=== PATIENT | female | born 1985 | race Caucasian/White ===

== ENCOUNTER 2016-09-07 20:36 | Emergency (ER) | payer OTHER ==
[2016-09-07 20:47] VITALS: RESP 16
[2016-09-07] MEDS ORDERED: SODIUM CHLORIDE 0.9% 1,000 ML IV STA (20:49)
--- NOTE | 2016-09-07 20:54 | ED ---
General Adult HPI - General Chief complaint: Overdose Stated complaint: Drug Overdose Time Seen by Provider: 09/07/16 20:46 Source: patient, EMS, RN notes reviewed Mode of arrival: EMS Limitations: no limitations - History of Present Illness Initial comments: Patient is a 31-year-old female presenting to emergency department for overdose. Patient believes she mixed fentanyl with heroin and then injected it. Patient was found unresponsive by EMS and provided Narcan. Patient then became responsive. Patient states she feels terrible and nauseated at this time. Patient admits to doing intravenous heroin previously. Patient denies suicidal thoughts or physical complaints. - Related Data Home Medications Medication Instructions Recorded Confirmed Warfarin [Coumadin] 5 mg PO HS 09/06/15 09/07/16 Allergies Allergy/AdvReac Type Severity Reaction Status Date / Time chlordiazepoxide HCl Allergy Unknown Verified 09/07/16 21:32 [From Librium] ketorolac tromethamine Allergy PANIC Verified 09/07/16 21:32 [From Toradol] ATTACK Penicillins Allergy Rash/Hives Verified 09/07/16 21:32 prochlorperazine edisylate Allergy PANIC Verified 09/07/16 21:32 [From Compazine] ATTACK prochlorperazine maleate Allergy PANIC Verified 09/07/16 21:32 [From Compazine] ATTACK Review of Systems ROS Statement: Those systems with pertinent positive or pertinent negative responses have been documented in the HPI. ROS Other: All systems not noted in ROS Statement are negative. Constitutional: Denies: fever, chills Eyes: Denies: eye pain ENT: Denies: ear pain Respiratory: Denies: cough Cardiovascular: Denies: chest pain Endocrine: Denies: fatigue Gastrointestinal: Reports: nausea. Denies: abdominal pain Genitourinary: Denies: dysuria Musculoskeletal: Reports: back pain (Chronic and unchanged) Skin: Denies: rash Neurological: Denies: headache Past Medical History Past Medical History: CVA/TIA, Liver Disease, Osteoarthritis (OA), Pneumonia, Vascular Disorder Additional Past Medical History / Comment(s): marfan's syndrome, ArnoldChiari malformation, spontaneous pneumothorax x 21, scoliosis, back pain, bilateral leg pain, MVR, sinus infections, STATED HAS POOR CIRCULATION, viral meningitis, HEP C. History of Any Multi-Drug Resistant Organisms: MRSA Date of last positivie culture/infection: 05/05/2010 MDRO Source:: back per patient Past Surgical History: Cardiac Valve Replacement, Coronary Bypass/CABG, Joint Replacement Additional Past Surgical History / Comment(s): left upper lobe remove age 16, left hip fracture-ORIF, right foot corrective surgery, R shoulder surgery following injury, CABG x4 vessel, aortic grafts,aortic valve replaced as child ( 2 separate surgeries), tiffani lens removed. Past Anesthesia/Blood Transfusion Reactions: No Reported Reaction Past Psychological History: Anxiety Additional Psychological History / Comment(s): PT STATED SHE IS HOMELESS BUT UNCLE IS LETTING HER STAY WITH HIM. Smoking Status: Current every day smoker Past Alcohol Use History: None Reported Additional Past Alcohol Use History / Comment(s): STARTED SMOKING AT AGE 14 SMOKES 1.5 PPD-SMOKING CESSATION BOOKLET GIVEN TO PT Past Drug Use History: Heroin, IV Drug Use, Marijuana, Opiates Additional Drug Use History / Comment(s): Pt states she has used heroin, cocaine and marijuana but cannot recall date of last used. "I don't know." - Past Family History Father Additional Family Medical History / Comment(s): FROM ETOH ABUSE, LIVER FALURE Mother Family Medical History: Diabetes Mellitus General Exam Limitations: no limitations General appearance: alert, in no apparent distress Head exam: Present: atraumatic Eye exam: Present: normal appearance, PERRL ENT exam: Present: mucous membranes dry Neck exam: Present: normal inspection Respiratory exam: Present: normal lung sounds bilaterally Cardiovascular Exam: Present: regular rate, normal rhythm, systolic murmur GI/Abdominal exam: Present: soft. Absent: tenderness Extremities exam: Present: normal inspection Neurological exam: Present: alert Psychiatric exam: Present: agitated Skin exam: Absent: rash Course Vital Signs 09/07/16 09/07/16 09/07/16 20:43 21:29 22:19 Temperature 101.3 F H 99.3 F Pulse Rate 103 H 102 H 98 Respiratory 16 16 16 Rate Blood Pressure 157/83 129/69 139/70 O2 Sat by Pulse 97 97 97 Oximetry EKG Findings - EKG Comments: EKG Findings:: Atrial rhythm at 102. [place] 212. QRS 98. QT 3:30. QTC 4:30. Right axis. LVH. Nonspecific ST-T. Medical Decision Making - Medical Decision Making Patient examined and resting comfortably in bed. Patient is alert and appropriate. Patient advised admission for further evaluation of fever and possible sepsis and possible endocarditis. Patient is made aware that his could be serious and life-threatening. Patient does make appropriate medical decision making and will leave AGAINST MEDICAL ADVICE. - Lab Data Result diagrams: 09/07/16 20:45 09/07/16 20:45 Lab Results 09/07/16 09/07/16 09/07/16 Range/Units 20:45 20:45 20:45 WBC 11.0 H (3.8-10.6) k/uL RBC 4.84 (3.80-5.40) m/uL Hgb 13.1 (11.4-16.0) gm/dL Hct 42.8 (34.0-46.0) % MCV 88.4 (80.0-100.0) fL MCH 27.1 (25.0-35.0) pg MCHC 30.7 L (31.0-37.0) g/dL RDW 16.1 H (11.5-15.5) % Plt Count 235 (150-450) k/uL Neutrophils % 93 % Lymphocytes % 2 % Monocytes % 3 % Eosinophils % 0 % Basophils % 1 % Neutrophils # 10.2 H (1.3-7.7) k/uL Lymphocytes # 0.3 L (1.0-4.8) k/uL Monocytes # 0.3 (0-1.0) k/uL Eosinophils # 0.0 (0-0.7) k/uL Basophils # 0.1 (0-0.2) k/uL Hypochromasia Slight Anisocytosis Slight PT 10.7 (9.0-12.0) sec INR 1.1 (<1.1) APTT 23.2 (22.0-30.0) sec Sodium 141 (137-145) mmol/L Potassium 3.8 (3.5-5.1) mmol/L Chloride 103 (98-107) mmol/L Carbon Dioxide 24 (22-30) mmol/L Anion Gap 14 mmol/L BUN 12 (7-17) mg/dL Creatinine 0.76 (0.52-1.04) mg/dL Est GFR (MDRD) Af Amer >60 (>60 ml/min/1.73 sqM) Est GFR (MDRD) Non-Af >60 (>60 ml/min/1.73 sqM) Glucose 182 H (74-99) mg/dL Calcium 8.6 (8.4-10.2) mg/dL Total Bilirubin 0.6 (0.2-1.3) mg/dL AST 43 H (14-36) U/L ALT 35 (9-52) U/L Alkaline Phosphatase 118 (38-126) U/L Total Protein 7.2 (6.3-8.2) g/dL Albumin 4.1 (3.5-5.0) g/dL Urine Color Urine Appearance (Clear) Urine pH (5.0-8.0) Ur Specific [place] (1.001-1.035) Urine Protein (Negative) Urine Glucose (UA) (Negative) Urine Ketones (Negative) Urine Blood (Negative) Urine Nitrate (Negative) Urine Bilirubin (Negative) Urine Urobilinogen (<2.0) mg/dL Ur Leukocyte Esterase (Negative) Urine RBC (0-5) /hpf Urine WBC (0-5) /hpf Ur Squamous Epith Cells (0-4) /hpf Urine Bacteria (None) /hpf Urine Mucus (None) /hpf Urine HCG, Qual (Not Detectd) Salicylates <1.0 mg/dL Urine Opiates Screen (NotDetected) Ur Oxycodone Screen (NotDetected) Urine Methadone Screen (NotDetected) Ur Propoxyphene Screen (NotDetected) Acetaminophen <10.0 ug/mL Ur Barbiturates Screen (NotDetected) U Tricyclic Antidepress (NotDetected) Ur Phencyclidine Scrn (NotDetected) Ur Amphetamines Screen (NotDetected) U Methamphetamines Scrn (NotDetected) U Benzodiazepines Scrn (NotDetected) Urine Cocaine Screen (NotDetected) U Marijuana (THC) Screen (NotDetected) Serum Alcohol <10 mg/dL Influenza Type A RNA (Not Detectd) Influenza Type B (PCR) (Not Detectd) 09/07/16 09/07/16 09/07/16 Range/Units 20:45 20:45 20:45 WBC (3.8-10.6) k/uL RBC (3.80-5.40) m/uL Hgb (11.4-16.0) gm/dL Hct (34.0-46.0) % MCV (80.0-100.0) fL MCH (25.0-35.0) pg MCHC (31.0-37.0) g/dL RDW (11.5-15.5) % Plt Count (150-450) k/uL Neutrophils % % Lymphocytes % % Monocytes % % Eosinophils % % Basophils % % Neutrophils # (1.3-7.7) k/uL Lymphocytes # (1.0-4.8) k/uL Monocytes # (0-1.0) k/uL Eosinophils # (0-0.7) k/uL Basophils # (0-0.2) k/uL Hypochromasia Anisocytosis PT (9.0-12.0) sec INR (<1.1) APTT (22.0-30.0) sec Sodium (137-145) mmol/L Potassium (3.5-5.1) mmol/L Chloride (98-107) mmol/L Carbon Dioxide (22-30) mmol/L Anion Gap mmol/L BUN (7-17) mg/dL Creatinine (0.52-1.04) mg/dL Est GFR (MDRD) Af Amer (>60 ml/min/1.73 sqM) Est GFR (MDRD) Non-Af (>60 ml/min/1.73 sqM) Glucose (74-99) mg/dL Calcium (8.4-10.2) mg/dL Total Bilirubin (0.2-1.3) mg/dL AST (14-36) U/L ALT (9-52) U/L Alkaline Phosphatase (38-126) U/L Total Protein (6.3-8.2) g/dL Albumin (3.5-5.0) g/dL Urine Color Light Yellow Urine Appearance Clear (Clear) Urine pH 6.5 (5.0-8.0) Ur Specific [place] 1.009 (1.001-1.035) Urine Protein 1+ H (Negative) Urine Glucose (UA) 1+ H (Negative) Urine Ketones Negative (Negative) Urine Blood Negative (Negative) Urine Nitrate Negative (Negative) Urine Bilirubin Negative (Negative) Urine Urobilinogen <2.0 (<2.0) mg/dL Ur Leukocyte Esterase Negative (Negative) Urine RBC 1 (0-5) /hpf Urine WBC 2 (0-5) /hpf Ur Squamous Epith Cells 3 (0-4) /hpf Urine Bacteria Rare H (None) /hpf Urine Mucus Rare H (None) /hpf Urine HCG, Qual Not Detected (Not Detectd) Salicylates mg/dL Urine Opiates Screen Not Detected (NotDetected) Ur Oxycodone Screen Not Detected (NotDetected) Urine Methadone Screen Not Detected (NotDetected) Ur Propoxyphene Screen Not Detected (NotDetected) Acetaminophen ug/mL Ur Barbiturates Screen Not Detected (NotDetected) U Tricyclic Antidepress Not Detected (NotDetected) Ur Phencyclidine Scrn Not Detected (NotDetected) Ur Amphetamines Screen Not Detected (NotDetected) U Methamphetamines Scrn Not Detected (NotDetected) U Benzodiazepines Scrn Not Detected (NotDetected) Urine Cocaine Screen Detected H (NotDetected) U Marijuana (THC) Screen Not Detected (NotDetected) Serum Alcohol mg/dL Influenza Type A RNA Not Detected (Not Detectd) Influenza Type B (PCR) Not Detected (Not Detectd) - Radiology Data Radiology results: image reviewed (Chest x-ray shows chronic changes without acute process.) Disposition Clinical Impression: Drug overdose Disposition: Left Against Medical Advice Instructions: Adult Overdose (ED), Opioid Overdose (ED), Narcotic Abuse (ED), Cocaine Abuse (ED), Fever in Adults (ED) Additional Instructions: Discontinue drug use. Follow-up with primary care physician tomorrow. Return for fevers, cough, difficulty breathing or change in mental status, worsening symptoms or other concerns. Referrals: None,Stated [Primary Care Provider] - 1-2 days Karina Chand MD [STAFF PHYSICIAN] - 1-2 days
[2016-09-07 21:38] LABS: Anisocytosis Slight; Basophils # (A) 0.1 k/uL (0-0.2); Basophils % (A) 1 %; CH 27.5; CHCM 31.3; Eosinophils % (A) 0 %; HCT 42.8 % (34.0-46.0); HDW 2.95; HGB 13.1 gm/dL (11.4-16.0); Hypochromasia Slight; Luc # (Auto) 0.03; Luc % (Auto) 0; Lymphocytes # (A) 0.3 k/uL (1.0-4.8); Lymphocytes % (A) 2 %; MCH 27.1 pg (25.0-35.0); MCHC 30.7 g/dL (31.0-37.0); MCV 88.4 fL (80.0-100.0); Mean Platelet Volume 7.3; Monocytes # (A) 0.3 k/uL (0-1.0); Monocytes % (A) 3 %; Neutrophils # (A) 10.2 k/uL (1.3-7.7); Neutrophils % (A) 93 %; RBC 4.84 m/uL (3.80-5.40); RDW 16.1 % (11.5-15.5); WBC (Perox) 11.87
[2016-09-07 21:41] LABS: Appearance,Urine Clear (Clear); Bacteria,Urine Rare /hpf; Bilirubin,Urine Negative (Negative); Glucose,Urine (UA) 1+ (Negative); Ketones,Urine Negative (Negative); Leukocyte Esterase,Urine Negative (Negative); Mucus,Urine Rare /hpf; Nitrite,Urine Negative (Negative); PH, Urine 6.5 (5.0-8.0); Particle Count 3319; Protein,Urine 1+ (Negative); RBC,Urine 1 /hpf (0-5); Specific Gravity,Urine 1.009 (1.001-1.035); Squamous Epithelial Cell,Urine 3 /hpf (0-4); UA Billing (MACRO vs. MICRO) MICRO; Urobilinogen,Urine <2.0 mg/dL (<2.0); WBC,Urine 2 /hpf (0-5)
[2016-09-07 21:47] LABS: ALT 35 U/L (9-52); AST 43 U/L (14-36); Acetaminophen <10.0 ug/mL; Alcohol <10 mg/dL; Alkaline Phosphatase 118 U/L (38-126); Anion Gap 14 mmol/L; Blood Urea Nitrogen 12 mg/dL (7-17); Calcium 8.6 mg/dL (8.4-10.2); Carbon Dioxide 24 mmol/L (22-30); Chloride 103 mmol/L (98-107); Glucose 182 mg/dL (74-99); Non-African American GFR(MDRD) >60 (>60 ml/min/1.73 sqM); Potassium 3.8 mmol/L (3.5-5.1); Salicylate <1.0 mg/dL; Sodium 141 mmol/L (137-145); Total Bilirubin 0.6 mg/dL (0.2-1.3); Total Protein 7.2 g/dL (6.3-8.2)
--- NOTE | 2016-09-07 21:48 | XR ---
EXAMINATION TYPE: XR chest 2V DATE OF EXAM: 09/07/2016 9:41 PM COMPARISON: 08/17/2016 HISTORY: Fever TECHNIQUE: Frontal and lateral views of the chest are obtained. FINDINGS: Heart is enlarged. Lungs are clear of consolidation. There is no pleural effusion. There a re sternal wires. There are no hilar masses. Upper thoracic levoscoliosis. There is left upper lobe d ensity consistent with scarring. There is a thoracolumbar kyphotic curvature. There is no heart failu re. Bilateral nipple shadows are noted. IMPRESSION: Cardiomegaly. No pulmonary consolidation or heart failure. No significant change compare d to last exam. Thoracic kyphoscoliosis.
[2016-09-07 21:51] LABS: INR 1.1 (<1.1); Partial Thromboplastin Time 23.2 sec (22.0-30.0); Prothrombin Time 10.7 sec (9.0-12.0)
[2016-09-07 22:21] VITALS: BP 139/70; PULSE 98; TEMP 99.3
== END 2016-09-07 23:02 | disposition left against medical advice (07) ==
LOC: EC 20:36
DX: T40.1X1A Poisoning by heroin, accidental (unintentional), initial encounter (principal); T40.4X1A Poisoning by other synthetic narcotics, accidental (unintentional), initial encounter; Z53.21 Procedure and treatment not carried out due to patient leaving prior to being seen by health care provider; B19.20 Unspecified viral hepatitis C without hepatic coma; F11.90 Opioid use, unspecified, uncomplicated; F12.90 Cannabis use, unspecified, uncomplicated; F14.90 Cocaine use, unspecified, uncomplicated; Z95.1 Presence of aortocoronary bypass graft; F17.200 Nicotine dependence, unspecified, uncomplicated; Z88.0 Allergy status to penicillin; Z88.8 Allergy status to other drugs, medicaments and biological substances; Z86.73 Personal history of transient ischemic attack (TIA), and cerebral infarction without residual deficits; Z95.2 Presence of prosthetic heart valve; Z79.01 Long term (current) use of anticoagulants
CPT/HCPCS: 36415; 71020; 80053; 80306; 80320; 81001; 81025; 83520; 85025; 85610; 85730; 87086; 87502; 93005; 96360; 99285

== ENCOUNTER 2016-10-15 19:28 | Emergency (ER) | payer OTHER ==
[2016-10-15 19:55] VITALS: BP 140/66; PULSE 98; RESP 18; TEMP 97.8
--- NOTE | 2016-10-15 21:34 | ED ---
General Adult HPI - General Chief complaint: Back Pain/Injury Stated complaint: Pain in lower Extremities Time Seen by Provider: 10/15/16 21:15 Source: patient, RN notes reviewed Mode of arrival: ambulatory Limitations: no limitations - History of Present Illness Initial comments: This is a 31-year-old female presents with chronic lower back pain. Patient states that she has been hurting worse today. Patient states she's tried Tylenol but this has not helped. Patient did not follow-up with the primary care physician as advised at her last EC visit because she states she does not have a license. Patient did not fall or injure her back. Patient denies any change in bowel or bladder function or loss of sensation in the saddle area. Patient states she does have radicular pain down both legs but this is not new for her. Patient denies any numbness or tingling or weakness. Patient is able to ambulate. Patient denies any recent fever, chills, shortness breath, chest pain, abdominal pain, nausea/vomiting/diarrhea, back pain, hematuria, headache, or visual changes, or any other complaints. - Related Data Home Medications Medication Instructions Recorded Confirmed No Known Home Medications [No 09/18/16 09/18/16 Known Home Medications] Allergies Allergy/AdvReac Type Severity Reaction Status Date / Time chlordiazepoxide HCl Allergy Unknown Verified 10/15/16 19:55 [From Librium] ketorolac tromethamine Allergy PANIC Verified 10/15/16 19:55 [From Toradol] ATTACK Penicillins Allergy Rash/Hives Verified 10/15/16 19:55 prochlorperazine edisylate Allergy PANIC Verified 10/15/16 19:55 [From Compazine] ATTACK prochlorperazine maleate Allergy PANIC Verified 10/15/16 19:55 [From Compazine] ATTACK Review of Systems ROS Statement: Those systems with pertinent positive or pertinent negative responses have been documented in the HPI. ROS Other: All systems not noted in ROS Statement are negative. Past Medical History Past Medical History: CVA/TIA, Liver Disease, Osteoarthritis (OA), Pneumonia, Vascular Disorder Additional Past Medical History / Comment(s): marfan's syndrome, ArnoldChiari malformation, spontaneous pneumothorax x 21, scoliosis, back pain, bilateral leg pain, MVR, sinus infections, STATED HAS POOR CIRCULATION, viral meningitis, HEP C. History of Any Multi-Drug Resistant Organisms: MRSA Date of last positivie culture/infection: 05/05/2010 MDRO Source:: back per patient Past Surgical History: Cardiac Valve Replacement, Coronary Bypass/CABG, Joint Replacement Additional Past Surgical History / Comment(s): left upper lobe remove age 16, left hip fracture-ORIF, right foot corrective surgery, R shoulder surgery following injury, CABG x4 vessel, aortic grafts,aortic valve replaced as child ( 2 separate surgeries), tiffani lens removed. Past Anesthesia/Blood Transfusion Reactions: No Reported Reaction Past Psychological History: Anxiety Additional Psychological History / Comment(s): PT STATED SHE IS HOMELESS BUT UNCLE IS LETTING HER STAY WITH HIM. Smoking Status: Current every day smoker Past Alcohol Use History: None Reported Additional Past Alcohol Use History / Comment(s): STARTED SMOKING AT AGE 14 SMOKES 1.5 PPD-SMOKING CESSATION BOOKLET GIVEN TO PT Past Drug Use History: Heroin, IV Drug Use, Marijuana, Opiates Additional Drug Use History / Comment(s): Pt states she has used heroin, cocaine and marijuana but cannot recall date of last used. "I don't know." - Past Family History Father Additional Family Medical History / Comment(s): FROM ETOH ABUSE, LIVER FALURE Mother Family Medical History: Diabetes Mellitus General Exam - General Exam Comments Initial Comments: General: The patient is awake and alert, in no distress, and does not appear acutely ill. Neck: The neck is supple, there is no tenderness or JVD. Cardiovascular: There is a regular rate and rhythm. No murmur, rub or gallop is appreciated. Respiratory: Lungs are clear to auscultation, respirations are non-labored, breath sounds are equal. No wheezes, stridor, rales, or rhonchi. Musculoskeletal: There is some mild discomfort to palpation of the lumbar spine. No step-off or deformity. Scoliosis of the spine. Marfan's appearance. Negative straight leg raise. Full range of motion, strength 5/5 and Sensation intact. Radial pulses 2+ bilaterally. Neurological: A&O x 3. CN II-XII intact, There are no obvious motor or sensory deficits. Coordination appears grossly intact. Speech is normal. Skin: Small abrasion to the back. Excoriations to the back. Skin is warm and dry. Psychiatric: Normal mood and affect. Limitations: no limitations Course Vital Signs 10/15/16 19:53 Temperature 97.8 F Pulse Rate 98 Respiratory 18 Rate Blood Pressure 140/66 O2 Sat by Pulse 96 Oximetry Medical Decision Making - Medical Decision Making This is a 31-year-old female presents with chronic lower back pain. On physical exam there is some mild discomfort to palpation of the lumbar spine. No step-off or deformity. Scoliosis of the spine. Marfan's appearance. Full range of motion, strength 5/5 and Sensation intact. Radial pulses 2+ bilaterally. Patient is ambulating in EC without difficulty. Discussed continued use of Tylenol as needed for the pain. I discussed the importance of following up with her primary care physician for continued pain management. Discussed that patient will not be treated with narcotics today and she needs to follow-up with her family doctor. Patient will be discharged home. At this time patient left without discharge instructions. Disposition Clinical Impression: Chronic back pain Disposition: HOME SELF-CARE Condition: Good Instructions: Chronic Back Pain (ED) Additional Instructions: Please follow-up with your family physician for pain management. Continue use [id number] Tylenol or Motrin for pain. Referrals: None,Stated [Primary Care Provider] - 1-2 days Karina Chand MD [STAFF PHYSICIAN] - 1-2 days Time of Disposition: 21:43
== END 2016-10-15 21:45 | disposition home or self-care (01) ==
LOC: EC 19:28
DX: G89.29 Other chronic pain (principal); M54.5 Low back pain; F17.200 Nicotine dependence, unspecified, uncomplicated; Z88.6 Allergy status to analgesic agent; Z88.0 Allergy status to penicillin; Z88.8 Allergy status to other drugs, medicaments and biological substances
CPT/HCPCS: 99283

== ENCOUNTER 2016-10-22 14:27 | Emergency (ER) | payer OTHER ==
[2016-10-22 14:36] VITALS: BP 130/75; PULSE 92; RESP 16; TEMP 97.3
[2016-10-22] MEDS ORDERED: Acetaminophen-Codeine 300-30mg TAB PO STA (14:56)
--- NOTE | 2016-10-22 14:58 | ED ---
Back Pain HPI - General Chief Complaint: Back Pain/Injury Stated Complaint: leg & back pain Time Seen by Provider: 10/22/16 14:39 Source: patient, RN notes reviewed Limitations: no limitations - History of Present Illness Initial Comments: Patient is a 31-year-old female presents to the emergency room for evaluation of chronic low back pain. Patient states that she began having increasing low back pain over the past few days. Patient denies any recent falls or trauma to her back. Patient is taking Tylenol with no relief of symptoms. Patient denies falling up with a primary care provider yet. Patient denies saddle anesthesia. Patient denies numbness or tingling down her extremities. Patient denies fecal or urinary incontinence. - Related Data Home Medications Medication Instructions Recorded Confirmed No Known Home Medications [No 09/18/16 10/22/16 Known Home Medications] Allergies Allergy/AdvReac Type Severity Reaction Status Date / Time chlordiazepoxide HCl Allergy Unknown Verified 10/22/16 14:36 [From Librium] ketorolac tromethamine Allergy PANIC Verified 10/22/16 14:36 [From Toradol] ATTACK Penicillins Allergy Rash/Hives Verified 10/22/16 14:36 prochlorperazine edisylate Allergy PANIC Verified 10/22/16 14:36 [From Compazine] ATTACK prochlorperazine maleate Allergy PANIC Verified 10/22/16 14:36 [From Compazine] ATTACK Review of Systems ROS Statement: Those systems with pertinent positive or pertinent negative responses have been documented in the HPI. ROS Other: All systems not noted in ROS Statement are negative. Past Medical History Past Medical History: CVA/TIA, Liver Disease, Osteoarthritis (OA), Pneumonia, Vascular Disorder Additional Past Medical History / Comment(s): marfan's syndrome, ArnoldChiari malformation, spontaneous pneumothorax x 21, scoliosis, back pain, bilateral leg pain, MVR, sinus infections, STATED HAS POOR CIRCULATION, viral meningitis, HEP C. History of Any Multi-Drug Resistant Organisms: MRSA Date of last positivie culture/infection: 05/05/2010 MDRO Source:: back per patient Past Surgical History: Cardiac Valve Replacement, Coronary Bypass/CABG, Joint Replacement Additional Past Surgical History / Comment(s): left upper lobe remove age 16, left hip fracture-ORIF, right foot corrective surgery, R shoulder surgery following injury, CABG x4 vessel, aortic grafts,aortic valve replaced as child ( 2 separate surgeries), tiffani lens removed. Past Anesthesia/Blood Transfusion Reactions: No Reported Reaction Past Psychological History: Anxiety Additional Psychological History / Comment(s): PT STATED SHE IS HOMELESS BUT UNCLE IS LETTING HER STAY WITH HIM. Smoking Status: Current every day smoker Past Alcohol Use History: None Reported Additional Past Alcohol Use History / Comment(s): STARTED SMOKING AT AGE 14 SMOKES 1.5 PPD-SMOKING CESSATION BOOKLET GIVEN TO PT Past Drug Use History: Heroin, IV Drug Use, Marijuana, Opiates Additional Drug Use History / Comment(s): Pt states she has used heroin, cocaine and marijuana but cannot recall date of last used. "I don't know." - Past Family History Father Additional Family Medical History / Comment(s): FROM ETOH ABUSE, LIVER FALURE Mother Family Medical History: Diabetes Mellitus General Exam - General Exam Comments Initial Comments: Sitting in exam room in no acute distress. Limitations: no limitations General appearance: alert, in no apparent distress Head exam: Present: atraumatic, normocephalic, normal inspection Eye exam: Present: normal appearance ENT exam: Present: normal exam Neck exam: Present: normal inspection Respiratory exam: Absent: respiratory distress Extremities exam: Present: normal inspection, normal capillary refill, other (5/ 5 strength in upper/lower extremities) Back exam: Present: vertebral tenderness (lumbosacral spine tenderness). Absent : muscle spasm, paraspinal tenderness Neurological exam: Present: alert, oriented X3, CN II-XII intact, normal gait Psychiatric exam: Present: normal affect, normal mood Skin exam: Present: warm, dry, intact, normal color. Absent: rash Course Vital Signs 10/22/16 14:34 Temperature 97.3 F L Pulse Rate 92 Respiratory 16 Rate Blood Pressure 130/75 O2 Sat by Pulse 100 Oximetry Medical Decision Making - Medical Decision Making Patient is a 31-year-old female presents to the emergency room for evaluation of chronic low back pain. I did discussed with patient that she needs to follow up with primary care provider for pain medication. Patient will not be sent home with no prescriptions at this time. Patient states she understands and was discussed with her. Return parameters discussed. Case discussed with Dr. Farah. Disposition Clinical Impression: Chronic back pain Disposition: HOME SELF-CARE Condition: Good Instructions: Chronic Back Pain (ED) Additional Instructions: Please follow up with primary care provider. If any new symptom arises or symptoms worsen, return to ER as soon as possible. Referrals: Barby King MD [REFERRING] - 1-2 days Time of Disposition: 14:57
== END 2016-10-22 15:10 | disposition home or self-care (01) ==
LOC: EC 14:27
DX: G89.29 Other chronic pain (principal); M54.5 Low back pain; F17.200 Nicotine dependence, unspecified, uncomplicated; Z88.0 Allergy status to penicillin; Z88.6 Allergy status to analgesic agent; Z88.8 Allergy status to other drugs, medicaments and biological substances
CPT/HCPCS: 99283

== ENCOUNTER 2016-10-23 13:57 | Emergency (ER) | payer OTHER ==
[2016-10-23 14:28] VITALS: BP 134/60; PULSE 90; RESP 16; TEMP 97.5
[2016-10-23] MEDS ORDERED: predniSONE 20 MG TAB PO STA (14:44)
--- NOTE | 2016-10-23 14:46 | ED ---
General Adult HPI - General Chief complaint: Back Pain/Injury Stated complaint: Leg Pain/Back Pain Time Seen by Provider: 10/23/16 14:24 Source: patient, RN notes reviewed Mode of arrival: ambulatory Limitations: no limitations - History of Present Illness Initial comments: Patient is a 31-year-old female presents to the emergency room for evaluation of chronic back pain and right foot tingling. Patient has been here multiple times for the same issue. Patient was here earlier this morning her right foot paresthesias. Patient was advised to follow-up with primary care provider. Patient states she does not have a primary care provider follow-up with. Patient states Tylenol is not helping her pain at home. Patient states she still feeling numb on the top of her right foot. Patient denies saddle anesthesia. Patient denies urinary or fecal incontinence. Patient denies recent injuries or falls. - Related Data Home Medications Medication Instructions Recorded Confirmed Warfarin [Coumadin] 5 mg PO HS 10/23/16 10/23/16 Previous Rx's Medication Instructions Recorded predniSONE 40 mg PO DAILY 4 Days 10/23/16 Allergies Allergy/AdvReac Type Severity Reaction Status Date / Time chlordiazepoxide HCl Allergy Unknown Verified 10/23/16 14:49 [From Librium] ketorolac tromethamine Allergy PANIC Verified 10/23/16 14:49 [From Toradol] ATTACK Penicillins Allergy Rash/Hives Verified 10/23/16 14:49 prochlorperazine edisylate Allergy PANIC Verified 10/23/16 14:49 [From Compazine] ATTACK prochlorperazine maleate Allergy PANIC Verified 10/23/16 14:49 [From Compazine] ATTACK Review of Systems ROS Statement: Those systems with pertinent positive or pertinent negative responses have been documented in the HPI. ROS Other: All systems not noted in ROS Statement are negative. Past Medical History Past Medical History: CVA/TIA, Liver Disease, Osteoarthritis (OA), Pneumonia, Vascular Disorder Additional Past Medical History / Comment(s): marfan's syndrome, ArnoldChiari malformation, spontaneous pneumothorax x 21, scoliosis, back pain, bilateral leg pain, MVR, sinus infections, STATED HAS POOR CIRCULATION, viral meningitis, HEP C. History of Any Multi-Drug Resistant Organisms: MRSA Date of last positivie culture/infection: 05/05/2010 MDRO Source:: back per patient Past Surgical History: Cardiac Valve Replacement, Coronary Bypass/CABG, Joint Replacement Additional Past Surgical History / Comment(s): left upper lobe remove age 16, left hip fracture-ORIF, right foot corrective surgery, R shoulder surgery following injury, CABG x4 vessel, aortic grafts,aortic valve replaced as child ( 2 separate surgeries), tiffani lens removed. Past Anesthesia/Blood Transfusion Reactions: No Reported Reaction Past Psychological History: Anxiety Additional Psychological History / Comment(s): PT STATED SHE IS HOMELESS BUT UNCLE IS LETTING HER STAY WITH HIM. Smoking Status: Current every day smoker Past Alcohol Use History: None Reported Additional Past Alcohol Use History / Comment(s): STARTED SMOKING AT AGE 14 SMOKES 1.5 PPD-SMOKING CESSATION BOOKLET GIVEN TO PT Past Drug Use History: Heroin, IV Drug Use, Marijuana, Opiates Additional Drug Use History / Comment(s): Pt states she has used heroin, cocaine and marijuana but cannot recall date of last used. "I don't know." - Past Family History Father Additional Family Medical History / Comment(s): FROM ETOH ABUSE, LIVER FALURE Mother Family Medical History: Diabetes Mellitus General Exam - General Exam Comments Initial Comments: Sitting in exam room, no acute distress. Limitations: no limitations General appearance: alert, in no apparent distress Head exam: Present: atraumatic, normocephalic, normal inspection Eye exam: Present: normal appearance ENT exam: Present: normal exam Neck exam: Present: normal inspection Respiratory exam: Absent: respiratory distress Extremities exam: Present: normal inspection Right Foot/Toe exam: Present: full ROM (5/5 strength). Absent: tenderness, swelling Neurovascular tendon exam: Present: no vascular compromise. Absent: pulse deficit (2+ dorsal pedal and posterior tibial pulses), abnormal cap refill ( Capillary refill less than 2 seconds), extremity cold to touch Back exam: Present: normal inspection Neurological exam: Present: alert, oriented X3, CN II-XII intact, normal gait Psychiatric exam: Present: normal affect, normal mood Skin exam: Present: warm, dry, intact, normal color. Absent: rash Course Vital Signs 10/23/16 14:26 Temperature 97.5 F L Pulse Rate 90 Respiratory 16 Rate Blood Pressure 134/60 O2 Sat by Pulse 99 Oximetry Medical Decision Making - Medical Decision Making Patient is a 31-year-old female presents to the emergency room for evaluation of chronic pain and right leg paresthesia. Patient still has sensation of her right foot, 5 out of 5 strength, capillary refill less than 2 seconds. Patient has no neuro deficits. Discussed with patient that she would not be receiving any narcotic medications at this time. Discussed with patient that we can try prednisone to see if that improves her symptoms. Patient left before given discharge papers. Case discussed with Dr. Acevedo. Disposition Clinical Impression: Chronic back pain, Paresthesias Disposition: HOME SELF-CARE Condition: Good Instructions: Chronic Back Pain (ED), Paresthesia (ED) Additional Instructions: Take prednisone as directed. Please follow up with primary care provider in 1-2 days. If any new symptom arises or symptoms worsen, return to ER as soon as possible. Prescriptions: predniSONE 40 mg PO DAILY 4 Days Referrals: Barby King MD [REFERRING] - 1-2 days Time of Disposition: 14:43
== END 2016-10-23 15:10 | disposition home or self-care (01) ==
LOC: EC 13:57
DX: G89.29 Other chronic pain (principal); M54.9 Dorsalgia, unspecified; R20.2 Paresthesia of skin; Q87.40 Marfan syndrome, unspecified; Z95.2 Presence of prosthetic heart valve; Z95.1 Presence of aortocoronary bypass graft; F17.200 Nicotine dependence, unspecified, uncomplicated; Z79.01 Long term (current) use of anticoagulants; Z88.0 Allergy status to penicillin; Z88.5 Allergy status to narcotic agent; Z88.8 Allergy status to other drugs, medicaments and biological substances
CPT/HCPCS: 99283 ×2; J7512

== ENCOUNTER 2016-10-23 18:56 | Emergency (ER) | payer OTHER ==
[2016-10-23 19:34] VITALS: BP 144/65; PULSE 89; RESP 18; TEMP 98.1
--- NOTE | 2016-10-23 19:37 | ED ---
General Adult HPI - General Chief complaint: Recheck/Abnormal Lab/Rx Stated complaint: pain, having a hard time seeing out of left eye Time Seen by Provider: 10/23/16 19:28 Source: patient, RN notes reviewed Mode of arrival: ambulatory Limitations: no limitations - History of Present Illness Initial comments: This is a 31-year-old female who presents complaining of a black spots in the left eye. Patient describes it as seeing multiple black spots in the left eye off and on. Patient denies any injury or fall. Patient states she still has vision in the left eye. Patint states she's had both of her lenses taken out when she was younger and has chronically poor vision. Patient denies any headache. Patient denies any recent fever, chills, shortness breath, chest pain , abdominal pain, nausea/vomiting/diarrhea, back pain, numbness, tingling, hematuria, headache, or any other complaints. - Related Data Home Medications Medication Instructions Recorded Confirmed Warfarin [Coumadin] 5 mg PO HS 10/23/16 10/23/16 Previous Rx's Medication Instructions Recorded predniSONE 40 mg PO DAILY 4 Days 10/23/16 Allergies Allergy/AdvReac Type Severity Reaction Status Date / Time chlordiazepoxide HCl Allergy Unknown Verified 10/23/16 19:19 [From Librium] ketorolac tromethamine Allergy PANIC Verified 10/23/16 19:19 [From Toradol] ATTACK Penicillins Allergy Rash/Hives Verified 10/23/16 19:19 prochlorperazine edisylate Allergy PANIC Verified 10/23/16 19:19 [From Compazine] ATTACK prochlorperazine maleate Allergy PANIC Verified 10/23/16 19:19 [From Compazine] ATTACK Review of Systems ROS Statement: Those systems with pertinent positive or pertinent negative responses have been documented in the HPI. ROS Other: All systems not noted in ROS Statement are negative. Past Medical History Past Medical History: CVA/TIA, Liver Disease, Osteoarthritis (OA), Pneumonia, Vascular Disorder Additional Past Medical History / Comment(s): marfan's syndrome, ArnoldChiari malformation, spontaneous pneumothorax x 21, scoliosis, back pain, bilateral leg pain, MVR, sinus infections, STATED HAS POOR CIRCULATION, viral meningitis, HEP C. History of Any Multi-Drug Resistant Organisms: MRSA Date of last positivie culture/infection: 05/05/2010 MDRO Source:: back per patient Past Surgical History: Cardiac Valve Replacement, Coronary Bypass/CABG, Joint Replacement Additional Past Surgical History / Comment(s): left upper lobe remove age 16, left hip fracture-ORIF, right foot corrective surgery, R shoulder surgery following injury, CABG x4 vessel, aortic grafts,aortic valve replaced as child ( 2 separate surgeries), tiffani lens removed. Past Anesthesia/Blood Transfusion Reactions: No Reported Reaction Past Psychological History: Anxiety Additional Psychological History / Comment(s): PT STATED SHE IS HOMELESS BUT UNCLE IS LETTING HER STAY WITH HIM. Smoking Status: Current every day smoker Past Alcohol Use History: None Reported Additional Past Alcohol Use History / Comment(s): STARTED SMOKING AT AGE 14 SMOKES 1.5 PPD-SMOKING CESSATION BOOKLET GIVEN TO PT Past Drug Use History: Heroin, IV Drug Use, Marijuana, Opiates Additional Drug Use History / Comment(s): Pt states she has used heroin, cocaine and marijuana but cannot recall date of last used. "I don't know." - Past Family History Father Additional Family Medical History / Comment(s): FROM ETOH ABUSE, LIVER FALURE Mother Family Medical History: Diabetes Mellitus General Exam - General Exam Comments Initial Comments: General: The patient is awake and alert, in no distress, and does not appear acutely ill. Eye: Pupils are equal, round and reactive to light, extra-ocular movements are intact. No nystagmus. There is normal conjunctiva bilaterally. No signs of icterus. Visual acuity is 20/200 in both eyes and patient states this is chronic for her. No visual field loss on physical exam. Mouth and throat: There are moist mucous membranes and no oral lesions. Neck: The neck is supple, there is no tenderness or JVD. Cardiovascular: There is a regular rate and rhythm. No murmur, rub or gallop is appreciated. Respiratory: Lungs are clear to auscultation, respirations are non-labored, breath sounds are equal. No wheezes, stridor, rales, or rhonchi. Musculoskeletal: Normal ROM, no tenderness. Strength 5/5. Sensation intact. Radial pulses equal bilaterally 2+. Neurological: A&O x 3. CN II-XII intact, There are no obvious motor or sensory deficits. Coordination appears grossly intact. Speech is normal. Skin: Skin is warm and dry and no rashes or lesions are noted. Psychiatric: Cooperative, appropriate mood & affect, normal judgment. Limitations: no limitations Course Vital Signs 10/23/16 19:17 Temperature 98.1 F Pulse Rate 89 Respiratory 18 Rate Blood Pressure 144/65 O2 Sat by Pulse 98 Oximetry Medical Decision Making - Medical Decision Making This is a 31-year-old female who presents with complaints. On physical exam patient is neurologically intact. Patient complains of occasional black spots in the left eye. No pain with extraocular movements and extraocular movements are intact. Visual acuity is 20/200 but patient states this is chronic for her. Patient reports no decrease in vision. I discussed the patient will need follow-up with ophthalmology. Patient was given the on-call [facility] number. Discussed the patient is to call at 9 AM tomorrow. I discussed return parameters.Discussed that patient should follow up with PCP in one to 2 days or return to the [facility] for any worsening symptoms or for any further concerns. I discussed this case with attending physician Dr. Higginbotham who agrees the plan as stated above. Patient would not stay for discharge instructions. Disposition Clinical Impression: Vision disturbance Disposition: HOME SELF-CARE Condition: Good Instructions: Blurred Vision (ED) Additional Instructions: Please follow-up with ophthalmology tomorrow. Please follow-up with family doctor in the next 2 days of symptoms have not improved. Please return to emergency room if the symptoms increase or worsen or for any other concerns. Referrals: None,Stated [Primary Care Provider] - 1-2 days Barby King MD [REFERRING] - 1-2 days Lex Moses MD [STAFF PHYSICIAN] - 1-2 days Time of Disposition: 20:19
== END 2016-10-23 20:25 | disposition home or self-care (01) ==
LOC: EC 18:56
DX: H53.9 Unspecified visual disturbance (principal); F17.200 Nicotine dependence, unspecified, uncomplicated; Z59.0 Homelessness; Z88.0 Allergy status to penicillin; Z88.8 Allergy status to other drugs, medicaments and biological substances; Z79.01 Long term (current) use of anticoagulants; Z95.1 Presence of aortocoronary bypass graft; Z95.2 Presence of prosthetic heart valve; Z86.14 Personal history of Methicillin resistant Staphylococcus aureus infection; Z86.73 Personal history of transient ischemic attack (TIA), and cerebral infarction without residual deficits; Z79.52 Long term (current) use of systemic steroids
CPT/HCPCS: 99283

== ENCOUNTER 2017-02-11 20:03 | Emergency (ER) | payer OTHER ==
[2017-02-11 20:21] VITALS: RESP 18
--- NOTE | 2017-02-11 20:34 | ED ---
Fall HPI - General Chief Complaint: Fall Stated Complaint: Leg Pain Time Seen by Provider: 02/11/17 20:22 Source: patient, RN notes reviewed Mode of arrival: ambulatory Limitations: no limitations - History of Present Illness Initial Comments: 31-year-old female presents emergency Department with chief complaint of left leg pain. Patient states she fell a couple days ago and states that she has a large area of bruising and swelling. She states she has a very tortuous vein over this region. She has not been taking her Coumadin as directed. Patient denies any chest pain or shortness of breath but states that she did have some rib pain a few days ago. She was concerned about possible collapsed lung states that she is not having any difficulty breathing at this time. Patient states that there is no calf pain and no leg swelling to her lower aspect. Denies any paresthesias. - Related Data Home Medications Medication Instructions Recorded Confirmed Warfarin [Coumadin] 5 mg PO HS 10/23/16 10/27/16 Previous Rx's Medication Instructions Recorded predniSONE 40 mg PO DAILY 4 Days 10/23/16 Allergies Allergy/AdvReac Type Severity Reaction Status Date / Time chlordiazepoxide HCl Allergy Unknown Verified 02/11/17 20:21 [From Librium] ketorolac tromethamine Allergy PANIC Verified 02/11/17 20:21 [From Toradol] ATTACK Penicillins Allergy Rash/Hives Verified 02/11/17 20:21 prochlorperazine edisylate Allergy PANIC Verified 02/11/17 20:21 [From Compazine] ATTACK prochlorperazine maleate Allergy PANIC Verified 02/11/17 20:21 [From Compazine] ATTACK Review of Systems ROS Statement: Those systems with pertinent positive or pertinent negative responses have been documented in the HPI. ROS Other: All systems not noted in ROS Statement are negative. Past Medical History Past Medical History: CVA/TIA, Liver Disease, Osteoarthritis (OA), Pneumonia, Vascular Disorder Additional Past Medical History / Comment(s): marfan's syndrome, ArnoldChiari malformation, spontaneous pneumothorax x 21, scoliosis, back pain, bilateral leg pain, MVR, sinus infections, STATED HAS POOR CIRCULATION, viral meningitis, HEP C. "KYPHOSIS" History of Any Multi-Drug Resistant Organisms: MRSA Date of last positivie culture/infection: 05/05/2010 MDRO Source:: back per patient Past Surgical History: Cardiac Valve Replacement, Coronary Bypass/CABG, Joint Replacement Additional Past Surgical History / Comment(s): 10-27-16 I&D RT [employer] left upper lobe remove age 16, left hip fracture-ORIF, right foot corrective surgery, R shoulder surgery following injury, CABG x4 vessel, aortic grafts, aortic valve replaced as child (2 separate surgeries), tiffani lens removed. Past Anesthesia/Blood Transfusion Reactions: No Reported Reaction Past Psychological History: Anxiety Additional Psychological History / Comment(s): PT STATED HAS HX OF DEPRESSION BUT NO SUICIDAL THOUGHTS. PT CURRENTLY LIVING WITH HER BROTHER. his difficulties with her living situation because of her history of recreational drug use. Has been noncompliant with her medical therapy including her anticoagulation despite the fact she has a mechanical aortic valve in place. Smoking Status: Current every day smoker Past Alcohol Use History: None Reported Additional Past Alcohol Use History / Comment(s): STARTED SMOKING AT AGE 14 SMOKES 1.5 PPD-SMOKING CESSATION BOOKLET GIVEN TO PT Past Drug Use History: Heroin, IV Drug Use, Marijuana, Opiates Additional Drug Use History / Comment(s): Pt states she has used heroin, cocaine and marijuana but cannot recall date [facility] LAST LAST USED ANY DRUGS. " I don't kNOW, I THINK ABOUT 6 MONTHS AGO." - Past Family History Father Additional Family Medical History / Comment(s): FROM ETOH ABUSE, LIVER FALURE Mother Family Medical History: Diabetes Mellitus General Exam Limitations: no limitations General appearance: alert, in no apparent distress Neck exam: Present: normal inspection. Absent: tenderness, meningismus, lymphadenopathy Respiratory exam: Present: normal lung sounds bilaterally. Absent: respiratory distress, wheezes, rales, rhonchi, stridor, chest wall tenderness Cardiovascular Exam: Present: regular rate, normal rhythm, normal heart sounds. Absent: systolic murmur, diastolic murmur, rubs, gallop, clicks Extremities exam: Present: other (Left lower leg there is a very tortuous varicose pain noted of the upper leg that extends to the proximal lower leg. There is large area of ecchymosis and swelling which is tender over the varicosity. There is no erythema) Skin exam: Present: warm, dry, intact, normal color. Absent: rash Course Vital Signs 02/11/17 20:18 Temperature 99 F Pulse Rate 107 H Respiratory 18 Rate Blood Pressure 116/68 O2 Sat by Pulse 96 Oximetry Medical Decision Making - Medical Decision Making 31-year-old female presented emergency from for left leg pain. Patient has a tortuous varicosity. Patient's does have some ecchymosis over the region but there is no evidence of acute DVT. Patient states x-ray shows no acute changes no pneumothorax. Patient be discharged at this time. Disposition Clinical Impression: Fall, Varicose vein of leg, Traumatic ecchymosis of left lower leg Disposition: HOME SELF-CARE Condition: Stable Instructions: Varicose Veins (ED) Additional Instructions: Please return to the Emergency Department if symptoms worsen or any other concerns. Referrals: None,Stated [Primary Care Provider] - 1-2 days Time of Disposition: 21:36
--- NOTE | 2017-02-11 20:54 | XR ---
EXAMINATION TYPE: XR chest 2V DATE OF EXAM: 02/11/2017 COMPARISON: Chest x-ray September 07, 2016. HISTORY: Cough and chest pain. TECHNIQUE: Frontal and lateral views of the chest are obtained. FINDINGS: Sternal wires are again seen. Chronic parenchymal change with left apical linear scarring i s redemonstrated. There is no new focal air space opacity, pleural effusion, or pneumothorax seen. T he cardiac silhouette size is upper limits of normal currently. Underlying S-shaped scoliosis is pres ent. Multilevel ossific fusion is seen. There is exaggerated kyphosis near thoracolumbar junction. Po stsurgical change proximal right humerus is partially imaged. Chronic rib deformities bilaterally are noted. IMPRESSION: No acute process. No significant change from prior.
--- NOTE | 2017-02-11 21:16 | US ---
EXAMINATION TYPE: US venous doppler duplex LE LT DATE OF EXAM: 02/11/2017 9:04 PM COMPARISON: Left lower extremity venous ultrasound December 12, 2014. CLINICAL HISTORY: Pain. Bruising left lateral thigh over area of visible varicosities. SIDE PERFORMED: Left TECHNIQUE: The lower extremity deep venous system is examined utilizing real time linear array sonog blanca with graded compression, doppler sonography and color-flow sonography. VESSELS IMAGED: External Iliac Vein (EIV) Common Femoral Vein Deep Femoral Vein Greater Saphenous Vein * Femoral Vein Popliteal Vein Proximal Calf Veins (* superficial vessels) Scanned area over bruising, left lateral thigh and knee, tortuous but patent superficial or varicose veins are identified Left Leg: Negative for DVT Grayscale, color doppler, spectral doppler imaging performed of the deep veins of the left lower extr emity. There is normal flow, compressibility, vascular waveforms in the left lower extremity. IMPRESSION: No ultrasound evidence for acute DVT in the left lower extremity.
[2017-02-11] MEDS ORDERED: HYDROcodone/APAP 5-325MG 1 EACH TAB PO STA (21:38)
[2017-02-11 21:57] VITALS: BP 110/55; PULSE 96; TEMP 98
== END 2017-02-11 21:50 | disposition home or self-care (01) ==
LOC: EC 20:03
DX: S80.12XA Contusion of left lower leg, initial encounter (principal); I83.92 Asymptomatic varicose veins of left lower extremity; R07.81 Pleurodynia; F17.200 Nicotine dependence, unspecified, uncomplicated; Z79.01 Long term (current) use of anticoagulants; Z88.0 Allergy status to penicillin; Z88.6 Allergy status to analgesic agent; Z88.8 Allergy status to other drugs, medicaments and biological substances; Z86.73 Personal history of transient ischemic attack (TIA), and cerebral infarction without residual deficits; W19.XXXA Unspecified fall, initial encounter
CPT/HCPCS: 71020; 99284

== ENCOUNTER 2017-02-14 18:59 | Emergency (ER) | payer OTHER ==
[2017-02-14 19:15] VITALS: BP 124/65; PULSE 98; RESP 18; TEMP 99.4
[2017-02-14] MEDS ORDERED: Acetaminophen-Codeine 300-30mg TAB PO STA (19:20)
--- NOTE | 2017-02-14 19:20 | ED ---
Back Pain HPI - General Chief Complaint: Back Pain/Injury Stated Complaint: Back Pain Time Seen by Provider: 02/14/17 19:18 Source: patient, RN notes reviewed Limitations: no limitations - History of Present Illness Initial Comments: This a 31-year-old female presents emergency Department with chronic back pain. Patient is well-known emergency department has had several visits for same complaints. Patient denies any bowel bladder incontinence or retention. Patient does have multiple comorbidities and chronic pain. Patient states that she lost her PCP 4 months ago and was on chronic narcotics. Patient has no new trauma. Patient was recently seen in emergency from for left leg pain secondary to a injury. Patient has no abdominal pain denies fevers or chills. - Related Data Home Medications Medication Instructions Recorded Confirmed Warfarin [Coumadin] 5 mg PO HS 10/23/16 10/27/16 Previous Rx's Medication Instructions Recorded predniSONE 40 mg PO DAILY 4 Days 10/23/16 Allergies Allergy/AdvReac Type Severity Reaction Status Date / Time chlordiazepoxide HCl Allergy Unknown Verified 02/14/17 19:15 [From Librium] ketorolac tromethamine Allergy PANIC Verified 02/14/17 19:15 [From Toradol] ATTACK Penicillins Allergy Rash/Hives Verified 02/14/17 19:15 prochlorperazine edisylate Allergy PANIC Verified 02/14/17 19:15 [From Compazine] ATTACK prochlorperazine maleate Allergy PANIC Verified 02/14/17 19:15 [From Compazine] ATTACK Review of Systems ROS Statement: Those systems with pertinent positive or pertinent negative responses have been documented in the HPI. ROS Other: All systems not noted in ROS Statement are negative. Past Medical History Past Medical History: CVA/TIA, Liver Disease, Osteoarthritis (OA), Pneumonia, Vascular Disorder Additional Past Medical History / Comment(s): marfan's syndrome, ArnoldChiari malformation, spontaneous pneumothorax x 21, scoliosis, back pain, bilateral leg pain, MVR, sinus infections, STATED HAS POOR CIRCULATION, viral meningitis, HEP C. "KYPHOSIS" History of Any Multi-Drug Resistant Organisms: MRSA Date of last positivie culture/infection: 05/05/2010 MDRO Source:: back per patient Past Surgical History: Cardiac Valve Replacement, Coronary Bypass/CABG, Joint Replacement Additional Past Surgical History / Comment(s): 2-23-17 I&D RT FOREARM ABCESS left upper lobe remove age 16, left hip fracture-ORIF, right foot corrective surgery, R shoulder surgery following injury, CABG x4 vessel, aortic grafts, aortic valve replaced as child (2 separate surgeries), tiffani lens removed. Past Anesthesia/Blood Transfusion Reactions: No Reported Reaction Past Psychological History: Anxiety Additional Psychological History / Comment(s): PT STATED HAS HX OF DEPRESSION BUT NO SUICIDAL THOUGHTS. PT CURRENTLY LIVING WITH HER BROTHER. his difficulties with her living situation because of her history of recreational drug use. Has been noncompliant with her medical therapy including her anticoagulation despite the fact she has a mechanical aortic valve in place. Smoking Status: Current every day smoker Past Alcohol Use History: None Reported Additional Past Alcohol Use History / Comment(s): STARTED SMOKING AT AGE 14 SMOKES 1.5 PPD-SMOKING CESSATION BOOKLET GIVEN TO PT Past Drug Use History: Heroin, IV Drug Use, Marijuana, Opiates Additional Drug Use History / Comment(s): Pt states she has used heroin, cocaine and marijuana but cannot recall date [facility] LAST LAST USED ANY DRUGS. " I don't kNOW, I THINK ABOUT 6 MONTHS AGO." - Past Family History Father Additional Family Medical History / Comment(s): FROM ETOH ABUSE, LIVER FALURE Mother Family Medical History: Diabetes Mellitus General Exam Limitations: no limitations General appearance: alert, in no apparent distress, cachectic Respiratory exam: Present: normal lung sounds bilaterally. Absent: respiratory distress, wheezes, rales, rhonchi, stridor Cardiovascular Exam: Present: regular rate, normal rhythm, normal heart sounds. Absent: systolic murmur, diastolic murmur, rubs, gallop, clicks GI/Abdominal exam: Present: soft, normal bowel sounds. Absent: distended, tenderness, guarding, rebound, rigid Back exam: Present: full ROM, tenderness, paraspinal tenderness. Absent: normal inspection (Severe scoliosis, kyphosis), vertebral tenderness Neurological exam: Present: alert, oriented X3, CN II-XII intact, reflexes normal. Absent: motor sensory deficit Skin exam: Present: warm, dry, intact, normal color. Absent: rash Course Vital Signs 02/14/17 19:12 Temperature 99.4 F Pulse Rate 98 Respiratory 18 Rate Blood Pressure 124/65 O2 Sat by Pulse 99 Oximetry Medical Decision Making - Medical Decision Making 31-year-old female presented for back pain she has chronic pain headaches range of motion that she would not receive prescription for pain medication. She is follow palpation for pain management return parameters discussed. Disposition Clinical Impression: Chronic back pain Disposition: HOME SELF-CARE Condition: Stable Instructions: Chronic Back Pain (ED) Additional Instructions: Please return to the Emergency Department if symptoms worsen or any other concerns. Referrals: None,Stated [Primary Care Provider] - 1-2 days Time of Disposition: 19:20
== END 2017-02-14 19:33 | disposition home or self-care (01) ==
LOC: EC 18:59
DX: G89.29 Other chronic pain (principal); M54.9 Dorsalgia, unspecified; F17.200 Nicotine dependence, unspecified, uncomplicated; Z86.73 Personal history of transient ischemic attack (TIA), and cerebral infarction without residual deficits; Z79.01 Long term (current) use of anticoagulants; Z88.0 Allergy status to penicillin; Z88.6 Allergy status to analgesic agent; Z88.8 Allergy status to other drugs, medicaments and biological substances
CPT/HCPCS: 99283

== ENCOUNTER 2017-02-27 21:49 | Emergency (ER) | payer OTHER ==
[2017-02-27 21:53] VITALS: BP 125/59; PULSE 100; RESP 18; TEMP 96.9
[2017-02-27] MEDS ORDERED: CLINDAMYCIN 150 MG CAP PO STA (22:17)
--- NOTE | 2017-02-27 22:23 | ED ---
ENT HPI - General Chief complaint: Dental/Oral Stated complaint: Dental Pain Time Seen by Provider: 02/27/17 22:00 Source: patient Mode of arrival: ambulatory Limitations: no limitations - History of Present Illness MD complaint: tooth pain Onset/Timin -: days(s) Location: tooth # (15) Severity: moderate Severity scale (1-10): 8 Quality: sharp Consistency: constant Improves with: none Worsens with: eating Context- Dental: history of dental caries, poor dental care Associated Symptoms: toothache - Related Data Home Medications Medication Instructions Recorded Confirmed Warfarin [Coumadin] 5 mg PO HS 10/23/16 02/27/17 Previous Rx's Medication Instructions Recorded Clindamycin [Cleocin] 450 mg PO Q8H #90 capsule 02/27/17 Allergies Allergy/AdvReac Type Severity Reaction Status Date / Time chlordiazepoxide HCl Allergy Unknown Verified 02/27/17 21:51 [From Librium] ketorolac tromethamine Allergy PANIC Verified 02/27/17 21:51 [From Toradol] ATTACK Penicillins Allergy Rash/Hives Verified 02/27/17 21:51 prochlorperazine edisylate Allergy PANIC Verified 02/27/17 21:51 [From Compazine] ATTACK prochlorperazine maleate Allergy PANIC Verified 02/27/17 21:51 [From Compazine] ATTACK Review of Systems ROS Statement: Those systems with pertinent positive or pertinent negative responses have been documented in the HPI. ROS Other: All systems not noted in ROS Statement are negative. Past Medical History Past Medical History: CVA/TIA, Liver Disease, Osteoarthritis (OA), Pneumonia, Vascular Disorder Additional Past Medical History / Comment(s): marfan's syndrome, ArnoldChiari malformation, spontaneous pneumothorax x 21, scoliosis, back pain, bilateral leg pain, MVR, sinus infections, STATED HAS POOR CIRCULATION, viral meningitis, HEP C. "KYPHOSIS" History of Any Multi-Drug Resistant Organisms: MRSA Date of last positivie culture/infection: 05/05/2010 MDRO Source:: back per patient Past Surgical History: Cardiac Valve Replacement, Coronary Bypass/CABG, Joint Replacement Additional Past Surgical History / Comment(s): 10-27-16 I&D RT FOREARM ABCESS left upper lobe remove age 16, left hip fracture-ORIF, right foot corrective surgery, R shoulder surgery following injury, CABG x4 vessel, aortic grafts, aortic valve replaced as child (2 separate surgeries), tiffani lens removed. Past Anesthesia/Blood Transfusion Reactions: No Reported Reaction Past Psychological History: Anxiety Smoking Status: Current every day smoker Past Alcohol Use History: None Reported Past Drug Use History: Heroin, IV Drug Use, Marijuana, Opiates - Past Family History Father Additional Family Medical History / Comment(s): FROM ETOH ABUSE, LIVER FALURE Mother Family Medical History: Diabetes Mellitus General Exam - General Exam Comments Initial Comments: GENERAL: Pt awake and alert, well-appearing, well-nourished, and in no acute distress. HEAD: Atraumatic, normocephalic. EYES: Pupils equal, round, and reactive to light, extraocular movements intact, sclera anicteric, conjunctiva are normal. ENT: Oropharynx clear without exudates. Moist mucous membranes. NECK:Normal range of motion, supple without lymphadenopathy. LUNGS: Breath sounds clear to auscultation bilaterally. No wheezes, rales, or rhonchi. HEART: Heart S1, S2, no S3 or S4. Regular rate and rhythm. No murmurs. ABDOMEN: Soft, nontender, nondistended, normoactive bowel sounds. NEUROLOGICAL: Pt oriented x 3. No focal deficits noted. Strength and sensation grossly intact. PSYCH: Normal mood, normal affect. SKIN: Warm, dry, intact. Normal turgor. Limitations: no limitations ENT exam: Present: normal oropharynx, mucous membranes moist, TM's normal bilaterally, normal external ear exam Expanded Mouth exam: Present: tongue normal. Absent: drooling, trismus, muffled voice Teeth exam: Present: dental tenderness # (15), other (No evidence of abscess.) Neck exam: Present: normal inspection, full ROM. Absent: tenderness, lymphadenopathy Course Vital Signs 02/27/17 02/27/17 21:52 22:30 Temperature 96.9 F L 96.9 F L Pulse Rate 100 100 Respiratory 18 18 Rate Blood Pressure 125/59 125/59 O2 Sat by Pulse 98 98 Oximetry Medical Decision Making - Medical Decision Making Dental pain to tooth #15. No obvious cavity or dental abscess noted. Patient placed on empiric antibiotics and instructed to continue Tylenol or Motrin for pain. Patient instructed to keep dental appointment already scheduled. Patient instructed to return to the emergency department with any new or worsening symptoms. Discharge instructions and return parameters reviewed. Disposition Clinical Impression: Toothache Disposition: HOME SELF-CARE Condition: Good Instructions: Toothache (ED) Additional Instructions: Please finish antibiotic as prescribed. Continue Motrin and Tylenol for pain. Continue warm compresses to the site. Follow-up with dentist on Monday as already scheduled. Please return to the emergency department if symptoms do not improve or get worse. Prescriptions: Clindamycin [Cleocin] 450 mg PO Q8H #90 capsule Referrals: None,Stated [Primary Care Provider] - 1-2 days Time of Disposition: 22:23
== END 2017-02-27 22:30 | disposition home or self-care (01) ==
LOC: EC 21:49
DX: K08.89 Other specified disorders of teeth and supporting structures (principal); F17.200 Nicotine dependence, unspecified, uncomplicated; Z86.73 Personal history of transient ischemic attack (TIA), and cerebral infarction without residual deficits; Z88.0 Allergy status to penicillin; Z88.6 Allergy status to analgesic agent; Z88.8 Allergy status to other drugs, medicaments and biological substances; Z79.01 Long term (current) use of anticoagulants
CPT/HCPCS: 99282

== ENCOUNTER 2017-03-01 13:55 | Observation (INO) | payer OTHER ==
[2017-03-01] MEDS ORDERED: HYDROmorphone 1 MG/ML 1 ML SYRINGE IVP STA ×2 (14:39→16:33)
[2017-03-01] MEDS ORDERED: SODIUM CHLORIDE 0.9% 500 ML IV STA (14:39)
--- NOTE | 2017-03-01 14:52 | ED ---
General Adult HPI - General Chief complaint: Back Pain/Injury Stated complaint: All over Pain Time Seen by Provider: 03/01/17 14:02 Source: patient, family, EMS, RN notes reviewed, old records reviewed Mode of arrival: EMS Limitations: no limitations - History of Present Illness Initial comments: Chief complaint and history of present illness a 31-year-old female here with a cousin. The patient called because she was feeling well. The patient continues to do IV heroin. Fresh cotter are noted on her forearm. Patient has history of Marfan syndrome. - Related Data Home Medications Medication Instructions Recorded Confirmed Warfarin [Coumadin] 5 mg PO HS 10/23/16 03/01/17 Previous Rx's Medication Instructions Recorded Clindamycin [Cleocin] 450 mg PO Q8H #90 capsule 02/27/17 Allergies Allergy/AdvReac Type Severity Reaction Status Date / Time chlordiazepoxide HCl Allergy Unknown Verified 03/01/17 14:36 [From Librium] ketorolac tromethamine Allergy PANIC Verified 03/01/17 14:36 [From Toradol] ATTACK Penicillins Allergy Rash/Hives Verified 03/01/17 14:36 prochlorperazine edisylate Allergy PANIC Verified 03/01/17 14:36 [From Compazine] ATTACK prochlorperazine maleate Allergy PANIC Verified 03/01/17 14:36 [From Compazine] ATTACK Review of Systems ROS Statement: Those systems with pertinent positive or pertinent negative responses have been documented in the HPI. Review of systems patient reports everything hurts her head or neck or back muscles her arms. No fever. Patient's never been through rehab. The patient' s past medical problems significant for TIA, chronic liver disease, still arthritis, pneumonia, vascular disorderaortic valve problems. Marfan syndrome. Surgeries include cardiac valve replacement. Coronary bypass, right hip replaced. Family history noncontributory. ALLERGIES as listed. Patient states she can take Dilaudid and Zofran ROS Other: All systems not noted in ROS Statement are negative. Past Medical History Past Medical History: CVA/TIA, Liver Disease, Osteoarthritis (OA), Pneumonia, Vascular Disorder Additional Past Medical History / Comment(s): marfan's syndrome, ArnoldChiari malformation, spontaneous pneumothorax x 21, scoliosis, back pain, bilateral leg pain, MVR, sinus infections, STATED HAS POOR CIRCULATION, viral meningitis, HEP C. "KYPHOSIS" History of Any Multi-Drug Resistant Organisms: MRSA Date of last positivie culture/infection: 05/05/2010 MDRO Source:: back per patient Past Surgical History: Cardiac Valve Replacement, Coronary Bypass/CABG, Joint Replacement Additional Past Surgical History / Comment(s): 10-27-16 I&D RT FOREARM ABCESS left upper lobe remove age 16, left hip fracture-ORIF, right foot corrective surgery, R shoulder surgery following injury, CABG x4 vessel, aortic grafts, aortic valve replaced as child (2 separate surgeries), tiffani lens removed. Past Anesthesia/Blood Transfusion Reactions: No Reported Reaction Past Psychological History: Anxiety Smoking Status: Current every day smoker Past Alcohol Use History: None Reported Past Drug Use History: Heroin, IV Drug Use, Marijuana, Opiates - Past Family History Father Additional Family Medical History / Comment(s): FROM ETOH ABUSE, LIVER FALURE Mother Family Medical History: Diabetes Mellitus General Exam - General Exam Comments Initial Comments: General: The patient is awake and alert, in no distress because of probable narcotic withdrawal. Patient complains of head neck back pain. Vital signs temp 98.9 pulse 72 respiratory rate 16 pulse ox 94% room air blood pressure 148/68 Eye: Pinpoint pupils, extra-ocular movements are intact; there is normal conjunctiva bilaterally. History of bilateral cataract removal. Ears, nose, mouth and throat: There are moist mucous membranes and no oral lesions. Poor dentition Neck: The neck is supple, , chronic neck pain. Cardiovascular: Loud systolic click trio valve replacements. Respiratory: Lungs are clear to auscultation, respirations are non-labored, breath sounds are equal. No wheezes, stridor, rales, or rhonchi. History of pneumothoraces. Gastrointestinal: Soft, non-distended, non-tender abdomen without masses or organomegaly noted. There is no rebound or guarding present. No CVA tenderness. Bowel sounds are unremarkable. Back: Chronic back pain Musculoskeletal: Then upper or lower extremities. Patient has Marfan syndrome. Evidence what appears to be fresh needle cotter forearms. Neurological: No evidence of a neuro deficits. Chronic back pain. Skin: Skin is warm and dry and no rashes or lesions are noted. Psychiatric: History of depression. Limitations: no limitations Course Vital Signs 03/01/17 03/01/17 03/01/17 14:02 15:19 15:35 Temperature 98.9 F 97.9 F Pulse Rate 72 95 Respiratory 16 18 18 Rate Blood Pressure 148/68 142/65 O2 Sat by Pulse 98 97 Oximetry 03/01/17 03/01/17 03/01/17 16:21 17:28 19:00 Temperature 98.5 F 99.2 F 98.2 F Pulse Rate 100 91 94 Respiratory 18 17 16 Rate Blood Pressure 159/79 138/66 155/81 O2 Sat by Pulse 98 98 99 Oximetry Medical Decision Making - Medical Decision Making Medical decision-making. The patient's white count is 19 hemoglobin 15 hematocrit of 46. Potassium 4.2 with a BUN 8 creatinine 0.5 and GFR greater than 60. Glucose 119 alk phos 127. Patient refused to move to get her x-ray that was delayed. She refused to provide urine was necessary to use a catheterization and she was not cooperative in getting the sample so that was delayed as well. Chest x-ray is done reviewed radiologist his impression is there are external wires. There is no heart failure nor confluent pneumonic infiltrate. There is minimal linear density at the right lung base. There is some linear density in the medial left upper lobe. Final impression minimal subsegmental atelectasis. No heart failure. Upper thoracic level scoliosis noted. No change compared to old exam. As read by Dr. Staton Patient be admitted for intractable pain and opiate withdrawal. She'll be placed on clonidine 0.1 every 4 hours. Zofran for nausea. - Lab Data Result diagrams: 03/01/17 15:37 03/01/17 15:37 Lab Results 03/01/17 03/01/17 Range/Units 15:37 15:37 WBC 19.2 H (3.8-10.6) k/uL RBC 5.06 (3.80-5.40) m/uL Hgb 15.2 (11.4-16.0) gm/dL Hct 46.5 H (34.0-46.0) % MCV 91.8 (80.0-100.0) fL MCH 30.0 (25.0-35.0) pg MCHC 32.7 (31.0-37.0) g/dL RDW 15.2 (11.5-15.5) % Plt Count 299 (150-450) k/uL Neutrophils % 93 % Lymphocytes % 3 % Monocytes % 3 % Eosinophils % 0 % Basophils % 0 % Neutrophils # 17.8 H (1.3-7.7) k/uL Lymphocytes # 0.6 L (1.0-4.8) k/uL Monocytes # 0.6 (0-1.0) k/uL Eosinophils # 0.0 (0-0.7) k/uL Basophils # 0.1 (0-0.2) k/uL Sodium 141 (137-145) mmol/L Potassium 4.2 (3.5-5.1) mmol/L Chloride 104 (98-107) mmol/L Carbon Dioxide 21 L (22-30) mmol/L Anion Gap 16 mmol/L BUN 8 (7-17) mg/dL Creatinine 0.50 L (0.52-1.04) mg/dL Est GFR (MDRD) Af Amer >60 (>60 ml/min/1.73 sqM) Est GFR (MDRD) Non-Af >60 (>60 ml/min/1.73 sqM) Glucose 119 H (74-99) mg/dL Calcium 9.5 (8.4-10.2) mg/dL Total Bilirubin 1.2 (0.2-1.3) mg/dL AST 36 (14-36) U/L ALT 18 (9-52) U/L Alkaline Phosphatase 127 H (38-126) U/L Total Protein 8.5 H (6.3-8.2) g/dL Albumin 4.8 (3.5-5.0) g/dL Disposition Clinical Impression: Opiate withdrawal, Chronic pain, Marfans syndrome Disposition: ADMITTED IP TO THIS HOSP Condition: Fair Referrals: None,Stated [Primary Care Provider] - 1-2 days
[2017-03-01] MEDS ORDERED: ONDANSETRON 4 MG/2 ML VIAL IVP STA ×2 (15:33→17:01)
[2017-03-01 16:09] LABS: Basophils # (A) 0.1 k/uL (0-0.2); Basophils % (A) 0 %; CH 30.5; CHCM 33.4; Eosinophils % (A) 0 %; HCT 46.5 % (34.0-46.0); HDW 3.06; HGB 15.2 gm/dL (11.4-16.0); Luc % (Auto) 1; Lymphocytes # (A) 0.6 k/uL (1.0-4.8); Lymphocytes % (A) 3 %; MCHC 32.7 g/dL (31.0-37.0); MCV 91.8 fL (80.0-100.0); Mean Platelet Volume 7.2; Monocytes # (A) 0.6 k/uL (0-1.0); Monocytes % (A) 3 %; Neutrophils # (A) 17.8 k/uL (1.3-7.7); Neutrophils % (A) 93 %; RBC 5.06 m/uL (3.80-5.40); RDW 15.2 % (11.5-15.5); WBC 19.2 k/uL (3.8-10.6); WBC (Perox) 18.83
[2017-03-01 16:21] LABS: ALT 18 U/L (9-52); AST 36 U/L (14-36); Alkaline Phosphatase 127 U/L (38-126); Anion Gap 16 mmol/L; Blood Urea Nitrogen 8 mg/dL (7-17); Calcium 9.5 mg/dL (8.4-10.2); Carbon Dioxide 21 mmol/L (22-30); Chloride 104 mmol/L (98-107); Glucose 119 mg/dL (74-99); Non-African American GFR(MDRD) >60 (>60 ml/min/1.73 sqM); Potassium 4.2 mmol/L (3.5-5.1); Sodium 141 mmol/L (137-145); Total Bilirubin 1.2 mg/dL (0.2-1.3); Total Protein 8.5 g/dL (6.3-8.2)
--- NOTE | 2017-03-01 17:22 | XR ---
EXAMINATION TYPE: XR chest 1V portable DATE OF EXAM: 03/01/2017 COMPARISON: 02/11/2017 HISTORY: Chest pain TECHNIQUE: Single frontal view of the chest is obtained. FINDINGS: There are sternal wires. There is no heart failure nor confluent pneumonic infiltrate. The re is minimal linear density at the right lung base. There is some linear density in the medial left upper lobe. IMPRESSION: Minimal subsegmental atelectasis. No heart failure. Upper thoracic levoscoliosis noted. No change compared to old exam.
[2017-03-01 19:27] VITALS: RESP 16
[2017-03-01] MEDS ORDERED: cloNIDine HCL 0.1 MG TAB PO STA (19:41)
[2017-03-01] MEDS ORDERED: NALOXONE 0.4 MG/ML 1 ML VIAL IV PRN (19:43)
[2017-03-01 19:45] LABS: Appearance,Urine Clear (Clear); Bacteria,Urine Rare /hpf; Bilirubin,Urine Negative (Negative); Glucose,Urine (UA) Negative (Negative); Ketones,Urine 1+ (Negative); Leukocyte Esterase,Urine Small (Negative); Nitrite,Urine Negative (Negative); PH, Urine 8.5 (5.0-8.0); Particle Count 3442; Protein,Urine Trace (Negative); RBC,Urine 1 /hpf (0-5); Specific Gravity,Urine 1.015 (1.001-1.035); Squamous Epithelial Cell,Urine 1 /hpf (0-4); UA Billing (MACRO vs. MICRO) MICRO; Urobilinogen,Urine <2.0 mg/dL (<2.0); WBC,Urine 4 /hpf (0-5)
[2017-03-01 21:24] LABS: INR 1.2 (<1.1); Prothrombin Time 11.6 sec (9.0-12.0)
[2017-03-01] MEDS: HYDROmorphone 1 MG/ML 1 ML SYRINGE IVP PRN (22:03)
[2017-03-01] MEDS: SODIUM CHLORIDE 0.9% 1,000 ML IV SCH (22:07)
[2017-03-01] MEDS: CLINDAMYCIN 150 MG CAP PO SCH (22:26)
[2017-03-01] MEDS: PANTOPRAZOLE 40 MG/10 ML VIAL IV SCH (22:26)
[2017-03-01] MEDS: WARFARIN 5 MG TAB PO SCH (22:27)
[2017-03-02] MEDS: cloNIDine HCL 0.1 MG TAB PO SCH ×2 (00:19→06:02)
[2017-03-02] MEDS: ONDANSETRON 4 MG/2 ML VIAL IVP PRN ×3 (01:26→17:57)
[2017-03-02] MEDS: HYDROmorphone 1 MG/ML 1 ML SYRINGE IVP PRN ×5 (01:57→22:15)
[2017-03-02 02:12] VITALS: BMI 14.4
[2017-03-02] MEDS: CLINDAMYCIN 150 MG CAP PO SCH ×3 (05:13→19:51)
[2017-03-02] MEDS: ACETAMINOPHEN TAB 325 MG TAB PO PRN ×3 (07:32→19:51)
[2017-03-02 07:36] LABS: Basophils % (A) 0 %; CH 29.9; CHCM 33.1; Eosinophils % (A) 0 %; HCT 39.4 % (34.0-46.0); HDW 2.97; HGB 13.2 gm/dL (11.4-16.0); Luc # (Auto) 0.18; Luc % (Auto) 1; Lymphocytes # (A) 1.1 k/uL (1.0-4.8); Lymphocytes % (A) 8 %; MCH 30.3 pg (25.0-35.0); MCHC 33.4 g/dL (31.0-37.0); MCV 90.6 fL (80.0-100.0); Mean Platelet Volume 6.4; Monocytes # (A) 0.8 k/uL (0-1.0); Monocytes % (A) 6 %; Neutrophils # (A) 11.6 k/uL (1.3-7.7); Neutrophils % (A) 85 %; RBC 4.35 m/uL (3.80-5.40); WBC 13.7 k/uL (3.8-10.6); WBC (Perox) 14.98
[2017-03-02] MEDS: PANTOPRAZOLE 40 MG/10 ML VIAL IV SCH (07:39)
[2017-03-02 07:57] LABS: ALT 20 U/L (9-52); AST 24 U/L (14-36); Alkaline Phosphatase 90 U/L (38-126); Anion Gap 10 mmol/L; Blood Urea Nitrogen 8 mg/dL (7-17); Calcium 8.6 mg/dL (8.4-10.2); Carbon Dioxide 21 mmol/L (22-30); Chloride 106 mmol/L (98-107); Glucose 118 mg/dL (74-99); Non-African American GFR(MDRD) >60 (>60 ml/min/1.73 sqM); Potassium 3.9 mmol/L (3.5-5.1); Sodium 137 mmol/L (137-145); Total Bilirubin 1.4 mg/dL (0.2-1.3)
[2017-03-02 10:54] LABS: Hepatitis B Surface Ag Index 0.14
[2017-03-02] MEDS: SODIUM CHLORIDE 0.9% 1,000 ML IV SCH (10:56)
[2017-03-02 11:00] LABS: Hepatitis B Core IgM Index 0.17
[2017-03-02 11:12] LABS: Hepatitis C Virus IgG Ab Reactive (Negative)
[2017-03-02] MEDS ORDERED: RX INFO: IV CONTRAST WAS GIVEN 1 EACH MISC MISCELLANE PRN (11:38)
[2017-03-02] MEDS: traMADol 50 MG TAB PO SCH ×3 (12:54→21:42)
[2017-03-02] MEDS: ENOXAPARIN 40 MG/0.4 ML SYRINGE SQ SCH ×2 (12:54→19:51)
[2017-03-02] MEDS: WARFARIN 5 MG TAB PO SCH (19:51)
[2017-03-03] MEDS: SODIUM CHLORIDE 0.9% 1,000 ML IV SCH ×2 (01:44→10:35)
[2017-03-03] MEDS: ACETAMINOPHEN TAB 325 MG TAB PO PRN ×2 (01:59→12:05)
[2017-03-03] MEDS: HYDROmorphone 1 MG/ML 1 ML SYRINGE IVP PRN (02:56)
[2017-03-03] MEDS: CLINDAMYCIN 150 MG CAP PO SCH ×2 (02:56→12:06)
[2017-03-03 08:00] LABS: CH 30.9; HCT 39.2 % (34.0-46.0); HDW 2.97; HGB 13.3 gm/dL (11.4-16.0); MCHC 33.8 g/dL (31.0-37.0); MCV 91.5 fL (80.0-100.0); Mean Platelet Volume 7.1; RBC 4.29 m/uL (3.80-5.40); RDW 15.1 % (11.5-15.5); WBC 16.9 k/uL (3.8-10.6)
[2017-03-03 08:13] LABS: ALT 22 U/L (9-52); AST 15 U/L (14-36); Alkaline Phosphatase 81 U/L (38-126); Anion Gap 11 mmol/L; Blood Urea Nitrogen 10 mg/dL (7-17); Calcium 8.9 mg/dL (8.4-10.2); Carbon Dioxide 22 mmol/L (22-30); Chloride 106 mmol/L (98-107); Glucose 110 mg/dL (74-99); INR 2.3 (<1.1); Non-African American GFR(MDRD) >60 (>60 ml/min/1.73 sqM); Potassium 3.5 mmol/L (3.5-5.1); Prothrombin Time 22.4 sec (9.0-12.0); Sodium 139 mmol/L (137-145); Total Bilirubin 1.1 mg/dL (0.2-1.3); Total Protein 6.8 g/dL (6.3-8.2)
[2017-03-03 08:23] VITALS: BP 115/55; PULSE 75; TEMP 97.2
[2017-03-03] MEDS ORDERED: PANTOPRAZOLE 40 MG TABLET PO SCH (09:00)
[2017-03-03] MEDS: traMADol 50 MG TAB PO SCH ×2 (09:05→13:13)
[2017-03-03] MEDS: ENOXAPARIN 40 MG/0.4 ML SYRINGE SQ SCH (09:06)
[2017-03-03] MEDS ORDERED: RX INFO: IV CONTRAST WAS GIVEN 1 EACH MISC MISCELLANE PRN (10:19)
[2017-03-03] MEDS ORDERED: HYDROmorphone 1 MG/ML 1 ML SYRINGE IVP ONE (10:20)
[2017-03-03] MEDS: ONDANSETRON 4 MG/2 ML VIAL IVP PRN (12:05)
--- NOTE | 2017-03-03 12:14 | CT ---
EXAMINATION TYPE: CT CervThoracic spine w con DATE OF EXAM: 03/03/2017 COMPARISON: NONE HISTORY: neck and back pain, pt has Marfans syndrome CT DLP: 845.3 mGycm Automated exposure control for dose reduction was used. CONTRAST: Performed with IV Contrast, patient injected with 100 mL of Omnipaque 300. TECHNIQUE: Axial images 2 mm thick sections. Reconstructed images in the sagittal plane. FINDINGS: Scoliosis is present. No AP spinal canal stenosis is evident. Significant foraminal narrowing is not identified. Facet changes are present. No focal disc herniations or significant disc bulges are evide nt. No abnormal enhancement is evident. There is from prior craniotomy in the occipital region. Foramen magnum appears patent. Paraspinal sof t tissues are unremarkable. Vascular calcifications at the proximal ascending thoracic aorta. There is some anterior listhesis of C4 anteriorly on C5. Congenital appearing vertebral malalignment with possible fusion is at the lower thoracic-upper lumbar spine region. IMPRESSION: 1. NO ACUTE OSSEOUS ABNORMALITY. 2. NO ABNORMAL ENHANCEMENT. 3. NO SPINAL CANAL STENOSIS. 4. SCOLIOSIS
--- NOTE | 2017-03-04 17:29 | HP ---
Patient is a 31-year-old female with a history of multiple drug use, including heroin use. She came in because she was not feeling well. The patient today, when questioned about her reason for coming to the hospital, she said she had complaints of severe back and neck pain along with headache, although patient does not have any photophobia, nuchal rigidity. Patient does not have any fever. Patient actively uses heroin. Patient apparently has hepatitis C as well. Patient does have history of Marfan's, has a mechanical valve. Patient is highly non-compliant with Coumadin. Patient's INR is 1.2. Patient last took her Coumadin about a week ago. Patient is asking for Dilaudid. Patient is complaining of 10/10 pain. Patient's back pain is non-radiating. Patient says it is acute rather than chronic pain. Patient, although, has chronic low back pain. Patient is cachectic, thin build. Her urine drug screen is positive for cocaine and heroin. Home medications include: 1. Coumadin. 2. Clindamycin. ALLERGIES: 1. LIBRIUM. 2. PENICILLINS. 3. KETOROLAC. 4. COMPAZINE. REVIEW OF SYSTEMS ( ) GENERAL: As described in HPI. MUSCULOSKELETAL: As described in HPI. Past medical history is significant for:a 1. Marfan's syndrome. 2. Arnold-Chiari malformation diagnosis in the past. 3. Pneumothorax. 4. Scoliosis. 5. Hepatitis C. 6. Osteoarthritis. 7. Drug abuse. 8. Cardiac valve replacement (aortic valve replacement) with a mechanical aortic valve. 9. Abscess in the forearm which was incised and drained in the past. Patient continues to smoke. Patient does use IV heroin, marijuana, prescription opiates as well as cocaine. Denied any alcohol abuse. Father of alcohol abuse and liver failure. Mother had diabetes mellitus. PHYSICAL EXAMINATION: VITAL SIGNS: Temperature 97.5, pulse of 92, respirate rate of 16, blood pressure 131/73. Saturating at 99% on room air. ( ) GENERAL: Very thin built female. Alert and oriented x3. LABORATORY DATA: CBC, CMP are abnormal for elevated WBC count of 19,200 and it has come down to 13,700. Patient is at present on clindamycin; not sure why this was started. I did not see any cellulitis at this point of time. Patient was on clindamycin at home. ASSESSMENT AND PLAN: 1. Back pain with history of IV drug use. I do have a little bit of suspicion for ( ), although patient's complaints of pain can be related to her opiate -seeking behavior as well. I will only opiates for opiate withdrawal, and patient instead will use tramadol for pain, as patient is ALLERGIC TO KETOROLAC. I will get a CT with contrast of the thoracolumbar spine to assess for any discitis. We cannot get an MRI because of the mechanical aortic valve. 2. Mechanical aortic valve, status post replacement for Marfan's syndrome. The patient's INR is subtherapeutic. Patient will be started on bridging Lovenox. Will use a lower dose of ( ) because patient is thin built, cachectic at this point in time; roughly around 1 mg/kg subcutaneously, along with Coumadin, with recheck of INR. 3. History of hepatitis C. Will need to follow up as an outpatient for further evaluation and treatment. 4. Depression. 5. Multiple drug use. Extensive counseling was provided regarding that. 6. Nicotine abuse. Counseling was provided regarding that as well. 7. Patient is thin built and cachectic. Moderate malnutrition. Continue with supportive care. Will also get social work assessment for active IV drug use. MTDD
--- NOTE | 2017-03-06 14:52 | P.DS ---
Providers Date of admission: 03/01/17 19:43 Attending physician: Dax Carballo MD Primary care physician: Stated None Hospital Course: 31-year-old female with history of multiple drug abuse and actively using IV heroine, history of hepatitis C was admitted for back pain and her goal dose. Patient had leukocytosis. All the cultures were negative initial concern was discitis because of which we obtained a CT of the l thoracolumbar spine which is not significant for any acute problem except for scoliosis. Patient was asking for hydromorphone often. And not willing to quit any of her street drugs. Patient is highly noncompliant with any recommendations. Patient has Marfan syndrome and I did well the placement with a mechanical aortic valve patient stopped taking her Coumadin. Patient was started back on Coumadin with bridging Lovenox once INR is about 2.5 patient's Lovenox was reviewed and patient is being discharged on 3 mg of Coumadin. Patient is definitely high risk for readmission. Although nothing much can be offered medically. Patient Condition at Discharge: Fair Plan - Discharge Summary New Discharge Prescriptions: No Action cloNIDine HCL [Catapres] 0.1 mg PO QID PRN #1 tab PRN Reason: Opioid withdrawal symptoms Gabapentin [Neurontin] 400 mg PO TID #1 cap Methadone [Dolophine] 5 mg PO BID #1 tab OLANZapine [ZyPREXA] 5 mg PO Q6HR PRN tab PRN Reason: Agitation Or Acute Psychosis Warfarin [Coumadin] 5 mg PO DAILY@1800 #1 tab Clindamycin [Cleocin] 450 mg PO Q8H #90 capsule Discharge Medication List Clindamycin [Cleocin] 450 mg PO Q8H #90 capsule 03/06/17 [Rx] Gabapentin [Neurontin] 400 mg PO TID #1 cap 03/06/17 [Rx] Methadone [Dolophine] 5 mg PO BID #1 tab 03/06/17 [Rx] OLANZapine [ZyPREXA] 5 mg PO Q6HR PRN tab 03/06/17 [Rx] Warfarin [Coumadin] 5 mg PO DAILY@1800 #1 tab 03/06/17 [Rx] cloNIDine HCL [Catapres] 0.1 mg PO QID PRN #1 tab 03/06/17 [Rx] Follow up Appointment(s)/Referral(s): Esteban Negron MD [STAFF PHYSICIAN] - 1 Week (Patient will need to call Dr. Negron's office to schedule a follow up appointment. ) Ambulatory/Diagnostic Orders: Prothrombin Time INR [LAB.AMB] Time Frame: 3 Days, Location: Determined By Patient Patient Instructions/Handouts: Narcotic Abuse (DC), Back Pain (GEN) Activity/Diet/Wound Care/Special Instructions: Detox appointment March 09, 2017 12:00pm [address] [place] [address] Discharge Disposition: HOME SELF-CARE
== END 2017-03-03 16:30 | disposition home or self-care (01) ==
LOC: EC 13:55 → INTOOBSV 19:43 → 5MS5E 19:43
PROVIDERS: ADMIT Internal Medicine; ATTEND Internal Medicine
DX: M54.9 Dorsalgia, unspecified (principal); F11.23 Opioid dependence with withdrawal; Z95.2 Presence of prosthetic heart valve; Q87.418 Marfan syndrome with other cardiovascular manifestations; B19.20 Unspecified viral hepatitis C without hepatic coma; F32.9 Major depressive disorder, single episode, unspecified; R64 Cachexia; E44.0 Moderate protein-calorie malnutrition; M41.9 Scoliosis, unspecified; Z68.1 Body mass index [BMI] 19.9 or less, adult; G89.29 Other chronic pain; M54.2 Cervicalgia; F41.9 Anxiety disorder, unspecified; R51 Headache; M19.90 Unspecified osteoarthritis, unspecified site; Z86.14 Personal history of Methicillin resistant Staphylococcus aureus infection; Z86.73 Personal history of transient ischemic attack (TIA), and cerebral infarction without residual deficits; Z79.01 Long term (current) use of anticoagulants; Z79.899 Other long term (current) drug therapy; Z95.1 Presence of aortocoronary bypass graft; F17.210 Nicotine dependence, cigarettes, uncomplicated; Z91.14 Patient's other noncompliance with medication regimen; Z88.0 Allergy status to penicillin; Z88.8 Allergy status to other drugs, medicaments and biological substances; Z83.3 Family history of diabetes mellitus; F45.42 Pain disorder with related psychological factors
CPT/HCPCS: 96376 ×4; 96361 ×2; 96374; 96375; 99285; 36415; 80053 ×3; 80074; 85025 ×2; 85027; 85610 ×2; 81001; 87040; 80306; 87086; 71010; 72129; 72126; G0378 ×3; J2405 ×3; J1650 ×2; J1170 ×3; Q9967; C9113 ×2; 96372

== ENCOUNTER 2017-03-03 22:31 | Inpatient (IN) | payer MEDICAID, OTHER ==
--- NOTE | 2017-03-03 22:53 | ED ---
General Adult HPI - General Source: patient, RN notes reviewed Mode of arrival: EMS Limitations: no limitations <Joseph Mercado - Last Filed: 03/03/17 23:06> <Ryan Acevedo - Last Filed: 03/04/17 02:28> - General Chief complaint: Back Pain/Injury Stated complaint: Pain Time Seen by Provider: 03/03/17 22:42 - History of Present Illness Initial comments: Patient is a 31-year-old female presenting to the emergency Department with back pain. Patient has chronic back pain. Patient admits to heroin use. No recent fevers. Patient was just discharged from the hospital secondary to opiate withdrawal. No weakness. No incontinence. Patient does request multiple medications. Patient did just have computed tomography scan done of her spine 2 days ago. (Joseph Mercado) - Related Data Previous Rx's Medication Instructions Recorded Clindamycin [Cleocin] 450 mg PO Q8H #90 capsule 02/27/17 Warfarin [Coumadin] 3 mg PO HS #30 03/03/17 Allergies Allergy/AdvReac Type Severity Reaction Status Date / Time chlordiazepoxide HCl Allergy Unknown Verified 03/03/17 23:10 [From Librium] ketorolac tromethamine Allergy PANIC Verified 03/03/17 23:10 [From Toradol] ATTACK Penicillins Allergy Rash/Hives Verified 03/03/17 23:10 prochlorperazine edisylate Allergy PANIC Verified 03/03/17 23:10 [From Compazine] ATTACK prochlorperazine maleate Allergy PANIC Verified 03/03/17 23:10 [From Compazine] ATTACK Review of Systems ROS Other: All systems not noted in ROS Statement are negative. Constitutional: Denies: fever Eyes: Denies: eye pain ENT: Denies: ear pain Respiratory: Denies: cough Cardiovascular: Denies: chest pain Endocrine: Denies: fatigue Gastrointestinal: Denies: abdominal pain Genitourinary: Denies: dysuria Musculoskeletal: Reports: back pain Skin: Denies: rash Neurological: Denies: weakness <Joseph Mercado - Last Filed: 03/03/17 23:06> ROS Other: All systems not noted in ROS Statement are negative. <Ryan Acevedo - Last Filed: 03/04/17 02:28> ROS Statement: Those systems with pertinent positive or pertinent negative responses have been documented in the HPI. Past Medical History Past Medical History: CVA/TIA, Liver Disease, Osteoarthritis (OA), Pneumonia, Vascular Disorder Additional Past Medical History / Comment(s): marfan's syndrome, ArnoldChiari malformation, spontaneous pneumothorax x 21, scoliosis, back pain, bilateral leg pain, MVR, sinus infections, STATED HAS POOR CIRCULATION, viral meningitis, HEP C. "KYPHOSIS" History of Any Multi-Drug Resistant Organisms: MRSA Date of last positivie culture/infection: 05/05/2010 MDRO Source:: back per patient Past Surgical History: Cardiac Valve Replacement, Coronary Bypass/CABG, Joint Replacement Additional Past Surgical History / Comment(s): 10-27-16 I&D RT FOREARM ABCESS left upper lobe remove age 16, left hip fracture-ORIF, right foot corrective surgery, R shoulder surgery following injury, CABG x4 vessel, aortic grafts, aortic valve replaced as child (2 separate surgeries), tiffani lens removed. Past Anesthesia/Blood Transfusion Reactions: No Reported Reaction Past Psychological History: Anxiety Smoking Status: Current every day smoker Past Alcohol Use History: None Reported Past Drug Use History: Heroin, IV Drug Use, Marijuana, Opiates - Past Family History Father Additional Family Medical History / Comment(s): FROM ETOH ABUSE, LIVER FALURE Mother Family Medical History: Diabetes Mellitus <Joseph Mercado - Last Filed: 03/03/17 23:06> General Exam Limitations: no limitations General appearance: alert, in no apparent distress Head exam: Present: atraumatic Eye exam: Present: normal appearance, PERRL ENT exam: Present: normal oropharynx Neck exam: Present: normal inspection Respiratory exam: Present: normal lung sounds bilaterally Cardiovascular Exam: Present: regular rate, normal rhythm GI/Abdominal exam: Present: soft. Absent: tenderness Extremities exam: Present: normal inspection Back exam: Present: other (Scoliosis. Patient does complain of tenderness along the entire spine.) Neurological exam: Present: alert Psychiatric exam: Present: normal affect, normal mood Skin exam: Present: normal color <Joseph Mercado - Last Filed: 03/03/17 23:06> Course <Joseph Mercado - Last Filed: 03/03/17 23:06> <Ryan Acevedo - Last Filed: 03/04/17 02:28> Vital Signs 03/03/17 22:32 Temperature 98.3 F Pulse Rate 89 Respiratory 16 Rate Blood Pressure 140/63 - Reevaluation(s) Reevaluation #1: 03/03/17 23:06 case will be endorced to Dr. Acevedo. (Joseph Mercado) Medical Decision Making <Joseph Mercado - Last Filed: 03/03/17 23:06> <Ryan Acevedo - Last Filed: 03/04/17 02:28> - Medical Decision Making 31 female seen and evaluated by psychiatry, refused to give patient pain medication or opiate pain medication at this time. Patient will be discharged home (Ryan Acevedo) - Lab Data Lab Results 03/03/17 Range/Units 23:15 Urine Opiates Screen Detected H (NotDetected) Ur Oxycodone Screen Not Detected (NotDetected) Urine Methadone Screen Not Detected (NotDetected) Ur Propoxyphene Screen Not Detected (NotDetected) Ur Barbiturates Screen Not Detected (NotDetected) U Tricyclic Antidepress Not Detected (NotDetected) Ur Phencyclidine Scrn Not Detected (NotDetected) Ur Amphetamines Screen Not Detected (NotDetected) U Methamphetamines Scrn Not Detected (NotDetected) U Benzodiazepines Scrn Detected H (NotDetected) Urine Cocaine Screen Detected H (NotDetected) U Marijuana (THC) Screen Detected H (NotDetected) Disposition <Joseph Mercado - Last Filed: 03/03/17 23:06> <Ryan Acevedo - Last Filed: 03/04/17 02:28> Clinical Impression: Chronic back pain, Opiate withdrawal, Heroin abuse, Depression Disposition: HOME SELF-CARE Condition: Good Instructions: Acute Low Back Pain (ED), Chronic Back Pain (ED) Referrals: None,Stated [Primary Care Provider] - 1-2 days
[2017-03-03] MEDS ORDERED: ACETAMINOPHEN TAB 325 MG TAB PO STA (23:50)
[2017-03-04] MEDS ORDERED: MAG HYDROX/AL HYDROX/SIMETH 30 ML CUP PO PRN (04:16)
[2017-03-04] MEDS ORDERED: MAGNESIUM HYDROXIDE 2,400 MG/10 ML CUP PO PRN (04:16)
[2017-03-04] MEDS: NICOTINE 14MG/24HR PATCH TRANSDERM SCH (09:13)
[2017-03-04] MEDS: OLANZapine 5 MG TAB PO PRN (09:16)
[2017-03-04] MEDS: hydrOXYzine PAMOATE 25 MG CAP PO PRN ×3 (09:16→21:39)
[2017-03-04] MEDS: ACETAMINOPHEN TAB 325 MG TAB PO PRN ×2 (09:17→22:37)
[2017-03-04 12:23] LABS: INR 2.5 (<1.1); Prothrombin Time 23.9 sec (9.0-12.0)
--- NOTE | 2017-03-04 13:03 | P.MDCNMH ---
History of Present Illness H&P Date: 03/04/17 Chief Complaint: Medical management This is a 31-year-old female with multiple medical problems including Marfan syndrome, Arnold Vero malformation, sinus pneumothorax, scoliosis, chronic back pain, mitral valve regurgitation, hepatitis C, viral meningitis, CABG 4 vessel and aortic valve replacement as a child. Patient states that she does not have a primary care physician. She also has history of depression and drug abuse with heroin and opiates and marijuana. Patient came into [facility] emergency center by EMS with complaints of back pain and admitted to heroin use. She apparently was just hospitalized for opiate withdrawal. Patient was subsequently admitted to the mental health unit. Her urine drug screen was positive for benzodiazepines, cocaine and marijuana. INR is 2.5. Patient denies using any street drugs. She states he just started taking Coumadin 1 week ago and unclear why she was not taking this regularly. Patient gives very little history. She is seen in her room and is groggy and this quickly falls back to sleep between questions. Review of Systems ROS unobtainable: due to mental status All systems: negative Constitutional: Denies chills, Denies fever Eyes: denies blurred vision, denies pain Ears, nose, mouth and throat: Denies headache, Denies sore throat Cardiovascular: Reports chest pain, Denies shortness of breath Respiratory: Denies cough, Denies cough with sputum, Denies dyspnea, Denies excessive sputum, Denies hemoptysis, Denies home oxygen Gastrointestinal: Denies abdominal pain, Denies diarrhea, Denies nausea, Denies vomiting Genitourinary: Denies dysuria, Denies hematuria Musculoskeletal: Denies myalgias Integumentary: Denies pruritus, Denies rash Neurological: Denies numbness, Denies weakness Psychiatric: Denies anxiety, Denies depression Endocrine: Denies fatigue, Denies weight change Past Medical History Past Medical History: CVA/TIA, Liver Disease, Osteoarthritis (OA), Pneumonia, Vascular Disorder Additional Past Medical History / Comment(s): marfan's syndrome, ArnoldChiari malformation, spontaneous pneumothorax x 21, scoliosis, back pain, bilateral leg pain, MVR, sinus infections, STATED HAS POOR CIRCULATION, viral meningitis, HEP C. "KYPHOSIS" History of Any Multi-Drug Resistant Organisms: MRSA Date of last positivie culture/infection: 05/05/2010 MDRO Source:: back per patient Past Surgical History: Cardiac Valve Replacement, Coronary Bypass/CABG, Joint Replacement Additional Past Surgical History / Comment(s): 10-27-16 I&D RT FOREARM ABCESS left upper lobe remove age 16, left hip fracture-ORIF, right foot corrective surgery, R shoulder surgery following injury, CABG x4 vessel, aortic grafts, aortic valve replaced as child (2 separate surgeries), tiffani lens removed. Past Anesthesia/Blood Transfusion Reactions: No Reported Reaction Past Psychological History: Anxiety Smoking Status: Current every day smoker Past Alcohol Use History: None Reported Past Drug Use History: Heroin, IV Drug Use, Marijuana, Opiates - Past Family History Father Additional Family Medical History / Comment(s): Father is alive in his 50s with history of AIDS. Mother Family Medical History: Diabetes Mellitus Additional Family Medical History / Comment(s): Mother at age 49 from liver cirrhosis secondary to alcohol abuse. Brother(s) Additional Family Medical History / Comment(s): Patient has one brother with no major medical problems. Patient does not have any sisters. Patient does not have any children. Medications and Allergies Allergies Allergy/AdvReac Type Severity Reaction Status Date / Time chlordiazepoxide HCl Allergy Unknown Verified 03/03/17 23:10 [From Librium] ketorolac tromethamine Allergy PANIC Verified 03/03/17 23:10 [From Toradol] ATTACK Penicillins Allergy Rash/Hives Verified 03/03/17 23:10 prochlorperazine edisylate Allergy PANIC Verified 03/03/17 23:10 [From Compazine] ATTACK prochlorperazine maleate Allergy PANIC Verified 03/03/17 23:10 [From Compazine] ATTACK Physical Exam Vitals: Vital Signs Temp Pulse Pulse Resp BP BP 03/04/17 09:19 89 16 125/78 03/04/17 04:37 98.3 F 78 16 131/80 03/03/17 22:32 98.3 F 89 16 140/63 Intake and Output 03/03/17 03/04/17 03/04/17 22:59 06:59 14:59 Other: Weight 47.174 kg 49.1 kg 49.1 kg Patient Weight 03/05/17 06:59 Weight 49.1 kg Gen: This is a thin 31-year-old female. She is found in bed sleeping. She will arouse to answer questions only to briefly answer and falls back to sleep. HEENT: Head is atraumatic, normocephalic. Pupils equal, round. Sclerae is anicteric. NECK: Supple. No JVD. No lymphadenopathy. No thyromegaly. LUNGS: Clear to auscultation. No wheezes or rhonchi. No intercostal retractions. HEART: Regular rate and rhythm. No murmur. ABDOMEN: Soft. Bowel sounds are present. No masses. No tenderness. EXTREMITIES: No pedal edema. No calf tenderness. NEUROLOGICAL: Patient is awake, alert and oriented x3. Cranial nerves 2 through 12 are grossly intact. Cranial Nerve Examination - Cranial Nerves Cranial Nerve II- Optic: Intact Cranial Nerve III- Oculomotor: Intact Cranial Nerve IV- Trochlear: Intact Cranial Nerve V- Trigeminal: Intact Cranial Nerve - Abducens: Intact Cranial Nerve VII- Facial: Intact Cranial Nerve VIII- Auditory: Intact Cranial Nerve IX- Glossopharyngeal: Intact Cranial Nerve X- Vagus: Intact Cranial Nerve XI- Accessory: Intact Cranial Nerve XII- Hypoglossal: Intact Results Labs: Abnormal Lab Results - Last 24 Hours (Table) 03/03/17 Range/Units 23:15 Urine Opiates Screen Detected H (NotDetected) U Benzodiazepines Scrn Detected H (NotDetected) Urine Cocaine Screen Detected H (NotDetected) U Marijuana (THC) Screen Detected H (NotDetected) Assessment and Plan Plan: 1. Recurrent depression. Patient admitted to the mental health unit. Continue current plan of care. 2. History of Marfan syndrome with multiple congenital deformities status post multiple surgeries including CABG and aortic valve replacement. Continue Coumadin which patient states that she takes 5 mg daily. INR is currently therapeutic. 3. Tobacco use and dependence. Continue nicotine patch. 4. Polysubstance abuse and was just released from the hospital from opiate withdrawal. Continue as in #1. 5. History of hepatitis C, unknown if this is been treated. 6. History of viral meningitis, stable with no signs of recurrence. 7. History of spontaneous pneumothorax without signs of recurrence. Impression and plan of care have been directed as dictated by the signing physician. Pura Hanna nurse practitioner acting as scribe for signing physician.
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
[2017-03-04] MEDS: GABAPENTIN 100 MG CAP PO SCH ×2 (16:11→21:31)
[2017-03-04] MEDS: WARFARIN 5 MG TAB PO SCH (18:23)
[2017-03-04] MEDS: cloNIDine HCL 0.1 MG TAB PO PRN ×2 (18:28→21:39)
[2017-03-05] MEDS: hydrOXYzine PAMOATE 25 MG CAP PO PRN ×2 (05:21→11:48)
[2017-03-05] MEDS: cloNIDine HCL 0.1 MG TAB PO PRN ×2 (05:21→16:39)
[2017-03-05] MEDS: ACETAMINOPHEN TAB 325 MG TAB PO PRN ×4 (07:15→23:21)
[2017-03-05 08:47] LABS: CH 30.6; CHCM 34.4; HCT 39.1 % (34.0-46.0); HDW 2.96; HGB 13.5 gm/dL (11.4-16.0); MCH 30.9 pg (25.0-35.0); MCHC 34.5 g/dL (31.0-37.0); MCV 89.4 fL (80.0-100.0); Mean Platelet Volume 6.9; RBC 4.38 m/uL (3.80-5.40); RDW 14.8 % (11.5-15.5); WBC 9.9 k/uL (3.8-10.6)
[2017-03-05 09:02] LABS: ALT 15 U/L (9-52); AST 15 U/L (14-36); Alkaline Phosphatase 73 U/L (38-126); Anion Gap 10 mmol/L; Blood Urea Nitrogen 12 mg/dL (7-17); Calcium 8.6 mg/dL (8.4-10.2); Carbon Dioxide 22 mmol/L (22-30); Chloride 106 mmol/L (98-107); Glucose 98 mg/dL (74-99); INR 2.6 (<1.1); Non-African American GFR(MDRD) >60 (>60 ml/min/1.73 sqM); Potassium 3.5 mmol/L (3.5-5.1); Prothrombin Time 25.3 sec (9.0-12.0); Sodium 138 mmol/L (137-145); Total Bilirubin 0.9 mg/dL (0.2-1.3); Total Protein 6.6 g/dL (6.3-8.2)
[2017-03-05] MEDS: NICOTINE 14MG/24HR PATCH TRANSDERM SCH ×2 (09:24→09:30)
[2017-03-05] MEDS: GABAPENTIN 100 MG CAP PO SCH (09:25)
[2017-03-05] MEDS: OLANZapine 5 MG TAB PO PRN (11:46)
--- NOTE | 2017-03-05 15:09 | P.PN ---
Progress Note - Text Date of service: 03/05/2017 Chief complaint: "I couldn't handle this pain" Subjective: The patient has been seen today as follow-up, chart reviewed, case discussed with the treatment team. Pt reports severe pain mainly at the back of her head and specifically between back of her head and neck. She reports this pain started 6 days ago and comes and goes. She endorsed the pain was relatively better yesterday but she feels it the worst today. Patient denies feeling suicidal but feels very aggravated due to the pain. patient reports opiate withdrawal symptoms including night sweating, irritability, and and severe aches. She denies nausea, vomiting or diarrhea. The patient denies any manic symptoms including sustained period of time with elevated or irritable mood, impulsive or irrational behavior. The patient denies any auditory or visual hallucinations. Also the patient denies any paranoid ideation. Review of other systems: Patient denies any physical symptoms besides what has been mentioned above. No breathing problems, no chest pain reported today. Objective: Vitals has been reviewed. Mental status examination; Appearance: The patient appears older than stated age, poor hygiene, very thin and tall. Gait/posture:Patient is not able to walk today and she was on wheelchair, abnormal arm was swinging, very marketed scoliosis. Attitude and behavior: engaged, cooperative, staring eye contact. Motor activity: Increased psychomotor activity Speech: loud, pressured. Mood: Agitated Affect: full, labile Thought form: goal-directed, linear, coherent but fixated on severe pain. Thought content: Non-delusional, denies suicidal thoughts, denies homicidal thoughts, denies intentions or plans. Perception: Denies any auditory or visual hallucinations Attention: Patient is alert but has poor attention due to pain. Orientation: Patient patient was fully oriented to time place person and situation. Insight: Patient has limited insight about his psychiatric disorder. Judgment: Patient has limited judgment about his psychiatric treatment. Assessment: Rule out unspecified depression Unspecified anxiety disorder Opioid-induced mood disorder Opioid use disorder severe Opioid withdrawal Plan: Continue inpatient level of care. Inc Neurontin 400 mg by mouth 3 times a day for anxiety, pain, and post acute withdrawal syndrome. Start methadone taper started with 5mg PO TID then 5mg BID then 5mg once- for opioid withdrawal and help with severe pain Consult Neurology for sever posterior occipital pain - Pt has history of bud chiari malformation Obtain STAT brain CT scan Continue Coumadin as per medical team. PT and INR ordered to be followed by medical team
[2017-03-05] MEDS: GABAPENTIN 400 MG CAP PO SCH ×2 (15:37→21:09)
[2017-03-05] MEDS: METHADONE 5 MG TAB PO SCH ×2 (15:37→21:07)
--- NOTE | 2017-03-05 16:01 | CT ---
EXAMINATION TYPE: CT brain mario maldonado DATE OF EXAM: 03/05/2017 COMPARISON: 08/17/2016 HISTORY: Severe headache and neck pain. Patient denies injury CT DLP: 1641.[address] Brain: Unenhanced CT of the brain was performed. The ventricles, basal cisterns and sulci overlying the cerebral convexities demonstrate a stable appe arance. Mild generalized atrophic change. Decompressive occipital craniotomy changes noted. There is no evidence for intracranial hemorrhage or sulcal effacement. No mass effects are seen. If symptoms persist consider MRI. Osseous calvarium is unchanged. Hyperostosis of because of the calvarium again noted. IMPRESSION: No acute intracranial process CT Cervical Spine: Comparison is made to 01/30/2013. Unenhanced CT of the cervical spine was performed with bone and soft tissue window settings submitted . Coronal and sagittal reconstruction is obtained. There is scoliosis is noted convex to the right. There is stable 3 mm anterior subluxation of C4 on C 5 unchanged from prior study. Mild chronic loss of height involving C5 is also unchanged. Alignment i s otherwise within normal limits. No acute fracture is seen. IMPRESSION: No evidence for acute fracture. Overall stable appearance relative to 01/30/2013.
[2017-03-05] MEDS: WARFARIN 5 MG TAB PO SCH (18:39)
--- NOTE | 2017-03-05 19:22 | P.CNNES ---
History of Present Illness Consult date: 03/05/17 Reason for Consult: Patient with neck pain and headaches. History of Present Illness: This patient is a 31-year-old right-handed white female who apparently was admitted to hospital last week for possible sepsis and infection. Patient states she had elevated white count and was evaluated for possibility of underlying sepsis. She does have complex multiple medical issues including a history of Marfan syndrome, Arnold-Chiari decompression surgery, hepatitis C, scoliosis, mitral valve regurgitation, coronary artery bypass grafting 4, aortic valve replacement, and history of viral meningitis. Due to these multiple medical problems she has been followed by specialists in [place]. She states that her Marfan syndrome and heart condition is monitored by Dr. Urban at [facility]. She sees him once a year. More recently after this recent episode of possible sepsis she was discharged home. She was taken off of several pain medications. She was readmitted to the inpatient psychiatric unit yesterday for treatment of unspecified depression and anxiety disorder. Today she did complain to the psychiatrist that she has been having ongoing neck pain and headache pain. For this reason she was sent for a computed tomography scan of the brain as well as CT of the cervical spine. CT of the brain revealed no acute intracranial process. There was evidence of decompressive craniotomy noted from her previous Arnold-Chiari surgery that was done for her at age 15 at [facility] in [place] as noted at a very young age. She apparently had follow-up a year later following this surgery and there was no other recent follow-up for the Arnold-Chiari decompressive surgery. Patient states that last week she was complaining of headache but was not further evaluated for this. We did review the results of her computed tomography scan of the brain and cervical spine with her today both of which are negative. CT of the cervical spine revealed no evidence of acute fracture. There was anterior subluxation noted at C4 and C5 which is unchanged from previous study done in 2013. Patient states that her pain is quite severe and is mostly a throbbing and pressure-like pain. His is mostly radiating from the neck area. On examination she does have significant muscle tenderness mostly on the right side of the neck as well as the suboccipital area. She describes the pain as 9/10 in intensity. On her examination she is also noted to have a slight swelling on the right side of the neck on the muscle area. She will require further neuro imaging of the brain and cervical spine for further assessment. On palpation of the suboccipital area she has severe excruciating pain consistent with bilateral occipital neuritis. We are recommending anesthesia consultation for bilateral occipital nerve block procedure for her. Due to the multiple complex medical issues her overall condition at this time remains very guarded. Depending on the MRI results further recommendations will be given. Neurology is now been consulted for further evaluation and recommendations. Review of Systems Constitutional: Denies chills, Denies fever Eyes: denies blurred vision, denies pain Ears, nose, mouth and throat: Denies headache, Denies sore throat Cardiovascular: Denies chest pain, Denies shortness of breath Respiratory: Denies cough Gastrointestinal: Denies abdominal pain, Denies diarrhea, Denies nausea, Denies vomiting Genitourinary: Denies dysuria, Denies hematuria Musculoskeletal: Denies myalgias Integumentary: Denies pruritus, Denies rash Neurological: Reports change in mentation, Reports confusion, Reports headaches , Reports paresthesias, Denies numbness, Denies weakness Psychiatric: Reports anxiety attacks, Reports depression, Reports irritability, Reports mood swings Endocrine: Denies fatigue, Denies weight change Past Medical History Past Medical History: CVA/TIA, Liver Disease, Osteoarthritis (OA), Pneumonia, Vascular Disorder Additional Past Medical History / Comment(s): marfan's syndrome, ArnoldChiari malformation, spontaneous pneumothorax x 21, scoliosis, back pain, bilateral leg pain, MVR, sinus infections, STATED HAS POOR CIRCULATION, viral meningitis, HEP C. "KYPHOSIS" History of Any Multi-Drug Resistant Organisms: MRSA Date of last positivie culture/infection: 05/05/2010 MDRO Source:: back per patient Past Surgical History: Cardiac Valve Replacement, Coronary Bypass/CABG, Joint Replacement Additional Past Surgical History / Comment(s): 10-27-16 I&D RT FOREARM ABCESS left upper lobe remove age 16, left hip fracture-ORIF, right foot corrective surgery, R shoulder surgery following injury, CABG x4 vessel, aortic grafts, aortic valve replaced as child (2 separate surgeries), tiffani lens removed. Past Anesthesia/Blood Transfusion Reactions: No Reported Reaction Past Psychological History: Anxiety Smoking Status: Current every day smoker Past Alcohol Use History: None Reported Past Drug Use History: Heroin, IV Drug Use, Marijuana, Opiates - Past Family History Father Additional Family Medical History / Comment(s): Father is alive in his 50s with history of AIDS. Mother Family Medical History: Diabetes Mellitus Additional Family Medical History / Comment(s): Mother at age 49 from liver cirrhosis secondary to alcohol abuse. Brother(s) Additional Family Medical History / Comment(s): Patient has one brother with no major medical problems. Patient does not have any sisters. Patient does not have any children. Medications and Allergies Allergies Allergy/AdvReac Type Severity Reaction Status Date / Time chlordiazepoxide HCl Allergy Unknown Verified 03/03/17 23:10 [From Librium] ketorolac tromethamine Allergy PANIC Verified 03/03/17 23:10 [From Toradol] ATTACK Penicillins Allergy Rash/Hives Verified 03/03/17 23:10 prochlorperazine edisylate Allergy PANIC Verified 03/03/17 23:10 [From Compazine] ATTACK prochlorperazine maleate Allergy PANIC Verified 03/03/17 23:10 [From Compazine] ATTACK Physical Examination - Vital Signs Vital Signs: Vital Signs Temp Pulse Pulse Resp BP BP Pulse Ox 03/05/17 17:09 79 16 03/05/17 16:48 99.8 F H 79 16 133/65 100 03/05/17 11:47 76 18 126/66 03/05/17 05:46 98.7 F 88 18 143/75 97 Intake and Output 03/05/17 03/05/17 03/05/17 06:59 14:59 22:59 Other: Weight 50.031 kg Patient Weight 03/06/17 06:59 Weight 50.031 kg - Constitutional General appearance: average body habitus, cooperative - EENT EENT: PERRL, mucous membranes moist - Respiratory Respiratory: lungs clear, normal breath sounds - Cardiovascular Cardiovascular: regular rate, normal S1, normal S2 Extremities: no peripheral edema bilaterally - Gastrointestinal Gastrointestinal: normoactive bowel sounds - Integumentary Integumentary: normal - Neurologic Cranial nerve examination: PERRL, EOMI, VFF, V1/V2/V3 grossly intact, face symmetric, tongue midline, intact gag reflex, intact corneal reflex, normal palatal elevation Speech examination: intact Sensorimotor examination: intact Motor examination - right side: 4/5: biceps, triceps, wrist flexion, wrist extension, microelectronics technician, hip flexors, knee extensors, dorsiflexion, toe extension (EHL) , plantarflexion Motor examination - left side: 4/5: biceps, triceps, wrist flexion, wrist extension, microelectronics technician, hip flexors, knee extensors, dorsiflexion, toe extension (EHL) , plantarflexion Detailed sensory examination: intact Spine examination: cervical: scoliosis Spine tenderness: cervical: midline, lateral Reflex and gait examination: intact Reflexes: 1+: ankle, bicep, knee, tricep - Psychiatric Psychiatric: mood/affect appropriate, depressed, cooperative Results - Laboratory Findings CBC and BMP: 03/05/17 08:14 03/05/17 08:14 Abnormal Lab Findings: Abnormal Labs 03/03/17 03/04/17 03/05/17 23:15 11:32 08:14 PT 23.9 H Albumin 3.3 L Urine Opiates Screen Detected H U Benzodiazepines Scrn Detected H Urine Cocaine Screen Detected H U Marijuana (THC) Screen Detected H 03/05/17 08:14 PT 25.3 H Albumin Urine Opiates Screen U Benzodiazepines Scrn Urine Cocaine Screen U Marijuana (THC) Screen Assessment and Plan (1) Arnold-Chiari malformation, type I Status: Acute Code(s): G93.5 - COMPRESSION OF BRAIN (2) Occipital neuritis Status: Acute Code(s): M54.81 - OCCIPITAL NEURALGIA (3) Hepatitis C antibody test positive Status: Acute Code(s): R76.8 - OTHER SPECIFIED ABNORMAL IMMUNOLOGICAL FINDINGS IN SERUM (4) Marfan syndrome Status: Acute Code(s): Q87.40 - MARFAN'S SYNDROME, UNSPECIFIED (5) Mechanical heart valve present Status: Acute Code(s): Z95.2 - PRESENCE OF PROSTHETIC HEART VALVE (6) Polysubstance dependence including opioid type drug with complication, continuous use Status: Acute Code(s): F11.229 - OPIOID DEPENDENCE WITH INTOXICATION, UNSPECIFIED Plan: This patient is a 31-year-old female who was admitted to the inpatient psychiatric unit yesterday for treatment of depression. She has multiple complex medical issues as outlined above. Neurology was consulted today for evaluation of neck pain and headaches. She has significant evidence for bilateral occipital neuritis. She also complains of suboccipital pain likely secondary to her history of Arnold-Chiari decompressive craniotomy procedure done years ago at [facility]. We're recommending for her to undergo MRI of the brain with and without gadolinium. She will also require MRI of the cervical spine as there is pain in the cervical region with the swelling in the right paracervical muscles. We will request anesthesia consultation for bilateral occipital nerve block procedure. Depending on the results of her MRI findings she may require further tertiary care given her history of severe suboccipital pain. We will continue close neurological follow-up of this patient during this admission. Her overall prognosis at this time remains very guarded. Time with Patient: Greater than 30
[2017-03-06] MEDS: ACETAMINOPHEN TAB 325 MG TAB PO PRN ×2 (06:41→12:42)
[2017-03-06 06:45] VITALS: TEMP 99.5
[2017-03-06] MEDS: GABAPENTIN 400 MG CAP PO SCH (08:04)
[2017-03-06] MEDS: NICOTINE 14MG/24HR PATCH TRANSDERM SCH (08:06)
[2017-03-06 08:22] LABS: INR 2.7 (<1.1); Prothrombin Time 25.6 sec (9.0-12.0)
--- NOTE | 2017-03-06 08:45 | P.PN ---
Progress Note - Text INTERVERAL HISTORY: Patient discussed at team treatment meeting, review of record, met with patient. Patient came to office in a wheelchair. Patient reports that she is no longer suicidal, just aggravated and frustrated. States she wants to know what's going on and to get some treatment. Patient had been admitted here to medical floor and pain medicines had been reduced/discontinued, discharged and returned on the day of her discharge reporting suicide ideation. She was admitted to the inpatient unit and now has been worked up and seen by neurology, who is recommending she be transferred to [facility]. Dr Castañeda told her to stay off her feet, using wheelchair. MENTAL STATUS EXAM:Patient alert and oriented 3, good eye contact, poorly groomed street clothing, disheveled. Speech normal volume, rate and production. Coherent, logical and goal directed thought process. No ULISES, no FOI. [No TB/TW/ TI] Denied auditory and visual hallucinations. Denied paranoid ideation, delusions or IOR. Memory grossly intact Cognition average Mood dysphoric, affect and constricted, congruent with mood. Denies suicidal ideation, denies homicidal ideation. Insight full; Judgment grossly intact for treatment purposes bilateral occipital neuritis. Opioid-induced mood disorder R/O Depression, unspecified Opioid use disorder, severe Opioid withdrawal Cocaine use, mild PLAN: Discussion with Dr Blake for transfer to higher level of care, either medical floor here or [facility]. Continue medication as recommend by neurology and medicine consults.
[2017-03-06] MEDS ORDERED: METHADONE 5 MG TAB PO SCH (09:00)
[2017-03-06 09:37] VITALS: BMI 16.7
--- NOTE | 2017-03-06 11:47 | P.DS ---
Providers Date of admission: 03/04/17 04:07 Expected date of discharge: 03/06/17 Attending physician: Mony Bernstein MD Consults: 03/04/17 04:16 Consult Physician Routine Consulting Provider: Jah Curry Consult Reason/Comments: H&P, rule out metabolic disorder Do you want consulting provider notified?: Yes, Notify in am 03/05/17 17:01 Consult Physician Routine Consulting Provider: Mathew Wilks Consult Reason/Comments: Consult Neurology- Pt has history of brain malformation Do you want consulting provider notified?: Yes 03/06/17 07:00 Consult Anesthesia Routine Consulting Provider: Anesthesia,Services Consult Reason/Comments: Bilateral occipital nerve blocks. Primary care physician: Stated None Hospital Course: ADMISSION HISTORY: Patient was admitted to the mental health unit with report of depression and anxiety. She had just been discharged from this hospital for possible sepsis and infection. Patient has a complex medical issues including history of Marfan syndrome, Arnold-Chiari decompression surgery, hepatitis C, scoliosis, mitral valve regurgitation, coronary artery bypass grafting 4, aortic valve replacement, and history of viral meningitis. She was admitted with complaints of depression and anxiety. HOSPITAL COURSE: Neurology was consult it for patient, Dr. Wilks saw patient. His report follows ... More recently after this recent episode of possible sepsis she was discharged home. There was evidence of decompressive craniotomy noted from her previous Arnold-Chiari surgery that was done for her at age 15 at [facility] in [place] as noted at a very young age. She apparently had follow-up a year later following this surgery and there was no other recent follow-up for the Arnold-Chiari decompressive surgery. Patient states that last week she was complaining of headache but was not further evaluated for this. We did review the results of her computed tomography scan of the brain and cervical spine with her today both of which are negative. CT of the cervical spine revealed no evidence of acute fracture. There was anterior subluxation noted at C4 and C5 which is unchanged from previous study done in 2013. Patient states that her pain is quite severe and is mostly a throbbing and pressure-like pain. His is mostly radiating from the neck area. On examination she does have significant muscle tenderness mostly on the right side of the neck as well as the suboccipital area. She describes the pain as 9/10 in intensity. On her examination she is also noted to have a slight swelling on the right side of the neck on the muscle area. She will require further neuro imaging of the brain and cervical spine for further assessment. On palpation of the suboccipital area she has severe excruciating pain consistent with bilateral occipital neuritis. We are recommending anesthesia consultation for bilateral occipital nerve block procedure for her. Due to the multiple complex medical issues her overall condition at this time remains very guarded. Depending on the MRI results further recommendations will be given. Neurology is now This patient is a 31-year-old female who was admitted to the inpatient psychiatric unit yesterday for treatment of depression. She has multiple complex medical issues as outlined above. Neurology was consulted today for evaluation of neck pain and headaches. She has significant evidence for bilateral occipital neuritis. She also complains of suboccipital pain likely secondary to her history of Arnold-Chiari decompressive craniotomy procedure done years ago at [facility]. We're recommending for her to undergo MRI of the brain with and without gadolinium. She will also require MRI of the cervical spine as there is pain in the cervical region with the swelling in the right paracervical muscles. We will request anesthesia consultation for bilateral occipital nerve block procedure. Depending on the results of her MRI findings she may require further tertiary care given her history of severe suboccipital pain. We will continue close neurological follow-up of this patient during this admission. Her overall prognosis at this time remains very guarded. Today after discussion with Dr. Blake, who is our attending physician, it was decided she needed to be transferred to a higher level of care. Dr. Blake is expecting to hear from [facility] for transfer. We will prepare her for transfer. Assessment: Patient is stable from a psychiatric point of view. No psychosis, no danger to self or others. History of substance use. Needs higher level of care for medical problems. Assessment and Plan (1) Arnold-Chiari malformation, type I Status: Acute Code(s): G93.5 - COMPRESSION OF BRAIN (2) Occipital neuritis Status: Acute Code(s): M54.81 - OCCIPITAL NEURALGIA (3) Hepatitis C antibody test positive Status: Acute Code(s): R76.8 - OTHER SPECIFIED ABNORMAL IMMUNOLOGICAL FINDINGS IN SERUM (4) Marfan syndrome Status: Acute Code(s): Q87.40 - MARFAN'S SYNDROME, UNSPECIFIED (5) Mechanical heart valve present Status: Acute Code(s): Z95.2 - PRESENCE OF PROSTHETIC HEART VALVE PLAN: Discharge. Transfer to [facility] Pertinent Studies: CT of head Procedures: CT of head Patient Condition at Discharge: Stable Plan - Discharge Summary New Discharge Prescriptions: New cloNIDine HCL [Catapres] 0.1 mg PO QID PRN #1 tab PRN Reason: Opioid withdrawal symptoms Gabapentin [Neurontin] 400 mg PO TID #1 cap Methadone [Dolophine] 5 mg PO BID #1 tab OLANZapine [ZyPREXA] 5 mg PO Q6HR PRN tab PRN Reason: Agitation Or Acute Psychosis Warfarin [Coumadin] 5 mg PO DAILY@1800 #1 tab Continue Clindamycin [Cleocin] 450 mg PO Q8H #90 capsule Discontinued Warfarin [Coumadin] 3 mg PO HS #30 Discharge Medication List Clindamycin [Cleocin] 450 mg PO Q8H #90 capsule 03/06/17 [Rx] Gabapentin [Neurontin] 400 mg PO TID #1 cap 03/06/17 [Rx] Methadone [Dolophine] 5 mg PO BID #1 tab 03/06/17 [Rx] OLANZapine [ZyPREXA] 5 mg PO Q6HR PRN tab 03/06/17 [Rx] Warfarin [Coumadin] 5 mg PO DAILY@1800 #1 tab 03/06/17 [Rx] cloNIDine HCL [Catapres] 0.1 mg PO QID PRN #1 tab 03/06/17 [Rx] Follow up Appointment(s)/Referral(s): None,Stated [Primary Care Provider] - 1-2 days Patient Instructions/Handouts: Acute Low Back Pain (ED), Chronic Back Pain (ED) Discharge Disposition: OTHER INSTITUTION NOT DEFINED
[2017-03-06 12:44] VITALS: BP 106/51; PULSE 69; RESP 18
[2017-03-06] MEDS ORDERED: ALPRAZolam 0.5 MG TAB PO PRN (13:45)
[2017-03-07] MEDS ORDERED: METHADONE 5 MG TAB PO SCH (09:00)
== END 2017-03-06 14:11 | disposition short-term general hospital (02) | DRG 896 ==
LOC: EC 22:31 → 3MHU 03-04 04:07
PROVIDERS: ADMIT Psychiatry & Neurology Addiction Medicine; ATTEND Psychiatry & Neurology Addiction Medicine
DX: F11.24 Opioid dependence with opioid-induced mood disorder (principal); G93.5 Compression of brain; Q87.40 Marfan syndrome, unspecified; R45.851 Suicidal ideations; F11.23 Opioid dependence with withdrawal; F17.200 Nicotine dependence, unspecified, uncomplicated; F32.9 Major depressive disorder, single episode, unspecified; F41.9 Anxiety disorder, unspecified; G89.29 Other chronic pain; I34.0 Nonrheumatic mitral (valve) insufficiency; M41.9 Scoliosis, unspecified; M54.81 Occipital neuralgia; B19.20 Unspecified viral hepatitis C without hepatic coma; F14.90 Cocaine use, unspecified, uncomplicated; M19.90 Unspecified osteoarthritis, unspecified site; M54.9 Dorsalgia, unspecified; M54.2 Cervicalgia; F12.90 Cannabis use, unspecified, uncomplicated; R51 Headache; Z59.0 Homelessness; Z79.01 Long term (current) use of anticoagulants; Z95.1 Presence of aortocoronary bypass graft; Z95.2 Presence of prosthetic heart valve; Z86.14 Personal history of Methicillin resistant Staphylococcus aureus infection; Z88.5 Allergy status to narcotic agent; Z88.0 Allergy status to penicillin; Z88.8 Allergy status to other drugs, medicaments and biological substances; Z96.60 Presence of unspecified orthopedic joint implant
CPT/HCPCS: 70450; 72125; 80053; 80306; 82075; 84443; 85027; 85610; 99285

== ENCOUNTER 2017-03-29 14:57 | Emergency (ER) | payer OTHER ==
[2017-03-29 15:12] VITALS: BP 124/61; PULSE 98; RESP 20; TEMP 98.1
--- NOTE | 2017-03-29 17:09 | ED ---
General Adult HPI - General Chief complaint: Recheck/Abnormal Lab/Rx Stated complaint: flank pain/neck swelling Time Seen by Provider: 03/29/17 16:29 Source: patient, RN notes reviewed Mode of arrival: ambulatory Limitations: no limitations - History of Present Illness Initial comments: 31-year-old female well-known emergency Department chief complaint left flank pain, neck pain. Patient has chronic neck pain and was admitted and transferred [facility] for this evaluated felt there is no need for surgery any further process. Patient states the pain is ongoing. Patient complains of left rib, chest wall pain. She is concerned about possible pneumothorax. Patient denies any shortness breath but does have some pain with deep inspiration. Patient denies any other complaints. - Related Data Home Medications Medication Instructions Recorded Confirmed Warfarin [Coumadin] 5 mg PO HS 03/29/17 03/29/17 Allergies Allergy/AdvReac Type Severity Reaction Status Date / Time chlordiazepoxide HCl Allergy Unknown Verified 03/29/17 16:31 [From Librium] ketorolac tromethamine Allergy PANIC Verified 03/29/17 16:31 [From Toradol] ATTACK Penicillins Allergy Rash/Hives Verified 03/29/17 16:31 prochlorperazine edisylate Allergy PANIC Verified 03/29/17 16:31 [From Compazine] ATTACK prochlorperazine maleate Allergy PANIC Verified 03/29/17 16:31 [From Compazine] ATTACK Review of Systems ROS Statement: Those systems with pertinent positive or pertinent negative responses have been documented in the HPI. ROS Other: All systems not noted in ROS Statement are negative. Past Medical History Past Medical History: CVA/TIA, Liver Disease, Osteoarthritis (OA), Pneumonia, Vascular Disorder Additional Past Medical History / Comment(s): marfan's syndrome, ArnoldChiari malformation, spontaneous pneumothorax x 21, scoliosis, back pain, bilateral leg pain, MVR, sinus infections, STATED HAS POOR CIRCULATION, viral meningitis, HEP C. "KYPHOSIS" History of Any Multi-Drug Resistant Organisms: MRSA Date of last positivie culture/infection: 05/05/2010 MDRO Source:: back per patient Past Surgical History: Cardiac Valve Replacement, Coronary Bypass/CABG, Joint Replacement Additional Past Surgical History / Comment(s): 10-27-16 I&D RT FOREARM ABCESS left upper lobe remove age 16, left hip fracture-ORIF, right foot corrective surgery, R shoulder surgery following injury, CABG x4 vessel, aortic grafts, aortic valve replaced as child (2 separate surgeries), tiffani lens removed. Past Anesthesia/Blood Transfusion Reactions: No Reported Reaction Past Psychological History: Anxiety Smoking Status: Current every day smoker Past Alcohol Use History: None Reported Past Drug Use History: Heroin, IV Drug Use, Marijuana, Opiates - Past Family History Father Additional Family Medical History / Comment(s): Father is alive in his 50s with history of AIDS. Mother Family Medical History: Diabetes Mellitus Additional Family Medical History / Comment(s): Mother at age 49 from liver cirrhosis secondary to alcohol abuse. Brother(s) Additional Family Medical History / Comment(s): Patient has one brother with no major medical problems. Patient does not have any sisters. Patient does not have any children. General Exam Limitations: no limitations General appearance: alert, in no apparent distress Head exam: Present: atraumatic, normocephalic, normal inspection Neck exam: Present: normal inspection, tenderness (Minimal paraspinal), full ROM. Absent: meningismus, lymphadenopathy Respiratory exam: Present: normal lung sounds bilaterally, chest wall tenderness. Absent: respiratory distress, wheezes, rales, rhonchi, stridor Cardiovascular Exam: Present: regular rate, normal rhythm, normal heart sounds. Absent: systolic murmur, diastolic murmur, rubs, gallop, clicks Course Vital Signs 03/29/17 15:09 Temperature 98.1 F Pulse Rate 98 Respiratory 20 Rate Blood Pressure 124/61 O2 Sat by Pulse 98 Oximetry Medical Decision Making - Medical Decision Making Patient left after being evaluated. Disposition Clinical Impression: Chronic neck pain, Flank pain Disposition: Left Against Medical Advice Condition: Undetermined Referrals: None,Stated [Primary Care Provider] - 1-2 days
== END 2017-03-29 16:53 | disposition left against medical advice (07) ==
LOC: EC 14:57
DX: R10.9 Unspecified abdominal pain (principal); G89.29 Other chronic pain; M54.2 Cervicalgia; R07.81 Pleurodynia; F17.200 Nicotine dependence, unspecified, uncomplicated; Z53.29 Procedure and treatment not carried out because of patient's decision for other reasons; Z86.73 Personal history of transient ischemic attack (TIA), and cerebral infarction without residual deficits; Z95.1 Presence of aortocoronary bypass graft; Z88.0 Allergy status to penicillin; Z88.5 Allergy status to narcotic agent; Z88.8 Allergy status to other drugs, medicaments and biological substances; Z79.01 Long term (current) use of anticoagulants
CPT/HCPCS: 99283

== ENCOUNTER 2017-03-31 02:07 | Emergency (ER) | payer OTHER ==
--- NOTE | 2017-03-31 02:30 | ED ---
General Adult HPI - General Chief complaint: Neck Pain/Injury Stated complaint: Neck pain Time Seen by Provider: 03/31/17 02:18 Source: patient, RN notes reviewed Mode of arrival: ambulatory Limitations: no limitations - History of Present Illness Initial comments: Patient is a 31-year-old female presenting to the emergency department complaining of neck pain. Patient states discomfort has been steady for the past month. Patient states she did have a computed tomography scan done and there was question of a disc problem. Patient was transferred at [facility] and he felt her symptoms were likely related to her Marfan's and she would not benefit from surgical repair. Patient states discomfort is steady. Patient also questions if her. Lungs could be followed up with fluid. Patient does have a history of pneumothorax in each side previously. No weakness. No loss of sensation. - Related Data Home Medications Medication Instructions Recorded Confirmed Warfarin [Coumadin] 5 mg PO HS 03/29/17 03/29/17 Allergies Allergy/AdvReac Type Severity Reaction Status Date / Time chlordiazepoxide HCl Allergy Unknown Verified 03/31/17 02:16 [From Librium] ketorolac tromethamine Allergy PANIC Verified 03/31/17 02:16 [From Toradol] ATTACK Penicillins Allergy Rash/Hives Verified 03/31/17 02:16 prochlorperazine edisylate Allergy PANIC Verified 03/31/17 02:16 [From Compazine] ATTACK prochlorperazine maleate Allergy PANIC Verified 03/31/17 02:16 [From Compazine] ATTACK Review of Systems ROS Statement: Those systems with pertinent positive or pertinent negative responses have been documented in the HPI. ROS Other: All systems not noted in ROS Statement are negative. Constitutional: Denies: fever Eyes: Denies: eye pain ENT: Denies: ear pain Respiratory: Reports: dyspnea. Denies: cough Cardiovascular: Denies: edema Endocrine: Denies: fatigue Gastrointestinal: Denies: abdominal pain Genitourinary: Denies: dysuria Musculoskeletal: Reports: back pain (Chronic) Skin: Denies: lesions Neurological: Denies: headache Past Medical History Past Medical History: CVA/TIA, Liver Disease, Osteoarthritis (OA), Pneumonia, Vascular Disorder Additional Past Medical History / Comment(s): marfan's syndrome, ArnoldChiari malformation, spontaneous pneumothorax x 21, scoliosis, back pain, bilateral leg pain, MVR, sinus infections, STATED HAS POOR CIRCULATION, viral meningitis, HEP C. "KYPHOSIS" History of Any Multi-Drug Resistant Organisms: MRSA Date of last positivie culture/infection: 05/05/2010 MDRO Source:: back per patient Past Surgical History: Cardiac Valve Replacement, Coronary Bypass/CABG, Joint Replacement Additional Past Surgical History / Comment(s): 10-27-16 I&D RT FOREARM ABCESS left upper lobe remove age 16, left hip fracture-ORIF, right foot corrective surgery, R shoulder surgery following injury, CABG x4 vessel, aortic grafts, aortic valve replaced as child (2 separate surgeries), tiffani lens removed. Past Anesthesia/Blood Transfusion Reactions: No Reported Reaction Past Psychological History: Anxiety Smoking Status: Current every day smoker Past Alcohol Use History: None Reported Past Drug Use History: Heroin, IV Drug Use, Marijuana, Opiates - Past Family History Father Additional Family Medical History / Comment(s): Father is alive in his 50s with history of AIDS. Mother Family Medical History: Diabetes Mellitus Additional Family Medical History / Comment(s): Mother at age 49 from liver cirrhosis secondary to alcohol abuse. Brother(s) Additional Family Medical History / Comment(s): Patient has one brother with no major medical problems. Patient does not have any sisters. Patient does not have any children. General Exam Limitations: no limitations General appearance: alert, in no apparent distress Head exam: Present: atraumatic Expanded Pupils: Miosissis: Bilateral ENT exam: Present: normal oropharynx Neck exam: Present: normal inspection. Absent: tenderness Respiratory exam: Present: normal lung sounds bilaterally Cardiovascular Exam: Present: regular rate, normal rhythm, systolic murmur GI/Abdominal exam: Present: soft. Absent: tenderness Extremities exam: Present: normal inspection Neurological exam: Present: alert Expanded Sensory exam: Upper Extremity Light Touch: Normal Motor strength exam: RUE: 5, LUE: 5 Psychiatric exam: Present: normal affect, normal mood Skin exam: Present: normal color Course Vital Signs 03/31/17 02:14 Temperature 97.1 F L Pulse Rate 95 Respiratory 18 Rate Blood Pressure 121/69 O2 Sat by Pulse 100 Oximetry Medical Decision Making - Medical Decision Making Patient resting comfortably in bed. Patient updated on results. - Radiology Data Radiology results: image reviewed (Chest x-ray shows no acute process) Disposition Clinical Impression: Chronic pain Disposition: HOME SELF-CARE Condition: Stable Instructions: Chronic Pain (ED) Additional Instructions: Please follow-up with a primary care physician next week. Return for worsening or changing symptoms or other concerns. Referrals: Karina Chand MD [STAFF PHYSICIAN] - 1-2 days Time of Disposition: 03:18
--- NOTE | 2017-03-31 03:11 | XR ---
EXAM: XR Chest, 2 Views CLINICAL HISTORY: Reason: Chest Pain TECHNIQUE: Frontal and lateral views of the chest. COMPARISON: 02/11/17 FINDINGS: Lungs: Sutures over left upper lung zone suggest partial pneumonectomy. Pleural space: Unremarkable. No pneumothorax. Heart: Unremarkable. No cardiomegaly. Mediastinum: Unremarkable. Bones/joints: Sternal wires are again noted. Focal kyphosis in lower thoracic spine. Fixation plate and screws of proximal right humerus. IMPRESSION: No acute findings or substantial change.
[2017-03-31 03:33] VITALS: BP 128/70; PULSE 65; RESP 16; TEMP 97.4
== END 2017-03-31 03:32 | disposition home or self-care (01) ==
LOC: EC 02:07
DX: G89.29 Other chronic pain (principal); M54.2 Cervicalgia; R01.1 Cardiac murmur, unspecified; F17.200 Nicotine dependence, unspecified, uncomplicated; Z79.01 Long term (current) use of anticoagulants; Z88.0 Allergy status to penicillin; Z88.6 Allergy status to analgesic agent; Z88.8 Allergy status to other drugs, medicaments and biological substances; Z86.73 Personal history of transient ischemic attack (TIA), and cerebral infarction without residual deficits
CPT/HCPCS: 71020; 99283

== ENCOUNTER 2017-04-03 22:23 | Emergency (ER) | payer OTHER ==
[2017-04-03 22:27] VITALS: BP 130/63; PULSE 99; RESP 18
[2017-04-03 22:35] VITALS: TEMP 98.8
[2017-04-03] MEDS ORDERED: Acetaminophen-Codeine 300-30mg TAB PO STA (22:50)
--- NOTE | 2017-04-03 22:56 | ED ---
General Adult HPI - General Chief complaint: Headache Stated complaint: Pain Time Seen by Provider: 04/03/17 22:38 Source: patient, RN notes reviewed, old records reviewed Mode of arrival: ambulatory Limitations: no limitations - History of Present Illness Initial comments: This is a 31-year-old female well known to the emergency department presenting today with a chief complaint ofAcute exacerbationOf chronic neck, back, and headache pain.Patient has history of Marfan's syndrome. It's your purse that she was at [facility] One month ago for evaluation for the neck pain.The physicians there determined it was related to her genetic condition. Patient Reports she's been taking Motrin For the pain however it is not helping. She was seen in the emergency department Three days ago for similar complaints.She reports that the Physician did not give her any medication for pain.Patient does have a long history ofDrug abuse.She denies any falls, Trauma, Vision changes,Fevers, chills, Abdominal pain, nausea, vomiting. - Related Data Home Medications Medication Instructions Recorded Confirmed Warfarin [Coumadin] 5 mg PO HS 03/29/17 04/03/17 Allergies Allergy/AdvReac Type Severity Reaction Status Date / Time chlordiazepoxide HCl Allergy Unknown Verified 04/03/17 22:27 [From Librium] ketorolac tromethamine Allergy PANIC Verified 04/03/17 22:27 [From Toradol] ATTACK Penicillins Allergy Rash/Hives Verified 04/03/17 22:27 prochlorperazine edisylate Allergy PANIC Verified 04/03/17 22:27 [From Compazine] ATTACK prochlorperazine maleate Allergy PANIC Verified 04/03/17 22:27 [From Compazine] ATTACK Review of Systems ROS Statement: Those systems with pertinent positive or pertinent negative responses have been documented in the HPI. ROS Other: All systems not noted in ROS Statement are negative. Past Medical History Past Medical History: CVA/TIA, Liver Disease, Osteoarthritis (OA), Pneumonia, Vascular Disorder Additional Past Medical History / Comment(s): marfan's syndrome, ArnoldChiari malformation, spontaneous pneumothorax x 21, scoliosis, back pain, bilateral leg pain, MVR, sinus infections, STATED HAS POOR CIRCULATION, viral meningitis, HEP C. "KYPHOSIS" History of Any Multi-Drug Resistant Organisms: MRSA Date of last positivie culture/infection: 05/05/2010 MDRO Source:: back per patient Past Surgical History: Cardiac Valve Replacement, Coronary Bypass/CABG, Joint Replacement Additional Past Surgical History / Comment(s): 10-27-16 I&D RT FOREARM ABCESS left upper lobe remove age 16, left hip fracture-ORIF, right foot corrective surgery, R shoulder surgery following injury, CABG x4 vessel, aortic grafts, aortic valve replaced as child (2 separate surgeries), tiffani lens removed. Past Anesthesia/Blood Transfusion Reactions: No Reported Reaction Past Psychological History: Anxiety Smoking Status: Current every day smoker Past Alcohol Use History: None Reported Past Drug Use History: Heroin, IV Drug Use, Marijuana, Opiates - Past Family History Father Additional Family Medical History / Comment(s): Father is alive in his 50s with history of AIDS. Mother Family Medical History: Diabetes Mellitus Additional Family Medical History / Comment(s): Mother at age 49 from liver cirrhosis secondary to alcohol abuse. Brother(s) Additional Family Medical History / Comment(s): Patient has one brother with no major medical problems. Patient does not have any sisters. Patient does not have any children. General Exam - General Exam Comments Initial Comments: Cachetic appearing 31 year old female. She does not appear in any acute distress. Body habitus consistent with Marfan's Syndrome. Limitations: no limitations General appearance: alert, in no apparent distress Head exam: Present: atraumatic, normocephalic, normal inspection Eye exam: Present: PERRL, EOMI. Absent: normal appearance (Patient has her Lens Removed, iris have movement on exam. ), scleral icterus, conjunctival injection, periorbital swelling ENT exam: Present: normal exam, normal oropharynx, mucous membranes moist Neck exam: Present: normal inspection. Absent: tenderness, meningismus, lymphadenopathy Respiratory exam: Present: normal lung sounds bilaterally Cardiovascular Exam: Present: regular rate, normal rhythm, normal heart sounds. Absent: systolic murmur, diastolic murmur, rubs, gallop, clicks GI/Abdominal exam: Present: soft, normal bowel sounds. Absent: distended, tenderness, guarding, rebound, rigid Extremities exam: Present: normal inspection, full ROM, normal capillary refill. Absent: tenderness, pedal edema, joint swelling, calf tenderness Back exam: Present: normal inspection Neurological exam: Present: alert, oriented X3, CN II-XII intact Psychiatric exam: Present: normal affect, normal mood Course Vital Signs 04/03/17 04/03/17 22:24 22:35 Temperature 99.8 F H 98.8 F Pulse Rate 99 Respiratory 18 Rate Blood Pressure 130/63 O2 Sat by Pulse 100 Oximetry Medical Decision Making - Medical Decision Making This is a 31-year-old female well known to the emergency department presenting today with a chief complaint ofAcute exacerbationOf chronic neck, back, and headache pain.Patient has history of Marfan's syndrome. It's your purse that she was at [facility] One month ago for evaluation for the neck pain.The physicians there determined it was related to her genetic condition. Patient Reports she's been taking Motrin For the pain however it is not helping. She was seen in the emergency department Three days ago for similar complaints.She reports that the Physician did not give her any medication for pain. Patient has no meningeal signs, vital signs within normal limits. Patient has no recent trauma or falls for concern of acute abnormalities. Patient was given 1 tylneol with codeine in ED. Discussed I will not write a prescription in her history of drug abuse. PAtient agrees and left. Discussed follow up with a PCP. Disposition Clinical Impression: Chronic pain Disposition: HOME SELF-CARE Condition: Good Instructions: Chronic Pain (ED) Additional Instructions: Follow-up with primary care provider tomorrow. Return if there is any worsening signs or symptoms. Referrals: None,Stated [Primary Care Provider] - 1-2 days Karina Chand MD [STAFF PHYSICIAN] - 1-2 days Time of Disposition: 22:54
== END 2017-04-03 23:00 | disposition home or self-care (01) ==
LOC: EC 22:23
DX: G89.29 Other chronic pain (principal); R51 Headache; M54.2 Cervicalgia; Q87.40 Marfan syndrome, unspecified; F17.200 Nicotine dependence, unspecified, uncomplicated; Z86.73 Personal history of transient ischemic attack (TIA), and cerebral infarction without residual deficits; Z95.1 Presence of aortocoronary bypass graft; Z88.0 Allergy status to penicillin; Z88.5 Allergy status to narcotic agent; Z88.8 Allergy status to other drugs, medicaments and biological substances; Z79.01 Long term (current) use of anticoagulants
CPT/HCPCS: 99283

== ENCOUNTER 2017-04-25 12:23 | Emergency (ER) | payer OTHER ==
[2017-04-25] MEDS ORDERED: HYDROcodone/APAP 5-325MG 1 EACH TAB PO STA (13:39)
--- NOTE | 2017-04-25 13:58 | ED ---
General Adult HPI - General Chief complaint: Neck Pain/Injury Stated complaint: Headache, Swollen Leg Time Seen by Provider: 04/25/17 13:22 Source: patient Mode of arrival: ambulatory Limitations: no limitations - History of Present Illness Initial comments: This is a 31-year-old female to history of Marfan's and Arnold-Chiari malformation who presents emergency department for chronic neck pain. The patient has been seen in this emergency department multiple times for this neck pain. She states that she has yet to establish care with a primary doctor because of insurance issues. She states that she just couldn't take it anymore and decided come emergency department. She also admits to intermittent right leg swelling which is new. She denies any chest pain or shortness of breath. She denies any numbness, tingling, or weakness. She states that the pain in her neck is typical for her chronic pain just more severe. She's had full workup for this in this hospital also [facility] without any evidence for pathology requiring intervention. She denies any other complaints. - Related Data Home Medications Medication Instructions Recorded Confirmed Warfarin [Coumadin] 5 mg PO HS 03/29/17 04/25/17 Previous Rx's Medication Instructions Recorded Enoxaparin [Lovenox] 40 mg SQ Q12H #14 syringe 04/25/17 Warfarin [Coumadin] 5 mg PO DAILY #30 tab 04/25/17 Allergies Allergy/AdvReac Type Severity Reaction Status Date / Time chlordiazepoxide HCl Allergy Unknown Verified 04/25/17 14:42 [From Librium] ketorolac tromethamine Allergy PANIC Verified 04/25/17 14:42 [From Toradol] ATTACK Penicillins Allergy Rash/Hives Verified 04/25/17 14:42 prochlorperazine edisylate Allergy PANIC Verified 04/25/17 14:42 [From Compazine] ATTACK prochlorperazine maleate Allergy PANIC Verified 04/25/17 14:42 [From Compazine] ATTACK Review of Systems ROS Statement: Those systems with pertinent positive or pertinent negative responses have been documented in the HPI. ROS Other: All systems not noted in ROS Statement are negative. Past Medical History Past Medical History: CVA/TIA, Liver Disease, Osteoarthritis (OA), Pneumonia, Vascular Disorder Additional Past Medical History / Comment(s): marfan's syndrome, ArnoldChiari malformation, spontaneous pneumothorax x 21, scoliosis, back pain, bilateral leg pain, MVR, sinus infections, STATED HAS POOR CIRCULATION, viral meningitis, HEP C. "KYPHOSIS" History of Any Multi-Drug Resistant Organisms: MRSA Date of last positivie culture/infection: 05/05/2010 MDRO Source:: back per patient Past Surgical History: Cardiac Valve Replacement, Coronary Bypass/CABG, Joint Replacement Additional Past Surgical History / Comment(s): 10-27-16 I&D RT FOREARM ABCESS left upper lobe remove age 16, left hip fracture-ORIF, right foot corrective surgery, R shoulder surgery following injury, CABG x4 vessel, aortic grafts, aortic valve replaced as child (2 separate surgeries), tiffani lens removed. Past Anesthesia/Blood Transfusion Reactions: No Reported Reaction Past Psychological History: Anxiety Smoking Status: Current every day smoker Past Alcohol Use History: None Reported Past Drug Use History: Heroin, IV Drug Use, Marijuana, Opiates - Past Family History Father Additional Family Medical History / Comment(s): Father is alive in his 50s with history of AIDS. Mother Family Medical History: Diabetes Mellitus Additional Family Medical History / Comment(s): Mother at age 49 from liver cirrhosis secondary to alcohol abuse. Brother(s) Additional Family Medical History / Comment(s): Patient has one brother with no major medical problems. Patient does not have any sisters. Patient does not have any children. General Exam - General Exam Comments Initial Comments: Constitutional: Awake alert Appears comfortable Head: Normocephalic atraumatic Eyes: no conjunctival injection No scleral icterus EOMI Neck: No JVD Supple, left sided paraspinal muscle tenderness. No midline tenderness, full range of motion Heart: Regular rate rhythm normal S1-S2 no murmurs Lungs: Clear to auscultation bilaterally No wheezing No rales Abdomen: Soft nondistended nontender Extremities: Non edematous DP pulses intact Radial pulses intact Neuro: A&Ox3 No focal neurologic deficits Psych: Appropriate mood and affect Limitations: no limitations Course Vital Signs 04/25/17 04/25/17 12:46 13:05 Temperature 98.3 F 98.1 F Pulse Rate 88 87 Respiratory 17 18 Rate Blood Pressure 100/49 87/48 O2 Sat by Pulse 99 98 Oximetry Medical Decision Making - Medical Decision Making This is a 31-year-old female to history of Marfan's chronic neck pain who presents emergency department for worsening of her neck pain and right leg intermittent swelling. Doppler confirmed a nonocclusive DVT. The patient is supposed be on warfarin 5 mg daily for her history of heart valve surgery. She has been out of her medication for the last week. I gave the patient a dose of Lovenox while in the emergency department. She does not a primary care doctor so I spoke with Dr. Chand on the phone about the patient. She is happy to follow-up with her and recheck her INR. I'm going to restart her Coumadin and use Lovenox to bridge her area the patient was instructed to call Dr. Chand's office as soon as she leaves the emergency department for follow-up. If she has any worsening or changing symptoms she can return to the emergency department. Disposition Clinical Impression: DVT (deep venous thrombosis) Disposition: HOME SELF-CARE Condition: Stable Instructions: Warfarin (By mouth), Deep Venous Thrombosis (ED) Prescriptions: Enoxaparin [Lovenox] 40 mg SQ Q12H #14 syringe Warfarin [Coumadin] 5 mg PO DAILY #30 tab Referrals: None,Stated [Primary Care Provider] - 1-2 days Karina Chand MD [STAFF PHYSICIAN] - 1-2 days
--- NOTE | 2017-04-25 15:16 | US ---
EXAMINATION TYPE: US venous doppler duplex LE RT DATE OF EXAM: 04/25/2017 3:02 PM COMPARISON: US CLINICAL HISTORY: Swelling. EC patient with ankle swelling and right leg pain; HX of Marfan's Syndrom e with multiple surgeries for Aorta and Heart; off Coumadin 3 days ago SIDE PERFORMED: Right TECHNIQUE: The lower extremity deep venous system is examined utilizing real time linear array sonog blanca with graded compression, doppler sonography and color-flow sonography. VESSELS IMAGED: Common Femoral Vein Deep Femoral Vein Greater Saphenous Vein * Femoral Vein Popliteal Vein Small Saphenous Vein * Proximal Calf Veins (* superficial vessels) Right Leg: Dilated segment of right Popliteal Vein with internal wall echoes, yet color flow is note d within Popliteal Vein lumen suggesting non occluding DVT within dilated vein segment. Wall echoes a re noted mid Popliteal Vein as well, but is non occluding. Impression: Nonocclusive DVT right popliteal vein.
[2017-04-25] MEDS ORDERED: ENOXAPARIN 60 MG/0.6 ML SYRINGE SQ STA (15:21)
[2017-04-25 15:51] VITALS: BP 106/60; PULSE 83; RESP 24; TEMP 98
== END 2017-04-25 15:55 | disposition home or self-care (01) ==
LOC: EC 12:23
DX: I82.431 Acute embolism and thrombosis of right popliteal vein (principal); F17.200 Nicotine dependence, unspecified, uncomplicated; Z88.8 Allergy status to other drugs, medicaments and biological substances; Z88.6 Allergy status to analgesic agent; Z79.01 Long term (current) use of anticoagulants
CPT/HCPCS: 93971; 99284; 96372; J1650

== ENCOUNTER 2017-06-23 14:12 | Observation (INO) | payer OTHER ==
[2017-06-23] MEDS ORDERED: KETOROLAC 30 MG/ML 1 ML VIAL IVP STA (14:41)
[2017-06-23] MEDS ORDERED: ASPIRIN 81 MG PO STA (14:46)
--- NOTE | 2017-06-23 14:47 | ED ---
General Adult HPI - General Chief complaint: Back Pain/Injury Stated complaint: Pain in side/back Source: patient Mode of arrival: ambulatory Limitations: no limitations - History of Present Illness Initial comments: Pt is a 32 yo female presenting with thoughts of wanting to kill herself and left sided chest pain. Past medical history as below. Patient is well-known to our facility. The leg and back pain chronic in nature and the pt states that they are similar to previous episodes. Last month she stated that she had a stroke and was admitted to [facility]. She was noncompliant with her Coumadin which likely caused her to have the stroke (affecting right side). She stated that she recently got out of rehab for her stroke one week ago. Since that time she states that she's been undergoing a lot of changes. She states that she is having a squeezing sensation to her left chest. Sitting up makes it better. Laying back makes it worse. No radiation of pain. Last time that she has used IV heroin was 2 months ago. States that she's been compliant with her Coumadin. Has a follow-up appointment with her primary care physician on 2016. Patient is very tearful at bedside. When I asked what else is bothering her she states that she's been having thoughts of wanting to kill herself. States that she does not have a plan. Currently denies fevers, headaches, URI symptoms, shortness of breath, cough, nausea, vomiting, diarrhea, pain or burning with urination. - Related Data Home Medications Medication Instructions Recorded Confirmed Warfarin [Coumadin] 5 mg PO HS 03/29/17 06/23/17 Multivitamins, Thera [Multivitamin 1 tab PO DAILY 06/23/17 06/23/17 (formulary)] Allergies Allergy/AdvReac Type Severity Reaction Status Date / Time chlordiazepoxide HCl Allergy Unknown Verified 06/23/17 14:44 [From Librium] ketorolac tromethamine Allergy PANIC Verified 06/23/17 14:44 [From Toradol] ATTACK Penicillins Allergy Rash/Hives Verified 06/23/17 14:44 prochlorperazine edisylate Allergy PANIC Verified 06/23/17 14:44 [From Compazine] ATTACK prochlorperazine maleate Allergy PANIC Verified 06/23/17 14:44 [From Compazine] ATTACK Review of Systems ROS Statement: Those systems with pertinent positive or pertinent negative responses have been documented in the HPI. ROS Other: All systems not noted in ROS Statement are negative. Past Medical History Past Medical History: CVA/TIA, Liver Disease, Osteoarthritis (OA), Pneumonia, Vascular Disorder Additional Past Medical History / Comment(s): marfan's syndrome, ArnoldChiari malformation, spontaneous pneumothorax x 21, scoliosis, back pain, bilateral leg pain, MVR, sinus infections, STATED HAS POOR CIRCULATION, viral meningitis, HEP C. "KYPHOSIS" History of Any Multi-Drug Resistant Organisms: MRSA Date of last positivie culture/infection: 05/05/2010 MDRO Source:: back per patient Past Surgical History: Cardiac Valve Replacement, Coronary Bypass/CABG, Joint Replacement Additional Past Surgical History / Comment(s): 10-27-16 I&D RT FOREARM ABCESS left upper lobe remove age 16, left hip fracture-ORIF, right foot corrective surgery, R shoulder surgery following injury, CABG x4 vessel, aortic grafts, aortic valve replaced as child (2 separate surgeries), tiffani lens removed. Past Anesthesia/Blood Transfusion Reactions: No Reported Reaction Past Psychological History: Anxiety Smoking Status: Current every day smoker Past Alcohol Use History: None Reported Past Drug Use History: Heroin, IV Drug Use, Marijuana, Opiates - Past Family History Father Additional Family Medical History / Comment(s): Father is alive in his 50s with history of AIDS. Mother Family Medical History: Diabetes Mellitus Additional Family Medical History / Comment(s): Mother at age 49 from liver cirrhosis secondary to alcohol abuse. Brother(s) Additional Family Medical History / Comment(s): Patient has one brother with no major medical problems. Patient does not have any sisters. Patient does not have any children. General Exam Limitations: no limitations General appearance: alert, in no apparent distress, cachectic Head exam: Present: atraumatic, normocephalic, normal inspection Eye exam: Present: normal appearance, PERRL, EOMI. Absent: scleral icterus, conjunctival injection, periorbital swelling ENT exam: Present: normal exam, mucous membranes moist Neck exam: Present: normal inspection. Absent: tenderness, meningismus, lymphadenopathy Respiratory exam: Present: normal lung sounds bilaterally. Absent: respiratory distress, wheezes, rales, rhonchi, stridor Cardiovascular Exam: Present: regular rate, normal rhythm, normal heart sounds, systolic murmur, other (Systolic murmur. Clinic.). Absent: diastolic murmur, rubs, gallop, clicks GI/Abdominal exam: Present: soft, normal bowel sounds. Absent: distended, tenderness, guarding, rebound, rigid Extremities exam: Present: normal inspection, full ROM, normal capillary refill. Absent: tenderness, pedal edema, joint swelling, calf tenderness Back exam: Present: normal inspection Neurological exam: Present: alert, oriented X3, CN II-XII intact Psychiatric exam: Present: normal affect, normal mood Skin exam: Present: warm, dry, intact, normal color. Absent: rash Course Vital Signs 06/23/17 14:20 Temperature 97.9 F Pulse Rate 99 Respiratory 18 Rate Blood Pressure 117/63 O2 Sat by Pulse 97 Oximetry Medical Decision Making - Medical Decision Making Patient is a 32-year-old female presents for evaluation for chest pain times one week that is been constant and suicidal ideation. Recent stroke last month. Out of rehab last week. States that she's been going through a lot of changes. States that no one is taking care of her at home. Very tearful at bedside. Denies any alcohol or any other substance abuse. States that she's been compliant with her Coumadin. She has a history of a heart valve replacement. We'll order basic labs with EKG, coags, chest x-ray. I discussed with the patient that I will not be giving her any IV narcotics. She voiced understanding. Amenable to Toradol. States that she's had it in the past but states that she does not have a reaction to it. She states that she sometimes gets anxious with it. Amenable to taking it. Will also order an ASA. 1536: Reviewed EKG. Normal sinus rhythm at a rate of 80. NE 160. QRS 104. QTc 482. No ST changes. 1555: CXR revealed no acute process. Simialr to previous. Awaiting laboratory studies. 1615: Reviewed some of the laboratory studies. Evidence of a urinary tract infection though the sample is somewhat contaminated. Patient is having some pain with urination. Ordered a urine culture and started on Rocephin. Also notified that the patient's INR is supratherapeutic. No evidence of bleeding at this time. 1625: CBC within normal limits. Patient again requesting help for suicidal ideation. With her supratherapeutic INR and urinary tract infection, do not believe she is a candidate for psych alone. Page to admitting physician for Dr. Chand (Her PCP). 1640: Spoke with Dr. Roblero who agrees with observation. - Lab Data Result diagrams: 06/23/17 15:24 06/23/17 15:24 Lab Results 06/23/17 06/23/17 06/23/17 Range/Units 15:24 15:24 15:24 WBC 6.9 (3.8-10.6) k/uL RBC 4.12 (3.80-5.40) m/uL Hgb 11.3 L (11.4-16.0) gm/dL Hct 36.6 (34.0-46.0) % MCV 88.9 (80.0-100.0) fL MCH 27.4 (25.0-35.0) pg MCHC 30.8 L (31.0-37.0) g/dL RDW 14.8 (11.5-15.5) % Plt Count 245 (150-450) k/uL Neutrophils % 81 % Lymphocytes % 12 % Monocytes % 4 % Eosinophils % 1 % Basophils % 1 % Neutrophils # 5.6 (1.3-7.7) k/uL Lymphocytes # 0.8 L (1.0-4.8) k/uL Monocytes # 0.3 (0-1.0) k/uL Eosinophils # 0.0 (0-0.7) k/uL Basophils # 0.0 (0-0.2) k/uL Hypochromasia Slight PT (9.0-12.0) sec INR (<1.2) APTT (22.0-30.0) sec Sodium 137 (137-145) mmol/L Potassium 4.2 (3.5-5.1) mmol/L Chloride 100 (98-107) mmol/L Carbon Dioxide 26 (22-30) mmol/L Anion Gap 11 mmol/L BUN 6 L (7-17) mg/dL Creatinine 0.60 (0.52-1.04) mg/dL Est GFR (MDRD) Af Amer >60 (>60 ml/min/1.73 sqM) Est GFR (MDRD) Non-Af >60 (>60 ml/min/1.73 sqM) Glucose 83 (74-99) mg/dL Calcium 9.3 (8.4-10.2) mg/dL Magnesium 1.6 (1.6-2.3) mg/dL Total Bilirubin 0.6 (0.2-1.3) mg/dL AST 42 H (14-36) U/L ALT 36 (9-52) U/L Alkaline Phosphatase 106 (38-126) U/L Troponin I <0.012 (0.000-0.034) ng/mL Total Protein 8.0 (6.3-8.2) g/dL Albumin 4.0 (3.5-5.0) g/dL Urine Color Urine Appearance (Clear) Urine pH (5.0-8.0) Ur Specific [place] (1.001-1.035) Urine Protein (Negative) Urine Glucose (UA) (Negative) Urine Ketones (Negative) Urine Blood (Negative) Urine Nitrite (Negative) Urine Bilirubin (Negative) Urine Urobilinogen (<2.0) mg/dL Ur Leukocyte Esterase (Negative) Urine RBC (0-5) /hpf Urine WBC (0-5) /hpf Ur Squamous Epith Cells (0-4) /hpf Amorphous Sediment (None) /hpf Urine Bacteria (None) /hpf Hyaline Casts (0-2) /lpf Urine Mucus (None) /hpf Urine HCG, Qual (Not Detectd) Urine Opiates Screen (NotDetected) Ur Oxycodone Screen (NotDetected) Urine Methadone Screen (NotDetected) Ur Propoxyphene Screen (NotDetected) Ur Barbiturates Screen (NotDetected) U Tricyclic Antidepress (NotDetected) Ur Phencyclidine Scrn (NotDetected) Ur Amphetamines Screen (NotDetected) U Methamphetamines Scrn (NotDetected) U Benzodiazepines Scrn (NotDetected) Urine Cocaine Screen (NotDetected) U Marijuana (THC) Screen (NotDetected) 06/23/17 06/23/17 06/23/17 Range/Units 15:24 15:30 15:30 WBC (3.8-10.6) k/uL RBC (3.80-5.40) m/uL Hgb (11.4-16.0) gm/dL Hct (34.0-46.0) % MCV (80.0-100.0) fL MCH (25.0-35.0) pg MCHC (31.0-37.0) g/dL RDW (11.5-15.5) % Plt Count (150-450) k/uL Neutrophils % % Lymphocytes % % Monocytes % % Eosinophils % % Basophils % % Neutrophils # (1.3-7.7) k/uL Lymphocytes # (1.0-4.8) k/uL Monocytes # (0-1.0) k/uL Eosinophils # (0-0.7) k/uL Basophils # (0-0.2) k/uL Hypochromasia PT 58.4 H (9.0-12.0) sec INR 5.8 H* (<1.2) APTT 54.7 H (22.0-30.0) sec Sodium (137-145) mmol/L Potassium (3.5-5.1) mmol/L Chloride (98-107) mmol/L Carbon Dioxide (22-30) mmol/L Anion Gap mmol/L BUN (7-17) mg/dL Creatinine (0.52-1.04) mg/dL Est GFR (MDRD) Af Amer (>60 ml/min/1.73 sqM) Est GFR (MDRD) Non-Af (>60 ml/min/1.73 sqM) Glucose (74-99) mg/dL Calcium (8.4-10.2) mg/dL Magnesium (1.6-2.3) mg/dL Total Bilirubin (0.2-1.3) mg/dL AST (14-36) U/L ALT (9-52) U/L Alkaline Phosphatase (38-126) U/L Troponin I (0.000-0.034) ng/mL Total Protein (6.3-8.2) g/dL Albumin (3.5-5.0) g/dL Urine Color Dark Yellow Urine Appearance Turbid H (Clear) Urine pH 6.0 (5.0-8.0) Ur Specific [place] 1.021 (1.001-1.035) Urine Protein 2+ H (Negative) Urine Glucose (UA) Negative (Negative) Urine Ketones 1+ H (Negative) Urine Blood Moderate H (Negative) Urine Nitrite Negative (Negative) Urine Bilirubin 1+ H (Negative) Urine Urobilinogen 2.0 (<2.0) mg/dL Ur Leukocyte Esterase Large H (Negative) Urine RBC 14 H (0-5) /hpf Urine WBC >182 H (0-5) /hpf Ur Squamous Epith Cells 54 H (0-4) /hpf Amorphous Sediment Occasional H (None) /hpf Urine Bacteria Occasional H (None) /hpf Hyaline Casts 12 H (0-2) /lpf Urine Mucus Many H (None) /hpf Urine HCG, Qual Not Detected (Not Detectd) Urine Opiates Screen Not Detected (NotDetected) Ur Oxycodone Screen Not Detected (NotDetected) Urine Methadone Screen Not Detected (NotDetected) Ur Propoxyphene Screen Not Detected (NotDetected) Ur Barbiturates Screen Not Detected (NotDetected) U Tricyclic Antidepress Not Detected (NotDetected) Ur Phencyclidine Scrn Not Detected (NotDetected) Ur Amphetamines Screen Not Detected (NotDetected) U Methamphetamines Scrn Not Detected (NotDetected) U Benzodiazepines Scrn Not Detected (NotDetected) Urine Cocaine Screen Not Detected (NotDetected) U Marijuana (THC) Screen Detected H (NotDetected) Disposition Clinical Impression: Suicidal ideation, UTI (urinary tract infection), Marijuana use, Chest pain, Supratherapeutic INR Disposition: ADMITTED IP TO [facility] Referrals: None,Stated [Primary Care Provider] - 1-2 days Decision to Admit Reason: Admit from [facility]
--- NOTE | 2017-06-23 15:35 | XR ---
EXAMINATION TYPE: XR chest 1V portable DATE OF EXAM: 06/23/2017 COMPARISON: 03/23/2017 HISTORY: Pain TECHNIQUE: Single frontal view of the chest is obtained. FINDINGS: Scoliotic curvature of the spine noted with mild cardiomegaly. Postsurgical changes seen. Previous surgical change involving the right humerus, mediastinum and involving the lungs noted. Nodular densities overlying the mid lungs are stable likely related to nipple shadows. There are stable chronic blunting of the right costophrenic angle. No overt failure. IMPRESSION: 1. Stable chronic blunting of the right costophrenic angle may represent chronic tiny effusion or thi ckening. 2. Correlate for COPD.
[2017-06-23 15:41] LABS: Basophils % (A) 1 %; CHCM 31.6; Eosinophils % (A) 1 %; HCT 36.6 % (34.0-46.0); HDW 3.19; HGB 11.3 gm/dL (11.4-16.0); Hypochromasia Slight; Luc # (Auto) 0.11; Luc % (Auto) 2; Lymphocytes # (A) 0.8 k/uL (1.0-4.8); Lymphocytes % (A) 12 %; MCH 27.4 pg (25.0-35.0); MCHC 30.8 g/dL (31.0-37.0); MCV 88.9 fL (80.0-100.0); Mean Platelet Volume 6.4; Monocytes # (A) 0.3 k/uL (0-1.0); Monocytes % (A) 4 %; Neutrophils # (A) 5.6 k/uL (1.3-7.7); Neutrophils % (A) 81 %; RBC 4.12 m/uL (3.80-5.40); RDW 14.8 % (11.5-15.5); WBC 6.9 k/uL (3.8-10.6); WBC (Perox) 7.28
[2017-06-23 16:01] LABS: ALT 36 U/L (9-52); AST 42 U/L (14-36); Alkaline Phosphatase 106 U/L (38-126); Anion Gap 11 mmol/L; Blood Urea Nitrogen 6 mg/dL (7-17); Calcium 9.3 mg/dL (8.4-10.2); Carbon Dioxide 26 mmol/L (22-30); Chloride 100 mmol/L (98-107); Glucose 83 mg/dL (74-99); Magnesium 1.6 mg/dL (1.6-2.3); Non-African American GFR(MDRD) >60 (>60 ml/min/1.73 sqM); Potassium 4.2 mmol/L (3.5-5.1); Sodium 137 mmol/L (137-145); Total Bilirubin 0.6 mg/dL (0.2-1.3)
[2017-06-23 16:01] LABS: Amorphous Sediment,Urine Occasional /hpf; Appearance,Urine Turbid (Clear); Bacteria,Urine Occasional /hpf; Bilirubin,Urine 1+ (Negative); Glucose,Urine (UA) Negative (Negative); Ketones,Urine 1+ (Negative); Leukocyte Esterase,Urine Large (Negative); Mucus,Urine Many /hpf; Nitrite,Urine Negative (Negative); Particle Count 35393; Protein,Urine 2+ (Negative); RBC,Urine 14 /hpf (0-5); Specific Gravity,Urine 1.021 (1.001-1.035); Squamous Epithelial Cell,Urine 54 /hpf (0-4); UA Billing (MACRO vs. MICRO) MICRO; WBC,Urine >182 /hpf (0-5)
[2017-06-23 16:05] LABS: Partial Thromboplastin Time 54.7 sec (22.0-30.0); Prothrombin Time 58.4 sec (9.0-12.0)
[2017-06-23 16:11] LABS: INR 5.8 (<1.2)
[2017-06-23] MEDS ORDERED: NALOXONE 0.4 MG/ML 1 ML VIAL IV PRN (16:43)
--- NOTE | 2017-06-23 19:04 | P.HPIM ---
History of Present Illness H&P Date: 06/23/17 Chief Complaint: bilateral leg pain 32 year old female with extensive past medical history, including Marfan syndrome, mechanical heart valve, and recent stroke 1 month ago due to non- compliance with coumadin Patient presented with complaint of bilateral thigh pain, chronic in nature with acute exacerbation, she describes symptoms started 7 years ago off and on, this time felt dull achy pain in bilateral thighs, 7/10 in severity not responding to her usual pain meds that she takes at home which she could not name. no associated swelling or radiation, walking or being active exacerbates the pain which later goes away with resting, no sking changes, long standing varicose veins in her left leg. She was also experiencing suicidal ideation, without any active plan, she feels depressed, hopeless and worthless. She also describes left shoulder and back pain which is again chronic in nature , due to history of scoliosis. She denies using any IV drugs for the past 2 months, she admits to non compliance with her coumadin prior to having the stroke (with residual right sided weakness) a month ago, but since then she has been taking it, she has left the rehab unit around 2 weeks ago , and has not seen a doctor yet. She denies any GI bleeding, no fresh blood with bowel movement , no melena. She denies any chest pain, trouble breathing, headache, changes in her vision, or hearing, nausea or vomiting, dysuria, urgency or frequency in urination. denies any fever or chills. Review of Systems Pertinent positives as noted in HPI. All other systems were reviewed and are negative Past Medical History Past Medical History: CVA/TIA, Liver Disease, Osteoarthritis (OA), Pneumonia, Vascular Disorder Additional Past Medical History / Comment(s): marfan's syndrome, ArnoldChiari malformation, spontaneous pneumothorax x 21, scoliosis, back pain, bilateral leg pain, MVR, sinus infections, STATED HAS POOR CIRCULATION, viral meningitis, HEP C. "KYPHOSIS" History of Any Multi-Drug Resistant Organisms: MRSA Date of last positivie culture/infection: 05/05/2010 MDRO Source:: back per patient Past Surgical History: Cardiac Valve Replacement, Coronary Bypass/CABG, Joint Replacement Additional Past Surgical History / Comment(s): 10-27-16 I&D RT FOREARM ABCESS left upper lobe remove age 16, left hip fracture-ORIF, right foot corrective surgery, R shoulder surgery following injury, CABG x4 vessel, aortic grafts, aortic valve replaced as child (2 separate surgeries), tiffani lens removed. Past Anesthesia/Blood Transfusion Reactions: No Reported Reaction Past Psychological History: Anxiety Smoking Status: Current every day smoker Past Alcohol Use History: None Reported Past Drug Use History: Heroin, IV Drug Use, Marijuana, Opiates - Past Family History Father Additional Family Medical History / Comment(s): Father is alive in his 50s with history of AIDS. Mother Family Medical History: Diabetes Mellitus Additional Family Medical History / Comment(s): Mother at age 49 from liver cirrhosis secondary to alcohol abuse. Brother(s) Additional Family Medical History / Comment(s): Patient has one brother with no major medical problems. Patient does not have any sisters. Patient does not have any children. Medications and Allergies Home Medications and Allergies Comment(s): other than below , she could not remember the rest of her medications Home Medications Medication Instructions Recorded Confirmed Type Warfarin [Coumadin] 5 mg PO HS 03/29/17 06/23/17 History Multivitamins, Thera [Multivitamin 1 tab PO DAILY 06/23/17 06/23/17 History (formulary)] Allergies Allergy/AdvReac Type Severity Reaction Status Date / Time chlordiazepoxide HCl Allergy Unknown Verified 06/23/17 14:44 [From Librium] ketorolac tromethamine Allergy PANIC Verified 06/23/17 14:44 [From Toradol] ATTACK Penicillins Allergy Rash/Hives Verified 06/23/17 14:44 prochlorperazine edisylate Allergy PANIC Verified 06/23/17 14:44 [From Compazine] ATTACK prochlorperazine maleate Allergy PANIC Verified 06/23/17 14:44 [From Compazine] ATTACK Physical Exam Vitals: Vital Signs Temp Pulse Resp BP Pulse Ox 06/23/17 17:52 97.9 F 80 18 109/63 97 06/23/17 17:00 84 18 98/55 96 06/23/17 14:20 97.9 F 99 18 117/63 97 Intake and Output 06/23/17 06/23/17 06/23/17 06:59 14:59 22:59 Other: Weight 47.627 kg Patient Weight 06/24/17 06:59 Weight 47.627 kg Constitutional: No acute distress, conversant, cachetic Eyes: Anicteric sclerae, moist conjunctiva, no lid-lag Pupils equal round reactive to light ENMT: NC/AT Oropharynx clear, no erythema, exudates, high arched hard palate Neck: Supple, FROM, no masses, or JVD No carotid bruits No thyromegaly Lungs: Clear to auscultation Clear to percussion Normal respiratory effort, no accessory muscle use deformity of the back over the left thoracic back due to scoliosis. Cardiovascular: Heart regular in rate and rhythm, positive murmurs, and mechanical click No peripheral edema Abdominal: Soft Nontender, no guarding, rebound or rigidity Abdomen moving with respiration Normoactive bowel sounds No hepatomegaly, No splenomegaly No palpable mass No abdominal wall hernia noted slight discomfort with palpation over the left lower quadrant, no rebound tenderness Skin: Normal temperature, tone, texture, turgor No induration No subcutaneous nodules No rash, lesions No ulcers Extremities: No digital cyanosis No clubbing Pedal pulses intact and symmetrical Radial pulses intact and symmetrical No calf tenderness thin tall cylindrical fingers, typical of marfanoid features evidence of tortious dilated left thigh superficial veins muscle wasting over bilateral lower extremities Psychiatric: Alert and oriented to person, place and time Appropriate affect poor judgment Neuro Muscles Strength 4/5 in all 4 extremities Sensation to light touch grossly present throughout Cranial nerves II-XII grossly intact No focal sensory deficits Lymphatics: no palpable cervical or supraclavicular , or inguinal lymph nodes Results Results: reviewed CBC & Chem 7: 06/23/17 15:24 06/23/17 15:24 Labs: Abnormal Lab Results - Last 24 Hours (Table) 06/23/17 06/23/17 06/23/17 Range/Units 15:24 15:24 15:24 Hgb 11.3 L (11.4-16.0) gm/dL MCHC 30.8 L (31.0-37.0) g/dL Lymphocytes # 0.8 L (1.0-4.8) k/uL PT 58.4 H (9.0-12.0) sec INR 5.8 H* (<1.2) APTT 54.7 H (22.0-30.0) sec BUN 6 L (7-17) mg/dL AST 42 H (14-36) U/L Urine Appearance (Clear) Urine Protein (Negative) Urine Ketones (Negative) Urine Blood (Negative) Urine Bilirubin (Negative) Ur Leukocyte Esterase (Negative) Urine RBC (0-5) /hpf Urine WBC (0-5) /hpf Ur Squamous Epith Cells (0-4) /hpf Amorphous Sediment (None) /hpf Urine Bacteria (None) /hpf Hyaline Casts (0-2) /lpf Urine Mucus (None) /hpf U Marijuana (THC) Screen (NotDetected) 06/23/17 Range/Units 15:30 Hgb (11.4-16.0) gm/dL MCHC (31.0-37.0) g/dL Lymphocytes # (1.0-4.8) k/uL PT (9.0-12.0) sec INR (<1.2) APTT (22.0-30.0) sec BUN (7-17) mg/dL AST (14-36) U/L Urine Appearance Turbid H (Clear) Urine Protein 2+ H (Negative) Urine Ketones 1+ H (Negative) Urine Blood Moderate H (Negative) Urine Bilirubin 1+ H (Negative) Ur Leukocyte Esterase Large H (Negative) Urine RBC 14 H (0-5) /hpf Urine WBC >182 H (0-5) /hpf Ur Squamous Epith Cells 54 H (0-4) /hpf Amorphous Sediment Occasional H (None) /hpf Urine Bacteria Occasional H (None) /hpf Hyaline Casts 12 H (0-2) /lpf Urine Mucus Many H (None) /hpf U Marijuana (THC) Screen Detected H (NotDetected) Assessment and Plan (1) Supratherapeutic INR Current Visit: Yes Status: Acute Code(s): R79.1 - ABNORMAL COAGULATION PROFILE SNOMED Code(s): 184201121 (2) Suicidal ideation Current Visit: Yes Status: Acute Code(s): R45.851 - SUICIDAL IDEATIONS SNOMED Code(s): 3658025 (3) Mechanical heart valve present Current Visit: Yes Status: Chronic Code(s): Z95.2 - PRESENCE OF PROSTHETIC HEART VALVE SNOMED Code(s): 62539975508571 (4) History of stroke Current Visit: Yes Status: Chronic Code(s): Z86.73 - PRSNL HX OF TIA (TIA), AND CEREB INFRC W/O RESID DEFICITS SNOMED Code(s): 762476827 (5) Marijuana use Current Visit: Yes Status: Chronic Code(s): F12.90 - CANNABIS USE, UNSPECIFIED, UNCOMPLICATED SNOMED Code(s): 679629117 (6) Chronic back pain Current Visit: No Status: Acute Code(s): M54.9 - DORSALGIA, UNSPECIFIED SNOMED Code(s): 427657902 (7) Depression Current Visit: No Status: Acute Code(s): F32.9 - MAJOR DEPRESSIVE DISORDER, SINGLE EPISODE, UNSPECIFIED SNOMED Code(s): 18699494 (8) Marfan syndrome Current Visit: No Status: Acute Code(s): Q87.40 - MARFAN'S SYNDROME, UNSPECIFIED SNOMED Code(s): 20132180 Plan: supratheraputic INR, no evidence of bleeding, hemoglobin stable monitor H and H monitor for any evidence of GI bleeding hold coumadin , await until INR back to the theraputic range with goal of 2.5- 3.5 No evidece of UTI urinalysis is not a clean catch, contaminated sample patient denies any symptoms that are suggestive of UTI Suicidal ideation and depression bed side safety coordinator psych evaluation DVT PPx, patient on coumadin currently on hold due to supratheraputic INR Chronic pain , avoid narcotics , continue with NSAIDS Preformed a thorough record review from recent hospitalization Surrogate decision-maker: Fausto mejia her brother CODE STATUS:full DVT prophylaxis: on coumadin, now on hold due to supratheraputic INR Discussed with: Patient, ER, RN Anticipated discharge: 24-48 hours, once INR back to theraputic range Anticipated discharge place: pending psych evaluation
[2017-06-23] MEDS ORDERED: clonazePAM 1 MG TAB PO SCH (21:00)
[2017-06-23] MEDS ORDERED: ATORVASTATIN 40 MG TAB PO SCH (21:00)
[2017-06-24 04:20] VITALS: RESP 16
[2017-06-24 07:00] LABS: CH 27.2; CHCM 31.1; HDW 3.21; HGB 10.6 gm/dL (11.4-16.0); Hypochromasia Moderate; MCH 27.4 pg (25.0-35.0); MCHC 31.2 g/dL (31.0-37.0); Mean Platelet Volume 6.6; RBC 3.87 m/uL (3.80-5.40); RDW 14.7 % (11.5-15.5); WBC 5.7 k/uL (3.8-10.6)
[2017-06-24 07:06] LABS: INR 3.5 (<1.2); Prothrombin Time 34.5 sec (9.0-12.0)
[2017-06-24] MEDS ORDERED: ASPIRIN 81 MG PO SCH (09:00)
[2017-06-24 09:11] VITALS: BP 96/54; PULSE 84; TEMP 97.9
--- NOTE | 2017-06-24 09:39 | P.PN ---
Progress Note - Text Progress Note Date: 06/24/17 Hospitalist Interval note: Patient seen and examined at bedside. She has a slight headache. She complains of her chronic chest pain which is unchanged. Her leg pain is better today. She states that she had her mechanical heart valve done at age 10. She states that she had been following with the manager clinical at [facility], but has not seen anyone in 2 years. She has no other complaints currently. We discussed that the EPS nurse will be in to see her and then we' ll determine what happens next. She is in agreement with this plan. Vital signs reviewed and stable General: non toxic, no distress, appears at stated age, cachectic Derm: no rashes, no lesions Head: atraumatic, normocephalic, symmetric Eyes: EOMI, no lid lag, anicteric sclera ENT: no post nasal drip, no thrush Mouth: no lip lesion, mucus membranes moist Cardiovascular: S1S2 reg, with systolic ejection click, positive posterior tibial pulse bilateral, Lungs: CTA bilateral, no rhonchi, no rales , no accessory muscle use Abdominal: soft, nontender to palpation, no guarding, no appreciable organomegaly Ext: no gross muscle atrophy, no edema, no contractures Psych: Alert, oriented, flat affect Supratherapeutic INR Suicidal ideation History of stroke Marfan syndrome Patient is medically stable for discharge pending psychiatric evaluation. On discharge I do recommend INRs daily for the next 4 days, they then could likely change to weekly or twice weekly pending result. I also recommend Coumadin 4.5 mg tonight. Formal note or discharge summary to follow.
[2017-06-24] MEDS ORDERED: ACETAMINOPHEN TAB 500 MG TAB PO PRN (09:43)
[2017-06-24] MEDS ORDERED: IBUPROFEN 600 MG TAB PO PRN (09:43)
[2017-06-24 11:47] VITALS: BMI 14.8
--- NOTE | 2017-06-24 11:59 | P.DS ---
Providers Date of admission: 06/23/17 16:43 Expected date of discharge: 06/24/17 Attending physician: Bruna Roblero MD Consults: 06/23/17 16:43 Consult Physician Routine Consulting Provider: Jonathon Subramanian Consult Reason/Comments: Suicidal Do you want consulting provider notified?: Yes Primary care physician: Karina Chand MD - Discharge Diagnosis(es) (1) Suicidal ideation Current Visit: Yes Status: Acute (2) Supratherapeutic INR Current Visit: Yes Status: Acute (3) History of stroke Current Visit: Yes Status: Chronic (4) Marijuana use Current Visit: Yes Status: Chronic (5) Mechanical heart valve present Current Visit: Yes Status: Chronic (6) Chronic pain Current Visit: No Status: Acute (7) Marfan syndrome Current Visit: No Status: Acute Hospital Course: Patient is a 32-year-old female with an extensive past medical history mostly stemming from her Marfan syndrome. She had an aortic mechanical heart valve placement at age 10, she recently had a stroke secondary to noncompliance with Coumadin, and she also suffers from scoliosis and prior spontaneous pneumothorax. 2 presented to the hospital with complaints of dull achy pain in her bilateral thighs, not responding to usual pain meds, and suicidal ideation. In the ER she underwent an extensive evaluation. Her initial vital signs were within normal limits. Her urine drug screen was negative for opiates (prior heroin use). But her INR was slightly elevated at 5.8. She is admitted to the observation unit for further monitoring and care. Her Coumadin was held on the night of 06/23. On the morning of 1020 her thigh pain was controlled and back to her baseline. Her INR was within range for her at 3.5. She is determined medically stable. She was seen by the EPS nursing deemed appropriate psychiatry unit. She was subsequently discharged in stable condition to inpatient psych. Her Coumadin was adjusted slightly to 4.5 mg nightly. She will have an INR the next 4 days and then as needed after that. Patient is in agreement with plan. Patient seen and examined at bedside. Having her chronic chest pain, slight headache, leg pain is better. Still feeling hopeless. Vital signs reviewed and stable. General: non toxic, no distress, appears at stated age, cachectic Derm: no rashes, no lesions Head: atraumatic, normocephalic, symmetric Eyes: EOMI, no lid lag, anicteric sclera ENT: no post nasal drip, no thrush Mouth: no lip lesion, mucus membranes moist Cardiovascular: S1S2 reg, systolic ejection murmur, positive posterior tibial pulse bilateral, Lungs: CTA bilateral, no rhonchi, no rales , no accessory muscle use Abdominal: soft, nontender to palpation, no guarding, no appreciable organomegaly Ext: no gross muscle atrophy, no edema, no contractures Psych: Alert, oriented, flat affect A total of 25 minutes of time were spent preparing this complex discharge summary . Patient Condition at Discharge: Stable Plan - Discharge Summary Discharge Rx Participant: No New Discharge Prescriptions: New Acetaminophen Tab [Tylenol] 500 mg PO Q6HR PRN tab PRN Reason: Fever And/ Or Pain Aspirin 81 mg PO DAILY chew Atorvastatin [Lipitor] 40 mg PO HS tab clonazePAM [KlonoPIN] 1 mg PO HS tab Ibuprofen [Motrin] 600 mg PO QID PRN tab PRN Reason: Breakthrough Pain Warfarin [Coumadin] 1.5 mg PO DAILY #30 dose Warfarin [Coumadin] 3 mg PO DAILY #30 tab Continue Multivitamins, Thera [Multivitamin (formulary)] 1 tab PO DAILY Discontinued Warfarin [Coumadin] 5 mg PO HS Discharge Medication List Multivitamins, Thera [Multivitamin (formulary)] 1 tab PO DAILY 06/23/17 [History ] Acetaminophen Tab [Tylenol] 500 mg PO Q6HR PRN tab 06/24/17 [Rx] Aspirin 81 mg PO DAILY chew 06/24/17 [Rx] Atorvastatin [Lipitor] 40 mg PO HS tab 06/24/17 [Rx] Ibuprofen [Motrin] 600 mg PO QID PRN tab 06/24/17 [Rx] Warfarin [Coumadin] 1.5 mg PO DAILY #30 dose 06/24/17 [Rx] Warfarin [Coumadin] 3 mg PO DAILY #30 tab 06/24/17 [Rx] clonazePAM [KlonoPIN] 1 mg PO HS tab 06/24/17 [Rx] Follow up Appointment(s)/Referral(s): None,Stated [REFERRING] - 1-2 days Activity/Diet/Wound Care/Special Instructions: Heart healthy diet Activity as tolerated, avoid strenuous activity INR daily for 4 days then once weekly Coumadin 3mg and 1.5 mg tablets ordered for a total of 4.5mg to be given nightly. Will need referral to Dr. Alcantar on discharge from [facility]. Discharge Disposition: TRANSFER TO PSYCH HOSP/UNIT
[2017-06-24] MEDS ORDERED: MULTIVITAMINS, THERA 1 EACH TAB PO SCH (12:00)
== END 2017-06-24 12:49 ==
LOC: EC 14:12 → 3OBS 16:43
PROVIDERS: ADMIT Internal Medicine; ATTEND Internal Medicine
DX: R45.851 Suicidal ideations (principal); R79.1 Abnormal coagulation profile; Q87.40 Marfan syndrome, unspecified; F32.9 Major depressive disorder, single episode, unspecified; Z91.14 Patient's other noncompliance with medication regimen; Z79.01 Long term (current) use of anticoagulants; G89.29 Other chronic pain; R51 Headache; M79.652 Pain in left thigh; M79.651 Pain in right thigh; F12.90 Cannabis use, unspecified, uncomplicated; F41.9 Anxiety disorder, unspecified; F17.200 Nicotine dependence, unspecified, uncomplicated; Z95.2 Presence of prosthetic heart valve; Z95.1 Presence of aortocoronary bypass graft; R30.0 Dysuria; I83.92 Asymptomatic varicose veins of left lower extremity; M41.9 Scoliosis, unspecified; B19.20 Unspecified viral hepatitis C without hepatic coma; M19.90 Unspecified osteoarthritis, unspecified site; Z79.899 Other long term (current) drug therapy; Z88.0 Allergy status to penicillin; Z88.5 Allergy status to narcotic agent; Z88.8 Allergy status to other drugs, medicaments and biological substances; Z86.73 Personal history of transient ischemic attack (TIA), and cerebral infarction without residual deficits; Z86.14 Personal history of Methicillin resistant Staphylococcus aureus infection
CPT/HCPCS: 99285 ×2; 96374 ×2; 82075; 36415; 93005; 80053; 83735; 84484; 85025; 85027; 85610 ×2; 85730; 81001; 81025; 80306; 87086; 87077; 87186; 71010; G0378 ×2; J1885

== ENCOUNTER 2017-08-22 06:56 | Observation (INO) | payer OTHER ==
[2017-08-22] MEDS ORDERED: BISACODYL 5 MG TABLET.DR PO PRN (07:47)
[2017-08-22] MEDS ORDERED: ACETAMINOPHEN TAB 325 MG TAB PO PRN (07:47)
[2017-08-22] MEDS ORDERED: ONDANSETRON 4 MG/2 ML VIAL IVP PRN (07:47)
[2017-08-22] MEDS ORDERED: NALOXONE 0.4 MG/ML 1 ML VIAL IV PRN (07:47)
[2017-08-22] MEDS ORDERED: oxyCODONE-APAP 5-325MG 1 EACH TAB PO PRN (07:47)
[2017-08-22] MEDS ORDERED: HYDROMORPHONE HCL 4 MG PO PRN (07:50)
[2017-08-22 08:35] LABS: INR 2.3 (<1.2); Prothrombin Time 20.8 sec (9.0-12.0)
[2017-08-22 08:41] LABS: Basophils # (A) 0.1 k/uL (0-0.2); Basophils % (A) 1 %; Eosinophils # (A) 0.2 k/uL (0-0.7); Eosinophils % (A) 3 %; HCT 30.7 % (34.0-46.0); Hypochromasia Marked; Lymphocytes % (A) 13 %; MCH 25.7 pg (25.0-35.0); MCV 83.1 fL (80.0-100.0); Mean Platelet Volume 6.7; Monocytes # (A) 0.4 k/uL (0-1.0); Monocytes % (A) 5 %; Neutrophils # (A) 5.9 k/uL (1.3-7.7); Neutrophils % (A) 78 %; Platelet Count 289 k/uL (150-450); RDW 14.7 % (11.5-15.5); WBC 7.6 k/uL (3.8-10.6)
[2017-08-22 08:59] LABS: HGB 9.5 gm/dL (11.4-16.0)
[2017-08-22] MEDS ORDERED: PREGABALIN 75 MG CAP PO SCH (09:00)
[2017-08-22 09:02] LABS: ALT 21 U/L (9-52); AST 21 U/L (14-36); Albumin 2.8 g/dL (3.5-5.0); Alkaline Phosphatase 86 U/L (38-126); Anion Gap 6 mmol/L; Blood Urea Nitrogen 19 mg/dL (7-17); Calcium 8.4 mg/dL (8.4-10.2); Carbon Dioxide 28 mmol/L (22-30); Chloride 105 mmol/L (98-107); Glucose 87 mg/dL (74-99); Magnesium 1.9 mg/dL (1.6-2.3); Phosphorus 4.4 mg/dL (2.5-4.5); Potassium 4.5 mmol/L (3.5-5.1); Sodium 139 mmol/L (137-145); Total Bilirubin 0.3 mg/dL (0.2-1.3); Total Protein 6.6 g/dL (6.3-8.2)
[2017-08-22] MEDS ORDERED: IPRATROPIUM-ALBUTEROL 3 ML NEB INHALATION PRN (09:20)
[2017-08-22] MEDS: BACLOFEN 10 MG TAB PO SCH ×4 (09:27→20:49)
[2017-08-22] MEDS: ASPIRIN 81 MG PO SCH (09:28)
[2017-08-22] MEDS: PANTOPRAZOLE 40 MG TABLET PO SCH (09:28)
[2017-08-22] MEDS: PREGABALIN 100 MG CAP PO SCH ×3 (09:30→20:48)
[2017-08-22] MEDS ORDERED: FUROSEMIDE 10 MG/ML 2 ML VIAL IV ONE (10:27)
[2017-08-22] MEDS: LEVOFLOXACIN 500MG-D5W PMX 500 MG in DEXTROSE/WATER 1 100ML.BAG IVPB SCH (11:10)
[2017-08-22] MEDS: IPRATROPIUM-ALBUTEROL 3 ML NEB INHALATION SCH ×4 (11:11→22:58)
--- NOTE | 2017-08-22 13:00 | ECHOF ---
Referral Reason:elevated BNP/mechanical AV MEASUREMENTS -------- HEIGHT: 180.3 cm WEIGHT: 47.2 kg BP: 111/72 RVIDd: 3.2 cm (< 3.3) IVSd: 1.3 cm (0.6 - 1.1) LVIDd: 4.1 cm (3.9 - 5.3) LVPWd: 1.3 cm (0.6 - 1.1) IVSs: 1.7 cm LVIDs: 3.1 cm LVPWs: 1.6 cm LAESV Index (A-L): 58.88 ml/m Ao Diam: 2.5 cm (2.0 - 3.7) EPSS: 0.4 cm MV E Edward: 1.92 m/s MV DecT: 311 ms MV A Edward: 1.74 m/s MV E/A Ratio: 1.10 RAP: 5.00 mmHg RVSP: 43.47 mmHg MV EF SLOPE: 92.32 mm/s (70 - 150) MV EXCURSION: 1.64 cm (> 18.000) FINDINGS -------- Sinus rhythm. This was a technically adequate study. The left ventricular size is normal. There is moderate concentric left ventricular hypertrophy. O verall left ventricular systolic function is normal with, an EF between 55 - 60 %. The right ventricle is mildly enlarged. LA is severely dilated >40 ml/m2 The right atrium is markedly enlarged. Normally functioning mechanical prosthetic valve. The mitral valve leaflets are mild to moderately thickened. Moderate mitral annular calcification present. Moderate mitral regurgitation is present. [id number] mitral stenosis. MVA of 2.3c m (by PHT) Moderate tricuspid regurgitation present. There is mild pulmonary hypertension. The right ventric ular systolic pressure, as measured by Doppler, is 43.47mmHg. The pulmonic valve was not well visualized. There is calcification of the aortic root. Normal inferior vena cava with normal inspiratory collapse consistent with estimated right atrial pre ssure of 5 mmHg. The pericardium is normal. There is no pericardial effusion. CONCLUSIONS -------- 1. Sinus rhythm. 2. This was a technically adequate study. 3. The left ventricular size is normal. 4. There is moderate concentric left ventricular hypertrophy. 5. Overall left ventricular systolic function is normal with, an EF between 55 - 60 %. 6. The right ventricle is mildly enlarged. 7. LA is severely dilated >40 ml/m2 8. The right atrium is markedly enlarged. 9. Normally functioning mechanical prosthetic valve. 10. The mitral valve leaflets are mild to moderately thickened. 11. Moderate mitral annular calcification present. 12. Moderate mitral regurgitation is present. 13. Hxqu-pw-ibmgzkvp mitral stenosis. 14. MVA of 2.3cm (by PHT) 15. There is mild pulmonary hypertension. 16. The right ventricular systolic pressure, as measured by Doppler, is 43.47mmHg. 17. The pulmonic valve was not well visualized. 18. There is calcification of the aortic root. 19. Normal inferior vena cava with normal inspiratory collapse consistent with estimated right atrial pressure of 5 mmHg. 20. There is no pericardial effusion. TAX ECONOMIST: Dmitry Martinez RDCS
--- NOTE | 2017-08-22 13:06 | XR ---
EXAMINATION TYPE: XR ankle complete bilateral DATE OF EXAM: 08/22/2017 COMPARISON: NONE HISTORY: Pain TECHNIQUE: Frontal, lateral and oblique images of the right ankle are obtained. COMPARISON: None. FINDINGS: There is no acute fracture/dislocation evident. The joint spaces appear within normal martinez its. Mild soft tissue swelling. IMPRESSION: There is no acute fracture or dislocation seen. EXAMINATION TYPE: XR ankle complete bilateral DATE OF EXAM: 08/22/2017 COMPARISON: NONE HISTORY: Pain TECHNIQUE: 3 views of the left ankle are submitted for evaluation. FINDINGS: There is no evidence for fracture or dislocation. Ankle mortise is intact. Mild soft tissue swelling. IMPRESSION: 1. No evidence for acute fracture.
[2017-08-22] MEDS: oxyCODONE-APAP 10-325MG 1 EACH TAB PO PRN ×2 (16:07→21:55)
[2017-08-22] MEDS ORDERED: WARFARIN 7.5 MG TAB PO ONE (18:00)
--- NOTE | 2017-08-22 18:53 | P.HPIM ---
History of Present Illness H&P Date: 08/22/17 Chief Complaint: Transferred from mental health unit to medical floor for hypoxia The patient is a 32-year-old female with marfanoid features that was admitted to the mental health unit with suicidal ideation after taking approximately 8 pills of Klonopin she was admitted there is under treatment by psychiatry Dr. Saba Subramanian. The patient has a history of anxiety depression, Marfan's with mechanical heart valve replacement on chronic anticoagulation with Coumadin with noted noncompliance, apparently 2 days ago she began complaining of bilateral ankle swelling and pain. There is there is no complaints of cough for the patient was short of breath and was found to be hypoxic on room air 85%. She denied any chest pain or any other symptoms other than joint pain. She was transferred to the medical floor chest x-ray done showed increased perihilar markings made reflect developing her NT proBNP was 2330 and her INR was slightly subtherapeutic at 2.3 Past Medical History Past Medical History: Heart Failure, CVA/TIA, Neurologic Disorder, Osteoarthritis (OA), Pneumonia Additional Past Medical History / Comment(s): Stroke with residual right-sided weakness 2017, marfan's syndrome, ArnoldChiari malformation, spontaneous pneumothorax x 21, scoliosis and pectus excavatum secondary to Marfan's, chronic back pain, bilateral leg pain, sinus infections, STATED HAS POOR CIRCULATION, viral meningitis, HEP C. History of Any Multi-Drug Resistant Organisms: MRSA Date of last positivie culture/infection: 05/05/2010 MDRO Source:: back per patient Past Surgical History: Cardiac Valve Replacement, Coronary Bypass/CABG, Joint Replacement Additional Past Surgical History / Comment(s): 10-27-16 I&D RT FOREARM ABCESS, left upper lobectomy age 16, left hip fracture-ORIF, right foot corrective surgery, R shoulder surgery following injury, CABG x4 vessel, aortic root graft , aortic valve replaced as child (2 separate surgeries last 10 years old), tiffani lens removed. Past Anesthesia/Blood Transfusion Reactions: No Reported Reaction Smoking Status: Current every day smoker - Past Family History Father Additional Family Medical History / Comment(s): Father is with history of AIDS. Mother Family Medical History: Diabetes Mellitus Additional Family Medical History / Comment(s): Mother at age 49 from liver cirrhosis secondary to alcohol abuse. Brother(s) Additional Family Medical History / Comment(s): Patient has one brother with no major medical problems. Patient does not have any sisters. Patient does not have any children. Medications and Allergies Home Medications Medication Instructions Recorded Confirmed Type Aspirin 81 mg PO DAILY #14 chew 07/31/17 08/22/17 Rx Atorvastatin [Lipitor] 40 mg PO HS #14 tab 07/31/17 08/22/17 Rx Baclofen [Lioresal] 10 mg PO QID #60 tab 07/31/17 08/22/17 Rx HYDROmorphone HCL [Dilaudid] 4 mg PO TID PRN #45 tab 07/31/17 08/22/17 Rx Mirtazapine [Remeron] 15 mg PO HS #14 tab 07/31/17 08/22/17 Rx Pregabalin [Lyrica] 75 mg PO BID #28 cap 07/31/17 08/22/17 Rx Warfarin [Coumadin] 5 mg PO DAILY #30 tab 07/31/17 08/22/17 Rx clonazePAM [KlonoPIN] 1 mg PO HS #14 tab 07/31/17 08/22/17 Rx Allergies Allergy/AdvReac Type Severity Reaction Status Date / Time chlordiazepoxide HCl Allergy Unknown Verified 08/22/17 08:22 [From Librium] ketorolac tromethamine Allergy PANIC Verified 08/22/17 08:22 [From Toradol] ATTACK Penicillins Allergy Rash/Hives Verified 08/22/17 08:22 prochlorperazine edisylate Allergy PANIC Verified 08/22/17 08:22 [From Compazine] ATTACK prochlorperazine maleate Allergy PANIC Verified 08/22/17 08:22 [From Compazine] ATTACK Physical Exam Vitals: Vital Signs Temp Pulse Pulse Resp BP Pulse Ox 08/22/17 11:11 72 14 08/22/17 08:33 97.3 F L 88 16 111/72 95 Intake and Output 08/21/17 08/22/17 08/22/17 22:59 06:59 14:59 Other: Weight 53.5 kg Patient Weight 08/23/17 06:59 Weight 53.5 kg Constitutional: No acute distress, conversant, pleasant Eyes: Anicteric sclerae, moist conjunctiva, no lid-lag, PERRLA ENMT: NC/AT,Oropharynx clear, no erythema, exudates Neck:Supple, FROM, no masses, or JVD, No carotid bruits; No thyromegaly Lungs on supplemental oxygen coarse with some bibasilar crackles, poor respiratory effort, no accessory muscle use Cardiovascular: Heart regular in rate and rhythm, No murmurs, gallops, or rubs no peripheral edema Abdominal: Soft Nontender, nom distended, no guarding, no rebound or rigidity, Normoactive bowel sounds No hepatomegaly, No splenomegaly, No palpable mass No abdominal wall hernia noted Skin: Normal temperature, tone, texture, turgor, No induration No subcutaneous nodules, No rash, lesions, No ulcers Extremities:No digital cyanosis No clubbing, Pedal pulses intact and symmetrical Radial pulses intact and symmetrical Normal gait and station, No calf tenderness Psychiatric: Alert and oriented to person, place and time, Appropriate affect Intact judgement Neuro: Muscles Strength 5/5 in all 4 extremities, Sensation to light touch grossly present throughout, Cranial nerves II-XII grossly intact. No focal sensory deficits Results CBC & Chem 7: 08/22/17 08:20 08/22/17 08:20 Labs: Abnormal Lab Results - Last 24 Hours (Table) 08/22/17 08/22/17 08/22/17 Range/Units 08:20 08:20 08:20 RBC 3.70 L (3.80-5.40) m/uL Hgb 9.5 L D (11.4-16.0) gm/dL Hct 30.7 L (34.0-46.0) % PT 20.8 H (9.0-12.0) sec INR 2.3 H (<1.2) BUN 19 H (7-17) mg/dL Albumin 2.8 L (3.5-5.0) g/dL Thrombosis Risk Factor Assmnt - Choose All That Apply Any of the Below Risk Factors Present?: No Other Risk Factors: No Other congenital or acquired thrombophilia - If yes, enter type in comment: No Thrombosis Risk Factor Assessment Level: Very Low Risk Assessment and Plan (1) Acute respiratory failure with hypoxia Current Visit: Yes Status: Acute Code(s): J96.01 - ACUTE RESPIRATORY FAILURE WITH HYPOXIA SNOMED Code(s): 31673466 (2) Pneumonia Current Visit: No Status: Acute Code(s): J18.9 - PNEUMONIA, UNSPECIFIED ORGANISM SNOMED Code(s): 852101123 (3) Marfans syndrome Current Visit: No Status: Chronic Priority: Medium Code(s): Q87.40 - MARFAN'S SYNDROME, UNSPECIFIED SNOMED Code(s): 84378376 (4) Mechanical heart valve present Current Visit: No Status: Chronic Code(s): Z95.2 - PRESENCE OF PROSTHETIC HEART VALVE SNOMED Code(s): 90543266521931 Plan: The patient has acute respiratory failure with hypoxia now saturating well on 3 L supplemental oxygen via nasal cannula we'll initiate IV antibiotics with Levaquin to treat her underlying pneumonia we'll can initiate's supportive therapy with scheduled and when necessary bronchodilator breathing treatments. Given the patient's history of Marfan's and with the mechanical heart valve with elevated BNP will order a 2-D echocardiogram and give her dose of Lasix as she does seem slightly fluid overloaded on her lung exam, will also order bilateral ankle x-rays and continue her chronic pain medication
[2017-08-22] MEDS: clonazePAM 1 MG TAB PO SCH (20:49)
[2017-08-22] MEDS: MIRTAZAPINE 15 MG TAB PO SCH (20:49)
[2017-08-22] MEDS: ATORVASTATIN 40 MG TAB PO SCH (20:49)
[2017-08-22 21:15] LABS: Amorphous Sediment,Urine Rare /hpf; Appearance,Urine Cloudy (Clear); Bilirubin,Urine Negative (Negative); Blood,Urine Negative (Negative); Color,Urine Yellow; Glucose,Urine (UA) Negative (Negative); Ketones,Urine Negative (Negative); Leukocyte Esterase,Urine Large (Negative); Nitrite,Urine Negative (Negative); PH, Urine 6.5 (5.0-8.0); Protein,Urine 1+ (Negative); RBC,Urine 4 /hpf (0-5); Specific Gravity,Urine 1.024 (1.001-1.035); Squamous Epithelial Cell,Urine 36 /hpf (0-4); Urobilinogen,Urine <2.0 mg/dL (<2.0); WBC,Urine 104 /hpf (0-5)
[2017-08-23] MEDS: IPRATROPIUM-ALBUTEROL 3 ML NEB INHALATION SCH ×5 (04:01→20:31)
[2017-08-23] MEDS: oxyCODONE-APAP 10-325MG 1 EACH TAB PO PRN ×3 (04:57→17:50)
[2017-08-23 07:41] LABS: Basophils # (A) 0.1 k/uL (0-0.2); Basophils % (A) 1 %; Eosinophils # (A) 0.1 k/uL (0-0.7); Eosinophils % (A) 2 %; HCT 35.6 % (34.0-46.0); HGB 10.4 gm/dL (11.4-16.0); Hypochromasia Marked; Lymphocytes # (A) 0.9 k/uL (1.0-4.8); Lymphocytes % (A) 12 %; MCH 24.8 pg (25.0-35.0); MCHC 29.2 g/dL (31.0-37.0); MCV 84.8 fL (80.0-100.0); Mean Platelet Volume 6.3; Monocytes # (A) 0.4 k/uL (0-1.0); Monocytes % (A) 5 %; Neutrophils # (A) 5.8 k/uL (1.3-7.7); Neutrophils % (A) 78 %; Platelet Count 325 k/uL (150-450); RDW 14.8 % (11.5-15.5); WBC 7.4 k/uL (3.8-10.6)
[2017-08-23 07:44] LABS: INR 2.7 (<1.2); Prothrombin Time 24.2 sec (9.0-12.0)
[2017-08-23 08:03] LABS: Anion Gap 6 mmol/L; Blood Urea Nitrogen 16 mg/dL (7-17); Calcium 8.7 mg/dL (8.4-10.2); Carbon Dioxide 26 mmol/L (22-30); Chloride 105 mmol/L (98-107); Glucose 99 mg/dL (74-99); Magnesium 1.9 mg/dL (1.6-2.3); Potassium 4.3 mmol/L (3.5-5.1); Sodium 137 mmol/L (137-145)
[2017-08-23] MEDS: ASPIRIN 81 MG PO SCH (08:57)
[2017-08-23] MEDS: PREGABALIN 100 MG CAP PO SCH ×3 (08:57→21:34)
[2017-08-23] MEDS: PANTOPRAZOLE 40 MG TABLET PO SCH (08:57)
[2017-08-23] MEDS: BACLOFEN 10 MG TAB PO SCH ×4 (08:57→21:35)
[2017-08-23] MEDS: LEVOFLOXACIN 500MG-D5W PMX 500 MG in DEXTROSE/WATER 1 100ML.BAG IVPB SCH (08:58)
--- NOTE | 2017-08-23 10:53 | P.DS ---
Providers Date of admission: 08/22/17 08:08 Expected date of discharge: 08/23/17 Attending physician: Juan Marcum MD Primary care physician: Stated None - Discharge Diagnosis(es) (1) Nocturnal hypoxia Status: Acute (2) Pneumonia Status: Acute (3) Marfans syndrome Status: Chronic Priority: Medium (4) UTI (urinary tract infection) Status: Acute (5) Mechanical heart valve present Status: Chronic Hospital Course: The patient is a 32-year-old female with a past medical history of Marfan's syndrome, mechanical aortic valve placement on anticoagulation who is admitted from the mental health unit with acute respiratory failure with hypoxia affect was noted that she was satting 85% on room air while asleep, she was placed on supplemental oxygen and admitted to the medical floor workup with a chest x-ray was suggestive of a right middle lobe pneumonia she was started on scheduled and when necessary bronchodilator breathing treatments with IV antibiotics with Levaquin, she had previously been complaining of bilaterally lower extremity swelling and ankle pain. She had elevated BNP subsequent 2-D echocardiogram showed normal ejection fraction of 55-60%, clinically the patient was largely euvolemic and not in heart failure. It was thought that the patient's hypoxia was possibly secondary due to nocturnal hypoxia superimposed on a right middle lobe pneumonia versus chronic narcotic use. Recommended the patient be placed on 2 L of nasal cannula while asleep, hopefully she will be compliant with this on the mental health unit. Her x- rays of her ankle showed some soft tissue swelling but no acute fractures. Psychiatry was consulted to the patient for transfer back to the mental health unit already cleared her for discharge home. She was subsequently discharged home in stable condition with new prescriptions for Levaquin, Coumadin and oxygen. As a patient does not have a PCP secondary to repeated noncompliance and no shows at Dr. Chand's office, she was instead given information by case management for numbers to call to establish PCP. This discharge process took approximately 35 minutes Plan - Discharge Summary Discharge Rx Participant: No New Discharge Prescriptions: New Ipratropium-Albuterol Nebulize [Duoneb 0.5 mg-3 mg/3 ml Soln] 3 ml INHALATION RT-QID PRN ampul.neb PRN Reason: Shortness Of Breath Or Wheezing Warfarin [Coumadin] 5 mg PO ONCE@1800 tab Levofloxacin [Levaquin] 500 mg PO DAILY #4 tab oxyCODONE HCL/ACETAMINOPHEN [Percocet 10-325 mg] 1 tab PO Q6HR PRN #28 tab PRN Reason: pain Warfarin Sodium [Coumadin] 5 mg PO DAILY #30 tablet Continue clonazePAM [KlonoPIN] 1 mg PO HS #14 tab Pregabalin [Lyrica] 75 mg PO BID #28 cap Aspirin 81 mg PO DAILY #14 chew Atorvastatin [Lipitor] 40 mg PO HS #14 tab Baclofen [Lioresal] 10 mg PO QID #60 tab Mirtazapine [Remeron] 15 mg PO HS #14 tab Warfarin [Coumadin] 5 mg PO DAILY #30 tab Discontinued HYDROmorphone HCL [Dilaudid] 4 mg PO TID PRN #45 tab PRN Reason: Severe Breakthrough Pain Discharge Medication List Aspirin 81 mg PO DAILY #14 chew 07/31/17 [Rx] Atorvastatin [Lipitor] 40 mg PO HS #14 tab 07/31/17 [Rx] Baclofen [Lioresal] 10 mg PO QID #60 tab 07/31/17 [Rx] Mirtazapine [Remeron] 15 mg PO HS #14 tab 07/31/17 [Rx] Pregabalin [Lyrica] 75 mg PO BID #28 cap 07/31/17 [Rx] clonazePAM [KlonoPIN] 1 mg PO HS #14 tab 07/31/17 [Rx] Ipratropium-Albuterol Nebulize [Duoneb 0.5 mg-3 mg/3 ml Soln] 3 ml INHALATION RT -QID PRN ampul.neb 08/23/17 [Rx] Warfarin [Coumadin] 5 mg PO ONCE@1800 tab 08/23/17 [Rx] Levofloxacin [Levaquin] 500 mg PO DAILY #4 tab 08/25/17 [Rx] Warfarin Sodium [Coumadin] 5 mg PO DAILY #30 tablet 08/25/17 [Rx] Warfarin [Coumadin] 5 mg PO DAILY #30 tab 08/25/17 [Rx] oxyCODONE HCL/ACETAMINOPHEN [Percocet 10-325 mg] 1 tab PO Q6HR PRN #28 tab 08/25 [Rx] Discharge Disposition: HOME SELF-CARE
[2017-08-23] MEDS: INDOMETHACIN 25 MG CAP PO SCH ×3 (11:07→21:38)
[2017-08-23 11:17] VITALS: BMI 16.4
[2017-08-23] MEDS ORDERED: WARFARIN 5 MG TAB PO ONE (18:00)
[2017-08-23] MEDS: ATORVASTATIN 40 MG TAB PO SCH (21:35)
[2017-08-23] MEDS: MIRTAZAPINE 15 MG TAB PO SCH (21:35)
[2017-08-23] MEDS: clonazePAM 1 MG TAB PO SCH (21:35)
[2017-08-24] MEDS: IPRATROPIUM-ALBUTEROL 3 ML NEB INHALATION SCH ×6 (00:13→20:27)
[2017-08-24] MEDS: oxyCODONE-APAP 10-325MG 1 EACH TAB PO PRN ×4 (00:27→21:29)
[2017-08-24 08:08] VITALS: RESP 18
[2017-08-24] MEDS: PANTOPRAZOLE 40 MG TABLET PO SCH (08:24)
[2017-08-24] MEDS: ASPIRIN 81 MG PO SCH (08:24)
[2017-08-24] MEDS: BACLOFEN 10 MG TAB PO SCH ×4 (08:24→21:29)
[2017-08-24] MEDS: LEVOFLOXACIN 750 MG TAB PO SCH (08:24)
[2017-08-24] MEDS: INDOMETHACIN 25 MG CAP PO SCH ×3 (08:25→21:29)
[2017-08-24] MEDS: PREGABALIN 100 MG CAP PO SCH ×3 (08:28→21:29)
[2017-08-24 09:17] LABS: Prothrombin Time 27.2 sec (9.0-12.0)
--- NOTE | 2017-08-24 15:21 | P.PN ---
Subjective Progress Note Date: 08/23/17 Principal diagnosis: The patient is a 32-year-old female with a past medical history of Marfan's syndrome, mechanical aortic valve placement on anticoagulation who is admitted from the mental health unit with acute respiratory failure with hypoxia affect was noted that she was satting 85% on room air while asleep, she was placed on supplemental oxygen and admitted to the medical floor workup with a chest x-ray was suggestive of a right middle lobe pneumonia she was started on scheduled and when necessary bronchodilator breathing treatments with IV antibiotics with Levaquin, she had previously been complaining of bilaterally lower extremity swelling and ankle pain. She had elevated BNP subsequent 2-D echocardiogram showed normal ejection fraction of 55-60%, clinically the patient was largely euvolemic and not in heart failure. It was thought that the patient's hypoxia was possibly secondary due to nocturnal hypoxia superimposed on a right middle lobe pneumonia versus chronic narcotic use. Recommended the patient be placed on 2 L of nasal cannula while asleep, hopefully she will be compliant with this on the mental health unit. Her x- rays of her ankle showed some soft tissue swelling but no acute fractures, and started the patient on indomethacin for possible gout serum uric acid pending. She is safely transferred back to the mental health unit. Patient feeling much better today does still mention her bilateral ankle pain, does report some redness in the calcaneal area of her left foot. Patient reports being ambulatory and not a short of breath. She reports having a history of poor oxygen sats at night ever since having her stroke. Reports that she is supposed to have a sleep study, but has not followed up with her PCP. No acute events overnight Objective - Vital Signs Vital signs: Vital Signs Temp 97.5 F L 08/24/17 07:00 Pulse 86 08/24/17 07:38 Resp 18 08/24/17 07:00 BP 120/64 08/24/17 07:00 Pulse Ox 91 L 08/24/17 07:29 Intake & Output 08/23/17 08/24/17 08/24/17 18:59 06:59 18:59 Intake Total 540 Balance 540 Weight 53.5 kg Intake: Oral 540 Other: Voiding Method Toilet Toilet # Voids 3 1 - Exam Constitutional: No acute distress, conversant, pleasant, marfanoid features Eyes: Anicteric sclerae, moist conjunctiva, no lid-lag, PERRLA ENMT: NC/AT,Oropharynx clear, no erythema, exudates Neck:Supple, FROM, no masses, or JVD, No carotid bruits; No thyromegaly Lungs: Clear to auscultation, Clear to percussion, Normal respiratory effort, no accessory muscle use Cardiovascular: Heart regular in rate and rhythm, No murmurs, gallops, or rubs no peripheral edema Abdominal: Soft Nontender, nom distended, no guarding, no rebound or rigidity, Normoactive bowel sounds No hepatomegaly, No splenomegaly, No palpable mass No abdominal wall hernia noted Skin: Normal temperature, tone, texture, turgor, No induration No subcutaneous nodules, No rash, lesions, No ulcers Extremities:No digital cyanosis No clubbing, Pedal pulses intact and symmetrical Radial pulses intact and symmetrical Normal gait and station, No calf tenderness, tender around the ankles with mild erythema, noted contractures of the feet bilaterally and contractures of the ankle joint Psychiatric: Alert and oriented to person, place and time, Appropriate affect Intact judgement Neuro: Muscles Strength 5/5 in all 4 extremities, Sensation to light touch grossly present throughout, Cranial nerves II-XII grossly intact. No focal sensory deficits - Labs CBC & Chem 7: 08/23/17 07:17 08/23/17 07:17 Labs: Abnormal Lab Results - Last 24 Hours (Table) 08/24/17 Range/Units 08:56 PT 27.2 H (9.0-12.0) sec INR 3.0 H (<1.2) Microbiology - Last 24 Hours (Table) 08/22/17 21:00 Urine Culture - Final Urine,Clean Catch Assessment and Plan (1) Nocturnal hypoxia Narrative/Plan: * Patient reports this to be chronic with desaturations at night occurring since her last stroke, reports she supposed to have a polysomnogram but has yet to schedule through her PCP * We'll continue the patient on 2 L nasal cannula while asleep Current Visit: Yes Status: Acute Code(s): G47.34 - IDIO SLEEP RELATED NONOBSTRUCTIVE ALVEOLAR HYPOVENTILATION SNOMED Code(s): 029248007 (2) Pneumonia Narrative/Plan: * Continue with antibiotic therapy with Levaquin patient afebrile for leukocytosis * Continue with breathing treatments Current Visit: No Status: Acute Code(s): J18.9 - PNEUMONIA, UNSPECIFIED ORGANISM SNOMED Code(s): 256276628 (3) Marfans syndrome Current Visit: No Status: Chronic Priority: Medium Code(s): Q87.40 - MARFAN'S SYNDROME, UNSPECIFIED SNOMED Code(s): 20652341 (4) UTI (urinary tract infection) Narrative/Plan: * Possibly either urinary tract infection culture sent patient does have a history of Enterococcus faecalis UTI previously sensitive to Levaquin * We'll follow up cultures Current Visit: No Status: Acute Code(s): N39.0 - URINARY TRACT INFECTION, SITE NOT SPECIFIED SNOMED Code(s): 27214430 (5) Mechanical heart valve present Narrative/Plan: * Continue with chronic Coumadin therapy INR at goal at 2.7 Current Visit: No Status: Chronic Code(s): Z95.2 - PRESENCE OF PROSTHETIC HEART VALVE SNOMED Code(s): 75423146604041 (6) Ankle and foot deformity, acquired Narrative/Plan: * Bilateral ankle x-rays only showing soft tissue swelling no signs of any acute fracture * We'll check a ESR and uric acid patient started on indomethacin for possible gout Current Visit: Yes Status: Acute Code(s): M21.969 - UNSPECIFIED ACQUIRED DEFORMITY OF UNSPECIFIED LOWER LEG SNOMED Code(s): 35106749 Plan: Psychiatry Dr. Subramanian consulted to evaluate the patient for transfer back to mental health unit
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
[2017-08-24] MEDS ORDERED: WARFARIN 5 MG TAB PO ONE (18:00)
--- NOTE | 2017-08-24 18:17 | P.PN ---
Subjective Principal diagnosis: The patient is a 32-year-old female with a past medical history of Marfan's syndrome, mechanical aortic valve placement on anticoagulation who is admitted from the mental health unit with acute respiratory failure with hypoxia affect was noted that she was satting 85% on room air while asleep, she was placed on supplemental oxygen and admitted to the medical floor workup with a chest x-ray was suggestive of a right middle lobe pneumonia she was started on scheduled and when necessary bronchodilator breathing treatments with IV antibiotics with Levaquin, she had previously been complaining of bilaterally lower extremity swelling and ankle pain. She had elevated BNP subsequent 2-D echocardiogram showed normal ejection fraction of 55-60%, clinically the patient was largely euvolemic and not in heart failure. It was thought that the patient's hypoxia was possibly secondary due to nocturnal hypoxia superimposed on a right middle lobe pneumonia versus chronic narcotic use. Recommended the patient be placed on 2 L of nasal cannula while asleep, hopefully she will be compliant with this on the mental health unit. Her x- rays of her ankle showed some soft tissue swelling but no acute fractures, and started the patient on indomethacin for possible gout serum uric acid pending. She is safely transferred back to the mental health unit. Patient feeling much better today does still mention her bilateral ankle pain, does report some redness in the calcaneal area of her left foot. Patient reports being ambulatory and not a short of breath. She reports having a history of poor oxygen sats at night ever since having her stroke. Reports that she is supposed to have a sleep study, but has not followed up with her PCP. Patient was able to be transferred back to the mental health unit however Dr. Subramanian has deemed the patient is psychiatrically stable at this time, patient wanted to go home, advised her that she would have to stay so we can set up home oxygen for her due to her documented nocturnal hypoxia. Patient became emotional And tearful, but has agreed to stay Objective - Vital Signs Vital signs: Vital Signs Temp 97.4 F L 08/24/17 15:00 Pulse 94 08/24/17 15:00 Resp 18 08/24/17 15:00 BP 131/68 08/24/17 15:00 Pulse Ox 92 L 08/24/17 15:00 Intake & Output 08/23/17 08/24/17 08/24/17 18:59 06:59 18:59 Intake Total 540 Balance 540 Weight 53.5 kg Intake: Oral 540 Other: Voiding Method Toilet Toilet # Voids 3 1 1 - Exam Constitutional: No acute distress, conversant, pleasant, marfanoid features Eyes: Anicteric sclerae, moist conjunctiva, no lid-lag, PERRLA ENMT: NC/AT,Oropharynx clear, no erythema, exudates Neck:Supple, FROM, no masses, or JVD, No carotid bruits; No thyromegaly Lungs: Clear to auscultation, Clear to percussion, Normal respiratory effort, no accessory muscle use Cardiovascular: Heart regular in rate and rhythm, No murmurs, gallops, or rubs no peripheral edema Abdominal: Soft Nontender, nom distended, no guarding, no rebound or rigidity, Normoactive bowel sounds No hepatomegaly, No splenomegaly, No palpable mass No abdominal wall hernia noted Skin: Normal temperature, tone, texture, turgor, No induration No subcutaneous nodules, No rash, lesions, No ulcers Extremities:No digital cyanosis No clubbing, Pedal pulses intact and symmetrical Radial pulses intact and symmetrical Normal gait and station, No calf tenderness, tender around the ankles with mild erythema, noted contractures of the feet bilaterally and contractures of the ankle joint Psychiatric: Alert and oriented to person, place and time, emotional tearful denies SI/HI Neuro: Muscles Strength 5/5 in all 4 extremities, Sensation to light touch grossly present throughout, Cranial nerves II-XII grossly intact. No focal sensory deficits - Labs CBC & Chem 7: 08/23/17 07:17 08/23/17 07:17 Labs: Abnormal Lab Results - Last 24 Hours (Table) 08/24/17 Range/Units 08:56 PT 27.2 H (9.0-12.0) sec INR 3.0 H (<1.2) Microbiology - Last 24 Hours (Table) 08/22/17 21:00 Urine Culture - Final Urine,Clean Catch Assessment and Plan (1) Nocturnal hypoxia Narrative/Plan: * Patient reports this to be chronic with desaturations at night occurring since her last stroke, reports she supposed to have a polysomnogram but has yet to schedule through her PCP * We'll monitor nocturnal oximetry tonight on room air and see how she does, if she D stats will place patient on 2 L supplemental via nasal cannula Status: Acute Code(s): G47.34 - IDIO SLEEP RELATED NONOBSTRUCTIVE ALVEOLAR HYPOVENTILATION SNOMED Code(s): 827119568 (2) Pneumonia Narrative/Plan: * Continue with antibiotic therapy with Levaquin patient afebrile for leukocytosis * Continue with breathing treatments Status: Acute Code(s): J18.9 - PNEUMONIA, UNSPECIFIED ORGANISM SNOMED Code(s ): 898345243 (3) Marfans syndrome Status: Chronic Priority: Medium Code(s): Q87.40 - MARFAN'S SYNDROME, UNSPECIFIED SNOMED Code(s): 46686769 (4) Mechanical heart valve present Narrative/Plan: * Continue with chronic Coumadin therapy INR at goal at 2.7 Status: Acute Code(s): Z95.2 - PRESENCE OF PROSTHETIC HEART VALVE SNOMED Code(s): 34945496743219
[2017-08-24] MEDS: clonazePAM 1 MG TAB PO SCH (21:29)
[2017-08-24] MEDS: MIRTAZAPINE 15 MG TAB PO SCH (21:29)
[2017-08-24] MEDS: ATORVASTATIN 40 MG TAB PO SCH (21:29)
[2017-08-25] MEDS: IPRATROPIUM-ALBUTEROL 3 ML NEB INHALATION SCH ×3 (00:15→08:08)
[2017-08-25] MEDS: oxyCODONE-APAP 10-325MG 1 EACH TAB PO PRN (05:28)
[2017-08-25] MEDS: PANTOPRAZOLE 40 MG TABLET PO SCH (07:34)
[2017-08-25] MEDS: ASPIRIN 81 MG PO SCH (07:35)
[2017-08-25] MEDS: BACLOFEN 10 MG TAB PO SCH (07:36)
[2017-08-25] MEDS: LEVOFLOXACIN 750 MG TAB PO SCH (07:36)
[2017-08-25] MEDS: INDOMETHACIN 25 MG CAP PO SCH (07:36)
[2017-08-25] MEDS: PREGABALIN 100 MG CAP PO SCH (07:42)
[2017-08-25 08:03] VITALS: BP 151/94; PULSE 104; TEMP 98
[2017-08-25] MEDS ORDERED: ASPIRIN 81 MG ONE (09:00)
[2017-08-25] MEDS ORDERED: LEVOFLOXACIN 750 MG TAB ONE (09:00)
[2017-08-25] MEDS ORDERED: PREGABALIN 100 MG CAP ONE (09:00)
[2017-08-25] MEDS ORDERED: INDOMETHACIN 25 MG CAP ONE (09:00)
[2017-08-25] MEDS ORDERED: BACLOFEN 10 MG TAB ONE (09:00)
[2017-08-25] MEDS ORDERED: PANTOPRAZOLE 40 MG TABLET PO ONE (09:00)
[2017-08-25] MEDS ORDERED: oxyCODONE-APAP 10-325MG 1 EACH TAB ONE (09:00)
--- NOTE | 2017-09-05 14:31 | CDI ---
Dear Dr. East, Please confirm principal dx of Colits. If colitis was " ruled out" please document/add addendum to chart. Thank you, ANSELMO Alfonso
== END 2017-08-25 18:30 | disposition home or self-care (01) ==
LOC: 5MS5E 08:08 → INTOOBSV 08:08
PROVIDERS: ADMIT Internal Medicine; ATTEND Internal Medicine
DX: J96.01 Acute respiratory failure with hypoxia (principal); J18.9 Pneumonia, unspecified organism; Q87.40 Marfan syndrome, unspecified; N39.0 Urinary tract infection, site not specified; Z95.2 Presence of prosthetic heart valve; Z79.01 Long term (current) use of anticoagulants; M21.969 Unspecified acquired deformity of unspecified lower leg; Z91.19 Patient's noncompliance with other medical treatment and regimen; F17.200 Nicotine dependence, unspecified, uncomplicated; I50.9 Heart failure, unspecified; Z79.82 Long term (current) use of aspirin; Z79.899 Other long term (current) drug therapy; Z83.0 Family history of human immunodeficiency virus [HIV] disease; Z83.3 Family history of diabetes mellitus; Z95.1 Presence of aortocoronary bypass graft; Z86.19 Personal history of other infectious and parasitic diseases; Z86.14 Personal history of Methicillin resistant Staphylococcus aureus infection; F33.2 Major depressive disorder, recurrent severe without psychotic features; F41.9 Anxiety disorder, unspecified; M19.90 Unspecified osteoarthritis, unspecified site; I69.351 Hemiplegia and hemiparesis following cerebral infarction affecting right dominant side; Q07.00 Arnold-Chiari syndrome without spina bifida or hydrocephalus; M54.9 Dorsalgia, unspecified; G89.29 Other chronic pain; Z88.0 Allergy status to penicillin; Z88.8 Allergy status to other drugs, medicaments and biological substances; R79.89 Other specified abnormal findings of blood chemistry; M25.571 Pain in right ankle and joints of right foot; M25.572 Pain in left ankle and joints of left foot
CPT/HCPCS: 96365; 96366; 96375; 94640 ×4; 94760; 93306; 80053; 80048; 85652; 83735 ×2; 84100; 84550; 85025 ×2; 85610 ×3; 81001; 87086; 73610; G0378 ×4; G0379; J1940; J1956 ×2; 93005

== ENCOUNTER 2017-08-25 18:12 | Emergency (ER) | payer OTHER ==
[2017-08-25] MEDS ORDERED: KETOROLAC 30 MG/ML 1 ML VIAL ONE (18:30)
[2017-08-25] MEDS ORDERED: LORazepam 1 MG TAB ONE (18:30)
[2017-08-26 12:45] LABS: Appearance,Urine Cloudy (Clear); Bacteria,Urine Rare /hpf; Bilirubin,Urine Negative (Negative); Blood,Urine Negative (Negative); Color,Urine Yellow; Glucose,Urine (UA) Negative (Negative); Hyaline Casts,Urine 28 /lpf (0-2); Ketones,Urine Negative (Negative); Leukocyte Esterase,Urine Moderate (Negative); Mucus,Urine Rare /hpf; Nitrite,Urine Negative (Negative); PH, Urine 5.5 (5.0-8.0); Protein,Urine 1+ (Negative); RBC,Urine 20 /hpf (0-5); Specific Gravity,Urine 1.026 (1.001-1.035); Squamous Epithelial Cell,Urine 12 /hpf (0-4); Urobilinogen,Urine <2.0 mg/dL (<2.0); WBC,Urine 97 /hpf (0-5)
[2017-08-26 12:54] LABS: Amphetamine Screen,Urine Not Detected (NotDetected); Barbiturate Screen,Urine Not Detected (NotDetected); Benzodiazepines Screen,Urine Not Detected (NotDetected); Cocaine Screen,Urine Not Detected (NotDetected); Methadone Screen, Urine Not Detected (NotDetected); Opiate Screen,Urine Detected (NotDetected); Oxycodone Screen, Urine Detected (NotDetected); Phencyclidine Screen,Urine Not Detected (NotDetected); Tricyclic Antidepressant,Urine Not Detected (NotDetected); Urn Cannabinoid Scrn Not Detected (NotDetected)
[2017-08-26] MEDS ORDERED: LORazepam 1 MG TAB PO STA (14:22)
[2017-08-26 16:14] LABS: Basophils # (A) 0.1 k/uL (0-0.2); Basophils % (A) 0 %; Eosinophils % (A) 0 %; HCT 35.8 % (34.0-46.0); HGB 11.1 gm/dL (11.4-16.0); Hypochromasia Moderate; Lymphocytes # (A) 0.7 k/uL (1.0-4.8); Lymphocytes % (A) 5 %; MCH 25.5 pg (25.0-35.0); MCHC 30.8 g/dL (31.0-37.0); MCV 82.8 fL (80.0-100.0); Mean Platelet Volume 6.1; Monocytes # (A) 0.3 k/uL (0-1.0); Monocytes % (A) 2 %; Neutrophils # (A) 12.4 k/uL (1.3-7.7); Neutrophils % (A) 92 %; Platelet Count 323 k/uL (150-450); Poikilocytosis Slight; RBC 4.33 m/uL (3.80-5.40); RDW 15.1 % (11.5-15.5); WBC 13.5 k/uL (3.8-10.6)
[2017-08-26 16:20] LABS: ALT 33 U/L (9-52); AST 31 U/L (14-36); Albumin 3.4 g/dL (3.5-5.0); Alkaline Phosphatase 109 U/L (38-126); Anion Gap 11 mmol/L; Blood Urea Nitrogen 22 mg/dL (7-17); Calcium 8.9 mg/dL (8.4-10.2); Carbon Dioxide 25 mmol/L (22-30); Chloride 106 mmol/L (98-107); Glucose 132 mg/dL (74-99); Potassium 4.4 mmol/L (3.5-5.1); Sodium 142 mmol/L (137-145); Total Bilirubin 0.4 mg/dL (0.2-1.3); Total Protein 7.4 g/dL (6.3-8.2)
--- NOTE | 2017-08-29 00:32 | CDI ---
Documentation Clarification OP Dear Gregory ESCOBAR, DO Please do addendum of ED physician document. Thank you, Loren Pantoja Nail Mill Worker If you have any question, Please contact coding compliance specialist at [phone] [facility]
--- NOTE | 2017-08-29 23:35 | CDI ---
Documentation Clarification OP Dear Gregory ESCOBAR, DO Please do addendum of ED physician document. Thank you, Loren Pantoja Apprentice Painter Ne[employer] If you have any question, Please contact government affairs manager at [phone] [facility]
== END 2017-08-26 18:50 ==
LOC: EC 18:12
DX: F32.9 Major depressive disorder, single episode, unspecified (principal); R45.851 Suicidal ideations; F17.200 Nicotine dependence, unspecified, uncomplicated; Z88.0 Allergy status to penicillin; Z88.8 Allergy status to other drugs, medicaments and biological substances
CPT/HCPCS: 82075; 36415; 93005; 80053; 85025; 81001; 80306; 99285; J1885

== ENCOUNTER 2017-09-18 14:36 | Emergency (ER) | payer OTHER ==
[2017-09-18 15:23] VITALS: BP 140/80; PULSE 92; RESP 18; TEMP 98.2
[2017-09-18] MEDS ORDERED: KETOROLAC 60 MG/2 ML VIAL IM STA (15:34)
[2017-09-18] MEDS ORDERED: ORPHENADRINE 30 MG/ML 2 ML VIAL IM STA (15:34)
--- NOTE | 2017-09-18 15:40 | ED ---
General Adult HPI - General Chief complaint: Back Pain/Injury Stated complaint: severe pain all over Time Seen by Provider: 09/18/17 15:23 Source: patient, RN notes reviewed Mode of arrival: ambulatory Limitations: no limitations - History of Present Illness Initial comments: 32-year-old female presents for a flareup of her chronic pain. Patient chronically suffers from back pain that radiates on the legs and she states just flared up. She states she has been taking her Lyrica at home. She is currently trying to find a chronic pain specialist. She states that it just was not helping her pain so she is here. Patient has a loss by bladder functioning saddle anesthesia with this. Patient states to flareup of her normal typical chronic pain. Patient states she is not currently having any other symptoms at this time. Patient denies any recent fever, chills, shortness of breath, chest pain, abdominal pain, nausea vomiting, numbness or tingling, dysuria or hematuria, constipation or diarrhea, headaches or visual changes, or any other current symptoms. - Related Data Previous Rx's Medication Instructions Recorded Aspirin 81 mg PO DAILY #14 chew 07/31/17 Atorvastatin [Lipitor] 40 mg PO HS #14 tab 07/31/17 Baclofen [Lioresal] 10 mg PO QID #60 tab 07/31/17 Mirtazapine [Remeron] 15 mg PO HS #14 tab 07/31/17 Pregabalin [Lyrica] 75 mg PO BID #28 cap 07/31/17 clonazePAM [KlonoPIN] 1 mg PO HS #14 tab 07/31/17 Ipratropium-Albuterol Nebulize 3 ml INHALATION RT-QID PRN 08/23/17 [Duoneb 0.5 mg-3 mg/3 ml Soln] ampul.neb Warfarin [Coumadin] 5 mg PO ONCE@1800 tab 08/23/17 Levofloxacin [Levaquin] 500 mg PO DAILY #4 tab 08/25/17 Warfarin Sodium [Coumadin] 5 mg PO DAILY #30 tablet 08/25/17 Warfarin [Coumadin] 5 mg PO DAILY #30 tab 08/25/17 oxyCODONE HCL/ACETAMINOPHEN 1 tab PO Q6HR PRN #28 tab 08/25/17 [Percocet 10-325 mg] Allergies Allergy/AdvReac Type Severity Reaction Status Date / Time chlordiazepoxide HCl Allergy Unknown Verified 08/22/17 08:22 [From Librium] ketorolac tromethamine Allergy PANIC Verified 08/22/17 08:22 [From Toradol] ATTACK Penicillins Allergy Rash/Hives Verified 08/22/17 08:22 prochlorperazine edisylate Allergy PANIC Verified 08/22/17 08:22 [From Compazine] ATTACK prochlorperazine maleate Allergy PANIC Verified 08/22/17 08:22 [From Compazine] ATTACK Review of Systems ROS Statement: Those systems with pertinent positive or pertinent negative responses have been documented in the HPI. ROS Other: All systems not noted in ROS Statement are negative. Past Medical History Past Medical History: Heart Failure, CVA/TIA, Neurologic Disorder, Osteoarthritis (OA), Pneumonia Additional Past Medical History / Comment(s): Stroke with residual right-sided weakness 2016, marfan's syndrome, ArnoldChiari malformation, spontaneous pneumothorax x 21, scoliosis and pectus excavatum secondary to Marfan's, chronic back pain, bilateral leg pain, sinus infections, STATED HAS POOR CIRCULATION, viral meningitis, HEP C. History of Any Multi-Drug Resistant Organisms: MRSA Date of last positivie culture/infection: 05/05/2010 MDRO Source:: back per patient Past Surgical History: Cardiac Valve Replacement, Coronary Bypass/CABG, Joint Replacement Additional Past Surgical History / Comment(s): 10-27-16 I&D RT FOREARM ABCESS, left upper lobectomy age 16, left hip fracture-ORIF, right foot corrective surgery, R shoulder surgery following injury, CABG x4 vessel, aortic root graft , aortic valve replaced as child (2 separate surgeries last 10 years old), tiffani lens removed. Past Anesthesia/Blood Transfusion Reactions: No Reported Reaction Past Psychological History: Anxiety Smoking Status: Current every day smoker Past Alcohol Use History: None Reported Past Drug Use History: None Reported - Past Family History Father Additional Family Medical History / Comment(s): Father is with history of AIDS. Mother Family Medical History: Diabetes Mellitus Additional Family Medical History / Comment(s): Mother at age 49 from liver cirrhosis secondary to alcohol abuse. Brother(s) Additional Family Medical History / Comment(s): Patient has one brother with no major medical problems. Patient does not have any sisters. Patient does not have any children. General Exam Limitations: no limitations General appearance: alert, in no apparent distress Head exam: Present: atraumatic, normocephalic, normal inspection Respiratory exam: Present: normal lung sounds bilaterally. Absent: respiratory distress, wheezes, rales, rhonchi, stridor Cardiovascular Exam: Present: regular rate, normal rhythm, normal heart sounds. Absent: systolic murmur, diastolic murmur, rubs, gallop, clicks Back exam: Absent: normal inspection (Patient does have chronic malalignment in the vertebral spine), tenderness, muscle spasm, paraspinal tenderness Neurological exam: Present: alert, oriented X3 Psychiatric exam: Present: normal affect, normal mood Skin exam: Present: warm, dry, intact, normal color. Absent: rash Course Vital Signs 09/18/17 15:20 Temperature 98.2 F Pulse Rate 92 Respiratory 18 Rate Blood Pressure 140/80 O2 Sat by Pulse 95 Oximetry Medical Decision Making - Medical Decision Making 32-year-old female presents for flareup of her chronic pain. This time we did give her injections up with her pain. We discussed continuing her home medication. We discussed the importance of following up with a pain specialist we discussed return parameters all questions. Patient stated that she understood and she is in agreement this plan. All questions have been answered. She will be discharged home. Disposition Clinical Impression: Chronic back pain Disposition: HOME SELF-CARE Condition: Stable Instructions: Chronic Back Pain (ED) Additional Instructions: Please use medication as discussed. Please follow up with family doctor if symptoms have not improved over the next two days. Please return to the emergency room if your symptoms increase or worsen or for any other concerns. Referrals: Karina Chand MD [Primary Care Provider] - 1-2 days Time of Disposition: 15:40
== END 2017-09-18 16:08 | disposition home or self-care (01) ==
LOC: EC 14:36
DX: G89.29 Other chronic pain (principal); M54.9 Dorsalgia, unspecified; F17.200 Nicotine dependence, unspecified, uncomplicated; Z86.14 Personal history of Methicillin resistant Staphylococcus aureus infection; Z86.19 Personal history of other infectious and parasitic diseases; Z88.6 Allergy status to analgesic agent; Z88.8 Allergy status to other drugs, medicaments and biological substances; Z88.0 Allergy status to penicillin
CPT/HCPCS: 99283; 96372 ×2; J2360; J1885

== ENCOUNTER 2017-09-22 11:07 | Emergency (ER) | payer OTHER ==
--- NOTE | 2017-09-22 11:38 | ED ---
General Adult HPI - General Chief complaint: Extremity Problem,Nontraumatic Stated complaint: LEG, BACK AND HEAD PAIN Time Seen by Provider: 09/22/17 11:19 Source: patient, RN notes reviewed, old records reviewed Mode of arrival: ambulatory Limitations: no limitations - History of Present Illness Initial comments: Patient is a 32-year-old female who presents emergency room today with chief complaint of bilateral lower leg pain. She states she feels that it radiates up. States worse on the right than the left. She does admit that she is on Coumadin due to history of blood clots and PE. Patient denies any shortness of breath. Patient does admit to chronic pain as well in her back. Patient denies any other complaints or symptoms at this time. - Related Data Home Medications Medication Instructions Recorded Confirmed Warfarin [Coumadin] 5 mg PO DAILY 09/18/17 09/22/17 diphenhydrAMINE HCL [Benadryl] 50 mg PO DAILY PRN 09/22/17 09/22/17 Previous Rx's Medication Instructions Recorded Aspirin 81 mg PO DAILY #14 chew 07/31/17 Baclofen [Lioresal] 10 mg PO QID #60 tab 07/31/17 Mirtazapine [Remeron] 15 mg PO HS #14 tab 07/31/17 Pregabalin [Lyrica] 75 mg PO BID #28 cap 07/31/17 clonazePAM [KlonoPIN] 1 mg PO HS #14 tab 07/31/17 Allergies Allergy/AdvReac Type Severity Reaction Status Date / Time chlordiazepoxide HCl Allergy Unknown Verified 09/22/17 11:20 [From Librium] Penicillins Allergy Rash/Hives Verified 09/22/17 11:20 prochlorperazine edisylate Allergy PANIC Verified 09/22/17 11:20 [From Compazine] ATTACK prochlorperazine maleate Allergy PANIC Verified 09/22/17 11:20 [From Compazine] ATTACK Review of Systems ROS Statement: Those systems with pertinent positive or pertinent negative responses have been documented in the HPI. ROS Other: All systems not noted in ROS Statement are negative. Past Medical History Past Medical History: Heart Failure, CVA/TIA, Neurologic Disorder, Osteoarthritis (OA), Pneumonia Additional Past Medical History / Comment(s): Stroke with residual right-sided weakness 2016, marfan's syndrome, ArnoldChiari malformation, spontaneous pneumothorax x 21, scoliosis and pectus excavatum secondary to Marfan's, chronic back pain, bilateral leg pain, sinus infections, STATED HAS POOR CIRCULATION, viral meningitis, HEP C. History of Any Multi-Drug Resistant Organisms: MRSA Date of last positivie culture/infection: 05/05/2010 MDRO Source:: back per patient Past Surgical History: Cardiac Valve Replacement, Coronary Bypass/CABG, Joint Replacement Additional Past Surgical History / Comment(s): 10-27-16 I&D RT FOREARM ABCESS, left upper lobectomy age 16, left hip fracture-ORIF, right foot corrective surgery, R shoulder surgery following injury, CABG x4 vessel, aortic root graft , aortic valve replaced as child (2 separate surgeries last 10 years old), tiffani lens removed. Past Anesthesia/Blood Transfusion Reactions: No Reported Reaction Past Psychological History: Anxiety Smoking Status: Current every day smoker Past Alcohol Use History: None Reported Past Drug Use History: None Reported - Past Family History Father Additional Family Medical History / Comment(s): Father is with history of AIDS. Mother Family Medical History: Diabetes Mellitus Additional Family Medical History / Comment(s): Mother at age 49 from liver cirrhosis secondary to alcohol abuse. Brother(s) Additional Family Medical History / Comment(s): Patient has one brother with no major medical problems. Patient does not have any sisters. Patient does not have any children. General Exam - General Exam Comments Initial Comments: General: The patient is awake and alert, in no distress, and does not appear acutely ill. Eye: Pupils are equal, round and reactive to light, extra-ocular movements are intact. No nystagmus. There is normal conjunctiva bilaterally. No signs of icterus. Ears, nose, mouth and throat: There are moist mucous membranes and no oral lesions. Neck: The neck is supple, there is no tenderness or JVD. Cardiovascular: There is a regular rate and rhythm. No murmur, rub or gallop is appreciated. Respiratory: Lungs are clear to auscultation, respirations are non-labored, breath sounds are equal. No wheezes, stridor, rales, or rhonchi. Musculoskeletal: Normal ROM. Patient does have tenderness with dorsiflexion of both left and right legs. No Swelling or pitting. Strength 5/5. Sensation intact. Pulses equal bilaterally 2+. Neurological: A&O x 3. CN II-XII intact, There are no obvious motor or sensory deficits. Coordination appears grossly intact. Speech is normal. Skin: Skin is warm and dry and no rashes or lesions are noted. Psychiatric: Cooperative, appropriate mood & affect, normal judgment. Limitations: no limitations Course Vital Signs 09/22/17 11:11 Temperature 97.1 F L Pulse Rate 90 Respiratory 20 Rate Blood Pressure 132/69 O2 Sat by Pulse 99 Oximetry Medical Decision Making - Medical Decision Making Case discussed in detail with attending physician Dr. Higginbotham. Patient reexamined at this time shows no signs of distress resting comfortably. Patient currently sleeping. patient still experiencing pain to the lower leg she states. Patient was offered Toradol shot she's refused. Patient also negative for any evidence of a DVT. Patient's INR is 2.0. Patient will be discharged home to follow-up family doctor - Lab Data Lab Results 09/22/17 Range/Units 11:52 PT 18.4 H (9.0-12.0) sec INR 2.0 H (<1.2) Disposition Clinical Impression: Leg pain Disposition: HOME SELF-CARE Condition: Good Instructions: Leg Pain (ED) Additional Instructions: Please follow-up with family doctor in the next 2 days of symptoms have not improved. Please return to emergency room if the symptoms increase or worsen or for any other concerns. Referrals: Karina Chand MD [Primary Care Provider] - 1-2 days Time of Disposition: 13:34
[2017-09-22 13:17] LABS: Prothrombin Time 18.4 sec (9.0-12.0)
--- NOTE | 2017-09-22 13:22 | US ---
EXAMINATION TYPE: US venous doppler duplex LE DATE OF EXAM: 09/22/2017 12:49 PM COMPARISON: US 2017 CLINICAL HISTORY: Pain. Bilateral leg pain SIDE PERFORMED: Bilateral TECHNIQUE: The lower extremity deep venous system is examined utilizing real time linear array sonog blanca with graded compression, doppler sonography and color-flow sonography. VESSELS IMAGED: External Iliac Vein (EIV) Common Femoral Vein Deep Femoral Vein Greater Saphenous Vein * Femoral Vein Popliteal Vein Small Saphenous Vein * Proximal Calf Veins (* superficial vessels) Right Leg: Appears negative for DVT Left Leg: Appears negative for DVT IMPRESSION: Grayscale, color doppler, spectral doppler imaging performed of the deep veins of the lo wer extremities. There is normal flow, compressibility, vascular waveforms. No evident deep venous thrombosis at or above the knees
[2017-09-22 13:37] VITALS: BP 109/56; PULSE 76; RESP 18
[2017-09-22 13:51] VITALS: TEMP 97.3
== END 2017-09-22 13:55 | disposition home or self-care (01) ==
LOC: EC 11:07
DX: M79.661 Pain in right lower leg (principal); M79.662 Pain in left lower leg; M54.9 Dorsalgia, unspecified; G89.29 Other chronic pain; F17.200 Nicotine dependence, unspecified, uncomplicated; Z86.73 Personal history of transient ischemic attack (TIA), and cerebral infarction without residual deficits; Z86.14 Personal history of Methicillin resistant Staphylococcus aureus infection; Z86.718 Personal history of other venous thrombosis and embolism; Z86.711 Personal history of pulmonary embolism; Z79.01 Long term (current) use of anticoagulants; Z88.0 Allergy status to penicillin; Z88.8 Allergy status to other drugs, medicaments and biological substances; M41.9 Scoliosis, unspecified; Z53.29 Procedure and treatment not carried out because of patient's decision for other reasons
CPT/HCPCS: 36415; 85610; 93970; 99284

== ENCOUNTER 2017-09-24 11:40 | Emergency (ER) | payer OTHER ==
--- NOTE | 2017-09-24 12:16 | ED ---
General Adult HPI - General Chief complaint: Extremity Problem,Nontraumatic Stated complaint: Leg pain/headache Time Seen by Provider: 09/24/17 11:55 Source: patient, RN notes reviewed, old records reviewed Mode of arrival: wheelchair Limitations: no limitations - History of Present Illness Initial comments: 32-year-old female presents for evaluation of back pain. Pain has been present for years, she normally takes Percocet for this pain. No change in the intensity or character of the pain. She does state it radiates down her legs. She has severe scoliosis and kyphosis. She has history of Marfan's. Patient states she does have a primary care physician however she is unable to see this physician because she does not currently have an ID. She is working on obtaining an ID. She's been out of her Percocet for the past several weeks. She was seen in the emergency department with the same complaint 2 days ago. There has been no new trauma, no change in her chronic pain. Patient does complain of dysuria. No fever or chills. No abdominal pain nausea or vomiting. - Related Data Home Medications Medication Instructions Recorded Confirmed Warfarin [Coumadin] 5 mg PO DAILY 09/18/17 09/24/17 diphenhydrAMINE HCL [Benadryl] 50 mg PO DAILY PRN 09/22/17 09/24/17 Previous Rx's Medication Instructions Recorded Aspirin 81 mg PO DAILY #14 chew 07/31/17 Baclofen [Lioresal] 10 mg PO QID #60 tab 07/31/17 Mirtazapine [Remeron] 15 mg PO HS #14 tab 07/31/17 Pregabalin [Lyrica] 75 mg PO BID #28 cap 07/31/17 clonazePAM [KlonoPIN] 1 mg PO HS #14 tab 07/31/17 Cephalexin [Keflex] 500 mg PO Q12HR #14 cap 09/24/17 oxyCODONE HCL/ACETAMINOPHEN 1 tab PO Q6HR PRN #12 tab 09/24/17 [Percocet 5-325 mg] Allergies Allergy/AdvReac Type Severity Reaction Status Date / Time chlordiazepoxide HCl Allergy Unknown Verified 09/24/17 11:56 [From Librium] Penicillins Allergy Rash/Hives Verified 09/24/17 11:56 prochlorperazine edisylate Allergy PANIC Verified 09/24/17 11:56 [From Compazine] ATTACK prochlorperazine maleate Allergy PANIC Verified 09/24/17 11:56 [From Compazine] ATTACK Review of Systems ROS Statement: Those systems with pertinent positive or pertinent negative responses have been documented in the HPI. ROS Other: All systems not noted in ROS Statement are negative. Past Medical History Past Medical History: Heart Failure, CVA/TIA, Neurologic Disorder, Osteoarthritis (OA), Pneumonia Additional Past Medical History / Comment(s): Stroke with residual right-sided weakness 2017, marfan's syndrome, ArnoldChiari malformation, spontaneous pneumothorax x 21, scoliosis and pectus excavatum secondary to Marfan's, chronic back pain, bilateral leg pain, sinus infections, STATED HAS POOR CIRCULATION, viral meningitis, HEP C. History of Any Multi-Drug Resistant Organisms: MRSA Date of last positivie culture/infection: 05/05/2010 MDRO Source:: back per patient Past Surgical History: Cardiac Valve Replacement, Coronary Bypass/CABG, Joint Replacement Additional Past Surgical History / Comment(s): 10-27-16 I&D RT FOREARM ABCESS, left upper lobectomy age 16, left hip fracture-ORIF, right foot corrective surgery, R shoulder surgery following injury, CABG x4 vessel, aortic root graft , aortic valve replaced as child (2 separate surgeries last 10 years old), tiffani lens removed. Past Anesthesia/Blood Transfusion Reactions: No Reported Reaction Past Psychological History: Anxiety Smoking Status: Current every day smoker Past Alcohol Use History: None Reported Past Drug Use History: None Reported - Past Family History Father Additional Family Medical History / Comment(s): Father is with history of AIDS. Mother Family Medical History: Diabetes Mellitus Additional Family Medical History / Comment(s): Mother at age 49 from liver cirrhosis secondary to alcohol abuse. Brother(s) Additional Family Medical History / Comment(s): Patient has one brother with no major medical problems. Patient does not have any sisters. Patient does not have any children. General Exam Limitations: no limitations General appearance: alert, other (Marfanoid habitus) Head exam: Present: atraumatic, normocephalic Eye exam: Present: normal appearance, PERRL Neck exam: Present: normal inspection. Absent: tenderness Respiratory exam: Present: normal lung sounds bilaterally. Absent: respiratory distress Cardiovascular Exam: Present: regular rate, normal rhythm, systolic murmur GI/Abdominal exam: Present: soft. Absent: distended, tenderness Extremities exam: Present: normal inspection, normal capillary refill. Absent: pedal edema Back exam: Present: tenderness, paraspinal tenderness, other (Severe scoliosis and kyphosis) Neurological exam: Present: alert, oriented X3, CN II-XII intact, motor sensory deficit (rt upper extremity sensory deficit, this is chronic) Psychiatric exam: Present: normal affect, normal mood Skin exam: Present: warm, dry, intact, cyanosis. Absent: diaphoretic Course Vital Signs 09/24/17 11:45 Temperature 97.7 F Pulse Rate 84 Respiratory 16 Rate Blood Pressure 115/69 O2 Sat by Pulse 99 Oximetry Medical Decision Making - Medical Decision Making 32-year-old female presenting with chronic back pain. Patient has multiple medical problems. INR was checked 2 days ago and was 2.0. She is on Coumadin for history of mechanical heart valve. Complaining of dysuria and additional to her chronic back pain, urinalysis shows signs of infection including 88 WBCs. Urine culture will be obtained. Patient will be started on Keflex which she has taken in the past. She has remote history of penicillin ALLERGY but has taken Keflex without issues. Diagnosis: UTI, chronic back pain - Lab Data Lab Results 09/24/17 Range/Units 12:15 Urine Color Yellow Urine Appearance Cloudy H (Clear) Urine pH 6.5 (5.0-8.0) Ur Specific [place] 1.007 (1.001-1.035) Urine Protein Negative (Negative) Urine Glucose (UA) Negative (Negative) Urine Ketones Negative (Negative) Urine Blood Trace H (Negative) Urine Nitrite Negative (Negative) Urine Bilirubin Negative (Negative) Urine Urobilinogen <2.0 (<2.0) mg/dL Ur Leukocyte Esterase Large H (Negative) Urine RBC 13 H (0-5) /hpf Urine WBC 88 H (0-5) /hpf Ur Squamous Epith Cells 17 H (0-4) /hpf Urine Bacteria Many H (None) /hpf Disposition Clinical Impression: UTI (urinary tract infection), Chronic back pain Disposition: HOME SELF-CARE Condition: Fair Instructions: Urinary Tract Infection in Women (ED), Chronic Back Pain (ED) Prescriptions: Cephalexin [Keflex] 500 mg PO Q12HR #14 cap oxyCODONE HCL/ACETAMINOPHEN [Percocet 5-325 mg] 1 tab PO Q6HR PRN #12 tab PRN Reason: Severe Pain Referrals: Karina Chand MD [Primary Care Provider] - 1-2 days Time of Disposition: 12:41
[2017-09-24 12:30] LABS: Appearance,Urine Cloudy (Clear); Bacteria,Urine Many /hpf; Bilirubin,Urine Negative (Negative); Blood,Urine Trace (Negative); Color,Urine Yellow; Glucose,Urine (UA) Negative (Negative); Ketones,Urine Negative (Negative); Leukocyte Esterase,Urine Large (Negative); Nitrite,Urine Negative (Negative); PH, Urine 6.5 (5.0-8.0); Protein,Urine Negative (Negative); RBC,Urine 13 /hpf (0-5); Specific Gravity,Urine 1.007 (1.001-1.035); Squamous Epithelial Cell,Urine 17 /hpf (0-4); Urobilinogen,Urine <2.0 mg/dL (<2.0); WBC,Urine 88 /hpf (0-5)
[2017-09-24] MEDS ORDERED: oxyCODONE-APAP 5-325MG 1 EACH TAB PO STA (12:37)
[2017-09-24 13:25] VITALS: BP 118/78; PULSE 87; RESP 20; TEMP 98.7
== END 2017-09-24 13:24 | disposition home or self-care (01) ==
LOC: EC 11:40
DX: N39.0 Urinary tract infection, site not specified (principal); M54.9 Dorsalgia, unspecified; G89.29 Other chronic pain; M41.9 Scoliosis, unspecified; F17.200 Nicotine dependence, unspecified, uncomplicated; Z86.14 Personal history of Methicillin resistant Staphylococcus aureus infection; Z86.73 Personal history of transient ischemic attack (TIA), and cerebral infarction without residual deficits; Z79.01 Long term (current) use of anticoagulants; Z88.0 Allergy status to penicillin; Z88.8 Allergy status to other drugs, medicaments and biological substances
CPT/HCPCS: 81001; 99284

== ENCOUNTER 2017-10-10 16:55 | Observation (INO) | payer OTHER ==
--- NOTE | 2017-10-10 18:43 | ED ---
General Adult HPI - General Source: patient, RN notes reviewed Mode of arrival: ambulatory Limitations: no limitations <Kumar Bowers - Last Filed: 10/10/17 20:02> <Damian Dixon - Last Filed: 10/10/17 20:16> - General Chief complaint: Shortness of Breath Stated complaint: Diff Breathing Time Seen by Provider: 10/10/17 18:34 - History of Present Illness Initial comments: Patient is a 32-year-old female who presents emergency room today with chief complaint of increased shortness of breath over the last 2 days. She has been some cough congestion. She does admit to chronic pain. She states that there is no new pain. She does not that she's been taking her medications. She is on Coumadin. Patient denies any other complaints or symptoms at this time. Patient denies any recent fever, chills, shortness of breath, chest pain, abdominal pain, nausea or vomiting, headaches or visual changes, or any other complaints. (Kumar Bowers) - Related Data Home Medications Medication Instructions Recorded Confirmed Warfarin [Coumadin] 5 mg PO DAILY 09/18/17 10/10/17 diphenhydrAMINE HCL [Benadryl] 50 mg PO DAILY PRN 09/22/17 10/10/17 HYDROcodone/APAP 5-325MG [Venus 1 tab PO Q8HR PRN 10/10/17 10/10/17 5-325] Previous Rx's Medication Instructions Recorded Baclofen [Lioresal] 10 mg PO QID #60 tab 07/31/17 DULoxetine HCL [Cymbalta] 30 mg PO DAILY #30 capsule. 10/02/17 Enoxaparin [Lovenox] 60 mg SQ Q12HR syringe 10/02/17 Gabapentin [Neurontin] 400 mg PO TID #90 cap 10/02/17 Imipramine [Tofranil] 37.5 mg PO HS #45 tab 10/02/17 OLANZapine [ZyPREXA] 15 mg PO HS #30 tab 10/02/17 Pregabalin [Lyrica] 50 mg PO BID #60 cap 10/02/17 Allergies Allergy/AdvReac Type Severity Reaction Status Date / Time chlordiazepoxide HCl Allergy Unknown Verified 10/10/17 18:46 [From Librium] Penicillins Allergy Rash/Hives Verified 10/10/17 18:46 prochlorperazine edisylate Allergy PANIC Verified 10/10/17 18:46 [From Compazine] ATTACK prochlorperazine maleate Allergy PANIC Verified 10/10/17 18:46 [From Compazine] ATTACK Review of Systems ROS Other: All systems not noted in ROS Statement are negative. <BowersKumar - Last Filed: 10/10/17 20:02> ROS Other: All systems not noted in ROS Statement are negative. <TatebiacarlosDamian Keegan - Last Filed: 10/10/17 20:16> ROS Statement: Those systems with pertinent positive or pertinent negative responses have been documented in the HPI. Past Medical History Past Medical History: Heart Failure, CVA/TIA, Neurologic Disorder, Osteoarthritis (OA), Pneumonia Additional Past Medical History / Comment(s): Stroke with residual right-sided weakness 2017, marfan's syndrome, ArnoldChiari malformation, spontaneous pneumothorax x 21, scoliosis and pectus excavatum secondary to Marfan's, chronic back pain, bilateral leg pain, sinus infections, STATED HAS POOR CIRCULATION, viral meningitis, HEP C. History of Any Multi-Drug Resistant Organisms: None Reported, MRSA Date of last positivie culture/infection: 05/05/2010 MDRO Source:: back per patient Past Surgical History: Cardiac Valve Replacement, Coronary Bypass/CABG, Joint Replacement Additional Past Surgical History / Comment(s): 10-27-16 I&D RT FOREARM ABCESS, left upper lobectomy age 16, left hip fracture-ORIF, right foot corrective surgery, R shoulder surgery following injury, CABG x4 vessel, aortic root graft , aortic valve replaced as child (2 separate surgeries last 10 years old), tiffani lens removed. Past Anesthesia/Blood Transfusion Reactions: No Reported Reaction Past Psychological History: Anxiety Smoking Status: Current every day smoker Past Alcohol Use History: None Reported Past Drug Use History: None Reported - Past Family History Father Additional Family Medical History / Comment(s): Father is with history of AIDS. Mother Family Medical History: Diabetes Mellitus Additional Family Medical History / Comment(s): Mother at age 49 from liver cirrhosis secondary to alcohol abuse. Brother(s) Additional Family Medical History / Comment(s): Patient has one brother with no major medical problems. Patient does not have any sisters. Patient does not have any children. <Kumar Bowers - Last Filed: 10/10/17 20:02> General Exam Limitations: no limitations <Kumar Bowers - Last Filed: 10/10/17 20:02> <Damian Dixon - Last Filed: 10/10/17 20:16> - General Exam Comments Initial Comments: General: The patient is awake and alert, in no distress, and does not appear acutely ill. Eye: Pupils are equal, round and reactive to light, extra-ocular movements are intact. No nystagmus. There is normal conjunctiva bilaterally. No signs of icterus. Ears, nose, mouth and throat: There are moist mucous membranes and no oral lesions. Neck: The neck is supple, there is no tenderness or JVD. Cardiovascular: There is a regular rate and rhythm. No murmur, rub or gallop is appreciated. Respiratory: Lungs are clear to auscultation, respirations are non-labored, breath sounds are equal. No wheezes, stridor, rales, or rhonchi. Musculoskeletal: Normal ROM. Strength 5/5. Sensation intact. Pulses equal bilaterally 2+. Neurological: A&O x 3. CN II-XII intact, There are no obvious motor or sensory deficits. Coordination appears grossly intact. Speech is normal. Skin: Skin is warm and dry and no rashes or lesions are noted. Psychiatric: Cooperative, appropriate mood & affect, normal judgment. (Kumar Bowers) Vital Signs 10/10/17 10/10/17 10/10/17 17:33 18:48 20:03 Temperature 97.2 F L 98.0 F Pulse Rate 110 H 101 H 102 H Respiratory 20 17 Rate Blood Pressure 121/71 125/71 120/61 O2 Sat by Pulse 95 94 L 94 L Oximetry EKG Findings - EKG Comments: EKG Findings:: EKG performed at 1859: Shows sinus tachycardia to 102 beats per minute. [place] interval 202. QRS 104. QT/QTC 368/479. No acute changes. <Kumar Bowers - Last Filed: 10/10/17 20:02> Medical Decision Making - Lab Data Result diagrams: 10/10/17 18:49 10/10/17 18:49 <Kumar Bowers - Last Filed: 02/06/18 20:02> - Lab Data Result diagrams: 10/10/17 18:49 10/10/17 18:49 <Damian Dixon - Last Filed: 10/10/17 20:16> - Medical Decision Making Case discussed in detail with attending physician Dr. Dixon. Patient reexamined at this time shows no signs of distress resting comfortably. Patient 's EKG showed been reviewed shows sinus tachycardia. No acute changes. Patient 's INR 6.1 today. Remaining labs been reviewed. Hemoglobin 9.5 to the same as previous lab draw. Patient denies any bleeding. Patient resting comfortably in stretcher. She denies any new pain. Does not some cough congestion of last 3 days chest x-rays negative for any pneumonia but does show evidence for pulmonary edema. Patient does have history of heart failure. Troponin reviewed and is 0.032. Patient does show some hypoxia at 94% on room air. Patient will be admitted to the hospital for further evaluation. (Kumar Bowers ) - Lab Data Lab Results 10/10/17 10/10/17 10/10/17 Range/Units 18:49 18:49 18:49 WBC 6.7 (3.8-10.6) k/uL RBC 4.08 (3.80-5.40) m/uL Hgb 9.4 L (11.4-16.0) gm/dL Hct 31.8 L (34.0-46.0) % MCV 77.8 L (80.0-100.0) fL MCH 23.0 L (25.0-35.0) pg MCHC 29.6 L (31.0-37.0) g/dL RDW 16.5 H (11.5-15.5) % Plt Count 393 (150-450) k/uL Neutrophils % 80 % Lymphocytes % 13 % Monocytes % 3 % Eosinophils % 1 % Basophils % 1 % Neutrophils # 5.4 (1.3-7.7) k/uL Lymphocytes # 0.8 L (1.0-4.8) k/uL Monocytes # 0.2 (0-1.0) k/uL Eosinophils # 0.1 (0-0.7) k/uL Basophils # 0.0 (0-0.2) k/uL Hypochromasia Marked Poikilocytosis Slight Anisocytosis Slight Microcytosis Slight PT (9.0-12.0) sec INR (<1.2) APTT (22.0-30.0) sec Sodium 142 (137-145) mmol/L Potassium 4.4 (3.5-5.1) mmol/L Chloride 107 (98-107) mmol/L Carbon Dioxide 24 (22-30) mmol/L Anion Gap 11 mmol/L BUN 14 (7-17) mg/dL Creatinine 0.60 (0.52-1.04) mg/dL Est GFR (MDRD) Af Amer >60 (>60 ml/min/1.73 sqM) Est GFR (MDRD) Non-Af >60 (>60 ml/min/1.73 sqM) Glucose 96 (74-99) mg/dL Calcium 9.1 (8.4-10.2) mg/dL Total Bilirubin 0.4 (0.2-1.3) mg/dL AST 24 (14-36) U/L ALT 20 (9-52) U/L Alkaline Phosphatase 104 (38-126) U/L Total Creatine Kinase 31 (30-135) U/L CK-MB (CK-2) 1.3 (0.0-2.4) ng/mL CK-MB (CK-2) Rel Index 4.2 Troponin I 0.032 (0.000-0.034) ng/mL Total Protein 8.2 (6.3-8.2) g/dL Albumin 3.7 (3.5-5.0) g/dL 10/10/17 Range/Units 18:49 WBC (3.8-10.6) k/uL RBC (3.80-5.40) m/uL Hgb (11.4-16.0) gm/dL Hct (34.0-46.0) % MCV (80.0-100.0) fL MCH (25.0-35.0) pg MCHC (31.0-37.0) g/dL RDW (11.5-15.5) % Plt Count (150-450) k/uL Neutrophils % % Lymphocytes % % Monocytes % % Eosinophils % % Basophils % % Neutrophils # (1.3-7.7) k/uL Lymphocytes # (1.0-4.8) k/uL Monocytes # (0-1.0) k/uL Eosinophils # (0-0.7) k/uL Basophils # (0-0.2) k/uL Hypochromasia Poikilocytosis Anisocytosis Microcytosis PT 55.2 H (9.0-12.0) sec INR >5.0 H* (<1.2) APTT 47.6 H (22.0-30.0) sec Sodium (137-145) mmol/L Potassium (3.5-5.1) mmol/L Chloride (98-107) mmol/L Carbon Dioxide (22-30) mmol/L Anion Gap mmol/L BUN (7-17) mg/dL Creatinine (0.52-1.04) mg/dL Est GFR (MDRD) Af Amer (>60 ml/min/1.73 sqM) Est GFR (MDRD) Non-Af (>60 ml/min/1.73 sqM) Glucose (74-99) mg/dL Calcium (8.4-10.2) mg/dL Total Bilirubin (0.2-1.3) mg/dL AST (14-36) U/L ALT (9-52) U/L Alkaline Phosphatase (38-126) U/L Total Creatine Kinase (30-135) U/L CK-MB (CK-2) (0.0-2.4) ng/mL CK-MB (CK-2) Rel Index Troponin I (0.000-0.034) ng/mL Total Protein (6.3-8.2) g/dL Albumin (3.5-5.0) g/dL Disposition <Kumar Bowers - Last Filed: 10/10/17 20:02> Decision to Admit Reason: Admit from EC Decision Date: 10/10/17 Decision Time: 20:16 <Damian Dixon - Last Filed: 10/10/17 20:16> Clinical Impression: Congestive heart failure, Mechanical heart valve present, Supratherapeutic INR Disposition: ADMITTED IP TO THIS [facility] Condition: Stable Referrals: Karina Chand MD [Primary Care Provider] - 1-2 days
[2017-10-10 19:01] LABS: Anisocytosis Slight; Basophils % (A) 1 %; Eosinophils # (A) 0.1 k/uL (0-0.7); Eosinophils % (A) 1 %; HCT 31.8 % (34.0-46.0); HGB 9.4 gm/dL (11.4-16.0); Hypochromasia Marked; Lymphocytes # (A) 0.8 k/uL (1.0-4.8); Lymphocytes % (A) 13 %; MCHC 29.6 g/dL (31.0-37.0); MCV 77.8 fL (80.0-100.0); Mean Platelet Volume 6.4; Microcytosis Slight; Monocytes # (A) 0.2 k/uL (0-1.0); Monocytes % (A) 3 %; Neutrophils # (A) 5.4 k/uL (1.3-7.7); Neutrophils % (A) 80 %; Platelet Count 393 k/uL (150-450); Poikilocytosis Slight; RBC 4.08 m/uL (3.80-5.40); RDW 16.5 % (11.5-15.5); WBC 6.7 k/uL (3.8-10.6)
[2017-10-10 19:18] LABS: Partial Thromboplastin Time 47.6 sec (22.0-30.0); Prothrombin Time 55.2 sec (9.0-12.0)
[2017-10-10 19:22] LABS: INR >5.0 (<1.2)
[2017-10-10 19:26] LABS: ALT 20 U/L (9-52); AST 24 U/L (14-36); Albumin 3.7 g/dL (3.5-5.0); Alkaline Phosphatase 104 U/L (38-126); Anion Gap 11 mmol/L; Blood Urea Nitrogen 14 mg/dL (7-17); Calcium 9.1 mg/dL (8.4-10.2); Carbon Dioxide 24 mmol/L (22-30); Chloride 107 mmol/L (98-107); Glucose 96 mg/dL (74-99); Potassium 4.4 mmol/L (3.5-5.1); Sodium 142 mmol/L (137-145); Total Bilirubin 0.4 mg/dL (0.2-1.3); Total Protein 8.2 g/dL (6.3-8.2)
[2017-10-10 19:36] LABS: Creatine Kinase MB 1.3 ng/mL (0.0-2.4); Troponin I 0.032 ng/mL (0.000-0.034)
--- NOTE | 2017-10-10 19:37 | XR ---
EXAMINATION: XR chest 2V DATE AND TIME: 10/10/2017 7:06 PM ORDERING PROVIDER: Kumar Bowers CLINICAL INDICATION: difficulty breathing TECHNIQUE: PA and lateral COMPARISON: 08/22/2017 DESCRIPTION: Architectural distortion is redemonstrated. There is mild obscuration of the pulmonary vasculature bilaterally due to a fine reticular pattern of increased density bilaterally and symmetrically within the mid and lower lungs consistent with mild interstitial phase pulmonary edema, presumably cardiogenic due to the moderate enlargement of the car diac silhouette. Small right pleural effusion noted. The skeletal structures are intact without focal findings. The soft tissues are unremarkable. IMPRESSION: RADIOGRAPHIC FEATURES CONSISTENT WITH INTERSTITIAL PHASE CARDIOGENIC PULMONARY EDEMA.
[2017-10-10] MEDS ORDERED: FUROSEMIDE 10 MG/ML 4 ML VIAL IV STA (20:13)
[2017-10-10] MEDS ORDERED: NALOXONE 0.4 MG/ML 1 ML VIAL IV PRN (20:13)
[2017-10-10] MEDS ORDERED: HYDROcodone/APAP 5-325MG 1 EACH TAB PO PRN (22:39)
[2017-10-10] MEDS ORDERED: diphenhydrAMINE 25 MG CAP PO PRN (22:39)
[2017-10-10] MEDS ORDERED: oxyCODONE-APAP 5-325MG 1 EACH TAB PO PRN (23:33)
[2017-10-10] MEDS ORDERED: ALPRAZolam 0.25 MG TAB PO PRN (23:33)
--- NOTE | 2017-10-11 00:54 | P.HPIM ---
History of Present Illness H&P Date: 10/10/17 Chief Complaint: shortness of breath 32 year old female well known to our service, presented with progressive exertional dyspnea and coughing. Patient reports 2 day history of SOB with minimal activity , and orthopnea. SHe also noticed congestion with frequent coughing of 1 day duration but cant seem to clear her chest. SHe denies any sick contacts, and claims to be compliant with her daily medications. SHe denies any bleeding. SHe denies any fever, chills, chest pain, changes in her urinary or bowel habits, denies any leg swelling. Denies any abd pain, nausea or vomiting, or diarrhea. Review of Systems Pertinent positives as noted in HPI. All other systems were reviewed and are negative Past Medical History Past Medical History: Heart Failure, CVA/TIA, Neurologic Disorder, Osteoarthritis (OA), Pneumonia Additional Past Medical History / Comment(s): Stroke with residual right-sided weakness 2017, marfan's syndrome, ArnoldChiari malformation, spontaneous pneumothorax x 21, scoliosis and pectus excavatum secondary to Marfan's, chronic back pain, bilateral leg pain, sinus infections, STATED HAS POOR CIRCULATION, viral meningitis, HEP C. History of Any Multi-Drug Resistant Organisms: None Reported, MRSA Date of last positivie culture/infection: 05/05/2010 MDRO Source:: back per patient Past Surgical History: Cardiac Valve Replacement, Coronary Bypass/CABG, Joint Replacement Additional Past Surgical History / Comment(s): 10-27-16 I&D RT FOREARM ABCESS, left upper lobectomy age 16, left hip fracture-ORIF, right foot corrective surgery, R shoulder surgery following injury, CABG x4 vessel, aortic root graft , aortic valve replaced as child (2 separate surgeries last 10 years old), tiffani lens removed. 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 denies etoh or drug use and UDS negative - Past Family History Father Additional Family Medical History / Comment(s): Father is with history of AIDS. Mother Family Medical History: Diabetes Mellitus Additional Family Medical History / Comment(s): Mother at age 49 from liver cirrhosis secondary to alcohol abuse. Brother(s) Additional Family Medical History / Comment(s): Patient has one brother with no major medical problems. Patient does not have any sisters. Patient does not have any children. Medications and Allergies Home Medications Medication Instructions Recorded Confirmed Type Baclofen [Lioresal] 10 mg PO QID #60 tab 07/31/17 10/10/17 Rx Warfarin [Coumadin] 5 mg PO DAILY 09/18/17 10/10/17 History diphenhydrAMINE HCL [Benadryl] 50 mg PO DAILY PRN 09/22/17 10/10/17 History DULoxetine HCL [Cymbalta] 30 mg PO DAILY #30 capsule. 10/02/17 10/10/17 Rx Enoxaparin [Lovenox] 60 mg SQ Q12HR syringe 10/02/17 10/10/17 Rx Gabapentin [Neurontin] 400 mg PO TID #90 cap 10/02/17 10/10/17 Rx Imipramine [Tofranil] 37.5 mg PO HS #45 tab 10/02/17 10/10/17 Rx OLANZapine [ZyPREXA] 15 mg PO HS #30 tab 10/02/17 10/10/17 Rx Pregabalin [Lyrica] 50 mg PO BID #60 cap 10/02/17 10/10/17 Rx HYDROcodone/APAP 5-325MG [[place] 1 tab PO Q8HR PRN 10/10/17 10/10/17 History 5-325] Allergies Allergy/AdvReac Type Severity Reaction Status Date / Time chlordiazepoxide HCl Allergy Unknown Verified 10/10/17 18:46 [From Librium] Penicillins Allergy Rash/Hives Verified 10/10/17 18:46 prochlorperazine edisylate Allergy PANIC Verified 10/10/17 18:46 [From Compazine] ATTACK prochlorperazine maleate Allergy PANIC Verified 10/10/17 18:46 [From Compazine] ATTACK Physical Exam Vitals: Vital Signs Temp Pulse Pulse Resp BP BP Pulse Ox 10/10/17 23:00 98 F 109 H 17 146/78 93 L 10/10/17 21:40 98.2 F 105 H 16 146/82 95 10/10/17 20:03 98.0 F 102 H 17 120/61 94 L 10/10/17 18:48 101 H 125/71 94 L 10/10/17 17:33 97.2 F L 110 H 20 121/71 95 Intake and Output 10/10/17 10/10/17 10/11/17 14:59 22:59 06:59 Intake Total 30 Balance 30 Intake: Amount of Fluid Infused ( 30 ml) Other: Weight 52.5 kg Patient Weight 10/11/17 06:59 Weight 52.5 kg Constitutional: No acute distress, conversant, pleasant, marfanoid features, scoliosis Eyes: Anicteric sclerae, moist conjunctiva, no lid-lag Pupils equal round reactive to light ENMT: NC/AT Oropharynx clear, no erythema, exudates Neck: Supple, FROM, no masses, or JVD No carotid bruits No thyromegaly Lungs: good breath sounds, some fine inspiratory rales at lung bases Clear to percussion Normal respiratory effort, no accessory muscle use Cardiovascular: Heart regular in rate and rhythm, mechanical click +, systolic murmur, no gallops, or rubs +1 peripheral edema Abdominal: Soft Nontender, no guarding, rebound or rigidity Abdomen moving with respiration Normoactive bowel sounds No hepatomegaly, No splenomegaly No palpable mass No abdominal wall hernia noted Skin: Normal temperature, tone, texture, turgor No induration No subcutaneous nodules No rash, lesions No ulcers Extremities: No digital cyanosis No clubbing Pedal pulses intact and symmetrical Radial pulses intact and symmetrical No calf tenderness Psychiatric: Alert and oriented to person, place and time Appropriate affect fair judgment Neuro Muscles Strength 4/5 in all 4 extremities Sensation to light touch grossly present throughout Cranial nerves II-XII grossly intact No focal sensory deficits Lymphatics: no palpable cervical or supraclavicular , or inguinal lymph nodes Results CBC & Chem 7: 10/10/17 18:49 10/10/17 18:49 Labs: Abnormal Lab Results - Last 24 Hours (Table) 10/10/17 10/10/17 Range/Units 18:49 18:49 Hgb 9.4 L (11.4-16.0) gm/dL Hct 31.8 L (34.0-46.0) % MCV 77.8 L (80.0-100.0) fL MCH 23.0 L (25.0-35.0) pg MCHC 29.6 L (31.0-37.0) g/dL RDW 16.5 H (11.5-15.5) % Lymphocytes # 0.8 L (1.0-4.8) k/uL PT 55.2 H (9.0-12.0) sec INR >5.0 H* (<1.2) APTT 47.6 H (22.0-30.0) sec Thrombosis Risk Factor Assmnt - Choose All That Apply Any of the Below Risk Factors Present?: No Other Risk Factors: No Thrombosis Risk Factor Assessment Level: Very Low Risk Assessment and Plan Plan: # Pulmonary edema , r/o heart failure ECHO from 08/2017 showed normal LVEF of 55-60% check limited ECHO IV diuresis monitor vital signs oxygen NC to keep sat >92% #. new onset anemia on blood thinners denies GI bleeidng check FOBT #. supratheraputic INR mechanical heart valve coumadin on hold goal INR 2.5-3.5 #. sinus tachycardia low dose BB , metoprolol 12.5 BID #. DVT prophylaxis on coumadin for mechanical heart valve Preformed a thorough record review from recent hospitalization , multiple admissions for suicidal ideation. reviewed her most recent discharge summary and echocardiogram CODE STATUS:full code DVT prophylaxis: on coumadin Discussed with: Patient, ER Anticipated discharge: 48 -72 hours
[2017-10-11 08:08] VITALS: BP 126/73; PULSE 94; RESP 16; TEMP 97.4
[2017-10-11 08:24] LABS: Anisocytosis Slight; Basophils # (A) 0.1 k/uL (0-0.2); Basophils % (A) 1 %; Eosinophils # (A) 0.1 k/uL (0-0.7); Eosinophils % (A) 1 %; HCT 36.3 % (34.0-46.0); HGB 10.7 gm/dL (11.4-16.0); Hypochromasia Marked; Lymphocytes # (A) 0.8 k/uL (1.0-4.8); Lymphocytes % (A) 13 %; MCH 23.2 pg (25.0-35.0); MCHC 29.4 g/dL (31.0-37.0); MCV 78.8 fL (80.0-100.0); Mean Platelet Volume 6.1; Microcytosis Slight; Monocytes # (A) 0.2 k/uL (0-1.0); Monocytes % (A) 4 %; Neutrophils # (A) 5.2 k/uL (1.3-7.7); Neutrophils % (A) 79 %; Platelet Count 441 k/uL (150-450); RDW 17.1 % (11.5-15.5); WBC 6.5 k/uL (3.8-10.6)
[2017-10-11 08:28] LABS: INR 4.7 (<1.2)
[2017-10-11 08:34] LABS: ALT 20 U/L (9-52); AST 23 U/L (14-36); Albumin 4.1 g/dL (3.5-5.0); Alkaline Phosphatase 122 U/L (38-126); Anion Gap 12 mmol/L; Blood Urea Nitrogen 12 mg/dL (7-17); Calcium 9.5 mg/dL (8.4-10.2); Carbon Dioxide 26 mmol/L (22-30); Chloride 104 mmol/L (98-107); Glucose 88 mg/dL (74-99); Potassium 4.4 mmol/L (3.5-5.1); Sodium 142 mmol/L (137-145); Total Bilirubin 0.7 mg/dL (0.2-1.3); Total Protein 8.8 g/dL (6.3-8.2)
[2017-10-11] MEDS ORDERED: NICOTINE 14MG/24HR PATCH TRANSDERM SCH (09:00)
[2017-10-11] MEDS ORDERED: METOPROLOL TARTRATE 12.5 MG TAB PO SCH (09:00)
[2017-10-11] MEDS ORDERED: GABAPENTIN 400 MG CAP PO SCH (09:00)
[2017-10-11] MEDS ORDERED: DULoxetine HCL 30 MG CAPSULE.DR PO SCH (09:00)
[2017-10-11] MEDS ORDERED: FUROSEMIDE 10 MG/ML 4 ML VIAL IV SCH (09:00)
[2017-10-11] MEDS ORDERED: BACLOFEN 10 MG TAB PO SCH (09:00)
[2017-10-11] MEDS ORDERED: PREGABALIN 50 MG CAP PO SCH (09:00)
--- NOTE | 2017-10-11 09:55 | P.PN ---
Subjective Progress Note Date: 10/11/17 Principal diagnosis: Shortness of breath 32-year-old female with history of Marfan syndrome with multiple replacements comes in with symptoms of shortness of breath Objective - Vital Signs Vital signs: Vital Signs Temp 97.4 F L 10/11/17 07:00 Pulse 94 10/11/17 07:00 Resp 16 10/11/17 07:00 BP 126/73 10/11/17 07:00 Pulse Ox 94 L 10/11/17 07:00 Intake & Output 10/10/17 10/11/17 10/11/17 18:59 06:59 18:59 Intake Total 30 Balance 30 Weight 50.802 kg 52.5 kg Intake: Amount of Fluid Infused ( 30 ml) Other: Voiding Method Toilet # Voids 1 - Exam gen:alert and oriented lungs:clear to auscultation heart:s1s2 abdomen:soft and depressible,non tender ext:no edema - Labs CBC & Chem 7: 10/11/17 07:37 10/11/17 07:37 Labs: Abnormal Lab Results - Last 24 Hours (Table) 10/10/17 10/10/17 10/11/17 Range/Units 18:49 18:49 07:37 Hgb 9.4 L 10.7 L (11.4-16.0) gm/dL Hct 31.8 L (34.0-46.0) % MCV 77.8 L 78.8 L (80.0-100.0) fL MCH 23.0 L 23.2 L (25.0-35.0) pg MCHC 29.6 L 29.4 L (31.0-37.0) g/dL RDW 16.5 H 17.1 H (11.5-15.5) % Lymphocytes # 0.8 L 0.8 L (1.0-4.8) k/uL PT 55.2 H (9.0-12.0) sec INR >5.0 H* (<1.2) APTT 47.6 H (22.0-30.0) sec Total Protein (6.3-8.2) g/dL 10/11/17 10/11/17 Range/Units 07:37 07:37 Hgb (11.4-16.0) gm/dL Hct (34.0-46.0) % MCV (80.0-100.0) fL MCH (25.0-35.0) pg MCHC (31.0-37.0) g/dL RDW (11.5-15.5) % Lymphocytes # (1.0-4.8) k/uL PT 42.0 H (9.0-12.0) sec INR 4.7 H (<1.2) APTT (22.0-30.0) sec Total Protein 8.8 H (6.3-8.2) g/dL Assessment and Plan (1) Congestive heart failure Narrative/Plan: On Lasix 40 mg IV every 12 Clinically improving Await echo Current Visit: Yes Status: Acute Code(s): I50.9 - HEART FAILURE, UNSPECIFIED SNOMED Code(s): 55497673 (2) Anemia Narrative/Plan: Hemoglobin 10.7 No signs of bleeding Check iron profile Current Visit: Yes Status: Acute Code(s): D64.9 - ANEMIA, UNSPECIFIED SNOMED Code(s): 967940569 (3) Supratherapeutic INR Narrative/Plan: INR is 4.7 Current Visit: Yes Status: Acute Code(s): R79.1 - ABNORMAL COAGULATION PROFILE SNOMED Code(s): 938821213 (4) Mechanical heart valve present Narrative/Plan: On anticoagulation currently supratherapeutic Current Visit: Yes Status: Chronic Code(s): Z95.2 - PRESENCE OF PROSTHETIC HEART VALVE SNOMED Code(s): 27512326893046
[2017-10-11 10:38] VITALS: BMI 16.1
[2017-10-11 16:32] LABS: Iron Saturation 5.05 (12.00-45.00)
--- NOTE | 2017-10-11 18:51 | P.DS ---
Providers Date of admission: 10/10/17 20:13 Expected date of discharge: 10/11/17 Attending physician: Bruna Roblero MD Consults: 10/11/17 09:44 Consult Physician Routine Consulting Provider: Terry Briggs Consult Reason/Comments: fluid overload Do you want consulting provider notified?: Yes Primary care physician: Karina Chand MD - Discharge Diagnosis(es) (1) Congestive heart failure Status: Acute (2) Anemia Status: Acute (3) Supratherapeutic INR Status: Acute (4) Mechanical heart valve present Status: Chronic Hospital Course: 32-year-old female that was admitted secondary to fluid overload. Patient was started on IV diuretics. To which she responded. Clinically was improving. I was called and informed by RN the patient had left AGAINST MEDICAL ADVICE. Patient Condition at Discharge: Stable Plan - Discharge Summary New Discharge Prescriptions: No Action Baclofen [Lioresal] 10 mg PO QID #60 tab Warfarin [Coumadin] 5 mg PO DAILY diphenhydrAMINE HCL [Benadryl] 50 mg PO DAILY PRN PRN Reason: SHAKING Enoxaparin [Lovenox] 60 mg SQ Q12HR syringe DULoxetine HCL [Cymbalta] 30 mg PO DAILY #30 capsule. Gabapentin [Neurontin] 400 mg PO TID #90 cap Imipramine [Tofranil] 37.5 mg PO HS #45 tab OLANZapine [ZyPREXA] 15 mg PO HS #30 tab Pregabalin [Lyrica] 50 mg PO BID #60 cap HYDROcodone/APAP 5-325MG [[place] 5-325] 1 tab PO Q8HR PRN PRN Reason: Pain Discharge Medication List Baclofen [Lioresal] 10 mg PO QID #60 tab 07/31/17 [Rx] Warfarin [Coumadin] 5 mg PO DAILY 09/18/17 [History] diphenhydrAMINE HCL [Benadryl] 50 mg PO DAILY PRN 09/22/17 [History] DULoxetine HCL [Cymbalta] 30 mg PO DAILY #30 capsule. 10/02/17 [Rx] Enoxaparin [Lovenox] 60 mg SQ Q12HR syringe 10/02/17 [Rx] Gabapentin [Neurontin] 400 mg PO TID #90 cap 10/02/17 [Rx] Imipramine [Tofranil] 37.5 mg PO HS #45 tab 10/02/17 [Rx] OLANZapine [ZyPREXA] 15 mg PO HS #30 tab 10/02/17 [Rx] Pregabalin [Lyrica] 50 mg PO BID #60 cap 10/02/17 [Rx] HYDROcodone/APAP 5-325MG [[place] 5-325] 1 tab PO Q8HR PRN 10/10/17 [History] Follow up Appointment(s)/Referral(s): Karina Chand MD [Primary Care Provider] - 1-2 days Discharge Disposition: Left Against Medical Advice
[2017-10-11] MEDS ORDERED: OLANZapine 5 MG TAB PO SCH (21:00)
[2017-10-11] MEDS ORDERED: IMIPRAMINE 25 MG TAB PO SCH (21:00)
== END 2017-10-11 11:00 | disposition left against medical advice (07) ==
LOC: EC 16:55 → 5MS5E 20:13 → INTOOBSV 20:13 → UNDODISIN 10-11 11:00
PROVIDERS: ADMIT Internal Medicine; ATTEND Internal Medicine
DX: I50.9 Heart failure, unspecified (principal); D64.9 Anemia, unspecified; R79.1 Abnormal coagulation profile; Z95.2 Presence of prosthetic heart valve; I69.351 Hemiplegia and hemiparesis following cerebral infarction affecting right dominant side; Q87.40 Marfan syndrome, unspecified; M19.90 Unspecified osteoarthritis, unspecified site; F41.9 Anxiety disorder, unspecified; M41.9 Scoliosis, unspecified; G89.29 Other chronic pain; M54.9 Dorsalgia, unspecified; F17.210 Nicotine dependence, cigarettes, uncomplicated; Q07.00 Arnold-Chiari syndrome without spina bifida or hydrocephalus; R00.0 Tachycardia, unspecified; Z88.0 Allergy status to penicillin; Z79.899 Other long term (current) drug therapy; Z79.01 Long term (current) use of anticoagulants; Z79.891 Long term (current) use of opiate analgesic; Z88.8 Allergy status to other drugs, medicaments and biological substances; Z91.5 Personal history of self-harm; Z86.19 Personal history of other infectious and parasitic diseases; Z87.01 Personal history of pneumonia (recurrent); Z95.1 Presence of aortocoronary bypass graft; Z86.14 Personal history of Methicillin resistant Staphylococcus aureus infection; Z87.898 Personal history of other specified conditions; Z83.79 Family history of other diseases of the digestive system; Z83.0 Family history of human immunodeficiency virus [HIV] disease; Z83.3 Family history of diabetes mellitus; Z81.1 Family history of alcohol abuse and dependence
CPT/HCPCS: 96376; 96374; 99285; 36415; 93005; 80053 ×2; 82728; 82550; 82553; 83540; 83550; 84484; 85025 ×2; 85610 ×2; 85730; 71046; G0378 ×2; S4990; J1940 ×2

== ENCOUNTER 2017-10-16 12:51 | Emergency (ER) | payer OTHER ==
[2017-10-16] MEDS ORDERED: KETOROLAC 60 MG/2 ML VIAL IM STA (15:53)
[2017-10-16] MEDS ORDERED: ORPHENADRINE 30 MG/ML 2 ML VIAL IM STA (15:53)
--- NOTE | 2017-10-16 16:22 | ED ---
General Adult HPI - General Chief complaint: Headache Stated complaint: Pain in legs and spine Time Seen by Provider: 10/16/17 15:43 Source: patient, RN notes reviewed Mode of arrival: ambulatory Limitations: no limitations - History of Present Illness Initial comments: 32 yo female presents to the Er with cc of flare up of chronic back pain. Patient suffers from chronic back pain. She states it flared up causing her to have her typical headache from her back pain as well as her leg pain. She has a loss by bladder function. She denies any saddle anesthesia. She states exactly like her normal back pain. She is currently seen at [facility] and they don't have any orders for her to receive any Motrin or Tylenol. She states that she is to be a Narco but she's not had it in over 2 weeks. She was concerned due to her continued pain so they thought that she should be seen. Patient states exactly like her normal symptoms. Patient denies any recent fever , chills, shortness of breath, chest pain, abdominal pain, nausea vomiting, numbness or tingling, dysuria or hematuria, constipation or diarrhea, headaches or visual changes, or any other current symptoms. - Related Data Home Medications Medication Instructions Recorded Confirmed Warfarin [Coumadin] 7.5 mg PO DAILY 10/16/17 10/16/17 Previous Rx's Medication Instructions Recorded Baclofen [Lioresal] 10 mg PO QID #60 tab 07/31/17 DULoxetine HCL [Cymbalta] 30 mg PO DAILY #30 capsule. 10/02/17 Gabapentin [Neurontin] 400 mg PO TID #90 cap 10/02/17 Imipramine [Tofranil] 37.5 mg PO HS #45 tab 10/02/17 OLANZapine [ZyPREXA] 15 mg PO HS #30 tab 10/02/17 Ibuprofen [Motrin] 600 mg PO Q6HR PRN #20 tab 10/16/17 Allergies Allergy/AdvReac Type Severity Reaction Status Date / Time chlordiazepoxide HCl Allergy Unknown Verified 10/16/17 15:59 [From Librium] Penicillins Allergy Rash/Hives Verified 10/16/17 15:59 prochlorperazine edisylate Allergy PANIC Verified 10/16/17 15:59 [From Compazine] ATTACK prochlorperazine maleate Allergy PANIC Verified 10/16/17 15:59 [From Compazine] ATTACK Review of Systems ROS Statement: Those systems with pertinent positive or pertinent negative responses have been documented in the HPI. ROS Other: All systems not noted in ROS Statement are negative. Past Medical History Past Medical History: Heart Failure, CVA/TIA, Neurologic Disorder, Osteoarthritis (OA), Pneumonia Additional Past Medical History / Comment(s): Stroke with residual right-sided weakness 2017, marfan's syndrome, ArnoldChiari malformation, spontaneous pneumothorax x 21, scoliosis and pectus excavatum secondary to Marfan's, chronic back pain, bilateral leg pain, sinus infections, STATED HAS POOR CIRCULATION, viral meningitis, HEP C. History of Any Multi-Drug Resistant Organisms: None Reported, MRSA Date of last positivie culture/infection: 05/05/2010 MDRO Source:: back per patient Past Surgical History: Cardiac Valve Replacement, Coronary Bypass/CABG, Joint Replacement Additional Past Surgical History / Comment(s): 10-27-16 I&D RT FOREARM ABCESS, left upper lobectomy age 16, left hip fracture-ORIF, right foot corrective surgery, R shoulder surgery following injury, CABG x4 vessel, aortic root graft , aortic valve replaced as child (2 separate surgeries last 10 years old), tiffani lens removed. Past Anesthesia/Blood Transfusion Reactions: No Reported Reaction Past Psychological History: Anxiety Smoking Status: Current every day smoker Past Alcohol Use History: None Reported Past Drug Use History: None Reported - Past Family History Father Additional Family Medical History / Comment(s): Father is with history of AIDS. Mother Family Medical History: Diabetes Mellitus Additional Family Medical History / Comment(s): Mother at age 49 from liver cirrhosis secondary to alcohol abuse. Brother(s) Additional Family Medical History / Comment(s): Patient has one brother with no major medical problems. Patient does not have any sisters. Patient does not have any children. General Exam Limitations: no limitations General appearance: alert, in no apparent distress Head exam: Present: atraumatic, normocephalic, normal inspection Neck exam: Present: normal inspection. Absent: tenderness, meningismus, lymphadenopathy Respiratory exam: Present: normal lung sounds bilaterally. Absent: respiratory distress, wheezes, rales, rhonchi, stridor Cardiovascular Exam: Present: regular rate, systolic murmur GI/Abdominal exam: Present: soft, normal bowel sounds. Absent: distended, tenderness, guarding, rebound, rigid Back exam: Present: full ROM. Absent: normal inspection (Chronic curvature to the spine), tenderness Neurological exam: Present: alert, oriented X3 Psychiatric exam: Present: normal affect, normal mood Skin exam: Present: warm, dry, intact, normal color. Absent: rash Course Vital Signs 10/16/17 13:03 Temperature 97.6 F Pulse Rate 104 H Respiratory 18 Rate Blood Pressure 106/56 O2 Sat by Pulse 100 Oximetry Medical Decision Making - Medical Decision Making 32-year-old female presents for chronic flareup of her back pain. will prescribe her Motrin 600 for pain for home. At this time we did discuss continued follow-up with her doctor we discussed return parameters all questions. Patient stated that she understood and she is agreement this plan. All questions have been answered. She will be discharged. Disposition Clinical Impression: Chronic back pain Disposition: HOME SELF-CARE Condition: Stable Instructions: Chronic Back Pain (ED) Additional Instructions: Please use medication as discussed. Please follow up with family doctor if symptoms have not improved over the next two days. Please return to the emergency room if your symptoms increase or worsen or for any other concerns. Prescriptions: Ibuprofen [Motrin] 600 mg PO Q6HR PRN #20 tab PRN Reason: Pain Referrals: Karina Chand MD [Primary Care Provider] - 1-2 days Time of Disposition: 16:22
[2017-10-16 16:31] VITALS: BP 128/71; PULSE 95; RESP 16; TEMP 97
== END 2017-10-16 16:28 | disposition home or self-care (01) ==
LOC: EEVIPCON 12:51 → EC 12:51
DX: G89.29 Other chronic pain (principal); M54.9 Dorsalgia, unspecified; R51 Headache; M79.609 Pain in unspecified limb; Z86.73 Personal history of transient ischemic attack (TIA), and cerebral infarction without residual deficits; F17.200 Nicotine dependence, unspecified, uncomplicated; Z86.14 Personal history of Methicillin resistant Staphylococcus aureus infection; Z86.19 Personal history of other infectious and parasitic diseases; Z79.01 Long term (current) use of anticoagulants
CPT/HCPCS: 99283; 96372 ×2; J2360; J1885

== ENCOUNTER 2017-11-01 21:29 | Inpatient (IN) | payer OTHER ==
[2017-11-01] MEDS ORDERED: RX INFO: IV CONTRAST WAS GIVEN 1 EACH MISC MISCELLANE PRN (22:53)
[2017-11-01 23:22] LABS: Anisocytosis Slight; Basophils # (A) 0.1 k/uL (0-0.2); Basophils % (A) 1 %; Eosinophils # (A) 0.1 k/uL (0-0.7); Eosinophils % (A) 2 %; HCT 26.3 % (34.0-46.0); HGB 7.7 gm/dL (11.4-16.0); Hypochromasia Marked; Lymphocytes # (A) 1.3 k/uL (1.0-4.8); Lymphocytes % (A) 20 %; MCH 21.1 pg (25.0-35.0); MCHC 29.2 g/dL (31.0-37.0); MCV 72.2 fL (80.0-100.0); Mean Platelet Volume 7.5; Microcytosis Moderate; Monocytes # (A) 0.4 k/uL (0-1.0); Monocytes % (A) 6 %; Neutrophils # (A) 4.5 k/uL (1.3-7.7); Neutrophils % (A) 69 %; Platelet Count 343 k/uL (150-450); Poikilocytosis Moderate; RBC 3.64 m/uL (3.80-5.40); RDW 18.3 % (11.5-15.5); WBC 6.5 k/uL (3.8-10.6)
[2017-11-01 23:30] LABS: ALT 22 U/L (9-52); AST 43 U/L (14-36); Albumin 3.7 g/dL (3.5-5.0); Alkaline Phosphatase 131 U/L (38-126); Anion Gap 9 mmol/L; Blood Urea Nitrogen 16 mg/dL (7-17); Calcium 8.7 mg/dL (8.4-10.2); Carbon Dioxide 26 mmol/L (22-30); Chloride 106 mmol/L (98-107); Glucose 97 mg/dL (74-99); Sodium 141 mmol/L (137-145); Total Bilirubin 0.3 mg/dL (0.2-1.3); Total Protein 8.5 g/dL (6.3-8.2)
[2017-11-01] MEDS ORDERED: NALOXONE 0.4 MG/ML 10 ML VIAL IVP STA (23:38)
[2017-11-02] MEDS ORDERED: NALOXONE 0.4 MG/ML 1 ML VIAL IV STA
--- NOTE | 2017-11-02 00:12 | CT ---
EXAMINATION TYPE: CT abdomen pelvis w con DATE OF EXAM: 11/01/2017 COMPARISON: 02/16/2016 HISTORY: Lower abdominal pain CT DLP: 571.20 mGycm Automated exposure control for dose reduction was used. TECHNIQUE: Helical acquisition of images was performed from the lung bases through the pelvis. CONTRAST: Performed without Oral Contrast and with IV Contrast, patient injected with 100 mL of Omnipaque 300. FINDINGS: There is coarse interstitial density at the lung bases. There is no evidence of a pulmonary mass. The re is minimal loculated pleural fluid. There are bilateral bronchial enlarged lymph nodes up to 1.5 c m. There is minimal pleural thickening at the lung bases. Heart appears enlarged. There is no pericardial effusion. Liver shows no focal defect. Bile ducts are not dilated. There is no pancreatic mass. Gallbladder appears contracted. There is a 5 cm mass within the spleen. This has posterior enhancement with the contrast and late vlad ges show uniform enhancement. This could be a large aneurysm of the splenic artery or a splenic heman gioma. There is no adrenal mass. The kidneys have normal size and contour. There is no hydronephrosis. There is some cortical thinning on the anterior left kidney. There is no retroperitoneal adenopathy. There is no ascites. There is retained fecal material through out the colon. Bladder distends smoothly. There is no evidence of a pelvic mass. There is enlargement of the spinal canal in the lumbar spine and sacral spine consistent with meningomyelocele. There is no sign of free air. There is no ascites. There is left hip nailing. There is hypertrophic osteoarthr itis in the right hip joint. There is similar change in left hip joint. There is thoracolumbar levo k yphoscoliosis.: IMPRESSION: THERE ARE NEW INTERSTITIAL AND NODULAR PULMONARY INFILTRATES AT THE LUNG BASES COMPARED TO OLD EXAM A ND CONSISTENT WITH INFLAMMATORY DISEASE. LOCULATED SMALL PLEURAL EFFUSIONS. SPINAL SCOLIOTIC DEFORMITY. CARDIOMEGALY. THE HEART APPEARS INCREASED COMPARED TO OLD EXAM. THERE IS A VASCULAR MASS WITHIN THE SPLEEN THAT APPEARS NEW COMPARED TO LAST EXAM AND COULD BE LARGE SPLENIC ARTERY ANEURYSM OR UNUSUAL UNLIKELY HEMANGIOMA. CONSTIPATION. I DO NOT SEE EVIDENCE OF A MECHANICAL BOWEL OBSTRUCTION. CONSTIPATION APPEARS NEW RAHAT RED TO OLD EXAM.
--- NOTE | 2017-11-02 00:12 | ED ---
Abdominal Pain HPI - General Source: patient, RN notes reviewed, old records reviewed Mode of arrival: ambulatory Limitations: no limitations <Sabine Rolon - Last Filed: 11/02/17 01:17> <Satya Farah - Last Filed: 11/03/17 02:01> - General Chief Complaint: Abdominal Pain Stated Complaint: poss hernia Time Seen by Provider: 11/01/17 22:32 - History of Present Illness Initial Comments: This patient is a 32-year-old female wants emergency Department chief complaint abdominal pain and distention today. She reports that is been going on for the past 3-4 days she feels like she has a possible hernia she feels like her abdominal contents or protruding. She has a history significant for Marfan syndrome. She's had multiple surgeries related to her condition. Patient arrives somewhat drowsy. She reports that she took her night medications. She does have history of drug abuse. (Sabine Rolon) - Related Data Home Medications Medication Instructions Recorded Confirmed Warfarin [Coumadin] 7.5 mg PO DAILY@79910/16/17 11/01/17 Albuterol Inhaler [Ventolin Hfa 2 puff INHALATION RT-Q8H PRN 11/01/17 11/01/17 Inhaler] Cholecalciferol [Vitamin D3] 5,000 unit PO DAILY@79911/01/17 11/01/17 DULoxetine HCL [Cymbalta] 60 mg PO DAILY@00 11/01/17 11/01/17 Ferrous Sulfate [Feosol] 325 mg PO HS@209911/01/17 11/01/17 Imipramine [Tofranil] 50 mg PO HS@209911/01/17 11/01/17 OLANZapine [ZyPREXA] 15 mg PO HS@209911/01/17 11/01/17 Sulfamethox-Tmp 800-160Mg [Bactrim 1 tab PO Q12HR 11/01/17 11/01/17 DS 800-160 mg] Previous Rx's Medication Instructions Recorded Baclofen [Lioresal] 10 mg PO QID #60 tab 07/31/17 Gabapentin [Neurontin] 400 mg PO TID #90 cap 10/02/17 Ibuprofen [Motrin] 600 mg PO Q6HR PRN #20 tab 10/16/17 Allergies Allergy/AdvReac Type Severity Reaction Status Date / Time chlordiazepoxide HCl Allergy Unknown Verified 11/01/17 22:17 [From Librium] Penicillins Allergy Rash/Hives Verified 11/01/17 22:17 prochlorperazine edisylate Allergy PANIC Verified 11/01/17 22:17 [From Compazine] ATTACK prochlorperazine maleate Allergy PANIC Verified 11/01/17 22:17 [From Compazine] ATTACK Review of Systems ROS Other: All systems not noted in ROS Statement are negative. <Sabine Rolon - Last Filed: 11/02/17 01:17> ROS Other: All systems not noted in ROS Statement are negative. <Satya Farah - Last Filed: 11/03/17 02:01> ROS Statement: Those systems with pertinent positive or pertinent negative responses have been documented in the HPI. Past Medical History Past Medical History: Heart Failure, CVA/TIA, Neurologic Disorder, Osteoarthritis (OA), Pneumonia Additional Past Medical History / Comment(s): Stroke with residual right-sided weakness 2017, marfan's syndrome, ArnoldChiari malformation, spontaneous pneumothorax x 21, scoliosis and pectus excavatum secondary to Marfan's, chronic back pain, bilateral leg pain, sinus infections, STATED HAS POOR CIRCULATION, viral meningitis, HEP C. History of Any Multi-Drug Resistant Organisms: None Reported, MRSA Date of last positivie culture/infection: 05/05/2010 MDRO Source:: back per patient Past Surgical History: Cardiac Valve Replacement, Coronary Bypass/CABG, Joint Replacement Additional Past Surgical History / Comment(s): 10-27-16 I&D RT FOREARM ABCESS, left upper lobectomy age 16, left hip fracture-ORIF, right foot corrective surgery, R shoulder surgery following injury, CABG x4 vessel, aortic root graft , aortic valve replaced as child (2 separate surgeries last 10 years old), tiffani lens removed. Past Anesthesia/Blood Transfusion Reactions: No Reported Reaction Past Psychological History: Anxiety Smoking Status: Former smoker Past Alcohol Use History: None Reported Past Drug Use History: None Reported - Past Family History Father Additional Family Medical History / Comment(s): Father is with history of AIDS. Mother Family Medical History: Diabetes Mellitus Additional Family Medical History / Comment(s): Mother at age 49 from liver cirrhosis secondary to alcohol abuse. Brother(s) Additional Family Medical History / Comment(s): Patient has one brother with no major medical problems. Patient does not have any sisters. Patient does not have any children. <Sabine Rolon - Last Filed: 11/02/17 01:17> General Exam Limitations: no limitations General appearance: alert, in no apparent distress Head exam: Present: atraumatic, normocephalic, normal inspection Eye exam: Present: normal appearance, PERRL, EOMI. Absent: scleral icterus, conjunctival injection, periorbital swelling ENT exam: Present: normal exam, mucous membranes moist Neck exam: Present: normal inspection. Absent: tenderness, meningismus, lymphadenopathy Respiratory exam: Present: normal lung sounds bilaterally. Absent: respiratory distress, wheezes, rales, rhonchi, stridor Cardiovascular Exam: Present: regular rate, normal rhythm, systolic murmur. Absent: normal heart sounds (Patient has mechanical heart valves), diastolic murmur, rubs, gallop, clicks GI/Abdominal exam: Present: soft, tenderness (tenderness over umbilicus and distension), normal bowel sounds. Absent: distended, guarding, rebound, rigid Extremities exam: Present: normal inspection, full ROM, normal capillary refill , other (Patient has elongated Extremities consistent with Marfan syndrome.). Absent: tenderness, pedal edema, joint swelling, calf tenderness Back exam: Present: normal inspection Neurological exam: Present: alert, oriented X3, CN II-XII intact Psychiatric exam: Present: normal affect, normal mood Skin exam: Present: warm, dry, intact, normal color. Absent: rash <Sabine Rolon - Last Filed: 11/02/17 01:17> <Satya Farah - Last Filed: 11/03/17 02:01> - General Exam Comments Initial Comments: This is a 32-year-old female. No distress. (Sabine Rolon) Vital Signs 11/01/17 11/02/17 11/02/17 21:40 01:58 02:02 Temperature 97.4 F L 97.4 F L Pulse Rate 70 103 H Respiratory 20 25 H 18 Rate Blood Pressure 108/52 Blood Pressure 147/67 [Right Arm] O2 Sat by Pulse 99 93 L Oximetry 11/02/17 02:07 Temperature Pulse Rate 104 H Respiratory 18 Rate Blood Pressure Blood Pressure [Right Arm] O2 Sat by Pulse Oximetry Medical Decision Making - Lab Data Result diagrams: 11/01/17 23:10 11/01/17 23:10 - Radiology Data Radiology results: report reviewed <Sabine Rolon - Last Filed: 11/02/17 01:17> - Lab Data Result diagrams: 11/03/17 01:18 11/02/17 09:25 <Sayta Farah - Last Filed: 11/03/17 02:01> - Medical Decision Making Patient is a 32-year-old female well-known to the ER chief complaint of abdominal pain, distention. She reports that she felt she has a hernia. At this time patient did have some tenderness on exam. She has a significant history of Marfan syndrome multiple surgeries related to this including mechanical heart valves. Patient is on Coumadin for this. She did arrive very somnolent. She has a known history of drug abuse. Did give patient a half a dose of Narcan and she did become more arousable. Patient reports no chest pain shortness of breath. At this time patient's INR is significantly elevated at 9.1. CT abdomen and pelvis shows evidence of constipation, no hernia. There is a large mass around this pain. No active bleeding noted in the Skin at this time. It is also noted the patient had a drop in her hemoglobin between labwork that was done earlier today out patiently and her ER visit at this time. I discussed case with Dr. Friend. Dr. Friend discussed this with the on-call surgeon Dr. choi. He suggested admission and monitoring the patient. Dr. East was also informed. He suggested holding off on vitamin K and FFP due to patient's mechanical valves. We will discontinue warfarin. Patient will be admitted at this time. She agrees. (Sabine Rolon) I saw this patient in conjunction with the physician construction assistant. I performed independent history and physical exam. Agree with case management. Patient will be admitted to ensure that her INR is corrected, but given that she has mechanical valve preference is to do this slowly as long as there is no evidence of acute bleeding. Her case is discussed with Dr. Centeno, surgeon on-call, and also with Dr. Roblero , who is familiar with the patient and will admit. She does clinically appear stable at time of admission. (Satya Farah) - Lab Data Lab Results 11/01/17 11/01/17 11/02/17 Range/Units 23:10 23:10 00:01 WBC 6.5 (3.8-10.6) k/uL RBC 3.64 L (3.80-5.40) m/uL Hgb 7.7 L (11.4-16.0) gm/dL Hct 26.3 L (34.0-46.0) % MCV 72.2 L (80.0-100.0) fL MCH 21.1 L (25.0-35.0) pg MCHC 29.2 L (31.0-37.0) g/dL RDW 18.3 H (11.5-15.5) % Plt Count 343 (150-450) k/uL Neutrophils % 69 % Lymphocytes % 20 % Monocytes % 6 % Eosinophils % 2 % Basophils % 1 % Neutrophils # 4.5 (1.3-7.7) k/uL Lymphocytes # 1.3 (1.0-4.8) k/uL Monocytes # 0.4 (0-1.0) k/uL Eosinophils # 0.1 (0-0.7) k/uL Basophils # 0.1 (0-0.2) k/uL Hypochromasia Marked Poikilocytosis Moderate Anisocytosis Slight Microcytosis Moderate PT 85.3 H (9.0-12.0) sec INR 9.1 H* (<1.2) APTT 64.7 H (22.0-30.0) sec Sodium 141 (137-145) mmol/L Potassium 4.0 (3.5-5.1) mmol/L Chloride 106 (98-107) mmol/L Carbon Dioxide 26 (22-30) mmol/L Anion Gap 9 mmol/L BUN 16 (7-17) mg/dL Creatinine 0.60 (0.52-1.04) mg/dL Est GFR (MDRD) Af Amer >60 (>60 ml/min/1.73 sqM) Est GFR (MDRD) Non-Af >60 (>60 ml/min/1.73 sqM) Glucose 97 (74-99) mg/dL Plasma Lactic Acid Santino (0.7-2.0) mmol/L Calcium 8.7 (8.4-10.2) mg/dL Total Bilirubin 0.3 (0.2-1.3) mg/dL AST 43 H (14-36) U/L ALT 22 (9-52) U/L Alkaline Phosphatase 131 H (38-126) U/L Total Protein 8.5 H (6.3-8.2) g/dL Albumin 3.7 (3.5-5.0) g/dL Urine Opiates Screen (NotDetected) Ur Oxycodone Screen (NotDetected) Urine Methadone Screen (NotDetected) Ur Propoxyphene Screen (NotDetected) Ur Barbiturates Screen (NotDetected) U Tricyclic Antidepress (NotDetected) Ur Phencyclidine Scrn (NotDetected) Ur Amphetamines Screen (NotDetected) U Methamphetamines Scrn (NotDetected) U Benzodiazepines Scrn (NotDetected) Urine Cocaine Screen (NotDetected) U Marijuana (THC) Screen (NotDetected) Blood Type Blood Type Recheck Antibody Screen Transfuse Plasma Spec Expiration Date 11/02/17 11/02/17 11/02/17 Range/Units 01:04 01:04 01:04 WBC (3.8-10.6) k/uL RBC (3.80-5.40) m/uL Hgb (11.4-16.0) gm/dL Hct (34.0-46.0) % MCV (80.0-100.0) fL MCH (25.0-35.0) pg MCHC (31.0-37.0) g/dL RDW (11.5-15.5) % Plt Count (150-450) k/uL Neutrophils % % Lymphocytes % % Monocytes % % Eosinophils % % Basophils % % Neutrophils # (1.3-7.7) k/uL Lymphocytes # (1.0-4.8) k/uL Monocytes # (0-1.0) k/uL Eosinophils # (0-0.7) k/uL Basophils # (0-0.2) k/uL Hypochromasia Poikilocytosis Anisocytosis Microcytosis PT (9.0-12.0) sec INR (<1.2) APTT (22.0-30.0) sec Sodium (137-145) mmol/L Potassium (3.5-5.1) mmol/L Chloride (98-107) mmol/L Carbon Dioxide (22-30) mmol/L Anion Gap mmol/L BUN (7-17) mg/dL Creatinine (0.52-1.04) mg/dL Est GFR (MDRD) Af Amer (>60 ml/min/1.73 sqM) Est GFR (MDRD) Non-Af (>60 ml/min/1.73 sqM) Glucose (74-99) mg/dL Plasma Lactic Acid Santino 1.0 (0.7-2.0) mmol/L Calcium (8.4-10.2) mg/dL Total Bilirubin (0.2-1.3) mg/dL AST (14-36) U/L ALT (9-52) U/L Alkaline Phosphatase (38-126) U/L Total Protein (6.3-8.2) g/dL Albumin (3.5-5.0) g/dL Urine Opiates Screen (NotDetected) Ur Oxycodone Screen (NotDetected) Urine Methadone Screen (NotDetected) Ur Propoxyphene Screen (NotDetected) Ur Barbiturates Screen (NotDetected) U Tricyclic Antidepress (NotDetected) Ur Phencyclidine Scrn (NotDetected) Ur Amphetamines Screen (NotDetected) U Methamphetamines Scrn (NotDetected) U Benzodiazepines Scrn (NotDetected) Urine Cocaine Screen (NotDetected) U Marijuana (THC) Screen (NotDetected) Blood Type A Positive Blood Type Recheck No Antibody Screen NEGATIVE Transfuse Plasma 11/02/2017 Spec Expiration Date 11/05/2017230311/02/17 Range/Units 01:46 WBC (3.8-10.6) k/uL RBC (3.80-5.40) m/uL Hgb (11.4-16.0) gm/dL Hct (34.0-46.0) % MCV (80.0-100.0) fL MCH (25.0-35.0) pg MCHC (31.0-37.0) g/dL RDW (11.5-15.5) % Plt Count (150-450) k/uL Neutrophils % % Lymphocytes % % Monocytes % % Eosinophils % % Basophils % % Neutrophils # (1.3-7.7) k/uL Lymphocytes # (1.0-4.8) k/uL Monocytes # (0-1.0) k/uL Eosinophils # (0-0.7) k/uL Basophils # (0-0.2) k/uL Hypochromasia Poikilocytosis Anisocytosis Microcytosis PT (9.0-12.0) sec INR (<1.2) APTT (22.0-30.0) sec Sodium (137-145) mmol/L Potassium (3.5-5.1) mmol/L Chloride (98-107) mmol/L Carbon Dioxide (22-30) mmol/L Anion Gap mmol/L BUN (7-17) mg/dL Creatinine (0.52-1.04) mg/dL Est GFR (MDRD) Af Amer (>60 ml/min/1.73 sqM) Est GFR (MDRD) Non-Af (>60 ml/min/1.73 sqM) Glucose (74-99) mg/dL Plasma Lactic Acid Santino (0.7-2.0) mmol/L Calcium (8.4-10.2) mg/dL Total Bilirubin (0.2-1.3) mg/dL AST (14-36) U/L ALT (9-52) U/L Alkaline Phosphatase (38-126) U/L Total Protein (6.3-8.2) g/dL Albumin (3.5-5.0) g/dL Urine Opiates Screen Detected H (NotDetected) Ur Oxycodone Screen Not Detected (NotDetected) Urine Methadone Screen Not Detected (NotDetected) Ur Propoxyphene Screen Not Detected (NotDetected) Ur Barbiturates Screen Not Detected (NotDetected) U Tricyclic Antidepress Detected H (NotDetected) Ur Phencyclidine Scrn Not Detected (NotDetected) Ur Amphetamines Screen Not Detected (NotDetected) U Methamphetamines Scrn Not Detected (NotDetected) U Benzodiazepines Scrn Not Detected (NotDetected) Urine Cocaine Screen Not Detected (NotDetected) U Marijuana (THC) Screen Not Detected (NotDetected) Blood Type Blood Type Recheck Antibody Screen Transfuse Plasma Spec Expiration Date - Radiology Data CT shows no interstitial nodular pulmonary infiltrates at the lung base compared to old exam consistent with inflammatory disease. Loculated small pleural effusions. Spinal scoliotic deformity. Cardiomegaly. The heart appears increased compared to old exam. There is vascular mass seen within the spleen that appears new compared to the last exam. This could be a large splenic artery aneurysm or unusual unlikely hemangioma. Evidence of constipation. No evidence of small bowel obstruction. (Sabine Rolon) Disposition Time of Disposition: 01:20 <Sabine Rolon - Last Filed: 11/02/17 01:17> <Satya Farah - Last Filed: 11/03/17 02:01> Clinical Impression: Abdominal pain, Supratherapeutic INR, Hemangioma of spleen Disposition: ADMITTED IP TO THIS HOSP Condition: Stable
[2017-11-02 00:27] LABS: Prothrombin Time 85.3 sec (9.0-12.0)
[2017-11-02 00:28] LABS: Partial Thromboplastin Time 64.7 sec (22.0-30.0)
[2017-11-02 00:33] LABS: INR 9.1 (<1.2)
[2017-11-02] MEDS ORDERED: PHYTONADIONE 10 MG in SODIUM CHLORIDE 0.9% 50 ML IVPB STA (00:47)
[2017-11-02] MEDS ORDERED: SODIUM CHLORIDE 0.9% 1,000 ML IV ONE (00:48)
[2017-11-02] MEDS ORDERED: SODIUM CHLORIDE 0.9% 1,000 ML IV SCH (01:00)
[2017-11-02] MEDS ORDERED: ONDANSETRON 4 MG/2 ML VIAL IVP PRN (01:22)
[2017-11-02] MEDS ORDERED: NALOXONE 0.4 MG/ML 1 ML VIAL IV PRN (01:22)
[2017-11-02] MEDS ORDERED: ALBUTEROL NEBULIZED 2.5 MG/3 ML INHALATION STA (02:00)
[2017-11-02 02:12] LABS: Appearance,Urine Clear (Clear); Bilirubin,Urine Negative (Negative); Blood,Urine Trace (Negative); Color,Urine Light Yellow; Glucose,Urine (UA) Negative (Negative); Ketones,Urine Negative (Negative); Leukocyte Esterase,Urine Moderate (Negative); Mucus,Urine Rare /hpf; Nitrite,Urine Negative (Negative); Protein,Urine Negative (Negative); RBC,Urine 8 /hpf (0-5); Specific Gravity,Urine 1.027 (1.001-1.035); Squamous Epithelial Cell,Urine 1 /hpf (0-4); Urobilinogen,Urine <2.0 mg/dL (<2.0); WBC,Urine 7 /hpf (0-5)
[2017-11-02 02:17] LABS: Cocaine Screen,Urine Not Detected (NotDetected); Opiate Screen,Urine Detected (NotDetected); Phencyclidine Screen,Urine Not Detected (NotDetected); Urn Cannabinoid Scrn Not Detected (NotDetected)
[2017-11-02 02:18] LABS: Amphetamine Screen,Urine Not Detected (NotDetected); Barbiturate Screen,Urine Not Detected (NotDetected); Benzodiazepines Screen,Urine Not Detected (NotDetected); Methadone Screen, Urine Not Detected (NotDetected); Oxycodone Screen, Urine Not Detected (NotDetected); Tricyclic Antidepressant,Urine Detected (NotDetected)
[2017-11-02 02:37] LABS: Glucose,Whole Blood 120 mg/dL (75-99)
--- NOTE | 2017-11-02 02:47 | P.HPIM ---
History of Present Illness H&P Date: 11/02/17 Chief Complaint: abd pain 32-year-old female with past medical history of Marfan syndrome, mechanical heart valve on Coumadin, depression. Patient presented due to lower abdominal pain of 2 days' duration she reports lower abdominal pain not radiating no relieving factors however she try Tylenol and ibuprofen without any relief, she felt her belly is protruding. She reports that pain is dull achy in nature at 10 out of 10 in severity. Denies any changes in her bowel habits her last bowel movement was yesterday denies any GI bleeding or melena denies any nausea or vomiting denies any fevers or chills denies any similar chronic pain in the past. In the emergency department part of the workup showed elevated INR, computed tomography scan of the abdomen suggested a new vascular lesion in the spleen or hemangioma. Patient was admitted for further care and evaluation Review of Systems Constitutional: Patient denies fever, denies chills, denies night sweating, denies significant weight changes Eyes: Patient denies visual changes, denies eye pain ENT: Patient denies ear pain, denies rhinorrhea, denies sore throat Cardiovascular: Patient denies chest pain, denies exertional dyspnea, denies peripheral leg edema, denies orthopnea, denies paroxysmal nocturnal dyspnea Respiratory:Patient denies cough, denies wheezing, denies shortness of breath Gastrointestinal: Patient denies diarrhea, denies constipation, denies nausea , denies vomiting Genitourinary: Patient denies dysuria, denies hematuria, denies changes in urinary habits, denies genital lesions Musculoskeletal: Patient denies muscle pain, reports chronic generalized joint pain Psychiatric: Patient reports depressed mood, denies suicidal ideation, denies anxiety Endocrine: Patient denies heat intolerance, denies cold intolerance, denies excessive thirst, denies polyuria Neurological: Patient denies focal neurologic deficits, denies weakness, denies numbness, denies tingling Hem/Lymphatic: Patient denies bleeding tendency, denies bruising, denies swollen lymph glands Allergic/Immun: Patient denies recent allergic reactions Skin: Patient denies rashes, denies pruritis, denies ulcers Past Medical History Past Medical History: Heart Failure, CVA/TIA, Neurologic Disorder, Osteoarthritis (OA), Pneumonia Additional Past Medical History / Comment(s): Stroke with residual right-sided weakness 2016, marfan's syndrome, ArnoldChiari malformation, spontaneous pneumothorax x 21, scoliosis and pectus excavatum secondary to Marfan's, chronic back pain, bilateral leg pain, sinus infections, STATED HAS POOR CIRCULATION, viral meningitis, HEP C. History of Any Multi-Drug Resistant Organisms: None Reported, MRSA Date of last positivie culture/infection: 05/05/2010 MDRO Source:: back per patient Past Surgical History: Cardiac Valve Replacement, Coronary Bypass/CABG, Joint Replacement Additional Past Surgical History / Comment(s): 10-27-16 I&D RT FOREARM ABCESS, left upper lobectomy age 16, left hip fracture-ORIF, right foot corrective surgery, R shoulder surgery following injury, CABG x4 vessel, aortic root graft , aortic valve replaced as child (2 separate surgeries last 10 years old), tiffani lens removed. Past Anesthesia/Blood Transfusion Reactions: No Reported Reaction Past Psychological History: Anxiety Smoking Status: Former smoker Past Alcohol Use History: None Reported Past Drug Use History: None Reported - Past Family History Father Additional Family Medical History / Comment(s): Father is with history of AIDS. Mother Family Medical History: Diabetes Mellitus Additional Family Medical History / Comment(s): Mother at age 49 from liver cirrhosis secondary to alcohol abuse. Brother(s) Additional Family Medical History / Comment(s): Patient has one brother with no major medical problems. Patient does not have any sisters. Patient does not have any children. Medications and Allergies Home Medications Medication Instructions Recorded Confirmed Type Baclofen [Lioresal] 10 mg PO QID #60 tab 07/31/17 11/01/17 Rx Gabapentin [Neurontin] 400 mg PO TID #90 cap 10/02/17 11/01/17 Rx Ibuprofen [Motrin] 600 mg PO Q6HR PRN #20 tab 10/16/17 11/01/17 Rx Warfarin [Coumadin] 7.5 mg PO DAILY@0800 10/16/17 11/01/17 History Albuterol Inhaler [Ventolin Hfa 2 puff INHALATION RT-Q8H PRN 11/01/17 11/01/17 History Inhaler] Cholecalciferol [Vitamin D3] 5,000 unit PO DAILY@0800 11/01/17 11/01/17 History DULoxetine HCL [Cymbalta] 60 mg PO DAILY@0800 11/01/17 11/01/17 History Ferrous Sulfate [Feosol] 325 mg PO HS@209911/01/17 11/01/17 History Imipramine [Tofranil] 50 mg PO HS@209911/01/17 11/01/17 History OLANZapine [ZyPREXA] 15 mg PO HS@209911/01/17 11/01/17 History Sulfamethox-Tmp 800-160Mg [Bactrim 1 tab PO Q12HR 11/01/17 11/01/17 History DS 800-160 mg] Allergies Allergy/AdvReac Type Severity Reaction Status Date / Time chlordiazepoxide HCl Allergy Unknown Verified 11/01/17 22:17 [From Librium] Penicillins Allergy Rash/Hives Verified 11/01/17 22:17 prochlorperazine edisylate Allergy PANIC Verified 11/01/17 22:17 [From Compazine] ATTACK prochlorperazine maleate Allergy PANIC Verified 11/01/17 22:17 [From Compazine] ATTACK Physical Exam Vitals: Vital Signs Temp Pulse Resp BP Pulse Ox 11/02/17 02:07 104 H 18 11/02/17 02:02 103 H 18 11/01/17 21:40 97.4 F L 70 20 108/52 99 Intake and Output 11/01/17 11/01/17 11/02/17 14:59 22:59 06:59 Other: Weight 55.338 kg Patient Weight 11/02/17 06:59 Weight 55.338 kg Constitutional: Patient seems to be in some pain at this point, talking short sentences not making eye contact Eyes: Anicteric sclerae, moist conjunctiva, no lid-lag Pupils equal round reactive to light Patient has somatic marfanoid features ENMT: NC/AT Oropharynx clear, no erythema, exudates Neck: Supple, FROM, no masses, or JVD No carotid bruits No thyromegaly Lungs: Clear to auscultation Clear to percussion Normal respiratory effort, no accessory muscle use Cardiovascular: Heart regular in rate and rhythm, Systolic murmurs, mechanical heart valve clicks,no gallops, or rubs No peripheral edema Abdominal: Soft, umbilical hernia reducible, tenderness and discomfort with deep palpation over the right flank and right lower quadrant area bowel sounds are positive, no guarding, rebound or rigidity Abdomen moving with respiration Normoactive bowel sounds No hepatomegaly, No splenomegaly No palpable mass Skin: Normal temperature, tone, texture, turgor No induration No subcutaneous nodules No rash, lesions No ulcers Extremities: No digital cyanosis Slight clubbing of the fingers Pedal pulses intact and symmetrical Radial pulses intact and symmetrical No calf tenderness Psychiatric: Alert and oriented to person, place and time Depressed affect fair judgment Neuro Muscles Strength 4/5 in all 4 extremities Sensation to light touch grossly present throughout Cranial nerves II-XII grossly intact No focal sensory deficits Lymphatics: no palpable cervical or supraclavicular , or inguinal lymph nodes Results CBC & Chem 7: 11/01/17 23:10 11/01/17 23:10 Labs: Abnormal Lab Results - Last 24 Hours (Table) 11/01/17 11/01/17 11/02/17 Range/Units 23:10 23:10 00:01 RBC 3.64 L (3.80-5.40) m/uL Hgb 7.7 L (11.4-16.0) gm/dL Hct 26.3 L (34.0-46.0) % MCV 72.2 L (80.0-100.0) fL MCH 21.1 L (25.0-35.0) pg MCHC 29.2 L (31.0-37.0) g/dL RDW 18.3 H (11.5-15.5) % PT 85.3 H (9.0-12.0) sec INR 9.1 H* (<1.2) APTT 64.7 H (22.0-30.0) sec AST 43 H (14-36) U/L Alkaline Phosphatase 131 H (38-126) U/L Total Protein 8.5 H (6.3-8.2) g/dL Urine Blood (Negative) Ur Leukocyte Esterase (Negative) Urine RBC (0-5) /hpf Urine WBC (0-5) /hpf Urine Mucus (None) /hpf Urine Opiates Screen (NotDetected) U Tricyclic Antidepress (NotDetected) 11/02/17 11/02/17 Range/Units 01:46 01:52 RBC (3.80-5.40) m/uL Hgb (11.4-16.0) gm/dL Hct (34.0-46.0) % MCV (80.0-100.0) fL MCH (25.0-35.0) pg MCHC (31.0-37.0) g/dL RDW (11.5-15.5) % PT (9.0-12.0) sec INR (<1.2) APTT (22.0-30.0) sec AST (14-36) U/L Alkaline Phosphatase (38-126) U/L Total Protein (6.3-8.2) g/dL Urine Blood Trace H (Negative) Ur Leukocyte Esterase Moderate H (Negative) Urine RBC 8 H (0-5) /hpf Urine WBC 7 H (0-5) /hpf Urine Mucus Rare H (None) /hpf Urine Opiates Screen Detected H (NotDetected) U Tricyclic Antidepress Detected H (NotDetected) Assessment and Plan (1) Abdominal pain Narrative/Plan: This is most likely secondary to constipation Bowel regimens She scan of the abdomen suggested incidental finding of splenic vascular structure or hemangioma Surgery this consult Current Visit: Yes Status: Acute Code(s): R10.9 - UNSPECIFIED ABDOMINAL PAIN SNOMED Code(s): 13727347 (2) Hemangioma of spleen Narrative/Plan: This is an incidental finding on CAT scan of the abdomen suggested a new vascular lesion in the spleen C meningioma Surgeries consult to await further recommendations Current Visit: Yes Status: Acute Code(s): D18.03 - HEMANGIOMA OF INTRA- ABDOMINAL STRUCTURES SNOMED Code(s): 47010725 (3) Supratherapeutic INR Narrative/Plan: Coumadin currently on hold No evidence of active bleeding, no indications for reversal of INR at this point spatially with underlying mechanical heart valve Continue to monitor hemoglobin and INR Resume Coumadin when therapeutic range of INR Current Visit: Yes Status: Acute Code(s): R79.1 - ABNORMAL COAGULATION PROFILE SNOMED Code(s): 106869904 (4) Anemia Narrative/Plan: Patient denies any GI bleeding Continue to monitor hemoglobin level transfuse as needed for hemoglobin less than 7 Check FOBT Current Visit: Yes Status: Acute Code(s): D64.9 - ANEMIA, UNSPECIFIED SNOMED Code(s): 295930990 (5) Mechanical heart valve present Narrative/Plan: Currently with supratherapeutic INR Coumadin on hold until INR within therapeutic range Current Visit: No Status: Acute Code(s): Z95.2 - PRESENCE OF PROSTHETIC HEART VALVE SNOMED Code(s): 74571856105142 (6) DVT prophylaxis Narrative/Plan: Currently patient has elevated INR Resume Coumadin once INR therapeutic range Current Visit: Yes Status: Acute Code(s): XZW3539 - SNOMED Code(s): 043188859 Plan: Tobacco smoking abuse patient counseled to quit smoking to therapy offered Preformed a thorough record review from recent hospitalization , patient is well known to our service, with frequent hospitalizations CODE STATUS:full code Discussed with: Patient, ER Anticipated discharge: 48-[address]: home A total of 50 minutes were spent on the care of this complex patient more than 50% of the time was spent in counseling and care coordination.
[2017-11-02] MEDS ORDERED: FUROSEMIDE 10 MG/ML 4 ML VIAL IV STA (03:09)
[2017-11-02 04:35] LABS: Anisocytosis Slight; HCT 28.4 % (34.0-46.0); HGB 8.4 gm/dL (11.4-16.0); Hypochromasia Marked; MCHC 29.7 g/dL (31.0-37.0); MCV 74.2 fL (80.0-100.0); Mean Platelet Volume 6.4; Microcytosis Moderate; Platelet Count 399 k/uL (150-450); Poikilocytosis Slight; RBC 3.83 m/uL (3.80-5.40); RDW 18.1 % (11.5-15.5); WBC 9.3 k/uL (3.8-10.6)
[2017-11-02 04:46] LABS: Prothrombin Time 91.2 sec (9.0-12.0)
[2017-11-02 04:51] LABS: INR 9.7 (<1.2)
[2017-11-02] MEDS: BACLOFEN 10 MG TAB PO SCH ×4 (09:00→23:57)
[2017-11-02] MEDS ORDERED: SULFAMETHOX-TMP 800-160MG 1 EACH TAB PO SCH (09:00)
[2017-11-02] MEDS: DULoxetine HCL 60 MG CAPSULE.DR PO SCH (09:01)
[2017-11-02] MEDS: CHOLECALCIFEROL 1,000 UNIT TAB PO SCH (09:01)
[2017-11-02] MEDS: GABAPENTIN 400 MG CAP PO SCH ×3 (09:01→23:22)
[2017-11-02] MEDS ORDERED: PHYTONADIONE ORAL 5 MG/5 ML ORAL.SYRG PO STA ×3 (09:07→14:36)
[2017-11-02] MEDS ORDERED: ACETAMINOPHEN TAB 325 MG TAB PO PRN (09:14)
[2017-11-02] MEDS ORDERED: VANCOMYCIN IV PER PHARMACY 1 EACH MISC MISCELLANE PRN (09:14)
--- NOTE | 2017-11-02 10:00 | XR ---
EXAMINATION TYPE: XR abdomen acute w cxr DATE OF EXAM: 11/02/2017 CLINICAL HISTORY: Abdominal pain and distention. Shortness of breath. TECHNIQUE: Single frontal view of chest is obtained. Supine and upright views of the abdomen are acq uired. COMPARISON: Chest x-ray October 10, 2017. CT abdomen and pelvis from yesterday. FINDINGS: Osseous structures remain demineralized. Underlying S-shaped scoliosis is redemonstrated. M etallic hardware right proximal humerus through healed fracture is again seen. Sternal wires are rede monstrated. Cardiomegaly is again seen. There is chronic parenchymal change with bibasilar scarring and/or atelectasis and new right lateral lower lung opacity. No pleural effusion or pneumothorax is s een bilaterally. There is some paucity of small bowel gas redemonstrated. Gas and fecal material is seen in nondisten ded colon. Amount of fecal material remains prominent in the right pelvis. There is partial visualiza tion of fixation hardware left proximal femur. No pneumoperitoneum is present. IMPRESSION: 1. Cardiomegaly and chronic changes with possible developing right lateral lower lung infiltrate. Con medical record technician progress two-view chest x-ray. 2. Overall nonspecific but likely nonobstructive bowel gas pattern. Moderate proximal colonic fecal s tasis. No significant change from CT one day earlier.
[2017-11-02] MEDS: VANCOMYCIN 1,000 MG in SODIUM CHLORIDE 0.9% 250 ML IVPB SCH ×2 (10:05→16:32)
[2017-11-02 10:18] LABS: ALT 20 U/L (9-52); AST 33 U/L (14-36); Albumin 3.7 g/dL (3.5-5.0); Alkaline Phosphatase 145 U/L (38-126); Anion Gap 11 mmol/L; Blood Urea Nitrogen 12 mg/dL (7-17); Calcium 8.4 mg/dL (8.4-10.2); Carbon Dioxide 26 mmol/L (22-30); Chloride 107 mmol/L (98-107); Glucose 79 mg/dL (74-99); Potassium 4.5 mmol/L (3.5-5.1); Sodium 144 mmol/L (137-145); Total Bilirubin 0.5 mg/dL (0.2-1.3); Total Protein 8.4 g/dL (6.3-8.2)
[2017-11-02] MEDS ORDERED: LACTULOSE 20 GM/30 ML CUP PO ONE (12:00)
--- NOTE | 2017-11-02 12:31 | P.GSCN ---
<Mable Aguilera - Last Filed: 11/02/17 12:36> History of Present Illness Consult date: 11/02/17 Reason for Consult: Vascular mass within the spine History of present illness: 32-year-old female being seen for a surgical consultation after a CAT scan abdomen and pelvis obtained in the emergency room showing a vascular mass within the spleen new compared to prior imaging also noted with an elevated INR 9.1 received 2 doses of vitamin K gives a history of developing constant abdominal pain with increased distention onset 3-4 days. Patient reports that it felt like her abdomen was getting larger and more protruding than it normally is. Denied any nausea vomiting. Patient stated the pain was constant. points to the umbilicus areas to the reference point states pain starts there and spreads across the abdomen. Reportedly tried to take over -the-counter Tylenol with Motrin with no relief. Patient gives no history of any prior GI bleed. Denies any blood in stool denies any fever chills nausea or vomiting. 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 Has had several psychiatric admissions June and August 2017 for depression Review of Systems Essentially unremarkable except as mentioned in the present illness Past Medical History Past Medical History: Heart Failure, CVA/TIA, Neurologic Disorder, Osteoarthritis (OA), Pneumonia Additional Past Medical History / Comment(s): Stroke with residual right-sided weakness 2017, marfan's syndrome, ArnoldChiari malformation, spontaneous pneumothorax x 21, scoliosis and pectus excavatum secondary to Marfan's, chronic back pain, bilateral leg pain, sinus infections, STATED HAS POOR CIRCULATION, viral meningitis, HEP C. History of Any Multi-Drug Resistant Organisms: None Reported, MRSA Year Discovered:: 05/05/2010 MDRO Source:: back per patient Past Surgical History: Cardiac Valve Replacement, Coronary Bypass/CABG, Joint Replacement Additional Past Surgical History / Comment(s): 10-27-16 I&D RT FOREARM ABCESS, left upper lobectomy age 16, left hip fracture-ORIF, right foot corrective surgery, R shoulder surgery following injury, CABG x4 vessel, aortic root graft , aortic valve replaced as child (2 separate surgeries last 10 years old), tiffani lens removed. Past Anesthesia/Blood Transfusion Reactions: No Reported Reaction Past Psychological History: Anxiety Smoking Status: Former smoker Past Alcohol Use History: None Reported Past Drug Use History: None Reported - Past Family History Father Additional Family Medical History / Comment(s): Father is with history of AIDS. Mother Family Medical History: Diabetes Mellitus Additional Family Medical History / Comment(s): Mother at age 49 from liver cirrhosis secondary to alcohol abuse. Brother(s) Additional Family Medical History / Comment(s): Patient has one brother with no major medical problems. Patient does not have any sisters. Patient does not have any children. Medications and Allergies Home Medications Medication Instructions Recorded Confirmed Type Baclofen [Lioresal] 10 mg PO QID #60 tab 07/31/17 11/01/17 Rx Gabapentin [Neurontin] 400 mg PO TID #90 cap 10/02/17 11/01/17 Rx Ibuprofen [Motrin] 600 mg PO Q6HR PRN #20 tab 10/16/17 11/01/17 Rx Warfarin [Coumadin] 7.5 mg PO DAILY@79910/16/17 11/01/17 History Albuterol Inhaler [Ventolin Hfa 2 puff INHALATION RT-Q8H PRN 11/01/17 11/01/17 History Inhaler] Cholecalciferol [Vitamin D3] 5,000 unit PO DAILY@79911/01/17 11/01/17 History DULoxetine HCL [Cymbalta] 60 mg PO DAILY@79911/01/17 11/01/17 History Ferrous Sulfate [Feosol] 325 mg PO HS@209911/01/17 11/01/17 History Imipramine [Tofranil] 50 mg PO HS@209911/01/17 11/01/17 History OLANZapine [ZyPREXA] 15 mg PO HS@209911/01/17 11/01/17 History Sulfamethox-Tmp 800-160Mg [Bactrim 1 tab PO Q12HR 11/01/17 11/01/17 History DS 800-160 mg] Allergies Allergy/AdvReac Type Severity Reaction Status Date / Time chlordiazepoxide HCl Allergy Unknown Verified 11/01/17 22:17 [From Librium] Penicillins Allergy Rash/Hives Verified 11/01/17 22:17 prochlorperazine edisylate Allergy PANIC Verified 11/01/17 22:17 [From Compazine] ATTACK prochlorperazine maleate Allergy PANIC Verified 11/01/17 22:17 [From Compazine] ATTACK Surgical - Exam Vital Signs Temp Pulse Resp BP Pulse Ox 97.4 F L 70 20 108/52 99 11/01/17 21:40 11/01/17 21:40 11/01/17 21:40 11/01/17 21:40 11/01/17 21:40 GENERAL APPEARANCE: Thin 32-year-old female patient arousable to verbal stimuli oriented 3 in no acute distress. Flat affect VITAL SIGNS: Reviewed HEENT: Head is normocephalic and atraumatic. Pupils are equal and reactive. The nares are patent. Oropharynx is clear without lesions. NECK: Supple without lymphadenopathy. Traches midline. HEART: S1, S2. Regular rate and rhythm. Positive crisp click noted LUNGS: No crackles or wheezes are heard. 97% 4 L ABDOMEN: Soft, slight tenderness with deep palpitation right flank right lower quadrant. A palpable umbilical hernia. nondistended with good bowel sounds. No peritoneal signs. No palpable organomegaly or masses. No facial grimacing with palpitation to the abdominal wall bowel tones present no stool no reports of nausea vomiting EXTREMITIES: Normal skin color and turgor. No cyanosis, rash, ulceration, clubbing or edema. Radial pedal pulses are 2/4 bilaterally. NEUROLOGICAL: No focal deficits. Results - Labs 11/02/17 04:15 11/02/17 09:25 Abnormal Lab Results - Last 24 Hours (Table) 11/01/17 11/01/17 11/02/17 Range/Units 23:10 23:10 00:01 RBC 3.64 L (3.80-5.40) m/uL Hgb 7.7 L (11.4-16.0) gm/dL Hct 26.3 L (34.0-46.0) % MCV 72.2 L (80.0-100.0) fL MCH 21.1 L (25.0-35.0) pg MCHC 29.2 L (31.0-37.0) g/dL RDW 18.3 H (11.5-15.5) % PT 85.3 H (9.0-12.0) sec INR 9.1 H* (<1.2) APTT 64.7 H (22.0-30.0) sec POC Glucose (mg/dL) (75-99) mg/dL AST 43 H (14-36) U/L Alkaline Phosphatase 131 H (38-126) U/L Total Protein 8.5 H (6.3-8.2) g/dL Urine Blood (Negative) Ur Leukocyte Esterase (Negative) Urine RBC (0-5) /hpf Urine WBC (0-5) /hpf Urine Mucus (None) /hpf Urine Opiates Screen (NotDetected) U Tricyclic Antidepress (NotDetected) 11/02/17 11/02/17 11/02/17 Range/Units 01:46 01:52 02:35 RBC (3.80-5.40) m/uL Hgb (11.4-16.0) gm/dL Hct (34.0-46.0) % MCV (80.0-100.0) fL MCH (25.0-35.0) pg MCHC (31.0-37.0) g/dL RDW (11.5-15.5) % PT (9.0-12.0) sec INR (<1.2) APTT (22.0-30.0) sec POC Glucose (mg/dL) 120 H (75-99) mg/dL AST (14-36) U/L Alkaline Phosphatase (38-126) U/L Total Protein (6.3-8.2) g/dL Urine Blood Trace H (Negative) Ur Leukocyte Esterase Moderate H (Negative) Urine RBC 8 H (0-5) /hpf Urine WBC 7 H (0-5) /hpf Urine Mucus Rare H (None) /hpf Urine Opiates Screen Detected H (NotDetected) U Tricyclic Antidepress Detected H (NotDetected) 11/02/17 11/02/17 11/02/17 Range/Units 04:15 04:15 09:25 RBC (3.80-5.40) m/uL Hgb 8.4 L (11.4-16.0) gm/dL Hct 28.4 L (34.0-46.0) % MCV 74.2 L (80.0-100.0) fL MCH 22.0 L (25.0-35.0) pg MCHC 29.7 L (31.0-37.0) g/dL RDW 18.1 H (11.5-15.5) % PT 91.2 H (9.0-12.0) sec INR 9.7 H* (<1.2) APTT (22.0-30.0) sec POC Glucose (mg/dL) (75-99) mg/dL AST (14-36) U/L Alkaline Phosphatase 145 H (38-126) U/L Total Protein 8.4 H (6.3-8.2) g/dL Urine Blood (Negative) Ur Leukocyte Esterase (Negative) Urine RBC (0-5) /hpf Urine WBC (0-5) /hpf Urine Mucus (None) /hpf Urine Opiates Screen (NotDetected) U Tricyclic Antidepress (NotDetected) Diabetes panel 11/01/17 11/02/17 Range/Units 23:10 09:25 Sodium 141 144 (137-145) mmol/L Potassium 4.0 4.5 (3.5-5.1) mmol/L Chloride 106 107 (98-107) mmol/L Carbon Dioxide 26 26 (22-30) mmol/L BUN 16 12 (7-17) mg/dL Creatinine 0.60 0.59 (0.52-1.04) mg/dL Glucose 97 79 (74-99) mg/dL Calcium 8.7 8.4 (8.4-10.2) mg/dL AST 43 H 33 (14-36) U/L ALT 22 20 (9-52) U/L Alkaline Phosphatase 131 H 145 H (38-126) U/L Total Protein 8.5 H 8.4 H (6.3-8.2) g/dL Albumin 3.7 3.7 (3.5-5.0) g/dL Calcium panel 11/01/17 11/02/17 Range/Units 23:10 09:25 Calcium 8.7 8.4 (8.4-10.2) mg/dL Albumin 3.7 3.7 (3.5-5.0) g/dL Pituitary panel 11/01/17 11/02/17 Range/Units 23:10 09:25 Sodium 141 144 (137-145) mmol/L Potassium 4.0 4.5 (3.5-5.1) mmol/L Chloride 106 107 (98-107) mmol/L Carbon Dioxide 26 26 (22-30) mmol/L BUN 16 12 (7-17) mg/dL Creatinine 0.60 0.59 (0.52-1.04) mg/dL Glucose 97 79 (74-99) mg/dL Calcium 8.7 8.4 (8.4-10.2) mg/dL Adrenal panel 11/01/17 11/02/17 Range/Units 23:10 09:25 Sodium 141 144 (137-145) mmol/L Potassium 4.0 4.5 (3.5-5.1) mmol/L Chloride 106 107 (98-107) mmol/L Carbon Dioxide 26 26 (22-30) mmol/L BUN 16 12 (7-17) mg/dL Creatinine 0.60 0.59 (0.52-1.04) mg/dL Glucose 97 79 (74-99) mg/dL Calcium 8.7 8.4 (8.4-10.2) mg/dL Total Bilirubin 0.3 0.5 (0.2-1.3) mg/dL AST 43 H 33 (14-36) U/L ALT 22 20 (9-52) U/L Alkaline Phosphatase 131 H 145 H (38-126) U/L Total Protein 8.5 H 8.4 H (6.3-8.2) g/dL Albumin 3.7 3.7 (3.5-5.0) g/dL Assessment and Plan Assessment: Impression Present on admission abdominal pain likely due to constipation Incidental finding CAT scan abdomen pelvis new vascular lesion measuring 5 cm within the spleen new compared to prior imaging Chronic constipation Present on admission elevated INR 9.4 History of mechanical aortic valve on anticoagulation Coumadin Anemia of chronic illness hemoglobin stable Plan Further surgical recommendations after Dr. Centeno reviews the computed tomography scan of the abdomen pelvis Keep nothing by mouth until further sx recommendations are obtained DVT and GI prophylaxis We'll follow with you Coumadin on hold Surgical consultation dictated for Dr. Centeno The above impression and plan of care have been discussed and directed by signing physician. Mable Aguilera nurse practitioner acting as scribe for signing physician. <Kumar Centeno - Last Filed: 11/02/17 17:45> Surgical - Exam Vital Signs Temp Pulse Resp BP Pulse Ox 97.4 F L 70 20 108/52 99 11/01/17 21:40 11/01/17 21:40 11/01/17 21:40 11/01/17 21:40 11/01/17 21:40 Results - Labs 11/02/17 13:40 11/02/17 09:25 Abnormal Lab Results - Last 24 Hours (Table) 11/01/17 11/01/17 11/02/17 Range/Units 23:10 23:10 00:01 RBC 3.64 L (3.80-5.40) m/uL Hgb 7.7 L (11.4-16.0) gm/dL Hct 26.3 L (34.0-46.0) % MCV 72.2 L (80.0-100.0) fL MCH 21.1 L (25.0-35.0) pg MCHC 29.2 L (31.0-37.0) g/dL RDW 18.3 H (11.5-15.5) % PT 85.3 H (9.0-12.0) sec INR 9.1 H* (<1.2) APTT 64.7 H (22.0-30.0) sec POC Glucose (mg/dL) (75-99) mg/dL AST 43 H (14-36) U/L Alkaline Phosphatase 131 H (38-126) U/L Total Protein 8.5 H (6.3-8.2) g/dL Urine Blood (Negative) Ur Leukocyte Esterase (Negative) Urine RBC (0-5) /hpf Urine WBC (0-5) /hpf Urine Mucus (None) /hpf Urine Opiates Screen (NotDetected) U Tricyclic Antidepress (NotDetected) 11/02/17 11/02/17 11/02/17 Range/Units 01:46 01:52 02:35 RBC (3.80-5.40) m/uL Hgb (11.4-16.0) gm/dL Hct (34.0-46.0) % MCV (80.0-100.0) fL MCH (25.0-35.0) pg MCHC (31.0-37.0) g/dL RDW (11.5-15.5) % PT (9.0-12.0) sec INR (<1.2) APTT (22.0-30.0) sec POC Glucose (mg/dL) 120 H (75-99) mg/dL AST (14-36) U/L Alkaline Phosphatase (38-126) U/L Total Protein (6.3-8.2) g/dL Urine Blood Trace H (Negative) Ur Leukocyte Esterase Moderate H (Negative) Urine RBC 8 H (0-5) /hpf Urine WBC 7 H (0-5) /hpf Urine Mucus Rare H (None) /hpf Urine Opiates Screen Detected H (NotDetected) U Tricyclic Antidepress Detected H (NotDetected) 11/02/17 11/02/17 11/02/17 Range/Units 04:15 04:15 09:25 RBC (3.80-5.40) m/uL Hgb 8.4 L (11.4-16.0) gm/dL Hct 28.4 L (34.0-46.0) % MCV 74.2 L (80.0-100.0) fL MCH 22.0 L (25.0-35.0) pg MCHC 29.7 L (31.0-37.0) g/dL RDW 18.1 H (11.5-15.5) % PT 91.2 H (9.0-12.0) sec INR 9.7 H* (<1.2) APTT (22.0-30.0) sec POC Glucose (mg/dL) (75-99) mg/dL AST (14-36) U/L Alkaline Phosphatase 145 H (38-126) U/L Total Protein 8.4 H (6.3-8.2) g/dL Urine Blood (Negative) Ur Leukocyte Esterase (Negative) Urine RBC (0-5) /hpf Urine WBC (0-5) /hpf Urine Mucus (None) /hpf Urine Opiates Screen (NotDetected) U Tricyclic Antidepress (NotDetected) 11/02/17 11/02/17 Range/Units 13:40 13:40 RBC (3.80-5.40) m/uL Hgb 8.0 L (11.4-16.0) gm/dL Hct 28.2 L (34.0-46.0) % MCV 73.7 L (80.0-100.0) fL MCH 21.1 L (25.0-35.0) pg MCHC 28.6 L (31.0-37.0) g/dL RDW 18.4 H (11.5-15.5) % PT 67.6 H (9.0-12.0) sec INR 7.3 H* (<1.2) APTT (22.0-30.0) sec POC Glucose (mg/dL) (75-99) mg/dL AST (14-36) U/L Alkaline Phosphatase (38-126) U/L Total Protein (6.3-8.2) g/dL Urine Blood (Negative) Ur Leukocyte Esterase (Negative) Urine RBC (0-5) /hpf Urine WBC (0-5) /hpf Urine Mucus (None) /hpf Urine Opiates Screen (NotDetected) U Tricyclic Antidepress (NotDetected) Diabetes panel 11/01/17 11/02/17 Range/Units 23:10 09:25 Sodium 141 144 (137-145) mmol/L Potassium 4.0 4.5 (3.5-5.1) mmol/L Chloride 106 107 (98-107) mmol/L Carbon Dioxide 26 26 (22-30) mmol/L BUN 16 12 (7-17) mg/dL Creatinine 0.60 0.59 (0.52-1.04) mg/dL Glucose 97 79 (74-99) mg/dL Calcium 8.7 8.4 (8.4-10.2) mg/dL AST 43 H 33 (14-36) U/L ALT 22 20 (9-52) U/L Alkaline Phosphatase 131 H 145 H (38-126) U/L Total Protein 8.5 H 8.4 H (6.3-8.2) g/dL Albumin 3.7 3.7 (3.5-5.0) g/dL Calcium panel 11/01/17 11/02/17 Range/Units 23:10 09:25 Calcium 8.7 8.4 (8.4-10.2) mg/dL Albumin 3.7 3.7 (3.5-5.0) g/dL Pituitary panel 11/01/17 11/02/17 Range/Units 23:10 09:25 Sodium 141 144 (137-145) mmol/L Potassium 4.0 4.5 (3.5-5.1) mmol/L Chloride 106 107 (98-107) mmol/L Carbon Dioxide 26 26 (22-30) mmol/L BUN 16 12 (7-17) mg/dL Creatinine 0.60 0.59 (0.52-1.04) mg/dL Glucose 97 79 (74-99) mg/dL Calcium 8.7 8.4 (8.4-10.2) mg/dL Adrenal panel 11/01/17 11/02/17 Range/Units 23:10 09:25 Sodium 141 144 (137-145) mmol/L Potassium 4.0 4.5 (3.5-5.1) mmol/L Chloride 106 107 (98-107) mmol/L Carbon Dioxide 26 26 (22-30) mmol/L BUN 16 12 (7-17) mg/dL Creatinine 0.60 0.59 (0.52-1.04) mg/dL Glucose 97 79 (74-99) mg/dL Calcium 8.7 8.4 (8.4-10.2) mg/dL Total Bilirubin 0.3 0.5 (0.2-1.3) mg/dL AST 43 H 33 (14-36) U/L ALT 22 20 (9-52) U/L Alkaline Phosphatase 131 H 145 H (38-126) U/L Total Protein 8.5 H 8.4 H (6.3-8.2) g/dL Albumin 3.7 3.7 (3.5-5.0) g/dL Assessment and Plan Assessment: As above. Patient presents with complaints of abdominal bloating followed by abdominal discomfort. Pain is more left-sided although denies radiation to the shoulder or back. She points to the left mid and lower quadrants. Some nausea but no vomiting. Patient states her pain is improved today. Currently she is quite hungry. The patient's CAT scan was reviewed with Dr. Feliz earlier today. Most likely etiology of the abnormality seen in the spleen is a intraparenchymal bleed as the result of previous infarct. The patient's splenic artery appears to have thrombosed and most of the arterial supply to the spleen is in the form of small collaterals. Unfortunately the patient requires anticoagulation because of her previous valve replacement. In this setting splenectomy is likely the best option for her. Patient is at high risk of intraoperative bleeding given the abnormal collaterals and nature of the Marfan's disease effect on the blood vessels themselves. Patient also at significant risk of both pulmonary and cardiac complications. Will discuss with cardiology and intensive care service tomorrow regarding proceeding with splenectomy here locally or possibly tertiary care evaluation. Continue correcting coagulopathy. Follow hemoglobin closely. Clear liquids this evening. Will make nothing by mouth again tomorrow morning. Continue bedrest.
--- NOTE | 2017-11-02 13:39 | P.PN ---
Subjective Progress Note Date: 11/02/17 Principal diagnosis: abdominal pain Patient is a 32-year-old female with a past medical history of Marfan syndrome, multiple aortic valve replacement on Coumadin, chronic pain, and scoliosis who presented to the emergency department with complaints of abdominal pain. In the emergency department she underwent an extensive evaluation. Her initial vital signs are found to be within normal limits. Initial laboratory analysis showed a significant drop in her hemoglobin. Her hemoglobin has chronically been between 9.5-11 for the past 2 months and prior to that was in the normal range. Her INR was found to be greater than 9. 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 There is concern about reversing her INR and she has a mechanical valve. She did not appear to be actively bleeding. After bowel surgery was consulted. She was made nothing by mouth and admitted to the ICU the selective care overflow. Since her last discharge the patient has been assigned a court appointed guardian. She has also been moved into a long-term. It is likely that she had not been taking her Coumadin prior and with moving to the long-term began taking this medication on a regular basis and therefore became supratherapeutic. On the morning after admission patient had significant lethargy despite complaining of pain. She states that she had not slept well the night prior. On repeat CBC her hemoglobin had actually increased from 7.7- 8.4. Patient seen and examined at bedside. She denies any significant or unusual chest, shortness of breath, lower extremity pain, coughing. She complains of back pain and abdominal pain. She states she has been having bowel movements. She states the last time that she used IV drugs was in August 2017. She states that she was taking Bactrim at home but she is unsure why. Objective - Vital Signs Vital signs: Vital Signs Temp 97.3 F L 11/02/17 12:00 Pulse 92 11/02/17 12:00 Resp 14 11/02/17 12:00 BP 109/72 11/02/17 12:00 Pulse Ox 97 11/02/17 12:00 Intake & Output 11/01/17 11/02/17 11/02/17 18:59 06:59 18:59 Intake Total 100 Output Total 850 400 Balance -850 -300 Weight 57.3 kg 57.3 kg Intake: IV 100 Sodium Chloride 0.9% 1, 100 000 ml @ 100 mls/hr IV . Q10H [facility] Rx#:[id number] Output: Urine 850 400 Other: Voiding Method Indwelling Catheter Bedside Commode # Voids 1 - Exam General: Ill appearing, mild distress, appears at stated age Derm: warm, dry, erythema and warmthover right ankle with bogginess Head: atraumatic, normocephalic, symmetric Eyes: EOMI, no lid lag, anicteric sclera Mouth: no lip lesion, mucus membranes moist Cardiovascular: S1S2 reg, no murmur, positive posterior tibial pulse bilateral, Lungs: Decreased breath sounds bilaterally, no rhonchi, no rales , no accessory muscle use Abdominal: Absent bowel sounds, distended soft, tender to palpation diffusely, no guarding, no appreciable organomegaly Ext: + gross muscle atrophy, trace edema RIght ankle, no contractures, levoscoliosis Neuro: CN II-XI grossly intact, no focal neuro deficits Psych: Alert, oriented, lethargic - Labs CBC & Chem 7: 11/02/17 04:15 11/02/17 09:25 Labs: Abnormal Lab Results - Last 24 Hours (Table) 11/01/17 11/01/17 11/02/17 Range/Units 23:10 23:10 00:01 RBC 3.64 L (3.80-5.40) m/uL Hgb 7.7 L (11.4-16.0) gm/dL Hct 26.3 L (34.0-46.0) % MCV 72.2 L (80.0-100.0) fL MCH 21.1 L (25.0-35.0) pg MCHC 29.2 L (31.0-37.0) g/dL RDW 18.3 H (11.5-15.5) % PT 85.3 H (9.0-12.0) sec INR 9.1 H* (<1.2) APTT 64.7 H (22.0-30.0) sec POC Glucose (mg/dL) (75-99) mg/dL AST 43 H (14-36) U/L Alkaline Phosphatase 131 H (38-126) U/L Total Protein 8.5 H (6.3-8.2) g/dL Urine Blood (Negative) Ur Leukocyte Esterase (Negative) Urine RBC (0-5) /hpf Urine WBC (0-5) /hpf Urine Mucus (None) /hpf Urine Opiates Screen (NotDetected) U Tricyclic Antidepress (NotDetected) 11/02/17 11/02/17 11/02/17 Range/Units 01:46 01:52 02:35 RBC (3.80-5.40) m/uL Hgb (11.4-16.0) gm/dL Hct (34.0-46.0) % MCV (80.0-100.0) fL MCH (25.0-35.0) pg MCHC (31.0-37.0) g/dL RDW (11.5-15.5) % PT (9.0-12.0) sec INR (<1.2) APTT (22.0-30.0) sec POC Glucose (mg/dL) 120 H (75-99) mg/dL AST (14-36) U/L Alkaline Phosphatase (38-126) U/L Total Protein (6.3-8.2) g/dL Urine Blood Trace H (Negative) Ur Leukocyte Esterase Moderate H (Negative) Urine RBC 8 H (0-5) /hpf Urine WBC 7 H (0-5) /hpf Urine Mucus Rare H (None) /hpf Urine Opiates Screen Detected H (NotDetected) U Tricyclic Antidepress Detected H (NotDetected) 11/02/17 11/02/17 11/02/17 Range/Units 04:15 04:15 09:25 RBC (3.80-5.40) m/uL Hgb 8.4 L (11.4-16.0) gm/dL Hct 28.4 L (34.0-46.0) % MCV 74.2 L (80.0-100.0) fL MCH 22.0 L (25.0-35.0) pg MCHC 29.7 L (31.0-37.0) g/dL RDW 18.1 H (11.5-15.5) % PT 91.2 H (9.0-12.0) sec INR 9.7 H* (<1.2) APTT (22.0-30.0) sec POC Glucose (mg/dL) (75-99) mg/dL AST (14-36) U/L Alkaline Phosphatase 145 H (38-126) U/L Total Protein 8.4 H (6.3-8.2) g/dL Urine Blood (Negative) Ur Leukocyte Esterase (Negative) Urine RBC (0-5) /hpf Urine WBC (0-5) /hpf Urine Mucus (None) /hpf Urine Opiates Screen (NotDetected) U Tricyclic Antidepress (NotDetected) Assessment and Plan Assessment: Abdominal pain with 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 Centeno this afternoon. On review there is concern that she is having active bleeding into the spleen. Her hemoglobin has increased since yesterday. She does have a significant risk with Coumadin reversal with her history of multiple aortic valve replacement, mechanical. At this point in time we need to make significant efforts to decrease her INR and minimize her risk of bleeding she would be a poor operative candidate with her history of Marfan syndrome and multiple operations. We will attempt to diminish her INR with both FFP and continued vitamin K. She had received oral vitamin K 2.5 mg this morning. Stat CBC and PT/INR ordered, 1 unit of FFP ordered. We'll review results of INR and determine additional need for FFP. We'll cycle INR and CBC every 8 hours. Will transfer patient to ICU admit. Will ask cardiology to follow this patient closely with need for reversal and mechanical aortic valve. Severe constipation -Colace -Lactulose Probable early cellulitis of right lower extremity -Vancomycin -Follow clinically Supratherapeutic INR with mechanical heart valve -Follow PT/INR -Treatment as listed above Anemia -Severe iron deficiency as demonstrated on blood work from 10/11/2017 with a ferritin of 37.2. -Will start on oral iron therapy once more stable and tolerating a diet Compensated congestive heart failure, ejection fraction 55-60% -No indication for beta madelaine or FROYLAN inhibitor -Cardiology recommendations -Follow fluid status closely New nodular infiltrate -Stat acute abdominal series was ordered this morning -Pulmonary consultation Chronic: Osteoarthritis Severe kyphosis and scoliosis Marfan syndrome DVT prophylaxis: INR elevated Discussed with: Patient, nursing, Dr. Centeno Anticipated discharge: Undetermined Anticipated discharge place: Undetermined A total of 45 minutes was spent on the care of this complex patient more than 50 % of the time was spent in counseling and care coordination.
--- NOTE | 2017-11-02 13:54 | P.CNPUL ---
History of Present Illness Consult date: 11/02/17 Reason for consult: other Chief complaint: ICU management History of present illness: Consult dated 11/02/2017 This is a 32-year-old female who was admitted to the emergency department with abdominal pain. She has pain in the area of the left upper quadrant. She apparently also some abdominal distention. She apparently had a computed tomography scan of the abdomen which revealed evidence of some splenic hemorrhage. The radiologist call me to say that the splenic artery had some cystic necrosis and he felt that in combination with the elevated INR, SY she was having some splenic hemorrhage. She ischemic hemodynamically stable. Her INR was initially 9.1 and then 9.7. She does have a previous history of aortic valve replacement us is why she's on Coumadin goes about Marfan's syndrome and aortic valve disease. The patient does have a history of drug abuse as well. She apparently is mostly managed over at [facility]. Medications include warfarin albuterol vitamin D3 Cymbalta iron toe for now on Zyprexa Bactrim Neurontin baclofen and Motrin. ALLERGIES include penicillin Compazine and Librium. The medical history is positive for heart failure CVA DJD pneumonia right-sided weakness Marfan syndrome are no carotid artery malformation spontaneous pneumothorax 21 scoliosis and pectus excavatum. She also has a history of hepatitis C and viral meningitis. She had thoracic surgery when she was 10 years of age. She's had multiple surgeries including left upper lobectomy Left hip fracture for surgery for correction right shoulder surgery aortic root graft aortic valve replacement and bypass grafting 4. Review of Systems A 12 point review of system is only positive for abdominal pain. The abdominal pain seemed to be diffuse but mostly of around the left upper quadrant of the abdomen. Past Medical History Past Medical History: Heart Failure, CVA/TIA, Neurologic Disorder, Osteoarthritis (OA), Pneumonia Additional Past Medical History / Comment(s): Stroke with residual right-sided weakness 2017, marfan's syndrome, ArnoldChiari malformation, spontaneous pneumothorax x 21, scoliosis and pectus excavatum secondary to Marfan's, chronic back pain, bilateral leg pain, sinus infections, STATED HAS POOR CIRCULATION, viral meningitis, HEP C. History of Any Multi-Drug Resistant Organisms: None Reported, MRSA Date of last positivie culture/infection: 05/05/2010 MDRO Source:: back per patient Past Surgical History: Cardiac Valve Replacement, Coronary Bypass/CABG, Joint Replacement Additional Past Surgical History / Comment(s): 10-27-16 I&D RT FOREARM ABCESS, left upper lobectomy age 16, left hip fracture-ORIF, right foot corrective surgery, R shoulder surgery following injury, CABG x4 vessel, aortic root graft , aortic valve replaced as child (2 separate surgeries last 10 years old), tiffani lens removed. Past Anesthesia/Blood Transfusion Reactions: No Reported Reaction Past Psychological History: Anxiety Smoking Status: Former smoker Past Alcohol Use History: None Reported Past Drug Use History: None Reported - Past Family History Father Additional Family Medical History / Comment(s): Father is with history of AIDS. Mother Family Medical History: Diabetes Mellitus Additional Family Medical History / Comment(s): Mother at age 49 from liver cirrhosis secondary to alcohol abuse. Brother(s) Additional Family Medical History / Comment(s): Patient has one brother with no major medical problems. Patient does not have any sisters. Patient does not have any children. Medications and Allergies Home Medications Medication Instructions Recorded Confirmed Type Baclofen [Lioresal] 10 mg PO QID #60 tab 07/31/17 11/01/17 Rx Gabapentin [Neurontin] 400 mg PO TID #90 cap 10/02/17 11/01/17 Rx Ibuprofen [Motrin] 600 mg PO Q6HR PRN #20 tab 10/16/17 11/01/17 Rx Warfarin [Coumadin] 7.5 mg PO DAILY@79910/16/17 11/01/17 History Albuterol Inhaler [Ventolin Hfa 2 puff INHALATION RT-Q8H PRN 11/01/17 11/01/17 History Inhaler] Cholecalciferol [Vitamin D3] 5,000 unit PO DAILY@79911/01/17 11/01/17 History DULoxetine HCL [Cymbalta] 60 mg PO DAILY@79911/01/17 11/01/17 History Ferrous Sulfate [Feosol] 325 mg PO HS@209911/01/17 11/01/17 History Imipramine [Tofranil] 50 mg PO HS@209911/01/17 11/01/17 History OLANZapine [ZyPREXA] 15 mg PO HS@209911/01/17 11/01/17 History Sulfamethox-Tmp 800-160Mg [Bactrim 1 tab PO Q12HR 11/01/17 11/01/17 History DS 800-160 mg] Allergies Allergy/AdvReac Type Severity Reaction Status Date / Time chlordiazepoxide HCl Allergy Unknown Verified 11/01/17 22:17 [From Librium] Penicillins Allergy Rash/Hives Verified 11/01/17 22:17 prochlorperazine edisylate Allergy PANIC Verified 11/01/17 22:17 [From Compazine] ATTACK prochlorperazine maleate Allergy PANIC Verified 11/01/17 22:17 [From Compazine] ATTACK Physical Exam Osteopathic Statement: *. No significant issues noted on an osteopathic structural exam other than those noted in the History and Physical/Consult. Vitals: Vital Signs Temp Pulse Pulse Resp BP BP Pulse Ox 11/02/17 12:00 97.3 F L 92 14 109/72 97 11/02/17 08:00 97.5 F L 98 15 144/73 99 11/02/17 05:00 99 15 116/70 95 11/02/17 04:00 103 H 99 19 145/78 92 L 11/02/17 03:10 95 11/02/17 03:00 97.8 F 109 H 27 H 147/67 85 L 11/02/17 02:34 107 H 34 H 89 L 11/02/17 02:07 104 H 18 11/02/17 02:02 103 H 18 11/02/17 01:58 97.4 F L 25 H 147/67 93 L 11/01/17 21:40 97.4 F L 70 20 108/52 99 Intake and Output 11/01/17 11/02/17 11/02/17 22:59 06:59 14:59 Intake Total 100 Output Total 850 400 Balance -850 -300 Intake: IV 100 Sodium Chloride 0.9% 1, 100 000 ml @ 100 mls/hr IV . Q10H [facility] Rx#:[id number] Output: Urine 850 400 Other: Voiding Method Indwelling Catheter Bedside Commode # Voids 1 Weight 55.338 kg 57.3 kg 57.3 kg Patient Weight 11/03/17 06:59 Weight 57.3 kg No acute distress, oriented 3. She has a facial appearance and phenotype particularly in the extremities with somebody with Marfan's syndrome. HEENT examination is grossly unremarkable. Mucous membranes are moist. Neck supple. Full range of motion. No adenopathy thyromegaly or neck vein distention. Cardiovascular examination reveals regular rhythm rate. S1-S2 normal. No S3 or S4. No discernible murmur noted. Lungs reveal clear breath sounds. Her sounds are equal bilaterally. No adventitious lung sounds including wheezes rhonchi or crackles. Abdomen soft with mild tenderness diffusely but most tenderness in the left upper quadrant. No masses. Bowel sounds are noted. Extremities are intact. No cyanosis clubbing or edema. Skin is without rash or lesion. Neurologic examination is brief but nonfocal. Results - Laboratory Findings CBC and BMP: 11/02/17 04:15 11/02/17 09:25 PT/INR, D-dimer PT 91.2 sec (9.0-12.0) H 11/02/17 04:15 INR 9.7 (<1.2) H* 11/02/17 04:15 Abnormal lab findings: Abnormal Labs 11/01/17 11/01/17 11/02/17 23:10 23:10 00:01 RBC 3.64 L Hgb 7.7 L Hct 26.3 L MCV 72.2 L MCH 21.1 L MCHC 29.2 L RDW 18.3 H PT 85.3 H INR 9.1 H* APTT 64.7 H POC Glucose (mg/dL) AST 43 H Alkaline Phosphatase 131 H Total Protein 8.5 H Urine Blood Ur Leukocyte Esterase Urine RBC Urine WBC Urine Mucus Urine Opiates Screen U Tricyclic Antidepress 11/02/17 11/02/17 11/02/17 01:46 01:52 02:35 RBC Hgb Hct MCV MCH MCHC RDW PT INR APTT POC Glucose (mg/dL) 120 H AST Alkaline Phosphatase Total Protein Urine Blood Trace H Ur Leukocyte Esterase Moderate H Urine RBC 8 H Urine WBC 7 H Urine Mucus Rare H Urine Opiates Screen Detected H U Tricyclic Antidepress Detected H 11/02/17 11/02/17 11/02/17 04:15 04:15 09:25 RBC Hgb 8.4 L Hct 28.4 L MCV 74.2 L MCH 22.0 L MCHC 29.7 L RDW 18.1 H PT 91.2 H INR 9.7 H* APTT POC Glucose (mg/dL) AST Alkaline Phosphatase 145 H Total Protein 8.4 H Urine Blood Ur Leukocyte Esterase Urine RBC Urine WBC Urine Mucus Urine Opiates Screen U Tricyclic Antidepress - Diagnostic Findings Chest x-ray: image reviewed (Labs x-rays a medications are reviewed.) Assessment and Plan Assessment: Assessment Splenic hemorrhage, secondary to splenic artery cystic necrosis, exacerbated by the patient's Coumadin induced coagulopathy History of Marfan syndrome status post aortic valve replacement as well as a number of other major surgical procedures as it relates to this disease process. History of hepatitis C Multiple joint procedures Status post bypass grafting Multiple episodes of spontaneous pneumothorax History of CVA with residual right-sided weakness Previous history of pneumonia History of heart failure History of Arnold-Chiari malformation Scoliosis and pectus excavatum Plan: Plan dated 11/02/2017 The patient looks relatively stable to me. She is on 4 L to be turned on the 2 L. She had a basic IV at KVO. The patient should receive some fresh frozen plasma and vitamin K to bring the INR down. Labs x-rays a medications are all reviewed. Hemodynamically and respiratory walls, the patient's very stable. We' ll continue to follow closely. Prognosis is guarded. If she needs to go to surgery, she certainly would be a high risk patient given all her numerous medical problems. No additional recommendations are made. Time with Patient: Greater than 30
[2017-11-02 14:02] LABS: Anisocytosis Slight; HCT 28.2 % (34.0-46.0); Hypochromasia Marked; MCH 21.1 pg (25.0-35.0); MCHC 28.6 g/dL (31.0-37.0); MCV 73.7 fL (80.0-100.0); Mean Platelet Volume 6.7; Microcytosis Moderate; Platelet Count 368 k/uL (150-450); Poikilocytosis Slight; RBC 3.82 m/uL (3.80-5.40); RDW 18.4 % (11.5-15.5); WBC 6.3 k/uL (3.8-10.6)
[2017-11-02 14:16] LABS: Prothrombin Time 67.6 sec (9.0-12.0)
[2017-11-02 14:28] LABS: INR 7.3 (<1.2)
[2017-11-02] MEDS: HYDROcodone/APAP 5-325MG 1 EACH TAB PO PRN (17:16)
[2017-11-02] MEDS: ALBUTEROL NEBULIZED 2.5 MG/3 ML INHALATION PRN ×2 (18:57→22:35)
[2017-11-02] MEDS ORDERED: OLANZapine 5 MG TAB PO SCH (21:00)
[2017-11-02] MEDS ORDERED: IMIPRAMINE 25 MG TAB PO SCH (21:00)
[2017-11-02] MEDS ORDERED: FERROUS SULFATE 325 MG TAB PO SCH (21:00)
[2017-11-02 21:11] LABS: Anisocytosis Slight; HCT 26.4 % (34.0-46.0); HGB 7.4 gm/dL (11.4-16.0); Hypochromasia Marked; MCHC 28.1 g/dL (31.0-37.0); MCV 74.7 fL (80.0-100.0); Mean Platelet Volume 6.5; Microcytosis Moderate; Platelet Count 348 k/uL (150-450); Poikilocytosis Slight; RBC 3.53 m/uL (3.80-5.40); RDW 18.4 % (11.5-15.5); WBC 5.7 k/uL (3.8-10.6)
[2017-11-02 21:15] LABS: INR 3.4 (<1.2); Prothrombin Time 30.9 sec (9.0-12.0)
[2017-11-02 22:31] LABS: Glucose,Whole Blood 104 mg/dL (75-99)
[2017-11-03] MEDS: VANCOMYCIN 1,000 MG in SODIUM CHLORIDE 0.9% 250 ML IVPB SCH ×4 (00:29→23:55)
[2017-11-03 01:34] LABS: INR 2.2 (<1.2); Prothrombin Time 19.9 sec (9.0-12.0)
[2017-11-03 01:35] LABS: Anisocytosis Slight; HCT 26.5 % (34.0-46.0); HGB 7.1 gm/dL (11.4-16.0); Hypochromasia Marked; MCH 20.6 pg (25.0-35.0); MCHC 26.7 g/dL (31.0-37.0); Mean Platelet Volume 6.2; Microcytosis Slight; Platelet Count 335 k/uL (150-450); Poikilocytosis Slight; RBC 3.45 m/uL (3.80-5.40)
[2017-11-03] MEDS: HYDROcodone/APAP 5-325MG 1 EACH TAB PO PRN (03:39)
[2017-11-03] MEDS ORDERED: RX INFO: IV CONTRAST WAS GIVEN 1 EACH MISC MISCELLANE PRN (04:37)
[2017-11-03] MEDS: MORPHINE SULFATE 4 MG/ML SYRINGE IVP PRN ×5 (04:44→23:49)
[2017-11-03 05:54] LABS: Anisocytosis Slight; HCT 20.7 % (34.0-46.0); Hypochromasia Marked; MCH 20.8 pg (25.0-35.0); MCHC 27.2 g/dL (31.0-37.0); MCV 76.5 fL (80.0-100.0); Mean Platelet Volume 6.8; Microcytosis Slight; Platelet Count 368 k/uL (150-450); Poikilocytosis Moderate; RBC 2.71 m/uL (3.80-5.40); RDW 18.2 % (11.5-15.5)
[2017-11-03 06:01] LABS: INR 1.9 (<1.2); Prothrombin Time 17.4 sec (9.0-12.0)
[2017-11-03 06:04] LABS: HGB 5.6 gm/dL (11.4-16.0)
--- NOTE | 2017-11-03 06:11 | CT ---
EXAM: CT Abdomen and Pelvis With Intravenous Contrast CLINICAL HISTORY: ITS.REASON CT Reason: Splenic bleed/ worsening abdominal pain TECHNIQUE: Axial computed tomography images of the abdomen and pelvis with intravenous contrast. CTDI is 7.9 mGy and DLP is 592.1 mGy-cm. This CT exam was performed using one or more of the following dose reduction techniques: automated exposure control, adjustment of the mA and/or kV according to patient size, and/or use of iterative reconstruction technique. Coronal and sagittal reformatted images were created and reviewed. COMPARISON: 11/01/2017 FINDINGS: Lower thorax: Stable cardiomegaly with severe right heart enlargement. 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 Small bilateral pleural effusions are now present, with progressing lower lobe airspace disease which may represent atelectasis though component of pneumonia not excluded. Loculated foci of fluid tracking to the lower fissures. ABDOMEN: Liver: Unremarkable. No mass. Gallbladder and bile ducts: Cholelithiasis or possibly component of residual vicariously excreted contrast from previous IV administration. No ductal dilation. Pancreas: Unremarkable. No mass. No ductal dilation. Spleen: Larger appearance to the left splenic parenchymal hemorrhage, now measuring approximately length of 9.7 cm, with persistent component of increased vascularity within the bleed which could represent persistent extravasation. Adrenals: Unremarkable. No mass. Kidneys and ureters: Stable hypodensity of the renal cortex which may represent a component of infarct. Focal cortical thinning of the right kidney also again noted. No hydronephrosis. Stomach and bowel: Diminished stool burden within the colon. No evidence for bowel obstruction. No mucosal thickening. PELVIS: Bladder: Unremarkable. No mass. Reproductive: Unremarkable as visualized. ABDOMEN and PELVIS: Intraperitoneal space: Progressing hemoperitoneum is present, now moderate to large severity. Blood appears to extend also into the mediastinum surrounding the esophagus, query throughout hiatal hernia defect. Bones/joints: Stable chronic findings regarding the osseous structures No acute fracture. No dislocation. Soft tissues: Stable. Vasculature: Mild aortic atherosclerosis. Lymph nodes: Stable. IMPRESSION: 1. Moderate to large hemoperitoneum is now present as well as prominent enlargement of the mixed density splenic hemorrhage, with questionable mild active extravasation component. 2. New small pleural effusions with progressing airspace opacities in the lower lobes which may represent atelectasis or infectious infiltrate. Stable cardiomegaly and aneurysmal dilatation at the origin of the left main coronary artery. 3. Otherwise no significant acute interval change. Critical Value Communications 11/03/17 06:12 Call Doctor Regarding Above results, called Dr. Centeno on 11/03 06:11 (-05:00)
[2017-11-03] MEDS ORDERED: SODIUM CHLORIDE 0.9% 500 ML IV ONE (06:13)
[2017-11-03 06:36] LABS: ALT 27 U/L (9-52); AST 19 U/L (14-36); Albumin 2.8 g/dL (3.5-5.0); Alkaline Phosphatase 98 U/L (38-126); Anion Gap 8 mmol/L; Blood Urea Nitrogen 11 mg/dL (7-17); Calcium 8.1 mg/dL (8.4-10.2); Carbon Dioxide 26 mmol/L (22-30); Chloride 104 mmol/L (98-107); Glucose 124 mg/dL (74-99); Magnesium 1.8 mg/dL (1.6-2.3); Potassium 4.1 mmol/L (3.5-5.1); Sodium 138 mmol/L (137-145); Total Bilirubin 0.4 mg/dL (0.2-1.3); Total Protein 6.4 g/dL (6.3-8.2)
--- NOTE | 2017-11-03 07:05 | P.PN ---
Progress Note - Text Progress Note Date: 11/03/17 Throughout the night the patient's elevated INR was corrected. This morning I received a phone call the patient was experiencing increased pain. Systolic blood pressure in the 100s. Repeat CAT scan was ordered and does confirm hemoperitoneum with enlargement of the intraparenchymal hematoma of the spleen. Patient's hemoglobin was noted to drop to 5.8. Packed red blood cells are being transfused. Consent was obtained from the patient's legal guardian for open splenectomy. Her INR is 1.9. This will continue to be corrected. Case discussed with the patient as well. Risks of bleeding, infection, pancreatic injury/fistula, gastric perforation/injury, ND, PE, DVT and were discussed. She understands and wishes to proceed.
[2017-11-03] MEDS ORDERED: SODIUM CHLORIDE 0.9% 1,000 ML IV ONE ×3 (07:21→09:08)
[2017-11-03] MEDS ORDERED: PHENYLEPHRINE-0.9% NACL SYG 1 MG/10 ML SYRINGE ONE (07:21)
[2017-11-03] MEDS ORDERED: CALCIUM CHLORIDE 100 MG/ML 10 ML SYRINGE ONE (07:21)
[2017-11-03] MEDS ORDERED: fentaNYL (PF) 50 MCG/ML 2 ML AMP ONE (07:21)
[2017-11-03] MEDS ORDERED: ePHEDrine SULFATE/0.9% NACL/PF 50 MG/5 ML SYRINGE IV ONE (07:21)
[2017-11-03] MEDS ORDERED: ETOMIDATE 2 MG/ML 10 ML VIAL ONE (07:21)
[2017-11-03] MEDS ORDERED: MIDAZOLAM 2 MG/2 ML VIAL ONE (07:21)
[2017-11-03] MEDS ORDERED: SUCCINYLCHOLINE CHLORIDE 100 MG/5 ML SYR IV ONE (07:21)
[2017-11-03] MEDS ORDERED: VANCOMYCIN 1,000 MG VIAL IVPB ONE (07:21)
[2017-11-03] MEDS ORDERED: ROCURONIUM BROMIDE 10 MG/ML 10 ML VIAL IV ONE (07:21)
[2017-11-03] MEDS ORDERED: LACTATED RINGERS 1,000 ML IV ONE ×2 (07:21)
--- NOTE | 2017-11-03 09:02 | P.PN ---
Subjective Progress Note Date: 11/03/17 Principal diagnosis: Anemia, splenic hemorrhage Progress note dated 11/02/2017 This 32-year-old female was seen by me yesterday. She initially was admitted to the emergency department with abdominal pain. She was found have some splenic had hemorrhage possibly secondary to some abnormality in the splenic artery. Anyway, this morning she was found be quite anemic. She received 2 units of PRBCs 3 units of fresh frozen plasma and 7-1/2 mg of vitamin K yesterday. She also received a 500 mL fluid bolus. She was on O2 at 3 L nasal cannula and receiving saline IV at KVO. The surgeon decided to take her to the operating room for emergent splenectomy. She went this morning. Overall, throughout the night she was relatively stable. She did develop some mild hypotension this morning. The patient has a previous history of Marfan's syndrome and has had multiple surgical procedures including aortic valve replacement and bypass grafting. Please note my very detailed consultation yesterday outlining her myriad of medical problems. Objective - Vital Signs Vital signs: Vital Signs Temp 97.7 F 11/03/17 07:02 Pulse 102 H 11/03/17 07:02 Resp 12 11/03/17 07:02 BP 104/59 11/03/17 07:02 Pulse Ox 98 11/03/17 07:02 Intake & Output 11/02/17 11/03/17 11/03/17 18:59 06:59 18:59 Intake Total 1236 1218 952 Output Total 601 Balance 635 1218 952 Weight 57.3 kg 55 kg Intake: IV 600 620 10 0.9 at KVO 120 10 Sodium Chloride 0.9% 1, 100 000 ml @ 100 mls/hr IV . Q10H [facility] Rx#:[id number] Sodium Chloride 0.9% 500 500 ml @ 500 mls/hr IV .Q1H [facility] Rx#:[id number] Vancomycin 1,000 mg In 500 Sodium Chloride 0.9% 250 ml @ 125 mls/hr IVPB Q8HR [facility] Rx#:[id number] Oral 10 Blood Product 626 598 942 Ffp 24 Cpd Unit 313 [id number] Ffp 24 Cpd Unit 292 [id number] Ffp 24 Cpd Unit 306 [id number] Ffp 24 Cpd Unit 0 [id number] Ffp 24 Cpd Unit 322 [id number] Rc As-1 Unit 310 [id number] Rc As-1 Unit 310 [id number] Rc As-1 Unit 0 [id number] Output: Urine 600 Urine/Stool Mix 1 Other: Voiding Method Bedpan Bedpan # Voids 1 1 # Bowel Movements 1 - Exam No acute distress, oriented 3. Nasal O2 in place HEENT examination is grossly unremarkable. Mucous membranes are moist. No oral lesions. Teeth are in poor repair Neck supple. Full range of motion. No adenopathy thyromegaly or neck vein distention. Cardiovascular examination reveals regular rhythm rate. S1-S2 normal. No S3 or S4. No discernible murmur noted. Lungs reveal clear breath sounds. Her sounds are equal bilaterally. No adventitious lung sounds including wheezes rhonchi or crackles. Abdomen soft and and bowel sounds are heard. Mild abdominal tenderness particularly in the area of the left upper quadrant. Extremities are intact. No cyanosis clubbing or edema. Skin is without rash or lesion. Neurologic examination is brief but nonfocal. - Labs CBC & Chem 7: 11/03/17 05:37 11/03/17 05:37 Labs: Abnormal Lab Results - Last 24 Hours (Table) 11/02/17 11/02/17 11/02/17 Range/Units 01:04 09:25 13:40 WBC (3.8-10.6) k/uL RBC (3.80-5.40) m/uL Hgb 8.0 L (11.4-16.0) gm/dL Hct 28.2 L (34.0-46.0) % MCV 73.7 L (80.0-100.0) fL MCH 21.1 L (25.0-35.0) pg MCHC 28.6 L (31.0-37.0) g/dL RDW 18.4 H (11.5-15.5) % PT (9.0-12.0) sec INR (<1.2) Glucose (74-99) mg/dL POC Glucose (mg/dL) (75-99) mg/dL Calcium (8.4-10.2) mg/dL Alkaline Phosphatase 145 H (38-126) U/L Total Protein 8.4 H (6.3-8.2) g/dL Albumin (3.5-5.0) g/dL Crossmatch See Detail 11/02/17 11/02/17 11/02/17 Range/Units 13:40 20:52 20:52 WBC (3.8-10.6) k/uL RBC 3.53 L (3.80-5.40) m/uL Hgb 7.4 L (11.4-16.0) gm/dL Hct 26.4 L (34.0-46.0) % MCV 74.7 L (80.0-100.0) fL MCH 21.0 L (25.0-35.0) pg MCHC 28.1 L (31.0-37.0) g/dL RDW 18.4 H (11.5-15.5) % PT 67.6 H 30.9 H (9.0-12.0) sec INR 7.3 H* 3.4 H (<1.2) Glucose (74-99) mg/dL POC Glucose (mg/dL) (75-99) mg/dL Calcium (8.4-10.2) mg/dL Alkaline Phosphatase (38-126) U/L Total Protein (6.3-8.2) g/dL Albumin (3.5-5.0) g/dL Crossmatch 11/02/17 11/03/17 11/03/17 Range/Units 22:28 01:18 01:18 WBC (3.8-10.6) k/uL RBC 3.45 L (3.80-5.40) m/uL Hgb 7.1 L (11.4-16.0) gm/dL Hct 26.5 L (34.0-46.0) % MCV 77.0 L (80.0-100.0) fL MCH 20.6 L (25.0-35.0) pg MCHC 26.7 L (31.0-37.0) g/dL RDW 18.0 H (11.5-15.5) % PT 19.9 H (9.0-12.0) sec INR 2.2 H (<1.2) Glucose (74-99) mg/dL POC Glucose (mg/dL) 104 H (75-99) mg/dL Calcium (8.4-10.2) mg/dL Alkaline Phosphatase (38-126) U/L Total Protein (6.3-8.2) g/dL Albumin (3.5-5.0) g/dL Crossmatch 11/03/17 11/03/17 11/03/17 Range/Units 05:37 05:37 05:37 WBC 11.0 H (3.8-10.6) k/uL RBC 2.71 L (3.80-5.40) m/uL Hgb 5.6 L* D (11.4-16.0) gm/dL Hct 20.7 L (34.0-46.0) % MCV 76.5 L (80.0-100.0) fL MCH 20.8 L (25.0-35.0) pg MCHC 27.2 L (31.0-37.0) g/dL RDW 18.2 H (11.5-15.5) % PT 17.4 H (9.0-12.0) sec INR 1.9 H (<1.2) Glucose 124 H (74-99) mg/dL POC Glucose (mg/dL) (75-99) mg/dL Calcium 8.1 L (8.4-10.2) mg/dL Alkaline Phosphatase (38-126) U/L Total Protein (6.3-8.2) g/dL Albumin 2.8 L (3.5-5.0) g/dL Crossmatch Assessment and Plan Assessment: Assessment Splenic hemorrhage, secondary to splenic artery cystic necrosis, exacerbated by the patient's Coumadin induced coagulopathy, with the emergent splenectomy on . History of Marfan syndrome status post aortic valve replacement as well as a number of other major surgical procedures as it relates to this disease process. History of hepatitis C Multiple joint procedures Status post bypass grafting Multiple episodes of spontaneous pneumothorax History of CVA with residual right-sided weakness Previous history of pneumonia History of heart failure History of Arnold-Chiari malformation Scoliosis and pectus excavatum Plan: Plan dated 11/02/2017 The patient looks relatively stable to me. She is on 4 L to be turned on the 2 L. She had a basic IV at KVO. The patient should receive some fresh frozen plasma and vitamin K to bring the INR down. Labs x-rays a medications are all reviewed. Hemodynamically and respiratory walls, the patient's very stable. We' ll continue to follow closely. Prognosis is guarded. If she needs to go to surgery, she certainly would be a high risk patient given all her numerous medical problems. No additional recommendations are made. Plan dated 11/03/2017 The patient went down to the operating room this morning for an emergent splenectomy. The patient was stable through the night other than a dropping hemoglobin and some mild hypotension this morning. She did receive a 500 mL fluid bolus. Protonix was added as a GI prophylaxis. In addition, since she's been here, she's received 2 units of PRBCs and 3 units of fresh frozen plasma along with 7-1/2 mg of vitamin K on November 02. The patient may return back to the ICU on the mechanical ventilator. We'll do with her when she gets back. Time with Patient: Greater than 30
[2017-11-03] MEDS: BACLOFEN 10 MG TAB PO SCH (09:11)
[2017-11-03] MEDS: DULoxetine HCL 60 MG CAPSULE.DR PO SCH (09:11)
[2017-11-03] MEDS: CHOLECALCIFEROL 1,000 UNIT TAB PO SCH (09:11)
--- NOTE | 2017-11-03 09:30 | P.OP ---
Date of Procedure: 11/03/17 Procedure(s) Performed: PREOPERATIVE DIAGNOSIS: Splenic hemorrhage POSTOPERATIVE DIAGNOSIS: Same PROCEDURE: Open splenectomy SURGEON: Taryn EBL: 1.4L ANESTHESIA: General COMPLICATIONS: None OPERATIVE PROCEDURE: Patient place in the operative table in the supine position. The patient was placed under general anesthesia. The abdomen was prepped and draped in usual sterile fashion. A vertical incision was made encompassing the umbilical hernia that was present. The fascia was divided as well. The Bookwalter retractor was utilized. Upon entrance into the abdominal cavity a large volume of bloody fluid was evacuated. Should be noted that the appearance of this blood was slightly more serous in nature then usual for a traumatic spleen. There was a large volume of clots as well. We retrieved 900 mL of bloody fluid and an additional 500 mL of clots. Sponges were placed around the spleen immediately. No additional sites of bleeding were seen. The patient had a defect measuring approximately 6-7 cm in the lateral aspect of the spleen that was oozing. The volume of bleeding was less than expected. The ligaments holding the spleen to the retroperitoneum, colon, and diaphragm were divided using both blunt dissection and cautery. This allowed us to bring the spleen more anterior. The gastrosplenic ligament was divided primarily using LigaSure device however towards the superior fundus 0 silk ties were utilized. Care was taken to avoid proximity of our LigaSure to the gastric wall. The patient's pancreas was noted to extend into the splenic hilum even more then we typically see. I divided the vasculature entering the spleen using a white load echelon 60 stapler. The patient had a plexus of small vessels in this case entering the spleen as the splenic artery was noted preoperatively to be thrombosed. A total of approximate 5-6 firings of the stapler took place to divide the hilum. No bleeding was seen once the hilum was divided. The spleen was passed off. Careful irrigation of the abdominal cavity took place. No additional bleeding was seen. A drain was placed in the left upper quadrant given the proximity of the spleen to our staple line. The liver, stomach, visualized colon, and small bowel appeared normal. The midline fascia was then reapproximated using a double-stranded #1 PDS suture. 2 separate PDS sutures were utilized. The fascia at the umbilical hernia was debrided and this was incorporated into our formal closure. 2 separate 0 Ethibond [id number] sutures were used at the most superior aspect of our incision site for fascial closure. The subcutaneous tissues were closed using 3 -0 Vicryl sutures. The skin was then closed using minna. Sterile dressings were then applied. DISPOSITION: Stable to recovery room
[2017-11-03 10:20] LABS: ABG Base Excess -2.4 mmol/L; ABG HCO3 23 mmol/L (21-25); ABG PCO2 41 mmHg (35-45); ABG PH 7.36 (7.35-7.45); ABG PO2 294 mmHg (83-108); ABG TCO2 24 mmol/L (19-24)
[2017-11-03] MEDS: PANTOPRAZOLE 40 MG/10 ML VIAL IVP SCH (10:32)
[2017-11-03 10:48] LABS: INR 1.4 (<1.2)
[2017-11-03 10:52] LABS: Anisocytosis Slight; HCT 29.9 % (34.0-46.0); Hypochromasia Marked; MCH 24.4 pg (25.0-35.0); MCHC 30.4 g/dL (31.0-37.0); MCV 80.2 fL (80.0-100.0); Mean Platelet Volume 6.5; Microcytosis Slight; Platelet Count 320 k/uL (150-450); Poikilocytosis Marked; RBC 3.73 m/uL (3.80-5.40); RDW 17.3 % (11.5-15.5); WBC 14.3 k/uL (3.8-10.6)
[2017-11-03 10:53] LABS: HGB 9.1 gm/dL (11.4-16.0)
[2017-11-03 11:17] LABS: ABG Base Excess -1.6 mmol/L; ABG HCO3 24 mmol/L (21-25); ABG Oxygen Saturation 94.9 % (94-97); ABG PCO2 44 mmHg (35-45); ABG PH 7.35 (7.35-7.45); ABG PO2 70 mmHg (83-108); ABG TCO2 25 mmol/L (19-24)
[2017-11-03 11:41] LABS: ALT 24 U/L (9-52); AST 24 U/L (14-36); Albumin 2.8 g/dL (3.5-5.0); Alkaline Phosphatase 94 U/L (38-126); Anion Gap 6 mmol/L; Blood Urea Nitrogen 11 mg/dL (7-17); Calcium 8.5 mg/dL (8.4-10.2); Carbon Dioxide 23 mmol/L (22-30); Chloride 112 mmol/L (98-107); Glucose 104 mg/dL (74-99); Potassium 4.8 mmol/L (3.5-5.1); Sodium 141 mmol/L (137-145); Total Bilirubin 1.2 mg/dL (0.2-1.3); Total Protein 6.2 g/dL (6.3-8.2)
[2017-11-03] MEDS ORDERED: IPRATROPIUM-ALBUTEROL 3 ML NEB INHALATION PRN (12:19)
[2017-11-03] MEDS: IPRATROPIUM-ALBUTEROL 3 ML NEB INHALATION SCH ×2 (13:27→21:00)
[2017-11-03] MEDS ORDERED: MORPHINE SULFATE 4 MG/ML SYRINGE IVP STA (14:09)
--- NOTE | 2017-11-03 14:32 | P.PN ---
Subjective Progress Note Date: 11/03/17 Principal diagnosis: abdominal pain Patient is a 32-year-old female with a past medical history of Marfan syndrome, multiple aortic valve replacement on Coumadin, chronic pain, and scoliosis who presented to the emergency department with complaints of abdominal pain. In the emergency department she underwent an extensive evaluation. Her initial vital signs are found to be within normal limits. Initial laboratory analysis showed a significant drop in her hemoglobin. Her hemoglobin has chronically been between 9.5-11 for the past 2 months and prior to that was in the normal range. Her INR was found to be greater than 9. 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 There is concern about reversing her INR and she has a mechanical valve. She did not appear to be actively bleeding. After Dr. Centeno from surgery was consulted. She was made nothing by mouth and admitted to the ICU the selective care overflow. Since her last discharge the patient has been assigned a court appointed guardian. She has also been moved into a intermediate. It is likely that she had not been taking her Coumadin prior and with moving to the intermediate began taking this medication on a regular basis and therefore became supratherapeutic. On the morning after admission patient had significant lethargy despite complaining of pain. She states that she had not slept well the night prior. On repeat CBC her hemoglobin had actually increased from 7.7-8.4. Dr. Centeno reviewed CT scan with the radiologist and there was concern for active splenic hemorrhage. She was given additional vitamin K as well as FFP. She was started on serial CBCs serial PT/INRs. Her INR had decreased to 3.4 by 9 p.m. on 11/02 she was ordered additional FFP. Suddenly on the morning of 11/03 at approximately 4 AM she started having worsening of her abdominal pain. Stat hemoglobin and INR were rechecked. Her hemoglobin had dropped to 5.9 and INR had improved to 1.9. She was ordered 2 units of packed red blood cells and additional 2 units of FFP. Repeat CT abdomen and pelvis was ordered which showed worsening enlargement of the spleen and hemoperitoneum. Dr. Centeno emergently to the patient to operating room and performed a open splenectomy. As of the afternoon of 11/03 she had a total of 3 units of packed red blood cells and 5 units of FFP. She returned to the ICU intubated. She is awake and following commands and was subsequently extubated. Patient seen and examined at bedside. Patient was seen twice on the morning once prior to extubation once after extubation. After extubation she was complaining of abdominal pain and wanting water. She denies any chest pain or shortness of breath. She does not seem to understand why she cannot have water and why it is dangerous to give her too many pain medications. Her and I discussed that we needed to wait slightly longer prior to administering IV morphine to make sure that she was breathing appropriately in her blood pressure remained stable after extubation. I also explained to her why she did not have water after having just had open abdominal surgery. Patient continues to struggle grasping these concepts. Legal guardian called and left voicemail awaiting call back to further update them. Objective - Vital Signs Vital signs: Vital Signs Temp 98.2 F 11/03/17 10:15 Pulse 105 H 11/03/17 11:30 Resp 17 11/03/17 11:30 BP 158/77 11/03/17 11:30 Pulse Ox 95 11/03/17 11:30 Intake & Output 11/02/17 11/03/17 11/03/17 18:59 06:59 18:59 Intake Total 1236 1218 3358 Output Total 601 1925 Balance 635 1218 1433 Weight 57.3 kg 55 kg 57.2 kg Intake: IV 350 959 1337 0.9 at KVO 120 40 Sodium Chloride 0.9% 1, 100 000 ml @ 100 mls/hr IV . Q10H [facility] Rx#:[id number] Sodium Chloride 0.9% 500 500 ml @ 500 mls/hr IV .Q1H ONE Rx#:[id number] Vancomycin 1,000 mg In 500 Sodium Chloride 0.9% 250 ml @ 125 mls/hr IVPB Q8HR [facility] Rx#:[id number] Oral 10 Blood Product 875 321 6740 Ffp 24 Cpd Unit 313 [id number] Ffp 24 Cpd Unit 292 [id number] Ffp 24 Cpd Unit 306 [id number] Ffp 24 Cpd Unit 288 [id number] Ffp 24 Cpd Unit 322 [id number] Rc As-1 Unit 310 [id number] Rc As-1 Unit 310 [id number] Rc As-1 Unit 0 288 [id number] Output: Drainage 75 Left Lower Abdomen 75 Urine 600 450 Urine/Stool Mix 1 Estimated Blood Loss 1400 Other: Voiding Method Bedpan Bedpan Indwelling Catheter # Voids 1 1 # Bowel Movements 1 ABP, PAP, CO, CI - Last Documented Arterial Blood Pressure 114/64 - Exam General: Ill appearing, mild distress, appears at stated age Derm: warm, dry, no erythema over right ankle Head: atraumatic, normocephalic, symmetric Eyes: EOMI, no lid lag, anicteric sclera Mouth: no lip lesion, mucus membranes moist Cardiovascular: S1S2 reg, no murmur, positive posterior tibial pulse bilateral, Lungs: Decreased breath sounds bilaterally, no rhonchi, no rales , no accessory muscle use Abdominal: Absent bowel sounds, distended soft, + tender to palpation diffusely , no guarding, dressing in place over left abdomen, TEDDY drain in place with serosanguineous fluid Ext: + gross muscle atrophy, trace edema RIght ankle, no contractures, levoscoliosis Neuro: CN II-XI grossly intact, no focal neuro deficits Psych: Alert, oriented, flat affect - Labs CBC & Chem 7: 11/03/17 10:25 11/03/17 10:25 Labs: Abnormal Lab Results - Last 24 Hours (Table) 11/02/17 11/02/17 11/02/17 Range/Units 01:04 13:40 13:40 WBC (3.8-10.6) k/uL RBC (3.80-5.40) m/uL Hgb 8.0 L (11.4-16.0) gm/dL Hct 28.2 L (34.0-46.0) % MCV 73.7 L (80.0-100.0) fL MCH 21.1 L (25.0-35.0) pg MCHC 28.6 L (31.0-37.0) g/dL RDW 18.4 H (11.5-15.5) % PT 67.6 H (9.0-12.0) sec INR 7.3 H* (<1.2) ABG pO2 (83-108) mmHg ABG Total CO2 (19-24) mmol/L ABG O2 Saturation (94-97) % Chloride (98-107) mmol/L Glucose (74-99) mg/dL POC Glucose (mg/dL) (75-99) mg/dL Calcium (8.4-10.2) mg/dL Total Protein (6.3-8.2) g/dL Albumin (3.5-5.0) g/dL Crossmatch See Detail 11/02/17 11/02/17 11/02/17 Range/Units 20:52 20:52 22:28 WBC (3.8-10.6) k/uL RBC 3.53 L (3.80-5.40) m/uL Hgb 7.4 L (11.4-16.0) gm/dL Hct 26.4 L (34.0-46.0) % MCV 74.7 L (80.0-100.0) fL MCH 21.0 L (25.0-35.0) pg MCHC 28.1 L (31.0-37.0) g/dL RDW 18.4 H (11.5-15.5) % PT 30.9 H (9.0-12.0) sec INR 3.4 H (<1.2) ABG pO2 (83-108) mmHg ABG Total CO2 (19-24) mmol/L ABG O2 Saturation (94-97) % Chloride (98-107) mmol/L Glucose (74-99) mg/dL POC Glucose (mg/dL) 104 H (75-99) mg/dL Calcium (8.4-10.2) mg/dL Total Protein (6.3-8.2) g/dL Albumin (3.5-5.0) g/dL Crossmatch 11/03/17 11/03/17 11/03/17 Range/Units : 01:18 05:37 WBC 11.0 H (3.8-10.6) k/uL RBC 3.45 L 2.71 L (3.80-5.40) m/uL Hgb 7.1 L 5.6 L* D (11.4-16.0) gm/dL Hct 26.5 L 20.7 L (34.0-46.0) % MCV 77.0 L 76.5 L (80.0-100.0) fL MCH 20.6 L 20.8 L (25.0-35.0) pg MCHC 26.7 L 27.2 L (31.0-37.0) g/dL RDW 18.0 H 18.2 H (11.5-15.5) % PT 19.9 H (9.0-12.0) sec INR 2.2 H (<1.2) ABG pO2 (83-108) mmHg ABG Total CO2 (19-24) mmol/L ABG O2 Saturation (94-97) % Chloride (98-107) mmol/L Glucose (74-99) mg/dL POC Glucose (mg/dL) (75-99) mg/dL Calcium (8.4-10.2) mg/dL Total Protein (6.3-8.2) g/dL Albumin (3.5-5.0) g/dL Crossmatch 11/03/17 11/03/17 11/03/17 Range/Units 05:37 05:37 10:17 WBC (3.8-10.6) k/uL RBC (3.80-5.40) m/uL Hgb (11.4-16.0) gm/dL Hct (34.0-46.0) % MCV (80.0-100.0) fL MCH (25.0-35.0) pg MCHC (31.0-37.0) g/dL RDW (11.5-15.5) % PT 17.4 H (9.0-12.0) sec INR 1.9 H (<1.2) ABG pO2 294 H (83-108) mmHg ABG Total CO2 (19-24) mmol/L ABG O2 Saturation 100.0 H (94-97) % Chloride (98-107) mmol/L Glucose 124 H (74-99) mg/dL POC Glucose (mg/dL) (75-99) mg/dL Calcium 8.1 L (8.4-10.2) mg/dL Total Protein (6.3-8.2) g/dL Albumin 2.8 L (3.5-5.0) g/dL Crossmatch 11/03/17 11/03/17 11/03/17 Range/Units 10:25 10:25 10:25 WBC 14.3 H (3.8-10.6) k/uL RBC 3.73 L (3.80-5.40) m/uL Hgb 9.1 L D (11.4-16.0) gm/dL Hct 29.9 L (34.0-46.0) % MCV (80.0-100.0) fL MCH 24.4 L (25.0-35.0) pg MCHC 30.4 L (31.0-37.0) g/dL RDW 17.3 H (11.5-15.5) % PT 13.0 H (9.0-12.0) sec INR 1.4 H (<1.2) ABG pO2 (83-108) mmHg ABG Total CO2 (19-24) mmol/L ABG O2 Saturation (94-97) % Chloride 112 H (98-107) mmol/L Glucose 104 H (74-99) mg/dL POC Glucose (mg/dL) (75-99) mg/dL Calcium (8.4-10.2) mg/dL Total Protein 6.2 L (6.3-8.2) g/dL Albumin 2.8 L (3.5-5.0) g/dL Crossmatch 11/03/17 Range/Units 11:14 WBC (3.8-10.6) k/uL RBC (3.80-5.40) m/uL Hgb (11.4-16.0) gm/dL Hct (34.0-46.0) % MCV (80.0-100.0) fL MCH (25.0-35.0) pg MCHC (31.0-37.0) g/dL RDW (11.5-15.5) % PT (9.0-12.0) sec INR (<1.2) ABG pO2 70 L (83-108) mmHg ABG Total CO2 25 H (19-24) mmol/L ABG O2 Saturation (94-97) % Chloride (98-107) mmol/L Glucose (74-99) mg/dL POC Glucose (mg/dL) (75-99) mg/dL Calcium (8.4-10.2) mg/dL Total Protein (6.3-8.2) g/dL Albumin (3.5-5.0) g/dL Crossmatch Microbiology - Last 24 Hours (Table) 11/02/17 09:35 Blood Culture - Preliminary Blood No Growth after 24 hours 11/02/17 09:25 Blood Culture - Preliminary Blood No Growth after 24 hours Assessment and Plan Assessment: Splenic hemorrhage status post open splenectomy - Management as per surgical team -Has received 3 units of blood and 5 units of FFP -Pain control -Antiemetics -Bed rest until okayed by surgery -Avoid additional anticoagulant -We will need appointment with Dr. Tyler in 14 days after splenectomy for administration of additional vaccine. Patient will need both pneumonia shots as well as meningitis vaccinations. She will also need possible influenza type B if that has not been administered as well as Tdap. Literature showed a fever given before 14 days she may need a repeat immunization. We'll attempt to make appointment for her prior to discharge. Acute blood loss anemia -Status post 3 units of packed red blood cells -Follow CBC -Additional units are currently on hold Supratherapeutic INR with mechanical heart valve -Patient is status post 5 mg of vitamin K as well as 5 units of FFP. She does have a history of to mechanical aortic valve (X2) with a history of valvular stenosis and subtherapeutic Coumadin levels leading to stroke. She is also had aortic root repair. - Cardiology consultation - Follow INRs closely and monitor first possible signs of valve malfunction. Probable early cellulitis of right lower extremity -Vancomycin -Clinically improving. Would treat for an additional 4 days. Compensated congestive heart failure, ejection fraction 55-60% -No indication for beta madelaine or FROYLAN inhibitor -Cardiology recommendations -Follow fluid status closely New nodular infiltrate -Stat acute abdominal series was ordered this morning -Pulmonary consultation Chronic: Osteoarthritis Severe kyphosis and scoliosis Marfan syndrome History of hepatitis C History of IVDA Multiple episodes of spontaneous pneumothorax and history of lobectomy DVT prophylaxis: INR elevated Discussed with: Patient, nursing, Dr. Centeno Anticipated discharge: Undetermined Anticipated discharge place: Undetermined A total of 45 minutes was spent on the care of this complex patient more than 50 % of the time was spent in counseling and care coordination.
[2017-11-03] MEDS ORDERED: VANCOMYCIN TROUGH DUE 1 EACH MISC MISCELLANE ONE (15:00)
[2017-11-03 17:57] LABS: Anisocytosis Slight; HCT 30.1 % (34.0-46.0); Hypochromasia Marked; MCH 24.1 pg (25.0-35.0); MCV 80.4 fL (80.0-100.0); Mean Platelet Volume 6.3; Microcytosis Slight; Platelet Count 311 k/uL (150-450); Poikilocytosis Marked; RBC 3.74 m/uL (3.80-5.40); RDW 17.9 % (11.5-15.5); WBC 13.2 k/uL (3.8-10.6)
[2017-11-03 20:05] LABS: INR 1.3 (<1.2); Prothrombin Time 12.5 sec (9.0-12.0)
[2017-11-04 04:47] LABS: Anisocytosis Slight; HCT 29.7 % (34.0-46.0); HGB 8.9 gm/dL (11.4-16.0); Hypochromasia Marked; MCHC 29.8 g/dL (31.0-37.0); MCV 80.3 fL (80.0-100.0); Mean Platelet Volume 6.8; Microcytosis Slight; Platelet Count 312 k/uL (150-450); Poikilocytosis Marked; RDW 18.6 % (11.5-15.5); WBC 13.5 k/uL (3.8-10.6)
[2017-11-04 04:51] LABS: INR 1.3 (<1.2); Prothrombin Time 12.5 sec (9.0-12.0)
[2017-11-04 04:54] LABS: ALT 25 U/L (9-52); AST 22 U/L (14-36); Alkaline Phosphatase 106 U/L (38-126); Anion Gap 8 mmol/L; Blood Urea Nitrogen 7 mg/dL (7-17); Calcium 8.4 mg/dL (8.4-10.2); Carbon Dioxide 26 mmol/L (22-30); Chloride 107 mmol/L (98-107); Glucose 96 mg/dL (74-99); Magnesium 1.6 mg/dL (1.6-2.3); Phosphorus 3.7 mg/dL (2.5-4.5); Potassium 3.9 mmol/L (3.5-5.1); Sodium 141 mmol/L (137-145); Total Bilirubin 1.3 mg/dL (0.2-1.3); Total Protein 6.4 g/dL (6.3-8.2)
[2017-11-04] MEDS ORDERED: Magnesium Replacement Protocol 1 EACH MISC MISCELLANE PRN ×2 (05:27→05:28)
[2017-11-04] MEDS ORDERED: Potassium Replacement Protocol 1 EACH MISC MISCELLANE PRN (05:27)
[2017-11-04] MEDS: MORPHINE SULFATE 4 MG/ML SYRINGE IVP PRN ×6 (05:45→21:25)
[2017-11-04] MEDS: MAGNESIUM SULFATE-D5W PMX 1 GM in DEXTROSE/WATER 1 100ML.BAG IVPB SCH ×2 (06:07→08:49)
[2017-11-04] MEDS: POTASSIUM CHLORIDE 10 MEQ in WATER FOR INJECTION 1 100ML.BAG IVPB SCH ×2 (06:09→08:08)
[2017-11-04] MEDS: IPRATROPIUM-ALBUTEROL 3 ML NEB INHALATION SCH ×3 (07:38→19:30)
[2017-11-04] MEDS: VANCOMYCIN 1,000 MG in SODIUM CHLORIDE 0.9% 250 ML IVPB SCH ×3 (08:09→23:27)
[2017-11-04] MEDS: PANTOPRAZOLE 40 MG/10 ML VIAL IVP SCH (08:09)
[2017-11-04] MEDS: SODIUM CHLORIDE 0.9% 1,000 ML IV SCH ×2 (11:44→23:32)
--- NOTE | 2017-11-04 12:05 | CONS ---
CONSULTATION Mrs. Gilmore is a 32-year-old female, who is seen for the cardiac evaluation in the postop. Patient's chart is reviewed. This patient is status post aortic valve replacement. History of Marfan syndrome and history of coronary artery bypass surgery. Patient is being followed in the [facility]. Patient came with abdominal pain and subsequently patient was found to have a splenic hemorrhage. Patient's INR was 9.1 on admission. Patient received vitamin K and fresh frozen plasma and subsequently was taken to the surgery and had a splenectomy done. At present, patient is comfortable. No acute respiratory distress. Patient is in normal sinus rhythm. PAST MEDICAL HISTORY: Includes a history of a stroke, history of neurological disorder, right-sided weakness from the stroke, Marfan syndrome, Arnold-Chiari malformation, spontaneous pneumothorax multiple times and history of scoliosis, history of aortic valve replacement and bypass surgery, the details of which are not available. HOME MEDICATIONS: Included baclofen, Neurontin, Motrin, Coumadin, vitamin D3, Cymbalta, Tofranil, Zyprexa, Feosol. PHYSICAL EXAMINATION: At present reveals a 32-year-old, thinly-built female, who does not appear to be in any acute distress. Patient's blood pressure is 114/64 mmHg. Oxygen saturation is 94%. Heart rate is 100 per minute. HEENT examination is negative. Neck is supple. There is no increase in jugular venous pressure. Both the carotid pulses are felt. There is no bruit. Chest is symmetrical. Heart, the prosthetic sounds are well heard. Lungs are fairly clear to auscultation and percussion. Abdomen is soft and tender. EXTREMITIES: There is no evidence of any leg edema. Patient's hemoglobin now is 8.9. Electrolytes are normal. INR is 1.3. FINAL IMPRESSION: 1. This patient came with a splenic hemorrhage and she is status post splenectomy. 2. History of Marfan syndrome with aortic valve replacement and coronary artery bypass surgery. RECOMMENDATIONS: We will continue to monitor the patient's EKG and echocardiogram would be done and we will discuss with Dr. Centeno. Whenever it is okay with him, we will start the patient back on Coumadin. MMODL / IJN: [id number] /
--- NOTE | 2017-11-04 12:51 | P.PN ---
Subjective Progress Note Date: 11/04/17 Principal diagnosis: Anemia, splenic hemorrhage Progress note dated 11/03/2017 This 32-year-old female was seen by me yesterday. She initially was admitted to the emergency department with abdominal pain. She was found have some splenic had hemorrhage possibly secondary to some abnormality in the splenic artery. Anyway, this morning she was found be quite anemic. She received 2 units of PRBCs 3 units of fresh frozen plasma and 7-1/2 mg of vitamin K yesterday. She also received a 500 mL fluid bolus. She was on O2 at 3 L nasal cannula and receiving saline IV at KVO. The surgeon decided to take her to the operating room for emergent splenectomy. She went this morning. Overall, throughout the night she was relatively stable. She did develop some mild hypotension this morning. The patient has a previous history of Marfan's syndrome and has had multiple surgical procedures including aortic valve replacement and bypass grafting. Please note my very detailed consultation yesterday outlining her myriad of medical problems. Progress note dated 11/04/2017 The patient is seen again today in follow-up in the intensive care unit. 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 This is postoperative day #1. Presently she is awake and alert in no acute distress. Her only complaint this morning is that of being thirsty. She is maintaining good O2 saturations in the 90s on 4 L/m per nasal cannula. She has a 0.9 normal saline running at 20 mL's per hour. Preliminary blood cultures positive for gram-positive cocci in chains. She is on vancomycin. White count 13.5. Hemoglobin 8.9. Platelets 312,000. INR 1.3. Electrolytes within normal range. Creatinine 0.54. She is status post 2 units of packed red blood cells, 5 units of fresh frozen plasma. Objective - Vital Signs Vital signs: Vital Signs Temp 97.8 F 11/04/17 08:00 Pulse 101 H 11/04/17 11:00 Resp 25 H 11/04/17 11:00 BP 138/69 11/03/17 22:00 Pulse Ox 94 L 11/04/17 11:00 Intake & Output 11/03/17 11/04/17 11/04/17 18:59 06:59 18:59 Intake Total 3672 576 847 Output Total 2495 860 505 Balance 1177 -284 342 Weight 57.2 kg 62.9 kg Intake: IV 2154 351 362 0.9 at KVO 80 190 100 0.9 for pressure bag 24 36 12 Vancomycin 1,000 mg In 250 125 250 Sodium Chloride 0.9% 250 ml @ 125 mls/hr IVPB Q8HR [facility] Rx#:[id number] Intake, IV Titration 125 475 Amount Magnesium Sulfate-D5w Pmx 200 1 gm In Dextrose/Water 1 100ml.bag @ 100 mls/hr IVPB Q1H [facility] Rx#: [id number] Potassium Chloride 10 meq 200 In Water For Injection 1 100ml.bag @ 100 mls/hr IVPB Q1H [facility] Rx#: [id number] Sodium Chloride 0.9% 1, 75 000 ml @ 75 mls/hr IV . [id number] [facility] Rx#:[id number] Vancomycin 1,000 mg In 125 Sodium Chloride 0.9% 250 ml @ 125 mls/hr IVPB Q8HR [facility] Rx#:[id number] Oral 100 10 Blood Product 1518 Ffp 24 Cpd Unit 288 [id number] Ffp 24 Cpd Unit 322 [id number] Rc As-1 Unit 310 [id number] Rc As-1 Unit 310 [id number] Rc As-1 Unit 288 [id number] Output: Drainage 125 35 Left Lower Abdomen 125 35 Urine 970 825 505 Estimated Blood Loss 1400 Other: Voiding Method Indwelling Catheter Indwelling Catheter Indwelling Catheter # Voids 1 ABP, PAP, CO, CI - Last Documented Arterial Blood Pressure 114/64 - Exam No acute distress, oriented 3. Nasal O2 in place HEENT examination is grossly unremarkable. Mucous membranes are moist. No oral lesions. Teeth are in poor repair Neck supple. Full range of motion. No adenopathy thyromegaly or neck vein distention. Cardiovascular examination reveals regular rhythm rate. S1-S2 normal. No S3 or S4. No discernible murmur noted. Lungs reveal clear breath sounds, equal bilaterally. No adventitious lung sounds including wheezes rhonchi or crackles. Working with the I asked. Abdomen soft and and bowel sounds are heard. Mild abdominal tenderness particularly in the area of the left upper quadrant. Extremities are intact. No cyanosis clubbing or edema. Skin is without rash or lesion. Neurologic examination is brief but nonfocal. - Labs CBC & Chem 7: 11/04/17 04:15 11/04/17 04:15 Labs: Abnormal Lab Results - Last 24 Hours (Table) 11/02/17 11/03/17 11/03/17 Range/Units 01:04 17:40 19:15 WBC 13.2 H (3.8-10.6) k/uL RBC 3.74 L (3.80-5.40) m/uL Hgb 9.0 L (11.4-16.0) gm/dL Hct 30.1 L (34.0-46.0) % MCH 24.1 L (25.0-35.0) pg MCHC 30.0 L (31.0-37.0) g/dL RDW 17.9 H (11.5-15.5) % PT 12.5 H (9.0-12.0) sec INR 1.3 H (<1.2) Albumin (3.5-5.0) g/dL Crossmatch See Detail 11/04/17 11/04/17 11/04/17 Range/Units 04:15 04:15 04:15 WBC 13.5 H (3.8-10.6) k/uL RBC 3.70 L (3.80-5.40) m/uL Hgb 8.9 L (11.4-16.0) gm/dL Hct 29.7 L (34.0-46.0) % MCH 24.0 L (25.0-35.0) pg MCHC 29.8 L (31.0-37.0) g/dL RDW 18.6 H (11.5-15.5) % PT 12.5 H (9.0-12.0) sec INR 1.3 H (<1.2) Albumin 3.0 L (3.5-5.0) g/dL Crossmatch Microbiology - Last 24 Hours (Table) 11/02/17 09:25 Blood Culture - Preliminary Blood No Growth after 48 hours 11/02/17 09:35 Blood Culture Gram Stain - Preliminary Blood 11/02/17 09:35 Blood Culture - Final Blood Assessment and Plan Assessment: Assessment Splenic hemorrhage, secondary to splenic artery cystic necrosis, exacerbated by the patient's Coumadin induced coagulopathy, with the emergent splenectomy on . History of Marfan syndrome status post aortic valve replacement as well as a number of other major surgical procedures as it relates to this disease process. History of hepatitis C Multiple joint procedures Status post bypass grafting Multiple episodes of spontaneous pneumothorax History of CVA with residual right-sided weakness Previous history of pneumonia History of heart failure History of Arnold-Chiari malformation Scoliosis and pectus excavatum Plan: The patient was seen and evaluated by Dr. Pritchard. She is currently stable from the pulmonary and critical care standpoint. She could be transferred out of the intensive care unit today. We'll continue with bronchodilators and incentive spirometer. She is again encouraged regarding the importance of cough and deep breathing exercises. Cardiology is consulted regarding anticoagulation. We will increase her activity as tolerated. We'll continue to follow and make further recommendations based on her clinical status. I, the cosigning physician, performed a history & physical examination of the patient. Lungs sounds have few scattered rhonchi. Maintaining good O2 saturations in the 90s on 4 L/m per nasal cannula. Continue bronchodilators and incentive spirometry.. I discussed the assessment and plan of care with my nurse practitioner, Cassie Hyde. I attest to the above note as dictated by her.
--- NOTE | 2017-11-04 13:17 | P.PN ---
Subjective Postop day #1 splenectomy Patient is doing well at this time without any complaints. The patient underwent an emergent splenectomy yesterday secondary for a intraparenchymal splenic bleed. The patient has a history of Marfan syndrome and has had multiple surgical procedures including aortic valve replacement and bypass grafting. She is stable at this time however states she is hungry. Objective - Vital Signs Vital signs: Vital Signs Temp 97.8 F 11/04/17 08:00 Pulse 101 H 11/04/17 11:00 Resp 25 H 11/04/17 11:00 BP 138/69 11/03/17 22:00 Pulse Ox 94 L 11/04/17 11:00 Intake & Output 11/03/17 11/04/17 11/04/17 18:59 06:59 18:59 Intake Total 3672 576 847 Output Total 2495 860 505 Balance 1177 -284 342 Weight 57.2 kg 62.9 kg Intake: IV 2154 351 362 0.9 at KVO 80 190 100 0.9 for pressure bag 24 36 12 Vancomycin 1,000 mg In 250 125 250 Sodium Chloride 0.9% 250 ml @ 125 mls/hr IVPB Q8HR [facility] Rx#:[id number] Intake, IV Titration 125 475 Amount Magnesium Sulfate-D5w Pmx 200 1 gm In Dextrose/Water 1 100ml.bag @ 100 mls/hr IVPB Q1H [facility] Rx#: [id number] Potassium Chloride 10 meq 200 In Water For Injection 1 100ml.bag @ 100 mls/hr IVPB Q1H [facility] Rx#: [id number] Sodium Chloride 0.9% 1, 75 000 ml @ 75 mls/hr IV . [id number] [facility] Rx#:[id number] Vancomycin 1,000 mg In 125 Sodium Chloride 0.9% 250 ml @ 125 mls/hr IVPB Q8HR [facility] Rx#:[id number] Oral 100 10 Blood Product 1518 Ffp 24 Cpd Unit 288 [id number] Ffp 24 Cpd Unit 322 [id number] Rc As-1 Unit 310 [id number] Rc As-1 Unit 310 [id number] Rc As-1 Unit 288 [id number] Output: Drainage 125 35 Left Lower Abdomen 125 35 Urine 970 825 505 Estimated Blood Loss 1400 Other: Voiding Method Indwelling Catheter Indwelling Catheter Indwelling Catheter # Voids 1 ABP, PAP, CO, CI - Last Documented Arterial Blood Pressure 114/64 - Constitutional General appearance: Present: thin - Respiratory Respiratory: bilateral: CTA - Cardiovascular Rhythm: regular Heart sounds: normal: S1, S2 - Gastrointestinal Gastrointestinal Comment(s): Incision clean and dry Absent bowel sounds TEDDY drain 35 mL serous fluid - Psychiatric Psychiatric: Present: A&O x's 3, appropriate affect, intact judgment & insight - Labs CBC & Chem 7: 11/04/17 04:15 11/04/17 04:15 Labs: Abnormal Lab Results - Last 24 Hours (Table) 11/02/17 11/03/17 11/03/17 Range/Units 01:04 17:40 19:15 WBC 13.2 H (3.8-10.6) k/uL RBC 3.74 L (3.80-5.40) m/uL Hgb 9.0 L (11.4-16.0) gm/dL Hct 30.1 L (34.0-46.0) % MCH 24.1 L (25.0-35.0) pg MCHC 30.0 L (31.0-37.0) g/dL RDW 17.9 H (11.5-15.5) % PT 12.5 H (9.0-12.0) sec INR 1.3 H (<1.2) Albumin (3.5-5.0) g/dL Crossmatch See Detail 11/04/17 11/04/17 11/04/17 Range/Units 04:15 04:15 04:15 WBC 13.5 H (3.8-10.6) k/uL RBC 3.70 L (3.80-5.40) m/uL Hgb 8.9 L (11.4-16.0) gm/dL Hct 29.7 L (34.0-46.0) % MCH 24.0 L (25.0-35.0) pg MCHC 29.8 L (31.0-37.0) g/dL RDW 18.6 H (11.5-15.5) % PT 12.5 H (9.0-12.0) sec INR 1.3 H (<1.2) Albumin 3.0 L (3.5-5.0) g/dL Crossmatch Microbiology - Last 24 Hours (Table) 11/02/17 09:35 Blood Culture Gram Stain - Preliminary Blood 11/02/17 09:25 Blood Culture - Preliminary Blood No Growth after 48 hours 11/02/17 09:35 Blood Culture - Final Blood Assessment and Plan Plan: Impression/plan: 1. Patient postop day #1 splenectomy 2. History of Marfan's 3. History of prosthetic heart valve to restart anticoagulation as per cardiology/INR 1.3 4. History of hepatitis C 5. Multiple joint procedures 6. Status post bypass grafting 7. Multiple episodes of spontaneous pneumothorax 8. History of Arnold-Chiari malformation
--- NOTE | 2017-11-04 17:13 | P.PN ---
Subjective Progress Note Date: 11/04/17 (Delayed charting seen at 9AM) Principal diagnosis: abdominal pain Patient is a 32-year-old female with a past medical history of Marfan syndrome, multiple aortic valve replacement on Coumadin, chronic pain, and scoliosis who presented to the emergency department with complaints of abdominal pain. In the emergency department she underwent an extensive evaluation. Her initial vital signs are found to be within normal limits. Initial laboratory analysis showed a significant drop in her hemoglobin. Her hemoglobin has chronically been between 9.5-11 for the past 2 months and prior to that was in the normal range. Her INR was found to be greater than 9. 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 There is concern about reversing her INR and she has a mechanical valve. She did not appear to be actively bleeding. After Dr. Centeno from surgery was consulted. She was made nothing by mouth and admitted to the ICU the selective care overflow. Since her last discharge the patient has been assigned a court appointed guardian. She has also been moved into a long term. It is likely that she had not been taking her Coumadin prior and with moving to the long term began taking this medication on a regular basis and therefore became supratherapeutic. On the morning after admission patient had significant lethargy despite complaining of pain. She states that she had not slept well the night prior. On repeat CBC her hemoglobin had actually increased from 7.7-8.4. Dr. Centeno reviewed CT scan with the radiologist and there was concern for active splenic hemorrhage. She was given additional vitamin K as well as FFP. She was started on serial CBCs serial PT/INRs. Her INR had decreased to 3.4 by 9 p.m. on 11/02 she was ordered additional FFP. Suddenly on the morning of 11/03 at approximately 4 AM she started having worsening of her abdominal pain. Stat hemoglobin and INR were rechecked. Her hemoglobin had dropped to 5.9 and INR had improved to 1.9. She was ordered 2 units of packed red blood cells and additional 2 units of FFP. Repeat CT abdomen and pelvis was ordered which showed worsening enlargement of the spleen and hemoperitoneum. Dr. Boutt emergently to the patient to operating room and performed a open splenectomy. As of the afternoon of 11/03 she had a total of 3 units of packed red blood cells and 5 units of FFP. She returned to the ICU intubated. She is awake and following commands and was subsequently extubated. Her HgB and INR remained stable after surgery she was seen by cardiology. Patient seen and examined at bedside. States that the morphine is not controlling her pain. Denies any shortness of breath or chest pain. Not feeling lightheaded or dizzy. She is feeling hungry and wants ice chips. We had extensive discussions about why she is not being allowed to eat. Again patient has a court-appointed guardian who makes all medical decisions for her. Both of her parents have . Objective - Vital Signs Vital signs: Vital Signs Temp 97.7 F 11/04/17 16:00 Pulse 100 11/04/17 16:00 Resp 18 11/04/17 16:00 BP 112/60 11/04/17 16:00 Pulse Ox 77 L 11/04/17 16:00 Intake & Output 11/03/17 11/04/17 11/04/17 18:59 06:59 18:59 Intake Total 3672 576 847 Output Total 2495 860 530 Balance 1177 -284 317 Weight 57.2 kg 62.9 kg Intake: IV 2154 351 362 0.9 at KVO 80 190 100 0.9 for pressure bag 24 36 12 Vancomycin 1,000 mg In 250 125 250 Sodium Chloride 0.9% 250 ml @ 125 mls/hr IVPB Q8HR [facility] Rx#:[id number] Intake, IV Titration 125 475 Amount Magnesium Sulfate-D5w Pmx 200 1 gm In Dextrose/Water 1 100ml.bag @ 100 mls/hr IVPB Q1H [facility] Rx#: [id number] Potassium Chloride 10 meq 200 In Water For Injection 1 100ml.bag @ 100 mls/hr IVPB Q1H [facility] Rx#: [id number] Sodium Chloride 0.9% 1, 75 000 ml @ 75 mls/hr IV . [id number] [facility] Rx#:[id number] Vancomycin 1,000 mg In 125 Sodium Chloride 0.9% 250 ml @ 125 mls/hr IVPB Q8HR [facility] Rx#:[id number] Oral 100 10 Blood Product 1518 Ffp 24 Cpd Unit 288 [id number] Ffp 24 Cpd Unit 322 [id number] Rc As-1 Unit 310 [id number] Rc As-1 Unit 310 [id number] Rc As-1 Unit 288 [id number] Output: Drainage 125 35 25 Left Lower Abdomen 125 35 25 Urine 970 825 505 Estimated Blood Loss 1400 Other: Voiding Method Indwelling Catheter Indwelling Catheter Indwelling Catheter # Voids 1 ABP, PAP, CO, CI - Last Documented Arterial Blood Pressure 114/64 - Exam General: Ill appearing, no distress, appears at stated age Derm: warm, dry, no erythema over right ankle Head: atraumatic, normocephalic, symmetric Eyes: EOMI, no lid lag, anicteric sclera Mouth: no lip lesion, mucus membranes moist Cardiovascular: S1S2 reg, no murmur, positive posterior tibial pulse bilateral, Lungs: Decreased breath sounds bilaterally, no rhonchi, no rales , no accessory muscle use Abdominal: Absent bowel sounds, distended soft, + tender to palpation left upper quadrant, no guarding, dressing in place over left abdomen, TEDDY drain in place with serosanguineous fluid Ext: + gross muscle atrophy, trace edema RIght ankle, no contractures, levoscoliosis Neuro: CN II-XI grossly intact, no focal neuro deficits Psych: Alert, oriented, flat affect - Labs CBC & Chem 7: 11/04/17 04:15 11/04/17 04:15 Labs: Abnormal Lab Results - Last 24 Hours (Table) 11/03/17 11/03/17 11/04/17 Range/Units 17:40 19:15 04:15 WBC 13.2 H (3.8-10.6) k/uL RBC 3.74 L (3.80-5.40) m/uL Hgb 9.0 L (11.4-16.0) gm/dL Hct 30.1 L (34.0-46.0) % MCH 24.1 L (25.0-35.0) pg MCHC 30.0 L (31.0-37.0) g/dL RDW 17.9 H (11.5-15.5) % PT 12.5 H 12.5 H (9.0-12.0) sec INR 1.3 H 1.3 H (<1.2) Albumin (3.5-5.0) g/dL 11/04/17 11/04/17 Range/Units 04:15 04:15 WBC 13.5 H (3.8-10.6) k/uL RBC 3.70 L (3.80-5.40) m/uL Hgb 8.9 L (11.4-16.0) gm/dL Hct 29.7 L (34.0-46.0) % MCH 24.0 L (25.0-35.0) pg MCHC 29.8 L (31.0-37.0) g/dL RDW 18.6 H (11.5-15.5) % PT (9.0-12.0) sec INR (<1.2) Albumin 3.0 L (3.5-5.0) g/dL Microbiology - Last 24 Hours (Table) 11/02/17 09:35 Blood Culture Gram Stain - Preliminary Blood 11/02/17 09:25 Blood Culture - Preliminary Blood No Growth after 48 hours 11/02/17 09:35 Blood Culture - Final Blood Assessment and Plan Assessment: Splenic hemorrhage status post open splenectomy - Management as per surgical team -Has received 3 units of blood and 5 units of FFP -Pain control -Antiemetics -Bed rest until okayed by surgery -Avoid additional anticoagulant until approved by surgery. -We will need appointment with Dr. Tyler in 14 days after splenectomy for administration of additional vaccine. Patient will need both pneumonia shots as well as meningitis vaccinations. She will also need possible influenza type B if that has not been administered as well as Tdap. Literature showed a fever given before 14 days she may need a repeat immunization. We'll attempt to make appointment for her prior to discharge. Acute blood loss anemia, stable -Status post 3 units of packed red blood cells -Follow CBC -Additional units are currently on hold Supratherapeutic INR with mechanical heart valve-now subtherapeutic as has her first -Patient is status post 5 mg of vitamin K as well as 5 units of FFP. She does have a history of to mechanical aortic valve (X2) with a history of valvular stenosis and subtherapeutic Coumadin levels leading to stroke. She is also had aortic root repair. - Cardiology consultation - Follow INRs closely and monitor for signs of valve malfunction. Probable early cellulitis of right lower extremity -Vancomycin -Clinically improving. Would treat for an additional 3 days. Compensated congestive heart failure, ejection fraction 55-60% -No indication for beta madelaine or FROYLAN inhibitor -Cardiology recommendations -Follow fluid status closely New nodular infiltrate -Stat acute abdominal series was ordered this morning -Pulmonary consultation Chronic: Osteoarthritis Severe kyphosis and scoliosis Marfan syndrome History of hepatitis C History of IVDA Multiple episodes of spontaneous pneumothorax and history of lobectomy DVT prophylaxis: INR elevated Discussed with: Patient, nursing Anticipated discharge: Undetermined Anticipated discharge place: Undetermined A total of 35 minutes was spent on the care of this complex patient more than 50 % of the time was spent in counseling and care coordination.
[2017-11-05] MEDS: MORPHINE SULFATE 4 MG/ML SYRINGE IVP PRN ×7 (01:12→21:35)
[2017-11-05 06:03] LABS: Anisocytosis Slight; HCT 26.9 % (34.0-46.0); HGB 7.9 gm/dL (11.4-16.0); Hypochromasia Marked; MCH 24.3 pg (25.0-35.0); MCHC 29.2 g/dL (31.0-37.0); MCV 83.2 fL (80.0-100.0); Mean Platelet Volume 6.8; Platelet Count 330 k/uL (150-450); Poikilocytosis Marked; RBC 3.23 m/uL (3.80-5.40); RDW 19.1 % (11.5-15.5); WBC 13.5 k/uL (3.8-10.6)
[2017-11-05 06:10] LABS: Anion Gap 9 mmol/L; Blood Urea Nitrogen 8 mg/dL (7-17); Calcium 8.3 mg/dL (8.4-10.2); Carbon Dioxide 21 mmol/L (22-30); Chloride 107 mmol/L (98-107); Glucose 67 mg/dL (74-99); Magnesium 1.6 mg/dL (1.6-2.3); Sodium 137 mmol/L (137-145)
[2017-11-05 06:13] LABS: INR 1.2 (<1.2); Prothrombin Time 11.6 sec (9.0-12.0)
[2017-11-05] MEDS: IPRATROPIUM-ALBUTEROL 3 ML NEB INHALATION SCH ×3 (07:43→19:57)
[2017-11-05] MEDS: VANCOMYCIN 1,000 MG in SODIUM CHLORIDE 0.9% 250 ML IVPB SCH ×2 (08:22→15:15)
[2017-11-05] MEDS: DEXTROSE 5%-0.45% NACL 1,000 ML IV SCH ×2 (08:22→21:36)
[2017-11-05] MEDS: PANTOPRAZOLE 40 MG/10 ML VIAL IVP SCH (08:23)
[2017-11-05] MEDS: MAGNESIUM SULFATE-D5W PMX 1 GM in DEXTROSE/WATER 1 100ML.BAG IVPB SCH ×2 (10:58→12:11)
--- NOTE | 2017-11-05 11:27 | P.PN ---
Subjective Progress Note Date: 11/05/17 Postop day #2 splenectomy Patient is doing well at this time without any complaints. The patient underwent an emergent splenectomy Monday secondary for an intraparenchymal splenic bleed. The patient has a history of Marfan syndrome and has had multiple surgical procedures including aortic valve replacement and bypass grafting. She is stable at this time however states she is hungry. She has passed flatus. She has a TEDDY drain in the upper left abdomen this is below 30 mL of serous fluid. Her hemoglobin today is 7.9. White count 13.5. Objective - Vital Signs Vital signs: Vital Signs Temp 98.1 F 11/05/17 08:00 Pulse 98 11/05/17 08:00 Resp 18 11/05/17 08:00 BP 129/66 11/05/17 08:00 Pulse Ox 90 L 11/05/17 08:00 Intake & Output 11/04/17 11/05/17 11/05/17 18:59 06:59 18:59 Intake Total 847 Output Total 530 30 Balance 317 -30 Weight 66 kg Intake: IV 362 0.9 at KVO 100 0.9 for pressure bag 12 Vancomycin 1,000 mg In 250 Sodium Chloride 0.9% 250 ml @ 125 mls/hr IVPB Q8HR [facility] Rx#:[id number] Intake, IV Titration 475 Amount Magnesium Sulfate-D5w Pmx 200 1 gm In Dextrose/Water 1 100ml.bag @ 100 mls/hr IVPB Q1H [facility] Rx#: [id number] Potassium Chloride 10 meq 200 In Water For Injection 1 100ml.bag @ 100 mls/hr IVPB Q1H [facility] Rx#: [id number] Sodium Chloride 0.9% 1, 75 000 ml @ 75 mls/hr IV . [id number] [facility] Rx#:[id number] Oral 10 Output: Drainage 25 30 Left Lower Abdomen 25 30 Urine 505 Other: Voiding Method Incontinent Diaper Diaper Incontinent Incontinent # Voids 2 1 ABP, PAP, CO, CI - Last Documented Arterial Blood Pressure 114/64 - Constitutional General appearance: Present: thin - Respiratory Details: Decreased breath sounds at the bases - Cardiovascular Heart sounds: normal: S1, S2 - Gastrointestinal Gastrointestinal Comment(s): Incision clean and dry TEDDY drain left upper quadrant approximately 30 mL of serous fluid. General gastrointestinal: Present: decreased bowel sounds - Labs CBC & Chem 7: 11/05/17 05:39 11/05/17 05:39 Labs: Abnormal Lab Results - Last 24 Hours (Table) 11/02/17 11/05/17 11/05/17 Range/Units 01:04 05:39 05:39 WBC (3.8-10.6) k/uL RBC (3.80-5.40) m/uL Hgb (11.4-16.0) gm/dL Hct (34.0-46.0) % MCH (25.0-35.0) pg MCHC (31.0-37.0) g/dL RDW (11.5-15.5) % INR 1.2 H (<1.2) Carbon Dioxide 21 L (22-30) mmol/L Creatinine 0.43 L (0.52-1.04) mg/dL Glucose 67 L (74-99) mg/dL Calcium 8.3 L (8.4-10.2) mg/dL Crossmatch See Detail 11/05/17 Range/Units 05:39 WBC 13.5 H (3.8-10.6) k/uL RBC 3.23 L (3.80-5.40) m/uL Hgb 7.9 L (11.4-16.0) gm/dL Hct 26.9 L (34.0-46.0) % MCH 24.3 L (25.0-35.0) pg MCHC 29.2 L (31.0-37.0) g/dL RDW 19.1 H (11.5-15.5) % INR (<1.2) Carbon Dioxide (22-30) mmol/L Creatinine (0.52-1.04) mg/dL Glucose (74-99) mg/dL Calcium (8.4-10.2) mg/dL Crossmatch Microbiology - Last 24 Hours (Table) 11/02/17 09:35 Blood Culture Gram Stain - Preliminary Blood 11/02/17 09:25 Blood Culture - Preliminary Blood No Growth after 48 hours 11/02/17 09:35 Blood Culture - Final Blood Assessment and Plan Plan: Impression/plan: 1. Patient postop day #2 splenectomy 2. History of Marfan's 3. History of prosthetic heart valve to restart anticoagulation as per cardiology/INR 1.3 4. History of hepatitis C 5. Multiple joint procedures 6. Status post bypass grafting 7. Multiple episodes of spontaneous pneumothorax 8. History of Arnold-Chiari malformation 9. Patient remains on vancomycin appreciate note from [facility] 10. Will have a with Dr. Tyler after discharge for pneumonia and meningitis vaccination 11. Patient patient has had some flatus will start clear liquids
[2017-11-05 11:41] LABS: Anisocytosis Slight; HCT 27.4 % (34.0-46.0); HGB 8.1 gm/dL (11.4-16.0); Hypochromasia Marked; MCH 24.7 pg (25.0-35.0); MCHC 29.7 g/dL (31.0-37.0); MCV 83.1 fL (80.0-100.0); Mean Platelet Volume 6.8; Platelet Count 354 k/uL (150-450); Poikilocytosis Marked; RDW 19.2 % (11.5-15.5); WBC 16.5 k/uL (3.8-10.6)
--- NOTE | 2017-11-05 13:06 | ECHOF ---
Referral Reason:hx of valve replacement MEASUREMENTS -------- HEIGHT: 180.3 cm WEIGHT: 62.6 kg BP: 114/64 RVIDd: 3.8 cm (< 3.3) IVSd: 1.2 cm (0.6 - 1.1) LVIDd: 4.7 cm (3.9 - 5.3) LVPWd: 1.2 cm (0.6 - 1.1) IVSs: 1.6 cm LVIDs: 2.7 cm LVPWs: 1.6 cm LAESV Index (A-L): 43.83 ml/m EPSS: 0.6 cm AV maxP.46 mmHg AV meanP.25 mmHg RAP: 5.00 mmHg RVSP: 65.74 mmHg MV EF SLOPE: 145.58 mm/s (70 - 150) MV EXCURSION: 1.68 cm (> 18.000) FINDINGS -------- Resting tachycardia (HR>100bpm). This was a technically good study. The left ventricular size is normal. There is mild concentric left ventricular hypertrophy. Overa ll left ventricular systolic function is normal with, an EF between 55 - 60 %. The right ventricle is severely enlarged. LA is severely dilated >40 ml/m2 The right atrium is markedly enlarged. There is no evidence of aortic regurgitation. Peak/mean gradient across the Aortic Valve is 30.46mm Hg / 18.25mmHg. Normally functioning mechanical prosthetic valve. The mitral valve leaflets are moderately thickened. Mild mitral annular calcification present. Se jesus mitral regurgitation is present. Severe tricuspid regurgitation present. There is moderate to severe pulmonary hypertension. The r ight ventricular systolic pressure, as measured by Doppler, is 65.74mmHg. Moderate pulmonic regurgitation. The aortic root size is normal. IVC Not well visulized. There is no pericardial effusion. Large Pleural Effusion. CONCLUSIONS -------- 1. Resting tachycardia (HR>100bpm). 2. This was a technically good study. 3. The left ventricular size is normal. 4. There is mild concentric left ventricular hypertrophy. 5. Overall left ventricular systolic function is normal with, an EF between 55 - 60 %. 6. The right ventricle is severely enlarged. 7. LA is severely dilated >40 ml/m2 8. The right atrium is markedly enlarged. 9. Peak/mean gradient across the Aortic Valve is 30.46mmHg / 18.25mmHg. 10. Normally functioning mechanical prosthetic valve. 11. The mitral valve leaflets are moderately thickened. 12. Mild mitral annular calcification present. 13. Severe mitral regurgitation is present. 14. Severe tricuspid regurgitation present. 15. There is moderate to severe pulmonary hypertension. 16. The right ventricular systolic pressure, as measured by Doppler, is 65.74mmHg. 17. Moderate pulmonic regurgitation. 18. The aortic root size is normal. 19. IVC Not well visulized. 20. There is no pericardial effusion. 21. Large Pleural Effusion. CARDIOLOGY NURSE PRACTITIONER: Dmitry Martinez RDCS
--- NOTE | 2017-11-05 13:53 | P.PN ---
Subjective Progress Note Date: 11/05/17 Principal diagnosis: abdominal pain Patient is a 32-year-old female with a past medical history of Marfan syndrome, multiple aortic valve replacement on Coumadin, chronic pain, and scoliosis who presented to the emergency department with complaints of abdominal pain. In the emergency department she underwent an extensive evaluation. Her initial vital signs are found to be within normal limits. Initial laboratory analysis showed a significant drop in her hemoglobin. Her hemoglobin has chronically been between 9.5-11 for the past 2 months and prior to that was in the normal range. Her INR was found to be greater than 9. 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 There is concern about reversing her INR and she has a mechanical valve. She did not appear to be actively bleeding. After Dr. eCnteno from surgery was consulted. She was made nothing by mouth and admitted to the ICU the selective care overflow. Since her last discharge the patient has been assigned a court appointed guardian. She has also been moved into a care home. It is likely that she had not been taking her Coumadin prior and with moving to the care home began taking this medication on a regular basis and therefore became supratherapeutic. On the morning after admission patient had significant lethargy despite complaining of pain. She states that she had not slept well the night prior. On repeat CBC her hemoglobin had actually increased from 7.7-8.4. Dr. Centeno reviewed CT scan with the radiologist and there was concern for active splenic hemorrhage. She was given additional vitamin K as well as FFP. She was started on serial CBCs serial PT/INRs. Her INR had decreased to 3.4 by 9 p.m. on 11/02 she was ordered additional FFP. Suddenly on the morning of 11/03 at approximately 4 AM she started having worsening of her abdominal pain. Stat hemoglobin and INR were rechecked. Her hemoglobin had dropped to 5.9 and INR had improved to 1.9. She was ordered 2 units of packed red blood cells and additional 2 units of FFP. Repeat CT abdomen and pelvis was ordered which showed worsening enlargement of the spleen and hemoperitoneum. Dr. Centeno emergently to the patient to operating room and performed a open splenectomy. As of the afternoon of 11/03 she had a total of 3 units of packed red blood cells and 5 units of FFP. She returned to the ICU intubated. She was awake and following commands and was subsequently extubated. Her HgB and INR remained stable after surgery she was seen by cardiology. She has been maintained off anticoagulation. She'll need to be monitored closely for risk of valvular thrombosis. Patient seen and examined at bedside. Pain is slightly better controlled today. She was feeling better and got up today and cleaned up. She now feels fatigued and slightly shortness breath. She did not have a bowel movement yesterday. She continues to ask for more Ice chips only I again reiterated the reason she cannot have any. Her glucose was slightly low this morning and she states she did feel extremely tired and a bit shaky. She feels better now that she is started on fluids containing glucose. Objective - Vital Signs Vital signs: Vital Signs Temp 97.4 F L 11/05/17 12:00 Pulse 98 11/05/17 12:31 Resp 18 11/05/17 12:00 BP 137/70 11/05/17 12:00 Pulse Ox 93 L 11/05/17 12:00 Intake & Output 11/04/17 11/05/17 11/05/17 18:59 06:59 18:59 Intake Total 847 Output Total 530 30 40 Balance 317 -30 -40 Weight 66 kg Intake: IV 362 0.9 at KVO 100 0.9 for pressure bag 12 Vancomycin 1,000 mg In 250 Sodium Chloride 0.9% 250 ml @ 125 mls/hr IVPB Q8HR [facility] Rx#:[id number] Intake, IV Titration 475 Amount Magnesium Sulfate-D5w Pmx 200 1 gm In Dextrose/Water 1 100ml.bag @ 100 mls/hr IVPB Q1H [facility] Rx#: [id number] Potassium Chloride 10 meq 200 In Water For Injection 1 100ml.bag @ 100 mls/hr IVPB Q1H [facility] Rx#: [id number] Sodium Chloride 0.9% 1, 75 000 ml @ 75 mls/hr IV . [id number] [facility] Rx#:[id number] Oral 10 Output: Drainage 25 30 40 Left Lower Abdomen 25 30 40 Urine 505 Other: Voiding Method Incontinent Diaper Diaper Incontinent Incontinent # Voids 2 1 ABP, PAP, CO, CI - Last Documented Arterial Blood Pressure 114/64 - Labs CBC & Chem 7: 11/05/17 11:17 11/05/17 05:39 Labs: Abnormal Lab Results - Last 24 Hours (Table) 11/02/17 11/05/17 11/05/17 Range/Units 01:04 05:39 05:39 WBC (3.8-10.6) k/uL RBC (3.80-5.40) m/uL Hgb (11.4-16.0) gm/dL Hct (34.0-46.0) % MCH (25.0-35.0) pg MCHC (31.0-37.0) g/dL RDW (11.5-15.5) % INR 1.2 H (<1.2) Carbon Dioxide 21 L (22-30) mmol/L Creatinine 0.43 L (0.52-1.04) mg/dL Glucose 67 L (74-99) mg/dL Calcium 8.3 L (8.4-10.2) mg/dL Crossmatch See Detail 11/05/17 11/05/17 Range/Units 05:39 11:17 WBC 13.5 H 16.5 H (3.8-10.6) k/uL RBC 3.23 L 3.30 L (3.80-5.40) m/uL Hgb 7.9 L 8.1 L (11.4-16.0) gm/dL Hct 26.9 L 27.4 L (34.0-46.0) % MCH 24.3 L 24.7 L (25.0-35.0) pg MCHC 29.2 L 29.7 L (31.0-37.0) g/dL RDW 19.1 H 19.2 H (11.5-15.5) % INR (<1.2) Carbon Dioxide (22-30) mmol/L Creatinine (0.52-1.04) mg/dL Glucose (74-99) mg/dL Calcium (8.4-10.2) mg/dL Crossmatch Microbiology - Last 24 Hours (Table) 11/02/17 09:25 Blood Culture - Preliminary Blood No Growth after 72 hours 11/02/17 09:35 Blood Culture Gram Stain - Preliminary Blood
--- NOTE | 2017-11-05 14:21 | PN ---
PROGRESS NOTE This patient's medical records over the last 24 hours reviewed. The patient is status post splenectomy. Patient remains hemodynamically stable. Blood pressure is 129/66 mmHg. Respiratory not labored. Heart sounds prosthetic sounds are well heard. Lungs are clear to auscultation and percussion. Patient's hemoglobin is 8.1, and creatinine is normal. We will continue the current medications and we will resume the Coumadin when it is okay with Dr. eCnteno. MMCHRISTINEL / DENYN: [id number] /
--- NOTE | 2017-11-05 14:23 | XR ---
EXAMINATION TYPE: XR chest 1V portable DATE OF EXAM: 11/05/2017 COMPARISON: NONE HISTORY: Pneumonia TECHNIQUE: Single frontal view of the chest is obtained. FINDINGS: There is pulmonary vascular congestion. Heart is enlarged. There is blunting of costophren ic angles. There are sternal wires. There are chest leads. There is upper thoracic levoscoliosis. The re is lower thoracic dextroscoliosis. IMPRESSION: Congestive heart failure with pleural effusions and lower lobe pulmonary infiltrates. Ch est x-ray appears worse than last exam.
[2017-11-05 20:32] LABS: Glucose,Whole Blood 109 mg/dL (75-99)
[2017-11-06] MEDS: MORPHINE SULFATE 4 MG/ML SYRINGE IVP PRN ×8 (00:35→23:03)
[2017-11-06] MEDS: VANCOMYCIN 1,000 MG in SODIUM CHLORIDE 0.9% 250 ML IVPB SCH ×4 (00:36→23:03)
[2017-11-06 02:13] LABS: Glucose,Whole Blood 98 mg/dL (75-99)
[2017-11-06 06:38] LABS: Anisocytosis Slight; HCT 30.6 % (34.0-46.0); HGB 8.8 gm/dL (11.4-16.0); Hypochromasia Marked; MCH 24.4 pg (25.0-35.0); MCHC 28.8 g/dL (31.0-37.0); MCV 84.9 fL (80.0-100.0); Mean Platelet Volume 7.1; Platelet Count 428 k/uL (150-450); Poikilocytosis Moderate; RDW 19.4 % (11.5-15.5); WBC 14.6 k/uL (3.8-10.6)
[2017-11-06 06:40] LABS: INR 1.3 (<1.2); Prothrombin Time 12.4 sec (9.0-12.0)
[2017-11-06 06:55] LABS: Anion Gap 8 mmol/L; Calcium 8.1 mg/dL (8.4-10.2); Carbon Dioxide 24 mmol/L (22-30); Chloride 103 mmol/L (98-107); Glucose 96 mg/dL (74-99); Sodium 135 mmol/L (137-145); Total Bilirubin 1.8 mg/dL (0.2-1.3); Total Protein 6.8 g/dL (6.3-8.2)
[2017-11-06 06:58] LABS: ALT 29 U/L (9-52); AST 54 U/L (14-36); Alkaline Phosphatase 114 U/L (38-126); Blood Urea Nitrogen 5 mg/dL (7-17); Magnesium 1.6 mg/dL (1.6-2.3); Phosphorus 3.6 mg/dL (2.5-4.5)
[2017-11-06] MEDS ORDERED: VANCOMYCIN TROUGH DUE 1 EACH MISC MISCELLANE ONE (07:00)
[2017-11-06] MEDS: IPRATROPIUM-ALBUTEROL 3 ML NEB INHALATION SCH ×3 (07:53→21:05)
[2017-11-06] MEDS: PANTOPRAZOLE 40 MG/10 ML VIAL IVP SCH (08:10)
[2017-11-06] MEDS: FUROSEMIDE 10 MG/ML 2 ML VIAL IV SCH (09:31)
--- NOTE | 2017-11-06 09:37 | P.PN ---
Progress Note - Text Patient interviewed and examined. Was on anticoagulation for mechanical aortic valve, known Marfan's, splenic hemorrhage status If okay with Dr. Centeno, we will start anticoagulation. Coumadin only indicated May go to the medical floor Received full dictation by Dr. rodriguez
[2017-11-06] MEDS: CEFEPIME 1 GM in SODIUM CHLORIDE 0.9% 50 ML IVPB SCH ×2 (10:48→20:05)
[2017-11-06] MEDS: DEXTROSE 5%-0.45% NACL 1,000 ML IV SCH (10:48)
--- NOTE | 2017-11-06 11:42 | P.CONS ---
History of Present Illness - Reason for Consult Consult date: 11/06/17 Group D enterococcus blood culture - History of Present Illness This is a 32-year-old female with significant past health history of Marfan syndrome, multiple aortic valve replacement starting on chronic Coumadin , history of hepatitis C. Patient presented to [facility] emergency center on November 02 with complaints of abdominal pain. Her INR was at 9. 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 She was initially admitted into intensive care. Patient subsequently developed lethargy and due to concern for active splenic hemorrhage she was given additional vitamin K and fresh frozen plasma and on the morning of November 03 she developed worsening abdominal pain and her hemoglobin had dropped down to 5.9 and INR was 1.9. She got underwent a repeat CT of the abdomen and pelvis showing worsening enlargement of the spleen and hemoperitoneum. Patient was taken to the OR emergently by Dr. Centeno and performed an open splenectomy. Patient returned to the ICU intubated and was subsequently extubated and transferred to the selective care unit. Her most recent chest x-ray yesterday showed congestive heart failure with pleural effusions and lower lobe pulmonary infiltrates. Chest x-ray appears worse from last exam. She has been seen and followed by cardiology and Coumadin is to be resumed once cleared by Dr. Centeno. Patient was also followed by Dr. Pritchard for intensive care management. Regarding blood cultures, patient had 1 drawn on November 02 at 920 5 in the morning that is showing no growth after 72 hours. Second blood culture done at 935 showing group D enterococcus. Patient has been afebrile since admission. Initial white count was 9.3 currently at 14.6. Patient has been on IV antibiotics in the form of vancomycin since November 02 and cefepime was started today. Patient is currently on a clear liquid diet. Patient states she is passing gas but has not had a bowel movement. She is complaining of significant abdominal pain. She denies any difficulty urinating. She has a TEDDY drain with serosanguineous fluid. She does complain of a little shortness of breath and the cough is nonproductive. Review of Systems All systems: negative Constitutional: Denies chills, Denies fever Eyes: denies blurred vision, denies pain Ears, nose, mouth and throat: Denies headache, Denies sore throat Cardiovascular: Reports shortness of breath, Denies chest pain Respiratory: Reports cough, Reports dyspnea, Denies cough with sputum, Denies excessive sputum, Denies hemoptysis, Denies home oxygen, Denies wheezing Gastrointestinal: Reports abdominal pain, Denies diarrhea, Denies nausea, Denies vomiting Genitourinary: Denies dysuria, Denies hematuria, Denies urinary frequency Musculoskeletal: Denies myalgias Integumentary: Denies pruritus, Denies rash Neurological: Denies numbness, Denies weakness Psychiatric: Denies anxiety, Denies depression Endocrine: Denies fatigue, Denies weight change Past Medical History Past Medical History: Heart Failure, CVA/TIA, Neurologic Disorder, Osteoarthritis (OA), Pneumonia Additional Past Medical History / Comment(s): Stroke with residual right-sided weakness 2017, marfan's syndrome, ArnoldChiari malformation, spontaneous pneumothorax x 21, scoliosis and pectus excavatum secondary to Marfan's, chronic back pain, bilateral leg pain, sinus infections, STATED HAS POOR CIRCULATION, viral meningitis, HEP C. History of Any Multi-Drug Resistant Organisms: None Reported, MRSA Year Discovered:: 05/05/2010 MDRO Source:: back per patient Past Surgical History: Cardiac Valve Replacement, Coronary Bypass/CABG, Joint Replacement Additional Past Surgical History / Comment(s): 10-27-16 I&D RT FOREARM ABCESS, left upper lobectomy age 16, left hip fracture-ORIF, right foot corrective surgery, R shoulder surgery following injury, CABG x4 vessel, aortic root graft , aortic valve replaced as child (2 separate surgeries last 10 years old), tiffani lens removed. Past Anesthesia/Blood Transfusion Reactions: No Reported Reaction Past Psychological History: Anxiety Smoking Status: Current every day smoker Past Alcohol Use History: None Reported Additional Past Alcohol Use History / Comment(s): Patient is smoker of one pack per day since she was 10 years of age. She denies any medical marijuana, marijuana, street drug or alcohol use. Patient is currently on disability. She recently obtained a public guardian and is living in a prison. Past Drug Use History: None Reported - Past Family History Father Additional Family Medical History / Comment(s): Father is with history of AIDS. Mother Family Medical History: Diabetes Mellitus Additional Family Medical History / Comment(s): Mother at age 49 from liver cirrhosis secondary to alcohol abuse. Brother(s) Additional Family Medical History / Comment(s): Patient has one brother with no major medical problems. Patient does not have any sisters. Patient does not have any children. Medications and Allergies Home Medications Medication Instructions Recorded Confirmed Type Baclofen [Lioresal] 10 mg PO QID #60 tab 07/31/17 11/01/17 Rx Gabapentin [Neurontin] 400 mg PO TID #90 cap 10/02/17 11/01/17 Rx Ibuprofen [Motrin] 600 mg PO Q6HR PRN #20 tab 10/16/17 11/01/17 Rx Warfarin [Coumadin] 7.5 mg PO DAILY@00 10/16/17 11/01/17 History Albuterol Inhaler [Ventolin Hfa 2 puff INHALATION RT-Q8H PRN 11/01/17 11/01/17 History Inhaler] Cholecalciferol [Vitamin D3] 5,000 unit PO DAILY@79911/01/17 11/01/17 History DULoxetine HCL [Cymbalta] 60 mg PO DAILY@79911/01/17 11/01/17 History Ferrous Sulfate [Feosol] 325 mg PO HS@209911/01/17 11/01/17 History Imipramine [Tofranil] 50 mg PO HS@209911/01/17 11/01/17 History OLANZapine [ZyPREXA] 15 mg PO HS@209911/01/17 11/01/17 History Sulfamethox-Tmp 800-160Mg [Bactrim 1 tab PO Q12HR 11/01/17 11/01/17 History DS 800-160 mg] Allergies Allergy/AdvReac Type Severity Reaction Status Date / Time chlordiazepoxide HCl Allergy Unknown Verified 11/01/17 22:17 [From Librium] Penicillins Allergy Rash/Hives Verified 11/01/17 22:17 prochlorperazine edisylate Allergy PANIC Verified 11/01/17 22:17 [From Compazine] ATTACK prochlorperazine maleate Allergy PANIC Verified 11/01/17 22:17 [From Compazine] ATTACK Physical Exam Vitals: Vital Signs Temp Pulse Pulse Resp BP Pulse Ox 11/06/17 08:01 90 03/05/18 08:00 96.7 F L 86 18 131/60 93 L 11/06/17 07:53 88 11/06/17 06:42 16 94 L 11/06/17 04:00 96.4 F L 70 19 129/61 98 11/06/17 00:00 96.8 F L 76 16 133/65 97 11/05/17 20:08 99 18 11/05/17 20:00 96.7 F L 72 18 129/61 92 L 11/05/17 19:57 101 H 18 11/05/17 16:00 98 18 11/05/17 15:53 98.8 F 98 18 133/73 94 L 11/05/17 12:31 98 11/05/17 12:20 100 11/05/17 12:00 97.4 F L 100 18 137/70 93 L Intake and Output 11/05/17 11/06/17 11/06/17 22:59 06:59 14:59 Intake Total 360 950 120 Output Total 370 Balance 360 580 120 Intake: Intake, IV Titration 750 Amount Dextrose 5%-0.45% NaCl 1, 750 000 ml @ 75 mls/hr IV . [id number] [facility] Rx#:[id number] Oral 360 200 120 Output: Drainage 20 Left Lower Abdomen 20 Urine 350 Other: Voiding Method Diaper Diaper Diaper Incontinent Incontinent Incontinent # Voids 1 2 Weight 65.9 kg Gen: This is a 32-year-old female. She is found sitting on a commode where she states she is sitting to rest for right now. HEENT: Head is atraumatic, normocephalic. Pupils equal, round. Sclerae is anicteric. Conjunctiva pink. Mucous membranes of the mouth are moist. Dentition is in poor order. NECK: Supple. No JVD. No lymphadenopathy. No thyromegaly. LUNGS: Clear to auscultation. No wheezes or rhonchi. No intercostal retractions. HEART: Regular rate and rhythm. No murmur. Significant scoliosis with noted stage I decubitus with erythema to the mid thoracic area with deformity to the left side from scoliosis. ABDOMEN: Soft. Bowel sounds are present. Generalized tenderness. Dressing in place to the midline shows one small area of dried blood. There is a TEDDY drain to the left with serosanguineous drainage. EXTREMITIES: No pedal edema. No calf tenderness. NEUROLOGICAL: Patient is awake, alert and oriented x3. Cranial nerves 2 through 12 are grossly intact. Results Results: Laboratory Results WBC 14.6 k/uL (3.8-10.6) H 11/06/17 06:11 RBC 3.60 m/uL (3.80-5.40) L 11/06/17 06:11 Hgb 8.8 gm/dL (11.4-16.0) L 11/06/17 06:11 Hct 30.6 % (34.0-46.0) L 11/06/17 06:11 MCV 84.9 fL (80.0-100.0) 11/06/17 06:11 MCH 24.4 pg (25.0-35.0) L 11/06/17 06:11 MCHC 28.8 g/dL (31.0-37.0) L 11/06/17 06:11 RDW 19.4 % (11.5-15.5) H 11/06/17 06:11 Plt Count 428 k/uL (150-450) 11/06/17 06:11 Neutrophils % 69 % 11/01/17 23:10 Lymphocytes % 20 % 11/01/17 23:10 Monocytes % 6 % 11/01/17 23:10 Eosinophils % 2 % 11/01/17 23:10 Basophils % 1 % 11/01/17 23:10 Neutrophils # 4.5 k/uL (1.3-7.7) 11/01/17 23:10 Lymphocytes # 1.3 k/uL (1.0-4.8) 11/01/17 23:10 Monocytes # 0.4 k/uL (0-1.0) 11/01/17 23:10 Eosinophils # 0.1 k/uL (0-0.7) 11/01/17 23:10 Basophils # 0.1 k/uL (0-0.2) 11/01/17 23:10 Hypochromasia Marked 11/06/17 06:11 Poikilocytosis Moderate 11/06/17 06:11 Anisocytosis Slight 11/06/17 06:11 Microcytosis Slight 11/04/17 04:15 PT 12.4 sec (9.0-12.0) H 11/06/17 06:11 INR 1.3 (<1.2) H 11/06/17 06:11 APTT 64.7 sec (22.0-30.0) H 11/02/17 00:01 Sample Site vicenta 11/03/17 11:14 ABG pH 7.35 (7.35-7.45) 11/03/17 11:14 ABG pCO2 44 mmHg (35-45) 11/03/17 11:14 ABG pO2 70 mmHg (83-108) L 11/03/17 11:14 ABG HCO3 24 mmol/L (21-25) 11/03/17 11:14 ABG Total CO2 25 mmol/L (19-24) H 11/03/17 11:14 ABG O2 Saturation 94.9 % (94-97) 11/03/17 11:14 ABG Base Excess -1.6 mmol/L 11/03/17 11:14 Epifanio Test Yes 11/03/17 11:14 FiO2 40 % 11/03/17 11:14 Sodium 135 mmol/L (137-145) L 11/06/17 06:11 Potassium 4.0 mmol/L (3.5-5.1) 11/06/17 06:11 Chloride 103 mmol/L (98-107) 11/06/17 06:11 Carbon Dioxide 24 mmol/L (22-30) 11/06/17 06:11 Anion Gap 8 mmol/L 11/06/17 06:11 BUN 5 mg/dL (7-17) L 11/06/17 06:11 Creatinine 0.35 mg/dL (0.52-1.04) L 11/06/17 06:11 Est GFR (MDRD) Af Amer >60 (>60 ml/min/1.73 sqM) 11/06/17 06:11 Est GFR (MDRD) Non-Af >60 (>60 ml/min/1.73 sqM) 11/06/17 06:11 Glucose 96 mg/dL (74-99) 11/06/17 06:11 POC Glucose (mg/dL) 98 mg/dL (75-99) 11/06/17 02:11 POC Glu Link Trainer Maintenance Worker Isak Morel 11/06/17 02:11 Plasma Lactic Acid Santino 1.2 mmol/L (0.7-2.0) 11/02/17 09:25 Calcium 8.1 mg/dL (8.4-10.2) L 11/06/17 06:11 Phosphorus 3.6 mg/dL (2.5-4.5) 11/06/17 06:11 Magnesium 1.6 mg/dL (1.6-2.3) 11/06/17 06:11 Total Bilirubin 1.8 mg/dL (0.2-1.3) H 11/06/17 06:11 AST 54 U/L (14-36) H 11/06/17 06:11 ALT 29 U/L (9-52) 11/06/17 06:11 Alkaline Phosphatase 114 U/L (38-126) 11/06/17 06:11 Total Protein 6.8 g/dL (6.3-8.2) 11/06/17 06:11 Albumin 3.0 g/dL (3.5-5.0) L 11/06/17 06:11 Urine Color Light Yellow 11/02/17 01:52 Urine Appearance Clear (Clear) 11/02/17 01:52 Urine pH 6.0 (5.0-8.0) 11/02/17 01:52 Ur Specific Lawrence 1.027 (1.001-1.035) 11/02/17 01:52 Urine Protein Negative (Negative) 11/02/17 01:52 Urine Glucose (UA) Negative (Negative) 11/02/17 01:52 Urine Ketones Negative (Negative) 11/02/17 01:52 Urine Blood Trace (Negative) H 11/02/17 01:52 Urine Nitrite Negative (Negative) 11/02/17 01:52 Urine Bilirubin Negative (Negative) 11/02/17 01:52 Urine Urobilinogen <2.0 mg/dL (<2.0) 11/02/17 01:52 Ur Leukocyte Esterase Moderate (Negative) H 11/02/17 01:52 Urine RBC 8 /hpf (0-5) H 11/02/17 01:52 Urine WBC 7 /hpf (0-5) H 11/02/17 01:52 Ur Squamous Epith Cells 1 /hpf (0-4) 11/02/17 01:52 Urine Mucus Rare /hpf (None) H 11/02/17 01:52 Urine HCG, Qual Not Detected (Not Detectd) 11/02/17 10:10 Stool Occult Blood Negative (Negative) 11/02/17 16:30 Vancomycin Trough 16.5 ug/mL 11/06/17 06:11 Urine Opiates Screen Detected (NotDetected) H 11/02/17 01:46 Ur Oxycodone Screen Not Detected (NotDetected) 11/02/17 01:46 Urine Methadone Screen Not Detected (NotDetected) 11/02/17 01:46 Ur Propoxyphene Screen Not Detected (NotDetected) 11/02/17 01:46 Ur Barbiturates Screen Not Detected (NotDetected) 11/02/17 01:46 U Tricyclic Antidepress Detected (NotDetected) H 11/02/17 01:46 Ur Phencyclidine Scrn Not Detected (NotDetected) 11/02/17 01:46 Ur Amphetamines Screen Not Detected (NotDetected) 11/02/17 01:46 U Methamphetamines Scrn Not Detected (NotDetected) 11/02/17 01:46 U Benzodiazepines Scrn Not Detected (NotDetected) 11/02/17 01:46 Urine Cocaine Screen Not Detected (NotDetected) 11/02/17 01:46 U Marijuana (THC) Screen Not Detected (NotDetected) 11/02/17 01:46 Blood Type A Positive 11/02/17 01:04 Blood Type Recheck No 11/02/17 01:04 Antibody Screen NEGATIVE 11/02/17 01:04 Crossmatch See Detail 11/02/17 01:04 Transfuse Plasma 11/03/2017 11/03/17 07:50 Spec Expiration Date 11/05/2017230311/02/17 01:04 CBC & Chem 7: 11/07/17 05:21 11/06/17 06:11 Labs: Abnormal Lab Results - Last 24 Hours (Table) 11/05/17 11/05/17 11/06/17 Range/Units 11:17 20:30 06:11 WBC 16.5 H (3.8-10.6) k/uL RBC 3.30 L (3.80-5.40) m/uL Hgb 8.1 L (11.4-16.0) gm/dL Hct 27.4 L (34.0-46.0) % MCH 24.7 L (25.0-35.0) pg MCHC 29.7 L (31.0-37.0) g/dL RDW 19.2 H (11.5-15.5) % PT 12.4 H (9.0-12.0) sec INR 1.3 H (<1.2) Sodium (137-145) mmol/L BUN (7-17) mg/dL Creatinine (0.52-1.04) mg/dL POC Glucose (mg/dL) 109 H (75-99) mg/dL Calcium (8.4-10.2) mg/dL Total Bilirubin (0.2-1.3) mg/dL AST (14-36) U/L Albumin (3.5-5.0) g/dL 11/06/17 11/06/17 Range/Units 06:11 06:11 WBC 14.6 H (3.8-10.6) k/uL RBC 3.60 L (3.80-5.40) m/uL Hgb 8.8 L (11.4-16.0) gm/dL Hct 30.6 L (34.0-46.0) % MCH 24.4 L (25.0-35.0) pg MCHC 28.8 L (31.0-37.0) g/dL RDW 19.4 H (11.5-15.5) % PT (9.0-12.0) sec INR (<1.2) Sodium 135 L (137-145) mmol/L BUN 5 L (7-17) mg/dL Creatinine 0.35 L (0.52-1.04) mg/dL POC Glucose (mg/dL) (75-99) mg/dL Calcium 8.1 L (8.4-10.2) mg/dL Total Bilirubin 1.8 H (0.2-1.3) mg/dL AST 54 H (14-36) U/L Albumin 3.0 L (3.5-5.0) g/dL Microbiology - Last 24 Hours (Table) 11/02/17 09:35 Blood Culture Gram Stain - Preliminary Blood Blood Culture - Preliminary Group D Enterococcus 11/02/17 09:25 Blood Culture - Preliminary Blood No Growth after 72 hours Assessment and Plan Plan: This is a 32-year-old female patient with history of Marfan syndrome, presented with abdominal pain and found to have a splenic artery bleed status post splenectomy. Patient also noted to have group D enterococcus and blood culture from November 02. Patient has been on vancomycin and today cefepime was added. A repeat blood culture was ordered this morning. Antibiotics will be streamlined to only vancomycin. Patient will need PICC line placement once bacteremia is cleared on culture. Patient will be planned to start post op vaccination to include pneumococcal, meningeal And Haemophilus influenza vaccination. Continue supportive care. Further recommendations as patient progresses. The above dictated assessment and findings were discussed with Dr. Tyler. The impression and plan of care have been directed as dictated. Pura Hanna nurse practitioner acting as scribe for Dr. Tyler.
--- NOTE | 2017-11-06 12:27 | P.PN ---
Subjective Progress Note Date: 11/06/17 (delayed charting patient seen at 0930) Principal diagnosis: abdominal pain Patient is a 32-year-old female with a past medical history of Marfan syndrome, multiple aortic valve replacement on Coumadin, chronic pain, and scoliosis who presented to the emergency department with complaints of abdominal pain. In the emergency department she underwent an extensive evaluation. Her initial vital signs are found to be within normal limits. Initial laboratory analysis showed a significant drop in her hemoglobin. Her hemoglobin has chronically been between 9.5-11 for the past 2 months and prior to that was in the normal range. Her INR was found to be greater than 9. 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 There is concern about reversing her INR and she has a mechanical valve. She did not appear to be actively bleeding. After Dr. Centeno from surgery was consulted. She was made nothing by mouth and admitted to the ICU the selective care overflow. Since her last discharge the patient has been assigned a court appointed guardian. She has also been moved into a [facility]. It is likely that she had not been taking her Coumadin prior and with moving to the [facility] began taking this medication on a regular basis and therefore became supratherapeutic. On the morning after admission patient had significant lethargy despite complaining of pain. She states that she had not slept well the night prior. On repeat CBC her hemoglobin had actually increased from 7.7-8.4. Dr. Centeno reviewed CT scan with the radiologist and there was concern for active splenic hemorrhage. She was given additional vitamin K as well as FFP. She was started on serial CBCs serial PT/INRs. Her INR had decreased to 3.4 by 9 p.m. on 11/02 she was ordered additional FFP. Suddenly on the morning of 11/03 at approximately 4 AM she started having worsening of her abdominal pain. Stat hemoglobin and INR were rechecked. Her hemoglobin had dropped to 5.9 and INR had improved to 1.9. She was ordered 2 units of packed red blood cells and additional 2 units of FFP. Repeat CT abdomen and pelvis was ordered which showed worsening enlargement of the spleen and hemoperitoneum. Dr. Centeno emergently to the patient to operating room and performed a open splenectomy. As of the afternoon of 11/03 she had a total of 3 units of packed red blood cells and 5 units of FFP. She returned to the ICU intubated. She was awake and following commands and was subsequently extubated. Her HgB and INR remained stable after surgery she was seen by cardiology. She has been maintained off anticoagulation. Her hemoglobin has been stable since surgery. She did become slightly hypoglycemic and necessitated D5 1/2 NS infusion. She has been progressing well. She developed increasing shortness of breath on 11/04 and was founf ot have slight fluid overload. She'll need to be monitored closely for risk of valvular thrombosis. Patient seen and examined at bedside. Shortness of breath is worse today, she is feeling winded. No chest pain, not light headed. No diarrhea. No abdominal pain. has been walking to the bathroom and feels very weak walking. Objective - Vital Signs Vital signs: Vital Signs Temp 96.7 F L 11/06/17 08:00 Pulse 90 11/06/17 08:01 Resp 18 11/06/17 08:00 BP 131/60 11/06/17 08:00 Pulse Ox 93 L 11/06/17 08:00 Intake & Output 11/05/17 11/06/17 11/06/17 18:59 06:59 18:59 Intake Total 678 950 120 Output Total 240 370 Balance 438 580 120 Weight 65.9 kg Intake: Intake, IV Titration 750 Amount Dextrose 5%-0.45% NaCl 1, 750 000 ml @ 75 mls/hr IV . [id number] [facility] Rx#:[id number] Oral 678 200 120 Output: Drainage 40 20 Left Lower Abdomen 40 20 Urine 200 350 Other: Voiding Method Diaper Diaper Diaper Incontinent Incontinent Incontinent # Voids 1 2 ABP, PAP, CO, CI - Last Documented Arterial Blood Pressure 114/64 - Exam General: Ill appearing, no distress, appears at stated age Derm: warm, dry, no erythema over right ankle Head: atraumatic, normocephalic, symmetric Eyes: EOMI, no lid lag, anicteric sclera Mouth: no lip lesion, mucus membranes moist Cardiovascular: S1S2 reg, no murmur, positive posterior tibial pulse bilateral, Lungs: crackles left base, no accessory muscle use Abdominal: Absent bowel sounds, distended soft, + tender to palpation left upper quadrant, no guarding, dressing in place over left abdomen, TEDDY drain in place with serosanguineous fluid Ext: + gross muscle atrophy, no edema b/l, no contractures, levoscoliosis Neuro: CN II-XI grossly intact, no focal neuro deficits Psych: Alert, oriented, flat affect - Labs CBC & Chem 7: 11/06/17 06:11 11/06/17 06:11 Labs: Abnormal Lab Results - Last 24 Hours (Table) 11/05/17 11/06/17 11/06/17 Range/Units 20:30 06:11 06:11 WBC 14.6 H (3.8-10.6) k/uL RBC 3.60 L (3.80-5.40) m/uL Hgb 8.8 L (11.4-16.0) gm/dL Hct 30.6 L (34.0-46.0) % MCH 24.4 L (25.0-35.0) pg MCHC 28.8 L (31.0-37.0) g/dL RDW 19.4 H (11.5-15.5) % PT 12.4 H (9.0-12.0) sec INR 1.3 H (<1.2) Sodium (137-145) mmol/L BUN (7-17) mg/dL Creatinine (0.52-1.04) mg/dL POC Glucose (mg/dL) 109 H (75-99) mg/dL Calcium (8.4-10.2) mg/dL Total Bilirubin (0.2-1.3) mg/dL AST (14-36) U/L Albumin (3.5-5.0) g/dL 11/06/17 Range/Units 06:11 WBC (3.8-10.6) k/uL RBC (3.80-5.40) m/uL Hgb (11.4-16.0) gm/dL Hct (34.0-46.0) % MCH (25.0-35.0) pg MCHC (31.0-37.0) g/dL RDW (11.5-15.5) % PT (9.0-12.0) sec INR (<1.2) Sodium 135 L (137-145) mmol/L BUN 5 L (7-17) mg/dL Creatinine 0.35 L (0.52-1.04) mg/dL POC Glucose (mg/dL) (75-99) mg/dL Calcium 8.1 L (8.4-10.2) mg/dL Total Bilirubin 1.8 H (0.2-1.3) mg/dL AST 54 H (14-36) U/L Albumin 3.0 L (3.5-5.0) g/dL Microbiology - Last 24 Hours (Table) 11/02/17 09:25 Blood Culture - Preliminary Blood No Growth after 96 hours 11/02/17 09:35 Blood Culture Gram Stain - Preliminary Blood Blood Culture - Preliminary Group D Enterococcus Assessment and Plan Assessment: Group D enterococcus bacteremia - repeat blood culture - continue vanco, add cefepime as cannot rule out PNA on CXR - Consult ID with mechanical heart valve Decompensated congestive heart failure, ejection fraction 55-60% - IV lasix -No indication for beta madelaine or FROYLAN inhibitor -Cardiology recommendations Splenic hemorrhage status post open splenectomy - Management as per surgical team -Has received 3 units of blood and 5 units of FFP -Pain control -Antiemetics -Consult PT -Avoid additional anticoagulant until approved by surgery. -We will need appointment with Dr. Tyler in 14 days after splenectomy for administration of additional vaccine. Patient will need both pneumonia shots as well as meningitis vaccinations. She will also need possible influenza type B if that has not been administered as well as Tdap. Literature showed a fever given before 14 days she may need a repeat immunization. We'll attempt to make appointment for her prior to discharge. Acute blood loss anemia, stable -Status post 3 units of packed red blood cells -Follow CBC -Additional units are currently on hold Supratherapeutic INR with mechanical heart valve-now subtherapeutic as has her first -Patient is status post 5 mg of vitamin K as well as 5 units of FFP. She does have a history of to mechanical aortic valve (X2) with a history of valvular stenosis and subtherapeutic Coumadin levels leading to stroke. She is also had aortic root repair. - Cardiology consultation - Follow INRs closely and monitor for signs of valve malfunction. Probable early cellulitis of right lower extremity, improving -Vancomycin -Clinically improving. Would treat for an additional 2 days. Chronic: Osteoarthritis Severe kyphosis and scoliosis Marfan syndrome History of hepatitis C History of IVDA Multiple episodes of spontaneous pneumothorax and history of lobectomy DVT prophylaxis: SCDs Discussed with: Patient, nursing, ID RESIDENT PROGRAMS ASSISTANT Anticipated discharge: Undetermined Anticipated discharge place: Undetermined A total of 45 minutes was spent on the care of this complex patient more than 50 % of the time was spent in counseling and care coordination.
--- NOTE | 2017-11-06 13:40 | P.PN ---
Subjective Progress Note Date: 11/06/17 This is a 32-year-old female with significant past health history of Marfan syndrome, multiple aortic valve replacement starting on chronic Coumadin , history of hepatitis C. Patient presented to [facility] emergency center on November 02 with complaints of abdominal pain. Her INR was at 9. 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 She was initially admitted into intensive care. Patient subsequently developed lethargy and due to concern for active splenic hemorrhage she was given additional vitamin K and fresh frozen plasma and on the morning of November 03 she developed worsening abdominal pain and her hemoglobin had dropped down to 5.9 and INR was 1.9. She got underwent a repeat CT of the abdomen and pelvis showing worsening enlargement of the spleen and hemoperitoneum. Patient was taken to the OR emergently by Dr. Centeno and performed an open splenectomy. Patient returned to the ICU intubated and was subsequently extubated and transferred to the selective care unit. Her most recent chest x-ray yesterday showed congestive heart failure with pleural effusions and lower lobe pulmonary infiltrates. Chest x-ray appears worse from last exam. Regarding blood cultures, patient had 1 drawn on November 02 at 920 5 in the morning that is showing no growth after 72 hours. Second blood culture done at 935 showing group D enterococcus. Patient has been afebrile since admission. Initial white count was 9.3 currently at 14.6. Patient has been on IV antibiotics in the form of vancomycin since November 02 and cefepime was started today. Patient is currently on a clear liquid diet. Patient states she is passing gas but has not had a bowel movement. She is complaining of significant abdominal pain. She denies any difficulty urinating. She has a TEDDY drain with serosanguineous fluid. 11/06/2017 Patient was seen and examined this morning, planing of mild shortness of breath , denies any chest discomfort. Hemodynamically stable. Lungs are clear. Hemoglobin 8.8 today. Once the patient is cleared from Dr. collado perspective we will resume Coumadin. Objective - Vital Signs Vital signs: Vital Signs Temp 96.7 F L 11/06/17 08:00 Pulse 90 11/06/17 08:01 Resp 18 11/06/17 08:00 BP 131/60 11/06/17 08:00 Pulse Ox 93 L 11/06/17 08:00 Intake & Output 11/05/17 11/06/17 11/06/17 18:59 06:59 18:59 Intake Total 678 950 120 Output Total 240 370 Balance 438 580 120 Weight 65.9 kg Intake: Intake, IV Titration 750 Amount Dextrose 5%-0.45% NaCl 1, 750 000 ml @ 75 mls/hr IV . [id number] [facility] Rx#:[id number] Oral 678 200 120 Output: Drainage 40 20 Left Lower Abdomen 40 20 Urine 200 350 Other: Voiding Method Diaper Diaper Diaper Incontinent Incontinent Incontinent # Voids 1 2 ABP, PAP, CO, CI - Last Documented Arterial Blood Pressure 114/64 - Exam PHYSICAL EXAMINATION: HEENT: [Head is atraumatic, normocephalic. Pupils equal, round. Neck is supple. There is no elevated jugular venous pressure.] HEART EXAMINATION: Heart S1-S2 prosthetic valve sounds are heard. CHEST EXAMINATION:[ Lungs are clear to auscultation and precussion. No chest wall tenderness is noted on palpation or with deep breathing.] ABDOMEN: [ Soft, nontender. Bowel sounds are heard. No organomegaly noted]. EXTREMITIES:[ 2+ peripheral pulses with no evidence of peripheral edema and no calf tenderness noted]. NEUROLOGIC [patient is awake, alert and oriented -3.] . - Labs CBC & Chem 7: 11/06/17 06:11 11/06/17 06:11 Labs: Abnormal Lab Results - Last 24 Hours (Table) 11/05/17 11/06/17 11/06/17 Range/Units 20:30 06:11 06:11 WBC 14.6 H (3.8-10.6) k/uL RBC 3.60 L (3.80-5.40) m/uL Hgb 8.8 L (11.4-16.0) gm/dL Hct 30.6 L (34.0-46.0) % MCH 24.4 L (25.0-35.0) pg MCHC 28.8 L (31.0-37.0) g/dL RDW 19.4 H (11.5-15.5) % PT 12.4 H (9.0-12.0) sec INR 1.3 H (<1.2) Sodium (137-145) mmol/L BUN (7-17) mg/dL Creatinine (0.52-1.04) mg/dL POC Glucose (mg/dL) 109 H (75-99) mg/dL Calcium (8.4-10.2) mg/dL Total Bilirubin (0.2-1.3) mg/dL AST (14-36) U/L Albumin (3.5-5.0) g/dL 11/06/17 Range/Units 06:11 WBC (3.8-10.6) k/uL RBC (3.80-5.40) m/uL Hgb (11.4-16.0) gm/dL Hct (34.0-46.0) % MCH (25.0-35.0) pg MCHC (31.0-37.0) g/dL RDW (11.5-15.5) % PT (9.0-12.0) sec INR (<1.2) Sodium 135 L (137-145) mmol/L BUN 5 L (7-17) mg/dL Creatinine 0.35 L (0.52-1.04) mg/dL POC Glucose (mg/dL) (75-99) mg/dL Calcium 8.1 L (8.4-10.2) mg/dL Total Bilirubin 1.8 H (0.2-1.3) mg/dL AST 54 H (14-36) U/L Albumin 3.0 L (3.5-5.0) g/dL Microbiology - Last 24 Hours (Table) 11/02/17 09:25 Blood Culture - Preliminary Blood No Growth after 96 hours 11/02/17 09:35 Blood Culture Gram Stain - Preliminary Blood Blood Culture - Preliminary Group D Enterococcus Assessment and Plan Plan: Assessment and plan #1 supra therapeutic INR with splenic hemorrhage, status post splenectomy. #2 status post aortic valve replacement with mechanical valve #3 Marfan's syndrome #4 history of stroke #5 Arnold Chiari malformation #6 history of hepatitis C #7 history of IV drug abuse #8 multiple episodes of spontaneous pneumothorax and history of lobectomy Plan From cardiology's perspective, we'll continue current medications. Resume Coumadin when okay with Dr. collado. DNP note has been reviewed, I agree with a documented findings and plan of care. Patient was seen and examined.
--- NOTE | 2017-11-06 16:02 | P.PN ---
Subjective Progress Note Date: 11/06/17 Principal diagnosis: Splenic hemorrhage Patient doing well today. Her pain is gradually improving. Hemoglobin is stable. White blood cell count slightly elevated as expected. Tolerating clears. Some bloating. TEDDY drain serosanguineous. Volume of output appropriate. Objective - Vital Signs Vital signs: Vital Signs Temp 97.8 F 11/06/17 12:00 Pulse 88 11/06/17 13:18 Resp 18 11/06/17 12:00 BP 122/57 11/06/17 12:00 Pulse Ox 93 L 11/06/17 12:00 Intake & Output 11/05/17 11/06/17 11/06/17 18:59 06:59 18:59 Intake Total 678 950 360 Output Total 240 370 Balance 438 580 360 Weight 65.9 kg 65.9 kg Intake: Intake, IV Titration 750 Amount Dextrose 5%-0.45% NaCl 1, 750 000 ml @ 75 mls/hr IV . [id number] [facility] Rx#:[id number] Oral 678 200 360 Output: Drainage 40 20 Left Lower Abdomen 40 20 Urine 200 350 Other: Voiding Method Diaper Diaper Diaper Incontinent Incontinent Incontinent # Voids 1 2 ABP, PAP, CO, CI - Last Documented Arterial Blood Pressure 114/64 - Exam Abdomen: Soft, mild distention, mild incisional tenderness, dressing intact - Labs CBC & Chem 7: 11/06/17 06:11 11/06/17 06:11 Labs: Abnormal Lab Results - Last 24 Hours (Table) 11/05/17 11/06/17 11/06/17 Range/Units 20:30 06:11 06:11 WBC 14.6 H (3.8-10.6) k/uL RBC 3.60 L (3.80-5.40) m/uL Hgb 8.8 L (11.4-16.0) gm/dL Hct 30.6 L (34.0-46.0) % MCH 24.4 L (25.0-35.0) pg MCHC 28.8 L (31.0-37.0) g/dL RDW 19.4 H (11.5-15.5) % PT 12.4 H (9.0-12.0) sec INR 1.3 H (<1.2) Sodium (137-145) mmol/L BUN (7-17) mg/dL Creatinine (0.52-1.04) mg/dL POC Glucose (mg/dL) 109 H (75-99) mg/dL Calcium (8.4-10.2) mg/dL Total Bilirubin (0.2-1.3) mg/dL AST (14-36) U/L Albumin (3.5-5.0) g/dL 11/06/17 Range/Units 06:11 WBC (3.8-10.6) k/uL RBC (3.80-5.40) m/uL Hgb (11.4-16.0) gm/dL Hct (34.0-46.0) % MCH (25.0-35.0) pg MCHC (31.0-37.0) g/dL RDW (11.5-15.5) % PT (9.0-12.0) sec INR (<1.2) Sodium 135 L (137-145) mmol/L BUN 5 L (7-17) mg/dL Creatinine 0.35 L (0.52-1.04) mg/dL POC Glucose (mg/dL) (75-99) mg/dL Calcium 8.1 L (8.4-10.2) mg/dL Total Bilirubin 1.8 H (0.2-1.3) mg/dL AST 54 H (14-36) U/L Albumin 3.0 L (3.5-5.0) g/dL Microbiology - Last 24 Hours (Table) 11/02/17 09:25 Blood Culture - Preliminary Blood No Growth after 96 hours 11/02/17 09:35 Blood Culture Gram Stain - Preliminary Blood Blood Culture - Preliminary Group D Enterococcus Assessment and Plan (1) Splenic hemorrhage Narrative/Plan: Will advance diet to full liquids. Increase activity. Continue pain control. Current Visit: Yes Status: Acute Code(s): D73.89 - OTHER DISEASES OF SPLEEN SNOMED Code(s): 30252827
[2017-11-06] MEDS: ENOXAPARIN 40 MG/0.4 ML SYRINGE SQ SCH (17:22)
[2017-11-06] MEDS ORDERED: WARFARIN 2 MG TAB PO ONE (18:00)
--- NOTE | 2017-11-06 19:44 | P.CON ---
Consult Note - . Consult date: 11/06/17 Assessment/Plan:: This is a 32-year-old female with significant past health history of Marfan syndrome, multiple aortic valve replacement starting on chronic Coumadin , history of hepatitis C. Patient presented to [facility] emergency center on November 02 with complaints of abdominal pain. Her INR was at 9. 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 She was initially admitted into intensive care. Patient subsequently developed lethargy and due to concern for active splenic hemorrhage she was given additional vitamin K and fresh frozen plasma and on the morning of November 03 she developed worsening abdominal pain and her hemoglobin had dropped down to 5.9 and INR was 1.9. She got underwent a repeat CT of the abdomen and pelvis showing worsening enlargement of the spleen and hemoperitoneum. Patient was taken to the OR emergently by Dr. Centeno and performed an open splenectomy. Patient returned to the ICU intubated and was subsequently extubated and transferred to the selective care unit. Her most recent chest x-ray yesterday showed congestive heart failure with pleural effusions and lower lobe pulmonary infiltrates. Chest x-ray appears worse from last exam. She has been seen and followed by cardiology and Coumadin is to be resumed once cleared by Dr. Centeno. Patient was also followed by Dr. Pritchard for intensive care management. Regarding blood cultures, patient had 1 drawn on November 02 at 920 5 in the morning that is showing no growth after 72 hours. Second blood culture done at 935 showing group D enterococcus. Patient has been afebrile since admission. Initial white count was 9.3 currently at 14.6. Patient has been on IV antibiotics in the form of vancomycin since November 02 and cefepime was started today. Patient is currently on a clear liquid diet. Patient states she is passing gas but has not had a bowel movement. She is complaining of significant abdominal pain. She denies any difficulty urinating. She has a TEDDY drain with serosanguineous fluid. She does complain of a little shortness of breath and the cough is nonproductive. Please see the consult note as dictated by nurse practitioner Mrs. Pura Hanna. As well as along relates that her pain is under some better controlled today. Still having ongoing abdominal pain. Removing her diet to clear liquids to full liquids and see how she can tolerate that given some improvement. As noted laboratories isolated out enterococcus from her blood culture. She is noted to have a penicillin ALLERGY that occurred when she was a teenager and appears to be significant. Consequently for now vancomycin therapy will be utilized. The anterior spleen is the likely current source of the sepsis and bacteremia. We'll need IV access was we have evidence of clearance of her bacteremia. Likely a few week course of vancomycin therapy will be needed for completion of this significant bacteremic infectious process. Cefepime be discontinued with no other pathogens being seen. I agree with evaluation, assessment and plan as dictated by nurse practitioner Mrs. Pura Hanna.
[2017-11-06] MEDS: GABAPENTIN 100 MG CAP PO SCH (19:57)
[2017-11-06] MEDS: OLANZapine 10 MG TAB PO SCH (19:57)
[2017-11-06] MEDS: LACTULOSE 20 GM/30 ML CUP PO SCH (20:05)
[2017-11-06 21:00] LABS: Glucose,Whole Blood 87 mg/dL (75-99)
[2017-11-07] MEDS: MORPHINE SULFATE 4 MG/ML SYRINGE IVP PRN ×7 (03:18→23:10)
[2017-11-07 06:01] LABS: Anisocytosis Slight; HCT 29.4 % (34.0-46.0); Hypochromasia Marked; MCH 24.8 pg (25.0-35.0); MCHC 30.6 g/dL (31.0-37.0); MCV 81.1 fL (80.0-100.0); Mean Platelet Volume 7.1; Microcytosis Slight; Platelet Count 490 k/uL (150-450); Poikilocytosis Marked; RBC 3.62 m/uL (3.80-5.40); RDW 19.5 % (11.5-15.5); WBC 15.1 k/uL (3.8-10.6)
[2017-11-07 06:12] LABS: INR 1.4 (<1.2); Prothrombin Time 13.5 sec (9.0-12.0)
[2017-11-07 06:38] LABS: Glucose,Whole Blood 94 mg/dL (75-99)
[2017-11-07] MEDS: FUROSEMIDE 10 MG/ML 2 ML VIAL IV SCH (08:10)
[2017-11-07] MEDS: PANTOPRAZOLE 40 MG/10 ML VIAL IVP SCH (08:11)
[2017-11-07] MEDS: GABAPENTIN 100 MG CAP PO SCH ×3 (08:11→20:10)
[2017-11-07] MEDS: ENOXAPARIN 40 MG/0.4 ML SYRINGE SQ SCH (08:11)
[2017-11-07] MEDS: DULoxetine HCL 60 MG CAPSULE.DR PO SCH (08:11)
[2017-11-07] MEDS: LACTULOSE 20 GM/30 ML CUP PO SCH (08:11)
[2017-11-07] MEDS: VANCOMYCIN 1,000 MG in SODIUM CHLORIDE 0.9% 250 ML IVPB SCH ×3 (08:11→23:12)
[2017-11-07] MEDS: IPRATROPIUM-ALBUTEROL 3 ML NEB INHALATION SCH ×3 (08:15→19:18)
--- NOTE | 2017-11-07 10:03 | XR ---
EXAMINATION TYPE: XR chest 1V portable DATE OF EXAM: 11/07/2017 Comparison: 11/05/2017 Clinical History: 32-year-old female pneumonia Findings: Severe scoliotic deformity. Median sternotomy wires are present. Heart moderately enlarged. Focal and hazy bibasilar densities. Staple line left suprahilar region. Impression: Severe scoliosis. Moderate cardiomegaly and continued small to moderate pleural effusions with adjacent atelectasis and /or consolidation. Correlate for possible CHF as an etiology. Underlying pneumonia would be difficult to exclude. No significant change.
[2017-11-07] MEDS: DEXTROSE 5%-0.45% NACL 1,000 ML IV SCH (10:16)
[2017-11-07] MEDS: POLYETHYLENE GLYCOL 3350 17 GM POWD.PACK PO SCH (10:17)
--- NOTE | 2017-11-07 10:45 | P.PN ---
Subjective Progress Note Date: 11/07/17 This is a 32-year-old female with significant past health history of Marfan syndrome, multiple aortic valve replacement starting on chronic Coumadin , history of hepatitis C. Patient presented to [facility] emergency center on November 02 with complaints of abdominal pain. Her INR was at 9. 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 She was initially admitted into intensive care. Patient subsequently developed lethargy and due to concern for active splenic hemorrhage she was given additional vitamin K and fresh frozen plasma and on the morning of November 03 she developed worsening abdominal pain and her hemoglobin had dropped down to 5.9 and INR was 1.9. She got underwent a repeat CT of the abdomen and pelvis showing worsening enlargement of the spleen and hemoperitoneum. Patient was taken to the OR emergently by Dr. Centeno and performed an open splenectomy. Patient returned to the ICU intubated and was subsequently extubated and transferred to the selective care unit. Her most recent chest x-ray yesterday showed congestive heart failure with pleural effusions and lower lobe pulmonary infiltrates. Chest x-ray appears worse from last exam. Regarding blood cultures, patient had 1 drawn on November 02 at 920 5 in the morning that is showing no growth after 72 hours. Second blood culture done at 935 showing group D enterococcus. Patient has been afebrile since admission. Initial white count was 9.3 currently at 14.6. Patient has been on IV antibiotics in the form of vancomycin since November 02 and cefepime was started today. Patient is currently on a clear liquid diet. Patient states she is passing gas but has not had a bowel movement. She is complaining of significant abdominal pain. She denies any difficulty urinating. She has a TEDDY drain with serosanguineous fluid. 11/06/2017 Patient was seen and examined this morning, planing of mild shortness of breath , denies any chest discomfort. Hemodynamically stable. Lungs are clear. Hemoglobin 8.8 today. Once the patient is cleared from Dr. collado perspective we will resume Coumadin. 11/07/2017 Patient was seen and examined this morning, her Coumadin has been resumed.INR 1.4. Hemoglobin 9.0. Objective - Vital Signs Vital signs: Vital Signs Temp 96.6 F L 11/07/17 08:00 Pulse 88 11/07/17 08:25 Resp 18 11/07/17 08:00 BP 122/58 11/07/17 08:00 Pulse Ox 91 L 11/07/17 08:15 Intake & Output 11/06/17 11/07/17 11/07/17 18:59 06:59 18:59 Intake Total 360 Output Total 220 60 Balance 360 -220 -60 Weight 65.9 kg 54.2 kg Intake: Oral 360 Output: Drainage 20 60 Left Lower Abdomen 20 60 Urine 200 Other: Voiding Method Diaper Bedside Commode Bedside Commode Incontinent Diaper Diaper Incontinent Incontinent ABP, PAP, CO, CI - Last Documented Arterial Blood Pressure 114/64 - Exam PHYSICAL EXAMINATION: HEENT: [Head is atraumatic, normocephalic. Pupils equal, round. Neck is supple. There is no elevated jugular venous pressure.] HEART EXAMINATION: Heart S1-S2 prosthetic valve sounds are heard. CHEST EXAMINATION:[ Lungs are clear to auscultation and precussion. No chest wall tenderness is noted on palpation or with deep breathing.] ABDOMEN: [ Soft, nontender. Bowel sounds are heard. No organomegaly noted]. EXTREMITIES:[ 2+ peripheral pulses with no evidence of peripheral edema and no calf tenderness noted]. NEUROLOGIC [patient is awake, alert and oriented -3.] . - Labs CBC & Chem 7: 11/07/17 05:21 11/06/17 06:11 Labs: Abnormal Lab Results - Last 24 Hours (Table) 11/02/17 11/07/17 11/07/17 Range/Units 01:04 05:21 05:21 WBC 15.1 H (3.8-10.6) k/uL RBC 3.62 L (3.80-5.40) m/uL Hgb 9.0 L (11.4-16.0) gm/dL Hct 29.4 L (34.0-46.0) % MCH 24.8 L (25.0-35.0) pg MCHC 30.6 L (31.0-37.0) g/dL RDW 19.5 H (11.5-15.5) % Plt Count 490 H (150-450) k/uL PT 13.5 H (9.0-12.0) sec INR 1.4 H (<1.2) Crossmatch See Detail Microbiology - Last 24 Hours (Table) 11/02/17 09:25 Blood Culture - Preliminary Blood No Growth after 96 hours Assessment and Plan Plan: Assessment and plan #1 supra therapeutic INR with splenic hemorrhage, status post splenectomy. #2 status post aortic valve replacement with mechanical valve #3 Marfan's syndrome #4 history of stroke #5 Arnold Chiari malformation #6 history of hepatitis C #7 history of IV drug abuse #8 multiple episodes of spontaneous pneumothorax and history of lobectomy Plan From cardiology's perspective, we'll continue current medications. we will follow this patient with you now on an as-needed basis only, these don't hesitate to call with any questions. DNP note has been reviewed, I agree with a documented findings and plan of care. Patient was seen and examined.
[2017-11-07 11:30] LABS: Glucose,Whole Blood 122 mg/dL (75-99)
--- NOTE | 2017-11-07 12:41 | P.PN ---
Subjective Progress Note Date: 11/07/17 Principal diagnosis: Splenic hemorrhage I was contacted by the nursing staff last night that she was having more abdominal pain and bloating. Since that time the patient has had one stool and his pacing flatus. She says her pain is actually improved. She is quite hungry. Denies nausea or vomiting. Objective - Vital Signs Vital signs: Vital Signs Temp 96.6 F L 11/07/17 08:00 Pulse 88 11/07/17 11:54 Resp 18 11/07/17 08:00 BP 122/58 11/07/17 08:00 Pulse Ox 91 L 11/07/17 08:15 Intake & Output 11/06/17 11/07/17 11/07/17 18:59 06:59 18:59 Intake Total 360 Output Total 220 60 Balance 360 -220 -60 Weight 65.9 kg 54.2 kg Intake: Oral 360 Output: Drainage 20 60 Left Lower Abdomen 20 60 Urine 200 Other: Voiding Method Diaper Bedside Commode Bedside Commode Incontinent Diaper Diaper Incontinent Incontinent ABP, PAP, CO, CI - Last Documented Arterial Blood Pressure 114/64 - Exam Abdomen: Soft, less distended, mild tympany, mild incisional tenderness, dressing clean and dry - Labs CBC & Chem 7: 11/07/17 05:21 11/06/17 06:11 Labs: Abnormal Lab Results - Last 24 Hours (Table) 11/02/17 11/07/17 11/07/17 Range/Units 01:04 05:21 05:21 WBC 15.1 H (3.8-10.6) k/uL RBC 3.62 L (3.80-5.40) m/uL Hgb 9.0 L (11.4-16.0) gm/dL Hct 29.4 L (34.0-46.0) % MCH 24.8 L (25.0-35.0) pg MCHC 30.6 L (31.0-37.0) g/dL RDW 19.5 H (11.5-15.5) % Plt Count 490 H (150-450) k/uL PT 13.5 H (9.0-12.0) sec INR 1.4 H (<1.2) POC Glucose (mg/dL) (75-99) mg/dL Crossmatch See Detail 11/07/17 Range/Units 11:17 WBC (3.8-10.6) k/uL RBC (3.80-5.40) m/uL Hgb (11.4-16.0) gm/dL Hct (34.0-46.0) % MCH (25.0-35.0) pg MCHC (31.0-37.0) g/dL RDW (11.5-15.5) % Plt Count (150-450) k/uL PT (9.0-12.0) sec INR (<1.2) POC Glucose (mg/dL) 122 H (75-99) mg/dL Crossmatch Microbiology - Last 24 Hours (Table) 11/06/17 09:35 Blood Culture - Preliminary Blood No Growth after 24 hours 11/06/17 09:35 Blood Culture - Preliminary Blood No Growth after 24 hours 11/02/17 09:25 Blood Culture - Preliminary Blood No Growth after 120 hours Assessment and Plan (1) Splenic hemorrhage Narrative/Plan: Resume liquid diet. Ambulate. Continue Coumadin for history of artificial valve. Recheck labs tomorrow. Current Visit: Yes Status: Acute Code(s): D73.89 - OTHER DISEASES OF SPLEEN SNOMED Code(s): 05315076
--- NOTE | 2017-11-07 12:51 | P.PN ---
Subjective Progress Note Date: 11/07/17 Principal diagnosis: abdominal pain Patient is a 32-year-old female with a past medical history of Marfan syndrome, multiple aortic valve replacement on Coumadin, chronic pain, and scoliosis who presented to the emergency department with complaints of abdominal pain. In the emergency department she underwent an extensive evaluation. Her initial vital signs are found to be within normal limits. Initial laboratory analysis showed a significant drop in her hemoglobin. Her hemoglobin has chronically been between 9.5-11 for the past 2 months and prior to that was in the normal range. Her INR was found to be greater than 9. 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 There is concern about reversing her INR and she has a mechanical valve. She did not appear to be actively bleeding. After Dr. Centeno from surgery was consulted. She was made nothing by mouth and admitted to the ICU the selective care overflow. Since her last discharge the patient has been assigned a court appointed guardian. She has also been moved into a [facility]. It is likely that she had not been taking her Coumadin prior and with moving to the [facility] began taking this medication on a regular basis and therefore became supratherapeutic. On the morning after admission patient had significant lethargy despite complaining of pain. She states that she had not slept well the night prior. On repeat CBC her hemoglobin had actually increased from 7.7-8.4. Dr. Centeno reviewed CT scan with the radiologist and there was concern for active splenic hemorrhage. She was given additional vitamin K as well as FFP. She was started on serial CBCs serial PT/INRs. Her INR had decreased to 3.4 by 9 p.m. on 11/02 she was ordered additional FFP. Suddenly on the morning of 11/03 at approximately 4 AM she started having worsening of her abdominal pain. Stat hemoglobin and INR were rechecked. Her hemoglobin had dropped to 5.9 and INR had improved to 1.9. She was ordered 2 units of packed red blood cells and additional 2 units of FFP. Repeat CT abdomen and pelvis was ordered which showed worsening enlargement of the spleen and hemoperitoneum. Dr. Centeno emergently to the patient to operating room and performed a open splenectomy. As of the afternoon of 11/03 she had a total of 3 units of packed red blood cells and 5 units of FFP. She returned to the ICU intubated. She was awake and following commands and was subsequently extubated. Her HgB and INR remained stable after surgery she was seen by cardiology. She has been maintained off anticoagulation. Her hemoglobin has been stable since surgery. She did become slightly hypoglycemic and necessitated D5 1/2 NS infusion. She has been progressing well. She developed increasing shortness of breath on 11/04 and was found to have slight fluid overload. On 11/05 she came back to have / blood cultures positive for enterococcus. Infectious disease was consulted and recommended 3 weeks of IV antibiotics with line to be placed after bloodstream has been cleared. He was also determined that she was okay to restart anticoagulation on 11/05 by surgery. There was some concern over abdominal distension by nursing on the evening of 11/06 that she had increasing abdominal distention and she was made nothing by mouth again. However on my exam on 11/07 her physical exam consistent with prior. Patient seen and examined at bedside. Patient is annoyed she is nothing by mouth again. She denies any chest pain or shortness of breath. She is feeling better after her Zyprexa was resumed. She denies any increasing abdominal pain. She states she is passing gas and has not had a bowel movement. She agrees to continue to use her incentive spirometer and to get up and work with physical therapy. She notes she will likely need to go to rehab and she will need 3 weeks of IV antibiotics. Objective - Vital Signs Vital signs: Vital Signs Temp 97.6 F 11/07/17 04:00 Pulse 88 11/07/17 08:25 Resp 18 11/07/17 04:00 BP 136/66 11/07/17 04:00 Pulse Ox 91 L 11/07/17 08:15 Intake & Output 11/06/17 11/07/17 11/07/17 18:59 06:59 18:59 Intake Total 360 Output Total 220 Balance 360 -220 Weight 65.9 kg 54.2 kg Intake: Oral 360 Output: Drainage 20 Left Lower Abdomen 20 Urine 200 Other: Voiding Method Diaper Bedside Commode Incontinent Diaper Incontinent ABP, PAP, CO, CI - Last Documented Arterial Blood Pressure 114/64 - Exam General: Ill appearing, no distress, appears at stated age Derm: warm, dry, no erythema over right ankle Head: atraumatic, normocephalic, symmetric Eyes: EOMI, no lid lag, anicteric sclera Mouth: no lip lesion, mucus membranes moist Cardiovascular: S1S2 reg, no murmur, positive posterior tibial pulse bilateral, Lungs: crackles left base, no accessory muscle use Abdominal: Absent bowel sounds, distended soft, + tender to palpation left upper quadrant, no guarding, dressing in place over left abdomen, TEDDY drain in place with serosanguineous fluid Ext: + gross muscle atrophy, no edema b/l, no contractures, levoscoliosis Neuro: CN II-XI grossly intact, no focal neuro deficits Psych: Alert, oriented, flat affect - Labs CBC & Chem 7: 11/07/17 05:21 11/06/17 06:11 Labs: Abnormal Lab Results - Last 24 Hours (Table) 11/02/17 11/07/17 11/07/17 Range/Units 01:04 05:21 05:21 WBC 15.1 H (3.8-10.6) k/uL RBC 3.62 L (3.80-5.40) m/uL Hgb 9.0 L (11.4-16.0) gm/dL Hct 29.4 L (34.0-46.0) % MCH 24.8 L (25.0-35.0) pg MCHC 30.6 L (31.0-37.0) g/dL RDW 19.5 H (11.5-15.5) % Plt Count 490 H (150-450) k/uL PT 13.5 H (9.0-12.0) sec INR 1.4 H (<1.2) Crossmatch See Detail Microbiology - Last 24 Hours (Table) 11/02/17 09:25 Blood Culture - Preliminary Blood No Growth after 96 hours Assessment and Plan Assessment: Group D enterococcus bacteremia - repeat blood culture negative for 24 hours, I believe these will need to be negative for 72 prior to PICC line as it took 72 hours for initial cultures become positive. - ID recommendations appreciated-will need at least 3 weeks of IV antibiotics secondary to bacteremia which is likely from the spleen in origin -Had an echocardiogram this admission which did not show any concerns for vegetation Constipation -Patient refusing lactulose this was transitioned to MiraLAX Decompensated congestive heart failure, ejection fraction 55-60% - IV lasix for one additional day -No indication for beta madelaine or FROYLAN inhibitor -Cardiology recommendations Splenic hemorrhage status post open splenectomy - Management as per surgical team, cleared for anticoagulation and restarted on 11/06 -Has received 3 units of blood and 5 units of FFP -Pain control -Antiemetics -PT/OT -Avoid additional anticoagulant until approved by surgery. -We will need appointment with Dr. Tyler in 14 days after splenectomy for administration for vaccines. Attempt to make appointment for her prior to discharge. Acute blood loss anemia, stable - with iron deficiency anemia 10/11/17 ferritin 37 -Status post 3 units of packed red blood cells -Follow CBC - Once bowel function returned could consider resuming oral iron therapy Supratherapeutic INR with mechanical heart valve-now subtherapeutic as has her first -Received 4 mg of Coumadin on 11/06 and ordered 4 mg of Coumadin for tonight. I have not asked pharmacy to dose Coumadin at this time. -Patient is status post 5 mg of vitamin K as well as 5 units of FFP. She does have a history of to mechanical aortic valve (X2) with a history of valvular stenosis and subtherapeutic Coumadin levels leading to stroke. She is also had aortic root repair. - Cardiology consultation - Follow INRs closely and monitor for signs of valve malfunction. Right lower extremity cellulitis, improving -Vancomycin due to have one more day but this will be extended secondary to bacteremia Chronic: Osteoarthritis Severe kyphosis and scoliosis Marfan syndrome History of hepatitis C History of IVDA Multiple episodes of spontaneous pneumothorax and history of lobectomy DVT prophylaxis: SCDs Discussed with: Patient, nursing, Anticipated discharge: 3-[address]: rehab. guardian being notified by case management A total of 35 minutes was spent on the care of this complex patient more than 50 % of the time was spent in counseling and care coordination.
[2017-11-07 16:30] LABS: Glucose,Whole Blood 114 mg/dL (75-99)
[2017-11-07] MEDS ORDERED: WARFARIN 2 MG TAB PO ONE (18:00)
[2017-11-07] MEDS: OLANZapine 10 MG TAB PO SCH (20:10)
--- NOTE | 2017-11-07 21:55 | P.PN ---
Subjective Progress Note Date: 11/07/17 Principal diagnosis: Abdominal pain This is a 32-year-old female with significant past health history of Marfan syndrome, multiple aortic valve replacement starting on chronic Coumadin , history of hepatitis C. Patient presented to [facility] emergency center on November 02 with complaints of abdominal pain. Her INR was at 9. 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 She was initially admitted into intensive care. Patient subsequently developed lethargy and due to concern for active splenic hemorrhage she was given additional vitamin K and fresh frozen plasma and on the morning of November 03 she developed worsening abdominal pain and her hemoglobin had dropped down to 5.9 and INR was 1.9. She got underwent a repeat CT of the abdomen and pelvis showing worsening enlargement of the spleen and hemoperitoneum. Patient was taken to the OR emergently by Dr. Centeno and performed an open splenectomy. Patient returned to the ICU intubated and was subsequently extubated and transferred to the selective care unit. Her most recent chest x-ray yesterday showed congestive heart failure with pleural effusions and lower lobe pulmonary infiltrates. Chest x-ray appears worse from last exam. She has been seen and followed by cardiology and Coumadin is to be resumed once cleared by Dr. Centeno. Patient was also followed by Dr. Pritchard for intensive care management. Regarding blood cultures, patient had 1 drawn on November 02 at 920 5 in the morning that is showing no growth after 72 hours. Second blood culture done at 935 showing group D enterococcus. Patient has been afebrile since admission. Initial white count was 9.3 currently at 14.6. Patient has been on IV antibiotics in the form of vancomycin since November 02 and cefepime was started today. Patient is currently on a clear liquid diet. Patient states she is passing gas but has not had a bowel movement. She is complaining of significant abdominal pain. She denies any difficulty urinating. She has a TEDDY drain with serosanguineous fluid. She does complain of a little shortness of breath and the cough is nonproductive. 11/07/2017 patient is feeling somewhat better. She's been up to the commode chair multiple times. She is up and has walked in the hallway. Her pain is better controlled. Her crampy abdominal pain is improved. She's been able to eat some full liquids without nausea or emesis. She is passing flatus without difficulty. Objective - Vital Signs Vital signs: Vital Signs Temp 97.7 F 11/07/17 20:00 Pulse 98 11/07/17 20:00 Resp 17 11/07/17 20:00 BP 108/59 11/07/17 20:00 Pulse Ox 90 L 11/07/17 20:00 Intake & Output 11/07/17 11/07/17 11/08/17 06:59 18:59 06:59 Intake Total 1362 10 Output Total 220 340 40 Balance -220 1022 -30 Weight 54.2 kg Intake: IV 500 10 Invasive Line 4 10 Vancomycin 1,000 mg In 500 Sodium Chloride 0.9% 250 ml @ 125 mls/hr IVPB Q8HR [facility] Rx#:[id number] Intake, IV Titration 160 Amount Dextrose 5%-0.45% NaCl 1, 160 000 ml @ 20 mls/hr IV . Q24H [facility] Rx#:[id number] Oral 702 Output: Drainage 20 140 40 Left Lower Abdomen 20 140 40 Urine 200 200 Other: Voiding Method Bedside Commode Bedside Commode Bedside Commode Diaper Diaper Diaper Incontinent Incontinent Incontinent # Voids 0 ABP, PAP, CO, CI - Last Documented Arterial Blood Pressure 114/64 - Exam Gen: This is a 32-year-old female. She is found sitting on a commode where she states she is sitting to rest for right now. HEENT: Head is atraumatic, normocephalic. Pupils equal, round. Sclerae is anicteric. Conjunctiva pink. Mucous membranes of the mouth are moist. Dentition is in poor order. NECK: Supple. No JVD. No lymphadenopathy. No thyromegaly. LUNGS: Clear to auscultation. No wheezes or rhonchi. No intercostal retractions. HEART: Regular rate and rhythm. No murmur. Significant scoliosis with noted stage I decubitus with erythema to the mid thoracic area with deformity to the left side from scoliosis. ABDOMEN: Soft. Bowel sounds are present. Generalized tenderness. Dressing in place to the midline shows one small area of blood staining. There is a TEDDY drain to the left with serosanguineous drainage. EXTREMITIES: No pedal edema. No calf tenderness. NEUROLOGICAL: Patient is awake, alert and oriented x3. - Labs CBC & Chem 7: 11/07/17 05:21 11/06/17 06:11 Labs: Abnormal Lab Results - Last 24 Hours (Table) 11/02/17 11/07/17 11/07/17 Range/Units 01:04 05:21 05:21 WBC 15.1 H (3.8-10.6) k/uL RBC 3.62 L (3.80-5.40) m/uL Hgb 9.0 L (11.4-16.0) gm/dL Hct 29.4 L (34.0-46.0) % MCH 24.8 L (25.0-35.0) pg MCHC 30.6 L (31.0-37.0) g/dL RDW 19.5 H (11.5-15.5) % Plt Count 490 H (150-450) k/uL PT 13.5 H (9.0-12.0) sec INR 1.4 H (<1.2) POC Glucose (mg/dL) (75-99) mg/dL Crossmatch See Detail 11/07/17 11/07/17 Range/Units 11:17 16:27 WBC (3.8-10.6) k/uL RBC (3.80-5.40) m/uL Hgb (11.4-16.0) gm/dL Hct (34.0-46.0) % MCH (25.0-35.0) pg MCHC (31.0-37.0) g/dL RDW (11.5-15.5) % Plt Count (150-450) k/uL PT (9.0-12.0) sec INR (<1.2) POC Glucose (mg/dL) 122 H 114 H (75-99) mg/dL Crossmatch Microbiology - Last 24 Hours (Table) 11/06/17 09:35 Blood Culture - Preliminary Blood No Growth after 24 hours 11/06/17 09:35 Blood Culture - Preliminary Blood No Growth after 24 hours 11/02/17 09:25 Blood Culture - Preliminary Blood No Growth after 120 hours Laboratory Results WBC 15.1 k/uL (3.8-10.6) H 11/07/17 05:21 RBC 3.62 m/uL (3.80-5.40) L 11/07/17 05:21 Hgb 9.0 gm/dL (11.4-16.0) L 11/07/17 05:21 Hct 29.4 % (34.0-46.0) L 11/07/17 05:21 MCV 81.1 fL (80.0-100.0) 11/07/17 05:21 MCH 24.8 pg (25.0-35.0) L 11/07/17 05:21 MCHC 30.6 g/dL (31.0-37.0) L 11/07/17 05:21 RDW 19.5 % (11.5-15.5) H 11/07/17 05:21 Plt Count 490 k/uL (150-450) H 11/07/17 05:21 Neutrophils % 69 % 11/01/17 23:10 Lymphocytes % 20 % 11/01/17 23:10 Monocytes % 6 % 11/01/17 23:10 Eosinophils % 2 % 11/01/17 23:10 Basophils % 1 % 11/01/17 23:10 Neutrophils # 4.5 k/uL (1.3-7.7) 11/01/17 23:10 Lymphocytes # 1.3 k/uL (1.0-4.8) 11/01/17 23:10 Monocytes # 0.4 k/uL (0-1.0) 11/01/17 23:10 Eosinophils # 0.1 k/uL (0-0.7) 11/01/17 23:10 Basophils # 0.1 k/uL (0-0.2) 11/01/17 23:10 Hypochromasia Marked 11/07/17 05:21 Poikilocytosis Marked 11/07/17 05:21 Anisocytosis Slight 11/07/17 05:21 Microcytosis Slight 11/07/17 05:21 PT 13.5 sec (9.0-12.0) H 11/07/17 05:21 INR 1.4 (<1.2) H 11/07/17 05:21 APTT 64.7 sec (22.0-30.0) H 11/02/17 00:01 Sample Site [place] 11/03/17 11:14 ABG pH 7.35 (7.35-7.45) 11/03/17 11:14 ABG pCO2 44 mmHg (35-45) 11/03/17 11:14 ABG pO2 70 mmHg (83-108) L 11/03/17 11:14 ABG HCO3 24 mmol/L (21-25) 11/03/17 11:14 ABG Total CO2 25 mmol/L (19-24) H 11/03/17 11:14 ABG O2 Saturation 94.9 % (94-97) 11/03/17 11:14 ABG Base Excess -1.6 mmol/L 11/03/17 11:14 Epifanio Test Yes 11/03/17 11:14 FiO2 40 % 11/03/17 11:14 Sodium 135 mmol/L (137-145) L 11/06/17 06:11 Potassium 4.0 mmol/L (3.5-5.1) 11/06/17 06:11 Chloride 103 mmol/L (98-107) 11/06/17 06:11 Carbon Dioxide 24 mmol/L (22-30) 11/06/17 06:11 Anion Gap 8 mmol/L 11/06/17 06:11 BUN 5 mg/dL (7-17) L 11/06/17 06:11 Creatinine 0.35 mg/dL (0.52-1.04) L 11/06/17 06:11 Est GFR (MDRD) Af Amer >60 (>60 ml/min/1.73 sqM) 11/06/17 06:11 Est GFR (MDRD) Non-Af >60 (>60 ml/min/1.73 sqM) 11/06/17 06:11 Glucose 96 mg/dL (74-99) 11/06/17 06:11 POC Glucose (mg/dL) 114 mg/dL (75-99) H 11/07/17 16:27 POC Glu [employer] Specialist ID Ana Del Toro 11/07/17 16:27 Plasma Lactic Acid [place] 1.2 mmol/L (0.7-2.0) 11/02/17 09:25 Calcium 8.1 mg/dL (8.4-10.2) L 11/06/17 06:11 Phosphorus 3.6 mg/dL (2.5-4.5) 11/06/17 06:11 Magnesium 1.6 mg/dL (1.6-2.3) 11/06/17 06:11 Total Bilirubin 1.8 mg/dL (0.2-1.3) H 11/06/17 06:11 AST 54 U/L (14-36) H 11/06/17 06:11 ALT 29 U/L (9-52) 11/06/17 06:11 Alkaline Phosphatase 114 U/L (38-126) 11/06/17 06:11 Total Protein 6.8 g/dL (6.3-8.2) 11/06/17 06:11 Albumin 3.0 g/dL (3.5-5.0) L 11/06/17 06:11 Urine Color Light Yellow 11/02/17 01:52 Urine Appearance Clear (Clear) 11/02/17 01:52 Urine pH 6.0 (5.0-8.0) 11/02/17 01:52 Ur Specific [place] 1.027 (1.001-1.035) 11/02/17 01:52 Urine Protein Negative (Negative) 11/02/17 01:52 Urine Glucose (UA) Negative (Negative) 11/02/17 01:52 Urine Ketones Negative (Negative) 11/02/17 01:52 Urine Blood Trace (Negative) H 11/02/17 01:52 Urine Nitrite Negative (Negative) 11/02/17 01:52 Urine Bilirubin Negative (Negative) 11/02/17 01:52 Urine Urobilinogen <2.0 mg/dL (<2.0) 11/02/17 01:52 Ur Leukocyte Esterase Moderate (Negative) H 11/02/17 01:52 Urine RBC 8 /hpf (0-5) H 11/02/17 01:52 Urine WBC 7 /hpf (0-5) H 11/02/17 01:52 Ur Squamous Epith Cells 1 /hpf (0-4) 11/02/17 01:52 Urine Mucus Rare /hpf (None) H 11/02/17 01:52 Urine HCG, Qual Not Detected (Not Detectd) 11/02/17 10:10 Stool Occult Blood Negative (Negative) 11/02/17 16:30 Vancomycin Trough 16.5 ug/mL 11/06/17 06:11 Urine Opiates Screen Detected (NotDetected) H 11/02/17 01:46 Ur Oxycodone Screen Not Detected (NotDetected) 11/02/17 01:46 Urine Methadone Screen Not Detected (NotDetected) 11/02/17 01:46 Ur Propoxyphene Screen Not Detected (NotDetected) 11/02/17 01:46 Ur Barbiturates Screen Not Detected (NotDetected) 11/02/17 01:46 U Tricyclic Antidepress Detected (NotDetected) H 11/02/17 01:46 Ur Phencyclidine Scrn Not Detected (NotDetected) 11/02/17 01:46 Ur Amphetamines Screen Not Detected (NotDetected) 11/02/17 01:46 U Methamphetamines Scrn Not Detected (NotDetected) 11/02/17 01:46 U Benzodiazepines Scrn Not Detected (NotDetected) 11/02/17 01:46 Urine Cocaine Screen Not Detected (NotDetected) 11/02/17 01:46 U Marijuana (THC) Screen Not Detected (NotDetected) 11/02/17 01:46 Blood Type A Positive 11/02/17 01:04 Blood Type Recheck No 11/02/17 01:04 Antibody Screen NEGATIVE 11/02/17 01:04 Crossmatch See Detail 11/02/17 01:04 Transfuse Plasma 11/03/2017 11/03/17 07:50 Spec Expiration Date 11/05/2017 - 230311/02/17 01:04 Microbiology 11/06/17 09:35 Blood Blood Culture - Preliminary No Growth after 24 hours 11/06/17 09:35 Blood Blood Culture - Preliminary No Growth after 24 hours 11/02/17 09:25 Blood Blood Culture - Preliminary No Growth after 120 hours 11/02/17 09:35 Blood Blood Culture Gram Stain - Preliminary 11/02/17 09:35 Blood Blood Culture - Preliminary Group D Enterococcus 11/02/17 09:35 Blood Blood Culture - Final Assessment and Plan (1) Abdominal pain Current Visit: Yes Status: Acute Code(s): R10.9 - UNSPECIFIED ABDOMINAL PAIN SNOMED Code(s): 40495084 (2) Splenic hemorrhage Current Visit: Yes Status: Acute Code(s): D73.89 - OTHER DISEASES OF SPLEEN SNOMED Code(s): 32996694 (3) Enterococcal bacteremia Narrative/Plan: Patient relates that her pain is under some better controlled today. Still having ongoing abdominal pain. Removing her diet to clear liquids to full liquids and see how she can tolerate that given some improvement. As noted laboratories isolated out enterococcus from her blood culture. She is noted to have a penicillin ALLERGY that occurred when she was a teenager and appears to be significant. Consequently for now vancomycin therapy will be utilized. The abdomen is the likely current source of the sepsis and bacteremia. We'll need IV access once evidence of clearance of her bacteremia. With aortic valve replacement is emperative that bacteremia is fully treated. Follow up blood cultures are negative so far. Current Visit: Yes Status: Acute Code(s): R78.81 - BACTEREMIA; B95.2 - ENTEROCOCCUS THE CAUSE OF DISEASES CLASSIFIED ELSEWHERE SNOMED Code(s): 627836555985
[2017-11-08] MEDS: MORPHINE SULFATE 4 MG/ML SYRINGE IVP PRN ×5 (03:02→17:21)
[2017-11-08] MEDS: PANTOPRAZOLE 40 MG TABLET PO SCH (06:11)
[2017-11-08 06:17] LABS: Anisocytosis Slight; HCT 30.3 % (34.0-46.0); Hypochromasia Marked; MCH 24.3 pg (25.0-35.0); MCHC 29.8 g/dL (31.0-37.0); MCV 81.4 fL (80.0-100.0); Microcytosis Slight; Platelet Count 535 k/uL (150-450); Poikilocytosis Marked; RBC 3.73 m/uL (3.80-5.40); RDW 19.3 % (11.5-15.5)
[2017-11-08 06:21] LABS: Prothrombin Time 17.8 sec (9.0-12.0)
[2017-11-08 06:35] LABS: ALT 35 U/L (9-52); AST 35 U/L (14-36); Albumin 2.9 g/dL (3.5-5.0); Alkaline Phosphatase 287 U/L (38-126); Anion Gap 8 mmol/L; Blood Urea Nitrogen 7 mg/dL (7-17); Calcium 8.3 mg/dL (8.4-10.2); Carbon Dioxide 31 mmol/L (22-30); Chloride 100 mmol/L (98-107); Glucose 80 mg/dL (74-99); Potassium 3.7 mmol/L (3.5-5.1); Sodium 139 mmol/L (137-145); Total Bilirubin 0.9 mg/dL (0.2-1.3); Total Protein 6.4 g/dL (6.3-8.2)
--- NOTE | 2017-11-08 07:57 | P.PN ---
Subjective Progress Note Date: 11/08/17 Principal diagnosis: Patient is seen and examined in follow-up for splenic hemorrhage and bacteremia Patient seen and examined, no new complaints, reports ongoing abdominal pain but under better control now. Patient not passing bowel movements but is passing gas as and tolerate by mouth intake. Patient participated with physical therapy and was able to walk with assistance. Continues to have TEDDY drain in place denies any fevers chills chest pain or trouble breathing Objective - Vital Signs Vital signs: Vital Signs Temp 97.5 F L 11/08/17 04:00 Pulse 87 11/08/17 04:00 Resp 19 11/08/17 04:00 BP 108/55 11/08/17 04:00 Pulse Ox 99 11/08/17 04:00 Intake & Output 11/07/17 11/08/17 11/08/17 18:59 06:59 18:59 Intake Total 1362 20 240 Output Total 340 125 Balance 1022 -105 240 Weight 53.5 kg Intake: IV 500 20 Invasive Line 4 20 Vancomycin 1,000 mg In 500 Sodium Chloride 0.9% 250 ml @ 125 mls/hr IVPB Q8HR [facility] Rx#:[id number] Intake, IV Titration 160 Amount Dextrose 5%-0.45% NaCl 1, 160 000 ml @ 20 mls/hr IV . Q24H [facility] Rx#:[id number] Oral 702 240 Output: Drainage 140 125 Left Lower Abdomen 140 125 Urine 200 Other: Voiding Method Bedside Commode Bedside Commode Diaper Diaper Incontinent Incontinent # Voids 0 ABP, PAP, CO, CI - Last Documented Arterial Blood Pressure 114/64 - Exam Constitutional: vital signs stable, Not in acute distress, pleasant, conversant Lungs: Clear to auscultation bilaterally, clear to percussion, normal respiratory effort no use of accessory muscles Cardiovascular: Regular rate and rhythm, mechanical clicks, systolic murmur no gallops, no rubs, no peripheral edema Gastrointestinal: Mildly distended overall soft, diffuse mild tenderness to palpation, surgical dressings in place draining clean and intact except for one small spots of dry blood over the midline incision. TEDDY drain in place with serous drainage no blood. Bowel sounds are positive Extremities: No digital cyanosis or clubbing, peripheral pulses palpable and equal over bilateral radial arteries and dorsalis pedis artery, no calf muscle tenderness Psych: Alert, oriented to place, person and time, appropriate affect, fair judgment - Labs CBC & Chem 7: 11/08/17 05:28 11/08/17 05:28 Labs: Abnormal Lab Results - Last 24 Hours (Table) 11/07/17 11/07/17 11/08/17 Range/Units 11:17 16:27 05:28 RBC 3.73 L (3.80-5.40) m/uL Hgb 9.0 L (11.4-16.0) gm/dL Hct 30.3 L (34.0-46.0) % MCH 24.3 L (25.0-35.0) pg MCHC 29.8 L (31.0-37.0) g/dL RDW 19.3 H (11.5-15.5) % Plt Count 535 H (150-450) k/uL PT (9.0-12.0) sec INR (<1.2) Carbon Dioxide (22-30) mmol/L Creatinine (0.52-1.04) mg/dL POC Glucose (mg/dL) 122 H 114 H (75-99) mg/dL Calcium (8.4-10.2) mg/dL Alkaline Phosphatase (38-126) U/L Albumin (3.5-5.0) g/dL 11/08/17 11/08/17 Range/Units 05:28 05:28 RBC (3.80-5.40) m/uL Hgb (11.4-16.0) gm/dL Hct (34.0-46.0) % MCH (25.0-35.0) pg MCHC (31.0-37.0) g/dL RDW (11.5-15.5) % Plt Count (150-450) k/uL PT 17.8 H (9.0-12.0) sec INR 2.0 H (<1.2) Carbon Dioxide 31 H (22-30) mmol/L Creatinine 0.43 L (0.52-1.04) mg/dL POC Glucose (mg/dL) (75-99) mg/dL Calcium 8.3 L (8.4-10.2) mg/dL Alkaline Phosphatase 287 H (38-126) U/L Albumin 2.9 L (3.5-5.0) g/dL Microbiology - Last 24 Hours (Table) 11/02/17 09:35 Blood Culture Gram Stain - Final Blood Blood Culture - Preliminary Aerococcus species 11/06/17 09:35 Blood Culture - Preliminary Blood No Growth after 24 hours 11/06/17 09:35 Blood Culture - Preliminary Blood No Growth after 24 hours 03 09:25 Blood Culture - Preliminary Blood No Growth after 120 hours Assessment and Plan Assessment: Patient is a 32-year-old female with a past medical history of Marfan syndrome, multiple aortic valve replacement on Coumadin, chronic pain, and scoliosis who presented to the emergency department with complaints of abdominal pain. In the emergency department she underwent an extensive evaluation. Her initial vital signs are found to be within normal limits. Initial laboratory analysis showed a significant drop in her hemoglobin. Her hemoglobin has chronically been between 9.5-11 for the past 2 months and prior to that was in the normal range. Her INR was found to be greater than 9. 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 There is concern about reversing her INR and she has a mechanical valve. She did not appear to be actively bleeding. After Dr. Centeno from surgery was consulted. She was made nothing by mouth and admitted to the ICU the [facility] care overflow. Since her last discharge the patient has been assigned a court appointed guardian. She has also been moved into a senior care. It is likely that she had not been taking her Coumadin prior and with moving to the senior care began taking this medication on a regular basis and therefore became supratherapeutic. On the morning after admission patient had significant lethargy despite complaining of pain. She states that she had not slept well the night prior. On repeat CBC her hemoglobin had actually increased from 7.7-8.4. Dr. Centeno reviewed CT scan with the radiologist and there was concern for active splenic hemorrhage. She was given additional vitamin K as well as FFP. She was started on serial CBCs serial PT/INRs. Her INR had decreased to 3.4 by 9 p.m. on 11/02 she was ordered additional FFP. Suddenly on the morning of 11/03 at approximately 4 AM she started having worsening of her abdominal pain. Stat hemoglobin and INR were rechecked. Her hemoglobin had dropped to 5.9 and INR had improved to 1.9. She was ordered 2 units of packed red blood cells and additional 2 units of FFP. Repeat CT abdomen and pelvis was ordered which showed worsening enlargement of the spleen and hemoperitoneum. Dr. Centeno emergently to the patient to operating room and performed a open splenectomy. As of the afternoon of 11/03 she had a total of 3 units of packed red blood cells and 5 units of FFP. She returned to the ICU intubated. She was awake and following commands and was subsequently extubated. Her HgB and INR remained stable after surgery she was seen by cardiology. She has been maintained off anticoagulation. Her hemoglobin has been stable since surgery. She did become slightly hypoglycemic and necessitated D5 1/2 NS infusion. She has been progressing well. She developed increasing shortness of breath on 11/04 and was found to have slight fluid overload. On 11/05 she came back to have 1/2 blood cultures positive for enterococcus. Infectious disease was consulted and recommended 3 weeks of IV antibiotics with line to be placed after bloodstream has been cleared. He was also determined that she was okay to restart anticoagulation on 11/05 by surgery. Plan: #Group D enterococcus bacteremia Currently on vancomycin Afebrile, leukocytosis resolved ID recommending at least 3 weeks of IV antibiotic PICC line to be inserted once blood cultures are negative 2-D echo performed on November 04 showed no evidence of valvular vegetations #Splenic hemorrhage supratherapeutic INR status post splenectomy postoperative day 4 Tolerated procedure well Patient has received multiple units of blood transfusions, fresh frozen plasma and vitamin K to reverse supratherapeutic INR initially upon presentation. Surgery following Patient was cleared to start anticoagulation for mechanical heart valve TEDDY drain in place with serous drainage Pain control Patient will follow up outpatient with infectious disease to receive appropriate vaccinations in 2 weeks postop #Acute blood loss anemia secondary to splenic hemorrhage and supratherapeutic INR This has been stable now Status post blood transfusion 2 units during this hospital course #Mechanical aortic valve on Coumadin, for outpatient follow-up and compliance, presented to the supratherapeutic INR Resume Coumadin patient cleared by general surgery Goal INR 2.5-3.5 #Mild pulmonary edema possibly secondary to mild CHF exacerbation, most recent left ventricular ejection fraction of 5560% Continue with by mouth Lasix This has resolved DVT prophylaxis currently on Coumadin Chronic conditions Marfan syndrome Substance abuse Osteoarthritis Hepatitis C Anticipated discharge to subacute rehab facility in 48 hours. Patient will require appointment guardianship to assist with outpatient follow- up and care
[2017-11-08] MEDS: IPRATROPIUM-ALBUTEROL 3 ML NEB INHALATION SCH ×3 (08:07→19:43)
[2017-11-08] MEDS: VANCOMYCIN 1,000 MG in SODIUM CHLORIDE 0.9% 250 ML IVPB SCH ×3 (08:43→23:14)
[2017-11-08] MEDS: GABAPENTIN 100 MG CAP PO SCH ×3 (08:44→21:18)
[2017-11-08] MEDS: DULoxetine HCL 60 MG CAPSULE.DR PO SCH (08:44)
[2017-11-08] MEDS: POLYETHYLENE GLYCOL 3350 17 GM POWD.PACK PO SCH (08:44)
[2017-11-08] MEDS: DEXTROSE 5%-0.45% NACL 1,000 ML IV SCH (08:44)
[2017-11-08] MEDS: FUROSEMIDE 10 MG/ML 2 ML VIAL IV SCH (08:44)
[2017-11-08 11:35] LABS: Glucose,Whole Blood 104 mg/dL (75-99)
--- NOTE | 2017-11-08 12:06 | P.PN ---
Subjective Progress Note Date: 11/08/17 Principal diagnosis: Splenic hemorrhage patient doing well today. Her pain is improving. She is passing flatus. No bowel movements since yesterday. TEDDY output serous varying in output. Objective - Vital Signs Vital signs: Vital Signs Temp 96.5 F L 11/08/17 08:00 Pulse 95 11/08/17 08:00 Resp 19 11/08/17 04:00 BP 98/54 11/08/17 08:00 Pulse Ox 96 11/08/17 08:00 Intake & Output 11/07/17 11/08/17 11/08/17 18:59 06:59 18:59 Intake Total 1362 20 240 Output Total 340 125 Balance 1022 -105 240 Weight 53.5 kg Intake: IV 500 20 Invasive Line 4 20 Vancomycin 1,000 mg In 500 Sodium Chloride 0.9% 250 ml @ 125 mls/hr IVPB Q8HR [facility] Rx#:[id number] Intake, IV Titration 160 Amount Dextrose 5%-0.45% NaCl 1, 160 000 ml @ 20 mls/hr IV . Q24H [facility] Rx#:[id number] Oral 702 240 Output: Drainage 140 125 Left Lower Abdomen 140 125 Urine 200 Other: Voiding Method Bedside Commode Bedside Commode Bedside Commode Diaper Diaper Diaper Incontinent Incontinent Incontinent # Voids 0 ABP, PAP, CO, CI - Last Documented Arterial Blood Pressure 114/64 - Exam abdomen: Soft, mild distention, mild tenderness, incision clean and dry - Labs CBC & Chem 7: 11/08/17 05:28 11/08/17 05:28 Labs: Abnormal Lab Results - Last 24 Hours (Table) 11/07/17 11/08/17 11/08/17 Range/Units 16:27 05:28 05:28 RBC 3.73 L (3.80-5.40) m/uL Hgb 9.0 L (11.4-16.0) gm/dL Hct 30.3 L (34.0-46.0) % MCH 24.3 L (25.0-35.0) pg MCHC 29.8 L (31.0-37.0) g/dL RDW 19.3 H (11.5-15.5) % Plt Count 535 H (150-450) k/uL PT 17.8 H (9.0-12.0) sec INR 2.0 H (<1.2) Carbon Dioxide (22-30) mmol/L Creatinine (0.52-1.04) mg/dL POC Glucose (mg/dL) 114 H (75-99) mg/dL Calcium (8.4-10.2) mg/dL Alkaline Phosphatase (38-126) U/L Albumin (3.5-5.0) g/dL 11/08/17 11/08/17 Range/Units 05:28 11:23 RBC (3.80-5.40) m/uL Hgb (11.4-16.0) gm/dL Hct (34.0-46.0) % MCH (25.0-35.0) pg MCHC (31.0-37.0) g/dL RDW (11.5-15.5) % Plt Count (150-450) k/uL PT (9.0-12.0) sec INR (<1.2) Carbon Dioxide 31 H (22-30) mmol/L Creatinine 0.43 L (0.52-1.04) mg/dL POC Glucose (mg/dL) 104 H (75-99) mg/dL Calcium 8.3 L (8.4-10.2) mg/dL Alkaline Phosphatase 287 H (38-126) U/L Albumin 2.9 L (3.5-5.0) g/dL Microbiology - Last 24 Hours (Table) 11/06/17 09:35 Blood Culture - Preliminary Blood No Growth after 48 hours 11/06/17 09:35 Blood Culture - Preliminary Blood No Growth after 48 hours 11/02/17 09:25 Blood Culture - Final Blood No Growth after 144 hours 11/02/17 09:35 Blood Culture Gram Stain - Final Blood Blood Culture - Preliminary Aerococcus species Assessment and Plan (1) Splenic hemorrhage Narrative/Plan: Will increase diet. Continue increasing activity. Continue stool softeners. Monitor TEDDY output. Current Visit: Yes Status: Acute Code(s): D73.89 - OTHER DISEASES OF SPLEEN SNOMED Code(s): 22920638
[2017-11-08] MEDS ORDERED: WARFARIN 5 MG TAB PO ONE (18:00)
[2017-11-08] MEDS: MORPHINE ORAL SOLN 10 MG/5 ML CUP PO PRN (21:12)
[2017-11-08] MEDS: OLANZapine 10 MG TAB PO SCH (21:18)
[2017-11-08 22:04] VITALS: RESP 18
[2017-11-09] MEDS: MORPHINE ORAL SOLN 10 MG/5 ML CUP PO PRN (00:22)
[2017-11-09 06:21] LABS: Anisocytosis Slight; HCT 29.2 % (34.0-46.0); HGB 8.8 gm/dL (11.4-16.0); Hypochromasia Marked; MCH 24.3 pg (25.0-35.0); MCHC 30.1 g/dL (31.0-37.0); MCV 80.8 fL (80.0-100.0); Mean Platelet Volume 7.2; Microcytosis Slight; Platelet Count 596 k/uL (150-450); Poikilocytosis Marked; RBC 3.61 m/uL (3.80-5.40); RDW 19.1 % (11.5-15.5); WBC 10.3 k/uL (3.8-10.6)
[2017-11-09] MEDS: PANTOPRAZOLE 40 MG TABLET PO SCH (06:27)
[2017-11-09 06:28] LABS: INR 2.3 (<1.2)
[2017-11-09] MEDS: IPRATROPIUM-ALBUTEROL 3 ML NEB INHALATION SCH ×3 (08:50→19:54)
--- NOTE | 2017-11-09 09:56 | CDI ---
Last Revision, August 2017 Documentation Clarification Form Date: 11/09/2017 8:58:00 AM From: Khadijah Hays RN, CCDS Admit Date: 11/02/2017 1:50:00 AM Patient Name: Arlni Gilmore Visit Number: [id number] Discharge Date: ATTENTION: The Clinical Documentation Specialists (CDI) and [facility] Coding Staff appreciate your assistance in clarifying documentation. Please respond to the clarification below the line at the bottom and electronically sign. The CDI & [facility] Coding staff will review the response and follow-up if needed. Please note: Queries are made part of the Legal Health Record. If you have any questions, please contact the author of this message via ITS. Dr. Bruna Roblero 11/06/17 ID (Dr. Tyler) Progress note: The anterior spleen is the likely current source of the sepsis and bacteremia. History/Risk Factors: Marfan syndrome, Hepatitis C, Heart Failure, CVA/TIA, residual right-side weakness, Clinical Indicators: Present with complaints of abdominal pain. CAT scan of the abdomen/pelvis revealed a vascular mass with bleeding related to a large WBC/Left Shift: WBC 6.5, HGB 7.7, HCT 26.3, UA: Moderate Ur Leukocyte Esterase Lactic acid: 1.0 Blood cultures: 11/02/17 at 9:25 no growth, 11/02/17 at 9:35 Group D enterococcus Vitals signs on admission: 108/52 70 20 97.4, 145/78 103 19 92 11/02/17 SX (Dr. Centeno) Vascular mass within the spleen 11/02/17 Pulmonary: Splenic hemorrhage, secondary to splenic artery cystic necrosis, exacerbated by the patient's surgical procedures as it relates to this disease process. Treatment: ID Consult: 11/06/17 and on going progress notes: (as above) IV Vancomycin Monitor labs IV Fluids Open Splenectomy (11/03/17) In your professional opinion, can you please clarify if these findings signify one of the following conditions, whether the condition is POA, and cause, if known? Sepsis ruled in (POA ) Sepsis ruled out Septic Shock Unable to determine Other, please specify Link or clarify if there is associated (due to/with): Acute organ dysfunction Shock SIRS Criteria--2 or more of the following may indicate SIRS: Core Temperature < 96.8F(36C) or > 101.3F (38.5C) Heart Rate:Tachycardia > 2 SD above normal for age or Bradycardia <10th percentile for age (not due to other stimuli or specific causes) Respiratory Rate > 2 SD above normal for age or mechanical ventilation (not due to anesthesia or neuromuscular disease) White Blood Cell Count Elevated or depressed for age or > 10% bands (not due to chemo) Please continue to document in your progress notes and discharge summary in order to capture severity of illness and risk of mortality. Include clinical findings that support your diagnosis. sepsis ruled out MTDD
[2017-11-09 10:16] VITALS: BMI 16.5
--- NOTE | 2017-11-09 10:20 | CDI ---
Last Revision, August 2017 Documentation Clarification Form Date: 11/09/2017 9:59:00 AM From: Khadijah Hays Admit Date: 11/02/2017 1:50:00 AM Patient Name: Arlin Gilmore Visit Number: [id number] Discharge Date: ATTENTION: The Clinical Documentation Specialists (CDI) and [facility] Coding Staff appreciate your assistance in clarifying documentation. Please respond to the clarification below the line at the bottom and electronically sign. The CDI & [facility] Coding staff will review the response and follow-up if needed. Please note: Queries are made part of the Legal Health Record. If you have any questions, please contact the author of this message via ITS. Dr. Bruna Roblero History/Risk Factors: Marfan syndrome, Hepatitis C, Heart Failure, CVA/TIA, Clinical Indicators: She developed increasing shortness of breath on 11/05 and was found to have slight fluid overload. 10/11/17 progress note: mild pulmonary edema secondary to mild CHF exacerbation, EF 55-60 %. VS/Pulse OX: 133/60 90 18 97.0 93 % 4/L NC Echocardiogram Results: EF between 55-60 % 11/01/17 New interstitial and nodular pulmonary infiltrates at the lung bases compared to old exam and consistent with inflammatory disease. 11/05/17 Chest X Ray: congestive heart failure with pleural effusion and lower lobe pulmonary infiltrate, appears worse than last exam Treatment: Lasix IV Monitor O2 Sat's In your professional opinion, can you please further clarify the and type of CHF if known? Acute Diastolic Heart Failure: Acute Systolic Heart Failure Acute Systolic & Diastolic Heart Failure: Unable to Determine Other, please specify Please continue to document in your progress notes and discharge summary in order to capture severity of illness and risk of mortality. Include clinical findings that support your diagnosis. MTDD
[2017-11-09] MEDS: ALPRAZolam 0.25 MG TAB PO PRN ×2 (10:40→17:14)
[2017-11-09] MEDS: HYDROcodone/APAP 5-325MG 1 EACH TAB PO PRN ×3 (10:40→21:27)
[2017-11-09] MEDS: GABAPENTIN 100 MG CAP PO SCH ×3 (10:41→21:29)
[2017-11-09] MEDS: DULoxetine HCL 60 MG CAPSULE.DR PO SCH (10:41)
[2017-11-09] MEDS: POLYETHYLENE GLYCOL 3350 17 GM POWD.PACK PO SCH (10:41)
[2017-11-09] MEDS: FUROSEMIDE 10 MG/ML 2 ML VIAL IV SCH (10:42)
[2017-11-09] MEDS: DEXTROSE 5%-0.45% NACL 1,000 ML IV SCH (10:42)
[2017-11-09] MEDS: VANCOMYCIN 1,000 MG in SODIUM CHLORIDE 0.9% 250 ML IVPB SCH (10:49)
--- NOTE | 2017-11-09 10:53 | P.PN ---
Subjective Progress Note Date: 11/09/17 Principal diagnosis: Patient is seen and examined in follow-up for splenic hemorrhage s/p splenectomy , mechanical aortic valve on coumadin and bacteremia Patient seen and examined, no new complaints, she reported abdominal pain is really tolerable and willing to switch to [place] for pain control, still did not pass bowel movement for passing gases, tolerating by mouth intake no nausea or vomiting, continues to participate with physical therapy. Patient is eager to leave the hospital and knows that she will be going to a fpc for rehab and IV antibiotics. Objective - Vital Signs Vital signs: Vital Signs Temp 97.0 F L 11/09/17 04:00 Pulse 90 11/09/17 04:00 Resp 18 11/09/17 04:00 BP 133/60 11/09/17 04:00 Pulse Ox 93 L 11/09/17 08:51 Intake & Output 11/08/17 11/09/17 11/09/17 18:59 06:59 18:59 Intake Total 600 Output Total 70 500 Balance 530 -500 Weight 53.9 kg 53.9 kg Intake: Oral 600 Output: Drainage 70 Left Lower Abdomen 70 Urine 500 Other: Voiding Method Bedside Commode Bedside Commode Diaper Diaper Incontinent Incontinent # Voids 3 ABP, PAP, CO, CI - Last Documented Arterial Blood Pressure 114/64 - Exam Constitutional: vital signs stable, Not in acute distress, pleasant, conversant Lungs: Clear to auscultation bilaterally, clear to percussion, normal respiratory effort no use of accessory muscles Cardiovascular: Regular rate and rhythm, mechanical clicks, systolic murmur no gallops, no rubs, no peripheral edema Gastrointestinal: Soft lax no distention, very mild discomfort to palpation especially around surgical incisions. surgical dressings in place draining clean and intact except for one small spots of dry blood over the midline incision. TEDDY drain in place currently empty . Bowel sounds are positive Extremities: No digital cyanosis or clubbing, peripheral pulses palpable and equal over bilateral radial arteries and dorsalis pedis artery, no calf muscle tenderness Psych: Alert, oriented to place, person and time, appropriate affect, fair judgment - Labs CBC & Chem 7: 11/09/17 05:35 11/08/17 05:28 Labs: Abnormal Lab Results - Last 24 Hours (Table) 11/08/17 11/09/17 11/09/17 Range/Units 11:23 05:35 05:35 RBC 3.61 L (3.80-5.40) m/uL Hgb 8.8 L (11.4-16.0) gm/dL Hct 29.2 L (34.0-46.0) % MCH 24.3 L (25.0-35.0) pg MCHC 30.1 L (31.0-37.0) g/dL RDW 19.1 H (11.5-15.5) % Plt Count 596 H (150-450) k/uL PT 21.0 H (9.0-12.0) sec INR 2.3 H (<1.2) POC Glucose (mg/dL) 104 H (75-99) mg/dL Microbiology - Last 24 Hours (Table) 11/06/17 09:35 Blood Culture - Preliminary Blood No Growth after 48 hours 11/06/17 09:35 Blood Culture - Preliminary Blood No Growth after 48 hours 11/02/17 09:25 Blood Culture - Final Blood No Growth after 144 hours Assessment and Plan Assessment: Patient is a 32-year-old female with a past medical history of Marfan syndrome, multiple aortic valve replacement on Coumadin, chronic pain, and scoliosis who presented to the emergency department with complaints of abdominal pain. In the emergency department she underwent an extensive evaluation. Her initial vital signs are found to be within normal limits. Initial laboratory analysis showed a significant drop in her hemoglobin. Her hemoglobin has chronically been between 9.5-11 for the past 2 months and prior to that was in the normal range. Her INR was found to be greater than 9. 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 There is concern about reversing her INR and she has a mechanical valve. She did not appear to be actively bleeding. After Dr. Centeno from surgery was consulted. She was made nothing by mouth and admitted to the ICU the [facility] care overflow. Since her last discharge the patient has been assigned a court appointed guardian. She has also been moved into a retirement. It is likely that she had not been taking her Coumadin prior and with moving to the retirement began taking this medication on a regular basis and therefore became supratherapeutic. On the morning after admission patient had significant lethargy despite complaining of pain. She states that she had not slept well the night prior. On repeat CBC her hemoglobin had actually increased from 7.7-8.4. Dr. Centeno reviewed CT scan with the radiologist and there was concern for active splenic hemorrhage. She was given additional vitamin K as well as FFP. She was started on serial CBCs serial PT/INRs. Her INR had decreased to 3.4 by 9 p.m. on 11/02 she was ordered additional FFP. Suddenly on the morning of 11/03 at approximately 4 AM she started having worsening of her abdominal pain. Stat hemoglobin and INR were rechecked. Her hemoglobin had dropped to 5.9 and INR had improved to 1.9. She was ordered 2 units of packed red blood cells and additional 2 units of FFP. Repeat CT abdomen and pelvis was ordered which showed worsening enlargement of the spleen and hemoperitoneum. Dr. Centeno emergently to the patient to operating room and performed a open splenectomy. As of the afternoon of 11/03 she had a total of 3 units of packed red blood cells and 5 units of FFP. She returned to the ICU intubated. She was awake and following commands and was subsequently extubated. Her HgB and INR remained stable after surgery she was seen by cardiology. She has been maintained off anticoagulation. Her hemoglobin has been stable since surgery. She did become slightly hypoglycemic and necessitated D5 1/2 NS infusion. She has been progressing well. She developed increasing shortness of breath on 11/04 and was found to have slight fluid overload. On 11/05 she came back to have 1/2 blood cultures positive for Group D enterococcus for which she had a 2-D echo that showed no vegetations over the mechanical valve; however, lab his updated her culture results today November 09 to show Aerococcus instead Dr. Tyler commented that this is contamination and patient will not require long-term antibiotics, vancomycin will be stopped today. SHe was also determined that she was okay to restart anticoagulation on 11/05 by surgery. Plan: # Lab updated the blood culture results and now its showing aerococcus , per dr. Tyler its a contamination and the plan has changed now, patient would not need PICC line , and does not need dry pan feeder antibiotics. #Splenic hemorrhage supratherapeutic INR status post splenectomy postoperative day 5 Tolerated procedure well Patient has received multiple units of blood transfusions (3 units), fresh frozen plasma (5 units) and vitamin K to reverse supratherapeutic INR initially upon presentation. Surgery following Patient was cleared to start anticoagulation for mechanical heart valve TEDDY drain in place with serous drainage only Pain control, now with norco Patient will follow up outpatient with infectious disease to receive appropriate vaccinations in 2 weeks postop #Acute blood loss anemia secondary to splenic hemorrhage and supratherapeutic INR, resolved This has been stable now Status post blood transfusion 2 units during this hospital course #Mechanical aortic valve on Coumadin, for outpatient follow-up and compliance, presented to the supratherapeutic INR Resume Coumadin patient cleared by general surgery Goal INR 2.5-3.5 #Mild pulmonary edema possibly secondary to mild diastolic CHF exacerbation, most recent left ventricular ejection fraction of 55-60% Continue with by mouth Lasix This has resolved DVT prophylaxis currently on Coumadin INR 2.3 today Chronic conditions Marfan syndrome Substance abuse Osteoarthritis Hepatitis C Bowel regimen await further input from Gen Surg re: drain removal Anticipated discharge to subacute rehab facility in today or tomorrow Patient will require appointment guardianship to assist with outpatient follow- up and care
[2017-11-09] MEDS: SENNOSIDES 8.6 MG TAB PO SCH (12:33)
[2017-11-09] MEDS: DOCUSATE 100 MG CAP PO SCH ×2 (12:33→21:29)
[2017-11-09] MEDS ORDERED: WARFARIN 5 MG TAB PO ONE (18:00)
[2017-11-09] MEDS ORDERED: MAGNESIUM CITRATE 296 ML BOTTLE PO ONE (18:16)
--- NOTE | 2017-11-09 18:16 | P.PN ---
Subjective Progress Note Date: 11/09/17 Principal diagnosis: Splenic hemorrhage Patient has no new complaints. Says her pain is improved. Still no bowel movement today. Last bowel movement 2-3 days ago. Some flatus. Denies nausea or vomiting. Tolerating diet. TEDDY 60 mL over 12 hours serous Objective - Vital Signs Vital signs: Vital Signs Temp 96.8 F L 11/09/17 08:00 Pulse 94 11/09/17 16:00 Resp 18 11/09/17 04:00 BP 122/59 11/09/17 16:00 Pulse Ox 92 L 11/09/17 16:00 Intake & Output 11/08/17 11/09/17 11/09/17 18:59 06:59 18:59 Intake Total 600 840 Output Total 70 500 400 Balance 530 -500 440 Weight 53.9 kg 53.9 kg Intake: Oral 600 840 Output: Drainage 70 Left Lower Abdomen 70 Urine 500 400 Other: Voiding Method Bedside Commode Bedside Commode Bedside Commode Diaper Diaper Diaper Incontinent Incontinent Incontinent # Voids 3 2 # Bowel Movements 0 ABP, PAP, CO, CI - Last Documented Arterial Blood Pressure 114/64 - Exam Abdomen: Soft, minimally distended, mild incisional tenderness, dressing intact - Labs CBC & Chem 7: 11/09/17 05:35 11/08/17 05:28 Labs: Abnormal Lab Results - Last 24 Hours (Table) 11/09/17 11/09/17 Range/Units 05:35 05:35 RBC 3.61 L (3.80-5.40) m/uL Hgb 8.8 L (11.4-16.0) gm/dL Hct 29.2 L (34.0-46.0) % MCH 24.3 L (25.0-35.0) pg MCHC 30.1 L (31.0-37.0) g/dL RDW 19.1 H (11.5-15.5) % Plt Count 596 H (150-450) k/uL PT 21.0 H (9.0-12.0) sec INR 2.3 H (<1.2) Microbiology - Last 24 Hours (Table) 11/06/17 09:35 Blood Culture - Preliminary Blood No Growth after 72 hours 11/06/17 09:35 Blood Culture - Preliminary Blood No Growth after 72 hours Assessment and Plan (1) Splenic hemorrhage Narrative/Plan: Will send TEDDY fluid for amylase and lipase although clinically doubt pancreatic fistula. We'll give additional cathartics at this time. Continue diet. Probable transfer to rehab tomorrow. Current Visit: Yes Status: Acute Code(s): D73.89 - OTHER DISEASES OF SPLEEN SNOMED Code(s): 67537250
[2017-11-09] MEDS: OLANZapine 10 MG TAB PO SCH (21:29)
--- NOTE | 2017-11-09 23:36 | P.PN ---
Subjective Progress Note Date: 11/09/17 Principal diagnosis: Abdominal pain This is a 32-year-old female with significant past health history of Marfan syndrome, multiple aortic valve replacement starting on chronic Coumadin , history of hepatitis C. Patient presented to [facility] emergency center on November 02 with complaints of abdominal pain. Her INR was at 9. 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 She was initially admitted into intensive care. Patient subsequently developed lethargy and due to concern for active splenic hemorrhage she was given additional vitamin K and fresh frozen plasma and on the morning of November 03 she developed worsening abdominal pain and her hemoglobin had dropped down to 5.9 and INR was 1.9. She got underwent a repeat CT of the abdomen and pelvis showing worsening enlargement of the spleen and hemoperitoneum. Patient was taken to the OR emergently by Dr. Centeno and performed an open splenectomy. Patient returned to the ICU intubated and was subsequently extubated and transferred to the selective care unit. Her most recent chest x-ray yesterday showed congestive heart failure with pleural effusions and lower lobe pulmonary infiltrates. Chest x-ray appears worse from last exam. She has been seen and followed by cardiology and Coumadin is to be resumed once cleared by Dr. Centeno. Patient was also followed by Dr. Pritchard for intensive care management. Regarding blood cultures, patient had 1 drawn on November 02 at 920 5 in the morning that is showing no growth after 72 hours. Second blood culture done at 935 showing group D enterococcus. Patient has been afebrile since admission. Initial white count was 9.3 currently at 14.6. Patient has been on IV antibiotics in the form of vancomycin since November 02 and cefepime was started today. Patient is currently on a clear liquid diet. Patient states she is passing gas but has not had a bowel movement. She is complaining of significant abdominal pain. She denies any difficulty urinating. She has a TEDDY drain with serosanguineous fluid. She does complain of a little shortness of breath and the cough is nonproductive. 11/07/2017 patient is feeling somewhat better. She's been up to the commode chair multiple times. She is up and has walked in the hallway. Her pain is better controlled. Her crampy abdominal pain is improved. She's been able to eat some full liquids without nausea or emesis. She is passing flatus without difficulty. 11/09/2017 patient has continued to improve she is eating solid foods without great difficulty. She was going to rehab to continue her physical therapy. Objective - Vital Signs Vital signs: Vital Signs Temp 97.8 F 11/09/17 20:00 Pulse 80 11/09/17 20:04 Resp 18 11/09/17 20:00 BP 119/63 11/09/17 20:00 Pulse Ox 92 L 11/09/17 20:00 Intake & Output 11/09/17 11/09/17 11/10/17 06:59 18:59 06:59 Intake Total 2180 Output Total 500 400 150 Balance -500 1780 -150 Weight 53.9 kg 53.9 kg Intake: Oral 2180 Output: Urine 500 400 150 Other: Voiding Method Bedside Commode Bedside Commode Bedside Commode Diaper Diaper Diaper Incontinent Incontinent Incontinent # Voids 3 2 1 # Bowel Movements 0 ABP, PAP, CO, CI - Last Documented Arterial Blood Pressure 114/64 - Exam Gen: This is a 32-year-old female. She is found sitting on a commode where she states she is sitting to rest for right now. HEENT: Head is atraumatic, normocephalic. Pupils equal, round. Sclerae is anicteric. Conjunctiva pink. Mucous membranes of the mouth are moist. Dentition is in poor order. NECK: Supple. No JVD. No lymphadenopathy. No thyromegaly. LUNGS: Clear to auscultation. No wheezes or rhonchi. No intercostal retractions. HEART: Regular rate and rhythm. No murmur. Significant scoliosis with noted stage I decubitus with erythema to the mid thoracic area with deformity to the left side from scoliosis. ABDOMEN: Soft. Bowel sounds are present. Generalized tenderness. Dressing in place to the midline shows one small area of blood staining. There is a TEDDY drain to the left with serosanguineous drainage. EXTREMITIES: No pedal edema. No calf tenderness. NEUROLOGICAL: Patient is awake, alert and oriented x3. - Labs CBC & Chem 7: 11/09/17 05:35 11/08/17 05:28 Labs: Abnormal Lab Results - Last 24 Hours (Table) 11/09/17 11/09/17 Range/Units 05:35 05:35 RBC 3.61 L (3.80-5.40) m/uL Hgb 8.8 L (11.4-16.0) gm/dL Hct 29.2 L (34.0-46.0) % MCH 24.3 L (25.0-35.0) pg MCHC 30.1 L (31.0-37.0) g/dL RDW 19.1 H (11.5-15.5) % Plt Count 596 H (150-450) k/uL PT 21.0 H (9.0-12.0) sec INR 2.3 H (<1.2) Microbiology - Last 24 Hours (Table) 11/06/17 09:35 Blood Culture - Preliminary Blood No Growth after 72 hours 11/06/17 09:35 Blood Culture - Preliminary Blood No Growth after 72 hours Laboratory Results WBC 10.3 k/uL (3.8-10.6) 11/09/17 05:35 RBC 3.61 m/uL (3.80-5.40) L 11/09/17 05:35 Hgb 8.8 gm/dL (11.4-16.0) L 11/09/17 05:35 Hct 29.2 % (34.0-46.0) L 11/09/17 05:35 MCV 80.8 fL (80.0-100.0) 11/09/17 05:35 MCH 24.3 pg (25.0-35.0) L 11/09/17 05:35 MCHC 30.1 g/dL (31.0-37.0) L 11/09/17 05:35 RDW 19.1 % (11.5-15.5) H 11/09/17 05:35 Plt Count 596 k/uL (150-450) H 11/09/17 05:35 Neutrophils % 69 % 11/01/17 23:10 Lymphocytes % 20 % 11/01/17 23:10 Monocytes % 6 % 11/01/17 23:10 Eosinophils % 2 % 11/01/17 23:10 Basophils % 1 % 11/01/17 23:10 Neutrophils # 4.5 k/uL (1.3-7.7) 11/01/17 23:10 Lymphocytes # 1.3 k/uL (1.0-4.8) 11/01/17 23:10 Monocytes # 0.4 k/uL (0-1.0) 11/01/17 23:10 Eosinophils # 0.1 k/uL (0-0.7) 11/01/17 23:10 Basophils # 0.1 k/uL (0-0.2) 11/01/17 23:10 Hypochromasia Marked 11/09/17 05:35 Poikilocytosis Marked 11/09/17 05:35 Anisocytosis Slight 11/09/17 05:35 Microcytosis Slight 11/09/17 05:35 PT 21.0 sec (9.0-12.0) H 11/09/17 05:35 INR 2.3 (<1.2) H 11/09/17 05:35 APTT 64.7 sec (22.0-30.0) H 11/02/17 00:01 Sample Site [place] 11/03/17 11:14 ABG pH 7.35 (7.35-7.45) 11/03/17 11:14 ABG pCO2 44 mmHg (35-45) 11/03/17 11:14 ABG pO2 70 mmHg (83-108) L 11/03/17 11:14 ABG HCO3 24 mmol/L (21-25) 11/03/17 11:14 ABG Total CO2 25 mmol/L (19-24) H 11/03/17 11:14 ABG O2 Saturation 94.9 % (94-97) 11/03/17 11:14 ABG Base Excess -1.6 mmol/L 11/03/17 11:14 Epifanio Test Yes 11/03/17 11:14 FiO2 40 % 11/03/17 11:14 Sodium 139 mmol/L (137-145) 11/08/17 05:28 Potassium 3.7 mmol/L (3.5-5.1) 11/08/17 05:28 Chloride 100 mmol/L (98-107) 11/08/17 05:28 Carbon Dioxide 31 mmol/L (22-30) H 11/08/17 05:28 Anion Gap 8 mmol/L 11/08/17 05:28 BUN 7 mg/dL (7-17) 11/08/17 05:28 Creatinine 0.43 mg/dL (0.52-1.04) L 11/08/17 05:28 Est GFR (MDRD) Af Amer >60 (>60 ml/min/1.73 sqM) 11/06/17 06:11 Est GFR (MDRD) Non-Af >60 (>60 ml/min/1.73 sqM) 11/06/17 06:11 Est GFR (CKD-EPI)AfAm >90 (>60 ml/min/1.73 sqM) 11/08/17 05:28 Est GFR (CKD-EPI)NonAf >90 (>60 ml/min/1.73 sqM) 11/08/17 05:28 Glucose 80 mg/dL (74-99) 11/08/17 05:28 POC Glucose (mg/dL) 104 mg/dL (75-99) H 11/08/17 11:23 POC Glu Front Line Supervisor ID Ana Del Toro 11/08/17 11:23 Plasma Lactic Acid [place] 1.2 mmol/L (0.7-2.0) 11/02/17 09:25 Calcium 8.3 mg/dL (8.4-10.2) L 11/08/17 05:28 Phosphorus 3.6 mg/dL (2.5-4.5) 11/06/17 06:11 Magnesium 1.6 mg/dL (1.6-2.3) 11/06/17 06:11 Total Bilirubin 0.9 mg/dL (0.2-1.3) 11/08/17 05:28 AST 35 U/L (14-36) 11/08/17 05:28 ALT 35 U/L (9-52) 11/08/17 05:28 Alkaline Phosphatase 287 U/L (38-126) H 11/08/17 05:28 Total Protein 6.4 g/dL (6.3-8.2) 11/08/17 05:28 Albumin 2.9 g/dL (3.5-5.0) L 11/08/17 05:28 Urine Color Light Yellow 11/02/17 01:52 Urine Appearance Clear (Clear) 11/02/17 01:52 Urine pH 6.0 (5.0-8.0) 11/02/17 01:52 Ur Specific [place] 1.027 (1.001-1.035) 11/02/17 01:52 Urine Protein Negative (Negative) 11/02/17 01:52 Urine Glucose (UA) Negative (Negative) 11/02/17 01:52 Urine Ketones Negative (Negative) 11/02/17 01:52 Urine Blood Trace (Negative) H 11/02/17 01:52 Urine Nitrite Negative (Negative) 11/02/17 01:52 Urine Bilirubin Negative (Negative) 11/02/17 01:52 Urine Urobilinogen <2.0 mg/dL (<2.0) 11/02/17 01:52 Ur Leukocyte Esterase Moderate (Negative) H 11/02/17 01:52 Urine RBC 8 /hpf (0-5) H 11/02/17 01:52 Urine WBC 7 /hpf (0-5) H 11/02/17 01:52 Ur Squamous Epith Cells 1 /hpf (0-4) 11/02/17 01:52 Urine Mucus Rare /hpf (None) H 11/02/17 01:52 Urine HCG, Qual Not Detected (Not Detectd) 11/02/17 10:10 Stool Occult Blood Negative (Negative) 11/02/17 16:30 Vancomycin Trough 16.5 ug/mL 11/06/17 06:11 Urine Opiates Screen Detected (NotDetected) H 11/02/17 01:46 Ur Oxycodone Screen Not Detected (NotDetected) 11/02/17 01:46 Urine Methadone Screen Not Detected (NotDetected) 11/02/17 01:46 Ur Propoxyphene Screen Not Detected (NotDetected) 11/02/17 01:46 Ur Barbiturates Screen Not Detected (NotDetected) 11/02/17 01:46 U Tricyclic Antidepress Detected (NotDetected) H 11/02/17 01:46 Ur Phencyclidine Scrn Not Detected (NotDetected) 11/02/17 01:46 Ur Amphetamines Screen Not Detected (NotDetected) 11/02/17 01:46 U Methamphetamines Scrn Not Detected (NotDetected) 11/02/17 01:46 U Benzodiazepines Scrn Not Detected (NotDetected) 11/02/17 01:46 Urine Cocaine Screen Not Detected (NotDetected) 11/02/17 01:46 U Marijuana (THC) Screen Not Detected (NotDetected) 11/02/17 01:46 Blood Type A Positive 11/02/17 01:04 Blood Type Recheck No 11/02/17 01:04 Antibody Screen NEGATIVE 11/02/17 01:04 Crossmatch See Detail 11/02/17 01:04 Transfuse Plasma 11/03/2017 11/03/17 07:50 Spec Expiration Date 11/05/2017 - 230311/02/17 01:04 Microbiology 11/06/17 09:35 Blood Blood Culture - Preliminary No Growth after 72 hours 11/06/17 09:35 Blood Blood Culture - Preliminary No Growth after 72 hours 11/02/17 09:25 Blood Blood Culture - Final No Growth after 144 hours 11/02/17 09:35 Blood Blood Culture Gram Stain - Final 11/02/17 09:35 Blood Blood Culture - Preliminary Aerococcus species 11/02/17 09:35 Blood Blood Culture - Final Assessment and Plan (1) Abdominal pain Current Visit: Yes Status: Acute Code(s): R10.9 - UNSPECIFIED ABDOMINAL PAIN SNOMED Code(s): 94725783 (2) Splenic hemorrhage Current Visit: Yes Status: Acute Code(s): D73.89 - OTHER DISEASES OF SPLEEN SNOMED Code(s): 94679510 (3) Enterococcal bacteremia Narrative/Plan: Patient relates that her pain is under some better controlled today. Still having ongoing abdominal pain. Removing her diet to clear liquids to full liquids and see how she can tolerate that given some improvement. As noted laboratories isolated out enterococcus from her blood culture. She is noted to have a penicillin ALLERGY that occurred when she was a teenager and appears to be significant. Consequently for now vancomycin therapy will be utilized. The abdomen is the likely current source of the sepsis and bacteremia. We'll need IV access once evidence of clearance of her bacteremia. With aortic valve replacement is emperative that bacteremia is fully treated. Follow up blood cultures are negative so far. 11/09/2017 patient is continue improved. Having no fevers or chills. Having ongoing improvement of abdominal pain and toleration and nutrition. As noted she'll be going to rehab to complete her course of physical rehabilitation. Originally the plan was to have an intravenous line placed to complete her course of antibiotic therapy for her enterococcus bacteremia. However today the laboratories relating that the species is not enterococcus but it is enterococcus. It is into the cultures obtained at the same time at the time of her admission and has a contamination. I'll follow cultures have been negative. She will not require outpatient intravenous antibiotic therapy. She is ready for discharge when surgically cleared. Current Visit: Yes Status: Acute Code(s): R78.81 - BACTEREMIA; B95.2 - ENTEROCOCCUS THE CAUSE OF DISEASES CLASSIFIED ELSEWHERE SNOMED Code(s): 723577999612
[2017-11-10] MEDS: PANTOPRAZOLE 40 MG TABLET PO SCH (06:32)
[2017-11-10 06:45] LABS: Anisocytosis Slight; HCT 30.2 % (34.0-46.0); HGB 8.9 gm/dL (11.4-16.0); Hypochromasia Marked; MCH 24.2 pg (25.0-35.0); MCHC 29.6 g/dL (31.0-37.0); MCV 81.8 fL (80.0-100.0); Mean Platelet Volume 7.8; Microcytosis Slight; Platelet Count 684 k/uL (150-450); Poikilocytosis Moderate; RDW 19.5 % (11.5-15.5); WBC 10.8 k/uL (3.8-10.6)
[2017-11-10 06:54] LABS: INR 2.5 (<1.2); Prothrombin Time 22.6 sec (9.0-12.0)
[2017-11-10 06:57] LABS: Anion Gap 10 mmol/L; Blood Urea Nitrogen 9 mg/dL (7-17); Calcium 8.7 mg/dL (8.4-10.2); Carbon Dioxide 30 mmol/L (22-30); Chloride 101 mmol/L (98-107); Glucose 71 mg/dL (74-99); Potassium 4.4 mmol/L (3.5-5.1); Sodium 141 mmol/L (137-145)
[2017-11-10] MEDS: IPRATROPIUM-ALBUTEROL 3 ML NEB INHALATION SCH (08:12)
--- NOTE | 2017-11-10 08:25 | P.DS ---
Providers Date of admission: 11/02/17 01:50 Attending physician: Bruna Roblero MD Consults: 11/02/17 03:11 Consult Physician Urgent Consulting Provider: Kumar Centeno Consult Reason/Comments: hemangioma vs splenic aneurysm Do you want consulting provider notified?: Yes 11/02/17 12:55 Consult Physician Stat Consulting Provider: Olivia Castro Consult Reason/Comments: Elevated INR Do you want consulting provider notified?: Yes 11/02/17 13:02 Consult Physician Stat Consulting Provider: Damian Pritchard Consult Reason/Comments: icu mtg Do you want consulting provider notified?: Yes 11/06/17 09:06 Consult Physician Routine Consulting Provider: Jah Tyler Consult Reason/Comments: Group D eneterococus 1/2 blood Do you want consulting provider notified?: Yes Primary care physician: Stated None Hospital Course: Diagnoses upon discharge #Splenic hemorrhage supratherapeutic INR status post splenectomy postoperative day 6 # Lab updated the blood culture results and now its showing aerococcus , per dr. Tyler its a contamination and the plan has changed now, patient would not need PICC line , and does not need intermediate antibiotics. #Acute blood loss anemia secondary to splenic hemorrhage and supratherapeutic INR, resolved #Mechanical aortic valve on Coumadin, presented with supratheraputic INR,goal INR 2.5-3.5 #Mild pulmonary edema possibly secondary to mild diastolic CHF exacerbation, most recent left ventricular ejection fraction of 55-60%, resolved # Reactive Thrombocytosis post surgery and splenectomy Chronic conditions Marfan syndrome Substance abuse Osteoarthritis Hepatitis C Patient is a 32-year-old female with a past medical history of Marfan syndrome, multiple aortic valve replacement on Coumadin, chronic pain, and scoliosis who presented to the emergency department with complaints of abdominal pain. In the emergency department she underwent an extensive evaluation. Her initial vital signs are found to be within normal limits. Initial laboratory analysis showed a significant drop in her hemoglobin from her baseline. Her hemoglobin has chronically been between 9.5-11 for the past 2 months and prior to that was in the normal range. Her INR was found to be greater than 9. 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 There is concern about reversing her INR and she has a mechanical valve. She did not appear to be actively bleeding. After Dr. Centeno from surgery was consulted. She was made nothing by mouth and admitted to the ICU the [facility] overflow. Since her last discharge the patient has been assigned a court appointed guardian. She has also been moved into a residential. It is likely that she had not been taking her Coumadin prior and with moving to the residential began taking this medication on a regular basis and therefore became supratherapeutic. On the morning after admission patient had significant lethargy despite complaining of pain. She states that she had not slept well the night prior. On repeat CBC her hemoglobin had actually increased from 7.7-8.4. Dr. Centeno reviewed CT scan with the radiologist and there was concern for splenic hemorrhage. She was given vitamin K as well as FFP to reverse her INR and prevent any further bleeding into the spleen. She was started on serial CBCs serial PT/INRs. Her INR had decreased to 3.4 by 9 p.m. on 11/02 she was ordered additional FFP. Suddenly on the morning of 11/03 at approximately 4 AM she started having worsening of her abdominal pain. Stat hemoglobin and INR were rechecked. Her hemoglobin had dropped to 5.9 and INR had improved to 1.9. She was ordered 2 units of packed red blood cells and additional 2 units of FFP. Repeat CT abdomen and pelvis was ordered which showed worsening enlargement of the spleen and hemoperitoneum. Dr. Centeno emergently to the patient to operating room and performed a open splenectomy. As of the afternoon of 11/03 she had a total of 3 units of packed red blood cells and 5 units of FFP. She returned to the ICU intubated. She was awake and following commands and was subsequently extubated. Her HgB and INR remained stable after surgery she was seen by cardiology. She has been maintained off anticoagulation. Her hemoglobin has been stable since surgery. She did become slightly hypoglycemic and necessitated D5 1/2 NS infusion. She has been progressing well. Which was stopped later on once the patient tolerated by mouth intake. She developed increasing shortness of breath on 11/04 and was found to have slight fluid overload. This was resolved with gentle diuresis. On 11/05 she came back to have 1/2 blood cultures positive for Group D enterococcus for which she had a 2-D echo that showed no vegetations over the mechanical valve; however, lab updated her culture results 11/09 to show Aerococcus instead, Dr. Tyler commented that this is contamination and patient will not require long- term antibiotics which was planned based on the original microbiology results, vancomycin was stopped . SHe was also determined that she was okay to restart anticoagulation on 11/05 by surgery. currently her INR level is theraputic and at goal of 2.5-3.5 due to having mechanical heart valve. Pain control has been switched to PO norco and she reports good control of her pain. Patient was seen and examined on day of discharge, denies any abdominal pain still did not pass any bowel movement however passing gases and tolerating by mouth intake she does not feel bloated, denies any chest pain or trouble breathing laying comfortable in bed she reports having good night sleep. Denies any fevers or chills. She continues to have a TEDDY drain which is only draining small amount of serous fluid. Constitutional: vital signs stable, Not in acute distress, pleasant, conversant Eyes: Pupils equal round reactive to light and accomodation, ENMT: Normocephalic, atraumatic, oropharynx clear, no erythema/exudate Lungs: Clear to auscultation bilaterally, clear to percussion, normal respiratory effort no use of accessory muscles Cardiovascular: Regular rate and rhythm, mechanical clicks, systolic murmur , no gallops, no rubs, no peripheral edema Gastrointestinal: Soft, no tenderness to palpation, surgical dressing clean dry and intact except for same old spots of dry blood, drain in place. Bowel sounds are positive Extremities: No digital cyanosis or clubbing, peripheral pulses palpable and equal over bilateral radial arteries and dorsalis pedis artery, no calf muscle tenderness Psych: Alert, oriented to place, person and time, appropriate affect, intact judgment Patient will be discharged today [facility]. General surgery to follow-up on TEDDY drain Patient to follow-up with infectious disease specialist office 2 weeks post surgery to receive postsplenectomy vaccination Follow-up with PCP in 3-5 days Patient discharged in stable clinical condition, labs reviewed hemoglobin stable. INR at goal now of 2.5-3.5 50 minutes were spent discharging this patient, and more than 50% of the time was spent in counseling the patient and family and in coordinating care. Procedures: open splenectomy Patient Condition at Discharge: Stable Plan - Discharge Summary New Discharge Prescriptions: New ALPRAZolam [Xanax] 0.25 mg PO TID PRN tab PRN Reason: Anxiety Docusate [Colace] 100 mg PO BID cap DULoxetine HCL [Cymbalta] 60 mg PO DAILY capsule. Gabapentin [Neurontin] 100 mg PO TID cap HYDROcodone/APAP 5-325MG [[place] 5-325] 1 each PO Q4HR PRN tab PRN Reason: Pain Ipratropium-Albuterol Nebulize [Duoneb 0.5 mg-3 mg/3 ml Soln] 3 ml INHALATION RT-TID ampul.neb OLANZapine [ZyPREXA] 10 mg PO HS tab Pantoprazole [Protonix] 40 mg PO AC-BRKFST tablet.dr Nina [Senokot] 8.6 mg PO DAILY tab Warfarin [Coumadin] 5 mg PO DAILY #10 tab Continue Baclofen [Lioresal] 10 mg PO QID #60 tab Albuterol Inhaler [Ventolin Hfa Inhaler] 2 puff INHALATION RT-Q8H PRN PRN Reason: sob Ferrous Sulfate [Feosol] 325 mg PO HS@2100 Cholecalciferol [Vitamin D3] 5,000 unit PO DAILY@0800 Discontinued Gabapentin [Neurontin] 400 mg PO TID #90 cap Warfarin [Coumadin] 7.5 mg PO DAILY@0800 Ibuprofen [Motrin] 600 mg PO Q6HR PRN #20 tab PRN Reason: Pain Sulfamethox-Tmp 800-160Mg [Bactrim DS 800-160 mg] 1 tab PO Q12HR OLANZapine [ZyPREXA] 15 mg PO HS@2100 Imipramine [Tofranil] 50 mg PO HS@2100 DULoxetine HCL [Cymbalta] 60 mg PO DAILY@0800 Discharge Medication List Baclofen [Lioresal] 10 mg PO QID #60 tab 07/31/17 [Rx] Albuterol Inhaler [Ventolin Hfa Inhaler] 2 puff INHALATION RT-Q8H PRN 11/01/17 [ History] Cholecalciferol [Vitamin D3] 5,000 unit PO DAILY@0800 11/01/17 [History] Ferrous Sulfate [Feosol] 325 mg PO HS@2100 11/01/17 [History] ALPRAZolam [Xanax] 0.25 mg PO TID PRN tab 11/10/17 [Rx] DULoxetine HCL [Cymbalta] 60 mg PO DAILY capsule. 11/10/17 [Rx] Docusate [Colace] 100 mg PO BID cap 11/10/17 [Rx] Gabapentin [Neurontin] 100 mg PO TID cap 11/10/17 [Rx] HYDROcodone/APAP 5-325MG [[place] 5-325] 1 each PO Q4HR PRN tab 11/10/17 [Rx] Ipratropium-Albuterol Nebulize [Duoneb 0.5 mg-3 mg/3 ml Soln] 3 ml INHALATION RT -TID ampul.neb 11/10/17 [Rx] OLANZapine [ZyPREXA] 10 mg PO HS tab 11/10/17 [Rx] Pantoprazole [Protonix] 40 mg PO AC-BRKFST tablet. 11/10/17 [Rx] Sennosides [Senokot] 8.6 mg PO DAILY tab 11/10/17 [Rx] Warfarin [Coumadin] 5 mg PO DAILY #10 tab 11/10/17 [Rx] Follow up Appointment(s)/Referral(s): Kumar Centeno MD [Medical Doctor] - 1 Week None,Stated [Primary Care Provider] - 1-2 days Terry Briggs MD [STAFF PHYSICIAN] - 1 Week Jah Tyler MD [STAFF PHYSICIAN] - 10 Days Patient Instructions/Handouts: Warfarin (By mouth), Open Splenectomy (DC), Elevated INR (DC) Activity/Diet/Wound Care/Special Instructions: diet as tolerated, activity as tolerated, no heavy lifting Care Plan Goals (MU): follow up with infectious disease, to get post splenectomy vaccination, typically given 2 weeks post splenectomy closely monitor your INR , with goal of 2.5 - 3.5 for mechanical heart valve Discharge Disposition: TRANSFER TO SNF/ECF
[2017-11-10] MEDS: HYDROcodone/APAP 5-325MG 1 EACH TAB PO PRN (09:03)
[2017-11-10] MEDS: ALPRAZolam 0.25 MG TAB PO PRN (09:03)
[2017-11-10] MEDS: FUROSEMIDE 10 MG/ML 2 ML VIAL IV SCH (09:04)
[2017-11-10] MEDS: DOCUSATE 100 MG CAP PO SCH (09:04)
[2017-11-10] MEDS: DULoxetine HCL 60 MG CAPSULE.DR PO SCH (09:04)
[2017-11-10] MEDS: GABAPENTIN 100 MG CAP PO SCH (09:04)
[2017-11-10] MEDS: SENNOSIDES 8.6 MG TAB PO SCH (09:04)
[2017-11-10 09:10] VITALS: BP 122/64; PULSE 91; TEMP 96.9
[2017-11-10] MEDS ORDERED: DOCUSATE 283 MG/5 ML ENEMA RECTAL STA (11:29)
--- NOTE | 2017-11-10 11:40 | P.PN ---
Subjective Progress Note Date: 11/10/17 32-year-old female seen and examined no new events. The discharge plan in progress. Plan is to transfer patient to subacute rehab today. Patient denies any nausea vomiting tolerating diet. Patient states she has not had a bowel movement a couple days. Passing gas. The TEDDY drain put out 40 mL screw the last 12 hours. Objective - Vital Signs Vital signs: Vital Signs Temp 96.9 F L 11/10/17 08:00 Pulse 91 11/10/17 08:00 Resp 18 11/10/17 08:00 BP 122/64 11/10/17 08:00 Pulse Ox 97 11/10/17 08:00 Intake & Output 11/09/17 11/10/17 11/10/17 18:59 06:59 18:59 Intake Total 2180 240 Output Total 400 190 20 Balance 1780 -190 220 Weight 53.9 kg 48.3 kg Intake: Oral 2180 240 Output: Drainage 40 20 Left Lower Abdomen 40 20 Urine 400 150 Other: Voiding Method Bedside Commode Bedside Commode Bedside Commode Diaper Diaper Diaper Incontinent Incontinent Incontinent # Voids 2 1 # Bowel Movements 0 ABP, PAP, CO, CI - Last Documented Arterial Blood Pressure 114/64 - Exam Physical exam Soft mildly distended surgical tenderness appropriate bowel tones present surgical dressing removed minna intact suture line well approximated Dressing of Optiform with silver applied. Fluid obtained from the TEDDY drain sent down to the lab for amylase and lipase reports tolerating diet no nausea no vomiting - Labs CBC & Chem 7: 11/10/17 05:46 11/10/17 05:46 Labs: Abnormal Lab Results - Last 24 Hours (Table) 11/10/17 11/10/17 11/10/17 Range/Units 05:46 05:46 05:46 WBC 10.8 H (3.8-10.6) k/uL RBC 3.70 L (3.80-5.40) m/uL Hgb 8.9 L (11.4-16.0) gm/dL Hct 30.2 L (34.0-46.0) % MCH 24.2 L (25.0-35.0) pg MCHC 29.6 L (31.0-37.0) g/dL RDW 19.5 H (11.5-15.5) % Plt Count 684 H (150-450) k/uL PT 22.6 H (9.0-12.0) sec INR 2.5 H (<1.2) Creatinine 0.42 L (0.52-1.04) mg/dL Glucose 71 L (74-99) mg/dL Microbiology - Last 24 Hours (Table) 11/06/17 09:35 Blood Culture - Preliminary Blood No Growth after 72 hours 11/06/17 09:35 Blood Culture - Preliminary Blood No Growth after 72 hours Assessment and Plan Assessment: Impression Present on admission abdominal pain likely due to constipation Incidental finding CAT scan abdomen pelvis new vascular lesion measuring 5 cm within the spleen new compared to prior imaging Chronic constipation Present on admission elevated INR 9.4 History of mechanical aortic valve on anticoagulation Coumadin Anemia of chronic illness hemoglobin stable Splenic hemorrhage Splenectomy postop day 6 Plan Okay to transfer to [facility] today Follow up on the fluid sent for amylase and lipase from the TEDDY drain done today November [address] Centeno The above impression and plan of care have been discussed and directed by signing physician. Mable Aguilera nurse practitioner acting as scribe for signing physician.
[2017-11-10 17:58] LABS: Lipase, Body Fluid 15 U/L
[2017-11-10] MEDS ORDERED: WARFARIN 5 MG TAB PO SCH (18:00)
== END 2017-11-10 12:04 | DRG 799 ==
LOC: EC 21:29 → 6SEL 11-02 01:50 → 6ICU 11-02 02:06 → 6SEL 11-04 13:45
PROVIDERS: ADMIT Internal Medicine; ATTEND Internal Medicine
PROC: 30233K1 Transfusion of Nonautologous Frozen Plasma into Peripheral Vein, Percutaneous Approach (ICD-10-PCS; 2017-11-02)
PROC: 30233N1 Transfusion of Nonautologous Red Blood Cells into Peripheral Vein, Percutaneous Approach (ICD-10-PCS; 2017-11-03)
PROC: 0WQF0ZZ Repair Abdominal Wall, Open Approach (ICD-10-PCS; 2017-11-03)
PROC: 07TP0ZZ Resection of Spleen, Open Approach (ICD-10-PCS; principal; 2017-11-03 12:45)
DX: D73.5 Infarction of spleen (principal); I50.31 Acute diastolic (congestive) heart failure; K66.1 Hemoperitoneum; I95.9 Hypotension, unspecified; D68.9 Coagulation defect, unspecified; R78.81 Bacteremia; Q87.40 Marfan syndrome, unspecified; I69.351 Hemiplegia and hemiparesis following cerebral infarction affecting right dominant side; D62 Acute posthemorrhagic anemia; I50.33 Acute on chronic diastolic (congestive) heart failure; L03.115 Cellulitis of right lower limb; M41.9 Scoliosis, unspecified; F17.210 Nicotine dependence, cigarettes, uncomplicated; Q07.00 Arnold-Chiari syndrome without spina bifida or hydrocephalus; K42.9 Umbilical hernia without obstruction or gangrene; B95.2 Enterococcus as the cause of diseases classified elsewhere; Q67.6 Pectus excavatum; F32.9 Major depressive disorder, single episode, unspecified; F41.9 Anxiety disorder, unspecified; E16.2 Hypoglycemia, unspecified; K59.09 Other constipation; B19.20 Unspecified viral hepatitis C without hepatic coma; M19.91 Primary osteoarthritis, unspecified site; G89.29 Other chronic pain; M54.9 Dorsalgia, unspecified; F19.11 Other psychoactive substance abuse, in remission; Z79.01 Long term (current) use of anticoagulants; Z79.899 Other long term (current) drug therapy; Z86.14 Personal history of Methicillin resistant Staphylococcus aureus infection; Z95.2 Presence of prosthetic heart valve; Z95.1 Presence of aortocoronary bypass graft; Z86.61 Personal history of infections of the central nervous system; Z88.0 Allergy status to penicillin; Z88.8 Allergy status to other drugs, medicaments and biological substances; Z87.01 Personal history of pneumonia (recurrent); T45.515A Adverse effect of anticoagulants, initial encounter
CPT/HCPCS: 36415; 36430; 71045; 74022; 74177; 80048; 80053; 80202; 80306; 81001; 81025; 82150; 82272; 82805; 83605; 83690; 83735; 84100; 84165; 85025; 85027; 85610; 85730; 86850; 86900; 86901; 86920; 87040; 88305; 93306; 94002; 94640; 94760; 96361; 96374; 96375; 99285

== ENCOUNTER → 2017-11-01 | Outpatient (CLI) | payer OTHER ==
[2017-11-01 09:14] LABS: Prothrombin Time 59.1 sec (9.0-12.0)
[2017-11-01 09:17] LABS: Anisocytosis Slight; Basophils # (A) 0.1 k/uL (0-0.2); Basophils % (A) 1 %; Eosinophils # (A) 0.1 k/uL (0-0.7); Eosinophils % (A) 1 %; HCT 30.6 % (34.0-46.0); Hypochromasia Marked; Lymphocytes # (A) 0.8 k/uL (1.0-4.8); Lymphocytes % (A) 10 %; MCHC 27.4 g/dL (31.0-37.0); MCV 76.6 fL (80.0-100.0); Mean Platelet Volume 6.3; Microcytosis Slight; Monocytes # (A) 0.3 k/uL (0-1.0); Monocytes % (A) 4 %; Neutrophils # (A) 6.1 k/uL (1.3-7.7); Neutrophils % (A) 81 %; Platelet Count 394 k/uL (150-450); Poikilocytosis Slight; RDW 17.2 % (11.5-15.5); WBC 7.5 k/uL (3.8-10.6)
[2017-11-01 09:22] LABS: HGB 8.4 gm/dL (11.4-16.0)
[2017-11-01 10:49] LABS: INR 6.5 (<1.2)
[2017-11-01 16:25] LABS: Protein, Total 9.9 g/dL (6.2-8.2)
[2017-11-03 11:13] LABS: Albumin 4.06 g/dL (3.80-4.90); Gamma Globulin 3.06 g/dL (0.70-1.50)
== END | disposition home or self-care (01) ==
LOC: LABWHC1 08:40
PROVIDERS: ATTEND Physician Assistant Medical
DX: F43.10 Post-traumatic stress disorder, unspecified (principal); F11.20 Opioid dependence, uncomplicated; Z79.899 Other long term (current) drug therapy
CPT/HCPCS: 36415; 84165; 85025; 85610

== ENCOUNTER 2017-12-09 10:23 | Emergency (ER) | payer OTHER ==
[2017-12-09 10:28] VITALS: BP 127/73; PULSE 98; RESP 18; TEMP 97.3
--- NOTE | 2017-12-09 11:59 | ED ---
General Adult HPI - General Chief complaint: Chest Pain Stated complaint: Lung Pain/Swollen Arm Time Seen by Provider: 12/09/17 10:55 Source: patient, RN notes reviewed, old records reviewed Mode of arrival: ambulatory Limitations: no limitations - History of Present Illness Initial comments: This is a 32-year-old female the ER for evaluation. Multiple nonspecific complaints. Patient well-known to emergency room for multiple medical comorbidities. Patient Brenning of left-sided chest pain rib pain, right-sided elbow pain. No injuries, no fevers. No shortness of breath - Related Data Home Medications Medication Instructions Recorded Confirmed Albuterol Inhaler [Ventolin Hfa 2 puff INHALATION RT-Q8H PRN 11/01/17 11/01/17 Inhaler] Cholecalciferol [Vitamin D3] 5,000 unit PO DAILY@0800 11/01/17 11/01/17 Ferrous Sulfate [Feosol] 325 mg PO HS@2100 11/01/17 11/01/17 Previous Rx's Medication Instructions Recorded Baclofen [Lioresal] 10 mg PO QID #60 tab 07/31/17 ALPRAZolam [Xanax] 0.25 mg PO TID PRN #10 tab 11/10/17 DULoxetine HCL [Cymbalta] 60 mg PO DAILY capsule. 11/10/17 Docusate [Colace] 100 mg PO BID cap 11/10/17 Gabapentin [Neurontin] 100 mg PO TID cap 11/10/17 HYDROcodone/APAP 5-325MG [[place] 1 tab PO Q4HR PRN #10 tab 11/10/17 5-325] Ipratropium-Albuterol Nebulize 3 ml INHALATION RT-TID ampul.neb 11/10/17 [Duoneb 0.5 mg-3 mg/3 ml Soln] OLANZapine [ZyPREXA] 10 mg PO HS tab 11/10/17 Pantoprazole [Protonix] 40 mg PO AC-BRKFST tablet. 11/10/17 Sennosides [Senokot] 8.6 mg PO DAILY tab 11/10/17 Warfarin [Coumadin] 5 mg PO DAILY #10 tab 11/10/17 Allergies Allergy/AdvReac Type Severity Reaction Status Date / Time chlordiazepoxide HCl Allergy Unknown Verified 12/09/17 10:28 [From Librium] Penicillins Allergy Rash/Hives Verified 12/09/17 10:28 prochlorperazine edisylate Allergy PANIC Verified 12/09/17 10:28 [From Compazine] ATTACK prochlorperazine maleate Allergy PANIC Verified 12/09/17 10:28 [From Compazine] ATTACK Review of Systems ROS Statement: Those systems with pertinent positive or pertinent negative responses have been documented in the HPI. ROS Other: All systems not noted in ROS Statement are negative. Past Medical History Past Medical History: Heart Failure, CVA/TIA, Neurologic Disorder, Osteoarthritis (OA), Pneumonia Additional Past Medical History / Comment(s): Stroke with residual right-sided weakness 2017, marfan's syndrome, ArnoldChiari malformation, spontaneous pneumothorax x 21, scoliosis and pectus excavatum secondary to Marfan's, chronic back pain, bilateral leg pain, sinus infections, STATED HAS POOR CIRCULATION, viral meningitis, HEP C. History of Any Multi-Drug Resistant Organisms: None Reported, MRSA Date of last positivie culture/infection: 05/05/2010 MDRO Source:: back per patient Past Surgical History: Cardiac Valve Replacement, Coronary Bypass/CABG, Joint Replacement Additional Past Surgical History / Comment(s): 10-27-16 I&D RT FOREARM ABCESS, left upper lobectomy age 16, left hip fracture-ORIF, right foot corrective surgery, R shoulder surgery following injury, CABG x4 vessel, aortic root graft , aortic valve replaced as child (2 separate surgeries last 10 years old), tiffani lens removed. Past Anesthesia/Blood Transfusion Reactions: No Reported Reaction Past Psychological History: Anxiety Smoking Status: Current every day smoker Past Alcohol Use History: None Reported Past Drug Use History: None Reported - Past Family History Father Additional Family Medical History / Comment(s): Father is with history of AIDS. Mother Family Medical History: Diabetes Mellitus Additional Family Medical History / Comment(s): Mother at age 49 from liver cirrhosis secondary to alcohol abuse. Brother(s) Additional Family Medical History / Comment(s): Patient has one brother with no major medical problems. Patient does not have any sisters. Patient does not have any children. General Exam Limitations: no limitations General appearance: alert, in no apparent distress Head exam: Present: atraumatic, normocephalic, normal inspection Eye exam: Present: normal appearance, PERRL, EOMI. Absent: scleral icterus, conjunctival injection, periorbital swelling ENT exam: Present: normal exam, mucous membranes moist Neck exam: Present: normal inspection. Absent: tenderness, meningismus, lymphadenopathy Respiratory exam: Present: normal lung sounds bilaterally. Absent: respiratory distress, wheezes, rales, rhonchi, stridor Cardiovascular Exam: Present: regular rate, normal rhythm, normal heart sounds. Absent: systolic murmur, diastolic murmur, rubs, gallop, clicks GI/Abdominal exam: Present: soft, normal bowel sounds. Absent: distended, tenderness, guarding, rebound, rigid Extremities exam: Present: normal inspection, full ROM, normal capillary refill. Absent: tenderness, pedal edema, joint swelling, calf tenderness Back exam: Present: normal inspection Neurological exam: Present: alert, oriented X3, CN II-XII intact Psychiatric exam: Present: normal affect, normal mood Skin exam: Present: warm, dry, intact, normal color. Absent: rash Course Vital Signs 12/09/17 10:24 Temperature 97.3 F L Pulse Rate 98 Respiratory 18 Rate Blood Pressure 127/73 O2 Sat by Pulse 96 Oximetry - Reevaluation(s) Reevaluation #1: 12/09/17 12:49 Medical records thoroughly reviewed as patient is well-known to ER Reevaluation #2: 12/09/17 12:49 Spoke with patient's guarding, no narcotics allowed Medical Decision Making - Medical Decision Making 32 female the ER for evaluation of nonspecific pain, left-sided chest pain right -sided arm pain. X-rays negative, patient will be discharged home to continue at home pain control - Radiology Data Radiology results: report reviewed (Chest x-ray x-ray right elbow are negative for fracture), image reviewed Disposition Clinical Impression: Chronic pain, Atypical chest pain, Right arm pain Disposition: HOME SELF-CARE Condition: Good Instructions: Chest Pain (ED), Arm Pain (ED) Referrals: None,Stated [Primary Care Provider] - 1-2 days
--- NOTE | 2017-12-09 12:00 | XR ---
EXAMINATION TYPE: XR chest 2V DATE OF EXAM: 12/09/2017 HISTORY: Pain. REFERENCE: Previous study dated 11/07/2017. FINDINGS: There has been a midline sternotomy. There has been previous internal fixation of the right humerus. There is a moderate deformity of the thorax. The heart is enlarged. There is scarring in the left upper lobe. The lungs are otherwise clear. Pleur al spaces are clear. IMPRESSION: CARDIOMEGALY.
--- NOTE | 2017-12-09 12:01 | XR ---
EXAMINATION TYPE: XR elbow complete RT , 3 VIEWS DATE OF EXAM ORDERED: 12/09/2017 HISTORY: Pain. COMPARISON: Previous study dated 08/14/2017. FINDINGS: No fracture, dislocation or joint effusion is seen. IMPRESSION: NO ACUTE OSSEOUS LESION.
== END 2017-12-09 13:16 | disposition home or self-care (01) ==
LOC: EC 10:23
DX: R07.89 Other chest pain (principal); G89.29 Other chronic pain; M79.601 Pain in right arm; I50.9 Heart failure, unspecified; F17.200 Nicotine dependence, unspecified, uncomplicated; Z86.14 Personal history of Methicillin resistant Staphylococcus aureus infection; Z86.73 Personal history of transient ischemic attack (TIA), and cerebral infarction without residual deficits; Z95.2 Presence of prosthetic heart valve; Z95.1 Presence of aortocoronary bypass graft; Z88.8 Allergy status to other drugs, medicaments and biological substances; Z88.0 Allergy status to penicillin; M25.522 Pain in left elbow
CPT/HCPCS: 71046; 99285

== ENCOUNTER 2018-01-08 10:11 | Emergency (ER) | payer OTHER ==
[2018-01-08 10:25] VITALS: TEMP 98.2
[2018-01-08] MEDS ORDERED: RX INFO: IV CONTRAST WAS GIVEN 1 EACH MISC MISCELLANE PRN (10:37)
[2018-01-08] MEDS ORDERED: SODIUM CHLORIDE 0.9% 1,000 ML IV STA (10:37)
[2018-01-08] MEDS ORDERED: SODIUM CHLORIDE 0.9% 500 ML IV STA (10:37)
[2018-01-08] MEDS ORDERED: ACETAMINOPHEN IV (For NPO) 1,000 MG in EMPTY BAG 1 BAG IVPB STA (10:38)
[2018-01-08 11:39] LABS: Anisocytosis Moderate; Basophils # (A) 0.1 k/uL (0-0.2); Basophils % (A) 1 %; Eosinophils # (A) 0.1 k/uL (0-0.7); Eosinophils % (A) 1 %; HCT 38.9 % (34.0-46.0); HGB 11.2 gm/dL (11.4-16.0); Hypochromasia Marked; Lymphocytes # (A) 1.7 k/uL (1.0-4.8); Lymphocytes % (A) 14 %; MCH 22.5 pg (25.0-35.0); MCHC 28.8 g/dL (31.0-37.0); MCV 78.2 fL (80.0-100.0); Mean Platelet Volume 6.8; Microcytosis Moderate; Monocytes # (A) 0.6 k/uL (0-1.0); Monocytes % (A) 5 %; Neutrophils # (A) 9.6 k/uL (1.3-7.7); Neutrophils % (A) 78 %; Platelet Count 586 k/uL (150-450); Poikilocytosis Slight; RBC 4.98 m/uL (3.80-5.40); WBC 12.3 k/uL (3.8-10.6)
[2018-01-08 11:42] LABS: INR 2.3 (<1.2); Partial Thromboplastin Time 35.5 sec (22.0-30.0); Prothrombin Time 20.7 sec (9.0-12.0)
[2018-01-08 11:44] LABS: ALT 12 U/L (9-52); AST 23 U/L (14-36); Albumin 4.2 g/dL (3.5-5.0); Alkaline Phosphatase 137 U/L (38-126); Amylase 37 U/L (30-110); Anion Gap 14 mmol/L; Blood Urea Nitrogen 9 mg/dL (7-17); Calcium 9.3 mg/dL (8.4-10.2); Carbon Dioxide 28 mmol/L (22-30); Chloride 98 mmol/L (98-107); Glucose 87 mg/dL (74-99); Lipase 27 U/L (23-300); Potassium 4.4 mmol/L (3.5-5.1); Sodium 140 mmol/L (137-145); Total Bilirubin 0.6 mg/dL (0.2-1.3); Total Protein 8.6 g/dL (6.3-8.2)
--- NOTE | 2018-01-08 12:22 | ED ---
General Adult HPI - General Chief complaint: Abdominal Pain Stated complaint: Groin pain Time Seen by Provider: 01/08/18 10:29 Source: patient, RN notes reviewed, old records reviewed Mode of arrival: ambulatory Limitations: no limitations - History of Present Illness Initial comments: This is a 32-year-old female to the ER for evaluation. Patient presents today for evaluation regards to abdominal pain, severe anterior abdominal pain. Patient has significant medical comorbidities stemming from Marfan's syndrome multiple surgeries recent spleen surgery with large anterior abdominal incision. Patient is denies any diarrhea no nausea vomiting no fevers. - Related Data Home Medications Medication Instructions Recorded Confirmed Albuterol Inhaler [Ventolin Hfa 2 puff INHALATION RT-Q8H PRN 11/01/17 01/08/18 Inhaler] Cholecalciferol [Vitamin D3] 5,000 unit PO DAILY@0800 11/01/17 01/08/18 Ferrous Sulfate [Feosol] 325 mg PO HS@2100 11/01/17 01/08/18 Previous Rx's Medication Instructions Recorded Baclofen [Lioresal] 10 mg PO QID #60 tab 07/31/17 DULoxetine HCL [Cymbalta] 60 mg PO DAILY capsule. 11/10/17 Docusate [Colace] 100 mg PO BID cap 11/10/17 Gabapentin [Neurontin] 100 mg PO TID cap 11/10/17 Ipratropium-Albuterol Nebulize 3 ml INHALATION RT-TID ampul.neb 11/10/17 [Duoneb 0.5 mg-3 mg/3 ml Soln] OLANZapine [ZyPREXA] 10 mg PO HS tab 11/10/17 Pantoprazole [Protonix] 40 mg PO AC-BRKFST tablet. 11/10/17 Sennosides [Senokot] 8.6 mg PO DAILY tab 11/10/17 Warfarin [Coumadin] 5 mg PO DAILY #10 tab 11/10/17 Polyethylene Glycol 3350 [Miralax] 17 gm PO DAILY #7 packet 01/08/18 Allergies Allergy/AdvReac Type Severity Reaction Status Date / Time chlordiazepoxide HCl Allergy Unknown Verified 01/08/18 10:45 [From Librium] Penicillins Allergy Rash/Hives Verified 01/08/18 10:45 prochlorperazine edisylate Allergy PANIC Verified 01/08/18 10:45 [From Compazine] ATTACK prochlorperazine maleate Allergy PANIC Verified 01/08/18 10:45 [From Compazine] ATTACK Review of Systems ROS Statement: Those systems with pertinent positive or pertinent negative responses have been documented in the HPI. ROS Other: All systems not noted in ROS Statement are negative. Past Medical History Past Medical History: Heart Failure, CVA/TIA, Neurologic Disorder, Osteoarthritis (OA), Pneumonia Additional Past Medical History / Comment(s): Stroke with residual right-sided weakness 2017, marfan's syndrome, ArnoldChiari malformation, spontaneous pneumothorax x 21, scoliosis and pectus excavatum secondary to Marfan's, chronic back pain, bilateral leg pain, sinus infections, STATED HAS POOR CIRCULATION, viral meningitis, HEP C. History of Any Multi-Drug Resistant Organisms: MRSA Date of last positivie culture/infection: 05/05/2010 MDRO Source:: back per patient Past Surgical History: Cardiac Valve Replacement, Coronary Bypass/CABG, Joint Replacement Additional Past Surgical History / Comment(s): right foot corrective surgery, R shoulder surgery following injury, CABG x4 vessel, aortic root graft, aortic valve replaced as child (2 separate surgeries last 10 years old), tiffani lens removed. spleenectomy 2018 Past Anesthesia/Blood Transfusion Reactions: No Reported Reaction Past Psychological History: Anxiety Smoking Status: Current every day smoker Past Alcohol Use History: None Reported Past Drug Use History: None Reported - Past Family History Father Additional Family Medical History / Comment(s): Father is with history of AIDS. Mother Family Medical History: Diabetes Mellitus Additional Family Medical History / Comment(s): Mother at age 49 from liver cirrhosis secondary to alcohol abuse. Brother(s) Additional Family Medical History / Comment(s): Patient has one brother with no major medical problems. Patient does not have any sisters. Patient does not have any children. General Exam Limitations: no limitations General appearance: alert, in no apparent distress Head exam: Present: atraumatic, normocephalic, normal inspection Eye exam: Present: normal appearance, PERRL, EOMI. Absent: scleral icterus, conjunctival injection, periorbital swelling ENT exam: Present: normal exam, mucous membranes moist Neck exam: Present: normal inspection. Absent: tenderness, meningismus, lymphadenopathy Respiratory exam: Present: normal lung sounds bilaterally. Absent: respiratory distress, wheezes, rales, rhonchi, stridor Cardiovascular Exam: Present: regular rate, normal rhythm, normal heart sounds. Absent: systolic murmur, diastolic murmur, rubs, gallop, clicks GI/Abdominal exam: Present: soft, distended, tenderness, normal bowel sounds. Absent: guarding, rebound, rigid Extremities exam: Present: normal inspection, full ROM, normal capillary refill. Absent: tenderness, pedal edema, joint swelling, calf tenderness Back exam: Present: normal inspection Neurological exam: Present: alert, oriented X3, CN II-XII intact Psychiatric exam: Present: normal affect, normal mood Skin exam: Present: warm, dry, intact, normal color. Absent: rash Course Vital Signs 01/08/18 01/08/18 10:23 12:04 Temperature 98.2 F Pulse Rate 92 88 Respiratory 18 20 Rate Blood Pressure 105/62 111/71 O2 Sat by Pulse 97 99 Oximetry Medical Decision Making - Medical Decision Making 32 female the ER with continued pain. Constipation on CT no other acute findings found. Patient was discharged home to continue follow-up with outpatient surgery - Lab Data Result diagrams: 01/08/18 11:05 01/08/18 11:05 Lab Results 01/08/18 01/08/18 01/08/18 Range/Units 11:05 11:05 11:05 WBC 12.3 H (3.8-10.6) k/uL RBC 4.98 (3.80-5.40) m/uL Hgb 11.2 L (11.4-16.0) gm/dL Hct 38.9 (34.0-46.0) % MCV 78.2 L (80.0-100.0) fL MCH 22.5 L (25.0-35.0) pg MCHC 28.8 L (31.0-37.0) g/dL RDW 21.0 H (11.5-15.5) % Plt Count 586 H (150-450) k/uL Neutrophils % 78 % Lymphocytes % 14 % Monocytes % 5 % Eosinophils % 1 % Basophils % 1 % Neutrophils # 9.6 H (1.3-7.7) k/uL Lymphocytes # 1.7 (1.0-4.8) k/uL Monocytes # 0.6 (0-1.0) k/uL Eosinophils # 0.1 (0-0.7) k/uL Basophils # 0.1 (0-0.2) k/uL Hypochromasia Marked Poikilocytosis Slight Anisocytosis Moderate Microcytosis Moderate PT (9.0-12.0) sec INR (<1.2) APTT (22.0-30.0) sec Sodium 140 (137-145) mmol/L Potassium 4.4 (3.5-5.1) mmol/L Chloride 98 (98-107) mmol/L Carbon Dioxide 28 (22-30) mmol/L Anion Gap 14 mmol/L BUN 9 (7-17) mg/dL Creatinine 0.60 (0.52-1.04) mg/dL Est GFR (CKD-EPI)AfAm >90 (>60 ml/min/1.73 sqM) Est GFR (CKD-EPI)NonAf >90 (>60 ml/min/1.73 sqM) Glucose 87 (74-99) mg/dL Plasma Lactic Acid Santino 1.2 (0.7-2.0) mmol/L Calcium 9.3 (8.4-10.2) mg/dL Total Bilirubin 0.6 (0.2-1.3) mg/dL AST 23 (14-36) U/L ALT 12 (9-52) U/L Alkaline Phosphatase 137 H (38-126) U/L Total Protein 8.6 H (6.3-8.2) g/dL Albumin 4.2 (3.5-5.0) g/dL Amylase 37 (30-110) U/L Lipase 27 (23-300) U/L /03/21 Range/Units 11:05 WBC (3.8-10.6) k/uL RBC (3.80-5.40) m/uL Hgb (11.4-16.0) gm/dL Hct (34.0-46.0) % MCV (80.0-100.0) fL MCH (25.0-35.0) pg MCHC (31.0-37.0) g/dL RDW (11.5-15.5) % Plt Count (150-450) k/uL Neutrophils % % Lymphocytes % % Monocytes % % Eosinophils % % Basophils % % Neutrophils # (1.3-7.7) k/uL Lymphocytes # (1.0-4.8) k/uL Monocytes # (0-1.0) k/uL Eosinophils # (0-0.7) k/uL Basophils # (0-0.2) k/uL Hypochromasia Poikilocytosis Anisocytosis Microcytosis PT 20.7 H (9.0-12.0) sec INR 2.3 H (<1.2) APTT 35.5 H (22.0-30.0) sec Sodium (137-145) mmol/L Potassium (3.5-5.1) mmol/L Chloride (98-107) mmol/L Carbon Dioxide (22-30) mmol/L Anion Gap mmol/L BUN (7-17) mg/dL Creatinine (0.52-1.04) mg/dL Est GFR (CKD-EPI)AfAm (>60 ml/min/1.73 sqM) Est GFR (CKD-EPI)NonAf (>60 ml/min/1.73 sqM) Glucose (74-99) mg/dL Plasma Lactic Acid Santino (0.7-2.0) mmol/L Calcium (8.4-10.2) mg/dL Total Bilirubin (0.2-1.3) mg/dL AST (14-36) U/L ALT (9-52) U/L Alkaline Phosphatase (38-126) U/L Total Protein (6.3-8.2) g/dL Albumin (3.5-5.0) g/dL Amylase (30-110) U/L Lipase (23-300) U/L - Radiology Data Radiology results: report reviewed (CT head and pelvis negative for acute disease, positive constipation), image reviewed Disposition Clinical Impression: Abdominal pain, Postoperative pain, Constipation Disposition: HOME SELF-CARE Condition: Good Instructions: Abdominal Pain (ED) Prescriptions: Polyethylene Glycol 3350 [Miralax] 17 gm PO DAILY #7 packet Is patient prescribed a controlled substance at d/c from ED?: No Referrals: None,Stated [Primary Care Provider] - 1-2 days
--- NOTE | 2018-01-08 12:53 | CT ---
EXAMINATION TYPE: CT abdomen pelvis w con DATE OF EXAM: 01/08/2018 HISTORY: Right lower abdominal pain and groin pain. History of Marfan's disease. CT DLP: 1017mGycm Automated Exposure Control for Dose Reduction was Utilized. CONTRAST: CT scan of the abdomen and pelvis is performed without oral but with IV Contrast, patient injected wi th 100 mL of Isovue 300. COMPARISON: CT abdomen and pelvis November 03, 2017 FINDINGS: LUNG BASES: Sternal wires are redemonstrated. There is redemonstration of cardiomegaly with severe ri ght and moderate to severe left atrial dilatation. There is mild to moderate right greater than left ventricular dilatation. There is partial imaging of suspected metallic aortic valve. There is chronic emphysematous change with bibasilar scarring and/or atelectasis redemonstrated. LIVER/GB: Heterogeneity of liver resolves on delayed phase images consistent with transient hepatic a ttenuation difference. Liver is mildly enlarged not significantly changed in size from prior PANCREAS: No significant abnormality is seen. SPLEEN: Spleen is now not identified and suspected surgically resected in the interval. Correlate cli nically. At expected level of inferior splenic hilum there is new 5 mm metallic density, possible ret ained surgical foreign body axial image 31 with streak artifact. Correlate clinically. ADRENALS: No significant abnormality is seen. KIDNEYS: Left kidney has been resected in the interval. BOWEL: Patient has very little intra-abdominal fat making evaluation suboptimal. No suspicious small or large bowel dilatation is seen. There is some prominence of fecal material in the transverse colo n. Appendix is not definitively identified but there is no inflammatory change at base of cecum in th e right lower quadrant adjacent to right kidney. UTERUS/ADNEXA: No gross abnormality seen. LYMPH NODES: No new greater than 1cm abdominal or pelvic lymph nodes are appreciated. There is stable slightly enlarged left groin lymph node axial image 76 measuring 1.5 x 1.2 cm. OSSEOUS STRUCTURES: There is persistent enlargement of the lumbosacral spinal canal causing scallopin g of the posterior vertebral body margins or dural ectasia. Metallic hardware from left hip surgery is partially imaged. There is moderate to advanced axial join t space loss in the right hip. OTHER: No significant additional abnormality is seen. IMPRESSION: 1. No significant new or acute finding is seen to account for patient's symptoms of right pelvic and groin pain. No bowel obstruction is seen. Mild to moderate mid colonic fecal stasis noted. 2. Interval splenectomy and left-sided nephrectomy. Possible retained 5 mm metallic foreign body? 3. Some chronic findings related to known Marfan syndrome redemonstrated.
[2018-01-08] MEDS ORDERED: SENNOSIDES-DOCUSATE SODIUM 1 EACH TAB PO STA (13:06)
[2018-01-08 13:28] LABS: Appearance,Urine Clear (Clear); Bacteria,Urine Occasional /hpf; Bilirubin,Urine Negative (Negative); Blood,Urine Negative (Negative); Color,Urine Light Yellow; Glucose,Urine (UA) Negative (Negative); Ketones,Urine Negative (Negative); Leukocyte Esterase,Urine Large (Negative); Nitrite,Urine Negative (Negative); PH, Urine 7.5 (5.0-8.0); Protein,Urine Negative (Negative); RBC,Urine 11 /hpf (0-5); Specific Gravity,Urine 1.037 (1.001-1.035); Squamous Epithelial Cell,Urine 9 /hpf (0-4); Urobilinogen,Urine <2.0 mg/dL (<2.0); WBC,Urine 11 /hpf (0-5)
[2018-01-08 13:51] VITALS: BP 109/66; PULSE 82; RESP 18
== END 2018-01-08 13:51 | disposition home or self-care (01) ==
LOC: EC 10:11
DX: K59.00 Constipation, unspecified (principal); R10.30 Lower abdominal pain, unspecified; G89.18 Other acute postprocedural pain; I50.9 Heart failure, unspecified; F17.200 Nicotine dependence, unspecified, uncomplicated; Z86.14 Personal history of Methicillin resistant Staphylococcus aureus infection; Z86.19 Personal history of other infectious and parasitic diseases; Z95.1 Presence of aortocoronary bypass graft; Z95.2 Presence of prosthetic heart valve; Z86.73 Personal history of transient ischemic attack (TIA), and cerebral infarction without residual deficits; Z79.899 Other long term (current) drug therapy; Z88.0 Allergy status to penicillin; Z88.8 Allergy status to other drugs, medicaments and biological substances; Z98.890 Other specified postprocedural states
CPT/HCPCS: 36415; 80053; 82150; 83605; 83690; 85025; 85610; 85730; 81001; 87086; 74177; 99284; 96374; 96361 ×2; J0131; Q9967; 87077; 87186

== ENCOUNTER 2018-01-19 10:33 | Emergency (ER) | payer OTHER ==
[2018-01-19 10:49] VITALS: RESP 16; TEMP 97.5
[2018-01-19] MEDS ORDERED: HYDROcodone/APAP 5-325MG 1 EACH TAB PO STA (11:19)
--- NOTE | 2018-01-19 11:38 | ED ---
General Adult HPI - General Chief complaint: Chest Pain Stated complaint: Chest Pain/Leg Pain Time Seen by Provider: 01/19/18 10:55 Source: patient, RN notes reviewed, old records reviewed Mode of arrival: ambulatory Limitations: no limitations - History of Present Illness Initial comments: This is a 32-year-old female the ER for evaluation of pain. Patient states she has diffuse body pain right sided pain and bilateral leg pain back pain. Patient does have a well known significant medical history. Multiple visits emergency room and medical history, could've a recent spleen surgery. Patient states is having bowel movements eating and acting appropriately denies chest pain or shortness of breath, denies any abdominal pain. Patient is not taking anything outside of Tylenol and Motrin for pain at home, states she is in the process of getting follow-up for pain management. Patient is here for chronic pain - Related Data Home Medications Medication Instructions Recorded Confirmed Albuterol Inhaler [Ventolin Hfa 2 puff INHALATION RT-Q8H PRN 11/01/17 01/19/18 Inhaler] Cholecalciferol [Vitamin D3] 5,000 unit PO DAILY@0800 11/01/17 01/19/18 Ferrous Sulfate [Feosol] 325 mg PO HS@2100 11/01/17 01/19/18 Previous Rx's Medication Instructions Recorded Baclofen [Lioresal] 10 mg PO QID #60 tab 07/31/17 DULoxetine HCL [Cymbalta] 60 mg PO DAILY capsule. 11/10/17 Docusate [Colace] 100 mg PO BID cap 11/10/17 Gabapentin [Neurontin] 100 mg PO TID cap 11/10/17 Ipratropium-Albuterol Nebulize 3 ml INHALATION RT-TID ampul.neb 11/10/17 [Duoneb 0.5 mg-3 mg/3 ml Soln] OLANZapine [ZyPREXA] 10 mg PO HS tab 11/10/17 Pantoprazole [Protonix] 40 mg PO AC-BRKFST tablet. 11/10/17 Sennosides [Senokot] 8.6 mg PO DAILY tab 11/10/17 Warfarin [Coumadin] 5 mg PO DAILY #10 tab 11/10/17 Polyethylene Glycol 3350 [Miralax] 17 gm PO DAILY #7 packet 01/08/18 Allergies Allergy/AdvReac Type Severity Reaction Status Date / Time chlordiazepoxide HCl Allergy Unknown Verified 01/19/18 10:55 [From Librium] Penicillins Allergy Rash/Hives Verified 01/19/18 10:55 prochlorperazine edisylate Allergy PANIC Verified 01/19/18 10:55 [From Compazine] ATTACK prochlorperazine maleate Allergy PANIC Verified 01/19/18 10:55 [From Compazine] ATTACK Review of Systems ROS Statement: Those systems with pertinent positive or pertinent negative responses have been documented in the HPI. ROS Other: All systems not noted in ROS Statement are negative. Past Medical History Past Medical History: Heart Failure, CVA/TIA, Neurologic Disorder, Osteoarthritis (OA), Pneumonia Additional Past Medical History / Comment(s): Stroke with residual right-sided weakness 2017, marfan's syndrome, ArnoldChiari malformation, spontaneous pneumothorax x 21, scoliosis and pectus excavatum secondary to Marfan's, chronic back pain, bilateral leg pain, sinus infections, STATED HAS POOR CIRCULATION, viral meningitis, HEP C. History of Any Multi-Drug Resistant Organisms: MRSA Date of last positivie culture/infection: 05/05/2010 MDRO Source:: back per patient Past Surgical History: Cardiac Valve Replacement, Coronary Bypass/CABG, Joint Replacement Additional Past Surgical History / Comment(s): right foot corrective surgery, R shoulder surgery following injury, CABG x4 vessel, aortic root graft, aortic valve replaced as child (2 separate surgeries last 10 years old), tiffani lens removed. spleenectomy 2018 Past Anesthesia/Blood Transfusion Reactions: No Reported Reaction Past Psychological History: Anxiety Smoking Status: Current every day smoker Past Alcohol Use History: None Reported Past Drug Use History: None Reported - Past Family History Father Additional Family Medical History / Comment(s): Father is with history of AIDS. Mother Family Medical History: Diabetes Mellitus Additional Family Medical History / Comment(s): Mother at age 49 from liver cirrhosis secondary to alcohol abuse. Brother(s) Additional Family Medical History / Comment(s): Patient has one brother with no major medical problems. Patient does not have any sisters. Patient does not have any children. General Exam Limitations: no limitations General appearance: alert, in no apparent distress Head exam: Present: atraumatic, normocephalic, normal inspection Eye exam: Present: normal appearance, PERRL, EOMI. Absent: scleral icterus, conjunctival injection, periorbital swelling ENT exam: Present: normal exam, mucous membranes moist Neck exam: Present: normal inspection. Absent: tenderness, meningismus, lymphadenopathy Respiratory exam: Present: normal lung sounds bilaterally. Absent: respiratory distress, wheezes, rales, rhonchi, stridor Cardiovascular Exam: Present: regular rate, normal rhythm, normal heart sounds. Absent: systolic murmur, diastolic murmur, rubs, gallop, clicks GI/Abdominal exam: Present: soft, normal bowel sounds. Absent: distended, tenderness, guarding, rebound, rigid Extremities exam: Present: normal inspection, full ROM, normal capillary refill. Absent: tenderness, pedal edema, joint swelling, calf tenderness Back exam: Present: normal inspection Neurological exam: Present: alert, oriented X3, CN II-XII intact Psychiatric exam: Present: normal affect, normal mood Skin exam: Present: warm, dry, intact, normal color. Absent: rash Course Vital Signs 01/19/18 10:47 Temperature 97.5 F L Pulse Rate 93 Respiratory 16 Rate Blood Pressure 109/57 O2 Sat by Pulse 99 Oximetry Medical Decision Making - Medical Decision Making 32 female the ER for evaluation of pain, acute on chronic pain, patient states is her normal chronic pain. We'll discharge with pain medication Disposition Clinical Impression: Chronic back pain, Atypical chest pain, Chronic pain Disposition: HOME SELF-CARE Condition: Fair Is patient prescribed a controlled substance at d/c from ED?: Yes If prescribed controlled substance>3 days was MAPS reviewed?: No When asked, does pt state using other controlled substances?: No Referrals: Nonstaff,Physician [Primary Care Provider] - 1-2 days
[2018-01-19 11:57] VITALS: BP 106/60; PULSE 80
== END 2018-01-19 11:50 | disposition home or self-care (01) ==
LOC: EC 10:33
DX: G89.29 Other chronic pain (principal); R07.89 Other chest pain; M54.9 Dorsalgia, unspecified; M79.604 Pain in right leg; M79.605 Pain in left leg; Q07.00 Arnold-Chiari syndrome without spina bifida or hydrocephalus; Q87.43 Marfan syndrome with skeletal manifestation; F17.200 Nicotine dependence, unspecified, uncomplicated; Z79.899 Other long term (current) drug therapy; Z88.0 Allergy status to penicillin; Z88.8 Allergy status to other drugs, medicaments and biological substances; Z86.14 Personal history of Methicillin resistant Staphylococcus aureus infection; Z95.1 Presence of aortocoronary bypass graft; Z95.2 Presence of prosthetic heart valve; Z90.81 Acquired absence of spleen; Z98.890 Other specified postprocedural states
CPT/HCPCS: 93005; 99285

== ENCOUNTER 2018-02-14 11:12 | Emergency (ER) | payer OTHER ==
[2018-02-14 11:32] VITALS: RESP 18
[2018-02-14] MEDS ORDERED: SODIUM CHLORIDE 0.9% 1,000 ML IV STA (12:14)
[2018-02-14] MEDS ORDERED: diphenhydrAMINE 50 MG/ML 1 ML VIAL IVP STA (12:14)
[2018-02-14] MEDS ORDERED: METOCLOPRAMIDE 5 MG/ML 2 ML VIAL IVP STA (12:14)
[2018-02-14] MEDS ORDERED: ORPHENADRINE 30 MG/ML 2 ML VIAL IVP STA (12:15)
[2018-02-14 12:49] LABS: Anisocytosis Slight; Basophils # (A) 0.1 k/uL (0-0.2); Basophils % (A) 1 %; Eosinophils # (A) 0.2 k/uL (0-0.7); Eosinophils % (A) 3 %; HGB 12.2 gm/dL (11.4-16.0); Hypochromasia Marked; Lymphocytes # (A) 1.9 k/uL (1.0-4.8); Lymphocytes % (A) 21 %; MCH 22.3 pg (25.0-35.0); MCV 76.8 fL (80.0-100.0); Mean Platelet Volume 6.8; Microcytosis Moderate; Monocytes # (A) 0.4 k/uL (0-1.0); Monocytes % (A) 4 %; Neutrophils # (A) 6.1 k/uL (1.3-7.7); Neutrophils % (A) 69 %; Platelet Count 493 k/uL (150-450); Poikilocytosis Slight; RBC 5.47 m/uL (3.80-5.40); RDW 19.4 % (11.5-15.5); WBC 8.9 k/uL (3.8-10.6)
--- NOTE | 2018-02-14 13:20 | ED ---
Headache HPI - General Chief Complaint: Headache Stated Complaint: Headache/Back Pain Time Seen by Provider: 02/14/18 12:02 Source: RN notes reviewed, old records reviewed Mode of arrival: ambulatory Limitations: no limitations - History of Present Illness Initial Comments: This patient's a 32-year-old female well-known to the emergency department with a history of Marfan syndrome presents today with chief complaint of headache and spinal pain. Patient states that she's been having this pain for a week. She said some Tylenol earlier today and had no relief of symptoms. She does have a history of drug abuse, and multiple surgeries related to her condition of Marfan syndrome. Patient has had multiple cardiac surgeries she is on blood thinners. She also had a splenectomy earlier this year. - Related Data Home Medications Medication Instructions Recorded Confirmed Albuterol Inhaler [Ventolin Hfa 2 puff INHALATION RT-Q8H PRN 11/01/17 02/14/18 Inhaler] Cholecalciferol [Vitamin D3] 5,000 unit PO DAILY@0800 11/01/17 02/14/18 Ferrous Sulfate [Feosol] 325 mg PO HS@2100 11/01/17 02/14/18 Sennosides [Senokot] 8.6 mg PO DAILY PRN 02/14/18 02/14/18 Previous Rx's Medication Instructions Recorded Baclofen [Lioresal] 10 mg PO QID #60 tab 07/31/17 DULoxetine HCL [Cymbalta] 60 mg PO DAILY capsule. 11/10/17 Docusate [Colace] 100 mg PO BID cap 11/10/17 Gabapentin [Neurontin] 100 mg PO TID cap 11/10/17 Ipratropium-Albuterol Nebulize 3 ml INHALATION RT-TID ampul.neb 11/10/17 [Duoneb 0.5 mg-3 mg/3 ml Soln] OLANZapine [ZyPREXA] 10 mg PO HS tab 11/10/17 Pantoprazole [Protonix] 40 mg PO AC-BRKFST tablet. 11/10/17 Warfarin [Coumadin] 5 mg PO DAILY #10 tab 11/10/17 HYDROcodone/APAP 5-325MG [[place] 1 tab PO Q6HR PRN 3 Days #12 tab 01/19/18 5-325] Allergies Allergy/AdvReac Type Severity Reaction Status Date / Time chlordiazepoxide HCl Allergy Unknown Verified 02/14/18 12:09 [From Librium] Penicillins Allergy Rash/Hives Verified 02/14/18 12:09 prochlorperazine edisylate Allergy PANIC Verified 02/14/18 12:09 [From Compazine] ATTACK prochlorperazine maleate Allergy PANIC Verified 02/14/18 12:09 [From Compazine] ATTACK Review of Systems ROS Statement: Those systems with pertinent positive or pertinent negative responses have been documented in the HPI. ROS Other: All systems not noted in ROS Statement are negative. Past Medical History Past Medical History: Heart Failure, CVA/TIA, Neurologic Disorder, Osteoarthritis (OA), Pneumonia Additional Past Medical History / Comment(s): Stroke with residual right-sided weakness 2017, marfan's syndrome, ArnoldChiari malformation, spontaneous pneumothorax x 21, scoliosis and pectus excavatum secondary to Marfan's, chronic back pain, bilateral leg pain, sinus infections, STATED HAS POOR CIRCULATION, viral meningitis, HEP C. History of Any Multi-Drug Resistant Organisms: MRSA Date of last positivie culture/infection: 05/05/2010 MDRO Source:: back per patient Past Surgical History: Cardiac Valve Replacement, Coronary Bypass/CABG, Joint Replacement Additional Past Surgical History / Comment(s): right foot corrective surgery, R shoulder surgery following injury, CABG x4 vessel, aortic root graft, aortic valve replaced as child (2 separate surgeries last 10 years old), tiffani lens removed. spleenectomy 2018 Past Anesthesia/Blood Transfusion Reactions: No Reported Reaction Past Psychological History: Anxiety Smoking Status: Current every day smoker Past Alcohol Use History: None Reported Past Drug Use History: None Reported - Past Family History Father Additional Family Medical History / Comment(s): Father is with history of AIDS. Mother Family Medical History: Diabetes Mellitus Additional Family Medical History / Comment(s): Mother at age 49 from liver cirrhosis secondary to alcohol abuse. Brother(s) Additional Family Medical History / Comment(s): Patient has one brother with no major medical problems. Patient does not have any sisters. Patient does not have any children. General Exam - General Exam Comments Initial Comments: 32-year-old female. Alert and oriented. No acute distress. Limitations: no limitations General appearance: alert, in no apparent distress Head exam: Present: atraumatic, normocephalic, normal inspection Eye exam: Present: normal appearance, PERRL, EOMI. Absent: scleral icterus, conjunctival injection, periorbital swelling ENT exam: Present: normal exam, mucous membranes moist Neck exam: Present: normal inspection. Absent: tenderness, meningismus, lymphadenopathy Respiratory exam: Present: normal lung sounds bilaterally. Absent: respiratory distress, wheezes, rales, rhonchi, stridor Cardiovascular Exam: Present: regular rate, normal rhythm, normal heart sounds. Absent: systolic murmur, diastolic murmur, rubs, gallop, clicks GI/Abdominal exam: Present: soft, normal bowel sounds. Absent: distended, tenderness, guarding, rebound, rigid Extremities exam: Present: normal inspection, full ROM, normal capillary refill. Absent: tenderness, pedal edema, joint swelling, calf tenderness Back exam: Present: normal inspection Neurological exam: Present: alert, oriented X3, CN II-XII intact Course Vital Signs 02/14/18 11:29 Temperature 98.0 F Pulse Rate 89 Respiratory 18 Rate Blood Pressure 104/67 O2 Sat by Pulse 97 Oximetry Medical Decision Making - Medical Decision Making 32-year-old female with a history of Marfan syndrome presents today with a headache. She is does not appear to be in any acute distress. No meningeal signs. . Patient was vital signs are stable. She was given a migraine cocktail but did not report minimal relief. Discussed I would not give her narcotic pain medication. Patient states that she will now like to leave. I wanted to bring him narcotics. I discussed return parameters. Discussed that her vitals and labs are normal. CT did show evidence of an old lacunar infarct. This is been stable. Patient understands treatment plan will comply. Return parameters were discussed. - Lab Data Result diagrams: 02/14/18 12:41 02/14/18 13:40 Lab Results 02/14/18 02/14/18 02/14/18 Range/Units 12:41 12:55 13:40 WBC 8.9 (3.8-10.6) k/uL RBC 5.47 H (3.80-5.40) m/uL Hgb 12.2 (11.4-16.0) gm/dL Hct 42.0 (34.0-46.0) % MCV 76.8 L (80.0-100.0) fL MCH 22.3 L (25.0-35.0) pg MCHC 29.0 L (31.0-37.0) g/dL RDW 19.4 H (11.5-15.5) % Plt Count 493 H (150-450) k/uL Neutrophils % 69 % Lymphocytes % 21 % Monocytes % 4 % Eosinophils % 3 % Basophils % 1 % Neutrophils # 6.1 (1.3-7.7) k/uL Lymphocytes # 1.9 (1.0-4.8) k/uL Monocytes # 0.4 (0-1.0) k/uL Eosinophils # 0.2 (0-0.7) k/uL Basophils # 0.1 (0-0.2) k/uL Hypochromasia Marked Poikilocytosis Slight Anisocytosis Slight Microcytosis Moderate PT 21.6 H (9.0-12.0) sec INR 2.4 H (<1.2) APTT 31.1 H (22.0-30.0) sec Sodium 141 (137-145) mmol/L Potassium 4.2 (3.5-5.1) mmol/L Chloride 106 (98-107) mmol/L Carbon Dioxide 26 (22-30) mmol/L Anion Gap 9 mmol/L BUN 7 (7-17) mg/dL Creatinine 0.50 L (0.52-1.04) mg/dL Est GFR (CKD-EPI)AfAm >90 (>60 ml/min/1.73 sqM) Est GFR (CKD-EPI)NonAf >90 (>60 ml/min/1.73 sqM) Glucose 76 (74-99) mg/dL Calcium 8.3 L (8.4-10.2) mg/dL Total Bilirubin 0.3 (0.2-1.3) mg/dL AST 21 (14-36) U/L ALT 27 (9-52) U/L Alkaline Phosphatase 111 (38-126) U/L Total Protein 7.3 (6.3-8.2) g/dL Albumin 3.3 L (3.5-5.0) g/dL - Radiology Data Radiology results: report reviewed Old left basal ganglion lacunar infarct. Disposition Clinical Impression: Headache Disposition: HOME SELF-CARE Condition: Good Instructions: Acute Headache (ED) Additional Instructions: Patient has a follow-up with primary care provider. Return to the emergency department if any alarming signs or symptoms occur. Is patient prescribed a controlled substance at d/c from ED?: No When asked, does pt state using other controlled substances?: No If prescribed controlled substance>3 days was MAPS reviewed?: No If opioid is for acute pain is fill amount 7 days or less?: No If Rx opioid, was Start Talking consent form obtained?: No Referrals: [facility] [Primary Care Provider] - 1-2 days Time of Disposition: 14:38
[2018-02-14 13:36] LABS: INR 2.4 (<1.2); Partial Thromboplastin Time 31.1 sec (22.0-30.0); Prothrombin Time 21.6 sec (9.0-12.0)
[2018-02-14 14:27] LABS: ALT 27 U/L (9-52); AST 21 U/L (14-36); Albumin 3.3 g/dL (3.5-5.0); Alkaline Phosphatase 111 U/L (38-126); Anion Gap 9 mmol/L; Blood Urea Nitrogen 7 mg/dL (7-17); Calcium 8.3 mg/dL (8.4-10.2); Carbon Dioxide 26 mmol/L (22-30); Chloride 106 mmol/L (98-107); Glucose 76 mg/dL (74-99); Potassium 4.2 mmol/L (3.5-5.1); Sodium 141 mmol/L (137-145); Total Bilirubin 0.3 mg/dL (0.2-1.3); Total Protein 7.3 g/dL (6.3-8.2)
--- NOTE | 2018-02-14 14:27 | CT ---
EXAMINATION TYPE: CT brain wo con DATE OF EXAM: 02/14/2018 COMPARISON: 03/05/2017 INDICATION: Headache and back pain DLP: 1076 mGycm, Automated exposure control for dose reduction was used. CONTRAST: None CT of the brain is performed utilizing 3 mm thick sections through the posterior fossa and 3 mm thick sections through the remaining calvarium. Study is performed within 24 hours of arrival to the hosp [facility]. No abnormal hyperdensity is present to suggest an acute intracranial hemorrhage. No mass lesion is evident. There is an old lacunar infarct within the left basal ganglion along the anterior portion lateral cap maureen. This is an interval finding from 03/05/2017. An acute infarct is not identified. Ventricles and sulci are appropriate for the patient age. Paranasal sinuses and mastoid air cells within the [id number] are clear. IMPRESSIONS: 1. Old left basal ganglion lacunar infarct.
[2018-02-14 14:36] VITALS: BP 125/68; PULSE 77
[2018-02-14 15:07] VITALS: TEMP 97
== END 2018-02-14 15:07 | disposition home or self-care (01) ==
LOC: EC 11:12
DX: R51 Headache (principal); G89.29 Other chronic pain; M54.9 Dorsalgia, unspecified; M19.90 Unspecified osteoarthritis, unspecified site; F17.200 Nicotine dependence, unspecified, uncomplicated; Z86.14 Personal history of Methicillin resistant Staphylococcus aureus infection; Z95.1 Presence of aortocoronary bypass graft; Z88.0 Allergy status to penicillin; Z88.8 Allergy status to other drugs, medicaments and biological substances; Z79.899 Other long term (current) drug therapy
CPT/HCPCS: 99284; 96374; 96375 ×2; 96361; 36415; 80053; 85025; 85610; 85730; 70450; J1200; J2360; J2765

== ENCOUNTER 2018-02-28 20:38 | Emergency (ER) | payer OTHER ==
--- NOTE | 2018-02-28 21:53 | ED ---
General Adult HPI - General Chief complaint: Extremity Problem,Nontraumatic Stated complaint: ankle swelling Time Seen by Provider: 02/28/18 21:44 Source: patient, RN notes reviewed, old records reviewed Mode of arrival: wheelchair Limitations: no limitations - History of Present Illness Initial comments: 32-year-old female presenting for evaluation of pain and swelling in her right foot. Patient is noticed symptoms for the past 24 hours. She's had pain with ambulation and significant pain in her right ankle. Denies any trauma or overuse. Is also had swelling throughout the foot. She does have remote history of operation on this foot by podiatry to straighten out her toes. No recent surgery. Denies fever or chills. Patient also has history of DVT, she is on Coumadin although she has not taking this medication for several days secondary to an elevated INR. No calf tenderness, no pain or swelling in any other joints. No chest pain or shortness of breath. - Related Data Home Medications Medication Instructions Recorded Confirmed Albuterol Inhaler [Ventolin Hfa 2 puff INHALATION RT-Q8H PRN 11/01/17 02/28/18 Inhaler] Cholecalciferol [Vitamin D3] 5,000 unit PO DAILY@0800 11/01/17 02/28/18 Ferrous Sulfate [Feosol] 325 mg PO HS@2100 11/01/17 02/28/18 Sennosides [Senokot] 8.6 mg PO DAILY PRN 02/14/18 02/28/18 Buprenorphine HCl/Naloxone HCl 1 tab SUBLINGUAL BID 02/28/18 02/28/18 [Zubsolv 5.7-1.4 mg Tablet Sl] Previous Rx's Medication Instructions Recorded Baclofen [Lioresal] 10 mg PO QID #60 tab 07/31/17 DULoxetine HCL [Cymbalta] 60 mg PO DAILY capsule. 11/10/17 Docusate [Colace] 100 mg PO BID cap 11/10/17 Gabapentin [Neurontin] 100 mg PO TID cap 11/10/17 Ipratropium-Albuterol Nebulize 3 ml INHALATION RT-TID ampul.neb 11/10/17 [Duoneb 0.5 mg-3 mg/3 ml Soln] OLANZapine [ZyPREXA] 10 mg PO HS tab 11/10/17 Pantoprazole [Protonix] 40 mg PO AC-BRKFST tablet. 11/10/17 Warfarin [Coumadin] 5 mg PO DAILY #10 tab 11/10/17 Doxycycline Monohydrate 100 mg PO BID 14 Days #28 capsule 02/28/18 [Vibramycin] Allergies Allergy/AdvReac Type Severity Reaction Status Date / Time chlordiazepoxide HCl Allergy Unknown Verified 02/28/18 21:45 [From Librium] Penicillins Allergy Rash/Hives Verified 02/28/18 21:45 prochlorperazine edisylate Allergy PANIC Verified 02/28/18 21:45 [From Compazine] ATTACK prochlorperazine maleate Allergy PANIC Verified 02/28/18 21:45 [From Compazine] ATTACK Review of Systems ROS Statement: Those systems with pertinent positive or pertinent negative responses have been documented in the HPI. ROS Other: All systems not noted in ROS Statement are negative. Past Medical History Past Medical History: Heart Failure, CVA/TIA, Neurologic Disorder, Osteoarthritis (OA), Pneumonia Additional Past Medical History / Comment(s): Stroke with residual right-sided weakness 2017, marfan's syndrome, ArnoldChiari malformation, spontaneous pneumothorax x 21, scoliosis and pectus excavatum secondary to Marfan's, chronic back pain, bilateral leg pain, sinus infections, STATED HAS POOR CIRCULATION, viral meningitis, HEP C. History of Any Multi-Drug Resistant Organisms: MRSA Date of last positivie culture/infection: 05/05/2010 MDRO Source:: back per patient Past Surgical History: Cardiac Valve Replacement, Coronary Bypass/CABG, Joint Replacement Additional Past Surgical History / Comment(s): right foot corrective surgery, R shoulder surgery following injury, CABG x4 vessel, aortic root graft, aortic valve replaced as child (2 separate surgeries last 10 years old), tiffani lens removed. spleenectomy 2018 Past Anesthesia/Blood Transfusion Reactions: No Reported Reaction Past Psychological History: Anxiety Smoking Status: Current every day smoker Past Alcohol Use History: None Reported Past Drug Use History: None Reported - Past Family History Father Additional Family Medical History / Comment(s): Father is with history of AIDS. Mother Family Medical History: Diabetes Mellitus Additional Family Medical History / Comment(s): Mother at age 49 from liver cirrhosis secondary to alcohol abuse. Brother(s) Additional Family Medical History / Comment(s): Patient has one brother with no major medical problems. Patient does not have any sisters. Patient does not have any children. General Exam Limitations: no limitations General appearance: alert, in no apparent distress Head exam: Present: atraumatic, normocephalic Eye exam: Present: normal appearance, PERRL ENT exam: Present: normal exam Respiratory exam: Present: normal lung sounds bilaterally. Absent: respiratory distress Cardiovascular Exam: Present: regular rate, normal rhythm GI/Abdominal exam: Present: soft. Absent: distended, tenderness Extremities exam: Present: pedal edema, joint swelling, other (Right foot, this is erythematous from the Rox[place] ankle to the mid foot, there is significant soft tissue swelling, no noted skin lesion. No induration or fluctuance.). Absent: calf tenderness Neurological exam: Present: alert, oriented X3, CN II-XII intact. Absent: motor sensory deficit Psychiatric exam: Present: normal affect, normal mood Skin exam: Present: warm, dry, erythema (Right foot, with warmth.) Course Vital Signs 02/28/18 20:59 Temperature 99.2 F Pulse Rate 106 H Respiratory 18 Rate Blood Pressure 123/76 O2 Sat by Pulse 93 L Oximetry Medical Decision Making - Medical Decision Making 32-year-old female with right foot swelling. Patient concern for DVT she has history of DVT and PE. She is on Coumadin but her INR had been elevated so she been off this medication for several days. On exam patient has erythema and swelling of the right foot and ankle area there is some warmth associated with it. There is no calf tenderness. INR is checked and this is therapeutic at 2.0 , ultrasound is negative for DVT. X-ray negative for soft tissue gas or osteomyelitis. There is concern that this is cellulitis or even deeper space infection in the foot. Laboratory studies reveal elevated white blood cell count at 15, elevated CRP at 74. Other labs are unremarkable. I Prefer the patient stay for IV antibiotics and orthopedics evaluation for possible infected joint space, patient declines. She states she has had swelling in this foot before and was concerned for DVT. Exam is concerning for at least a cellulitis and/or joint infection. Patient is informed of this and she would prefer to try oral antibiotics rather than admission for IV antibiotics. She states that she's had intermittent swelling of this foot before believes he may be chronic and was really just concerned for DVT. She does have relationship with podiatry and she is scheduled for evaluation in the next one-two weeks. She will try oral antibiotics and she will return with any worsening or changing symptoms. - Lab Data Result diagrams: 02/28/18 22:45 02/28/18 22:45 Lab Results 02/28/18 02/28/18 02/28/18 Range/Units 22:45 22:45 22:45 WBC 15.0 H (3.8-10.6) k/uL RBC 4.89 (3.80-5.40) m/uL Hgb 10.9 L (11.4-16.0) gm/dL Hct 36.8 (34.0-46.0) % MCV 75.2 L (80.0-100.0) fL MCH 22.4 L (25.0-35.0) pg MCHC 29.7 L (31.0-37.0) g/dL RDW 19.9 H (11.5-15.5) % Plt Count 461 H (150-450) k/uL Neutrophils % 79 % Lymphocytes % 14 % Monocytes % 4 % Eosinophils % 1 % Basophils % 1 % Neutrophils # 11.8 H (1.3-7.7) k/uL Lymphocytes # 2.0 (1.0-4.8) k/uL Monocytes # 0.7 (0-1.0) k/uL Eosinophils # 0.1 (0-0.7) k/uL Basophils # 0.1 (0-0.2) k/uL Hypochromasia Marked Poikilocytosis Slight Anisocytosis Slight Microcytosis Moderate PT (9.0-12.0) sec INR (<1.2) APTT (22.0-30.0) sec Sodium 137 (137-145) mmol/L Potassium 4.5 (3.5-5.1) mmol/L Chloride 99 (98-107) mmol/L Carbon Dioxide 27 (22-30) mmol/L Anion Gap 11 mmol/L BUN 9 (7-17) mg/dL Creatinine 0.60 (0.52-1.04) mg/dL Est GFR (CKD-EPI)AfAm >90 (>60 ml/min/1.73 sqM) Est GFR (CKD-EPI)NonAf >90 (>60 ml/min/1.73 sqM) Glucose 99 (74-99) mg/dL Plasma Lactic Acid Santino 1.1 (0.7-2.0) mmol/L Calcium 9.0 (8.4-10.2) mg/dL Total Bilirubin 0.6 (0.2-1.3) mg/dL AST 24 (14-36) U/L ALT 21 (9-52) U/L Alkaline Phosphatase 132 H (38-126) U/L C-Reactive Protein 74.3 H (<10.0) mg/L Total Protein 8.7 H (6.3-8.2) g/dL Albumin 4.2 (3.5-5.0) g/dL 02/28/18 Range/Units 22:45 WBC (3.8-10.6) k/uL RBC (3.80-5.40) m/uL Hgb (11.4-16.0) gm/dL Hct (34.0-46.0) % MCV (80.0-100.0) fL MCH (25.0-35.0) pg MCHC (31.0-37.0) g/dL RDW (11.5-15.5) % Plt Count (150-450) k/uL Neutrophils % % Lymphocytes % % Monocytes % % Eosinophils % % Basophils % % Neutrophils # (1.3-7.7) k/uL Lymphocytes # (1.0-4.8) k/uL Monocytes # (0-1.0) k/uL Eosinophils # (0-0.7) k/uL Basophils # (0-0.2) k/uL Hypochromasia Poikilocytosis Anisocytosis Microcytosis PT 17.8 H (9.0-12.0) sec INR 2.0 H (<1.2) APTT 31.1 H (22.0-30.0) sec Sodium (137-145) mmol/L Potassium (3.5-5.1) mmol/L Chloride (98-107) mmol/L Carbon Dioxide (22-30) mmol/L Anion Gap mmol/L BUN (7-17) mg/dL Creatinine (0.52-1.04) mg/dL Est GFR (CKD-EPI)AfAm (>60 ml/min/1.73 sqM) Est GFR (CKD-EPI)NonAf (>60 ml/min/1.73 sqM) Glucose (74-99) mg/dL Plasma Lactic Acid Santino (0.7-2.0) mmol/L Calcium (8.4-10.2) mg/dL Total Bilirubin (0.2-1.3) mg/dL AST (14-36) U/L ALT (9-52) U/L Alkaline Phosphatase (38-126) U/L C-Reactive Protein (<10.0) mg/L Total Protein (6.3-8.2) g/dL Albumin (3.5-5.0) g/dL Disposition Clinical Impression: Cellulitis of right foot Disposition: HOME SELF-CARE Condition: Fair Instructions: Cellulitis (ED) Prescriptions: Doxycycline Monohydrate [Vibramycin] 100 mg PO BID 14 Days #28 capsule Is patient prescribed a controlled substance at d/c from ED?: No Referrals: [facility] [Primary Care Provider] - 1-2 days Time of Disposition: 23:57
--- NOTE | 2018-02-28 22:40 | XR ---
EXAMINATION TYPE: XR foot complete RT DATE OF EXAM: 02/28/2018 COMPARISON: 10/01/2017 HISTORY: Foot pain TECHNIQUE: 3 views FINDINGS: There is a plate with screws fusing the first MP joint. There is some osteopenia. I see no fracture nor dislocation. Metatarsals are intact. IMPRESSION: No acute abnormality of the right foot. No change.
[2018-02-28 23:00] LABS: Partial Thromboplastin Time 31.1 sec (22.0-30.0); Prothrombin Time 17.8 sec (9.0-12.0)
[2018-02-28 23:01] LABS: Anisocytosis Slight; Basophils # (A) 0.1 k/uL (0-0.2); Basophils % (A) 1 %; Eosinophils # (A) 0.1 k/uL (0-0.7); Eosinophils % (A) 1 %; HCT 36.8 % (34.0-46.0); HGB 10.9 gm/dL (11.4-16.0); Hypochromasia Marked; Lymphocytes % (A) 14 %; MCH 22.4 pg (25.0-35.0); MCHC 29.7 g/dL (31.0-37.0); MCV 75.2 fL (80.0-100.0); Mean Platelet Volume 7.3; Microcytosis Moderate; Monocytes # (A) 0.7 k/uL (0-1.0); Monocytes % (A) 4 %; Neutrophils # (A) 11.8 k/uL (1.3-7.7); Neutrophils % (A) 79 %; Platelet Count 461 k/uL (150-450); Poikilocytosis Slight; RBC 4.89 m/uL (3.80-5.40); RDW 19.9 % (11.5-15.5)
[2018-02-28 23:03] LABS: ALT 21 U/L (9-52); AST 24 U/L (14-36); Albumin 4.2 g/dL (3.5-5.0); Alkaline Phosphatase 132 U/L (38-126); Anion Gap 11 mmol/L; Blood Urea Nitrogen 9 mg/dL (7-17); C Reactive Protein 74.3 mg/L (<10.0); Carbon Dioxide 27 mmol/L (22-30); Chloride 99 mmol/L (98-107); Glucose 99 mg/dL (74-99); Potassium 4.5 mmol/L (3.5-5.1); Sodium 137 mmol/L (137-145); Total Bilirubin 0.6 mg/dL (0.2-1.3); Total Protein 8.7 g/dL (6.3-8.2)
--- NOTE | 2018-02-28 23:31 | US ---
EXAMINATION TYPE: US venous doppler duplex LE RT DATE OF EXAM: 02/28/2018 9:51 PM COMPARISON: NONE CLINICAL HISTORY: Pain. Right ankle pain SIDE PERFORMED: Right TECHNIQUE: The lower extremity deep venous system is examined utilizing real time linear array sonog blanca with graded compression, doppler sonography and color-flow sonography. VESSELS IMAGED: External Iliac Vein (EIV) Common Femoral Vein Deep Femoral Vein Greater Saphenous Vein * Femoral Vein Popliteal Vein Small Saphenous Vein * Proximal Calf Veins (* superficial vessels) Right Leg: Negative for DVT No evidence of DVT right leg. IMPRESSION: No evidence of deep venous thrombosis in the right leg.
[2018-03-01 00:25] VITALS: BP 144/71; PULSE 76; RESP 16; TEMP 99
== END 2018-03-01 00:25 | disposition home or self-care (01) ==
LOC: EC 20:38
DX: L03.115 Cellulitis of right lower limb (principal); I50.9 Heart failure, unspecified; F17.200 Nicotine dependence, unspecified, uncomplicated; Z86.14 Personal history of Methicillin resistant Staphylococcus aureus infection; Z86.19 Personal history of other infectious and parasitic diseases; Z86.73 Personal history of transient ischemic attack (TIA), and cerebral infarction without residual deficits; Z79.891 Long term (current) use of opiate analgesic; Z79.899 Other long term (current) drug therapy; M19.90 Unspecified osteoarthritis, unspecified site; Z88.0 Allergy status to penicillin; Z88.8 Allergy status to other drugs, medicaments and biological substances; Z95.1 Presence of aortocoronary bypass graft; Z95.2 Presence of prosthetic heart valve
CPT/HCPCS: 36415; 80053; 83605; 85025; 85610; 85730; 86140; 87040; 87077; 87186; 99284

== ENCOUNTER 2018-03-02 11:53 | Inpatient (IN) | payer OTHER ==
[2018-03-02] MEDS ORDERED: cefTRIAXone IN SWFI 1,000 MG/10 ML SYRINGE IVP STA (13:43)
[2018-03-02] MEDS ORDERED: VANCOMYCIN IV PER PHARMACY 1 EACH MISC MISCELLANE PRN (13:43)
[2018-03-02] MEDS ORDERED: SODIUM CHLORIDE 0.9% 1,000 ML IV ONE (13:43)
--- NOTE | 2018-03-02 13:44 | ED ---
General Adult HPI - General Chief complaint: Extremity Problem,Nontraumatic Stated complaint: Infection Time Seen by Provider: 03/02/18 13:26 Source: patient, RN notes reviewed, old records reviewed Mode of arrival: ambulatory Limitations: no limitations - History of Present Illness Initial comments: 32-year-old female presents emergency department for violation pain and swelling in her right foot. She was here on Monday for similar complaints. She reports that she was started on antibiotics but the pain is seeming to get worse. Patient did have operations on the foot to strain on her toes in the past. No recent surgeries. She denies any fever or chills. She reports she's been more irritable. She denies any Pain in the calf or pain radiating up the leg. She denies any chest pain or shortness breath.Patient is a positive blood culture results today with gram-positive cocci in pairs and chains from her past ER visit this week. She was started on doxycycline and has been taking the medication. - Related Data Home Medications Medication Instructions Recorded Confirmed RX: Albuterol Inhaler [Ventolin 2 puff INHALATION RT-Q8H PRN 11/01/17 03/02/18 Hfa Inhaler] RX: Ferrous Sulfate [Feosol] 325 mg PO HS@2100 11/01/17 03/02/18 RX: Sennosides [Senokot] 8.6 mg PO DAILY PRN 02/14/18 03/02/18 Previous Rx's Medication Instructions Recorded RX: DULoxetine HCL [Cymbalta] 60 mg PO DAILY capsule. 11/10/17 RX: Gabapentin [Neurontin] 100 mg PO TID cap 11/10/17 RX: Ipratropium-Albuterol Nebulize 3 ml INHALATION RT-TID ampul.neb 11/10/17 [Duoneb 0.5 mg-3 mg/3 ml Soln] RX: OLANZapine [ZyPREXA] 10 mg PO HS tab 11/10/17 RX: Pantoprazole [Protonix] 40 mg PO AC-BRKFST tablet. 11/10/17 Warfarin [Coumadin] 5 mg PO DAILY #10 tab 11/10/17 Allergies Allergy/AdvReac Type Severity Reaction Status Date / Time chlordiazepoxide HCl Allergy Unknown Verified 03/02/18 13:11 [From Librium] Penicillins Allergy Rash/Hives Verified 03/02/18 13:11 prochlorperazine edisylate Allergy PANIC Verified 03/02/18 13:11 [From Compazine] ATTACK prochlorperazine maleate Allergy PANIC Verified 03/02/18 13:11 [From Compazine] ATTACK ketorolac [From Toradol] AdvReac Verified 03/02/18 14:45 Review of Systems ROS Statement: Those systems with pertinent positive or pertinent negative responses have been documented in the HPI. ROS Other: All systems not noted in ROS Statement are negative. Past Medical History Past Medical History: Heart Failure, CVA/TIA, Neurologic Disorder, Osteoarthritis (OA), Pneumonia Additional Past Medical History / Comment(s): Stroke with residual right-sided weakness 2017, marfan's syndrome, ArnoldChiari malformation, spontaneous pneumothorax x 21, scoliosis and pectus excavatum secondary to Marfan's, chronic back pain, bilateral leg pain, sinus infections, STATED HAS POOR CIRCULATION, viral meningitis, HEP C. History of Any Multi-Drug Resistant Organisms: MRSA Date of last positivie culture/infection: 05/05/2010 MDRO Source:: back per patient Past Surgical History: Cardiac Valve Replacement, Coronary Bypass/CABG, Joint Replacement Additional Past Surgical History / Comment(s): right foot corrective surgery, R shoulder surgery following injury, CABG x4 vessel, aortic root graft, aortic valve replaced as child (2 separate surgeries last 10 years old), tiffani lens removed. spleenectomy 2018 Past Anesthesia/Blood Transfusion Reactions: No Reported Reaction Past Psychological History: Anxiety Smoking Status: Current every day smoker Past Alcohol Use History: None Reported Past Drug Use History: None Reported - Past Family History Father Additional Family Medical History / Comment(s): Father is with history of AIDS. Mother Family Medical History: Diabetes Mellitus Additional Family Medical History / Comment(s): Mother at age 49 from liver cirrhosis secondary to alcohol abuse. Brother(s) Additional Family Medical History / Comment(s): Patient has one brother with no major medical problems. Patient does not have any sisters. Patient does not have any children. General Exam - General Exam Comments Initial Comments: 32-year-old female. Alert and oriented. No significant distress. No features of Marfan syndrome. Limitations: no limitations General appearance: alert, in no apparent distress Head exam: Present: atraumatic, normocephalic, normal inspection Eye exam: Present: normal appearance, PERRL, EOMI. Absent: scleral icterus, conjunctival injection, periorbital swelling ENT exam: Present: normal exam, mucous membranes moist Neck exam: Present: normal inspection. Absent: tenderness, meningismus, lymphadenopathy Respiratory exam: Present: normal lung sounds bilaterally. Absent: respiratory distress, wheezes, rales, rhonchi, stridor Cardiovascular Exam: Present: regular rate, normal rhythm, normal heart sounds. Absent: systolic murmur, diastolic murmur, rubs, gallop, clicks GI/Abdominal exam: Present: soft, normal bowel sounds. Absent: distended, tenderness, guarding, rebound, rigid Extremities exam: Present: full ROM, normal capillary refill. Absent: normal inspection (Patient has erythema and swelling over the right foot to the ankle. Normal pulses. Normal range of motion.), tenderness, pedal edema, joint swelling, calf tenderness Back exam: Present: normal inspection Neurological exam: Present: alert, oriented X3, CN II-XII intact Psychiatric exam: Present: normal affect, normal mood Skin exam: Present: warm, dry, intact, normal color. Absent: rash Course Vital Signs 03/02/18 13:09 Temperature 98.4 F Pulse Rate 58 L Respiratory 18 Rate Blood Pressure 116/68 O2 Sat by Pulse 92 L Oximetry Medical Decision Making - Medical Decision Making This Patient is a 32-year-old female presents emergency department today with right foot swelling and pain, she Emergency department and started on doxycycline 2 days ago. AT THAT TIME IS NEGATIVE FOR DVT. SHE REPORTS THAT HER SYMPTOMS ARE WORSENING. Her INR levels were within normal limits. White blood cell count has improved from previous. She reports some pain with range of motion of the ankle and foot. Her CRP is elevated at 75. White blood cell count is improved. Her previous blood culture was positive for gram-positive cocci. At this time started the Patient on Rocephin and vancomycin. We'll admit the Patient at this time for orthopedic consult and IV antibiotics. - Lab Data Result diagrams: 03/02/18 14:25 03/02/18 14:25 Lab Results 03/02/18 03/02/18 03/02/18 Range/Units 14:25 14:25 14:25 WBC 10.4 (3.8-10.6) k/uL RBC 5.00 (3.80-5.40) m/uL Hgb 11.2 L (11.4-16.0) gm/dL Hct 38.0 (34.0-46.0) % MCV 76.0 L (80.0-100.0) fL MCH 22.5 L (25.0-35.0) pg MCHC 29.6 L (31.0-37.0) g/dL RDW 20.1 H (11.5-15.5) % Plt Count 523 H (150-450) k/uL Neutrophils % 70 % Lymphocytes % 20 % Monocytes % 5 % Eosinophils % 3 % Basophils % 1 % Neutrophils # 7.2 (1.3-7.7) k/uL Lymphocytes # 2.1 (1.0-4.8) k/uL Monocytes # 0.5 (0-1.0) k/uL Eosinophils # 0.3 (0-0.7) k/uL Basophils # 0.1 (0-0.2) k/uL Hypochromasia Marked Poikilocytosis Slight Anisocytosis Moderate Microcytosis Moderate PT 21.4 H (9.0-12.0) sec INR 2.4 H (<1.2) APTT 35.2 H (22.0-30.0) sec Sodium 139 (137-145) mmol/L Potassium 4.6 (3.5-5.1) mmol/L Chloride 102 (98-107) mmol/L Carbon Dioxide 28 (22-30) mmol/L Anion Gap 9 mmol/L BUN 6 L (7-17) mg/dL Creatinine 0.40 L (0.52-1.04) mg/dL Est GFR (CKD-EPI)AfAm >90 (>60 ml/min/1.73 sqM) Est GFR (CKD-EPI)NonAf >90 (>60 ml/min/1.73 sqM) Glucose 82 (74-99) mg/dL Plasma Lactic Acid Santino (0.7-2.0) mmol/L Calcium 8.9 (8.4-10.2) mg/dL Total Bilirubin 0.5 (0.2-1.3) mg/dL AST 28 (14-36) U/L ALT 21 (9-52) U/L Alkaline Phosphatase 109 (38-126) U/L C-Reactive Protein (<10.0) mg/L Total Protein 8.1 (6.3-8.2) g/dL Albumin 3.7 (3.5-5.0) g/dL 03/02/18 03/02/18 Range/Units 14:25 14:25 WBC (3.8-10.6) k/uL RBC (3.80-5.40) m/uL Hgb (11.4-16.0) gm/dL Hct (34.0-46.0) % MCV (80.0-100.0) fL MCH (25.0-35.0) pg MCHC (31.0-37.0) g/dL RDW (11.5-15.5) % Plt Count (150-450) k/uL Neutrophils % % Lymphocytes % % Monocytes % % Eosinophils % % Basophils % % Neutrophils # (1.3-7.7) k/uL Lymphocytes # (1.0-4.8) k/uL Monocytes # (0-1.0) k/uL Eosinophils # (0-0.7) k/uL Basophils # (0-0.2) k/uL Hypochromasia Poikilocytosis Anisocytosis Microcytosis PT (9.0-12.0) sec INR (<1.2) APTT (22.0-30.0) sec Sodium (137-145) mmol/L Potassium (3.5-5.1) mmol/L Chloride (98-107) mmol/L Carbon Dioxide (22-30) mmol/L Anion Gap mmol/L BUN (7-17) mg/dL Creatinine (0.52-1.04) mg/dL Est GFR (CKD-EPI)AfAm (>60 ml/min/1.73 sqM) Est GFR (CKD-EPI)NonAf (>60 ml/min/1.73 sqM) Glucose (74-99) mg/dL Plasma Lactic Acid Santino 1.1 (0.7-2.0) mmol/L Calcium (8.4-10.2) mg/dL Total Bilirubin (0.2-1.3) mg/dL AST (14-36) U/L ALT (9-52) U/L Alkaline Phosphatase (38-126) U/L C-Reactive Protein 75.0 H (<10.0) mg/L Total Protein (6.3-8.2) g/dL Albumin (3.5-5.0) g/dL Disposition Clinical Impression: Cellulitis of right foot, Positive blood culture Disposition: ADMITTED IP TO THIS HOSP Condition: Stable Is patient prescribed a controlled substance at d/c from ED?: No When asked, does pt state using other controlled substances?: No If prescribed controlled substance>3 days was MAPS reviewed?: No If opioid is for acute pain is fill amount 7 days or less?: No If Rx opioid, was Start Talking consent form obtained?: No Referrals: [facility] [Primary Care Provider] - 1-2 days Time of Disposition: 16:07 - Out of Hospital Transfer - Req. Specs Out of Hospital Transfer - Requested Specifics: Other Emergency Center
[2018-03-02] MEDS ORDERED: VANCOMYCIN 1,000 MG in SODIUM CHLORIDE 0.9% 250 ML IVPB STA (13:48)
[2018-03-02] MEDS ORDERED: KETOROLAC 30 MG/ML 1 ML VIAL IVP STA (14:32)
[2018-03-02 14:43] LABS: Anisocytosis Moderate; Basophils # (A) 0.1 k/uL (0-0.2); Basophils % (A) 1 %; Eosinophils # (A) 0.3 k/uL (0-0.7); Eosinophils % (A) 3 %; HGB 11.2 gm/dL (11.4-16.0); Hypochromasia Marked; Lymphocytes # (A) 2.1 k/uL (1.0-4.8); Lymphocytes % (A) 20 %; MCH 22.5 pg (25.0-35.0); MCHC 29.6 g/dL (31.0-37.0); Microcytosis Moderate; Monocytes # (A) 0.5 k/uL (0-1.0); Monocytes % (A) 5 %; Neutrophils # (A) 7.2 k/uL (1.3-7.7); Neutrophils % (A) 70 %; Platelet Count 523 k/uL (150-450); Poikilocytosis Slight; RDW 20.1 % (11.5-15.5); WBC 10.4 k/uL (3.8-10.6)
[2018-03-02] MEDS: SODIUM CHLORIDE 0.9% 1,000 ML IV SCH (14:45)
[2018-03-02 14:49] LABS: ALT 21 U/L (9-52); AST 28 U/L (14-36); Albumin 3.7 g/dL (3.5-5.0); Alkaline Phosphatase 109 U/L (38-126); Anion Gap 9 mmol/L; Blood Urea Nitrogen 6 mg/dL (7-17); Calcium 8.9 mg/dL (8.4-10.2); Carbon Dioxide 28 mmol/L (22-30); Chloride 102 mmol/L (98-107); Glucose 82 mg/dL (74-99); Potassium 4.6 mmol/L (3.5-5.1); Sodium 139 mmol/L (137-145); Total Bilirubin 0.5 mg/dL (0.2-1.3); Total Protein 8.1 g/dL (6.3-8.2)
[2018-03-02 15:09] LABS: INR 2.4 (<1.2); Partial Thromboplastin Time 35.2 sec (22.0-30.0); Prothrombin Time 21.4 sec (9.0-12.0)
--- NOTE | 2018-03-02 15:34 | XR ---
EXAMINATION TYPE: XR foot complete RT DATE OF EXAM: 03/02/2018 COMPARISON: 02/28/2018 HISTORY: 32-year-old female cellulitis, pain, and swelling TECHNIQUE: 3 views FINDINGS: Prior plate and screw fixation with a bony ankylosis across the first MTP joint. No prosthetic compli cation is identified. Diffuse soft tissue swelling is noted. Osteopenia. No acute fracture, subluxati on, or dislocation. No periostitis or osteolysis seen. IMPRESSION: Mild diffuse soft tissue swelling. Generalized osteopenia. Uncomplicated appearance to the first MTP joint surgical arthrodesis. No acute osseous abnormality seen.
[2018-03-02] MEDS ORDERED: ONDANSETRON 4 MG/2 ML VIAL IVP PRN (16:08)
[2018-03-02] MEDS ORDERED: NALOXONE 0.4 MG/ML 1 ML VIAL IV PRN ×2 (16:08→17:03)
[2018-03-02] MEDS ORDERED: LORazepam 2 MG/ML INJ IV PRN (16:08)
[2018-03-02] MEDS ORDERED: IBUPROFEN 400 MG TAB PO PRN (16:08)
[2018-03-02] MEDS ORDERED: MORPHINE SULFATE 2 MG/ML SYRINGE IV PRN (16:08)
[2018-03-02] MEDS ORDERED: ACETAMINOPHEN TAB 325 MG TAB PO PRN (16:08)
[2018-03-02] MEDS ORDERED: SENNOSIDES 8.6 MG TAB PO PRN (17:06)
[2018-03-02] MEDS ORDERED: ALBUTEROL NEBULIZED 2.5 MG/3 ML INHALATION PRN (17:06)
--- NOTE | 2018-03-02 17:24 | P.HPIM ---
History of Present Illness H&P Date: 03/02/18 Chief Complaint: Right foot pain 32-year-old female presents emergency department for excruciating pain and swelling in her right foot. Symptoms started on Monday. Patient has not been able to walk on her right foot due to severe pain. No history of trauma. She was here on Monday for similar complaints. She was started on doxycycline at that time and discharged home, but the pain and swelling continued to get worse despite taking the medication. She denies any fever or chills. No nausea or vomiting, no diarrhea. She denies any Pain in the calf or pain radiating up the leg. She denies any chest pain or shortness breath. Patient has positive blood culture results today with gram-positive cocci in pairs and chains from her past ER visit this week. Review of Systems 12 point review of system performed, negative except HPI Past Medical History Past Medical History: Heart Failure, CVA/TIA, Neurologic Disorder, Osteoarthritis (OA), Pneumonia Additional Past Medical History / Comment(s): Stroke with residual right-sided weakness 2017, marfan's syndrome, ArnoldChiari malformation, spontaneous pneumothorax x 21, scoliosis and pectus excavatum secondary to Marfan's, chronic back pain, bilateral leg pain, sinus infections, STATED HAS POOR CIRCULATION, viral meningitis, HEP C. History of Any Multi-Drug Resistant Organisms: MRSA Date of last positivie culture/infection: 05/05/2010 MDRO Source:: back per patient Past Surgical History: Cardiac Valve Replacement, Coronary Bypass/CABG, Joint Replacement Additional Past Surgical History / Comment(s): right foot corrective surgery, R shoulder surgery following injury, CABG x4 vessel, aortic root graft, aortic valve replaced as child (2 separate surgeries last 10 years old), tiffani lens removed. spleenectomy 2018 Past Anesthesia/Blood Transfusion Reactions: No Reported Reaction Past Psychological History: Anxiety Additional Psychological History / Comment(s): . Smoking Status: Current every day smoker Past Alcohol Use History: None Reported Additional Past Alcohol Use History / Comment(s): Patient is smoker of one pack per day since she was 10 years of age. She denies any medical marijuana, marijuana, street drug or alcohol use. Patient is currently on disability. She recently obtained a public guardian and is living in a retirement. 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 denies etoh or drug use and UDS negative - Past Family History Father Additional Family Medical History / Comment(s): Father is with history of AIDS. Mother Family Medical History: Diabetes Mellitus Additional Family Medical History / Comment(s): Mother at age 49 from liver cirrhosis secondary to alcohol abuse. Brother(s) Additional Family Medical History / Comment(s): Patient has one brother with no major medical problems. Patient does not have any sisters. Patient does not have any children. Medications and Allergies Home Medications Medication Instructions Recorded Confirmed Type Albuterol Inhaler [Ventolin Hfa 2 puff INHALATION RT-Q8H PRN 11/01/17 03/02/18 History Inhaler] Ferrous Sulfate [Feosol] 325 mg PO HS@2100 11/01/17 03/02/18 History DULoxetine HCL [Cymbalta] 60 mg PO DAILY capsule. 11/10/17 03/02/18 Rx Gabapentin [Neurontin] 100 mg PO TID cap 11/10/17 03/02/18 Rx Ipratropium-Albuterol Nebulize 3 ml INHALATION RT-TID ampul.neb 11/10/17 Rx [Duoneb 0.5 mg-3 mg/3 ml Soln] OLANZapine [ZyPREXA] 10 mg PO HS tab 11/10/17 03/02/18 Rx Pantoprazole [Protonix] 40 mg PO AC-BRKFST tablet. 11/10/17 02/28/18 Rx Warfarin [Coumadin] 5 mg PO DAILY #10 tab 11/10/17 03/02/18 Rx Sennosides [Senokot] 8.6 mg PO DAILY PRN 02/14/18 03/02/18 History Allergies Allergy/AdvReac Type Severity Reaction Status Date / Time chlordiazepoxide HCl Allergy Unknown Verified 03/02/18 13:11 [From Librium] Penicillins Allergy Rash/Hives Verified 03/02/18 13:11 prochlorperazine edisylate Allergy PANIC Verified 03/02/18 13:11 [From Compazine] ATTACK prochlorperazine maleate Allergy PANIC Verified 03/02/18 13:11 [From Compazine] ATTACK ketorolac [From Toradol] AdvReac Verified 03/02/18 14:45 Physical Exam Vitals: Vital Signs Temp Pulse Resp BP Pulse Ox 03/02/18 16:48 97.0 F L 73 16 109/65 96 03/02/18 13:09 98.4 F 58 L 18 116/68 92 L Intake and Output 03/02/18 03/02/18 03/02/18 06:59 14:59 22:59 Other: Weight 57.606 kg Constitutional: No acute distress, conversant, pleasant Eyes:Anicteric sclerae, moist conjunctiva, no lid-lag, PERRLA, ENMT: Oropharynx clear, no erythema, exudates Neck: Supple, FROM, no masses, or JVD, No carotid bruits, No thyromegaly Lungs: Clear to auscultation, Clear to percussion, Normal respiratory effort, no accessory muscle use Cardiovascular: Mechanical heart sounds, S1-S2, regular rate and rhythm, No murmurs, gallops, or rubs, No peripheral edema Abdominal: Soft, Nontender, no guarding, rebound or rigidity, Normoactive bowel sounds, No hepatomegaly, No splenomegaly, No palpable mass Skin: Severe erythema and tenderness to touch Normal temperature, tone, texture , turgor, no induration, No subcutaneous nodules, No rash, lesions, No ulcers Extremities: Right ankle swelling, limited range of motion, No digital cyanosis , No clubbing, Pedal pulses intact and symmetrical, Radial pulses intact and symmetrical, No calf tenderness Psychiatric: Alert and oriented to person, place and time, appropriate affect, intact judgement Neuro: Muscles Strength 5/5 in all 4 extremities, Sensation to light touch grossly present throughout, Cranial nerves II-XII grossly intact, no focal sensory deficits Results CBC & Chem 7: 03/02/18 14:25 03/02/18 14:25 Labs: Abnormal Lab Results - Last 24 Hours (Table) 03/02/18 03/02/18 03/02/18 Range/Units 14:25 14:25 14:25 Hgb 11.2 L (11.4-16.0) gm/dL MCV 76.0 L (80.0-100.0) fL MCH 22.5 L (25.0-35.0) pg MCHC 29.6 L (31.0-37.0) g/dL RDW 20.1 H (11.5-15.5) % Plt Count 523 H (150-450) k/uL PT 21.4 H (9.0-12.0) sec INR 2.4 H (<1.2) APTT 35.2 H (22.0-30.0) sec BUN 6 L (7-17) mg/dL Creatinine 0.40 L (0.52-1.04) mg/dL C-Reactive Protein (<10.0) mg/L 03/02/18 Range/Units 14:25 Hgb (11.4-16.0) gm/dL MCV (80.0-100.0) fL MCH (25.0-35.0) pg MCHC (31.0-37.0) g/dL RDW (11.5-15.5) % Plt Count (150-450) k/uL PT (9.0-12.0) sec INR (<1.2) APTT (22.0-30.0) sec BUN (7-17) mg/dL Creatinine (0.52-1.04) mg/dL C-Reactive Protein 75.0 H (<10.0) mg/L Thrombosis Risk Factor Assmnt - Choose All That Apply Any of the Below Risk Factors Present?: Yes Each Factor Represents 1 point: Swollen legs (current) Thrombosis Risk Factor Assessment Total Risk Factor Score: 1 Thrombosis Risk Factor Assessment Level: Low Risk Assessment and Plan Plan: Gram-positive bacteremia Source likely from the cellulitis involving the right ankle and foot Repeat blood cultures obtained in the emergency department ID consult Foot x-ray reviewed Ankle x-ray Doppler ultrasound to rule out DVT as ankle and foot are swollen. Vancomycin per pharmacy Chronic problems History of congestive heart Failure, status post mechanical valve replacement, Osteoarthritis (OA), Pneumonia, Stroke with residual right-sided weakness 2016, marfan's syndrome, ArnoldChiari malformation, spontaneous pneumothorax x 21, scoliosis and pectus excavatum secondary to Marfan's, chronic back pain, chronic bilateral leg pain, HEP C. History of Any Multi-Drug Resistant Organisms : MRSA: Resume home meds DVT prophylaxis Already on Coumadin, continue
[2018-03-02] MEDS ORDERED: LEVOFLOXACIN 750MG-D5W PMX 750 MG in DEXTROSE/WATER 1 150ML.BAG IVPB SCH (17:30)
--- NOTE | 2018-03-02 17:37 | XR ---
EXAMINATION TYPE: XR ankle complete RT DATE OF EXAM: 03/02/2018 COMPARISON: NONE HISTORY: Pain and swelling TECHNIQUE: 3 views FINDINGS: There is soft tissue swelling around the ankle joint. I see no fracture nor dislocation. An kle mortise is anatomic. There is osteopenia. IMPRESSION: Soft tissue swelling. No fracture seen.
[2018-03-02] MEDS: WARFARIN 5 MG TAB PO SCH (18:18)
[2018-03-02] MEDS: IPRATROPIUM-ALBUTEROL 3 ML NEB INHALATION SCH (20:03)
[2018-03-02] MEDS: OLANZapine 10 MG TAB PO SCH (23:14)
[2018-03-02] MEDS: GABAPENTIN 100 MG CAP PO SCH (23:14)
[2018-03-02] MEDS: FERROUS SULFATE 325 MG TAB PO SCH (23:14)
[2018-03-03] MEDS: VANCOMYCIN 1,000 MG in SODIUM CHLORIDE 0.9% 250 ML IVPB SCH ×3 (00:44→17:49)
[2018-03-03] MEDS: SODIUM CHLORIDE 0.9% 1,000 ML IV SCH ×3 (00:47→17:52)
[2018-03-03] MEDS: IPRATROPIUM-ALBUTEROL 3 ML NEB INHALATION SCH ×3 (08:08→19:34)
[2018-03-03 08:44] LABS: Anisocytosis Slight; Basophils # (A) 0.1 k/uL (0-0.2); Basophils % (A) 1 %; Eosinophils # (A) 0.3 k/uL (0-0.7); Eosinophils % (A) 3 %; HCT 33.5 % (34.0-46.0); HGB 9.8 gm/dL (11.4-16.0); Hypochromasia Marked; Lymphocytes # (A) 1.5 k/uL (1.0-4.8); Lymphocytes % (A) 16 %; MCH 22.5 pg (25.0-35.0); MCHC 29.2 g/dL (31.0-37.0); MCV 77.1 fL (80.0-100.0); Microcytosis Moderate; Monocytes # (A) 0.6 k/uL (0-1.0); Monocytes % (A) 6 %; Neutrophils # (A) 6.9 k/uL (1.3-7.7); Neutrophils % (A) 73 %; Platelet Count 451 k/uL (150-450); Poikilocytosis Slight; RBC 4.35 m/uL (3.80-5.40); WBC 9.4 k/uL (3.8-10.6)
[2018-03-03 08:57] LABS: ALT 23 U/L (9-52); AST 20 U/L (14-36); Albumin 2.8 g/dL (3.5-5.0); Alkaline Phosphatase 91 U/L (38-126); Anion Gap 10 mmol/L; Blood Urea Nitrogen 7 mg/dL (7-17); Calcium 8.2 mg/dL (8.4-10.2); Carbon Dioxide 20 mmol/L (22-30); Chloride 111 mmol/L (98-107); Glucose 78 mg/dL (74-99); Magnesium 1.8 mg/dL (1.6-2.3); Phosphorus 4.3 mg/dL (2.5-4.5); Potassium 4.6 mmol/L (3.5-5.1); Sodium 141 mmol/L (137-145); Total Bilirubin 0.3 mg/dL (0.2-1.3); Total Protein 6.4 g/dL (6.3-8.2)
[2018-03-03] MEDS ORDERED: PANTOPRAZOLE 40 MG/10 ML VIAL IV SCH (09:00)
[2018-03-03 09:06] LABS: Target Cells Present
[2018-03-03] MEDS: DULoxetine HCL 60 MG CAPSULE.DR PO SCH (09:19)
[2018-03-03] MEDS: GABAPENTIN 100 MG CAP PO SCH ×3 (09:19→20:40)
[2018-03-03] MEDS: PANTOPRAZOLE 40 MG TABLET PO SCH (09:19)
[2018-03-03 12:11] VITALS: BMI 17.6
--- NOTE | 2018-03-03 13:38 | US ---
EXAMINATION TYPE: US venous doppler duplex LE RT DATE OF EXAM: 03/03/2018 12:13 PM COMPARISON: Previous dated 02/28/2018 CLINICAL HISTORY: r/o dvt. Right lower extremity pain and swelling SIDE PERFORMED: TECHNIQUE: The lower extremity deep venous system is examined utilizing real time linear array sonog blanca with graded compression, doppler sonography and color-flow sonography. VESSELS IMAGED: External Iliac Vein (EIV) Common Femoral Vein Deep Femoral Vein Greater Saphenous Vein * Femoral Vein Popliteal Vein Small Saphenous Vein * Proximal Calf Veins (* superficial vessels) Limited due to pt tolerance Right Leg: Negative for DVT Grayscale, color doppler, spectral doppler imaging performed of the deep veins of the lower extremiti es. There is normal flow, compressibility, vascular waveforms. IMPRESSION: No evident deep venous thrombosis at or above the right knee.
--- NOTE | 2018-03-03 14:16 | P.PN ---
Subjective Progress Note Date: 03/03/18 Principal diagnosis: Right leg/foot pain and swelling patient continues to have significant pain and swelling in the right ankle and foot. Objective - Vital Signs Vital signs: Vital Signs Temp 97.7 F 03/03/18 07:00 Pulse 86 03/03/18 07:00 Resp 16 03/03/18 07:00 BP 103/51 03/03/18 07:00 Pulse Ox 88 L 03/03/18 07:00 Intake & Output 03/02/18 03/03/18 03/03/18 18:59 06:59 18:59 Intake Total 400 Balance 400 Weight 57.606 kg 57.606 kg Intake: Oral 400 Other: # Voids 2 # Bowel Movements 0 - Exam Constitutional: No acute distress, conversant, pleasant Eyes:Anicteric sclerae, moist conjunctiva, no lid-lag, PERRLA, ENMT: Oropharynx clear, no erythema, exudates Neck: Supple, FROM, no masses, or JVD, No carotid bruits, No thyromegaly Lungs: Clear to auscultation, Clear to percussion, Normal respiratory effort, no accessory muscle use Cardiovascular: Mechanical heart sounds, S1-S2, regular rate and rhythm, No murmurs, gallops, or rubs, No peripheral edema Abdominal: Soft, Nontender, no guarding, rebound or rigidity, Normoactive bowel sounds, No hepatomegaly, No splenomegaly, No palpable mass Skin: Severe erythema and tenderness to touch Normal temperature, tone, texture , turgor, no induration, No subcutaneous nodules, No rash, lesions, No ulcers Extremities: Right ankle swelling, limited range of motion, No digital cyanosis , No clubbing, Pedal pulses intact and symmetrical, Radial pulses intact and symmetrical, No calf tenderness Psychiatric: Alert and oriented to person, place and time, appropriate affect, intact judgement Neuro: Muscles Strength 5/5 in all 4 extremities, Sensation to light touch grossly present throughout, Cranial nerves II-XII grossly intact, no focal sensory deficits - Labs CBC & Chem 7: 03/03/18 07:57 03/03/18 07:57 Labs: Abnormal Lab Results - Last 24 Hours (Table) 03/02/18 03/02/18 03/02/18 Range/Units 14:25 14:25 14:25 Hgb 11.2 L (11.4-16.0) gm/dL Hct (34.0-46.0) % MCV 76.0 L (80.0-100.0) fL MCH 22.5 L (25.0-35.0) pg MCHC 29.6 L (31.0-37.0) g/dL RDW 20.1 H (11.5-15.5) % Plt Count 523 H (150-450) k/uL PT 21.4 H (9.0-12.0) sec INR 2.4 H (<1.2) APTT 35.2 H (22.0-30.0) sec Chloride (98-107) mmol/L Carbon Dioxide (22-30) mmol/L BUN 6 L (7-17) mg/dL Creatinine 0.40 L (0.52-1.04) mg/dL Calcium (8.4-10.2) mg/dL C-Reactive Protein (<10.0) mg/L Albumin (3.5-5.0) g/dL 03/02/18 03/03/18 03/03/18 Range/Units 14:25 07:57 07:57 Hgb 9.8 L (11.4-16.0) gm/dL Hct 33.5 L (34.0-46.0) % MCV 77.1 L (80.0-100.0) fL MCH 22.5 L (25.0-35.0) pg MCHC 29.2 L (31.0-37.0) g/dL RDW 20.0 H (11.5-15.5) % Plt Count 451 H (150-450) k/uL PT (9.0-12.0) sec INR (<1.2) APTT (22.0-30.0) sec Chloride 111 H (98-107) mmol/L Carbon Dioxide 20 L (22-30) mmol/L BUN (7-17) mg/dL Creatinine 0.49 L (0.52-1.04) mg/dL Calcium 8.2 L (8.4-10.2) mg/dL C-Reactive Protein 75.0 H (<10.0) mg/L Albumin 2.8 L (3.5-5.0) g/dL Microbiology - Last 24 Hours (Table) 03/02/18 14:25 Blood Culture Gram Stain - Preliminary Blood 03/02/18 14:25 Blood Culture - Final Blood Assessment and Plan Plan: Gram-positive bacteremia Source likely from the cellulitis involving the right ankle and foot Repeat blood cultures obtained in the emergency department--follow ID consult--pending Foot x-ray reviewed Ankle x-ray reviewed Doppler ultrasound negative for DVT in the RLE. Continue Levaquin and vancomycin per pharmacy Chronic problems History of congestive heart Failure, status post mechanical valve replacement, Osteoarthritis (OA), Pneumonia, Stroke with residual right-sided weakness 2016, marfan's syndrome, ArnoldChiari malformation, spontaneous pneumothorax x 21, scoliosis and pectus excavatum secondary to Marfan's, chronic back pain, chronic bilateral leg pain, HEP C. History of MRSA: Resume home meds DVT prophylaxis Already on Coumadin, continue
--- NOTE | 2018-03-03 16:44 | P.CONS ---
History of Present Illness - Reason for Consult Consult date: 03/03/18 - Chief Complaint Weakness - History of Present Illness This is a 32-year-old female with significant past health history of Marfan syndrome, multiple aortic valve replacement starting on chronic Coumadin , history of hepatitis C. Patient presented to [facility] emergency center on November 02 with complaints of abdominal pain. Her INR was at 9. 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 She was initially admitted into intensive care. Patient subsequently developed lethargy and due to concern for active splenic hemorrhage she was given additional vitamin K and fresh frozen plasma and on the morning of November 03 she developed worsening abdominal pain and her hemoglobin had dropped down to 5.9 and INR was 1.9. She got underwent a repeat CT of the abdomen and pelvis showing worsening enlargement of the spleen and hemoperitoneum. Patient was taken to the OR emergently by Dr. Centeno and performed an open splenectomy. Patient returned to the ICU intubated and was subsequently extubated and transferred to the selective care unit. During that stay infectious diseases was consulted with concerns to D enterococcus bacteremia was found in the blood culture. Laboratory corrected this to be aerococcous which was a contamination requiring no further antibiotic intervention. At that time the patient was not having fevers chills or leukocytosis. She eventually was discharged from hospital. She's now presenting from home with a several-day history of much pain to her right foot and ankle. Such that she is not able to bear weight on it. Moving the foot itself causes severe pain. She cries out in pain if it is manipulated. She does have the many medical troubles that includes her Marfan's disease and underlying psychiatric disorder, however appears to have an acute illness at this point in time. Review of Systems Constitutional: His complaint of fever and chill Eyes: denies blurred vision, denies pain Ears, nose, mouth and throat: Denies headache, Denies sore throat Cardiovascular: Reports shortness of breath, Denies chest pain Respiratory: Reports cough, Reports dyspnea, Denies cough with sputum, Denies excessive sputum, Denies hemoptysis, Denies home oxygen, Denies wheezing Gastrointestinal: Reports abdominal pain, Denies diarrhea, Denies nausea, Denies vomiting Genitourinary: Denies dysuria, Denies hematuria, Denies urinary frequency Musculoskeletal: Severe pain to her right foot and ankle area as per the HPI Integumentary: Denies pruritus, Denies rash Neurological: Denies numbness, Denies weakness Psychiatric: Chronic anxiety depression Endocrine: Chronic vertebral weight has been stable Past Medical History Past Medical History: Heart Failure, CVA/TIA, Neurologic Disorder, Osteoarthritis (OA), Pneumonia Additional Past Medical History / Comment(s): Stroke with residual right-sided weakness 2017, marfan's syndrome, ArnoldChiari malformation, spontaneous pneumothorax x 21, scoliosis and pectus excavatum secondary to Marfan's, chronic back pain, bilateral leg pain, sinus infections, STATED HAS POOR CIRCULATION, viral meningitis, HEP C. History of Any Multi-Drug Resistant Organisms: MRSA Year Discovered:: 05/05/2010 MDRO Source:: back per patient Past Surgical History: Cardiac Valve Replacement, Coronary Bypass/CABG, Joint Replacement Additional Past Surgical History / Comment(s): right foot corrective surgery, R shoulder surgery following injury, CABG x4 vessel, aortic root graft, aortic valve replaced as child (2 separate surgeries last 10 years old), tiffani lens removed. spleenectomy 2018 Past Anesthesia/Blood Transfusion Reactions: No Reported Reaction Past Psychological History: Anxiety Additional Psychological History / Comment(s): . Smoking Status: Current every day smoker Past Alcohol Use History: None Reported Additional Past Alcohol Use History / Comment(s): Patient is smoker of one pack per day since she was 10 years of age. She denies any medical marijuana, marijuana, street drug or alcohol use. Patient is currently on disability. She recently obtained a public guardian and is living in a [facility]. 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 denies etoh or drug use and UDS negative - Past Family History Father Additional Family Medical History / Comment(s): Father is with history of AIDS. Mother Family Medical History: Diabetes Mellitus Additional Family Medical History / Comment(s): Mother at age 49 from liver cirrhosis secondary to alcohol abuse. Brother(s) Additional Family Medical History / Comment(s): Patient has one brother with no major medical problems. Patient does not have any sisters. Patient does not have any children. Medications and Allergies Home Medications and Allergies Comment(s): Current Medications Acetaminophen (Tylenol Tab) 650 mg PO Q6HR PRN PRN Reason: Mild Pain or Fever > 100.5 Hydrocodone Bitart/Acetaminophen (Ellamore 5-325) 1 each PO Q4HR PRN PRN Reason: Moderate Pain Albuterol Sulfate (Ventolin Nebulized) 2.5 mg INHALATION RT-Q8H PRN PRN Reason: sob Albuterol/Ipratropium (Duoneb 0.5 Mg-3 Mg/3 Ml Soln) 3 ml INHALATION RT-TID [facility] Last Admin: 03/03/18 13:48 Dose: Not Given Duloxetine HCl (Cymbalta) 60 mg PO DAILY [facility] Last Admin: 03/03/18 09:19 Dose: 60 mg Ferrous Sulfate (Feosol) 325 mg PO HS@2100 [facility] Last Admin: 03/02/18 23:14 Dose: 325 mg Gabapentin (Neurontin) 100 mg PO TID [facility] Last Admin: 03/03/18 09:19 Dose: 100 mg Sodium Chloride (Saline 0.9%) 1,000 mls @ 100 mls/hr IV .Q10H [facility] Last Admin: 03/03/18 09:20 Dose: 100 mls/hr Vancomycin HCl 1,000 mg/ (Sodium Chloride) 250 mls @ 125 mls/hr IVPB Q8HR [facility] Last Admin: 03/03/18 09:19 Dose: 125 mls/hr Ibuprofen (Motrin) 400 mg PO Q6HR PRN PRN Reason: Mild Pain or Fever > 100.5 Lorazepam (Ativan) 0.5 mg IV Q6HR PRN PRN Reason: Anxiety Miscellaneous Information (Vancomycin Trough Due) 0 each MISCELLANE DIRECTED ONE Stop: 03/03/18 23:01 Morphine Sulfate (Morphine Sulfate (Inj)) 2 mg IV Q4HR PRN PRN Reason: Severe Pain Naloxone HCl (Narcan) 0.2 mg IV Q2M PRN PRN Reason: Opioid Reversal Olanzapine (Zyprexa) 10 mg PO HS [facility] Last Admin: 03/02/18 23:14 Dose: 10 mg Ondansetron HCl (Zofran) 4 mg IVP Q8HR PRN PRN Reason: Nausea And Vomiting Pantoprazole Sodium (Protonix) 40 mg PO AC-BRKFST [facility] Last Admin: 03/03/18 09:19 Dose: 40 mg Senna (Senokot) 8.6 mg PO DAILY PRN PRN Reason: Constipation Warfarin Sodium (Coumadin) 5 mg PO DAILY@1800 [facility] Last Admin: 03/02/18 18:18 Dose: 5 mg Home Medications Medication Instructions Recorded Confirmed Type Albuterol Inhaler [Ventolin Hfa 2 puff INHALATION RT-Q8H PRN 11/01/17 03/02/18 History Inhaler] Ferrous Sulfate [Feosol] 325 mg PO HS@2100 11/01/17 03/02/18 History DULoxetine HCL [Cymbalta] 60 mg PO DAILY capsule. 11/10/17 03/02/18 Rx Gabapentin [Neurontin] 100 mg PO TID cap 11/10/17 03/02/18 Rx Ipratropium-Albuterol Nebulize 3 ml INHALATION RT-TID ampul.neb 11/10/17 Rx [Duoneb 0.5 mg-3 mg/3 ml Soln] OLANZapine [ZyPREXA] 10 mg PO HS tab 11/10/17 03/02/18 Rx Pantoprazole [Protonix] 40 mg PO AC-BRKFST tablet. 11/10/17 02/28/18 Rx Warfarin [Coumadin] 5 mg PO DAILY #10 tab 11/10/17 03/02/18 Rx Sennosides [Senokot] 8.6 mg PO DAILY PRN 02/14/18 03/02/18 History Allergies Allergy/AdvReac Type Severity Reaction Status Date / Time chlordiazepoxide HCl Allergy Unknown Verified 03/02/18 13:11 [From Librium] Penicillins Allergy Rash/Hives Verified 03/02/18 13:11 prochlorperazine edisylate Allergy PANIC Verified 03/02/18 13:11 [From Compazine] ATTACK prochlorperazine maleate Allergy PANIC Verified 03/02/18 13:11 [From Compazine] ATTACK ketorolac [From Toradol] AdvReac Verified 03/02/18 14:45 Physical Exam Vitals: Vital Signs Temp Pulse Pulse Resp BP BP Pulse Ox 03/03/18 15:00 97.6 F 81 16 106/65 91 L 03/03/18 07:00 97.7 F 86 16 103/51 88 L 03/02/18 23:00 96.3 F L 56 L 20 87/51 95 03/02/18 20:04 96 03/02/18 17:30 96.8 F L 71 18 90/54 91 L 03/02/18 16:48 97.0 F L 73 16 109/65 96 Intake and Output 03/03/18 03/03/18 03/03/18 06:59 14:59 22:59 Other: # Voids 2 2 # Bowel Movements 0 Weight 57.606 kg 32-year-old woman who is supine in bed resting, when aroused complains of significant pain to her right ankle. Denies current chills. HEENT: Anicteric conjunctiva are pink and moist nasal mucosa grossly intact without significant lesions, there is no thrush. She has very poor vision with highly corrective glasses Neck: The neck is supple without significant lymphadenopathy or thyromegaly. Lungs: Good bilateral air entry without significant crackles or wheezing. There is no significant bronchial sounds. There is no egophony or dullness. Heart: Regular with no audible S1 and S2 the loud click of the aortic valve prosthesis is easily heard, no murmur is noted. Abdomen: Positive bowel sounds soft and nontender without palpable masses or organomegaly. There was no guarding or rebound. Extremities: The upper extremities have excellent pulses they are symmetric, no significant petechiae or telangiectasia. No splinter hemorrhages were noted. The left lower extremity has no acute difficulties. The right lower extremity shows evidence of some significant swelling to the foot ankle and distal leg. There some mild erythema to the tissue. It is distinctly tender for any attempts of range of motion to the ankle is however most severe and intense for inversion and eversion of the ankle, flexion is also very painful. The greatest area of tenderness that can be palpated is anteriorly to the lateral aspect of the ankle joint, effusion is not palpable the generalized edema is noted Neuro: Awake alert is able to converse with the observer, does not appear to have acute new gross focal sensory motor deficits. Results CBC & Chem 7: 03/03/18 07:57 03/03/18 07:57 Labs: Abnormal Lab Results - Last 24 Hours (Table) 03/03/18 03/03/18 Range/Units 07:57 07:57 Hgb 9.8 L (11.4-16.0) gm/dL Hct 33.5 L (34.0-46.0) % MCV 77.1 L (80.0-100.0) fL MCH 22.5 L (25.0-35.0) pg MCHC 29.2 L (31.0-37.0) g/dL RDW 20.0 H (11.5-15.5) % Plt Count 451 H (150-450) k/uL Chloride 111 H (98-107) mmol/L Carbon Dioxide 20 L (22-30) mmol/L Creatinine 0.49 L (0.52-1.04) mg/dL Calcium 8.2 L (8.4-10.2) mg/dL Albumin 2.8 L (3.5-5.0) g/dL Microbiology - Last 24 Hours (Table) 03/02/18 14:25 Blood Culture Gram Stain - Preliminary Blood 03/02/18 14:25 Blood Culture - Final Blood Laboratory Results WBC 9.4 k/uL (3.8-10.6) 03/03/18 07:57 RBC 4.35 m/uL (3.80-5.40) 03/03/18 07:57 Hgb 9.8 gm/dL (11.4-16.0) L 03/03/18 07:57 Hct 33.5 % (34.0-46.0) L 03/03/18 07:57 MCV 77.1 fL (80.0-100.0) L 03/03/18 07:57 MCH 22.5 pg (25.0-35.0) L 03/03/18 07:57 MCHC 29.2 g/dL (31.0-37.0) L 03/03/18 07:57 RDW 20.0 % (11.5-15.5) H 03/03/18 07:57 Plt Count 451 k/uL (150-450) H 03/03/18 07:57 Neutrophils % 73 % 03/03/18 07:57 Lymphocytes % 16 % 03/03/18 07:57 Monocytes % 6 % 03/03/18 07:57 Eosinophils % 3 % 03/03/18 07:57 Basophils % 1 % 03/03/18 07:57 Neutrophils # 6.9 k/uL (1.3-7.7) 03/03/18 07:57 Lymphocytes # 1.5 k/uL (1.0-4.8) 03/03/18 07:57 Monocytes # 0.6 k/uL (0-1.0) 03/03/18 07:57 Eosinophils # 0.3 k/uL (0-0.7) 03/03/18 07:57 Basophils # 0.1 k/uL (0-0.2) 03/03/18 07:57 Manual Slide Review Performed 03/03/18 07:57 Hypochromasia Marked 03/03/18 07:57 Poikilocytosis Slight 03/03/18 07:57 Anisocytosis Slight 03/03/18 07:57 Microcytosis Moderate 03/03/18 07:57 Target Cells Present 03/03/18 07:57 PT 21.4 sec (9.0-12.0) H 03/02/18 14:25 INR 2.4 (<1.2) H 03/02/18 14:25 APTT 35.2 sec (22.0-30.0) H 03/02/18 14:25 Sodium 141 mmol/L (137-145) 03/03/18 07:57 Potassium 4.6 mmol/L (3.5-5.1) 03/03/18 07:57 Chloride 111 mmol/L (98-107) H 03/03/18 07:57 Carbon Dioxide 20 mmol/L (22-30) L 03/03/18 07:57 Anion Gap 10 mmol/L 03/03/18 07:57 BUN 7 mg/dL (7-17) 03/03/18 07:57 Creatinine 0.49 mg/dL (0.52-1.04) L 03/03/18 07:57 Est GFR (CKD-EPI)AfAm >90 (>60 ml/min/1.73 sqM) 03/03/18 07:57 Est GFR (CKD-EPI)NonAf >90 (>60 ml/min/1.73 sqM) 03/03/18 07:57 Glucose 78 mg/dL (74-99) 03/03/18 07:57 Plasma Lactic Acid Santino 1.1 mmol/L (0.7-2.0) 03/02/18 14:25 Calcium 8.2 mg/dL (8.4-10.2) L 03/03/18 07:57 Phosphorus 4.3 mg/dL (2.5-4.5) 03/03/18 07:57 Magnesium 1.8 mg/dL (1.6-2.3) 03/03/18 07:57 Total Bilirubin 0.3 mg/dL (0.2-1.3) 03/03/18 07:57 AST 20 U/L (14-36) 03/03/18 07:57 ALT 23 U/L (9-52) 03/03/18 07:57 Alkaline Phosphatase 91 U/L (38-126) 03/03/18 07:57 C-Reactive Protein 75.0 mg/L (<10.0) H 03/02/18 14:25 Total Protein 6.4 g/dL (6.3-8.2) 03/03/18 07:57 Albumin 2.8 g/dL (3.5-5.0) L 03/03/18 07:57 Microbiology 03/02/18 14:25 Blood Blood Culture Gram Stain - Preliminary 03/02/18 14:25 Blood Blood Culture - Final Assessment and Plan (1) Bacteremia due to Enterococcus Narrative/Plan: 52-year-old woman who has an extensive past medical history related to Marfan's disease and her many medical difficulties include Aortic valve replacement. Presented hospital with a severe pain to the right ankle making it difficult to attempt to ambulate at all. She has been thought of evidence of significant pain and swelling in this area. There is a leukocytosis that is occurring and now there is a positive blood culture. Laboratories calling this preliminarily a group D enterococcus. It is present now and multiple blood cultures. The patient appears to have a septic arthritis of the right ankle and I have requested through the primary care service that a orthopedic consult be obtained for aspiration of this area. Antibiotic therapy with vancomycin as initiated given her penicillin ALLERGY. Levaquin can be discontinued at this time since there is no evidence of a gram- negative infection, she is on Coumadin is also ideal to avoid the drug interaction. Follow blood cultures have been requested for tomorrow Echocardiogram was been requested to further evaluate the aortic valve since there is evidence of multiple positive blood cultures The patient relates that she's had no trauma to the right ankle before the start of this pain and swelling, she does not recall any trip or twisting of the ankle. She's had no recent interventions to that ankle. Duplexes performed with no evidence of any deep venous thrombosis to the right lower extremity. Current Visit: Yes Status: Acute Code(s): R78.81 - BACTEREMIA; B95.2 - ENTEROCOCCUS THE CAUSE OF DISEASES CLASSIFIED ELSEWHERE SNOMED Code(s): 407058829279 (2) Right ankle pain Current Visit: Yes Status: Acute Code(s): M25.571 - PAIN IN RIGHT ANKLE AND JOINTS OF RIGHT FOOT SNOMED Code(s): 554311137 (3) Cellulitis of right foot Current Visit: Yes Status: Acute Code(s): L03.115 - CELLULITIS OF RIGHT LOWER LIMB SNOMED Code(s): 397249588 (4) Septic arthritis of right ankle Current Visit: Yes Status: Acute Code(s): M00.9 - PYOGENIC ARTHRITIS, UNSPECIFIED SNOMED Code(s): 37531463
--- NOTE | 2018-03-03 17:41 | P.CNOR ---
History of Present Illness - HPI Consult date: 03/03/18 History of present illness: This is a 32-year-old female with a past medical history significant for Marfan syndrome, hepatitis C, aortic valve replacement, history of MRSA and other medical issues. Orthopedics is consulted due to concern for septic arthritis of the right ankle. Patient states that she developed ankle pain on Monday, , and was treated as an outpatient in the emergency room on Monday, . Patient states that her symptoms of pain and swelling worsened so she went to the ER again and was admitted for IV antibiotics. Patient denies any injury, IV drug use or any known cause of ankle swelling. Patient is requesting pain medication. Patient denies any fever/chills, numbness, weakness, tingling, shortness of breath or chest pain. Review of Systems See HPI. Past Medical History Past Medical History: Heart Failure, CVA/TIA, Neurologic Disorder, Osteoarthritis (OA), Pneumonia Additional Past Medical History / Comment(s): Stroke with residual right-sided weakness 2017, marfan's syndrome, ArnoldChiari malformation, spontaneous pneumothorax x 21, scoliosis and pectus excavatum secondary to Marfan's, chronic back pain, bilateral leg pain, sinus infections, STATED HAS POOR CIRCULATION, viral meningitis, HEP C. History of Any Multi-Drug Resistant Organisms: MRSA Year Discovered:: 05/05/2010 MDRO Source:: back per patient Past Surgical History: Cardiac Valve Replacement, Coronary Bypass/CABG, Joint Replacement Additional Past Surgical History / Comment(s): right foot corrective surgery, R shoulder surgery following injury, CABG x4 vessel, aortic root graft, aortic valve replaced as child (2 separate surgeries last 10 years old), tiffani lens removed. spleenectomy 2018 Past Anesthesia/Blood Transfusion Reactions: No Reported Reaction Past Psychological History: Anxiety Additional Psychological History / Comment(s): . Smoking Status: Current every day smoker Past Alcohol Use History: None Reported Additional Past Alcohol Use History / Comment(s): Patient is smoker of one pack per day since she was 10 years of age. She denies any medical marijuana, marijuana, street drug or alcohol use. Patient is currently on disability. She recently obtained a public guardian and is living in a [facility]. 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 denies etoh or drug use and UDS negative - Past Family History Father Additional Family Medical History / Comment(s): Father is with history of AIDS. Mother Family Medical History: Diabetes Mellitus Additional Family Medical History / Comment(s): Mother at age 49 from liver cirrhosis secondary to alcohol abuse. Brother(s) Additional Family Medical History / Comment(s): Patient has one brother with no major medical problems. Patient does not have any sisters. Patient does not have any children. Medications and Allergies Home Medications Medication Instructions Recorded Confirmed Type Albuterol Inhaler [Ventolin Hfa 2 puff INHALATION RT-Q8H PRN 11/01/17 03/02/18 History Inhaler] Ferrous Sulfate [Feosol] 325 mg PO HS@2100 11/01/17 03/02/18 History DULoxetine HCL [Cymbalta] 60 mg PO DAILY capsule. 11/10/17 03/02/18 Rx Gabapentin [Neurontin] 100 mg PO TID cap 11/10/17 03/02/18 Rx Ipratropium-Albuterol Nebulize 3 ml INHALATION RT-TID ampul.neb 11/10/17 Rx [Duoneb 0.5 mg-3 mg/3 ml Soln] OLANZapine [ZyPREXA] 10 mg PO HS tab 11/10/17 03/02/18 Rx Pantoprazole [Protonix] 40 mg PO AC-BRKFST tablet. 11/10/17 02/28/18 Rx Warfarin [Coumadin] 5 mg PO DAILY #10 tab 11/10/17 03/02/18 Rx Sennosides [Senokot] 8.6 mg PO DAILY PRN 02/14/18 03/02/18 History Allergies Allergy/AdvReac Type Severity Reaction Status Date / Time chlordiazepoxide HCl Allergy Unknown Verified 03/02/18 13:11 [From Librium] Penicillins Allergy Rash/Hives Verified 03/02/18 13:11 prochlorperazine edisylate Allergy PANIC Verified 03/02/18 13:11 [From Compazine] ATTACK prochlorperazine maleate Allergy PANIC Verified 03/02/18 13:11 [From Compazine] ATTACK ketorolac [From Toradol] AdvReac Verified 03/02/18 14:45 Physical Examination On exam patient is well-appearing and lying in bed in no acute distress. Patient is alert and oriented 3. There is swelling over the right ankle and foot. 2+ pitting edema. The right ankle and foot are tender to palpation. There is faint erythema to the lateral aspect of the right ankle. There is no fluctuance. Patient has pain with active and passive range of motion of the right ankle. Dorsalis pedis pulses are 2+ bilaterally. There are 2 small scabs on the dorsal aspects of bilateral feet, otherwise skin is intact. Calf is soft and nontender to palpation. Sensation intact. Capillary refill is normal at less than 2 seconds. Neurovascular status and circulatory status are intact. Results X-rays of the right foot and ankle are negative for any fracture or dislocation. Hardware of right great toe appears intact. - Labs Labs: Abnormal Lab Results - Last 24 Hours (Table) 03/03/18 03/03/18 Range/Units 07:57 07:57 Hgb 9.8 L (11.4-16.0) gm/dL Hct 33.5 L (34.0-46.0) % MCV 77.1 L (80.0-100.0) fL MCH 22.5 L (25.0-35.0) pg MCHC 29.2 L (31.0-37.0) g/dL RDW 20.0 H (11.5-15.5) % Plt Count 451 H (150-450) k/uL Chloride 111 H (98-107) mmol/L Carbon Dioxide 20 L (22-30) mmol/L Creatinine 0.49 L (0.52-1.04) mg/dL Calcium 8.2 L (8.4-10.2) mg/dL Albumin 2.8 L (3.5-5.0) g/dL Microbiology - Last 24 Hours (Table) 03/02/18 14:25 Blood Culture Gram Stain - Preliminary Blood 03/02/18 14:25 Blood Culture - Final Blood H & H 03/02/18 03/03/18 Range/Units 14:25 07:57 Hgb 11.2 L 9.8 L (11.4-16.0) gm/dL Hct 38.0 33.5 L (34.0-46.0) % Coagulation 03/02/18 Range/Units 14:25 INR 2.4 H (<1.2) Result Diagrams: 03/03/18 07:57 03/03/18 07:57 Assessment and Plan (1) Bacteremia due to Enterococcus Current Visit: Yes Status: Acute Code(s): R78.81 - BACTEREMIA; B95.2 - ENTEROCOCCUS THE CAUSE OF DISEASES CLASSIFIED ELSEWHERE SNOMED Code(s): 632475776446 (2) Cellulitis of right foot Current Visit: Yes Status: Acute Code(s): L03.115 - CELLULITIS OF RIGHT LOWER LIMB SNOMED Code(s): 896060020 (3) Positive blood culture Current Visit: Yes Status: Acute Code(s): R78.81 - BACTEREMIA SNOMED Code( s): 677240070 (4) Right ankle pain Current Visit: Yes Status: Acute Code(s): M25.571 - PAIN IN RIGHT ANKLE AND JOINTS OF RIGHT FOOT SNOMED Code(s): 737664309 Plan: 1. Continue IV antibiotics per infectious disease. 2. Recommend rest and elevation. 3. Patient is well-appearing, afebrile and has a normal white count today. 4. No surgical intervention planned at this time. We will continue to follow the patient closely.
[2018-03-03] MEDS: WARFARIN 5 MG TAB PO SCH (17:49)
[2018-03-03] MEDS: FERROUS SULFATE 325 MG TAB PO SCH (20:40)
[2018-03-03] MEDS: OLANZapine 10 MG TAB PO SCH (20:41)
[2018-03-03] MEDS: HYDROcodone/APAP 5-325MG 1 EACH TAB PO PRN (20:44)
[2018-03-03] MEDS ORDERED: VANCOMYCIN TROUGH DUE 1 EACH MISC MISCELLANE ONE (23:00)
[2018-03-04] MEDS: VANCOMYCIN 1,000 MG in SODIUM CHLORIDE 0.9% 250 ML IVPB SCH ×4 (00:42→17:13)
[2018-03-04] MEDS: SODIUM CHLORIDE 0.9% 1,000 ML IV SCH ×2 (05:29→16:14)
[2018-03-04] MEDS: IPRATROPIUM-ALBUTEROL 3 ML NEB INHALATION SCH ×3 (07:50→19:36)
[2018-03-04] MEDS: GABAPENTIN 100 MG CAP PO SCH ×3 (08:25→21:14)
[2018-03-04] MEDS: PANTOPRAZOLE 40 MG TABLET PO SCH (08:25)
[2018-03-04] MEDS: DULoxetine HCL 60 MG CAPSULE.DR PO SCH (08:25)
[2018-03-04] MEDS: HYDROcodone/APAP 5-325MG 1 EACH TAB PO PRN ×3 (09:18→21:14)
[2018-03-04 09:45] LABS: Anisocytosis Slight; Basophils # (A) 0.1 k/uL (0-0.2); Basophils % (A) 1 %; Eosinophils # (A) 0.3 k/uL (0-0.7); Eosinophils % (A) 3 %; HCT 36.5 % (34.0-46.0); HGB 10.3 gm/dL (11.4-16.0); Hypochromasia Marked; Lymphocytes # (A) 1.9 k/uL (1.0-4.8); Lymphocytes % (A) 18 %; MCH 22.2 pg (25.0-35.0); MCHC 28.2 g/dL (31.0-37.0); MCV 78.9 fL (80.0-100.0); Mean Platelet Volume 6.8; Microcytosis Slight; Monocytes # (A) 0.6 k/uL (0-1.0); Monocytes % (A) 6 %; Neutrophils # (A) 7.3 k/uL (1.3-7.7); Neutrophils % (A) 70 %; Platelet Count 559 k/uL (150-450); Poikilocytosis Slight; RBC 4.63 m/uL (3.80-5.40); RDW 19.7 % (11.5-15.5); WBC 10.3 k/uL (3.8-10.6)
[2018-03-04 09:49] LABS: INR 3.2 (<1.2); Prothrombin Time 29.1 sec (9.0-12.0)
[2018-03-04 09:56] LABS: ALT 17 U/L (9-52); AST 19 U/L (14-36); Alkaline Phosphatase 91 U/L (38-126); Anion Gap 9 mmol/L; Blood Urea Nitrogen 4 mg/dL (7-17); Calcium 8.4 mg/dL (8.4-10.2); Carbon Dioxide 24 mmol/L (22-30); Chloride 109 mmol/L (98-107); Glucose 75 mg/dL (74-99); Magnesium 1.7 mg/dL (1.6-2.3); Phosphorus 4.3 mg/dL (2.5-4.5); Potassium 4.4 mmol/L (3.5-5.1); Sodium 142 mmol/L (137-145); Total Bilirubin 0.3 mg/dL (0.2-1.3); Total Protein 6.7 g/dL (6.3-8.2)
--- NOTE | 2018-03-04 11:59 | P.PN ---
Subjective Progress Note Date: 03/04/18 This is a 32-year-old female who was admitted for right ankle swelling and positive blood cultures. Today, patient states that her pain has not improved. Patient states that she does not want to keep the right ankle elevated because it hurts. Patient denies any new symptoms or new complaints today. Patient denies any fever/chills, numbness, weakness, tingling, abdominal pain, shortness of breath or chest pain. Objective - Vital Signs Vital signs: Vital Signs Temp 97.7 F 03/04/18 06:32 Pulse 63 03/04/18 06:32 Resp 16 03/04/18 06:32 BP 111/59 03/04/18 06:32 Pulse Ox 92 L 03/04/18 06:32 Intake & Output 03/03/18 03/04/18 03/04/18 18:59 06:59 18:59 Weight 57.606 kg 57.606 kg Other: # Voids 2 1 - Exam On exam patient is alert and oriented 3 and lying in bed in acute distress. There is 2+ pitting edema to the right ankle and foot. There is minimal erythema. Patient has limited range of motion of the right ankle due to pain. Sensation intact. Dorsalis pedis pulses 2+. Neurovascular status and circulatory status are intact. - Labs CBC & Chem 7: 03/03/18 07:57 03/03/18 07:57 Labs: Abnormal Lab Results - Last 24 Hours (Table) 03/03/18 03/03/18 Range/Units 07:57 07:57 Hgb 9.8 L (11.4-16.0) gm/dL Hct 33.5 L (34.0-46.0) % MCV 77.1 L (80.0-100.0) fL MCH 22.5 L (25.0-35.0) pg MCHC 29.2 L (31.0-37.0) g/dL RDW 20.0 H (11.5-15.5) % Plt Count 451 H (150-450) k/uL Chloride 111 H (98-107) mmol/L Carbon Dioxide 20 L (22-30) mmol/L Creatinine 0.49 L (0.52-1.04) mg/dL Calcium 8.2 L (8.4-10.2) mg/dL Albumin 2.8 L (3.5-5.0) g/dL Microbiology - Last 24 Hours (Table) 03/02/18 14:25 Blood Culture Gram Stain - Preliminary Blood Blood Culture - Preliminary Group D Enterococcus 03/02/18 14:25 Blood Culture - Final Blood Assessment and Plan (1) Bacteremia due to Enterococcus Current Visit: Yes Status: Acute Code(s): R78.81 - BACTEREMIA; B95.2 - ENTEROCOCCUS THE CAUSE OF DISEASES CLASSIFIED ELSEWHERE SNOMED Code(s): 385633316316 (2) Cellulitis of right foot Current Visit: Yes Status: Acute Code(s): L03.115 - CELLULITIS OF RIGHT LOWER LIMB SNOMED Code(s): 256248134 (3) Positive blood culture Current Visit: Yes Status: Acute Code(s): R78.81 - BACTEREMIA SNOMED Code( s): 537888353 (4) Right ankle pain Current Visit: Yes Status: Acute Code(s): M25.571 - PAIN IN RIGHT ANKLE AND JOINTS OF RIGHT FOOT SNOMED Code(s): 565042306 Plan: 1. Continue IV antibiotics per infectious disease. 2. Recommend rest and elevation. 3. No surgical intervention planned at this time. We will continue to follow the patient closely.
--- NOTE | 2018-03-04 13:35 | P.PN ---
Subjective Progress Note Date: 03/04/18 Principal diagnosis: Right leg/foot pain and swelling Still having significant pain and swelling in the right ankle. Objective - Vital Signs Vital signs: Vital Signs Temp 97.7 F 03/04/18 06:32 Pulse 63 03/04/18 06:32 Resp 16 03/04/18 06:32 BP 111/59 03/04/18 06:32 Pulse Ox 92 L 03/04/18 06:32 Intake & Output 03/03/18 03/04/18 03/04/18 18:59 06:59 18:59 Weight 57.606 kg 57.606 kg Other: # Voids 2 1 - Exam Constitutional: No acute distress, conversant, pleasant Eyes:Anicteric sclerae, moist conjunctiva, no lid-lag, PERRLA, ENMT: Oropharynx clear, no erythema, exudates Neck: Supple, FROM, no masses, or JVD, No carotid bruits, No thyromegaly Lungs: Clear to auscultation, Clear to percussion, Normal respiratory effort, no accessory muscle use Cardiovascular: Mechanical heart sounds, S1-S2, regular rate and rhythm, No murmurs, gallops, or rubs, No peripheral edema Abdominal: Soft, Nontender, no guarding, rebound or rigidity, Normoactive bowel sounds, No hepatomegaly, No splenomegaly, No palpable mass Skin: Severe erythema and tenderness to touch Normal temperature, tone, texture , turgor, no induration, No subcutaneous nodules, No rash, lesions, No ulcers Extremities: Right ankle swelling, limited range of motion, No digital cyanosis , No clubbing, Pedal pulses intact and symmetrical, Radial pulses intact and symmetrical, No calf tenderness Psychiatric: Alert and oriented to person, place and time, appropriate affect, intact judgement Neuro: Muscles Strength 5/5 in all 4 extremities, Sensation to light touch grossly present throughout, Cranial nerves II-XII grossly intact, no focal sensory deficits - Labs CBC & Chem 7: 03/04/18 09:16 03/04/18 09:16 Labs: Abnormal Lab Results - Last 24 Hours (Table) 03/04/18 03/04/18 03/04/18 Range/Units 09:16 09:16 09:16 Hgb 10.3 L (11.4-16.0) gm/dL MCV 78.9 L (80.0-100.0) fL MCH 22.2 L (25.0-35.0) pg MCHC 28.2 L (31.0-37.0) g/dL RDW 19.7 H (11.5-15.5) % Plt Count 559 H (150-450) k/uL PT 29.1 H (9.0-12.0) sec INR 3.2 H (<1.2) Chloride 109 H (98-107) mmol/L BUN 4 L (7-17) mg/dL Creatinine 0.48 L (0.52-1.04) mg/dL Albumin 3.0 L (3.5-5.0) g/dL Microbiology - Last 24 Hours (Table) 03/02/18 14:25 Blood Culture Gram Stain - Preliminary Blood Blood Culture - Preliminary Group D Enterococcus 03/02/18 14:25 Blood Culture - Final Blood Assessment and Plan Plan: Gram-positive bacteremia Source likely from the septic arthritis and possible cellulitis involving the right ankle and foot respectively Repeat blood cultures obtained in the emergency department--still positive, will update ID ID consult--recommend arthrocentesis of the right ankle, communicated that with Quintin boswell for ortho. Doppler ultrasound negative for DVT in the RLE. Continue Levaquin and vancomycin per pharmacy Chronic problems History of congestive heart Failure, status post mechanical valve replacement, Osteoarthritis (OA), Pneumonia, Stroke with residual right-sided weakness 2016, marfan's syndrome, ArnoldChiari malformation, spontaneous pneumothorax x 21, scoliosis and pectus excavatum secondary to Marfan's, chronic back pain, chronic bilateral leg pain, HEP C. History of MRSA: Resume home meds DVT prophylaxis Already on Coumadin, continue
--- NOTE | 2018-03-04 15:16 | P.PN ---
Subjective Progress Note Date: 03/04/18 This is a 32-year-old female with significant past health history of Marfan syndrome, multiple aortic valve replacement starting on chronic Coumadin , history of hepatitis C. Patient presented to [facility] emergency center on November 02 with complaints of abdominal pain. Her INR was at 9. 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 She was initially admitted into intensive care. Patient subsequently developed lethargy and due to concern for active splenic hemorrhage she was given additional vitamin K and fresh frozen plasma and on the morning of November 03 she developed worsening abdominal pain and her hemoglobin had dropped down to 5.9 and INR was 1.9. She got underwent a repeat CT of the abdomen and pelvis showing worsening enlargement of the spleen and hemoperitoneum. Patient was taken to the OR emergently by Dr. Centeno and performed an open splenectomy. Patient returned to the ICU intubated and was subsequently extubated and transferred to the selective care unit. During that stay infectious diseases was consulted with concerns to D enterococcus bacteremia was found in the blood culture. Laboratory corrected this to be aerococcous which was a contamination requiring no further antibiotic intervention. At that time the patient was not having fevers chills or leukocytosis. She eventually was discharged from hospital. She's now presenting from home with a several-day history of much pain to her right foot and ankle. Such that she is not able to bear weight on it. Moving the foot itself causes severe pain. She cries out in pain if it is manipulated. She does have the many medical troubles that includes her Marfan's disease and underlying psychiatric disorder, however appears to have an acute illness at this point in time. 03/04/2018 patient continues to complain of significant pain to the right foot and ankle radiating to the calf area. She has severe pain with any attempts to ambulation. She is denying fevers or chills or appetite is adequate denies other new acute symptoms Objective - Vital Signs Vital signs: Vital Signs Temp 96.7 F L 03/04/18 15:00 Pulse 75 03/04/18 15:00 Resp 16 03/04/18 15:00 BP 108/56 03/04/18 15:00 Pulse Ox 90 L 03/04/18 15:00 Intake & Output 03/03/18 03/04/18 03/04/18 18:59 06:59 18:59 Intake Total 1050 Balance 1050 Weight 57.606 kg 57.606 kg Intake: IV 1050 Sodium Chloride 0.9% 1, 800 000 ml @ 100 mls/hr IV . Q10H [facility] Rx#:[id number] Vancomycin 1,000 mg In 250 Sodium Chloride 0.9% 250 ml @ 125 mls/hr IVPB Q8H [facility] Rx#:[id number] Other: # Voids 2 1 - Exam 32-year-old woman who is supine in bed resting, when aroused complains of significant pain to her right ankle. Denies current chills. HEENT: Anicteric conjunctiva are pink and moist nasal mucosa grossly intact without significant lesions, there is no thrush. She has very poor vision with highly corrective glasses Neck: The neck is supple without significant lymphadenopathy or thyromegaly. Lungs: Good bilateral air entry without significant crackles or wheezing. There is no significant bronchial sounds. There is no egophony or dullness. Heart: Regular with no audible S1 and S2 the loud click of the aortic valve prosthesis is easily heard, no murmur is noted. Abdomen: Positive bowel sounds soft and nontender without palpable masses or organomegaly. There was no guarding or rebound. Extremities: The upper extremities have excellent pulses they are symmetric, no significant petechiae or telangiectasia. No splinter hemorrhages were noted. The left lower extremity has no acute difficulties. The right lower extremity shows evidence of some significant swelling to the foot ankle and distal leg. There some mild erythema to the tissue. It is distinctly tender for any attempts of range of motion to the ankle is however most severe and intense for inversion and eversion of the ankle, flexion is also very painful. The greatest area of tenderness that can be palpated is anteriorly to the lateral aspect of the ankle joint, effusion is not palpable the generalized edema is noted Neuro: Awake alert is able to converse with the observer, does not appear to have acute new gross focal sensory motor deficits. - Labs CBC & Chem 7: 03/04/18 09:16 03/04/18 09:16 Labs: Abnormal Lab Results - Last 24 Hours (Table) 03/04/18 03/04/18 03/04/18 Range/Units 09:16 09:16 09:16 Hgb 10.3 L (11.4-16.0) gm/dL MCV 78.9 L (80.0-100.0) fL MCH 22.2 L (25.0-35.0) pg MCHC 28.2 L (31.0-37.0) g/dL RDW 19.7 H (11.5-15.5) % Plt Count 559 H (150-450) k/uL PT 29.1 H (9.0-12.0) sec INR 3.2 H (<1.2) Chloride 109 H (98-107) mmol/L BUN 4 L (7-17) mg/dL Creatinine 0.48 L (0.52-1.04) mg/dL Albumin 3.0 L (3.5-5.0) g/dL Microbiology - Last 24 Hours (Table) 03/02/18 14:25 Blood Culture Gram Stain - Preliminary Blood Blood Culture - Preliminary Group D Enterococcus 03/02/18 14:25 Blood Culture - Final Blood Laboratory Results WBC 10.3 k/uL (3.8-10.6) 03/04/18 09:16 RBC 4.63 m/uL (3.80-5.40) 03/04/18 09:16 Hgb 10.3 gm/dL (11.4-16.0) L 03/04/18 09:16 Hct 36.5 % (34.0-46.0) 03/04/18 09:16 MCV 78.9 fL (80.0-100.0) L 03/04/18 09:16 MCH 22.2 pg (25.0-35.0) L 03/04/18 09:16 MCHC 28.2 g/dL (31.0-37.0) L 03/04/18 09:16 RDW 19.7 % (11.5-15.5) H 03/04/18 09:16 Plt Count 559 k/uL (150-450) H 03/04/18 09:16 Neutrophils % 70 % 03/04/18 09:16 Lymphocytes % 18 % 03/04/18 09:16 Monocytes % 6 % 03/04/18 09:16 Eosinophils % 3 % 03/04/18 09:16 Basophils % 1 % 03/04/18 09:16 Neutrophils # 7.3 k/uL (1.3-7.7) 03/04/18 09:16 Lymphocytes # 1.9 k/uL (1.0-4.8) 03/04/18 09:16 Monocytes # 0.6 k/uL (0-1.0) 03/04/18 09:16 Eosinophils # 0.3 k/uL (0-0.7) 03/04/18 09:16 Basophils # 0.1 k/uL (0-0.2) 03/04/18 09:16 Manual Slide Review Performed 03/03/18 07:57 Hypochromasia Marked 03/04/18 09:16 Poikilocytosis Slight 03/04/18 09:16 Anisocytosis Slight 03/04/18 09:16 Microcytosis Slight 03/04/18 09:16 Target Cells Present 03/03/18 07:57 PT 29.1 sec (9.0-12.0) H 03/04/18 09:16 INR 3.2 (<1.2) H 03/04/18 09:16 APTT 35.2 sec (22.0-30.0) H 03/02/18 14:25 Sodium 142 mmol/L (137-145) 03/04/18 09:16 Potassium 4.4 mmol/L (3.5-5.1) 03/04/18 09:16 Chloride 109 mmol/L (98-107) H 03/04/18 09:16 Carbon Dioxide 24 mmol/L (22-30) 03/04/18 09:16 Anion Gap 9 mmol/L 03/04/18 09:16 BUN 4 mg/dL (7-17) L 03/04/18 09:16 Creatinine 0.48 mg/dL (0.52-1.04) L 03/04/18 09:16 Est GFR (CKD-EPI)AfAm >90 (>60 ml/min/1.73 sqM) 03/04/18 09:16 Est GFR (CKD-EPI)NonAf >90 (>60 ml/min/1.73 sqM) 03/04/18 09:16 Glucose 75 mg/dL (74-99) 03/04/18 09:16 Plasma Lactic Acid Santino 1.1 mmol/L (0.7-2.0) 03/02/18 14:25 Calcium 8.4 mg/dL (8.4-10.2) 03/04/18 09:16 Phosphorus 4.3 mg/dL (2.5-4.5) 03/04/18 09:16 Magnesium 1.7 mg/dL (1.6-2.3) 03/04/18 09:16 Total Bilirubin 0.3 mg/dL (0.2-1.3) 03/04/18 09:16 AST 19 U/L (14-36) 03/04/18 09:16 ALT 17 U/L (9-52) 03/04/18 09:16 Alkaline Phosphatase 91 U/L (38-126) 03/04/18 09:16 C-Reactive Protein 75.0 mg/L (<10.0) H 03/02/18 14:25 Total Protein 6.7 g/dL (6.3-8.2) 03/04/18 09:16 Albumin 3.0 g/dL (3.5-5.0) L 03/04/18 09:16 Vancomycin Trough 20.5 ug/mL 03/03/18 23:10 Microbiology 03/02/18 14:25 Blood Blood Culture Gram Stain - Preliminary 03/02/18 14:25 Blood Blood Culture - Preliminary Group D Enterococcus 03/02/18 14:25 Blood Blood Culture - Final Assessment and Plan (1) Bacteremia due to Enterococcus Narrative/Plan: 52-year-old woman who has an extensive past medical history related to Marfan's disease and her many medical difficulties include Aortic valve replacement. Presented hospital with a severe pain to the right ankle making it difficult to attempt to ambulate at all. She has been thought of evidence of significant pain and swelling in this area. There is a leukocytosis that is occurring and now there is a positive blood culture. Laboratories calling this preliminarily a group D enterococcus. It is present now and multiple blood cultures. The patient appears to have a septic arthritis of the right ankle and I have requested through the primary care service that a orthopedic consult be obtained for aspiration of this area. Antibiotic therapy with vancomycin as initiated given her penicillin ALLERGY. Levaquin can be discontinued at this time since there is no evidence of a gram- negative infection, she is on Coumadin is also ideal to avoid the drug interaction. Follow blood cultures have been requested for tomorrow Echocardiogram was been requested to further evaluate the aortic valve since there is evidence of multiple positive blood cultures The patient relates that she's had no trauma to the right ankle before the start of this pain and swelling, she does not recall any trip or twisting of the ankle. She's had no recent interventions to that ankle. Duplexes performed with no evidence of any deep venous thrombosis to the right lower extremity. 03/04/2018 echocardiogram results are pending at this time. She does have a prosthetic aortic valve. We are waiting for data about this valve to make sure she can undergo an MRI of the ankle to further characterize this appears to be acute septic arthritis. Depending on the MRI findings may further help orthopedics to determine if there can be aspiration of a septic arthritis. Group D enterococcus is being isolated in his noted yesterday's blood cultures were positive. The blood cultures from this morning are drawn and are pending. She likely will go home on intravenous antibiotic therapy. Currently vancomycin will be utilized maybe change depending on further factors. Once her bacteremia clears she'll need IV access and then a plan to receive the antibiotic therapy, unclear what setting that will be needed for this to occur. There is markedly elevated C-reactive protein which is due to the underlying bacteremia and likely septic arthritis. Current Visit: Yes Status: Acute Code(s): R78.81 - BACTEREMIA; B95.2 - ENTEROCOCCUS THE CAUSE OF DISEASES CLASSIFIED ELSEWHERE SNOMED Code(s): 982939637132 (2) Right ankle pain Current Visit: Yes Status: Acute Code(s): M25.571 - PAIN IN RIGHT ANKLE AND JOINTS OF RIGHT FOOT SNOMED Code(s): 174873867 (3) Cellulitis of right foot Current Visit: Yes Status: Acute Code(s): L03.115 - CELLULITIS OF RIGHT LOWER LIMB SNOMED Code(s): 314646098 (4) Septic arthritis of right ankle Current Visit: Yes Status: Acute Code(s): M00.9 - PYOGENIC ARTHRITIS, UNSPECIFIED SNOMED Code(s): 07853117
[2018-03-04] MEDS: MORPHINE SULFATE 2 MG/ML SYRINGE IV PRN ×2 (15:48→19:39)
[2018-03-04] MEDS: WARFARIN 5 MG TAB PO SCH (17:13)
[2018-03-04] MEDS: FERROUS SULFATE 325 MG TAB PO SCH (21:14)
[2018-03-04] MEDS: OLANZapine 10 MG TAB PO SCH (21:14)
[2018-03-05] MEDS: VANCOMYCIN 1,000 MG in SODIUM CHLORIDE 0.9% 250 ML IVPB SCH ×3 (01:50→18:08)
[2018-03-05] MEDS: MORPHINE SULFATE 2 MG/ML SYRINGE IV PRN ×5 (01:50→18:53)
[2018-03-05] MEDS: SODIUM CHLORIDE 0.9% 1,000 ML IV SCH ×2 (01:52→10:51)
[2018-03-05] MEDS: IPRATROPIUM-ALBUTEROL 3 ML NEB INHALATION SCH ×3 (07:52→18:57)
--- NOTE | 2018-03-05 08:04 | P.PN ---
Subjective Progress Note Date: 03/05/18 This is a 32-year-old female who was admitted for right ankle swelling and positive blood cultures. Patient reports improvement in ankle pain today. Patient denies any new symptoms or new complaints today. Patient denies any fever/chills, numbness, weakness, tingling, abdominal pain, shortness of breath or chest pain. Objective - Vital Signs Vital signs: Vital Signs Temp 98.5 F 03/05/18 06:15 Pulse 72 03/05/18 06:15 Resp 16 03/05/18 06:15 BP 122/64 03/05/18 06:15 Pulse Ox 93 L 03/05/18 06:15 Intake & Output 03/04/18 03/05/18 03/05/18 18:59 06:59 18:59 Intake Total 1050 Balance 1050 Intake: IV 1050 Sodium Chloride 0.9% 1, 800 000 ml @ 100 mls/hr IV . Q10H [facility] Rx#:[id number] Vancomycin 1,000 mg In 250 Sodium Chloride 0.9% 250 ml @ 125 mls/hr IVPB Q8H [facility] Rx#:[id number] Other: # Voids 2 # Bowel Movements 1 - Exam On exam patient is well-appearing. Patient is alert and oriented 3 and lying in bed in acute distress. There is swelling of the right ankle and foot, but this has improved since yesterdays exam. There is no erythema. No fluctuance. Patient has limited range of motion of the right ankle due to pain. Capillary refill is normal at less than 2 seconds. Sensation intact. Dorsalis pedis pulses 2+. Neurovascular status and circulatory status are intact. - Labs CBC & Chem 7: 03/04/18 09:16 03/04/18 09:16 Labs: Abnormal Lab Results - Last 24 Hours (Table) 03/04/18 03/04/18 03/04/18 Range/Units 09:16 09:16 09:16 Hgb 10.3 L (11.4-16.0) gm/dL MCV 78.9 L (80.0-100.0) fL MCH 22.2 L (25.0-35.0) pg MCHC 28.2 L (31.0-37.0) g/dL RDW 19.7 H (11.5-15.5) % Plt Count 559 H (150-450) k/uL PT 29.1 H (9.0-12.0) sec INR 3.2 H (<1.2) Chloride 109 H (98-107) mmol/L BUN 4 L (7-17) mg/dL Creatinine 0.48 L (0.52-1.04) mg/dL Albumin 3.0 L (3.5-5.0) g/dL Microbiology - Last 24 Hours (Table) 03/02/18 14:25 Blood Culture Gram Stain - Final Blood Blood Culture - Final Enterococcus faecalis Assessment and Plan (1) Bacteremia due to Enterococcus Current Visit: Yes Status: Acute Code(s): R78.81 - BACTEREMIA; B95.2 - ENTEROCOCCUS THE CAUSE OF DISEASES CLASSIFIED ELSEWHERE SNOMED Code(s): 570822758226 (2) Cellulitis of right foot Current Visit: Yes Status: Acute Code(s): L03.115 - CELLULITIS OF RIGHT LOWER LIMB SNOMED Code(s): 157773947 (3) Positive blood culture Current Visit: Yes Status: Acute Code(s): R78.81 - BACTEREMIA SNOMED Code( s): 695999972 (4) Right ankle pain Current Visit: Yes Status: Acute Code(s): M25.571 - PAIN IN RIGHT ANKLE AND JOINTS OF RIGHT FOOT SNOMED Code(s): 581803193 Plan: 1. Continue IV antibiotics per infectious disease. 2. Recommend rest and elevation. 3. Recommend MRI of the right ankle. Awaiting report regarding the patient's valve replacement to determine if she can have the MRI. 4. No surgical intervention planned at this time. We will continue to follow the patient closely.
[2018-03-05] MEDS: DULoxetine HCL 60 MG CAPSULE.DR PO SCH (08:23)
[2018-03-05] MEDS: PANTOPRAZOLE 40 MG TABLET PO SCH (08:23)
[2018-03-05] MEDS: GABAPENTIN 100 MG CAP PO SCH ×3 (08:23→20:50)
[2018-03-05] MEDS: HYDROcodone/APAP 5-325MG 1 EACH TAB PO PRN ×4 (08:27→20:51)
[2018-03-05 10:10] LABS: INR 3.5 (<1.2); Prothrombin Time 31.8 sec (9.0-12.0)
--- NOTE | 2018-03-05 12:50 | P.PN ---
Subjective Progress Note Date: 03/05/18 Principal diagnosis: Right leg/foot pain and swelling Patient doing okay, still having pain in the right ankle. Objective - Vital Signs Vital signs: Vital Signs Temp 98.5 F 03/05/18 06:15 Pulse 72 03/05/18 06:15 Resp 16 03/05/18 06:15 BP 122/64 03/05/18 06:15 Pulse Ox 93 L 03/05/18 06:15 Intake & Output 03/04/18 03/05/18 03/05/18 18:59 06:59 18:59 Intake Total 1050 Balance 1050 Intake: IV 1050 Sodium Chloride 0.9% 1, 800 000 ml @ 100 mls/hr IV . Q10H [facility] Rx#:[id number] Vancomycin 1,000 mg In 250 Sodium Chloride 0.9% 250 ml @ 125 mls/hr IVPB Q8H [facility] Rx#:[id number] Other: # Voids 2 # Bowel Movements 1 - Exam Constitutional: No acute distress, conversant, pleasant Eyes:Anicteric sclerae, moist conjunctiva, no lid-lag, PERRLA, ENMT: Oropharynx clear, no erythema, exudates Neck: Supple, FROM, no masses, or JVD, No carotid bruits, No thyromegaly Lungs: Clear to auscultation, Clear to percussion, Normal respiratory effort, no accessory muscle use Cardiovascular: Mechanical heart sounds, S1-S2, regular rate and rhythm, No murmurs, gallops, or rubs, No peripheral edema Abdominal: Soft, Nontender, no guarding, rebound or rigidity, Normoactive bowel sounds, No hepatomegaly, No splenomegaly, No palpable mass Skin: Severe erythema and tenderness to touch Normal temperature, tone, texture , turgor, no induration, No subcutaneous nodules, No rash, lesions, No ulcers Extremities: Right ankle swelling, limited range of motion, No digital cyanosis , No clubbing, Pedal pulses intact and symmetrical, Radial pulses intact and symmetrical, No calf tenderness Psychiatric: Alert and oriented to person, place and time, appropriate affect, intact judgement Neuro: Muscles Strength 5/5 in all 4 extremities, Sensation to light touch grossly present throughout, Cranial nerves II-XII grossly intact, no focal sensory deficits - Labs CBC & Chem 7: 03/04/18 09:16 03/04/18 09:16 Labs: Abnormal Lab Results - Last 24 Hours (Table) 03/05/18 Range/Units 09:51 PT 31.8 H (9.0-12.0) sec INR 3.5 H (<1.2) Microbiology - Last 24 Hours (Table) 03/04/18 09:30 Blood Culture - Preliminary Blood No Growth after 24 hours 03/04/18 09:16 Blood Culture - Preliminary Blood No Growth after 24 hours 03/02/18 14:25 Blood Culture Gram Stain - Final Blood Blood Culture - Final Enterococcus faecalis Assessment and Plan Plan: Gram-positive bacteremia, growing enterococcus in the blood. Source likely from the septic arthritis and possible cellulitis involving the right ankle and foot respectively Repeat blood cultures obtained on 03/04 morning, still negative Awaiting echocardiogram report, also patient is supposed to have an MRI of the right ankle if the mechanical valve is compatible with MRI. Doppler ultrasound negative for DVT in the RLE. Continue vancomycin per pharmacy, will discuss with ID switching to a narrower spectrum antibiotic as enterococcus is sensitive to penicillin. Chronic problems History of congestive heart Failure, status post mechanical valve replacement, Osteoarthritis (OA), Pneumonia, Stroke with residual right-sided weakness 2017, marfan's syndrome, ArnoldChiari malformation, spontaneous pneumothorax x 21, scoliosis and pectus excavatum secondary to Marfan's, chronic back pain, chronic bilateral leg pain, HEP C. History of MRSA: Resume home meds DVT prophylaxis Already on Coumadin, continue
[2018-03-05] MEDS: WARFARIN 5 MG TAB PO SCH (18:08)
--- NOTE | 2018-03-05 18:46 | ECHOF ---
Referral Reason:Endocarditis MEASUREMENTS -------- HEIGHT: 180.3 cm WEIGHT: 57.6 kg BP: 122/64 RVIDd: 4.9 cm (< 3.3) IVSd: 1.6 cm (0.6 - 1.1) LVIDd: 4.9 cm (3.9 - 5.3) LVPWd: 1.6 cm (0.6 - 1.1) IVSs: 2.3 cm LVIDs: 3.0 cm LVPWs: 2.1 cm LAESV Index (A-L): 40.91 ml/m MV EXCURSION: 16.659 mm (> 18.000) MV EF SLOPE: 78 mm/s (70 - 150) EPSS: 0.5 cm MV E Edward: 1.97 m/s MV DecT: 284 ms MV A Edward: 1.39 m/s MV E/A Ratio: 1.42 AV maxP.89 mmHg AV meanP.99 mmHg RAP: 5.00 mmHg RVSP: 38.90 mmHg FINDINGS -------- Sinus rhythm. This was a technically good study. The left ventricular size is normal. There is moderate concentric left ventricular hypertrophy. O verall left ventricular systolic function is normal with, an EF between 55 - 60 %. T The right ventricle is severely enlarged. LA is severely dilated >40 ml/m2 The right atrium is moderately enlarged. Peak/mean gradient across the Aortic Valve is 23.89mmHg / 13.99mmHg. Normally functioning mechanica l prosthetic valve. The mitral valve leaflets are mildly thickened. Mild mitral annular calcification present. Severe mitral regurgitation is present. Mild tricuspid regurgitation present. The right ventricular systolic pressure, as measured by Doppl er, is 38.90mmHg. Trace/mild (physiologic) pulmonic regurgitation. The aortic root size is normal. Normal inferior vena cava with normal inspiratory collapse consistent with estimated right atrial pre ssure of 5 mmHg. There is a trivial pericardial effusion present. CONCLUSIONS -------- 1. Sinus rhythm. 2. This was a technically good study. 3. The left ventricular size is normal. 4. There is moderate concentric left ventricular hypertrophy. 5. Overall left ventricular systolic function is normal with, an EF between 55 - 60 %. 6. T 7. The right ventricle is severely enlarged. 8. LA is severely dilated >40 ml/m2 9. The right atrium is moderately enlarged. 10. Peak/mean gradient across the Aortic Valve is 23.89mmHg / 13.99mmHg. 11. Normally functioning mechanical prosthetic valve. 12. The mitral valve leaflets are mildly thickened. 13. Mild mitral annular calcification present. 14. Severe mitral regurgitation is present. 15. Mild tricuspid regurgitation present. 16. The right ventricular systolic pressure, as measured by Doppler, is 38.90mmHg. 17. Trace/mild (physiologic) pulmonic regurgitation. 18. The aortic root size is normal. 19. Normal inferior vena cava with normal inspiratory collapse consistent with estimated right atrial pressure of 5 mmHg. 20. There is a trivial pericardial effusion present. [employer] MACHINE OPERATOR: Milagros Sanchez RDCS
[2018-03-05] MEDS: OLANZapine 10 MG TAB PO SCH (20:50)
[2018-03-05] MEDS: FERROUS SULFATE 325 MG TAB PO SCH (20:50)
[2018-03-06] MEDS: SODIUM CHLORIDE 0.9% 1,000 ML IV SCH ×3 (00:18→18:00)
[2018-03-06] MEDS: VANCOMYCIN 1,000 MG in SODIUM CHLORIDE 0.9% 250 ML IVPB SCH ×2 (03:22→09:15)
[2018-03-06] MEDS: MORPHINE SULFATE 2 MG/ML SYRINGE IV PRN ×3 (04:58→21:07)
[2018-03-06] MEDS: IPRATROPIUM-ALBUTEROL 3 ML NEB INHALATION SCH ×3 (07:42→19:53)
[2018-03-06] MEDS: DULoxetine HCL 60 MG CAPSULE.DR PO SCH (08:04)
[2018-03-06] MEDS: GABAPENTIN 100 MG CAP PO SCH ×3 (08:05→21:07)
[2018-03-06] MEDS: PANTOPRAZOLE 40 MG TABLET PO SCH (08:05)
[2018-03-06 08:41] LABS: INR 3.7 (<1.2); Prothrombin Time 33.1 sec (9.0-12.0)
[2018-03-06 08:55] LABS: Anion Gap 6 mmol/L; Blood Urea Nitrogen 6 mg/dL (7-17); Calcium 8.3 mg/dL (8.4-10.2); Carbon Dioxide 30 mmol/L (22-30); Chloride 106 mmol/L (98-107); Glucose 80 mg/dL (74-99); Potassium 4.4 mmol/L (3.5-5.1); Sodium 142 mmol/L (137-145)
[2018-03-06] MEDS ORDERED: VANCOMYCIN TROUGH DUE 1 EACH MISC MISCELLANE ONE (09:00)
[2018-03-06] MEDS: HYDROcodone/APAP 5-325MG 1 EACH TAB PO PRN ×3 (09:15→18:27)
--- NOTE | 2018-03-06 14:41 | P.PN ---
Subjective Progress Note Date: 03/06/18 Principal diagnosis: Right leg/foot pain and swelling Feeling the same still having pain in the right ankle. Objective - Vital Signs Vital signs: Vital Signs Temp 98.0 F 03/06/18 05:35 Pulse 70 03/06/18 05:35 Resp 16 03/06/18 05:35 BP 118/76 03/06/18 05:35 Pulse Ox 92 L 03/06/18 05:35 Intake & Output 03/05/18 03/06/18 03/06/18 18:59 06:59 18:59 Other: Voiding Method Bedside Commode # Voids 2 3 1 - Exam Constitutional: No acute distress, conversant, pleasant Eyes:Anicteric sclerae, moist conjunctiva, no lid-lag, PERRLA, ENMT: Oropharynx clear, no erythema, exudates Neck: Supple, FROM, no masses, or JVD, No carotid bruits, No thyromegaly Lungs: Clear to auscultation, Clear to percussion, Normal respiratory effort, no accessory muscle use Cardiovascular: Mechanical heart sounds, S1-S2, regular rate and rhythm, No murmurs, gallops, or rubs, No peripheral edema Abdominal: Soft, Nontender, no guarding, rebound or rigidity, Normoactive bowel sounds, No hepatomegaly, No splenomegaly, No palpable mass Skin: Severe erythema and tenderness to touch Normal temperature, tone, texture , turgor, no induration, No subcutaneous nodules, No rash, lesions, No ulcers Extremities: Right ankle swelling, limited range of motion, No digital cyanosis , No clubbing, Pedal pulses intact and symmetrical, Radial pulses intact and symmetrical, No calf tenderness Psychiatric: Alert and oriented to person, place and time, appropriate affect, intact judgement Neuro: Muscles Strength 5/5 in all 4 extremities, Sensation to light touch grossly present throughout, Cranial nerves II-XII grossly intact, no focal sensory deficits - Labs CBC & Chem 7: 03/04/18 09:16 03/06/18 07:58 Labs: Abnormal Lab Results - Last 24 Hours (Table) 03/06/18 03/06/18 Range/Units 07:58 07:58 PT 33.1 H (9.0-12.0) sec INR 3.7 H (<1.2) BUN 6 L (7-17) mg/dL Creatinine 0.45 L (0.52-1.04) mg/dL Calcium 8.3 L (8.4-10.2) mg/dL Microbiology - Last 24 Hours (Table) 03/04/18 09:16 Blood Culture Gram Stain - Preliminary Blood Blood Culture - Preliminary Group D Enterococcus 03/04/18 09:16 Blood Culture Gram Stain - Preliminary Blood Blood Culture - Preliminary Group D Enterococcus 03/04/18 09:30 Blood Culture - Final Blood 03/04/18 09:16 Blood Culture - Final Blood 03/02/18 14:25 Blood Culture Gram Stain - Final Blood Blood Culture - Final Enterococcus faecalis Assessment and Plan Plan: Gram-positive bacteremia, growing enterococcus in the blood. Source likely from the septic arthritis and possible cellulitis involving the right ankle and foot respectively Repeat blood cultures obtained on 03/04 positive, d/w dr Tyler. Will do CT ankle to look in the joint. Can't have MRI due to mechanical valve. TTE negative for vegetations. Doppler ultrasound negative for DVT in the RLE. Continue vancomycin per pharmacy, Chronic problems History of congestive heart Failure, status post mechanical valve replacement, Osteoarthritis (OA), Pneumonia, Stroke with residual right-sided weakness 2017, marfan's syndrome, ArnoldChiari malformation, spontaneous pneumothorax x 21, scoliosis and pectus excavatum secondary to Marfan's, chronic back pain, chronic bilateral leg pain, HEP C. History of MRSA: Resume home meds DVT prophylaxis Already on Coumadin, continue
--- NOTE | 2018-03-06 15:49 | XR ---
EXAMINATION TYPE: XR chest 2V DATE OF EXAM: 03/06/2018 COMPARISON: 12/09/2017 HISTORY: Shortness of breath TECHNIQUE: Frontal and lateral views of the chest are obtained. FINDINGS: In addition to the large hiatal hernia there is a new retrocardiac opacity silhouetting th e left hemidiaphragm and right lower lobe opacity with intrafissural fluid. Bullous emphysematous casi nges are noted with left apical bulla and postsurgical sutures of the left upper lobe. Right upper lo be is well aerated. There is a severe scoliotic S-shaped rotatory curvature of the usual S thoracolum bar spine. Post CABG changes the chest are seen. There is redemonstration of cardiomegaly that is par tially obscured. Bilateral small pleural effusions are seen. There is diffuse osseous demineralizatio n and partial visualization of postsurgical changes of the right humerus. IMPRESSION: Findings concerning for multifocal pneumonia and loculated right pleural effusion in add ition to trace bilateral layering pleural effusions superimposed upon bullous emphysematous change.
--- NOTE | 2018-03-06 17:08 | P.PN ---
Subjective Progress Note Date: 03/06/18 This is a 32-year-old female who was admitted for right ankle swelling and positive blood cultures. Patient states that she still has pain in the right ankle. Patient denies any new symptoms or complaints. Patient denies any fever/ chills, numbness, weakness, tingling, abdominal pain, shortness of breath or chest pain. Objective - Vital Signs Vital signs: Vital Signs Temp 98.0 F 03/06/18 05:35 Pulse 70 03/06/18 05:35 Resp 16 03/06/18 05:35 BP 118/76 03/06/18 05:35 Pulse Ox 92 L 03/06/18 05:35 Intake & Output 03/05/18 03/06/18 03/06/18 18:59 06:59 18:59 Other: Voiding Method Bedside Commode # Voids 2 3 1 - Exam On exam patient is well-appearing. Patient is alert and oriented 3 and lying in bed in acute distress. There is swelling of the right ankle and foot. There is no erythema. No fluctuance. Patient has limited range of motion of the right ankle due to pain. Capillary refill is normal at less than 2 seconds. Sensation intact. Dorsalis pedis pulses 2+. Neurovascular status and circulatory status are intact. - Labs CBC & Chem 7: 03/04/18 09:16 03/06/18 07:58 Labs: Abnormal Lab Results - Last 24 Hours (Table) 03/06/18 03/06/18 Range/Units 07:58 07:58 PT 33.1 H (9.0-12.0) sec INR 3.7 H (<1.2) BUN 6 L (7-17) mg/dL Creatinine 0.45 L (0.52-1.04) mg/dL Calcium 8.3 L (8.4-10.2) mg/dL Microbiology - Last 24 Hours (Table) 03/04/18 09:16 Blood Culture Gram Stain - Preliminary Blood Blood Culture - Preliminary Group D Enterococcus 03/04/18 09:16 Blood Culture Gram Stain - Preliminary Blood Blood Culture - Preliminary Group D Enterococcus 03/04/18 09:30 Blood Culture - Final Blood 03/04/18 09:16 Blood Culture - Final Blood 03/02/18 14:25 Blood Culture Gram Stain - Final Blood Blood Culture - Final Enterococcus faecalis Assessment and Plan (1) Bacteremia due to Enterococcus Current Visit: Yes Status: Acute Code(s): R78.81 - BACTEREMIA; B95.2 - ENTEROCOCCUS THE CAUSE OF DISEASES CLASSIFIED ELSEWHERE SNOMED Code(s): 199472100695 (2) Cellulitis of right foot Current Visit: Yes Status: Acute Code(s): L03.115 - CELLULITIS OF RIGHT LOWER LIMB SNOMED Code(s): 403458624 (3) Positive blood culture Current Visit: Yes Status: Acute Code(s): R78.81 - BACTEREMIA SNOMED Code( s): 243251052 (4) Right ankle pain Current Visit: Yes Status: Acute Code(s): M25.571 - PAIN IN RIGHT ANKLE AND JOINTS OF RIGHT FOOT SNOMED Code(s): 629646436 Plan: 1. Continue IV antibiotics per infectious disease. 2. Recommend rest and elevation. 3. Patient cannot have MRI due to aortic valve replacement. Patient remains afebrile. 4. No surgical intervention planned at this time. We will continue to follow the patient closely.
[2018-03-06] MEDS: WARFARIN 5 MG TAB PO SCH (18:00)
[2018-03-06] MEDS: VANCOMYCIN 750 MG in SODIUM CHLORIDE 0.9% 250 ML IVPB SCH (18:00)
[2018-03-06] MEDS: LEVOFLOXACIN 750MG-D5W PMX 750 MG in DEXTROSE/WATER 1 150ML.BAG IVPB SCH (18:27)
--- NOTE | 2018-03-06 19:35 | CT ---
EXAMINATION TYPE: CT ankle RT w con DATE OF EXAM: 03/06/2018 COMPARISON: NONE HISTORY: Right ankle pain and swelling. CT DLP: 240 mGycm Automated exposure control for dose reduction was used. CONTRAST: Performed with IV Contrast, patient injected with 100 mL of Isovue M300. FINDINGS: There is diffuse subcutaneous edema around the entire ankle joint. Ankle mortise is anatomic. I see n o focal bone destruction. There is mild flexion of the midfoot. The joint spaces are fairly well-main tained. I see no focal bone destruction. I see no pathologic enhancement.. IMPRESSION: SUBCUTANEOUS EDEMA. NO EVIDENCE OF OSTEOMYELITIS. NO FRACTURE SEEN.
[2018-03-06] MEDS: OLANZapine 10 MG TAB PO SCH (21:07)
[2018-03-06] MEDS: FERROUS SULFATE 325 MG TAB PO SCH (21:07)
[2018-03-07] MEDS: VANCOMYCIN 750 MG in SODIUM CHLORIDE 0.9% 250 ML IVPB SCH ×3 (02:21→17:38)
[2018-03-07] MEDS: MORPHINE SULFATE 2 MG/ML SYRINGE IV PRN ×4 (05:55→20:05)
[2018-03-07] MEDS ORDERED: LIDOCAINE 2% (PF) 20 MG/ML 2 ML VIAL SQ STA (07:26)
[2018-03-07] MEDS: DULoxetine HCL 60 MG CAPSULE.DR PO SCH (08:03)
[2018-03-07] MEDS: HYDROcodone/APAP 5-325MG 1 EACH TAB PO PRN ×4 (08:03→21:50)
[2018-03-07] MEDS: GABAPENTIN 100 MG CAP PO SCH ×3 (08:03→20:08)
[2018-03-07] MEDS: PANTOPRAZOLE 40 MG TABLET PO SCH (08:03)
[2018-03-07] MEDS: IPRATROPIUM-ALBUTEROL 3 ML NEB INHALATION SCH ×3 (08:33→19:36)
[2018-03-07 09:20] LABS: INR 3.2 (<1.2); Prothrombin Time 28.2 sec (9.0-12.0)
--- NOTE | 2018-03-07 10:05 | P.PN ---
Subjective Progress Note Date: 03/07/18 This is a 32-year-old female who is admitted for right ankle swelling and positive blood cultures. Patient reports continued pain in the right ankle, but denies any new symptoms or complaints. Patient denies any fever/chills, numbness , weakness, tingling, abdominal pain, shortness of breath or chest pain. Objective - Vital Signs Vital signs: Vital Signs Temp 96.7 F L 03/07/18 06:13 Pulse 81 03/07/18 06:13 Resp 16 03/07/18 06:13 BP 163/70 03/07/18 06:13 Pulse Ox 95 03/07/18 06:13 Intake & Output 03/06/18 03/07/18 03/07/18 18:59 06:59 18:59 Intake Total 840 Balance 840 Weight 57.606 kg Intake: Oral 840 Other: Voiding Method Bedside Commode Bedside Commode # Voids 2 2 - Exam On exam patient is well-appearing. Patient is alert and oriented 3 and lying in bed in acute distress. There is significant improvement in the swelling of the right ankle and foot. There is no erythema. No fluctuance. Capillary refill is normal at less than 2 seconds. Sensation intact. Dorsalis pedis pulses 2+. Neurovascular status and circulatory status are intact. - Labs CBC & Chem 7: 03/04/18 09:16 03/06/18 07:58 Labs: Abnormal Lab Results - Last 24 Hours (Table) 03/07/18 Range/Units 08:55 PT 28.2 H (9.0-12.0) sec INR 3.2 H (<1.2) Microbiology - Last 24 Hours (Table) 03/04/18 09:16 Blood Culture Gram Stain - Preliminary Blood Blood Culture - Preliminary Group D Enterococcus 03/04/18 09:16 Blood Culture Gram Stain - Preliminary Blood Blood Culture - Preliminary Group D Enterococcus Assessment and Plan (1) Bacteremia due to Enterococcus Current Visit: Yes Status: Acute Code(s): R78.81 - BACTEREMIA; B95.2 - ENTEROCOCCUS THE CAUSE OF DISEASES CLASSIFIED ELSEWHERE SNOMED Code(s): 030428309387 (2) Cellulitis of right foot Current Visit: Yes Status: Acute Code(s): L03.115 - CELLULITIS OF RIGHT LOWER LIMB SNOMED Code(s): 673210735 (3) Positive blood culture Current Visit: Yes Status: Acute Code(s): R78.81 - BACTEREMIA SNOMED Code( s): 637320194 (4) Right ankle pain Current Visit: Yes Status: Acute Code(s): M25.571 - PAIN IN RIGHT ANKLE AND JOINTS OF RIGHT FOOT SNOMED Code(s): 087370907 Plan: 1. Aspiration of the right ankle is performed at bedside using sterile technique. Patient tolerated the procedure well. The right ankle was aspirated in 2 locations and no fluid was obtained. CT of the right ankle did not show any evidence for joint effusion, osteomyelitis or bony abnormality. Patient remains afebrile and well-appearing. Patient's right ankle swelling is improving on exam. There is no erythema or fluctuance. Very low suspicion for septic arthritis. 2. Recommend continued rest and elevation. 3. No surgical intervention planned at this time. We will continue to follow the patient closely.
[2018-03-07] MEDS: LEVOFLOXACIN 750MG-D5W PMX 750 MG in DEXTROSE/WATER 1 150ML.BAG IVPB SCH (15:49)
[2018-03-07] MEDS: WARFARIN 5 MG TAB PO SCH (17:39)
[2018-03-07] MEDS: SODIUM CHLORIDE 0.9% 1,000 ML IV SCH (17:41)
--- NOTE | 2018-03-07 18:15 | P.PN ---
Subjective Progress Note Date: 03/07/18 Principal diagnosis: Right leg/foot pain and swelling Patient was noted to be short of breath and was hypoxic with pulse ox done in the 80s, O2 had to be bumped up to 5 L. Objective - Vital Signs Vital signs: Vital Signs Temp 97.0 F L 03/07/18 14:36 Pulse 76 03/07/18 14:36 Resp 18 03/07/18 15:16 BP 126/69 03/07/18 14:36 Pulse Ox 94 L 03/07/18 14:36 Intake & Output 03/06/18 03/07/18 03/07/18 18:59 06:59 18:59 Intake Total 840 1170 Balance 840 1170 Weight 57.606 kg Intake: IV 410 Sodium Chloride 0.9% 1, 160 000 ml @ 20 mls/hr IV . Q24H [facility] Rx#:[id number] Vancomycin 750 mg In 250 Sodium Chloride 0.9% 250 ml @ 125 mls/hr IVPB Q8H [facility] Rx#:[id number] Intake, IV Titration 160 Amount Sodium Chloride 0.9% 1, 160 000 ml @ 20 mls/hr IV . Q24H [facility] Rx#:[id number] Oral 840 600 Other: Voiding Method Bedside Commode Bedside Commode # Voids 2 2 5 - Exam Constitutional: No acute distress, conversant, pleasant Eyes:Anicteric sclerae, moist conjunctiva, no lid-lag, PERRLA, ENMT: Oropharynx clear, no erythema, exudates Neck: Supple, FROM, no masses, or JVD, No carotid bruits, No thyromegaly Lungs: Clear to auscultation, Clear to percussion, Normal respiratory effort, no accessory muscle use Cardiovascular: Mechanical heart sounds, S1-S2, regular rate and rhythm, No murmurs, gallops, or rubs, No peripheral edema Abdominal: Soft, Nontender, no guarding, rebound or rigidity, Normoactive bowel sounds, No hepatomegaly, No splenomegaly, No palpable mass Skin: Severe erythema and tenderness to touch Normal temperature, tone, texture , turgor, no induration, No subcutaneous nodules, No rash, lesions, No ulcers Extremities: Right ankle swelling, limited range of motion, No digital cyanosis , No clubbing, Pedal pulses intact and symmetrical, Radial pulses intact and symmetrical, No calf tenderness Psychiatric: Alert and oriented to person, place and time, appropriate affect, intact judgement Neuro: Muscles Strength 5/5 in all 4 extremities, Sensation to light touch grossly present throughout, Cranial nerves II-XII grossly intact, no focal sensory deficits - Labs CBC & Chem 7: 03/04/18 09:16 03/06/18 07:58 Labs: Abnormal Lab Results - Last 24 Hours (Table) 03/07/18 Range/Units 08:55 PT 28.2 H (9.0-12.0) sec INR 3.2 H (<1.2) Assessment and Plan Plan: Gram-positive bacteremia, growing enterococcus in the blood. Source likely from the septic arthritis and possible cellulitis involving the right ankle and foot respectively Discussed with Orthopedics, attempt at aspiration of the right ankle joint was done, not successful, nothing was aspirated. CT ankle didn't show evidence of joint infection. TTE negative for vegetations. Doppler ultrasound negative for DVT in the RLE. Continue vancomycin per pharmacy Acute hypoxic respiratory failure/acute healthcare associated pneumonia Chest x-ray showed multifocal pneumonia which could be secondary to bacterial seeding Levaquin added to her regimen Discussed with Dr. Tyler Chronic problems History of congestive heart Failure, status post mechanical valve replacement, Osteoarthritis (OA), Pneumonia, Stroke with residual right-sided weakness 2017, marfan's syndrome, ArnoldChiari malformation, spontaneous pneumothorax x 21, scoliosis and pectus excavatum secondary to Marfan's, chronic back pain, chronic bilateral leg pain, HEP C. History of MRSA: Resume home meds DVT prophylaxis Already on Coumadin, continue
[2018-03-07] MEDS: OLANZapine 10 MG TAB PO SCH (20:08)
[2018-03-07] MEDS: FERROUS SULFATE 325 MG TAB PO SCH (20:08)
[2018-03-08] MEDS: VANCOMYCIN 750 MG in SODIUM CHLORIDE 0.9% 250 ML IVPB SCH ×2 (02:15→10:37)
[2018-03-08] MEDS: IPRATROPIUM-ALBUTEROL 3 ML NEB INHALATION SCH (07:37)
[2018-03-08 07:40] VITALS: TEMP 97.8
--- NOTE | 2018-03-08 07:56 | P.PN ---
Subjective This is a 32-year-old female who is admitted for right ankle swelling and positive blood cultures. Patient complains of pain to the right ankle today. Patient denies any new symptoms or complaints. Patient denies any fever/chills , numbness, weakness, tingling, abdominal pain, shortness of breath or chest pain. Objective - Vital Signs Vital signs: Vital Signs Temp 97.8 F 03/08/18 07:15 Pulse 69 03/08/18 07:15 Resp 16 03/08/18 07:15 BP 121/56 03/08/18 07:15 Pulse Ox 92 L 03/08/18 07:15 Intake & Output 03/07/18 03/08/18 03/08/18 18:59 06:59 18:59 Intake Total 1170 600 Balance 1170 600 Intake: IV 410 Sodium Chloride 0.9% 1, 160 000 ml @ 20 mls/hr IV . Q24H [facility] Rx#:[id number] Vancomycin 750 mg In 250 Sodium Chloride 0.9% 250 ml @ 125 mls/hr IVPB Q8H [facility] Rx#:[id number] Intake, IV Titration 160 Amount Sodium Chloride 0.9% 1, 160 000 ml @ 20 mls/hr IV . Q24H [facility] Rx#:[id number] Oral 600 600 Other: # Voids 5 3 # Bowel Movements 0 - Exam On exam patient is well-appearing. Patient is alert and oriented 3 and lying in bed in acute distress. Patient has good active and passive range of motion of the right foot and ankle without pain or difficulty. There is no tenderness to palpation over the right ankle. There is minimal to no swelling. There is no erythema. No fluctuance. Capillary refill is normal at less than 2 seconds. Sensation intact. Dorsalis pedis pulses 2+. Neurovascular status and circulatory status are intact. - Labs CBC & Chem 7: 03/04/18 09:16 03/06/18 07:58 Labs: Abnormal Lab Results - Last 24 Hours (Table) 03/07/18 Range/Units 08:55 PT 28.2 H (9.0-12.0) sec INR 3.2 H (<1.2) Assessment and Plan (1) Bacteremia due to Enterococcus Current Visit: Yes Status: Acute Code(s): R78.81 - BACTEREMIA; B95.2 - ENTEROCOCCUS THE CAUSE OF DISEASES CLASSIFIED ELSEWHERE SNOMED Code(s): 309486104021 (2) Cellulitis of right foot Current Visit: Yes Status: Acute Code(s): L03.115 - CELLULITIS OF RIGHT LOWER LIMB SNOMED Code(s): 840273845 (3) Positive blood culture Current Visit: Yes Status: Acute Code(s): R78.81 - BACTEREMIA SNOMED Code( s): 824539424 (4) Right ankle pain Current Visit: Yes Status: Acute Code(s): M25.571 - PAIN IN RIGHT ANKLE AND JOINTS OF RIGHT FOOT SNOMED Code(s): 934410280 Plan: 1. Patient is afebrile and well-appearing. There is no evidence of a joint infection on CT of right ankle. On exam the patient's right ankle swelling and pain have improved. Very low suspicion for septic arthritis. 2. Recommend continued rest and elevation. 3. No surgical intervention planned at this time. Will continue to follow.
[2018-03-08 08:03] LABS: INR 2.6 (<1.2); Prothrombin Time 23.7 sec (9.0-12.0)
[2018-03-08 08:04] LABS: Anisocytosis Slight; Basophils # (A) 0.1 k/uL (0-0.2); Basophils % (A) 1 %; Eosinophils # (A) 0.5 k/uL (0-0.7); Eosinophils % (A) 7 %; HCT 36.5 % (34.0-46.0); HGB 10.5 gm/dL (11.4-16.0); Hypochromasia Marked; Lymphocytes % (A) 27 %; MCH 22.4 pg (25.0-35.0); MCHC 28.7 g/dL (31.0-37.0); Mean Platelet Volume 7.1; Microcytosis Slight; Monocytes # (A) 0.6 k/uL (0-1.0); Monocytes % (A) 7 %; Neutrophils # (A) 4.3 k/uL (1.3-7.7); Neutrophils % (A) 56 %; Platelet Count 556 k/uL (150-450); Poikilocytosis Slight; RBC 4.67 m/uL (3.80-5.40); RDW 19.8 % (11.5-15.5); WBC 7.7 k/uL (3.8-10.6)
[2018-03-08 08:20] LABS: ALT 23 U/L (9-52); AST 21 U/L (14-36); Albumin 3.1 g/dL (3.5-5.0); Alkaline Phosphatase 93 U/L (38-126); Anion Gap 7 mmol/L; Blood Urea Nitrogen 10 mg/dL (7-17); Calcium 8.7 mg/dL (8.4-10.2); Carbon Dioxide 29 mmol/L (22-30); Chloride 105 mmol/L (98-107); Glucose 72 mg/dL (74-99); Magnesium 1.8 mg/dL (1.6-2.3); Phosphorus 4.8 mg/dL (2.5-4.5); Potassium 4.4 mmol/L (3.5-5.1); Sodium 141 mmol/L (137-145); Total Bilirubin 0.4 mg/dL (0.2-1.3); Total Protein 7.1 g/dL (6.3-8.2)
[2018-03-08] MEDS: PANTOPRAZOLE 40 MG TABLET PO SCH (08:27)
[2018-03-08] MEDS: DULoxetine HCL 60 MG CAPSULE.DR PO SCH (08:28)
[2018-03-08] MEDS: GABAPENTIN 100 MG CAP PO SCH (08:28)
[2018-03-08] MEDS ORDERED: MIDAZOLAM 2 MG/2 ML VIAL ONE (08:45)
[2018-03-08] MEDS ORDERED: fentaNYL (PF) 50 MCG/ML 2 ML AMP ONE (08:46)
[2018-03-08] MEDS ORDERED: IV FLUID CONTINUATION 325 ML IV ONE (08:51)
[2018-03-08] MEDS ORDERED: VANCOMYCIN TROUGH DUE 1 EACH MISC MISCELLANE ONE (09:00)
[2018-03-08] MEDS ORDERED: MIDAZOLAM 2 MG/2 ML VIAL IV ONE (09:19)
[2018-03-08] MEDS ORDERED: BENZOCAINE SPRAY 1 CAN MUCOUS MEM ONE (09:19)
[2018-03-08] MEDS ORDERED: fentaNYL (PF) 50 MCG/ML 2 ML AMP IV ONE (09:22)
[2018-03-08] MEDS: HYDROcodone/APAP 5-325MG 1 EACH TAB PO PRN (10:37)
--- NOTE | 2018-03-08 10:40 | P.CRDCN ---
History of Present Illness History of present illness: Mrs. Gilmore is a pleasant 32-year-old female past medical history significant for marfan syndrome, aortic valve replacement in the at [facility], diastolic heart failure, chronic tobacco dependence, IV drug abuse, hepatitis C and non-compliance. We have been asked to perform a CHIOMA on her for persistent bacteremia. Blood cultures obtained 03/02 positive for enterococcus faecalis. Repeat on 03/04 with same findings. She presented to the hospital with complaints of pain in the right foot. Initially the concern was for septic arthritis and she was started on vancomycin. She is also being treated for pneumonia and was started on levofloxacin per primary medical team. Infectious disease is also following as well as orthopedeics. CT of the ankle is negative for osteomyelitis. Echocardiogram performed early in this admission reveals preserved left ventricular systolic function with ejection fraction 55-60%, severely dilated left atrium, mean gradient across the aortic valve 13.99 mmHg, with a normally functioning mechanical prosthetic valve, mildly thickened mitral valve, severe mitral regurgitation, mild tricuspid regurgitation and mild pulmonary hypertension with an RVSP of 38.90 mmHg. Laboratory data reviewed, WBC 7.7, hgb 10.5, plt 556, INR 2.6, sodium 141, potassium 4.4, creatinine 0.56. Chest xray 03/06 reveals multifocal pneumonia and locuated pleural effusion with trace bilateral pleural effusions superimposed upon bullous emphsysematous changes. Doppler of right lower extremity negative for DVT. Home cardiac medications include warfarin 5 mg daily. She also takes zyprexa, senekot, duoneb, gabapentin, ferrous sulfate, cymabalta, ventolin and protonix. Review of Systems At the time of my exam: CONSTITUTIONAL: Denies fever. Denies chills. EYES: Denies blurred vision. Denies vision changes. Denies eye pain. EARS, NOSE, MOUTH & THROAT: Denies headache. Denies sore throat. Denies ear pain. CARDIOVASCULAR: Denies chest pain. Denies shortness of breath. Denies orthopnea. Denies PND. Denies palpitations. RESPIRATORY: Denies cough. GASTROINTESTINAL: Denies abdominal pain. Denies diarrhea. Denies constipation. Denies nausea. Denies vomiting. MUSCULOSKELETAL: Denies myalgias. INTEGUMENTARY: Denies pruitis. Denies rash. NEUROLOGIC: Denies numbness. Denies tingling. Denies weakness. PSYCHIATRIC: Denies anxiety. Denies depression. ENDOCRINE: Denies fatigue. Denies weight change. Denies polydipsia. Denies polyurina. GENITOURINARY: Denies burning, hematuria or urgency with micturation. HEMATOLOGIC: Denies history of anemia. Denies bleeding. Past Medical History Past Medical History: Heart Failure, CVA/TIA, Neurologic Disorder, Osteoarthritis (OA), Pneumonia Additional Past Medical History / Comment(s): Stroke with residual right-sided weakness 2017, marfan's syndrome, ArnoldChiari malformation, spontaneous pneumothorax x 21, scoliosis and pectus excavatum secondary to Marfan's, chronic back pain, bilateral leg pain, sinus infections, STATED HAS POOR CIRCULATION, viral meningitis, HEP C. History of Any Multi-Drug Resistant Organisms: MRSA Date of last positivie culture/infection: 05/05/2010 MDRO Source:: back per patient Past Surgical History: Cardiac Valve Replacement, Coronary Bypass/CABG, Joint Replacement Additional Past Surgical History / Comment(s): right foot corrective surgery, R shoulder surgery following injury, CABG x4 vessel, aortic root graft, aortic valve replaced as child (2 separate surgeries last 10 years old), tiffani lens removed. spleenectomy 2018 Past Anesthesia/Blood Transfusion Reactions: No Reported Reaction Past Psychological History: Anxiety Additional Psychological History / Comment(s): . Smoking Status: Current every day smoker Past Alcohol Use History: None Reported Additional Past Alcohol Use History / Comment(s): Patient is smoker of one pack per day since she was 10 years of age. She denies any medical marijuana, marijuana, street drug or alcohol use. Patient is currently on disability. She recently obtained a public guardian and is living in a skilled nursing. 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 denies etoh or drug use and UDS negative - Past Family History Father Additional Family Medical History / Comment(s): Father is with history of AIDS. Mother Family Medical History: Diabetes Mellitus Additional Family Medical History / Comment(s): Mother at age 49 from liver cirrhosis secondary to alcohol abuse. Brother(s) Additional Family Medical History / Comment(s): Patient has one brother with no major medical problems. Patient does not have any sisters. Patient does not have any children. Medications and Allergies Home Medications Medication Instructions Recorded Confirmed Type Albuterol Inhaler [Ventolin Hfa 2 puff INHALATION RT-Q8H PRN 11/01/17 03/02/18 History Inhaler] Ferrous Sulfate [Feosol] 325 mg PO HS@2100 11/01/17 03/02/18 History DULoxetine HCL [Cymbalta] 60 mg PO DAILY capsule. 11/10/17 03/02/18 Rx Gabapentin [Neurontin] 100 mg PO TID cap 11/10/17 03/02/18 Rx Ipratropium-Albuterol Nebulize 3 ml INHALATION RT-TID ampul.neb 11/10/17 Rx [Duoneb 0.5 mg-3 mg/3 ml Soln] OLANZapine [ZyPREXA] 10 mg PO HS tab 11/10/17 03/02/18 Rx Pantoprazole [Protonix] 40 mg PO AC-BRKFST tablet. 11/10/17 02/28/18 Rx Warfarin [Coumadin] 5 mg PO DAILY #10 tab 11/10/17 03/02/18 Rx Sennosides [Senokot] 8.6 mg PO DAILY PRN 02/14/18 03/02/18 History Allergies Allergy/AdvReac Type Severity Reaction Status Date / Time chlordiazepoxide HCl Allergy Unknown Verified 03/02/18 13:11 [From Librium] Penicillins Allergy Rash/Hives Verified 03/02/18 13:11 prochlorperazine edisylate Allergy PANIC Verified 03/02/18 13:11 [From Compazine] ATTACK prochlorperazine maleate Allergy PANIC Verified 03/02/18 13:11 [From Compazine] ATTACK ketorolac [From Toradol] AdvReac Verified 03/02/18 14:45 Physical Exam Vitals: Vital Signs Temp Pulse Pulse Resp BP Pulse Ox 03/08/18 07:15 97.8 F 69 16 121/56 92 L 03/07/18 22:50 98.4 F 84 16 110/52 92 L 03/07/18 15:16 18 03/07/18 14:36 97.0 F L 76 18 126/69 94 L Intake and Output 03/07/18 03/08/18 03/08/18 22:59 06:59 14:59 Intake Total 600 50 Balance 600 50 Intake: IV 50 Oral 600 Other: Voiding Method Bedside Commode # Voids 1 3 # Bowel Movements 0 0 Blood pressure 121/56 heart rate 69 afebrile maintaining oxygen saturation on nasal cannula 4 L GENERAL: This is a 32-year-old female in no apparent distress at the time of my examination. Frail. HEENT: Head is atraumatic, normocephalic. Pupils are equal, round. Sclerae anicteric. Conjunctivae are clear. Mucous membranes of the mouth are moist. Neck is supple. There is no jugular venous distention. No carotid bruit is heard. LUNGS: Clear to auscultation no wheezes, rales or rhonchi. No chest wall tenderness is noted on palpation or with deep breathing. HEART: Regular rate and rhythm with prosthetic valve sounds at the base. S1 and S2 heard. ABDOMEN: Soft, nontender. Bowel sounds are heard. No organomegaly noted. EXTREMITIES: No evidence of peripheral edema and no calf tenderness noted. VASCULAR: Radial and dorsalis pedis pulses palpated, no evidence of clubbing. NEUROLOGIC: Patient is awake, alert and oriented x3. Results 03/08/18 07:10 03/08/18 07:10 Cardiac Enzymes 03/08/18 Range/Units 07:10 AST 21 (14-36) U/L Coagulation 03/08/18 Range/Units 07:10 PT 23.7 H (9.0-12.0) sec CBC 03/08/18 Range/Units 07:10 WBC 7.7 (3.8-10.6) k/uL RBC 4.67 (3.80-5.40) m/uL Hgb 10.5 L (11.4-16.0) gm/dL Hct 36.5 (34.0-46.0) % Plt Count 556 H (150-450) k/uL Comprehensive Metabolic Panel 03/08/18 Range/Units 07:10 Sodium 141 (137-145) mmol/L Potassium 4.4 (3.5-5.1) mmol/L Chloride 105 (98-107) mmol/L Carbon Dioxide 29 (22-30) mmol/L BUN 10 (7-17) mg/dL Creatinine 0.56 (0.52-1.04) mg/dL Glucose 72 L (74-99) mg/dL Calcium 8.7 (8.4-10.2) mg/dL AST 21 (14-36) U/L ALT 23 (9-52) U/L Alkaline Phosphatase 93 (38-126) U/L Total Protein 7.1 (6.3-8.2) g/dL Albumin 3.1 L (3.5-5.0) g/dL Current Medications Generic Name Dose Route Start Last Admin Trade Name Freq PRN Reason Stop Dose Admin Acetaminophen 650 mg 03/02/18 16:08 Tylenol Tab PO Q6HR PRN Mild Pain or Fever > 100.5 Hydrocodone Bitart/Acetaminophen 1 each 03/02/18 16:08 03/07/18 21:50 [place] 5-325 PO 1 each Q4HR PRN Administration Moderate Pain Albuterol Sulfate 2.5 mg 03/02/18 17:06 03/06/18 23:00 Ventolin Nebulized INHALATION 2.5 mg RT-Q8H PRN Administration sob Albuterol/Ipratropium 3 ml 03/02/18 20:00 03/08/18 07:37 Duoneb 0.5 Mg-3 Mg/3 Ml Soln INHALATION Not Given RT-TID [facility] Duloxetine HCl 60 mg 03/03/18 09:00 03/08/18 08:28 Cymbalta PO Not Given DAILY DARION Ferrous Sulfate 325 mg 03/02/18 21:00 03/07/18 20:08 Feosol PO 325 mg HS@2100 DARION Administration Gabapentin 100 mg 03/02/18 22:00 03/08/18 08:28 Neurontin PO Not Given TID DARION Vancomycin HCl 750 mg/ Sodium 250 mls @ 125 mls/hr 03/06/18 18:00 03/08/18 02 :15 Chloride IVPB 125 mls/hr Q8H DARION Administration Levofloxacin 750 mg/ IV 150 mls @ 100 mls/hr 03/06/18 16:00 03/07/18 15:49 Solution IVPB 100 mls/hr Q24H DARION Administration Sodium Chloride 1,000 mls @ 20 mls/hr 03/06/18 17:30 03/07/18 17:41 Saline 0.9% IV 20 mls/hr .Q24H DARION Administration Ibuprofen 400 mg 03/02/18 16:08 03/05/18 10:54 Motrin PO 400 mg Q6HR PRN Administration Mild Pain or Fever > 100.5 Lorazepam 0.5 mg 03/02/18 16:08 03/07/18 22:48 Ativan IV 0.5 mg Q6HR PRN Administration Anxiety Morphine Sulfate 2 mg 03/02/18 17:03 03/07/18 20:05 Morphine Sulfate (Inj) IV 2 mg Q4HR PRN Administration Severe Pain Naloxone HCl 0.2 mg 03/02/18 17:03 Narcan IV Q2M PRN Opioid Reversal Olanzapine 10 mg 03/02/18 21:00 03/07/18 20:08 Zyprexa PO 10 mg HS DARION Administration Ondansetron HCl 4 mg 03/02/18 16:08 Zofran IVP Q8HR PRN Nausea And Vomiting Pantoprazole Sodium 40 mg 03/03/18 07:30 03/08/18 08:27 Protonix PO Not Given -BRKFST [facility] Senna 8.6 mg 03/02/18 17:06 Senokot PO DAILY PRN Constipation Warfarin Sodium 5 mg 03/02/18 18:00 03/07/18 17:39 Coumadin PO 5 mg DAILY@1800 DARION Administration Intake and Output 03/07/18 03/08/18 03/08/18 22:59 06:59 14:59 Intake Total 600 50 Balance 600 50 Intake: IV 50 Oral 600 Other: Voiding Method Bedside Commode # Voids 1 3 # Bowel Movements 0 0 03/08/18 07:10 03/08/18 07:10 Assessment and Plan Assessment: ASSESSMENT Gram positive bacteremia, enterococcus Right foot cellulitis Pneumonia causing hypoxia 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 We will proceed with this procedure this morning she has been nothing by mouth since before midnight last night. The procedure has been explained to the patient in great detail, questions have been answered appropriately and she is agreeable to move forward with the above stated procedure. Further recommendations to follow based on CHIOMA findings. Nurse Practitioner note has been reviewed, I agree with a documented findings and plan of care. Patient was seen and examined.
[2018-03-08 11:18] VITALS: RESP 14
[2018-03-08 11:21] VITALS: BP 116/63; PULSE 81
--- NOTE | 2018-03-08 11:50 | ECHOT ---
TRANSESOPHAGEAL ECHOCARDIOGRAM INDICATION: Enterococcal septicemia with arthritis in a patient with prosthetic valve. Patient has a history of Marfan syndrome and underwent aortic valve replacement, has history of IV drug abuse and hepatitis C. She is admitted to hospital with septic arthritis and has persistently positive blood cultures. I was asked to perform a transesophageal echo on him to evaluate for infective endocarditis. PROCEDURE NOTE: After obtaining informed consent, transesophageal echocardiogram is performed in left lateral position using an Omni plane probe. Local and IV sedation were obtained using Xylocaine spray, Versed and fentanyl. Patient tolerated the procedure well without any obvious immediate complications. FINDINGS: 1. MITRAL VALVE: Mitral valve leaflets appear thickened. There are small echodense lesions noted on the atrial surface of both anterior and posterior mitral leaflets. There is moderate central mitral regurgitation noted. 2. AORTIC VALVE: Aortic valve is a mechanical valve in aortic position. It is difficult to rule out vegetation over the aortic leaflets. There is trace aortic regurgitation noted. 3. Tricuspid valve shows mild tricuspid regurgitation. 4. Right atrium and right ventricle appear enlarged. Left ventricle shows normal LV function with an ejection fraction of around 55%-60%. 5. There is no evidence of left to right shunt by color-flow Doppler or right right-to- left shunt by agitated saline contrast study across the interatrial septum. CONCLUSIONS: 1. This transesophageal echo shows vegetations involving the mitral valve leaflets with moderate central mitral regurgitation. 2. I cannot rule out vegetation over the mechanical aortic valve. MMODL / IJN: [id number] /
--- NOTE | 2018-03-08 13:35 | P.DS ---
Providers Date of admission: 03/02/18 16:00 Expected date of discharge: 03/11/18 Attending physician: Juan Marcum MD Consults: 03/02/18 17:06 Consult Physician Routine Consulting Provider: Jah Tyler Consult Reason/Comments: cellulitis Do you want consulting provider notified?: Yes 03/03/18 16:07 Consult Physician Urgent Consulting Provider: Herman Luque Consult Reason/Comments: septic arthritis Do you want consulting provider notified?: Yes 03/07/18 18:27 Consult Physician Urgent Consulting Provider: Jenny Morris Consult Reason/Comments: bacterermia, need humberto Do you want consulting provider notified?: Yes Primary care physician: [facility] Diagnosis(es) (1) Infectious endocarditis Status: Acute (2) Bacteremia due to Enterococcus Status: Acute (3) Acute respiratory failure with hypoxia Status: Acute (4) Pneumonia Status: Acute (5) Mechanical heart valve present Status: Acute (6) Cellulitis of right foot Status: Acute (7) Right ankle pain Status: Acute Hospital Course: The patient is a 32-year-old female with a past medical history of Marfan syndrome, aortic valve replacement, chronic diastolic heart failure, IV drug abuse, chronic tobacco dependence, hepatitis C and history of noncompliance who was admitted for group D enterococcus bacteremia and concern for possible septic right ankle arthritis after presenting with right ankle and foot pain, she was started on empiric IV antibiotics with IV vancomycin. Orthopedics was consulted regarding concerns for possible septic right ankle, after initial x-rays showed mild diffuse soft tissue swelling. Unsuccessful attempts were made at aspirating the joint, but there was no fluid obtained. The patient was unable to have MRI of that foot and ankle joint secondary to history of mechanical valve placement, subsequent CT of the right ankle was negative for any osteomyelitis only showing subcutaneous edema With orthopedic suggesting very minimal likelihood of septic joint. Repeat blood cultures were consistent with persistentm group D enterococcal bacteremia, despite this the patient remained afebrile without leukocytosis throughout the hospitalization. She was noted to have acute respiratory failure secondary to multifocal pneumonia with loculated right pleural effusion superimposed on bullous emphysematous changes and she was started on Levaquin TTE was performed which showed ejection fraction of 55-60% with a severely dilated left atrium subsequent HUMBERTO performed was consistent with vegetations on the posterior and anterior leaflet of the mitral valve, being unable to rule out vegetation on the aortic valve. Cardiology then arranged for the patient to be transferred to [facility] to a tertiary center for higher level of care, given the patient' s complicated medical history. She was subsequently transferred to [facility] in stable condition Constitutional: No acute distress, conversant, pleasant, marfanoid appearance Eyes: Anicteric sclerae, moist conjunctiva, no lid-lag, PERRLA ENMT: NC/AT,Oropharynx clear, no erythema, exudates Neck:Supple, FROM, no masses, or JVD, No carotid bruits; No thyromegaly Lungs: Clear to auscultation, Clear to percussion, Normal respiratory effort, no accessory muscle use Cardiovascular: Heart regular in rate and rhythm, with prosthetic valve sounds at the base Abdominal: Soft Nontender, nom distended, no guarding, no rebound or rigidity, Normoactive bowel sounds No hepatomegaly, No splenomegaly, No palpable mass No abdominal wall hernia noted Skin: Normal temperature, tone, texture, turgor, No induration No subcutaneous nodules, No rash, lesions, No ulcers Extremities:No digital cyanosis No clubbing, Pedal pulses intact and symmetrical Radial pulses intact and symmetrical Normal gait and station, No calf tenderness Psychiatric: Alert and oriented to person, place and time, Appropriate affect Intact judgement Neuro: Muscles Strength 5/5 in all 4 extremities, Sensation to light touch grossly present throughout, Cranial nerves II-XII grossly intact. No focal sensory deficits Plan - Discharge Summary Discharge Rx Participant: Yes New Discharge Prescriptions: New Acetaminophen Tab [Tylenol] 650 mg PO Q6HR PRN tab PRN Reason: Mild Pain Or Fever > 100.5 Albuterol Nebulized [Ventolin Nebulized] 2.5 mg INHALATION RT-Q8H PRN nebu PRN Reason: sob DULoxetine HCL [Cymbalta] 60 mg PO DAILY capsule. Ferrous Sulfate [Iron (65 MG Elemental)] 325 mg PO HS@2100 tab Gabapentin [Neurontin] 100 mg PO TID cap HYDROcodone/APAP 5-325MG [[place] 5-325] 1 each PO Q4HR PRN tab PRN Reason: Moderate Pain Ibuprofen [Motrin] 400 mg PO Q6HR PRN tab PRN Reason: Mild Pain Or Fever > 100.5 Ipratropium-Albuterol Nebulize [Duoneb 0.5 mg-3 mg/3 ml Soln] 3 ml INHALATION RT-TID ampul.neb Levofloxacin 750Mg-D5w Pmx [Levaquin 750Mg-D5w Pmx] 750 mg IVPB Q24H bag OLANZapine [ZyPREXA] 10 mg PO HS tab Ondansetron [Zofran] 4 mg IVP Q8HR PRN vial PRN Reason: Nausea And Vomiting Pantoprazole [Protonix] 40 mg PO AC-BRKFST tablet. Sennosides [Senokot] 8.6 mg PO DAILY PRN tab PRN Reason: Constipation Vancomycin 750 mg IVPB Q8H vial Warfarin [Coumadin] 5 mg PO DAILY@1800 tab Discontinued Albuterol Inhaler [Ventolin Hfa Inhaler] 2 puff INHALATION RT-Q8H PRN PRN Reason: sob Ferrous Sulfate [Feosol] 325 mg PO HS@2100 DULoxetine HCL [Cymbalta] 60 mg PO DAILY capsule. Gabapentin [Neurontin] 100 mg PO TID cap Ipratropium-Albuterol Nebulize [Duoneb 0.5 mg-3 mg/3 ml Soln] 3 ml INHALATION RT-TID ampul.neb OLANZapine [ZyPREXA] 10 mg PO HS tab Pantoprazole [Protonix] 40 mg PO AC-BRKFST tablet. Warfarin [Coumadin] 5 mg PO DAILY #10 tab Sennosides [Senokot] 8.6 mg PO DAILY PRN PRN Reason: Constipation Discharge Medication List Acetaminophen Tab [Tylenol] 650 mg PO Q6HR PRN tab 03/08/18 [Rx] Albuterol Nebulized [Ventolin Nebulized] 2.5 mg INHALATION RT-Q8H PRN nebu 01/19 [Rx] DULoxetine HCL [Cymbalta] 60 mg PO DAILY capsule. 03/08/18 [Rx] Ferrous Sulfate [Iron (65 MG Elemental)] 325 mg PO HS@2100 tab 03/08/18 [Rx] Gabapentin [Neurontin] 100 mg PO TID cap 03/08/18 [Rx] HYDROcodone/APAP 5-325MG [[place] 5-325] 1 each PO Q4HR PRN tab 03/08/18 [Rx] Ibuprofen [Motrin] 400 mg PO Q6HR PRN tab 03/08/18 [Rx] Ipratropium-Albuterol Nebulize [Duoneb 0.5 mg-3 mg/3 ml Soln] 3 ml INHALATION RT -TID ampul.neb 03/08/18 [Rx] Levofloxacin 750Mg-D5w Pmx [Levaquin 750Mg-D5w Pmx] 750 mg IVPB Q24H bag [Rx] OLANZapine [ZyPREXA] 10 mg PO HS tab 03/08/18 [Rx] Ondansetron [Zofran] 4 mg IVP Q8HR PRN vial 03/08/18 [Rx] Pantoprazole [Protonix] 40 mg PO AC-BRKFST tablet. 03/08/18 [Rx] Sennosides [Senokot] 8.6 mg PO DAILY PRN tab 03/08/18 [Rx] Vancomycin 750 mg IVPB Q8H vial 03/08/18 [Rx] Warfarin [Coumadin] 5 mg PO DAILY@1800 tab 03/08/18 [Rx] Follow up Appointment(s)/Referral(s): [facility] [Primary Care Provider] - 1-2 days Discharge Disposition: DISCH/TRANS TO A [facility]
== END 2018-03-08 13:23 | disposition short-term general hospital (02) | DRG 548 ==
LOC: EC 11:53 → 4MS4W 16:00
PROVIDERS: ADMIT Internal Medicine; ATTEND Internal Medicine
PROC: B24BZZ4 Ultrasonography of Heart with Aorta, Transesophageal (ICD-10-PCS; principal; 2018-03-08 08:30)
DX: M00.871 Arthritis due to other bacteria, right ankle and foot (principal); I33.0 Acute and subacute infective endocarditis; J18.9 Pneumonia, unspecified organism; J96.01 Acute respiratory failure with hypoxia; R78.81 Bacteremia; I50.32 Chronic diastolic (congestive) heart failure; I69.351 Hemiplegia and hemiparesis following cerebral infarction affecting right dominant side; L03.115 Cellulitis of right lower limb; Q87.40 Marfan syndrome, unspecified; J90 Pleural effusion, not elsewhere classified; B95.2 Enterococcus as the cause of diseases classified elsewhere; B96.89 Other specified bacterial agents as the cause of diseases classified elsewhere; F17.210 Nicotine dependence, cigarettes, uncomplicated; F41.9 Anxiety disorder, unspecified; I08.1 Rheumatic disorders of both mitral and tricuspid valves; I27.20 Pulmonary hypertension, unspecified; J43.9 Emphysema, unspecified; M41.9 Scoliosis, unspecified; B19.20 Unspecified viral hepatitis C without hepatic coma; G89.29 Other chronic pain; M19.90 Unspecified osteoarthritis, unspecified site; Q07.00 Arnold-Chiari syndrome without spina bifida or hydrocephalus; M54.9 Dorsalgia, unspecified; I25.10 Atherosclerotic heart disease of native coronary artery without angina pectoris; Z79.01 Long term (current) use of anticoagulants; Z79.899 Other long term (current) drug therapy; Z88.0 Allergy status to penicillin; Z88.8 Allergy status to other drugs, medicaments and biological substances; Z86.14 Personal history of Methicillin resistant Staphylococcus aureus infection; Z95.2 Presence of prosthetic heart valve; Z95.1 Presence of aortocoronary bypass graft; Z91.19 Patient's noncompliance with other medical treatment and regimen; Z90.81 Acquired absence of spleen; Z87.01 Personal history of pneumonia (recurrent); Z96.60 Presence of unspecified orthopedic joint implant; Z83.0 Family history of human immunodeficiency virus [HIV] disease; Z83.3 Family history of diabetes mellitus; Z84.89 Family history of other specified conditions
CPT/HCPCS: 36415; 71046; 80048; 80053; 80202; 83605; 83735; 84100; 85025; 85610; 85730; 86140; 87040; 87077; 87186; 93005; 93306; 93312; 93320; 93325; 94640; 94760; 96365; 96366; 96375; 99285

== ENCOUNTER 2018-05-04 14:07 | Emergency (ER) | payer OTHER ==
[2018-05-04 14:26] VITALS: BP 105/64; PULSE 78; RESP 18; TEMP 98
[2018-05-04] MEDS ORDERED: ACETAMINOPHEN TAB 500 MG TAB PO STA (14:48)
--- NOTE | 2018-05-04 15:01 | ED ---
General Adult HPI - General Chief complaint: Back Pain/Injury Stated complaint: Back Pain Time Seen by Provider: 05/04/18 14:20 Source: patient, RN notes reviewed Mode of arrival: ambulatory Limitations: no limitations - History of Present Illness Initial comments: 32-year-old female presents to the emergency department for a chief complaint of back and leg pain. Patient states this is chronic pain and has been ongoing. Patient denies any change in character of the pain. She states it is a dull pain in her low back and her bilateral anterior thighs. Patient denies any fevers or chills at home. Patient denies any pain in the calves. Patient denies any numbness or tingling in the lower extremities. No weakness in the lower extremities. Patient denies shooting pain down the legs as it is more a dull pain on the anterior thighs. Patient denies any urinary symptoms or difficulty urinating. Patient does have a history of IV drug abuse but has not used in over one year. Patient denies history of cancer or chronic steroid use. She does have a history of Marfan's disease. Patient has no other complaints at this time including shortness of breath, chest pain, abdominal pain, nausea or vomiting, headache, or visual changes. - Related Data Home Medications Medication Instructions Recorded Confirmed HYDROcodone/APAP 5-325MG [[place] 1 tab PO Q4HR PRN 05/04/18 05/04/18 5-325] Warfarin [Coumadin] 5 mg PO HS@1800 05/04/18 05/04/18 Previous Rx's Medication Instructions Recorded Acetaminophen Tab [Tylenol] 650 mg PO Q6HR PRN tab 03/08/18 Albuterol Nebulized [Ventolin 2.5 mg INHALATION RT-Q8H PRN nebu 03/08/18 Nebulized] DULoxetine HCL [Cymbalta] 60 mg PO DAILY capsule. 03/08/18 Ferrous Sulfate [Iron (65 MG 325 mg PO HS@2100 tab 03/08/18 Elemental)] Gabapentin [Neurontin] 100 mg PO TID cap 03/08/18 Ibuprofen [Motrin] 400 mg PO Q6HR PRN tab 03/08/18 Ipratropium-Albuterol Nebulize 3 ml INHALATION RT-TID ampul.neb 03/08/18 [Duoneb 0.5 mg-3 mg/3 ml Soln] OLANZapine [ZyPREXA] 10 mg PO HS tab 03/08/18 Pantoprazole [Protonix] 40 mg PO AC-BRKFST tablet. 03/08/18 Sennosides [Senokot] 8.6 mg PO DAILY PRN tab 03/08/18 Allergies Allergy/AdvReac Type Severity Reaction Status Date / Time chlordiazepoxide HCl Allergy Unknown Verified 05/04/18 14:27 [From Librium] Penicillins Allergy Rash/Hives Verified 05/04/18 14:27 prochlorperazine edisylate Allergy PANIC Verified 05/04/18 14:27 [From Compazine] ATTACK prochlorperazine maleate Allergy PANIC Verified 05/04/18 14:27 [From Compazine] ATTACK ketorolac [From Toradol] AdvReac Unknown Verified 05/04/18 14:27 Review of Systems ROS Statement: Those systems with pertinent positive or pertinent negative responses have been documented in the HPI. ROS Other: All systems not noted in ROS Statement are negative. Past Medical History Past Medical History: Heart Failure, CVA/TIA, Neurologic Disorder, Osteoarthritis (OA), Pneumonia Additional Past Medical History / Comment(s): Stroke with residual right-sided weakness 2017, marfan's syndrome, ArnoldChiari malformation, spontaneous pneumothorax x 21, scoliosis and pectus excavatum secondary to Marfan's, chronic back pain, bilateral leg pain, sinus infections, STATED HAS POOR CIRCULATION, viral meningitis, HEP C. History of Any Multi-Drug Resistant Organisms: MRSA Date of last positivie culture/infection: 05/05/2010 MDRO Source:: back per patient Past Surgical History: Cardiac Valve Replacement, Coronary Bypass/CABG, Joint Replacement Additional Past Surgical History / Comment(s): right foot corrective surgery, R shoulder surgery following injury, CABG x4 vessel, aortic root graft, aortic valve replaced as child (2 separate surgeries last 10 years old), tiffani lens removed. spleenectomy 2018 Past Anesthesia/Blood Transfusion Reactions: No Reported Reaction Past Psychological History: Anxiety Smoking Status: Current every day smoker Past Alcohol Use History: None Reported Past Drug Use History: None Reported - Past Family History Father Additional Family Medical History / Comment(s): Father is with history of AIDS. Mother Family Medical History: Diabetes Mellitus Additional Family Medical History / Comment(s): Mother at age 49 from liver cirrhosis secondary to alcohol abuse. Brother(s) Additional Family Medical History / Comment(s): Patient has one brother with no major medical problems. Patient does not have any sisters. Patient does not have any children. General Exam Limitations: no limitations General appearance: alert, in no apparent distress Head exam: Present: atraumatic, normocephalic, normal inspection Eye exam: Present: normal appearance, PERRL, EOMI. Absent: scleral icterus, conjunctival injection, nystagmus, periorbital swelling, periorbital tenderness ENT exam: Present: normal exam, normal oropharynx, mucous membranes moist, normal external ear exam Neck exam: Present: normal inspection, full ROM. Absent: tenderness, meningismus, lymphadenopathy Respiratory exam: Present: normal lung sounds bilaterally. Absent: respiratory distress, wheezes, rales, rhonchi, stridor Cardiovascular Exam: Present: regular rate, normal rhythm, normal heart sounds. Absent: systolic murmur, diastolic murmur, rubs, gallop, clicks GI/Abdominal exam: Present: soft, normal bowel sounds. Absent: distended, tenderness, guarding, rebound, rigid Extremities exam: Present: full ROM (Full range of motion of lower extremities. Patient ambulates without difficulty), normal capillary refill (Capillary refill less than 2 seconds and it'll pulse 2+ in lower extremities), other ( Sensation intact in lower extremities bilaterally) Back exam: Present: full ROM (Patient has full flexion and extension of the lumbar spine), tenderness (Patient does have mild tenderness of the lumbar spine.) Neurological exam: Present: alert, oriented X3, CN II-XII intact Psychiatric exam: Present: normal affect, normal mood Course Vital Signs 05/04/18 14:24 Temperature 98.0 F Pulse Rate 78 Respiratory 18 Rate Blood Pressure 105/64 O2 Sat by Pulse 98 Oximetry Medical Decision Making - Medical Decision Making 32-year-old female presents to the emergency department for history of chronic back pain. Patient states the pain in her back and legs is stable and describes as a dull pain. Patient has history of PE and Marfan's disease. She also was diagnosed with septicemia 2 months ago. On exam no neuro deficits. Patient has full strength and lower extremity bilaterally. Neurovascular intact. Patient is ambulatory with full range of motion of the lumbar spine. Vitals are stable. According to the nurse the guardian stated she could not have any narcotics when spoken with as she has a past history of drug abuse. I offered the patient Tylenol and patient left before I could talk with attending physician about case regarding patient's extensive history. She did not tell anyone she was leaving and left AGAINST MEDICAL ADVICE. Patient likely drug seeking as she was showing drug-seeking behavior by asking for [place] and has a past history of drug abuse Disposition Clinical Impression: Back pain, chronic, Drug-seeking behavior Narrative: left without telling staff Disposition: Left Against Medical Advice Condition: Good Is patient prescribed a controlled substance at d/c from ED?: No Referrals: [facility] [Primary Care Provider] - 1-2 days Time of Disposition: 15:00
== END 2018-05-04 14:55 | disposition left against medical advice (07) ==
LOC: EC 14:07
DX: G89.29 Other chronic pain (principal); M54.5 Low back pain; Z76.5 Malingerer [conscious simulation]; M79.651 Pain in right thigh; M79.652 Pain in left thigh; Q87.40 Marfan syndrome, unspecified; Q07.00 Arnold-Chiari syndrome without spina bifida or hydrocephalus; I69.351 Hemiplegia and hemiparesis following cerebral infarction affecting right dominant side; F17.200 Nicotine dependence, unspecified, uncomplicated; Z79.01 Long term (current) use of anticoagulants; Z88.0 Allergy status to penicillin; Z88.6 Allergy status to analgesic agent; Z88.8 Allergy status to other drugs, medicaments and biological substances; Z86.14 Personal history of Methicillin resistant Staphylococcus aureus infection
CPT/HCPCS: 99283

== ENCOUNTER 2018-05-18 13:16 | Emergency (ER) | payer OTHER ==
[2018-05-18 13:28] VITALS: TEMP 98.5
--- NOTE | 2018-05-18 14:19 | XR ---
EXAMINATION TYPE: XR chest 2V DATE OF EXAM: 05/18/2018 COMPARISON: 03/06/2018 INDICATION: Fall from porch TECHNIQUE: Frontal and lateral views of the chest are obtained. FINDINGS: The heart size is enlarged. The pulmonary vasculature is normal. The lungs are clear. Scoliosis is present. Sternotomy wires are present. Previous air-fluid levels a bsent. No pneumothorax. IMPRESSION: 1. No acute pulmonary process. 2. No acute posttraumatic change is evident.
--- NOTE | 2018-05-18 14:23 | ED ---
General Adult HPI - General Chief complaint: Extremity Injury, Lower Stated complaint: fall Time Seen by Provider: 05/18/18 13:38 Source: patient, RN notes reviewed, old records reviewed Mode of arrival: ambulatory Limitations: no limitations - History of Present Illness Initial comments: This is a 32-year-old female to the ER for evaluation. Patient presents for evaluation status post fall. Patient mechanical trip and fall fall forward hitting both knees and both sides of her ribs. Patient is complaining of pain to both areas. No loss of consciousness did not hit her head has no other complaints. - Related Data Home Medications Medication Instructions Recorded Confirmed HYDROcodone/APAP 5-325MG [[place] 1 tab PO DAILY PRN 05/04/18 05/18/18 5-325] Warfarin [Coumadin] 5 mg PO HS@1800 05/04/18 05/18/18 Albuterol Inhaler [Ventolin Hfa 2 puff INHALATION RT-Q8H PRN 05/18/18 05/18/18 Inhaler] Baclofen [Lioresal] 10 mg PO QID 05/18/18 05/18/18 Cholecalciferol [Vitamin D3] 5,000 unit PO DAILY 05/18/18 05/18/18 Cyanocobalamin (Vitamin B-12) 1,000 mcg PO DAILY 05/18/18 05/18/18 [Vitamin B-12] Cyanocobalamin [Vitamin B-12 2,000 mcg SQ QMONTH 05/18/18 05/18/18 Injection] Pantoprazole [Protonix] 20 mg PO AC-BRKFST 05/18/18 05/18/18 Previous Rx's Medication Instructions Recorded DULoxetine HCL [Cymbalta] 60 mg PO DAILY capsule. 03/08/18 Ferrous Sulfate [Iron (65 MG 325 mg PO HS@2100 tab 03/08/18 Elemental)] Gabapentin [Neurontin] 100 mg PO TID cap 03/08/18 Ipratropium-Albuterol Nebulize 3 ml INHALATION RT-TID ampul.neb 03/08/18 [Duoneb 0.5 mg-3 mg/3 ml Soln] Sennosides [Senokot] 8.6 mg PO DAILY PRN tab 03/08/18 Allergies Allergy/AdvReac Type Severity Reaction Status Date / Time chlordiazepoxide HCl Allergy Unknown Verified 05/18/18 13:48 [From Librium] Penicillins Allergy Rash/Hives Verified 05/18/18 13:48 prochlorperazine edisylate Allergy PANIC Verified 05/18/18 13:48 [From Compazine] ATTACK prochlorperazine maleate Allergy PANIC Verified 05/18/18 13:48 [From Compazine] ATTACK ketorolac [From Toradol] AdvReac Unknown Verified 05/18/18 13:48 Review of Systems ROS Statement: Those systems with pertinent positive or pertinent negative responses have been documented in the HPI. ROS Other: All systems not noted in ROS Statement are negative. Past Medical History Past Medical History: Heart Failure, CVA/TIA, Neurologic Disorder, Osteoarthritis (OA), Pneumonia Additional Past Medical History / Comment(s): Stroke with residual right-sided weakness 2017, marfan's syndrome, ArnoldChiari malformation, spontaneous pneumothorax x 21, scoliosis and pectus excavatum secondary to Marfan's, chronic back pain, bilateral leg pain, sinus infections, STATED HAS POOR CIRCULATION, viral meningitis, HEP C. History of Any Multi-Drug Resistant Organisms: MRSA Date of last positivie culture/infection: 05/05/2010 MDRO Source:: back per patient Past Surgical History: Cardiac Valve Replacement, Coronary Bypass/CABG, Joint Replacement Additional Past Surgical History / Comment(s): right foot corrective surgery, R shoulder surgery following injury, CABG x4 vessel, aortic root graft, aortic valve replaced as child (2 separate surgeries last 10 years old), tiffani lens removed. spleenectomy 2018 Past Anesthesia/Blood Transfusion Reactions: No Reported Reaction Past Psychological History: Anxiety Smoking Status: Current every day smoker Past Alcohol Use History: None Reported Past Drug Use History: None Reported - Past Family History Father Additional Family Medical History / Comment(s): Father is with history of AIDS. Mother Family Medical History: Diabetes Mellitus Additional Family Medical History / Comment(s): Mother at age 49 from liver cirrhosis secondary to alcohol abuse. Brother(s) Additional Family Medical History / Comment(s): Patient has one brother with no major medical problems. Patient does not have any sisters. Patient does not have any children. General Exam Limitations: no limitations General appearance: alert, in no apparent distress Head exam: Present: atraumatic, normocephalic, normal inspection Eye exam: Present: normal appearance, PERRL, EOMI. Absent: scleral icterus, conjunctival injection, periorbital swelling ENT exam: Present: normal exam, mucous membranes moist Neck exam: Present: normal inspection. Absent: tenderness, meningismus, lymphadenopathy Respiratory exam: Present: normal lung sounds bilaterally. Absent: respiratory distress, wheezes, rales, rhonchi, stridor Cardiovascular Exam: Present: regular rate, normal rhythm, normal heart sounds. Absent: systolic murmur, diastolic murmur, rubs, gallop, clicks GI/Abdominal exam: Present: soft, normal bowel sounds. Absent: distended, tenderness, guarding, rebound, rigid Extremities exam: Present: normal inspection, full ROM, normal capillary refill. Absent: tenderness, pedal edema, joint swelling, calf tenderness Back exam: Present: normal inspection Neurological exam: Present: alert, oriented X3, CN II-XII intact Psychiatric exam: Present: normal affect, normal mood Skin exam: Present: warm, dry, intact, normal color. Absent: rash Course Vital Signs 05/18/18 13:26 Temperature 98.5 F Pulse Rate 82 Respiratory 16 Rate Blood Pressure 103/65 O2 Sat by Pulse 95 Oximetry - Reevaluation(s) Reevaluation #1: 05/18/18 14:22 Patient is in no acute distress Reevaluation #2: 05/18/18 14:22 Medical record is reviewed and patient well-known to this emergency room Medical Decision Making - Medical Decision Making -year-old female the ER status post mechanical trip and fall, patient has no significant injury and can be discharged home - Radiology Data Radiology results: report reviewed (X-ray bilateral knees and chest x-rays negative for acute disease), image reviewed Disposition Clinical Impression: Chronic pain, Fall, Contusion of knee Disposition: HOME SELF-CARE Condition: Good Instructions: Fall Prevention for Older Adults (ED) Is patient prescribed a controlled substance at d/c from ED?: No Referrals: [facility] [Primary Care Provider] - 1-2 days
[2018-05-18 14:50] VITALS: BP 122/68; PULSE 75; RESP 18
--- NOTE | 2018-05-18 15:00 | XR ---
EXAMINATION TYPE: XR knee complete bilateral DATE OF EXAM: 05/18/2018 COMPARISON: None HISTORY: Pain TECHNIQUE: Three-view bilateral knees. FINDINGS: Right knee: There is narrowing of the joint spaces. Structures are osteopenic. There is deformity of the right fibula and within the [id number]. No joint effusion is evident. Fibula appears foreshort ened on the right. Left knee: There is narrowing of the joint space. Fibula appears shortened proximal tibia with the ti brandon. The proximal fibula is within the [id number]. No joint effusion is evident. No acute fractur es. IMPRESSION: 1. Chronic changes at bilateral fibula within the [id number]. There is fusion on the left side. F ibular foreshortening bilaterally. 2. Degenerative changes bilateral knees. 3. No acute fractures evident.
== END 2018-05-18 15:28 | disposition home or self-care (01) ==
LOC: EC 13:16
DX: S80.01XA Contusion of right knee, initial encounter (principal); S80.02XA Contusion of left knee, initial encounter; G89.29 Other chronic pain; R07.81 Pleurodynia; M19.90 Unspecified osteoarthritis, unspecified site; F17.200 Nicotine dependence, unspecified, uncomplicated; Z86.73 Personal history of transient ischemic attack (TIA), and cerebral infarction without residual deficits; Z86.14 Personal history of Methicillin resistant Staphylococcus aureus infection; Z95.2 Presence of prosthetic heart valve; Z95.1 Presence of aortocoronary bypass graft; Z79.01 Long term (current) use of anticoagulants; Z79.899 Other long term (current) drug therapy; Z88.8 Allergy status to other drugs, medicaments and biological substances; Z88.0 Allergy status to penicillin; Z88.6 Allergy status to analgesic agent; W01.10XA Fall on same level from slipping, tripping and stumbling with subsequent striking against unspecified object, initial encounter
CPT/HCPCS: 71046; 99284

== ENCOUNTER 2018-05-30 10:39 | Emergency (ER) | payer OTHER ==
[2018-05-30 10:49] VITALS: RESP 18
--- NOTE | 2018-05-30 11:22 | ED ---
General Adult HPI - General Chief complaint: Extremity Problem,Nontraumatic Stated complaint: rt ankle swelling Time Seen by Provider: 05/30/18 10:45 Source: patient, RN notes reviewed Mode of arrival: ambulatory Limitations: no limitations - History of Present Illness Initial comments: This is a 32-year-old female presents emergency Department complaining of right lateral ankle pain. Patient states is mildly swollen on the ankle as well. Patient states palpating that lateral aspect of her ankle is tender. Patient states she did fall 3 days ago. Patient denies any swelling above the ankle. Patient denies any calf tenderness. Patient states she is on Coumadin and has been taking it. Patient denies any fevers or chills. Patient denies any other injury at this time. Patient denies any knee pain or hip pain or any foot pain. - Related Data Home Medications Medication Instructions Recorded Confirmed HYDROcodone/APAP 5-325MG [[place] 1 tab PO DAILY PRN 05/04/18 05/18/18 5-325] Warfarin [Coumadin] 5 mg PO HS@1800 05/04/18 05/18/18 Albuterol Inhaler [Ventolin Hfa 2 puff INHALATION RT-Q8H PRN 05/18/18 05/18/18 Inhaler] Baclofen [Lioresal] 10 mg PO QID 05/18/18 05/18/18 Cholecalciferol [Vitamin D3] 5,000 unit PO DAILY 05/18/18 05/18/18 Cyanocobalamin (Vitamin B-12) 1,000 mcg PO DAILY 05/18/18 05/18/18 [Vitamin B-12] Cyanocobalamin [Vitamin B-12 2,000 mcg SQ QMONTH 05/18/18 05/18/18 Injection] Pantoprazole [Protonix] 20 mg PO AC-BRKFST 05/18/18 05/18/18 Previous Rx's Medication Instructions Recorded DULoxetine HCL [Cymbalta] 60 mg PO DAILY capsule. 03/08/18 Ferrous Sulfate [Iron (65 MG 325 mg PO HS@2100 tab 03/08/18 Elemental)] Gabapentin [Neurontin] 100 mg PO TID cap 03/08/18 Ipratropium-Albuterol Nebulize 3 ml INHALATION RT-TID ampul.neb 03/08/18 [Duoneb 0.5 mg-3 mg/3 ml Soln] Sennosides [Senokot] 8.6 mg PO DAILY PRN tab 03/08/18 Allergies Allergy/AdvReac Type Severity Reaction Status Date / Time chlordiazepoxide HCl Allergy Unknown Verified 05/30/18 10:49 [From Librium] Penicillins Allergy Rash/Hives Verified 05/30/18 10:49 prochlorperazine edisylate Allergy PANIC Verified 05/30/18 10:49 [From Compazine] ATTACK prochlorperazine maleate Allergy PANIC Verified 05/30/18 10:49 [From Compazine] ATTACK ketorolac [From Toradol] AdvReac Unknown Verified 05/30/18 10:49 Review of Systems ROS Statement: Those systems with pertinent positive or pertinent negative responses have been documented in the HPI. ROS Other: All systems not noted in ROS Statement are negative. Past Medical History Past Medical History: Heart Failure, CVA/TIA, Neurologic Disorder, Osteoarthritis (OA), Pneumonia Additional Past Medical History / Comment(s): Stroke with residual right-sided weakness 2017, marfan's syndrome, ArnoldChiari malformation, spontaneous pneumothorax x 21, scoliosis and pectus excavatum secondary to Marfan's, chronic back pain, bilateral leg pain, sinus infections, STATED HAS POOR CIRCULATION, viral meningitis, HEP C. History of Any Multi-Drug Resistant Organisms: MRSA Date of last positivie culture/infection: 05/05/2010 MDRO Source:: back per patient Past Surgical History: Cardiac Valve Replacement, Coronary Bypass/CABG, Joint Replacement Additional Past Surgical History / Comment(s): right foot corrective surgery, R shoulder surgery following injury, CABG x4 vessel, aortic root graft, aortic valve replaced as child (2 separate surgeries last 10 years old), tiffani lens removed. spleenectomy 2018 Past Anesthesia/Blood Transfusion Reactions: No Reported Reaction Past Psychological History: Anxiety Smoking Status: Current every day smoker Past Alcohol Use History: None Reported Past Drug Use History: None Reported - Past Family History Father Additional Family Medical History / Comment(s): Father is with history of AIDS. Mother Family Medical History: Diabetes Mellitus Additional Family Medical History / Comment(s): Mother at age 49 from liver cirrhosis secondary to alcohol abuse. Brother(s) Additional Family Medical History / Comment(s): Patient has one brother with no major medical problems. Patient does not have any sisters. Patient does not have any children. General Exam Limitations: no limitations Course Vital Signs 05/30/18 10:46 Temperature 97.6 F Pulse Rate 71 Respiratory 18 Rate Blood Pressure 104/60 O2 Sat by Pulse 94 L Oximetry Medical Decision Making - Medical Decision Making X-ray shows no acute fracture. Patient's INR was 3.0. - Lab Data Lab Results 05/30/18 Range/Units 11:40 PT 26.6 H (9.0-12.0) sec INR 3.0 H (<1.2) Disposition Clinical Impression: Right ankle sprain Disposition: HOME SELF-CARE Instructions: Ankle Sprain (ED) Is patient prescribed a controlled substance at d/c from ED?: No Referrals: [facility] [Primary Care Provider] - 1-2 days Time of Disposition: 12:27
[2018-05-30 12:16] LABS: Prothrombin Time 26.6 sec (9.0-12.0)
--- NOTE | 2018-05-30 12:26 | XR ---
EXAMINATION TYPE: XR ankle complete RT DATE OF EXAM: 05/30/2018 COMPARISON: 03/02/2018 HISTORY: 32-year-old female right ankle swelling and pain TECHNIQUE: 3 views FINDINGS: There is circumferential soft tissue swelling. Somewhat gracile appearance to the diaphyses. Suspect underlying joint effusion. Osteopenia. No acute fracture, subluxation, or dislocation is seen. Partia lly visualized plate and screw fixation at the first MTP joint. IMPRESSION: Circumferential soft tissue swelling and suspected underlying ankle joint effusion. Osteopenia. No ac enterprise osseous abnormality seen. Gracile appearance to the diaphyses. Correlate for any chronic immobilization or congenital neuromusc ular disorder.
[2018-05-30 12:41] VITALS: BP 102/58; PULSE 70; TEMP 97.2
== END 2018-05-30 12:35 | disposition home or self-care (01) ==
LOC: EC 10:39
DX: S93.401A Sprain of unspecified ligament of right ankle, initial encounter (principal); M19.90 Unspecified osteoarthritis, unspecified site; F41.9 Anxiety disorder, unspecified; Q07.00 Arnold-Chiari syndrome without spina bifida or hydrocephalus; F17.200 Nicotine dependence, unspecified, uncomplicated; Z86.73 Personal history of transient ischemic attack (TIA), and cerebral infarction without residual deficits; Z86.14 Personal history of Methicillin resistant Staphylococcus aureus infection; Z95.2 Presence of prosthetic heart valve; Z95.1 Presence of aortocoronary bypass graft; Z98.890 Other specified postprocedural states; Z79.01 Long term (current) use of anticoagulants; Z79.899 Other long term (current) drug therapy; Z88.0 Allergy status to penicillin; Z88.6 Allergy status to analgesic agent; Z88.8 Allergy status to other drugs, medicaments and biological substances; W19.XXXA Unspecified fall, initial encounter
CPT/HCPCS: 36415; 85610; 99283

== ENCOUNTER 2018-06-02 16:12 | Emergency (ER) | payer OTHER ==
[2018-06-02] MEDS ORDERED: ORPHENADRINE 30 MG/ML 2 ML VIAL IM STA (17:02)
[2018-06-02] MEDS ORDERED: KETOROLAC 60 MG/2 ML VIAL IM STA (17:02)
--- NOTE | 2018-06-02 17:33 | ED ---
Back Pain HPI - General Chief Complaint: Back Pain/Injury Stated Complaint: Back & Leg Pain Time Seen by Provider: 06/02/18 16:34 Source: patient, RN notes reviewed, old records reviewed Limitations: no limitations - History of Present Illness Initial Comments: 32-year-old female wanted emergency department today presents emergency Department chief complaint chronic pain exacerbation. She denies pain in her back, headache as well as pain with intermittent ankle. She reports that she felt just her right ankle a few days ago. She was seen in the emergency department evaluated. X-rays at that time were negative for any acute process. Patient states that she has been able to walk on it. Patient reports that she is taking her prescribed [place] from her PCP. Patient states that she's had no other complaints at this time. - Related Data Home Medications Medication Instructions Recorded Confirmed HYDROcodone/APAP 5-325MG [[place] 1 tab PO DAILY PRN 05/04/18 06/02/18 5-325] Warfarin [Coumadin] 5 mg PO HS@1800 05/04/18 06/02/18 Albuterol Inhaler [Ventolin Hfa 2 puff INHALATION RT-Q8H PRN 05/18/18 06/02/18 Inhaler] Baclofen [Lioresal] 10 mg PO QID 05/18/18 06/02/18 Cholecalciferol [Vitamin D3] 5,000 unit PO DAILY 05/18/18 06/02/18 Cyanocobalamin (Vitamin B-12) 1,000 mcg PO DAILY 05/18/18 06/02/18 [Vitamin B-12] Cyanocobalamin [Vitamin B-12 2,000 mcg SQ QMONTH 05/18/18 06/02/18 Injection] Pantoprazole [Protonix] 20 mg PO AC-[id number] 05/18/18 06/02/18 Previous Rx's Medication Instructions Recorded DULoxetine HCL [Cymbalta] 60 mg PO DAILY capsule. 03/08/18 Ferrous Sulfate [Iron (65 MG 325 mg PO HS@2100 tab 03/08/18 Elemental)] Gabapentin [Neurontin] 100 mg PO TID cap 03/08/18 Ipratropium-Albuterol Nebulize 3 ml INHALATION RT-TID ampul.neb 03/08/18 [Duoneb 0.5 mg-3 mg/3 ml Soln] Sennosides [Senokot] 8.6 mg PO DAILY PRN tab 03/08/18 Allergies Allergy/AdvReac Type Severity Reaction Status Date / Time chlordiazepoxide HCl Allergy Unknown Verified 06/02/18 16:27 [From Librium] Penicillins Allergy Rash/Hives Verified 06/02/18 16:27 prochlorperazine edisylate Allergy PANIC Verified 06/02/18 16:27 [From Compazine] ATTACK prochlorperazine maleate Allergy PANIC Verified 06/02/18 16:27 [From Compazine] ATTACK ketorolac [From Toradol] AdvReac Unknown Verified 06/02/18 16:27 Review of Systems ROS Statement: Those systems with pertinent positive or pertinent negative responses have been documented in the HPI. ROS Other: All systems not noted in ROS Statement are negative. Past Medical History Past Medical History: Heart Failure, CVA/TIA, Neurologic Disorder, Osteoarthritis (OA), Pneumonia Additional Past Medical History / Comment(s): Stroke with residual right-sided weakness 2017, marfan's syndrome, ArnoldChiari malformation, spontaneous pneumothorax x 21, scoliosis and pectus excavatum secondary to Marfan's, chronic back pain, bilateral leg pain, sinus infections, STATED HAS POOR CIRCULATION, viral meningitis, HEP C. History of Any Multi-Drug Resistant Organisms: MRSA Date of last positivie culture/infection: 05/05/2010 MDRO Source:: back per patient Past Surgical History: Cardiac Valve Replacement, Coronary Bypass/CABG, Joint Replacement Additional Past Surgical History / Comment(s): right foot corrective surgery, R shoulder surgery following injury, CABG x4 vessel, aortic root graft, aortic valve replaced as child (2 separate surgeries last 10 years old), tiffani lens removed. spleenectomy 2018 Past Anesthesia/Blood Transfusion Reactions: No Reported Reaction Past Psychological History: Anxiety Smoking Status: Current every day smoker Past Alcohol Use History: None Reported Past Drug Use History: None Reported - Past Family History Father Additional Family Medical History / Comment(s): Father is with history of AIDS. Mother Family Medical History: Diabetes Mellitus Additional Family Medical History / Comment(s): Mother at age 49 from liver cirrhosis secondary to alcohol abuse. Brother(s) Additional Family Medical History / Comment(s): Patient has one brother with no major medical problems. Patient does not have any sisters. Patient does not have any children. General Exam - General Exam Comments Initial Comments: 32-year-old female. Alert and oriented 3. No acute distress. Body characters is consistent with Marfan syndrome including elongated fingers and limbs. Limitations: no limitations General appearance: alert, in no apparent distress Head exam: Present: atraumatic, normocephalic, normal inspection Eye exam: Present: normal appearance, EOMI. Absent: PERRL (Patient has history of eye surgeries. Pupils are consistent with her), scleral icterus, conjunctival injection, periorbital swelling ENT exam: Present: normal exam, mucous membranes moist Neck exam: Present: normal inspection. Absent: tenderness, meningismus, lymphadenopathy Respiratory exam: Present: normal lung sounds bilaterally. Absent: respiratory distress, wheezes, rales, rhonchi, stridor Cardiovascular Exam: Present: regular rate, normal rhythm, normal heart sounds, other (Scars over the anterior chest wall.). Absent: systolic murmur, diastolic murmur, rubs, gallop, clicks GI/Abdominal exam: Present: soft, normal bowel sounds, other (Evidence of scar over the mid abdomen from her previous surgery of splenectomy.). Absent: distended, tenderness, guarding, rebound, rigid Back exam: Present: normal inspection, other (Curvature scoliosis.) Neurological exam: Present: alert, oriented X3, CN II-XII intact Psychiatric exam: Present: normal affect Skin exam: Present: warm, dry, intact, normal color. Absent: rash Course Vital Signs 06/02/18 06/02/18 16:27 17:40 Temperature 97.2 F L 97.9 F Pulse Rate 72 94 Respiratory 20 18 Rate Blood Pressure 132/64 148/88 O2 Sat by Pulse 100 97 Oximetry Medical Decision Making - Medical Decision Making 32-year-old female present to chronic pain exacerbation. She is not known to emergency department. She has no acute complaints. She was chronic back pain she states she's had these headaches for many years. I discussed this will note for further x-rays or imaging. Her patient's complaints are chronic. She has no focal neurological findings. Right ankle appears well. The swelling is diminished from previously in the week. At this time Patient is ambulating without difficulty. Discussed giving the Patient and IM injection of Toradol and Norflex. She has chronic history of opiate addiction. Will not prescribe her any narcotics. Patient agrees and is cooperative. She was discharged after receiving IM Norflex and Toradol. Disposition Clinical Impression: Chronic back pain, Ankle sprain, Chronic headache Disposition: HOME SELF-CARE Condition: Good Instructions: Chronic Back Pain (ED) Additional Instructions: Follow-up with primary care physician. Return to emergency department if any alarming signs or symptoms occur. Is patient prescribed a controlled substance at d/c from ED?: No Referrals: [facility] [Primary Care Provider] - 1-2 days Time of Disposition: 17:32
[2018-06-02 17:44] VITALS: BP 148/88; PULSE 94; RESP 18; TEMP 97.9
== END 2018-06-02 17:40 | disposition home or self-care (01) ==
LOC: EC 16:12
DX: S93.409A Sprain of unspecified ligament of unspecified ankle, initial encounter (principal); G89.29 Other chronic pain; M54.9 Dorsalgia, unspecified; R51 Headache; Q87.40 Marfan syndrome, unspecified; M41.9 Scoliosis, unspecified; Q07.00 Arnold-Chiari syndrome without spina bifida or hydrocephalus; I69.351 Hemiplegia and hemiparesis following cerebral infarction affecting right dominant side; F17.200 Nicotine dependence, unspecified, uncomplicated; Z88.0 Allergy status to penicillin; Z88.6 Allergy status to analgesic agent; Z88.8 Allergy status to other drugs, medicaments and biological substances; Z79.01 Long term (current) use of anticoagulants; Z79.899 Other long term (current) drug therapy; Z86.14 Personal history of Methicillin resistant Staphylococcus aureus infection; Z90.81 Acquired absence of spleen
CPT/HCPCS: 99283; 96372 ×2; J2360; J1885

== ENCOUNTER 2018-06-04 14:45 | Emergency (ER) | payer OTHER ==
[2018-06-04 15:18] VITALS: BP 150/88; PULSE 93; RESP 18; TEMP 98.2
[2018-06-04] MEDS ORDERED: KETOROLAC 30 MG/ML 1 ML VIAL IM STA (16:00)
[2018-06-04] MEDS ORDERED: ORPHENADRINE 30 MG/ML 2 ML VIAL IM STA (16:00)
--- NOTE | 2018-06-04 16:03 | ED ---
Back Pain HPI - General Chief Complaint: Back Pain/Injury Stated Complaint: leg & back pain/norco withdrawal Time Seen by Provider: 06/04/18 15:20 Source: patient Limitations: no limitations - History of Present Illness Initial Comments: 32-year-old female patient with a past medical history significant for Marfan's scoliosis, and chronic back pain presents to the emergency department today for evaluation of increased low back pain with radiation down her legs. Patient states generally she takes [place] for her symptoms however she has been out for the last 4-5 days. Patient states she has been taking ibuprofen for the pain without much relief of symptoms. She denies any new numbness or tingling to her lower extremities. Denies any saddle anesthesia or loss of bowel or bladder control. Patient states her symptoms are not different than her usual pain however they are worse because she is out of her medication. She denies any fever, chills, hematuria, dysuria, urinary frequency, urinary urgency. Denies any abnormal vaginal bleeding or discharge. Denies any abdominal pain. Patient denies any recent rash, shortness breath, chest pain, nausea, vomiting, diarrhea, constipation, dizziness, weakness, headache, visual changes, or any other complaints. - Related Data Home Medications Medication Instructions Recorded Confirmed Warfarin [Coumadin] 5 mg PO HS@1800 05/04/18 06/04/18 Albuterol Inhaler [Ventolin Hfa 2 puff INHALATION RT-Q8H PRN 05/18/18 06/04/18 Inhaler] Baclofen [Lioresal] 10 mg PO QID 05/18/18 06/04/18 Cholecalciferol [Vitamin D3] 5,000 unit PO DAILY 05/18/18 06/04/18 Cyanocobalamin (Vitamin B-12) 1,000 mcg PO DAILY 05/18/18 06/04/18 [Vitamin B-12] Acetaminophen [Tylenol] 1,000 mg PO Q4-6H PRN 06/04/18 06/04/18 Furosemide [Lasix] 20 mg PO DAILY 06/04/18 06/04/18 Ipratropium-Albuterol Nebulize 3 ml INHALATION RT-TID PRN 06/04/18 06/04/18 [Duoneb 0.5 mg-3 mg/3 ml Soln] Metoprolol Tartrate 25 mg PO DAILY 06/04/18 06/04/18 Previous Rx's Medication Instructions Recorded Ferrous Sulfate [Iron (65 MG 325 mg PO HS@2100 tab 03/08/18 Elemental)] Gabapentin [Neurontin] 100 mg PO TID cap 03/08/18 Allergies Allergy/AdvReac Type Severity Reaction Status Date / Time chlordiazepoxide HCl Allergy Unknown Verified 06/04/18 15:48 [From Librium] Penicillins Allergy Rash/Hives Verified 06/04/18 15:48 prochlorperazine edisylate Allergy PANIC Verified 06/04/18 15:48 [From Compazine] ATTACK prochlorperazine maleate Allergy PANIC Verified 06/04/18 15:48 [From Compazine] ATTACK ketorolac [From Toradol] AdvReac Unknown Verified 06/04/18 15:48 Review of Systems ROS Statement: Those systems with pertinent positive or pertinent negative responses have been documented in the HPI. ROS Other: All systems not noted in ROS Statement are negative. Past Medical History Past Medical History: Heart Failure, CVA/TIA, Neurologic Disorder, Osteoarthritis (OA), Pneumonia Additional Past Medical History / Comment(s): Stroke with residual right-sided weakness 2017, marfan's syndrome, ArnoldChiari malformation, spontaneous pneumothorax x 21, scoliosis and pectus excavatum secondary to Marfan's, chronic back pain, bilateral leg pain, sinus infections, STATED HAS POOR CIRCULATION, viral meningitis, HEP C. History of Any Multi-Drug Resistant Organisms: MRSA Date of last positivie culture/infection: 05/05/2010 MDRO Source:: back per patient Past Surgical History: Cardiac Valve Replacement, Coronary Bypass/CABG, Joint Replacement Additional Past Surgical History / Comment(s): right foot corrective surgery, R shoulder surgery following injury, CABG x4 vessel, aortic root graft, aortic valve replaced as child (2 separate surgeries last 10 years old), tiffani lens removed. spleenectomy 2018 Past Anesthesia/Blood Transfusion Reactions: No Reported Reaction Past Psychological History: Anxiety Smoking Status: Current every day smoker Past Alcohol Use History: None Reported Past Drug Use History: None Reported - Past Family History Father Additional Family Medical History / Comment(s): Father is with history of AIDS. Mother Family Medical History: Diabetes Mellitus Additional Family Medical History / Comment(s): Mother at age 49 from liver cirrhosis secondary to alcohol abuse. Brother(s) Additional Family Medical History / Comment(s): Patient has one brother with no major medical problems. Patient does not have any sisters. Patient does not have any children. General Exam Limitations: no limitations General appearance: alert, in no apparent distress, other (This is a well- developed, thin appearing adult female patient in no acute distress. Vital signs upon presentation are temperature 98.2F, pulse 93, respirations 18, blood pressure 150/88, pulse ox 96% on room air.) Eye exam: Present: normal appearance, PERRL, EOMI. Absent: scleral icterus, conjunctival injection, periorbital swelling ENT exam: Present: normal exam, normal oropharynx, mucous membranes moist Respiratory exam: Present: normal lung sounds bilaterally. Absent: respiratory distress, wheezes, rales, rhonchi, stridor Cardiovascular Exam: Present: regular rate, normal rhythm, normal heart sounds. Absent: systolic murmur, diastolic murmur, rubs, gallop, clicks GI/Abdominal exam: Present: soft, normal bowel sounds. Absent: distended, tenderness, guarding, rebound, rigid Back exam: Present: normal inspection. Absent: vertebral tenderness Neurological exam: Present: alert, oriented X3, CN II-XII intact, other ( Strength in the lower eduction raises 5/5.) Psychiatric exam: Present: normal affect, normal mood Skin exam: Present: warm, dry, intact, normal color. Absent: rash Course Vital Signs 06/04/18 15:15 Temperature 98.2 F Pulse Rate 93 Respiratory 18 Rate Blood Pressure 150/88 O2 Sat by Pulse 96 Oximetry Medical Decision Making - Medical Decision Making 32-year-old female patient presents the emergency department today for complaints of increased low back pain. Physical examination was unremarkable. Patient is not having any new symptoms, states that this is just a worsening of her chronic low back pain issues due to being out of her [place]. Patient will be given IM Toradol and Norflex injections. She does have a baclofen at home. She is instructed to follow-up with her primary care physician for refills on her medication. Return parameters discussed in detail. She verbalizes understanding and agreed with this plan. Disposition Clinical Impression: Acute exacerbation of chronic low back pain Disposition: HOME SELF-CARE Condition: Good Instructions: Chronic Back Pain (ED) Additional Instructions: Apply warm moist heat to the low back. Perform gentle range of motion exercises. Follow-up through primary care physician for refills of your home medications. Return here immediately for any new, worsening, or concerning symptoms. Is patient prescribed a controlled substance at d/c from ED?: No Referrals: [facility] [Primary Care Provider] - 1-2 days Time of Disposition: 16:03
== END 2018-06-04 16:25 | disposition home or self-care (01) ==
LOC: EC 14:45
DX: M54.5 Low back pain (principal); G89.29 Other chronic pain; I50.9 Heart failure, unspecified; M19.90 Unspecified osteoarthritis, unspecified site; M41.9 Scoliosis, unspecified; Q87.40 Marfan syndrome, unspecified; F17.200 Nicotine dependence, unspecified, uncomplicated; Z79.01 Long term (current) use of anticoagulants; Z79.899 Other long term (current) drug therapy; Z88.0 Allergy status to penicillin; Z88.8 Allergy status to other drugs, medicaments and biological substances; Z88.6 Allergy status to analgesic agent; Z86.14 Personal history of Methicillin resistant Staphylococcus aureus infection; Z86.73 Personal history of transient ischemic attack (TIA), and cerebral infarction without residual deficits; Z86.19 Personal history of other infectious and parasitic diseases; Z95.5 Presence of coronary angioplasty implant and graft
CPT/HCPCS: 99283; 96372 ×2; J2360; J1885

== ENCOUNTER 2018-06-14 17:12 | Inpatient (IN) | payer OTHER ==
[2018-06-14] MEDS ORDERED: ACETAMINOPHEN TAB 500 MG TAB PO STA (18:15)
[2018-06-14] MEDS ORDERED: KETOROLAC 30 MG/ML 1 ML VIAL IVP STA (18:15)
[2018-06-14] MEDS ORDERED: ONDANSETRON 4 MG/2 ML VIAL IVP STA (18:19)
--- NOTE | 2018-06-14 18:21 | ED ---
Dizziness HPI <Armando You - Last Filed: 06/14/18 21:46> - General Source: patient Mode of arrival: ambulatory Limitations: no limitations <Raina Hightower - Last Filed: 06/15/18 04:06> - General Chief Complaint: Dizziness Stated Complaint: VOMITING, POSS SEPSIS Time Seen by Provider: 06/14/18 18:06 - History of Present Illness Initial Comments: 32-year-old female patient with past medical history for heart failure, CVA, Marfan syndrome, scoliosis, and recent splenectomy presents to the emergency department today for evaluation of dizziness and vomiting. Patient states that she was seen and evaluated at [facility] yesterday where they wanted to admit her for sepsis however she became anxious and upset and left AGAINST MEDICAL ADVICE. Patient states that she is not feeling any better today so she presented here for further evaluation. Patient reports that she becomes lightheaded whenever she stands up. Reportedly patient's blood pressure was low in the 70s over 30s while in the emergency department at [facility] yesterday. Today she has been nauseated and has had several episodes of vomiting prior to arrival. Patient states that she is also having some suprapubic abdominal discomfort and painful urination. She denies any frequency or urgency of urination. Patient denies any fevers or chills. States that she has had a cough for the last week, she is coughing up yellow sputum. She denies any nasal congestion or sore throat. She is also reporting increased leg pain and low back pain which is chronic for her. Patient denies any recent rash, shortness breath, chest pain, diarrhea, constipation, headache , visual changes, or any other complaints. (Raina Hightower) - Related Data Home Medications Medication Instructions Recorded Confirmed Warfarin [Coumadin] 5 mg PO DAILY 05/04/18 06/14/18 Albuterol Inhaler [Ventolin Hfa 2 puff INHALATION RT-Q8H PRN 05/18/18 06/14/18 Inhaler] Baclofen [Lioresal] 10 mg PO QID 05/18/18 06/14/18 Cholecalciferol [Vitamin D3] 5,000 unit PO DAILY 05/18/18 06/14/18 Cyanocobalamin (Vitamin B-12) 1,000 mcg PO DAILY 05/18/18 06/14/18 [Vitamin B-12] Furosemide [Lasix] 20 mg PO DAILY 06/04/18 06/14/18 Ipratropium-Albuterol Nebulize 3 ml INHALATION RT-TID PRN 06/04/18 06/14/18 [Duoneb 0.5 mg-3 mg/3 ml Soln] Metoprolol Tartrate 25 mg PO BID 06/04/18 06/14/18 DULoxetine HCL [Cymbalta] 60 mg PO DAILY 06/14/18 06/14/18 Ferrous Sulfate [Iron (65 MG 325 mg PO HS 06/14/18 06/14/18 Elemental)] OLANZapine [ZyPREXA] 10 mg PO HS 06/14/18 06/14/18 Pantoprazole Sodium [Protonix] 20 mg PO DAILY 06/14/18 06/14/18 Sennosides [Senna] 8.6 mg PO DAILY PRN 06/14/18 06/14/18 Previous Rx's Medication Instructions Recorded Gabapentin [Neurontin] 100 mg PO TID cap 03/08/18 Allergies Allergy/AdvReac Type Severity Reaction Status Date / Time chlordiazepoxide HCl Allergy Unknown Verified 06/14/18 17:37 [From Librium] Penicillins Allergy Rash/Hives Verified 06/14/18 17:37 prochlorperazine edisylate Allergy PANIC Verified 06/14/18 17:37 [From Compazine] ATTACK prochlorperazine maleate Allergy PANIC Verified 06/14/18 17:37 [From Compazine] ATTACK ketorolac [From Toradol] AdvReac Unknown Verified 06/14/18 17:37 Review of Systems ROS Other: All systems not noted in ROS Statement are negative. <Armando You - Last Filed: 06/14/18 21:46> ROS Other: All systems not noted in ROS Statement are negative. <Raina Hightower - Last Filed: 06/15/18 04:06> ROS Statement: Those systems with pertinent positive or pertinent negative responses have been documented in the HPI. Past Medical History Past Medical History: Heart Failure, CVA/TIA, Neurologic Disorder, Osteoarthritis (OA), Pneumonia Additional Past Medical History / Comment(s): Stroke with residual right-sided weakness 2017, marfan's syndrome, ArnoldChiari malformation, spontaneous pneumothorax x 21, scoliosis and pectus excavatum secondary to Marfan's, chronic back pain, bilateral leg pain, sinus infections, STATED HAS POOR CIRCULATION, viral meningitis, HEP C. History of Any Multi-Drug Resistant Organisms: MRSA Date of last positivie culture/infection: 05/05/2010 MDRO Source:: back per patient Past Surgical History: Cardiac Valve Replacement, Coronary Bypass/CABG, Joint Replacement Additional Past Surgical History / Comment(s): right foot corrective surgery, R shoulder surgery following injury, CABG x4 vessel, aortic root graft, aortic valve replaced as child (2 separate surgeries last 10 years old), tiffani lens removed. spleenectomy 2018 Past Anesthesia/Blood Transfusion Reactions: No Reported Reaction Past Psychological History: Anxiety Smoking Status: Current every day smoker Past Alcohol Use History: None Reported Past Drug Use History: None Reported - Past Family History Father Additional Family Medical History / Comment(s): Father is with history of AIDS. Mother Family Medical History: Diabetes Mellitus Additional Family Medical History / Comment(s): Mother at age 49 from liver cirrhosis secondary to alcohol abuse. Brother(s) Additional Family Medical History / Comment(s): Patient has one brother with no major medical problems. Patient does not have any sisters. Patient does not have any children. <Raina Hightower - Last Filed: 06/15/18 04:06> General Exam Limitations: no limitations General appearance: alert, in no apparent distress, other (This is a thin appearing adult female patient in no acute distress. Vital signs upon presentation are temperature 97.8F, pulse 76, respirations 18, blood pressure 120/72, pulse ox 100% on room air.) Eye exam: Present: normal appearance, PERRL, EOMI. Absent: scleral icterus, conjunctival injection, periorbital swelling ENT exam: Present: normal exam, normal oropharynx, mucous membranes moist Respiratory exam: Present: wheezes (This has wheezing and bilateral posterior lung bases). Absent: normal lung sounds bilaterally, respiratory distress, rales, rhonchi, stridor Cardiovascular Exam: Present: regular rate, normal rhythm, normal heart sounds. Absent: systolic murmur, diastolic murmur, rubs, gallop, clicks GI/Abdominal exam: Present: soft, tenderness (Suprapubic tenderness), normal bowel sounds. Absent: distended, guarding, rebound, rigid Neurological exam: Present: alert, oriented X3, CN II-XII intact Psychiatric exam: Present: normal affect, normal mood Skin exam: Present: warm, dry, intact, normal color. Absent: rash <Raina Hightower - Last Filed: 06/15/18 04:06> Vital Signs 06/14/18 06/14/18 06/14/18 17:20 18:40 19:29 Temperature 97.8 F 97.8 F Pulse Rate 76 71 68 Respiratory 18 20 15 Rate Blood Pressure 120/72 117/74 93/54 O2 Sat by Pulse 100 98 96 Oximetry 06/14/18 06/14/18 06/14/18 20:32 20:42 20:47 Temperature Pulse Rate Respiratory 10 L 10 L 12 Rate Blood Pressure O2 Sat by Pulse Oximetry 06/14/18 06/14/18 06/14/18 21:25 21:39 22:09 Temperature 97.7 F Pulse Rate 74 77 Respiratory 14 14 Rate Blood Pressure 200/95 171/80 180/81 O2 Sat by Pulse 100 100 100 Oximetry 06/14/18 06/14/18 06/14/18 22:49 23:23 23:37 Temperature Pulse Rate 64 67 Respiratory 14 14 Rate Blood Pressure 120/61 102/55 142/66 O2 Sat by Pulse 100 98 Oximetry 06/15/18 00:00 Temperature Pulse Rate 66 Respiratory 14 Rate Blood Pressure 111/56 O2 Sat by Pulse 99 Oximetry EKG Findings - EKG Comments: EKG Findings:: EKG obtained at 1834 shows normal sinus rhythm with a prolonged QT interval. Ventricular rate is 70, IN interval 186, QRS duration 114, QTC 436 , QTC 470. No evidence of ST elevation or depression. EKG obtained at 2053 shows normal sinus rhythm with a ventricular rate of 88, IN interval 208, QRS duration 104, QT 394, QTC 476. No evidence of ST elevation or depression however exam is limited by artifact. <Raina Hightower - Last Filed: 06/15/18 04:06> Procedures - Central Line Placement Right Femoral Consent Obtained: verbal consent Time Out Performed: Yes Patient Placed on Monitor/Pulse Ox: Yes MD Prep: mask, gown, gloves Central Line Prep: Povidone-Iodine 1% Ultrasound Used for Placement: Yes Central Line Lumen Inserted: triple Bloods Obtained for Lab: No Central Line Position: good blood return, all ports aspirated, flushed, capped, sutured in place with 3-0 nylon Dressing Applied: Tegaderm Post Procedure X-Ray: tip of catheter in good position Patient Tolerated Procedure: well Complications: none - Intubation Time Out Performed: Yes Sedative: Etomidate Mg Given: 20 Paralytic: Rocuronium Mg Given: 50 Laryngoscope: fiber optic video scope Size: 3 Assist Device Used: Bougie ET Tube Size: 6 ET Tube Uncuffed: Yes Tube Secured Depth (cm): 20 Tube Secured Location: lips Tube Placement Confirmation: visualized tube passing through cords, equal breath sounds bilaterally, no breath sounds over epigastrium, confirmation by capnometry Patient Tolerated Procedure: well Intubation Complications: difficult intubation <Armando You - Last Filed: 06/14/18 21:46> Medical Decision Making - Lab Data Result diagrams: 06/14/18 18:05 06/14/18 18:05 <Armando You - Last Filed: 06/14/18 21:46> - Lab Data Result diagrams: 06/14/18 18:05 06/14/18 18:05 - Radiology Data Radiology results: report reviewed, image reviewed <Raina Hightower - Last Filed: 06/15/18 04:06> - Medical Decision Making 32-year-old female patient with an extensive past medical history presented to the emergency department today for complaints of dizziness and vomiting. Patient had been seen and evaluated at [facility] yesterday and was having persistent low blood pressures, they wanted to admit her for hypotension and possibility of sepsis with urinary tract infection. Initial physical examination was unremarkable. Patient was alert and oriented. She was neurologically intact other than some residual deficits to the right side from previous CVA. She was complaining of low back pain and leg pain which is not unusual for her. Initial lab workup was unremarkable she had mildly elevated white blood cell count at 11,000. Urinalysis had 16 white blood cells however there was also 16 squamous epithelial cells, this has been sent for culture. While being monitored in the emergency department she had an acute change in mental status, she was lethargic and not responding appropriately. 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 Blood sugar was obtained, result 61, dextrose given without change in mentation. EKG was repeated and showed no acute changes. My attending Dr. You was in to evaluate the patient and felt it necessary to intubate. We did perform CT of the brain which showed no acute abnormalities. Repeated drug screen which showed no positive results. Patient will be admitted to the ICU for further monitoring and evaluation. (Raina Hightower) - Lab Data Lab Results 06/14/18 06/14/18 06/14/18 Range/Units 18:05 18:05 18:05 WBC 10.9 H (3.8-10.6) k/uL RBC 5.24 (3.80-5.40) m/uL Hgb 14.7 (11.4-16.0) gm/dL Hct 48.2 H (34.0-46.0) % MCV 91.9 (80.0-100.0) fL MCH 28.0 (25.0-35.0) pg MCHC 30.5 L (31.0-37.0) g/dL RDW 19.0 H (11.5-15.5) % Plt Count 320 (150-450) k/uL Neutrophils % 64 % Lymphocytes % 26 % Monocytes % 5 % Eosinophils % 3 % Basophils % 1 % Neutrophils # 6.9 (1.3-7.7) k/uL Lymphocytes # 2.8 (1.0-4.8) k/uL Monocytes # 0.6 (0-1.0) k/uL Eosinophils # 0.3 (0-0.7) k/uL Basophils # 0.1 (0-0.2) k/uL Hypochromasia Moderate Anisocytosis Slight PT (9.0-12.0) sec INR (<1.2) APTT (22.0-30.0) sec Sample Site ABG pH (7.35-7.45) ABG pCO2 (35-45) mmHg ABG pO2 (83-108) mmHg ABG HCO3 (21-25) mmol/L ABG Total CO2 (19-24) mmol/L ABG O2 Saturation (94-97) % ABG Base Excess mmol/L Epifanio Test FiO2 % Sodium 141 (137-145) mmol/L Potassium 3.8 (3.5-5.1) mmol/L Chloride 100 (98-107) mmol/L Carbon Dioxide 30 (22-30) mmol/L Anion Gap 11 mmol/L BUN 8 (7-17) mg/dL Creatinine 0.39 L (0.52-1.04) mg/dL Est GFR (CKD-EPI)AfAm >90 (>60 ml/min/1.73 sqM) Est GFR (CKD-EPI)NonAf >90 (>60 ml/min/1.73 sqM) Glucose 88 (74-99) mg/dL POC Glucose (mg/dL) (75-99) mg/dL POC Glu Cigarette Tipper ID Plasma Lactic Acid Santino 1.4 (0.7-2.0) mmol/L Calcium 9.2 (8.4-10.2) mg/dL Total Bilirubin 0.7 (0.2-1.3) mg/dL AST 31 (14-36) U/L ALT 26 (9-52) U/L Alkaline Phosphatase 111 (38-126) U/L Total Creatine Kinase (30-135) U/L CK-MB (CK-2) (0.0-2.4) ng/mL CK-MB (CK-2) Rel Index Troponin I (0.000-0.034) ng/mL Total Protein 8.9 H (6.3-8.2) g/dL Albumin 4.8 (3.5-5.0) g/dL HCG, Qual Urine Color Urine Appearance (Clear) Urine pH (5.0-8.0) Ur Specific [place] (1.001-1.035) Urine Protein (Negative) Urine Glucose (UA) (Negative) Urine Ketones (Negative) Urine Blood (Negative) Urine Nitrite (Negative) Urine Bilirubin (Negative) Urine Urobilinogen (<2.0) mg/dL Ur Leukocyte Esterase (Negative) Urine RBC (0-5) /hpf Urine WBC (0-5) /hpf Ur Squamous Epith Cells (0-4) /hpf Urine Bacteria (None) /hpf Urine Mucus (None) /hpf Urine Opiates Screen (NotDetected) Ur Oxycodone Screen (NotDetected) Urine Methadone Screen (NotDetected) Ur Propoxyphene Screen (NotDetected) Ur Barbiturates Screen (NotDetected) U Tricyclic Antidepress (NotDetected) Ur Phencyclidine Scrn (NotDetected) Ur Amphetamines Screen (NotDetected) U Methamphetamines Scrn (NotDetected) U Benzodiazepines Scrn (NotDetected) Urine Cocaine Screen (NotDetected) U Marijuana (THC) Screen (NotDetected) 06/14/18 06/14/18 06/14/18 Range/Units 18:05 18:05 18:05 WBC (3.8-10.6) k/uL RBC (3.80-5.40) m/uL Hgb (11.4-16.0) gm/dL Hct (34.0-46.0) % MCV (80.0-100.0) fL MCH (25.0-35.0) pg MCHC (31.0-37.0) g/dL RDW (11.5-15.5) % Plt Count (150-450) k/uL Neutrophils % % Lymphocytes % % Monocytes % % Eosinophils % % Basophils % % Neutrophils # (1.3-7.7) k/uL Lymphocytes # (1.0-4.8) k/uL Monocytes # (0-1.0) k/uL Eosinophils # (0-0.7) k/uL Basophils # (0-0.2) k/uL Hypochromasia Anisocytosis PT 22.1 H (9.0-12.0) sec INR 2.5 H (<1.2) APTT 37.7 H (22.0-30.0) sec Sample Site ABG pH (7.35-7.45) ABG pCO2 (35-45) mmHg ABG pO2 (83-108) mmHg ABG HCO3 (21-25) mmol/L ABG Total CO2 (19-24) mmol/L ABG O2 Saturation (94-97) % ABG Base Excess mmol/L Epifanio Test FiO2 % Sodium (137-145) mmol/L Potassium (3.5-5.1) mmol/L Chloride (98-107) mmol/L Carbon Dioxide (22-30) mmol/L Anion Gap mmol/L BUN (7-17) mg/dL Creatinine (0.52-1.04) mg/dL Est GFR (CKD-EPI)AfAm (>60 ml/min/1.73 sqM) Est GFR (CKD-EPI)NonAf (>60 ml/min/1.73 sqM) Glucose (74-99) mg/dL POC Glucose (mg/dL) (75-99) mg/dL POC Glu Cigarette Tipper ID Plasma Lactic Acid Santino (0.7-2.0) mmol/L Calcium (8.4-10.2) mg/dL Total Bilirubin (0.2-1.3) mg/dL AST (14-36) U/L ALT (9-52) U/L Alkaline Phosphatase (38-126) U/L Total Creatine Kinase 201 H (30-135) U/L CK-MB (CK-2) 7.1 H (0.0-2.4) ng/mL CK-MB (CK-2) Rel Index 3.5 Troponin I <0.012 (0.000-0.034) ng/mL Total Protein (6.3-8.2) g/dL Albumin (3.5-5.0) g/dL HCG, Qual Urine Color Yellow Urine Appearance Cloudy H (Clear) Urine pH 5.5 (5.0-8.0) Ur Specific [place] 1.015 (1.001-1.035) Urine Protein Negative (Negative) Urine Glucose (UA) Negative (Negative) Urine Ketones Negative (Negative) Urine Blood Negative (Negative) Urine Nitrite Negative (Negative) Urine Bilirubin Negative (Negative) Urine Urobilinogen <2.0 (<2.0) mg/dL Ur Leukocyte Esterase Moderate H (Negative) Urine RBC 1 (0-5) /hpf Urine WBC 16 H (0-5) /hpf Ur Squamous Epith Cells 16 H (0-4) /hpf Urine Bacteria Rare H (None) /hpf Urine Mucus Rare H (None) /hpf Urine Opiates Screen (NotDetected) Ur Oxycodone Screen (NotDetected) Urine Methadone Screen (NotDetected) Ur Propoxyphene Screen (NotDetected) Ur Barbiturates Screen (NotDetected) U Tricyclic Antidepress (NotDetected) Ur Phencyclidine Scrn (NotDetected) Ur Amphetamines Screen (NotDetected) U Methamphetamines Scrn (NotDetected) U Benzodiazepines Scrn (NotDetected) Urine Cocaine Screen (NotDetected) U Marijuana (THC) Screen (NotDetected) 06/14/18 06/14/18 06/14/18 Range/Units 18:16 20:39 21:34 WBC (3.8-10.6) k/uL RBC (3.80-5.40) m/uL Hgb (11.4-16.0) gm/dL Hct (34.0-46.0) % MCV (80.0-100.0) fL MCH (25.0-35.0) pg MCHC (31.0-37.0) g/dL RDW (11.5-15.5) % Plt Count (150-450) k/uL Neutrophils % % Lymphocytes % % Monocytes % % Eosinophils % % Basophils % % Neutrophils # (1.3-7.7) k/uL Lymphocytes # (1.0-4.8) k/uL Monocytes # (0-1.0) k/uL Eosinophils # (0-0.7) k/uL Basophils # (0-0.2) k/uL Hypochromasia Anisocytosis PT (9.0-12.0) sec INR (<1.2) APTT (22.0-30.0) sec Sample Site ABG pH (7.35-7.45) ABG pCO2 (35-45) mmHg ABG pO2 (83-108) mmHg ABG HCO3 (21-25) mmol/L ABG Total CO2 (19-24) mmol/L ABG O2 Saturation (94-97) % ABG Base Excess mmol/L Epifanio Test FiO2 % Sodium (137-145) mmol/L Potassium (3.5-5.1) mmol/L Chloride (98-107) mmol/L Carbon Dioxide (22-30) mmol/L Anion Gap mmol/L BUN (7-17) mg/dL Creatinine (0.52-1.04) mg/dL Est GFR (CKD-EPI)AfAm (>60 ml/min/1.73 sqM) Est GFR (CKD-EPI)NonAf (>60 ml/min/1.73 sqM) Glucose (74-99) mg/dL POC Glucose (mg/dL) 61 L (75-99) mg/dL POC Glu Cigarette Tipper ID Derik, Sabine Plasma Lactic Acid Santino (0.7-2.0) mmol/L Calcium (8.4-10.2) mg/dL Total Bilirubin (0.2-1.3) mg/dL AST (14-36) U/L ALT (9-52) U/L Alkaline Phosphatase (38-126) U/L Total Creatine Kinase (30-135) U/L CK-MB (CK-2) (0.0-2.4) ng/mL CK-MB (CK-2) Rel Index Troponin I (0.000-0.034) ng/mL Total Protein (6.3-8.2) g/dL Albumin (3.5-5.0) g/dL HCG, Qual Not Detected Urine Color Urine Appearance (Clear) Urine pH (5.0-8.0) Ur Specific [place] (1.001-1.035) Urine Protein (Negative) Urine Glucose (UA) (Negative) Urine Ketones (Negative) Urine Blood (Negative) Urine Nitrite (Negative) Urine Bilirubin (Negative) Urine Urobilinogen (<2.0) mg/dL Ur Leukocyte Esterase (Negative) Urine RBC (0-5) /hpf Urine WBC (0-5) /hpf Ur Squamous Epith Cells (0-4) /hpf Urine Bacteria (None) /hpf Urine Mucus (None) /hpf Urine Opiates Screen Not Detected (NotDetected) Ur Oxycodone Screen Not Detected (NotDetected) Urine Methadone Screen Not Detected (NotDetected) Ur Propoxyphene Screen Not Detected (NotDetected) Ur Barbiturates Screen Not Detected (NotDetected) U Tricyclic Antidepress Not Detected (NotDetected) Ur Phencyclidine Scrn Not Detected (NotDetected) Ur Amphetamines Screen Not Detected (NotDetected) U Methamphetamines Scrn Not Detected (NotDetected) U Benzodiazepines Scrn Not Detected (NotDetected) Urine Cocaine Screen Not Detected (NotDetected) U Marijuana (THC) Screen Detected H (NotDetected) 06/14/18 06/14/18 06/14/18 Range/Units 21:38 22:30 22:53 WBC (3.8-10.6) k/uL RBC (3.80-5.40) m/uL Hgb (11.4-16.0) gm/dL Hct (34.0-46.0) % MCV (80.0-100.0) fL MCH (25.0-35.0) pg MCHC (31.0-37.0) g/dL RDW (11.5-15.5) % Plt Count (150-450) k/uL Neutrophils % % Lymphocytes % % Monocytes % % Eosinophils % % Basophils % % Neutrophils # (1.3-7.7) k/uL Lymphocytes # (1.0-4.8) k/uL Monocytes # (0-1.0) k/uL Eosinophils # (0-0.7) k/uL Basophils # (0-0.2) k/uL Hypochromasia Anisocytosis PT (9.0-12.0) sec INR (<1.2) APTT (22.0-30.0) sec Sample Site Left Brachial ABG pH 7.36 (7.35-7.45) ABG pCO2 50 H (35-45) mmHg ABG pO2 148 H (83-108) mmHg ABG HCO3 28 H (21-25) mmol/L ABG Total CO2 29 H (19-24) mmol/L ABG O2 Saturation 99.6 H (94-97) % ABG Base Excess 2.1 mmol/L Epifanio Test Yes FiO2 100 % Sodium (137-145) mmol/L Potassium (3.5-5.1) mmol/L Chloride (98-107) mmol/L Carbon Dioxide (22-30) mmol/L Anion Gap mmol/L BUN (7-17) mg/dL Creatinine (0.52-1.04) mg/dL Est GFR (CKD-EPI)AfAm (>60 ml/min/1.73 sqM) Est GFR (CKD-EPI)NonAf (>60 ml/min/1.73 sqM) Glucose (74-99) mg/dL POC Glucose (mg/dL) 150 H (75-99) mg/dL POC Glu Cigarette Tipper ID Joe Finch Plasma Lactic Acid Santino (0.7-2.0) mmol/L Calcium (8.4-10.2) mg/dL Total Bilirubin (0.2-1.3) mg/dL AST (14-36) U/L ALT (9-52) U/L Alkaline Phosphatase (38-126) U/L Total Creatine Kinase (30-135) U/L CK-MB (CK-2) (0.0-2.4) ng/mL CK-MB (CK-2) Rel Index Troponin I (0.000-0.034) ng/mL Total Protein (6.3-8.2) g/dL Albumin (3.5-5.0) g/dL HCG, Qual Urine Color Urine Appearance (Clear) Urine pH (5.0-8.0) Ur Specific [place] (1.001-1.035) Urine Protein (Negative) Urine Glucose (UA) (Negative) Urine Ketones (Negative) Urine Blood (Negative) Urine Nitrite (Negative) Urine Bilirubin (Negative) Urine Urobilinogen (<2.0) mg/dL Ur Leukocyte Esterase (Negative) Urine RBC (0-5) /hpf Urine WBC (0-5) /hpf Ur Squamous Epith Cells (0-4) /hpf Urine Bacteria (None) /hpf Urine Mucus (None) /hpf Urine Opiates Screen Not Detected (NotDetected) Ur Oxycodone Screen Not Detected (NotDetected) Urine Methadone Screen Not Detected (NotDetected) Ur Propoxyphene Screen Not Detected (NotDetected) Ur Barbiturates Screen Not Detected (NotDetected) U Tricyclic Antidepress Not Detected (NotDetected) Ur Phencyclidine Scrn Not Detected (NotDetected) Ur Amphetamines Screen Not Detected (NotDetected) U Methamphetamines Scrn Not Detected (NotDetected) U Benzodiazepines Scrn Not Detected (NotDetected) Urine Cocaine Screen Not Detected (NotDetected) U Marijuana (THC) Screen Not Detected (NotDetected) - Radiology Data Two-view x-ray of the chest is obtained. There is small linear density at the right lung bases. There are's left upper lobe surgical clips. There is scoliotic thoracic deformity. Heart size is top normal. There is no heart failure. There are sternal wires. Impression by Dr. Ortiz shows scarring or subsegmental atelectasis at the right lung base which is unchanged. No heart failure. No evidence of bronchopneumonia. One view portable x-ray was obtained for tube evaluation, endotracheal tube is 8 cm from the dioni. There is coarsening of the lung markings. There is interstitial infiltrate left lower lobe. There is no pneumothorax. There is nasogastric tube noted in good position. Impression by Dr. Ortiz shows increased interstitial infiltrate in the lower lobes compared to last exam. There is some small coalescent new infiltrate the right lung base. One view portable chest x-ray was obtained for tube placement. Endotracheal tube is 4 cm some the quinine good position. There is some mild infiltrate in the left lower lobe. There are small infiltrate also at the right lung base. There is nasogastric tube in good position. There are chest leads. Impression by Dr. Ortiz shows developing infiltrates in both lower lobes the lung bases similar to last exam. There is clearing of interstitial infiltrate left midlung compared to last exam. To be in good position. Computed tomography scan of the head is performed without contrast. Report was reviewed in its entirety. Impression by Dr. Ortiz shows old left large internal capsule infarct. Cerebral atrophy around the infarct. No acute intracranial abnormality. No change compared to old exam. (Raina Hightower) Critical Care Time Critical Care Time: Yes Total Critical Care Time: 31 <Armando You - Last Filed: 06/14/18 21:46> <Raina Hightower - Last Filed: 06/15/18 04:06> Critical Care Time: metabolic vs. toxic encephalopathy with vent dependent respiratory failure ( Armando You) Disposition <Armando You - Last Filed: 06/14/18 21:46> Decision to Admit Reason: Admit from EC Decision Date: 06/14/18 Decision Time: 23:46 <Raina Hightower - Last Filed: 06/15/18 04:06> Clinical Impression: Acute metabolic encephalopathy Disposition: ADMITTED IP TO THIS HOSP Condition: Critical
[2018-06-14] MEDS: SODIUM CHLORIDE 0.9% 500 ML 500 ML IV SCH (18:26)
[2018-06-14 18:34] LABS: Anisocytosis Slight; Basophils # (A) 0.1 k/uL (0-0.2); Basophils % (A) 1 %; Eosinophils # (A) 0.3 k/uL (0-0.7); Eosinophils % (A) 3 %; HCT 48.2 % (34.0-46.0); HGB 14.7 gm/dL (11.4-16.0); Hypochromasia Moderate; Lymphocytes # (A) 2.8 k/uL (1.0-4.8); Lymphocytes % (A) 26 %; MCHC 30.5 g/dL (31.0-37.0); MCV 91.9 fL (80.0-100.0); Monocytes # (A) 0.6 k/uL (0-1.0); Monocytes % (A) 5 %; Neutrophils # (A) 6.9 k/uL (1.3-7.7); Neutrophils % (A) 64 %; Platelet Count 320 k/uL (150-450); RBC 5.24 m/uL (3.80-5.40); WBC 10.9 k/uL (3.8-10.6)
[2018-06-14 18:38] LABS: Appearance,Urine Cloudy (Clear); Bacteria,Urine Rare /hpf; Bilirubin,Urine Negative (Negative); Blood,Urine Negative (Negative); Color,Urine Yellow; Glucose,Urine (UA) Negative (Negative); INR 2.5 (<1.2); Ketones,Urine Negative (Negative); Leukocyte Esterase,Urine Moderate (Negative); Mucus,Urine Rare /hpf; Nitrite,Urine Negative (Negative); PH, Urine 5.5 (5.0-8.0); Partial Thromboplastin Time 37.7 sec (22.0-30.0); Protein,Urine Negative (Negative); Prothrombin Time 22.1 sec (9.0-12.0); RBC,Urine 1 /hpf (0-5); Specific Gravity,Urine 1.015 (1.001-1.035); Squamous Epithelial Cell,Urine 16 /hpf (0-4); Urobilinogen,Urine <2.0 mg/dL (<2.0); WBC,Urine 16 /hpf (0-5)
[2018-06-14 18:42] LABS: Carbon Dioxide 30 mmol/L (22-30); Chloride 100 mmol/L (98-107); Glucose 88 mg/dL (74-99); Potassium 3.8 mmol/L (3.5-5.1); Sodium 141 mmol/L (137-145)
[2018-06-14 18:43] LABS: ALT 26 U/L (9-52); AST 31 U/L (14-36); Albumin 4.8 g/dL (3.5-5.0); Alkaline Phosphatase 111 U/L (38-126); Anion Gap 11 mmol/L; Blood Urea Nitrogen 8 mg/dL (7-17); Calcium 9.2 mg/dL (8.4-10.2); Total Bilirubin 0.7 mg/dL (0.2-1.3); Total Protein 8.9 g/dL (6.3-8.2)
--- NOTE | 2018-06-14 19:38 | XR ---
EXAMINATION TYPE: XR chest 2V DATE OF EXAM: 06/14/2018 COMPARISON: 05/18/2018 HISTORY: Fever and weakness TECHNIQUE: Frontal and lateral views of the chest are obtained. FINDINGS: There is some small linear density at the right lung base. There are left upper lobe surgi gamaliel clips. There is scoliotic thoracic deformity. Heart size is top normal. There is no heart failure . There are sternal wires. IMPRESSION: Scarring or subsegmental atelectasis at the right lung base is unchanged. No heart failu re. No evidence of bronchopneumonia.
[2018-06-14] MEDS ORDERED: NALOXONE 0.4 MG/ML 10 ML VIAL IVP STA ×2 (20:32→20:46)
[2018-06-14] MEDS ORDERED: DEXTROSE 50%-WATER 50 ML SYRINGE IVP STA (20:33)
[2018-06-14] MEDS ORDERED: NALOXONE 0.4 MG/ML 1 ML VIAL IV STA (20:33)
[2018-06-14] MEDS ORDERED: SODIUM CHLORIDE 0.9% 1,000 ML IV STA (20:55)
[2018-06-14 21:00] LABS: Glucose,Whole Blood 61 mg/dL (75-99)
[2018-06-14] MEDS ORDERED: ROCURONIUM BROMIDE 10 MG/ML 10 ML VIAL IV STA (21:00)
[2018-06-14] MEDS ORDERED: ETOMIDATE 2 MG/ML 10 ML VIAL IVP STA (21:00)
[2018-06-14] MEDS ORDERED: PROPOFOL 1,000 MG in EMPTY BAG 1 BAG IV STA (21:25)
[2018-06-14 21:42] LABS: Glucose,Whole Blood 150 mg/dL (75-99)
[2018-06-14] MEDS ORDERED: CEFEPIME 2 GM in SODIUM CHLORIDE 0.9% 50 ML IVPB STA (21:45)
[2018-06-14] MEDS ORDERED: VANCOMYCIN IV PER PHARMACY 1 EACH MISC MISCELLANE PRN (21:45)
--- NOTE | 2018-06-14 21:48 | XR ---
EXAMINATION TYPE: XR chest 1V portable DATE OF EXAM: 06/14/2018 COMPARISON: NONE HISTORY: Intubation TECHNIQUE: Single frontal view of the chest is obtained. FINDINGS: Endotracheal tube is 8 cm from the dioni. There is coarsening of the lung markings. There is interstitial infiltrate left lower lobe. There is no pneumothorax. There is nasogastric tube note d in good position. IMPRESSION: There is increased interstitial infiltrate in the lower lobes compared to last exam. The re is some small coalescent new infiltrate at the right lung base.
[2018-06-14 21:50] LABS: Creatine Kinase 201 U/L (30-135)
[2018-06-14 21:53] LABS: Amphetamine Screen,Urine Not Detected (NotDetected); Barbiturate Screen,Urine Not Detected (NotDetected); Benzodiazepines Screen,Urine Not Detected (NotDetected); Cocaine Screen,Urine Not Detected (NotDetected); Methadone Screen, Urine Not Detected (NotDetected); Opiate Screen,Urine Not Detected (NotDetected); Oxycodone Screen, Urine Not Detected (NotDetected); Phencyclidine Screen,Urine Not Detected (NotDetected); Tricyclic Antidepressant,Urine Not Detected (NotDetected); Urn Cannabinoid Scrn Detected (NotDetected)
[2018-06-14] MEDS ORDERED: VANCOMYCIN 1,000 MG in SODIUM CHLORIDE 0.9% 250 ML IVPB STA (22:00)
[2018-06-14 22:03] LABS: Creatine Kinase MB 7.1 ng/mL (0.0-2.4); Troponin I <0.012 ng/mL (0.000-0.034)
[2018-06-14] MEDS ORDERED: MIDAZOLAM 1 MG/ML 5 ML VIAL IV STA (22:37)
[2018-06-14] MEDS ORDERED: LORazepam 2 MG/ML INJ IV STA (22:39)
--- NOTE | 2018-06-14 22:42 | CT ---
EXAMINATION TYPE: CT brain wo con DATE OF EXAM: 06/14/2018 COMPARISON: 02/14/2018 HISTORY: Unresponsive. CT DLP: 1154.4 mGycm. Automated Exposure Control for Dose Reduction was Utilized. TECHNIQUE: CT scan of the head is performed without contrast. FINDINGS: There is a 3 x 1 cm area of hypodensity in the left internal capsule related to old lacunar infarct. There is enlargement of frontal horn left lateral ventricle. There is cerebral cortical atr ophy. There is no mass effect nor midline shift. There is no sign of intracranial hemorrhage. There i s old occipital craniotomy defect noted. There is mucosal thickening in the nasopharynx. IMPRESSION: Old left large internal capsule infarct. Cerebral atrophy around the infarct.. No acute intracranial abnormality. No change compared to old exam.
[2018-06-14 22:57] LABS: ABG Base Excess 2.1 mmol/L; ABG HCO3 28 mmol/L (21-25); ABG Oxygen Saturation 99.6 % (94-97); ABG PCO2 50 mmHg (35-45); ABG PH 7.36 (7.35-7.45); ABG PO2 148 mmHg (83-108); ABG TCO2 29 mmol/L (19-24)
[2018-06-14 23:07] LABS: Amphetamine Screen,Urine Not Detected (NotDetected); Barbiturate Screen,Urine Not Detected (NotDetected); Benzodiazepines Screen,Urine Not Detected (NotDetected); Cocaine Screen,Urine Not Detected (NotDetected); Methadone Screen, Urine Not Detected (NotDetected); Opiate Screen,Urine Not Detected (NotDetected); Oxycodone Screen, Urine Not Detected (NotDetected); Phencyclidine Screen,Urine Not Detected (NotDetected); Tricyclic Antidepressant,Urine Not Detected (NotDetected); Urn Cannabinoid Scrn Not Detected (NotDetected)
--- NOTE | 2018-06-14 23:22 | XR ---
EXAMINATION TYPE: XR chest 1V portable DATE OF EXAM: 06/14/2018 COMPARISON: Today HISTORY: Check tube placement TECHNIQUE: Single frontal view of the chest is obtained. FINDINGS: Endotracheal tube is 4 cm from the dioni in good position. There is some mild infiltrate in the left lower lobe. There is small infiltrate also at the right lung base. There is nasogastric t ube in good position. There are chest leads. IMPRESSION: Developing infiltrates in both lower lobes at the lung bases similar to last exam. There is clearing of interstitial infiltrate left midlung compared to last exam. Tubing in good position.
[2018-06-14] MEDS ORDERED: NALOXONE 0.4 MG/ML 1 ML VIAL IV PRN (23:43)
[2018-06-15 01:10] LABS: Glucose,Whole Blood 74 mg/dL (75-99)
[2018-06-15] MEDS ORDERED: SODIUM CHLORIDE 0.9% 1,000 ML IV ONE (01:47)
[2018-06-15] MEDS: PROPOFOL 1,000 MG in EMPTY BAG 1 BAG IV SCH ×2 (01:57→19:11)
[2018-06-15 03:29] LABS: Creatine Kinase 91 U/L (30-135)
[2018-06-15] MEDS ORDERED: NOREPINEPHRINE 16 MG in SODIUM CHLORIDE 0.9% 250 ML IV SCH (03:30)
[2018-06-15 03:42] LABS: Creatine Kinase MB 3.6 ng/mL (0.0-2.4); Troponin I <0.012 ng/mL (0.000-0.034)
[2018-06-15] MEDS: CEFEPIME 2 GM in SODIUM CHLORIDE 0.9% 50 ML IVPB SCH ×3 (04:54→22:21)
[2018-06-15 05:02] LABS: Anisocytosis Slight; Basophils # (A) 0.1 k/uL (0-0.2); Basophils % (A) 1 %; Eosinophils # (A) 0.4 k/uL (0-0.7); Eosinophils % (A) 5 %; HCT 39.7 % (34.0-46.0); HGB 12.3 gm/dL (11.4-16.0); Hypochromasia Marked; Lymphocytes # (A) 2.7 k/uL (1.0-4.8); Lymphocytes % (A) 33 %; MCH 28.7 pg (25.0-35.0); MCHC 30.9 g/dL (31.0-37.0); MCV 93.1 fL (80.0-100.0); Mean Platelet Volume 8.4; Monocytes # (A) 0.5 k/uL (0-1.0); Monocytes % (A) 7 %; Neutrophils # (A) 4.4 k/uL (1.3-7.7); Neutrophils % (A) 54 %; Platelet Count 255 k/uL (150-450); RBC 4.26 m/uL (3.80-5.40); RDW 19.2 % (11.5-15.5); WBC 8.2 k/uL (3.8-10.6)
[2018-06-15 05:34] LABS: Anion Gap 1 mmol/L; Blood Urea Nitrogen 4 mg/dL (7-17); Calcium 7.6 mg/dL (8.4-10.2); Carbon Dioxide 26 mmol/L (22-30); Chloride 117 mmol/L (98-107); Glucose 77 mg/dL (74-99); Magnesium 1.5 mg/dL (1.6-2.3); Potassium 3.5 mmol/L (3.5-5.1); Sodium 144 mmol/L (137-145)
[2018-06-15 05:40] LABS: Glucose,Whole Blood 80 mg/dL (75-99)
[2018-06-15] MEDS ORDERED: Potassium Replacement Protocol 1 EACH MISC MISCELLANE PRN ×2 (05:53→13:13)
[2018-06-15] MEDS ORDERED: Magnesium Replacement Protocol 1 EACH MISC MISCELLANE PRN (05:53)
[2018-06-15] MEDS: MAGNESIUM SULFATE-D5W PMX 1 GM in DEXTROSE/WATER 1 100ML.BAG IVPB SCH ×2 (06:17→08:27)
[2018-06-15] MEDS: POTASSIUM CHLORIDE 20 MEQ in WATER FOR INJECTION 1 100ML.BAG IVPB SCH ×2 (06:57→08:45)
--- NOTE | 2018-06-15 07:14 | XR ---
EXAMINATION TYPE: XR chest 1V portable DATE OF EXAM: 06/15/2018 COMPARISON: 06/14/2018 INDICATION: Tube placement, difficulty breathing. TECHNIQUE: Single frontal view of the chest is obtained. FINDINGS: The heart size is enlarged. The pulmonary vasculature is normal. There is hyperinflation present. Patient is rotated to the right. Scoliosis present. Postsurgical changes are in the left apex. Mild i nfiltrate is at the left base. Some atelectasis may be at the right base. Right Basilar infiltrates m ay be improving IMPRESSION: 1. Endotracheal tube and nasogastric tube remain in position from prior study. 2. Bibasilar infiltrates improving on the right.
[2018-06-15 08:06] LABS: ABG Base Excess -0.7 mmol/L; ABG HCO3 25 mmol/L (21-25); ABG PCO2 46 mmHg (35-45); ABG PH 7.34 (7.35-7.45); ABG PO2 184 mmHg (83-108); ABG TCO2 27 mmol/L (19-24)
[2018-06-15] MEDS: HEPARIN SODIUM,PORCINE 5,000 UNIT/ML 1 ML VIAL SQ SCH ×2 (08:27→15:14)
[2018-06-15] MEDS: CHLORHEXIDINE GLUCONATE 15 ML CUP MUCOUS MEM SCH ×2 (08:27→20:58)
[2018-06-15] MEDS ORDERED: PANTOPRAZOLE 40 MG/10 ML VIAL IV SCH (09:00)
[2018-06-15] MEDS: VANCOMYCIN 1,000 MG in SODIUM CHLORIDE 0.9% 250 ML IVPB SCH ×2 (09:10→16:55)
--- NOTE | 2018-06-15 11:50 | P.CNPUL ---
History of Present Illness Consult date: 06/15/18 Requesting physician: Warner Childers Reason for consult: other (Acute hypoxic respiratory failure) Chief complaint: Dizziness History of present illness: This is a 32-year-old female with history of multiple medical problems including Marfan syndrome, severe scoliosis, splenectomy, congestive heart failure, aortic valve graft surgery 2 last one at age 89 years old., previous CVA with residual right-sided weakness since 2017, Arnold-Chiari malformations, unknown type, history of spontaneous pneumothorax pectus excavatum, chronic back pain previous history of viral meningitis, and history of hepatitis C. According to the chart, and medical information was mostly obtained from the chart, patient presented yesterday at [facility] with multiple complaints, and she was found to have low blood pressure, urinary tract infection, patient was advised to be admitted. However the patient became extremely anxious, and she left the emergency room AGAINST MEDICAL ADVICE. Came back on her own to the ER at [facility] last night, she was not feeling better, complaining mostly of lightheadedness and dizziness dizziness, and she was more lightheaded and dizzy as she stood up. Apparently she had pressures documented in the 70s while she was at the emergency room at [facility]. Patient also had few episodes of nausea and vomiting and she was also complaining of some abdominal discomfort and painful urination. Patient had no fever no chills, she had occasional cough with yellow sputum. And upon presentation to the ER, the patient was doing relatively well however shortly after, patient was noted to have a sudden change in mental status, she became lethargic, and not responding appropriately. Narcan was given, blood sugar was 61 dextrose was given but no change in mentation, patient was intubated, placed on mechanical ventilation, and admitted to the intensive care unit. Drug screen was negative. Today the patient remains on mechanical ventilation, and her ventilator settings were reviewed she is presently on tidal volume of 400 FiO2 of 40% assist control rate of 16 and PEEP of 5. ABG showed a pO2 of 184 pCO2 of 46 pH of 7.34. CBC and basic metabolic profile were noted to be normal. Troponin is normal. Chest x-ray showed bibasilar atelectasis, questionable infiltrate, especially at the left base. 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 Unchanged. Review of Systems ROS unobtainable: due to endotracheal tube Past Medical History Past Medical History: Heart Failure, CVA/TIA, Neurologic Disorder, Osteoarthritis (OA), Pneumonia Additional Past Medical History / Comment(s): Stroke with residual right-sided weakness 2017, marfan's syndrome, ArnoldChiari malformation, spontaneous pneumothorax x 21, scoliosis and pectus excavatum secondary to Marfan's, chronic back pain, bilateral leg pain, sinus infections, STATED HAS POOR CIRCULATION, viral meningitis, HEP C. History of Any Multi-Drug Resistant Organisms: MRSA Date of last positivie culture/infection: 05/05/2010 MDRO Source:: back per patient Past Surgical History: Cardiac Valve Replacement, Coronary Bypass/CABG, Joint Replacement Additional Past Surgical History / Comment(s): right foot corrective surgery, R shoulder surgery following injury, CABG x4 vessel, aortic root graft, aortic valve replaced as child (2 separate surgeries last 10 years old), tiffani lens removed. spleenectomy 2018 Past Anesthesia/Blood Transfusion Reactions: No Reported Reaction Past Psychological History: Anxiety Smoking Status: Current every day smoker Past Alcohol Use History: None Reported Past Drug Use History: None Reported - Past Family History Father Additional Family Medical History / Comment(s): Father is with history of AIDS. Mother Family Medical History: Diabetes Mellitus Additional Family Medical History / Comment(s): Mother at age 49 from liver cirrhosis secondary to alcohol abuse. Brother(s) Additional Family Medical History / Comment(s): Patient has one brother with no major medical problems. Patient does not have any sisters. Patient does not have any children. Medications and Allergies Home Medications Medication Instructions Recorded Confirmed Type Gabapentin [Neurontin] 100 mg PO TID cap 03/08/18 06/14/18 Rx Warfarin [Coumadin] 5 mg PO DAILY 05/04/18 06/14/18 History Albuterol Inhaler [Ventolin Hfa 2 puff INHALATION RT-Q8H PRN 05/18/18 06/14/18 History Inhaler] Baclofen [Lioresal] 10 mg PO QID 05/18/18 06/14/18 History Cholecalciferol [Vitamin D3] 5,000 unit PO DAILY 05/18/18 06/14/18 History Cyanocobalamin (Vitamin B-12) 1,000 mcg PO DAILY 05/18/18 06/14/18 History [Vitamin B-12] Furosemide [Lasix] 20 mg PO DAILY 06/04/18 06/14/18 History Ipratropium-Albuterol Nebulize 3 ml INHALATION RT-TID PRN 06/04/18 06/14/18 History [Duoneb 0.5 mg-3 mg/3 ml Soln] Metoprolol Tartrate 25 mg PO BID 06/04/18 06/14/18 History DULoxetine HCL [Cymbalta] 60 mg PO DAILY 06/14/18 06/14/18 History Ferrous Sulfate [Iron (65 MG 325 mg PO HS 06/14/18 06/14/18 History Elemental)] OLANZapine [ZyPREXA] 10 mg PO HS 06/14/18 06/14/18 History Pantoprazole Sodium [Protonix] 20 mg PO DAILY 06/14/18 06/14/18 History Sennosides [Senna] 8.6 mg PO DAILY PRN 06/14/18 06/14/18 History Allergies Allergy/AdvReac Type Severity Reaction Status Date / Time chlordiazepoxide HCl Allergy Unknown Verified 06/14/18 17:37 [From Librium] Penicillins Allergy Rash/Hives Verified 06/14/18 17:37 prochlorperazine edisylate Allergy PANIC Verified 06/14/18 17:37 [From Compazine] ATTACK prochlorperazine maleate Allergy PANIC Verified 06/14/18 17:37 [From Compazine] ATTACK ketorolac [From Toradol] AdvReac Unknown Verified 06/14/18 17:37 Physical Exam Vitals: Vital Signs Temp Pulse Resp BP Pulse Ox 06/15/18 11:00 87 14 151/70 93 L 06/15/18 10:30 89 17 175/79 96 06/15/18 10:00 84 16 139/68 99 06/15/18 09:30 82 16 139/67 98 06/15/18 09:00 83 13 153/87 100 06/15/18 08:30 85 13 150/75 100 06/15/18 08:00 98.1 F 85 14 155/76 100 06/15/18 07:30 80 14 133/66 100 06/15/18 07:00 78 15 134/68 100 06/15/18 06:30 82 16 131/63 100 06/15/18 06:00 88 14 140/68 100 06/15/18 05:30 90 12 127/60 100 06/15/18 05:00 90 12 132/60 100 06/15/18 04:45 94 13 130/61 100 06/15/18 04:30 96 13 146/67 100 06/15/18 04:15 92 13 138/63 100 06/15/18 04:00 99.1 F 90 12 142/65 100 06/15/18 03:45 89 12 156/71 100 06/15/18 03:40 89 12 156/71 100 06/15/18 03:30 86 12 95/48 99 06/15/18 03:20 75 15 95/48 98 06/15/18 03:10 72 12 89/43 98 06/15/18 03:00 97.9 F 70 12 101/50 98 06/15/18 02:50 71 12 101/50 100 06/15/18 02:40 82 12 87/45 100 06/15/18 02:30 67 12 84/40 100 06/15/18 02:20 66 12 84/44 100 06/15/18 02:10 66 12 115/50 100 06/15/18 02:00 68 12 93/47 100 06/15/18 01:50 73 12 91/47 93 L 06/15/18 01:40 63 12 76/42 99 06/15/18 01:30 60 12 84/43 96 06/15/18 01:20 94.5 F L 73 12 124/65 100 06/15/18 01:00 97 F L 90 18 137/65 99 06/15/18 00:00 66 14 111/56 99 06/14/18 23:37 142/66 06/14/18 23:23 67 14 102/55 98 06/14/18 22:49 64 14 120/61 100 06/14/18 22:09 77 14 180/81 100 06/14/18 21:39 97.7 F 74 14 171/80 100 06/14/18 21:25 200/95 100 06/14/18 20:47 12 06/14/18 20:42 10 L 06/14/18 20:32 10 L 10/11/18 19:29 97.8 F 68 15 93/54 96 06/14/18 18:40 71 20 117/74 98 06/14/18 17:20 97.8 F 76 18 120/72 100 Intake and Output 06/14/18 06/15/18 06/15/18 22:59 06:59 14:59 Intake Total 0.177 230.675 700 Output Total 2120 595 Balance 0.177 -1889.325 105 Intake: IV 230 700 0.9 KVO 80 200 Cefepime 2 gm In Sodium 50 Chloride 0.9% 50 ml @ 100 mls/hr IVPB ONCE STA Rx# :[id number] Magnesium Sulfate-D5w Pmx 100 100 1 gm In Dextrose/Water 1 100ml.bag @ 100 mls/hr IVPB Q1H [facility] Rx#: [id number] Potassium Chloride 20 meq 150 In Water For Injection 1 100ml.bag @ 50 mls/hr IVPB Q2H [facility] Rx#: [id number] Vancomycin 1,000 mg In 250 Sodium Chloride 0.9% 250 ml @ 125 mls/hr IVPB Q8H [facility] Rx#:[id number] Intake, IV Titration 0.177 0.675 Amount Propofol 1,000 mg In 0.675 Empty Bag 1 bag @ Titrate IV .Q0M [facility] Rx#: [id number] Propofol 1,000 mg In 0.177 Empty Bag 1 bag @ Titrate IV .Q0M STA Rx#: [id number] Output: Urine 2120 595 Other: Voiding Method Toilet Indwelling Catheter Indwelling Catheter Weight 58.967 kg 59.5 kg Physical Exam: Revealed a 32-year-old white female, on mechanical ventilation, in no distress. Presently on propofol, Head: Atraumatic, normocephalic. Endotracheal tube and orogastric tube are intact. HEENT:[Neck is supple.] [No neck masses.] [No thyromegaly.] [No JVD.] PERRLA, EOMI, no icterus. Chest: [Diminished breath sounds at the bases, no crackles, no rhonchi, no wheezes. Pectus excavatum of the chest is noted.] Cardiac Exam: [Normal S1 and S2, no S3 gallop, mechanical valve sound is noted. Abdomen: [Soft, nontender, no megaly, no rebound, no guarding, normal bowel sounds.] Extremities: [No clubbing, no edema, no cyanosis.] Good pulses bilaterally. Neurological Exam: Cannot be assessed, patient is sedated on propofol which I plan to discontinue and awaken the patient and assess mental status. Lymphatics: No lymphadenopathy. Psychiatric: Could not be assessed. Skin: Warm, dry, normal color, no rashes. Results - Laboratory Findings CBC and BMP: 06/15/18 04:40 06/15/18 05:00 ABG ABG pH 7.34 (7.35-7.45) L 06/15/18 08:03 ABG pCO2 46 mmHg (35-45) H 06/15/18 08:03 ABG pO2 184 mmHg (83-108) H 06/15/18 08:03 ABG O2 Saturation 100.0 % (94-97) H 06/15/18 08:03 PT/INR, D-dimer PT 22.1 sec (9.0-12.0) H 06/14/18 18:05 INR 2.5 (<1.2) H 06/14/18 18:05 Abnormal lab findings: Abnormal Labs 06/14/18 06/14/18 06/14/18 18:05 18:05 18:05 WBC 10.9 H Hct 48.2 H MCHC 30.5 L RDW 19.0 H PT 22.1 H INR 2.5 H APTT 37.7 H ABG pH ABG pCO2 ABG pO2 ABG HCO3 ABG Total CO2 ABG O2 Saturation Chloride BUN Creatinine 0.39 L POC Glucose (mg/dL) Calcium Magnesium Total Creatine Kinase CK-MB (CK-2) Total Protein 8.9 H Urine Appearance Ur Leukocyte Esterase Urine WBC Ur Squamous Epith Cells Urine Bacteria Urine Mucus U Marijuana (THC) Screen 06/14/18 06/14/18 06/14/18 18:05 18:05 20:39 WBC Hct MCHC RDW PT INR APTT ABG pH ABG pCO2 ABG pO2 ABG HCO3 ABG Total CO2 ABG O2 Saturation Chloride BUN Creatinine POC Glucose (mg/dL) 61 L Calcium Magnesium Total Creatine Kinase 201 H CK-MB (CK-2) 7.1 H Total Protein Urine Appearance Cloudy H Ur Leukocyte Esterase Moderate H Urine WBC 16 H Ur Squamous Epith Cells 16 H Urine Bacteria Rare H Urine Mucus Rare H U Marijuana (THC) Screen 06/14/18 06/14/18 06/14/18 21:34 21:38 22:53 WBC Hct MCHC RDW PT INR APTT ABG pH ABG pCO2 50 H ABG pO2 148 H ABG HCO3 28 H ABG Total CO2 29 H ABG O2 Saturation 99.6 H Chloride BUN Creatinine POC Glucose (mg/dL) 150 H Calcium Magnesium Total Creatine Kinase CK-MB (CK-2) Total Protein Urine Appearance Ur Leukocyte Esterase Urine WBC Ur Squamous Epith Cells Urine Bacteria Urine Mucus U Marijuana (THC) Screen Detected H 06/15/18 06/15/18 06/15/18 01:07 03:00 04:40 WBC Hct MCHC 30.9 L RDW 19.2 H PT INR APTT ABG pH ABG pCO2 ABG pO2 ABG HCO3 ABG Total CO2 ABG O2 Saturation Chloride BUN Creatinine POC Glucose (mg/dL) 74 L Calcium Magnesium Total Creatine Kinase CK-MB (CK-2) 3.6 H Total Protein Urine Appearance Ur Leukocyte Esterase Urine WBC Ur Squamous Epith Cells Urine Bacteria Urine Mucus U Marijuana (THC) Screen 06/15/18 06/15/18 05:00 08:03 WBC Hct MCHC RDW PT INR APTT ABG pH 7.34 L ABG pCO2 46 H ABG pO2 184 H ABG HCO3 ABG Total CO2 27 H ABG O2 Saturation 100.0 H Chloride 117 H BUN 4 L Creatinine 0.41 L POC Glucose (mg/dL) Calcium 7.6 L Magnesium 1.5 L Total Creatine Kinase CK-MB (CK-2) Total Protein Urine Appearance Ur Leukocyte Esterase Urine WBC Ur Squamous Epith Cells Urine Bacteria Urine Mucus U Marijuana (THC) Screen - Diagnostic Findings Chest x-ray: image reviewed (As noted in HPI.) Assessment and Plan Assessment: Impression: 1 acute hypoxic respiratory failure, exact etiology is not clear, however considering the clinical history, I would be more definitely concerned about the possibility of underlying sepsis and hypotension. 2 acute urinary tract infection, final cultures are pending, patient will be empirically on antibiotics. 3 possible aspiration pneumonia as noted on the chest x-ray with bibasilar infiltrates, improving since initial chest x-ray on admission. 4 multiple comorbidities including Marfan's syndrome, previous CVA and right- sided weakness, history of splenectomy, history of aortic valve disease requiring surgery 2 last one at age 10 yeaRS. History of bacteremia secondary to enterococcus, history of endocarditis. Recommendation: Continue ventilatory support, nutritional support, empiric antibiotics, await final cultures from the blood and urine, GI and DVT prophylaxis, daily assessment for possible weaning and extubation. Continue in the meantime vancomycin and cefepime. Overall prognosis is guarded at this point, patient obviously is critically ill. Time with Patient: Greater than 30
[2018-06-15 11:56] VITALS: BMI 18.3
[2018-06-15] MEDS ORDERED: SODIUM CHLORIDE 0.9% 1,000 ML IV SCH (12:15)
[2018-06-15 12:16] LABS: Glucose,Whole Blood 39 mg/dL (75-99)
[2018-06-15 12:34] LABS: Glucose,Whole Blood 197 mg/dL (75-99)
[2018-06-15 13:02] LABS: Magnesium 2.1 mg/dL (1.6-2.3); Potassium 3.7 mmol/L (3.5-5.1)
[2018-06-15] MEDS: DEXTROSE 5%-0.45% NACL 1,000 ML IV SCH (13:06)
[2018-06-15] MEDS ORDERED: POTASSIUM CHLORIDE 10 MEQ in WATER FOR INJECTION 1 100ML.BAG IVPB SCH (13:15)
[2018-06-15] MEDS ORDERED: POTASSIUM CHLORIDE 20 MEQ in WATER FOR INJECTION 1 100ML.BAG IVPB ONE (13:30)
--- NOTE | 2018-06-15 15:07 | P.HPIM ---
History of Present Illness 32-year-old female came to ER was drowsy lethargic and to protect the airway patient was intubated patient ABGs are okay at this time patient was subsequently admitted to ICU. Etiology of her lethargy is not clear at this time. Patient was seen in the seen at [facility] for dry lightheadedness subsequently left AMA from ER a day later comes to this ER. 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 Patient is presently on cefepime and vancomycin vancomycin should cover enterococcus previous enterococcus sensitive to vancomycin is 1. Infectious disease will be consulted. Echo cardiac exam will be obtained. Concern is recurrence of bacteremia with enterococcus are endocarditis with enterococcus. Blood cultures were obtained. She was hypoglycemic as well as blood sugars to 61 yesterday and presently she is hypoglycemic as well patient will be started on D5 half-normal saline because of elevated sodium and chloride Review of Systems Unable to obtain Past Medical History Past Medical History: Heart Failure, CVA/TIA, Neurologic Disorder, Osteoarthritis (OA), Pneumonia Additional Past Medical History / Comment(s): Stroke with residual right-sided weakness 2017, marfan's syndrome, ArnoldChiari malformation, spontaneous pneumothorax x 21, scoliosis and pectus excavatum secondary to Marfan's, chronic back pain, bilateral leg pain, sinus infections, STATED HAS POOR CIRCULATION, viral meningitis, HEP C. History of Any Multi-Drug Resistant Organisms: MRSA Date of last positivie culture/infection: 05/05/2010 MDRO Source:: back per patient Past Surgical History: Cardiac Valve Replacement, Coronary Bypass/CABG, Joint Replacement Additional Past Surgical History / Comment(s): right foot corrective surgery, R shoulder surgery following injury, CABG x4 vessel, aortic root graft, aortic valve replaced as child (2 separate surgeries last 10 years old), tiffani lens removed. spleenectomy 2018 Past Anesthesia/Blood Transfusion Reactions: No Reported Reaction Past Psychological History: Anxiety Smoking Status: Current every day smoker Past Alcohol Use History: None Reported Past Drug Use History: None Reported - Past Family History Father Additional Family Medical History / Comment(s): Father is with history of AIDS. Mother Family Medical History: Diabetes Mellitus Additional Family Medical History / Comment(s): Mother at age 49 from liver cirrhosis secondary to alcohol abuse. Brother(s) Additional Family Medical History / Comment(s): Patient has one brother with no major medical problems. Patient does not have any sisters. Patient does not have any children. Medications and Allergies Home Medications Medication Instructions Recorded Confirmed Type Gabapentin [Neurontin] 100 mg PO TID cap 03/08/18 06/14/18 Rx Warfarin [Coumadin] 5 mg PO DAILY 05/04/18 06/14/18 History Albuterol Inhaler [Ventolin Hfa 2 puff INHALATION RT-Q8H PRN 05/18/18 06/14/18 History Inhaler] Baclofen [Lioresal] 10 mg PO QID 05/18/18 06/14/18 History Cholecalciferol [Vitamin D3] 5,000 unit PO DAILY 05/18/18 06/14/18 History Cyanocobalamin (Vitamin B-12) 1,000 mcg PO DAILY 05/18/18 06/14/18 History [Vitamin B-12] Furosemide [Lasix] 20 mg PO DAILY 06/04/18 06/14/18 History Ipratropium-Albuterol Nebulize 3 ml INHALATION RT-TID PRN 06/04/18 06/14/18 History [Duoneb 0.5 mg-3 mg/3 ml Soln] Metoprolol Tartrate 25 mg PO BID 06/04/18 06/14/18 History DULoxetine HCL [Cymbalta] 60 mg PO DAILY 06/14/18 06/14/18 History Ferrous Sulfate [Iron (65 MG 325 mg PO HS 06/14/18 06/14/18 History Elemental)] OLANZapine [ZyPREXA] 10 mg PO HS 06/14/18 06/14/18 History Pantoprazole Sodium [Protonix] 20 mg PO DAILY 06/14/18 06/14/18 History Sennosides [Senna] 8.6 mg PO DAILY PRN 06/14/18 06/14/18 History Allergies Allergy/AdvReac Type Severity Reaction Status Date / Time chlordiazepoxide HCl Allergy Unknown Verified 06/14/18 17:37 [From Librium] Penicillins Allergy Rash/Hives Verified 06/14/18 17:37 prochlorperazine edisylate Allergy PANIC Verified 06/14/18 17:37 [From Compazine] ATTACK prochlorperazine maleate Allergy PANIC Verified 06/14/18 17:37 [From Compazine] ATTACK ketorolac [From Toradol] AdvReac Unknown Verified 06/14/18 17:37 Physical Exam Vitals: Vital Signs Temp Pulse Resp BP Pulse Ox 06/15/18 13:00 85 16 134/63 96 06/15/18 12:30 85 14 149/70 98 06/15/18 12:00 88 16 140/70 97 06/15/18 11:44 93 L 06/15/18 11:30 86 16 137/66 93 L 06/15/18 11:00 87 14 151/70 93 L 06/15/18 10:30 89 17 175/79 96 06/15/18 10:00 84 16 139/68 99 06/15/18 09:30 82 16 139/67 98 06/15/18 09:00 83 13 153/87 100 06/15/18 08:30 85 13 150/75 100 06/15/18 08:00 98.1 F 85 14 155/76 100 06/15/18 07:30 80 14 133/66 100 06/15/18 07:00 78 15 134/68 100 06/15/18 06:30 82 16 131/63 100 06/15/18 06:00 88 14 140/68 100 06/15/18 05:30 90 12 127/60 100 06/15/18 05:00 90 12 132/60 100 06/15/18 04:45 94 13 130/61 100 06/15/18 04:30 96 13 146/67 100 06/15/18 04:15 92 13 138/63 100 06/15/18 04:00 99.1 F 90 12 142/65 100 06/15/18 03:45 89 12 156/71 100 06/15/18 03:40 89 12 156/71 100 06/15/18 03:30 86 12 95/48 99 06/15/18 03:20 75 15 95/48 98 06/15/18 03:10 72 12 89/43 98 06/15/18 03:00 97.9 F 70 12 101/50 98 06/15/18 02:50 71 12 101/50 100 06/15/18 02:40 82 12 87/45 100 06/15/18 02:30 67 12 84/40 100 06/15/18 02:20 66 12 84/44 100 06/15/18 02:10 66 12 115/50 100 06/15/18 02:00 68 12 93/47 100 06/15/18 01:50 73 12 91/47 93 L 06/15/18 01:40 63 12 76/42 99 06/15/18 01:30 60 12 84/43 96 06/15/18 01:20 94.5 F L 73 12 124/65 100 06/15/18 01:00 97 F L 90 18 137/65 99 06/15/18 00:00 66 14 111/56 99 06/14/18 23:37 142/66 06/14/18 23:23 67 14 102/55 98 06/14/18 22:49 64 14 120/61 100 06/14/18 22:09 77 14 180/81 100 06/14/18 21:39 97.7 F 74 14 171/80 100 06/14/18 21:25 200/95 100 06/14/18 20:47 12 06/14/18 20:42 10 L 06/14/18 20:32 10 L 06/14/18 19:29 97.8 F 68 15 93/54 96 06/14/18 18:40 71 20 117/74 98 06/14/18 17:20 97.8 F 76 18 120/72 100 Intake and Output 06/14/18 06/15/18 06/15/18 22:59 06:59 14:59 Intake Total 0.177 230.675 845 Output Total 2120 1070 Balance 0.177 -1889.325 -225 Intake: IV 230 845 0.9 KVO 80 270 Cefepime 2 gm In Sodium 50 Chloride 0.9% 50 ml @ 100 mls/hr IVPB ONCE [facility] Rx# :[id number] Dextrose 5%-0.45% NaCl 1, 75 000 ml @ 75 mls/hr IV . [id number] [facility] Rx#:[id number] Magnesium Sulfate-D5w Pmx 100 100 1 gm In Dextrose/Water 1 100ml.bag @ 100 mls/hr IVPB Q1H [facility] Rx#: [id number] Potassium Chloride 20 meq 150 In Water For Injection 1 100ml.bag @ 50 mls/hr IVPB Q2H [facility] Rx#: [id number] Vancomycin 1,000 mg In 250 Sodium Chloride 0.9% 250 ml @ 125 mls/hr IVPB Q8H [facility] Rx#:[id number] Intake, IV Titration 0.177 0.675 Amount Propofol 1,000 mg In 0.675 Empty Bag 1 bag @ Titrate IV .Q0M [facility] Rx#: [id number] Propofol 1,000 mg In 0.177 Empty Bag 1 bag @ Titrate IV .Q0M [facility] Rx#: [id number] Output: Urine 2120 1070 Other: Voiding Method Toilet Indwelling Catheter Indwelling Catheter Weight 58.967 kg 59.5 kg PHYSICAL EXAMINATION: GENERAL: Patient is intubated sedation is off, RASS score -1 HEENT: Pupils are round and equally reacting to light. EOMI. No scleral icterus. No conjunctival pallor. Normocephalic, atraumatic. No pharyngeal erythema. No thyromegaly. CARDIOVASCULAR: S1 and S2 present. No murmurs, rubs, or gallops. Mechanical valve sounds. PULMONARY: Chest is clear to auscultation, no wheezing or crackles. ABDOMEN: Soft, nontender, nondistended, normoactive bowel sounds. No palpable organomegaly. MUSCULOSKELETAL: No joint swelling or deformity. EXTREMITIES: No cyanosis, clubbing, or pedal edema. NEUROLOGICAL: Unable to assess SKIN: No rashes. Results CBC & Chem 7: 06/15/18 04:40 06/15/18 12:25 Labs: Abnormal Lab Results - Last 24 Hours (Table) 06/14/18 06/14/18 06/14/18 Range/Units 18:05 18:05 18:05 WBC 10.9 H (3.8-10.6) k/uL Hct 48.2 H (34.0-46.0) % MCHC 30.5 L (31.0-37.0) g/dL RDW 19.0 H (11.5-15.5) % PT 22.1 H (9.0-12.0) sec INR 2.5 H (<1.2) APTT 37.7 H (22.0-30.0) sec ABG pH (7.35-7.45) ABG pCO2 (35-45) mmHg ABG pO2 (83-108) mmHg ABG HCO3 (21-25) mmol/L ABG Total CO2 (19-24) mmol/L ABG O2 Saturation (94-97) % Chloride (98-107) mmol/L BUN (7-17) mg/dL Creatinine 0.39 L (0.52-1.04) mg/dL POC Glucose (mg/dL) (75-99) mg/dL Calcium (8.4-10.2) mg/dL Magnesium (1.6-2.3) mg/dL Total Creatine Kinase (30-135) U/L CK-MB (CK-2) (0.0-2.4) ng/mL Total Protein 8.9 H (6.3-8.2) g/dL Urine Appearance (Clear) Ur Leukocyte Esterase (Negative) Urine WBC (0-5) /hpf Ur Squamous Epith Cells (0-4) /hpf Urine Bacteria (None) /hpf Urine Mucus (None) /hpf U Marijuana (THC) Screen (NotDetected) 06/14/18 06/14/18 06/14/18 Range/Units 18:05 18:05 20:39 WBC (3.8-10.6) k/uL Hct (34.0-46.0) % MCHC (31.0-37.0) g/dL RDW (11.5-15.5) % PT (9.0-12.0) sec INR (<1.2) APTT (22.0-30.0) sec ABG pH (7.35-7.45) ABG pCO2 (35-45) mmHg ABG pO2 (83-108) mmHg ABG HCO3 (21-25) mmol/L ABG Total CO2 (19-24) mmol/L ABG O2 Saturation (94-97) % Chloride (98-107) mmol/L BUN (7-17) mg/dL Creatinine (0.52-1.04) mg/dL POC Glucose (mg/dL) 61 L (75-99) mg/dL Calcium (8.4-10.2) mg/dL Magnesium (1.6-2.3) mg/dL Total Creatine Kinase 201 H (30-135) U/L CK-MB (CK-2) 7.1 H (0.0-2.4) ng/mL Total Protein (6.3-8.2) g/dL Urine Appearance Cloudy H (Clear) Ur Leukocyte Esterase Moderate H (Negative) Urine WBC 16 H (0-5) /hpf Ur Squamous Epith Cells 16 H (0-4) /hpf Urine Bacteria Rare H (None) /hpf Urine Mucus Rare H (None) /hpf U Marijuana (THC) Screen (NotDetected) 06/14/18 06/14/18 06/14/18 Range/Units 21:34 21:38 22:53 WBC (3.8-10.6) k/uL Hct (34.0-46.0) % MCHC (31.0-37.0) g/dL RDW (11.5-15.5) % PT (9.0-12.0) sec INR (<1.2) APTT (22.0-30.0) sec ABG pH (7.35-7.45) ABG pCO2 50 H (35-45) mmHg ABG pO2 148 H (83-108) mmHg ABG HCO3 28 H (21-25) mmol/L ABG Total CO2 29 H (19-24) mmol/L ABG O2 Saturation 99.6 H (94-97) % Chloride (98-107) mmol/L BUN (7-17) mg/dL Creatinine (0.52-1.04) mg/dL POC Glucose (mg/dL) 150 H (75-99) mg/dL Calcium (8.4-10.2) mg/dL Magnesium (1.6-2.3) mg/dL Total Creatine Kinase (30-135) U/L CK-MB (CK-2) (0.0-2.4) ng/mL Total Protein (6.3-8.2) g/dL Urine Appearance (Clear) Ur Leukocyte Esterase (Negative) Urine WBC (0-5) /hpf Ur Squamous Epith Cells (0-4) /hpf Urine Bacteria (None) /hpf Urine Mucus (None) /hpf U Marijuana (THC) Screen Detected H (NotDetected) 06/15/18 06/15/18 06/15/18 Range/Units 01:07 03:00 04:40 WBC (3.8-10.6) k/uL Hct (34.0-46.0) % MCHC 30.9 L (31.0-37.0) g/dL RDW 19.2 H (11.5-15.5) % PT (9.0-12.0) sec INR (<1.2) APTT (22.0-30.0) sec ABG pH (7.35-7.45) ABG pCO2 (35-45) mmHg ABG pO2 (83-108) mmHg ABG HCO3 (21-25) mmol/L ABG Total CO2 (19-24) mmol/L ABG O2 Saturation (94-97) % Chloride (98-107) mmol/L BUN (7-17) mg/dL Creatinine (0.52-1.04) mg/dL POC Glucose (mg/dL) 74 L (75-99) mg/dL Calcium (8.4-10.2) mg/dL Magnesium (1.6-2.3) mg/dL Total Creatine Kinase (30-135) U/L CK-MB (CK-2) 3.6 H (0.0-2.4) ng/mL Total Protein (6.3-8.2) g/dL Urine Appearance (Clear) Ur Leukocyte Esterase (Negative) Urine WBC (0-5) /hpf Ur Squamous Epith Cells (0-4) /hpf Urine Bacteria (None) /hpf Urine Mucus (None) /hpf U Marijuana (THC) Screen (NotDetected) 06/15/18 06/15/18 06/15/18 Range/Units 05:00 08:03 12:13 WBC (3.8-10.6) k/uL Hct (34.0-46.0) % MCHC (31.0-37.0) g/dL RDW (11.5-15.5) % PT (9.0-12.0) sec INR (<1.2) APTT (22.0-30.0) sec ABG pH 7.34 L (7.35-7.45) ABG pCO2 46 H (35-45) mmHg ABG pO2 184 H (83-108) mmHg ABG HCO3 (21-25) mmol/L ABG Total CO2 27 H (19-24) mmol/L ABG O2 Saturation 100.0 H (94-97) % Chloride 117 H (98-107) mmol/L BUN 4 L (7-17) mg/dL Creatinine 0.41 L (0.52-1.04) mg/dL POC Glucose (mg/dL) 39 L (75-99) mg/dL Calcium 7.6 L (8.4-10.2) mg/dL Magnesium 1.5 L (1.6-2.3) mg/dL Total Creatine Kinase (30-135) U/L CK-MB (CK-2) (0.0-2.4) ng/mL Total Protein (6.3-8.2) g/dL Urine Appearance (Clear) Ur Leukocyte Esterase (Negative) Urine WBC (0-5) /hpf Ur Squamous Epith Cells (0-4) /hpf Urine Bacteria (None) /hpf Urine Mucus (None) /hpf U Marijuana (THC) Screen (NotDetected) 06/15/18 Range/Units 12:33 WBC (3.8-10.6) k/uL Hct (34.0-46.0) % MCHC (31.0-37.0) g/dL RDW (11.5-15.5) % PT (9.0-12.0) sec INR (<1.2) APTT (22.0-30.0) sec ABG pH (7.35-7.45) ABG pCO2 (35-45) mmHg ABG pO2 (83-108) mmHg ABG HCO3 (21-25) mmol/L ABG Total CO2 (19-24) mmol/L ABG O2 Saturation (94-97) % Chloride (98-107) mmol/L BUN (7-17) mg/dL Creatinine (0.52-1.04) mg/dL POC Glucose (mg/dL) 197 H (75-99) mg/dL Calcium (8.4-10.2) mg/dL Magnesium (1.6-2.3) mg/dL Total Creatine Kinase (30-135) U/L CK-MB (CK-2) (0.0-2.4) ng/mL Total Protein (6.3-8.2) g/dL Urine Appearance (Clear) Ur Leukocyte Esterase (Negative) Urine WBC (0-5) /hpf Ur Squamous Epith Cells (0-4) /hpf Urine Bacteria (None) /hpf Urine Mucus (None) /hpf U Marijuana (THC) Screen (NotDetected) Microbiology - Last 24 Hours (Table) 06/15/18 01:37 Gram Stain - Preliminary Sputum Sputum Culture - Preliminary 06/14/18 18:05 Urine Culture - Preliminary Urine,Voided Assessment and Plan Plan: Acute hypoxic respiratory failure: Patient is intubated for airway protection and her lethargy is probably secondary to sepsis. Patient will be continued on present antibiotics patient does have history of a and colitis with enterococcus in the past. Patient will be continued on cefepime and vancomycin infectious disease will be consulted -History of endocarditis in the past mechanical aortic valve -Mechanical prosthetic aortic valve: Coumadin will be continued at present dose INR is therapeutic. -CVA /TIA in the past History of IV drug use and hepatitis C.
[2018-06-15] MEDS ORDERED: DEXTROSE 50%-WATER 50 ML SYRINGE IVP ONE (15:22)
[2018-06-15 15:23] LABS: Glucose,Whole Blood 70 mg/dL (75-99)
[2018-06-15 15:25] LABS: Hemoglobin A1C 5.3 % (4.0-6.0)
[2018-06-15] MEDS: DEXTROSE 50%-WATER 50 ML SYRINGE IVP PRN (15:25)
[2018-06-15 17:10] LABS: Glucose,Whole Blood 86 mg/dL (75-99)
[2018-06-15] MEDS: WARFARIN 2 MG TAB PO SCH (17:54)
[2018-06-15 17:57] LABS: Glucose,Whole Blood 79 mg/dL (75-99)
[2018-06-15 20:47] LABS: Glucose,Whole Blood 97 mg/dL (75-99)
[2018-06-15] MEDS: METOPROLOL TARTRATE 25 MG TAB PO SCH (20:58)
[2018-06-15] MEDS ORDERED: POTASSIUM BICARBONATE/CIT AC 20 MEQ TABLET.EFF NG-TUBE SCH (21:00)
[2018-06-15 21:53] LABS: Glucose,Whole Blood 92 mg/dL (75-99)
[2018-06-15] MEDS: OLANZapine 10 MG TAB PO SCH (22:22)
--- NOTE | 2018-06-15 23:18 | P.CONS ---
History of Present Illness - Reason for Consult Consult date: 06/15/18 - Chief Complaint Weakness - History of Present Illness 32-year-old woman presented to the emergency center because of ongoing difficulties with anxiety feeling poorly and shortness of breath. Is related she had presented to an outside emergency center where there was concerns to pneumonia and hypotension but the patient refused to stay in left Hospital ER AMA. She presents to this emergency center and while in the emergency center had a major change of her status required intubation sedation mechanical ventilation and transferred to the intensive care unit. She's been on some vasopressor therapy and ongoing supportive care. Infectious disease consultation requested regarding history of multiple bouts of infections and sepsis concerns to sepsis as etiology of her current changes status. Review of Systems ROS unobtainable: due to endotracheal tube Past Medical History Past Medical History: Heart Failure, CVA/TIA, Neurologic Disorder, Osteoarthritis (OA), Pneumonia Additional Past Medical History / Comment(s): Stroke with residual right-sided weakness 2017, marfan's syndrome, ArnoldChiari malformation, spontaneous pneumothorax x 21, scoliosis and pectus excavatum secondary to Marfan's, chronic back pain, bilateral leg pain, sinus infections, STATED HAS POOR CIRCULATION, viral meningitis, HEP C. History of Any Multi-Drug Resistant Organisms: MRSA Year Discovered:: 05/05/2010 MDRO Source:: back per patient Past Surgical History: Cardiac Valve Replacement, Coronary Bypass/CABG, Joint Replacement Additional Past Surgical History / Comment(s): right foot corrective surgery, R shoulder surgery following injury, CABG x4 vessel, aortic root graft, aortic valve replaced as child (2 separate surgeries last 10 years old), tiffani lens removed. spleenectomy 2018 Past Anesthesia/Blood Transfusion Reactions: No Reported Reaction Past Psychological History: Anxiety Smoking Status: Current every day smoker Past Alcohol Use History: None Reported Past Drug Use History: None Reported - Past Family History Father Additional Family Medical History / Comment(s): Father is with history of AIDS. Mother Family Medical History: Diabetes Mellitus Additional Family Medical History / Comment(s): Mother at age 49 from liver cirrhosis secondary to alcohol abuse. Brother(s) Additional Family Medical History / Comment(s): Patient has one brother with no major medical problems. Patient does not have any sisters. Patient does not have any children. Medications and Allergies Home Medications and Allergies Comment(s): Current Medications Chlorhexidine Gluconate (Peridex) 15 ml MUCOUS MEM BID [facility] Last Admin: 06/15/18 20:58 Dose: 15 ml Dextrose/Water (Dextrose 50%-Water Syringe) 50 ml IVP Q1HR PRN; Protocol PRN Reason: Hypoglycemia Last Admin: 06/15/18 15:25 Dose: 50 ml Duloxetine HCl (Cymbalta) 60 mg PO DAILY [facility] Heparin Sodium (Porcine) (Heparin) 5,000 unit SQ Q8HR [facility] Last Admin: 06/15/18 15:14 Dose: 5,000 unit Cefepime HCl 2 gm/ Sodium (Chloride) 50 mls @ 100 mls/hr IVPB Q8H [facility] Last Admin: 06/15/18 22:21 Dose: 100 mls/hr Vancomycin HCl 1,000 mg/ (Sodium Chloride) 250 mls @ 125 mls/hr IVPB Q8H [facility] Last Admin: 06/15/18 16:55 Dose: 125 mls/hr Propofol 1,000 mg/ IV Solution 100 mls @ 0 mls/hr IV .Q0M [facility]; Protocol Last Admin: 06/15/18 19:11 Dose: 20 mcg/kg/min, 7.14 mls/hr Norepinephrine Bitartrate 16 (mg/ Sodium Chloride) 250 mls @ 0 mls/hr IV .Q0M [facility]; Protocol Dextrose/Sodium Chloride (Dextrose 5%-1/2ns Iv Soln) 1,000 mls @ 75 mls/hr IV .[id number] [facility] Last Admin: 06/15/18 13:06 Dose: 75 mls/hr Metoprolol Tartrate (Lopressor) 25 mg PO BID [facility] Last Admin: 06/15/18 20:58 Dose: 25 mg Miscellaneous Information (Magnesium Per Protocol) 1 each MISCELLANE DAILY PRN ; Protocol PRN Reason: Per Protocol Miscellaneous Information (Potassium Per Protocol) 1 each MISCELLANE DAILY PRN ; Protocol PRN Reason: Per Protocol Miscellaneous Information (Vancomycin Trough Due) 1 each MISCELLANE ONCE ONE Stop: 06/16/18 08:01 Miscellaneous Information (Potassium Per Protocol) 1 each MISCELLANE DAILY PRN ; Protocol PRN Reason: Per Protocol Naloxone HCl (Narcan) 0.2 mg IV Q2M PRN PRN Reason: Opioid Reversal Olanzapine (Zyprexa) 10 mg PO HS [facility] Last Admin: 06/15/18 22:22 Dose: 10 mg Pantoprazole Sodium (Protonix) 40 mg PO -BRKT [facility] Warfarin Sodium (Coumadin) 4 mg PO Q24H [facility] Last Admin: 06/15/18 17:54 Dose: 4 mg Home Medications Medication Instructions Recorded Confirmed Type Gabapentin [Neurontin] 100 mg PO TID cap 03/08/18 06/14/18 Rx Warfarin [Coumadin] 5 mg PO DAILY 05/04/18 06/14/18 History Albuterol Inhaler [Ventolin Hfa 2 puff INHALATION RT-Q8H PRN 05/18/18 06/14/18 History Inhaler] Baclofen [Lioresal] 10 mg PO QID 05/18/18 06/14/18 History Cholecalciferol [Vitamin D3] 5,000 unit PO DAILY 05/18/18 06/14/18 History Cyanocobalamin (Vitamin B-12) 1,000 mcg PO DAILY 05/18/18 06/14/18 History [Vitamin B-12] Furosemide [Lasix] 20 mg PO DAILY 06/04/18 06/14/18 History Ipratropium-Albuterol Nebulize 3 ml INHALATION RT-TID PRN 06/04/18 06/14/18 History [Duoneb 0.5 mg-3 mg/3 ml Soln] Metoprolol Tartrate 25 mg PO BID 06/04/18 06/14/18 History DULoxetine HCL [Cymbalta] 60 mg PO DAILY 06/14/18 06/14/18 History Ferrous Sulfate [Iron (65 MG 325 mg PO HS 06/14/18 06/14/18 History Elemental)] OLANZapine [ZyPREXA] 10 mg PO HS 06/14/18 06/14/18 History Pantoprazole Sodium [Protonix] 20 mg PO DAILY 06/14/18 06/14/18 History Sennosides [Senna] 8.6 mg PO DAILY PRN 06/14/18 06/14/18 History Allergies Allergy/AdvReac Type Severity Reaction Status Date / Time chlordiazepoxide HCl Allergy Unknown Verified 06/14/18 17:37 [From Librium] Penicillins Allergy Rash/Hives Verified 06/14/18 17:37 prochlorperazine edisylate Allergy PANIC Verified 06/14/18 17:37 [From Compazine] ATTACK prochlorperazine maleate Allergy PANIC Verified 06/14/18 17:37 [From Compazine] ATTACK ketorolac [From Toradol] AdvReac Unknown Verified 06/14/18 17:37 Physical Exam Vitals: Vital Signs Temp Pulse Resp BP Pulse Ox 06/15/18 19:00 104 H 26 H 152/77 96 06/15/18 18:00 96 16 149/71 97 06/15/18 17:00 96 14 139/71 96 06/15/18 16:00 98.7 F 100 17 147/74 98 06/15/18 15:59 15 06/15/18 15:57 98 06/15/18 15:00 88 15 136/69 98 06/15/18 14:00 86 15 121/61 97 06/15/18 13:00 85 16 134/63 96 06/15/18 12:30 85 14 149/70 98 06/15/18 12:00 88 16 140/70 97 06/15/18 11:44 93 L 06/15/18 11:30 86 16 137/66 93 L 06/15/18 11:00 87 14 151/70 93 L 06/15/18 10:30 89 17 175/79 96 06/15/18 10:00 84 16 139/68 99 06/15/18 09:30 82 16 139/67 98 06/15/18 09:00 83 13 153/87 100 06/15/18 08:30 85 13 150/75 100 06/15/18 08:00 98.1 F 85 14 155/76 100 06/15/18 07:30 80 14 133/66 100 06/15/18 07:00 78 15 134/68 100 06/15/18 06:30 82 16 131/63 100 06/15/18 06:00 88 14 140/68 100 06/15/18 05:30 90 12 127/60 100 06/15/18 05:00 90 12 132/60 100 06/15/18 04:45 94 13 130/61 100 06/15/18 04:30 96 13 146/67 100 06/15/18 04:15 92 13 138/63 100 06/15/18 04:00 99.1 F 90 12 142/65 100 06/15/18 03:45 89 12 156/71 100 06/15/18 03:40 89 12 156/71 100 06/15/18 03:30 86 12 95/48 99 06/15/18 03:20 75 15 95/48 98 06/15/18 03:10 72 12 89/43 98 06/15/18 03:00 97.9 F 70 12 101/50 98 06/15/18 02:50 71 12 101/50 100 06/15/18 02:40 82 12 87/45 100 06/15/18 02:30 67 12 84/40 100 06/15/18 02:20 66 12 84/44 100 06/15/18 02:10 66 12 115/50 100 06/15/18 02:00 68 12 93/47 100 06/15/18 01:50 73 12 91/47 93 L 06/15/18 01:40 63 12 76/42 99 06/15/18 01:30 60 12 84/43 96 06/15/18 01:20 94.5 F L 73 12 124/65 100 06/15/18 01:00 97 F L 90 18 137/65 99 06/15/18 00:00 66 14 111/56 99 06/14/18 23:37 142/66 06/14/18 23:23 67 14 102/55 98 Intake and Output 06/15/18 06/15/18 06/16/18 14:59 22:59 06:59 Intake Total 920 775 Output Total 1220 935 Balance -300 -160 Intake: IV 920 775 0.9 KVO 270 Cefepime 2 gm In Sodium 50 Chloride 0.9% 50 ml @ 100 mls/hr IVPB ONCE [facility] Rx# :[id number] Dextrose 5%-0.45% NaCl 1, 150 375 000 ml @ 75 mls/hr IV . [id number] [facility] Rx#:[id number] Magnesium Sulfate-D5w Pmx 100 1 gm In Dextrose/Water 1 100ml.bag @ 100 mls/hr IVPB Q1H [facility] Rx#: [id number] Potassium Chloride 20 meq 150 100 In Water For Injection 1 100ml.bag @ 50 mls/hr IVPB Q2H [facility] Rx#: [id number] Vancomycin 1,000 mg In 250 250 Sodium Chloride 0.9% 250 ml @ 125 mls/hr IVPB Q8H [facility] Rx#:[id number] Intake, IV Titration 0 Amount Propofol 1,000 mg In 0 Empty Bag 1 bag @ Titrate IV .Q0M [facility] Rx#: [id number] Output: Urine 1220 935 Other: Voiding Method Indwelling Catheter Indwelling Catheter 32-year-old woman intubated sedated and mechanically ventilated. HEENT: Anicteric conjunctiva are pink and moist nasal mucosa grossly intact without significant lesions, there is no thrush. Neck: The neck is supple without significant lymphadenopathy or thyromegaly. Lungs: Symmetrical air entry is noted. Few expiratory wheezes are noted. No bronchial sounds Heart: Regular rate and rhythm with an audible S1-S2, no S3 no S4. There is no significant murmur click or rub, PMI was nondisplaced. Abdomen: Positive bowel sounds soft appears to have some tenderness in the lower quadrants on percussion, without palpable masses or organomegaly. There was no guarding or rebound. Extremities: The upper extremities have excellent pulses they are symmetric, no significant petechiae or telangiectasia. No splinter hemorrhages were noted. The lower extremities are free from significant edema. The peripheral pulses were 2+ and symmetric. Neuro: Patient opened eyes to stimulation. Hand squeezed both arms. Related that she was having some minimal pain. When asked Results CBC & Chem 7: 06/15/18 04:40 06/15/18 18:40 Labs: Abnormal Lab Results - Last 24 Hours (Table) 06/14/18 06/15/18 06/15/18 Range/Units 22:53 01:07 03:00 MCHC (31.0-37.0) g/dL RDW (11.5-15.5) % ABG pH (7.35-7.45) ABG pCO2 50 H (35-45) mmHg ABG pO2 148 H (83-108) mmHg ABG HCO3 28 H (21-25) mmol/L ABG Total CO2 29 H (19-24) mmol/L ABG O2 Saturation 99.6 H (94-97) % Chloride (98-107) mmol/L BUN (7-17) mg/dL Creatinine (0.52-1.04) mg/dL POC Glucose (mg/dL) 74 L (75-99) mg/dL Calcium (8.4-10.2) mg/dL Magnesium (1.6-2.3) mg/dL CK-MB (CK-2) 3.6 H (0.0-2.4) ng/mL 06/15/18 06/15/18 06/15/18 Range/Units 04:40 05:00 08:03 MCHC 30.9 L (31.0-37.0) g/dL RDW 19.2 H (11.5-15.5) % ABG pH 7.34 L (7.35-7.45) ABG pCO2 46 H (35-45) mmHg ABG pO2 184 H (83-108) mmHg ABG HCO3 (21-25) mmol/L ABG Total CO2 27 H (19-24) mmol/L ABG O2 Saturation 100.0 H (94-97) % Chloride 117 H (98-107) mmol/L BUN 4 L (7-17) mg/dL Creatinine 0.41 L (0.52-1.04) mg/dL POC Glucose (mg/dL) (75-99) mg/dL Calcium 7.6 L (8.4-10.2) mg/dL Magnesium 1.5 L (1.6-2.3) mg/dL CK-MB (CK-2) (0.0-2.4) ng/mL 06/15/18 06/15/18 06/15/18 Range/Units 12:13 12:33 15:20 MCHC (31.0-37.0) g/dL RDW (11.5-15.5) % ABG pH (7.35-7.45) ABG pCO2 (35-45) mmHg ABG pO2 (83-108) mmHg ABG HCO3 (21-25) mmol/L ABG Total CO2 (19-24) mmol/L ABG O2 Saturation (94-97) % Chloride (98-107) mmol/L BUN (7-17) mg/dL Creatinine (0.52-1.04) mg/dL POC Glucose (mg/dL) 39 L 197 H 70 L (75-99) mg/dL Calcium (8.4-10.2) mg/dL Magnesium (1.6-2.3) mg/dL CK-MB (CK-2) (0.0-2.4) ng/mL Microbiology - Last 24 Hours (Table) 06/14/18 18:05 Blood Culture - Preliminary Blood No Growth after 24 hours 06/15/18 01:37 Gram Stain - Preliminary Sputum Sputum Culture - Preliminary 06/14/18 18:05 Urine Culture - Preliminary Urine,Voided Laboratory Results WBC 8.2 k/uL (3.8-10.6) 06/15/18 04:40 RBC 4.26 m/uL (3.80-5.40) 06/15/18 04:40 Hgb 12.3 gm/dL (11.4-16.0) 06/15/18 04:40 Hct 39.7 % (34.0-46.0) 06/15/18 04:40 MCV 93.1 fL (80.0-100.0) 06/15/18 04:40 MCH 28.7 pg (25.0-35.0) 06/15/18 04:40 MCHC 30.9 g/dL (31.0-37.0) L 06/15/18 04:40 RDW 19.2 % (11.5-15.5) H 06/15/18 04:40 Plt Count 255 k/uL (150-450) 06/15/18 04:40 Neutrophils % 54 % 06/15/18 04:40 Lymphocytes % 33 % 06/15/18 04:40 Monocytes % 7 % 06/15/18 04:40 Eosinophils % 5 % 06/15/18 04:40 Basophils % 1 % 06/15/18 04:40 Neutrophils # 4.4 k/uL (1.3-7.7) 06/15/18 04:40 Lymphocytes # 2.7 k/uL (1.0-4.8) 06/15/18 04:40 Monocytes # 0.5 k/uL (0-1.0) 06/15/18 04:40 Eosinophils # 0.4 k/uL (0-0.7) 06/15/18 04:40 Basophils # 0.1 k/uL (0-0.2) 06/15/18 04:40 Hypochromasia Marked 06/15/18 04:40 Anisocytosis Slight 06/15/18 04:40 PT 22.1 sec (9.0-12.0) H 06/14/18 18:05 INR 2.5 (<1.2) H 06/14/18 18:05 APTT 37.7 sec (22.0-30.0) H 06/14/18 18:05 Sample Site LRAD 06/15/18 08:03 ABG pH 7.34 (7.35-7.45) L 06/15/18 08:03 ABG pCO2 46 mmHg (35-45) H 06/15/18 08:03 ABG pO2 184 mmHg (83-108) H 06/15/18 08:03 ABG HCO3 25 mmol/L (21-25) 06/15/18 08:03 ABG Total CO2 27 mmol/L (19-24) H 06/15/18 08:03 ABG O2 Saturation 100.0 % (94-97) H 06/15/18 08:03 ABG Base Excess -0.7 mmol/L 06/15/18 08:03 Epifanio Test Yes 06/15/18 08:03 FiO2 70 % 06/15/18 08:03 Sodium 144 mmol/L (137-145) 06/15/18 05:00 Potassium 3.7 mmol/L (3.5-5.1) 06/15/18 18:40 Chloride 117 mmol/L (98-107) H 06/15/18 05:00 Carbon Dioxide 26 mmol/L (22-30) 06/15/18 05:00 Anion Gap 1 mmol/L 06/15/18 05:00 BUN 4 mg/dL (7-17) L 06/15/18 05:00 Creatinine 0.41 mg/dL (0.52-1.04) L 06/15/18 05:00 Est GFR (CKD-EPI)AfAm >90 (>60 ml/min/1.73 sqM) 06/15/18 05:00 Est GFR (CKD-EPI)NonAf >90 (>60 ml/min/1.73 sqM) 06/15/18 05:00 Glucose 77 mg/dL (74-99) 06/15/18 05:00 POC Glucose (mg/dL) 92 mg/dL (75-99) 06/15/18 21:52 POC Glu Transferrer LAUREN Shari Grijalva 06/15/18 21:[address] Glu mg/dL 105 06/15/18 04:40 Hemoglobin A1c 5.3 % (4.0-6.0) 06/15/18 04:40 Plasma Lactic Acid Santino 1.4 mmol/L (0.7-2.0) 06/14/18 18:05 Calcium 7.6 mg/dL (8.4-10.2) L 06/15/18 05:00 Phosphorus 3.0 mg/dL (2.5-4.5) 06/15/18 05:00 Magnesium 2.1 mg/dL (1.6-2.3) 06/15/18 12:25 Total Bilirubin 0.7 mg/dL (0.2-1.3) 06/14/18 18:05 AST 31 U/L (14-36) 06/14/18 18:05 ALT 26 U/L (9-52) 06/14/18 18:05 Alkaline Phosphatase 111 U/L (38-126) 06/14/18 18:05 Total Creatine Kinase 91 U/L (30-135) 06/15/18 03:00 CK-MB (CK-2) 3.6 ng/mL (0.0-2.4) H 06/15/18 03:00 CK-MB (CK-2) Rel Index 4.0 06/15/18 03:00 Troponin I <0.012 ng/mL (0.000-0.034) 06/15/18 03:00 Total Protein 8.9 g/dL (6.3-8.2) H 06/14/18 18:05 Albumin 4.8 g/dL (3.5-5.0) 06/14/18 18:05 HCG, Qual Not Detected 06/14/18 18:16 Urine Color Yellow 06/14/18 18:05 Urine Appearance Cloudy (Clear) H 06/14/18 18:05 Urine pH 5.5 (5.0-8.0) 06/14/18 18:05 Ur Specific [place] 1.015 (1.001-1.035) 06/14/18 18:05 Urine Protein Negative (Negative) 06/14/18 18:05 Urine Glucose (UA) Negative (Negative) 06/14/18 18:05 Urine Ketones Negative (Negative) 06/14/18 18:05 Urine Blood Negative (Negative) 06/14/18 18:05 Urine Nitrite Negative (Negative) 06/14/18 18:05 Urine Bilirubin Negative (Negative) 06/14/18 18:05 Urine Urobilinogen <2.0 mg/dL (<2.0) 06/14/18 18:05 Ur Leukocyte Esterase Moderate (Negative) H 06/14/18 18:05 Urine RBC 1 /hpf (0-5) 06/14/18 18:05 Urine WBC 16 /hpf (0-5) H 06/14/18 18:05 Ur Squamous Epith Cells 16 /hpf (0-4) H 06/14/18 18:05 Urine Bacteria Rare /hpf (None) H 06/14/18 18:05 Urine Mucus Rare /hpf (None) H 06/14/18 18:05 Urine Opiates Screen Not Detected (NotDetected) 06/14/18 22:30 Ur Oxycodone Screen Not Detected (NotDetected) 06/14/18 22:30 Urine Methadone Screen Not Detected (NotDetected) 06/14/18 22:30 Ur Propoxyphene Screen Not Detected (NotDetected) 06/14/18 22:30 Ur Barbiturates Screen Not Detected (NotDetected) 06/14/18 22:30 U Tricyclic Antidepress Not Detected (NotDetected) 06/14/18 22:30 Ur Phencyclidine Scrn Not Detected (NotDetected) 06/14/18 22:30 Ur Amphetamines Screen Not Detected (NotDetected) 06/14/18 22:30 U Methamphetamines Scrn Not Detected (NotDetected) 06/14/18 22:30 U Benzodiazepines Scrn Not Detected (NotDetected) 06/14/18 22:30 Urine Cocaine Screen Not Detected (NotDetected) 06/14/18 22:30 U Marijuana (THC) Screen Not Detected (NotDetected) 06/14/18 22:30 Microbiology 06/14/18 18:05 Blood Blood Culture - Preliminary No Growth after 24 hours 06/15/18 01:37 Sputum Gram Stain - Preliminary 06/15/18 01:37 Sputum Sputum Culture - Preliminary 06/14/18 18:05 Urine,Voided Urine Culture - Preliminary Assessment and Plan (1) Acute metabolic encephalopathy Narrative/Plan: 32-year-old woman presents to hospital with altered mental status and concerns to sepsis given her history of prior bouts of sepsis. Shortly after arrival to the emergency center had a marked alteration of her status required intubation with mechanical ventilation and was transferred to the intensive care unit. Is evidence of leukocytosis, relative hypothermia and concerns of sepsis from the urinary system. Antibiotic therapy has been initiated with cefepime and vancomycin based on prior culture results. These will continue for now until further available results from her urine or blood cultures are known. Continue supportive care. She was warmed and her temperature has now improved. Neurological status was that she was heavily sedated but is now starting to recover from the sedation and is following some commands. There is some vague abdominal discomfort and this will monitored throughout her stay. Current Visit: Yes Status: Acute Code(s): G93.41 - METABOLIC ENCEPHALOPATHY SNOMED Code(s): 58751578
[2018-06-15 23:50] LABS: Glucose,Whole Blood 74 mg/dL (75-99)
[2018-06-16] MEDS ORDERED: DEXTROSE 50%-WATER 50 ML SYRINGE IVP STA
[2018-06-16] MEDS: DEXTROSE 50%-WATER 50 ML SYRINGE IVP PRN ×2 (00:27→13:42)
[2018-06-16] MEDS: HEPARIN SODIUM,PORCINE 5,000 UNIT/ML 1 ML VIAL SQ SCH ×3 (00:45→15:44)
[2018-06-16] MEDS: VANCOMYCIN 1,000 MG in SODIUM CHLORIDE 0.9% 250 ML IVPB SCH ×2 (01:30→09:35)
[2018-06-16 01:44] LABS: Glucose,Whole Blood 100 mg/dL (75-99)
[2018-06-16] MEDS: DEXTROSE 5%-0.45% NACL 1,000 ML IV SCH ×2 (03:16→18:39)
[2018-06-16 05:29] LABS: Glucose,Whole Blood 85 mg/dL (75-99)
[2018-06-16 05:35] LABS: Anisocytosis Slight; Basophils # (A) 0.1 k/uL (0-0.2); Basophils % (A) 1 %; Eosinophils # (A) 0.6 k/uL (0-0.7); Eosinophils % (A) 6 %; HCT 39.2 % (34.0-46.0); Hypochromasia Moderate; Lymphocytes # (A) 2.1 k/uL (1.0-4.8); Lymphocytes % (A) 23 %; MCH 28.3 pg (25.0-35.0); MCHC 30.6 g/dL (31.0-37.0); MCV 92.4 fL (80.0-100.0); Mean Platelet Volume 7.7; Monocytes # (A) 0.6 k/uL (0-1.0); Monocytes % (A) 7 %; Neutrophils # (A) 5.6 k/uL (1.3-7.7); Neutrophils % (A) 62 %; Platelet Count 242 k/uL (150-450); RBC 4.24 m/uL (3.80-5.40); RDW 19.1 % (11.5-15.5); WBC 9.2 k/uL (3.8-10.6)
[2018-06-16 05:52] LABS: Anion Gap 3 mmol/L; Blood Urea Nitrogen <2 mg/dL (7-17); Calcium 8.3 mg/dL (8.4-10.2); Carbon Dioxide 28 mmol/L (22-30); Chloride 109 mmol/L (98-107); Glucose 84 mg/dL (74-99); Magnesium 1.7 mg/dL (1.6-2.3); Phosphorus 2.9 mg/dL (2.5-4.5); Potassium 3.5 mmol/L (3.5-5.1); Sodium 140 mmol/L (137-145)
[2018-06-16] MEDS: CEFEPIME 2 GM in SODIUM CHLORIDE 0.9% 50 ML IVPB SCH ×3 (06:10→22:14)
--- NOTE | 2018-06-16 07:11 | XR ---
EXAMINATION TYPE: XR chest 1V portable DATE OF EXAM: 06/16/2018 HISTORY: Tube placement. REFERENCE: Previous study dated 06/15/2018. FINDINGS: There has been a midline sternotomy. There has been sideplate and screw fixation of the rig ht humerus. Patient is ET tube and NG tube remain in place, unchanged in appearance. Lung volumes are prominent. The heart is mildly prominent. There is left basilar airspace disease. I suspect small effusions. IMPRESSION: NO SIGNIFICANT INTERVAL CHANGE IN APPEARANCE OF THE CHEST.
[2018-06-16 07:49] LABS: ABG Base Excess 4.1 mmol/L; ABG HCO3 29 mmol/L (21-25); ABG Oxygen Saturation 98.6 % (94-97); ABG PCO2 45 mmHg (35-45); ABG PH 7.41 (7.35-7.45); ABG PO2 96 mmHg (83-108); ABG TCO2 30 mmol/L (19-24)
[2018-06-16] MEDS ORDERED: VANCOMYCIN TROUGH DUE 1 EACH MISC MISCELLANE ONE (08:00)
[2018-06-16] MEDS: MAGNESIUM SULFATE-D5W PMX 1 GM in DEXTROSE/WATER 1 100ML.BAG IVPB SCH ×2 (08:16→09:21)
[2018-06-16] MEDS: PANTOPRAZOLE 40 MG TABLET PO SCH (08:21)
[2018-06-16] MEDS: METOPROLOL TARTRATE 25 MG TAB PO SCH ×2 (08:21→21:05)
[2018-06-16] MEDS: POTASSIUM BICARBONATE/CIT AC 20 MEQ TABLET.EFF NG-TUBE SCH ×2 (08:21→08:47)
[2018-06-16] MEDS: CHLORHEXIDINE GLUCONATE 15 ML CUP MUCOUS MEM SCH ×2 (08:22→21:05)
[2018-06-16] MEDS ORDERED: POTASSIUM CHLORIDE 20 MEQ in WATER FOR INJECTION 1 100ML.BAG IVPB STA (08:47)
[2018-06-16] MEDS ORDERED: WARFARIN 5 MG TAB PO SCH (09:00)
--- NOTE | 2018-06-16 09:37 | ECHOF ---
Referral Reason:Possible endocarditis MEASUREMENTS -------- HEIGHT: 177.8 cm WEIGHT: 59.4 kg BP: IVSd: 1.5 cm (0.6 - 1.1) LVIDd: 4.2 cm (3.9 - 5.3) LVPWd: 1.6 cm (0.6 - 1.1) IVSs: 1.8 cm LVIDs: 3.2 cm LVPWs: 1.6 cm LA Diam: 5.3 cm (2.7 - 3.8) LAESV Index (A-L): 34.56 ml/m MV EXCURSION: 15.271 mm (> 18.000) MV EF SLOPE: 26 mm/s (70 - 150) EPSS: 0.8 cm MV E Edward: 1.51 m/s MV DecT: 197 ms MV A Edward: 1.35 m/s MV E/A Ratio: 1.12 AV maxP.71 mmHg AV meanP.61 mmHg AR PHT: 184 ms RAP: 5.00 mmHg RVSP: 29.91 mmHg FINDINGS -------- Sinus rhythm. This was a technically good study. The left ventricular size is normal. There is moderate concentric left ventricular hypertrophy. O verall left ventricular systolic function is mildly impaired with, an EF between 45 - 50 %. There i s paradoxical/dysynergic septal motion consistent with post-operative status. The right ventricle is normal in size and function. The left atrium is markedly dilated. LA is moderately dilated 34-39 ml/m2 The right atrium is normal in size. Peak/mean gradient across the Aortic Valve is 28.71mmHg / 15.61mmHg. Normally functioning mechanica l prosthetic valve. The mitral valve leaflets are mildly thickened. Mild mitral annular calcification present. Severe mitral regurgitation is present. Cannot rule out vegetation. Mild tricuspid regurgitation present. The right ventricular systolic pressure, as measured by Doppl er, is 29.91mmHg. Trace/mild (physiologic) pulmonic regurgitation. The aortic root size is normal. Normal inferior vena cava with normal inspiratory collapse consistent with estimated right atrial pre ssure of 5 mmHg. The pericardium is normal. CONCLUSIONS -------- 1. Sinus rhythm. 2. This was a technically good study. 3. The left ventricular size is normal. 4. There is moderate concentric left ventricular hypertrophy. 5. There is paradoxical/dysynergic septal motion consistent with post-operative status. 6. The right ventricle is normal in size and function. 7. The left atrium is markedly dilated. 8. LA is moderately dilated 34-39 ml/m2 9. The right atrium is normal in size. 10. Peak/mean gradient across the Aortic Valve is 28.71mmHg / 15.61mmHg. 11. Normally functioning mechanical prosthetic valve. 12. The mitral valve leaflets are mildly thickened. 13. Mild mitral annular calcification present. 14. Severe mitral regurgitation is present. 15. Cannot rule out vegetation. 16. Mild tricuspid regurgitation present. 17. The right ventricular systolic pressure, as measured by Doppler, is 29.91mmHg. 18. Trace/mild (physiologic) pulmonic regurgitation. 19. The aortic root size is normal. 20. Normal inferior vena cava with normal inspiratory collapse consistent with estimated right atrial pressure of 5 mmHg. 21. The pericardium is normal. PRESSER MACHINE: Milagros Sanchez RDCS
[2018-06-16 10:28] LABS: Glucose,Whole Blood 90 mg/dL (75-99)
[2018-06-16] MEDS: DULoxetine HCL 60 MG CAPSULE.DR PO SCH (11:50)
[2018-06-16] MEDS ORDERED: SENNOSIDES 8.6 MG TAB PO PRN (12:05)
[2018-06-16] MEDS ORDERED: ALBUTEROL NEBULIZED 2.5 MG/3 ML INHALATION PRN (12:05)
--- NOTE | 2018-06-16 12:30 | P.PN ---
Subjective Progress Note Date: 06/16/18 Principal diagnosis: Acute hypoxic respiratory failure, secondary to profound hypoglycemia and possible sepsis This is a 32-year-old female with history of multiple medical problems including Marfan syndrome, severe scoliosis, splenectomy, congestive heart failure, aortic valve graft surgery 2 last one at age 89 years old., previous CVA with residual right-sided weakness since 2017, Arnold-Chiari malformations, unknown type, history of spontaneous pneumothorax pectus excavatum, chronic back pain previous history of viral meningitis, and history of hepatitis C. According to the chart, and medical information was mostly obtained from the chart, patient presented yesterday at [facility] with multiple complaints, and she was found to have low blood pressure, urinary tract infection, patient was advised to be admitted. However the patient became extremely anxious, and she left the emergency room AGAINST MEDICAL ADVICE. Came back on her own to the ER at [facility] last night, she was not feeling better, complaining mostly of lightheadedness and dizziness dizziness, and she was more lightheaded and dizzy as she stood up. Apparently she had pressures documented in the 70s while she was at the emergency room at [facility]. Patient also had few episodes of nausea and vomiting and she was also complaining of some abdominal discomfort and painful urination. Patient had no fever no chills, she had occasional cough with yellow sputum. And upon presentation to the ER, the patient was doing relatively well however shortly after, patient was noted to have a sudden change in mental status, she became lethargic, and not responding appropriately. Narcan was given, blood sugar was 61 dextrose was given but no change in mentation, patient was intubated, placed on mechanical ventilation, and admitted to the intensive care unit. Drug screen was negative. Today the patient remains on mechanical ventilation, and her ventilator settings were reviewed she is presently on tidal volume of 400 FiO2 of 40% assist control rate of 16 and PEEP of 5. ABG showed a pO2 of 184 pCO2 of 46 pH of 7.34. CBC and basic metabolic profile were noted to be normal. Troponin is normal. Chest x-ray showed bibasilar atelectasis, questionable infiltrate, especially at the left base. 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 Unchanged. Reevaluated today on 06/16/2018, a shunt remains on mechanical ventilation, her ventilator settings are basically unchanged from yesterday. Her chest x-ray is unchanged, no evidence of active disease. ABG showed a pO2 of 96 pCO2 of 45 pH of 7.41 CBC is relatively normal, basic metabolic profile is normal, blood sugar was 85 this morning. Patient has been on propofol since yesterday, went ahead and held the propofol, awaken the patient, brief assessment of weaning parameters was done, proceeded to placing the patient on pressure support and CPAP, check endotracheal tube for leak, and it was present. Hence proceeded to extubation about half hour after good trial on pressure support and CPAP, and I was basically admitted for at the time. Patient was extubated to nasal cannula. Objective - Vital Signs Vital signs: Vital Signs Temp 98.1 F 06/16/18 08:00 Pulse 78 06/16/18 11:00 Resp 13 06/16/18 11:00 BP 114/49 06/16/18 11:00 Pulse Ox 96 06/16/18 11:00 Intake & Output 06/15/18 06/16/18 06/16/18 18:59 06:59 18:59 Intake Total 1620 900 925 Output Total 1930 2780 1560 Balance -310 -1880 -635 Weight 60.6 kg Intake: IV 1620 900 925 0.9 KVO 270 Cefepime 2 gm In Sodium 50 Chloride 0.9% 50 ml @ 100 mls/hr IVPB ONCE [facility] Rx# :[id number] Dextrose 5%-0.45% NaCl 1, 450 900 375 000 ml @ 75 mls/hr IV . [id number] [facility] Rx#:[id number] Magnesium Sulfate-D5w Pmx 100 1 gm In Dextrose/Water 1 100ml.bag @ 100 mls/hr IVPB Q1H [facility] Rx#: [id number] Magnesium Sulfate-D5w Pmx 200 1 gm In Dextrose/Water 1 100ml.bag @ 100 mls/hr IVPB Q1H [facility] Rx#: [id number] Potassium Chloride 20 meq 100 In Water For Injection 1 100ml.bag @ 50 mls/hr IVPB ONCE ONE Rx#: [id number] Potassium Chloride 20 meq 250 In Water For Injection 1 100ml.bag @ 50 mls/hr IVPB Q2H [facility] Rx#: [id number] Vancomycin 1,000 mg In 500 250 Sodium Chloride 0.9% 250 ml @ 125 mls/hr IVPB Q8H [facility] Rx#:[id number] Intake, IV Titration 0 Amount Propofol 1,000 mg In 0 Empty Bag 1 bag @ Titrate IV .Q0M [facility] Rx#: [id number] Output: Urine 1930 2780 1560 Other: Voiding Method Indwelling Catheter Indwelling Catheter Indwelling Catheter - Exam Physical Exam: Revealed a 32-year-old white female, on mechanical ventilation, in no distress. l, Head: Atraumatic, normocephalic. Endotracheal tube and orogastric tube are intact. HEENT:[Neck is supple.] [No neck masses.] [No thyromegaly.] [No JVD.] PERRLA, EOMI, no icterus. Chest: [Diminished breath sounds at the bases, no crackles, no rhonchi, no wheezes. Pectus excavatum of the chest is noted.] Cardiac Exam: [Normal S1 and S2, no S3 gallop, mechanical valve sound is noted. Abdomen: [Soft, nontender, no megaly, no rebound, no guarding, normal bowel sounds.] Extremities: [No clubbing, no edema, no cyanosis.] Good pulses bilaterally. Neurological Exam: Off propofol, patient was doing well, follows all simple instructions. Lymphatics: No lymphadenopathy. Psychiatric: Normal mood affect and mental status examination. Skin: Warm, dry, normal color, no rashes. - Labs CBC & Chem 7: 06/16/18 05:20 06/16/18 05:20 Labs: Abnormal Lab Results - Last 24 Hours (Table) 06/15/18 06/15/18 06/15/18 Range/Units 12:33 15:20 23:49 MCHC (31.0-37.0) g/dL RDW (11.5-15.5) % ABG HCO3 (21-25) mmol/L ABG Total CO2 (19-24) mmol/L ABG O2 Saturation (94-97) % Chloride (98-107) mmol/L BUN (7-17) mg/dL Creatinine (0.52-1.04) mg/dL POC Glucose (mg/dL) 197 H 70 L 74 L (75-99) mg/dL Calcium (8.4-10.2) mg/dL 06/16/18 06/16/18 06/16/18 Range/Units 01:42 05:20 05:20 MCHC 30.6 L (31.0-37.0) g/dL RDW 19.1 H (11.5-15.5) % ABG HCO3 (21-25) mmol/L ABG Total CO2 (19-24) mmol/L ABG O2 Saturation (94-97) % Chloride 109 H (98-107) mmol/L BUN <2 L (7-17) mg/dL Creatinine 0.37 L (0.52-1.04) mg/dL POC Glucose (mg/dL) 100 H (75-99) mg/dL Calcium 8.3 L (8.4-10.2) mg/dL 06/16/18 Range/Units 07:46 MCHC (31.0-37.0) g/dL RDW (11.5-15.5) % ABG HCO3 29 H (21-25) mmol/L ABG Total CO2 30 H (19-24) mmol/L ABG O2 Saturation 98.6 H (94-97) % Chloride (98-107) mmol/L BUN (7-17) mg/dL Creatinine (0.52-1.04) mg/dL POC Glucose (mg/dL) (75-99) mg/dL Calcium (8.4-10.2) mg/dL Microbiology - Last 24 Hours (Table) 06/14/18 18:05 Urine Culture - Final Urine,Voided 06/14/18 18:05 Blood Culture - Preliminary Blood No Growth after 24 hours 06/15/18 01:37 Gram Stain - Preliminary Sputum Sputum Culture - Preliminary Assessment and Plan Assessment: Impression: 1 acute hypoxic respiratory failure, exact etiology is not clear, however considering the clinical history, I would be more definitely concerned about the possibility of underlying sepsis and hypotension. There is also a possibility of profound hypoglycemia while she was in the ER that may have contributed to her sudden mental status change requiring intubation and mechanical ventilation. 2 acute urinary tract infection, final cultures are pending, patient will be empirically on antibiotics. 3 possible aspiration pneumonia as noted on the chest x-ray with bibasilar infiltrates, improving since initial chest x-ray on admission. 4 multiple comorbidities including Marfan's syndrome, previous CVA and right- sided weakness, history of splenectomy, history of aortic valve disease requiring surgery 2 last one at age 10 yeaRS. History of bacteremia secondary to enterococcus, history of endocarditis. Recommendation: Patient was placed on pressure support and CPAP, propofol was placed on hold, extubated while I was at bedside, plan to continue antibiotics empirically, await final cultures will continue to follow, will continue to monitor in the ICU today. We'll continue to monitor for any hypoglycemic episodes. Critical care time is 32 minutes. Time with Patient: Greater than 30
[2018-06-16 13:40] LABS: Glucose,Whole Blood 55 mg/dL (75-99)
[2018-06-16] MEDS: HYDROcodone/APAP 10-325MG 1 EACH TAB PO PRN ×2 (14:47→21:04)
[2018-06-16 15:07] LABS: Glucose,Whole Blood 154 mg/dL (75-99)
[2018-06-16 15:23] LABS: Magnesium 2.2 mg/dL (1.6-2.3); Potassium 3.5 mmol/L (3.5-5.1)
--- NOTE | 2018-06-16 15:35 | P.PN ---
Subjective Patient came in with with lethargy to protect the airway patient was intubated presently extubated patient was presumed to have sepsis had history of endocarditis echocardiogram is being obtain which showed severe mitral regurgitation patient had moderate mitral regurgitation the past. 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 Patient was evaluated infectious disease presently continue with antibiotics, we will leave the decision of CHIOMA to infectious disease. Patient is presently extubated awake comparing of back pain Objective - Vital Signs Vital signs: Vital Signs Temp 98.4 F 06/16/18 12:00 Pulse 97 06/16/18 15:00 Resp 24 06/16/18 15:00 BP 123/47 06/16/18 15:00 Pulse Ox 98 06/16/18 15:00 Intake & Output 06/15/18 06/16/18 06/16/18 18:59 06:59 18:59 Intake Total 5172 806 0056 Output Total 1930 2780 2885 Balance -310 -3097 -1033 Weight 60.6 kg Intake: IV 3884 999 0468 0.9 KVO 270 Cefepime 2 gm In Sodium 50 Chloride 0.9% 50 ml @ 100 mls/hr IVPB ONCE [facility] Rx# :[id number] Cefepime 2 gm In Sodium 50 Chloride 0.9% 50 ml @ 100 mls/hr IVPB Q8H [facility] Rx#: [id number] Dextrose 5%-0.45% NaCl 1, 450 900 675 000 ml @ 75 mls/hr IV . [id number] [facility] Rx#:[id number] Magnesium Sulfate-D5w Pmx 100 1 gm In Dextrose/Water 1 100ml.bag @ 100 mls/hr IVPB Q1H [facility] Rx#: [id number] Magnesium Sulfate-D5w Pmx 200 1 gm In Dextrose/Water 1 100ml.bag @ 100 mls/hr IVPB Q1H [facility] Rx#: [id number] Potassium Chloride 20 meq 100 In Water For Injection 1 100ml.bag @ 50 mls/hr IVPB ONCE [facility] Rx#: [id number] Potassium Chloride 20 meq 250 In Water For Injection 1 100ml.bag @ 50 mls/hr IVPB Q2H [facility] Rx#: [id number] Vancomycin 1,000 mg In 500 250 Sodium Chloride 0.9% 250 ml @ 125 mls/hr IVPB Q8H [facility] Rx#:[id number] Intake, IV Titration 0 Amount Propofol 1,000 mg In 0 Empty Bag 1 bag @ Titrate IV .Q0M [facility] Rx#: [id number] Output: Urine 1930 2780 2885 Other: Voiding Method Indwelling Catheter Indwelling Catheter Indwelling Catheter - Exam PHYSICAL EXAMINATION: GENERAL: The patient is alert and oriented x3, not in any acute distress. Well developed, well nourished. HEENT: Pupils are round and equally reacting to light. EOMI. No scleral icterus. No conjunctival pallor. Normocephalic, atraumatic. No pharyngeal erythema. No thyromegaly. CARDIOVASCULAR: S1 and S2 present. And does have a pansystolic murmur soft murmur in the mitral area, and a loud click the tricuspid and diuretic area PULMONARY: Rhonchus breath sounds ABDOMEN: Soft, nontender, nondistended, normoactive bowel sounds. No palpable organomegaly. MUSCULOSKELETAL: No joint swelling or deformity. EXTREMITIES: No cyanosis, clubbing, or pedal edema. NEUROLOGICAL: Gross neurological examination did not reveal any focal deficits. SKIN: No rashes. - Labs CBC & Chem 7: 06/16/18 05:20 06/16/18 14:55 Labs: Abnormal Lab Results - Last 24 Hours (Table) 06/15/18 06/16/18 06/16/18 Range/Units 23:49 01:42 05:20 MCHC 30.6 L (31.0-37.0) g/dL RDW 19.1 H (11.5-15.5) % ABG HCO3 (21-25) mmol/L ABG Total CO2 (19-24) mmol/L ABG O2 Saturation (94-97) % Chloride (98-107) mmol/L BUN (7-17) mg/dL Creatinine (0.52-1.04) mg/dL POC Glucose (mg/dL) 74 L 100 H (75-99) mg/dL Calcium (8.4-10.2) mg/dL 06/16/18 06/16/18 06/16/18 Range/Units 05:20 07:46 13:39 MCHC (31.0-37.0) g/dL RDW (11.5-15.5) % ABG HCO3 29 H (21-25) mmol/L ABG Total CO2 30 H (19-24) mmol/L ABG O2 Saturation 98.6 H (94-97) % Chloride 109 H (98-107) mmol/L BUN <2 L (7-17) mg/dL Creatinine 0.37 L (0.52-1.04) mg/dL POC Glucose (mg/dL) 55 L (75-99) mg/dL Calcium 8.3 L (8.4-10.2) mg/dL 06/16/18 Range/Units 14:55 MCHC (31.0-37.0) g/dL RDW (11.5-15.5) % ABG HCO3 (21-25) mmol/L ABG Total CO2 (19-24) mmol/L ABG O2 Saturation (94-97) % Chloride (98-107) mmol/L BUN (7-17) mg/dL Creatinine (0.52-1.04) mg/dL POC Glucose (mg/dL) 154 H (75-99) mg/dL Calcium (8.4-10.2) mg/dL Microbiology - Last 24 Hours (Table) 06/14/18 18:05 Urine Culture - Final Urine,Voided 06/14/18 18:05 Blood Culture - Preliminary Blood No Growth after 24 hours 06/15/18 01:37 Gram Stain - Preliminary Sputum Sputum Culture - Preliminary Assessment and Plan Plan: Acute hypoxic respiratory failure: Patient is intubated for airway protection and her lethargy is probably secondary to sepsis. 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 Patient will be continued on cefepime and vancomycin infectious disease will be consulted. Patient mitral regurgitation. It appears to be severe compared to her previous hospitalization patient is presently extubated extubated on 06/16/2018 -History of endocarditis in the past mechanical aortic valve -Mechanical prosthetic aortic valve: Coumadin will be continued at present dose INR is therapeutic. -CVA /TIA in the past History of IV drug use and hepatitis C. -Chronic low back pain
[2018-06-16] MEDS: GABAPENTIN 100 MG CAP PO SCH ×2 (15:44→21:05)
[2018-06-16] MEDS ORDERED: Potassium Replacement Protocol 1 EACH MISC MISCELLANE PRN (16:04)
[2018-06-16] MEDS: POTASSIUM CHLORIDE ER 20 MEQ TAB.ER PO SCH ×2 (16:13→17:03)
[2018-06-16] MEDS: VANCOMYCIN 1,250 MG in SODIUM CHLORIDE 0.9% 250 ML IVPB SCH (16:13)
[2018-06-16] MEDS: WARFARIN 2 MG TAB PO SCH (17:03)
[2018-06-16 20:58] LABS: Glucose,Whole Blood 117 mg/dL (75-99)
[2018-06-16] MEDS: OLANZapine 10 MG TAB PO SCH (21:05)
[2018-06-17] MEDS: HEPARIN SODIUM,PORCINE 5,000 UNIT/ML 1 ML VIAL SQ SCH ×3 (00:59→17:57)
[2018-06-17] MEDS: VANCOMYCIN 1,250 MG in SODIUM CHLORIDE 0.9% 250 ML IVPB SCH ×3 (00:59→17:57)
[2018-06-17 02:09] LABS: Glucose,Whole Blood 111 mg/dL (75-99)
[2018-06-17] MEDS: HYDROcodone/APAP 10-325MG 1 EACH TAB PO PRN ×4 (04:07→22:14)
[2018-06-17] MEDS: CEFEPIME 2 GM in SODIUM CHLORIDE 0.9% 50 ML IVPB SCH ×3 (06:18→21:04)
[2018-06-17] MEDS: DEXTROSE 5%-0.45% NACL 1,000 ML IV SCH ×2 (06:19→18:03)
[2018-06-17 07:14] LABS: Glucose,Whole Blood 87 mg/dL (75-99)
[2018-06-17 07:16] LABS: Anisocytosis Slight; Basophils # (A) 0.1 k/uL (0-0.2); Basophils % (A) 1 %; Eosinophils # (A) 0.8 k/uL (0-0.7); Eosinophils % (A) 12 %; HCT 38.7 % (34.0-46.0); Hypochromasia Slight; Lymphocytes # (A) 2.1 k/uL (1.0-4.8); Lymphocytes % (A) 31 %; MCH 28.3 pg (25.0-35.0); MCHC 31.1 g/dL (31.0-37.0); Mean Platelet Volume 7.5; Monocytes # (A) 0.6 k/uL (0-1.0); Monocytes % (A) 9 %; Neutrophils % (A) 44 %; Platelet Count 222 k/uL (150-450); RBC 4.25 m/uL (3.80-5.40); RDW 18.8 % (11.5-15.5); WBC 6.7 k/uL (3.8-10.6)
[2018-06-17 07:26] LABS: Anion Gap 3 mmol/L; Blood Urea Nitrogen 6 mg/dL (7-17); Calcium 8.3 mg/dL (8.4-10.2); Carbon Dioxide 28 mmol/L (22-30); Chloride 108 mmol/L (98-107); Glucose 84 mg/dL (74-99); Magnesium 1.9 mg/dL (1.6-2.3); Phosphorus 3.4 mg/dL (2.5-4.5); Potassium 4.5 mmol/L (3.5-5.1); Sodium 139 mmol/L (137-145)
[2018-06-17] MEDS: DULoxetine HCL 60 MG CAPSULE.DR PO SCH (09:52)
[2018-06-17] MEDS: PANTOPRAZOLE 40 MG TABLET PO SCH (09:52)
[2018-06-17] MEDS: METOPROLOL TARTRATE 25 MG TAB PO SCH ×2 (09:52→21:04)
[2018-06-17] MEDS: CHLORHEXIDINE GLUCONATE 15 ML CUP MUCOUS MEM SCH ×2 (09:52→21:06)
[2018-06-17 12:08] LABS: Glucose,Whole Blood 112 mg/dL (75-99)
--- NOTE | 2018-06-17 12:22 | P.PN ---
Subjective Progress Note Date: 06/17/18 Principal diagnosis: Acute hypoxic respiratory failure, secondary to profound hypoglycemia and possible sepsis This is a 32-year-old female with history of multiple medical problems including Marfan syndrome, severe scoliosis, splenectomy, congestive heart failure, aortic valve graft surgery 2 last one at age 89 years old., previous CVA with residual right-sided weakness since 2017, Arnold-Chiari malformations, unknown type, history of spontaneous pneumothorax pectus excavatum, chronic back pain previous history of viral meningitis, and history of hepatitis C. According to the chart, and medical information was mostly obtained from the chart, patient presented yesterday at [facility] with multiple complaints, and she was found to have low blood pressure, urinary tract infection, patient was advised to be admitted. However the patient became extremely anxious, and she left the emergency room AGAINST MEDICAL ADVICE. Came back on her own to the ER at [facility] last night, she was not feeling better, complaining mostly of lightheadedness and dizziness dizziness, and she was more lightheaded and dizzy as she stood up. Apparently she had pressures documented in the 70s while she was at the emergency room at [facility]. Patient also had few episodes of nausea and vomiting and she was also complaining of some abdominal discomfort and painful urination. Patient had no fever no chills, she had occasional cough with yellow sputum. And upon presentation to the ER, the patient was doing relatively well however shortly after, patient was noted to have a sudden change in mental status, she became lethargic, and not responding appropriately. Narcan was given, blood sugar was 61 dextrose was given but no change in mentation, patient was intubated, placed on mechanical ventilation, and admitted to the intensive care unit. Drug screen was negative. Today the patient remains on mechanical ventilation, and her ventilator settings were reviewed she is presently on tidal volume of 400 FiO2 of 40% assist control rate of 16 and PEEP of 5. ABG showed a pO2 of 184 pCO2 of 46 pH of 7.34. CBC and basic metabolic profile were noted to be normal. Troponin is normal. Chest x-ray showed bibasilar atelectasis, questionable infiltrate, especially at the left base. 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 Unchanged. Reevaluated today on 06/16/2018, patient remains on mechanical ventilation, her ventilator settings are basically unchanged from yesterday. Her chest x-ray is unchanged, no evidence of active disease. ABG showed a pO2 of 96 pCO2 of 45 pH of 7.41 CBC is relatively normal, basic metabolic profile is normal, blood sugar was 85 this morning. Patient has been on propofol since yesterday, went ahead and held the propofol, awaken the patient, brief assessment of weaning parameters was done, proceeded to placing the patient on pressure support and CPAP, check endotracheal tube for leak, and it was present. Hence proceeded to extubation about half hour after good trial on pressure support and CPAP, and I was basically admitted for at the time. Patient was extubated to nasal cannula. Examined today on 06/17/2018, patient was extubated yesterday and at night she was transferred out of the ICU to a regular medical floor. Examined today doing well, she is basically asymptomatic, denies any shortness of breath, no cough, no wheezing, no chest pain, no nausea, no vomiting, no abdominal pain. Actually patient feels great. CBC was noted to be normal. Basic metabolic profile was normal renal profile was normal. Blood sugar was 87 this morning. Objective - Vital Signs Vital signs: Vital Signs Temp 96.0 F L 06/17/18 06:15 Pulse 71 06/17/18 06:15 Resp 14 06/17/18 06:15 BP 113/57 06/17/18 06:15 Pulse Ox 94 L 06/17/18 06:15 Intake & Output 06/16/18 06/17/18 06/17/18 18:59 06:59 18:59 Intake Total 1691.511 Output Total 3085 Balance -1393.489 Intake: IV 1600 Cefepime 2 gm In Sodium 50 Chloride 0.9% 50 ml @ 100 mls/hr IVPB Q8H [facility] Rx#: [id number] Dextrose 5%-0.45% NaCl 1, 750 000 ml @ 75 mls/hr IV . [id number] [facility] Rx#:[id number] Magnesium Sulfate-D5w Pmx 200 1 gm In Dextrose/Water 1 100ml.bag @ 100 mls/hr IVPB Q1H [facility] Rx#: [id number] Potassium Chloride 20 meq 100 In Water For Injection 1 100ml.bag @ 50 mls/hr IVPB ONCE [facility] Rx#: [id number] Vancomycin 1,000 mg In 250 Sodium Chloride 0.9% 250 ml @ 125 mls/hr IVPB Q8H [facility] Rx#:[id number] Vancomycin 1,250 mg In 250 Sodium Chloride 0.9% 250 ml @ 125 mls/hr IVPB Q8HR [facility] Rx#:[id number] Intake, IV Titration 91.511 Amount Propofol 1,000 mg In 91.511 Empty Bag 1 bag @ Titrate IV .Q0M [facility] Rx#: [id number] Output: Urine 3085 Other: Voiding Method Indwelling Catheter Indwelling Catheter # Voids 2 2 - Exam Physical Exam: Revealed a 32-year-old white female, on 2 L nasal cannula, in no distress Head: Atraumatic, normocephalic. HEENT:[Neck is supple.] [No neck masses.] [No thyromegaly.] [No JVD.] PERRLA, EOMI, no icterus. Chest: [Pectus excavatum chest, good breath sound bilaterally, no rhonchi and no wheezes. Cardiac Exam: [Normal S1 and S2, no S3 gallop, mechanical valve sound is noted. Abdomen: [Soft, nontender, no megaly, no rebound, no guarding, normal bowel sounds.] Extremities: [No clubbing, no edema, no cyanosis.] Good pulses bilaterally. Neurological Exam: Alert oriented 3, no gross focal neurologic deficits. Lymphatics: No lymphadenopathy. Psychiatric: Normal mood affect and mental status examination. Skin: Warm, dry, normal color, no rashes. - Labs CBC & Chem 7: 06/17/18 06:50 06/17/18 06:50 Labs: Abnormal Lab Results - Last 24 Hours (Table) 06/16/18 06/16/18 06/16/18 Range/Units 13:39 14:55 20:56 RDW (11.5-15.5) % Eosinophils # (0-0.7) k/uL Chloride (98-107) mmol/L BUN (7-17) mg/dL Creatinine (0.52-1.04) mg/dL POC Glucose (mg/dL) 55 L 154 H 117 H (75-99) mg/dL Calcium (8.4-10.2) mg/dL 06/17/18 06/17/18 06/17/18 Range/Units 02:07 06:50 06:50 RDW 18.8 H (11.5-15.5) % Eosinophils # 0.8 H (0-0.7) k/uL Chloride 108 H (98-107) mmol/L BUN 6 L (7-17) mg/dL Creatinine 0.39 L (0.52-1.04) mg/dL POC Glucose (mg/dL) 111 H (75-99) mg/dL Calcium 8.3 L (8.4-10.2) mg/dL 06/17/18 Range/Units 12:06 RDW (11.5-15.5) % Eosinophils # (0-0.7) k/uL Chloride (98-107) mmol/L BUN (7-17) mg/dL Creatinine (0.52-1.04) mg/dL POC Glucose (mg/dL) 112 H (75-99) mg/dL Calcium (8.4-10.2) mg/dL Microbiology - Last 24 Hours (Table) 06/15/18 01:37 Gram Stain - Final Sputum Sputum Culture - Final 06/14/18 18:05 Blood Culture - Preliminary Blood No Growth after 48 hours Assessment and Plan Assessment: Impression: 1 acute hypoxic respiratory failure, exact etiology is not clear, however considering the clinical history, I would be more definitely concerned about the possibility of underlying sepsis and hypotension. There is also a possibility of profound hypoglycemia while she was in the ER that may have contributed to her sudden mental status change requiring intubation and mechanical ventilation. Patient was extubated on 06/16/2018, tolerated the extubation well, presently on a regular medical floor. And the relatively asymptomatic. 2 acute urinary tract infection, final cultures are pending, will continue empiric antibiotics. Especially with her history of enterococcus sepsis. 3 possible aspiration pneumonia as noted on the chest x-ray with bibasilar infiltrates, improving since initial chest x-ray on admission. 4 multiple comorbidities including Marfan's syndrome, previous CVA and right- sided weakness, history of splenectomy, history of aortic valve disease requiring surgery 2 last one at age 10 yeaRS. History of bacteremia secondary to enterococcus, history of endocarditis. Recommendation: Continue present supportive care measures, including antibiotics , updrafts, Coumadin, and adjust according to the pro time and INR, make sure that it is therapeutic, continue cardiac meds, continue to monitor sugar closely , not quite ready for discharge planning, possibly in the next 48 hours. Patient continues to have multiple complex issues not to mention that the exact etiology of her respiratory failure remains not quite clear. Time with Patient: Less than 30
--- NOTE | 2018-06-17 14:46 | P.PN ---
Subjective Patient came in with with lethargy to protect the airway patient was intubated presently extubated patient was presumed to have sepsis had history of endocarditis echocardiogram is being obtain which showed severe mitral regurgitation patient had moderate mitral regurgitation the past. 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 Patient was evaluated infectious disease presently continue with antibiotics, we will leave the decision of CHIOMA to infectious disease. Patient is presently extubated awake comparing of back pain 06/17/2018 Patient is doing much better today transfer out of ICU no complaints today. I' ll have to discuss with infectious disease regarding an echocardiogram considering her mitral regurgitation worsening. Constitutional: Denied any fatigue denied any fever. Cardio vascular: denied any chest pain, palpitations Gastrointestinal denied any nausea vomiting Pulmonary: Denied any shortness of breath cough Neurologic denied any new focal deficits Objective - Vital Signs Vital signs: Vital Signs Temp 96.0 F L 06/17/18 06:15 Pulse 71 06/17/18 06:15 Resp 14 06/17/18 06:15 BP 113/57 06/17/18 06:15 Pulse Ox 94 L 06/17/18 06:15 Intake & Output 06/16/18 06/17/18 06/17/18 18:59 06:59 18:59 Intake Total 1691.511 Output Total 3085 Balance -1393.489 Intake: IV 1600 Cefepime 2 gm In Sodium 50 Chloride 0.9% 50 ml @ 100 mls/hr IVPB Q8H [facility] Rx#: [id number] Dextrose 5%-0.45% NaCl 1, 750 000 ml @ 75 mls/hr IV . [id number] [facility] Rx#:[id number] Magnesium Sulfate-D5w Pmx 200 1 gm In Dextrose/Water 1 100ml.bag @ 100 mls/hr IVPB Q1H [facility] Rx#: [id number] Potassium Chloride 20 meq 100 In Water For Injection 1 100ml.bag @ 50 mls/hr IVPB ONCE ONE Rx#: [id number] Vancomycin 1,000 mg In 250 Sodium Chloride 0.9% 250 ml @ 125 mls/hr IVPB Q8H [facility] Rx#:[id number] Vancomycin 1,250 mg In 250 Sodium Chloride 0.9% 250 ml @ 125 mls/hr IVPB Q8HR [facility] Rx#:[id number] Intake, IV Titration 91.511 Amount Propofol 1,000 mg In 91.511 Empty Bag 1 bag @ Titrate IV .Q0M [facility] Rx#: [id number] Output: Urine 3085 Other: Voiding Method Indwelling Catheter Indwelling Catheter # Voids 2 2 - Exam PHYSICAL EXAMINATION: GENERAL: The patient is alert and oriented x3, not in any acute distress. Well developed, well nourished. HEENT: Pupils are round and equally reacting to light. EOMI. No scleral icterus. No conjunctival pallor. Normocephalic, atraumatic. No pharyngeal erythema. No thyromegaly. CARDIOVASCULAR: S1 and S2 present. And does have a pansystolic murmur soft murmur in the mitral area, and a loud click the tricuspid and diuretic area PULMONARY: Rhonchus breath sounds ABDOMEN: Soft, nontender, nondistended, normoactive bowel sounds. No palpable organomegaly. MUSCULOSKELETAL: No joint swelling or deformity. EXTREMITIES: No cyanosis, clubbing, or pedal edema. NEUROLOGICAL: Gross neurological examination did not reveal any focal deficits. SKIN: No rashes. - Labs CBC & Chem 7: 06/17/18 06:50 06/17/18 06:50 Labs: Abnormal Lab Results - Last 24 Hours (Table) 06/16/18 06/16/18 06/17/18 Range/Units 14:55 20:56 02:07 RDW (11.5-15.5) % Eosinophils # (0-0.7) k/uL Chloride (98-107) mmol/L BUN (7-17) mg/dL Creatinine (0.52-1.04) mg/dL POC Glucose (mg/dL) 154 H 117 H 111 H (75-99) mg/dL Calcium (8.4-10.2) mg/dL 06/17/18 06/17/18 06/17/18 Range/Units 06:50 06:50 12:06 RDW 18.8 H (11.5-15.5) % Eosinophils # 0.8 H (0-0.7) k/uL Chloride 108 H (98-107) mmol/L BUN 6 L (7-17) mg/dL Creatinine 0.39 L (0.52-1.04) mg/dL POC Glucose (mg/dL) 112 H (75-99) mg/dL Calcium 8.3 L (8.4-10.2) mg/dL Microbiology - Last 24 Hours (Table) 06/15/18 01:37 Gram Stain - Final Sputum Sputum Culture - Final 06/14/18 18:05 Blood Culture - Preliminary Blood No Growth after 48 hours Assessment and Plan Plan: Acute hypoxic respiratory failure: Patient is intubated for airway protection and her lethargy is probably secondary to sepsis. 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 Patient will be continued on cefepime and vancomycin infectious disease will be consulted. Patient mitral regurgitation. It appears to be severe compared to her previous hospitalization patient is presently extubated extubated on 06/16/2018. Although there is no clear evidence that she has recurrence of endocarditis so far blood cultures are negative. I'll discuss with infectious disease regarding further plans. If her blood cultures remains negative probably She can be discharged tomorrow. -History of endocarditis in the past mechanical aortic valve -Mechanical prosthetic aortic valve: Coumadin will be continued at present dose INR is therapeutic. -CVA /TIA in the past History of IV drug use and hepatitis C. -Chronic low back pain
[2018-06-17 16:55] LABS: Glucose,Whole Blood 121 mg/dL (75-99)
[2018-06-17] MEDS: GABAPENTIN 100 MG CAP PO SCH ×2 (17:57→21:04)
[2018-06-17] MEDS: WARFARIN 2 MG TAB PO SCH (18:21)
[2018-06-17] MEDS ORDERED: ALPRAZolam 0.5 MG TAB PO STA (18:48)
[2018-06-17] MEDS: OLANZapine 10 MG TAB PO SCH (21:04)
[2018-06-17 21:19] LABS: Glucose,Whole Blood 226 mg/dL (75-99)
[2018-06-18 02:24] LABS: Glucose,Whole Blood 172 mg/dL (75-99)
[2018-06-18] MEDS: CEFEPIME 2 GM in SODIUM CHLORIDE 0.9% 50 ML IVPB SCH ×3 (05:42→21:35)
[2018-06-18] MEDS ORDERED: VANCOMYCIN TROUGH DUE 1 EACH MISC MISCELLANE ONE (07:00)
[2018-06-18 07:16] LABS: Glucose,Whole Blood 88 mg/dL (75-99)
[2018-06-18] MEDS: HYDROcodone/APAP 10-325MG 1 EACH TAB PO PRN ×3 (07:53→21:40)
[2018-06-18] MEDS: GABAPENTIN 100 MG CAP PO SCH ×3 (07:54→21:38)
[2018-06-18] MEDS: HEPARIN SODIUM,PORCINE 5,000 UNIT/ML 1 ML VIAL SQ SCH ×4 (07:54→23:41)
[2018-06-18] MEDS: CHLORHEXIDINE GLUCONATE 15 ML CUP MUCOUS MEM SCH ×2 (07:54→21:34)
[2018-06-18] MEDS: VANCOMYCIN 1,250 MG in SODIUM CHLORIDE 0.9% 250 ML IVPB SCH ×3 (07:55)
[2018-06-18] MEDS: DEXTROSE 5%-0.45% NACL 1,000 ML IV SCH ×2 (07:55→23:41)
[2018-06-18] MEDS: PANTOPRAZOLE 40 MG TABLET PO SCH (07:55)
[2018-06-18] MEDS: DULoxetine HCL 60 MG CAPSULE.DR PO SCH (07:56)
[2018-06-18] MEDS: METOPROLOL TARTRATE 25 MG TAB PO SCH ×2 (07:56→21:36)
[2018-06-18 08:01] LABS: Anisocytosis Slight; Basophils # (A) 0.1 k/uL (0-0.2); Basophils % (A) 2 %; Eosinophils # (A) 0.9 k/uL (0-0.7); Eosinophils % (A) 15 %; HCT 39.4 % (34.0-46.0); HGB 12.3 gm/dL (11.4-16.0); Hypochromasia Marked; Lymphocytes % (A) 32 %; MCH 29.4 pg (25.0-35.0); MCHC 31.2 g/dL (31.0-37.0); Mean Platelet Volume 7.7; Monocytes # (A) 0.6 k/uL (0-1.0); Monocytes % (A) 9 %; Neutrophils # (A) 2.5 k/uL (1.3-7.7); Neutrophils % (A) 39 %; Platelet Count 249 k/uL (150-450); RBC 4.19 m/uL (3.80-5.40); RDW 18.9 % (11.5-15.5); WBC 6.4 k/uL (3.8-10.6)
[2018-06-18 08:12] LABS: Anion Gap 2 mmol/L; Blood Urea Nitrogen 6 mg/dL (7-17); Calcium 8.1 mg/dL (8.4-10.2); Carbon Dioxide 31 mmol/L (22-30); Chloride 108 mmol/L (98-107); Glucose 76 mg/dL (74-99); Magnesium 1.7 mg/dL (1.6-2.3); Phosphorus 3.4 mg/dL (2.5-4.5); Potassium 4.2 mmol/L (3.5-5.1); Sodium 141 mmol/L (137-145)
[2018-06-18] MEDS ORDERED: VANCOMYCIN IV PER PHARMACY 1 EACH MISC MISCELLANE PRN (09:31)
--- NOTE | 2018-06-18 10:52 | CDI ---
Last Revision, August 2017 Documentation Clarification Form Date: 06/18/2018 10:41:30 AM From: Vanessa Cardenas RN, CCDS Admit Date: 06/14/2018 11:46:00 PM Patient Name: Arlin Gilmore Visit Number: [id number] ATTENTION: The Clinical Documentation Specialists (CDI) and [facility] Coding Staff appreciate your assistance in clarifying documentation. Please respond to the clarification below the line at the bottom and electronically sign. The CDI & [facility] Coding staff will review the response and follow-up if needed. Please note: Queries are made part of the Legal Health Record. If you have any questions, please contact the author of this message via ITS. Glenn Desai MD Hx of CHF is documented and requires further specificity. History/Risk Factors: CHF, Aortic valve surgery x 2, endocarditis, CVA, Marfan's syndrome Clinical Indicators: VS/Pulse OX: temp 97.8, HR 76, RR 18, B/P 120/472, spo2 100% ra BNP: not checked 06/15 Echocardiogram Results: Ef 45-50%, severe mitral regurg, paradoxical septal wall motion 06/14 Chest X Ray: "There is increased interstitial infiltrate in the lower lobes compared to last exam. There is some small coalescent new infiltrate at the right lung base. Treatment: At current none- pt received 2.5L IVF Bolus In your professional opinion, can you please clarify the acuity and type of CHF if known? Chronic Systolic Heart Failure: Chronic Diastolic Heart Failure: Chronic Systolic & Diastolic Heart Failure: Unable to Determine Other, please specify Please continue to document in your progress notes and discharge summary in order to capture severity of illness and risk of mortality. Include clinical findings that support your diagnosis. No CHF MTDD
--- NOTE | 2018-06-18 11:26 | CDI ---
Last Revision, August 2017 Documentation Clarification Form Date: 06/18/2018 10:57:00 AM From: Vanessa Cardenas RN, CCDs Admit Date: 06/14/2018 11:46:00 PM Patient Name: Arlin Gilmore Visit Number: [id number] ATTENTION: The Clinical Documentation Specialists (CDI) and [facility] Coding Staff appreciate your assistance in clarifying documentation. Please respond to the clarification below the line at the bottom and electronically sign. The CDI & [facility] Coding staff will review the response and follow-up if needed. Please note: Queries are made part of the Legal Health Record. If you have any questions, please contact the author of this message via ITS. Glenn Foster MD History/Risk Factors: IVDA, Hepatitis C, Smoker, Marfan's syndrome, Chairi malformation, Clinical Indicators: Patients weight is 58 kg Patients height is 71 in Calculated BMI is 17.8 Skin care/assessment Diagnostic tests: labs daily Treatments: Daily weights per unit protocol Nutritional Education: pt is sedated on mechanical vent Dietary Consult: Not ordered at this time 3L IVF bolus Multiple doses of D50 IVP Ivpb Mag In order to capture the severity of condition associated with patient BMI of 17.8, a clinical diagnoses needs to be documented by the physician. Please clarify: Moderate Protein-Calorie Malnutrition Severe Protein-Calorie Malnutrition Emaciated Cachexia Other Unable to determine Please continue to document in your progress notes and discharge summary in order to capture severity of illness and risk of mortality. Include clinical findings that support your diagnosis. No Mal nutrition MTDD
[2018-06-18 12:11] LABS: Glucose,Whole Blood 144 mg/dL (75-99)
--- NOTE | 2018-06-18 12:18 | PN ---
PROGRESS NOTE DATE OF SERVICE: 06/17/2018 REASON FOR CONSULTATION FOLLOWUP: Possible endocarditis and need for CHIOMA. HISTORY OF PRESENT ILLNESS: The patient is a 32-year-old female, who has been brought into the ER on 06/14/2018, presented to the hospital with dizziness and vomiting. The patient previously was evaluated for the same at the [facility] and left AGAINST MEDICAL ADVICE. The patient has been feeling lightheaded and she was hypertensive on arrival to the ER. The patient was complaining of some suprapubic difficult for and painful urination, but no urgency or any frequency. On admission the patient has been afebrile. Her white count was not significantly elevated only 10.9 on admission. The patient's liver enzymes were significantly elevated. Urine was positive with moderate leukocyte esterases, 16 WBCs. Urine drug screen was positive for marijuana. The patient did have a chest x-ray, which showed no significant interval change in appearance of the chest with some left basilar airspace disease. Her blood culture has been negative. I was asked to see the patient today with concern for possible endocarditis and need for CHIOMA. However, the patient has been afebrile as mentioned earlier and the blood cultures has been negative. The patient not a very good historian now specifically for symptomatology today, though denies having any chest pain. She did have very minimal cough not bringing up sputum. No abdominal pain or any diarrhea. REVIEW OF SYSTEMS: Positive points have been mentioned in HPI. The rest of the systems has been negative. Her past medical history and surgical history were reviewed. MEDICATIONS: Medications were reviewed. The patient currently on cefepime and vancomycin in addition to other medication. PHYSICAL EXAMINATION: On examination blood pressure is 113/57 with a pulse of 71, temperature 96. She is 94% on 2 L nasal cannula. General description is a middle-aged female lying in bed in no distress. HEENT EXAMINATION: No pallor or scleral icterus. Oral mucous membrane is dry. NECK: Trachea central. No thyromegaly. LUNGS: Unlabored breathing, decreased breath sounds in the bases. No wheeze. HEART: S1, S2. Regular rate and rhythm. No loud murmur. ABDOMEN: Soft, no tenderness. No guarding or rigidity. EXTREMITIES: No edema of feet. SKIN EXAMINATION: No rash or mass palpable. NEUROLOGIC: Awake, alert, oriented x3. Mood and affect normal. LABS: Hemoglobin 12.9, white count 6.4, admission white count was 10.9. Blood culture has been negative so far. Urine was positive. Urine culture so far negative. Sputum is so far no acute respiratory jake. DIAGNOSTIC IMPRESSION AND PLAN: Patient admitted to the hospital with weakness and dizziness, which is likely multifactorial, possibly metabolic infectious etiology could include a possible pneumonia or a urinary tract infection. Clinically doubt endocarditis in view of no stigmata and blood culture has been negative. Patient with no fever or elevated white count. PLAN: 1. No need for CHIOMA at this point. 2. We will keep the patient on vancomycin while waiting for the culture to finalize and Dr. Tyler will be back tomorrow for discharge antibiotic recommendation. MMODL / IJN: [id number] /
--- NOTE | 2018-06-18 13:33 | P.PN ---
Subjective Progress Note Date: 06/18/18 Principal diagnosis: Mental status changes, respiratory failure Progress note dated 06/18/2018 This is a 32-year-old female with a history of acute hypoxemic respiratory failure of unclear etiology. My partner thought it may relate to sepsis and hypotension and/or hypoglycemia. The patient was intubated and eventually extubated on June 16. She also has history of acute urinary tract infection possible aspiration pneumonia Marfan syndrome previous CVA with right-sided weakness splenectomy aortic valve disease requiring surgery 2 and enterococcus bacteremia with endocarditis. The patient is doing reasonably well. She's not requiring any supplemental oxygen. She is hoping to be discharged to home in the near future. She denies any pain. She denies any shortness of breath chest tightness wheezing cough or phlegm production. Objective - Vital Signs Vital signs: Vital Signs Temp 98.0 F 06/18/18 07:00 Pulse 65 06/18/18 07:00 Resp 18 06/18/18 07:00 BP 113/68 06/18/18 07:00 Pulse Ox 92 L 06/18/18 07:00 Intake & Output 06/17/18 06/18/18 06/18/18 18:59 06:59 18:59 Intake Total 1000 Balance 1000 Weight 58 kg Intake: Oral 1000 Other: Voiding Method Bedside Commode # Voids 4 2 - Exam No acute distress, oriented 3. Not requiring any supplemental oxygen at this time. HEENT examination is grossly unremarkable. Mucous membranes are moist. No oral lesions. Neck supple. Full range of motion. No adenopathy thyromegaly or neck vein distention. Cardiovascular examination reveals regular rhythm rate. S1-S2 normal. No S3 or S4. Mechanical heart valve sound is heard. Lungs reveal clear breath sounds. Her sounds are equal bilaterally. No adventitious lung sounds including wheezes rhonchi or crackles. Abdomen soft bowel sounds are heard. No masses or tenderness. Extremities are intact. No cyanosis clubbing or edema. Skin is without rash or lesion. Neurologic examination is brief but nonfocal. - Labs CBC & Chem 7: 06/18/18 07:45 06/18/18 07:45 Labs: Abnormal Lab Results - Last 24 Hours (Table) 06/17/18 06/17/18 06/18/18 Range/Units 16:51 21:13 02:20 RDW (11.5-15.5) % Eosinophils # (0-0.7) k/uL Chloride (98-107) mmol/L Carbon Dioxide (22-30) mmol/L BUN (7-17) mg/dL Creatinine (0.52-1.04) mg/dL POC Glucose (mg/dL) 121 H 226 H 172 H (75-99) mg/dL Calcium (8.4-10.2) mg/dL Vancomycin Trough ug/mL 06/18/18 06/18/18 06/18/18 Range/Units 07:45 07:45 07:45 RDW 18.9 H (11.5-15.5) % Eosinophils # 0.9 H (0-0.7) k/uL Chloride 108 H (98-107) mmol/L Carbon Dioxide 31 H (22-30) mmol/L BUN 6 L (7-17) mg/dL Creatinine 0.49 L (0.52-1.04) mg/dL POC Glucose (mg/dL) (75-99) mg/dL Calcium 8.1 L (8.4-10.2) mg/dL Vancomycin Trough 30.2 H* ug/mL 06/18/18 Range/Units 12:07 RDW (11.5-15.5) % Eosinophils # (0-0.7) k/uL Chloride (98-107) mmol/L Carbon Dioxide (22-30) mmol/L BUN (7-17) mg/dL Creatinine (0.52-1.04) mg/dL POC Glucose (mg/dL) 144 H (75-99) mg/dL Calcium (8.4-10.2) mg/dL Vancomycin Trough ug/mL Microbiology - Last 24 Hours (Table) 06/14/18 18:05 Blood Culture - Preliminary Blood No Growth after 72 hours 06/15/18 01:37 Gram Stain - Final Sputum Sputum Culture - Final Assessment and Plan Assessment: Assessment Hypoxemic respiratory failure requiring intubation and mechanical ventilation of unclear etiology Possible sepsis secondary to urinary tract infection Mental status changes, improved Possible aspiration pneumonia History of Marfan's syndrome Previous CVA with right-sided weakness History splenectomy History of aortic valve disease requiring surgery 2 Enterococcus endocarditis and bacteremia Plan: Plan dated 06/18/2018 CBC is essentially normal with a normal white count hemoglobin and hematocrit and platelet count. Sodium 141 potassium 4.2 chloride 108 CO2 31 BUN 6 creatinine 0.49. Microbiology is currently still negative. The patient remains on cefepime as a single antibiotic. Vancomycin was discontinued. Getting input from infectious disease. Additional recommendations and suggestions are forthcoming. Prognosis is guarded. Time with Patient: Less than 30
[2018-06-18 17:04] LABS: Glucose,Whole Blood 130 mg/dL (75-99)
--- NOTE | 2018-06-18 18:02 | P.PN ---
Subjective Progress Note Date: 06/18/18 Progress note being dictated for Dr. Payan. Interval history:Patient came in with with lethargy to protect the airway patient was intubated presently extubated patient was presumed to have sepsis had history of endocarditis echocardiogram is being obtain which showed severe mitral regurgitation patient had moderate mitral regurgitation the past. 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 Patient was evaluated infectious disease presently continue with antibiotics, we will leave the decision of CHIOMA to infectious disease. Patient is presently extubated awake comparing of back pain 06/17/2018 Patient is doing much better today transfer out of ICU no complaints today. I' ll have to discuss with infectious disease regarding an echocardiogram considering her mitral regurgitation worsening. Constitutional: Denied any fatigue denied any fever. Cardio vascular: denied any chest pain, palpitations Gastrointestinal denied any nausea vomiting Pulmonary: Denied any shortness of breath cough Neurologic denied any new focal deficits 06/18/2018 maintained on IV antibiotics of cefepime, vancomycin discontinued. afebrile, blood cultures negative. No need for CHIOMA at this time as per infectious disease. Denies chest pain, palpitations or increased shortness of breath. Good diet intake, denies nausea vomiting or diarrhea. No abdominal pain. Blood sugars controlled. Objective - Vital Signs Vital signs: Vital Signs Temp 98.3 F 06/18/18 14:36 Pulse 74 06/18/18 14:36 Resp 16 06/18/18 14:36 BP 115/64 06/18/18 14:36 Pulse Ox 92 L 06/18/18 14:36 Intake & Output 06/17/18 06/18/18 06/18/18 18:59 06:59 18:59 Intake Total 1000 Balance 1000 Weight 58 kg Intake: Oral 1000 Other: Voiding Method Bedside Commode # Voids 4 2 3 # Bowel Movements 1 - Exam GENERAL: The patient is alert and oriented x3, not in any acute distress. HEENT: Pupils are round and equally reacting to light. EOMI. No scleral icterus. No conjunctival pallor. Normocephalic, atraumatic. CARDIOVASCULAR: S1 and S2 present. And does have a pansystolic murmur soft murmur in the mitral area, and a loud click the tricuspid and diuretic area PULMONARY: Essentially clear, bilateral bases diminished ABDOMEN: Soft, nontender, nondistended, normoactive bowel sounds. No palpable organomegaly. MUSCULOSKELETAL: No joint swelling or deformity. EXTREMITIES: No cyanosis, clubbing, or pedal edema. NEUROLOGICAL: Gross neurological examination did not reveal any focal deficits. SKIN: No rashes. - Labs CBC & Chem 7: 06/18/18 07:45 06/18/18 07:45 Labs: Abnormal Lab Results - Last 24 Hours (Table) 06/17/18 06/18/18 06/18/18 Range/Units 21:13 02:20 07:45 RDW 18.9 H (11.5-15.5) % Eosinophils # 0.9 H (0-0.7) k/uL Chloride (98-107) mmol/L Carbon Dioxide (22-30) mmol/L BUN (7-17) mg/dL Creatinine (0.52-1.04) mg/dL POC Glucose (mg/dL) 226 H 172 H (75-99) mg/dL Calcium (8.4-10.2) mg/dL Vancomycin Trough ug/mL 06/18/18 06/18/18 06/18/18 Range/Units 07:45 07:45 12:07 RDW (11.5-15.5) % Eosinophils # (0-0.7) k/uL Chloride 108 H (98-107) mmol/L Carbon Dioxide 31 H (22-30) mmol/L BUN 6 L (7-17) mg/dL Creatinine 0.49 L (0.52-1.04) mg/dL POC Glucose (mg/dL) 144 H (75-99) mg/dL Calcium 8.1 L (8.4-10.2) mg/dL Vancomycin Trough 30.2 H* ug/mL 06/18/18 Range/Units 17:01 RDW (11.5-15.5) % Eosinophils # (0-0.7) k/uL Chloride (98-107) mmol/L Carbon Dioxide (22-30) mmol/L BUN (7-17) mg/dL Creatinine (0.52-1.04) mg/dL POC Glucose (mg/dL) 130 H (75-99) mg/dL Calcium (8.4-10.2) mg/dL Vancomycin Trough ug/mL Microbiology - Last 24 Hours (Table) 06/14/18 18:05 Blood Culture - Preliminary Blood No Growth after 72 hours Assessment and Plan Assessment: Acute hypoxic respiratory failure, status post mechanical ventilation probably secondary to sepsis. 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 -Mechanical prosthetic aortic valve: Coumadin will be continued -CVA /TIA in the past History of IV drug use and hepatitis C. -Chronic low back pain Plan: Continue on current medication regime ,monitoring and symptomatic treatment. PT/INR pending. Maintain IV antibiotics as per infectious disease. Final cultures pending. Discharge planning in progress. Social work discussing with public legal guardian regarding placement. The impression and plan of care has been dictated as directed. : I performed a history and examination of this patient, discussed the same with the dictator. I agree with the dictator's note ,documented as a scribe. Any additional findings or plans will be noted.
[2018-06-18 18:49] LABS: Prothrombin Time 18.4 sec (9.0-12.0)
[2018-06-18] MEDS: WARFARIN 2 MG TAB PO SCH (18:53)
[2018-06-18] MEDS: OLANZapine 10 MG TAB PO SCH (21:38)
[2018-06-18 21:48] LABS: Glucose,Whole Blood 122 mg/dL (75-99)
--- NOTE | 2018-06-18 22:45 | PN ---
PROGRESS NOTE DATE OF SERVICE: 06/18/2018 REASON FOR FOLLOWUP: Possible urinary tract infection. INTERVAL HISTORY: The patient is currently afebrile. She is more awake, alert. She is breathing comfortably. She did have some cough on admission that seems to have resolved and her urinary symptoms have improved. Denies having any diarrhea. PHYSICAL EXAMINATION: Blood pressure 115/64 with a pulse of 74, temperature 98.3. She is 92% on room air. General description is a middle-aged female lying in bed in no distress. RESPIRATORY SYSTEM: Unlabored breathing with decreased breath sounds in the bases. No wheeze. HEART: S1, S2. Regular rate and rhythm. ABDOMEN: Soft. No tenderness. LABS: Hemoglobin is 12.3, white count of 6.4 with a BUN of 6, creatinine 0.49. Vancomycin trough was elevated at 30. Sputum has been usual respiratory jake. Urine has been negative. DIAGNOSTIC IMPRESSION AND PLAN: Patient admitted to hospital with mental status changes which are likely multifactorial with a possible component of urinary tract infection plus or minus pneumonia. Clinical suspicion is low for endocarditis. Patient's culture has been negative, so for any resistant pathogen she will need to have significantly elevated vancomycin trough. The vancomycin has been discontinued; currently on cefepime. If the patient's kidney function remains normal and does not show any worsening over the next 24 hours, antibiotic can be switched to Ceftin 500 mg twice a day for another 5 days to finish a course of therapy. Continue with supportive care. MMODL / IJN: [id number] /
[2018-06-19 02:52] LABS: Glucose,Whole Blood 99 mg/dL (75-99)
[2018-06-19] MEDS: HYDROcodone/APAP 10-325MG 1 EACH TAB PO PRN ×2 (04:32→10:23)
[2018-06-19] MEDS: CEFEPIME 2 GM in SODIUM CHLORIDE 0.9% 50 ML IVPB SCH ×2 (04:32→12:44)
[2018-06-19 07:48] LABS: Glucose,Whole Blood 85 mg/dL (75-99)
[2018-06-19] MEDS: GABAPENTIN 100 MG CAP PO SCH (08:11)
[2018-06-19] MEDS: HEPARIN SODIUM,PORCINE 5,000 UNIT/ML 1 ML VIAL SQ SCH (08:11)
[2018-06-19] MEDS: PANTOPRAZOLE 40 MG TABLET PO SCH (08:11)
[2018-06-19] MEDS: METOPROLOL TARTRATE 25 MG TAB PO SCH (08:11)
[2018-06-19] MEDS: CHLORHEXIDINE GLUCONATE 15 ML CUP MUCOUS MEM SCH (08:11)
[2018-06-19] MEDS: DULoxetine HCL 60 MG CAPSULE.DR PO SCH (08:11)
[2018-06-19] MEDS: DEXTROSE 5%-0.45% NACL 1,000 ML IV SCH (10:23)
[2018-06-19 11:08] LABS: Anisocytosis Slight; Basophils # (A) 0.1 k/uL (0-0.2); Basophils % (A) 2 %; Eosinophils # (A) 0.7 k/uL (0-0.7); Eosinophils % (A) 10 %; HCT 42.9 % (34.0-46.0); HGB 12.9 gm/dL (11.4-16.0); Hypochromasia Marked; Lymphocytes # (A) 2.3 k/uL (1.0-4.8); Lymphocytes % (A) 30 %; MCH 28.5 pg (25.0-35.0); MCHC 30.2 g/dL (31.0-37.0); MCV 94.5 fL (80.0-100.0); Monocytes # (A) 0.5 k/uL (0-1.0); Monocytes % (A) 6 %; Neutrophils # (A) 3.6 k/uL (1.3-7.7); Neutrophils % (A) 49 %; Platelet Count 250 k/uL (150-450); RBC 4.54 m/uL (3.80-5.40); RDW 18.9 % (11.5-15.5); WBC 7.4 k/uL (3.8-10.6)
[2018-06-19 11:13] LABS: INR 2.2 (<1.2); Prothrombin Time 19.8 sec (9.0-12.0)
[2018-06-19 11:39] LABS: Anion Gap 6 mmol/L; Blood Urea Nitrogen 8 mg/dL (7-17); Calcium 8.8 mg/dL (8.4-10.2); Carbon Dioxide 28 mmol/L (22-30); Chloride 104 mmol/L (98-107); Glucose 96 mg/dL (74-99); Magnesium 1.7 mg/dL (1.6-2.3); Phosphorus 3.6 mg/dL (2.5-4.5); Potassium 4.6 mmol/L (3.5-5.1); Sodium 138 mmol/L (137-145)
[2018-06-19] MEDS ORDERED: ACETAMINOPHEN TAB 500 MG TAB PO PRN (12:01)
--- NOTE | 2018-06-19 12:04 | P.DS ---
Providers Date of admission: 06/14/18 23:46 Expected date of discharge: 06/19/18 Attending physician: Warenr Payan Consults: 06/14/18 23:43 Consult Physician Routine Consulting Provider: Rosa Dai Consult Reason/Comments: Critical Care Managment Do you want consulting provider notified?: Already Contacted 06/15/18 12:07 Consult Physician Routine Consulting Provider: Jah Tyler Consult Reason/Comments: possible sepsis Do you want consulting provider notified?: Yes Primary care physician: [facility] Hospital Course: Final Diagnoses: Acute hypoxic respiratory failure, status post mechanical ventilation probably secondary to sepsis possibly secondary to acute UTI, possible aspiration pneumonia. history of rhinitis with enterococcus in the past. -Acute metabolic encephalopathy secondary, multifactorial, possible UTI, possible aspiration pneumonia. 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 -Chronic low back pain Hospital course:Patient came in with with lethargy to protect the airway patient was intubated presently extubated patient was presumed to have sepsis had history of endocarditis echocardiogram is being obtain which showed severe mitral regurgitation patient had moderate mitral regurgitation the past. 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 Patient was evaluated infectious disease presently continue with antibiotics, we will leave the decision of CHIOMA to infectious disease. Patient is presently extubated awake comparing of back pain 06/17/2018 Patient is doing much better today transfer out of ICU no complaints today. I' ll have to discuss with infectious disease regarding an echocardiogram considering her mitral regurgitation worsening. Constitutional: Denied any fatigue denied any fever. Cardio vascular: denied any chest pain, palpitations Gastrointestinal denied any nausea vomiting Pulmonary: Denied any shortness of breath cough Neurologic denied any new focal defici 06/18/2018 maintained on IV antibiotics of cefepime, vancomycin discontinued. afebrile, blood cultures negative. No need for CHIOMA at this time as per infectious disease. Denies chest pain, palpitations or increased shortness of breath. Good diet intake, denies nausea vomiting or diarrhea. No abdominal pain. Blood sugars controlled. 06/19/2018 significant clinical improvement. Patient cleared by infectious disease for discharge. Patient will be discharged pending pulmonary clearance, in a stable condition with guarded prognosis. Exam GENERAL: The patient is alert and oriented x3, not in any acute distress. CARDIOVASCULAR: S1 and S2 present. And does have a pansystolic murmur soft murmur in the mitral area, and a loud click the tricuspid and diuretic area PULMONARY: Essentially clear, bilateral bases diminished ABDOMEN: Soft, nontender, nondistended, normoactive bowel sounds. No palpable organomegaly. EXTREMITIES: No cyanosis, clubbing, or pedal edema. NEUROLOGICAL: Gross neurological examination did not reveal any focal deficits. The impression and plan of care has been dictated as directed. : I performed a history and examination of this patient, discussed the same with the dictator. I agree with the dictator's note ,documented as a scribe. Any additional findings or plans will be noted. Time taken: 35 minutes Patient Condition at Discharge: Stable Plan - Discharge Summary New Discharge Prescriptions: New Cefuroxime Axetil [Ceftin] 500 mg PO BID #10 tab Warfarin [Coumadin] 4 mg PO Q24H tab Acetaminophen Tab [Tylenol] 500 mg PO Q6HR PRN tab PRN Reason: Fever And/ Or Pain Continue Gabapentin [Neurontin] 100 mg PO TID cap Cyanocobalamin (Vitamin B-12) [Vitamin B-12] 1,000 mcg PO DAILY Cholecalciferol [Vitamin D3] 5,000 unit PO DAILY Albuterol Inhaler [Ventolin Hfa Inhaler] 2 puff INHALATION RT-Q8H PRN PRN Reason: Shortness Of Breath Furosemide [Lasix] 20 mg PO DAILY Metoprolol Tartrate 25 mg PO BID Pantoprazole Sodium [Protonix] 20 mg PO DAILY OLANZapine [ZyPREXA] 10 mg PO HS Ferrous Sulfate [Iron (65 MG Elemental)] 325 mg PO HS DULoxetine HCL [Cymbalta] 60 mg PO DAILY Sennosides [Senna] 8.6 mg PO DAILY PRN PRN Reason: Constipation Changed Ipratropium-Albuterol Nebulize [Duoneb 0.5 mg-3 mg/3 ml Soln] 3 ml INHALATION RT-TID #0 Discontinued Warfarin [Coumadin] 5 mg PO DAILY Baclofen [Lioresal] 10 mg PO QID Discharge Medication List Gabapentin [Neurontin] 100 mg PO TID cap 03/08/18 [Rx] Albuterol Inhaler [Ventolin Hfa Inhaler] 2 puff INHALATION RT-Q8H PRN 05/18/18 [ History] Cholecalciferol [Vitamin D3] 5,000 unit PO DAILY 05/18/18 [History] Cyanocobalamin (Vitamin B-12) [Vitamin B-12] 1,000 mcg PO DAILY 05/18/18 [ History] Furosemide [Lasix] 20 mg PO DAILY 06/04/18 [History] Metoprolol Tartrate 25 mg PO BID 06/04/18 [History] DULoxetine HCL [Cymbalta] 60 mg PO DAILY 06/14/18 [History] Ferrous Sulfate [Iron (65 MG Elemental)] 325 mg PO HS 06/14/18 [History] OLANZapine [ZyPREXA] 10 mg PO HS 06/14/18 [History] Pantoprazole Sodium [Protonix] 20 mg PO DAILY 06/14/18 [History] Sennosides [Senna] 8.6 mg PO DAILY PRN 06/14/18 [History] Acetaminophen Tab [Tylenol] 500 mg PO Q6HR PRN tab 06/19/18 [Rx] Cefuroxime Axetil [Ceftin] 500 mg PO BID #10 tab 06/19/18 [Rx] Ipratropium-Albuterol Nebulize [Duoneb 0.5 mg-3 mg/3 ml Soln] 3 ml INHALATION RT -TID #0 06/19/18 [Rx] Warfarin [Coumadin] 4 mg PO Q24H tab 06/19/18 [Rx] Follow up Appointment(s)/Referral(s): [facility] [Primary Care Provider] - 3 Days Activity/Diet/Wound Care/Special Instructions: Discharge pending clearance from social work with legal guardian. PT/INR daily cbc,bmp in 3 days
[2018-06-19 12:30] LABS: Glucose,Whole Blood 65 mg/dL (75-99)
[2018-06-19 12:30] LABS: Glucose,Whole Blood 91 mg/dL (75-99)
[2018-06-19 12:30] LABS: Glucose,Whole Blood 54 mg/dL (75-99)
[2018-06-19 14:45] LABS: Glucose,Whole Blood 76 mg/dL (75-99)
[2018-06-19 14:51] VITALS: BP 108/59; PULSE 78; RESP 20; TEMP 98.6
--- NOTE | 2018-06-19 17:46 | PN ---
PROGRESS NOTE DATE OF SERVICE: 06/19/2018 REASON FOR FOLLOWUP: UTI. INTERVAL HISTORY: The patient is currently afebrile. She was seen on rounds early this afternoon. Denies having any chest pain, shortness of breath or cough. No abdominal pain. Her urinary symptoms have improved. PHYSICAL EXAMINATION: Blood pressure 108/59 with a pulse of 78, temperature 98.6. She is 98% on room air. General description is a middle-aged female up in the room in no distress. RESPIRATORY SYSTEM: Unlabored breathing. Clear to auscultation anteriorly. HEART: S1, S2. Regular rate and rhythm. ABDOMEN: Soft. No tenderness. LABS: Hemoglobin is 12.9, white count 7.4, creatinine 0.48. The vancomycin level is down to 6. DIAGNOSTIC IMPRESSION AND PLAN: Patient admitted to hospital with generalized weakness. Source is multifactorial with a component of possible urinary tract infection. The patient has shown overall clinical improvement. PLAN: At this time will change IV to oral Ceftin with close outpatient followup. Continue with supportive care. MMODL / IJN: [id number] /
[2018-06-19] MEDS ORDERED: CEFEPIME 2 GM in SODIUM CHLORIDE 0.9% 50 ML IVPB SCH (21:00)
== END 2018-06-19 15:30 | disposition home health service (06) | DRG 871 ==
LOC: EC 17:12 → 6ICU 23:46 → 4MS4W 06-16 17:05 → 6ICU 06-16 17:09 → 4MS4W 06-16 18:37
PROVIDERS: ADMIT Hospitalist; ATTEND Hospitalist
PROC: 5A1945Z Respiratory Ventilation, 24-96 Consecutive Hours (ICD-10-PCS; principal; 2018-06-14)
PROC: 0BH17EZ Insertion of Endotracheal Airway into Trachea, Via Natural or Artificial Opening (ICD-10-PCS; 2018-06-14)
PROC: 02HV33Z Insertion of Infusion Device into Superior Vena Cava, Percutaneous Approach (ICD-10-PCS; 2018-06-14)
DX: A41.9 Sepsis, unspecified organism (principal); G93.41 Metabolic encephalopathy; J69.0 Pneumonitis due to inhalation of food and vomit; J96.01 Acute respiratory failure with hypoxia; I69.351 Hemiplegia and hemiparesis following cerebral infarction affecting right dominant side; J98.11 Atelectasis; N39.0 Urinary tract infection, site not specified; Q87.40 Marfan syndrome, unspecified; E16.2 Hypoglycemia, unspecified; F17.210 Nicotine dependence, cigarettes, uncomplicated; F11.11 Opioid abuse, in remission; F41.9 Anxiety disorder, unspecified; G89.29 Other chronic pain; I08.0 Rheumatic disorders of both mitral and aortic valves; M41.9 Scoliosis, unspecified; Q07.00 Arnold-Chiari syndrome without spina bifida or hydrocephalus; T88.4XXA Failed or difficult intubation, initial encounter; Z79.01 Long term (current) use of anticoagulants; Z83.0 Family history of human immunodeficiency virus [HIV] disease; Z83.3 Family history of diabetes mellitus; Z86.61 Personal history of infections of the central nervous system; Z90.81 Acquired absence of spleen; Z95.1 Presence of aortocoronary bypass graft; Z95.2 Presence of prosthetic heart valve; Z79.899 Other long term (current) drug therapy; Z88.0 Allergy status to penicillin; Z88.8 Allergy status to other drugs, medicaments and biological substances; Z86.14 Personal history of Methicillin resistant Staphylococcus aureus infection; Z81.1 Family history of alcohol abuse and dependence; Z86.19 Personal history of other infectious and parasitic diseases; I25.10 Atherosclerotic heart disease of native coronary artery without angina pectoris; Z98.42 Cataract extraction status, left eye; Z98.41 Cataract extraction status, right eye; Z96.1 Presence of intraocular lens; Z96.611 Presence of right artificial shoulder joint
CPT/HCPCS: 31500; 36415; 36556; 36600; 51702; 70450; 71045; 71046; 80048; 80053; 80202; 80306; 81001; 82550; 82553; 82805; 83036; 83605; 83735; 84100; 84132; 84484; 84703; 85025; 85610; 85730; 87040; 87070; 87086; 87205; 93005; 93306; 94002; 94003; 96361; 96365; 96368; 96375; 99291

== ENCOUNTER 2018-06-27 14:31 | Emergency (ER) | payer OTHER ==
--- NOTE | 2018-06-27 16:07 | XR ---
Abdomen HISTORY: Abdomen pain Frontal view the abdomen. Correlation to prior exam 04/05/2013. There is a scoliosis present. Postop changes noted to the proximal left femur. Arthropathy noted in t he right hip. Lung bases show some probable atelectatic change or scarring. No evident bowel obstruct ion or pneumoperitoneum. Suspect there may be some retained fecal debris. IMPRESSION: Nonobstructive bowel gas pattern. Correlate for possible fecal stasis.
[2018-06-27 16:08] LABS: Appearance,Urine Clear (Clear); Bacteria,Urine Rare /hpf; Bilirubin,Urine Negative (Negative); Blood,Urine Negative (Negative); Color,Urine Colorless; Glucose,Urine (UA) Negative (Negative); Ketones,Urine Negative (Negative); Leukocyte Esterase,Urine Moderate (Negative); Nitrite,Urine Negative (Negative); PH, Urine 6.5 (5.0-8.0); Protein,Urine Negative (Negative); RBC,Urine 2 /hpf (0-5); Specific Gravity,Urine 1.003 (1.001-1.035); Squamous Epithelial Cell,Urine 1 /hpf (0-4); Urobilinogen,Urine <2.0 mg/dL (<2.0); WBC,Urine 1 /hpf (0-5)
[2018-06-27 16:11] LABS: Anisocytosis Slight; Basophils # (A) 0.1 k/uL (0-0.2); Basophils % (A) 2 %; Eosinophils # (A) 0.6 k/uL (0-0.7); Eosinophils % (A) 6 %; HCT 43.7 % (34.0-46.0); HGB 13.2 gm/dL (11.4-16.0); Hypochromasia Slight; Lymphocytes # (A) 3.3 k/uL (1.0-4.8); Lymphocytes % (A) 37 %; MCH 28.2 pg (25.0-35.0); MCHC 30.2 g/dL (31.0-37.0); MCV 93.5 fL (80.0-100.0); Mean Platelet Volume 7.5; Monocytes # (A) 0.6 k/uL (0-1.0); Monocytes % (A) 6 %; Neutrophils # (A) 4.2 k/uL (1.3-7.7); Neutrophils % (A) 47 %; Platelet Count 465 k/uL (150-450); RBC 4.67 m/uL (3.80-5.40); RDW 18.5 % (11.5-15.5); WBC 8.9 k/uL (3.8-10.6)
[2018-06-27 16:14] LABS: ALT 13 U/L (9-52); AST 33 U/L (14-36); Albumin 3.7 g/dL (3.5-5.0); Alkaline Phosphatase 89 U/L (38-126); Amylase 40 U/L (30-110); Anion Gap 6 mmol/L; Blood Urea Nitrogen 15 mg/dL (7-17); Calcium 8.8 mg/dL (8.4-10.2); Carbon Dioxide 27 mmol/L (22-30); Chloride 103 mmol/L (98-107); Glucose 98 mg/dL (74-99); Lipase 51 U/L (23-300); Potassium 4.6 mmol/L (3.5-5.1); Sodium 136 mmol/L (137-145); Total Bilirubin 0.4 mg/dL (0.2-1.3); Total Protein 7.4 g/dL (6.3-8.2)
[2018-06-27 16:15] LABS: Partial Thromboplastin Time 35.1 sec (22.0-30.0)
--- NOTE | 2018-06-27 17:19 | ED ---
Abdominal Pain HPI - General Chief Complaint: Abdominal Pain Stated Complaint: Abd Pain Time Seen by Provider: 06/27/18 15:43 Source: patient, RN notes reviewed Mode of arrival: ambulatory Limitations: no limitations - History of Present Illness Initial Comments: 33-year-old female presents emergency Department chief complaint of abdominal pain. Patient states started last day or so. Denies any nausea vomiting or diarrhea. Patient states she has been constipated. She has no dysuria no hematuria. She states that she did have a bowel movement a few days ago alleviate some of the pain with worse now. Patient states that she feels bloated. Patient has not tried taking anything for her constipation. - Related Data Home Medications Medication Instructions Recorded Confirmed Cholecalciferol [Vitamin D3] 5,000 unit PO DAILY 05/18/18 06/27/18 Cyanocobalamin (Vitamin B-12) 1,000 mcg PO DAILY 05/18/18 06/27/18 [Vitamin B-12] Furosemide [Lasix] 20 mg PO DAILY 06/04/18 06/27/18 Metoprolol Tartrate 25 mg PO BID 06/04/18 06/27/18 DULoxetine HCL [Cymbalta] 60 mg PO DAILY 06/14/18 06/27/18 Ferrous Sulfate [Iron (65 MG 325 mg PO HS 06/14/18 06/27/18 Elemental)] OLANZapine [ZyPREXA] 10 mg PO HS 06/14/18 06/27/18 Pantoprazole Sodium [Protonix] 20 mg PO DAILY 06/14/18 06/27/18 Warfarin [Coumadin] 5 mg PO DAILY 06/27/18 06/27/18 Previous Rx's Medication Instructions Recorded Gabapentin [Neurontin] 100 mg PO TID cap 03/08/18 Ipratropium-Albuterol Nebulize 3 ml INHALATION RT-TID #0 06/19/18 [Duoneb 0.5 mg-3 mg/3 ml Soln] Allergies Allergy/AdvReac Type Severity Reaction Status Date / Time chlordiazepoxide HCl Allergy Unknown Verified 06/27/18 15:08 [From Librium] Penicillins Allergy Rash/Hives Verified 06/27/18 15:08 prochlorperazine edisylate Allergy PANIC Verified 06/27/18 15:08 [From Compazine] ATTACK prochlorperazine maleate Allergy PANIC Verified 06/27/18 15:08 [From Compazine] ATTACK ketorolac [From Toradol] AdvReac Unknown Verified 06/27/18 15:08 Review of Systems ROS Statement: Those systems with pertinent positive or pertinent negative responses have been documented in the HPI. ROS Other: All systems not noted in ROS Statement are negative. Past Medical History Past Medical History: Heart Failure, CVA/TIA, Neurologic Disorder, Osteoarthritis (OA), Pneumonia Additional Past Medical History / Comment(s): Stroke with residual right-sided weakness 2017, marfan's syndrome, ArnoldChiari malformation, spontaneous pneumothorax x 21, scoliosis and pectus excavatum secondary to Marfan's, chronic back pain, bilateral leg pain, sinus infections, STATED HAS POOR CIRCULATION, viral meningitis, HEP C. History of Any Multi-Drug Resistant Organisms: MRSA Date of last positivie culture/infection: 05/05/2010 MDRO Source:: back per patient Past Surgical History: Cardiac Valve Replacement, Coronary Bypass/CABG, Joint Replacement Additional Past Surgical History / Comment(s): right foot corrective surgery, R shoulder surgery following injury, CABG x4 vessel, aortic root graft, aortic valve replaced as child (2 separate surgeries last 10 years old), tiffani lens removed. spleenectomy 2018 Past Anesthesia/Blood Transfusion Reactions: No Reported Reaction Past Psychological History: Anxiety Smoking Status: Current every day smoker Past Alcohol Use History: None Reported Past Drug Use History: None Reported - Past Family History Father Additional Family Medical History / Comment(s): Father is with history of AIDS. Mother Family Medical History: Diabetes Mellitus Additional Family Medical History / Comment(s): Mother at age 49 from liver cirrhosis secondary to alcohol abuse. Brother(s) Additional Family Medical History / Comment(s): Patient has one brother with no major medical problems. Patient does not have any sisters. Patient does not have any children. General Exam Limitations: no limitations General appearance: alert, in no apparent distress Head exam: Present: atraumatic, normocephalic, normal inspection Eye exam: Present: normal appearance, PERRL, EOMI. Absent: scleral icterus, conjunctival injection, periorbital swelling Respiratory exam: Present: normal lung sounds bilaterally. Absent: respiratory distress, wheezes, rales, rhonchi, stridor Cardiovascular Exam: Present: regular rate, normal rhythm, normal heart sounds. Absent: systolic murmur, diastolic murmur, rubs, gallop, clicks GI/Abdominal exam: Present: soft, tenderness (Minimal lower), normal bowel sounds. Absent: distended, guarding, rebound, rigid Back exam: Absent: CVA tenderness (R), CVA tenderness (L) Skin exam: Present: warm, dry, intact, normal color. Absent: rash Course Vital Signs 06/27/18 14:45 Temperature 97.5 F L Pulse Rate 75 Respiratory 18 Rate Blood Pressure 99/64 O2 Sat by Pulse 95 Oximetry Medical Decision Making - Medical Decision Making 33-year-old female presented for lower abdominal pain cramping. Patient has constipation patient clinical symptoms and on x-ray. Patient's left vitals and labs are otherwise unremarkable. Patient we discharged return parameters were discussed. - Lab Data Result diagrams: 06/27/18 15:15 06/27/18 15:15 Lab Results 06/27/18 06/27/18 06/27/18 Range/Units 15:15 15:15 15:15 WBC 8.9 (3.8-10.6) k/uL RBC 4.67 (3.80-5.40) m/uL Hgb 13.2 (11.4-16.0) gm/dL Hct 43.7 (34.0-46.0) % MCV 93.5 (80.0-100.0) fL MCH 28.2 (25.0-35.0) pg MCHC 30.2 L (31.0-37.0) g/dL RDW 18.5 H (11.5-15.5) % Plt Count 465 H (150-450) k/uL Neutrophils % 47 % Lymphocytes % 37 % Monocytes % 6 % Eosinophils % 6 % Basophils % 2 % Neutrophils # 4.2 (1.3-7.7) k/uL Lymphocytes # 3.3 (1.0-4.8) k/uL Monocytes # 0.6 (0-1.0) k/uL Eosinophils # 0.6 (0-0.7) k/uL Basophils # 0.1 (0-0.2) k/uL Hypochromasia Slight Anisocytosis Slight PT 18.0 H (9.0-12.0) sec INR 2.0 H (<1.2) APTT 35.1 H (22.0-30.0) sec Sodium 136 L (137-145) mmol/L Potassium 4.6 (3.5-5.1) mmol/L Chloride 103 (98-107) mmol/L Carbon Dioxide 27 (22-30) mmol/L Anion Gap 6 mmol/L BUN 15 (7-17) mg/dL Creatinine 0.46 L (0.52-1.04) mg/dL Est GFR (CKD-EPI)AfAm >90 (>60 ml/min/1.73 sqM) Est GFR (CKD-EPI)NonAf >90 (>60 ml/min/1.73 sqM) Glucose 98 (74-99) mg/dL Calcium 8.8 (8.4-10.2) mg/dL Total Bilirubin 0.4 (0.2-1.3) mg/dL AST 33 (14-36) U/L ALT 13 (9-52) U/L Alkaline Phosphatase 89 (38-126) U/L Total Protein 7.4 (6.3-8.2) g/dL Albumin 3.7 (3.5-5.0) g/dL Amylase 40 (30-110) U/L Lipase 51 (23-300) U/L Urine Color Urine Appearance (Clear) Urine pH (5.0-8.0) Ur Specific [place] (1.001-1.035) Urine Protein (Negative) Urine Glucose (UA) (Negative) Urine Ketones (Negative) Urine Blood (Negative) Urine Nitrite (Negative) Urine Bilirubin (Negative) Urine Urobilinogen (<2.0) mg/dL Ur Leukocyte Esterase (Negative) Urine RBC (0-5) /hpf Urine WBC (0-5) /hpf Ur Squamous Epith Cells (0-4) /hpf Urine Bacteria (None) /hpf 06/27/18 Range/Units 15:57 WBC (3.8-10.6) k/uL RBC (3.80-5.40) m/uL Hgb (11.4-16.0) gm/dL Hct (34.0-46.0) % MCV (80.0-100.0) fL MCH (25.0-35.0) pg MCHC (31.0-37.0) g/dL RDW (11.5-15.5) % Plt Count (150-450) k/uL Neutrophils % % Lymphocytes % % Monocytes % % Eosinophils % % Basophils % % Neutrophils # (1.3-7.7) k/uL Lymphocytes # (1.0-4.8) k/uL Monocytes # (0-1.0) k/uL Eosinophils # (0-0.7) k/uL Basophils # (0-0.2) k/uL Hypochromasia Anisocytosis PT (9.0-12.0) sec INR (<1.2) APTT (22.0-30.0) sec Sodium (137-145) mmol/L Potassium (3.5-5.1) mmol/L Chloride (98-107) mmol/L Carbon Dioxide (22-30) mmol/L Anion Gap mmol/L BUN (7-17) mg/dL Creatinine (0.52-1.04) mg/dL Est GFR (CKD-EPI)AfAm (>60 ml/min/1.73 sqM) Est GFR (CKD-EPI)NonAf (>60 ml/min/1.73 sqM) Glucose (74-99) mg/dL Calcium (8.4-10.2) mg/dL Total Bilirubin (0.2-1.3) mg/dL AST (14-36) U/L ALT (9-52) U/L Alkaline Phosphatase (38-126) U/L Total Protein (6.3-8.2) g/dL Albumin (3.5-5.0) g/dL Amylase (30-110) U/L Lipase (23-300) U/L Urine Color Colorless Urine Appearance Clear (Clear) Urine pH 6.5 (5.0-8.0) Ur Specific [place] 1.003 (1.001-1.035) Urine Protein Negative (Negative) Urine Glucose (UA) Negative (Negative) Urine Ketones Negative (Negative) Urine Blood Negative (Negative) Urine Nitrite Negative (Negative) Urine Bilirubin Negative (Negative) Urine Urobilinogen <2.0 (<2.0) mg/dL Ur Leukocyte Esterase Moderate H (Negative) Urine RBC 2 (0-5) /hpf Urine WBC 1 (0-5) /hpf Ur Squamous Epith Cells 1 (0-4) /hpf Urine Bacteria Rare H (None) /hpf Disposition Clinical Impression: Abdominal pain, Constipation Disposition: HOME SELF-CARE Condition: Stable Instructions: Abdominal Pain (ED) Additional Instructions: Take [id number] laxatives as directed.Please return to the Emergency Department if symptoms worsen or any other concerns. Is patient prescribed a controlled substance at d/c from ED?: No Referrals: [facility] [Primary Care Provider] - 1-2 days Time of Disposition: 17:18
[2018-06-27 17:41] VITALS: BP 92/63; PULSE 73; RESP 16; TEMP 98
== END 2018-06-27 17:41 | disposition home or self-care (01) ==
LOC: EC 14:31
DX: K59.00 Constipation, unspecified (principal); R10.30 Lower abdominal pain, unspecified; I50.9 Heart failure, unspecified; F17.200 Nicotine dependence, unspecified, uncomplicated; Z86.14 Personal history of Methicillin resistant Staphylococcus aureus infection; Z86.73 Personal history of transient ischemic attack (TIA), and cerebral infarction without residual deficits; Q07.00 Arnold-Chiari syndrome without spina bifida or hydrocephalus; F41.9 Anxiety disorder, unspecified; Z95.1 Presence of aortocoronary bypass graft; Z95.2 Presence of prosthetic heart valve; Z90.49 Acquired absence of other specified parts of digestive tract; Z98.890 Other specified postprocedural states; Z79.01 Long term (current) use of anticoagulants; Z79.899 Other long term (current) drug therapy; Z88.0 Allergy status to penicillin; Z88.6 Allergy status to analgesic agent; Z88.8 Allergy status to other drugs, medicaments and biological substances
CPT/HCPCS: 36415; 74018; 80053; 81001; 82150; 83690; 85025; 85610; 85730; 99284

== ENCOUNTER 2018-08-01 09:56 | Emergency (ER) | payer OTHER ==
[2018-08-01 10:01] VITALS: PULSE 84; RESP 20; TEMP 98
--- NOTE | 2018-08-01 10:45 | ED ---
General Adult HPI - General Chief complaint: Upper Respiratory Infection Stated complaint: cough, congestion Time Seen by Provider: 08/01/18 10:00 Source: patient, RN notes reviewed Mode of arrival: ambulatory Limitations: no limitations - History of Present Illness Initial comments: This is a 33-year-old female who presents emergency department claiming that she 's had a cough and a runny nose recently. She states while she was at [facility] they took pulse ox on her stated she was only 85. They told her to come the emergency department so she did. Patient denies any chest pain patient denies any shortness of breath. Patient denies any productive cough. Patient states she has not had a fever or chills. Patient states the reason she is here is because they say she was oxygenating well patient currently is oxygenating 96-97 %. Patient denies any abdominal pain patient denies any recent nausea vomiting or diarrhea. Patient has no other complaints that she has a dry cough and runny nose. - Related Data Home Medications Medication Instructions Recorded Confirmed Cholecalciferol [Vitamin D3] 5,000 unit PO DAILY 05/18/18 06/27/18 Cyanocobalamin (Vitamin B-12) 1,000 mcg PO DAILY 05/18/18 06/27/18 [Vitamin B-12] Furosemide [Lasix] 20 mg PO DAILY 06/04/18 06/27/18 Metoprolol Tartrate 25 mg PO BID 06/04/18 06/27/18 DULoxetine HCL [Cymbalta] 60 mg PO DAILY 06/14/18 06/27/18 Ferrous Sulfate [Iron (65 MG 325 mg PO HS 06/14/18 06/27/18 Elemental)] OLANZapine [ZyPREXA] 10 mg PO HS 06/14/18 06/27/18 Pantoprazole Sodium [Protonix] 20 mg PO DAILY 06/14/18 06/27/18 Warfarin [Coumadin] 5 mg PO DAILY 06/27/18 06/27/18 Previous Rx's Medication Instructions Recorded Gabapentin [Neurontin] 100 mg PO TID cap 03/08/18 Ipratropium-Albuterol Nebulize 3 ml INHALATION RT-TID #0 06/19/18 [Duoneb 0.5 mg-3 mg/3 ml Soln] Allergies Allergy/AdvReac Type Severity Reaction Status Date / Time chlordiazepoxide HCl Allergy Unknown Verified 08/01/18 10:00 [From Librium] Penicillins Allergy Rash/Hives Verified 08/01/18 10:00 prochlorperazine edisylate Allergy PANIC Verified 08/01/18 10:00 [From Compazine] ATTACK prochlorperazine maleate Allergy PANIC Verified 08/01/18 10:00 [From Compazine] ATTACK ketorolac [From Toradol] AdvReac Unknown Verified 08/01/18 10:00 Review of Systems ROS Statement: Those systems with pertinent positive or pertinent negative responses have been documented in the HPI. ROS Other: All systems not noted in ROS Statement are negative. Past Medical History Past Medical History: Heart Failure, CVA/TIA, Neurologic Disorder, Osteoarthritis (OA), Pneumonia Additional Past Medical History / Comment(s): Stroke with residual right-sided weakness 2017, marfan's syndrome, ArnoldChiari malformation, spontaneous pneumothorax x 21, scoliosis and pectus excavatum secondary to Marfan's, chronic back pain, bilateral leg pain, sinus infections, STATED HAS POOR CIRCULATION, viral meningitis, HEP C. History of Any Multi-Drug Resistant Organisms: MRSA Date of last positivie culture/infection: 05/05/2010 MDRO Source:: back per patient Past Surgical History: Cardiac Valve Replacement, Coronary Bypass/CABG, Joint Replacement Additional Past Surgical History / Comment(s): right foot corrective surgery, R shoulder surgery following injury, CABG x4 vessel, aortic root graft, aortic valve replaced as child (2 separate surgeries last 10 years old), tiffani lens removed. spleenectomy 2018 Past Anesthesia/Blood Transfusion Reactions: No Reported Reaction Past Psychological History: Anxiety Smoking Status: Current every day smoker Past Alcohol Use History: None Reported Past Drug Use History: None Reported - Past Family History Father Additional Family Medical History / Comment(s): Father is with history of AIDS. Mother Family Medical History: Diabetes Mellitus Additional Family Medical History / Comment(s): Mother at age 49 from liver cirrhosis secondary to alcohol abuse. Brother(s) Additional Family Medical History / Comment(s): Patient has one brother with no major medical problems. Patient does not have any sisters. Patient does not have any children. General Exam - General Exam Comments Initial Comments: GENERAL: Patient is well-developed and well-nourished. Patient is nontoxic and well- hydrated and is in no acute distress. Patient is planning on her phone in no respiratory distress whatsoever and she is currently not on oxygen. ENT: Neck is soft and supple. No significant lymphadenopathy is noted. Oropharynx is clear. Moist mucous membranes. Neck has full range of motion without eliciting any pain. EYES: The sclera were anicteric and conjunctiva were pink and moist. Extraocular movements were intact and pupils were equal round and reactive to light. Eyelids were unremarkable. PULMONARY: Unlabored respirations. Good breath sounds bilaterally. No audible rales rhonchi or wheezing was noted. CARDIOVASCULAR: There is a regular rate and rhythm. Patient has a significant click secondary to her valve. ABDOMEN: Soft and nontender with normal bowel sounds. No palpable organomegaly was noted. There is no palpable pulsatile mass. SKIN: Skin is clear with no lesions or rashes and otherwise unremarkable. NEUROLOGIC: Patient is alert and oriented x3. Cranial nerves II through XII are grossly intact. Motor and sensory are also intact. Normal speech, volume and content. Symmetrical smile. MUSCULOSKELETAL: Normal extremities with adequate strength and full range of motion. No lower extremity swelling or edema. No calf tenderness. Patient has significant scoliosis LYMPHATICS: No significant lymphadenopathy is noted PSYCHIATRIC: Normal psychiatric evaluation. Limitations: no limitations Course Vital Signs 08/01/18 08/01/18 09:59 11:39 Temperature 98 F 98 F Pulse Rate 84 84 Respiratory 20 20 Rate Blood Pressure 131/82 141/90 O2 Sat by Pulse 96 97 Oximetry Medical Decision Making - Medical Decision Making Chest x-ray shows no acute abnormality. I went back in to tell the patient her results and she stated that she doesn't even know why she was told to come in because she feels fine. Disposition Clinical Impression: Upper respiratory infection Disposition: HOME SELF-CARE Condition: Good Instructions: Upper Respiratory Infection (ED) Is patient prescribed a controlled substance at d/c from ED?: No Referrals: [facility] [Primary Care Provider] - 1-2 days Time of Disposition: 11:40
--- NOTE | 2018-08-01 11:00 | XR ---
EXAMINATION TYPE: XR chest 2V DATE OF EXAM: 08/01/2018 COMPARISON: 06/16/2018 HISTORY: Chest pain TECHNIQUE: Frontal and lateral views of the chest are obtained. FINDINGS: There is no focal air space opacity. There is hyperinflation compatible with COPD. Postsurgical reyes es left apical region. No evidence for pneumothorax. No pleural effusion. The cardiac silhouette size is within normal limits. The osseous structures are grossly intact. Reverse S-shaped scoliosis of the thoracolumbar spine. IMPRESSION: 1. No acute cardiopulmonary process.
[2018-08-01 11:40] VITALS: BP 141/90
== END 2018-08-01 11:43 | disposition home or self-care (01) ==
LOC: EC 09:56
DX: J06.9 Acute upper respiratory infection, unspecified (principal); I50.9 Heart failure, unspecified; M19.90 Unspecified osteoarthritis, unspecified site; I69.351 Hemiplegia and hemiparesis following cerebral infarction affecting right dominant side; F41.9 Anxiety disorder, unspecified; Q87.43 Marfan syndrome with skeletal manifestation; Q07.00 Arnold-Chiari syndrome without spina bifida or hydrocephalus; F17.200 Nicotine dependence, unspecified, uncomplicated; Z88.0 Allergy status to penicillin; Z88.6 Allergy status to analgesic agent; Z88.8 Allergy status to other drugs, medicaments and biological substances; Z79.01 Long term (current) use of anticoagulants; Z79.899 Other long term (current) drug therapy; Z86.14 Personal history of Methicillin resistant Staphylococcus aureus infection; Z96.60 Presence of unspecified orthopedic joint implant; Z87.01 Personal history of pneumonia (recurrent); Z98.890 Other specified postprocedural states; Z95.1 Presence of aortocoronary bypass graft; Z95.2 Presence of prosthetic heart valve
CPT/HCPCS: 71046; 99283

== ENCOUNTER → 2018-09-14 | Outpatient (CLI) | payer OTHER ==
[2018-09-14 09:55] LABS: Basophils # (A) 0.2 k/uL (0-0.2); Basophils % (A) 2 %; Eosinophils # (A) 0.4 k/uL (0-0.7); Eosinophils % (A) 4 %; HCT 47.3 % (34.0-46.0); HGB 14.2 gm/dL (11.4-16.0); Hypochromasia Slight; Lymphocytes # (A) 2.5 k/uL (1.0-4.8); Lymphocytes % (A) 24 %; MCH 29.1 pg (25.0-35.0); Mean Platelet Volume 7.2; Monocytes # (A) 0.6 k/uL (0-1.0); Monocytes % (A) 6 %; Neutrophils # (A) 6.8 k/uL (1.3-7.7); Neutrophils % (A) 63 %; Platelet Count 403 k/uL (150-450); RBC 4.88 m/uL (3.80-5.40); RDW 15.2 % (11.5-15.5); WBC 10.8 k/uL (3.8-10.6)
[2018-09-14 10:03] LABS: Prothrombin Time 110.5 sec (9.0-12.0)
[2018-09-14 10:26] LABS: INR >10.0 (<1.2)
[2018-09-14 17:49] LABS: Albumin 3.8 g/dL (3.80-4.90); Albumin/Globulin Ratio 1.19 (1.20-2.10); Anion Gap 8.8 mmol/L (4.00-12.00); Calcium 9.2 mg/dL (8.7-10.3); Carbon Dioxide 30.2 mmol/L (21.6-31.8); Globulin 3.2 g/dL (1.6-3.3); Potassium 4.2 mmol/L (3.5-5.5); Total Bilirubin 0.3 mg/dL (0.2-1.2)
== END | disposition home or self-care (01) ==
LOC: LABWHC1 08:59
PROVIDERS: ATTEND Physician Assistant Medical
DX: D50.9 Iron deficiency anemia, unspecified (principal); Z79.899 Other long term (current) drug therapy; Z79.01 Long term (current) use of anticoagulants
CPT/HCPCS: 36415; 80053; 83540; 85025; 85610

== ENCOUNTER 2018-09-17 17:29 | Emergency (ER) | payer OTHER ==
[2018-09-17 17:38] VITALS: BP 107/69; PULSE 76; RESP 18; TEMP 97.8
--- NOTE | 2018-09-17 19:28 | ED ---
Psych HPI - General Chief Complaint: Psychiatric Symptoms Stated Complaint: mental health Time Seen by Provider: 09/17/18 18:07 Source: patient, RN notes reviewed, old records reviewed Mode of arrival: ambulatory - History of Present Illness Initial Comments: This is a 33-year-old female history of multiple visits the emergency department for various reasons including depression who is here today because she states she cannot get any more pain medication. Her doctor won't give her any. She has no follow-up. She is feeling depressed he did voice some suicidal thought. No fevers chills or sweats she denies any drug or alcohol use at this time. MD Complaint: suicidal ideation, feels depressed - Related Data Home Medications Medication Instructions Recorded Confirmed Cholecalciferol [Vitamin D3] 5,000 unit PO DAILY 05/18/18 09/17/18 Cyanocobalamin (Vitamin B-12) 1,000 mcg PO DAILY 05/18/18 09/17/18 [Vitamin B-12] Furosemide [Lasix] 20 mg PO DAILY 06/04/18 09/17/18 Metoprolol Tartrate 25 mg PO BID 06/04/18 09/17/18 DULoxetine HCL [Cymbalta] 60 mg PO DAILY 06/14/18 09/17/18 Ferrous Sulfate [Iron (65 MG 325 mg PO DAILY 06/14/18 09/17/18 Elemental)] OLANZapine [ZyPREXA] 10 mg PO HS 06/14/18 09/17/18 Pantoprazole Sodium [Protonix] 20 mg PO DAILY 06/14/18 09/17/18 Warfarin [Coumadin] 5 mg PO DAILY 06/27/18 09/17/18 Sennosides [Senna] 8.6 mg PO DAILY PRN 08/01/18 09/17/18 Albuterol Inhaler [Ventolin Hfa 2 puff INHALATION RT-Q8H PRN 09/17/18 09/17/18 Inhaler] Mirtazapine [Remeron] 15 mg PO HS 09/17/18 09/17/18 Sulfamethox-Tmp 800-160Mg [Bactrim 1 tab PO BID 09/17/18 09/17/18 DS 800-160 mg] Previous Rx's Medication Instructions Recorded Gabapentin [Neurontin] 100 mg PO TID cap 03/08/18 Ipratropium-Albuterol Nebulize 3 ml INHALATION RT-TID #0 06/19/18 [Duoneb 0.5 mg-3 mg/3 ml Soln] Allergies Allergy/AdvReac Type Severity Reaction Status Date / Time chlordiazepoxide HCl Allergy Unknown Verified 09/17/18 17:59 [From Librium] Penicillins Allergy Rash/Hives Verified 09/17/18 17:59 prochlorperazine edisylate Allergy PANIC Verified 09/17/18 17:59 [From Compazine] ATTACK prochlorperazine maleate Allergy PANIC Verified 09/17/18 17:59 [From Compazine] ATTACK ketorolac [From Toradol] AdvReac Unknown Verified 09/17/18 17:59 Review of Systems ROS Statement: Those systems with pertinent positive or pertinent negative responses have been documented in the HPI. ROS Other: All systems not noted in ROS Statement are negative. Past Medical History Past Medical History: Heart Failure, CVA/TIA, Neurologic Disorder, Osteoarthritis (OA), Pneumonia Additional Past Medical History / Comment(s): Stroke with residual right-sided weakness 2017, marfan's syndrome, ArnoldChiari malformation, spontaneous pneumothorax x 21, scoliosis and pectus excavatum secondary to Marfan's, chronic back pain, bilateral leg pain, sinus infections, STATED HAS POOR CIRCULATION, viral meningitis, HEP C. History of Any Multi-Drug Resistant Organisms: MRSA Date of last positivie culture/infection: 05/05/2010 MDRO Source:: back per patient Past Surgical History: Cardiac Valve Replacement, Coronary Bypass/CABG, Joint Replacement Additional Past Surgical History / Comment(s): right foot corrective surgery, R shoulder surgery following injury, CABG x4 vessel, aortic root graft, aortic valve replaced as child (2 separate surgeries last 10 years old), tiffani lens removed. spleenectomy 2018 Past Anesthesia/Blood Transfusion Reactions: No Reported Reaction Past Psychological History: Anxiety Smoking Status: Current every day smoker Past Alcohol Use History: None Reported Past Drug Use History: Marijuana - Past Family History Father Additional Family Medical History / Comment(s): Father is with history of AIDS. Mother Family Medical History: Diabetes Mellitus Additional Family Medical History / Comment(s): Mother at age 49 from liver cirrhosis secondary to alcohol abuse. Brother(s) Additional Family Medical History / Comment(s): Patient has one brother with no major medical problems. Patient does not have any sisters. Patient does not have any children. General Exam - General Exam Comments Initial Comments: Is a well-developed asthenic appearing female who is awake alert oriented 3 Limitations: no limitations General appearance: alert, anxious Head exam: Present: atraumatic, normocephalic, normal inspection Eye exam: Present: normal appearance, PERRL, EOMI. Absent: scleral icterus, conjunctival injection, periorbital swelling ENT exam: Present: normal exam, mucous membranes moist Neck exam: Present: normal inspection. Absent: tenderness, meningismus, lymphadenopathy Respiratory exam: Present: normal lung sounds bilaterally. Absent: respiratory distress, wheezes, rales, rhonchi, stridor Cardiovascular Exam: Present: regular rate, normal rhythm, normal heart sounds. Absent: systolic murmur, diastolic murmur, rubs, gallop, clicks GI/Abdominal exam: Present: soft, normal bowel sounds. Absent: distended, tenderness, guarding, rebound, rigid Extremities exam: Present: normal inspection, full ROM, normal capillary refill. Absent: tenderness, pedal edema, joint swelling, calf tenderness Back exam: Present: normal inspection Neurological exam: Present: alert, oriented X3, CN II-XII intact Psychiatric exam: Present: normal affect, normal mood Skin exam: Present: warm, dry, intact, normal color. Absent: rash Course Vital Signs 09/17/18 17:36 Temperature 97.8 F Pulse Rate 76 Respiratory 18 Rate Blood Pressure 107/69 O2 Sat by Pulse 96 Oximetry Medical Decision Making - Medical Decision Making The patient was evaluated by [facility] she is found to be wrist herself or anyone else he'll be discharged she is currently not suicidal Disposition Clinical Impression: Adjustment reaction Disposition: HOME SELF-CARE Condition: Good Instructions: Mood Disorders (ED), Stress (ED) Is patient prescribed a controlled substance at d/c from ED?: No Referrals: [facility] [Primary Care Provider] - 1-2 days
== END 2018-09-17 19:50 | disposition home or self-care (01) ==
LOC: EC 17:29
DX: F43.20 Adjustment disorder, unspecified (principal); I50.9 Heart failure, unspecified; F32.9 Major depressive disorder, single episode, unspecified; M19.90 Unspecified osteoarthritis, unspecified site; Q07.00 Arnold-Chiari syndrome without spina bifida or hydrocephalus; F41.9 Anxiety disorder, unspecified; F17.200 Nicotine dependence, unspecified, uncomplicated; Z86.14 Personal history of Methicillin resistant Staphylococcus aureus infection; Z86.73 Personal history of transient ischemic attack (TIA), and cerebral infarction without residual deficits; Z95.1 Presence of aortocoronary bypass graft; Z95.2 Presence of prosthetic heart valve; Z90.49 Acquired absence of other specified parts of digestive tract; Z98.890 Other specified postprocedural states; Z79.01 Long term (current) use of anticoagulants; Z79.899 Other long term (current) drug therapy; Z88.0 Allergy status to penicillin; Z88.6 Allergy status to analgesic agent; Z88.8 Allergy status to other drugs, medicaments and biological substances
CPT/HCPCS: 82075; 99285

== ENCOUNTER → 2018-12-17 | Outpatient (CLI) | payer OTHER ==
[2018-12-17 16:43] LABS: Basophils # (A) 0.1 k/uL (0-0.2); Basophils % (A) 1 %; Eosinophils # (A) 0.3 k/uL (0-0.7); Eosinophils % (A) 3 %; HCT 49.6 % (34.0-46.0); HGB 15.5 gm/dL (11.4-16.0); Hypochromasia Slight; Lymphocytes # (A) 2.8 k/uL (1.0-4.8); Lymphocytes % (A) 28 %; MCH 31.4 pg (25.0-35.0); MCHC 31.3 g/dL (31.0-37.0); MCV 100.5 fL (80.0-100.0); Macrocytosis Slight; Mean Platelet Volume 7.5; Monocytes # (A) 0.6 k/uL (0-1.0); Monocytes % (A) 6 %; Neutrophils # (A) 6.1 k/uL (1.3-7.7); Neutrophils % (A) 61 %; Platelet Count 245 k/uL (150-450); RBC 4.93 m/uL (3.80-5.40); RDW 14.5 % (11.5-15.5); WBC 10.1 k/uL (3.8-10.6)
[2018-12-17 22:16] LABS: Iron Saturation 10.72 (12.00-45.00)
[2018-12-17 22:25] LABS: Vitamin D 25 Hydroxy 22.6 ng/mL (30.0-100.0)
[2018-12-17 23:24] LABS: ALT 14 U/L (8-44); AST 23 U/L (13-35); Albumin/Globulin Ratio 1.52 (1.60-3.17); Alkaline Phosphatase 110 U/L (41-126); Calcium 9.4 mg/dL (8.7-10.3); Carbon Dioxide 25.2 mmol/L (21.6-31.8); Chloride 109 mmol/L (96-109); Globulin 2.9 g/dL (1.6-3.3); Glucose 73 mg/dL (70-110); Potassium 4.8 mmol/L (3.5-5.5); Sodium 143 mmol/L (135-145); Total Bilirubin 0.4 mg/dL (0.3-1.2); Total Protein 7.3 g/dL (6.2-8.2)
[2018-12-18 00:03] LABS: Blood Urea Nitrogen <5.0 mg/dL (9.0-27.0)
== END | disposition home or self-care (01) ==
LOC: LABWHC1 15:26
PROVIDERS: ATTEND Physician Assistant Medical
DX: D50.9 Iron deficiency anemia, unspecified (principal); E53.9 Vitamin B deficiency, unspecified; Z79.899 Other long term (current) drug therapy
CPT/HCPCS: 36415; 80053; 82306; 82607; 82728; 83036; 83540; 83550; 83735; 84439; 84443; 85025

== ENCOUNTER 2019-01-07 09:46 | Observation (INO) | payer OTHER ==
[2019-01-07] MEDS ORDERED: NALOXONE 0.4 MG/ML 1 ML VIAL IV STA (09:58)
--- NOTE | 2019-01-07 10:03 | ED ---
General Adult HPI - General Chief complaint: Altered Mental Status Stated complaint: altered mental status Time Seen by Provider: 01/07/19 09:50 Source: patient, RN notes reviewed Mode of arrival: ambulatory Limitations: no limitations - History of Present Illness Initial comments: This is a 33-year-old female who presents emergency Department very lethargic and difficult to arouse. Patient did tell EMS that she took to Zyprexa this morning so she could sleep and did smoke some marijuana. Patient's eyes are however extremely pinpoint and she does have a narcotics abuse history. Patient is only mumbling when I wake her up and also it is difficult to get any further history at this time. - Related Data Home Medications Medication Instructions Recorded Confirmed Cholecalciferol [Vitamin D3 (25 5,000 unit PO DAILY 05/18/18 01/07/19 Mcg = 1000 Iu)] Metoprolol Tartrate 25 mg PO BID 06/04/18 01/07/19 DULoxetine HCL [Cymbalta] 60 mg PO BID 06/14/18 01/07/19 Ferrous Sulfate [Iron (65 MG 325 mg PO DAILY 06/14/18 01/07/19 Elemental)] OLANZapine [ZyPREXA] 10 mg PO HS 06/14/18 01/07/19 Albuterol Inhaler [Ventolin Hfa 2 puff INHALATION RT-Q8H PRN 09/17/18 01/07/19 Inhaler] Allergies Allergy/AdvReac Type Severity Reaction Status Date / Time chlordiazepoxide HCl Allergy Unknown Verified 01/07/19 10:43 [From Librium] Penicillins Allergy Rash/Hives Verified 01/07/19 10:43 prochlorperazine edisylate Allergy PANIC Verified 01/07/19 10:43 [From Compazine] ATTACK prochlorperazine maleate Allergy PANIC Verified 01/07/19 10:43 [From Compazine] ATTACK ketorolac [From Toradol] AdvReac Unknown Verified 01/07/19 10:43 Review of Systems ROS Statement: Those systems with pertinent positive or pertinent negative responses have been documented in the HPI. ROS Other: All systems not noted in ROS Statement are negative. Past Medical History Past Medical History: Heart Failure, CVA/TIA, Neurologic Disorder, Osteoarthritis (OA), Pneumonia Additional Past Medical History / Comment(s): Stroke with residual right-sided weakness 2017, markelechi's syndrome, ArnoldChiari malformation, spontaneous pneumo thorax x 21, scoliosis and pectus excavatum secondary to Marfan's, chronic back pain, bilateral leg pain, sinus infections, STATED HAS POOR CIRCULATION, viral meningitis, HEP C. History of Any Multi-Drug Resistant Organisms: MRSA Date of last positivie culture/infection: 05/05/2010 MDRO Source:: back per patient Past Surgical History: Cardiac Valve Replacement, Coronary Bypass/CABG, Joint Replacement Additional Past Surgical History / Comment(s): right foot corrective surgery, R shoulder surgery following injury, CABG x4 vessel, aortic root graft, aortic valve replaced as child (2 separate surgeries last 10 years old), tiffani lens removed. spleenectomy 2018 Past Anesthesia/Blood Transfusion Reactions: No Reported Reaction Past Psychological History: Anxiety Smoking Status: Current every day smoker Past Alcohol Use History: None Reported Past Drug Use History: Marijuana - Past Family History Father Additional Family Medical History / Comment(s): Father is with history of AIDS. Mother Family Medical History: Diabetes Mellitus Additional Family Medical History / Comment(s): Mother at age 49 from liver cirrhosis secondary to alcohol abuse. Brother(s) Additional Family Medical History / Comment(s): Patient has one brother with no major medical problems. Patient does not have any sisters. Patient does not have any children. General Exam - General Exam Comments Initial Comments: GENERAL: Patient is very lethargic she does respond to verbal stimuli but is unable to be understood because she is mumbling. ENT: Neck is soft and supple. No significant lymphadenopathy is noted. Oropharynx is clear. Moist mucous membranes. EYES: The sclera were anicteric and conjunctiva were pink and moist. Extraocular mov ements were intact and pupils were pinpoint bilaterally. Eyelids were unremarkable. PULMONARY: Unlabored respirations. Good breath sounds bilaterally. No audible rales rhonchi or wheezing was noted. CARDIOVASCULAR: There is a regular rate and rhythm without any murmurs gallops or rubs. ABDOMEN: Soft and nontender with normal bowel sounds. SKIN: Skin is clear with no lesions or rashes and otherwise unremarkable. NEUROLOGIC: Patient is alert and unable to understand the patient to get her orientation. MUSCULOSKELETAL: Normal extremities with adequate strength and full range of motion. LYMPHATICS: No significant lymphadenopathy is noted PSYCHIATRIC: Unable to assess at this time Limitations: no limitations Course Vital Signs 01/07/19 01/07/19 01/07/19 09:48 10:01 10:09 Temperature 98.3 F Pulse Rate 72 Respiratory 18 18 18 Rate Blood Pressure 95/72 O2 Sat by Pulse 100 Oximetry 01/07/19 01/07/19 01/07/19 10:12 11:28 12:46 Temperature Pulse Rate 69 72 68 Respiratory 18 18 18 Rate Blood Pressure 123/64 142/64 117/70 O2 Sat by Pulse 99 98 96 Oximetry Medical Decision Making - Medical Decision Making EKG shows normal sinus rhythm at 73 bpm ND interval is on a 92 QRS is 106 QT interval 408 QTC is 449. Patient's EKG shows no ST segment elevation or depression. CT brain showed no acute abnormality. Chest x-ray showed no acute abnormality. Patient was given Narcan multiple times and had no effect on the patient it was indicated because the patient's obtunded this history of narcotics abuse and the fact that her pupils were pinpoint. I spoke with the [facility] hospitalist agreed to admit the patient admitted the patient wrote admitting orders. Patient is arousable with some painful sting 9. Patient was able to ambulate with assistance to the bathroom just prior to admission. - Lab Data Result diagrams: 01/07/19 10:15 01/07/19 10:15 Lab Results 01/07/19 01/07/19 01/07/19 Range/Units 10:15 10:15 10:15 WBC 11.5 H (3.8-10.6) k/uL RBC 4.45 (3.80-5.40) m/uL Hgb 14.0 (11.4-16.0) gm/dL Hct 44.6 (34.0-46.0) % MCV 100.3 H (80.0-100.0) fL MCH 31.4 (25.0-35.0) pg MCHC 31.3 (31.0-37.0) g/dL RDW 14.7 (11.5-15.5) % Plt Count 314 (150-450) k/uL Neutrophils % 62 % Lymphocytes % 26 % Monocytes % 5 % Eosinophils % 4 % Basophils % 1 % Neutrophils # 7.1 (1.3-7.7) k/uL Lymphocytes # 3.0 (1.0-4.8) k/uL Monocytes # 0.6 (0-1.0) k/uL Eosinophils # 0.4 (0-0.7) k/uL Basophils # 0.2 (0-0.2) k/uL Hypochromasia Slight Macrocytosis Slight PT 28.3 H (9.0-12.0) sec INR 2.9 H (<1.2) APTT 35.7 H (22.0-30.0) sec Sodium 145 (137-145) mmol/L Potassium 4.5 (3.5-5.1) mmol/L Chloride 113 H (98-107) mmol/L Carbon Dioxide 25 (22-30) mmol/L Anion Gap 7 mmol/L BUN 16 (7-17) mg/dL Creatinine 0.56 (0.52-1.04) mg/dL Est GFR (CKD-EPI)AfAm >90 (>60 ml/min/1.73 sqM) Est GFR (CKD-EPI)NonAf >90 (>60 ml/min/1.73 sqM) Glucose 50 L (74-99) mg/dL POC Glucose (mg/dL) (75-99) mg/dL POC Glu Underwriting Analyst ID Calcium 8.9 (8.4-10.2) mg/dL Total Bilirubin 0.3 (0.2-1.3) mg/dL AST 21 (14-36) U/L ALT 25 (9-52) U/L Alkaline Phosphatase 77 (38-126) U/L Troponin I (0.000-0.034) ng/mL Total Protein 7.2 (6.3-8.2) g/dL Albumin 4.1 (3.5-5.0) g/dL Urine Color Urine Appearance (Clear) Urine pH (5.0-8.0) Ur Specific [place] (1.001-1.035) Urine Protein (Negative) Urine Glucose (UA) (Negative) Urine Ketones (Negative) Urine Blood (Negative) Urine Nitrite (Negative) Urine Bilirubin (Negative) Urine Urobilinogen (<2.0) mg/dL Ur Leukocyte Esterase (Negative) Urine Opiates Screen (NotDetected) Ur Oxycodone Screen (NotDetected) Urine Methadone Screen (NotDetected) Ur Propoxyphene Screen (NotDetected) Ur Barbiturates Screen (NotDetected) U Tricyclic Antidepress (NotDetected) Ur Phencyclidine Scrn (NotDetected) Ur Amphetamines Screen (NotDetected) U Methamphetamines Scrn (NotDetected) U Benzodiazepines Scrn (NotDetected) Urine Cocaine Screen (NotDetected) U Marijuana (THC) Screen (NotDetected) 01/07/19 01/07/19 01/07/19 Range/Units 10:15 10:38 10:50 WBC (3.8-10.6) k/uL RBC (3.80-5.40) m/uL Hgb (11.4-16.0) gm/dL Hct (34.0-46.0) % MCV (80.0-100.0) fL MCH (25.0-35.0) pg MCHC (31.0-37.0) g/dL RDW (11.5-15.5) % Plt Count (150-450) k/uL Neutrophils % % Lymphocytes % % Monocytes % % Eosinophils % % Basophils % % Neutrophils # (1.3-7.7) k/uL Lymphocytes # (1.0-4.8) k/uL Monocytes # (0-1.0) k/uL Eosinophils # (0-0.7) k/uL Basophils # (0-0.2) k/uL Hypochromasia Macrocytosis PT (9.0-12.0) sec INR (<1.2) APTT (22.0-30.0) sec Sodium (137-145) mmol/L Potassium (3.5-5.1) mmol/L Chloride (98-107) mmol/L Carbon Dioxide (22-30) mmol/L Anion Gap mmol/L BUN (7-17) mg/dL Creatinine (0.52-1.04) mg/dL Est GFR (CKD-EPI)AfAm (>60 ml/min/1.73 sqM) Est GFR (CKD-EPI)NonAf (>60 ml/min/1.73 sqM) Glucose (74-99) mg/dL POC Glucose (mg/dL) 94 (75-99) mg/dL POC Glu Underwriting Analyst ID Arlin Chavez Calcium (8.4-10.2) mg/dL Total Bilirubin (0.2-1.3) mg/dL AST (14-36) U/L ALT (9-52) U/L Alkaline Phosphatase (38-126) U/L Troponin I <0.012 (0.000-0.034) ng/mL Total Protein (6.3-8.2) g/dL Albumin (3.5-5.0) g/dL Urine Color Colorless Urine Appearance Clear (Clear) Urine pH 6.0 (5.0-8.0) Ur Specific [place] 1.003 (1.001-1.035) Urine Protein Negative (Negative) Urine Glucose (UA) Negative (Negative) Urine Ketones Negative (Negative) Urine Blood Negative (Negative) Urine Nitrite Negative (Negative) Urine Bilirubin Negative (Negative) Urine Urobilinogen <2.0 (<2.0) mg/dL Ur Leukocyte Esterase Negative (Negative) Urine Opiates Screen Not Detected (NotDetected) Ur Oxycodone Screen Not Detected (NotDetected) Urine Methadone Screen Not Detected (NotDetected) Ur Propoxyphene Screen Not Detected (NotDetected) Ur Barbiturates Screen Not Detected (NotDetected) U Tricyclic Antidepress Not Detected (NotDetected) Ur Phencyclidine Scrn Not Detected (NotDetected) Ur Amphetamines Screen Not Detected (NotDetected) U Methamphetamines Scrn Not Detected (NotDetected) U Benzodiazepines Scrn Not Detected (NotDetected) Urine Cocaine Screen Not Detected (NotDetected) U Marijuana (THC) Screen Not Detected (NotDetected) 01/07/19 Range/Units 12:26 WBC (3.8-10.6) k/uL RBC (3.80-5.40) m/uL Hgb (11.4-16.0) gm/dL Hct (34.0-46.0) % MCV (80.0-100.0) fL MCH (25.0-35.0) pg MCHC (31.0-37.0) g/dL RDW (11.5-15.5) % Plt Count (150-450) k/uL Neutrophils % % Lymphocytes % % Monocytes % % Eosinophils % % Basophils % % Neutrophils # (1.3-7.7) k/uL Lymphocytes # (1.0-4.8) k/uL Monocytes # (0-1.0) k/uL Eosinophils # (0-0.7) k/uL Basophils # (0-0.2) k/uL Hypochromasia Macrocytosis PT (9.0-12.0) sec INR (<1.2) APTT (22.0-30.0) sec Sodium (137-145) mmol/L Potassium (3.5-5.1) mmol/L Chloride (98-107) mmol/L Carbon Dioxide (22-30) mmol/L Anion Gap mmol/L BUN (7-17) mg/dL Creatinine (0.52-1.04) mg/dL Est GFR (CKD-EPI)AfAm (>60 ml/min/1.73 sqM) Est GFR (CKD-EPI)NonAf (>60 ml/min/1.73 sqM) Glucose (74-99) mg/dL POC Glucose (mg/dL) 100 H (75-99) mg/dL POC Glu Underwriting Analyst ID December Calcium (8.4-10.2) mg/dL Total Bilirubin (0.2-1.3) mg/dL AST (14-36) U/L ALT (9-52) U/L Alkaline Phosphatase (38-126) U/L Troponin I (0.000-0.034) ng/mL Total Protein (6.3-8.2) g/dL Albumin (3.5-5.0) g/dL Urine Color Urine Appearance (Clear) Urine pH (5.0-8.0) Ur Specific [place] (1.001-1.035) Urine Protein (Negative) Urine Glucose (UA) (Negative) Urine Ketones (Negative) Urine Blood (Negative) Urine Nitrite (Negative) Urine Bilirubin (Negative) Urine Urobilinogen (<2.0) mg/dL Ur Leukocyte Esterase (Negative) Urine Opiates Screen (NotDetected) Ur Oxycodone Screen (NotDetected) Urine Methadone Screen (NotDetected) Ur Propoxyphene Screen (NotDetected) Ur Barbiturates Screen (NotDetected) U Tricyclic Antidepress (NotDetected) Ur Phencyclidine Scrn (NotDetected) Ur Amphetamines Screen (NotDetected) U Methamphetamines Scrn (NotDetected) U Benzodiazepines Scrn (NotDetected) Urine Cocaine Screen (NotDetected) U Marijuana (THC) Screen (NotDetected) Disposition Clinical Impression: Drug overdose, Altered mental status Disposition: ADMITTED IP TO THIS HOSP Referrals: None,Stated [Primary Care Provider] - 1-2 days Time of Disposition: 12:33
[2019-01-07] MEDS ORDERED: NALOXONE 0.4 MG/ML 10 ML VIAL IVP STA (10:06)
[2019-01-07] MEDS ORDERED: SODIUM CHLORIDE 0.9% 1,000 ML IV ONE ×2 (10:19→13:23)
[2019-01-07 10:41] LABS: Basophils # (A) 0.2 k/uL (0-0.2); Basophils % (A) 1 %; Eosinophils # (A) 0.4 k/uL (0-0.7); Eosinophils % (A) 4 %; HCT 44.6 % (34.0-46.0); Hypochromasia Slight; Lymphocytes % (A) 26 %; MCH 31.4 pg (25.0-35.0); MCHC 31.3 g/dL (31.0-37.0); MCV 100.3 fL (80.0-100.0); Macrocytosis Slight; Mean Platelet Volume 7.9; Monocytes # (A) 0.6 k/uL (0-1.0); Monocytes % (A) 5 %; Neutrophils # (A) 7.1 k/uL (1.3-7.7); Neutrophils % (A) 62 %; Platelet Count 314 k/uL (150-450); RBC 4.45 m/uL (3.80-5.40); RDW 14.7 % (11.5-15.5); WBC 11.5 k/uL (3.8-10.6)
[2019-01-07 10:41] LABS: Glucose,Whole Blood 94 mg/dL (75-99)
[2019-01-07 10:45] LABS: INR 2.9 (<1.2); Partial Thromboplastin Time 35.7 sec (22.0-30.0); Prothrombin Time 28.3 sec (9.0-12.0)
[2019-01-07 10:49] LABS: ALT 25 U/L (9-52); AST 21 U/L (14-36); Albumin 4.1 g/dL (3.5-5.0); Alkaline Phosphatase 77 U/L (38-126); Anion Gap 7 mmol/L; Blood Urea Nitrogen 16 mg/dL (7-17); Calcium 8.9 mg/dL (8.4-10.2); Carbon Dioxide 25 mmol/L (22-30); Chloride 113 mmol/L (98-107); Glucose 50 mg/dL (74-99); Potassium 4.5 mmol/L (3.5-5.1); Sodium 145 mmol/L (137-145); Total Bilirubin 0.3 mg/dL (0.2-1.3); Total Protein 7.2 g/dL (6.3-8.2)
[2019-01-07 11:06] LABS: Appearance,Urine Clear (Clear); Bilirubin,Urine Negative (Negative); Blood,Urine Negative (Negative); Color,Urine Colorless; Glucose,Urine (UA) Negative (Negative); Ketones,Urine Negative (Negative); Leukocyte Esterase,Urine Negative (Negative); Nitrite,Urine Negative (Negative); Protein,Urine Negative (Negative); Specific Gravity,Urine 1.003 (1.001-1.035); Urobilinogen,Urine <2.0 mg/dL (<2.0)
[2019-01-07 11:23] LABS: Amphetamine Screen,Urine Not Detected (NotDetected); Barbiturate Screen,Urine Not Detected (NotDetected); Benzodiazepines Screen,Urine Not Detected (NotDetected); Cocaine Screen,Urine Not Detected (NotDetected); Methadone Screen, Urine Not Detected (NotDetected); Opiate Screen,Urine Not Detected (NotDetected); Oxycodone Screen, Urine Not Detected (NotDetected); Phencyclidine Screen,Urine Not Detected (NotDetected); Tricyclic Antidepressant,Urine Not Detected (NotDetected); Urn Cannabinoid Scrn Not Detected (NotDetected)
--- NOTE | 2019-01-07 11:43 | XR ---
EXAMINATION TYPE: XR chest 2V DATE OF EXAM: 01/07/2019 COMPARISON: 08/01/2018 HISTORY: Chest pain TECHNIQUE: Frontal and lateral views of the chest are obtained. FINDINGS: There is hyperinflation compatible with COPD. Severe scoliotic curvature noted. No focal infiltrate. Cardiomegaly identified. IMPRESSION: 1. Stable chest.
--- NOTE | 2019-01-07 11:46 | CT ---
EXAMINATION TYPE: CT brain wo con DATE OF EXAM: 01/07/2019 COMPARISON: CT brain June 14, 2018 HISTORY: Altered mental status CT DLP: 1142.4 mGycm. Automated Exposure Control for Dose Reduction was Utilized. TECHNIQUE: CT scan of the head is performed without contrast. FINDINGS: There is no acute intracranial hemorrhage. There is old left-sided infarct or encephalom alacia with adjacent ex vacuo dilatation left ventricular system and slight midline shift redemonstra sushil. Infarct centered in the left external capsule. Some patchy fluid signal in the right inferior fr ontal sinuses now present. Neither lens is well visualized similar to prior. Surgical changes from lo w occipital craniectomy again seen. IMPRESSION: No acute intracranial hemorrhage. Old left-sided infarct redemonstrated. Possible new mi ld right inferior frontal sinus disease otherwise no significant interval change.
[2019-01-07] MEDS ORDERED: DEXTROSE 50% SYRINGE 50 ML IVP STA (11:54)
[2019-01-07 12:29] LABS: Glucose,Whole Blood 100 mg/dL (75-99)
[2019-01-07] MEDS ORDERED: ALBUTEROL NEBULIZED 2.5 MG/3 ML INHALATION PRN (15:32)
[2019-01-07] MEDS ORDERED: HEPARIN SODIUM,PORCINE 5,000 UNIT/ML 1 ML VIAL SQ SCH (21:00)
[2019-01-07] MEDS: METOPROLOL TARTRATE 25 MG TAB PO SCH (21:34)
[2019-01-07] MEDS ORDERED: PHYTONADIONE ORAL 5 MG/5 ML ORAL.SYRG PO STA (21:51)
[2019-01-07] MEDS: LACTULOSE 20 GM/30 ML CUP PO SCH (23:06)
--- NOTE | 2019-01-08 05:15 | HP ---
HISTORY AND PHYSICAL DATE OF SERVICE: 01/07/2019. CHIEF COMPLAINTS: Change in mental status. HISTORY OF PRESENT ILLNESS: This 33-year-old woman with a past medical history of multiple medical problems including history of CVA, TIA, history of CHF, history of liver disease, neurological disorder, history of pneumonia, history of stroke, with residual weakness, MRSA, CAD CABG being followed by [facility] in the outpatient setting. The patient apparently was found to have change in mental status. The patient apparently took 2 Zyprexa tablets and patient apparently smoked marijuana, according to the staff. Otherwise, the patient was admitted for further evaluation and treatment. The patient was found to be confused and extremely drowsy and CT scan of the brain showed no acute intracranial hemorrhage, but old left-sided infarct was noted and patient admitted to the hospital for further evaluation and treatment. There is no history of any fever, rigors. No history headache, loss of consciousness or seizures at this time. PAST MEDICAL HISTORY: History of CHF, history of CVA, TIA, liver disease, history of DJD, history pneumonia, history of stroke, history of cardiac arrest, CAD, CABG, stent. MEDICATIONS: Home medications are: 1. Zyprexa 10 mg q.h.s. 2. Metoprolol 25 mg p.o. b.i.d. 3. Iron 320 mg p.o. b.i.d. 4. Cymbalta 60 mg p.o. b.i.d. 5. Vitamin D3 5000 daily. 6. Ventolin HFA 2 puffs q.i.d. p.r.n. ALLERGIES: LIBRIUM, PENICILLIN, COMPAZINE AND TORADOL. FAMILY HISTORY: History of diabetes in the family and father of AIDS. SOCIAL HISTORY: History of cocaine, heroin, marijuana, history of smoking. REVIEW OF SYSTEMS: Review of systems could not be taken as the patient is drowsy but arousable. PHYSICAL EXAM: Pulse is 73, blood pressure 126/80, respirations 16, temperature 97.9, pulse ox 100 percent on room air. HEENT: Conjunctivae normal. Oral mucosa moist. NECK is no jugular venous distention. No carotid bruit. No lymph node enlargement. CARDIOVASCULAR: S1, S2. RESPIRATORY: Breath sounds diminished in the bases. A few scattered rhonchi and crackles. ABDOMEN: Soft, nontender. No mass palpable. LEGS no edema. No swelling. NERVOUS SYSTEM: Higher functions as mentioned earlier. Moves all four extremities. No focal deficits. Lymphatics: No lymph nodes palpable in the neck, axillae or groin. JOINTS: No active arthropathy. LAB STUDIES: WBC 11.7, hemoglobin is 14. INR is 2.9, sodium 140, potassium 4.5. ASSESSMENT: 1. Change in mental status acute metabolic encephalopathy multifactorial possibly drug overdoses. 2. Rule out hepatic encephalopathy. 3. Coagulopathy, possibly secondary to chronic liver disease. 4. History of congestive heart failure. 5. History of cerebrovascular accident, transient ischemic attack. 6. History of polysubstance abuse. 7. History of degenerative joint disease. 8. History of pneumonia. 9. History of stroke with right-sided weakness with old left-sided infarct in the the CT scan. 10.History of Marfan's syndrome. 11.History Arnold-Chiari malformation. 12.History of spontaneous pneumothorax. 13.History of degenerative joint disease. 14.History of MRSA. 15.History of coronary artery disease/coronary artery bypass grafting. 16.History of anxiety. RECOMMENDATIONS AND DISCUSSION: In this 33-year-old woman who presented with multiple complex medical issues, we will monitor the patient closely. Continue the current medications, management and symptomatic treatment. Otherwise, I recommend serum ammonia level and continue to monitor. Resume the home medications. Hold Zyprexa. Psychiatric consultation. Guarded prognosis because of multiple complex medical conditions. Also recommend lactulose, also. Repeat PT/INR is also suggestive. p.o. vitamin K is also will be suggested. See orders for details. Prognosis guarded. MMODL / IJN: [id number] / MTDD
[2019-01-08 07:36] LABS: Basophils # (A) 0.2 k/uL (0-0.2); Basophils % (A) 1 %; Eosinophils # (A) 0.5 k/uL (0-0.7); Eosinophils % (A) 4 %; HGB 14.8 gm/dL (11.4-16.0); Hypochromasia Slight; Lymphocytes # (A) 2.5 k/uL (1.0-4.8); Lymphocytes % (A) 21 %; MCH 31.9 pg (25.0-35.0); MCHC 31.4 g/dL (31.0-37.0); MCV 101.6 fL (80.0-100.0); Macrocytosis Slight; Mean Platelet Volume 7.2; Monocytes # (A) 0.6 k/uL (0-1.0); Monocytes % (A) 5 %; Neutrophils # (A) 8.2 k/uL (1.3-7.7); Neutrophils % (A) 67 %; Platelet Count 289 k/uL (150-450); RBC 4.62 m/uL (3.80-5.40); RDW 14.1 % (11.5-15.5); WBC 12.2 k/uL (3.8-10.6)
[2019-01-08 07:39] LABS: Prothrombin Time 19.9 sec (9.0-12.0)
[2019-01-08] MEDS: LACTULOSE 20 GM/30 ML CUP PO SCH ×2 (07:51→16:06)
[2019-01-08 07:57] LABS: Anion Gap 6 mmol/L; Blood Urea Nitrogen 16 mg/dL (7-17); Calcium 8.7 mg/dL (8.4-10.2); Carbon Dioxide 23 mmol/L (22-30); Chloride 111 mmol/L (98-107); Glucose 80 mg/dL (74-99); Potassium 4.5 mmol/L (3.5-5.1); Sodium 140 mmol/L (137-145)
[2019-01-08] MEDS: METOPROLOL TARTRATE 25 MG TAB PO SCH ×2 (07:57→21:35)
[2019-01-08] MEDS: CHOLECALCIFEROL 1,000 UNIT TAB PO SCH (07:57)
[2019-01-08] MEDS: FERROUS SULFATE 325 MG TAB PO SCH (07:57)
[2019-01-08] MEDS: PANTOPRAZOLE 40 MG TABLET PO SCH (07:57)
[2019-01-08] MEDS ORDERED: ACETAMINOPHEN TAB 325 MG TAB PO PRN (11:07)
[2019-01-08 15:44] VITALS: BMI 16.5
--- NOTE | 2019-01-08 18:58 | PN ---
PROGRESS NOTE DATE OF SERVICE: 01/08/2019 This 33-year-old woman who was admitted with change in mental status had acute metabolic encephalopathy. The patient is still slightly drowsy. The patient is being closely monitored. PT and INR are also elevated. No chest pain. No palpitations. No fever. On exam, alert and oriented x3. Pulse 64, blood pressure 117/75, respirations 16, temperature 98.3, pulse ox 93% on room air. HEENT: Conjunctivae normal. NECK: No jugular venous distention. CARDIOVASCULAR SYSTEM: S1, S2 muffled. RESPIRATORY SYSTEM: Breath sounds diminished at the bases. No rhonchi. No crackles. ABDOMEN: Soft, non-tender. LEGS: No edema. No swelling. NERVOUS SYSTEM: No focal deficit. LABS: WBC 12.2, hemoglobin 14.8. INR is 2. ASSESSMENT: 1. Change in mental status, acute metabolic encephalopathy, multifactorial, possibly drug overdose. 2. Hepatic encephalopathy unlikely. 3. Coagulopathy, possibly secondary to chronic liver disease. 4. History of congestive heart failure. 5. History of cerebrovascular accident, transient ischemic attack. 6. History of polysubstance abuse. 7. History of degenerative joint disease. 8. History of pneumonia. 9. History of stroke with right-sided weakness with old left-sided infarct on the CT scan. 10.History of Marfan syndrome. 11.History of Arnold-Chiari malformation. 12.History of spontaneous pneumothorax. 13.History of methicillin-resistant Staphylococcus aeruginosa. 14.History of coronary artery disease, coronary artery bypass grafting. 15.History of anxiety. RECOMMENDATIONS AND DISCUSSION: I recommend to continue current medications, continue with the monitoring, symptomatic treatment. I would also recommend a hematology/oncology consultation. Will check PTT. Further recommendations to follow. Psychiatry consultation also has been obtained. MMODL / IJN: [id number] /
[2019-01-09 07:31] LABS: Basophils # (A) 0.2 k/uL (0-0.2); Basophils % (A) 2 %; Eosinophils # (A) 0.5 k/uL (0-0.7); Eosinophils % (A) 5 %; HCT 49.6 % (34.0-46.0); HGB 15.5 gm/dL (11.4-16.0); Lymphocytes % (A) 21 %; MCH 31.6 pg (25.0-35.0); MCHC 31.2 g/dL (31.0-37.0); MCV 101.3 fL (80.0-100.0); Macrocytosis Slight; Mean Platelet Volume 7.3; Monocytes # (A) 0.5 k/uL (0-1.0); Monocytes % (A) 6 %; Neutrophils % (A) 65 %; Platelet Count 306 k/uL (150-450); RDW 14.1 % (11.5-15.5); WBC 9.4 k/uL (3.8-10.6)
[2019-01-09] MEDS: PANTOPRAZOLE 40 MG TABLET PO SCH (07:41)
[2019-01-09] MEDS: CHOLECALCIFEROL 1,000 UNIT TAB PO SCH (07:41)
[2019-01-09] MEDS: METOPROLOL TARTRATE 25 MG TAB PO SCH (07:41)
[2019-01-09] MEDS: FERROUS SULFATE 325 MG TAB PO SCH (07:42)
[2019-01-09 07:51] LABS: Anion Gap 7 mmol/L; Blood Urea Nitrogen 16 mg/dL (7-17); Calcium 9.1 mg/dL (8.4-10.2); Carbon Dioxide 22 mmol/L (22-30); Chloride 112 mmol/L (98-107); Glucose 85 mg/dL (74-99); Potassium 4.9 mmol/L (3.5-5.1); Sodium 141 mmol/L (137-145)
[2019-01-09] MEDS ORDERED: ENOXAPARIN 60 MG/0.6 ML SYRINGE SQ SCH (10:00)
[2019-01-09 12:16] VITALS: BP 118/75; PULSE 73; RESP 18; TEMP 97.6
--- NOTE | 2019-01-09 12:35 | P.CN ---
Psychiatric Consult - . Consult date: 01/09/19 Consult:: 01/08/19 16:18 overdose Assessment and Plan Assessment: This is a 33-year-old female who presents emergency Department very lethargic and difficult to arouse. Patient did tell EMS that she took to Zyprexa this morning so she could sleep and did smoke some marijuana. Patient's eyes are however extremely pinpoint and she does have a narcotics abuse history. Patient is only mumbling when I wake her up and also it is difficult to get any further history at this time. - Related Data Home Medications Medication Instructions Recorded Confirmed Cholecalciferol [Vitamin D3 (25 5,000 unit PO DAILY 05/18/18 01/07/19 Mcg = 1000 Iu)] Metoprolol Tartrate 25 mg PO BID 06/04/18 01/07/19 DULoxetine HCL [Cymbalta] 60 mg PO BID 06/14/18 01/07/19 Ferrous Sulfate [Iron (65 MG 325 mg PO DAILY 06/14/18 01/07/19 Elemental)] OLANZapine [ZyPREXA] 10 mg PO HS 06/14/18 01/07/19 Albuterol Inhaler [Ventolin Hfa 2 puff INHALATION RT-Q8H PRN 09/17/18 01/07/19 Inhaler] Allergies Allergy/AdvReac Type Severity Reaction Status Date / Time chlordiazepoxide HCl Allergy Unknown Verified 01/07/19 10:43 [From Librium] Penicillins Allergy Rash/Hives Verified 01/07/19 10:43 prochlorperazine edisylate Allergy PANIC Verified 01/07/19 10:43 [From Compazine] ATTACK prochlorperazine maleate Allergy PANIC Verified 01/07/19 10:43 [From Compazine] ATTACK ketorolac [From Toradol] AdvReac Unknown Verified 01/07/19 10:43 Past Medical History Past Medical History: Heart Failure, CVA/TIA, Neurologic Disorder, Osteoarthritis (OA), Pneumonia Additional Past Medical History / Comment(s): Stroke with residual right-sided weakness 2016, marfan's syndrome, ArnoldChiari malformation, spontaneous pneumothorax x 21, scoliosis and pectus excavatum secondary to Marfan's, chronic back pain, bilateral leg pain, sinus infections, STATED HAS POOR CIRCULATION, viral meningitis, HEP C. History of Any Multi-Drug Resistant Organisms: MRSA Date of last positivie culture/infection: 05/05/2010 MDRO Source:: back per patient Past Surgical History: Cardiac Valve Replacement, Coronary Bypass/CABG, Joint Replacement Additional Past Surgical History / Comment(s): right foot corrective surgery, R shoulder surgery following injury, CABG x4 vessel, aortic root graft, aortic valve replaced as child (2 separate surgeries last 10 years old), tiffani lens removed. spleenectomy 2018 Past Anesthesia/Blood Transfusion Reactions: No Reported Reaction Past Psychological History: Anxiety 2 Psychiatric hospitalization in March of 2017 and June of 2017, did not follow up post discharge for either Smoking Status: Current every day smoker Past Alcohol Use History: None Reported Past Drug Use History: Marijuana - Past Family History Father Additional Family Medical History / Comment(s): Father is with history of AIDS. Mother Family Medical History: Diabetes Mellitus Additional Family Medical History / Comment(s): Mother at age 49 from liver cirrhosis secondary to alcohol abuse. Brother(s) Additional Family Medical History / Comment(s): Patient has one brother with no major medical problems. Patient does not have any sisters. Patient does not have any children. Past Medical History: Eye Disorder, Neurologic Disorder, Osteoarthritis (OA), Pneumonia Additional Past Medical History / Comment(s): Stroke with residual right-sided weakness 2017, marfan's syndrome, ArnoldChiari malformation, spontaneous pneumothorax x 21, scoliosis and pectus excavatum secondary to Marfan's, chronic back pain, bilateral leg pain, sinus infections, STATED HAS POOR CIRCULATION, viral meningitis, HEP C. History of Any Multi-Drug Resistant Organisms: MRSA Date of last positivie culture/infection: 05/05/2010 MDRO Source:: back per patient Past Surgical History: Cardiac Valve Replacement, Coronary Bypass/CABG, Joint Replacement Additional Past Surgical History / Comment(s): 10-27-16 I&D RT FOREARM ABSCESS, left upper lobectomy age 16, left hip fracture-ORIF, right foot corrective surgery, R shoulder surgery following injury, CABG x4 vessel, aortic root graft, aortic valve replaced as child (2 separate surgeries last 10 years old), tiffani lens removed. Past Anesthesia/Blood Transfusion Reactions: No Reported Reaction Past Psychological History: Anxiety Additional Psychological History / Comment(s): pt stated she has depression and in past week thoughts of suicide but not at current time of admission .pt lives with her brother. uses a walker when up. receives no home care services. in the past had been non compliant with her medical therapy including anticoagulation despite thae fact that she has a mechanical valve. Smoking Status: Current every day smoker Past Alcohol Use History: None Reported Additional Past Alcohol Use History / Comment(s): STARTED SMOKING AT AGE 11 SMOKES 1/2 PPD Past Drug Use History: Heroin, IV Drug Use, Marijuana, Opiates Additional Drug Use History / Comment(s): Pt states she has used heroin, cocaine/crack and marijuana .pt stated she quit 2.5 months ago. (labs positive for marijuana) Past Family History Father Additional Family Medical History / Comment(s): Father is with history of AIDS. Mother Family Medical History: Diabetes Mellitus Additional Family Medical History / Comment(s): Mother at age 49 from liver cirrhosis secondary to alcohol abuse. Brother(s) Additional Family Medical History / Comment(s): Patient has one brother with no major medical problems. Patient does not have any sisters. Patient does not have any children. SOCIAL HISTORY: education: 11th occupational: SSDI environmental: lives with brother and brother's girlfriend : no uatsdin: no preference access to firearms: no sexual orientation: heterosexual Mental status examination: The patient presents alert, pleasant, and cooperative. There calmly seated without any agitated behavior. She reports that [her] mood is good. Affect is congruent and euthymic. [She] deny having any suicidal or homicidal ideation intent or plan. [She] denies any auditory or visual hallucinations. There is no evidence of any delusional thought content. [Her] thought process is linear and goal-directed. [Her] speech is fluent and nonpressured. [Her] memory and concentration is grossly intact for the purposes of this session. Psychiatric impression: Depression in remission and he is not a harm to herself or others Psychiatric recommendation: Discontinue one-to-one sitters and patient may be discharged home she has not a candidate for 3 [facility] Thank you for the consult El Benavides D.O. PhD (1) Depression Current Visit: No Status: Acute Priority: Low Code(s): F32.9 - MAJOR DEPRESSIVE DISORDER, SINGLE EPISODE, UNSPECIFIED SNOMED Code(s): 46318236 Time with Patient: Less than 30
--- NOTE | 2019-01-09 13:49 | P.CONS ---
History of Present Illness - Reason for Consult Consult date: 01/09/19 Coagualopathy Requesting physician: Warner Childers - Chief Complaint Overdose, altered mental status - History of Present Illness Ms Gilmore is a pleasant 33 year old female who was transprted by EMS to [facility] for concern of overdose. She has a known history of drug abuse and was apparently with mental status changes, lethargy, pinpoint pupils and slow to respond the am she presented to emergency. She admitted to taking her prescribed medications at , although still could not fall asleep so she smoked marijuana. On arrival her INR was 2. Arlin does have an extensive history and was taking warfarin prior to admission which likely accounted for her warfarin level elevation. She stated she was on anticoagulation since the age of around 6 for her extensive congenital history including Marfans syndrome with Pectus Excavatum, Paramjit-Chiari Malformation, Heart failure. Other significant history includes: CVA/TIA with residual left sided weakness (2017), Spontaneous Pneumothorax x21, Chronic Pain and narcotic dependence, tobacco abuse, Illicit drug use, viral meningitis, hepatitis C, Peripheral artery disease, depression, anxiety, overdose. Review of Systems A 14 point review of systems assessed and completed and all negative except HPI Past Medical History Past Medical History: Heart Failure, CVA/TIA, Liver Disease, Neurologic Disorder, Osteoarthritis (OA), Pneumonia Additional Past Medical History / Comment(s): Stroke with residual right-sided weakness 2017, TIAs, marfan's syndrome, ArnoldChiari malformation, spontaneous pneumothorax x 21, scoliosis and pectus excavatum secondary to Marfan's, chronic back pain, bilateral leg pain, gastric ulcers, sinus infections, STATED HAS POOR CIRCULATION, viral meningitis, HEP C. History of Any Multi-Drug Resistant Organisms: MRSA Year Discovered:: 05/05/2010 MDRO Source:: back per patient Past Surgical History: Cardiac Valve Replacement, Coronary Bypass/CABG, Joint Replacement Additional Past Surgical History / Comment(s): right foot corrective surgery, R shoulder surgery following injury, CABG x4 vessel, aortic root graft, aortic/mitral valve replaced as child (2 separate surgeries last 10 years old), tiffani lens removed. spleenectomy 2018, L upper lobectomy d/t pneumothoraxs. Past Anesthesia/Blood Transfusion Reactions: No Reported Reaction Smoking Status: Current every day smoker - Past Family History Father Additional Family Medical History / Comment(s): Father is with history of AIDS. Mother Family Medical History: Diabetes Mellitus Additional Family Medical History / Comment(s): Mother at age 49 from liver cirrhosis secondary to alcohol abuse. Brother(s) Additional Family Medical History / Comment(s): Patient has one brother with no major medical problems. Medications and Allergies Home Medications Medication Instructions Recorded Confirmed Type Cholecalciferol [Vitamin D3 (25 5,000 unit PO DAILY 05/18/18 01/07/19 History Mcg = 1000 Iu)] Metoprolol Tartrate 25 mg PO BID 06/04/18 01/07/19 History DULoxetine HCL [Cymbalta] 60 mg PO BID 06/14/18 01/07/19 History Ferrous Sulfate [Iron (65 MG 325 mg PO DAILY 06/14/18 01/07/19 History Elemental)] OLANZapine [ZyPREXA] 10 mg PO HS 06/14/18 01/07/19 History Albuterol Inhaler [Ventolin Hfa 2 puff INHALATION RT-Q8H PRN 09/17/18 01/07/19 History Inhaler] Enoxaparin [Lovenox] 50 mg SQ Q12HR syringe 01/09/19 Rx Warfarin [Coumadin] 5 mg PO TUTHSA 01/09/19 01/09/19 History Warfarin [Coumadin] 7.5 mg PO SUMOWEFR 01/09/19 01/09/19 History Allergies Allergy/AdvReac Type Severity Reaction Status Date / Time chlordiazepoxide HCl Allergy Unknown Verified 01/07/19 10:43 [From Librium] Penicillins Allergy Rash/Hives Verified 01/07/19 10:43 prochlorperazine edisylate Allergy PANIC Verified 01/07/19 10:43 [From Compazine] ATTACK prochlorperazine maleate Allergy PANIC Verified 01/07/19 10:43 [From Compazine] ATTACK ketorolac [From Toradol] AdvReac Unknown Verified 01/07/19 10:43 Physical Exam Vitals: Vital Signs Temp Pulse Resp BP Pulse Ox 01/09/19 11:28 97.6 F 73 18 118/75 99 01/09/19 05:00 97.4 F L 59 L 16 124/74 95 01/09/19 00:00 76 16 01/08/19 21:00 97.4 F L 76 16 122/72 93 L Intake and Output 01/08/19 01/09/19 01/09/19 22:59 06:59 14:59 Intake Total 1260 240 420 Balance 1260 240 420 Intake: Oral 1260 240 420 Other: Voiding Method Toilet Toilet Incontinent Incontinent # Voids 1 1 # Bowel Movements 2 Weight 50.802 kg Gen: Alert and Oriented, NAD Head: NCNT Neck: Supple, No palpable adenopathy Lungs: Diminished throughout Heart: Irr, Irrg Abd: ND, NT Ext: Thin no edema Neuro: Left resiual weakness, no new sensory or motor deficits. Results CBC & Chem 7: 01/09/19 07:04 01/09/19 07:04 Labs: Abnormal Lab Results - Last 24 Hours (Table) 01/09/19 01/09/19 Range/Units 07:04 07:04 Hct 49.6 H (34.0-46.0) % MCV 101.3 H (80.0-100.0) fL Chloride 112 H (98-107) mmol/L Assessment and Plan Plan: Assessment and Recommendations: 1. Elevated INR: - Under further assessment it was found the patient has been on anticoagulation therapy since the age of 6 years - Dr. Mahajan did discuss with Dr. Childers and will re-initiate Anticoagulation, will chula require bridging for therapeutic levels 2. Previously noted abnormal electrophoresis and immunifixation: - Re-check Electrophoresis, immunifixation, immunoglobulins, and FLC - Patient can follow-up in 4-6 weeks to review these labs. 3. Multiple co-morbidies, congenital disorders, hypercoaguable state - Discharge on Lovenox and follow-up with known PCP and/or [facility] as previously Physcian Attest: I have performed the entire history and physical of this pa tient, devloped the complete impression and plan and agree with above dictation, dictated as a scribe.
[2019-01-09 16:18] LABS: Folate, Serum 10.4 ng/mL
[2019-01-09 20:16] LABS: Protein, Total 6.7 g/dL (6.2-8.2)
--- NOTE | 2019-01-09 20:46 | DS ---
DISCHARGE SUMMARY FINAL DIAGNOSES: 1. Change in mental status, acute metabolic encephalopathy, possibly drug- induced. 2. History of apparent Zyprexa overdose and tetrahydrocannabinol. 3. Coumadin monitoring. 4. Aortic graft and aortic valve replacement for Marfan syndrome. 5. History of congestive heart failure. 6. Cerebrovascular accident, transient ischemic attack. 7. History of polysubstance abuse. 8. History of degenerative joint disease. 9. History of pneumonia. 10.History of stroke with right-sided weakness with old left-sided infarct on the CT scan. 11.History of Marfan syndrome. 12.History of Arnold-Chiari malformation. 13.History of spontaneous pneumothorax. 14.History of methicillin-resistant Staphylococcus aeruginosa. 15.History of anxiety. DISCHARGE DISPOSITION: The patient will be discharged in stable condition with guarded prognosis. Total time taken 35 minutes. HISTORY OF PRESENT ILLNESS: This 33-year-old woman with a past medical history of multiple medical problems, being followed by [facility] as well as Dr. Morris in the outpatient setting, had change in mental status. The patient was suspected to have Zyprexa overdose plus THC, according to her. The patient was treated symptomatically and the patient improved significantly. Patient did not have any evidence of hepatic encephalopathy. Ammonia was normal. Patient was treated symptomatically. On exam, vitals are stable. CARDIOVASCULAR SYSTEM: S1 normal. S2 prosthetic. RESPIRATORY: A few scattered rhonchi. ABDOMEN: Soft. NERVOUS SYSTEM: No focal deficit. The patient will be discharged in stable condition with guarded prognosis with the following advice and medications. Total time taken 35 minutes. 1. Discharge diet is cardiac. 2. Activity limited until followup. 3. Follow up with [facility] as well as Cardiology as recommended. 4. Cymbalta 60 mg p.o. b.i.d. 5. Iron sulfate 325 mg p.o. daily. 6. Metoprolol 25 mg b.i.d. 8. Vitamin D3 5000 units p.o. daily. 9. Zyprexa 10 mg at bedtime. 10.Continue the home dose of Coumadin. 11.Lovenox 50 mg subcutaneously b.i.d. for 4 more doses. MMODL / IJN: [id number] / MTDD
[2019-01-10 11:27] LABS: Albumin 3.81 g/dL (3.80-4.90); Gamma Globulin 1.25 g/dL (0.70-1.50)
== END 2019-01-09 14:50 | disposition home or self-care (01) ==
LOC: EC 09:46 → 3NMEDONC 13:23
PROVIDERS: ADMIT Hospitalist; ATTEND Hospitalist
DX: G93.41 Metabolic encephalopathy (principal); T43.591A Poisoning by other antipsychotics and neuroleptics, accidental (unintentional), initial encounter; Z95.2 Presence of prosthetic heart valve; I50.9 Heart failure, unspecified; I69.351 Hemiplegia and hemiparesis following cerebral infarction affecting right dominant side; M19.90 Unspecified osteoarthritis, unspecified site; Q07.00 Arnold-Chiari syndrome without spina bifida or hydrocephalus; F41.9 Anxiety disorder, unspecified; F32.9 Major depressive disorder, single episode, unspecified; M54.9 Dorsalgia, unspecified; G89.29 Other chronic pain; M79.605 Pain in left leg; M79.604 Pain in right leg; I25.10 Atherosclerotic heart disease of native coronary artery without angina pectoris; D68.9 Coagulation defect, unspecified; I73.9 Peripheral vascular disease, unspecified; Z90.81 Acquired absence of spleen; Z90.2 Acquired absence of lung [part of]; F17.200 Nicotine dependence, unspecified, uncomplicated; Z88.0 Allergy status to penicillin; Z79.899 Other long term (current) drug therapy; Z88.8 Allergy status to other drugs, medicaments and biological substances; Z87.11 Personal history of peptic ulcer disease; Z87.01 Personal history of pneumonia (recurrent); Z86.14 Personal history of Methicillin resistant Staphylococcus aureus infection; Z95.1 Presence of aortocoronary bypass graft; Z86.19 Personal history of other infectious and parasitic diseases; Z86.74 Personal history of sudden cardiac arrest; Z79.01 Long term (current) use of anticoagulants; Z83.0 Family history of human immunodeficiency virus [HIV] disease; Z83.3 Family history of diabetes mellitus; Z81.1 Family history of alcohol abuse and dependence; Z83.79 Family history of other diseases of the digestive system
CPT/HCPCS: 96361 ×3; 96372 ×2; 96374; 99285; 36415; 83921; 80053; 80048 ×2; 82140 ×2; 82746; 84484; 85025 ×3; 85610 ×3; 85730 ×2; 81003; 82784 ×3; 84165; 80306; 86334; 83883; 71046; 70450; G0378 ×3; J1644; J2310 ×2; J1650

== ENCOUNTER 2019-02-09 12:31 | Emergency (ER) | payer OTHER ==
[2019-02-09 12:42] VITALS: BP 141/82; PULSE 92; RESP 16; TEMP 98.8
--- NOTE | 2019-02-09 15:51 | ED ---
General Adult HPI - General Chief complaint: Seizure Stated complaint: Syncope Time Seen by Provider: 02/09/19 12:35 Source: EMS, RN notes reviewed, old records reviewed Mode of arrival: EMS Limitations: no limitations - History of Present Illness Initial comments: Patient is a 33-year-old female with a history of Marfan's disorder, who presents emergency department today to her boyfriend stated that she "spaced out". She was standing still looking up at the radha with her mouth open. This lasted for approximately a minute. The boyfriend lowered her to the ground. He reports that they have been walking for long distance today. Patient has a known history of substance abuse. She denies any opiate use today. EMS was called. Upon arrival Patient was somnolent, Patient would not respond to EMS. Blood sugar is 88. Blood pressure was stable. Upon arriving to emergency Department Patient was more arousable alert. Patient denies any falls or head trauma. Patient states that she is having some back pain however this is chronic. She denies any fevers or chills, chest pain or shortness of breath. Patient states that she has a history of TIAs or stroke in the past. She is also on Coumadin, and reports that she needs to have her INR checked. - Related Data Home Medications Medication Instructions Recorded Confirmed Cholecalciferol [Vitamin D3 (25 5,000 unit PO DAILY 05/18/18 01/07/19 Mcg = 1000 Iu)] Metoprolol Tartrate 25 mg PO BID 06/04/18 01/07/19 DULoxetine HCL [Cymbalta] 60 mg PO BID 06/14/18 01/07/19 Ferrous Sulfate [Iron (65 MG 325 mg PO DAILY 06/14/18 01/07/19 Elemental)] OLANZapine [ZyPREXA] 10 mg PO HS 06/14/18 01/07/19 Albuterol Inhaler [Ventolin Hfa 2 puff INHALATION RT-Q8H PRN 09/17/18 01/07/19 Inhaler] Warfarin [Coumadin] 5 mg PO TUTHSA 01/09/19 01/09/19 Warfarin [Coumadin] 7.5 mg PO SUMOWEFR 01/09/19 01/09/19 Previous Rx's Medication Instructions Recorded Enoxaparin [Lovenox] 50 mg SQ Q12HR syringe 01/09/19 Allergies Allergy/AdvReac Type Severity Reaction Status Date / Time chlordiazepoxide HCl Allergy Unknown Verified 01/07/19 10:43 [From Librium] Penicillins Allergy Rash/Hives Verified 01/07/19 10:43 prochlorperazine edisylate Allergy PANIC Verified 01/07/19 10:43 [From Compazine] ATTACK prochlorperazine maleate Allergy PANIC Verified 01/07/19 10:43 [From Compazine] ATTACK ketorolac [From Toradol] AdvReac Unknown Verified 01/07/19 10:43 Review of Systems ROS Statement: Those systems with pertinent positive or pertinent negative responses have been documented in the HPI. ROS Other: All systems not noted in ROS Statement are negative. Past Medical History Past Medical History: Heart Failure, CVA/TIA, Liver Disease, Neurologic Disorder, Osteoarthritis (OA), Pneumonia Additional Past Medical History / Comment(s): Stroke with residual right-sided weakness 2017, TIAs, marfan's syndrome, ArnoldChiari malformation, spontaneous pneumothorax x 21, scoliosis and pectus excavatum secondary to Marfan's, chronic back pain, bilateral leg pain, gastric ulcers, sinus infections, STATED HAS POOR CIRCULATION, viral meningitis, HEP C. 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 spleenectomy 2018, L upper lobectomy d/t pneumothoraxs. Past Anesthesia/Blood Transfusion Reactions: No Reported Reaction Past Psychological History: Anxiety Smoking Status: Current every day smoker Past Alcohol Use History: Occasional Past Drug Use History: Marijuana - Past Family History Father Additional Family Medical History / Comment(s): Father is with history of AIDS. Mother Family Medical History: Diabetes Mellitus Additional Family Medical History / Comment(s): Mother at age 49 from liver cirrhosis secondary to alcohol abuse. Brother(s) Additional Family Medical History / Comment(s): Patient has one brother with no major medical problems. General Exam - General Exam Comments Initial Comments: This is an alert and oriented 33-year-old female. Patient appears in no significant distress. Somewhat sleepy. Ambulating without difficulty. Marfan body type. Limitations: no limitations General appearance: alert, in no apparent distress Head exam: Present: atraumatic, normocephalic, normal inspection Eye exam: Present: normal appearance, PERRL, EOMI. Absent: scleral icterus, conjunctival injection, periorbital swelling ENT exam: Present: normal exam, mucous membranes moist, other (Pinpoint pupils noted.) Neck exam: Present: normal inspection. Absent: tenderness, meningismus, lymphadenopathy Respiratory exam: Present: normal lung sounds bilaterally Cardiovascular Exam: Present: regular rate, normal rhythm, normal heart sounds. Absent: systolic murmur, diastolic murmur, rubs, gallop, clicks GI/Abdominal exam: Present: soft, normal bowel sounds. Absent: distended, ten derness, guarding, rebound, rigid Extremities exam: Present: normal inspection, full ROM, normal capillary refill. Absent: tenderness, pedal edema, joint swelling, calf tenderness Back exam: Present: normal inspection Neurological exam: Present: alert, oriented X3, CN II-XII intact Psychiatric exam: Present: normal affect, normal mood Skin exam: Present: warm, dry, intact, normal color. Absent: rash Course Vital Signs 02/09/19 12:37 Temperature 98.8 F Pulse Rate 92 Respiratory 16 Rate Blood Pressure 141/82 O2 Sat by Pulse 97 Oximetry Medical Decision Making - Medical Decision Making This is a 33-year-old female presents emergency department for spacing out episode lasting approximately a minute according to boyfriend. Upon arrival here she is alert and oriented 3. She complains of just chronic back pain. I offered the Patient IV fluids, blood work and further testing. Denies any fall trauma or head injury. Patient does not know why she had this episode. When asked about drugs she denied any recent drug use. When IV was not able to be easily established Patient became upset and stated she wanted to go home. Patient was advised that she will be leaving AMA. Patient walked out of the ER with her boyfriend after signing AMA form. Discussed if she had any further complaints or symptoms such as that she is welcome to return. Disposition Clinical Impression: Unresponsive episode Disposition: Left Against Medical Advice Is patient prescribed a controlled substance at d/c from ED?: No Referrals: None,Stated [Primary Care Provider] - 1-2 days Time of Disposition: 15:50
== END 2019-02-09 12:52 | disposition left against medical advice (07) ==
LOC: EC 12:31
DX: R55 Syncope and collapse (principal); G89.29 Other chronic pain; M54.9 Dorsalgia, unspecified; R40.0 Somnolence; F19.11 Other psychoactive substance abuse, in remission; Q87.40 Marfan syndrome, unspecified; I50.9 Heart failure, unspecified; M19.90 Unspecified osteoarthritis, unspecified site; F17.200 Nicotine dependence, unspecified, uncomplicated; Z88.0 Allergy status to penicillin; Z88.6 Allergy status to analgesic agent; Z88.8 Allergy status to other drugs, medicaments and biological substances; Z79.01 Long term (current) use of anticoagulants; Z79.899 Other long term (current) drug therapy; Z86.14 Personal history of Methicillin resistant Staphylococcus aureus infection; Z86.73 Personal history of transient ischemic attack (TIA), and cerebral infarction without residual deficits; Z95.1 Presence of aortocoronary bypass graft; Z95.2 Presence of prosthetic heart valve; Z96.60 Presence of unspecified orthopedic joint implant; Z87.09 Personal history of other diseases of the respiratory system; Z90.2 Acquired absence of lung [part of]; Z53.20 Procedure and treatment not carried out because of patient's decision for unspecified reasons
CPT/HCPCS: 99285

== ENCOUNTER 2019-02-23 11:54 | Emergency (ER) | payer OTHER ==
[2019-02-23] MEDS ORDERED: ACETAMINOPHEN TAB 500 MG TAB PO STA (13:28)
[2019-02-23 14:08] LABS: HCT 46.6 % (34.0-46.0); HGB 14.9 gm/dL (11.4-16.0); MCH 31.5 pg (25.0-35.0); MCHC 31.9 g/dL (31.0-37.0); MCV 98.5 fL (80.0-100.0); Mean Platelet Volume 7.4; Platelet Count 355 k/uL (150-450); RBC 4.73 m/uL (3.80-5.40); WBC 14.2 k/uL (3.8-10.6)
[2019-02-23 14:35] LABS: INR 4.9 (<1.2); Prothrombin Time 47.1 sec (9.0-12.0)
--- NOTE | 2019-02-23 14:35 | XR ---
EXAMINATION TYPE: XR knee complete RT DATE OF EXAM: 02/23/2019 COMPARISON: NONE HISTORY: Knee pain TECHNIQUE: 3 views FINDINGS: There is some bowing of the tibia and fibula consistent with dysplasia and abnormal ambulat ion. There is no knee joint effusion. I see no fracture. There is osteopenia. IMPRESSION: No acute abnormality of the right knee.
--- NOTE | 2019-02-23 14:35 | XR ---
EXAMINATION TYPE: XR tibia fibula RT DATE OF EXAM: 02/23/2019 COMPARISON: NONE HISTORY: Pain TECHNIQUE: 3 views FINDINGS: There is mild posterior bowing of the proximal tibia and fibula. I see no fracture nor disl ocation. There is osteopenia. Ankle joint and knee joint are intact. IMPRESSION: No acute abnormality of the right tibia and fibula.
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
[2019-02-23 15:16] LABS: African American GFR (CKD) >90 (>60 ml/min/1.73 sqM); Anion Gap 12 mmol/L; Blood Urea Nitrogen 8 mg/dL (7-17); Calcium 9.2 mg/dL (8.4-10.2); Carbon Dioxide 21 mmol/L (22-30); Chloride 107 mmol/L (98-107); Glucose 115 mg/dL (74-99); Potassium 4.6 mmol/L (3.5-5.1); Sodium 140 mmol/L (137-145)
--- NOTE | 2019-02-23 15:26 | US ---
EXAMINATION TYPE: US venous doppler duplex LE RT DATE OF EXAM: 02/23/2019 3:12 PM COMPARISON: NONE CLINICAL HISTORY: Pain. Right leg pain SIDE PERFORMED: right TECHNIQUE: The lower extremity deep venous system is examined utilizing real time linear array sonog blanca with graded compression, doppler sonography and color-flow sonography. VESSELS IMAGED: External Iliac Vein (EIV) Common Femoral Vein Deep Femoral Vein Greater Saphenous Vein * Femoral Vein Popliteal Vein Small Saphenous Vein * Proximal Calf Veins (* superficial vessels) Right Leg: Technical limitations, patient unable to tolerate any pressure within popliteal fossa, no evidence of DVT as visualized IMPRESSION: No evidence of deep venous thrombosis in the right leg.
[2019-02-23 16:43] VITALS: BP 155/99; PULSE 97; RESP 18; TEMP 98.4
== END 2019-02-23 16:43 | disposition home or self-care (01) ==
LOC: EC 11:54
DX: G89.29 Other chronic pain (principal); M79.604 Pain in right leg; R79.1 Abnormal coagulation profile; I50.9 Heart failure, unspecified; M19.90 Unspecified osteoarthritis, unspecified site; F41.9 Anxiety disorder, unspecified; F17.210 Nicotine dependence, cigarettes, uncomplicated; Z95.2 Presence of prosthetic heart valve; Z95.1 Presence of aortocoronary bypass graft; Z86.73 Personal history of transient ischemic attack (TIA), and cerebral infarction without residual deficits; Z86.14 Personal history of Methicillin resistant Staphylococcus aureus infection; Z96.698 Presence of other orthopedic joint implants; Z79.01 Long term (current) use of anticoagulants; Z79.899 Other long term (current) drug therapy; Z88.8 Allergy status to other drugs, medicaments and biological substances; Z88.0 Allergy status to penicillin; Z88.6 Allergy status to analgesic agent
CPT/HCPCS: 36415; 80048; 82550; 83880; 85027; 85610; 99284

== ENCOUNTER 2019-04-01 12:24 | Emergency (ER) | payer OTHER ==
[2019-04-01 12:41] VITALS: BP 121/71; PULSE 96; RESP 18; TEMP 98
== END 2019-04-01 13:29 | disposition left against medical advice (07) ==
LOC: EC 12:24
DX: R00.0 Tachycardia, unspecified (principal); R07.1 Chest pain on breathing; S90.822A Blister (nonthermal), left foot, initial encounter; S90.821A Blister (nonthermal), right foot, initial encounter; Z53.21 Procedure and treatment not carried out due to patient leaving prior to being seen by health care provider
CPT/HCPCS: 93005; 99499

== ENCOUNTER 2019-04-19 11:03 | Emergency (ER) | payer OTHER ==
[2019-04-19 11:11] VITALS: BP 138/86; PULSE 87; RESP 20; TEMP 97.9
--- NOTE | 2019-04-19 11:40 | ED ---
Recheck HPI - General Chief Complaint: Recheck/Abnormal Lab/Rx Stated Complaint: Withdrawing off Suboxone Time Seen by Provider: 04/19/19 11:17 Source: patient, RN notes reviewed, old records reviewed Mode of arrival: ambulatory Limitations: no limitations - History of Present Illness Initial Comments: This is a 31-year-old female the ER for evaluation. Patient's wound is ER for evaluation. Patient is multiple medical comorbidities as well as psychiatric and behavioral comorbidities as well as substance abuse. Patient presents today requesting Suboxone, stating Suboxone withdrawal his main reason for evaluation. Complains or is not feeling well. MD Complaint: medication refill request -: days(s) Returns Today for: request for prescription, persistent/worsening pain related to initial visit Symptoms Since Prior Visit: no new symptoms Context: ran out of medication Associated Symptoms: none - Related Data Home Medications Medication Instructions Recorded Confirmed Cholecalciferol [Vitamin D3 (25 5,000 unit PO DAILY 05/18/18 04/19/19 Mcg = 1000 Iu)] Metoprolol Tartrate 25 mg PO BID 06/04/18 04/19/19 DULoxetine HCL [Cymbalta] 60 mg PO BID 06/14/18 04/19/19 Ferrous Sulfate [Iron (65 MG 325 mg PO DAILY 06/14/18 04/19/19 Elemental)] Albuterol Inhaler [Ventolin Hfa 2 puff INHALATION RT-Q8H PRN 09/17/18 04/19/19 Inhaler] Warfarin [Coumadin] 5 mg PO DAILY 01/09/19 04/19/19 Cyanocobalamin/Cobamamide [Vitamin 1 tab SL DAILY 04/19/19 04/19/19 B-12 5,000 Mcg Tab Sl] OLANZapine [ZyPREXA] 15 mg PO HS 04/19/19 04/19/19 Allergies Allergy/AdvReac Type Severity Reaction Status Date / Time chlordiazepoxide HCl Allergy Unknown Verified 04/19/19 11:26 [From Librium] Penicillins Allergy Rash/Hives Verified 04/19/19 11:26 prochlorperazine edisylate Allergy PANIC Verified 04/19/19 11:26 [From Compazine] ATTACK prochlorperazine maleate Allergy PANIC Verified 04/19/19 11:26 [From Compazine] ATTACK ketorolac [From Toradol] AdvReac Unknown Verified 04/19/19 11:26 Review of Systems ROS Statement: Those systems with pertinent positive or pertinent negative responses have been documented in the HPI. ROS Other: All systems not noted in ROS Statement are negative. Past Medical History Past Medical History: Heart Failure, CVA/TIA, Liver Disease, Neurologic Disorder, Osteoarthritis (OA), Pneumonia Additional Past Medical History / Comment(s): Stroke with residual right-sided weakness 2017, TIAs, marfan's syndrome, ArnoldChiari malformation, spontaneous pneumothorax x 21, scoliosis and pectus excavatum secondary to Marfan's, chronic back pain, bilateral leg pain, gastric ulcers, sinus infections, STATED HAS POOR CIRCULATION, viral meningitis, HEP C. 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 spleenectomy 2018, L upper lobectomy d/t pneumothoraxs. Past Anesthesia/Blood Transfusion Reactions: No Reported Reaction Past Psychological History: Anxiety Smoking Status: Current every day smoker Past Alcohol Use History: Occasional Past Drug Use History: Heroin, Marijuana - Past Family History Father Additional Family Medical History / Comment(s): Father is with history of AIDS. Mother Family Medical History: Diabetes Mellitus Additional Family Medical History / Comment(s): Mother at age 49 from liver cirrhosis secondary to alcohol abuse. Brother(s) Additional Family Medical History / Comment(s): Patient has one brother with no major medical problems. General Exam Limitations: no limitations General appearance: alert, in no apparent distress Head exam: Present: atraumatic, normocephalic, normal inspection Eye exam: Present: normal appearance, PERRL, EOMI. Absent: scleral icterus, conjunctival injection, periorbital swelling ENT exam: Present: normal exam, mucous membranes moist Neck exam: Present: normal inspection. Absent: tenderness, meningismus, lymphadenopathy Respiratory exam: Present: normal lung sounds bilaterally. Absent: respiratory distress, wheezes, rales, rhonchi, stridor Cardiovascular Exam: Present: regular rate, normal rhythm, normal heart sounds. Absent: systolic murmur, diastolic murmur, rubs, gallop, clicks GI/Abdominal exam: Present: soft, normal bowel sounds. Absent: distended, tenderness, guarding, rebound, rigid Extremities exam: Present: normal inspection, full ROM, normal capillary refill. Absent: tenderness, pedal edema, joint swelling, calf tenderness Back exam: Present: normal inspection Neurological exam: Present: alert, oriented X3, CN II-XII intact Psychiatric exam: Present: normal affect, normal mood Skin exam: Present: warm, dry, intact, normal color. Absent: rash Course Vital Signs 04/19/19 11:06 Temperature 97.9 F Pulse Rate 87 Respiratory 20 Rate Blood Pressure 138/86 O2 Sat by Pulse 99 Oximetry - Reevaluation(s) Reevaluation #1: 04/19/19 12:02 Medical records reviewed Reevaluation #2: 04/19/19 12:02 Spoke with patient explaining inability to give Suboxone Medical Decision Making - Medical Decision Making 33 female well-known to this ER for evaluation. Presents today for evaluation regards to not feeling well. Patient patient may be going through opiate withdrawal. Her guardian patient unable to be given opiates here in the ER, patient will be for scar no medication and discharged home, patient is not homicidal or suicidal currently Disposition Clinical Impression: Opiate withdrawal, Polysubstance dependence including opioid type drug with complication, continuous use, Encounter for medication refill Disposition: HOME SELF-CARE Condition: Good Instructions (If sedation given, give patient instructions): Medicine Refill (ED), Opioid Withdrawal (ED) Is patient prescribed a controlled substance at d/c from ED?: No Referrals: [facility] [Primary Care Provider] - 1-2 days
[2019-04-19] MEDS ORDERED: ONDANSETRON ODT 4 MG TAB PO STA (12:00)
[2019-04-19] MEDS ORDERED: cloNIDine 0.3 MG/24HR PATCH TRANSDERM SCH (12:00)
[2019-04-19] MEDS ORDERED: ONDANSETRON 4 MG ODT STARTER PACK 2 TAB BTL PO STA (12:00)
== END 2019-04-19 12:23 | disposition home or self-care (01) ==
LOC: EC 11:03
DX: F11.23 Opioid dependence with withdrawal (principal); Z76.0 Encounter for issue of repeat prescription; F17.200 Nicotine dependence, unspecified, uncomplicated; Z79.01 Long term (current) use of anticoagulants; Z79.899 Other long term (current) drug therapy; Z88.0 Allergy status to penicillin; Z88.8 Allergy status to other drugs, medicaments and biological substances; Z88.6 Allergy status to analgesic agent; I50.9 Heart failure, unspecified; Z95.1 Presence of aortocoronary bypass graft; Z95.2 Presence of prosthetic heart valve; Z86.73 Personal history of transient ischemic attack (TIA), and cerebral infarction without residual deficits; Z86.14 Personal history of Methicillin resistant Staphylococcus aureus infection
CPT/HCPCS: 99284; S0119

== ENCOUNTER 2019-04-22 15:38 | Emergency (ER) | payer OTHER ==
[2019-04-22 15:44] VITALS: BP 158/99; PULSE 88; RESP 16; TEMP 97.8
[2019-04-22] MEDS ORDERED: ONDANSETRON ODT 4 MG TAB PO STA (16:37)
[2019-04-22] MEDS ORDERED: ONDANSETRON 4 MG ODT STARTER PACK 2 TAB BTL PO STA (16:51)
--- NOTE | 2019-04-22 16:53 | ED ---
General Adult HPI - General Chief complaint: Nausea/Vomiting/Diarrhea Stated complaint: Nausea, Dizziness Time Seen by Provider: 04/22/19 15:49 Source: patient, EMS Mode of arrival: EMS Limitations: no limitations - History of Present Illness Initial comments: Patient is a 33-year-old female presenting to emergency Department with a chief complaint of nausea. Her caregiver called the phone suggested not to give the patient any benzos and narcotics due to her extensive history of IV drug use. Patient reports she developed nausea this morning with mild dizziness. Probably resolve. Patient denies any vomiting or diarrhea. Patient reports she has been on antidepressants and has recently stopped using it which she is saturating the nausea to. Patient reports "blisters" on bilateral feet. Patient reports they started approximately a week ago and she has been using hydrogen peroxide with water with minimal improvement. Patient denies any lightheadedness,, blurred vision, gait instability, chest pain, chest tightness or shortness of breath. - Related Data Home Medications Medication Instructions Recorded Confirmed Cholecalciferol [Vitamin D3 (25 5,000 unit PO DAILY 05/18/18 04/19/19 Mcg = 1000 Iu)] Metoprolol Tartrate 25 mg PO BID 06/04/18 04/19/19 DULoxetine HCL [Cymbalta] 60 mg PO BID 06/14/18 04/19/19 Ferrous Sulfate [Iron (65 MG 325 mg PO DAILY 06/14/18 04/19/19 Elemental)] Albuterol Inhaler [Ventolin Hfa 2 puff INHALATION RT-Q8H PRN 09/17/18 04/19/19 Inhaler] Warfarin [Coumadin] 5 mg PO DAILY 01/09/19 04/19/19 Cyanocobalamin/Cobamamide [Vitamin 1 tab SL DAILY 04/19/19 04/19/19 B-12 5,000 Mcg Tab Sl] OLANZapine [ZyPREXA] 15 mg PO HS 04/19/19 04/19/19 Allergies Allergy/AdvReac Type Severity Reaction Status Date / Time chlordiazepoxide HCl Allergy Unknown Verified 04/22/19 15:40 [From Librium] Penicillins Allergy Rash/Hives Verified 04/22/19 15:40 prochlorperazine edisylate Allergy PANIC Verified 04/22/19 15:40 [From Compazine] ATTACK prochlorperazine maleate Allergy PANIC Verified 04/22/19 15:40 [From Compazine] ATTACK ketorolac [From Toradol] AdvReac Unknown Verified 04/22/19 15:40 Review of Systems ROS Statement: Those systems with pertinent positive or pertinent negative responses have been documented in the HPI. ROS Other: All systems not noted in ROS Statement are negative. Past Medical History Past Medical History: Heart Failure, CVA/TIA, Liver Disease, Neurologic Disorder, Osteoarthritis (OA), Pneumonia Additional Past Medical History / Comment(s): Stroke with residual right-sided weakness 2017, TIAs, marfan's syndrome, ArnoldChiari malformation, spontaneous pneumothorax x 21, scoliosis and pectus excavatum secondary to Marfan's, chronic back pain, bilateral leg pain, gastric ulcers, sinus infections, STATED HAS POOR CIRCULATION, viral meningitis, HEP C. 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 spleenectomy 2018, L upper lobectomy d/t pneumothoraxs. Past Anesthesia/Blood Transfusion Reactions: No Reported Reaction Past Psychological History: Anxiety Smoking Status: Current every day smoker Past Alcohol Use History: Occasional Past Drug Use History: Heroin, Marijuana - Past Family History Father Additional Family Medical History / Comment(s): Father is with history of AIDS. Mother Family Medical History: Diabetes Mellitus Additional Family Medical History / Comment(s): Mother at age 49 from liver cirrhosis secondary to alcohol abuse. Brother(s) Additional Family Medical History / Comment(s): Patient has one brother with no major medical problems. General Exam Limitations: no limitations General appearance: alert, in no apparent distress, other (Low BMI) Head exam: Present: atraumatic, normocephalic, normal inspection Eye exam: Present: normal appearance, PERRL, EOMI Pupils: Present: normal accommodation ENT exam: Present: normal exam, mucous membranes moist, normal external ear exam Neck exam: Present: normal inspection, full ROM Respiratory exam: Present: normal lung sounds bilaterally Cardiovascular Exam: Present: regular rate, normal rhythm, normal heart sounds GI/Abdominal exam: Present: soft, normal bowel sounds. Absent: tenderness, guarding, rebound Extremities exam: Present: full ROM. Absent: normal inspection (bonion on left foot. No visible bullae on bilateral lower extremities.) Back exam: Present: normal inspection, full ROM Neurological exam: Present: alert, oriented X3 Psychiatric exam: Present: normal affect, normal mood Skin exam: Present: warm, intact, normal color Course Vital Signs 04/22/19 15:40 Temperature 97.8 F Pulse Rate 88 Respiratory 16 Rate Blood Pressure 158/99 O2 Sat by Pulse 99 Oximetry Medical Decision Making - Medical Decision Making Patient is a 33-year-old female presenting to emergency department with a chief complaint of nausea. Patient was given Zofran. Advised the patient to avoid using hydroperoxide her feet and change socks multiple times today. Patient advised to soak feet in Epsom salts. A few minutes after the patient was given Zofran. Patient did not want to stay in the emergency department and a longer and was willing to sign out AGAINST MEDICAL ADVICE if she was not discharge at the time. Patient was discharged. Patient advised to follow with primary care. Strict return parameters were thoroughly discussed patient is understanding and agreeable. Case discussed physician. Disposition Clinical Impression: Nausea Disposition: HOME SELF-CARE Condition: Stable Instructions (If sedation given, give patient instructions): Acute Nausea and Vomiting (ED) Additional Instructions: Please follow with primary care. Please return to emergency department if symptoms worsen. Please take prescribed medication as directed. Is patient prescribed a controlled substance at d/c from ED?: No Referrals: [facility] [Primary Care Provider] - 1-2 days Time of Disposition: 16:52
== END 2019-04-22 16:57 | disposition home or self-care (01) ==
LOC: EC 15:38
DX: R11.0 Nausea (principal); M21.612 Bunion of left foot; R42 Dizziness and giddiness; I50.9 Heart failure, unspecified; M19.90 Unspecified osteoarthritis, unspecified site; F41.9 Anxiety disorder, unspecified; F17.200 Nicotine dependence, unspecified, uncomplicated; Z88.0 Allergy status to penicillin; Z88.6 Allergy status to analgesic agent; Z88.8 Allergy status to other drugs, medicaments and biological substances; Z79.01 Long term (current) use of anticoagulants; Z79.899 Other long term (current) drug therapy; Z86.73 Personal history of transient ischemic attack (TIA), and cerebral infarction without residual deficits; Z95.1 Presence of aortocoronary bypass graft; Z95.2 Presence of prosthetic heart valve; Z96.60 Presence of unspecified orthopedic joint implant; Z86.14 Personal history of Methicillin resistant Staphylococcus aureus infection
CPT/HCPCS: 99284; S0119

== ENCOUNTER 2019-05-19 17:09 | Emergency (ER) | payer OTHER ==
[2019-05-19 17:20] VITALS: TEMP 97.9
[2019-05-19] MEDS ORDERED: NALOXONE 0.4 MG/ML 1 ML VIAL IV STA ×2 (17:22→18:18)
--- NOTE | 2019-05-19 17:29 | ED ---
General Adult HPI - General Chief complaint: Chest Pain Stated complaint: near syncope Time Seen by Provider: 05/19/19 17:11 Source: patient, EMS Mode of arrival: EMS Limitations: no limitations - History of Present Illness Initial comments: Dictation was produced using [employer] 3 dictation software. please excuse any grammatical, word or spelling errors. Chief Complaint: 33-year-old female with multiple comorbidities presents with chest pain radiating to the left upper extremity. History of Present Illness: 33-year-old female she has multiple comorbidities. She is any illicit drug use or with history of heart failure, multiple valve replacements for bowel disease, CVA. She presents today with sharp chest pain located in the anterior chest that radiated to the left upper extremity. She was doing her laundry when her symptoms started. She told her boyfriend who then called EMS and patient transferred to the emergency department. She reports that she purchase his Suboxone on the streets illegally.. Patient is a history of Marfan's disease. She states her pain was severe on its onset however isn't improved after several minutes. She does report that still there. Patient does not know if she has any history of aortic dissection. Patient is currently residing at a custodial. She does have a guardian that makes decisions for her. She is not allowed to have benzodiazepines, opiates. Decision maker also requests a urine drug screen. The ROS documented in this emergency department record has been reviewed and confirmed by me. Those systems with pertinent positive or negative responses have been documented in the HPI. All other systems are other negative and/or noncontributory. PHYSICAL EXAM: General Impression: Alert and oriented x3, not in acute distress, mildly somnolent HEENT: Normocephalic atraumatic, extra-ocular movements intact, pinpoint pupils, mucous membranes moist. Cardiovascular: Heart regular rate and rhythm, S1&S2 audible, no murmurs, rubs or gallops Chest: Lungs clear to auscultation bilaterally, no rhonchi, no wheeze, no rales, pectus excavatum Abdomen: Bowel sounds present, abdomen soft, non-tender, non-distended, no organomegaly Musculoskeletal: Pulses present and equal in all extremities, no peripheral edema Motor: no focal deficits noted Neurological: CN II-XII grossly intact, no focal motor or sensory deficits noted Skin: Intact with no visualized rashes Psych: Normal affect and mood ED course: 33 y old female presents with chief complaint of chest pain radiating to the left arm. She states her pain is episodic and was significantly uncomfortable at its onset however has improved. She states the pain radiates to left upper extremity. Denies any neuro deficits or sensory differences in her left versus right extremity. Vital signs upon arrival shows blood pressure of 71/38, worse vital signs within acceptable limits. Patient's well-appearing at bedside. She does not appear to be in significant distress. She does have pinpoint pupils. Clinical presentation concerning for opiate toxidrome. Patient's blood pressure improved after initial Narcan administration however she still was slightly somnolent and with continued pinpoint pupils. She started on Narcan infusion. CT angios the chest was obtained to evaluate for the aorta however contrast was time for pulmonary embolus. There was a suspected portion seen on the CT angios the chest. Discussed this with Dr. Ortiz who is radiologist reading reports. He was amenable to repeating the CT with contrast to evaluate the aorta to look for acute aortic dissection given patient's symptomatology. Laboratory evaluation obtained. CBC is unremarkable. Coag panel shows INR 3.9. Metabolic panel is negative. Cardiac enzymes negative. Urinalysis shows 6 white blood cells in the urine. Brain CT is negative. Chest x-ray is nonacute. CT of the aorta was obtained showing linear hyperdensity at the aortic arch. Findings are concerning for acute aortic dissection. There appears to be radiographically evidence that dissection spreads up to the left subclavian artery. Discussed patient case 1 [facility] who will call his back to see if they were able to accept the transfer. Patient reevaluated at bedside with stable blood pressures. Bedside troponin care ultrasound was performed to evaluate for possible cardiac tamponade. No cardiac effusion noted. At this point patient's blood pressures are managed. No antihypertensives indicated at this time. Received a call back from [facility] who was unable to transfer. We called [facility] who also was not able to take her. Finally we were able to get in touch with chest pain from [facility]. Discussed patient case with Dr. Mendez of [facility] locally is a cardiovascular surgeon he re quested patient be transferred through the ER. This patient case with Dr. jean baptiste who is willing to accept patient transfer. She reevaluated at bedside. Blood pressure pill stable. Patient appears stable. Esmolol drip is prepared at bedside however given her acceptable heart rate and blood pressure dictation for administration at the moment. EKG interpretation: Ventricular rate 81, normal sinus rhythm,. 162, care is 106, QTC 504. No PA prolongations. Prolonged QT. - Related Data Home Medications Medication Instructions Recorded Confirmed Cholecalciferol [Vitamin D3 (25 5,000 unit PO DAILY 05/18/18 05/19/19 Mcg = 1000 Iu)] Metoprolol Tartrate 25 mg PO BID 06/04/18 05/19/19 DULoxetine HCL [Cymbalta] 60 mg PO BID 06/14/18 05/19/19 Ferrous Sulfate [Iron (65 MG 325 mg PO DAILY 06/14/18 05/19/19 Elemental)] Albuterol Inhaler [Ventolin Hfa 2 puff INHALATION RT-Q8H PRN 09/17/18 05/19/19 Inhaler] Warfarin [Coumadin] 5 mg PO DAILY 01/09/19 05/19/19 Cyanocobalamin/Cobamamide [Vitamin 1 tab SL DAILY 04/19/19 05/19/19 B-12 5,000 Mcg Tab Sl] OLANZapine [ZyPREXA] 15 mg PO HS 04/19/19 05/19/19 Melatonin 3 mg PO HS 05/19/19 05/19/19 Allergies Allergy/AdvReac Type Severity Reaction Status Date / Time chlordiazepoxide HCl Allergy Unknown Verified 05/19/19 17:28 [From Librium] Penicillins Allergy Rash/Hives Verified 05/19/19 17:28 prochlorperazine edisylate Allergy PANIC Verified 05/19/19 17:28 [From Compazine] ATTACK prochlorperazine maleate Allergy PANIC Verified 05/19/19 17:28 [From Compazine] ATTACK ketorolac [From Toradol] AdvReac Unknown Verified 05/19/19 17:28 Review of Systems ROS Statement: Those systems with pertinent positive or pertinent negative responses have been documented in the HPI. ROS Other: All systems not noted in ROS Statement are negative. Past Medical History Past Medical History: Heart Failure, CVA/TIA, Liver Disease, Neurologic Disorder, Osteoarthritis (OA), Pneumonia Additional Past Medical History / Comment(s): Stroke with residual right-sided weakness 2016, TIAs, marfan's syndrome, ArnoldChiari malformation, spontaneous pneumothorax x 21, scoliosis and pectus excavatum secondary to Marfan's, chronic back pain, bilateral leg pain, gastric ulcers, sinus infections, STATED HAS POOR CIRCULATION, viral meningitis, HEP C. 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 spleenectomy 2018, L upper lobectomy d/t pneumothoraxs. Past Anesthesia/Blood Transfusion Reactions: No Reported Reaction Past Psychological History: Anxiety Smoking Status: Current every day smoker Past Alcohol Use History: Occasional Past Drug Use History: Heroin, Marijuana - Past Family History Father Additional Family Medical History / Comment(s): Father is with history of AIDS. Mother Family Medical History: Diabetes Mellitus Additional Family Medical History / Comment(s): Mother at age 49 from liver cirrhosis secondary to alcohol abuse. Brother(s) Additional Family Medical History / Comment(s): Patient has one brother with no major medical problems. General Exam Limitations: no limitations Course Vital Signs 05/19/19 05/19/19 05/19/19 17:14 17:15 17:20 Temperature 97.9 F Pulse Rate 60 Respiratory 16 Rate Blood Pressure 71/38 71/38 O2 Sat by Pulse 97 85 L Oximetry 05/19/19 05/19/19 05/19/19 17:30 17:40 17:50 Temperature Pulse Rate 75 73 75 Respiratory 16 10 L 11 L Rate Blood Pressure 80/48 77/44 77/52 O2 Sat by Pulse 97 Oximetry 05/19/19 05/19/19 05/19/19 18:00 18:10 18:13 Temperature Pulse Rate 74 75 Respiratory 13 11 L 59 H Rate Blood Pressure 77/52 76/42 O2 Sat by Pulse Oximetry 05/19/19 05/19/19 05/19/19 18:20 18:29 18:30 Temperature Pulse Rate 78 79 Respiratory 14 16 19 Rate Blood Pressure 86/51 86/53 O2 Sat by Pulse Oximetry 05/19/19 05/19/19 05/19/19 19:45 20:00 20:01 Temperature Pulse Rate 79 79 Respiratory 16 16 16 Rate Blood Pressure 96/60 75/60 O2 Sat by Pulse 95 Oximetry 05/19/19 05/19/19 05/19/19 20:15 20:30 20:45 Temperature Pulse Rate 79 80 80 Respiratory 16 16 16 Rate Blood Pressure 75/60 102/61 110/63 O2 Sat by Pulse Oximetry 05/19/19 21:00 Temperature Pulse Rate 82 Respiratory 9 L Rate Blood Pressure 117/63 O2 Sat by Pulse Oximetry Medical Decision Making - Lab Data Result diagrams: 05/19/19 17:55 05/19/19 17:55 Lab Results 05/19/19 05/19/19 05/19/19 Range/Units 17:55 17:55 17:55 WBC 10.5 (3.8-10.6) k/uL RBC 3.96 (3.80-5.40) m/uL Hgb 12.6 (11.4-16.0) gm/dL Hct 39.4 (34.0-46.0) % MCV 99.4 (80.0-100.0) fL MCH 31.8 (25.0-35.0) pg MCHC 32.0 (31.0-37.0) g/dL RDW 14.2 (11.5-15.5) % Plt Count 267 (150-450) k/uL Neutrophils % 61 % Lymphocytes % 27 % Monocytes % 6 % Eosinophils % 4 % Basophils % 1 % Neutrophils # 6.4 (1.3-7.7) k/uL Lymphocytes # 2.8 (1.0-4.8) k/uL Monocytes # 0.6 (0-1.0) k/uL Eosinophils # 0.5 (0-0.7) k/uL Basophils # 0.1 (0-0.2) k/uL PT 37.4 H (9.0-12.0) sec INR 3.9 H (<1.2) APTT 45.0 H (22.0-30.0) sec Sodium (137-145) mmol/L Potassium (3.5-5.1) mmol/L Chloride (98-107) mmol/L Carbon Dioxide (22-30) mmol/L Anion Gap mmol/L BUN (7-17) mg/dL Creatinine (0.52-1.04) mg/dL Est GFR (CKD-EPI)AfAm (>60 ml/min/1.73 sqM) Est GFR (CKD-EPI)NonAf (>60 ml/min/1.73 sqM) Glucose (74-99) mg/dL POC Glucose (mg/dL) (75-99) mg/dL POC Glu Learning Operations Specialist ID Calcium (8.4-10.2) mg/dL Magnesium (1.6-2.3) mg/dL Total Bilirubin (0.2-1.3) mg/dL AST (14-36) U/L ALT (9-52) U/L Alkaline Phosphatase (38-126) U/L Troponin I <0.012 (0.000-0.034) ng/mL Total Protein (6.3-8.2) g/dL Albumin (3.5-5.0) g/dL Lipase (23-300) U/L Urine Color Urine Appearance (Clear) Urine pH (5.0-8.0) Ur Specific Galva (1.001-1.035) Urine Protein (Negative) Urine Glucose (UA) (Negative) Urine Ketones (Negative) Urine Blood (Negative) Urine Nitrite (Negative) Urine Bilirubin (Negative) Urine Urobilinogen (<2.0) mg/dL Ur Leukocyte Esterase (Negative) Urine RBC (0-5) /hpf Urine WBC (0-5) /hpf Ur Squamous Epith Cells (0-4) /hpf Hyaline Casts (0-2) /lpf Urine HCG, Qual (Not Detectd) Urine Opiates Screen (NotDetected) Ur Oxycodone Screen (NotDetected) Urine Methadone Screen (NotDetected) Ur Propoxyphene Screen (NotDetected) Ur Barbiturates Screen (NotDetected) U Tricyclic Antidepress (NotDetected) Ur Phencyclidine Scrn (NotDetected) Ur Amphetamines Screen (NotDetected) U Methamphetamines Scrn (NotDetected) U Benzodiazepines Scrn (NotDetected) Urine Cocaine Screen (NotDetected) U Marijuana (THC) Screen (NotDetected) 05/19/19 05/19/1905/19/19 Range/Units 17:55 18:37 19:49 WBC (3.8-10.6) k/uL RBC (3.80-5.40) m/uL Hgb (11.4-16.0) gm/dL Hct (34.0-46.0) % MCV (80.0-100.0) fL MCH (25.0-35.0) pg MCHC (31.0-37.0) g/dL RDW (11.5-15.5) % Plt Count (150-450) k/uL Neutrophils % % Lymphocytes % % Monocytes % % Eosinophils % % Basophils % % Neutrophils # (1.3-7.7) k/uL Lymphocytes # (1.0-4.8) k/uL Monocytes # (0-1.0) k/uL Eosinophils # (0-0.7) k/uL Basophils # (0-0.2) k/uL PT (9.0-12.0) sec INR (<1.2) APTT (22.0-30.0) sec Sodium 139 (137-145) mmol/L Potassium 3.8 (3.5-5.1) mmol/L Chloride 109 H (98-107) mmol/L Carbon Dioxide 24 (22-30) mmol/L Anion Gap 6 mmol/L BUN 11 (7-17) mg/dL Creatinine 0.64 (0.52-1.04) mg/dL Est GFR (CKD-EPI)AfAm >90 (>60 ml/min/1.73 sqM) Est GFR (CKD-EPI)NonAf >90 (>60 ml/min/1.73 sqM) Glucose 107 H (74-99) mg/dL POC Glucose (mg/dL) 81 (75-99) mg/dL POC Glu Learning Operations Specialist ID Maya Goldstein A Calcium 8.3 L (8.4-10.2) mg/dL Magnesium 1.8 (1.6-2.3) mg/dL Total Bilirubin 0.3 (0.2-1.3) mg/dL AST 23 (14-36) U/L ALT 15 (9-52) U/L Alkaline Phosphatase 68 (38-126) U/L Troponin I (0.000-0.034) ng/mL Total Protein 6.2 L (6.3-8.2) g/dL Albumin 3.3 L (3.5-5.0) g/dL Lipase 131 (23-300) U/L Urine Color Urine Appearance (Clear) Urine pH (5.0-8.0) Ur Specific Galva (1.001-1.035) Urine Protein (Negative) Urine Glucose (UA) (Negative) Urine Ketones (Negative) Urine Blood (Negative) Urine Nitrite (Negative) Urine Bilirubin (Negative) Urine Urobilinogen (<2.0) mg/dL Ur Leukocyte Esterase (Negative) Urine RBC (0-5) /hpf Urine WBC (0-5) /hpf Ur Squamous Epith Cells (0-4) /hpf Hyaline Casts (0-2) /lpf Urine HCG, Qual Not Detected (Not Detectd) Urine Opiates Screen (NotDetected) Ur Oxycodone Screen (NotDetected) Urine Methadone Screen (NotDetected) Ur Propoxyphene Screen (NotDetected) Ur Barbiturates Screen (NotDetected) U Tricyclic Antidepress (NotDetected) Ur Phencyclidine Scrn (NotDetected) Ur Amphetamines Screen (NotDetected) U Methamphetamines Scrn (NotDetected) U Benzodiazepines Scrn (NotDetected) Urine Cocaine Screen (NotDetected) U Marijuana (THC) Screen (NotDetected) 05/19/19 05/19/19 05/19/19 Range/Units 19:49 19:49 20:26 WBC (3.8-10.6) k/uL RBC (3.80-5.40) m/uL Hgb (11.4-16.0) gm/dL Hct (34.0-46.0) % MCV (80.0-100.0) fL MCH (25.0-35.0) pg MCHC (31.0-37.0) g/dL RDW (11.5-15.5) % Plt Count (150-450) k/uL Neutrophils % % Lymphocytes % % Monocytes % % Eosinophils % % Basophils % % Neutrophils # (1.3-7.7) k/uL Lymphocytes # (1.0-4.8) k/uL Monocytes # (0-1.0) k/uL Eosinophils # (0-0.7) k/uL Basophils # (0-0.2) k/uL PT (9.0-12.0) sec INR (<1.2) APTT (22.0-30.0) sec Sodium (137-145) mmol/L Potassium (3.5-5.1) mmol/L Chloride (98-107) mmol/L Carbon Dioxide (22-30) mmol/L Anion Gap mmol/L BUN (7-17) mg/dL Creatinine (0.52-1.04) mg/dL Est GFR (CKD-EPI)AfAm (>60 ml/min/1.73 sqM) Est GFR (CKD-EPI)NonAf (>60 ml/min/1.73 sqM) Glucose (74-99) mg/dL POC Glucose (mg/dL) 87 (75-99) mg/dL POC Glu Learning Operations Specialist ID Tawana Marquez Calcium (8.4-10.2) mg/dL Magnesium (1.6-2.3) mg/dL Total Bilirubin (0.2-1.3) mg/dL AST (14-36) U/L ALT (9-52) U/L Alkaline Phosphatase (38-126) U/L Troponin I (0.000-0.034) ng/mL Total Protein (6.3-8.2) g/dL Albumin (3.5-5.0) g/dL Lipase (23-300) U/L Urine Color Yellow Urine Appearance Clear (Clear) Urine pH 6.0 (5.0-8.0) Ur Specific Galva 1.040 H (1.001-1.035) Urine Protein Negative (Negative) Urine Glucose (UA) Negative (Negative) Urine Ketones Negative (Negative) Urine Blood Small H (Negative) Urine Nitrite Negative (Negative) Urine Bilirubin Negative (Negative) Urine Urobilinogen <2.0 (<2.0) mg/dL Ur Leukocyte Esterase Small H (Negative) Urine RBC 2 (0-5) /hpf Urine WBC 6 H (0-5) /hpf Ur Squamous Epith Cells 3 (0-4) /hpf Hyaline Casts 1 (0-2) /lpf Urine HCG, Qual (Not Detectd) Urine Opiates Screen Not Detected (NotDetected) Ur Oxycodone Screen Not Detected (NotDetected) Urine Methadone Screen Not Detected (NotDetected) Ur Propoxyphene Screen Not Detected (NotDetected) Ur Barbiturates Screen Not Detected (NotDetected) U Tricyclic Antidepress Not Detected (NotDetected) Ur Phencyclidine Scrn Not Detected (NotDetected) Ur Amphetamines Screen Detected H (NotDetected) U Methamphetamines Scrn Detected H (NotDetected) U Benzodiazepines Scrn Not Detected (NotDetected) Urine Cocaine Screen Not Detected (NotDetected) U Marijuana (THC) Screen Detected H (NotDetected) Critical Care Time Critical Care Time: Yes Total Critical Care Time: 72 Disposition Clinical Impression: Aortic dissection Disposition: OTHER INSTITUTION NOT DEFINED Condition: Critical Referrals: [facility] [Primary Care Provider] - 1-2 days Time of Disposition: 21:42 - Out of Hospital Transfer - Req. Specs Out of Hospital Transfer - Requested Specifics: Other Emergency Center ([facility])
[2019-05-19 18:13] LABS: Basophils # (A) 0.1 k/uL (0-0.2); Basophils % (A) 1 %; Eosinophils # (A) 0.5 k/uL (0-0.7); Eosinophils % (A) 4 %; HCT 39.4 % (34.0-46.0); HGB 12.6 gm/dL (11.4-16.0); Lymphocytes # (A) 2.8 k/uL (1.0-4.8); Lymphocytes % (A) 27 %; MCH 31.8 pg (25.0-35.0); MCV 99.4 fL (80.0-100.0); Monocytes # (A) 0.6 k/uL (0-1.0); Monocytes % (A) 6 %; Neutrophils # (A) 6.4 k/uL (1.3-7.7); Neutrophils % (A) 61 %; Platelet Count 267 k/uL (150-450); RBC 3.96 m/uL (3.80-5.40); RDW 14.2 % (11.5-15.5); WBC 10.5 k/uL (3.8-10.6)
[2019-05-19] MEDS ORDERED: NALOXONE 0.4 MG/ML 10 ML VIAL IV STA (18:22)
[2019-05-19 18:23] LABS: INR 3.9 (<1.2); Prothrombin Time 37.4 sec (9.0-12.0)
[2019-05-19 18:26] LABS: ALT 15 U/L (9-52); AST 23 U/L (14-36); African American GFR (CKD) >90 (>60 ml/min/1.73 sqM); Albumin 3.3 g/dL (3.5-5.0); Alkaline Phosphatase 68 U/L (38-126); Anion Gap 6 mmol/L; Blood Urea Nitrogen 11 mg/dL (7-17); Calcium 8.3 mg/dL (8.4-10.2); Carbon Dioxide 24 mmol/L (22-30); Chloride 109 mmol/L (98-107); Glucose 107 mg/dL (74-99); Magnesium 1.8 mg/dL (1.6-2.3); Potassium 3.8 mmol/L (3.5-5.1); Sodium 139 mmol/L (137-145); Total Bilirubin 0.3 mg/dL (0.2-1.3); Total Protein 6.2 g/dL (6.3-8.2)
[2019-05-19] MEDS ORDERED: SODIUM CHLORIDE 0.9% 500 ML 500 ML IV STA (18:28)
[2019-05-19 18:42] LABS: Glucose,Whole Blood 81 mg/dL (75-99)
--- NOTE | 2019-05-19 19:13 | XR ---
EXAMINATION TYPE: XR chest 1V portable DATE OF EXAM: 05/19/2019 COMPARISON: Chest x-ray January 07, 2019. HISTORY: Chest pain. TECHNIQUE: Single frontal view of the chest is obtained. FINDINGS: Underlying prominent scoliosis is redemonstrated. There is partial visualization of fixati on hardware through healed fracture right proximal humerus. There is chronic parenchymal change witho ut new suspicious focal airspace opacity or pneumothorax seen bilaterally. Cardiomegaly is redemonstr ated. IMPRESSION: Cardiomegaly and chronic changes without new suspicious acute pulmonary process.
--- NOTE | 2019-05-19 19:19 | CT ---
EXAMINATION TYPE: CT angio chest DATE OF EXAM: 05/19/2019 COMPARISON: CTA chest August 24, 2014 and July 05, 2016 HISTORY: Chest pain CT DLP: 294.1 mGycm. Automated Exposure Control for Dose Reduction was Utilized. CONTRAST: CTA scan of the thorax is performed with IV Contrast, patient injected with 100 mL of Isovue 370, pul monary embolism protocol. MIP Images are created on CT scanner and reviewed. FINDINGS: LUNGS: Background fairly moderate emphysematous change most prominent in the lung apices. No pleural effusion or pneumothorax. No suspicious focal consolidation. Scattered bibasilar linear scarring and/ or atelectasis. MEDIASTINUM: There is satisfactory enhancement of the pulmonary artery and its branches, there is no CT evidence for pulmonary embolism. Enlarged main pulmonary artery, CT findings suggesting underlyin g pulmonary hypertension. There are no greater than 1 cm hilar or mediastinal lymph nodes. No peric ardial effusion is seen. Cardiomegaly with moderate to severe biatrial dilatation. Persistent surgica l change at the aortic root with prominent left-sided coronary cusp redemonstrated. OTHER: Underlying significant S-shaped scoliosis. IMPRESSION: No CT evidence for acute pulmonary embolism. Cardiomegaly and chronic emphysematous reyes e without acute pulmonary process. No significant change from prior.
[2019-05-19] MEDS ORDERED: NALOXONE 2 MG in SODIUM CHLORIDE 0.9% 250 ML IV SCH (19:30)
--- NOTE | 2019-05-19 19:47 | CT ---
EXAMINATION TYPE: CT brain wo con DATE OF EXAM: 05/19/2019 COMPARISON: CT brain January 07, 2019 HISTORY: Altered metal status CT DLP: 1099.4 mGycm. Automated Exposure Control for Dose Reduction was Utilized. TECHNIQUE: CT scan of the head is performed without contrast. FINDINGS: There is no acute intracranial hemorrhage, mass effect, or midline shift identified. Old infarct left basal ganglia and external capsule is redemonstrated with ex vacuo dilatation of the ad jacent left lateral ventricle and frontal horn. Mild generalized cerebral atrophy. Contrast from rece nt CTA chest study causes density in the cerebral vessels and draining veins. Old midline mid occipit al craniectomy redemonstrated . The globes are intact and the visualized sinuses are clear. IMPRESSION: No acute intracranial hemorrhage or midline shift is seen. Old left-sided infarct and po sterior inferior surgical changes redemonstrated. No significant change from prior.
[2019-05-19 20:07] LABS: Appearance,Urine Clear (Clear); Bilirubin,Urine Negative (Negative); Blood,Urine Small (Negative); Color,Urine Yellow; Glucose,Urine (UA) Negative (Negative); Hyaline Casts,Urine 1 /lpf (0-2); Ketones,Urine Negative (Negative); Leukocyte Esterase,Urine Small (Negative); Nitrite,Urine Negative (Negative); Protein,Urine Negative (Negative); RBC,Urine 2 /hpf (0-5); Squamous Epithelial Cell,Urine 3 /hpf (0-4); Urobilinogen,Urine <2.0 mg/dL (<2.0)
[2019-05-19 20:29] LABS: Glucose,Whole Blood 87 mg/dL (75-99)
--- NOTE | 2019-05-19 20:31 | CT ---
EXAMINATION TYPE: CT angio chest DATE OF EXAM: 05/19/2019 COMPARISON: CTA chest earlier today. HISTORY: R/O dissection, abnormal CT, prior CT not ordered properly. History of Marfan's syndrome CT DLP: 503.5 mGycm. Automated Exposure Control for Dose Reduction was Utilized. CONTRAST: CTA scan of the thorax is performed with IV Contrast, patient injected with 60 mL of Isovue 370, pulm onary embolism protocol. MIP Images are created on CT scanner and reviewed. FINDINGS: Suspicion for dissection is confirmed with persistent irregular linear hypodensity in the aortic arch more prominent anteriorly may be extending into the left subclavian artery axial image 27 series 401 . Aneurysm of ascending aorta just proximal to this is noted. IMPRESSION: As above. Case discussed with ER physician at time of dictation.
[2019-05-19] MEDS: MAGNESIUM SULFATE-D5W PMX 1 GM in DEXTROSE/WATER 1 100ML.BAG IVPB SCH ×2 (20:39→21:36)
[2019-05-19] MEDS ORDERED: MORPHINE SULFATE 4 MG/ML SYRINGE IVP STA (20:44)
[2019-05-19] MEDS ORDERED: ESMOLOL IN SODIUM CHLORIDE PMX 2.5 GM in SALINE 1 250ML.BAG IV ONE (20:57)
[2019-05-19 21:16] LABS: Cocaine Screen,Urine Not Detected (NotDetected); Opiate Screen,Urine Not Detected (NotDetected); Phencyclidine Screen,Urine Not Detected (NotDetected); Urn Cannabinoid Scrn Detected (NotDetected)
[2019-05-19 21:17] LABS: Amphetamine Screen,Urine Detected (NotDetected); Barbiturate Screen,Urine Not Detected (NotDetected); Benzodiazepines Screen,Urine Not Detected (NotDetected); Methadone Screen, Urine Not Detected (NotDetected); Oxycodone Screen, Urine Not Detected (NotDetected); Tricyclic Antidepressant,Urine Not Detected (NotDetected)
[2019-05-19 23:55] VITALS: BP 75/40; PULSE 76; RESP 14
== END 2019-05-19 22:43 | disposition other institution (70) ==
LOC: EC 17:09
DX: I71.00 Dissection of unspecified site of aorta (principal); I50.9 Heart failure, unspecified; F41.9 Anxiety disorder, unspecified; F17.200 Nicotine dependence, unspecified, uncomplicated; Z79.01 Long term (current) use of anticoagulants; Z79.899 Other long term (current) drug therapy; Z88.0 Allergy status to penicillin; Z88.6 Allergy status to analgesic agent; Z88.8 Allergy status to other drugs, medicaments and biological substances; Z95.1 Presence of aortocoronary bypass graft; Z95.2 Presence of prosthetic heart valve; Z86.73 Personal history of transient ischemic attack (TIA), and cerebral infarction without residual deficits
CPT/HCPCS: 36415; 80053; 83690; 83735; 84484; 85025; 85610; 85730; 81001; 81025; 80306; 71045; 70450; 71275; 99291; 96365; 96367; 96366; 96375; 96376; 96361; J2270; J2310 ×2; J3475; Q9967

== ENCOUNTER 2019-05-29 14:28 | Emergency (ER) | payer OTHER ==
[2019-05-29 14:50] VITALS: RESP 18; TEMP 98
[2019-05-29] MEDS ORDERED: SODIUM CHLORIDE 0.9% 1,000 ML IV STA (15:15)
--- NOTE | 2019-05-29 15:40 | ED ---
Dizziness HPI - General Chief Complaint: Dizziness Stated Complaint: Dizziness Time Seen by Provider: 05/29/19 15:01 Source: patient Mode of arrival: EMS Limitations: no limitations - History of Present Illness Initial Comments: Patient is a 33-year-old female presenting to the emergency department with a chief complaint of dizziness. Patient was brought to the ED via EMS. Patient reports she initially felt dizzy because her blood pressure was low. Patient reports at this time she does not feel dizzy or lightheaded. Patient does any chest pain nausea vomiting or any headaches. Patient has no complaints at this time. Patient denies taking any medication prior to calling EMS. Patient is well-known to the ED. patient does report smoking marijuana 2 hours prior to ED arrival. Patient does complain of diarrhea for the past 2 days but no abdominal pain. - Related Data Home Medications Medication Instructions Recorded Confirmed Cholecalciferol [Vitamin D3 (25 5,000 unit PO DAILY 05/18/18 05/19/19 Mcg = 1000 Iu)] Metoprolol Tartrate 25 mg PO BID 06/04/18 05/19/19 DULoxetine HCL [Cymbalta] 60 mg PO BID 06/14/18 05/19/19 Ferrous Sulfate [Iron (65 MG 325 mg PO DAILY 06/14/18 05/19/19 Elemental)] Albuterol Inhaler [Ventolin Hfa 2 puff INHALATION RT-Q8H PRN 09/17/18 05/19/19 Inhaler] Warfarin [Coumadin] 5 mg PO DAILY 01/09/19 05/19/19 Cyanocobalamin/Cobamamide [Vitamin 1 tab SL DAILY 04/19/19 05/19/19 B-12 5,000 Mcg Tab Sl] OLANZapine [ZyPREXA] 15 mg PO HS 04/19/19 05/19/19 Melatonin 3 mg PO HS 05/19/19 05/19/19 Allergies Allergy/AdvReac Type Severity Reaction Status Date / Time chlordiazepoxide HCl Allergy Unknown Verified 05/19/19 17:28 [From Librium] Penicillins Allergy Rash/Hives Verified 05/19/19 17:28 prochlorperazine edisylate Allergy PANIC Verified 05/19/19 17:28 [From Compazine] ATTACK prochlorperazine maleate Allergy PANIC Verified 05/19/19 17:28 [From Compazine] ATTACK ketorolac [From Toradol] AdvReac Unknown Verified 05/19/19 17:28 Review of Systems ROS Statement: Those systems with pertinent positive or pertinent negative responses have been documented in the HPI. ROS Other: All systems not noted in ROS Statement are negative. Past Medical History Past Medical History: Heart Failure, CVA/TIA, Liver Disease, Neurologic Disorder, Osteoarthritis (OA), Pneumonia Additional Past Medical History / Comment(s): Stroke with residual right-sided weakness 2017, TIAs, marfan's syndrome, ArnoldChiari malformation, spontaneous pneumothorax x 21, scoliosis and pectus excavatum secondary to Marfan's, chronic back pain, bilateral leg pain, gastric ulcers, sinus infections, STATED HAS POOR CIRCULATION, viral meningitis, HEP C. 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 spleenectomy 2018, L upper lobectomy d/t pneumothoraxs. Past Anesthesia/Blood Transfusion Reactions: No Reported Reaction Past Psychological History: Anxiety Smoking Status: Current every day smoker Past Alcohol Use History: Occasional Past Drug Use History: Heroin, Marijuana - Past Family History Father Additional Family Medical History / Comment(s): Father is with history of AIDS. Mother Family Medical History: Diabetes Mellitus Additional Family Medical History / Comment(s): Mother at age 49 from liver cirrhosis secondary to alcohol abuse. Brother(s) Additional Family Medical History / Comment(s): Patient has one brother with no major medical problems. General Exam Limitations: no limitations General appearance: alert, in no apparent distress Head exam: Present: atraumatic, normocephalic, normal inspection Eye exam: Present: normal appearance ENT exam: Present: normal exam Neck exam: Present: normal inspection, full ROM Respiratory exam: Present: normal lung sounds bilaterally Cardiovascular Exam: Present: regular rate, normal rhythm, normal heart sounds Extremities exam: Present: normal inspection Back exam: Present: normal inspection, full ROM Neurological exam: Present: alert, oriented X3 Psychiatric exam: Present: normal affect, normal mood Skin exam: Present: warm, intact, normal color Course Vital Signs 05/29/19 05/29/19 14:45 15:51 Temperature 98.0 F Pulse Rate 90 70 Respiratory 18 18 Rate Blood Pressure 119/72 118/65 O2 Sat by Pulse 97 100 Oximetry Medical Decision Making - Medical Decision Making Patient is a 33-year-old female presenting to emergency Department with a chief complaint of dizziness. Patient called EMS because her blood pressure was low. Patient doesn't have any complaints on initial evaluation. Her vitals are stable. Blood pressure is 120/72. I suspect the transient episode of dizziness associated with low blood pressure was a result of fluid depletion from her diarrhea. Advised the patient to give IV fluids. Patient refused. Patient reports she feels good and wants to go home. Patient will sign out AMA. Strict return parameters were thoroughly discussed the patient was understanding and agreeable. Case discussed with physician. Disposition Clinical Impression: Dizziness Disposition: Left Against Medical Advice Condition: Stable Instructions (If sedation given, give patient instructions): Dizziness (ED) Additional Instructions: Please follow up with primary care. Please return to emergency department if symptoms worsen. Is patient prescribed a controlled substance at d/c from ED?: No Referrals: [facility] [Primary Care Provider] - 1-2 days Time of Disposition: 15:40
[2019-05-29 15:53] VITALS: BP 118/65; PULSE 70
== END 2019-05-29 15:51 | disposition left against medical advice (07) ==
LOC: EC 14:28
DX: R42 Dizziness and giddiness (principal); I95.9 Hypotension, unspecified; R19.7 Diarrhea, unspecified; I50.9 Heart failure, unspecified; M19.90 Unspecified osteoarthritis, unspecified site; F41.9 Anxiety disorder, unspecified; F17.200 Nicotine dependence, unspecified, uncomplicated; Z88.0 Allergy status to penicillin; Z88.6 Allergy status to analgesic agent; Z88.8 Allergy status to other drugs, medicaments and biological substances; Z79.01 Long term (current) use of anticoagulants; Z79.899 Other long term (current) drug therapy; Z86.14 Personal history of Methicillin resistant Staphylococcus aureus infection; Z86.73 Personal history of transient ischemic attack (TIA), and cerebral infarction without residual deficits; Z95.1 Presence of aortocoronary bypass graft; Z96.60 Presence of unspecified orthopedic joint implant; Z95.2 Presence of prosthetic heart valve; Z53.20 Procedure and treatment not carried out because of patient's decision for unspecified reasons
CPT/HCPCS: 99284

== ENCOUNTER 2019-06-10 16:32 | Emergency (ER) | payer OTHER ==
[2019-06-10 16:48] VITALS: TEMP 98.5
[2019-06-10] MEDS ORDERED: SODIUM CHLORIDE 0.9% 1,000 ML IV STA (17:01)
--- NOTE | 2019-06-10 17:09 | ED ---
General Adult HPI - General Chief complaint: Weakness Stated complaint: weakness Time Seen by Provider: 06/10/19 16:56 Source: patient, EMS Mode of arrival: EMS Limitations: no limitations - History of Present Illness Initial comments: Patient presents to the ED by ambulance for evaluation with her boyfriend at bedside. Patient states that she has had a cold, with symptoms of cough and congestion, for the past 4-5 days. Patient states that she has felt generally weak today, and she states that she has had rapid and pounding heart palpitations since this morning. Patient also admits to feeling somewhat dyspneic. Patient denies having any pain, trauma or injury, fever or chills, headache, focal numbness/weakness/neuro deficit, chest pain, neck/arm/jaw pain, back pain, hemoptysis, dizziness, syncope, nausea or vomiting, abdominal pain, diarrhea, bloody or melanotic stool, dysuria or urinary symptoms, leg or calf swelling or pain, or any other symptoms or complaints. Patient admits to using marijuana today, but she denies any other illicit drug use. Patient states that she was recently diagnosed with an inoperable aortic dissection, for which she was evaluated at [facility]. - Related Data Home Medications Medication Instructions Recorded Confirmed Cholecalciferol [Vitamin D3 (25 5,000 unit PO DAILY 05/18/18 06/10/19 Mcg = 1000 Iu)] Metoprolol Tartrate 25 mg PO BID 06/04/18 06/10/19 DULoxetine HCL [Cymbalta] 60 mg PO BID 06/14/18 06/10/19 Ferrous Sulfate [Iron (65 MG 325 mg PO DAILY 06/14/18 06/10/19 Elemental)] Albuterol Inhaler [Ventolin Hfa 2 puff INHALATION RT-Q8H PRN 09/17/18 06/10/19 Inhaler] Warfarin [Coumadin] 5 mg PO DAILY 01/09/19 06/10/19 Cyanocobalamin/Cobamamide [Vitamin 1 tab SL DAILY 04/19/19 06/10/19 B-12 5,000 Mcg Tab Sl] OLANZapine [ZyPREXA] 15 mg PO HS 04/19/19 06/10/19 Melatonin 3 mg PO HS 05/19/19 06/10/19 Gabapentin [Neurontin] 300 mg PO TID 06/10/19 06/10/19 Allergies Allergy/AdvReac Type Severity Reaction Status Date / Time chlordiazepoxide HCl Allergy Unknown Verified 06/10/19 17:33 [From Librium] Penicillins Allergy Rash/Hives Verified 06/10/19 17:33 prochlorperazine edisylate Allergy PANIC Verified 06/10/19 17:33 [From Compazine] ATTACK prochlorperazine maleate Allergy PANIC Verified 06/10/19 17:33 [From Compazine] ATTACK ketorolac [From Toradol] AdvReac Unknown Verified 06/10/19 17:33 Review of Systems ROS Statement: Those systems with pertinent positive or pertinent negative responses have been documented in the HPI. ROS Other: All systems not noted in ROS Statement are negative. Past Medical History Past Medical History: Heart Failure, CVA/TIA, Liver Disease, Neurologic Disorder, Osteoarthritis (OA), Pneumonia Additional Past Medical History / Comment(s): Stroke with residual right-sided weakness 2017, TIAs, marfan's syndrome, ArnoldChiari malformation, spontaneous pneumothorax x 21, scoliosis and pectus excavatum secondary to Marfan's, chronic back pain, bilateral leg pain, gastric ulcers, sinus infections, STATED HAS POOR CIRCULATION, viral meningitis, HEP C. 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 spleenectomy 2018, L upper lobectomy d/t pneumothoraxs. Past Anesthesia/Blood Transfusion Reactions: No Reported Reaction Past Psychological History: Anxiety Smoking Status: Current every day smoker Past Alcohol Use History: Occasional Past Drug Use History: Heroin, Marijuana - Past Family History Father Additional Family Medical History / Comment(s): Father is with history of AIDS. Mother Family Medical History: Diabetes Mellitus Additional Family Medical History / Comment(s): Mother at age 49 from liver cirrhosis secondary to alcohol abuse. Brother(s) Additional Family Medical History / Comment(s): Patient has one brother with no major medical problems. General Exam Limitations: no limitations General appearance: alert, in no apparent distress Head exam: Present: atraumatic, normocephalic Eye exam: Present: normal appearance, PERRL, EOMI ENT exam: Present: normal oropharynx, mucous membranes moist Neck exam: Present: other (Trachea is in midline). Absent: tenderness, men ingismus Respiratory exam: Present: normal lung sounds bilaterally. Absent: respiratory distress, wheezes, rales, rhonchi Cardiovascular Exam: Present: regular rate, normal rhythm, other (Loud S1 and S2; normal radial pulses bilaterally) GI/Abdominal exam: Present: soft. Absent: distended, tenderness, guarding Extremities exam: Present: other (Negative Lei's sign bilaterally). Absent: tenderness, pedal edema, calf tenderness Neurological exam: Present: alert, oriented X3, other (Residual right-sided weakness from a prior stroke) Psychiatric exam: Present: anxious Skin exam: Present: warm, dry, intact Course Vital Signs 06/10/19 06/10/19 16:43 20:19 Temperature 98.5 F Pulse Rate 93 86 Respiratory 16 18 Rate Blood Pressure 136/88 98/67 O2 Sat by Pulse 96 Oximetry - Reevaluation(s) Reevaluation #1: 06/10/19 21:10 Patient states that she wishes to go home at this time. Given her symptoms and CT findings, I have recommended that the patient be admitted to the hospital for further evaluation and observation, but she is refusing. Patient is A and O 4 and completely coherent at this time. I have clearly explained to the patient the risks of leaving AMA, including further morbidity and even in the worst case situation. Patient is able to verbalize understanding of these risks, and she still wishes to leave AMA at this time. Patient was instructed to return to the ED should she change her mind, or should she develop new or worsening symptoms. Patient was instructed to follow up closely with her PCP. Patient to sign AMA forms. Patient feels comfortable with this plan. EKG Findings - EKG Comments: EKG Findings:: Normal sinus rhythm, ventricular rate of 87 bpm, normal GA and QRS intervals, prolonged QTc interval of 507 ms, rightward axis, nonspecific ST abnormality, no significant change when compared to 05/29/19 EKG Medical Decision Making - Lab Data Result diagrams: 06/10/19 17:39 06/10/19 17:39 Lab Results 06/10/19 06/10/19 06/10/19 Range/Units 17:39 17:39 17:39 WBC 12.1 H (3.8-10.6) k/uL RBC 4.74 (3.80-5.40) m/uL Hgb 15.1 (11.4-16.0) gm/dL Hct 48.1 H (34.0-46.0) % MCV 101.5 H (80.0-100.0) fL MCH 31.8 (25.0-35.0) pg MCHC 31.3 (31.0-37.0) g/dL RDW 13.3 (11.5-15.5) % Plt Count 343 (150-450) k/uL Neutrophils % 78 % Lymphocytes % 12 % Monocytes % 5 % Eosinophils % 1 % Basophils % 2 % Neutrophils # 9.5 H (1.3-7.7) k/uL Lymphocytes # 1.5 (1.0-4.8) k/uL Monocytes # 0.6 (0-1.0) k/uL Eosinophils # 0.2 (0-0.7) k/uL Basophils # 0.2 (0-0.2) k/uL Macrocytosis Slight PT (9.0-12.0) sec INR (<1.2) APTT (22.0-30.0) sec Sodium 139 (137-145) mmol/L Potassium 4.6 (3.5-5.1) mmol/L Chloride 101 (98-107) mmol/L Carbon Dioxide 27 (22-30) mmol/L Anion Gap 11 mmol/L BUN 11 (7-17) mg/dL Creatinine 0.66 (0.52-1.04) mg/dL Est GFR (CKD-EPI)AfAm >90 (>60 ml/min/1.73 sqM) Est GFR (CKD-EPI)NonAf >90 (>60 ml/min/1.73 sqM) Glucose 101 H (74-99) mg/dL Plasma Lactic Acid Santino 1.0 (0.7-2.0) mmol/L Calcium 10.1 (8.4-10.2) mg/dL Magnesium 2.0 (1.6-2.3) mg/dL Total Bilirubin 0.9 (0.2-1.3) mg/dL AST 29 (14-36) U/L ALT 14 (9-52) U/L Alkaline Phosphatase 110 (38-126) U/L Troponin I (0.000-0.034) ng/mL NT-Pro-B Natriuret Pep pg/mL Total Protein 9.5 H (6.3-8.2) g/dL Albumin 5.1 H (3.5-5.0) g/dL HCG, Qual Not Detected Urine Opiates Screen (NotDetected) Ur Oxycodone Screen (NotDetected) Urine Methadone Screen (NotDetected) Ur Propoxyphene Screen (NotDetected) Ur Barbiturates Screen (NotDetected) U Tricyclic Antidepress (NotDetected) Ur Phencyclidine Scrn (NotDetected) Ur Amphetamines Screen (NotDetected) U Methamphetamines Scrn (NotDetected) U Benzodiazepines Scrn (NotDetected) Urine Cocaine Screen (NotDetected) U Marijuana (THC) Screen (NotDetected) Influenza Type A RNA (Not Detectd) Influenza Type B (PCR) (Not Detectd) 06/10/19 06/10/19 06/10/19 Range/Units 17:39 17:39 17:39 WBC (3.8-10.6) k/uL RBC (3.80-5.40) m/uL Hgb (11.4-16.0) gm/dL Hct (34.0-46.0) % MCV (80.0-100.0) fL MCH (25.0-35.0) pg MCHC (31.0-37.0) g/dL RDW (11.5-15.5) % Plt Count (150-450) k/uL Neutrophils % % Lymphocytes % % Monocytes % % Eosinophils % % Basophils % % Neutrophils # (1.3-7.7) k/uL Lymphocytes # (1.0-4.8) k/uL Monocytes # (0-1.0) k/uL Eosinophils # (0-0.7) k/uL Basophils # (0-0.2) k/uL Macrocytosis PT 15.3 H (9.0-12.0) sec INR 1.5 H (<1.2) APTT 37.5 H (22.0-30.0) sec Sodium (137-145) mmol/L Potassium (3.5-5.1) mmol/L Chloride (98-107) mmol/L Carbon Dioxide (22-30) mmol/L Anion Gap mmol/L BUN (7-17) mg/dL Creatinine (0.52-1.04) mg/dL Est GFR (CKD-EPI)AfAm (>60 ml/min/1.73 sqM) Est GFR (CKD-EPI)NonAf (>60 ml/min/1.73 sqM) Glucose (74-99) mg/dL Plasma Lactic Acid Santino (0.7-2.0) mmol/L Calcium (8.4-10.2) mg/dL Magnesium (1.6-2.3) mg/dL Total Bilirubin (0.2-1.3) mg/dL AST (14-36) U/L ALT (9-52) U/L Alkaline Phosphatase (38-126) U/L Troponin I <0.012 (0.000-0.034) ng/mL NT-Pro-B Natriuret Pep 1070 pg/mL Total Protein (6.3-8.2) g/dL Albumin (3.5-5.0) g/dL HCG, Qual Urine Opiates Screen (NotDetected) Ur Oxycodone Screen (NotDetected) Urine Methadone Screen (NotDetected) Ur Propoxyphene Screen (NotDetected) Ur Barbiturates Screen (NotDetected) U Tricyclic Antidepress (NotDetected) Ur Phencyclidine Scrn (NotDetected) Ur Amphetamines Screen (NotDetected) U Methamphetamines Scrn (NotDetected) U Benzodiazepines Scrn (NotDetected) Urine Cocaine Screen (NotDetected) U Marijuana (THC) Screen (NotDetected) Influenza Type A RNA (Not Detectd) Influenza Type B (PCR) (Not Detectd) 06/10/19 06/10/19 Range/Units 17:46 17:55 WBC (3.8-10.6) k/uL RBC (3.80-5.40) m/uL Hgb (11.4-16.0) gm/dL Hct (34.0-46.0) % MCV (80.0-100.0) fL MCH (25.0-35.0) pg MCHC (31.0-37.0) g/dL RDW (11.5-15.5) % Plt Count (150-450) k/uL Neutrophils % % Lymphocytes % % Monocytes % % Eosinophils % % Basophils % % Neutrophils # (1.3-7.7) k/uL Lymphocytes # (1.0-4.8) k/uL Monocytes # (0-1.0) k/uL Eosinophils # (0-0.7) k/uL Basophils # (0-0.2) k/uL Macrocytosis PT (9.0-12.0) sec INR (<1.2) APTT (22.0-30.0) sec Sodium (137-145) mmol/L Potassium (3.5-5.1) mmol/L Chloride (98-107) mmol/L Carbon Dioxide (22-30) mmol/L Anion Gap mmol/L BUN (7-17) mg/dL Creatinine (0.52-1.04) mg/dL Est GFR (CKD-EPI)AfAm (>60 ml/min/1.73 sqM) Est GFR (CKD-EPI)NonAf (>60 ml/min/1.73 sqM) Glucose (74-99) mg/dL Plasma Lactic Acid Santino (0.7-2.0) mmol/L Calcium (8.4-10.2) mg/dL Magnesium (1.6-2.3) mg/dL Total Bilirubin (0.2-1.3) mg/dL AST (14-36) U/L ALT (9-52) U/L Alkaline Phosphatase (38-126) U/L Troponin I (0.000-0.034) ng/mL NT-Pro-B Natriuret Pep pg/mL Total Protein (6.3-8.2) g/dL Albumin (3.5-5.0) g/dL HCG, Qual Urine Opiates Screen Not Detected (NotDetected) Ur Oxycodone Screen Not Detected (NotDetected) Urine Methadone Screen Not Detected (NotDetected) Ur Propoxyphene Screen Not Detected (NotDetected) Ur Barbiturates Screen Not Detected (NotDetected) U Tricyclic Antidepress Not Detected (NotDetected) Ur Phencyclidine Scrn Not Detected (NotDetected) Ur Amphetamines Screen Detected H (NotDetected) U Methamphetamines Scrn Detected H (NotDetected) U Benzodiazepines Scrn Not Detected (NotDetected) Urine Cocaine Screen Not Detected (NotDetected) U Marijuana (THC) Screen Detected H (NotDetected) Influenza Type A RNA Not Detected (Not Detectd) Influenza Type B (PCR) Not Detected (Not Detectd) - Radiology Data Radiology results: report reviewed (CT angiogram thorax/abdomen/pelvis shows a 4.2 cm aneurysm of the ascending aorta with limited anterior wall dissection extending to the great vessels and 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 Follow up closely with your primary care provider. Is patient prescribed a controlled substance at d/c from ED?: No Referrals: [facility] [Primary Care Provider] - 1-2 days Time of Disposition: 21:14 (AMA)
[2019-06-10 17:50] LABS: Basophils # (A) 0.2 k/uL (0-0.2); Basophils % (A) 2 %; Eosinophils # (A) 0.2 k/uL (0-0.7); Eosinophils % (A) 1 %; HCT 48.1 % (34.0-46.0); HGB 15.1 gm/dL (11.4-16.0); Lymphocytes # (A) 1.5 k/uL (1.0-4.8); Lymphocytes % (A) 12 %; MCH 31.8 pg (25.0-35.0); MCHC 31.3 g/dL (31.0-37.0); MCV 101.5 fL (80.0-100.0); Macrocytosis Slight; Mean Platelet Volume 7.4; Monocytes # (A) 0.6 k/uL (0-1.0); Monocytes % (A) 5 %; Neutrophils # (A) 9.5 k/uL (1.3-7.7); Neutrophils % (A) 78 %; Platelet Count 343 k/uL (150-450); RBC 4.74 m/uL (3.80-5.40); RDW 13.3 % (11.5-15.5); WBC 12.1 k/uL (3.8-10.6)
[2019-06-10 17:58] LABS: INR 1.5 (<1.2); Partial Thromboplastin Time 37.5 sec (22.0-30.0); Prothrombin Time 15.3 sec (9.0-12.0)
[2019-06-10 18:00] LABS: ALT 14 U/L (9-52); AST 29 U/L (14-36); African American GFR (CKD) >90 (>60 ml/min/1.73 sqM); Albumin 5.1 g/dL (3.5-5.0); Alkaline Phosphatase 110 U/L (38-126); Anion Gap 11 mmol/L; Blood Urea Nitrogen 11 mg/dL (7-17); Calcium 10.1 mg/dL (8.4-10.2); Carbon Dioxide 27 mmol/L (22-30); Chloride 101 mmol/L (98-107); Glucose 101 mg/dL (74-99); Potassium 4.6 mmol/L (3.5-5.1); Sodium 139 mmol/L (137-145); Total Bilirubin 0.9 mg/dL (0.2-1.3); Total Protein 9.5 g/dL (6.3-8.2)
[2019-06-10 18:05] LABS: Cocaine Screen,Urine Not Detected (NotDetected); Phencyclidine Screen,Urine Not Detected (NotDetected); Urn Cannabinoid Scrn Detected (NotDetected)
[2019-06-10 18:06] LABS: Amphetamine Screen,Urine Detected (NotDetected); Barbiturate Screen,Urine Not Detected (NotDetected); Benzodiazepines Screen,Urine Not Detected (NotDetected); Methadone Screen, Urine Not Detected (NotDetected); Opiate Screen,Urine Not Detected (NotDetected); Oxycodone Screen, Urine Not Detected (NotDetected); Tricyclic Antidepressant,Urine Not Detected (NotDetected)
[2019-06-10 18:57] LABS: HCG,Qualitative Serum Not Detected
--- NOTE | 2019-06-10 19:10 | CT ---
EXAMINATION TYPE: CT angio thor/abd pel aorta DATE OF EXAM: 06/10/2019 COMPARISON: 08/30/2013 and 08/30/2013 HISTORY: Dyspnea, palpitations, h/o aortic dissection. CT DLP: 932.7 mGycm. Automated Exposure Control for Dose Reduction was Utilized. CONTRAST: CT scan of the thorax, abdomen and pelvis is performed without and with IV Contrast, patient injected with 100ml mL of Isovue 370. There are 3-D post processed images. FINDINGS: There is 4.2 cm aneurysm of the ascending aorta. There is a limited dissection of the ascending aorta on the anterior aspect that extends to the origin of the great vessels. This appears not significant ly different than CT scan of 05/19/2019. There is normal contrast opacification of the pulmonary arter ies. I see no filling defect. Heart is enlarged. There is aortic valve surgery. There is no pericardi al effusion. The lungs are clear of consolidation. There is mild pulmonary emphysema. There is no ple ural effusion. 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 There is patency of the celiac artery and superior mesenteric artery. There is bilateral patency of t he renal arteries and the iliac and femoral arteries. There is no evidence of hemodynamic stenosis. Bladder distends smoothly. There is lower lumbar spine and sacral spine meningocele. There is thoraci c and lumbar kyphotic and scoliotic deformity. There is no evidence of abdominal aortic dissection. T here is no abdominal aortic aneurysm. There is normal contrast opacification of the liver. Spleen is absent. There is no evidence of pancre atic mass. Stomach appears normal. Kidneys show satisfactory contrast opacification. There is no hydronephrosis. There is some cortical thinning anterior right kidney. There is no ascites. There is no sign of free air. There is no sign of a bowel obstruction. There is no inguinal hernia. I see no focal bone destruction. IMPRESSION: There is 4.2 cm aneurysm of ascending aorta with limited dissection of the anterior aspect anterior w all extending to the great vessels unchanged compared to 05/19/2019 CT scan. No evidence of pulmonary embolism. No evidence of hemodynamic stenosis. There is aneurysm of the origin of the left coronary a rtery unchanged.
[2019-06-10 20:20] VITALS: BP 98/67; PULSE 86; RESP 18
== END 2019-06-10 21:24 | disposition left against medical advice (07) ==
LOC: EC 16:32
DX: F19.10 Other psychoactive substance abuse, uncomplicated (principal); R53.1 Weakness; R00.2 Palpitations; R05 Cough; R09.81 Nasal congestion; F41.9 Anxiety disorder, unspecified; F17.200 Nicotine dependence, unspecified, uncomplicated; I50.9 Heart failure, unspecified; M19.90 Unspecified osteoarthritis, unspecified site; G89.29 Other chronic pain; M54.9 Dorsalgia, unspecified; B19.20 Unspecified viral hepatitis C without hepatic coma; Z88.0 Allergy status to penicillin; Z88.8 Allergy status to other drugs, medicaments and biological substances; Z88.6 Allergy status to analgesic agent; Z79.01 Long term (current) use of anticoagulants; Z79.899 Other long term (current) drug therapy; Z95.1 Presence of aortocoronary bypass graft; Z95.2 Presence of prosthetic heart valve; Z86.19 Personal history of other infectious and parasitic diseases; Z87.19 Personal history of other diseases of the digestive system; Z86.14 Personal history of Methicillin resistant Staphylococcus aureus infection; Z86.73 Personal history of transient ischemic attack (TIA), and cerebral infarction without residual deficits
CPT/HCPCS: 36415; 93005; 83880; 80053; 83605; 83735; 84484; 85025; 85610; 85730; 84703; 80306; 87502; 71275; 74174; 99285; 96360; Q9967

== ENCOUNTER 2019-06-16 01:46 | Observation (INO) | payer OTHER ==
--- NOTE | 2019-06-16 02:05 | ED ---
General Adult HPI - General Chief complaint: Chest Pain Stated complaint: Chest pain Time Seen by Provider: 06/16/19 01:47 Source: patient, EMS Mode of arrival: EMS - History of Present Illness Initial comments: Dictation was produced using [employer] dictation software. please excuse any grammatical, word or spelling errors. Chief Complaint: 33-year-old female with multiple comorbid conditions presents with chest pain shortness of breath. History of Present Illness: 33-year-old female she has multiple comorbid conditions. She has history of heart failure, Marfan's disease, chronic aortic dissection, liver disease, stroke. She presents today with chest pain shortness of breath upon waking early this morning. She does familiar to me as I saw her on one of her previous admissions. She was diagnosed with an acute aortic dissection. She was transferred to [facility] at that time. She states that she was there and was given blood pressure pills. They told her definitive treatment would require surgery however she was told that she is not a candidate for surgery. She is on blood pressure medications. Patient also on anticoag ulation medications. She is well-known to the emergency department for multiple visitations for myriad of complaints. She reports that one of her goals of, to the emergency department was find answers for her symptoms. Patient states that her pain is sharp to the right anterior chest. She denies any exacerbating or mitigating factors. Has any radiation to the extremities or jaw. Associated n ausea or diaphoresis. The ROS documented in this emergency department record has been reviewed and confirmed by me. Those systems with pertinent positive or negative responses have been documented in the HPI. All other systems are other negative and/or noncontributory. PHYSICAL EXAM: General Impression: Alert and oriented x3, not in acute distress, cachectic HEENT: Normocephalic atraumatic, extra-ocular movements intact, pupils equal and reactive to light bilaterally, mucous membranes moist. Cardiovascular: Heart regular rate and rhythm, S1&S2 audible, no murmurs, rubs or gallops Chest: Lungs clear to auscultation bilaterally, no rhonchi, no wheeze, no rales Abdomen: Bowel sounds present, abdomen soft, non-tender, non-distended, no organomegaly Musculoskeletal: Pulses present and equal in all extremities, no peripheral edema Motor: no focal deficits noted Neurological: CN II-XII grossly intact, no focal motor or sensory deficits noted Skin: Intact with no visualized rashes Psych: Normal affect and mood ED course: 33-year-old female with multiple seizures comorbidities presents today with chest pain and shortness of breath. She is brought in by EMS for chest pain or shortness of breath. Patient states she's been having symptoms since we can this morning at approximately 9 AM. Laboratory evaluation obtained. CBC unremarkable. Coag panel shows supratherapeutic INR with the level of 5.9. Patient not having any leading symptoms at this time. We will withhold Coumadin. Metabolic panel is unremarkable. Initial troponin is negative. Patient was observed in the em ergency department. Patient has any pain complaints at this time. Her pain is atypical with typical features. She is multiple comorbidities and has multiple reasons to have chest pain. Her clinical presentation is not consistent with worsening aortic dissection. Patient is on Coumadin there is no clinical suspicion of pulmonary embolus at this time. X-ray was obtained showing no acute processes. A troponin was performed 3 hours later elevated 0.04. There is concern of non-ST segment elevation NC. Patient given aspirin. Patient will be admitted with cardiology on consultation. At this point there is no alternate reason for patient's troponin elevation. Patient is not having any infectious symptoms. Patient's medications were reviewed. EKG interpretation: Ventricular rate 84, normal sinus rhythm, CA interval 170, QS 116, QTC 475. No CA prolongation, no QTC prolongation, no ST or T-wave changes noted. EKG compared to 06/10/2019 showing no changes. Overall, this EKG is unremarkable - Related Data Home Medications Medication Instructions Recorded Confirmed Cholecalciferol [Vitamin D3 (25 5,000 unit PO DAILY 05/18/18 06/10/19 Mcg = 1000 Iu)] Metoprolol Tartrate 25 mg PO BID 06/04/18 06/10/19 DULoxetine HCL [Cymbalta] 60 mg PO BID 06/14/18 06/10/19 Ferrous Sulfate [Iron (65 MG 325 mg PO DAILY 06/14/18 06/10/19 Elemental)] Albuterol Inhaler [Ventolin Hfa 2 puff INHALATION RT-Q8H PRN 09/17/18 06/10/19 Inhaler] Warfarin [Coumadin] 5 mg PO DAILY 01/09/19 06/10/19 Cyanocobalamin/Cobamamide [Vitamin 1 tab SL DAILY 04/19/19 06/10/19 B-12 5,000 Mcg Tab Sl] OLANZapine [ZyPREXA] 15 mg PO HS 04/19/19 06/10/19 Melatonin 3 mg PO HS 05/19/19 06/10/19 Gabapentin [Neurontin] 300 mg PO TID 06/10/19 06/10/19 Allergies Allergy/AdvReac Type Severity Reaction Status Date / Time chlordiazepoxide HCl Allergy Unknown Verified 06/10/19 17:33 [From Librium] Penicillins Allergy Rash/Hives Verified 06/10/19 17:33 prochlorperazine edisylate Allergy PANIC Verified 06/10/19 17:33 [From Compazine] ATTACK prochlorperazine maleate Allergy PANIC Verified 06/10/19 17:33 [From Compazine] ATTACK ketorolac [From Toradol] AdvReac Unknown Verified 06/10/19 17:33 Review of Systems ROS Statement: Those systems with pertinent positive or pertinent negative responses have been documented in the HPI. ROS Other: All systems not noted in ROS Statement are negative. Past Medical History Past Medical History: Heart Failure, CVA/TIA, Liver Disease, Neurologic Disorder, Osteoarthritis (OA), Pneumonia Additional Past Medical History / Comment(s): Stroke with residual right-sided weakness 2017, TIAs, marfan's syndrome, ArnoldChiari malformation, spontaneous pneumothorax x 21, scoliosis and pectus excavatum secondary to Marfan's, chronic back pain, bilateral leg pain, gastric ulcers, sinus infections, STATED HAS POOR CIRCULATION, viral meningitis, HEP C. 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 spleenectomy 2018, L upper lobectomy d/t pneumothoraxs. Past Anesthesia/Blood Transfusion Reactions: No Reported Reaction Past Psychological History: Anxiety Smoking Status: Current every day smoker Past Alcohol Use History: Occasional Past Drug Use History: Heroin, Marijuana - Past Family History Father Additional Family Medical History / Comment(s): Father is with history of AIDS. Mother Family Medical History: Diabetes Mellitus Additional Family Medical History / Comment(s): Mother at age 49 from liver cirrhosis secondary to alcohol abuse. Brother(s) Additional Family Medical History / Comment(s): Patient has one brother with no major medical problems. Course Vital Signs 06/16/19 06/16/19 06/16/19 01:48 03:05 05:29 Temperature 98.1 F Pulse Rate 61 81 77 Respiratory 16 16 16 Rate Blood Pressure 136/79 100/62 94/67 O2 Sat by Pulse 97 95 97 Oximetry Medical Decision Making - Lab Data Result diagrams: 06/16/19 02:00 06/16/19 02:00 Lab Results 06/16/19 06/16/19 06/16/19 Range/Units 02:00 02:00 02:00 WBC 8.5 (3.8-10.6) k/uL RBC 4.52 (3.80-5.40) m/uL Hgb 14.3 (11.4-16.0) gm/dL Hct 45.9 (34.0-46.0) % MCV 101.6 H (80.0-100.0) fL MCH 31.7 (25.0-35.0) pg MCHC 31.2 (31.0-37.0) g/dL RDW 13.9 (11.5-15.5) % Plt Count 285 (150-450) k/uL Neutrophils % 43 % Lymphocytes % 37 % Monocytes % 7 % Eosinophils % 8 % Basophils % 1 % Neutrophils # 3.6 (1.3-7.7) k/uL Lymphocytes # 3.2 (1.0-4.8) k/uL Monocytes # 0.6 (0-1.0) k/uL Eosinophils # 0.6 (0-0.7) k/uL Basophils # 0.1 (0-0.2) k/uL Macrocytosis Slight PT 57.1 H (9.0-12.0) sec INR 5.9 H* (<1.2) APTT 46.6 H (22.0-30.0) sec Sodium 139 (137-145) mmol/L Potassium 4.2 (3.5-5.1) mmol/L Chloride 104 (98-107) mmol/L Carbon Dioxide 27 (22-30) mmol/L Anion Gap 8 mmol/L BUN 9 (7-17) mg/dL Creatinine 0.67 (0.52-1.04) mg/dL Est GFR (CKD-EPI)AfAm >90 (>60 ml/min/1.73 sqM) Est GFR (CKD-EPI)NonAf >90 (>60 ml/min/1.73 sqM) Glucose 91 (74-99) mg/dL Calcium 9.1 (8.4-10.2) mg/dL Magnesium 2.0 (1.6-2.3) mg/dL Total Bilirubin 0.3 (0.2-1.3) mg/dL AST 25 (14-36) U/L ALT 19 (9-52) U/L Alkaline Phosphatase 75 (38-126) U/L Troponin I (0.000-0.034) ng/mL Total Protein 7.5 (6.3-8.2) g/dL Albumin 3.9 (3.5-5.0) g/dL Lipase 20 L (23-300) U/L 06/16/19 06/16/19 Range/Units 02:00 05:20 WBC (3.8-10.6) k/uL RBC (3.80-5.40) m/uL Hgb (11.4-16.0) gm/dL Hct (34.0-46.0) % MCV (80.0-100.0) fL MCH (25.0-35.0) pg MCHC (31.0-37.0) g/dL RDW (11.5-15.5) % Plt Count (150-450) k/uL Neutrophils % % Lymphocytes % % Monocytes % % Eosinophils % % Basophils % % Neutrophils # (1.3-7.7) k/uL Lymphocytes # (1.0-4.8) k/uL Monocytes # (0-1.0) k/uL Eosinophils # (0-0.7) k/uL Basophils # (0-0.2) k/uL Macrocytosis PT (9.0-12.0) sec INR (<1.2) APTT (22.0-30.0) sec Sodium (137-145) mmol/L Potassium (3.5-5.1) mmol/L Chloride (98-107) mmol/L Carbon Dioxide (22-30) mmol/L Anion Gap mmol/L BUN (7-17) mg/dL Creatinine (0.52-1.04) mg/dL Est GFR (CKD-EPI)AfAm (>60 ml/min/1.73 sqM) Est GFR (CKD-EPI)NonAf (>60 ml/min/1.73 sqM) Glucose (74-99) mg/dL Calcium (8.4-10.2) mg/dL Magnesium (1.6-2.3) mg/dL Total Bilirubin (0.2-1.3) mg/dL AST (14-36) U/L ALT (9-52) U/L Alkaline Phosphatase (38-126) U/L Troponin I <0.012 0.040 H* (0.000-0.034) ng/mL Total Protein (6.3-8.2) g/dL Albumin (3.5-5.0) g/dL Lipase (23-300) U/L Disposition Clinical Impression: NSTEMI (non-ST elevated myocardial infarction) Disposition: ADMITTED IP TO THIS HOSP Condition: Fair Referrals: [facility] [Primary Care Provider] - 1-2 days Decision Time: 06:05
[2019-06-16 02:22] LABS: Basophils # (A) 0.1 k/uL (0-0.2); Basophils % (A) 1 %; Eosinophils # (A) 0.6 k/uL (0-0.7); Eosinophils % (A) 8 %; HCT 45.9 % (34.0-46.0); HGB 14.3 gm/dL (11.4-16.0); Lymphocytes # (A) 3.2 k/uL (1.0-4.8); Lymphocytes % (A) 37 %; MCH 31.7 pg (25.0-35.0); MCHC 31.2 g/dL (31.0-37.0); MCV 101.6 fL (80.0-100.0); Macrocytosis Slight; Mean Platelet Volume 7.3; Monocytes # (A) 0.6 k/uL (0-1.0); Monocytes % (A) 7 %; Neutrophils # (A) 3.6 k/uL (1.3-7.7); Neutrophils % (A) 43 %; Platelet Count 285 k/uL (150-450); RBC 4.52 m/uL (3.80-5.40); RDW 13.9 % (11.5-15.5); WBC 8.5 k/uL (3.8-10.6)
--- NOTE | 2019-06-16 02:22 | XR ---
EXAMINATION TYPE: XR chest 2V DATE OF EXAM: 06/16/2019 COMPARISON: 05/19/2019 HISTORY: Cough TECHNIQUE: Frontal and lateral views of the chest are obtained. FINDINGS: There is no heart failure nor confluent pneumonic infiltrate. There is thoracolumbar kypho tic deformity. There is no definite pleural effusion. There are chest leads. There are no hilar frances s. IMPRESSION: No active cardiopulmonary disease. There is clearing of mild pulmonary interstitial shane a compared to old exam.
[2019-06-16 02:30] LABS: ALT 19 U/L (9-52); AST 25 U/L (14-36); African American GFR (CKD) >90 (>60 ml/min/1.73 sqM); Albumin 3.9 g/dL (3.5-5.0); Alkaline Phosphatase 75 U/L (38-126); Anion Gap 8 mmol/L; Blood Urea Nitrogen 9 mg/dL (7-17); Calcium 9.1 mg/dL (8.4-10.2); Carbon Dioxide 27 mmol/L (22-30); Chloride 104 mmol/L (98-107); Glucose 91 mg/dL (74-99); Potassium 4.2 mmol/L (3.5-5.1); Sodium 139 mmol/L (137-145); Total Bilirubin 0.3 mg/dL (0.2-1.3); Total Protein 7.5 g/dL (6.3-8.2)
[2019-06-16 02:33] LABS: Partial Thromboplastin Time 46.6 sec (22.0-30.0); Prothrombin Time 57.1 sec (9.0-12.0)
[2019-06-16 02:41] LABS: INR 5.9 (<1.2)
[2019-06-16] MEDS ORDERED: NITROGLYCERIN SL TABS 0.4 MG TAB SUBLINGUAL PRN (06:01)
[2019-06-16] MEDS: ASPIRIN 81 MG PO STA ×2 (06:52→06:53)
--- NOTE | 2019-06-16 11:21 | P.CRDCN ---
History of Present Illness Consult date: 06/16/19 Chief complaint: Chest pain History of present illness: This is a pleasant and unfortunate 33-year-old female patient with a past medical history significant for Marfan syndrome, chronic aortic dissection, aortic valve replacement in using mechanical valve, currently the patient is on Coumadin, chronic diastolic congestive heart failure, as well as multiple comorbid conditions including history of hepatitis C and history of drug abuse as well as his smoking, presented to the hospital again with a chest discomfort. Recently she was seen in the hospital with a chest discomfort and at that point she underwent a computed tomography scan of the chest which revealed dissection involving the ascending aorta and extending into the great arteries. Subsequently the patient was transferred to [facility] but she ended not having any surgery where she was treated medically. This time she presented to the emergency room again with a chest discomfort. The patient somewhat is a poor historian. She described the discomfort as sharp, in the mid of the chest, without any radiation to the arm or neck or shoulders, and without any change with respiration. No associated symptoms of shortness of breath, sweating, dizziness, heart racing, or syncope. The EKG shows sinus rhythm with ST changes in the anteroseptal leads somewhat similar to what she had before. The cardiac enzymes were checked. The first set troponin came in to be normal and the second one came in to be slightly abnormal and we don't have any third set of tr oponin at this point. We are in process of obtaining a third set of troponin. Currently the patient is experiencing mild chest discomfort. The last echocardiogram from 2018 revealed normal LV function with normally functioning mechanical aortic valve and evidence of severe mitral regurgitation. The chest x-ray this time came in to be unremarkable. Past Medical History Past Medical History: Heart Failure, CVA/TIA, Liver Disease, Neurologic Disorder, Osteoarthritis (OA), Pneumonia Additional Past Medical History / Comment(s): Stroke with residual right-sided weakness 2017, TIAs, marfan's syndrome, ArnoldChiari malformation, spontaneous pneumothorax x 21, scoliosis and pectus excavatum secondary to Marfan's, chronic back pain, bilateral leg pain, gastric ulcers, sinus infections, STATED HAS POOR CIRCULATION, viral meningitis, HEP C. 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 spleenectomy 2018, L upper lobectomy d/t pneumothoraxs. Past Anesthesia/Blood Transfusion Reactions: No Reported Reaction Past Psychological History: Anxiety Smoking Status: Current every day smoker Past Alcohol Use History: Occasional Past Drug Use History: Heroin, Marijuana - Past Family History Father Additional Family Medical History / Comment(s): Father is with history of AIDS. Mother Family Medical History: Diabetes Mellitus Additional Family Medical History / Comment(s): Mother at age 49 from liver cirrhosis secondary to alcohol abuse. Brother(s) Additional Family Medical History / Comment(s): Patient has one brother with no major medical problems. Medications and Allergies Home Medications Medication Instructions Recorded Confirmed Type Cholecalciferol [Vitamin D3 (25 5,000 unit PO DAILY 05/18/18 06/16/19 History Mcg = 1000 Iu)] Metoprolol Tartrate 25 mg PO BID 06/04/18 06/16/19 History DULoxetine HCL [Cymbalta] 60 mg PO BID 06/14/18 06/16/19 History Ferrous Sulfate [Iron (65 MG 325 mg PO DAILY 06/14/18 06/16/19 History Elemental)] Albuterol Inhaler [Ventolin Hfa 2 puff INHALATION RT-Q8H PRN 09/17/18 06/16/19 History Inhaler] Warfarin [Coumadin] 5 mg PO DAILY 01/09/19 06/16/19 History Cyanocobalamin/Cobamamide [Vitamin 1 tab SL DAILY 04/19/19 06/16/19 History B-12 5,000 Mcg Tab Sl] OLANZapine [ZyPREXA] 15 mg PO HS 04/19/19 06/16/19 History Melatonin 3 mg PO HS 05/19/19 06/16/19 History Gabapentin [Neurontin] 300 mg PO TID 06/10/19 06/16/19 History Allergies Allergy/AdvReac Type Severity Reaction Status Date / Time chlordiazepoxide HCl Allergy Unknown Verified 06/16/19 07:03 [From Librium] Penicillins Allergy Rash/Hives Verified 06/16/19 07:03 prochlorperazine edisylate Allergy PANIC Verified 06/16/19 07:03 [From Compazine] ATTACK prochlorperazine maleate Allergy PANIC Verified 06/16/19 07:03 [From Compazine] ATTACK ketorolac [From Toradol] AdvReac Unknown Verified 06/16/19 07:03 Physical Exam Vitals: Vital Signs Temp Pulse Pulse Resp BP BP Pulse Ox 06/16/19 08:00 79 18 06/16/19 07:55 97.7 F 79 18 98/54 95 06/16/19 06:55 79 16 120/63 96 06/16/19 05:29 77 16 94/67 97 06/16/19 03:05 81 16 100/62 95 06/16/19 01:48 98.1 F 61 16 136/79 97 Intake and Output 06/15/19 06/16/19 06/16/19 22:59 06:59 14:59 Other: Weight 51.71 kg - Constitutional General appearance: mild distress - Respiratory Respiratory: bilateral: diminished - Cardiovascular Rhythm: regular Heart sounds: normal: S1 Results 06/16/19 02:00 06/16/19 02:00 Cardiac Enzymes 06/16/19 06/16/19 06/16/19 Range/Units 02:00 02:00 05:20 AST 25 (14-36) U/L Troponin I <0.012 0.040 H* (0.000-0.034) ng/mL Coagulation 06/16/19 Range/Units 02:00 PT 57.1 H (9.0-12.0) sec APTT 46.6 H (22.0-30.0) sec CBC 06/16/19 Range/Units 02:00 WBC 8.5 (3.8-10.6) k/uL RBC 4.52 (3.80-5.40) m/uL Hgb 14.3 (11.4-16.0) gm/dL Hct 45.9 (34.0-46.0) % Plt Count 285 (150-450) k/uL Comprehensive Metabolic Panel 06/16/19 Range/Units 02:00 Sodium 139 (137-145) mmol/L Potassium 4.2 (3.5-5.1) mmol/L Chloride 104 (98-107) mmol/L Carbon Dioxide 27 (22-30) mmol/L BUN 9 (7-17) mg/dL Creatinine 0.67 (0.52-1.04) mg/dL Glucose 91 (74-99) mg/dL Calcium 9.1 (8.4-10.2) mg/dL AST 25 (14-36) U/L ALT 19 (9-52) U/L Alkaline Phosphatase 75 (38-126) U/L Total Protein 7.5 (6.3-8.2) g/dL Albumin 3.9 (3.5-5.0) g/dL Current Medications Generic Name Dose Route Start Last Admin Trade Name Freq PRN Reason Stop Dose Admin Aspirin 325 mg 06/17/19 09:00 Aspirin PO DAILY DARION Fentanyl 1 patch 06/16/19 11:00 Duragesic 12mcg/Hr Patch TRANSDERM Q72H DARION Nitroglycerin 0.4 mg 06/16/19 06:01 Nitrostat SUBLINGUAL Q5M PRN Chest Pain Intake and Output 06/15/19 06/16/19 06/16/19 22:59 06:59 14:59 Other: Weight 51.71 kg 06/16/19 02:00 06/16/19 02:00 Assessment and Plan Assessment: Assessment #1 chest discomfort probably related to aortic dissection #2 known chronic aortic dissection involving the ascending aorta #3 status post aortic valve replacement using mechanical valve #4 Marfan syndrome #5 multiple comorbid conditions including drug abuse #6 history of smoking Plan #1 rule out acute coronary event. Will follow-up with the serial cardiac enzymes #2 the chest discomfort is likely secondary to the chronic aortic dissection #3 aggressive blood pressure control #4 repeat the echocardiogram #5 continue oral anticoagulation was Coumadin #6 follow-up with the patient Thank you for allowing us participate in her care
[2019-06-16] MEDS ORDERED: ALBUTEROL NEBULIZED 2.5 MG/3 ML INHALATION PRN (12:39)
[2019-06-16] MEDS: CYANOCOBALAMIN 500 MCG TAB PO SCH (13:43)
[2019-06-16] MEDS: CHOLECALCIFEROL 1,000 UNIT TAB PO SCH (13:43)
[2019-06-16] MEDS: METOPROLOL TARTRATE 25 MG TAB PO SCH ×2 (13:43→21:21)
[2019-06-16] MEDS: GABAPENTIN 300 MG CAP PO SCH ×2 (15:09→21:21)
[2019-06-16 15:57] VITALS: BMI 14.1
[2019-06-16] MEDS ORDERED: OLANZapine 5 MG TAB PO SCH (21:00)
[2019-06-16] MEDS ORDERED: MELATONIN 3 MG TABLET PO SCH (21:00)
[2019-06-16] MEDS: DULoxetine HCL 60 MG CAPSULE.DR PO SCH (21:21)
--- NOTE | 2019-06-16 21:42 | P.HPIM ---
History of Present Illness H&P Date: 06/16/19 Chief Complaint: Chest pain Patient is a 33-year-old female with a known history of Marfan syndrome, ArnoldChiari malformation, chronic aortic dissection and history of aortic valve replacement with mechanical valve in currently on Coumadin for anticoagulation, chronic diastolic CHF, chronic back pain, peripheral vascular disease, coronary artery bypass graft 4 with a, anxiety and heroin and/marijuana use came to ER with the complaints of chest pain and shortness of breath upon waking up early in the morning. During previous admission patient was transferred to [facility] due to aortic dissection. Apparently patient was not a candidate for surgery. Patient presents to ER with complaints of chest pain. Which is sharp in the middle of the chest without any radiation. Patient does have some associated shortness of breath. No nausea vomiting or diaphoresis. No headache or dizziness or lightheadedness. Patient denied any complaints of fever. No chills. No cough or sputum production. Denied any recent illnesses. Patient follows with Dr. Calles as an outpatient EKG showed normal sinus rhythm Chest x-ray showed no acute process. There is clearing of pulmonary edema compared to last exam. Troponin 0.012, 0.040 and 0.028 INR 5.9 Patient is somewhat poor historian. Review of Systems Constitutional: Patient denies any fever or chills . No generalized weakness or weight loss. Abdomen: Patient denied nausea vomiting and diarrhea and abdominal pain. Cardiovascular: Patient denies any chest pain or short of breath no palpitations. Respiratory: patient denied any cough is from production. No shortness of breath Neurologic: Patient denied any numbness or tingling headache. Musculoskeletal: Patient denies any complaints of joint swelling or deformity. Skin: Negative Psychiatric: Negative Endocrine: No heat or cold intolerance. No recent weight gain. Genitourinary: No dysuria or hematuria. All other 14 point ROS negative except the above Past Medical History Past Medical History: Heart Failure, CVA/TIA, Liver Disease, Neurologic Disorder, Osteoarthritis (OA), Pneumonia Additional Past Medical History / Comment(s): Stroke with residual right-sided weakness 2017, TIAs, marfan's syndrome, ArnoldChiari malformation, spontaneous pneumothorax x 21, scoliosis and pectus excavatum secondary to Marfan's, chronic back pain, bilateral leg pain, gastric ulcers, sinus infections, STATED HAS POOR CIRCULATION, viral meningitis, HEP C. 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 spleenectomy 2018, L upper lobectomy d/t pneumothoraxs. Past Anesthesia/Blood Transfusion Reactions: No Reported Reaction Past Psychological History: Anxiety Smoking Status: Current every day smoker Past Alcohol Use History: Occasional Past Drug Use History: Heroin, Marijuana - Past Family History Father Additional Family Medical History / Comment(s): Father is with history of AIDS. Mother Family Medical History: Diabetes Mellitus Additional Family Medical History / Comment(s): Mother at age 49 from liver cirrhosis secondary to alcohol abuse. Brother(s) Additional Family Medical History / Comment(s): Patient has one brother with no major medical problems. Medications and Allergies Home Medications Medication Instructions Recorded Confirmed Type Cholecalciferol [Vitamin D3 (25 5,000 unit PO DAILY 05/18/18 06/16/19 History Mcg = 1000 Iu)] Metoprolol Tartrate 25 mg PO BID 06/04/18 06/16/19 History DULoxetine HCL [Cymbalta] 60 mg PO BID 06/14/18 06/16/19 History Ferrous Sulfate [Iron (65 MG 325 mg PO DAILY 06/14/18 06/16/19 History Elemental)] Albuterol Inhaler [Ventolin Hfa 2 puff INHALATION RT-Q8H PRN 09/17/18 06/16/19 History Inhaler] Warfarin [Coumadin] 5 mg PO DAILY 01/09/19 06/16/19 History Cyanocobalamin/Cobamamide [Vitamin 1 tab SL DAILY 04/19/19 06/16/19 History B-12 5,000 Mcg Tab Sl] OLANZapine [ZyPREXA] 15 mg PO HS 04/19/19 06/16/19 History Melatonin 3 mg PO HS 05/19/19 06/16/19 History Gabapentin [Neurontin] 300 mg PO TID 06/10/19 06/16/19 History Allergies Allergy/AdvReac Type Severity Reaction Status Date / Time chlordiazepoxide HCl Allergy Unknown Verified 06/16/19 07:03 [From Librium] Penicillins Allergy Rash/Hives Verified 06/16/19 07:03 prochlorperazine edisylate Allergy PANIC Verified 06/16/19 07:03 [From Compazine] ATTACK prochlorperazine maleate Allergy PANIC Verified 06/16/19 07:03 [From Compazine] ATTACK ketorolac [From Toradol] AdvReac Unknown Verified 06/16/19 07:03 Physical Exam Vitals: Vital Signs Temp Pulse Pulse Resp BP BP Pulse Ox 06/16/19 08:00 79 18 06/16/19 07:55 97.7 F 79 18 98/54 95 06/16/19 06:55 79 16 120/63 96 06/16/19 05:29 77 16 94/67 97 06/16/19 03:05 81 16 100/62 95 06/16/19 01:48 98.1 F 61 16 136/79 97 Intake and Output 06/15/19 06/16/19 06/16/19 22:59 06:59 14:59 Other: Weight 51.71 kg PHYSICAL EXAMINATION: Patient is lying in the bed comfortably, no acute distress, awake alert and oriented. Lethargic. HEENT: Normocephalic. Neck is supple. Pupils reactive. Nostrils clear. Oral cavity is moist. Ears reveal no drainage. Neck reveals no JVD, carotid bruits, or thyromegaly. CHEST EXAMINATION: Trachea is central. Symmetrical expansion. Bibasilar diminished air entry Lung lay clear to auscultation and percussion. CARDIAC: Normal S1, S2 with no gallops. No murmurs . Mechanical valve present. ABDOMEN: Soft. Bowel sounds normal. No organomegaly. No abdominal bruits. Extremities: reveal no edema. No clubbing or cyanosis Neurologically awake, alert, oriented x3 with well-coordinated movements. No focal deficits noted Skin: No rash or skin lesions. Psychiatric: Coperative. Nonsuicidal Musculoskeletal: No joint swelling or deformity. Normal range of motion. Results CBC & Chem 7: 06/16/19 02:00 06/16/19 02:00 Labs: Abnormal Lab Results - Last 24 Hours (Table) 06/16/19 06/16/19 06/16/19 Range/Units 02:00 02:00 02:00 MCV 101.6 H (80.0-100.0) fL PT 57.1 H (9.0-12.0) sec INR 5.9 H* (<1.2) APTT 46.6 H (22.0-30.0) sec Troponin I (0.000-0.034) ng/mL Lipase 20 L (23-300) U/L 06/16/19 Range/Units 05:20 MCV (80.0-100.0) fL PT (9.0-12.0) sec INR (<1.2) APTT (22.0-30.0) sec Troponin I 0.040 H* (0.000-0.034) ng/mL Lipase (23-300) U/L Thrombosis Risk Factor Assmnt - DVT/VTE Prophylaxis DVT/VTE Prophylaxis: Pharmacologic Prophylaxis ordered Assessment and Plan Assessment: Chest pain. Possibly due to chronic aortic dissection.. Ruled out ACS. Continue with aggressive blood pressure management. Chronic aortic dissection involving the ascending aorta. Not a surgical candidate. Evaluated at [facility] Marfan syndrome ArnoldChiari malformation History of aortic valve replacement using mechanical valve History of coronary artery bypass graft 4 vessel Perivascular disease Heroin marijuana abuse Previous history of smoking Hepatitis C Coumadin coagulopathy with INR level V.9 Anxiety/depression Chronic back pain History of CVA/TIA Chronic CHF with diastolic dysfunction History of splenectomy History of spontaneous pneumothorax Plan: Patient be continued on pain management. Continue with aggressive blood pressure control. 2-D echocardiogram was ordered. Cardiology is on board. Continue the home medications and follow closely. Further recommendations based on the clinical course. Prognosis is guarded with multiple medical problems and comorbid conditions.. Smoking cessation has been counseled. ghazala History Time with Patient: Greater than 30
[2019-06-17 02:36] LABS: Cholesterol 174 mg/dL (<200); HDL Cholesterol 37 mg/dL (40-60); LDL Cholesterol,Calculated 104 mg/dL (0-99); Triglycerides 165 mg/dL (<150)
[2019-06-17 07:37] LABS: INR 4.6 (<1.2)
[2019-06-17 08:24] VITALS: BP 123/64; PULSE 72; RESP 16; TEMP 97.6
[2019-06-17] MEDS: CHOLECALCIFEROL 1,000 UNIT TAB PO SCH (08:30)
[2019-06-17] MEDS: CYANOCOBALAMIN 500 MCG TAB PO SCH (08:31)
[2019-06-17] MEDS: GABAPENTIN 300 MG CAP PO SCH (08:31)
[2019-06-17] MEDS: DULoxetine HCL 60 MG CAPSULE.DR PO SCH (08:31)
[2019-06-17] MEDS: METOPROLOL TARTRATE 25 MG TAB PO SCH (08:31)
[2019-06-17] MEDS ORDERED: ASPIRIN 325 MG TAB PO SCH (09:00)
--- NOTE | 2019-06-17 15:24 | P.PN ---
Subjective This is Cassidy Lee PA-C dictating a progress note on this patient The patient was interviewed and examined by me as well as by Dr. Martinez Case discussed with Dr. Martinez and he agrees with the plan of care IMPRESSION / ASSESSMENT: Atypical chest discomfort likely secondary to chronic aortic dissection troponins mildly abnormal, pain improved today known chronic aortic dissection Valvular heart disease status post aortic valve replacement with mechanical valve Supratherapeutic INR Chronic diastolic heart failure, patient stable from a heart failure symptoms standpoint Marfan syndrome Hepatitis C PLAN: Continue holding warfarin today, decrease dose to 4 mg to reinitiate tomorrow Echo has been ordered, awaiting results HPI/interval history Patient is a 33-year-old female with a past medical history of Marfan syndrome, chronic aortic dissection, valvular heart disease status post aortic valve replacement, chronic diastolic heart failure, hepatitis C, and smoking who presented with complaints of chest discomfort. She was recently evaluated at [facility] for her chronic aortic dissection and the decision was made not to p ursue surgery and to treat her medically. Labs were significant for an elevated INR at 5.9. INR was 4.6. Troponins were initially negative, then mildly elevated at 0.4, repeat troponin last night was negative. Her blood pressure has been well-controlled. Patient seen and examined resting comfortably in bed. States her pain has improved. Denies any shortness of breath. No dizziness lightheadedness or syncope. EXAMINATION Temperature 97.6F, pulse 72, respirations 16, blood pressure 123/64, oxygen saturation 94% on room air Patient seen and examined resting comfortably in bed, in no acute distress Breath sounds are diminished bilaterally Chest is nontender to palpation Heart is regular, crisp mechanical valve sound auscultated No elevated JVD or lower extremity edema REVIEW OF LABS, ECG CBC 8.5, hemoglobin 14.3, platelets 285, INR 4.6, potassium 4.2, BUN 9, creatinine 0.67 Total cholesterol 174, LDL 104, HDL 37, triglycerides 165 Objective - Vital Signs Vital signs: Vital Signs Temp 97.6 F 06/17/19 08:00 Pulse 72 06/17/19 08:00 Resp 16 06/17/19 08:00 BP 123/64 06/17/19 08:00 Pulse Ox 94 L 06/17/19 08:00 Intake & Output 06/16/19 06/17/1906/17/19 18:59 06:59 18:59 Intake Total 666 462 Balance 666 462 Weight 45.8 kg 50.5 kg Intake: Oral 666 462 Other: Voiding Method Toilet # Voids 2 1 1 - Labs CBC & Chem 7: 06/16/19 02:00 06/16/19 02:00 Labs: Abnormal Lab Results - Last 24 Hours (Table) 06/16/19 06/17/19 Range/Units 02:00 07:16 PT 44.0 H (9.0-12.0) sec INR 4.6 H (<1.2) Triglycerides 165 H (<150) mg/dL LDL Cholesterol, Calc 104 H (0-99) mg/dL HDL Cholesterol 37 L (40-60) mg/dL
--- NOTE | 2019-06-18 11:42 | ECHOF ---
Referral Reason: MEASUREMENTS -------- HEIGHT: 180.3 cm WEIGHT: 50.3 kg BP: 142/70 IVSd: 1.4 cm (0.6 - 1.1) LVIDd: 3.8 cm (3.9 - 5.3) LVPWd: 1.6 cm (0.6 - 1.1) IVSs: 2.0 cm LVIDs: 2.6 cm LVPWs: 1.8 cm LAESV Index (A-L): 46.26 ml/m MV EXCURSION: 15.271 mm (> 18.000) MV EF SLOPE: 45 mm/s (70 - 150) EPSS: 0.9 cm MV E Edward: 1.33 m/s MV DecT: 293 ms MV A Edward: 0.99 m/s MV E/A Ratio: 1.34 AV maxP.07 mmHg AV meanP.88 mmHg RAP: 5.00 mmHg RVSP: 28.65 mmHg FINDINGS -------- Sinus rhythm. This was a technically good study. The left ventricular size is normal. There is moderate concentric left ventricular hypertrophy. O verall left ventricular systolic function is mild-moderately impaired with, an EF between 40 - 45 %. There is evidence of paradoxical septal motion. Increased LAP Grade 2 Diastolic Dysfunction. The right ventricle is normal in size. LA is severely dilated >40 ml/m2 The right atrial size is normal. Peak/mean gradient across the Aortic Valve is 22.07mmHg / 13.88mmHg. Normally functioning mechanica l prosthetic valve. The mitral valve leaflets are mildly thickened. Mild mitral annular calcification present. Severe mitral regurgitation is present. There is a mitral valve prolapse. Mild tricuspid regurgitation present. Right ventricular systolic pressure is normal at < 35 mmHg. There is no pulmonic regurgitation present. The aortic root size is normal. Normal inferior vena cava with normal inspiratory collapse consistent with estimated right atrial pre ssure of 5 mmHg. There is no pericardial effusion. CONCLUSIONS -------- 1. Sinus rhythm. 2. This was a technically good study. 3. The left ventricular size is normal. 4. There is moderate concentric left ventricular hypertrophy. 5. Overall left ventricular systolic function is mild-moderately impaired with, an EF between 40 - 45 %. 6. There is evidence of paradoxical septal motion. 7. Increased LAP Grade 2 Diastolic Dysfunction. 8. The right ventricle is normal in size. 9. LA is severely dilated >40 ml/m2 10. The right atrial size is normal. 11. Peak/mean gradient across the Aortic Valve is 22.07mmHg / 13.88mmHg. 12. Normally functioning mechanical prosthetic valve. 13. The mitral valve leaflets are mildly thickened. 14. Mild mitral annular calcification present. 15. Severe mitral regurgitation is present. 16. There is a mitral valve prolapse. 17. Mild tricuspid regurgitation present. 18. Right ventricular systolic pressure is normal at < 35 mmHg. 19. There is no pulmonic regurgitation present. 20. The aortic root size is normal. 21. Normal inferior vena cava with normal inspiratory collapse consistent with estimated right atrial pressure of 5 mmHg. 22. There is no pericardial effusion. SUPERINTENDENT SERVICE: Milagros Sanchez RDCS
--- NOTE | 2019-06-25 22:48 | P.DS ---
Providers Date of admission: 06/16/19 06:01 Expected date of discharge: 06/17/19 Attending physician: Warner Childers Consults: 06/16/19 06:01 Consult Physician Urgent Consulting Provider: Terry Briggs Consult Reason/Comments: elevated troponin Do you want consulting provider notified?: Yes Primary care physician: [facility] Course: Chest pain. Possibly due to chronic aortic dissection.. Ruled out ACS. Continue with aggressive blood pressure management. Chronic aortic dissection involving the ascending aorta. Not a surgical candidate. Evaluated at [facility] Marfan syndrome ArnoldChiari malformation History of aortic valve replacement using mechanical valve History of coronary artery bypass graft 4 vessel Perivascular disease Heroin marijuana abuse Previous history of smoking Hepatitis C Coumadin coagulopathy with INR level V.9 Anxiety/depression Chronic back pain History of CVA/TIA Chronic CHF with diastolic dysfunction History of splenectomy History of spontaneous pneumothorax Patient is a 33-year-old female with a known history of Marfan syndrome, ArnoldChiari malformation, chronic aortic dissection and history of aortic valve replacement with mechanical valve in currently on Coumadin for anticoagulation, chronic diastolic CHF, chronic back pain, peripheral vascular disease, coronary artery bypass graft 4 with a, anxiety and heroin and/marijuana use came to ER with the complaints of chest pain and shortness of breath upon waking up early in the morning. During previous admission patient was transferred to [facility] due to aortic dissection. Apparently patient was not a candidate for surgery. Patient presents to ER with complaints of chest pain. Which is sharp in the middle of the chest without any radiation. Patient does have some associated shortness of breath. No nausea vomiting or diaphoresis. No headache or dizziness or lightheadedness. Patient denied any complaints of fever. No chills. No cough or sputum production. Denied any recent illnesses. Patient follows with Dr. Calles as an outpatient EKG showed normal sinus rhythm Chest x-ray showed no acute process. There is clearing of pulmonary edema compared to last exam. Troponin 0.012, 0.040 and 0.028 INR 5.9 Patient is somewhat poor historian. Patient be continued on pain management. Continued with aggressive blood pressure control. 2-D echocardiogram was ordered. Cardiology is on board. Continue the home medications and follow closely. Prognosis is guarded with multiple medical problems and comorbid conditions.. Smoking cessation has been counseled. Coumadin dose was decreased to 4 mg daily due to supratherapeutic INR level. Patient is more awake and oriented today. Chest pain did improve. Patient was recommended to follow with her physician at [facility]. PHYSICAL EXAMINATION: Patient is lying in the bed comfortably, no acute distress, awake alert and oriented.. HEENT: Normocephalic. Neck is supple. Pupils reactive. Nostrils clear. Oral cavity is moist. Ears reveal no drainage. Neck reveals no JVD, carotid bruits, or thyromegaly. CHEST EXAMINATION: Trachea is central. Symmetrical expansion. Lung lay clear to auscultation and percussion. CARDIAC: Normal S1, S2 with no gallops. Positive murmurs ABDOMEN: Soft. Bowel sounds normal. No organomegaly. No abdominal bruits. Extremities: reveal no edema. No clubbing or cyanosis Neurologically awake, alert, oriented x3 with well-coordinated movements. No focal deficits noted Skin: No rash or skin lesions. Psychiatric: Coperative. Nonsuicidal Musculoskeletal: No joint swelling or deformity. Normal range of motion. Vital Signs Temp 97.6 F 06/17/19 08:00 Pulse 72 06/17/19 08:00 Resp 16 06/17/19 08:00 BP 123/64 06/17/19 08:00 Pulse Ox 94 L 06/17/19 08:00 Intake & Output 06/16/19 06/17/19 06/17/19 18:59 06:59 18:59 Intake Total 666 462 Balance 666 462 Weight 45.8 kg 50.5 kg Intake: Oral 666 462 Other: Voiding Method Toilet # Voids 2 1 1 Total time taken greater than 35 minutes including 18 minutes for counseling and coordination of care. Patient Condition at Discharge: Fair Plan - Discharge Summary Discharge Rx Participant: No New Discharge Prescriptions: New Warfarin Sodium 4 mg PO DAILY #30 tablet Continue Cholecalciferol [Vitamin D3 (25 Mcg = 1000 Iu)] 5,000 unit PO DAILY Metoprolol Tartrate 25 mg PO BID Ferrous Sulfate [Iron (65 MG Elemental)] 325 mg PO DAILY DULoxetine HCL [Cymbalta] 60 mg PO BID Albuterol Inhaler [Ventolin Hfa Inhaler] 2 puff INHALATION RT-Q8H PRN PRN Reason: Shortness Of Breath OLANZapine [ZyPREXA] 15 mg PO HS Cyanocobalamin/Cobamamide [Vitamin B-12 5,000 Mcg Tab Sl] 1 tab SL DAILY Melatonin 3 mg PO HS Gabapentin [Neurontin] 300 mg PO TID Discontinued Warfarin [Coumadin] 5 mg PO DAILY Discharge Medication List Cholecalciferol [Vitamin D3 (25 Mcg = 1000 Iu)] 5,000 unit PO DAILY 05/18/18 [History] Metoprolol Tartrate 25 mg PO BID 06/04/18 [History] DULoxetine HCL [Cymbalta] 60 mg PO BID 06/14/18 [History] Ferrous Sulfate [Iron (65 MG Elemental)] 325 mg PO DAILY 06/14/18 [History] Albuterol Inhaler [Ventolin Hfa Inhaler] 2 puff INHALATION RT-Q8H PRN 09/17/18 [History] Cyanocobalamin/Cobamamide [Vitamin B-12 5,000 Mcg Tab Sl] 1 tab SL DAILY 04/19/19 [History] OLANZapine [ZyPREXA] 15 mg PO HS 04/19/19 [History] Melatonin 3 mg PO HS 05/19/19 [History] Gabapentin [Neurontin] 300 mg PO TID 06/10/19 [History] Warfarin Sodium 4 mg PO DAILY #30 tablet 06/17/19 [Rx] Follow up Appointment(s)/Referral(s): Terry Briggs MD [STAFF PHYSICIAN] - 06/28/19 3:15 pm (Monday) [facility] - 06/25/19 5:30 pm (Monday) Discharge Disposition: HOME SELF-CARE
== END 2019-06-17 12:56 | disposition home or self-care (01) ==
LOC: EC 01:46 → 3SCARD 06:01
PROVIDERS: ADMIT Hospitalist; ATTEND Hospitalist
DX: R07.89 Other chest pain (principal); I71.00 Dissection of unspecified site of aorta; Q87.40 Marfan syndrome, unspecified; Q07.00 Arnold-Chiari syndrome without spina bifida or hydrocephalus; Z95.2 Presence of prosthetic heart valve; Z95.1 Presence of aortocoronary bypass graft; F12.10 Cannabis abuse, uncomplicated; F11.10 Opioid abuse, uncomplicated; B19.20 Unspecified viral hepatitis C without hepatic coma; R79.1 Abnormal coagulation profile; T45.515A Adverse effect of anticoagulants, initial encounter; F32.9 Major depressive disorder, single episode, unspecified; F41.9 Anxiety disorder, unspecified; G89.29 Other chronic pain; M54.9 Dorsalgia, unspecified; R61 Generalized hyperhidrosis; I50.32 Chronic diastolic (congestive) heart failure; Z90.81 Acquired absence of spleen; I73.9 Peripheral vascular disease, unspecified; F17.200 Nicotine dependence, unspecified, uncomplicated; M19.90 Unspecified osteoarthritis, unspecified site; I69.351 Hemiplegia and hemiparesis following cerebral infarction affecting right dominant side; R79.89 Other specified abnormal findings of blood chemistry; I38 Endocarditis, valve unspecified; I34.0 Nonrheumatic mitral (valve) insufficiency; Z79.899 Other long term (current) drug therapy; Z79.01 Long term (current) use of anticoagulants; Z87.01 Personal history of pneumonia (recurrent); Z87.11 Personal history of peptic ulcer disease; Z86.14 Personal history of Methicillin resistant Staphylococcus aureus infection; Z88.0 Allergy status to penicillin; Z88.8 Allergy status to other drugs, medicaments and biological substances; Z83.0 Family history of human immunodeficiency virus [HIV] disease; Z83.3 Family history of diabetes mellitus; Z81.1 Family history of alcohol abuse and dependence; Z84.89 Family history of other specified conditions
CPT/HCPCS: 93005 ×2; 99285; 36415; 94640; 94760; 93306; 80061; 80053; 83690; 83735; 84484; 85025; 85610 ×2; 85730; 71046; G0378 ×2

== ENCOUNTER 2019-06-27 09:54 | Emergency (ER) | payer OTHER ==
[2019-06-27] MEDS ORDERED: MORPHINE SULFATE 4 MG/ML SYRINGE IVP STA (10:11)
[2019-06-27 10:40] LABS: Basophils # (A) 0.2 k/uL (0-0.2); Basophils % (A) 2 %; Eosinophils # (A) 0.5 k/uL (0-0.7); Eosinophils % (A) 5 %; HCT 45.7 % (34.0-46.0); HGB 14.1 gm/dL (11.4-16.0); Lymphocytes # (A) 2.2 k/uL (1.0-4.8); Lymphocytes % (A) 22 %; MCH 31.1 pg (25.0-35.0); MCHC 30.9 g/dL (31.0-37.0); MCV 100.7 fL (80.0-100.0); Mean Platelet Volume 6.9; Monocytes # (A) 0.5 k/uL (0-1.0); Monocytes % (A) 4 %; Neutrophils # (A) 6.7 k/uL (1.3-7.7); Neutrophils % (A) 65 %; Platelet Count 390 k/uL (150-450); RBC 4.54 m/uL (3.80-5.40); RDW 13.4 % (11.5-15.5); WBC 10.3 k/uL (3.8-10.6)
[2019-06-27 10:51] LABS: INR 1.7 (<1.2); Partial Thromboplastin Time 37.3 sec (22.0-30.0); Prothrombin Time 16.8 sec (9.0-12.0)
[2019-06-27 10:57] LABS: ALT 18 U/L (9-52); AST 36 U/L (14-36); African American GFR (CKD) >90 (>60 ml/min/1.73 sqM); Albumin 4.8 g/dL (3.5-5.0); Alkaline Phosphatase 104 U/L (38-126); Anion Gap 8 mmol/L; Blood Urea Nitrogen 9 mg/dL (7-17); Calcium 9.7 mg/dL (8.4-10.2); Carbon Dioxide 29 mmol/L (22-30); Chloride 102 mmol/L (98-107); Glucose 79 mg/dL (74-99); Magnesium 1.9 mg/dL (1.6-2.3); Potassium 4.5 mmol/L (3.5-5.1); Sodium 139 mmol/L (137-145); Total Bilirubin 0.5 mg/dL (0.2-1.3); Total Protein 8.8 g/dL (6.3-8.2)
--- NOTE | 2019-06-27 10:58 | XR ---
EXAMINATION TYPE: XR chest 2V DATE OF EXAM: 06/27/2019 COMPARISON: 06/16/2019 HISTORY: Chest pain TECHNIQUE: Frontal and lateral views of the chest are obtained. FINDINGS: There is no focal air space opacity. Postsurgical changes left upper lobe. Hyperinflation compatible with COPD. No evidence for pneumothorax. No pleural effusion. The cardiac silhouette size is within normal limits. Kyphoscoliosis persists. IMPRESSION: 1. No acute cardiopulmonary process.
--- NOTE | 2019-06-27 11:19 | ED ---
General Adult HPI - General Chief complaint: Chest Pain Stated complaint: Chest pain Time Seen by Provider: 06/27/19 09:59 Source: patient, RN notes reviewed Mode of arrival: EMS Limitations: no limitations - History of Present Illness Initial comments: Arlin is a 34-year-old female with a past medical history of Marfan syndrome, CVA, spontaneous pneumothorax, chronic pain, heart failure who presents to the emergency department for a chief complaint of chest pain. Patient states it is a left-sided sharp chest pain. States she has had this pain on and off since she was diagnosed with an aortic aneurysm about 1.5 months ago. States this is inoperable. States she has had this same pain since she was diagnosed over a month ago. Denies any radiating pain. Denies shortness of breath. Denies any diaphoresis associated with this pain. Patient does take Coumadin. Patient does have a history of multiple valve repair in the heart. Patient has no other complaints at this time including shortness of breath, abdominal pain, nausea or vomiting, headache, or visual changes. - Related Data Home Medications Medication Instructions Recorded Confirmed Cholecalciferol [Vitamin D3 (25 5,000 unit PO DAILY 05/18/18 06/16/19 Mcg = 1000 Iu)] Metoprolol Tartrate 25 mg PO BID 06/04/18 06/16/19 DULoxetine HCL [Cymbalta] 60 mg PO BID 06/14/18 06/16/19 Ferrous Sulfate [Iron (65 MG 325 mg PO DAILY 06/14/18 06/16/19 Elemental)] Albuterol Inhaler [Ventolin Hfa 2 puff INHALATION RT-Q8H PRN 09/17/18 06/16/19 Inhaler] OLANZapine [ZyPREXA] 15 mg PO HS 04/19/19 06/16/19 Melatonin 3 mg PO HS 05/19/19 06/16/19 Gabapentin [Neurontin] 300 mg PO TID 06/10/19 06/16/19 Carvedilol [Coreg] 6.25 mg PO BID 06/27/19 06/27/19 Cyanocobalamin (Vitamin B-12) 1,000 mcg PO DAILY 06/27/19 06/27/19 [Vitamin B-12] Darifenacin Hydrobromide [Enablex] 7.5 mg PO DAILY 06/27/19 06/27/19 Previous Rx's Medication Instructions Recorded Warfarin Sodium 4 mg PO DAILY #30 tablet 06/17/19 Allergies Allergy/AdvReac Type Severity Reaction Status Date / Time chlordiazepoxide HCl Allergy SEE COMMENT Verified 06/27/19 11:30 [From Librium] Penicillins Allergy Rash/Hives Verified 06/27/19 11:30 ketorolac [From Toradol] AdvReac ANXIETY Verified 06/27/19 11:30 prochlorperazine edisylate AdvReac PANIC Verified 06/27/19 11:30 [From Compazine] ATTACK prochlorperazine maleate AdvReac PANIC Verified 06/27/19 11:30 [From Compazine] ATTACK Review of Systems ROS Statement: Those systems with pertinent positive or pertinent negative responses have been documented in the HPI. ROS Other: All systems not noted in ROS Statement are negative. Past Medical History Past Medical History: Heart Failure, CVA/TIA, Liver Disease, Neurologic Disorder, Osteoarthritis (OA), Pneumonia Additional Past Medical History / Comment(s): Stroke with residual right-sided weakness 2017, TIAs, marfan's syndrome, ArnoldChiari malformation, spontaneous pneumothorax x 21, scoliosis and pectus excavatum secondary to Marfan's, chronic back pain, bilateral leg pain, gastric ulcers, sinus infections, STATED HAS POOR CIRCULATION, viral meningitis, HEP C. 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 spleenectomy 2018, L upper lobectomy d/t pneumothoraxs. Past Anesthesia/Blood Transfusion Reactions: No Reported Reaction Past Psychological History: Anxiety Smoking Status: Current every day smoker Past Alcohol Use History: Occasional Past Drug Use History: Heroin, Marijuana - Past Family History Father Additional Family Medical History / Comment(s): Father is with history of AIDS. Mother Family Medical History: Diabetes Mellitus Additional Family Medical History / Comment(s): Mother at age 49 from liver cirrhosis secondary to alcohol abuse. Brother(s) Additional Family Medical History / Comment(s): Patient has one brother with no major medical problems. General Exam Limitations: no limitations General appearance: alert, in no apparent distress Head exam: Present: atraumatic, normocephalic, normal inspection Eye exam: Present: normal appearance, PERRL, EOMI. Absent: scleral icterus, conjunctival injection, periorbital swelling ENT exam: Present: normal exam, mucous membranes moist Neck exam: Present: normal inspection, full ROM. Absent: tenderness, meningismus, lymphadenopathy Respiratory exam: Present: normal lung sounds bilaterally. Absent: respiratory distress, wheezes, rales, rhonchi, stridor Cardiovascular Exam: Present: regular rate, normal rhythm, normal heart sounds. Absent: systolic murmur, diastolic murmur, rubs, gallop, clicks GI/Abdominal exam: Present: soft, normal bowel sounds. Absent: distended, tenderness, guarding, rebound, rigid Neurological exam: Present: alert Course Vital Signs 06/27/19 06/27/19 09:55 10:30 Temperature 97.7 F Pulse Rate 83 79 Respiratory 16 Rate Blood Pressure 135/69 94/55 O2 Sat by Pulse 97 99 Oximetry EKG Findings - EKG Comments: EKG Findings:: Normal sinus rhythm, ventricular rate 84, GA interval 178, QTC 489, patient does have T-wave inversions noted in V2 V3 V4 V5 with depression noted in V6. This was compared to previous EKG from 06/16/2019 and is redemonstrated. Both EKGs were reviewed by Dr. Obando. Medical Decision Making - Medical Decision Making CT of the chest from 05/19/2019 she is a 4.3 cm ascending aortic aneurysm. Coul d not exclude a new dissection without descending aortic extension. Patient had a repeat CTA on 06/10/2019 which showed aneurysm of the descending or area with limited dissection of the anterior aspect anterior wall unchanged. Patient was admitted for an N STEMI. Serial enzymes are repeated. Echocardiogram was performed. It was felt that patient's pain was likely related to chronic dissection. Past medical history was reviewed. CBC CMP is unremarkable. Troponin is negative. Chest x-ray showed no acute process. Case was discussed with Dr. Obando who discussed this with Dr. Calles. As patient's pain has been consistent for over a month he is comfortable discharging patient home. She will follow up outpatient. She'll return here if she has any worsening symptoms. - Lab Data Result diagrams: 06/27/19 10:06/27/19 10: Lab Results 06/27/19 06/27/19 06/27/19 Range/Units 10: 10: 10: WBC 10.3 (3.8-10.6) k/uL RBC 4.54 (3.80-5.40) m/uL Hgb 14.1 (11.4-16.0) gm/dL Hct 45.7 (34.0-46.0) % MCV 100.7 H (80.0-100.0) fL MCH 31.1 (25.0-35.0) pg MCHC 30.9 L (31.0-37.0) g/dL RDW 13.4 (11.5-15.5) % Plt Count 390 (150-450) k/uL Neutrophils % 65 % Lymphocytes % 22 % Monocytes % 4 % Eosinophils % 5 % Basophils % 2 % Neutrophils # 6.7 (1.3-7.7) k/uL Lymphocytes # 2.2 (1.0-4.8) k/uL Monocytes # 0.5 (0-1.0) k/uL Eosinophils # 0.5 (0-0.7) k/uL Basophils # 0.2 (0-0.2) k/uL PT 16.8 H (9.0-12.0) sec INR 1.7 H (<1.2) APTT 37.3 H (22.0-30.0) sec Sodium 139 (137-145) mmol/L Potassium 4.5 (3.5-5.1) mmol/L Chloride 102 (98-107) mmol/L Carbon Dioxide 29 (22-30) mmol/L Anion Gap 8 mmol/L BUN 9 (7-17) mg/dL Creatinine 0.51 L (0.52-1.04) mg/dL Est GFR (CKD-EPI)AfAm >90 (>60 ml/min/1.73 sqM) Est GFR (CKD-EPI)NonAf >90 (>60 ml/min/1.73 sqM) Glucose 79 (74-99) mg/dL Calcium 9.7 (8.4-10.2) mg/dL Magnesium 1.9 (1.6-2.3) mg/dL Total Bilirubin 0.5 (0.2-1.3) mg/dL AST 36 (14-36) U/L ALT 18 (9-52) U/L Alkaline Phosphatase 104 (38-126) U/L Troponin I (0.000-0.034) ng/mL Total Protein 8.8 H (6.3-8.2) g/dL Albumin 4.8 (3.5-5.0) g/dL 06/27/19 Range/Units 10:28 WBC (3.8-10.6) k/uL RBC (3.80-5.40) m/uL Hgb (11.4-16.0) gm/dL Hct (34.0-46.0) % MCV (80.0-100.0) fL MCH (25.0-35.0) pg MCHC (31.0-37.0) g/dL RDW (11.5-15.5) % Plt Count (150-450) k/uL Neutrophils % % Lymphocytes % % Monocytes % % Eosinophils % % Basophils % % Neutrophils # (1.3-7.7) k/uL Lymphocytes # (1.0-4.8) k/uL Monocytes # (0-1.0) k/uL Eosinophils # (0-0.7) k/uL Basophils # (0-0.2) k/uL PT (9.0-12.0) sec INR (<1.2) APTT (22.0-30.0) sec Sodium (137-145) mmol/L Potassium (3.5-5.1) mmol/L Chloride (98-107) mmol/L Carbon Dioxide (22-30) mmol/L Anion Gap mmol/L BUN (7-17) mg/dL Creatinine (0.52-1.04) mg/dL Est GFR (CKD-EPI)AfAm (>60 ml/min/1.73 sqM) Est GFR (CKD-EPI)NonAf (>60 ml/min/1.73 sqM) Glucose (74-99) mg/dL Calcium (8.4-10.2) mg/dL Magnesium (1.6-2.3) mg/dL Total Bilirubin (0.2-1.3) mg/dL AST (14-36) U/L ALT (9-52) U/L Alkaline Phosphatase (38-126) U/L Troponin I <0.012 (0.000-0.034) ng/mL Total Protein (6.3-8.2) g/dL Albumin (3.5-5.0) g/dL Disposition Clinical Impression: Atypical chest pain Disposition: HOME SELF-CARE Condition: Good Instructions (If sedation given, give patient instructions): Chest Pain (ED) Additional Instructions: Please follow up with primary care in 1-2 days. Return to the emergency department if you have any worsening symptoms. Is patient prescribed a controlled substance at d/c from ED?: No Referrals: [facility] [Primary Care Provider] - 1-2 days Time of Disposition: 12:28
[2019-06-27] MEDS ORDERED: METOCLOPRAMIDE 5 MG/ML 2 ML VIAL IVP STA (12:03)
[2019-06-27 12:35] VITALS: BP 120/76; PULSE 80; RESP 18; TEMP 97.8
== END 2019-06-27 12:38 | disposition home or self-care (01) ==
LOC: EC 09:54
DX: R07.89 Other chest pain (principal); F41.9 Anxiety disorder, unspecified; I50.9 Heart failure, unspecified; F17.200 Nicotine dependence, unspecified, uncomplicated; Z79.02 Long term (current) use of antithrombotics/antiplatelets; Z79.899 Other long term (current) drug therapy; Z88.0 Allergy status to penicillin; Z88.5 Allergy status to narcotic agent; Z88.8 Allergy status to other drugs, medicaments and biological substances; Z95.1 Presence of aortocoronary bypass graft; Z95.4 Presence of other heart-valve replacement
CPT/HCPCS: 36415; 80053; 83735; 84484; 85025; 85610; 85730; 71046; 99285; 96374; 96375; J2270; J2765

== ENCOUNTER 2019-07-01 16:04 | Emergency (ER) | payer OTHER ==
[2019-07-01 16:23] VITALS: BP 101/59; PULSE 101; RESP 18; TEMP 98
[2019-07-01] MEDS ORDERED: SODIUM CHLORIDE 0.9% 1,000 ML IV STA (16:59)
[2019-07-01 17:18] LABS: Basophils # (A) 0.2 k/uL (0-0.2); Basophils % (A) 1 %; Eosinophils # (A) 0.3 k/uL (0-0.7); Eosinophils % (A) 3 %; HCT 40.6 % (34.0-46.0); HGB 13.2 gm/dL (11.4-16.0); Lymphocytes # (A) 2.9 k/uL (1.0-4.8); Lymphocytes % (A) 24 %; MCH 32.4 pg (25.0-35.0); MCHC 32.5 g/dL (31.0-37.0); MCV 99.5 fL (80.0-100.0); Mean Platelet Volume 6.6; Monocytes # (A) 0.6 k/uL (0-1.0); Monocytes % (A) 5 %; Neutrophils # (A) 7.8 k/uL (1.3-7.7); Neutrophils % (A) 65 %; Platelet Count 367 k/uL (150-450); RBC 4.08 m/uL (3.80-5.40); RDW 13.8 % (11.5-15.5)
--- NOTE | 2019-07-01 17:21 | XR ---
EXAMINATION TYPE: XR chest 2V DATE OF EXAM: 07/01/2019 COMPARISON: 06/27/2019 HISTORY: Syncope and weakness TECHNIQUE: Frontal and lateral views of the chest are obtained. FINDINGS: There is no heart failure nor confluent pneumonic infiltrate. There are sternal wires. The re is a plate fixing the right proximal humerus. There is thoracolumbar kyphotic deformity with anter ior wedging of lower thoracic vertebra. Heart size is normal. There is upper thoracic levoscoliosis. IMPRESSION: No active cardiopulmonary disease. No change.
[2019-07-01 17:30] LABS: ALT 17 U/L (9-52); AST 28 U/L (14-36); African American GFR (CKD) >90 (>60 ml/min/1.73 sqM); Albumin 4.3 g/dL (3.5-5.0); Alkaline Phosphatase 84 U/L (38-126); Anion Gap 6 mmol/L; Blood Urea Nitrogen 19 mg/dL (7-17); Calcium 9.6 mg/dL (8.4-10.2); Carbon Dioxide 29 mmol/L (22-30); Chloride 105 mmol/L (98-107); Creatine Kinase 52 U/L (30-135); Glucose 92 mg/dL (74-99); INR 1.8 (<1.2); Partial Thromboplastin Time 36.5 sec (22.0-30.0); Phosphorus 4.5 mg/dL (2.5-4.5); Potassium 4.5 mmol/L (3.5-5.1); Prothrombin Time 17.5 sec (9.0-12.0); Sodium 140 mmol/L (137-145); Total Bilirubin 0.4 mg/dL (0.2-1.3); Total Protein 7.8 g/dL (6.3-8.2)
--- NOTE | 2019-07-01 17:34 | ED ---
Dizziness HPI - General Chief Complaint: Syncope Stated Complaint: Near Syncioe Time Seen by Provider: 07/01/19 16:12 Source: EMS, RN notes reviewed, old records reviewed Mode of arrival: EMS Limitations: physical limitation - History of Present Illness Initial Comments: This is a 34-year-old female the ER patient is well-known to this facility for evaluation of near syncopal event. Patient states she was activated mental health became very lightheaded and dizzy history of same recent ER visit a couple days ago for same. Patient denying any pain currently no chest pain or shortness of breath. Patient again has well-known, care medical history s temming from Marfan's disease some mental health and psychiatric issues as well as some drug abuse issues. Again patient's resting comfortably in bed she is denying current complaints she states her dizziness has improved appetite and well and has no recent fevers or nausea vomiting diarrhea abdominal pain MD Complaint: dizziness, near syncope -: hour(s) Timing: gradual onset Description: lightheadedness History of Same: No History of Trauma: No Severity: mild Improves With: nothing Worsens With: nothing Associated Symptoms: denies other symptoms - Related Data Home Medications Medication Instructions Recorded Confirmed Cholecalciferol [Vitamin D3 (25 5,000 unit PO DAILY 05/18/18 07/01/19 Mcg = 1000 Iu)] Metoprolol Tartrate 25 mg PO BID 06/04/18 07/01/19 DULoxetine HCL [Cymbalta] 60 mg PO BID 06/14/18 07/01/19 Ferrous Sulfate [Iron (65 MG 325 mg PO DAILY 06/14/18 07/01/19 Elemental)] Albuterol Inhaler [Ventolin Hfa 2 puff INHALATION RT-Q8H PRN 09/17/18 07/01/19 Inhaler] OLANZapine [ZyPREXA] 15 mg PO HS 04/19/19 07/01/19 Melatonin 3 mg PO HS 05/19/19 07/01/19 Gabapentin [Neurontin] 300 mg PO TID 06/10/19 07/01/19 Carvedilol [Coreg] 6.25 mg PO BID 06/27/19 07/01/19 Cyanocobalamin (Vitamin B-12) 1,000 mcg PO DAILY 06/27/19 07/01/19 [Vitamin B-12] Darifenacin Hydrobromide [Enablex] 7.5 mg PO DAILY 06/27/19 07/01/19 Warfarin Sodium 4 mg PO HS 07/01/19 07/01/19 Allergies Allergy/AdvReac Type Severity Reaction Status Date / Time chlordiazepoxide HCl Allergy SEE COMMENT Verified 07/01/19 16:58 [From Librium] Penicillins Allergy Rash/Hives Verified 07/01/19 16:58 ketorolac [From Toradol] AdvReac ANXIETY Verified 07/01/19 16:58 prochlorperazine edisylate AdvReac PANIC Verified 07/01/19 16:58 [From Compazine] ATTACK prochlorperazine maleate AdvReac PANIC Verified 07/01/19 16:58 [From Compazine] ATTACK Review of Systems ROS Statement: Those systems with pertinent positive or pertinent negative responses have been documented in the HPI. ROS Other: All systems not noted in ROS Statement are negative. Past Medical History Past Medical History: Heart Failure, CVA/TIA, Liver Disease, Neurologic Disorder, Osteoarthritis (OA), Pneumonia Additional Past Medical History / Comment(s): Stroke with residual right-sided weakness 2017, TIAs, marfan's syndrome, ArnoldChiari malformation, spontaneous pneumothorax x 21, scoliosis and pectus excavatum secondary to Marfan's, chronic back pain, bilateral leg pain, gastric ulcers, sinus infections, STATED HAS POOR CIRCULATION, viral meningitis, HEP C. 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 spleenectomy 2018, L upper lobectomy d/t pneumothoraxs. Past Anesthesia/Blood Transfusion Reactions: No Reported Reaction Past Psychological History: Anxiety Smoking Status: Current every day smoker Past Alcohol Use History: Occasional Past Drug Use History: Heroin, Marijuana - Past Family History Father Additional Family Medical History / Comment(s): Father is with history of AIDS. Mother Family Medical History: Diabetes Mellitus Additional Family Medical History / Comment(s): Mother at age 49 from liver cirrhosis secondary to alcohol abuse. Brother(s) Additional Family Medical History / Comment(s): Patient has one brother with no major medical problems. General Exam Limitations: physical limitation General appearance: alert, in no apparent distress, cachectic Head exam: Present: atraumatic, normocephalic, normal inspection Eye exam: Present: normal appearance, PERRL, EOMI. Absent: scleral icterus, conjunctival injection, periorbital swelling ENT exam: Present: normal exam, mucous membranes dry Neck exam: Present: normal inspection. Absent: tenderness, meningismus, lymphadenopathy Respiratory exam: Present: normal lung sounds bilaterally. Absent: respiratory distress, wheezes, rales, rhonchi, stridor Cardiovascular Exam: Present: normal rhythm, tachycardia, normal heart sounds. Absent: systolic murmur, diastolic murmur, rubs, gallop, clicks GI/Abdominal exam: Present: soft, normal bowel sounds. Absent: distended, t enderness, guarding, rebound, rigid Extremities exam: Present: normal inspection, full ROM, normal capillary refill. Absent: tenderness, pedal edema, joint swelling, calf tenderness Back exam: Present: normal inspection Neurological exam: Present: alert, oriented X3, CN II-XII intact Psychiatric exam: Present: normal affect, normal mood Skin exam: Present: warm, dry, intact, normal color. Absent: rash Course Vital Signs 07/01/19 16:09 Temperature 98.0 F Pulse Rate 101 H Respiratory 18 Rate Blood Pressure 101/59 O2 Sat by Pulse 96 Oximetry - Reevaluation(s) Reevaluation #1: 07/01/19 17:36 Medical record and ER visit from last week are reviewed Reevaluation #2: 07/01/19 18:57 Patient getting anxious for discharge, went to patient's room to discharge and patient was gone, patient eloped prior to discharge instructions and discharge EKG Findings - EKG Comments: EKG Findings:: KG shows sinus rhythm rate of 96, NM 174, QRS 104, QTc 477 Medical Decision Making - Medical Decision Making 34 female the ER for evaluation patient does say with near syncope. Finger with hydration patient very angry to be discharged home, went to room to discharge patient patient had regarding eloped - Lab Data Result diagrams: 07/01/19 16:17 07/01/19 16:17 Lab Results 07/01/19 07/01/19 07/01/19 Range/Units 16:17 16:17 16:17 WBC 12.0 H (3.8-10.6) k/uL RBC 4.08 (3.80-5.40) m/uL Hgb 13.2 (11.4-16.0) gm/dL Hct 40.6 (34.0-46.0) % MCV 99.5 (80.0-100.0) fL MCH 32.4 (25.0-35.0) pg MCHC 32.5 (31.0-37.0) g/dL RDW 13.8 (11.5-15.5) % Plt Count 367 (150-450) k/uL Neutrophils % 65 % Lymphocytes % 24 % Monocytes % 5 % Eosinophils % 3 % Basophils % 1 % Neutrophils # 7.8 H (1.3-7.7) k/uL Lymphocytes # 2.9 (1.0-4.8) k/uL Monocytes # 0.6 (0-1.0) k/uL Eosinophils # 0.3 (0-0.7) k/uL Basophils # 0.2 (0-0.2) k/uL PT 17.5 H (9.0-12.0) sec INR 1.8 H (<1.2) APTT 36.5 H (22.0-30.0) sec Sodium 140 (137-145) mmol/L Potassium 4.5 (3.5-5.1) mmol/L Chloride 105 (98-107) mmol/L Carbon Dioxide 29 (22-30) mmol/L Anion Gap 6 mmol/L BUN 19 H (7-17) mg/dL Creatinine 0.54 (0.52-1.04) mg/dL Est GFR (CKD-EPI)AfAm >90 (>60 ml/min/1.73 sqM) Est GFR (CKD-EPI)NonAf >90 (>60 ml/min/1.73 sqM) Glucose 92 (74-99) mg/dL Plasma Lactic Acid Santino (0.7-2.0) mmol/L Calcium 9.6 (8.4-10.2) mg/dL Phosphorus 4.5 (2.5-4.5) mg/dL Magnesium 2.0 (1.6-2.3) mg/dL Total Bilirubin 0.4 (0.2-1.3) mg/dL AST 28 (14-36) U/L ALT 17 (9-52) U/L Alkaline Phosphatase 84 (38-126) U/L Creatine Kinase 52 (30-135) U/L Troponin I (0.000-0.034) ng/mL NT-Pro-B Natriuret Pep pg/mL Total Protein 7.8 (6.3-8.2) g/dL Albumin 4.3 (3.5-5.0) g/dL 07/01/19 07/01/19 07/01/19 Range/Units 16:17 16:17 17:33 WBC (3.8-10.6) k/uL RBC (3.80-5.40) m/uL Hgb (11.4-16.0) gm/dL Hct (34.0-46.0) % MCV (80.0-100.0) fL MCH (25.0-35.0) pg MCHC (31.0-37.0) g/dL RDW (11.5-15.5) % Plt Count (150-450) k/uL Neutrophils % % Lymphocytes % % Monocytes % % Eosinophils % % Basophils % % Neutrophils # (1.3-7.7) k/uL Lymphocytes # (1.0-4.8) k/uL Monocytes # (0-1.0) k/uL Eosinophils # (0-0.7) k/uL Basophils # (0-0.2) k/uL PT (9.0-12.0) sec INR (<1.2) APTT (22.0-30.0) sec Sodium (137-145) mmol/L Potassium (3.5-5.1) mmol/L Chloride (98-107) mmol/L Carbon Dioxide (22-30) mmol/L Anion Gap mmol/L BUN (7-17) mg/dL Creatinine (0.52-1.04) mg/dL Est GFR (CKD-EPI)AfAm (>60 ml/min/1.73 sqM) Est GFR (CKD-EPI)NonAf (>60 ml/min/1.73 sqM) Glucose (74-99) mg/dL Plasma Lactic Acid Sanitno 1.1 (0.7-2.0) mmol/L Calcium (8.4-10.2) mg/dL Phosphorus (2.5-4.5) mg/dL Magnesium (1.6-2.3) mg/dL Total Bilirubin (0.2-1.3) mg/dL AST (14-36) U/L ALT (9-52) U/L Alkaline Phosphatase (38-126) U/L Creatine Kinase (30-135) U/L Troponin I <0.012 (0.000-0.034) ng/mL NT-Pro-B Natriuret Pep 2180 pg/mL Total Protein (6.3-8.2) g/dL Albumin (3.5-5.0) g/dL Disposition Clinical Impression: Near syncope Disposition: HOME SELF-CARE Condition: Fair Instructions (If sedation given, give patient instructions): Near Syncope (ED) Is patient prescribed a controlled substance at d/c from ED?: No Referrals: [facility] [Primary Care Provider] - 1-2 days
== END 2019-07-01 19:13 | disposition home or self-care (01) ==
LOC: EC 16:04
DX: R55 Syncope and collapse (principal); I50.9 Heart failure, unspecified; M19.90 Unspecified osteoarthritis, unspecified site; F41.9 Anxiety disorder, unspecified; F17.200 Nicotine dependence, unspecified, uncomplicated; Z86.73 Personal history of transient ischemic attack (TIA), and cerebral infarction without residual deficits; Z86.14 Personal history of Methicillin resistant Staphylococcus aureus infection; Z95.2 Presence of prosthetic heart valve; Z95.1 Presence of aortocoronary bypass graft; Z96.698 Presence of other orthopedic joint implants; Z79.01 Long term (current) use of anticoagulants; Z79.899 Other long term (current) drug therapy; Z88.8 Allergy status to other drugs, medicaments and biological substances; Z88.0 Allergy status to penicillin; Z88.6 Allergy status to analgesic agent
CPT/HCPCS: 36415; 71046; 80053; 82550; 83605; 83735; 83880; 84100; 84484; 85025; 85610; 85730; 93005; 96360; 99285

== ENCOUNTER 2019-07-22 08:22 | Emergency (ER) | payer OTHER ==
[2019-07-22 08:26] VITALS: TEMP 98
[2019-07-22] MEDS ORDERED: NITROGLYCERIN SL TABS 0.4 MG TAB SUBLINGUAL STA ×3 (08:42)
[2019-07-22] MEDS ORDERED: ASPIRIN 81 MG PO STA (08:42)
[2019-07-22] MEDS ORDERED: ONDANSETRON 4 MG/2 ML VIAL IVP STA (08:43)
--- NOTE | 2019-07-22 08:48 | ED ---
General Adult HPI - General Chief complaint: Chest Pain Stated complaint: CHEST PAIN Time Seen by Provider: 07/22/19 08:31 Source: patient, EMS, RN notes reviewed Mode of arrival: EMS Limitations: no limitations - History of Present Illness Initial comments: Patient is a 34-year-old female presenting to the emergency Department with complaints of chest pain. Onset of symptoms was just a couple of hours ago. Patient does have history of previous chest pain. Patient also has a history of nonoperable dissection that was diagnosed just a couple of months ago. Patient states discomfort is sharp without radiation. Discomfort is sternal. Patient does deny having nausea and then later states she is nauseated. Patient states she has been clean of drugs for the past 3 years. No dyspnea or diaphoresis. - Related Data Home Medications Medication Instructions Recorded Confirmed Cholecalciferol [Vitamin D3 (25 5,000 unit PO DAILY 05/18/18 07/22/19 Mcg = 1000 Iu)] Metoprolol Tartrate 25 mg PO BID 06/04/18 07/22/19 DULoxetine HCL [Cymbalta] 60 mg PO BID 06/14/18 07/22/19 Ferrous Sulfate [Iron (65 MG 325 mg PO DAILY 06/14/18 07/22/19 Elemental)] Albuterol Inhaler [Ventolin Hfa 2 puff INHALATION RT-Q8H PRN 09/17/18 07/22/19 Inhaler] OLANZapine [ZyPREXA] 15 mg PO HS 04/19/19 07/22/19 Melatonin 3 mg PO HS 05/19/19 07/22/19 Carvedilol [Coreg] 6.25 mg PO BID 06/27/19 07/22/19 Cyanocobalamin (Vitamin B-12) 1,000 mcg PO DAILY 06/27/19 07/22/19 [Vitamin B-12] Darifenacin Hydrobromide [Enablex] 7.5 mg PO DAILY 06/27/19 07/22/19 Warfarin Sodium 4 mg PO HS 07/01/19 07/22/19 Aspirin EC [Ecotrin Low Dose] 81 mg PO DAILY 07/22/19 07/22/19 Gabapentin [Neurontin] 400 mg PO TID 07/22/19 07/22/19 Promethazine 6.25MG/5Ml [Phenergan 6.25 mg PO Q8H PRN 07/22/19 07/22/19 Syrup] Trospium Chloride 20 mg PO BID 07/22/19 07/22/19 Allergies Allergy/AdvReac Type Severity Reaction Status Date / Time chlordiazepoxide HCl Allergy SEE COMMENT Verified 07/22/19 09:37 [From Librium] Penicillins Allergy Rash/Hives Verified 07/22/19 09:37 ketorolac [From Toradol] AdvReac ANXIETY Verified 07/22/19 09:37 prochlorperazine edisylate AdvReac PANIC Verified 07/22/19 09:37 [From Compazine] ATTACK prochlorperazine maleate AdvReac PANIC Verified 07/22/19 09:37 [From Compazine] ATTACK Review of Systems ROS Statement: Those systems with pertinent positive or pertinent negative responses have been documented in the HPI. ROS Other: All systems not noted in ROS Statement are negative. Constitutional: Denies: fever Eyes: Denies: eye pain ENT: Denies: ear pain Respiratory: Denies: dyspnea Cardiovascular: Reports: chest pain Endocrine: Denies: fatigue Gastrointestinal: Reports: as per HPI. Denies: abdominal pain Genitourinary: Denies: dysuria Musculoskeletal: Denies: back pain Skin: Denies: rash Neurological: Denies: weakness Past Medical History Past Medical History: Heart Failure, CVA/TIA, Liver Disease, Neurologic Disorder, Osteoarthritis (OA), Pneumonia Additional Past Medical History / Comment(s): Stroke with residual right-sided weakness 2017, TIAs, marfan's syndrome, ArnoldChiari malformation, spontaneous pneumothorax x 21, scoliosis and pectus excavatum secondary to Marfan's, chronic back pain, bilateral leg pain, gastric ulcers, sinus infections, STATED HAS POOR CIRCULATION, viral meningitis, HEP C. 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 spleenectomy 2018, L upper lobectomy d/t pneumothoraxs. Past Anesthesia/Blood Transfusion Reactions: No Reported Reaction Past Psychological History: Anxiety Smoking Status: Current every day smoker Past Alcohol Use History: Occasional Past Drug Use History: Heroin, Marijuana - Past Family History Father Additional Family Medical History / Comment(s): Father is with history of AIDS. Mother Family Medical History: Diabetes Mellitus Additional Family Medical History / Comment(s): Mother at age 49 from liver cirrhosis secondary to alcohol abuse. Brother(s) Additional Family Medical History / Comment(s): Patient has one brother with no major medical problems. General Exam Limitations: no limitations General appearance: alert, other (Marfan-like) Head exam: Present: normocephalic Eye exam: Present: normal appearance Neck exam: Present: normal inspection Respiratory exam: Present: normal lung sounds bilaterally. Absent: chest wall tenderness Cardiovascular Exam: Present: regular rate, normal rhythm, diastolic murmur Expanded Peripheral pulses: 2+: Radial (R), Radial (L), Dorsalis Pedis (R), Dorsalis Pedis (L) GI/Abdominal exam: Present: soft. Absent: distended, tenderness Extremities exam: Present: normal inspection Back exam: Present: other (Severe scoliosis) Neurological exam: Present: alert Psychiatric exam: Present: normal affect, normal mood Skin exam: Present: abrasion (Bilateral hands, patient states she has a new kitten) Course Vital Signs 07/22/19 07/22/19 07/22/19 08:23 08:57 11:07 Temperature 98.0 F Pulse Rate 76 75 69 Respiratory 16 16 18 Rate Blood Pressure 126/62 107/86 107/55 O2 Sat by Pulse 93 L 98 95 Oximetry EKG Findings - EKG Comments: EKG Findings:: Normal sinus rhythm 79. VT 170. QRS 110. QT 412. QTC 472. Right axis. Q wave inversion in lead V1 through V4. Normal QRS. Medical Decision Making - Medical Decision Making Patient reevaluated and updated. Patient is updated on recommendation for admission and further testing including evaluation by cardiology and internal medicine. Patient is made aware that all cause of her symptoms are not been ruled out at this time. Patient is strongly recommended to stay in the hospital several times. Patient is also made aware that she could have worsening symptoms I could lead to heart attack or or other problems in the near future. Patient does demonstrate medical decision making. Patient refuses admission and will leave AGAINST MEDICAL ADVICE. - Lab Data Result diagrams: 07/22/19 08:40 07/22/19 08:40 Lab Results 07/22/19 07/22/19 07/22/19 Range/Units 08:40 08:40 08:40 WBC 8.7 (3.8-10.6) k/uL RBC 4.76 (3.80-5.40) m/uL Hgb 15.6 (11.4-16.0) gm/dL Hct 48.6 H (34.0-46.0) % MCV 102.0 H (80.0-100.0) fL MCH 32.8 (25.0-35.0) pg MCHC 32.1 (31.0-37.0) g/dL RDW 14.0 (11.5-15.5) % Plt Count 392 (150-450) k/uL Neutrophils % 62 % Lymphocytes % 23 % Monocytes % 7 % Eosinophils % 3 % Basophils % 2 % Neutrophils # 5.4 (1.3-7.7) k/uL Lymphocytes # 2.0 (1.0-4.8) k/uL Monocytes # 0.6 (0-1.0) k/uL Eosinophils # 0.3 (0-0.7) k/uL Basophils # 0.2 (0-0.2) k/uL Macrocytosis Slight PT 19.3 H (9.0-12.0) sec INR 2.0 H (<1.2) APTT 38.9 H (22.0-30.0) sec Sodium 141 (137-145) mmol/L Potassium 4.1 (3.5-5.1) mmol/L Chloride 101 (98-107) mmol/L Carbon Dioxide 27 (22-30) mmol/L Anion Gap 13 mmol/L BUN 9 (7-17) mg/dL Creatinine 0.57 (0.52-1.04) mg/dL Est GFR (CKD-EPI)AfAm >90 (>60 ml/min/1.73 sqM) Est GFR (CKD-EPI)NonAf >90 (>60 ml/min/1.73 sqM) Glucose 96 (74-99) mg/dL Calcium 9.5 (8.4-10.2) mg/dL Magnesium 1.7 (1.6-2.3) mg/dL Total Bilirubin 0.7 (0.2-1.3) mg/dL AST 33 (14-36) U/L ALT 15 (9-52) U/L Alkaline Phosphatase 97 (38-126) U/L Creatine Kinase 38 (30-135) U/L Troponin I (0.000-0.034) ng/mL Total Protein 9.4 H (6.3-8.2) g/dL Albumin 5.0 (3.5-5.0) g/dL Amylase 53 (30-110) U/L Lipase 80 (23-300) U/L Urine Color Urine Appearance (Clear) Urine pH (5.0-8.0) Ur Specific [place] (1.001-1.035) Urine Protein (Negative) Urine Glucose (UA) (Negative) Urine Ketones (Negative) Urine Blood (Negative) Urine Nitrite (Negative) Urine Bilirubin (Negative) Urine Urobilinogen (<2.0) mg/dL Ur Leukocyte Esterase (Negative) Urine WBC (0-5) /hpf Ur Squamous Epith Cells (0-4) /hpf Urine Bacteria (None) /hpf Urine Opiates Screen (NotDetected) Ur Oxycodone Screen (NotDetected) Urine Methadone Screen (NotDetected) Ur Propoxyphene Screen (NotDetected) Ur Barbiturates Screen (NotDetected) U Tricyclic Antidepress (NotDetected) Ur Phencyclidine Scrn (NotDetected) Ur Amphetamines Screen (NotDetected) U Methamphetamines Scrn (NotDetected) U Benzodiazepines Scrn (NotDetected) Urine Cocaine Screen (NotDetected) U Marijuana (THC) Screen (NotDetected) 07/22/19 07/22/19 Range/Units 08:40 08:40 WBC (3.8-10.6) k/uL RBC (3.80-5.40) m/uL Hgb (11.4-16.0) gm/dL Hct (34.0-46.0) % MCV (80.0-100.0) fL MCH (25.0-35.0) pg MCHC (31.0-37.0) g/dL RDW (11.5-15.5) % Plt Count (150-450) k/uL Neutrophils % % Lymphocytes % % Monocytes % % Eosinophils % % Basophils % % Neutrophils # (1.3-7.7) k/uL Lymphocytes # (1.0-4.8) k/uL Monocytes # (0-1.0) k/uL Eosinophils # (0-0.7) k/uL Basophils # (0-0.2) k/uL Macrocytosis PT (9.0-12.0) sec INR (<1.2) APTT (22.0-30.0) sec Sodium (137-145) mmol/L Potassium (3.5-5.1) mmol/L Chloride (98-107) mmol/L Carbon Dioxide (22-30) mmol/L Anion Gap mmol/L BUN (7-17) mg/dL Creatinine (0.52-1.04) mg/dL Est GFR (CKD-EPI)AfAm (>60 ml/min/1.73 sqM) Est GFR (CKD-EPI)NonAf (>60 ml/min/1.73 sqM) Glucose (74-99) mg/dL Calcium (8.4-10.2) mg/dL Magnesium (1.6-2.3) mg/dL Total Bilirubin (0.2-1.3) mg/dL AST (14-36) U/L ALT (9-52) U/L Alkaline Phosphatase (38-126) U/L Creatine Kinase (30-135) U/L Troponin I <0.012 (0.000-0.034) ng/mL Total Protein (6.3-8.2) g/dL Albumin (3.5-5.0) g/dL Amylase (30-110) U/L Lipase (23-300) U/L Urine Color Light Yellow Urine Appearance Clear (Clear) Urine pH 6.5 (5.0-8.0) Ur Specific [place] 1.004 (1.001-1.035) Urine Protein Negative (Negative) Urine Glucose (UA) Negative (Negative) Urine Ketones Negative (Negative) Urine Blood Negative (Negative) Urine Nitrite Negative (Negative) Urine Bilirubin Negative (Negative) Urine Urobilinogen <2.0 (<2.0) mg/dL Ur Leukocyte Esterase Small H (Negative) Urine WBC 5 (0-5) /hpf Ur Squamous Epith Cells 2 (0-4) /hpf Urine Bacteria Rare H (None) /hpf Urine Opiates Screen Not Detected (NotDetected) Ur Oxycodone Screen Not Detected (NotDetected) Urine Methadone Screen Not Detected (NotDetected) Ur Propoxyphene Screen Not Detected (NotDetected) Ur Barbiturates Screen Not Detected (NotDetected) U Tricyclic Antidepress Not Detected (NotDetected) Ur Phencyclidine Scrn Not Detected (NotDetected) Ur Amphetamines Screen Not Detected (NotDetected) U Methamphetamines Scrn Not Detected (NotDetected) U Benzodiazepines Scrn Not Detected (NotDetected) Urine Cocaine Screen Not Detected (NotDetected) U Marijuana (THC) Screen Detected H (NotDetected) - Radiology Data Radiology results: report reviewed (Computed tomography scan the chest shows similar findings to prior exam. Postoperative changes. Aortic aneurysm and aortic dissection similar to prior. Coronary artery aneurysm and cardiomegaly. Emphysema. Correlate for pulmonary artery hypertension.) Disposition Clinical Impression: Chest pain Disposition: Left Against Medical Advice Instructions (If sedation given, give patient instructions): Chest Pain (ED) Additional Instructions: You're leaving AGAINST MEDICAL ADVICE. Please follow-up with primary care physician today or tomorrow. Return for increased pain, worsening symptoms or any other concerns. Is patient prescribed a controlled substance at d/c from ED?: No Referrals: [facility] [Primary Care Provider] - 1-2 days Time of Disposition: 11:26 Decision Time: 11:19
[2019-07-22 09:00] LABS: Basophils # (A) 0.2 k/uL (0-0.2); Basophils % (A) 2 %; Eosinophils # (A) 0.3 k/uL (0-0.7); Eosinophils % (A) 3 %; HCT 48.6 % (34.0-46.0); HGB 15.6 gm/dL (11.4-16.0); Lymphocytes % (A) 23 %; MCH 32.8 pg (25.0-35.0); MCHC 32.1 g/dL (31.0-37.0); Macrocytosis Slight; Mean Platelet Volume 7.3; Monocytes # (A) 0.6 k/uL (0-1.0); Monocytes % (A) 7 %; Neutrophils # (A) 5.4 k/uL (1.3-7.7); Neutrophils % (A) 62 %; Platelet Count 392 k/uL (150-450); RBC 4.76 m/uL (3.80-5.40); WBC 8.7 k/uL (3.8-10.6)
[2019-07-22 09:04] LABS: ALT 15 U/L (9-52); AST 33 U/L (14-36); African American GFR (CKD) >90 (>60 ml/min/1.73 sqM); Alkaline Phosphatase 97 U/L (38-126); Amylase 53 U/L (30-110); Anion Gap 13 mmol/L; Blood Urea Nitrogen 9 mg/dL (7-17); Calcium 9.5 mg/dL (8.4-10.2); Carbon Dioxide 27 mmol/L (22-30); Chloride 101 mmol/L (98-107); Creatine Kinase 38 U/L (30-135); Glucose 96 mg/dL (74-99); Magnesium 1.7 mg/dL (1.6-2.3); Non-African American GFR(CKD) >90 (>60 ml/min/1.73 sqM); Potassium 4.1 mmol/L (3.5-5.1); Sodium 141 mmol/L (137-145); Total Bilirubin 0.7 mg/dL (0.2-1.3); Total Protein 9.4 g/dL (6.3-8.2)
[2019-07-22] MEDS ORDERED: ACETAMINOPHEN TAB 500 MG TAB PO STA (09:04)
[2019-07-22 09:13] LABS: Partial Thromboplastin Time 38.9 sec (22.0-30.0); Prothrombin Time 19.3 sec (9.0-12.0)
[2019-07-22 09:38] LABS: Amphetamine Screen,Urine Not Detected (NotDetected); Barbiturate Screen,Urine Not Detected (NotDetected); Benzodiazepines Screen,Urine Not Detected (NotDetected); Cocaine Screen,Urine Not Detected (NotDetected); Methadone Screen, Urine Not Detected (NotDetected); Opiate Screen,Urine Not Detected (NotDetected); Oxycodone Screen, Urine Not Detected (NotDetected); Phencyclidine Screen,Urine Not Detected (NotDetected); Tricyclic Antidepressant,Urine Not Detected (NotDetected); Urn Cannabinoid Scrn Detected (NotDetected)
[2019-07-22 09:44] LABS: Appearance,Urine Clear (Clear); Bilirubin,Urine Negative (Negative); Blood,Urine Negative (Negative); Color,Urine Light Yellow; Glucose,Urine (UA) Negative (Negative); Ketones,Urine Negative (Negative); Leukocyte Esterase,Urine Small (Negative); Nitrite,Urine Negative (Negative); PH, Urine 6.5 (5.0-8.0); Protein,Urine Negative (Negative); Specific Gravity,Urine 1.004 (1.001-1.035); Urobilinogen,Urine <2.0 mg/dL (<2.0)
[2019-07-22 09:56] LABS: WBC,Urine 5 /hpf (0-5)
[2019-07-22 09:57] LABS: Bacteria,Urine Rare /hpf; Squamous Epithelial Cell,Urine 2 /hpf (0-4)
[2019-07-22 11:07] VITALS: BP 107/55; PULSE 69; RESP 18
--- NOTE | 2019-07-22 11:10 | CT ---
EXAMINATION TYPE: CT angio thor/abd pel aorta DATE OF EXAM: 07/22/2019 COMPARISON: Prior exam 07/11/2019 HISTORY: Chest pain and shortness of breath CT DLP: 932.2 mGycm. Automated Exposure Control for Dose Reduction was Utilized. CONTRAST: CT scan of the thorax, abdomen and pelvis is performed with IV Contrast, patient injected with 100 mL of Isovue 370. Exam also performed preintravenous contrast, 3-dimensional reconstructions on an [employer] workstation FINDINGS: Ascending aorta shows a similar appearance. Aneurysm measures approximately 4.4 cm is prese nt at the ascending aorta, postop changes are present as on prior exam and the dissection described o n previous report is again noted with dissection flap coursing towards the origins of the super aorti c branch vessels. Proximal descending aorta shows a caliber change as on prior and measures approxima tely 2.2 cm. Celiac axis, superior mesenteric artery, renal arteries, inferior mesenteric artery, com mon iliac, internal and external iliac arteries are patent. Common femoral, proximal deep and superfi cial femoral arteries are patent. LUNGS: There are emphysematous changes within the lungs. No pleural or pericardial effusion. The lung s are grossly clear, there is no concerning parenchymal mass or nodule identified. There is no pleu ral effusion or pneumothorax seen. The tracheobronchial tree is patent. MEDIASTINUM: There are no greater than 1 cm hilar or mediastinal lymph nodes. No pericardial effusi on is seen. No evident pulmonary embolism. Pulmonary artery is dilated. OTHER: The heart is enlarged as on prior exam. Suspect some pericardial calcifications are present. L eft atrial enlargement is suspected. 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 LIVER/GB: No significant abnormality is appreciated. PANCREAS: No significant abnormality is seen. SPLEEN: Absent as on prior ADRENALS: No significant abnormality is seen. KIDNEYS: Stable in appearance, the left kidney shows areas of cortical thinning likely due to prior s carring or infarction greater than the right kidney BOWEL: No significant abnormality is seen. GENITAL ORGANS: No significant interval change seen. LYMPH NODES: No greater than 1cm abdominal or pelvic lymph nodes are appreciated. 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 Deformity of the patient's chest is again noted OTHER: No significant additional abnormalit y is seen. IMPRESSION: Findings are similar to prior exam. Postop changes, aortic aneurysm, aortic dissection ch davey similar to prior exam. Coronary artery aneurysm and cardiomegaly as described. Emphysema, relate for pulmonary artery hypertension.
[2019-07-22] MEDS ORDERED: NITROGLYCERIN SL TABS 0.4 MG TAB SUBLINGUAL PRN (11:19)
[2019-07-22] MEDS ORDERED: NITROGLYCERIN OINT 1 INCH/GM PACKET TOPICAL SCH (12:00)
[2019-07-23] MEDS ORDERED: ASPIRIN 325 MG TAB PO SCH (09:00)
== END 2019-07-22 11:31 | disposition left against medical advice (07) ==
LOC: EC 08:22
DX: R07.89 Other chest pain (principal); I38 Endocarditis, valve unspecified; R11.0 Nausea; M41.9 Scoliosis, unspecified; S60.512A Abrasion of left hand, initial encounter; S60.511A Abrasion of right hand, initial encounter; Q87.40 Marfan syndrome, unspecified; Q07.00 Arnold-Chiari syndrome without spina bifida or hydrocephalus; I50.9 Heart failure, unspecified; M19.90 Unspecified osteoarthritis, unspecified site; F41.9 Anxiety disorder, unspecified; F17.200 Nicotine dependence, unspecified, uncomplicated; Z88.0 Allergy status to penicillin; Z88.6 Allergy status to analgesic agent; Z88.8 Allergy status to other drugs, medicaments and biological substances; Z79.01 Long term (current) use of anticoagulants; Z79.82 Long term (current) use of aspirin; Z79.899 Other long term (current) drug therapy; Z86.73 Personal history of transient ischemic attack (TIA), and cerebral infarction without residual deficits; Z86.14 Personal history of Methicillin resistant Staphylococcus aureus infection; Z95.1 Presence of aortocoronary bypass graft; Z95.2 Presence of prosthetic heart valve; X58.XXXA Exposure to other specified factors, initial encounter; Z53.20 Procedure and treatment not carried out because of patient's decision for unspecified reasons
CPT/HCPCS: 36415; 80053; 82150; 82550; 83690; 83735; 84484; 85025; 85610; 85730; 81001; 80306; 71275; 74174; 99285; 96374; J2405; Q9967

== ENCOUNTER 2019-07-22 12:47 | Observation (INO) | payer OTHER ==
[2019-07-22] MEDS ORDERED: ASPIRIN 81 MG PO STA (14:05)
[2019-07-22] MEDS ORDERED: NITROGLYCERIN SL TABS 0.4 MG TAB SUBLINGUAL STA ×3 (14:05)
--- NOTE | 2019-07-22 14:08 | ED ---
General Adult HPI - General Chief complaint: Chest Pain Stated complaint: CHEST PAIN Time Seen by Provider: 07/22/19 13:32 Source: patient, RN notes reviewed, old records reviewed Mode of arrival: ambulatory Limitations: no limitations - History of Present Illness Initial comments: Patient is a pleasant 34-year-old female returns emergency department co mplaining of chest discomfort. Patient states symptoms are similar to when she left AGAINST MEDICAL ADVICE earlier today. Patient states discomfort is sharp central. Patient has some associated nausea. No radiation. No dyspnea. Patient has felt a little bit sweaty. Patient does have history of similar symptoms previously. No leg pain or leg swelling. - Related Data Home Medications Medication Instructions Recorded Confirmed Cholecalciferol [Vitamin D3 (25 5,000 unit PO DAILY 05/18/18 07/22/19 Mcg = 1000 Iu)] Metoprolol Tartrate 25 mg PO BID 06/04/18 07/22/19 DULoxetine HCL [Cymbalta] 60 mg PO BID 06/14/18 07/22/19 Ferrous Sulfate [Iron (65 MG 325 mg PO DAILY 06/14/18 07/22/19 Elemental)] Albuterol Inhaler [Ventolin Hfa 2 puff INHALATION RT-Q8H PRN 09/17/18 07/22/19 Inhaler] OLANZapine [ZyPREXA] 15 mg PO HS 04/19/19 07/22/19 Melatonin 3 mg PO HS 05/19/19 07/22/19 Carvedilol [Coreg] 6.25 mg PO BID 06/27/19 07/22/19 Cyanocobalamin (Vitamin B-12) 1,000 mcg PO DAILY 06/27/19 07/22/19 [Vitamin B-12] Darifenacin Hydrobromide [Enablex] 7.5 mg PO DAILY 06/27/19 07/22/19 Warfarin Sodium 4 mg PO HS 07/01/19 07/22/19 Aspirin EC [Ecotrin Low Dose] 81 mg PO DAILY 07/22/19 07/22/19 Gabapentin [Neurontin] 400 mg PO TID 07/22/19 07/22/19 Promethazine 6.25MG/5Ml [Phenergan 6.25 mg PO Q8H PRN 07/22/19 07/22/19 Syrup] Trospium Chloride 20 mg PO BID 07/22/19 07/22/19 Allergies Allergy/AdvReac Type Severity Reaction Status Date / Time chlordiazepoxide HCl Allergy SEE COMMENT Verified 07/22/19 13:04 [From Librium] Penicillins Allergy Rash/Hives Verified 07/22/19 13:04 ketorolac [From Toradol] AdvReac ANXIETY Verified 07/22/19 13:04 prochlorperazine edisylate AdvReac PANIC Verified 07/22/19 13:04 [From Compazine] ATTACK prochlorperazine maleate AdvReac PANIC Verified 07/22/19 13:04 [From Compazine] ATTACK Review of Systems ROS Statement: Those systems with pertinent positive or pertinent negative responses have been documented in the HPI. ROS Other: All systems not noted in ROS Statement are negative. Constitutional: Denies: fever Eyes: Denies: eye pain ENT: Denies: ear pain Respiratory: Denies: cough, dyspnea Cardiovascular: Reports: chest pain Endocrine: Denies: fatigue Gastrointestinal: Reports: nausea. Denies: abdominal pain Genitourinary: Denies: dysuria Musculoskeletal: Denies: back pain Skin: Denies: rash Neurological: Denies: weakness Past Medical History Past Medical History: Heart Failure, CVA/TIA, Liver Disease, Neurologic Disor wilmer, Osteoarthritis (OA), Pneumonia Additional Past Medical History / Comment(s): Stroke with residual right-sided weakness 2017, TIAs, marfan's syndrome, ArnoldChiari malformation, spontaneous pneumothorax x 21, scoliosis and pectus excavatum secondary to Marfan's, chronic back pain, bilateral leg pain, gastric ulcers, sinus infections, STATED HAS POOR CIRCULATION, viral meningitis, HEP C. 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 spleenectomy 2018, L upper lobectomy d/t pneumothoraxs. Past Anesthesia/Blood Transfusion Reactions: No Reported Reaction Past Psychological History: Anxiety Smoking Status: Current every day smoker Past Alcohol Use History: None Reported, Occasional Past Drug Use History: Heroin, Marijuana - Past Family History Father Additional Family Medical History / Comment(s): Father is with history of AIDS. Mother Family Medical History: Diabetes Mellitus Additional Family Medical History / Comment(s): Mother at age 49 from liver cirrhosis secondary to alcohol abuse. Brother(s) Additional Family Medical History / Comment(s): Patient has one brother with no major medical problems. General Exam Limitations: no limitations General appearance: alert, in no apparent distress Head exam: Present: atraumatic Eye exam: Present: normal appearance Neck exam: Present: normal inspection Respiratory exam: Present: normal lung sounds bilaterally. Absent: chest wall tenderness Cardiovascular Exam: Present: regular rate, normal rhythm, diastolic murmur (Similar to previous) Expanded Peripheral pulses: 2+: Radial (R), Radial (L), Posterior Tibialis (R), Posterior Tibialis (L), Dorsalis Pedis (R), Dorsalis Pedis (L) GI/Abdominal exam: Present: soft. Absent: tenderness Extremities exam: Present: normal inspection. Absent: pedal edema, calf tenderness Back exam: Present: other (Severe scoliosis) Neurological exam: Present: alert Psychiatric exam: Present: normal affect, normal mood Skin exam: Present: normal color Course Vital Signs 07/22/19 13:04 Temperature 97.9 F Pulse Rate 71 Respiratory 18 Rate Blood Pressure 125/75 O2 Sat by Pulse 98 Oximetry EKG Findings - EKG Comments: EKG Findings:: Sinus rhythm at 65. Premature atrial, this is present. [place] 162. QRS 114. QT 484. QTC 472. Right axis. Normal QRS. Nonspecific ST-T. Medical Decision Making - Medical Decision Making Patient reevaluated and resting comfortably in bed. Patient updated on results and plan. Case again discussed with Dr. chao, who will admit covering for hospital call. - Lab Data Result diagrams: 07/22/19 14:55 07/22/19 14:55 Lab Results 07/22/19 07/22/19 07/22/19 Range/Units 14:55 14:55 14:55 WBC 12.9 H (3.8-10.6) k/uL RBC 4.31 (3.80-5.40) m/uL Hgb 14.2 (11.4-16.0) gm/dL Hct 43.7 (34.0-46.0) % MCV 101.2 H (80.0-100.0) fL MCH 32.8 (25.0-35.0) pg MCHC 32.4 (31.0-37.0) g/dL RDW 13.8 (11.5-15.5) % Plt Count 355 (150-450) k/uL Neutrophils % 70 % Lymphocytes % 21 % Monocytes % 5 % Eosinophils % 2 % Basophils % 1 % Neutrophils # 9.0 H (1.3-7.7) k/uL Lymphocytes # 2.7 (1.0-4.8) k/uL Monocytes # 0.7 (0-1.0) k/uL Eosinophils # 0.2 (0-0.7) k/uL Basophils # 0.1 (0-0.2) k/uL Macrocytosis Slight PT 18.7 H (9.0-12.0) sec INR 1.9 H (<1.2) APTT 36.7 H (22.0-30.0) sec Sodium 137 (137-145) mmol/L Potassium 4.4 (3.5-5.1) mmol/L Chloride 102 (98-107) mmol/L Carbon Dioxide 28 (22-30) mmol/L Anion Gap 7 mmol/L BUN 8 (7-17) mg/dL Creatinine 0.58 (0.52-1.04) mg/dL Est GFR (CKD-EPI)AfAm >90 (>60 ml/min/1.73 sqM) Est GFR (CKD-EPI)NonAf >90 (>60 ml/min/1.73 sqM) Glucose 82 (74-99) mg/dL Calcium 9.4 (8.4-10.2) mg/dL Magnesium 1.8 (1.6-2.3) mg/dL Total Bilirubin 0.6 (0.2-1.3) mg/dL AST 29 (14-36) U/L ALT 18 (9-52) U/L Alkaline Phosphatase 99 (38-126) U/L Creatine Kinase 36 (30-135) U/L Troponin I (0.000-0.034) ng/mL Total Protein 7.9 (6.3-8.2) g/dL Albumin 4.3 (3.5-5.0) g/dL 07/22/19 Range/Units 14:55 WBC (3.8-10.6) k/uL RBC (3.80-5.40) m/uL Hgb (11.4-16.0) gm/dL Hct (34.0-46.0) % MCV (80.0-100.0) fL MCH (25.0-35.0) pg MCHC (31.0-37.0) g/dL RDW (11.5-15.5) % Plt Count (150-450) k/uL Neutrophils % % Lymphocytes % % Monocytes % % Eosinophils % % Basophils % % Neutrophils # (1.3-7.7) k/uL Lymphocytes # (1.0-4.8) k/uL Monocytes # (0-1.0) k/uL Eosinophils # (0-0.7) k/uL Basophils # (0-0.2) k/uL Macrocytosis PT (9.0-12.0) sec INR (<1.2) APTT (22.0-30.0) sec Sodium (137-145) mmol/L Potassium (3.5-5.1) mmol/L Chloride (98-107) mmol/L Carbon Dioxide (22-30) mmol/L Anion Gap mmol/L BUN (7-17) mg/dL Creatinine (0.52-1.04) mg/dL Est GFR (CKD-EPI)AfAm (>60 ml/min/1.73 sqM) Est GFR (CKD-EPI)NonAf (>60 ml/min/1.73 sqM) Glucose (74-99) mg/dL Calcium (8.4-10.2) mg/dL Magnesium (1.6-2.3) mg/dL Total Bilirubin (0.2-1.3) mg/dL AST (14-36) U/L ALT (9-52) U/L Alkaline Phosphatase (38-126) U/L Creatine Kinase (30-135) U/L Troponin I <0.012 (0.000-0.034) ng/mL Total Protein (6.3-8.2) g/dL Albumin (3.5-5.0) g/dL - Radiology Data Radiology results: image reviewed (Chest x-ray shows cardiomegaly, COPD, panic aorta. Scoliosis. Unchanged. No acute process.) Disposition Clinical Impression: Chest pain Disposition: ADMITTED IP TO THIS HOSP Is patient prescribed a controlled substance at d/c from ED?: No Referrals: [facility] [Primary Care Provider] - 1-2 days Decision Time: 16:30
--- NOTE | 2019-07-22 14:49 | XR ---
EXAMINATION TYPE: XR chest 2V DATE OF EXAM: 07/22/2019 COMPARISON: 07/01/2019 HISTORY: 34-year-old female with chest pain TECHNIQUE: PA and lateral views FINDINGS: Partially visualized plate and screw fixation proximal right humerus. Extensive scoliotic deformity o f the thoracic spine. Bilateral nipple shadows. Ectatic thoracic aorta. Median sternotomy wires are p resent. Heart mildly enlarged. Marked focal lower thoracic kyphosis. Pectus carinatum. No consolidati on or pleural effusion. Some hyperinflation is also noted. IMPRESSION: Cardiomegaly, COPD, and ectatic thoracic aorta with underlying scoliosis. Overall unchanged. No acute process seen.
[2019-07-22 15:18] LABS: ALT 18 U/L (9-52); AST 29 U/L (14-36); African American GFR (CKD) >90 (>60 ml/min/1.73 sqM); Albumin 4.3 g/dL (3.5-5.0); Alkaline Phosphatase 99 U/L (38-126); Anion Gap 7 mmol/L; Blood Urea Nitrogen 8 mg/dL (7-17); Calcium 9.4 mg/dL (8.4-10.2); Carbon Dioxide 28 mmol/L (22-30); Chloride 102 mmol/L (98-107); Creatine Kinase 36 U/L (30-135); Glucose 82 mg/dL (74-99); Magnesium 1.8 mg/dL (1.6-2.3); Non-African American GFR(CKD) >90 (>60 ml/min/1.73 sqM); Potassium 4.4 mmol/L (3.5-5.1); Sodium 137 mmol/L (137-145); Total Bilirubin 0.6 mg/dL (0.2-1.3); Total Protein 7.9 g/dL (6.3-8.2)
[2019-07-22 15:19] LABS: INR 1.9 (<1.2); Partial Thromboplastin Time 36.7 sec (22.0-30.0); Prothrombin Time 18.7 sec (9.0-12.0)
[2019-07-22 15:38] LABS: Basophils # (A) 0.1 k/uL (0-0.2); Basophils % (A) 1 %; Eosinophils # (A) 0.2 k/uL (0-0.7); Eosinophils % (A) 2 %; HCT 43.7 % (34.0-46.0); HGB 14.2 gm/dL (11.4-16.0); Lymphocytes # (A) 2.7 k/uL (1.0-4.8); Lymphocytes % (A) 21 %; MCH 32.8 pg (25.0-35.0); MCHC 32.4 g/dL (31.0-37.0); MCV 101.2 fL (80.0-100.0); Macrocytosis Slight; Mean Platelet Volume 6.7; Monocytes # (A) 0.7 k/uL (0-1.0); Monocytes % (A) 5 %; Neutrophils % (A) 70 %; Platelet Count 355 k/uL (150-450); RBC 4.31 m/uL (3.80-5.40); RDW 13.8 % (11.5-15.5); WBC 12.9 k/uL (3.8-10.6)
[2019-07-22] MEDS ORDERED: NITROGLYCERIN SL TABS 0.4 MG TAB SUBLINGUAL PRN (16:30)
--- NOTE | 2019-07-22 17:52 | P.HPIM ---
History of Present Illness H&P Date: 07/22/19 Chief Complaint: chest pain Patient is a 34-year-old female with a past medical history of Marfan syndrome requiring aortic and mitral valve replacement with the child, Arnold- Chiari malformation, pectus excavatum, hepatitis C, and history of opiate addiction who presented to the ER with complaint of chest pain. Patient has a history of a known chronic aortic dissection. She was recently hospitalized here in June 2019. She was recently seen in the hospital and had a CT of the chest which revealed an aortic dissection in the ascending aortic aneurysm exte nding into the great arteries. She was subsequently transferred to [facility] where they recommended medical therapy and no surgery. Per the patient they stated that her life expectancy was one year unless with optimize blood pressure control she is not a surgical candidate due to the severity of her valvular disease and her history of Marfan's syndrome. Initially she presented to the ER with complaints of chest pain on 07/22 a left AGAINST MEDICAL ADVICE but however she represented to the ER again later that day. On arrival her vital signs are within normal limits. INR was 1.9, white blood cell count 12.9. Chest x-ray showed cardiomegaly, COPD and ectatic thoracic aorta. She u nderwent a CT of the chest, abdomen, and pelvis. This demonstrated her known aortic aneurysm with aortic dissection that was unchanged compared to prior exam, which was completed on 06/10/19. Orders were written for nitro in the ER however patient refuses to history of a headache. Arrangements were made for admission for chest pain. Patient seen and examined at bedside. She reports that since she's been seen at [facility] for her aortic dissection she has been having chest pain. Over the last week it has significantly increased in nature. The outward pressure. She reports that she is not taking any shortness of breath, she is slightly lightheaded today and having some nausea, no unusual numbness or tingling down into her arms. She's had a chronic cough that she's had her aortic dissection which has been nonproductive and is unchanged. She denies any wheezing. She does feel overall fatigued and exhausted. She can't leave her house at all at this point due to her exhaustion. She states that her pain has become so severe over the last week that she has been unable to sleep. She reports that she just wants to be kept comfortable and that she was given a 1 year at best prognosis. She has been wanting to take some type of pain medication for the pain. We discussed her depression and she feels that that is overall at baseline she's been following with [facility] and taking her medications as prescribed. She denies any issues with suicidal or homicidal ideation. She reports she has been her opiate dependency in the past. She had been thinking about starting on Suboxone, however when she got the diagnosis of her aortic dissection this was no longer on the table. She reports that [facility] has rendered her care over to Dr. Calles. She is not a surgical candidate secondary to her bad valvular heart disease. She just wants to be kept comfortable at t his point in time. She is only taking gabapentin for pain. She has not seen Dr. Calles in the outpatient setting since being discharged from [facility]. Review of Systems Pertinent positives and negatives as discussed in HPI, a complete review of systems was performed and all other systems are negative. Past Medical History Past Medical History: Heart Failure, CVA/TIA, Liver Disease, Neurologic Disorder, Osteoarthritis (OA), Pneumonia Additional Past Medical History / Comment(s): Stroke with residual right-sided weakness 2017, TIAs, marfan's syndrome, ArnoldChiari malformation, spontaneous pneumothorax x 21, scoliosis and pectus excavatum secondary to Marfan's, chronic back pain, bilateral leg pain, gastric ulcers, sinus infections, STATED HAS POOR CIRCULATION, viral meningitis, HEP C. 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 spleenectomy 2018, L upper lobectomy d/t pneumothoraxs. Past Anesthesia/Blood Transfusion Reactions: No Reported Reaction Past Psychological History: Anxiety Smoking Status: Current every day smoker Past Alcohol Use History: None Reported, Occasional Past Drug Use History: Heroin, Marijuana Additional History: Currently living with her boyfriend, not using any street drugs, still smoking 1 pack per day. No assistive devices. - Past Family History Father Additional Family Medical History / Comment(s): Father is with history of AIDS. Mother Family Medical History: Diabetes Mellitus Additional Family Medical History / Comment(s): Mother at age 49 from liver cirrhosis secondary to alcohol abuse. Brother(s) Additional Family Medical History / Comment(s): Patient has one brother with no major medical problems. Medications and Allergies Home Medications Medication Instructions Recorded Confirmed Type Cholecalciferol [Vitamin D3 (25 5,000 unit PO DAILY 05/18/18 07/22/19 History Mcg = 1000 Iu)] Metoprolol Tartrate 25 mg PO BID 06/04/18 07/22/19 History DULoxetine HCL [Cymbalta] 60 mg PO BID 06/14/18 07/22/19 History Ferrous Sulfate [Iron (65 MG 325 mg PO DAILY 06/14/18 07/22/19 History Elemental)] Albuterol Inhaler [Ventolin Hfa 2 puff INHALATION RT-Q8H PRN 09/17/18 07/22/19 History Inhaler] OLANZapine [ZyPREXA] 15 mg PO HS 04/19/19 07/22/19 History Melatonin 3 mg PO HS 05/19/19 07/22/19 History Carvedilol [Coreg] 6.25 mg PO BID 06/27/19 07/22/19 History Cyanocobalamin (Vitamin B-12) 1,000 mcg PO DAILY 06/27/19 07/22/19 History [Vitamin B-12] Darifenacin Hydrobromide [Enablex] 7.5 mg PO DAILY 06/27/19 07/22/19 History Warfarin Sodium 4 mg PO HS 07/01/19 07/22/19 History Aspirin EC [Ecotrin Low Dose] 81 mg PO DAILY 07/22/19 07/22/19 History Gabapentin [Neurontin] 400 mg PO TID 07/22/19 07/22/19 History Promethazine 6.25MG/5Ml [Phenergan 6.25 mg PO Q8H PRN 07/22/19 07/22/19 History Syrup] Trospium Chloride 20 mg PO BID 07/22/19 07/22/19 History Allergies Allergy/AdvReac Type Severity Reaction Status Date / Time chlordiazepoxide HCl Allergy SEE COMMENT Verified 07/22/19 13:04 [From Librium] Penicillins Allergy Rash/Hives Verified 07/22/19 13:04 ketorolac [From Toradol] AdvReac ANXIETY Verified 07/22/19 13:04 prochlorperazine edisylate AdvReac PANIC Verified 07/22/19 13:04 [From Compazine] ATTACK prochlorperazine maleate AdvReac PANIC Verified 07/22/19 13:04 [From Compazine] ATTACK Physical Exam Osteopathic Statement: *. No significant issues noted on an osteopathic structural exam other than those noted in the History and Physical/Consult. Vitals: Vital Signs Temp Pulse Resp BP Pulse Ox 07/22/19 13:04 97.9 F 71 18 125/75 98 Intake and Output 07/22/19 07/22/19 07/22/19 06:59 14:59 22:59 Other: Weight 47.174 kg General: Chronically ill-appearing, cachectic, appears older than stated age, temporal wasting Derm: multiple lacerations on hands and forearms (states due to cats), no unusual ecchymoses, warm, dry Head: atraumatic, normocephalic, symmetric Eyes: EOMI, no lid lag, anicteric sclera, pupils equal round reactive to light ENT: Nose and ears atraumatic, no thrush, no pharyngeal erythema Neck: No thyromegaly, no cervical lymphadenopathy, trachea midline, supple Mouth: no lip lesion, mucus membranes moist Cardiovascular: S1S2 reg, with mecahnical mid systolic click, positive posterior tibial pulse bilateral, no edema, capillary refill less than 2 seconds, pectus excavatum Lungs: CTA bilateral, no rhonchi, no rales , no accessory muscle use Abdominal: soft, nontender to palpation, no guarding, no appreciable organomegaly, normal bowel sounds Ext: Severe kyphosis of the spine, no gross muscle atrophy, muscle strength 5 out of 5 in all 4 extremities grossly, no contractures, Neuro: CN II-XI grossly intact, light touch intact all 4 extremities, finger to nose within normal limits, Psych: Alert, oriented, appropriate affect Results CBC & Chem 7: 07/22/19 14:55 07/22/19 14:55 Labs: Abnormal Lab Results - Last 24 Hours (Table) 07/22/19 07/22/19 Range/Units 14:55 14:55 WBC 12.9 H (3.8-10.6) k/uL MCV 101.2 H (80.0-100.0) fL Neutrophils # 9.0 H (1.3-7.7) k/uL PT 18.7 H (9.0-12.0) sec INR 1.9 H (<1.2) APTT 36.7 H (22.0-30.0) sec Chest x-ray: report reviewed Thrombosis Risk Factor Assmnt - DVT/VTE Prophylaxis DVT/VTE Prophylaxis: Pharmacologic Prophylaxis ordered Assessment and Plan Assessment: Chest pain, Acute on Chronic - Atypical in origin - trend troponins - Aortic dissection unchanged on CTA of the aorta - D/W patient fear of starting narcotics due to hx of abuse, patient is willing to take the risks - Tele - Follow BP closely - no ASA Chronic aortic dissection per patient - obtain records from [facility] to see patients over all prognosis - Maintain SBP <90 - Follow tele and BP - Consult cardio Coumadin use due mechanical heart valve, subtherapeutic - INR in AM - COumadin 4 mg tonight Leukocytosis - undetermined etiology, no specific symptoms - repeat CBC in AM Depression - Continue home meds - Patient denies suicidal ideation Marfans syndroms - symptomatic control with norco and gabapentin Chronic: Hep C TIA Arnold-CHiari malformation Scoliosis Gastric ulcers The patient is placed in observation with an anticipated less than 2 midnight stay for evaluation of chest pain due to chronic chest deformities . Surrogate decision-maker: Had court appointed guardian Maggie at [facility] guardians CODE STATUS:Full by default DVT prophylaxis: Coumadin Discussed with: Patient, nursing, ED physician Anticipated discharge date: 24-[address]: home A total of 45 minutes was spent on the care of this complex patient more than 50% of the time was spent in counseling and care coordination.
[2019-07-22] MEDS ORDERED: ONDANSETRON 4 MG/2 ML VIAL IVP PRN (17:56)
[2019-07-22] MEDS ORDERED: NALOXONE 0.4 MG/ML 1 ML VIAL IV PRN (17:56)
[2019-07-22] MEDS ORDERED: MELATONIN 3 MG TABLET PO PRN (17:56)
[2019-07-22] MEDS ORDERED: NICOTINE POLACRILEX 2 MG GUM BUCCAL PRN (17:56)
[2019-07-22] MEDS ORDERED: MORPHINE SULFATE 2 MG/ML SYRINGE IV PRN (17:56)
[2019-07-22] MEDS ORDERED: ACETAMINOPHEN TAB 325 MG TAB PO PRN (17:56)
[2019-07-22] MEDS ORDERED: PROMETHAZINE HCL 6.25 MG/5 ML CUP PO PRN (17:58)
[2019-07-22] MEDS ORDERED: ALBUTEROL NEBULIZED 2.5 MG/3 ML INHALATION PRN (17:58)
[2019-07-22] MEDS ORDERED: WARFARIN 2 MG TAB PO SCH (18:30)
[2019-07-22] MEDS: HYDROcodone/APAP 5-325MG 1 EACH TAB PO PRN (19:06)
[2019-07-22] MEDS: ALPRAZolam 0.25 MG TAB PO PRN (19:06)
[2019-07-22] MEDS: NITROGLYCERIN OINT 1 INCH/GM PACKET TOPICAL SCH (19:07)
[2019-07-22] MEDS ORDERED: OLANZapine 5 MG TAB PO SCH (21:00)
[2019-07-22] MEDS ORDERED: MELATONIN 3 MG TABLET PO SCH (21:00)
[2019-07-22] MEDS ORDERED: CARVEDILOL 6.25 MG TAB PO SCH (21:00)
[2019-07-22] MEDS: METOPROLOL TARTRATE 25 MG TAB PO SCH (23:23)
[2019-07-22] MEDS: DULoxetine HCL 60 MG CAPSULE.DR PO SCH (23:23)
[2019-07-22] MEDS: TROSPIUM CHLORIDE 20 MG TABLET PO SCH (23:23)
[2019-07-22] MEDS: GABAPENTIN 400 MG CAP PO SCH (23:23)
[2019-07-23] MEDS: HYDROcodone/APAP 5-325MG 1 EACH TAB PO PRN ×2 (00:10→08:56)
[2019-07-23] MEDS: NITROGLYCERIN OINT 1 INCH/GM PACKET TOPICAL SCH (01:47)
[2019-07-23 04:23] LABS: Basophils # (A) 0.2 k/uL (0-0.2); Basophils % (A) 2 %; Eosinophils # (A) 0.6 k/uL (0-0.7); Eosinophils % (A) 9 %; HCT 41.7 % (34.0-46.0); HGB 13.2 gm/dL (11.4-16.0); Lymphocytes # (A) 2.7 k/uL (1.0-4.8); Lymphocytes % (A) 38 %; MCH 32.3 pg (25.0-35.0); MCHC 31.6 g/dL (31.0-37.0); MCV 102.4 fL (80.0-100.0); Macrocytosis Slight; Mean Platelet Volume 7.2; Monocytes # (A) 0.7 k/uL (0-1.0); Monocytes % (A) 9 %; Neutrophils # (A) 2.8 k/uL (1.3-7.7); Neutrophils % (A) 40 %; Platelet Count 332 k/uL (150-450); RBC 4.08 m/uL (3.80-5.40); RDW 13.9 % (11.5-15.5); WBC 7.1 k/uL (3.8-10.6)
[2019-07-23 04:28] LABS: INR 2.1 (<1.2); Prothrombin Time 20.2 sec (9.0-12.0)
[2019-07-23 04:34] LABS: African American GFR (CKD) >90 (>60 ml/min/1.73 sqM); Anion Gap 3 mmol/L; Blood Urea Nitrogen 7 mg/dL (7-17); Calcium 8.7 mg/dL (8.4-10.2); Carbon Dioxide 28 mmol/L (22-30); Chloride 106 mmol/L (98-107); Cholesterol 177 mg/dL (<200); Glucose 79 mg/dL (74-99); HDL Cholesterol 43 mg/dL (40-60); LDL Cholesterol,Calculated 116 mg/dL (0-99); Magnesium 1.8 mg/dL (1.6-2.3); Non-African American GFR(CKD) >90 (>60 ml/min/1.73 sqM); Potassium 3.9 mmol/L (3.5-5.1); Sodium 137 mmol/L (137-145); Triglycerides 89 mg/dL (<150)
[2019-07-23 07:23] VITALS: TEMP 97.5
[2019-07-23] MEDS: GABAPENTIN 400 MG CAP PO SCH (08:54)
[2019-07-23] MEDS: TROSPIUM CHLORIDE 20 MG TABLET PO SCH (08:55)
[2019-07-23] MEDS: DULoxetine HCL 60 MG CAPSULE.DR PO SCH (08:55)
[2019-07-23] MEDS: METOPROLOL TARTRATE 25 MG TAB PO SCH (08:55)
[2019-07-23] MEDS ORDERED: CYANOCOBALAMIN 500 MCG TAB PO SCH (09:00)
[2019-07-23] MEDS ORDERED: ASPIRIN 325 MG TAB PO SCH (09:00)
[2019-07-23] MEDS ORDERED: ASPIRIN 81 MG PO SCH (09:00)
[2019-07-23] MEDS ORDERED: CHOLECALCIFEROL 1,000 UNIT TAB PO SCH (09:00)
[2019-07-23] MEDS ORDERED: FERROUS SULFATE 325 MG TAB PO SCH (09:00)
[2019-07-23] MEDS: ALPRAZolam 0.25 MG TAB PO PRN (09:05)
[2019-07-23 10:57] VITALS: BP 94/67; PULSE 79; RESP 16
[2019-07-23] MEDS ORDERED: HYDROcodone/APAP 10-325MG 1 EACH TAB PO PRN (11:21)
--- NOTE | 2019-07-23 14:01 | P.CRDCN ---
History of Present Illness History of present illness: HISTORY OF PRESENTING ILLNESS This is a pleasant 34-year-old female past medical history significant for Marfan's syndrom, chronic aortic dissection s/p repair at the age of 10[facility], chronic systolic and diastolic heart failure, hepatitis C and former IV drug abuse. She presented with chest pain. She follows in the office with Dr. Briggs. We have been asked to see him in consultation for chest pain. She is seen and examined sitting up in bed in no acute distress. She states she is having pain in her chest on the left side that radiates through to her back. The pain is worse with deep inspiration and movement of her torso. No associated with exertion or activity. She was recently here for similar chest pain and transferred to [place] secondary to chronic aortic dissection. She was evaluated there and deemed not a surgical candidate. CTA repeated on this admission revealed chronic ascending aneurysm 4.4 cm with dissection flap coursing towards the origin of the super aortic branch. Proximal descending arota measures 2.2 cm. No PE, dilated pulmonary artery and cardiomegaly with pericardial calcifications. DIAGNOSTICS EKG reveals sinus mechanism with PAC's, right axis deviation, T-wave inversion anteriorly and non-specific ST abnormalities. No change from previous. Chest xray reveals cardiomegaly, COPD and ectatic thoracic aorta with underlying scoliosis. No acute cardiopulmonary process. Laboratory reviewed, WBC on admission 12.9 and repeat today 7.1, hemoglobin 13.2, platelets 332, INR 2.1, sodium 137, potassium 3.9, creatinine 0.53, magnesium 1.8, cardiac enzymes negative 3, LDL 116. Current cardiac medications include Coumadin, metoprolol 25 mg twice a day and aspirin 81 mg daily. Most recent echocardiogram obtained June 2019 reveals impaired LV systolic function with ejection fraction 40-45%, paradoxical septal wall motion, grade 2 diastolic dysfunction, severely dilated left atrium, normally functioning mechanical valve is a mean gradient of 13 mmHg, severe mitral regurgitation, mitral valve prolapse, mild tricuspid regurgitation. REVIEW OF SYSTEMS At the time of my exam: CONSTITUTIONAL: Denies fever or chills. CARDIOVASCULAR: Complains of pleuritic chest pain and shortness of breath. Denies orthopnea, PND or palpitations. RESPIRATORY: Denies cough. GASTROINTESTINAL: Denies abdominal pain, diarrhea, constipation, nausea or vomiting. MUSCULOSKELETAL: Denies myalgias. NEUROLOGIC: Denies numbness, tingling or weakness. ENDOCRINE: Denies fatigue, weight change, polydipsia or polyurina. GENITOURINARY: Denies burning, hematuria or urgency with micturation. HEMATOLOGIC: Denies history of anemia or bleeding. PHYSICAL EXAMINATION Blood pressure 108/72 heart rate 72 afebrile and maintaining oxygen saturaiton on room air. CONSTITUTIONAL: No apparent distress. Frail. HEENT: Head is normocephalic. Pupils are equal, round. Sclerae anicteric. Mucous membranes of the mouth are moist. No JVD. No carotid bruit. CHEST EXAMINATION: Lungs are clear to auscultation. Mild chest wall tenderness is noted on palpation and with deep breathing. HEART EXAMINATION: Regular rate and rhythm. S1, S2 heard. Mechanical valve click at the base, systolic ejection murmur at the left sternal border, no g allops or rub. ABDOMEN: Soft, nontender. Positive bowel sounds. EXTREMITIES: 2+ peripheral pulses, no lower extremity edema and no calf tenderness. NEUROLOGIC EXAMINATION: Patient is awake, alert and oriented x3. ASSESSMENT Chest pain, pleuritic. An acute coronary event has been ruled out. Chronic mixed diastolic and systolic heart failure, currently euvolemic Marfan's syndrome Chronic aortic dissection, stable on recent CT Mechanical aortic valve on long-term anticoagulation Frail, BMI 14 History of IV drug use in the past PLAN Pain is atypical for angina, an acute event has been ruled out. Optimize medical therapy. She has both coreg and lopressor listed on home meds however she states she currently is taking lopressor. Will continue the same. No FROYLAN or ARB due to low blood pressure. Dr. Palmer is discussing palliative care with the patient and her legal guardian. This is a reasonable discussion given her condition. Follow up with Dr. Briggs in the office in 1-2 weeks. Thank you kindly for this consultation. Nurse Practitioner note has been reviewed, I agree with a documented findings and plan of care. Patient was seen and examined. stabbing chest pain in the mid-sternal region radiated through to the back. no associated symptoms. lasted all day non pleuritic. no reproducible. Past Medical History Past Medical History: Heart Failure, CVA/TIA, Liver Disease, Neurologic Disorder, Osteoarthritis (OA), Pneumonia Additional Past Medical History / Comment(s): Stroke with residual right-sided weakness 2017, TIAs, marfan's syndrome, ArnoldChiari malformation, spontaneous pneumothorax x 21, scoliosis and pectus excavatum secondary to Marfan's, chronic back pain, bilateral leg pain, gastric ulcers, sinus infections, STATED HAS POOR CIRCULATION, viral meningitis, HEP C. 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 spleenectomy 2018, L upper lobectomy d/t pneumothoraxs. Past Anesthesia/Blood Transfusion Reactions: No Reported Reaction Past Psychological History: Anxiety Additional Psychological History / Comment(s): Pt resides in an apartment. She has a public guardian. Pt uses no assistive device. She states she gets to appts by bus. Pt is disabled. Smoking Status: Current every day smoker Past Alcohol Use History: None Reported, Occasional Additional Past Alcohol Use History / Comment(s): Patient is smoker of two packs per day since she was 10 years of age. Past Drug Use History: Heroin, Marijuana Additional Drug Use History / Comment(s): Pt states she has used heroin, cocaine/crack and marijuana . Pt states she has not used heroin, cocaine or crack since leaving rehab 12/13/18. - Past Family History Father Additional Family Medical History / Comment(s): Father is with history of AIDS. Mother Family Medical History: Diabetes Mellitus Additional Family Medical History / Comment(s): Mother at age 49 from liver cirrhosis secondary to alcohol abuse. Brother(s) Additional Family Medical History / Comment(s): Patient has one brother with no major medical problems. Medications and Allergies Home Medications Medication Instructions Recorded Confirmed Type Cholecalciferol [Vitamin D3 (25 5,000 unit PO DAILY 05/18/18 07/22/19 History Mcg = 1000 Iu)] DULoxetine HCL [Cymbalta] 60 mg PO BID 06/14/18 07/22/19 History Ferrous Sulfate [Iron (65 MG 325 mg PO DAILY 06/14/18 07/22/19 History Elemental)] Albuterol Inhaler [Ventolin Hfa 2 puff INHALATION RT-Q8H PRN 09/17/18 07/22/19 History Inhaler] OLANZapine [ZyPREXA] 15 mg PO HS 04/19/19 07/22/19 History Melatonin 3 mg PO HS 05/19/19 07/22/19 History Cyanocobalamin (Vitamin B-12) 1,000 mcg PO DAILY 06/27/19 07/22/19 History [Vitamin B-12] Warfarin Sodium 4 mg PO HS 07/01/19 07/22/19 History Aspirin EC [Ecotrin Low Dose] 81 mg PO DAILY 07/22/19 07/22/19 History Gabapentin [Neurontin] 400 mg PO TID 07/22/19 07/22/19 History Promethazine 6.25MG/5Ml [Phenergan 6.25 mg PO Q8H PRN 07/22/19 07/22/19 History Syrup] Trospium Chloride 20 mg PO BID 07/22/19 07/22/19 History Carvedilol [Coreg] 6.25 mg PO BID #60 tab 07/23/19 Rx HYDROcodone/APAP 10-325MG [Tun[place] 1 tab PO Q4-6H PRN 7 Days #28 tab 07/23/19 Rx 10-325] Allergies Allergy/AdvReac Type Severity Reaction Status Date / Time chlordiazepoxide HCl Allergy SEE COMMENT Verified 07/22/19 21:09 [From Librium] Penicillins Allergy Rash/Hives Verified 07/22/19 21:09 ketorolac [From Toradol] AdvReac ANXIETY Verified 07/22/19 21:09 prochlorperazine edisylate AdvReac PANIC Verified 07/22/19 21:09 [From Compazine] ATTACK prochlorperazine maleate AdvReac PANIC Verified 07/22/19 21:09 [From Compazine] ATTACK Physical Exam Vitals: Vital Signs Temp Pulse Pulse Resp BP BP BP 07/23/19 07:10 97.5 F L 72 18 108/72 07/23/19 04:00 65 18 108/59 07/23/19 01:05 97.4 F L 58 L 18 85/48 07/22/19 20:36 97.4 F L 62 16 108/56 07/22/19 20:00 98 F 58 L 18 110/55 07/22/19 17:04 71 18 105/55 07/22/19 13:04 97.9 F 71 18 125/75 Pulse Ox 07/23/19 07:10 97 07/23/19 04:00 93 L 07/23/19 01:05 96 07/22/19 20:36 97 07/22/19 20:00 96 07/22/19 17:04 100 07/22/19 13:04 98 Intake and Output 07/22/19 07/23/19 07/23/19 22:59 06:59 14:59 Other: Voiding Method Diaper Diaper Incontinent Incontinent # Voids 2 Results 07/23/19 03:48 07/23/19 03:48 Cardiac Enzymes 07/22/19 07/22/19 07/22/19 Range/Units 14:55 14:55 20:43 AST 29 (14-36) U/L Troponin I <0.012 <0.012 (0.000-0.034) ng/mL 07/23/19 Range/Units 03:48 AST (14-36) U/L Troponin I <0.012 (0.000-0.034) ng/mL Coagulation 07/22/19 07/23/19 Range/Units 14:55 03:48 PT 18.7 H 20.2 H (9.0-12.0) sec APTT 36.7 H (22.0-30.0) sec Lipids 07/23/19 Range/Units 03:48 Triglycerides 89 (<150) mg/dL Cholesterol 177 (<200) mg/dL HDL Cholesterol 43 (40-60) mg/dL CBC 07/22/19 07/23/19 Range/Units 14:55 03:48 WBC 12.9 H 7.1 (3.8-10.6) k/uL RBC 4.31 4.08 (3.80-5.40) m/uL Hgb 14.2 13.2 (11.4-16.0) gm/dL Hct 43.7 41.7 (34.0-46.0) % Plt Count 355 332 (150-450) k/uL Comprehensive Metabolic Panel 07/22/19 07/23/19 Range/Units 14:55 03:48 Sodium 137 137 (137-145) mmol/L Potassium 4.4 3.9 (3.5-5.1) mmol/L Chloride 102 106 (98-107) mmol/L Carbon Dioxide 28 28 (22-30) mmol/L BUN 8 7 (7-17) mg/dL Creatinine 0.58 0.53 (0.52-1.04) mg/dL Glucose 82 79 (74-99) mg/dL Calcium 9.4 8.7 (8.4-10.2) mg/dL AST 29 (14-36) U/L ALT 18 (9-52) U/L Alkaline Phosphatase 99 (38-126) U/L Total Protein 7.9 (6.3-8.2) g/dL Albumin 4.3 (3.5-5.0) g/dL Current Medications Generic Name Dose Route Start Last Admin Trade Name Freq PRN Reason Stop Dose Admin Acetaminophen 650 mg 07/22/19 17:56 Tylenol Tab PO Q6HR PRN Mild Pain or Fever > 100.5 Hydrocodone Bitart/Acetaminophen 1 each 07/22/19 17:56 07/23/19 00:10 Tunas 5-325 PO 1 each Q4HR PRN Administration Moderate Pain Albuterol Sulfate 2.5 mg 07/22/19 17:58 Ventolin Nebulized INHALATION RT-Q8H PRN Shortness Of Breath Alprazolam 0.25 mg 07/22/19 17:56 07/22/19 19:06 Xanax PO 0.25 mg Q6HR PRN Administration Anxiety Aspirin 81 mg 07/23/19 09:00 Aspirin PO DAILY [facility] Cholecalciferol 5,000 unit 07/23/19 09:00 Vitamin D3 (25 Mcg = 1000 Iu) PO DAILY [facility] Cyanocobalamin 1,000 mcg 07/23/19 09:00 Vitamin B-12 PO DAILY [facility] Duloxetine HCl 60 mg 07/22/19 21:00 07/22/19 23:23 Cymbalta PO 60 mg BID [facility] Administration Ferrous Sulfate 325 mg 07/23/19 09:00 Feosol PO DAILY [facility] Gabapentin 400 mg 07/22/19 22:00 07/22/19 23:23 Neurontin PO 400 mg TID [facility] Administration Melatonin 3 mg 07/22/19 21:00 07/22/19 23:23 Melatonin PO 3 mg HS [facility] Administration Metoprolol Tartrate 25 mg 07/22/19 21:00 07/22/19 23:23 Lopressor PO 25 mg BID [facility] Administration Morphine Sulfate 2 mg 07/22/19 17:56 Morphine Sulfate (Inj) IV Q4HR PRN Severe Pain Naloxone HCl 0.2 mg 07/22/19 17:56 Narcan IV Q2M PRN Opioid Reversal Nicotine Polacrilex 2 mg 07/22/19 17:56 Nicorette Gum BUCCAL Q2HR PRN Nicotine Cravings Nitroglycerin 0.4 mg 07/22/19 16:30 Nitrostat SUBLINGUAL Q5M PRN Chest Pain Nitroglycerin 0.5 inch 07/22/19 18:00 07/23/19 01:47 Nitro-Bid Oint TOPICAL Not Given Q6HR [facility] Olanzapine 15 mg 07/22/19 21:00 07/22/19 23:22 Zyprexa PO 15 mg HS [facility] Administration Ondansetron HCl 4 mg 07/22/19 17:56 Zofran IVP Q8HR PRN Nausea And Vomiting Promethazine HCl 6.25 mg 07/22/19 17:58 Phenergan Syrup PO Q8H PRN Cough Sodium Chloride 10 ml 07/22/19 21:00 07/22/19 23:25 Saline Flush IV 10 ml BID [facility] Administration Trospium 20 mg 07/22/19 21:00 07/22/19 23:23 Sanctura PO 20 mg BID [facility] Administration Warfarin Sodium 4 mg 07/22/19 18:30 07/22/19 23:23 Coumadin PO 4 mg DAILY@1800 [facility] Administration Intake and Output 07/22/19 07/23/19 07/23/19 22:59 06:59 14:59 Other: Voiding Method Diaper Diaper Incontinent Incontinent # Voids 2 07/23/19 03:48 07/23/19 03:48
--- NOTE | 2019-07-23 20:18 | P.DS ---
Providers Date of admission: 07/22/19 16:30 Expected date of discharge: 07/23/19 Attending physician: Kristin Burciaga DO Consults: 07/22/19 16:30 Consult Physician Urgent Consulting Provider: Terry Briggs Consult Reason/Comments: cp Do you want consulting provider notified?: Yes Primary care physician: [facility] Hospital Course: Discharge Diagnosis: Chest pain, suspect musculoskeletal in nature from worsening chest and back deformities Marfan syndrome with severe pectus excavatum and kyphosis Chronic tight a aortic dissection, nonoperative candidate for [place] Subtherapeutic Coumadin coagulopathy with you secondary to mechanical heart valve Depression Hep C CVA Arnold during malformation Scoliosis Gastric ulcers Hospital Course: Patient is a 34-year-old female with a past medical history of Marfan syndrome requiring aortic and mitral valve replacement with the child, Arnold- Chiari malformation, pectus excavatum, hepatitis C, and history of opiate addiction who presented to the ER with complaint of chest pain. Patient has a history of a known chronic aortic dissection. She was recently hospitalized here in June 2019. She was recently seen in the hospital and had a CT of the chest which revealed an aortic dissection in the ascending aortic aneurysm extending into the great arteries. She was subsequently transferred to [facility] where they recommended medical therapy and no surgery. Per the patient they stated that her life expectancy was one year unless with optimize blood pressure control she is not a surgical candidate due to the severity of her valvular disease and her history of Marfan's syndrome. Initially she presented to the ER with complaints of chest pain on 07/22 a left AGAINST MEDICAL ADVICE but however she represented to the ER again later that day. On arrival her vital signs are within normal limits. INR was 1.9, white blood cell count 12.9. Chest x-ray showed cardiomegaly, COPD and ectatic thoracic aorta. She underwent a CT of the chest, abdomen, and pelvis. This demonstrated her known aortic aneurysm with aortic dissection that was unchanged compared to prior exam, which was completed on 06/10/19. Orders were written for nitro in the ER however patient refuses to history of a headache. Arrangements were made for admission for chest pain. Patient reports that she is interested in hospice and palliative care as well as a DO NOT RESUSCITATE status secondary to her poor overall prognosis. Troponins were monitored and acute coronary event was ruled out. She was seen by cardiology who felt she was appropriate for discharge and that her chest pain was likely musculoskeletal in origin. Patient complains gamal t she is severely uncomfortable at home and is having limited functional status and is unable to leave her home secondary to fatigue and frequent shortness of breath. Pelvic guardian was notified via high school social studies teacher of patient's request to be a DO NOT RESUSCITATE. We did receive records from [place] which verified that the cardiothoracic surgeon felt that she would be most appropriate for goals of care discussion and comfort measures as she is a nonoperative candidate. However it appears that the internal medicine physician felt as though she had a life expectancy of age 40-50. I have given information on [facility] to the high school social studies teacher to facilitate transfer to the public guardian. I discussed with the patient that I feel she should go to [facility] to get a more accurate prognosis. If her prognosis is truly truly less than one year she would be appropriate for palliative care or hospice. I am in agreement with the patient that a DO NOT RESUSCITATE order would be most appropriate for her. With her known aortic dissection performing CPR likely would result in an aortic rupture and I would not anticipate return of pulses, therefore would not be in the patient's best interest to perform CPR whether it is in or out of hospital. Patient seen and examined at bedside. Feeling frustrated about the system, really wants to be hospice. We discussed that she will go home with home health care. That her court-appointed guardian has been made aware of her wishes. I also informed her that I suggest she received a second opinion. Vital signs reviewed and stable. General: non toxic, no distress, appears older than stated age Derm: Multiple lacerations over wrist she states secondary warm, dry Head: atraumatic, normocephalic, symmetric Eyes: EOMI, no lid lag, anicteric sclera Mouth: no lip lesion, mucus membranes moist Cardiovascular: S1S2 reg, mechanical midsystolic click, positive posterior tibial pulse bilateral, severe scoliosis and pectus excavatum Lungs: CTA bilateral, no rhonchi, no rales , no accessory muscle use Abdominal: soft, nontender to palpation, no guarding, no appreciable organomegaly A total of 35 minutes of time were spent preparing this complex discharge summary . Patient Condition at Discharge: Fair Plan - Discharge Summary Discharge Rx Participant: No New Discharge Prescriptions: New HYDROcodone/APAP 10-325MG [[place] 10-325] 1 tab PO Q4-6H PRN 7 Days #28 tab PRN Reason: Pain Continue Cholecalciferol [Vitamin D3 (25 Mcg = 1000 Iu)] 5,000 unit PO DAILY Ferrous Sulfate [Iron (65 MG Elemental)] 325 mg PO DAILY DULoxetine HCL [Cymbalta] 60 mg PO BID Albuterol Inhaler [Ventolin Hfa Inhaler] 2 puff INHALATION RT-Q8H PRN PRN Reason: Shortness Of Breath OLANZapine [ZyPREXA] 15 mg PO HS Melatonin 3 mg PO HS Cyanocobalamin (Vitamin B-12) [Vitamin B-12] 1,000 mcg PO DAILY Warfarin Sodium 4 mg PO HS Aspirin EC [Ecotrin Low Dose] 81 mg PO DAILY Gabapentin [Neurontin] 400 mg PO TID Promethazine 6.25MG/5Ml [Phenergan Syrup] 6.25 mg PO Q8H PRN PRN Reason: Cough Trospium Chloride 20 mg PO BID Carvedilol [Coreg] 6.25 mg PO BID #60 tab Discontinued Metoprolol Tartrate 25 mg PO BID Darifenacin Hydrobromide [Enablex] 7.5 mg PO DAILY Discharge Medication List Cholecalciferol [Vitamin D3 (25 Mcg = 1000 Iu)] 5,000 unit PO DAILY 05/18/18 [History] DULoxetine HCL [Cymbalta] 60 mg PO BID 06/14/18 [History] Ferrous Sulfate [Iron (65 MG Elemental)] 325 mg PO DAILY 06/14/18 [History] Albuterol Inhaler [Ventolin Hfa Inhaler] 2 puff INHALATION RT-Q8H PRN 09/17/18 [History] OLANZapine [ZyPREXA] 15 mg PO HS 04/19/19 [History] Melatonin 3 mg PO HS 05/19/19 [History] Cyanocobalamin (Vitamin B-12) [Vitamin B-12] 1,000 mcg PO DAILY 06/27/19 [History] Warfarin Sodium 4 mg PO HS 07/01/19 [History] Aspirin EC [Ecotrin Low Dose] 81 mg PO DAILY 07/22/19 [History] Gabapentin [Neurontin] 400 mg PO TID 07/22/19 [History] Promethazine 6.25MG/5Ml [Phenergan Syrup] 6.25 mg PO Q8H PRN 07/22/19 [History] Trospium Chloride 20 mg PO BID 07/22/19 [History] Carvedilol [Coreg] 6.25 mg PO BID #60 tab 07/23/19 [Rx] HYDROcodone/APAP 10-325MG [Vass 10-325] 1 tab PO Q4-6H PRN 7 Days #28 tab 07/23/19 [Rx] Follow up Appointment(s)/Referral(s): Terry Briggs MD [STAFF PHYSICIAN] - 1 Week [facility] [Primary Care Provider] - 1-2 days Activity/Diet/Wound Care/Special Instructions: Activity: as tolerated Diet: regular Special Instructions: Stop smoking Guardian given information on [facility]. Discharge Disposition: HOME WITH HOME HEALTH SERVICES
== END 2019-07-23 11:55 | disposition home health service (06) ==
LOC: EC 12:47 → 1SOBS 16:30
PROVIDERS: ADMIT Internal Medicine; ATTEND Internal Medicine
DX: R07.89 Other chest pain (principal); I71.01 Dissection of thoracic aorta; Q87.40 Marfan syndrome, unspecified; I50.42 Chronic combined systolic (congestive) and diastolic (congestive) heart failure; I08.1 Rheumatic disorders of both mitral and tricuspid valves; I69.351 Hemiplegia and hemiparesis following cerebral infarction affecting right dominant side; M19.90 Unspecified osteoarthritis, unspecified site; Z87.01 Personal history of pneumonia (recurrent); Q07.00 Arnold-Chiari syndrome without spina bifida or hydrocephalus; M41.9 Scoliosis, unspecified; Z90.2 Acquired absence of lung [part of]; Z68.1 Body mass index [BMI] 19.9 or less, adult; F19.21 Other psychoactive substance dependence, in remission; F17.210 Nicotine dependence, cigarettes, uncomplicated; Z95.2 Presence of prosthetic heart valve; Z95.1 Presence of aortocoronary bypass graft; D72.829 Elevated white blood cell count, unspecified; Z87.09 Personal history of other diseases of the respiratory system; R05 Cough; G89.29 Other chronic pain; M54.9 Dorsalgia, unspecified; K25.9 Gastric ulcer, unspecified as acute or chronic, without hemorrhage or perforation; I99.9 Unspecified disorder of circulatory system; Z86.61 Personal history of infections of the central nervous system; B19.20 Unspecified viral hepatitis C without hepatic coma; Z86.14 Personal history of Methicillin resistant Staphylococcus aureus infection; Z96.60 Presence of unspecified orthopedic joint implant; F41.9 Anxiety disorder, unspecified; Z83.2 Family history of diseases of the blood and blood-forming organs and certain disorders involving the immune mechanism; Z83.79 Family history of other diseases of the digestive system; Z81.1 Family history of alcohol abuse and dependence; Z79.01 Long term (current) use of anticoagulants; F32.9 Major depressive disorder, single episode, unspecified; Z79.82 Long term (current) use of aspirin; Z79.899 Other long term (current) drug therapy; Z88.6 Allergy status to analgesic agent; Z88.0 Allergy status to penicillin; Z88.8 Allergy status to other drugs, medicaments and biological substances
CPT/HCPCS: 93005 ×2; 99285; 36415; 80061; 80053; 80048; 82150; 82550; 83690; 83735 ×2; 84484 ×2; 85025 ×2; 85610 ×2; 85730; 81001; 80306; 71046; 71275; 74174; G0378 ×2; J2405; Q9967; 96374

== ENCOUNTER 2019-07-25 09:02 | Emergency (ER) | payer OTHER ==
[2019-07-25 09:17] VITALS: RESP 18; TEMP 98.1
--- NOTE | 2019-07-25 09:53 | XR ---
EXAMINATION TYPE: XR chest 2V DATE OF EXAM: 07/25/2019 COMPARISON: 07/22/2019 HISTORY: Chest pain TECHNIQUE: Frontal and lateral views of the chest are obtained. FINDINGS: There is no focal air space opacity. No evidence for pneumothorax. No pleural effusion. The cardiac silhouette size is within normal limits. The osseous structures are grossly intact. Severe scoliotic curvature noted. Postoperative changes ri ght humerus. Changes median sternotomy. IMPRESSION: 1. No acute cardiopulmonary process.
[2019-07-25] MEDS ORDERED: ONDANSETRON 4 MG/2 ML VIAL IVP STA (10:01)
[2019-07-25] MEDS ORDERED: MORPHINE SULFATE 4 MG/ML SYRINGE IVP STA (10:01)
[2019-07-25] MEDS ORDERED: SODIUM CHLORIDE 0.9% 500 ML 500 ML IV STA (10:01)
[2019-07-25 10:03] LABS: ALT 11 U/L (9-52); AST 31 U/L (14-36); African American GFR (CKD) >90 (>60 ml/min/1.73 sqM); Albumin 4.6 g/dL (3.5-5.0); Alkaline Phosphatase 86 U/L (38-126); Anion Gap 11 mmol/L; Blood Urea Nitrogen 8 mg/dL (7-17); Calcium 9.4 mg/dL (8.4-10.2); Carbon Dioxide 26 mmol/L (22-30); Chloride 102 mmol/L (98-107); Glucose 69 mg/dL (74-99); Magnesium 1.8 mg/dL (1.6-2.3); Non-African American GFR(CKD) >90 (>60 ml/min/1.73 sqM); Potassium 4.5 mmol/L (3.5-5.1); Sodium 139 mmol/L (137-145); Total Bilirubin 0.7 mg/dL (0.2-1.3); Total Protein 8.7 g/dL (6.3-8.2)
[2019-07-25 10:04] LABS: INR 2.2 (<1.2); Partial Thromboplastin Time 34.8 sec (22.0-30.0); Prothrombin Time 21.3 sec (9.0-12.0)
[2019-07-25 10:05] LABS: Basophils # (A) 0.1 k/uL (0-0.2); Basophils % (A) 1 %; Eosinophils # (A) 0.2 k/uL (0-0.7); Eosinophils % (A) 3 %; HCT 47.7 % (34.0-46.0); HGB 15.4 gm/dL (11.4-16.0); Lymphocytes # (A) 2.2 k/uL (1.0-4.8); Lymphocytes % (A) 29 %; MCH 33.3 pg (25.0-35.0); MCHC 32.3 g/dL (31.0-37.0); MCV 102.9 fL (80.0-100.0); Macrocytosis Slight; Mean Platelet Volume 7.2; Monocytes # (A) 0.5 k/uL (0-1.0); Monocytes % (A) 7 %; Neutrophils # (A) 4.3 k/uL (1.3-7.7); Neutrophils % (A) 58 %; Platelet Count 327 k/uL (150-450); RBC 4.63 m/uL (3.80-5.40); RDW 13.9 % (11.5-15.5); WBC 7.5 k/uL (3.8-10.6)
--- NOTE | 2019-07-25 10:55 | ED ---
Chest Pain HPI - General Chief Complaint: Chest Pain Stated Complaint: weakness, near syncope Time Seen by Provider: 07/25/19 09:15 Source: EMS Mode of arrival: EMS Limitations: no limitations - History of Present Illness Initial Comments: The patient is a 34-year-old female with past medical history of Marfan's, type a aortic dissection and spontaneous pneumothorax presents to the emergency department with reported chronic chest pain and presyncope. He was recently hospitalized and discharged from our facility yesterday. She states that upon discharge she continues to have chest pain. She was prescribed [place] and states that she takes it as directed however it only temporarily helps her symptoms. She was referred to pain management however has had to establish care. She also states that she was given information regarding palliative care and hospice. She returns to the emergency department today stating that she has been nauseated. Denies abdominal pain or vomiting. Admits to decreased oral intake. No shortness of breath. Denies any dysuria, hematuria or difficulty voiding. Denies any changes in her bowel or bladder habits. No back or flank pain. No fevers or chills. Denies current IV drug use. There are no other alleviating, precipitating or modifying factors - Related Data Home Medications Medication Instructions Recorded Confirmed Cholecalciferol [Vitamin D3 (25 5,000 unit PO DAILY 05/18/18 07/27/19 Mcg = 1000 Iu)] DULoxetine HCL [Cymbalta] 60 mg PO BID 06/14/18 07/27/19 Ferrous Sulfate [Iron (65 MG 325 mg PO DAILY 06/14/18 07/27/19 Elemental)] Albuterol Inhaler [Ventolin Hfa 2 puff INHALATION RT-Q8H PRN 09/17/18 07/27/19 Inhaler] OLANZapine [ZyPREXA] 15 mg PO HS 04/19/19 07/27/19 Melatonin 3 mg PO HS 05/19/19 07/27/19 Cyanocobalamin (Vitamin B-12) 1,000 mcg PO DAILY 06/27/19 07/27/19 [Vitamin B-12] Aspirin EC [Ecotrin Low Dose] 81 mg PO DAILY 07/22/19 07/27/19 Gabapentin [Neurontin] 400 mg PO TID 07/22/19 07/27/19 Promethazine 6.25MG/5Ml [Phenergan 6.25 mg PO Q8H PRN 07/22/19 07/27/19 Syrup] Trospium Chloride 20 mg PO BID 07/22/19 07/27/19 Darifenacin Hydrobromide [Enablex] 7.5 mg PO DAILY 07/25/19 07/27/19 Metoprolol Tartrate [Lopressor] 25 mg PO BID 07/25/19 07/27/19 Warfarin [Coumadin] 5 mg PO TUSA 07/25/19 07/27/19 Warfarin [Coumadin] 7.5 mg PO SUMOWETHFR 07/25/19 07/27/19 Ondansetron [Zofran ODT] 4 mg PO Q8HR PRN 07/27/19 07/27/19 Previous Rx's Medication Instructions Recorded Carvedilol [Coreg] 6.25 mg PO BID #60 tab 07/23/19 HYDROcodone/APAP 10-325MG [[place] 1 tab PO Q4-6H PRN 7 Days #28 tab 07/23/19 10-325] Cephalexin [Keflex] 500 mg PO Q12HR #14 cap 07/25/19 Allergies Allergy/AdvReac Type Severity Reaction Status Date / Time chlordiazepoxide HCl Allergy SEE COMMENT Verified 07/27/19 11:51 [From Librium] Penicillins Allergy Rash/Hives Verified 07/27/19 11:51 ketorolac [From Toradol] AdvReac ANXIETY Verified 07/27/19 11:51 prochlorperazine edisylate AdvReac PANIC Verified 07/27/19 11:51 [From Compazine] ATTACK prochlorperazine maleate AdvReac PANIC Verified 07/27/19 11:51 [From Compazine] ATTACK Review of Systems ROS Statement: Those systems with pertinent positive or pertinent negative responses have been documented in the HPI. ROS Other: All systems not noted in ROS Statement are negative. EKG Findings - EKG Comments: EKG Findings:: EKG demonstrates a normal sinus rhythm with ventricular rate of 73. ND interval 134. QRS 108. QTC 46. There is inverted T waves in leads V2V6 surgery. There is some ST depression in V5 V6. This is compared to patient's previous EKG and appears the same from July 23, 2019 Past Medical History Past Medical History: Heart Failure, CVA/TIA, Liver Disease, Neurologic Disorder, Osteoarthritis (OA), Pneumonia Additional Past Medical History / Comment(s): Stroke with residual right-sided weakness 2017, TIAs, marfan's syndrome, ArnoldChiari malformation, spontaneous pneumothorax x 21, scoliosis and pectus excavatum secondary to Marfan's, chronic back pain, bilateral leg pain, gastric ulcers, sinus infections, STATED HAS POOR CIRCULATION, viral meningitis, HEP C. 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 spleenectomy 2018, L upper lobectomy d/t pneumothoraxs. Past Anesthesia/Blood Transfusion Reactions: No Reported Reaction Past Psychological History: Anxiety Smoking Status: Current every day smoker Past Alcohol Use History: None Reported, Occasional Past Drug Use History: Heroin, Marijuana - Past Family History Father Additional Family Medical History / Comment(s): Father is with history of AIDS. Mother Family Medical History: Diabetes Mellitus Additional Family Medical History / Comment(s): Mother at age 49 from liver cirrhosis secondary to alcohol abuse. Brother(s) Additional Family Medical History / Comment(s): Patient has one brother with no major medical problems. General Exam Limitations: no limitations General appearance: alert, in no apparent distress, cachectic, other (Marfan features) Head exam: Present: atraumatic, normocephalic, normal inspection Eye exam: Present: normal appearance, PERRL, EOMI. Absent: scleral icterus, conjunctival injection, periorbital swelling ENT exam: Present: normal exam, mucous membranes dry Neck exam: Present: normal inspection. Absent: tenderness, meningismus, lymphadenopathy Respiratory exam: Present: normal lung sounds bilaterally. Absent: respiratory distress, wheezes, rales, rhonchi, stridor Cardiovascular Exam: Present: regular rate, normal rhythm, normal heart sounds. Absent: rubs, gallop, clicks GI/Abdominal exam: Present: soft, normal bowel sounds. Absent: distended, tenderness, guarding, rebound, rigid Extremities exam: Present: normal inspection, full ROM, normal capillary refill. Absent: tenderness, pedal edema, joint swelling, calf tenderness Back exam: Present: normal inspection Neurological exam: Present: alert, oriented X3, CN II-XII intact Psychiatric exam: Present: normal affect, normal mood Skin exam: Present: warm, dry, normal color, abrasion (bilaterally dorsal hands and forearms). Absent: rash Course Vital Signs 07/25/19 07/25/19 07/25/19 09:11 10:00 10:30 Temperature 98.1 F Pulse Rate 75 65 61 Respiratory 18 19 22 Rate Blood Pressure 99/64 87/62 93/65 O2 Sat by Pulse 95 95 Oximetry 07/25/19 07/25/19 07/25/19 11:00 11:30 12:00 Temperature Pulse Rate 60 62 60 Respiratory 20 17 20 Rate Blood Pressure 81/59 94/72 107/61 O2 Sat by Pulse 95 Oximetry 07/25/19 07/25/19 07/25/19 12:30 13:00 13:30 Temperature Pulse Rate 61 60 59 L Respiratory 21 23 20 Rate Blood Pressure 107/56 105/50 102/53 O2 Sat by Pulse Oximetry 07/25/19 07/25/19 14:00 14:30 Temperature Pulse Rate 60 58 L Respiratory 17 18 Rate Blood Pressure 111/54 119/59 O2 Sat by Pulse Oximetry Chest Pain MDM - MDM Upon arrival the patient was placed into room 10. A thorough history and physical exam was performed. Peripheral IV was established. I did provide the patient with a 500 mL bolus of normal saline. She was also given 4 mg of Zofran and 4 mg of morphine for pain control. I recommended repeating laboratory studies chest x-ray. Patient reports her chest pain is the same chronic chest pain that she's had for the past several months. No new or worsening symptoms. 12-lead EKG was performed. Laboratory studies demonstrated a white blood cell count of 7.5. INR therapeutic at 2.2. Glucose low at 69. Urinalysis is p ositive for nitrates, moderate leukocyte esterase, 15 white blood cell. Occasional bacteria. Provide the patient with a dose of Rocephin. She is reevaluated and does report to improvement in her nausea. I did provide her with an amp of dextrose because of her low blood sugar. Patient is requesting readmission to the hospital because she feels she was discharged to soon. I did call discuss case with Dr. Hernandez who refused admission. He states that he is very familiar with the patient and does believe that this can be treated on an outpatient basis. He recommended that I treat the urinary tract infection and give the patient a prescription for Zofran. The patient is agreeable to outpatient treatment. She is to follow-up with her primary care doctor in 2-4 days. She also needs to follow up with cardiology. Patient was in agreement with the treatment plan she was discharged home in stable condition with a guarded prognosis Disposition Clinical Impression: UTI (urinary tract infection), Chest pain Disposition: HOME SELF-CARE Condition: Stable Instructions (If sedation given, give patient instructions): Urinary Tract Infection in Women (ED) Additional Instructions: Please follow up with your primary care doctor in 1-2 days. Return to the emergency room for any new or worsening symptoms Prescriptions: Cephalexin [Keflex] 500 mg PO Q12HR #14 cap Is patient prescribed a controlled substance at d/c from ED?: No Referrals: [facility] [Primary Care Provider] - 1-2 days Time of Disposition: 14:14
[2019-07-25 11:06] LABS: Appearance,Urine Cloudy (Clear); Bacteria,Urine Occasional /hpf; Bilirubin,Urine Negative (Negative); Blood,Urine Negative (Negative); Color,Urine Yellow; Glucose,Urine (UA) Negative (Negative); Ketones,Urine Negative (Negative); Leukocyte Esterase,Urine Moderate (Negative); Mucus,Urine Rare /hpf; Nitrite,Urine Positive (Negative); Protein,Urine Negative (Negative); RBC,Urine 2 /hpf (0-5); Specific Gravity,Urine 1.011 (1.001-1.035); Squamous Epithelial Cell,Urine 11 /hpf (0-4); Urobilinogen,Urine <2.0 mg/dL (<2.0)
[2019-07-25] MEDS ORDERED: DEXTROSE 50% SYRINGE 50 ML IVP STA (12:05)
[2019-07-25] MEDS ORDERED: cefTRIAXone IN SWFI 1,000 MG/10 ML SYRINGE IVP STA (12:06)
[2019-07-25 14:33] VITALS: BP 119/59; PULSE 58
== END 2019-07-25 14:37 | disposition home or self-care (01) ==
LOC: EC 09:02
DX: N39.0 Urinary tract infection, site not specified (principal); R07.9 Chest pain, unspecified; G89.29 Other chronic pain; E16.2 Hypoglycemia, unspecified; S60.512A Abrasion of left hand, initial encounter; S60.511A Abrasion of right hand, initial encounter; S50.812A Abrasion of left forearm, initial encounter; S50.811A Abrasion of right forearm, initial encounter; Q87.43 Marfan syndrome with skeletal manifestation; R55 Syncope and collapse; R11.0 Nausea; R63.8 Other symptoms and signs concerning food and fluid intake; Q07.00 Arnold-Chiari syndrome without spina bifida or hydrocephalus; M19.90 Unspecified osteoarthritis, unspecified site; F41.9 Anxiety disorder, unspecified; F17.200 Nicotine dependence, unspecified, uncomplicated; Z88.0 Allergy status to penicillin; Z88.6 Allergy status to analgesic agent; Z88.8 Allergy status to other drugs, medicaments and biological substances; Z79.01 Long term (current) use of anticoagulants; Z79.82 Long term (current) use of aspirin; Z79.899 Other long term (current) drug therapy; Z86.14 Personal history of Methicillin resistant Staphylococcus aureus infection; Z86.73 Personal history of transient ischemic attack (TIA), and cerebral infarction without residual deficits; Z86.79 Personal history of other diseases of the circulatory system; Z87.09 Personal history of other diseases of the respiratory system; Z95.1 Presence of aortocoronary bypass graft; Z95.2 Presence of prosthetic heart valve; Z90.2 Acquired absence of lung [part of]; Z83.3 Family history of diabetes mellitus; X58.XXXA Exposure to other specified factors, initial encounter
CPT/HCPCS: 99285; 96374; 96375 ×3; 96361; 36415; 93005; 80053; 83690; 83735; 84484; 85025; 85610; 85730; 81001; 81025; 87086; 87077; 87186; 71046; J2270; J2405; J0696

== ENCOUNTER 2019-07-27 10:37 | Emergency (ER) | payer MEDICAID, OTHER ==
[2019-07-27 10:48] VITALS: RESP 18; TEMP 98
[2019-07-27] MEDS ORDERED: ASPIRIN 81 MG PO STA (11:14)
--- NOTE | 2019-07-27 11:30 | ED ---
General Adult HPI - General Chief complaint: Chest Pain Stated complaint: Chest pain Time Seen by Provider: 07/27/19 10:55 Source: patient, EMS, RN notes reviewed, old records reviewed Mode of arrival: EMS Limitations: no limitations - History of Present Illness Initial comments: Patient is a 34-year-old female presenting to the emergency Department with chest discomfort. Onset of symptoms was several months ago. Discomfort has been chronic since that time. Patient has been in the hospital recently with similar symptoms. Patient is feeling agitated regarding having similar symptoms. Patient is worried because she does have a history of drug use and feels like she needs pain medication again. Discomfort is anterior and somewhat burning. Not abrupt onset. No back pain. Patient did have recent computed tomography scan. Symptoms have not worsened since that time. - Related Data Home Medications Medication Instructions Recorded Confirmed Cholecalciferol [Vitamin D3 (25 5,000 unit PO DAILY 05/18/18 07/27/19 Mcg = 1000 Iu)] DULoxetine HCL [Cymbalta] 60 mg PO BID 06/14/18 07/27/19 Ferrous Sulfate [Iron (65 MG 325 mg PO DAILY 06/14/18 07/27/19 Elemental)] Albuterol Inhaler [Ventolin Hfa 2 puff INHALATION RT-Q8H PRN 09/17/18 07/27/19 Inhaler] OLANZapine [ZyPREXA] 15 mg PO HS 04/19/19 07/27/19 Melatonin 3 mg PO HS 05/19/19 07/27/19 Cyanocobalamin (Vitamin B-12) 1,000 mcg PO DAILY 06/27/19 07/27/19 [Vitamin B-12] Aspirin EC [Ecotrin Low Dose] 81 mg PO DAILY 07/22/19 07/27/19 Gabapentin [Neurontin] 400 mg PO TID 07/22/19 07/27/19 Promethazine 6.25MG/5Ml [Phenergan 6.25 mg PO Q8H PRN 07/22/19 07/27/19 Syrup] Trospium Chloride 20 mg PO BID 07/22/19 07/27/19 Darifenacin Hydrobromide [Enablex] 7.5 mg PO DAILY 07/25/19 07/27/19 Metoprolol Tartrate [Lopressor] 25 mg PO BID 07/25/19 07/27/19 Warfarin [Coumadin] 5 mg PO TUSA 07/25/19 07/27/19 Warfarin [Coumadin] 7.5 mg PO SUMOWETHFR 07/25/19 07/27/19 Ondansetron [Zofran ODT] 4 mg PO Q8HR PRN 07/27/19 07/27/19 Previous Rx's Medication Instructions Recorded Carvedilol [Coreg] 6.25 mg PO BID #60 tab 07/23/19 HYDROcodone/APAP 10-325MG [[place] 1 tab PO Q4-6H PRN 7 Days #28 tab 07/23/19 10-325] Cephalexin [Keflex] 500 mg PO Q12HR #14 cap 07/25/19 Allergies Allergy/AdvReac Type Severity Reaction Status Date / Time chlordiazepoxide HCl Allergy SEE COMMENT Verified 07/27/19 11:51 [From Librium] Penicillins Allergy Rash/Hives Verified 07/27/19 11:51 ketorolac [From Toradol] AdvReac ANXIETY Verified 07/27/19 11:51 prochlorperazine edisylate AdvReac PANIC Verified 07/27/19 11:51 [From Compazine] ATTACK prochlorperazine maleate AdvReac PANIC Verified 07/27/19 11:51 [From Compazine] ATTACK Review of Systems ROS Statement: Those systems with pertinent positive or pertinent negative responses have been documented in the HPI. ROS Other: All systems not noted in ROS Statement are negative. Constitutional: Denies: fever Eyes: Denies: eye pain ENT: Denies: ear pain Respiratory: Denies: cough Cardiovascular: Reports: chest pain Endocrine: Denies: fatigue Gastrointestinal: Denies: abdominal pain Genitourinary: Denies: dysuria Musculoskeletal: Denies: back pain Skin: Denies: rash Neurological: Denies: weakness Psychiatric: Reports: anxiety, depression Past Medical History Past Medical History: Heart Failure, CVA/TIA, Liver Disease, Neurologic Disorder, Osteoarthritis (OA), Pneumonia Additional Past Medical History / Comment(s): Stroke with residual right-sided weakness 2017, TIAs, marfan's syndrome, ArnoldChiari malformation, spontaneous pneumothorax x 21, scoliosis and pectus excavatum secondary to Marfan's, chronic back pain, bilateral leg pain, gastric ulcers, sinus infections, STATED HAS POOR CIRCULATION, viral meningitis, HEP C. History of Any Multi-Drug Resistant Organisms: MRSA Date of last positivie culture/infection: 05/05/2010 MDRO Source:: back per patient Past Surgical History: Cardiac Valve Replacement, Coronary Bypass/CABG, Joint Replacement Additional Past Surgical History / Comment(s): right foot corrective surgery, R shoulder surgery following injury, CABG x4 vessel, aortic root graft, aortic/skylar ral valve replaced as child (2 separate surgeries last 10 years old), tiffani lens removed. spleenectomy 2018, L upper lobectomy d/t pneumothoraxs. Past Anesthesia/Blood Transfusion Reactions: No Reported Reaction Past Psychological History: Anxiety Smoking Status: Current every day smoker Past Alcohol Use History: None Reported, Occasional Past Drug Use History: Heroin, Marijuana - Past Family History Father Additional Family Medical History / Comment(s): Father is with history of AIDS. Mother Family Medical History: Diabetes Mellitus Additional Family Medical History / Comment(s): Mother at age 49 from liver cirrhosis secondary to alcohol abuse. Brother(s) Additional Family Medical History / Comment(s): Patient has one brother with no major medical problems. General Exam Limitations: no limitations General appearance: alert, other (Patient is agitated and screaming) Head exam: Present: atraumatic Eye exam: Present: normal appearance Respiratory exam: Present: normal lung sounds bilaterally Cardiovascular Exam: Present: regular rate, normal rhythm Expanded Peripheral pulses: 2+: Radial (R), Radial (L), Posterior Tibialis (R), Posterior Tibialis (L), Dorsalis Pedis (R), Dorsalis Pedis (L) GI/Abdominal exam: Present: soft. Absent: tenderness Extremities exam: Present: normal inspection Back exam: Present: other (Severe scoliosis) Neurological exam: Present: alert Psychiatric exam: Present: agitated Skin exam: Present: normal color Course Vital Signs 07/27/19 07/27/19 10:38 16:04 Temperature 98 F 98 F Pulse Rate 72 74 Respiratory 18 18 Rate Blood Pressure 98/74 105/77 O2 Sat by Pulse 95 97 Oximetry - Reevaluation(s) Reevaluation #1: 07/27/19 15:00 Case was earlier discussed with Dr. Hernandez who felt patient could be cleared medically and does not need medical admit. He is very familiar with this patient. Patient has made threatening statements and was cleared for psychiatric evaluation. 07/27/19 16:43 Patient seen by mental health services and feels she does not need psychiatric admission. Patient reevaluated and resting comfortably in bed. EKG Findings - EKG Comments: EKG Findings:: Sinus rhythm at 74. For screening AV block PA of 264. QRS 110. QT 414. QTC 459. Right axis. Normal QRS. Nonspecific ST-T. Medical Decision Making - Lab Data Result diagrams: 07/27/19 12:46 07/27/19 12:46 Lab Results 07/27/19 07/27/19 07/27/19 Range/Units 12:46 12:46 12:46 WBC 9.2 (3.8-10.6) k/uL RBC 4.52 (3.80-5.40) m/uL Hgb 15.1 (11.4-16.0) gm/dL Hct 46.4 H (34.0-46.0) % MCV 102.8 H (80.0-100.0) fL MCH 33.4 (25.0-35.0) pg MCHC 32.5 (31.0-37.0) g/dL RDW 13.9 (11.5-15.5) % Plt Count 315 (150-450) k/uL Neutrophils % 53 % Lymphocytes % 31 % Monocytes % 5 % Eosinophils % 8 % Basophils % 1 % Neutrophils # 4.9 (1.3-7.7) k/uL Lymphocytes # 2.9 (1.0-4.8) k/uL Monocytes # 0.5 (0-1.0) k/uL Eosinophils # 0.7 (0-0.7) k/uL Basophils # 0.1 (0-0.2) k/uL Hypochromasia Slight Macrocytosis Slight Sodium 136 L (137-145) mmol/L Potassium 4.8 (3.5-5.1) mmol/L Chloride 106 (98-107) mmol/L Carbon Dioxide 25 (22-30) mmol/L Anion Gap 5 mmol/L BUN 16 (7-17) mg/dL Creatinine 0.68 (0.52-1.04) mg/dL Est GFR (CKD-EPI)AfAm >90 (>60 ml/min/1.73 sqM) Est GFR (CKD-EPI)NonAf >90 (>60 ml/min/1.73 sqM) Glucose 86 (74-99) mg/dL Calcium 9.3 (8.4-10.2) mg/dL Magnesium 2.0 (1.6-2.3) mg/dL Total Bilirubin 0.4 (0.2-1.3) mg/dL AST 37 H (14-36) U/L ALT 13 (9-52) U/L Alkaline Phosphatase 91 (38-126) U/L Troponin I <0.012 (0.000-0.034) ng/mL Total Protein 8.2 (6.3-8.2) g/dL Albumin 4.5 (3.5-5.0) g/dL Disposition Clinical Impression: Chronic chest pain, Depression Disposition: HOME SELF-CARE Condition: Stable Instructions (If sedation given, give patient instructions): Chest Pain (ED), Chronic Pain (ED), Depression (ED) Additional Instructions: Please follow-up with primary care physician in the next day or 2 for recheck. Please follow-up with mental health services as directed. Return for change or worsening symptoms, thoughts of self-harm, or other concerns. Is patient prescribed a controlled substance at d/c from ED?: No Referrals: [facility] [Primary Care Provider] - 1-2 days Time of Disposition: 16:51
[2019-07-27 13:05] LABS: ALT 13 U/L (9-52); AST 37 U/L (14-36); African American GFR (CKD) >90 (>60 ml/min/1.73 sqM); Albumin 4.5 g/dL (3.5-5.0); Alkaline Phosphatase 91 U/L (38-126); Anion Gap 5 mmol/L; Blood Urea Nitrogen 16 mg/dL (7-17); Calcium 9.3 mg/dL (8.4-10.2); Carbon Dioxide 25 mmol/L (22-30); Chloride 106 mmol/L (98-107); Glucose 86 mg/dL (74-99); Non-African American GFR(CKD) >90 (>60 ml/min/1.73 sqM); Potassium 4.8 mmol/L (3.5-5.1); Sodium 136 mmol/L (137-145); Total Bilirubin 0.4 mg/dL (0.2-1.3); Total Protein 8.2 g/dL (6.3-8.2)
[2019-07-27 13:06] LABS: Basophils # (A) 0.1 k/uL (0-0.2); Basophils % (A) 1 %; Eosinophils # (A) 0.7 k/uL (0-0.7); Eosinophils % (A) 8 %; HCT 46.4 % (34.0-46.0); HGB 15.1 gm/dL (11.4-16.0); Hypochromasia Slight; Lymphocytes # (A) 2.9 k/uL (1.0-4.8); Lymphocytes % (A) 31 %; MCH 33.4 pg (25.0-35.0); MCHC 32.5 g/dL (31.0-37.0); MCV 102.8 fL (80.0-100.0); Macrocytosis Slight; Mean Platelet Volume 6.5; Monocytes # (A) 0.5 k/uL (0-1.0); Monocytes % (A) 5 %; Neutrophils # (A) 4.9 k/uL (1.3-7.7); Neutrophils % (A) 53 %; Platelet Count 315 k/uL (150-450); RBC 4.52 m/uL (3.80-5.40); RDW 13.9 % (11.5-15.5); WBC 9.2 k/uL (3.8-10.6)
[2019-07-27] MEDS ORDERED: HYDROcodone/APAP 5-325MG 1 EACH TAB PO STA (13:33)
--- NOTE | 2019-07-27 13:51 | XR ---
EXAMINATION TYPE: XR chest 2V DATE OF EXAM: 07/27/2019 COMPARISON: Chest x-ray 07/25/2019 HISTORY: Chest pain TECHNIQUE: Frontal and lateral views of the chest are obtained. FINDINGS: There is no focal air space opacity, pleural effusion, or pneumothorax seen. Postsurgical changes in the left lung and sternum are noted. The cardiac silhouette size is within normal limits. Stable scoliotic curvature of the thoracolumbar spine and acute kyphosis of the lower thoracic spine. ORIF proximal right humerus. IMPRESSION: No acute cardiopulmonary process.
[2019-07-27 16:06] VITALS: BP 105/77; PULSE 74
== END 2019-07-27 17:07 | disposition home or self-care (01) ==
LOC: EC 10:37 → 3MHU 16:45 → UNDOADMIN 16:45 → EC 17:07
DX: F32.9 Major depressive disorder, single episode, unspecified (principal); R07.89 Other chest pain; G89.29 Other chronic pain; M41.9 Scoliosis, unspecified; R45.1 Restlessness and agitation; Q87.43 Marfan syndrome with skeletal manifestation; Q07.00 Arnold-Chiari syndrome without spina bifida or hydrocephalus; I50.9 Heart failure, unspecified; M19.90 Unspecified osteoarthritis, unspecified site; F41.9 Anxiety disorder, unspecified; F17.200 Nicotine dependence, unspecified, uncomplicated; Z88.0 Allergy status to penicillin; Z88.6 Allergy status to analgesic agent; Z88.8 Allergy status to other drugs, medicaments and biological substances; Z79.01 Long term (current) use of anticoagulants; Z79.82 Long term (current) use of aspirin; Z79.899 Other long term (current) drug therapy; Z86.73 Personal history of transient ischemic attack (TIA), and cerebral infarction without residual deficits; Z86.14 Personal history of Methicillin resistant Staphylococcus aureus infection; Z95.1 Presence of aortocoronary bypass graft; Z95.2 Presence of prosthetic heart valve
CPT/HCPCS: 36415; 71046; 80053; 83735; 84484; 85025; 93005; 99285

== ENCOUNTER 2019-08-23 16:00 | Emergency (ER) | payer OTHER ==
[2019-08-23 16:11] VITALS: BP 99/89; TEMP 98.7
[2019-08-23 16:23] VITALS: PULSE 76; RESP 20
--- NOTE | 2019-08-23 16:35 | ED ---
General Adult HPI - General Chief complaint: Chest Pain Stated complaint: Diff Breathing Time Seen by Provider: 08/23/19 16:03 Source: patient, EMS, RN notes reviewed, old records reviewed Mode of arrival: EMS Limitations: no limitations - History of Present Illness Initial comments: 34-year-old female patient presents to ED for chief complaint of chest pain. Patient force that she has baseline chest pain, however reports that it got slightly worse today around noon. Patient describes it as left parasternal region. Patient initially told EMS that she isn't difficulty breathing, however in my review systems denies any shortness of breath. Patient has a history of multiple aortic injuries noted. She denies any other complaints at this time. Patient requests opoid Pain medications by name. Systemic: Pt denies fatigue, fever/chills, rash. Pt denies weakness, night sweats, weight loss. Neuro: Pt denies headache, visual disturbances, syncope or pre-syncope. HEENT: Pt denies ocular discharge or irritation, otalgia, rhinorrhea, pharyngitis or notable lymphadenopathy. Cardiopulmonary: Pt denies SOB, heart palpitations, dyspnea on exertion. Abdominal/GI: Pt denies abdominal pain, n/v/d. : Pt denies dysuria, burning w/ urination, frequency/urgency. Denies new onset urinary or bowel incontinence. MSK: Pt denies myalgia, loss of strength or function in extremities. Neuro: Pt denies new onset weakness, paresthesias. - Related Data Home Medications Medication Instructions Recorded Confirmed Cholecalciferol [Vitamin D3 (25 5,000 unit PO DAILY 05/18/18 07/27/19 Mcg = 1000 Iu)] DULoxetine HCL [Cymbalta] 60 mg PO BID 06/14/18 07/27/19 Ferrous Sulfate [Iron (65 MG 325 mg PO DAILY 06/14/18 07/27/19 Elemental)] Albuterol Inhaler [Ventolin Hfa 2 puff INHALATION RT-Q8H PRN 09/17/18 07/27/19 Inhaler] OLANZapine [ZyPREXA] 15 mg PO HS 04/19/19 07/27/19 Melatonin 3 mg PO HS 05/19/19 07/27/19 Cyanocobalamin (Vitamin B-12) 1,000 mcg PO DAILY 06/27/19 07/27/19 [Vitamin B-12] Aspirin EC [Ecotrin Low Dose] 81 mg PO DAILY 07/22/19 07/27/19 Gabapentin [Neurontin] 400 mg PO TID 07/22/19 07/27/19 Promethazine 6.25MG/5Ml [Phenergan 6.25 mg PO Q8H PRN 07/22/19 07/27/19 Syrup] Trospium Chloride 20 mg PO BID 07/22/19 07/27/19 Darifenacin Hydrobromide [Enablex] 7.5 mg PO DAILY 07/25/19 07/27/19 Metoprolol Tartrate [Lopressor] 25 mg PO BID 07/25/19 07/27/19 Warfarin [Coumadin] 5 mg PO TUSA 07/25/19 07/27/19 Warfarin [Coumadin] 7.5 mg PO SUMOWETHFR 07/25/19 07/27/19 Ondansetron [Zofran ODT] 4 mg PO Q8HR PRN 07/27/19 07/27/19 Previous Rx's Medication Instructions Recorded Carvedilol [Coreg] 6.25 mg PO BID #60 tab 07/23/19 HYDROcodone/APAP 10-325MG [[place] 1 tab PO Q4-6H PRN 7 Days #28 tab 07/23/19 10-325] Cephalexin [Keflex] 500 mg PO Q12HR #14 cap 07/25/19 Allergies Allergy/AdvReac Type Severity Reaction Status Date / Time chlordiazepoxide HCl Allergy SEE COMMENT Verified 08/23/19 16:07 [From Librium] Penicillins Allergy Rash/Hives Verified 08/23/19 16:07 ketorolac [From Toradol] AdvReac ANXIETY Verified 08/23/19 16:07 prochlorperazine edisylate AdvReac PANIC Verified 08/23/19 16:07 [From Compazine] ATTACK prochlorperazine maleate AdvReac PANIC Verified 08/23/19 16:07 [From Compazine] ATTACK Review of Systems ROS Statement: Those systems with pertinent positive or pertinent negative responses have been documented in the HPI. ROS Other: All systems not noted in ROS Statement are negative. Past Medical History Past Medical History: Heart Failure, CVA/TIA, Liver Disease, Neurologic Disorder, Osteoarthritis (OA), Pneumonia Additional Past Medical History / Comment(s): Stroke with residual right-sided weakness 2017, TIAs, marfan's syndrome, ArnoldChiari malformation, spontaneous pneumothorax x 21, scoliosis and pectus excavatum secondary to Marfan's, chronic back pain, bilateral leg pain, gastric ulcers, sinus infections, STATED HAS POOR CIRCULATION, viral meningitis, HEP C. History of Any Multi-Drug Resistant Organisms: MRSA Date of last positivie culture/infection: 05/05/2010 MDRO Source:: back per patient Past Surgical History: Cardiac Valve Replacement, Coronary Bypass/CABG, Joint Replacement Additional Past Surgical History / Comment(s): right foot corrective surgery, R shoulder surgery following injury, CABG x4 vessel, aortic root graft, ao rtic/mitral valve replaced as child (2 separate surgeries last 10 years old), tiffani lens removed. spleenectomy 2018, L upper lobectomy d/t pneumothoraxs. Past Anesthesia/Blood Transfusion Reactions: No Reported Reaction Past Psychological History: Anxiety Smoking Status: Current every day smoker Past Alcohol Use History: None Reported, Occasional Past Drug Use History: Heroin, Marijuana - Past Family History Father Additional Family Medical History / Comment(s): Father is with history of AIDS. Mother Family Medical History: Diabetes Mellitus Additional Family Medical History / Comment(s): Mother at age 49 from liver cirrhosis secondary to alcohol abuse. Brother(s) Additional Family Medical History / Comment(s): Patient has one brother with no major medical problems. General Exam - General Exam Comments Initial Comments: Constitutional: NAD, AOX3, Pt has pleasant affect. HEENT: NC/AT, trachea midline, neck supple, no lymphadenopathy. Posterior pharynx non erythematous, without exudates. External ears appear normal, without discharge. Mucous membranes moist. Eyes PERRLA, EOM intact. There is no scleral icterus. No pallor noted. Cardiopulmonary: RRR, no murmurs, rubs or gallops, no JVD noted. Lungs CTAB in anterior and posterior lay. No peripheral edema. Abdominal exam: Abdomen soft and non-distended. Abdomen non-tender to palpation in all 4 quadrants. Bowel sounds active in LLQ. No hepatosplenomegaly. No ecchymosis Neuro: CN II-XII grossly intact. No nuchal rigidity. No raccon eyes, no carbone sign, no hemotympanum. No cervical spinal tenderness. MSK: No posterior calf tenderness bilaterally, homans sign negative bilaterally. Posterior tibialis and radial pulse +2 bilaterally. Sensation intact in upper and lower extremities. Full active ROM in upper and lower extremities, 5/5 stregnth. 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 Patient does have a history of reported Marfan's, aortic aneurysms. Patient will send this stable, patient is normally somewhat hypotensive at baseline. Abdomen slightly acute pathology. Laboratory investigations were drawn EKG was performed. Prior to result of laboratory investigations patient requests to sign out AMA due to not receiving narcotic pain medications. Discussed with patient that we have not ruled out pathology at this point yet. Risks were discussed including . Pt verbalized understanding. Will sign out AGAINST MEDICAL ADVICE. Case discussed with Dr. Mercado. - Lab Data Result diagrams: 08/23/19 16:15 Lab Results 08/23/19 08/23/19 Range/Units 16:15 16:15 PT 23.1 H (9.0-12.0) sec INR 2.4 H (<1.2) APTT 39.0 H (22.0-30.0) sec Sodium 137 (137-145) mmol/L Potassium 4.0 (3.5-5.1) mmol/L Chloride 102 (98-107) mmol/L Carbon Dioxide 25 (22-30) mmol/L Anion Gap 10 mmol/L BUN 13 (7-17) mg/dL Creatinine 0.57 (0.52-1.04) mg/dL Est GFR (CKD-EPI)AfAm >90 (>60 ml/min/1.73 sqM) Est GFR (CKD-EPI)NonAf >90 (>60 ml/min/1.73 sqM) Glucose 99 (74-99) mg/dL Calcium 9.3 (8.4-10.2) mg/dL Magnesium 1.7 (1.6-2.3) mg/dL Total Bilirubin 0.9 (0.2-1.3) mg/dL AST 31 (14-36) U/L ALT 14 (4-34) U/L Alkaline Phosphatase 103 (38-126) U/L Total Protein 8.3 H (6.3-8.2) g/dL Albumin 4.7 (3.5-5.0) g/dL - EKG Data -: EKG Interpreted by Me (and Dr. Mercado ) EKG Comments: ventricular rate 69,. Full 150, QRS 112, QT/QTc 440 successful 47. Attends rhythm, rightward axis, ST and T-wave abnormality, prolonged QT, acute change from prior. No concern for acute ischemia this time. Disposition Clinical Impression: Chest pain Disposition: Left Against Medical Advice Condition: Undetermined Is patient prescribed a controlled substance at d/c from ED?: No Referrals: [facility] [Primary Care Provider] - 1-2 days
[2019-08-23 16:47] LABS: INR 2.4 (<1.2); Prothrombin Time 23.1 sec (9.0-12.0)
[2019-08-23 16:53] LABS: ALT 14 U/L (4-34); AST 31 U/L (14-36); African American GFR (CKD) >90 (>60 ml/min/1.73 sqM); Albumin 4.7 g/dL (3.5-5.0); Alkaline Phosphatase 103 U/L (38-126); Anion Gap 10 mmol/L; Blood Urea Nitrogen 13 mg/dL (7-17); Calcium 9.3 mg/dL (8.4-10.2); Carbon Dioxide 25 mmol/L (22-30); Chloride 102 mmol/L (98-107); Glucose 99 mg/dL (74-99); Magnesium 1.7 mg/dL (1.6-2.3); Non-African American GFR(CKD) >90 (>60 ml/min/1.73 sqM); Sodium 137 mmol/L (137-145); Total Bilirubin 0.9 mg/dL (0.2-1.3); Total Protein 8.3 g/dL (6.3-8.2)
[2019-08-23 16:57] LABS: Basophils # (A) 0.1 k/uL (0-0.2); Basophils % (A) 1 %; Eosinophils # (A) 0.4 k/uL (0-0.7); Eosinophils % (A) 3 %; HCT 45.7 % (34.0-46.0); Lymphocytes # (A) 2.5 k/uL (1.0-4.8); Lymphocytes % (A) 21 %; MCH 33.2 pg (25.0-35.0); MCHC 32.8 g/dL (31.0-37.0); MCV 101.1 fL (80.0-100.0); Macrocytosis Slight; Mean Platelet Volume 8.4; Monocytes # (A) 0.7 k/uL (0-1.0); Monocytes % (A) 6 %; Neutrophils # (A) 8.1 k/uL (1.3-7.7); Neutrophils % (A) 67 %; Platelet Count 370 k/uL (150-450); RBC 4.51 m/uL (3.80-5.40); RDW 13.3 % (11.5-15.5)
[2019-08-23 16:59] LABS: Appearance,Urine Cloudy (Clear); Bacteria,Urine Moderate /hpf; Bilirubin,Urine Negative (Negative); Blood,Urine Small (Negative); Budding Yeast,Urine Occasional /hpf; Color,Urine Yellow; Glucose,Urine (UA) Negative (Negative); Ketones,Urine 1+ (Negative); Leukocyte Esterase,Urine Large (Negative); Mucus,Urine Few /hpf; Nitrite,Urine Negative (Negative); PH, Urine 5.5 (5.0-8.0); Protein,Urine Trace (Negative); RBC,Urine 7 /hpf (0-5); Specific Gravity,Urine 1.026 (1.001-1.035); Squamous Epithelial Cell,Urine 31 /hpf (0-4); WBC,Urine 33 /hpf (0-5)
== END 2019-08-23 17:11 | disposition left against medical advice (07) ==
LOC: EC 16:00
DX: R07.9 Chest pain, unspecified (principal); I95.9 Hypotension, unspecified; I50.9 Heart failure, unspecified; M19.90 Unspecified osteoarthritis, unspecified site; R53.1 Weakness; F41.9 Anxiety disorder, unspecified; F17.200 Nicotine dependence, unspecified, uncomplicated; Z87.798 Personal history of other (corrected) congenital malformations; Z79.82 Long term (current) use of aspirin; Z79.01 Long term (current) use of anticoagulants; Z79.899 Other long term (current) drug therapy; Z88.8 Allergy status to other drugs, medicaments and biological substances; Z88.0 Allergy status to penicillin; Z88.6 Allergy status to analgesic agent; Z95.1 Presence of aortocoronary bypass graft; Z95.2 Presence of prosthetic heart valve; Z98.890 Other specified postprocedural states; Z86.14 Personal history of Methicillin resistant Staphylococcus aureus infection; Z86.79 Personal history of other diseases of the circulatory system; Z86.73 Personal history of transient ischemic attack (TIA), and cerebral infarction without residual deficits
CPT/HCPCS: 36415; 80053; 81001; 81025; 83735; 83880; 84484; 85025; 85610; 85730; 87086; 93005; 99285

== ENCOUNTER 2019-10-17 17:50 | Emergency (ER) | payer OTHER ==
[2019-10-17 17:59] VITALS: BP 124/73; PULSE 68; RESP 16; TEMP 97.4
== END 2019-10-17 18:21 | disposition left against medical advice (07) ==
LOC: EC 17:50
DX: R56.9 Unspecified convulsions (principal)
CPT/HCPCS: 99499

== ENCOUNTER 2019-12-27 13:37 | Emergency (ER) | payer OTHER ==
[2019-12-27 13:42] VITALS: RESP 18
[2019-12-27 13:53] VITALS: PULSE 83
--- NOTE | 2019-12-27 14:26 | ED ---
General Adult HPI - General Source: patient Mode of arrival: wheelchair Limitations: physical limitation <Karina Marquez - Last Filed: 12/27/19 15:23> <Joseph Mercado - Last Filed: 12/27/19 15:39> - General Chief complaint: Neuro Symptoms/Deficit Stated complaint: neuro deficit Time Seen by Provider: 12/27/19 13:50 - History of Present Illness Initial comments: Patient is a 34-year-old female, with multiple comorbidities including CVA, neurological disorder, seizure disorder, Marfan's, well known to the ER, pr esenting to the emergency Department with complaints of blurry vision as well as left arm weakness that started this morning when she woke up at approximately 9 AM. Patient states she woke up having pain in her left hand, took her regular medications which includes [place]. Patient states she continued to feel pain in her left hand throughout the morning and then with the blurry vision was concern ed she might be having another stroke. Patient states she did not take more than her prescribed dose of narcotic. Patient denies any falls or trauma. She denies any lightheadedness, dizziness, weakness. She states she had does have residual right-sided weakness. She denies any belly pain. She does admit to a very mild headache. She denies any nausea, vomiting, diarrhea. She denies any fever or chills. She has no other complaints at this time. Upon arrival to the ER, her vitals are stable. (Karina Marquez) - Related Data Home Medications Medication Instructions Recorded Confirmed Cholecalciferol [Vitamin D3 (25 5,000 unit PO DAILY 05/18/18 07/27/19 Mcg = 1000 Iu)] DULoxetine HCL [Cymbalta] 60 mg PO BID 06/14/18 07/27/19 Ferrous Sulfate [Iron (65 MG 325 mg PO DAILY 06/14/18 07/27/19 Elemental)] Albuterol Inhaler (Bulk) [Ventolin 2 puff INHALATION RT-Q8H PRN 09/17/18 07/27/19 Hfa Inhaler (Bulk)] OLANZapine [ZyPREXA] 15 mg PO HS 04/19/19 07/27/19 Melatonin 3 mg PO HS 05/19/19 07/27/19 Cyanocobalamin (Vitamin B-12) 1,000 mcg PO DAILY 06/27/19 07/27/19 [Vitamin B-12] Aspirin EC [Ecotrin Low Dose] 81 mg PO DAILY 07/22/19 07/27/19 Gabapentin [Neurontin] 400 mg PO TID 07/22/19 07/27/19 Promethazine 6.25MG/5Ml [Phenergan 6.25 mg PO Q8H PRN 07/22/19 07/27/19 Syrup] Trospium Chloride 20 mg PO BID 07/22/19 07/27/19 Darifenacin Hydrobromide [Enablex] 7.5 mg PO DAILY 07/25/19 07/27/19 Metoprolol Tartrate [Lopressor] 25 mg PO BID 07/25/19 07/27/19 Warfarin [Coumadin] 5 mg PO TUSA 07/25/19 07/27/19 Warfarin [Coumadin] 7.5 mg PO SUMOWETHFR 07/25/19 07/27/19 Ondansetron [Zofran ODT] 4 mg PO Q8HR PRN 07/27/19 07/27/19 Previous Rx's Medication Instructions Recorded Carvedilol [Coreg] 6.25 mg PO BID #60 tab 07/23/19 HYDROcodone/APAP 10-325MG [[place] 1 tab PO Q4-6H PRN 7 Days #28 tab 07/23/19 10-325] Cephalexin [Keflex] 500 mg PO Q12HR #14 cap 07/25/19 Allergies Allergy/AdvReac Type Severity Reaction Status Date / Time chlordiazepoxide HCl Allergy SEE COMMENT Verified 12/27/19 13:43 [From Librium] Penicillins Allergy Rash/Hives Verified 12/27/19 13:43 ketorolac [From Toradol] AdvReac ANXIETY Verified 12/27/19 13:43 prochlorperazine edisylate AdvReac PANIC Verified 12/27/19 13:43 [From Compazine] ATTACK prochlorperazine maleate AdvReac PANIC Verified 12/27/19 13:43 [From Compazine] ATTACK Review of Systems ROS Other: All systems not noted in ROS Statement are negative. <Karina Marquez - Last Filed: 12/27/19 15:23> ROS Other: All systems not noted in ROS Statement are negative. <Joseph Mercado - Last Filed: 12/27/19 15:39> ROS Statement: Those systems with pertinent positive or pertinent negative responses have been documented in the HPI. Past Medical History Past Medical History: Heart Failure, CVA/TIA, Liver Disease, Neurologic Disorder, Osteoarthritis (OA), Pneumonia, Seizure Disorder Additional Past Medical History / Comment(s): Stroke with residual right-sided weakness 2017, TIAs, marfan's syndrome, ArnoldChiari malformation, spontaneous pneumothorax x 21, scoliosis and pectus excavatum secondary to Marfan's, chronic back pain, bilateral leg pain, gastric ulcers, sinus infections, STATED HAS POOR CIRCULATION, viral meningitis, HEP C. 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 spleenectomy 2018, L upper lobectomy d/t pneumothoraxs. Past Anesthesia/Blood Transfusion Reactions: No Reported Reaction Past Psychological History: Anxiety Smoking Status: Current every day smoker Past Alcohol Use History: None Reported, Occasional Past Drug Use History: Heroin, Marijuana - Past Family History Father Additional Family Medical History / Comment(s): Father is with history of AIDS. Mother Family Medical History: Diabetes Mellitus Additional Family Medical History / Comment(s): Mother at age 49 from liver cirrhosis secondary to alcohol abuse. Brother(s) Additional Family Medical History / Comment(s): Patient has one brother with no major medical problems. <Karina Marquez - Last Filed: 12/27/19 15:23> General Exam Limitations: physical limitation <Karina Marquez - Last Filed: 12/27/19 15:23> - General Exam Comments Initial Comments: GENERAL: Well-appearing, well-nourished and in no acute distress. HEAD: Atraumatic, normocephalic. EYES: Pupils equal round and reactive to light, extraocular movements intact, sclera anicteric, conjunctiva are normal. ENT: TMs normal, nares patent, oropharynx clear without exudates. Moist mucous membranes. NECK: Normal range of motion, supple without lymphadenopathy or JVD. LUNGS: Breath sounds clear to auscultation bilaterally and equal. No wheezes rales or rhonchi. HEART: Regular rate and rhythm without murmurs, rubs or gallops. ABDOMEN: Soft, nontender, normoactive bowel sounds. No guarding, no rebound. No masses appreciated. : Deferred EXTREMITIES: Residual right-sided weakness from a stroke. Strength is 4-5 in upper and lower extremities. Sensation is equal in bilateral upper and lower extremities. Normal range of motion, no pitting or edema. No clubbing or cyanosis. NEUROLOGICAL: Cranial nerves II through XII grossly intact. Normal speech, normal gait. PSYCH: Normal mood, normal affect. SKIN: Warm, Dry, normal turgor, no rashes or lesions noted. (Karina Marquez) Course Vital Signs 12/27/19 12/27/19 12/27/19 13:38 13:48 15:06 Temperature 97.9 F Pulse Rate 79 83 83 Respiratory 18 18 18 Rate Blood Pressure 112/72 127/59 125/76 O2 Sat by Pulse 95 98 98 Oximetry Medical Decision Making - Lab Data Result diagrams: 12/27/19 14:05 12/27/19 14:05 <Karina Marquez - Last Filed: 12/27/19 15:23> - Lab Data Result diagrams: 12/27/19 14:05 12/27/19 14:05 <Joseph Mercado - Last Filed: 12/27/19 15:39> - Medical Decision Making Patient is a 34-year-old female, well-known to the ER presenting with blurry vision and complaints of left wrist pain. Her vitals are stable upon arrival. Her exam is no acute neuro deficits. Her lab work shows no acute abnormalities. CT of the brain shows no acute intracranial process. I discussed with patient her results. Patient states she feels fine and is asking to be discharged. I discussed case in detail with Dr. Mercado who is in agreement with this plan of care. (Karina Marquez) Patient was earlier evaluated by myself, Dr. Mercado. Patient states her left arm feels funny. Good strength throughout. No weakness. No arm drift. No change in sensation. (Joseph Mercado) - Lab Data Lab Results 12/27/19 12/27/19 12/27/19 Range/Units 14:05 14:05 14:05 WBC 9.1 (3.8-10.6) k/uL RBC 4.41 (3.80-5.40) m/uL Hgb 14.8 (11.4-16.0) gm/dL Hct 46.4 H (34.0-46.0) % MCV 105.2 H (80.0-100.0) fL MCH 33.5 (25.0-35.0) pg MCHC 31.9 (31.0-37.0) g/dL RDW 13.9 (11.5-15.5) % Plt Count 311 (150-450) k/uL Neutrophils % 59 % Lymphocytes % 28 % Monocytes % 7 % Eosinophils % 3 % Basophils % 1 % Neutrophils # 5.3 (1.3-7.7) k/uL Lymphocytes # 2.6 (1.0-4.8) k/uL Monocytes # 0.6 (0-1.0) k/uL Eosinophils # 0.3 (0-0.7) k/uL Basophils # 0.1 (0-0.2) k/uL Macrocytosis Moderate PT 12.6 H (9.0-12.0) sec INR 1.2 H (<1.2) APTT 28.3 (22.0-30.0) sec Sodium 137 (137-145) mmol/L Potassium 4.2 (3.5-5.1) mmol/L Chloride 106 (98-107) mmol/L Carbon Dioxide 24 (22-30) mmol/L Anion Gap 7 mmol/L BUN 11 (7-17) mg/dL Creatinine 0.55 (0.52-1.04) mg/dL Est GFR (CKD-EPI)AfAm >90 (>60 ml/min/1.73 sqM) Est GFR (CKD-EPI)NonAf >90 (>60 ml/min/1.73 sqM) Glucose 98 (74-99) mg/dL Calcium 8.9 (8.4-10.2) mg/dL Total Bilirubin 0.6 (0.2-1.3) mg/dL AST 32 (14-36) U/L ALT 15 (4-34) U/L Alkaline Phosphatase 78 (38-126) U/L Total Protein 7.8 (6.3-8.2) g/dL Albumin 4.3 (3.5-5.0) g/dL Disposition Is patient prescribed a controlled substance at d/c from ED?: No <Karina Marquez - Last Filed: 12/27/19 15:23> <Joseph Mercado - Last Filed: 12/27/19 15:39> Clinical Impression: Wrist drop, Left wrist pain Disposition: HOME SELF-CARE Condition: Stable Instructions (If sedation given, give patient instructions): Normal Exam (ED) Additional Instructions: Please return to the Emergency Department if symptoms worsen or any other concerns. Follow-up with PCP. Referrals: [facility] [Primary Care Provider] - 1-2 days
--- NOTE | 2019-12-27 14:34 | CT ---
EXAMINATION TYPE: CT brain wo con DATE OF EXAM: 12/27/2019 COMPARISON: 05/19/2019 HISTORY: left arm weakness, [facility] CT DLP: 1080.[address] of the brain was performed. The ventricles, basal cisterns and sulci overlying the cerebral convexities demonstrate a stable appe arance. Prominence of the left frontal horn is unchanged and is likely developmental in nature. There is no evidence for intracranial hemorrhage or sulcal effacement. No mass effects are seen. Osseous calvarium is intact. If symptoms persist consider MRI as clinically warranted. IMPRESSION: 1. No acute intracranial process is seen at this time.
[2019-12-27 14:44] LABS: Basophils # (A) 0.1 k/uL (0-0.2); Basophils % (A) 1 %; Eosinophils # (A) 0.3 k/uL (0-0.7); Eosinophils % (A) 3 %; HCT 46.4 % (34.0-46.0); HGB 14.8 gm/dL (11.4-16.0); Lymphocytes # (A) 2.6 k/uL (1.0-4.8); Lymphocytes % (A) 28 %; MCH 33.5 pg (25.0-35.0); MCHC 31.9 g/dL (31.0-37.0); MCV 105.2 fL (80.0-100.0); Macrocytosis Moderate; Mean Platelet Volume 7.8; Monocytes # (A) 0.6 k/uL (0-1.0); Monocytes % (A) 7 %; Neutrophils # (A) 5.3 k/uL (1.3-7.7); Neutrophils % (A) 59 %; Platelet Count 311 k/uL (150-450); RBC 4.41 m/uL (3.80-5.40); RDW 13.9 % (11.5-15.5); WBC 9.1 k/uL (3.8-10.6)
[2019-12-27 14:49] LABS: ALT 15 U/L (4-34); AST 32 U/L (14-36); African American GFR (CKD) >90 (>60 ml/min/1.73 sqM); Albumin 4.3 g/dL (3.5-5.0); Alkaline Phosphatase 78 U/L (38-126); Anion Gap 7 mmol/L; Blood Urea Nitrogen 11 mg/dL (7-17); Calcium 8.9 mg/dL (8.4-10.2); Carbon Dioxide 24 mmol/L (22-30); Chloride 106 mmol/L (98-107); Glucose 98 mg/dL (74-99); INR 1.2 (<1.2); Non-African American GFR(CKD) >90 (>60 ml/min/1.73 sqM); Potassium 4.2 mmol/L (3.5-5.1); Sodium 137 mmol/L (137-145); Total Bilirubin 0.6 mg/dL (0.2-1.3); Total Protein 7.8 g/dL (6.3-8.2)
[2019-12-27 14:50] LABS: Partial Thromboplastin Time 28.3 sec (22.0-30.0); Prothrombin Time 12.6 sec (9.0-12.0)
[2019-12-27 15:08] VITALS: BP 125/76
[2019-12-27 15:52] VITALS: TEMP 97.8
== END 2019-12-27 15:52 | disposition home or self-care (01) ==
LOC: EC 13:37
DX: M21.339 Wrist drop, unspecified wrist (principal); M25.532 Pain in left wrist; H53.8 Other visual disturbances; I69.351 Hemiplegia and hemiparesis following cerebral infarction affecting right dominant side; I50.9 Heart failure, unspecified; F41.9 Anxiety disorder, unspecified; G40.909 Epilepsy, unspecified, not intractable, without status epilepticus; G89.29 Other chronic pain; B19.20 Unspecified viral hepatitis C without hepatic coma; F17.200 Nicotine dependence, unspecified, uncomplicated; Z95.4 Presence of other heart-valve replacement; Z86.14 Personal history of Methicillin resistant Staphylococcus aureus infection; Z87.798 Personal history of other (corrected) congenital malformations; Z79.01 Long term (current) use of anticoagulants; Z79.82 Long term (current) use of aspirin; Z79.899 Other long term (current) drug therapy; Z88.0 Allergy status to penicillin; Z88.6 Allergy status to analgesic agent; Z88.8 Allergy status to other drugs, medicaments and biological substances; Z95.1 Presence of aortocoronary bypass graft; Z95.2 Presence of prosthetic heart valve
CPT/HCPCS: 36415; 70450; 80053; 85025; 85610; 85730; 99285

== ENCOUNTER 2020-01-01 10:19 | Emergency (ER) | payer OTHER ==
[2020-01-01 10:26] VITALS: BP 118/59; PULSE 78; RESP 16; TEMP 98.2
--- NOTE | 2020-01-01 10:27 | ED ---
Chest Pain HPI - General Stated Complaint: chest pain/anxiety Time Seen by Provider: 01/01/20 10:19 Source: patient, EMS, RN notes reviewed, old records reviewed Mode of arrival: EMS - History of Present Illness Initial Comments: This is a 34-year-old female with a history of previous heart surgery as well as aortic issues and the past who presents by EMS with complaints of sudden onset of sharp lower midsternal chest pain it happened during a verbal altercation with her significant other. He states was moderate in severity not associated with any fevers chills nausea vomiting sweats cough or other symptoms. Is since she had any emesis the pain went away. She does have chronic chest wall pain she states. This is very similar to previous chest wall pain. No other modifying factors at this time. No trauma reported. MD Complaint: chest pain - Related Data Home Medications Medication Instructions Recorded Confirmed Cholecalciferol [Vitamin D3 (25 5,000 unit PO DAILY 05/18/18 07/27/19 Mcg = 1000 Iu)] DULoxetine HCL [Cymbalta] 60 mg PO BID 06/14/18 07/27/19 Ferrous Sulfate [Iron (65 MG 325 mg PO DAILY 06/14/18 07/27/19 Elemental)] Albuterol Inhaler (Mhu) [Ventolin 2 puff INHALATION RT-Q8H PRN 09/17/18 07/27/19 Hfa Inhaler (Mhu)] OLANZapine [ZyPREXA] 15 mg PO HS 04/19/19 07/27/19 Melatonin 3 mg PO HS 05/19/19 07/27/19 Cyanocobalamin (Vitamin B-12) 1,000 mcg PO DAILY 06/27/19 07/27/19 [Vitamin B-12] Aspirin EC [Ecotrin Low Dose] 81 mg PO DAILY 07/22/19 07/27/19 Gabapentin [Neurontin] 400 mg PO TID 07/22/19 07/27/19 Promethazine 6.25MG/5Ml [Phenergan 6.25 mg PO Q8H PRN 07/22/19 07/27/19 Syrup] Trospium Chloride 20 mg PO BID 07/22/19 07/27/19 Darifenacin Hydrobromide [Enablex] 7.5 mg PO DAILY 07/25/19 07/27/19 Metoprolol Tartrate [Lopressor] 25 mg PO BID 07/25/19 07/27/19 Warfarin [Coumadin] 5 mg PO TUSA 07/25/19 07/27/19 Warfarin [Coumadin] 7.5 mg PO SUMOWETHFR 07/25/19 07/27/19 Ondansetron [Zofran ODT] 4 mg PO Q8HR PRN 07/27/19 07/27/19 Previous Rx's Medication Instructions Recorded Carvedilol [Coreg] 6.25 mg PO BID #60 tab 07/23/19 HYDROcodone/APAP 10-325MG [[place] 1 tab PO Q4-6H PRN 7 Days #28 tab 07/23/19 10-325] Cephalexin [Keflex] 500 mg PO Q12HR #14 cap 07/25/19 Allergies Allergy/AdvReac Type Severity Reaction Status Date / Time chlordiazepoxide HCl Allergy SEE COMMENT Verified 12/27/19 13:43 [From Librium] Penicillins Allergy Rash/Hives Verified 12/27/19 13:43 ketorolac [From Toradol] AdvReac ANXIETY Verified 12/27/19 13:43 prochlorperazine edisylate AdvReac PANIC Verified 12/27/19 13:43 [From Compazine] ATTACK prochlorperazine maleate AdvReac PANIC Verified 12/27/19 13:43 [From Compazine] ATTACK Review of Systems ROS Statement: Those systems with pertinent positive or pertinent negative responses have been documented in the HPI. ROS Other: All systems not noted in ROS Statement are negative. EKG Findings - EKG Results: EKG: interpreted by RAMIREZ, sinus rhythm (Sinus rhythm rate is 76. Interval 178 QRS duration 114 QT since QTC 428/41 right allen axis incomplete right bundle- branch block prolonged QT) Past Medical History Past Medical History: Heart Failure, CVA/TIA, Liver Disease, Neurologic Disorder, Osteoarthritis (OA), Pneumonia, Seizure Disorder Additional Past Medical History / Comment(s): Stroke with residual right-sided weakness 2017, TIAs, marfan's syndrome, ArnoldChiari malformation, spontaneous pneumothorax x 21, scoliosis and pectus excavatum secondary to Marfan's, chronic back pain, bilateral leg pain, gastric ulcers, sinus infections, STATED HAS POOR CIRCULATION, viral meningitis, HEP C. 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 spleenectomy 2018, L upper lobectomy d/t pneumothoraxs. Past Anesthesia/Blood Transfusion Reactions: No Reported Reaction Past Psychological History: Anxiety Smoking Status: Current every day smoker Past Alcohol Use History: None Reported, Occasional Past Drug Use History: Heroin, Marijuana - Past Family History Father Additional Family Medical History / Comment(s): Father is with history of AIDS. Mother Family Medical History: Diabetes Mellitus Additional Family Medical History / Comment(s): Mother at age 49 from liver cirrhosis secondary to alcohol abuse. Brother(s) Additional Family Medical History / Comment(s): Patient has one brother with no major medical problems. General Exam - General Exam Comments Initial Comments: This is a well-developed sec appearing female who is awake alert oriented 3 General appearance: alert, in no apparent distress Head exam: Present: atraumatic, normocephalic, normal inspection Eye exam: Present: normal appearance, PERRL, EOMI. Absent: scleral icterus, conjunctival injection, periorbital swelling ENT exam: Present: normal exam, mucous membranes moist Neck exam: Present: normal inspection, full ROM. Absent: tenderness, meningismus, lymphadenopathy Respiratory exam: Present: normal lung sounds bilaterally, chest wall tenderness (Is palpation of the anterior chest wall the source of the pain this does reproduce the pain is over the costal sternal margins. No step-off or crepitation. Additionally the patient does demonstrate kyphosis.). Absent: respiratory distress, wheezes, rales, rhonchi, stridor Cardiovascular Exam: Present: regular rate, normal rhythm. Absent: systolic murmur, diastolic murmur, rubs, gallop, clicks GI/Abdominal exam: Present: soft, normal bowel sounds. Absent: distended, tenderness, guarding, rebound, rigid Extremities exam: Present: normal inspection, full ROM, normal capillary refill. Absent: tenderness, pedal edema, joint swelling, calf tenderness Back exam: Present: normal inspection Neurological exam: Present: alert, oriented X3, CN II-XII intact Psychiatric exam: Present: normal affect, normal mood Skin exam: Present: warm, dry, intact, normal color. 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 Reevaluation #2: 01/01/20 10:58 Patient decided to leave AGAINST MEDICAL ADVICE pending complete evaluation of her presentation. Patient is going to accept the risks. She is well aware them. She does demonstrate adequate decision-making capacity. Disposition Clinical Impression: Atypical chest pain, Chest wall syndrome Disposition: Left Against Medical Advice Condition: Stable Is patient prescribed a controlled substance at d/c from ED?: No Referrals: [facility] [Primary Care Provider] - 1-2 days
--- NOTE | 2020-01-01 11:11 | XR ---
EXAMINATION TYPE: XR chest 2V DATE OF EXAM: 01/01/2020 COMPARISON: 07/27/2019 INDICATION: Chest pain TECHNIQUE: Frontal and lateral views of the chest are obtained. FINDINGS: The heart size is normal. The pulmonary vasculature is normal. The lungs are clear. Scoliosis is present. Sternotomy wires are present. Old right proximal humeral fracture repair is evident. IMPRESSION: 1. No acute pulmonary process.
== END 2020-01-01 10:57 | disposition left against medical advice (07) ==
LOC: EC 10:19
DX: R07.89 Other chest pain (principal); F41.9 Anxiety disorder, unspecified; G40.909 Epilepsy, unspecified, not intractable, without status epilepticus; I50.9 Heart failure, unspecified; F17.200 Nicotine dependence, unspecified, uncomplicated; Z79.82 Long term (current) use of aspirin; Z79.01 Long term (current) use of anticoagulants; Z79.899 Other long term (current) drug therapy; Z88.0 Allergy status to penicillin; Z88.5 Allergy status to narcotic agent; Z88.8 Allergy status to other drugs, medicaments and biological substances; Z86.73 Personal history of transient ischemic attack (TIA), and cerebral infarction without residual deficits; Z95.1 Presence of aortocoronary bypass graft; Z95.2 Presence of prosthetic heart valve
CPT/HCPCS: 71046; 93005; 99285

== ENCOUNTER 2020-04-27 10:43 | Emergency (ER) | payer OTHER ==
[2020-04-27 10:54] VITALS: RESP 19; TEMP 98.5
--- NOTE | 2020-04-27 11:13 | ED ---
Chest Pain HPI - General Chief Complaint: Chest Pain Stated Complaint: Chest Pain Time Seen by Provider: 04/27/20 10:50 Source: EMS Mode of arrival: EMS Limitations: no limitations - History of Present Illness Initial Comments: Patient is a 34-year-old female, well-known to the ER, presenting with complaints of left-sided chest pain that started yesterday. She does have history of heart surgery as well as aortic issues and has had chest pains in the past. She states this does feel like chest pain she has had in the past. This started when she was watching TV yesterday. She feels like it is starting to get worse. She describes the pain as on the left side of her lateral chest, denies any radiation. He denies any shortness of breath, fever, chills, sweating. She denies any recent cough or cold symptoms. Denies being nauseous or vomiting. she declined taking nitro via EMS. She has no other complaints at this time. Upon arrival to the ER, vital signs are stable. - Related Data Home Medications Medication Instructions Recorded Confirmed Cholecalciferol [Vitamin D3 (25 5,000 unit PO DAILY 05/18/18 07/27/19 Mcg = 1000 Iu)] DULoxetine HCL [Cymbalta] 60 mg PO BID 06/14/18 07/27/19 Ferrous Sulfate [Iron (65 MG 325 mg PO DAILY 06/14/18 07/27/19 Elemental)] Albuterol Inhaler (Mhu) [Ventolin 2 puff INHALATION RT-Q8H PRN 09/17/18 07/27/19 Hfa Inhaler (Mhu)] OLANZapine [ZyPREXA] 15 mg PO HS 04/19/19 07/27/19 Melatonin 3 mg PO HS 05/19/19 07/27/19 Cyanocobalamin (Vitamin B-12) 1,000 mcg PO DAILY 06/27/19 07/27/19 [Vitamin B-12] Aspirin EC [Ecotrin Low Dose] 81 mg PO DAILY 07/22/19 07/27/19 Gabapentin [Neurontin] 400 mg PO TID 07/22/19 07/27/19 Promethazine 6.25MG/5Ml [Phenergan 6.25 mg PO Q8H PRN 07/22/19 07/27/19 Syrup] Trospium Chloride 20 mg PO BID 07/22/19 07/27/19 Darifenacin Hydrobromide [Enablex] 7.5 mg PO DAILY 07/25/19 07/27/19 Metoprolol Tartrate [Lopressor] 25 mg PO BID 07/25/19 07/27/19 Warfarin [Coumadin] 5 mg PO TUSA 07/25/19 07/27/19 Warfarin [Coumadin] 7.5 mg PO SUMOWETHFR 07/25/19 07/27/19 Ondansetron [Zofran ODT] 4 mg PO Q8HR PRN 07/27/19 07/27/19 Previous Rx's Medication Instructions Recorded HYDROcodone/APAP 10-325MG [[place] 1 tab PO Q4-6H PRN 7 Days #28 tab 07/23/19 10-325] carvediloL [Coreg] 6.25 mg PO BID #60 tab 07/23/19 Cephalexin [Keflex] 500 mg PO Q12HR #14 cap 07/25/19 Allergies Allergy/AdvReac Type Severity Reaction Status Date / Time chlordiazepoxide HCl Allergy SEE COMMENT Verified 12/27/19 13:43 [From Librium] Penicillins Allergy Rash/Hives Verified 12/27/19 13:43 ketorolac [From Toradol] AdvReac ANXIETY Verified 12/27/19 13:43 prochlorperazine edisylate AdvReac PANIC Verified 12/27/19 13:43 [From Compazine] ATTACK prochlorperazine maleate AdvReac PANIC Verified 12/27/19 13:43 [From Compazine] ATTACK Review of Systems ROS Statement: Those systems with pertinent positive or pertinent negative responses have been documented in the HPI. ROS Other: All systems not noted in ROS Statement are negative. EKG Findings - EKG Comments: EKG Findings:: sinus rhythm with frequent PVCs, rightward axis, T-wave abnormalities, ventricular rate 69, VT interval 184, QTC 446. Compared to previous EKG in 01/01/2020. Past Medical History Past Medical History: Heart Failure, CVA/TIA, Liver Disease, Neurologic Disorder, Osteoarthritis (OA), Pneumonia, Seizure Disorder Additional Past Medical History / Comment(s): Stroke with residual right-sided weakness 2017, TIAs, marfan's syndrome, ArnoldChiari malformation, spontaneous pneumothorax x 21, scoliosis and pectus excavatum secondary to Marfan's, chronic back pain, bilateral leg pain, gastric ulcers, sinus infections, STATED HAS POOR CIRCULATION, viral meningitis, HEP C. 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 spleenectomy 2018, L upper lobectomy d/t pneumothoraxs. Past Anesthesia/Blood Transfusion Reactions: No Reported Reaction Past Psychological History: Anxiety Smoking Status: Current every day smoker Past Alcohol Use History: None Reported, Occasional Past Drug Use History: Heroin, Marijuana - Past Family History Father Additional Family Medical History / Comment(s): Father is with history of AIDS. Mother Family Medical History: Diabetes Mellitus Additional Family Medical History / Comment(s): Mother at age 49 from liver cirrhosis secondary to alcohol abuse. Brother(s) Additional Family Medical History / Comment(s): Patient has one brother with no major medical problems. General Exam - General Exam Comments Initial Comments: GENERAL: Patient is well-developed and well-nourished. Patient is nontoxic and in no acute distress. HEAD: Atraumatic, normocephalic. EYES: Pupils equal round and reactive to light, extraocular movements intact, sclera anicteric, conjunctiva are normal. Eyelids were unremarkable. ENT: TMs normal, nares patent, oropharynx clear without exudates. Moist mucous membr anes. NECK: Normal range of motion, supple without lymphadenopathy or JVD. LUNGS: Unlabored respirations. Breath sounds clear to auscultation bilaterally and equal. No wheezes rales or rhonchi. HEART: Regular rate and rhythm without murmurs, rubs or gallops. ABDOMEN: Soft, nontender, normoactive bowel sounds. No guarding, no rebound. No masses appreciated. : Deferred MUSCULOSKELETAL: right-sided weakness secondary to previous stroke. Rest of extremities with adequate strength and normal range of motion, no pitting or edema. No clubbing or cyanosis. NEUROLOGICAL: Patient is alert and oriented x 3. Motor and sensory are also intact. Cranial nerves II through XII grossly intact. Symmetrical smile. Normal speech, normal gait. PSYCH: Normal mood, normal affect. SKIN: Warm, Dry, normal turgor, no rashes or lesions noted. Limitations: no limitations Course Vital Signs 04/27/20 10:50 Temperature 98.5 F Pulse Rate 66 Respiratory 19 Rate Blood Pressure 116/69 O2 Sat by Pulse 97 Oximetry Chest Pain MDM - [facility] patient is a 34-year-old female well known to the ER presenting for left-sided chest pain as started yesterday. She does have a history of chest pains and this feels similar nature. Her vital signs are stable. Exam is unremarkable. EKG shows no acute changes when compared to her previous, lab work is unremarkable, troponin is normal, chest x-ray shows no acute process. 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 Patient does not want to stay in the hospital for further workup. She is stable for discharge. Patient was given one tablet of [place] for her pain. She is agreement with this plan of care. Return parameters were discussed with the patient she verbalized understanding. Case discussed with Dr. Jean. Disposition Clinical Impression: Atypical chest pain Disposition: HOME SELF-CARE Condition: Stable Instructions (If sedation given, give patient instructions): Chest Pain (ED) Additional Instructions: Please return to the Emergency Department if symptoms worsen or any other concerns. Follow up with PCP and gumming machine operator. Is patient prescribed a controlled substance at d/c from ED?: No Referrals: [facility] [Primary Care Provider] - 1-2 days
[2020-04-27 11:52] LABS: Basophils # (A) 0.2 k/uL (0-0.2); Basophils % (A) 2 %; Eosinophils # (A) 0.5 k/uL (0-0.7); Eosinophils % (A) 5 %; HCT 48.9 % (34.0-46.0); HGB 15.3 gm/dL (11.4-16.0); Lymphocytes # (A) 2.8 k/uL (1.0-4.8); Lymphocytes % (A) 29 %; MCH 31.9 pg (25.0-35.0); MCHC 31.3 g/dL (31.0-37.0); MCV 101.9 fL (80.0-100.0); Macrocytosis Slight; Mean Platelet Volume 7.8; Monocytes # (A) 0.6 k/uL (0-1.0); Monocytes % (A) 6 %; Neutrophils # (A) 5.2 k/uL (1.3-7.7); Neutrophils % (A) 55 %; Platelet Count 356 k/uL (150-450); WBC 9.4 k/uL (3.8-10.6)
--- NOTE | 2020-04-27 12:03 | XR ---
EXAMINATION TYPE: XR chest 2V DATE OF EXAM: 04/27/2020 COMPARISON: 01/01/2020 HISTORY: 34-year-old female left-sided chest pain TECHNIQUE: PA and lateral views FINDINGS: Underlying scoliosis. Heart mildly enlarged. Partially visualized plate and screw fixation proximal r ight humerus. Hyperinflation. Gibbus deformity thoracolumbar junction. No kiran consolidation or pleu ral effusion seen. Median sternotomy wires. IMPRESSION: Scoliosis and gibbus deformity. Mild cardiomegaly. Suspect underlying COPD. No definite acute process .
[2020-04-27 12:04] LABS: ALT 12 U/L (4-34); AST 25 U/L (14-36); African American GFR (CKD) >90 (>60 ml/min/1.73 sqM); Albumin 4.4 g/dL (3.5-5.0); Alkaline Phosphatase 91 U/L (38-126); Anion Gap 8 mmol/L; Blood Urea Nitrogen 6 mg/dL (7-17); Calcium 9.1 mg/dL (8.4-10.2); Carbon Dioxide 25 mmol/L (22-30); Chloride 104 mmol/L (98-107); Glucose 88 mg/dL (74-99); Non-African American GFR(CKD) >90 (>60 ml/min/1.73 sqM); Potassium 4.8 mmol/L (3.5-5.1); Sodium 137 mmol/L (137-145); Total Bilirubin 0.5 mg/dL (0.2-1.3); Total Protein 7.9 g/dL (6.3-8.2)
[2020-04-27 12:16] LABS: INR 2.5 (<1.2); Partial Thromboplastin Time 41.1 sec (22.0-30.0); Prothrombin Time 24.5 sec (9.0-12.0)
[2020-04-27] MEDS ORDERED: HYDROcodone/APAP 5-325MG 1 EACH TAB PO STA (12:42)
[2020-04-27 12:52] VITALS: BP 122/81; PULSE 73
== END 2020-04-27 13:00 | disposition home or self-care (01) ==
LOC: EC 10:43
DX: R07.89 Other chest pain (principal); F17.200 Nicotine dependence, unspecified, uncomplicated; M19.90 Unspecified osteoarthritis, unspecified site; F41.9 Anxiety disorder, unspecified; I50.9 Heart failure, unspecified; I69.351 Hemiplegia and hemiparesis following cerebral infarction affecting right dominant side; Z79.01 Long term (current) use of anticoagulants; Z79.82 Long term (current) use of aspirin; Z79.899 Other long term (current) drug therapy; Z88.0 Allergy status to penicillin; Z88.6 Allergy status to analgesic agent; Z88.8 Allergy status to other drugs, medicaments and biological substances; Z95.1 Presence of aortocoronary bypass graft; Z86.14 Personal history of Methicillin resistant Staphylococcus aureus infection
CPT/HCPCS: 36415; 71046; 80053; 83735; 84484; 85025; 85610; 85730; 93005; 99285

== ENCOUNTER 2020-07-02 16:24 | Emergency (ER) | payer OTHER ==
[2020-07-02 16:37] VITALS: RESP 18
[2020-07-02 17:02] LABS: Basophils # (A) 0.2 k/uL (0-0.2); Basophils % (A) 2 %; Eosinophils # (A) 0.2 k/uL (0-0.7); Eosinophils % (A) 3 %; HCT 51.7 % (34.0-46.0); HGB 16.8 gm/dL (11.4-16.0); Lymphocytes # (A) 2.4 k/uL (1.0-4.8); Lymphocytes % (A) 26 %; MCH 34.1 pg (25.0-35.0); MCHC 32.5 g/dL (31.0-37.0); MCV 104.8 fL (80.0-100.0); Macrocytosis Slight; Mean Platelet Volume 7.6; Monocytes # (A) 0.5 k/uL (0-1.0); Monocytes % (A) 6 %; Neutrophils # (A) 5.7 k/uL (1.3-7.7); Neutrophils % (A) 62 %; Platelet Count 388 k/uL (150-450); RBC 4.93 m/uL (3.80-5.40); RDW 13.2 % (11.5-15.5); WBC 9.2 k/uL (3.8-10.6)
--- NOTE | 2020-07-02 17:10 | XR ---
EXAMINATION TYPE: XR chest 2V DATE OF EXAM: 07/02/2020 COMPARISON: 05/28/2020 HISTORY: Chest pain TECHNIQUE: There is no heart failure nor confluent FINDINGS: There is no heart failure nor confluent pneumonic infiltrate. There is lower thoracic kypho tic deformity. Costophrenic angles are clear. There are no hilar masses. Thoracic aorta is tortuous. There are sternal wires. IMPRESSION: No active cardiopulmonary disease. No change.
[2020-07-02 17:13] LABS: ALT 16 U/L (4-34); AST 41 U/L (14-36); African American GFR (CKD) >90 (>60 ml/min/1.73 sqM); Albumin 4.8 g/dL (3.5-5.0); Alkaline Phosphatase 96 U/L (38-126); Anion Gap 8 mmol/L; Blood Urea Nitrogen 8 mg/dL (7-17); Calcium 9.3 mg/dL (8.4-10.2); Carbon Dioxide 25 mmol/L (22-30); Chloride 103 mmol/L (98-107); Glucose 89 mg/dL (74-99); Lipase 27 U/L (23-300); Non-African American GFR(CKD) >90 (>60 ml/min/1.73 sqM); Sodium 136 mmol/L (137-145); Total Bilirubin 1.1 mg/dL (0.2-1.3); Total Protein 8.8 g/dL (6.3-8.2)
[2020-07-02 17:23] LABS: Potassium 4.8 mmol/L (3.5-5.1)
--- NOTE | 2020-07-02 17:56 | ED ---
Chest Pain HPI - General Chief Complaint: Chest Pain Stated Complaint: chest pain Time Seen by Provider: 07/02/20 16:31 Source: patient, EMS, RN notes reviewed Mode of arrival: EMS Limitations: no limitations - History of Present Illness Initial Comments: This is a 35-year-old female presents emergency Department chief complaint of chest pain, rib pain. Patient states has been on and off today. Patient has chronic issues with this. Patient denies any shortness of breath no fevers or chills. Patient has no abdominal plain so leg swelling no leg pain. Patient does take Coumadin states that she's not missed any doses denies any current drug use. - Related Data Home Medications Medication Instructions Recorded Confirmed Cholecalciferol [Vitamin D3 (25 5,000 unit PO DAILY 05/18/18 07/02/20 Mcg = 1000 Iu)] DULoxetine HCL [Cymbalta] 60 mg PO DAILY 06/14/18 07/02/20 Ferrous Sulfate [Iron (65 MG 325 mg PO DAILY 06/14/18 07/02/20 Elemental)] OLANZapine [ZyPREXA] 15 mg PO HS 04/19/19 07/02/20 Aspirin EC [Ecotrin Low Dose] 81 mg PO DAILY 07/22/19 07/02/20 Promethazine 6.25MG/5Ml [Phenergan 6.25 mg PO Q8H PRN 07/22/19 07/02/20 Syrup] Metoprolol Tartrate [Lopressor] 25 mg PO BID 07/25/19 07/02/20 Warfarin [Coumadin] 5 mg PO Q48H 07/25/19 07/02/20 Albuterol Sulfate [Proair Hfa] 1 - 2 puff INHALATION RT-Q6H PRN 07/02/20 07/02/20 Furosemide [Lasix] 20 mg PO Q48H PRN 07/02/20 07/02/20 Gabapentin 600 mg PO TID 07/02/20 07/02/20 HYDROcodone/APAP 7.5-325MG [[place] 1 tab PO BID PRN 07/02/20 07/02/20 7.5-325] Ondansetron [Zofran] 4 mg PO DAILY PRN 07/02/20 07/02/20 Potassium Chloride 10 meq PO Q48H PRN 07/02/20 07/02/20 Warfarin Sodium 4 mg PO Q48H 07/02/20 07/02/20 Previous Rx's Medication Instructions Recorded carvediloL [Coreg] 6.25 mg PO BID #60 tab 07/23/19 Allergies Allergy/AdvReac Type Severity Reaction Status Date / Time chlordiazepoxide HCl Allergy SEE COMMENT Verified 07/02/20 17:22 [From Librium] Penicillins Allergy Rash/Hives Verified 07/02/20 17:22 ketorolac [From Toradol] AdvReac ANXIETY Verified 07/02/20 17:22 prochlorperazine edisylate AdvReac PANIC Verified 07/02/20 17:22 [From Compazine] ATTACK prochlorperazine maleate AdvReac PANIC Verified 07/02/20 17:22 [From Compazine] ATTACK Review of Systems ROS Statement: Those systems with pertinent positive or pertinent negative responses have been documented in the HPI. ROS Other: All systems not noted in ROS Statement are negative. Past Medical History Past Medical History: Heart Failure, CVA/TIA, Liver Disease, Neurologic Disorder, Osteoarthritis (OA), Pneumonia, Seizure Disorder Additional Past Medical History / Comment(s): Stroke with residual right-sided weakness 2017, TIAs, marfan's syndrome, ArnoldChiari malformation, spontaneous pneumothorax x 21, scoliosis and pectus excavatum secondary to Marfan's, chronic back pain, bilateral leg pain, gastric ulcers, sinus infections, STATED HAS POOR CIRCULATION, viral meningitis, HEP C. 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 spleenectomy 2018, L upper lobectomy d/t pneumothoraxs. Past Anesthesia/Blood Transfusion Reactions: No Reported Reaction Past Psychological History: Anxiety Smoking Status: Current every day smoker Past Alcohol Use History: None Reported Past Drug Use History: Marijuana - Past Family History Father Additional Family Medical History / Comment(s): Father is with history of AIDS. Mother Family Medical History: Diabetes Mellitus Additional Family Medical History / Comment(s): Mother at age 49 from liver cirrhosis secondary to alcohol abuse. Brother(s) Additional Family Medical History / Comment(s): Patient has one brother with no major medical problems. General Exam General appearance: alert, in no apparent distress Head exam: Present: atraumatic, normocephalic, normal inspection Eye exam: Present: normal appearance, PERRL, EOMI. Absent: scleral icterus, conjunctival injection, periorbital swelling ENT exam: Present: normal exam, normal oropharynx, mucous membranes moist Neck exam: Present: normal inspection, full ROM. Absent: tenderness, meningismus, lymphadenopathy Respiratory exam: Present: normal lung sounds bilaterally, chest wall tenderness. Absent: respiratory distress, wheezes, rales, rhonchi, stridor Cardiovascular Exam: Present: regular rate, normal rhythm, normal heart sounds. Absent: systolic murmur, diastolic murmur, rubs, gallop, clicks Extremities exam: Absent: normal inspection Back exam: Absent: normal inspection (Large deformity of the back, scoliosis) Neurological exam: Present: alert, oriented X3 Course Vital Signs 07/02/20 16:28 Temperature 98.1 F Pulse Rate 70 Respiratory 18 Rate Blood Pressure 107/56 O2 Sat by Pulse 97 Oximetry Chest Pain MDM - MDM 35-year-old presented for reproducible chest wall pain. Patient had on-and-off symptoms. Patient EKG labs unremarkable. Patient's INR 1.7 she was updated on this study subtherapeutic INR. Patient still has taken tonight's dose. Patient will be discharged in stable condition. Disposition Clinical Impression: Chest wall pain Disposition: HOME SELF-CARE Condition: Stable Instructions (If sedation given, give patient instructions): Chest Pain (ED) Additional Instructions: Please return to the Emergency Department if symptoms worsen or any other concerns. Is patient prescribed a controlled substance at d/c from ED?: No Referrals: [facility] [Primary Care Provider] - 1-2 days Time of Disposition: 18:35
[2020-07-02 18:06] LABS: INR 1.7 (<1.2); Partial Thromboplastin Time 33.5 sec (22.0-30.0); Prothrombin Time 16.7 sec (9.0-12.0)
[2020-07-02] MEDS ORDERED: HYDROcodone/APAP 7.5-325MG 1 EACH TAB PO ONE (18:35)
[2020-07-02 19:10] VITALS: BP 123/53; PULSE 66; TEMP 98.4
== END 2020-07-02 19:10 | disposition home or self-care (01) ==
LOC: EC 16:24
DX: R07.89 Other chest pain (principal); G89.29 Other chronic pain; M54.9 Dorsalgia, unspecified; M19.90 Unspecified osteoarthritis, unspecified site; I50.9 Heart failure, unspecified; F41.9 Anxiety disorder, unspecified; G40.909 Epilepsy, unspecified, not intractable, without status epilepticus; F17.200 Nicotine dependence, unspecified, uncomplicated; Z79.899 Other long term (current) drug therapy; Z79.82 Long term (current) use of aspirin; Z79.01 Long term (current) use of anticoagulants; Z88.6 Allergy status to analgesic agent; Z88.8 Allergy status to other drugs, medicaments and biological substances; Z88.0 Allergy status to penicillin; Z86.73 Personal history of transient ischemic attack (TIA), and cerebral infarction without residual deficits; Z86.14 Personal history of Methicillin resistant Staphylococcus aureus infection; Z95.4 Presence of other heart-valve replacement; Z95.1 Presence of aortocoronary bypass graft; Z96.60 Presence of unspecified orthopedic joint implant
CPT/HCPCS: 36415; 71046; 80053; 83690; 83735; 84484; 85025; 85610; 85730; 93005; 99285

== ENCOUNTER 2020-07-17 13:45 | Emergency (ER) | payer OTHER ==
--- NOTE | 2020-07-17 14:28 | ED ---
General Adult HPI - General Chief complaint: Abdominal Pain Stated complaint: constipation Time Seen by Provider: 07/17/20 14:09 Source: patient Mode of arrival: EMS Limitations: no limitations - History of Present Illness Initial comments: Patient is a 35-year-old female, well-known to the ER, presenting to the emergency Department with complaints of constipation, some abdominal cramping and mild nausea for the past week. Patient states he tried taking milk of magnesia for constipation without any improvement. Patient states she has not had a second bowel movement in over a week. She denies any specific area pains, just describes some lower abdominal cramping. She does admit to some nausea that has been intermittent over the past week, no vomiting. She denies any fever, chest pain, shortness of breath. She has been able to pass gas, no diarrhea. She has no further complaints at this time. Upon arrival to the ER, her vital signs are stable. - Related Data Home Medications Medication Instructions Recorded Confirmed Cholecalciferol [Vitamin D3 (25 5,000 unit PO DAILY 05/18/18 07/02/20 Mcg = 1000 Iu)] DULoxetine HCL [Cymbalta] 60 mg PO DAILY 06/14/18 07/02/20 Ferrous Sulfate [Iron (65 MG 325 mg PO DAILY 06/14/18 07/02/20 Elemental)] OLANZapine [ZyPREXA] 15 mg PO HS 04/19/19 07/02/20 Aspirin EC [Ecotrin Low Dose] 81 mg PO DAILY 07/22/19 07/02/20 Promethazine 6.25MG/5Ml [Phenergan 6.25 mg PO Q8H PRN 07/22/19 07/02/20 Syrup] Metoprolol Tartrate [Lopressor] 25 mg PO BID 07/25/19 07/02/20 Warfarin [Coumadin] 5 mg PO Q48H 07/25/19 07/02/20 Albuterol Sulfate [Proair Hfa] 1 - 2 puff INHALATION RT-Q6H PRN 07/02/20 07/02/20 Furosemide [Lasix] 20 mg PO Q48H PRN 07/02/20 07/02/20 Gabapentin 600 mg PO TID 07/02/20 07/02/20 HYDROcodone/APAP 7.5-325MG [[place] 1 tab PO BID PRN 07/02/20 07/02/20 7.5-325] Ondansetron [Zofran] 4 mg PO DAILY PRN 07/02/20 07/02/20 Potassium Chloride 10 meq PO Q48H PRN 07/02/20 07/02/20 Warfarin Sodium 4 mg PO Q48H 07/02/20 07/02/20 Previous Rx's Medication Instructions Recorded carvediloL [Coreg] 6.25 mg PO BID #60 tab 07/23/19 Allergies Allergy/AdvReac Type Severity Reaction Status Date / Time chlordiazepoxide HCl Allergy SEE COMMENT Verified 07/02/20 17:22 [From Librium] Penicillins Allergy Rash/Hives Verified 07/02/20 17:22 ketorolac [From Toradol] AdvReac ANXIETY Verified 07/02/20 17:22 prochlorperazine edisylate AdvReac PANIC Verified 07/02/20 17:22 [From Compazine] ATTACK prochlorperazine maleate AdvReac PANIC Verified 07/02/20 17:22 [From Compazine] ATTACK Review of Systems ROS Statement: Those systems with pertinent positive or pertinent negative responses have been documented in the HPI. ROS Other: All systems not noted in ROS Statement are negative. Past Medical History Past Medical History: Heart Failure, CVA/TIA, Liver Disease, Neurologic Disorder, Osteoarthritis (OA), Pneumonia, Seizure Disorder Additional Past Medical History / Comment(s): Stroke with residual right-sided weakness 2017, TIAs, marfan's syndrome, ArnoldChiari malformation, spontaneous pneumothorax x 21, scoliosis and pectus excavatum secondary to Marfan's, chronic back pain, bilateral leg pain, gastric ulcers, sinus infections, STATED HAS POOR CIRCULATION, viral meningitis, HEP C. 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 spleenectomy 2018, L upper lobectomy d/t pneumothoraxs. Past Anesthesia/Blood Transfusion Reactions: No Reported Reaction Past Psychological History: Anxiety Smoking Status: Current every day smoker Past Alcohol Use History: None Reported Past Drug Use History: Marijuana - Past Family History Father Additional Family Medical History / Comment(s): Father is with history of AIDS. Mother Family Medical History: Diabetes Mellitus Additional Family Medical History / Comment(s): Mother at age 49 from liver cirrhosis secondary to alcohol abuse. Brother(s) Additional Family Medical History / Comment(s): Patient has one brother with no major medical problems. General Exam - General Exam Comments Initial Comments: GENERAL: Patient is well-developed and well-nourished. Patient is nontoxic and in no acute distress. HEAD: Atraumatic, normocephalic. EYES: Pupils equal round and reactive to light, extraocular movements intact, sclera anicteric, conjunctiva are normal. Eyelids were unremarkable. ENT: TMs normal, nares patent, oropharynx clear without exudates. Moist mucous membranes. NECK: Normal range of motion, supple without lymphadenopathy or JVD. LUNGS: Unlabored respirations. Breath sounds clear to auscultation bilaterally and equal. No wheezes rales or rhonchi. HEART: Regular rate and rhythm without murmurs, rubs or gallops. ABDOMEN: Generalized lower abdominal discomfort, no specific area pain. Soft, normoactive bowel sounds. No guarding, no rebound. No masses appreciated. : Deferred MUSCULOSKELETAL: Normal extremities with adequate strength and normal range of motion, no pitting or edema. No clubbing or cyanosis. NEUROLOGICAL: Patient is alert and oriented x 3. Motor and sensory are also intact. Cranial nerves II through XII grossly intact. PSYCH: Normal mood, normal affect. SKIN: Warm, Dry, normal turgor, no rashes or lesions noted. Limitations: no limitations Course Vital Signs 07/17/20 07/17/20 13:53 15:00 Temperature 98.7 F Pulse Rate 67 8 L Respiratory 18 20 Rate Blood Pressure 135/64 121/65 O2 Sat by Pulse 95 99 Oximetry Medical Decision Making - Medical Decision Making Patient is a 35-year-old female, well-known to the ER, presenting with const ipation, lower abdominal cramping for one week, mild nausea. Her vital signs are stable. Patient has no specific area of abdominal pain. KUB shows mild stool, small air-fluid levels could represent enteritis, nonobstructive gas bowel pattern. Urine shows 21 WBCs, very dirty sample, HTN is not detected. Patient was reexamined and found to be sleeping comfortably in the room. I discussed these findings with the patient. Patient should take MiraLAX as well as one day of a laxative to help with the constipation. Patient is agreement with this plan of care. She is stable for discharge. She can follow up with her PCP. Return parameters were discussed with the patient she verbalized understanding. - Lab Data Lab Results 07/17/20 07/17/20 Range/Units 14:32 14:32 Urine Color Yellow Urine Appearance Cloudy H (Clear) Urine pH 8.0 (5.0-8.0) Ur Specific [place] 1.024 (1.001-1.035) Urine Protein 1+ H (Negative) Urine Glucose (UA) Negative (Negative) Urine Ketones Trace H (Negative) Urine Blood Negative (Negative) Urine Nitrite Negative (Negative) Urine Bilirubin Negative (Negative) Urine Urobilinogen 3.0 (<2.0) mg/dL Ur Leukocyte Esterase Moderate H (Negative) Urine RBC 2 (0-5) /hpf Urine WBC 21 H (0-5) /hpf Ur Squamous Epith Cells 57 H (0-4) /hpf Urine Bacteria Few H (None) /hpf Urine Mucus Rare H (None) /hpf Urine HCG, Qual Not Detected (Not Detectd) Disposition Clinical Impression: Constipation Disposition: HOME SELF-CARE Condition: Stable Instructions (If sedation given, give patient instructions): Constipation (ED) Additional Instructions: Please return to the Emergency Department if symptoms worsen or any other concerns. Recommend taking MiraLAX daily for 2 weeks as well as one day of an [id number] laxative. Drink lots of water. Follow-up with your PCP. Is patient prescribed a controlled substance at d/c from ED?: No Referrals: [facility] [Primary Care Provider] - 1-2 days
[2020-07-17 15:05] LABS: Appearance,Urine Cloudy (Clear); Bacteria,Urine Few /hpf; Bilirubin,Urine Negative (Negative); Blood,Urine Negative (Negative); Color,Urine Yellow; Glucose,Urine (UA) Negative (Negative); Ketones,Urine Trace (Negative); Leukocyte Esterase,Urine Moderate (Negative); Mucus,Urine Rare /hpf; Nitrite,Urine Negative (Negative); Protein,Urine 1+ (Negative); RBC,Urine 2 /hpf (0-5); Specific Gravity,Urine 1.024 (1.001-1.035); Squamous Epithelial Cell,Urine 57 /hpf (0-4); WBC,Urine 21 /hpf (0-5)
[2020-07-17 15:11] VITALS: RESP 20
--- NOTE | 2020-07-17 15:11 | XR ---
EXAMINATION TYPE: XR KUB DATE OF EXAM: 07/17/2020 Comparison: 06/27/2018 Clinical History: 35-year-old female pain, constipation Findings: Marked scoliotic deformity. Median sternotomy wires. Heart mildly enlarged. Mild stool burden. Small air-fluid levels are present without any dilated bowel loops. Mild to moderate degenerative change ri ght hip. Intramedullary nail and screw fixation left hip. Impression: Small air-fluid levels in the abdomen could represent an ileus or enteritis. Overall bowel gas patter n is nonobstructive. No free air.
[2020-07-17 16:18] VITALS: BP 113/65; PULSE 71; TEMP 98.1
== END 2020-07-17 16:00 | disposition home or self-care (01) ==
LOC: EC 13:45
DX: K59.00 Constipation, unspecified (principal); I50.9 Heart failure, unspecified; G40.909 Epilepsy, unspecified, not intractable, without status epilepticus; F41.9 Anxiety disorder, unspecified; F17.200 Nicotine dependence, unspecified, uncomplicated; Z79.01 Long term (current) use of anticoagulants; Z79.82 Long term (current) use of aspirin; Z79.899 Other long term (current) drug therapy; Z88.0 Allergy status to penicillin; Z88.5 Allergy status to narcotic agent; Z88.8 Allergy status to other drugs, medicaments and biological substances; Z86.73 Personal history of transient ischemic attack (TIA), and cerebral infarction without residual deficits; Z95.1 Presence of aortocoronary bypass graft; Z95.4 Presence of other heart-valve replacement
CPT/HCPCS: 74018; 81001; 81025; 87086; 99284

== ENCOUNTER 2020-07-25 05:40 | Inpatient (IN) | payer OTHER ==
[2020-07-25 05:49] VITALS: RESP 18
[2020-07-25 06:07] VITALS: TEMP 97.8
[2020-07-25] MEDS ORDERED: MORPHINE SULFATE 4 MG/ML SYRINGE IVP STA (06:48)
[2020-07-25 06:58] LABS: Basophils # (A) 0.1 k/uL (0-0.2); Basophils % (A) 1 %; Eosinophils # (A) 0.8 k/uL (0-0.7); Eosinophils % (A) 6 %; HCT 42.8 % (34.0-46.0); Lymphocytes # (A) 3.5 k/uL (1.0-4.8); Lymphocytes % (A) 26 %; MCH 33.6 pg (25.0-35.0); MCHC 32.7 g/dL (31.0-37.0); MCV 102.6 fL (80.0-100.0); Macrocytosis Slight; Mean Platelet Volume 7.7; Monocytes # (A) 1.1 k/uL (0-1.0); Monocytes % (A) 8 %; Neutrophils # (A) 7.5 k/uL (1.3-7.7); Neutrophils % (A) 56 %; Platelet Count 259 k/uL (150-450); RBC 4.17 m/uL (3.80-5.40); RDW 13.2 % (11.5-15.5); WBC 13.3 k/uL (3.8-10.6)
--- NOTE | 2020-07-25 06:58 | ED ---
General Adult HPI - General Chief complaint: Back Pain/Injury Stated complaint: ABD pain Time Seen by Provider: 07/25/20 06:01 Source: patient, EMS, RN notes reviewed Mode of arrival: EMS Limitations: no limitations - History of Present Illness Initial comments: 35-year-old female presents emergency Department with chief complaint of abdominal chest issues. Patient is well-known to the emergency Department and has extensive history. Patient states his has been increasing over the last 1 week. She had a prior ER visit for similar complaints. Patient states she relates it to her constipation and her ongoing her issues. Patient has a known uric aneurysm with chronic dissection she states that she's been told that she has not a surgical candidate and there is nothing they can do to repair it. Patient states that her legs have been increasing swelling, her abdomen has been distended, swollen. She reports fevers or chills. She denies any sick contacts. Patient has not follow-up with her primary care physician recently. - Related Data Home Medications Medication Instructions Recorded Confirmed Cholecalciferol [Vitamin D3 (25 5,000 unit PO DAILY 05/18/18 07/02/20 Mcg = 1000 Iu)] DULoxetine HCL [Cymbalta] 60 mg PO DAILY 06/14/18 07/02/20 Ferrous Sulfate [Iron (65 MG 325 mg PO DAILY 06/14/18 07/02/20 Elemental)] OLANZapine [ZyPREXA] 15 mg PO HS 04/19/19 07/02/20 Aspirin EC [Ecotrin Low Dose] 81 mg PO DAILY 07/22/19 07/02/20 Promethazine 6.25MG/5Ml [Phenergan 6.25 mg PO Q8H PRN 07/22/19 07/02/20 Syrup] Metoprolol Tartrate [Lopressor] 25 mg PO BID 07/25/19 07/02/20 Warfarin [Coumadin] 5 mg PO Q48H 07/25/19 07/02/20 Albuterol Sulfate [Proair Hfa] 1 - 2 puff INHALATION RT-Q6H PRN 07/02/20 07/02/20 Furosemide [Lasix] 20 mg PO Q48H PRN 07/02/20 07/02/20 Gabapentin 600 mg PO TID 07/02/20 07/02/20 HYDROcodone/APAP 7.5-325MG [[place] 1 tab PO BID PRN 07/02/20 07/02/20 7.5-325] Ondansetron [Zofran] 4 mg PO DAILY PRN 07/02/20 07/02/20 Potassium Chloride 10 meq PO Q48H PRN 07/02/20 07/02/20 Warfarin Sodium 4 mg PO Q48H 07/02/20 07/02/20 Previous Rx's Medication Instructions Recorded carvediloL [Coreg] 6.25 mg PO BID #60 tab 07/23/19 Allergies Allergy/AdvReac Type Severity Reaction Status Date / Time chlordiazepoxide HCl Allergy SEE COMMENT Verified 07/25/20 05:53 [From Librium] Penicillins Allergy Rash/Hives Verified 07/25/20 05:53 ketorolac [From Toradol] AdvReac ANXIETY Verified 07/25/20 05:53 prochlorperazine edisylate AdvReac PANIC Verified 07/25/20 05:53 [From Compazine] ATTACK prochlorperazine maleate AdvReac PANIC Verified 07/25/20 05:53 [From Compazine] ATTACK Review of Systems ROS Statement: Those systems with pertinent positive or pertinent negative responses have been documented in the HPI. ROS Other: All systems not noted in ROS Statement are negative. Past Medical History Past Medical History: Heart Failure, CVA/TIA, Liver Disease, Neurologic Disorder, Osteoarthritis (OA), Pneumonia, Seizure Disorder Additional Past Medical History / Comment(s): Stroke with residual right-sided weakness 2017, TIAs, marfan's syndrome, ArnoldChiari malformation, spontaneous pneumothorax x 21, scoliosis and pectus excavatum secondary to Marfan's, chronic back pain, bilateral leg pain, gastric ulcers, sinus infections, STATED HAS POOR CIRCULATION, viral meningitis, HEP C. 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 spleenectomy 2018, L upper lobectomy d/t pneumothoraxs. Past Anesthesia/Blood Transfusion Reactions: No Reported Reaction Past Psychological History: Anxiety Smoking Status: Current every day smoker Past Alcohol Use History: None Reported Past Drug Use History: Marijuana - Past Family History Father Additional Family Medical History / Comment(s): Father is with history of AIDS. Mother Family Medical History: Diabetes Mellitus Additional Family Medical History / Comment(s): Mother at age 49 from liver cirrhosis secondary to alcohol abuse. Brother(s) Additional Family Medical History / Comment(s): Patient has one brother with no major medical problems. General Exam General appearance: alert, in no apparent distress Head exam: Present: atraumatic, normocephalic, normal inspection Eye exam: Present: normal appearance, PERRL, EOMI. Absent: scleral icterus, conjunctival injection, periorbital swelling ENT exam: Present: normal exam, normal oropharynx, mucous membranes moist Neck exam: Present: normal inspection, full ROM. Absent: tenderness, meningismus, lymphadenopathy Respiratory exam: Present: normal lung sounds bilaterally, chest wall tenderness. Absent: respiratory distress, wheezes, rales, rhonchi, stridor Cardiovascular Exam: Present: regular rate, normal rhythm, normal heart sounds. Absent: systolic murmur, diastolic murmur, rubs, gallop, clicks GI/Abdominal exam: Present: soft, distended, tenderness, normal bowel sounds. Absent: guarding, rebound, rigid Back exam: Present: tenderness (Large deformity noted). Absent: normal inspection, full ROM Neurological exam: Present: alert, oriented X3, reflexes normal. Absent: motor sensory deficit Skin exam: Present: warm, dry, intact, normal color. Absent: rash Course Vital Signs 07/25/20 05:43 Temperature 97.8 F Pulse Rate 97 Respiratory 18 Rate Blood Pressure 117/61 O2 Sat by Pulse 97 Oximetry Medical Decision Making - Medical Decision Making Chest x-ray shows evidence of possible pneumonia or fluid overload. Patient's BNP is elevated at 3000 and she has no prior BNP elevated to this extent. Patient does have ongoing chest pain with known cardiac disease. Patient will be admitted for further evaluation and treatment. - Lab Data Result diagrams: 07/25/20 06:35 07/25/20 06:35 Lab Results 07/25/20 07/25/20 07/25/20 Range/Units 06:35 06:35 06:35 WBC 13.3 H (3.8-10.6) k/uL RBC 4.17 (3.80-5.40) m/uL Hgb 14.0 (11.4-16.0) gm/dL Hct 42.8 (34.0-46.0) % MCV 102.6 H (80.0-100.0) fL MCH 33.6 (25.0-35.0) pg MCHC 32.7 (31.0-37.0) g/dL RDW 13.2 (11.5-15.5) % Plt Count 259 (150-450) k/uL MPV 7.7 Neutrophils % 56 % Lymphocytes % 26 % Monocytes % 8 % Eosinophils % 6 % Basophils % 1 % Neutrophils # 7.5 (1.3-7.7) k/uL Lymphocytes # 3.5 (1.0-4.8) k/uL Monocytes # 1.1 H (0-1.0) k/uL Eosinophils # 0.8 H (0-0.7) k/uL Basophils # 0.1 (0-0.2) k/uL Macrocytosis Slight PT 19.5 H (9.0-12.0) sec INR 2.0 H (<1.2) APTT 39.0 H (22.0-30.0) sec Sodium 139 (137-145) mmol/L Potassium 4.1 (3.5-5.1) mmol/L Chloride 104 (98-107) mmol/L Carbon Dioxide 28 (22-30) mmol/L Anion Gap 7 mmol/L BUN 7 (7-17) mg/dL Creatinine 0.47 L (0.52-1.04) mg/dL Est GFR (CKD-EPI)AfAm >90 (>60 ml/min/1.73 sqM) Est GFR (CKD-EPI)NonAf >90 (>60 ml/min/1.73 sqM) Glucose 93 (74-99) mg/dL Calcium 8.8 (8.4-10.2) mg/dL Magnesium 1.7 (1.6-2.3) mg/dL Total Bilirubin 0.6 (0.2-1.3) mg/dL AST 36 (14-36) U/L ALT 18 (4-34) U/L Alkaline Phosphatase 75 (38-126) U/L Troponin I (0.000-0.034) ng/mL NT-Pro-B Natriuret Pep pg/mL Total Protein 7.4 (6.3-8.2) g/dL Albumin 4.1 (3.5-5.0) g/dL Lipase 171 (23-300) U/L 07/25/20 07/25/20 Range/Units 06:35 06:35 WBC (3.8-10.6) k/uL RBC (3.80-5.40) m/uL Hgb (11.4-16.0) gm/dL Hct (34.0-46.0) % MCV (80.0-100.0) fL MCH (25.0-35.0) pg MCHC (31.0-37.0) g/dL RDW (11.5-15.5) % Plt Count (150-450) k/uL MPV Neutrophils % % Lymphocytes % % Monocytes % % Eosinophils % % Basophils % % Neutrophils # (1.3-7.7) k/uL Lymphocytes # (1.0-4.8) k/uL Monocytes # (0-1.0) k/uL Eosinophils # (0-0.7) k/uL Basophils # (0-0.2) k/uL Macrocytosis PT (9.0-12.0) sec INR (<1.2) APTT (22.0-30.0) sec Sodium (137-145) mmol/L Potassium (3.5-5.1) mmol/L Chloride (98-107) mmol/L Carbon Dioxide (22-30) mmol/L Anion Gap mmol/L BUN (7-17) mg/dL Creatinine (0.52-1.04) mg/dL Est GFR (CKD-EPI)AfAm (>60 ml/min/1.73 sqM) Est GFR (CKD-EPI)NonAf (>60 ml/min/1.73 sqM) Glucose (74-99) mg/dL Calcium (8.4-10.2) mg/dL Magnesium (1.6-2.3) mg/dL Total Bilirubin (0.2-1.3) mg/dL AST (14-36) U/L ALT (4-34) U/L Alkaline Phosphatase (38-126) U/L Troponin I <0.012 (0.000-0.034) ng/mL NT-Pro-B Natriuret Pep 3050 pg/mL Total Protein (6.3-8.2) g/dL Albumin (3.5-5.0) g/dL Lipase (23-300) U/L Disposition Clinical Impression: Chest pain, Pneumonia, CHF (congestive heart failure) Disposition: ADMITTED IP TO THIS HOSP Condition: Fair Referrals: None,Stated [Primary Care Provider] - 1-2 days
[2020-07-25 07:08] LABS: ALT 18 U/L (4-34); AST 36 U/L (14-36); African American GFR (CKD) >90 (>60 ml/min/1.73 sqM); Albumin 4.1 g/dL (3.5-5.0); Alkaline Phosphatase 75 U/L (38-126); Anion Gap 7 mmol/L; Blood Urea Nitrogen 7 mg/dL (7-17); Calcium 8.8 mg/dL (8.4-10.2); Carbon Dioxide 28 mmol/L (22-30); Chloride 104 mmol/L (98-107); Glucose 93 mg/dL (74-99); Lipase 171 U/L (23-300); Magnesium 1.7 mg/dL (1.6-2.3); Non-African American GFR(CKD) >90 (>60 ml/min/1.73 sqM); Potassium 4.1 mmol/L (3.5-5.1); Sodium 139 mmol/L (137-145); Total Bilirubin 0.6 mg/dL (0.2-1.3); Total Protein 7.4 g/dL (6.3-8.2)
[2020-07-25 07:12] LABS: Prothrombin Time 19.5 sec (9.0-12.0)
--- NOTE | 2020-07-25 07:17 | XR ---
EXAMINATION TYPE: XR chest 2V DATE OF EXAM: 07/25/2020 COMPARISON: 07/02/2020 HISTORY: Chest pain TECHNIQUE: Frontal and lateral views of the chest are obtained. FINDINGS: There are patchy perihilar and basilar infiltrates seen. Correlate for pneumonia. No evidence for pneumothorax. No pleural effusion. The cardiac silhouette size is within normal limits. The osseous structures are grossly intact. IMPRESSION: 1. There are patchy perihilar and basilar infiltrates seen. Correlate for pneumonia.
--- NOTE | 2020-07-25 07:17 | XR ---
EXAMINATION TYPE: XR KUB DATE OF EXAM: 07/25/2020 COMPARISON: 07/17/2020 HISTORY: Pain TECHNIQUE: Single supine KUB image of the abdomen is obtained FINDINGS: Small bowel demonstrates no evidence for dilatation or air fluid levels. Gas and fecal material is seen in non-distended colon. No convincing evidence for pneumoperitoneum. No unusual calcifications. The lung bases are clear. The osseous structures are intact. Operative changes left hip. IMPRESSION: 1. Overall nonobstructive bowel gas pattern. There Is moderate fecal stasis noted.
[2020-07-25] MEDS ORDERED: cefTRIAXone IN SWFI 1,000 MG/10 ML SYRINGE IVP STA (07:59)
[2020-07-25] MEDS ORDERED: NITROGLYCERIN SL TABS 0.4 MG TAB SUBLINGUAL PRN (08:01)
[2020-07-25] MEDS ORDERED: HYDROcodone/APAP 7.5-325MG 1 EACH TAB PO PRN (08:02)
[2020-07-25] MEDS ORDERED: DULoxetine HCL 60 MG CAPSULE.DR PO SCH (09:00)
[2020-07-25] MEDS ORDERED: carvediloL 6.25 MG TAB PO SCH ×2 (09:00→17:30)
[2020-07-25 09:27] VITALS: BP 116/79
[2020-07-25 11:25] VITALS: PULSE 91
--- NOTE | 2020-07-25 12:00 | P.CRDCN ---
History of Present Illness History of present illness: HISTORY OF PRESENTING ILLNESS This is a pleasant 35-year-old female past medical history significant for Marfan syndrome, mechanical aortic valve replacement maintained on Coumadin, chronic systolic and diastolic heart failure, hepatitis C, chronic aortic dissection status post repair at the age of 10 and history of former IV drug abuse. She follows in the office with Dr. Velasquez. We have been asked to see in consultation for chest pain. She states she has been having symptoms of chest discomfort for the previous 3 days in the midsternal region that is constant. The pain is exacerbated by movement of her torso, deep palpation or deep inspiration. She has some associated shortness of breath. She denies nausea, vomiting, palpitations or diaphoresis. When walking in the room the patient is seen snoring and sleeping comfortably. When she is woken up she continues to co mplain of chest discomfort and is requesting Dilaudid. Most DIAGNOSTICS EKG reveals sinus tachycardia heart rate of 104, T-wave inversions in the anterior leads, consistent with previous EKG. Chest xray patchy perihilar and basilar infiltrates seen. Laboratory reviewed, WBC 13.3, hemoglobin 14, platelets 259, INR 2.0, sodium 139, potassium 4.1, creatinine 0.47, magnesium 1.7,cardiac enzymes negative 2, and T proBNP 3050 and Covid negative. Current cardiac medications include warfarin, coreg 6.25 mg BID, aspirin 81 mg daily, lasix 20 mg every other day as needed, lopressor 25 mg BID and daily potassium supplementation when she takes lasix. REVIEW OF SYSTEMS At the time of my exam: CONSTITUTIONAL: Denies fever or chills. CARDIOVASCULAR: Complains of chest pain and shortness of breath. Denies orthopnea, PND or palpitations. RESPIRATORY: Denies cough. GASTROINTESTINAL: Denies abdominal pain, diarrhea, constipation, nausea or vomiting. MUSCULOSKELETAL: Denies myalgias. NEUROLOGIC: Denies numbness, tingling or weakness. ENDOCRINE: Denies fatigue, weight change, polydipsia or polyurina. GENITOURINARY: Denies burning, hematuria or urgency with micturation. HEMATOLOGIC: Denies history of anemia or bleeding. PHYSICAL EXAMINATION Blood pressure 116/79 heart rate 91 afebrile and maintaining oxygen saturation on room air. CONSTITUTIONAL: No apparent distress. HEENT: Head is normocephalic. Pupils are equal, round. Sclerae anicteric. Mucous membranes of the mouth are moist. No JVD. No carotid bruit. CHEST EXAMINATION: Lungs are clear to auscultation. No chest wall tenderness is noted on palpation or with deep breathing. HEART EXAMINATION: Regular rate and rhythm. S1, S2 heard. Mechanical click auscultated, no murmurs, gallops or rub. ABDOMEN: Soft, nontender. Positive bowel sounds. EXTREMITIES: 2+ peripheral pulses, no lower extremity edema and no calf tenderness. NEUROLOGIC EXAMINATION: Patient is awake, alert and oriented x3. ASSESSMENT Chest pain, atypical for angina. An acute event has been ruled out. Pneumonia Leuckocytosis Pneumonia Chronic systolic and diastolic heart failure, clinically euvolemic Marfan's syndrome Valvular heart disease s/p mechanical aortic valve repair Hepatitis C History of IV drug abuse PLAN An acute coronary event has been ruled out. He has atypical for angina and pleuritic in nature likely related to underlying pneumonia. Echocardiogram has been obtained and will be reviewed. No further cardiac workup at this time. Continue Coumadin, Coreg and Lopressor as previously ordered. Ongoing medical management, patient may be discharged from a cardiac perspective. Thank you kindly for this consultation. Nurse Practitioner note has been reviewed, I agree with a documented findings and plan of care. Patient was seen and examined. Past Medical History Past Medical History: Heart Failure, CVA/TIA, Liver Disease, Neurologic Disorder, Osteoarthritis (OA), Pneumonia, Seizure Disorder Additional Past Medical History / Comment(s): Stroke with residual right-sided weakness 2017, TIAs, marfan's syndrome, ArnoldChiari malformation, spontaneous pneumothorax x 21, scoliosis and pectus excavatum secondary to Marfan's, chronic back pain, bilateral leg pain, gastric ulcers, sinus infections, STATED HAS POOR CIRCULATION, viral meningitis, HEP C. 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 spleenectomy 2018, L upper lobectomy d/t pneumothoraxs. Past Anesthesia/Blood Transfusion Reactions: No Reported Reaction Past Psychological History: Anxiety Smoking Status: Current every day smoker Past Alcohol Use History: None Reported Past Drug Use History: Marijuana - Past Family History Father Additional Family Medical History / Comment(s): Father is with history of AIDS. Mother Family Medical History: Diabetes Mellitus Additional Family Medical History / Comment(s): Mother at age 49 from liver cirrhosis secondary to alcohol abuse. Brother(s) Additional Family Medical History / Comment(s): Patient has one brother with no major medical problems. Medications and Allergies Home Medications Medication Instructions Recorded Confirmed Type Cholecalciferol [Vitamin D3 (25 5,000 unit PO DAILY 05/18/18 07/25/20 History Mcg = 1000 Iu)] DULoxetine HCL [Cymbalta] 60 mg PO DAILY 06/14/18 07/25/20 History Ferrous Sulfate [Iron (65 MG 325 mg PO DAILY 06/14/18 07/25/20 History Elemental)] OLANZapine [ZyPREXA] 15 mg PO HS 04/19/19 07/25/20 History Aspirin EC [Ecotrin Low Dose] 81 mg PO DAILY 07/22/19 07/25/20 History Promethazine 6.25MG/5Ml [Phenergan 6.25 mg PO Q8H PRN 07/22/19 07/25/20 History Syrup] Metoprolol Tartrate [Lopressor] 25 mg PO BID 07/25/19 07/25/20 History Warfarin [Coumadin] 5 mg PO Q48H 07/25/19 07/25/20 History Albuterol Sulfate [Proair Hfa] 1 - 2 puff INHALATION RT-Q6H PRN 07/02/20 07/25/20 History Furosemide [Lasix] 20 mg PO Q48H PRN 07/02/20 07/25/20 History Gabapentin 600 mg PO TID 07/02/20 07/25/20 History HYDROcodone/APAP 7.5-325MG [[place] 1 tab PO BID PRN 07/02/20 07/25/20 History 7.5-325] Ondansetron [Zofran] 4 mg PO DAILY PRN 07/02/20 07/25/20 History Potassium Chloride 10 meq PO Q48H PRN 07/02/20 07/25/20 History Warfarin Sodium 4 mg PO Q48H 07/02/20 07/25/20 History carvediloL [Coreg] 6.25 mg PO BID 07/25/20 History Allergies Allergy/AdvReac Type Severity Reaction Status Date / Time chlordiazepoxide HCl Allergy SEE COMMENT Verified 07/25/20 10:15 [From Librium] Penicillins Allergy Rash/Hives Verified 07/25/20 10:15 ketorolac [From Toradol] AdvReac ANXIETY Verified 07/25/20 10:15 prochlorperazine edisylate AdvReac PANIC Verified 07/25/20 10:15 [From Compazine] ATTACK prochlorperazine maleate AdvReac PANIC Verified 07/25/20 10:15 [From Compazine] ATTACK Physical Exam Vitals: Vital Signs Temp Pulse Resp BP Pulse Ox 07/25/20 11:25 97.8 F 91 18 116/79 95 07/25/20 11:00 91 18 116/79 95 07/25/20 10:00 89 18 95 07/25/20 09:25 89 18 116/79 95 07/25/20 09:00 92 18 115/59 95 07/25/20 08:00 92 18 115/59 95 07/25/20 05:43 97.8 F 97 18 117/61 97 Intake and Output 07/24/20 07/25/20 07/25/20 22:59 06:59 14:59 Other: Weight 81.647 kg Results 07/25/20 06:35 07/25/20 06:35 Cardiac Enzymes 07/25/20 07/25/20 07/25/20 Range/Units 06:35 06:35 10:16 AST 36 (14-36) U/L Troponin I <0.012 <0.012 (0.000-0.034) ng/mL Coagulation 07/25/20 Range/Units 06:35 PT 19.5 H (9.0-12.0) sec APTT 39.0 H (22.0-30.0) sec CBC 07/25/20 Range/Units 06:35 WBC 13.3 H (3.8-10.6) k/uL RBC 4.17 (3.80-5.40) m/uL Hgb 14.0 (11.4-16.0) gm/dL Hct 42.8 (34.0-46.0) % Plt Count 259 (150-450) k/uL Comprehensive Metabolic Panel 07/25/20 Range/Units 06:35 Sodium 139 (137-145) mmol/L Potassium 4.1 (3.5-5.1) mmol/L Chloride 104 (98-107) mmol/L Carbon Dioxide 28 (22-30) mmol/L BUN 7 (7-17) mg/dL Creatinine 0.47 L (0.52-1.04) mg/dL Glucose 93 (74-99) mg/dL Calcium 8.8 (8.4-10.2) mg/dL AST 36 (14-36) U/L ALT 18 (4-34) U/L Alkaline Phosphatase 75 (38-126) U/L Total Protein 7.4 (6.3-8.2) g/dL Albumin 4.1 (3.5-5.0) g/dL Current Medications Generic Name Dose Route Start Last Admin Trade Name Freq PRN Reason Stop Dose Admin Hydrocodone Bitart/Acetaminophen 1 each 07/25/20 08:02 07/25/20 09:57 Hydrocodone/Apap 7.5-325mg 1 Each Tab PO 1 each BID PRN Administration Pain Aspirin 81 mg 07/26/20 09:00 Aspirin 81 Mg PO DAILY [facility] Carvedilol 6.25 mg 07/25/20 09:00 07/25/20 09:28 Carvedilol 6.25 Mg Tab PO 6.25 mg BID-W/MEALS [facility] Administration Duloxetine HCl 60 mg 07/25/20 09:00 07/25/20 09:28 Duloxetine Hcl 60 Mg Capsule. PO 60 mg DAILY [facility] Administration Miscellaneous Information 0 each 07/25/20 10:37 Warfarin Per Pharmacy MISCELLANE DIRECTED PRN per protocol Nitroglycerin 0.4 mg 07/25/20 08:01 Nitroglycerin Sl Tabs 0.4 Mg Tab SUBLINGUAL Q5M PRN Chest Pain Olanzapine 15 mg 07/25/20 21:00 Olanzapine 7.5 Mg Tab PO HS [facility] Warfarin Sodium 4 mg 07/26/20 18:00 Warfarin 2 Mg Tab PO Q48H [facility] Warfarin Sodium 5 mg 07/25/20 18:00 Warfarin 5 Mg Tab PO Q48H [facility] Protocol Intake and Output 07/24/20 07/25/2020 22:59 06:59 14:59 Other: Weight 81.647 kg 07/25/20 06:35 07/25/20 06:35
[2020-07-25] MEDS ORDERED: LACTULOSE 20 GM/30 ML CUP PO PRN (12:04)
[2020-07-25] MEDS ORDERED: ALBUTEROL NEBULIZED 2.5 MG/3 ML INHALATION PRN (12:05)
[2020-07-25] MEDS ORDERED: FUROSEMIDE 20 MG TAB PO PRN (12:05)
--- NOTE | 2020-07-25 12:44 | P.HPIM ---
History of Present Illness Patient is a 35-year-old the female with Marfan syndrome with multiple aspirations in the past for chest pain patient has mechanical aortic valve on Coumadin and diastolic heart failure on Lasix history of hepatitis C drug abuse in the past came in with complaints of chest pain pleuritic in nature chest x- ray showed some atelectasis in the hilar area patient does have cough appears to be smoker's cough. Although my suspicion is low for pneumonia considering her severity of chest pain which is pleuritic or want to rule out PE and the pneumonia because of which chest CT was ordered, patient was insisting on Dilaudid patient is a constipated at this time. Ordered lactulose. Patient's INR is therapeutic on Coumadin. Review of Systems REVIEW OF SYSTEMS: CONSTITUTIONAL: No fever, no malaise, no fatigue. HEENT: No recent visual problems or hearing problems. Denied any sore throat. CARDIOVASCULAR: No orthopnea, PND, no palpitations, no syncope. PULMONARY: no hemoptysis. GASTROINTESTINAL: No diarrhea, no nausea, no vomiting, no abdominal pain. NEUROLOGICAL: No headaches, no weakness, no numbness. HEMATOLOGICAL: Denies any bleeding or petechiae. GENITOURINARY: Denies any burning micturition, frequency, or urgency. MUSCULOSKELETAL/RHEUMATOLOGICAL: Denies any joint pain, swelling, or any muscle pain. ENDOCRINE: Denies any polyuria or polydipsia. The rest of the 14-point review of systems is negative. Past Medical History Past Medical History: Heart Failure, CVA/TIA, Liver Disease, Neurologic Disorder, Osteoarthritis (OA), Pneumonia, Seizure Disorder Additional Past Medical History / Comment(s): Stroke with residual right-sided weakness 2017, TIAs, marfan's syndrome, ArnoldChiari malformation, spontaneous pneumothorax x 21, scoliosis and pectus excavatum secondary to Marfan's, chronic back pain, bilateral leg pain, gastric ulcers, sinus infections, STATED HAS POOR CIRCULATION, viral meningitis, HEP C. 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 spleenectomy 2018, L upper lobectomy d/t pneumothoraxs. Past Anesthesia/Blood Transfusion Reactions: No Reported Reaction Past Psychological History: Anxiety Smoking Status: Current every day smoker Past Alcohol Use History: None Reported Past Drug Use History: Marijuana - Past Family History Father Additional Family Medical History / Comment(s): Father is with history of AIDS. Mother Family Medical History: Diabetes Mellitus Additional Family Medical History / Comment(s): Mother at age 49 from liver cirrhosis secondary to alcohol abuse. Brother(s) Additional Family Medical History / Comment(s): Patient has one brother with no major medical problems. Medications and Allergies Home Medications Medication Instructions Recorded Confirmed Type Cholecalciferol [Vitamin D3 (25 5,000 unit PO DAILY 05/18/18 07/25/20 History Mcg = 1000 Iu)] DULoxetine HCL [Cymbalta] 60 mg PO DAILY 06/14/18 07/25/20 History Ferrous Sulfate [Iron (65 MG 325 mg PO DAILY 06/14/18 07/25/20 History Elemental)] OLANZapine [ZyPREXA] 15 mg PO HS 04/19/19 07/25/20 History Aspirin EC [Ecotrin Low Dose] 81 mg PO DAILY 07/22/19 07/25/20 History Promethazine 6.25MG/5Ml [Phenergan 6.25 mg PO Q8H PRN 07/22/19 07/25/20 History Syrup] Warfarin [Coumadin] 5 mg PO Q48H 07/25/19 07/25/20 History Albuterol Sulfate [Proair Hfa] 1 - 2 puff INHALATION RT-Q6H PRN 07/02/20 07/25/20 History Furosemide [Lasix] 20 mg PO Q48H PRN 07/02/20 07/25/20 History Gabapentin 600 mg PO TID 07/02/20 07/25/20 History HYDROcodone/APAP 7.5-325MG [[place]ry [place] 1 tab PO BID PRN 07/02/20 07/25/20 History 7.5-325] Ondansetron [Zofran] 4 mg PO DAILY PRN 07/02/20 07/25/20 History Potassium Chloride 10 meq PO Q48H PRN 07/02/20 07/25/20 History Warfarin Sodium 4 mg PO Q48H 07/02/20 07/25/20 History carvediloL [Coreg] 6.25 mg PO BID 07/25/20 History Allergies Allergy/AdvReac Type Severity Reaction Status Date / Time chlordiazepoxide HCl Allergy SEE COMMENT Verified 07/25/20 10:15 [From Librium] Penicillins Allergy Rash/Hives Verified 07/25/20 10:15 ketorolac [From Toradol] AdvReac ANXIETY Verified 07/25/20 10:15 prochlorperazine edisylate AdvReac PANIC Verified 07/25/20 10:15 [From Compazine] ATTACK prochlorperazine maleate AdvReac PANIC Verified 07/25/20 10:15 [From Compazine] ATTACK Physical Exam Vitals: Vital Signs Temp Pulse Resp BP Pulse Ox 07/25/20 11:25 97.8 F 91 18 116/79 95 07/25/20 11:00 91 18 116/79 95 07/25/20 10:00 89 18 95 07/25/20 09:25 89 18 116/79 95 07/25/20 09:00 92 18 115/59 95 07/25/20 08:00 92 18 115/59 95 07/25/20 05:43 97.8 F 97 18 117/61 97 Intake and Output 07/24/20 07/25/20 07/25/20 22:59 06:59 14:59 Other: Weight 81.647 kg PHYSICAL EXAMINATION: GENERAL: The patient is alert and oriented x3, not in any acute distress. Well developed, well nourished. HEENT: Pupils are round and equally reacting to light. EOMI. No scleral icterus. No conjunctival pallor. Normocephalic, atraumatic. No pharyngeal erythema. No thyromegaly. CARDIOVASCULAR: S1 and S2 present. No murmurs, rubs, or gallops. PULMONARY: Mild bilateral rhonchi no significant wheezing ABDOMEN: Soft, nontender, nondistended, normoactive bowel sounds. No palpable organomegaly. MUSCULOSKELETAL: No joint swelling or deformity. EXTREMITIES: No cyanosis, clubbing, or pedal edema. NEUROLOGICAL: Gross neurological examination did not reveal any focal deficits. SKIN: No rashes. Results CBC & Chem 7: 07/25/20 06:35 07/25/20 06:35 Labs: Abnormal Lab Results - Last 24 Hours (Table) 07/25/20 07/25/20 07/25/20 Range/Units 06:35 06:35 06:35 WBC 13.3 H (3.8-10.6) k/uL MCV 102.6 H (80.0-100.0) fL Monocytes # 1.1 H (0-1.0) k/uL Eosinophils # 0.8 H (0-0.7) k/uL PT 19.5 H (9.0-12.0) sec INR 2.0 H (<1.2) APTT 39.0 H (22.0-30.0) sec Creatinine 0.47 L (0.52-1.04) mg/dL Assessment and Plan Plan: 1 chest pain: Rule out acute coronary syndromes patient was cleared by cardiology -Pleuritic chest pain we will rule out PE or pneumonia. -Leukocytosis mostly reactive clinical suspicion for pneumonia is low -Chronic systolic and diastolic dysfunction patient is presently euvolemic at this time -Marfan syndrome with valvular replacement in the past patient has a mechanical aortic valve -History of IV drug use -History of hepatitis C -Constipation ordered lactulose
--- NOTE | 2020-07-25 12:57 | ECHOF ---
Referral Reason:chest pain, chf MEASUREMENTS -------- HEIGHT: 175.3 cm WEIGHT: 81.7 kg BP: RVIDd: 5.0 cm (< 3.3) IVSd: 1.2 cm (0.6 - 1.1) LVIDd: 3.9 cm (3.9 - 5.3) LVPWd: 1.4 cm (0.6 - 1.1) IVSs: 1.9 cm LVIDs: 2.0 cm LVPWs: 1.7 cm LA Diam: 5.3 cm (2.7 - 3.8) MV EXCURSION: 15.965 mm (> 18.000) MV EF SLOPE: 43 mm/s (70 - 150) EPSS: 0.8 cm MV E Edward: 1.30 m/s MV DecT: 163 ms MV A Edward: 1.04 m/s MV E/A Ratio: 1.24 AV maxP.74 mmHg AV meanP.57 mmHg RAP: 10.00 mmHg RVSP: 49.49 mmHg FINDINGS -------- Undetermined rhythm. This was a technically adequate study. The left ventricular size is normal. There is mild concentric left ventricular hypertrophy. Overa ll left ventricular systolic function is low-normal with, an EF between 50 - 55 %. The right ventricle is severely enlarged. The left atrium is markedly dilated. LA is severely dilated >40 ml/m2 The right atrium is moderately enlarged. The aortic valve was not well visualized. Peak/mean gradient across the Aortic Valve is 19.74mmHg / 12.57mmHg. Normally functioning mechanical prosthetic valve. The mitral valve leaflets are mildly thickened. Mild mitral annular calcification present. Severe mitral regurgitation is present. Mild tricuspid regurgitation present. There is moderate pulmonary hypertension. Trace/mild (physiologic) pulmonic regurgitation. The aortic root size is normal. There is no pericardial effusion. CONCLUSIONS -------- 1. The left ventricular size is normal. 2. There is mild concentric left ventricular hypertrophy. 3. Overall left ventricular systolic function is low-normal with, an EF between 50 - 55 %. 4. The right ventricle is severely enlarged. 5. The left atrium is markedly dilated. 6. LA is severely dilated >40 ml/m2 7. The right atrium is moderately enlarged. 8. The aortic valve was not well visualized. 9. Peak/mean gradient across the Aortic Valve is 19.74mmHg / 12.57mmHg. 10. Normally functioning mechanical prosthetic valve. 11. The mitral valve leaflets are mildly thickened. 12. Mild mitral annular calcification present. 13. Severe mitral regurgitation is present. 14. Mild tricuspid regurgitation present. 15. There is moderate pulmonary hypertension. 16. Trace/mild (physiologic) pulmonic regurgitation. 17. The aortic root size is normal. 18. There is no pericardial effusion. QUALITY ASSURANCE INTERN: Cierra Cherry RDCS
[2020-07-25] MEDS ORDERED: GABAPENTIN 300 MG CAP PO SCH (16:00)
--- NOTE | 2020-07-25 16:47 | P.DS ---
Providers Date of admission: 07/25/20 08:01 Attending physician: Glenn Payan Consults: 07/25/20 08:01 Consult Physician Urgent Consulting Provider: Jenny Morris Consult Reason/Comments: chest pain, chf Do you want consulting provider notified?: Yes Primary care physician: Stated None Hospital Course: Patient left AMA Patient Condition at Discharge: Fair Plan - Discharge Summary New Discharge Prescriptions: Discontinued Metoprolol Tartrate [Lopressor] 25 mg PO BID No Action Cholecalciferol [Vitamin D3 (25 Mcg = 1000 Iu)] 5,000 unit PO DAILY Ferrous Sulfate [Iron (65 MG Elemental)] 325 mg PO DAILY DULoxetine HCL [Cymbalta] 60 mg PO DAILY OLANZapine [ZyPREXA] 15 mg PO HS Aspirin EC [Ecotrin Low Dose] 81 mg PO DAILY Promethazine 6.25MG/5Ml [Phenergan Syrup] 6.25 mg PO Q8H PRN PRN Reason: Cough Warfarin [Coumadin] 5 mg PO Q48H Albuterol Sulfate [Proair Hfa] 1 - 2 puff INHALATION RT-Q6H PRN PRN Reason: Shortness Of Breath Furosemide [Lasix] 20 mg PO Q48H PRN PRN Reason: Edema Gabapentin 600 mg PO TID HYDROcodone/APAP 7.5-325MG [Wilson 7.5-325] 1 tab PO BID PRN PRN Reason: Pain Ondansetron [Zofran] 4 mg PO DAILY PRN PRN Reason: Nausea Potassium Chloride 10 meq PO Q48H PRN PRN Reason: Edema Warfarin Sodium 4 mg PO Q48H carvediloL [Coreg] 6.25 mg PO BID Discharge Medication List Cholecalciferol [Vitamin D3 (25 Mcg = 1000 Iu)] 5,000 unit PO DAILY 05/18/18 [History] DULoxetine HCL [Cymbalta] 60 mg PO DAILY 06/14/18 [History] Ferrous Sulfate [Iron (65 MG Elemental)] 325 mg PO DAILY 06/14/18 [History] OLANZapine [ZyPREXA] 15 mg PO HS 04/19/19 [History] Aspirin EC [Ecotrin Low Dose] 81 mg PO DAILY 07/22/19 [History] Promethazine 6.25MG/5Ml [Phenergan Syrup] 6.25 mg PO Q8H PRN 07/22/19 [History] Warfarin [Coumadin] 5 mg PO Q48H 07/25/19 [History] Albuterol Sulfate [Proair Hfa] 1 - 2 puff INHALATION RT-Q6H PRN 07/02/20 [History] Furosemide [Lasix] 20 mg PO Q48H PRN 07/02/20 [History] Gabapentin 600 mg PO TID 07/02/20 [History] HYDROcodone/APAP 7.5-325MG [Wilson 7.5-325] 1 tab PO BID PRN 07/02/20 [History] Ondansetron [Zofran] 4 mg PO DAILY PRN 07/02/20 [History] Potassium Chloride 10 meq PO Q48H PRN 07/02/20 [History] Warfarin Sodium 4 mg PO Q48H 07/02/20 [History] carvediloL [Coreg] 6.25 mg PO BID 07/25/20 [History] Follow up Appointment(s)/Referral(s): None,Stated [Primary Care Provider] - 1-2 days Discharge Disposition: Left Against Medical Advice
[2020-07-25] MEDS ORDERED: WARFARIN 5 MG TAB PO SCH (18:00)
[2020-07-25] MEDS ORDERED: OLANZapine 7.5 MG TAB PO SCH (21:00)
[2020-07-26] MEDS ORDERED: ASPIRIN 325 MG TAB PO SCH (09:00)
[2020-07-26] MEDS ORDERED: ASPIRIN 81 MG PO SCH ×2 (09:00)
[2020-07-26] MEDS ORDERED: WARFARIN 2 MG TAB PO SCH (18:00)
== END 2020-07-25 12:55 | disposition left against medical advice (07) | DRG 313 ==
LOC: EC 05:40 → 1SOBS 08:01 → OBSVTOIN 08:01 → 1SOBS 11:07
PROVIDERS: ADMIT Internal Medicine; ATTEND Internal Medicine
DX: R07.89 Other chest pain (principal); Q87.40 Marfan syndrome, unspecified; I50.42 Chronic combined systolic (congestive) and diastolic (congestive) heart failure; F17.200 Nicotine dependence, unspecified, uncomplicated; F41.9 Anxiety disorder, unspecified; M19.90 Unspecified osteoarthritis, unspecified site; B18.2 Chronic viral hepatitis C; K59.00 Constipation, unspecified; Z20.828 Contact with and (suspected) exposure to other viral communicable diseases; M41.9 Scoliosis, unspecified; G40.909 Epilepsy, unspecified, not intractable, without status epilepticus; Z79.82 Long term (current) use of aspirin; Z79.899 Other long term (current) drug therapy; Z79.01 Long term (current) use of anticoagulants; Z95.2 Presence of prosthetic heart valve; Z95.1 Presence of aortocoronary bypass graft; Z87.11 Personal history of peptic ulcer disease; Z83.3 Family history of diabetes mellitus; Z83.0 Family history of human immunodeficiency virus [HIV] disease; Z88.6 Allergy status to analgesic agent; Z88.0 Allergy status to penicillin; Z88.8 Allergy status to other drugs, medicaments and biological substances; Z86.14 Personal history of Methicillin resistant Staphylococcus aureus infection; Z98.890 Other specified postprocedural states; Z87.01 Personal history of pneumonia (recurrent); Z83.79 Family history of other diseases of the digestive system; Q07.00 Arnold-Chiari syndrome without spina bifida or hydrocephalus; Z86.73 Personal history of transient ischemic attack (TIA), and cerebral infarction without residual deficits
CPT/HCPCS: 36415; 71046; 74018; 80053; 83690; 83735; 83880; 84484; 85025; 85610; 85730; 87040; 87635; 93005; 93306

== ENCOUNTER 2020-07-31 11:44 | Emergency (ER) | payer OTHER ==
[2020-07-31] MEDS ORDERED: HYDROmorphone 1 MG/ML 1 ML SYRINGE IVP STA (11:50)
[2020-07-31] MEDS ORDERED: ORPHENADRINE 30 MG/ML 2 ML VIAL IVP STA (11:51)
--- NOTE | 2020-07-31 11:57 | ED ---
Chest Pain HPI - General Chief Complaint: Chest Pain Stated Complaint: Chest Pain Time Seen by Provider: 07/31/20 11:44 Source: patient, EMS, RN notes reviewed, old records reviewed Mode of arrival: EMS Limitations: no limitations - History of Present Illness Initial Comments: This is a 35-year-old female with a history of Marfan's syndrome history of CHF chest pain recent admission and discharged on the of this month for the same a Heart valve replacement and depression who presents today with sudden onset of sharp left-sided chest pain 06/13 severity she woke up with it. She states it was somewhat of her chronic pain but severe today. She has any fevers chills nausea vomiting sweats no shortness of breath. MD Complaint: chest pain - Related Data Home Medications Medication Instructions Recorded Confirmed Cholecalciferol [Vitamin D3 (25 5,000 unit PO DAILY 05/18/18 07/31/20 Mcg = 1000 Iu)] DULoxetine HCL [Cymbalta] 60 mg PO DAILY 06/14/18 07/31/20 Ferrous Sulfate [Iron (65 MG 325 mg PO DAILY 06/14/18 07/31/20 Elemental)] OLANZapine [ZyPREXA] 15 mg PO HS 04/19/19 07/31/20 Aspirin EC [Ecotrin Low Dose] 81 mg PO DAILY 07/22/19 07/31/20 Promethazine 6.25MG/5Ml [Phenergan 6.25 mg PO Q8H PRN 07/22/19 07/31/20 Syrup] Warfarin [Coumadin] 5 mg PO Q48H 07/25/19 07/31/20 Albuterol Sulfate [Proair Hfa] 1 - 2 puff INHALATION RT-Q6H PRN 07/02/20 07/31/20 Furosemide [Lasix] 20 mg PO Q48H PRN 07/02/20 07/31/20 Gabapentin 600 mg PO TID 07/02/20 07/31/20 HYDROcodone/APAP 7.5-325MG [Anthony 1 tab PO BID PRN 07/02/20 07/31/20 7.5-325] Ondansetron [Zofran] 4 mg PO DAILY PRN 07/02/20 07/31/20 Potassium Chloride 10 meq PO Q48H PRN 07/02/20 07/31/20 Warfarin Sodium 4 mg PO Q48H 07/02/20 07/31/20 Metoprolol Tartrate [Lopressor] 25 mg PO BID 07/31/20 07/31/20 Allergies Allergy/AdvReac Type Severity Reaction Status Date / Time chlordiazepoxide HCl Allergy SEE COMMENT Verified 07/31/20 12:10 [From Librium] Penicillins Allergy Rash/Hives Verified 07/31/20 12:10 ketorolac [From Toradol] AdvReac ANXIETY Verified 07/31/20 12:10 prochlorperazine edisylate AdvReac PANIC Verified 07/31/20 12:10 [From Compazine] ATTACK prochlorperazine maleate AdvReac PANIC Verified 07/31/20 12:10 [From Compazine] ATTACK Review of Systems ROS Statement: Those systems with pertinent positive or pertinent negative responses have been documented in the HPI. ROS Other: All systems not noted in ROS Statement are negative. EKG Findings - EKG Results: EKG: interpreted by RAMIREZ, sinus rhythm (Sinus rhythm of 70 SD interval 198 QRS duration 112 daily since QTC of 420/462 possible left atrial enlargement rightward axis nonspecific T-wave configuration prolonged QT) Past Medical History Past Medical History: Heart Failure, CVA/TIA, Liver Disease, Neurologic Disorder, Osteoarthritis (OA), Pneumonia, Seizure Disorder Additional Past Medical History / Comment(s): Stroke with residual right-sided weakness 2017, TIAs, marfan's syndrome, ArnoldChiari malformation, spontaneous pneumothorax x 21, scoliosis and pectus excavatum secondary to Marfan's, chronic back pain, bilateral leg pain, gastric ulcers, sinus infections, STATED HAS POOR CIRCULATION, viral meningitis, HEP C. 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 spleenectomy 2018, L upper lobectomy d/t pneumothoraxs. Past Anesthesia/Blood Transfusion Reactions: No Reported Reaction Past Psychological History: Anxiety Smoking Status: Current every day smoker Past Alcohol Use History: None Reported Past Drug Use History: Marijuana - Past Family History Father Additional Family Medical History / Comment(s): Father is with history of AIDS. Mother Family Medical History: Diabetes Mellitus Additional Family Medical History / Comment(s): Mother at age 49 from liver cirrhosis secondary to alcohol abuse. Brother(s) Additional Family Medical History / Comment(s): Patient has one brother with no major medical problems. General Exam - General Exam Comments Initial Comments: This is a well-developed asthenic appearing female was awake alert oriented 3 Limitations: no limitations General appearance: alert, anxious Head exam: Present: atraumatic, normocephalic, normal inspection Eye exam: Present: normal appearance, PERRL, EOMI. Absent: scleral icterus, conjunctival injection, periorbital swelling ENT exam: Present: normal exam, mucous membranes moist Neck exam: Present: normal inspection. Absent: tenderness, meningismus, lymphadenopathy Respiratory exam: Present: normal lung sounds bilaterally, chest wall tenderness (Producible tenderness palpation). Absent: respiratory distress, wheezes, rales, rhonchi, stridor Cardiovascular Exam: Present: regular rate, normal rhythm, normal heart sounds. Absent: systolic murmur, diastolic murmur, rubs, gallop, clicks GI/Abdominal exam: Present: soft, normal bowel sounds. Absent: distended, tenderness, guarding, rebound, rigid Extremities exam: Present: normal inspection, full ROM, normal capillary refill. Absent: tenderness, pedal edema, joint swelling, calf tenderness Back exam: Present: full ROM, tenderness (Kyphosis and scoliosis) Neurological exam: Present: alert, oriented X3, CN II-XII intact Psychiatric exam: Present: normal affect, normal mood Skin exam: Present: warm, dry, intact, normal color. Absent: rash Course Vital Signs 07/31/20 07/31/20 11:46 12:23 Pulse Rate 75 70 Respiratory 16 15 Rate Blood Pressure 119/73 111/80 O2 Sat by Pulse 95 Oximetry Procedures - Smoking Cessation Time Spent Discussing Smoking Cessation w/Patient (Minutes): 3 Patient Acknowledges Need for Cessation: Yes Chest Pain MDM - MDM I did review the imaging and report no acute findings. They see the complete report she is feeling some improvement. The presentation is consistent with chest wall pain/costochondritis she does have pain medication at home she will be discharged Disposition Clinical Impression: Costochondritis, Chest wall syndrome Disposition: HOME SELF-CARE Condition: Good Instructions (If sedation given, give patient instructions): Costochondritis (ED), Chest Pain (ED) Is patient prescribed a controlled substance at d/c from ED?: No Referrals: [facility] collins [Primary Care Provider] - 1-2 days
[2020-07-31 12:19] LABS: Basophils # (A) 0.2 k/uL (0-0.2); Basophils % (A) 2 %; Eosinophils # (A) 0.6 k/uL (0-0.7); Eosinophils % (A) 7 %; HCT 45.2 % (34.0-46.0); Lymphocytes % (A) 24 %; MCHC 33.3 g/dL (31.0-37.0); MCV 102.2 fL (80.0-100.0); Macrocytosis Slight; Mean Platelet Volume 7.4; Monocytes # (A) 0.6 k/uL (0-1.0); Monocytes % (A) 7 %; Neutrophils # (A) 5.1 k/uL (1.3-7.7); Neutrophils % (A) 59 %; Platelet Count 363 k/uL (150-450); RBC 4.42 m/uL (3.80-5.40); RDW 13.8 % (11.5-15.5); WBC 8.6 k/uL (3.8-10.6)
[2020-07-31 12:29] LABS: INR 2.9 (<1.2); Partial Thromboplastin Time 42.7 sec (22.0-30.0); Prothrombin Time 28.4 sec (9.0-12.0)
[2020-07-31 12:30] LABS: ALT 15 U/L (4-34); AST 27 U/L (14-36); African American GFR (CKD) >90 (>60 ml/min/1.73 sqM); Albumin 4.1 g/dL (3.5-5.0); Alkaline Phosphatase 67 U/L (38-126); Anion Gap 7 mmol/L; Blood Urea Nitrogen 7 mg/dL (7-17); Calcium 8.8 mg/dL (8.4-10.2); Carbon Dioxide 23 mmol/L (22-30); Chloride 107 mmol/L (98-107); Creatine Kinase 58 U/L (30-135); Glucose 120 mg/dL (74-99); Lipase 34 U/L (23-300); Magnesium 1.8 mg/dL (1.6-2.3); Non-African American GFR(CKD) >90 (>60 ml/min/1.73 sqM); Potassium 4.2 mmol/L (3.5-5.1); Sodium 137 mmol/L (137-145); Total Bilirubin 0.6 mg/dL (0.2-1.3); Total Protein 7.5 g/dL (6.3-8.2)
--- NOTE | 2020-07-31 12:59 | XR ---
EXAMINATION TYPE: XR chest 2V DATE OF EXAM: 07/31/2020 COMPARISON: 07/25/2020 INDICATION: Chest pain TECHNIQUE: Frontal and lateral views of the chest are obtained. FINDINGS: The heart size is moderately prominent. The pulmonary vasculature is normal. There is improvement of the lung infiltrates. There is mild residual the right base. Scoliosis is present. IMPRESSION: 1. Mild residual infiltrate at the right base.
[2020-07-31 13:42] VITALS: BP 111/64; PULSE 69; RESP 18; TEMP 97.5
== END 2020-07-31 13:41 | disposition home or self-care (01) ==
LOC: EC 11:44
DX: M94.0 Chondrocostal junction syndrome [Tietze] (principal); I50.9 Heart failure, unspecified; G40.909 Epilepsy, unspecified, not intractable, without status epilepticus; F32.9 Major depressive disorder, single episode, unspecified; F41.9 Anxiety disorder, unspecified; F17.200 Nicotine dependence, unspecified, uncomplicated; Z79.82 Long term (current) use of aspirin; Z79.01 Long term (current) use of anticoagulants; Z79.899 Other long term (current) drug therapy; Z88.0 Allergy status to penicillin; Z88.5 Allergy status to narcotic agent; Z88.8 Allergy status to other drugs, medicaments and biological substances; Z95.1 Presence of aortocoronary bypass graft; Z86.73 Personal history of transient ischemic attack (TIA), and cerebral infarction without residual deficits; Z95.2 Presence of prosthetic heart valve
CPT/HCPCS: 36415; 71046; 80053; 82550; 83690; 83735; 83880; 84484; 85025; 85610; 85730; 93005; 96374; 96375; 99285

== ENCOUNTER 2020-10-04 16:32 | Emergency (ER) | payer OTHER ==
[2020-10-04 16:38] VITALS: TEMP 98
[2020-10-04 17:28] LABS: INR 1.8 (<1.2); Prothrombin Time 17.7 sec (9.0-12.0)
--- NOTE | 2020-10-04 17:33 | XR ---
EXAMINATION TYPE: XR chest 2V DATE OF EXAM: 10/04/2020 COMPARISON: 07/31/2020 HISTORY: Chest pain TECHNIQUE: 2 views FINDINGS: There is no heart failure nor confluent pneumonic infiltrate. There are no hilar masses. Th oracic aorta is atheromatous. There is thoracolumbar kyphotic deformity. There are sternal wires. The re is a plate fixing the proximal right humerus. IMPRESSION: No active cardiopulmonary disease. There is clearing of the mild infiltrate right lower lobe compared to old exam.
[2020-10-04 17:36] LABS: Basophils # (A) 0.1 k/uL (0-0.2); Basophils % (A) 1 %; Eosinophils # (A) 0.3 k/uL (0-0.7); Eosinophils % (A) 3 %; HCT 47.9 % (34.0-46.0); HGB 15.8 gm/dL (11.4-16.0); Lymphocytes # (A) 2.1 k/uL (1.0-4.8); Lymphocytes % (A) 26 %; MCH 33.2 pg (25.0-35.0); MCV 100.6 fL (80.0-100.0); Mean Platelet Volume 8.2; Monocytes # (A) 0.5 k/uL (0-1.0); Monocytes % (A) 6 %; Neutrophils # (A) 4.8 k/uL (1.3-7.7); Neutrophils % (A) 59 %; Platelet Count 287 k/uL (150-450); RBC 4.76 m/uL (3.80-5.40); WBC 8.1 k/uL (3.8-10.6)
--- NOTE | 2020-10-04 17:52 | ED ---
Chest Pain HPI - General Chief Complaint: Chest Pain Stated Complaint: chest pain Time Seen by Provider: 10/04/20 16:37 Source: patient, EMS Mode of arrival: EMS Limitations: no limitations - History of Present Illness Initial Comments: This 35-year-old female presents with a complaint of some chest pain. This is primarily into the midsternal to left chest. It is described as a sharp type of sensation which is nonradiating. This is chronic in nature but she states it seems to be worse over the last couple of weeks. She was just here for similar 4 days ago. She denies any change in her chronic smoker's cough. She denies any fevers or chills. She denies any shortness of breath, leg pain, swelling. She denies any history of DVT or PE. She does relate a history of previous cardiac disease including valvular replacement, aortic dissection which is inoperable, and CABG. She also relates that she's had approximately 25 previous pneumothoraces. No other complaints or modifying factors. - Related Data Home Medications Medication Instructions Recorded Confirmed Cholecalciferol [Vitamin D3 (25 5,000 unit PO DAILY 05/18/18 07/31/20 Mcg = 1000 Iu)] DULoxetine HCL [Cymbalta] 60 mg PO DAILY 06/14/18 07/31/20 Ferrous Sulfate [Iron (65 MG 325 mg PO DAILY 06/14/18 07/31/20 Elemental)] OLANZapine [ZyPREXA] 15 mg PO HS 04/19/19 07/31/20 Aspirin EC [Ecotrin Low Dose] 81 mg PO DAILY 07/22/19 07/31/20 Promethazine 6.25MG/5Ml [Phenergan 6.25 mg PO Q8H PRN 07/22/19 07/31/20 Syrup] Warfarin [Coumadin] 5 mg PO Q48H 07/25/19 07/31/20 Albuterol Sulfate [Proair Hfa] 1 - 2 puff INHALATION RT-Q6H PRN 07/02/20 07/31/20 Furosemide [Lasix] 20 mg PO Q48H PRN 07/02/20 07/31/20 Gabapentin 600 mg PO TID 07/02/20 07/31/20 HYDROcodone/APAP 7.5-325MG [[place] 1 tab PO BID PRN 07/02/20 07/31/20 7.5-325] Ondansetron [Zofran] 4 mg PO DAILY PRN 07/02/20 07/31/20 Potassium Chloride 10 meq PO Q48H PRN 07/02/20 07/31/20 Warfarin Sodium 4 mg PO Q48H 07/02/20 07/31/20 Metoprolol Tartrate [Lopressor] 25 mg PO BID 07/31/20 07/31/20 Allergies Allergy/AdvReac Type Severity Reaction Status Date / Time chlordiazepoxide HCl Allergy SEE COMMENT Verified 10/04/20 16:40 [From Librium] Penicillins Allergy Rash/Hives Verified 10/04/20 16:40 ketorolac [From Toradol] AdvReac ANXIETY Verified 10/04/20 16:40 prochlorperazine edisylate AdvReac PANIC Verified 10/04/20 16:40 [From Compazine] ATTACK prochlorperazine maleate AdvReac PANIC Verified 10/04/20 16:40 [From Compazine] ATTACK Review of Systems ROS Statement: Those systems with pertinent positive or pertinent negative responses have been documented in the HPI. ROS Other: All systems not noted in ROS Statement are negative. Past Medical History Past Medical History: Heart Failure, CVA/TIA, Liver Disease, Neurologic Disorder, Osteoarthritis (OA), Pneumonia, Seizure Disorder Additional Past Medical History / Comment(s): Stroke with residual right-sided weakness 2017, TIAs, marfan's syndrome, ArnoldChiari malformation, spontaneous pneumothorax x 21, scoliosis and pectus excavatum secondary to Marfan's, chronic back pain, bilateral leg pain, gastric ulcers, sinus infections, STATED HAS POOR CIRCULATION, viral meningitis, HEP C. 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 spleenectomy 2018, L upper lobectomy d/t pneumothoraxs. Past Anesthesia/Blood Transfusion Reactions: No Reported Reaction Past Psychological History: Anxiety Smoking Status: Current every day smoker Past Alcohol Use History: None Reported Past Drug Use History: Marijuana - Past Family History Father Additional Family Medical History / Comment(s): Father is with history of AIDS. Mother Family Medical History: Diabetes Mellitus Additional Family Medical History / Comment(s): Mother at age 49 from liver cirrhosis secondary to alcohol abuse. Brother(s) Additional Family Medical History / Comment(s): Patient has one brother with no major medical problems. General Exam - General Exam Comments Initial Comments: Constitutional: Alert and oriented, no apparent distress Vitals: Reviewed, please see nursing notes HEENT: No gross trauma identified, trachea midline, no respiratory distress Neck: No tenderness, good range of motion Heart: Regular rate and rhythm without murmur Lungs: Clear to auscultation bilaterally, no wheezing rhonchi or rales Abdomen: No tenderness or peritoneal signs noted, nondistended Back: No tenderness Neurologic: No gross sensory or motor deficits identified Integumentary: No rash or change in pigmentation Psychiatric: Alert and oriented, appropriate mood and affect Limitations: no limitations Course Vital Signs 10/04/20 16:34 Temperature 98 F Pulse Rate 67 Respiratory 18 Rate Blood Pressure 134/71 O2 Sat by Pulse 99 Oximetry Chest Pain [facility] The patient was seen and examined. All diagnostics were reviewed. An IV is established and she was placed on a alarm security or surveillance monitor. The EKG shows a normal sinus rhythm at a rate of 65. There is some T-wave inversions noted in the anterior leads. There is no ST elevation identified. The [place] intervals 170, QRS duration is 110, and the QTc interval is 449. Old records are reviewed. Appears as though she was here approximate 4 days ago for similar. She had a chest x-ray at that time which did not show any acute abnormality. Here quite frequently for chronic pain issues. Records relate that she does have a history of polysubstance as well and heroin and cocaine. Disposition Clinical Impression: Chronic chest pain, Chronic pain Disposition: HOME SELF-CARE Condition: Good Instructions (If sedation given, give patient instructions): Chest Pain (ED) Additional Instructions: Please follow-up with your geriatrician in the next 2-4 days. Is patient prescribed a controlled substance at d/c from ED?: No Referrals: [facility] [Primary Care Provider] - 1-2 days Time of Disposition: 18:25
[2020-10-04 18:00] LABS: ALT 13 U/L (4-34); AST 28 U/L (14-36); African American GFR (CKD) >90 (>60 ml/min/1.73 sqM); Albumin 4.6 g/dL (3.5-5.0); Alkaline Phosphatase 79 U/L (38-126); Anion Gap 13 mmol/L; Blood Urea Nitrogen 11 mg/dL (7-17); Calcium 9.6 mg/dL (8.4-10.2); Carbon Dioxide 20 mmol/L (22-30); Chloride 107 mmol/L (98-107); Glucose 86 mg/dL (74-99); Non-African American GFR(CKD) >90 (>60 ml/min/1.73 sqM); Potassium 3.9 mmol/L (3.5-5.1); Sodium 140 mmol/L (137-145); Total Bilirubin 0.9 mg/dL (0.2-1.3); Total Protein 8.8 g/dL (6.3-8.2)
[2020-10-04 18:40] VITALS: BP 114/77; PULSE 65; RESP 17
== END 2020-10-04 18:46 | disposition home or self-care (01) ==
LOC: EC 16:32
DX: G89.29 Other chronic pain (principal); R07.9 Chest pain, unspecified; M19.90 Unspecified osteoarthritis, unspecified site; M54.9 Dorsalgia, unspecified; G40.909 Epilepsy, unspecified, not intractable, without status epilepticus; I50.9 Heart failure, unspecified; F41.9 Anxiety disorder, unspecified; F17.200 Nicotine dependence, unspecified, uncomplicated; Z79.899 Other long term (current) drug therapy; Z79.01 Long term (current) use of anticoagulants; Z79.82 Long term (current) use of aspirin; Z88.0 Allergy status to penicillin; Z88.8 Allergy status to other drugs, medicaments and biological substances; Z88.6 Allergy status to analgesic agent; Z87.11 Personal history of peptic ulcer disease; Z95.2 Presence of prosthetic heart valve; Z96.60 Presence of unspecified orthopedic joint implant; Z86.73 Personal history of transient ischemic attack (TIA), and cerebral infarction without residual deficits; Z95.1 Presence of aortocoronary bypass graft
CPT/HCPCS: 36415; 71046; 80053; 83735; 84484; 85025; 85610; 85730; 93005; 99285

== ENCOUNTER 2020-10-19 18:47 | Emergency (ER) | payer OTHER ==
[2020-10-19 18:55] VITALS: RESP 18; TEMP 97.9
[2020-10-19] MEDS ORDERED: MORPHINE SULFATE 4 MG/ML SYRINGE IVP STA (19:08)
--- NOTE | 2020-10-19 19:24 | ED ---
General Adult HPI - General Chief complaint: Chest Pain Stated complaint: Chest Pain Time Seen by Provider: 10/19/20 18:59 Source: patient, EMS Mode of arrival: EMS Limitations: no limitations - History of Present Illness Initial comments: 35-year-old female patient with past medical history significant for heart failure with valve replacements, Marfan syndrome, CVA, seizure disorder, hypertension, presents to the emergency department today for evaluation of left- sided chest pain. Patient states the pain started around 4:00 in the morning and has been constant. States she has been short of breath. She is also reporting nausea, vomiting, and diarrhea. Denies any sweats. Denies any radiation of her chest pain through to her back. Denies any exacerbating or relieving factors. States she does have a smokers cough denies any change to frequency of cough or color/consistency of sputum. Patient denies any recent rash, fever, chills, abdominal pain, numbness, tingling, dizziness, weakness, hematuria, dysuria, urinary urgency, urinary frequency, headache, visual changes, or any other complaints. - Related Data Home Medications Medication Instructions Recorded Confirmed Cholecalciferol [Vitamin D3 (25 5,000 unit PO DAILY 05/18/18 10/19/20 Mcg = 1000 Iu)] Ferrous Sulfate [Iron (65 MG 325 mg PO DAILY 06/14/18 10/19/20 Elemental)] Aspirin EC [Ecotrin Low Dose] 81 mg PO DAILY 07/22/19 10/19/20 Warfarin [Coumadin] 5 mg PO Q48H 07/25/19 10/19/20 Albuterol Sulfate [Proair Hfa] 1 - 2 puff INHALATION RT-Q6H PRN 07/02/20 10/19/20 Gabapentin 600 mg PO TID 07/02/20 10/19/20 HYDROcodone/APAP 7.5-325MG [[place] 1 tab PO BID PRN 07/02/20 10/19/20 7.5-325] Ondansetron [Zofran] 4 mg PO DAILY PRN 07/02/20 10/19/20 Warfarin Sodium 4 mg PO Q48H 07/02/20 10/19/20 Metoprolol Tartrate [Lopressor] 25 mg PO BID 07/31/20 10/19/20 Fluticasone Propionate [Flovent 1 puff INHALATION RT-DAILY 10/19/20 10/19/20 Hfa 220 mcg] Allergies Allergy/AdvReac Type Severity Reaction Status Date / Time chlordiazepoxide HCl Allergy SEE COMMENT Verified 10/19/20 20:13 [From Librium] Penicillins Allergy Rash/Hives Verified 10/19/20 20:13 ketorolac [From Toradol] AdvReac ANXIETY Verified 10/19/20 20:13 prochlorperazine edisylate AdvReac PANIC Verified 10/19/20 20:13 [From Compazine] ATTACK prochlorperazine maleate AdvReac PANIC Verified 10/19/20 20:13 [From Compazine] ATTACK Review of Systems ROS Statement: Those systems with pertinent positive or pertinent negative responses have been documented in the HPI. ROS Other: All systems not noted in ROS Statement are negative. Past Medical History Past Medical History: Heart Failure, CVA/TIA, Liver Disease, Neurologic Disorder, Osteoarthritis (OA), Pneumonia, Seizure Disorder Additional Past Medical History / Comment(s): Stroke with residual right-sided weakness 2017, TIAs, marfan's syndrome, ArnoldChiari malformation, spontaneous pneumothorax x 21, scoliosis and pectus excavatum secondary to Marfan's, chronic back pain, bilateral leg pain, gastric ulcers, sinus infections, STATED HAS POOR CIRCULATION, viral meningitis, HEP C. 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 spleenectomy 2018, L upper lobectomy d/t pneumothoraxs. Past Anesthesia/Blood Transfusion Reactions: No Reported Reaction Past Psychological History: Anxiety Smoking Status: Current every day smoker Past Alcohol Use History: None Reported Past Drug Use History: Marijuana - Past Family History Father Additional Family Medical History / Comment(s): Father is with history of AIDS. Mother Family Medical History: Diabetes Mellitus Additional Family Medical History / Comment(s): Mother at age 49 from liver cirrhosis secondary to alcohol abuse. Brother(s) Additional Family Medical History / Comment(s): Patient has one brother with no major medical problems. General Exam Limitations: no limitations General appearance: alert, in no apparent distress, other (this is a well- developed, well-nourished adult female patient in no acute distress.) Eye exam: Present: normal appearance, PERRL, EOMI. Absent: scleral icterus, conjunctival injection, periorbital swelling ENT exam: Present: normal exam, normal oropharynx, mucous membranes moist Respiratory exam: Present: normal lung sounds bilaterally. Absent: respiratory distress, wheezes, rales, rhonchi, stridor Cardiovascular Exam: Present: regular rate, normal rhythm, normal heart sounds. Absent: systolic murmur, diastolic murmur, rubs, gallop, clicks GI/Abdominal exam: Present: soft, normal bowel sounds. Absent: distended, tenderness, guarding, rebound, rigid Neurological exam: Present: alert, oriented X3, CN II-XII intact Psychiatric exam: Present: normal affect, normal mood Skin exam: Present: warm, dry, intact, normal color. Absent: rash Course Vital Signs 10/19/20 10/19/20 18:49 21:12 Temperature 97.9 F Pulse Rate 69 65 Respiratory 18 18 Rate Blood Pressure 113/67 104/56 O2 Sat by Pulse 92 L 94 L Oximetry EKG Findings - EKG Comments: EKG Findings:: EKG obtained at 1902 shows normal sinus rhythmventricular rate is 72, NC interval 146, QRS duration 112, QTC 396, QTc 433. with ST depression noted in V5 and V6 V3 with some mild elevation in lead 2 and lead 3. This is slightly different than her previous EKG from October 04. Medical Decision Making - Medical Decision Making 35 year-old female patient presents to the emergency department for evaluation of left-sided chest pain. Patient states pain started around 4 AM and has been constant since. Denies exacerbating or relieving factors. Did have some mild shortness of breath. Lungs are clear to auscultation with good air movement. Labs reviewed and are unremarkable. Trop negative. Patient symptoms improved somewhat with medication. EKG is somewhat ischemic, but not significantly different from previous. She will be discharged home to follow-up with her primary care physician for recheck in 1-2 days. Return parameters were discussed in detail. She verbalizes understanding and agrees with this plan. - Lab Data Result diagrams: 10/19/20 19:14 10/19/20 19:56 Lab Results 10/19/20 10/19/20 10/19/20 Range/Units 19:14 19:56 19:56 WBC 11.9 H (3.8-10.6) k/uL RBC 5.41 H (3.80-5.40) m/uL Hgb 17.4 H (11.4-16.0) gm/dL Hct 55.5 H (34.0-46.0) % MCV 102.6 H (80.0-100.0) fL MCH 32.1 (25.0-35.0) pg MCHC 31.3 (31.0-37.0) g/dL RDW 13.4 (11.5-15.5) % Plt Count 317 (150-450) k/uL MPV 8.2 Neutrophils % 68 % Lymphocytes % 24 % Monocytes % 5 % Eosinophils % 1 % Basophils % 1 % Neutrophils # 8.0 H (1.3-7.7) k/uL Lymphocytes # 2.8 (1.0-4.8) k/uL Monocytes # 0.6 (0-1.0) k/uL Eosinophils # 0.1 (0-0.7) k/uL Basophils # 0.1 (0-0.2) k/uL Macrocytosis Slight PT (9.0-12.0) sec INR (<1.2) APTT (22.0-30.0) sec Sodium 138 (137-145) mmol/L Potassium 4.3 (3.5-5.1) mmol/L Chloride 105 (98-107) mmol/L Carbon Dioxide 25 (22-30) mmol/L Anion Gap 8 mmol/L BUN 7 (7-17) mg/dL Creatinine 0.51 L (0.52-1.04) mg/dL Est GFR (CKD-EPI)AfAm >90 (>60 ml/min/1.73 sqM) Est GFR (CKD-EPI)NonAf >90 (>60 ml/min/1.73 sqM) Glucose 89 (74-99) mg/dL Calcium 9.4 (8.4-10.2) mg/dL Magnesium 1.9 (1.6-2.3) mg/dL Total Bilirubin 0.8 (0.2-1.3) mg/dL AST 28 (14-36) U/L ALT 14 (4-34) U/L Alkaline Phosphatase 66 (38-126) U/L Troponin I <0.012 (0.000-0.034) ng/mL Total Protein 7.9 (6.3-8.2) g/dL Albumin 4.4 (3.5-5.0) g/dL Lipase 106 (23-300) U/L 10/19/20 Range/Units 20:48 WBC (3.8-10.6) k/uL RBC (3.80-5.40) m/uL Hgb (11.4-16.0) gm/dL Hct (34.0-46.0) % MCV (80.0-100.0) fL MCH (25.0-35.0) pg MCHC (31.0-37.0) g/dL RDW (11.5-15.5) % Plt Count (150-450) k/uL MPV Neutrophils % % Lymphocytes % % Monocytes % % Eosinophils % % Basophils % % Neutrophils # (1.3-7.7) k/uL Lymphocytes # (1.0-4.8) k/uL Monocytes # (0-1.0) k/uL Eosinophils # (0-0.7) k/uL Basophils # (0-0.2) k/uL Macrocytosis PT 21.9 H (9.0-12.0) sec INR 2.2 H (<1.2) APTT 36.0 H (22.0-30.0) sec Sodium (137-145) mmol/L Potassium (3.5-5.1) mmol/L Chloride (98-107) mmol/L Carbon Dioxide (22-30) mmol/L Anion Gap mmol/L BUN (7-17) mg/dL Creatinine (0.52-1.04) mg/dL Est GFR (CKD-EPI)AfAm (>60 ml/min/1.73 sqM) Est GFR (CKD-EPI)NonAf (>60 ml/min/1.73 sqM) Glucose (74-99) mg/dL Calcium (8.4-10.2) mg/dL Magnesium (1.6-2.3) mg/dL Total Bilirubin (0.2-1.3) mg/dL AST (14-36) U/L ALT (4-34) U/L Alkaline Phosphatase (38-126) U/L Troponin I (0.000-0.034) ng/mL Total Protein (6.3-8.2) g/dL Albumin (3.5-5.0) g/dL Lipase (23-300) U/L - Radiology Data Radiology results: report reviewed, image reviewed Two-view x-ray of the chest is obtained. Report was reviewed in its entirety. Impression by Dr. Ortiz shows no active cardiopulmonary disease. Thoracolumbar kyphotic deformity. No change compared to old exam. Disposition Clinical Impression: Chest pain Disposition: HOME SELF-CARE Condition: Good Instructions (If sedation given, give patient instructions): Chest Pain (ED) Additional Instructions: Follow-up with the primary care physician for recheck in 1-2 days. Return to the emergency department for any new, worsening, or concerning symptoms. Is patient prescribed a controlled substance at d/c from ED?: No Referrals: [facility] [Primary Care Provider] - 1-2 days Time of Disposition: 21:31
[2020-10-19 19:32] LABS: Basophils # (A) 0.1 k/uL (0-0.2); Basophils % (A) 1 %; Eosinophils # (A) 0.1 k/uL (0-0.7); Eosinophils % (A) 1 %; HGB 17.4 gm/dL (11.4-16.0); Lymphocytes # (A) 2.8 k/uL (1.0-4.8); Lymphocytes % (A) 24 %; MCH 32.1 pg (25.0-35.0); MCHC 31.3 g/dL (31.0-37.0); MCV 102.6 fL (80.0-100.0); Macrocytosis Slight; Mean Platelet Volume 8.2; Monocytes # (A) 0.6 k/uL (0-1.0); Monocytes % (A) 5 %; Neutrophils % (A) 68 %; Platelet Count 317 k/uL (150-450); RBC 5.41 m/uL (3.80-5.40); RDW 13.4 % (11.5-15.5); WBC 11.9 k/uL (3.8-10.6)
[2020-10-19 19:33] LABS: HCT 55.5 % (34.0-46.0)
--- NOTE | 2020-10-19 20:11 | XR ---
EXAMINATION TYPE: XR chest 2V DATE OF EXAM: 10/19/2020 COMPARISON: 10/04/2020 HISTORY: Chest pain TECHNIQUE: 2 views FINDINGS: There is no heart failure nor confluent pneumonic infiltrate. Thoracic aorta is atheromatou s. There are sternal wires. There are chest leads. There is almost 90 degree thoracolumbar kyphotic d eformity. There is anterior wedging of lower thoracic upper lumbar vertebra. There is no evidence of pleural effusion. There is a plate fixing the right proximal humerus. IMPRESSION: No active cardiopulmonary disease. Thoracolumbar kyphotic deformity. No change compared t o old exam.
[2020-10-19 20:28] LABS: ALT 14 U/L (4-34); AST 28 U/L (14-36); African American GFR (CKD) >90 (>60 ml/min/1.73 sqM); Albumin 4.4 g/dL (3.5-5.0); Alkaline Phosphatase 66 U/L (38-126); Anion Gap 8 mmol/L; Blood Urea Nitrogen 7 mg/dL (7-17); Calcium 9.4 mg/dL (8.4-10.2); Carbon Dioxide 25 mmol/L (22-30); Chloride 105 mmol/L (98-107); Glucose 89 mg/dL (74-99); Lipase 106 U/L (23-300); Magnesium 1.9 mg/dL (1.6-2.3); Non-African American GFR(CKD) >90 (>60 ml/min/1.73 sqM); Potassium 4.3 mmol/L (3.5-5.1); Sodium 138 mmol/L (137-145); Total Bilirubin 0.8 mg/dL (0.2-1.3); Total Protein 7.9 g/dL (6.3-8.2)
[2020-10-19 21:11] LABS: INR 2.2 (<1.2); Prothrombin Time 21.9 sec (9.0-12.0)
[2020-10-19] MEDS ORDERED: HYDROmorphone 1 MG/ML 1 ML SYRINGE IVP STA (21:31)
[2020-10-19 21:50] VITALS: BP 123/66; PULSE 64
== END 2020-10-19 21:50 | disposition home or self-care (01) ==
LOC: EC 18:47
DX: R07.9 Chest pain, unspecified (principal); R06.02 Shortness of breath; I99.8 Other disorder of circulatory system; F17.200 Nicotine dependence, unspecified, uncomplicated; I50.9 Heart failure, unspecified; M19.90 Unspecified osteoarthritis, unspecified site; G40.909 Epilepsy, unspecified, not intractable, without status epilepticus; I69.351 Hemiplegia and hemiparesis following cerebral infarction affecting right dominant side; Q87.40 Marfan syndrome, unspecified; G89.29 Other chronic pain; M54.9 Dorsalgia, unspecified; B19.20 Unspecified viral hepatitis C without hepatic coma; F41.9 Anxiety disorder, unspecified; Z79.01 Long term (current) use of anticoagulants; Z79.82 Long term (current) use of aspirin; Z79.51 Long term (current) use of inhaled steroids; Z79.899 Other long term (current) drug therapy; Z95.1 Presence of aortocoronary bypass graft; Z95.828 Presence of other vascular implants and grafts; Z86.14 Personal history of Methicillin resistant Staphylococcus aureus infection; Z88.8 Allergy status to other drugs, medicaments and biological substances; Z88.6 Allergy status to analgesic agent; Z88.0 Allergy status to penicillin; Z87.19 Personal history of other diseases of the digestive system
CPT/HCPCS: 99285; 96374; 96375; 36415; 93005; 80053; 83690; 83735; 84484; 85025; 85610; 85730; 71046; J2270; J1170

== ENCOUNTER 2020-10-25 20:38 | Emergency (ER) | payer OTHER ==
[2020-10-25 20:48] VITALS: RESP 18; TEMP 98.5
[2020-10-25] MEDS ORDERED: ASPIRIN 81 MG PO STA (21:03)
--- NOTE | 2020-10-25 21:19 | ED ---
Chest Pain HPI - General Chief Complaint: Chest Pain Stated Complaint: Chest pain Time Seen by Provider: 10/25/20 20:59 Source: EMS Mode of arrival: EMS Limitations: no limitations - History of Present Illness Initial Comments: 36-year-old female with history of substance abuse, CAD, [place], Marfan syndrome presents to the emergency department with a chief complaint of chest pain.patient reports it chest pain started earlier today and is located in the midsternal region without radiation. Patient reports it feels like her typical chest pain. She describes it as a squeezing sensation. Denies any associated shortness of breath, lightheadedness, dizziness or diaphoretic episodes. Does report some nausea but no vomiting. Denies any abdominal pain, extremity weakness or paresthesias. - Related Data Home Medications Medication Instructions Recorded Confirmed Cholecalciferol [Vitamin D3 (25 5,000 unit PO DAILY 05/18/18 10/19/20 Mcg = 1000 Iu)] Ferrous Sulfate [Iron (65 MG 325 mg PO DAILY 06/14/18 10/19/20 Elemental)] Aspirin EC [Ecotrin Low Dose] 81 mg PO DAILY 07/22/19 10/19/20 Warfarin [Coumadin] 5 mg PO Q48H 07/25/19 10/19/20 Albuterol Sulfate [Proair Hfa] 1 - 2 puff INHALATION RT-Q6H PRN 07/02/20 10/19/20 Gabapentin 600 mg PO TID 07/02/20 10/19/20 HYDROcodone/APAP 7.5-325MG [[place] 1 tab PO BID PRN 07/02/20 10/19/20 7.5-325] Ondansetron [Zofran] 4 mg PO DAILY PRN 07/02/20 10/19/20 Warfarin Sodium 4 mg PO Q48H 07/02/20 10/19/20 Metoprolol Tartrate [Lopressor] 25 mg PO BID 07/31/20 10/19/20 Fluticasone Propionate [Flovent 1 puff INHALATION RT-DAILY 10/19/20 10/19/20 Hfa 220 mcg] Allergies Allergy/AdvReac Type Severity Reaction Status Date / Time chlordiazepoxide HCl Allergy SEE COMMENT Verified 10/19/20 20:13 [From Librium] Penicillins Allergy Rash/Hives Verified 10/19/20 20:13 ketorolac [From Toradol] AdvReac ANXIETY Verified 10/19/20 20:13 prochlorperazine edisylate AdvReac PANIC Verified 10/19/20 20:13 [From Compazine] ATTACK prochlorperazine maleate AdvReac PANIC Verified 10/19/20 20:13 [From Compazine] ATTACK Review of Systems ROS Statement: Those systems with pertinent positive or pertinent negative responses have been documented in the HPI. ROS Other: All systems not noted in ROS Statement are negative. EKG Findings - EKG Comments: EKG Findings:: inverted T-wave in V3, sinus rhythm. Ventricular rate 69, [place] 186, QRS 106, QTC 460. Past Medical History Past Medical History: Heart Failure, CVA/TIA, Liver Disease, Neurologic Disorder, Osteoarthritis (OA), Pneumonia, Seizure Disorder Additional Past Medical History / Comment(s): Stroke with residual right-sided weakness 2017, TIAs, marfan's syndrome, ArnoldChiari malformation, spontaneous pneumothorax x 21, scoliosis and pectus excavatum secondary to Marfan's, chronic back pain, bilateral leg pain, gastric ulcers, sinus infections, STATED HAS POOR CIRCULATION, viral meningitis, HEP C. 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 spleenectomy 2018, L upper lobectomy d/t pneumothoraxs. Past Anesthesia/Blood Transfusion Reactions: No Reported Reaction Past Psychological History: Anxiety Smoking Status: Current every day smoker Past Alcohol Use History: None Reported Past Drug Use History: Marijuana - Past Family History Father Additional Family Medical History / Comment(s): Father is with history of AIDS. Mother Family Medical History: Diabetes Mellitus Additional Family Medical History / Comment(s): Mother at age 49 from liver cirrhosis secondary to alcohol abuse. Brother(s) Additional Family Medical History / Comment(s): Patient has one brother with no major medical problems. General Exam Limitations: no limitations General appearance: alert, in no apparent distress Head exam: Present: atraumatic, normocephalic, normal inspection Eye exam: Present: normal appearance, PERRL, EOMI Pupils: Present: normal accommodation ENT exam: Present: normal exam, normal oropharynx, mucous membranes moist Neck exam: Present: normal inspection, full ROM. Absent: tenderness Respiratory exam: Present: normal lung sounds bilaterally. Absent: respiratory distress, wheezes, rales, rhonchi, stridor, chest wall tenderness Cardiovascular Exam: Present: regular rate, normal rhythm, normal heart sounds GI/Abdominal exam: Present: soft. Absent: distended, tenderness Extremities exam: Present: normal inspection, full ROM, normal capillary refill, other (palpable DP and PT bilaterally). Absent: tenderness, pedal edema, joint swelling, calf tenderness Back exam: Present: normal inspection, full ROM. Absent: tenderness, CVA tenderness (R), CVA tenderness (L), muscle spasm, paraspinal tenderness, vertebral tenderness Neurological exam: Present: alert, oriented X3, normal gait Psychiatric exam: Present: normal affect, normal mood Skin exam: Present: warm, dry, intact, normal color Course Vital Signs 10/25/20 10/25/20 20:39 22:34 Temperature 98.5 F Pulse Rate 74 66 Respiratory 18 18 Rate Blood Pressure 140/81 144/90 O2 Sat by Pulse 99 98 Oximetry Chest Pain MDM - MDM 35-year-old female with history of substance abuse, CAD, Marfan syndrome presented emergency department a chief complaint of chest pain. On physical examination, not reproducible midsternal chest pain with atypical features. No associated shortness of breath. Patient does report some nausea and was given antiemetics. No abdominal pain. Palpable bilateral lower extremities. EKG showing sinus rhythm with inverted T waves in V3. Similar EKG to her most recent. Patient is well-known for recurrent visits to the emergency department. Patient name and number stable. Vital signs within normal limits. On reevaluation, patient reports improvement in his symptoms. Patient will be discharged with outpatient follow-up to [employer] headgate operator. Return parameters scuffed the patient was understanding and agreeable. Case discussed with Disposition Clinical Impression: Chest pain Disposition: HOME SELF-CARE Condition: Stable Instructions (If sedation given, give patient instructions): Chest Pain (ED) Additional Instructions: follow-up with a [employer] headgate operator. Please return to the Emergency Department if symptoms worsen or any other concerns. Is patient prescribed a controlled substance at d/c from ED?: No Referrals: [facility] [Primary Care Provider] - 1-2 days Time of Disposition: 22:44
[2020-10-25 21:37] LABS: Basophils # (A) 0.1 k/uL (0-0.2); Basophils % (A) 1 %; Eosinophils # (A) 0.2 k/uL (0-0.7); Eosinophils % (A) 2 %; HCT 49.2 % (34.0-46.0); HGB 15.9 gm/dL (11.4-16.0); Lymphocytes # (A) 3.3 k/uL (1.0-4.8); Lymphocytes % (A) 32 %; MCH 32.5 pg (25.0-35.0); MCHC 32.3 g/dL (31.0-37.0); MCV 100.5 fL (80.0-100.0); Monocytes # (A) 0.8 k/uL (0-1.0); Monocytes % (A) 8 %; Neutrophils # (A) 5.5 k/uL (1.3-7.7); Neutrophils % (A) 54 %; Platelet Count 326 k/uL (150-450); RBC 4.89 m/uL (3.80-5.40); RDW 12.8 % (11.5-15.5); WBC 10.2 k/uL (3.8-10.6)
[2020-10-25 21:42] LABS: INR 2.6 (<1.2); Prothrombin Time 25.6 sec (9.0-12.0)
--- NOTE | 2020-10-25 22:16 | XR ---
EXAM: XR Chest, 2 Views CLINICAL HISTORY: ITS.REASON XR Reason: Chest Pain TECHNIQUE: Frontal and lateral views of the chest. COMPARISON: October 19, 2020 FINDINGS: Lungs: The lungs are mildly hyperexpanded, similar to previous consistent with mild emphysema. No acute infiltrate or consolidation is seen. Pleural space: Unremarkable. No pneumothorax. Heart: The cardiac silhouette is enlarged. Mediastinum: Unremarkable. Bones/joints: There are multiple sternal wires. There is moderate scoliosis of the thoracic spine, unchanged. Previous fracture fixation involving the proximal right humerus. IMPRESSION: The lungs are mildly hyperexpanded, similar to previous consistent with mild emphysema. No acute infiltrate or consolidation is seen. Previous sternotomy with cardiomegaly. No overt edema is seen.
[2020-10-25 22:22] LABS: ALT 14 U/L (4-34); AST 28 U/L (14-36); African American GFR (CKD) >90 (>60 ml/min/1.73 sqM); Alkaline Phosphatase 65 U/L (38-126); Anion Gap 12 mmol/L; Blood Urea Nitrogen 9 mg/dL (7-17); Calcium 9.6 mg/dL (8.4-10.2); Carbon Dioxide 26 mmol/L (22-30); Chloride 102 mmol/L (98-107); Glucose 69 mg/dL (74-99); Lipase 80 U/L (23-300); Magnesium 1.9 mg/dL (1.6-2.3); Non-African American GFR(CKD) >90 (>60 ml/min/1.73 sqM); Sodium 140 mmol/L (137-145); Total Bilirubin 0.9 mg/dL (0.2-1.3)
[2020-10-25] MEDS ORDERED: ONDANSETRON 4 MG/2 ML VIAL IVP STA (22:29)
[2020-10-25] MEDS ORDERED: SODIUM CHLORIDE 0.9% 1,000 ML IV STA (22:29)
[2020-10-25 22:35] VITALS: BP 144/90; PULSE 66
== END 2020-10-25 22:54 | disposition home or self-care (01) ==
LOC: EC 20:38
DX: R07.9 Chest pain, unspecified (principal); I25.10 Atherosclerotic heart disease of native coronary artery without angina pectoris; I50.9 Heart failure, unspecified; G40.909 Epilepsy, unspecified, not intractable, without status epilepticus; I25.2 Old myocardial infarction; Q87.40 Marfan syndrome, unspecified; F17.200 Nicotine dependence, unspecified, uncomplicated; Z79.01 Long term (current) use of anticoagulants; Z79.51 Long term (current) use of inhaled steroids; Z79.82 Long term (current) use of aspirin; Z79.899 Other long term (current) drug therapy; Z88.0 Allergy status to penicillin; Z88.5 Allergy status to narcotic agent; Z88.8 Allergy status to other drugs, medicaments and biological substances; Z95.1 Presence of aortocoronary bypass graft; Z86.73 Personal history of transient ischemic attack (TIA), and cerebral infarction without residual deficits; Z95.2 Presence of prosthetic heart valve
CPT/HCPCS: 36415; 71046; 80053; 83690; 83735; 84484; 85025; 85610; 85730; 93005; 99285

== ENCOUNTER 2020-11-04 10:24 | Emergency (ER) | payer OTHER ==
[2020-11-04 10:31] VITALS: RESP 18; TEMP 97.6
[2020-11-04] MEDS ORDERED: SODIUM CHLORIDE 0.9% 500 ML 500 ML IV STA (10:45)
[2020-11-04] MEDS ORDERED: ONDANSETRON 4 MG/2 ML VIAL IVP STA (10:46)
[2020-11-04] MEDS ORDERED: MORPHINE SULFATE 2 MG/ML SYRINGE IVP ONE (10:46)
--- NOTE | 2020-11-04 10:59 | ED ---
Abdominal Pain HPI - General Chief Complaint: Abdominal Pain Stated Complaint: Chest Pain Time Seen by Provider: 11/04/20 10:34 Source: patient, RN notes reviewed Mode of arrival: ambulatory Limitations: no limitations - History of Present Illness Initial Comments: This a 35-year-old female presents emergency Department with chief complaint of abdominal chest pain. This is a chronic symptom she states but states it worsened. Patient denies any increased shortness of breath she does have a chronic cough from smoking. Patient does have multiple comorbidities denies any recent procedures for medication changes. She has been taking her Coumadin as directed. Denies any hematuria no vomiting states that she's had slight nausea. Patient has no headache dizziness no change in her chronic back pain. - Related Data Home Medications Medication Instructions Recorded Confirmed Cholecalciferol [Vitamin D3 (25 5,000 unit PO DAILY 05/18/18 11/04/20 Mcg = 1000 Iu)] Ferrous Sulfate [Iron (65 MG 325 mg PO DAILY 06/14/18 11/04/20 Elemental)] Aspirin EC [Ecotrin Low Dose] 81 mg PO DAILY 07/22/19 11/04/20 Warfarin [Coumadin] 5 mg PO Q48H 07/25/19 11/04/20 Albuterol Sulfate [Proair Hfa] 1 - 2 puff INHALATION RT-Q6H PRN 07/02/20 11/04/20 Gabapentin 600 mg PO TID 07/02/20 11/04/20 HYDROcodone/APAP 7.5-325MG [[place] 1 tab PO BID PRN 07/02/20 11/04/20 7.5-325] Ondansetron [Zofran] 4 mg PO DAILY PRN 07/02/20 11/04/20 Warfarin Sodium 4 mg PO Q48H 07/02/20 11/04/20 Metoprolol Tartrate [Lopressor] 25 mg PO BID 07/31/20 11/04/20 Fluticasone Propionate [Flovent 1 puff INHALATION RT-DAILY 10/19/20 11/04/20 Hfa 220 mcg] Allergies Allergy/AdvReac Type Severity Reaction Status Date / Time chlordiazepoxide HCl Allergy SEE COMMENT Verified 11/04/20 11:58 [From Librium] Penicillins Allergy Rash/Hives Verified 11/04/20 11:58 ketorolac [From Toradol] AdvReac ANXIETY Verified 11/04/20 11:58 prochlorperazine edisylate AdvReac PANIC Verified 11/04/20 11:58 [From Compazine] ATTACK prochlorperazine maleate AdvReac PANIC Verified 11/04/20 11:58 [From Compazine] ATTACK Review of Systems ROS Statement: Those systems with pertinent positive or pertinent negative responses have been documented in the HPI. ROS Other: All systems not noted in ROS Statement are negative. Past Medical History Past Medical History: Heart Failure, CVA/TIA, Liver Disease, Neurologic Disorder, Osteoarthritis (OA), Pneumonia, Seizure Disorder Additional Past Medical History / Comment(s): Stroke with residual right-sided weakness 2017, TIAs, marfan's syndrome, ArnoldChiari malformation, spontaneous pneumothorax x 21, scoliosis and pectus excavatum secondary to Marfan's, chronic back pain, bilateral leg pain, gastric ulcers, sinus infections, STATED HAS POOR CIRCULATION, viral meningitis, HEP C. 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 spleenectomy 2018, L upper lobectomy d/t pneumothoraxs. Past Anesthesia/Blood Transfusion Reactions: No Reported Reaction Past Psychological History: Anxiety Smoking Status: Current every day smoker Past Alcohol Use History: None Reported Past Drug Use History: Marijuana - Past Family History Father Additional Family Medical History / Comment(s): Father is with history of AIDS. Mother Family Medical History: Diabetes Mellitus Additional Family Medical History / Comment(s): Mother at age 49 from liver cirrhosis secondary to alcohol abuse. Brother(s) Additional Family Medical History / Comment(s): Patient has one brother with no major medical problems. General Exam Limitations: no limitations General appearance: alert, in no apparent distress Head exam: Present: atraumatic, normocephalic, normal inspection Eye exam: Present: normal appearance, PERRL, EOMI. Absent: scleral icterus, conjunctival injection, periorbital swelling ENT exam: Present: mucous membranes moist. Absent: normal exam, normal oropharynx Neck exam: Present: normal inspection, full ROM. Absent: tenderness, meningismus, lymphadenopathy Respiratory exam: Present: decreased breath sounds. Absent: normal lung sounds bilaterally, respiratory distress, wheezes, rales, rhonchi, stridor Cardiovascular Exam: Present: regular rate, normal rhythm, normal heart sounds. Absent: systolic murmur, diastolic murmur, rubs, gallop, clicks GI/Abdominal exam: Present: soft, tenderness, normal bowel sounds. Absent: distended, guarding, rebound, rigid Back exam: Present: full ROM. Absent: normal inspection (Chronic deformity noted), tenderness Neurological exam: Present: alert, oriented X3 Course Vital Signs 11/04/20 11/04/20 10:27 11:34 Temperature 97.6 F Pulse Rate 84 66 Respiratory 18 18 Rate Blood Pressure 138/76 105/70 O2 Sat by Pulse 96 99 Oximetry Medical Decision Making - Medical Decision Making Patient EKG, labs reviewed no acute findings. Patient is anticoagulated. This is chronic pain in nature. Patient does not have any cardiac etiology lab changes. Patient discharged in stable condition with instruction discussed. Patient's pain started yesterday. - Lab Data Result diagrams: 11/04/20 10:59 11/04/20 10:59 Lab Results 11/04/20 11/04/20 11/04/20 Range/Units 10:59 10:59 10:59 WBC 10.7 H (3.8-10.6) k/uL RBC 4.84 (3.80-5.40) m/uL Hgb 15.8 (11.4-16.0) gm/dL Hct 49.0 H (34.0-46.0) % MCV 101.2 H (80.0-100.0) fL MCH 32.7 (25.0-35.0) pg MCHC 32.3 (31.0-37.0) g/dL RDW 13.4 (11.5-15.5) % Plt Count 354 (150-450) k/uL MPV 7.9 Neutrophils % 58 % Lymphocytes % 29 % Monocytes % 8 % Eosinophils % 3 % Basophils % 1 % Neutrophils # 6.2 (1.3-7.7) k/uL Lymphocytes # 3.1 (1.0-4.8) k/uL Monocytes # 0.9 (0-1.0) k/uL Eosinophils # 0.4 (0-0.7) k/uL Basophils # 0.1 (0-0.2) k/uL Macrocytosis Slight PT 31.5 H (9.0-12.0) sec INR 3.3 H (<1.2) APTT 42.2 H (22.0-30.0) sec Sodium (137-145) mmol/L Potassium (3.5-5.1) mmol/L Chloride (98-107) mmol/L Carbon Dioxide (22-30) mmol/L Anion Gap mmol/L BUN (7-17) mg/dL Creatinine (0.52-1.04) mg/dL Est GFR (CKD-EPI)AfAm (>60 ml/min/1.73 sqM) Est GFR (CKD-EPI)NonAf (>60 ml/min/1.73 sqM) Glucose (74-99) mg/dL Calcium (8.4-10.2) mg/dL Total Bilirubin (0.2-1.3) mg/dL AST (14-36) U/L ALT (4-34) U/L Alkaline Phosphatase (38-126) U/L Troponin I (0.000-0.034) ng/mL Total Protein (6.3-8.2) g/dL Albumin (3.5-5.0) g/dL Amylase (30-110) U/L Lipase (23-300) U/L Urine Color Light Yellow Urine Appearance Clear (Clear) Urine pH 7.0 (5.0-8.0) Ur Specific [place] 1.005 (1.001-1.035) Urine Protein Negative (Negative) Urine Glucose (UA) Negative (Negative) Urine Ketones Negative (Negative) Urine Blood Negative (Negative) Urine Nitrite Negative (Negative) Urine Bilirubin Negative (Negative) Urine Urobilinogen <2.0 (<2.0) mg/dL Ur Leukocyte Esterase Negative (Negative) 11/04/20 11/04/20 Range/Units 10:59 10:59 WBC (3.8-10.6) k/uL RBC (3.80-5.40) m/uL Hgb (11.4-16.0) gm/dL Hct (34.0-46.0) % MCV (80.0-100.0) fL MCH (25.0-35.0) pg MCHC (31.0-37.0) g/dL RDW (11.5-15.5) % Plt Count (150-450) k/uL MPV Neutrophils % % Lymphocytes % % Monocytes % % Eosinophils % % Basophils % % Neutrophils # (1.3-7.7) k/uL Lymphocytes # (1.0-4.8) k/uL Monocytes # (0-1.0) k/uL Eosinophils # (0-0.7) k/uL Basophils # (0-0.2) k/uL Macrocytosis PT (9.0-12.0) sec INR (<1.2) APTT (22.0-30.0) sec Sodium 138 (137-145) mmol/L Potassium 4.2 (3.5-5.1) mmol/L Chloride 102 (98-107) mmol/L Carbon Dioxide 27 (22-30) mmol/L Anion Gap 9 mmol/L BUN 9 (7-17) mg/dL Creatinine 0.53 (0.52-1.04) mg/dL Est GFR (CKD-EPI)AfAm >90 (>60 ml/min/1.73 sqM) Est GFR (CKD-EPI)NonAf >90 (>60 ml/min/1.73 sqM) Glucose 88 (74-99) mg/dL Calcium 9.2 (8.4-10.2) mg/dL Total Bilirubin 0.8 (0.2-1.3) mg/dL AST 26 (14-36) U/L ALT 17 (4-34) U/L Alkaline Phosphatase 77 (38-126) U/L Troponin I <0.012 (0.000-0.034) ng/mL Total Protein 7.9 (6.3-8.2) g/dL Albumin 4.6 (3.5-5.0) g/dL Amylase 41 (30-110) U/L Lipase 31 (23-300) U/L Urine Color Urine Appearance (Clear) Urine pH (5.0-8.0) Ur Specific [place] (1.001-1.035) Urine Protein (Negative) Urine Glucose (UA) (Negative) Urine Ketones (Negative) Urine Blood (Negative) Urine Nitrite (Negative) Urine Bilirubin (Negative) Urine Urobilinogen (<2.0) mg/dL Ur Leukocyte Esterase (Negative) - EKG Data -: EKG Interpreted by Me EKG Comments: EKG performed at 10:43 normal sinus rhythm rate of 73 MN 152 QRS 106 QT/QTC 404/445 Disposition Clinical Impression: Chronic pain, Abdominal pain, Atypical chest pain Disposition: HOME SELF-CARE Condition: Stable Instructions (If sedation given, give patient instructions): Abdominal Pain (ED) Additional Instructions: Please return to the Emergency Department if symptoms worsen or any other concerns. Is patient prescribed a controlled substance at d/c from ED?: No Referrals: [facility] [Primary Care Provider] - 1-2 days Time of Disposition: 12:20
[2020-11-04 11:18] LABS: Appearance,Urine Clear (Clear); Basophils # (A) 0.1 k/uL (0-0.2); Basophils % (A) 1 %; Bilirubin,Urine Negative (Negative); Blood,Urine Negative (Negative); Color,Urine Light Yellow; Eosinophils # (A) 0.4 k/uL (0-0.7); Eosinophils % (A) 3 %; Glucose,Urine (UA) Negative (Negative); HGB 15.8 gm/dL (11.4-16.0); Ketones,Urine Negative (Negative); Leukocyte Esterase,Urine Negative (Negative); Lymphocytes # (A) 3.1 k/uL (1.0-4.8); Lymphocytes % (A) 29 %; MCH 32.7 pg (25.0-35.0); MCHC 32.3 g/dL (31.0-37.0); MCV 101.2 fL (80.0-100.0); Macrocytosis Slight; Mean Platelet Volume 7.9; Monocytes # (A) 0.9 k/uL (0-1.0); Monocytes % (A) 8 %; Neutrophils # (A) 6.2 k/uL (1.3-7.7); Neutrophils % (A) 58 %; Nitrite,Urine Negative (Negative); Platelet Count 354 k/uL (150-450); Protein,Urine Negative (Negative); RBC 4.84 m/uL (3.80-5.40); RDW 13.4 % (11.5-15.5); Specific Gravity,Urine 1.005 (1.001-1.035); Urobilinogen,Urine <2.0 mg/dL (<2.0); WBC 10.7 k/uL (3.8-10.6)
[2020-11-04 11:24] LABS: INR 3.3 (<1.2); Partial Thromboplastin Time 42.2 sec (22.0-30.0); Prothrombin Time 31.5 sec (9.0-12.0)
--- NOTE | 2020-11-04 11:39 | XR ---
EXAMINATION TYPE: XR chest 2V DATE OF EXAM: 11/04/2020 COMPARISON: 10/25/2020 HISTORY: 35-year-old female with and medial chest pain TECHNIQUE: AP and lateral views FINDINGS: Undulating scoliosis. Gibbus deformity rectal lumbar junction. Median sternotomy wires large lung vol umes. Some surgical material along the medial left upper lobe. Pectus carinatum. Nodule projecting at the retrosternal clear space likely nipple shadow. No kiran consolidation or pleural effusion seen. Plate and screw fixation along the proximal right humerus partially visualized. IMPRESSION: Thoracic deformity secondary to underlying scoliosis and gibbus deformity. Correlate for possible und erlying COPD. Some surgical material along the medial left upper lobe redemonstrated. Nodule along th e retrosternal clear space likely nipple shadow on the lateral view. No definite acute process.
[2020-11-04 11:43] LABS: ALT 17 U/L (4-34); AST 26 U/L (14-36); African American GFR (CKD) >90 (>60 ml/min/1.73 sqM); Albumin 4.6 g/dL (3.5-5.0); Alkaline Phosphatase 77 U/L (38-126); Amylase 41 U/L (30-110); Anion Gap 9 mmol/L; Blood Urea Nitrogen 9 mg/dL (7-17); Calcium 9.2 mg/dL (8.4-10.2); Carbon Dioxide 27 mmol/L (22-30); Chloride 102 mmol/L (98-107); Glucose 88 mg/dL (74-99); Lipase 31 U/L (23-300); Non-African American GFR(CKD) >90 (>60 ml/min/1.73 sqM); Sodium 138 mmol/L (137-145); Total Bilirubin 0.8 mg/dL (0.2-1.3); Total Protein 7.9 g/dL (6.3-8.2)
[2020-11-04 12:00] LABS: Potassium 4.2 mmol/L (3.5-5.1)
[2020-11-04 13:10] VITALS: BP 107/72; PULSE 67
== END 2020-11-04 13:10 | disposition home or self-care (01) ==
LOC: EC 10:24
DX: R07.89 Other chest pain (principal); R10.9 Unspecified abdominal pain; G89.29 Other chronic pain; F17.200 Nicotine dependence, unspecified, uncomplicated; I50.9 Heart failure, unspecified; M19.90 Unspecified osteoarthritis, unspecified site; Z79.01 Long term (current) use of anticoagulants; Z79.51 Long term (current) use of inhaled steroids; Z79.82 Long term (current) use of aspirin; Z86.73 Personal history of transient ischemic attack (TIA), and cerebral infarction without residual deficits; Z88.0 Allergy status to penicillin
CPT/HCPCS: 36415; 93005; 80053; 82150; 83690; 84484; 85025; 85610; 85730; 81003; 71046; 99285; 96374; 96375; J2405; J2270

== ENCOUNTER 2020-12-01 11:52 | Emergency (ER) | payer OTHER ==
[2020-12-01 12:59] VITALS: BP 130/76; PULSE 69; RESP 22; TEMP 98.1
--- NOTE | 2020-12-01 12:59 | ED ---
General Adult HPI - General Stated complaint: heaviness in chest Time Seen by Provider: 12/01/20 12:55 Source: patient - History of Present Illness Initial comments: Medical screening history and physical: 35-year-old female presenting with a chest heaviness over the past 3 days. No fever. She does report a baseline cough which is unchanged. Patient is currently on Coumadin history of DVT PE. Additionally she has history of Marfan syndrome. No associated vomiting or diaphoresis. Vital signs reviewed, normal heart rate, 96% on room air, blood pressure is stable. She is afebrile. No acute distress. Good air entry bi laterally. No lower extremity pain or swelling. - Related Data Home Medications Medication Instructions Recorded Confirmed Cholecalciferol [Vitamin D3 (25 5,000 unit PO DAILY 05/18/18 11/04/20 Mcg = 1000 Iu)] Ferrous Sulfate [Iron (65 MG 325 mg PO DAILY 06/14/18 11/04/20 Elemental)] Aspirin EC [Ecotrin Low Dose] 81 mg PO DAILY 07/22/19 11/04/20 Warfarin [Coumadin] 5 mg PO Q48H 07/25/19 11/04/20 Albuterol Sulfate [Proair Hfa] 1 - 2 puff INHALATION RT-Q6H PRN 07/02/20 11/04/20 Gabapentin 600 mg PO TID 07/02/20 11/04/20 HYDROcodone/APAP 7.5-325MG [[place] 1 tab PO BID PRN 07/02/20 11/04/20 7.5-325] Ondansetron [Zofran] 4 mg PO DAILY PRN 07/02/20 11/04/20 Warfarin Sodium 4 mg PO Q48H 07/02/20 11/04/20 Metoprolol Tartrate [Lopressor] 25 mg PO BID 07/31/20 11/04/20 Fluticasone Propionate [Flovent 1 puff INHALATION RT-DAILY 10/19/20 11/04/20 Hfa 220 mcg] Allergies Allergy/AdvReac Type Severity Reaction Status Date / Time chlordiazepoxide HCl Allergy SEE COMMENT Verified 11/04/20 11:58 [From Librium] Penicillins Allergy Rash/Hives Verified 11/04/20 11:58 ketorolac [From Toradol] AdvReac ANXIETY Verified 11/04/20 11:58 prochlorperazine edisylate AdvReac PANIC Verified 11/04/20 11:58 [From Compazine] ATTACK prochlorperazine maleate AdvReac PANIC Verified 11/04/20 11:58 [From Compazine] ATTACK Review of Systems ROS Statement: Those systems with pertinent positive or pertinent negative responses have been documented in the HPI. ROS Other: All systems not noted in ROS Statement are negative. Past Medical History Past Medical History: Heart Failure, CVA/TIA, Liver Disease, Neurologic Disorder, Osteoarthritis (OA), Pneumonia, Seizure Disorder Additional Past Medical History / Comment(s): Stroke with residual right-sided weakness 2017, TIAs, marfan's syndrome, ArnoldChiari malformation, spontaneous pneumothorax x 21, scoliosis and pectus excavatum secondary to Marfan's, chronic back pain, bilateral leg pain, gastric ulcers, sinus infections, STATED HAS POOR CIRCULATION, viral meningitis, HEP C. 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 spleenectomy 2018, L upper lobectomy d/t pneumothoraxs. Past Anesthesia/Blood Transfusion Reactions: No Reported Reaction Past Psychological History: Anxiety Smoking Status: Current every day smoker Past Alcohol Use History: None Reported Past Drug Use History: Marijuana - Past Family History Father Additional Family Medical History / Comment(s): Father is with history of AIDS. Mother Family Medical History: Diabetes Mellitus Additional Family Medical History / Comment(s): Mother at age 49 from liver cirrhosis secondary to alcohol abuse. Brother(s) Additional Family Medical History / Comment(s): Patient has one brother with no major medical problems. Course Vital Signs 12/01/20 12:57 Temperature 98.1 F Pulse Rate 69 Respiratory 22 Rate Blood Pressure 130/76 O2 Sat by Pulse 96 Oximetry Medical Decision Making - Medical Decision Making Upon reading the medical record this patient did leave AGAINST MEDICAL ADVICE. I was not present at the time this patient eloped. There is nursing documentation does indicate that she was informed that she was leaving AGAINST MEDICAL ADVICE. Disposition Clinical Impression: Chest pain Disposition: Left Against Medical Advice Condition: Undetermined Is patient prescribed a controlled substance at d/c from ED?: No Referrals: [facility] [Primary Care Provider] - 1-2 days
--- NOTE | 2020-12-01 13:23 | XR ---
EXAMINATION TYPE: XR chest 2V DATE OF EXAM: 12/01/2020 COMPARISON: 11/04/2020 HISTORY: 35-year-old female with chest pain TECHNIQUE: PA and lateral views FINDINGS: Focal levoconvex scoliosis along the upper thoracic spine and secondary thoracic cage deformity. Part ially visualized plate and screw fixation proximal right humerus. Median sternotomy wires. Heart mild ly enlarged. The gibbus deformity at the thoracolumbar junction. Stable line at the medial left apex from prior surgery. No consolidation or pleural effusion seen. IMPRESSION: 1. Thoracic cage deformity secondary to focal levoconvex scoliosis at the upper thoracic spine and a gibbus deformity at the thoracolumbar junction. 2. Previous median sternotomy. Mild cardiomegaly is unchanged. 3. Previous surgery involving the medial left upper lobe. No acute process seen.
== END 2020-12-01 15:00 | disposition left against medical advice (07) ==
LOC: EC 11:52
DX: R07.89 Other chest pain (principal); R05 Cough; I50.9 Heart failure, unspecified; G40.909 Epilepsy, unspecified, not intractable, without status epilepticus; M19.90 Unspecified osteoarthritis, unspecified site; Q87.40 Marfan syndrome, unspecified; F41.9 Anxiety disorder, unspecified; F17.200 Nicotine dependence, unspecified, uncomplicated; Z86.718 Personal history of other venous thrombosis and embolism; Z86.73 Personal history of transient ischemic attack (TIA), and cerebral infarction without residual deficits; Z79.01 Long term (current) use of anticoagulants; Z79.82 Long term (current) use of aspirin; Z79.51 Long term (current) use of inhaled steroids; Z95.1 Presence of aortocoronary bypass graft; Z95.2 Presence of prosthetic heart valve; Z88.0 Allergy status to penicillin
CPT/HCPCS: 71046; 93005; 99285

== ENCOUNTER 2021-02-06 13:08 | Emergency (ER) | payer OTHER ==
[2021-02-06 13:53] VITALS: RESP 16; TEMP 97.8
--- NOTE | 2021-02-06 13:57 | ED ---
Chest Pain HPI - General Chief Complaint: Chest Pain Stated Complaint: chest pain Time Seen by Provider: 02/06/21 13:39 Source: EMS Mode of arrival: EMS Limitations: no limitations - History of Present Illness Initial Comments: Arlin is a 35-year-old female with a history of Marfan's disease, history of DVT PE on Coumadin. Patient presents the ER today via ambulance for evaluation of chest pain. Patient reports that pain began at rest around 9 AM this morning. She states that she took a [place] and went to sleep. Patient reports that the pain is better about 90 minutes after taking Gl[place] but has persisted which prompted her to come to the ER for evaluation. She denies any cough, fevers chills nausea or vomiting. - Related Data Home Medications Medication Instructions Recorded Confirmed Cholecalciferol [Vitamin D3 (25 5,000 unit PO DAILY 05/18/18 11/04/20 Mcg = 1000 Iu)] Ferrous Sulfate [Iron (65 MG 325 mg PO DAILY 06/14/18 11/04/20 Elemental)] Aspirin EC [Ecotrin Low Dose] 81 mg PO DAILY 07/22/19 11/04/20 Warfarin [Coumadin] 5 mg PO Q48H 07/25/19 11/04/20 Albuterol Sulfate [Proair Hfa] 1 - 2 puff INHALATION RT-Q6H PRN 07/02/20 11/04/20 Gabapentin 600 mg PO TID 07/02/20 11/04/20 HYDROcodone/APAP 7.5-325MG [[place] 1 tab PO BID PRN 07/02/20 11/04/20 7.5-325] Ondansetron [Zofran] 4 mg PO DAILY PRN 07/02/20 11/04/20 Warfarin Sodium 4 mg PO Q48H 07/02/20 11/04/20 Metoprolol Tartrate [Lopressor] 25 mg PO BID 07/31/20 11/04/20 Fluticasone Propionate [Flovent 1 puff INHALATION RT-DAILY 10/19/20 11/04/20 Hfa 220 mcg] Allergies Allergy/AdvReac Type Severity Reaction Status Date / Time chlordiazepoxide HCl Allergy SEE COMMENT Verified 11/04/20 11:58 [From Librium] Penicillins Allergy Rash/Hives Verified 11/04/20 11:58 ketorolac [From Toradol] AdvReac ANXIETY Verified 11/04/20 11:58 prochlorperazine edisylate AdvReac PANIC Verified 11/04/20 11:58 [From Compazine] ATTACK prochlorperazine maleate AdvReac PANIC Verified 11/04/20 11:58 [From Compazine] ATTACK Review of Systems ROS Statement: Those systems with pertinent positive or pertinent negative responses have been documented in the HPI. ROS Other: All systems not noted in ROS Statement are negative. EKG Findings - EKG Comments: EKG Findings:: EKG was obtained at 1509, rate is 65 rhythm is sinus with PACs, WI prolonged at 186, cure as well as 8, QTC 455. There are T-wave inversions in V3 which were not present last month but have been present on previous EKGs. No ST elevations or depressions no evidence of acute ischemia or infarction. Past Medical History Past Medical History: Heart Failure, CVA/TIA, Liver Disease, Neurologic Disorder, Osteoarthritis (OA), Pneumonia, Seizure Disorder Additional Past Medical History / Comment(s): Stroke with residual right-sided weakness 2017, TIAs, marfan's syndrome, ArnoldChiari malformation, spontaneous pneumothorax x 21, scoliosis and pectus excavatum secondary to Marfan's, chronic back pain, bilateral leg pain, gastric ulcers, sinus infections, STATED HAS POOR CIRCULATION, viral meningitis, HEP C. 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 spleenectomy 2018, L upper lobectomy d/t pneumothoraxs. Past Anesthesia/Blood Transfusion Reactions: No Reported Reaction Past Psychological History: Anxiety Smoking Status: Current every day smoker Past Alcohol Use History: None Reported Past Drug Use History: Marijuana - Past Family History Father Additional Family Medical History / Comment(s): Father is with history of AIDS. Mother Family Medical History: Diabetes Mellitus Additional Family Medical History / Comment(s): Mother at age 49 from liver cirrhosis secondary to alcohol abuse. Brother(s) Additional Family Medical History / Comment(s): Patient has one brother with no major medical problems. General Exam - General Exam Comments Initial Comments: Physical Exam GENERAL: Chronically ill appearing, thin female HENT: Normocephalic, Atraumatic. EYES: Left lens subluxation - chronic Pupils 3mm PULMONARY: Unlabored respirations. No audible rales rhonchi or wheezing was noted. CARDIOVASCULAR: RRR Artificial valve murmur ABDOMEN: Soft and nontender with normal bowel sounds. SKIN: Sternotomy scar noted : Deferred NEUROLOGIC: Patient is sleepy but rouses to voice Patient is alert and oriented x3. Moving all extremities spontaneously MUSCULOSKELETAL: Normal extremities with adequate strength and full range of motion. No lower extremity swelling or edema. No calf tenderness. PSYCHIATRIC: Normal psychiatric evaluation. Limitations: no limitations Course Vital Signs 02/06/21 02/06/21 13:44 15:27 Temperature 97.8 F Pulse Rate 65 63 Respiratory 16 16 Rate Blood Pressure 110/69 109/61 O2 Sat by Pulse 96 100 Oximetry Chest Pain MDM - MDM The patient was seen and evaluated history is obtained from patient Patient with 5 hours of chest pain prior to arrival EKG was obtained and reviewed there are no acute changes on this EKG Labs were obtained and were at baseline for patient no elevated d-dimer, no elevated troponin Patient was found coming to the door of her room asking to be discharged I did discuss the patient that her troponin and d-dimer negative chest x-ray and EKG her baseline, patient reports she is feeling better and would prefer to be discharged home at this time Disposition Clinical Impression: Atypical chest pain Disposition: HOME SELF-CARE Condition: Stable Instructions (If sedation given, give patient instructions): Chest Pain (ED) Is patient prescribed a controlled substance at d/c from ED?: No Referrals: [facility] [Primary Care Provider] - 1-2 days
--- NOTE | 2021-02-06 14:51 | XR ---
EXAMINATION TYPE: XR chest 2V DATE OF EXAM: 02/06/2021 COMPARISON: 12/01/2020 TECHNIQUE: PA and lateral views submitted. HISTORY: Chest pain FINDINGS: The lungs are clear and there is no pneumothorax, pleural effusion, or focal pneumonia. There is a s coliotic curvature of the spine. Postsurgical change right humerus. No overt failure. Heart size norm al. Atherosclerotic change aorta. Prior postsurgical changes noted. IMPRESSION: 1. Stable prominent central interstitium could been the basis of chronic interstitial lung disease or bronchitis. Correlate clinically to exclude an interstitial pneumonitis..
[2021-02-06 15:29] VITALS: BP 109/61; PULSE 63
[2021-02-06 15:33] LABS: Basophils # (A) 0.2 k/uL (0-0.2); Basophils % (A) 1 %; Eosinophils # (A) 0.3 k/uL (0-0.7); Eosinophils % (A) 3 %; HCT 45.3 % (34.0-46.0); Lymphocytes # (A) 2.9 k/uL (1.0-4.8); Lymphocytes % (A) 23 %; MCH 33.3 pg (25.0-35.0); Mean Platelet Volume 8.2; Monocytes # (A) 0.6 k/uL (0-1.0); Monocytes % (A) 5 %; Neutrophils # (A) 8.6 k/uL (1.3-7.7); Neutrophils % (A) 68 %; Platelet Count 235 k/uL (150-450); RBC 4.49 m/uL (3.80-5.40); RDW 12.6 % (11.5-15.5); WBC 12.8 k/uL (3.8-10.6)
[2021-02-06 15:46] LABS: ALT 9 U/L (4-34); AST 21 U/L (14-36); African American GFR (CKD) >90 (>60 ml/min/1.73 sqM); Albumin 3.5 g/dL (3.5-5.0); Alkaline Phosphatase 66 U/L (38-126); Anion Gap 2 mmol/L; Blood Urea Nitrogen 6 mg/dL (7-17); Carbon Dioxide 30 mmol/L (22-30); Chloride 107 mmol/L (98-107); Glucose 83 mg/dL (74-99); Magnesium 1.8 mg/dL (1.6-2.3); Non-African American GFR(CKD) >90 (>60 ml/min/1.73 sqM); Potassium 3.9 mmol/L (3.5-5.1); Sodium 139 mmol/L (137-145); Total Bilirubin 0.4 mg/dL (0.2-1.3); Total Protein 6.2 g/dL (6.3-8.2)
[2021-02-06 15:54] LABS: D-Dimer 0.2 mg/L FEU (<0.60); INR 3.3 (<1.2); Prothrombin Time 31.7 sec (9.0-12.0)
== END 2021-02-06 17:45 | disposition home or self-care (01) ==
LOC: EC 13:08
DX: R07.89 Other chest pain (principal); F17.200 Nicotine dependence, unspecified, uncomplicated; M19.90 Unspecified osteoarthritis, unspecified site; I50.9 Heart failure, unspecified; Z79.82 Long term (current) use of aspirin; Z86.73 Personal history of transient ischemic attack (TIA), and cerebral infarction without residual deficits; Z88.0 Allergy status to penicillin; Z88.8 Allergy status to other drugs, medicaments and biological substances; Z95.2 Presence of prosthetic heart valve; Z95.1 Presence of aortocoronary bypass graft; Z79.899 Other long term (current) drug therapy; Z79.01 Long term (current) use of anticoagulants; Z86.718 Personal history of other venous thrombosis and embolism
CPT/HCPCS: 36415; 71046; 80053; 83735; 84484; 85025; 85379; 85610; 85730; 93005; 99285

== ENCOUNTER 2021-05-04 16:13 | Emergency (ER) | payer OTHER ==
[2021-05-04 16:49] VITALS: BP 112/64; PULSE 71; RESP 16; TEMP 97.9
--- NOTE | 2021-05-04 17:24 | ED ---
General Adult HPI - General Source: patient, RN notes reviewed Mode of arrival: wheelchair Limitations: no limitations - History of Present Illness -: month(s) (3) Location: right, lower extremity Radiation: non-radiation Severity scale (1-10): 4 Quality: aching Consistency: constant Improves with: none Worsens with: none Associated Symptoms: denies other symptoms Treatments Prior to Arrival: other (Hydrocodone) <Otf Kimbrough - Last Filed: 05/04/21 22:55> <Molly Casillas - Last Filed: 05/08/21 14:28> - General Chief complaint: Extremity Problem,Nontraumatic Stated complaint: toes turning black Time Seen by Provider: 05/04/21 17:06 - History of Present Illness Initial comments: 35-year-old white female patient presents to the emergency room with complaints of discoloration of her second toe of her right foot. Patient had reconstructive surgery of her right foot at age 18, but states for the past 3 months she's noticed discoloration of the second toe. The toe is also curling under her foot making it difficult to walk but she states that she will not go back and have foot surgery. Patient also complaining of a right breast lump that she found 3 weeks ago. 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 She is a pack-a-day smoker. (Otf Kimbrough) - Related Data Home Medications Medication Instructions Recorded Confirmed Warfarin [Coumadin] 5 mg PO Q48H 07/25/19 05/04/21 HYDROcodone/APAP 7.5-325MG [[place] 1 tab PO BID PRN 07/02/20 05/04/21 7.5-325] Warfarin Sodium 4 mg PO Q48H 07/02/20 05/04/21 Gabapentin 600 mg PO TID 05/04/21 05/04/21 Allergies Allergy/AdvReac Type Severity Reaction Status Date / Time chlordiazepoxide HCl Allergy SEE COMMENT Verified 05/04/21 17:34 [From Librium] Penicillins Allergy Rash/Hives Verified 05/04/21 17:34 ketorolac [From Toradol] AdvReac ANXIETY Verified 05/04/21 17:34 prochlorperazine edisylate AdvReac PANIC Verified 05/04/21 17:34 [From Compazine] ATTACK prochlorperazine maleate AdvReac PANIC Verified 05/04/21 17:34 [From Compazine] ATTACK Review of Systems ROS Other: All systems not noted in ROS Statement are negative. <Otf Kimbrough - Last Filed: 05/04/21 22:55> ROS Other: All systems not noted in ROS Statement are negative. <Molly Casillas - Last Filed: 05/08/21 14:28> ROS Statement: Those systems with pertinent positive or pertinent negative responses have been documented in the HPI. Past Medical History Past Medical History: Heart Failure, CVA/TIA, Liver Disease, Neurologic Disorder, Osteoarthritis (OA), Pneumonia, Seizure Disorder Additional Past Medical History / Comment(s): Stroke with residual right-sided weakness 2017, TIAs, marfan's syndrome, ArnoldChiari malformation, spontaneous pneumothorax x 21, scoliosis and pectus excavatum secondary to Marfan's, chronic back pain, bilateral leg pain, gastric ulcers, sinus infections, STATED HAS POOR CIRCULATION, viral meningitis, HEP C. 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 spleenectomy 2018, L upper lobectomy d/t pneumothoraxs. Past Anesthesia/Blood Transfusion Reactions: No Reported Reaction Past Psychological History: Anxiety Smoking Status: Current every day smoker Past Alcohol Use History: None Reported Past Drug Use History: Marijuana - Past Family History Father Additional Family Medical History / Comment(s): Father is with history of AIDS. Mother Family Medical History: Diabetes Mellitus Additional Family Medical History / Comment(s): Mother at age 49 from liver cirrhosis secondary to alcohol abuse. Brother(s) Additional Family Medical History / Comment(s): Patient has one brother with no major medical problems. <Otf Kimbrough - Last Filed: 05/04/21 22:55> General Exam Limitations: no limitations General appearance: alert, in no apparent distress Head exam: Present: atraumatic, normocephalic, normal inspection Eye exam: Present: normal appearance, EOMI. Absent: scleral icterus, conjunctival injection Pupils: Present: miosis ENT exam: Present: normal exam, mucous membranes moist Expanded Mouth exam: Present: tongue normal, tongue elevation. Absent: trismus Teeth exam: Present: dental caries Throat exam: normal inspection Neck exam: Present: normal inspection, full ROM. Absent: tenderness, meningismus, lymphadenopathy Respiratory exam: Present: normal lung sounds bilaterally, other (Severe scoliosis). Absent: respiratory distress, wheezes, rales, rhonchi, stridor, chest wall tenderness, accessory muscle use Cardiovascular Exam: Present: regular rate, normal rhythm, normal heart sounds. Absent: systolic murmur, diastolic murmur, rubs, gallop, clicks GI/Abdominal exam: Present: soft. Absent: distended, tenderness Right Foot/Toe exam: Present: tenderness (Second toe), ecchymosis (Second toe), dislocation. Absent: erythema (Second toe), amputation, puncture wound, foreign body, tenderness at base of 5th metatarsal, subungual hematoma Neurovascular tendon exam: Absent: foot drop Back exam: Present: other (Severe scoliosis). Absent: CVA tenderness (R), CVA tenderness (L), paraspinal tenderness, vertebral tenderness, rash noted Neurological exam: Present: alert, oriented X3, CN II-XII intact Psychiatric exam: Present: normal affect, normal mood. Absent: anxious Skin exam: Present: warm, dry, intact, normal color. Absent: rash, cyanosis, diaphoretic, erythema, petechiae, pallor, mottled <Otf Kimbrough - Last Filed: 05/04/21 22:55> Course Vital Signs 05/04/21 16:45 Temperature 97.9 F Pulse Rate 71 Respiratory 16 Rate Blood Pressure 112/64 O2 Sat by Pulse 98 Oximetry Medical Decision Making <Otf Kimbrough - Last Filed: 05/04/21 22:55> <Molly Casillas - Last Filed: 05/08/21 14:28> - Medical Decision Making Ultrasound left breast shows a 2.6 x 1.2 cm simple cyst, no evidence of solid breast mass. X-ray of the right foot shows a flexion deformity of the second toe no focal bone distraction seen. No fracture dislocation. Patient was advised to follow up with her primary care doctor and orthopedics for continuation care of her hammertoe which may require surgery. She was also advised to follow up with her primary care doctor regarding breast cyst. Case discussed with Dr. Casillas (Otf Kimbrough) I was available for consultation in the emergency department. The history and physical exam were done by the midlevel provider. I was consulted for this patients care. I reviewed the case with the midlevel provider and based on their presentation of the patient, I agree with the assessment, medical decision making and plan of care as documented. Chart was dictated using [employer] dictation software. Attempts were made to correct any dictation errors however some typographical errors may persist. Patient was seen during a national state of emergency due to the Covid-19 pandemic. (Molly Casillas) Disposition Is patient prescribed a controlled substance at d/c from ED?: No Time of Disposition: 19:26 <Otf Kimbrough - Last Filed: 05/04/21 22:55> <Molly Casillas - Last Filed: 05/08/21 14:28> Clinical Impression: Hammertoe of right foot, Breast cyst Disposition: HOME SELF-CARE Condition: Good Additional Instructions: Follow-up with podiatry for your hammertoe. Follow-up with the primary care doctor regarding the cyst to the right breast return to the emergency room with any new or worsening symptoms. Referrals: [facility] [Primary Care Provider] - 1-2 days
--- NOTE | 2021-05-04 18:11 | XR ---
EXAMINATION TYPE: XR foot complete RT DATE OF EXAM: 05/04/2021 COMPARISON: 03/02/2018 HISTORY: Pain TECHNIQUE: 3 views FINDINGS: There are plates and screws fusing the first MP joint. Metatarsals are intact. I see no fra cture nor dislocation. The tarsal bones are intact. There is some flexion deformity of the second toe . I see no focal bone destruction. IMPRESSION: Flexion deformity of the second toe is a change compared to old exam. No focal bone destr uction seen.
--- NOTE | 2021-05-04 18:48 | USB ---
EXAMINATION TYPE: US breast limited RT DATE OF EXAM: 05/04/2021 COMPARISON: NONE CLINICAL HISTORY: mass. Patient feels palpable lump right breast Cyst visualized at patient's palpable area, 6:00 zone A measuring 1.8 x 1.2 x 2.6 cm IMPRESSION there is 2.6 x 1.2 cm essentially simple cyst in the sixth heart position in the area of c oncern that was the palpable mass. No evidence of solid breast mass. BI-RADS category benign:
== END 2021-05-04 20:05 | disposition home or self-care (01) ==
LOC: EC 16:13
DX: S90.121A Contusion of right lesser toe(s) without damage to nail, initial encounter (principal); M20.41 Other hammer toe(s) (acquired), right foot; N63.10 Unspecified lump in the right breast, unspecified quadrant; G40.909 Epilepsy, unspecified, not intractable, without status epilepticus; I50.9 Heart failure, unspecified; F17.200 Nicotine dependence, unspecified, uncomplicated; Z86.73 Personal history of transient ischemic attack (TIA), and cerebral infarction without residual deficits; Z79.899 Other long term (current) drug therapy; X58.XXXA Exposure to other specified factors, initial encounter
CPT/HCPCS: 99284

== ENCOUNTER 2021-07-30 08:34 | Emergency (ER) | payer OTHER ==
[2021-07-30 08:45] VITALS: RESP 18; TEMP 97.2
[2021-07-30] MEDS ORDERED: HYDROmorphone 1 MG/ML 1 ML SYRINGE IVP STA ×2 (09:04→11:07)
[2021-07-30 09:26] LABS: Basophils # (A) 0.1 k/uL (0-0.2); Basophils % (A) 2 %; Eosinophils # (A) 0.6 k/uL (0-0.7); Eosinophils % (A) 6 %; HCT 48.4 % (34.0-46.0); HGB 15.2 gm/dL (11.4-16.0); Lymphocytes # (A) 1.8 k/uL (1.0-4.8); Lymphocytes % (A) 19 %; MCH 32.4 pg (25.0-35.0); MCHC 31.4 g/dL (31.0-37.0); MCV 103.1 fL (80.0-100.0); Macrocytosis Slight; Mean Platelet Volume 7.9; Monocytes # (A) 0.5 k/uL (0-1.0); Monocytes % (A) 5 %; Neutrophils # (A) 6.3 k/uL (1.3-7.7); Neutrophils % (A) 67 %; Platelet Count 323 k/uL (150-450); RBC 4.69 m/uL (3.80-5.40); RDW 12.5 % (11.5-15.5); WBC 9.4 k/uL (3.8-10.6)
--- NOTE | 2021-07-30 09:32 | ED ---
General Adult HPI - General Chief complaint: Chest Pain Stated complaint: Chest pain Time Seen by Provider: 07/30/21 08:39 Source: patient, EMS, RN notes reviewed, old records reviewed Mode of arrival: EMS Limitations: no limitations - History of Present Illness Initial comments: [age]-year-old female with history of Marfan's disease history of aortic dis section history of valvular heart disease presenting for evaluation of central chest pain. Pain was nonradiating. Associated with some nausea. She states that she has been buying Suboxone on the street because she has not been able to get enrolled in the Suboxone clinic. She states that her primary care physician will not prescribe her any pain medication despite the fact that she has been previously on hospice care. She does have remote history of heroin abuse but states she is not currently using heroin. She is planning to have an evaluation in the next week regarding Suboxone management. - Related Data Home Medications Medication Instructions Recorded Confirmed Warfarin [Coumadin] 5 mg PO HS 07/25/19 07/30/21 Metoprolol Tartrate [Lopressor] 25 mg PO HS 07/30/21 07/30/21 Ondansetron [Zofran] 4 mg PO DAILY PRN 07/30/21 07/30/21 Allergies Allergy/AdvReac Type Severity Reaction Status Date / Time chlordiazepoxide HCl Allergy SEE COMMENT Verified 07/30/21 10:37 [From Librium] Penicillins Allergy Rash/Hives Verified 07/30/21 10:37 ketorolac [From Toradol] AdvReac ANXIETY Verified 07/30/21 10:37 morphine AdvReac Unknown Verified 07/30/21 10:37 prochlorperazine edisylate AdvReac PANIC Verified 07/30/21 10:37 [From Compazine] ATTACK prochlorperazine maleate AdvReac PANIC Verified 07/30/21 10:37 [From Compazine] ATTACK Review of Systems ROS Statement: Those systems with pertinent positive or pertinent negative responses have been documented in the HPI. ROS Other: All systems not noted in ROS Statement are negative. Past Medical History Past Medical History: Heart Failure, CVA/TIA, Liver Disease, Neurologic Disorder, Osteoarthritis (OA), Pneumonia, Seizure Disorder Additional Past Medical History / Comment(s): Stroke with residual right-sided weakness 2017, TIAs, marfan's syndrome, ArnoldChiari malformation, spontaneous pneumothorax x , scoliosis and pectus excavatum secondary to Marfan's, chronic back pain, bilateral leg pain, gastric ulcers, sinus infections, STATED HAS POOR CIRCULATION, viral meningitis, HEP C. History of Any Multi-Drug Resistant Organisms: MRSA Date of last positivie culture/infection: 05/05/2010 MDRO Source:: back per patient Past Surgical History: Cardiac Valve Replacement, Coronary Bypass/CABG, Joint Replacement Additional Past Surgical History / Comment(s): right foot corrective surgery, R shoulder surgery following injury, CABG x4 vessel, aortic root graft, aortic/mi tral valve replaced as child (2 separate surgeries last 10 years old), tiffani lens removed. spleenectomy 2018, L upper lobectomy d/t pneumothoraxs. Past Anesthesia/Blood Transfusion Reactions: No Reported Reaction Past Psychological History: Anxiety Smoking Status: Current every day smoker Past Alcohol Use History: None Reported Past Drug Use History: Marijuana - Past Family History Father Additional Family Medical History / Comment(s): Father is with history of AIDS. Mother Family Medical History: Diabetes Mellitus Additional Family Medical History / Comment(s): Mother at age 49 from liver cirrhosis secondary to alcohol abuse. Brother(s) Additional Family Medical History / Comment(s): Patient has one brother with no major medical problems. General Exam Limitations: no limitations General appearance: alert, in no apparent distress Head exam: Present: atraumatic, normocephalic Eye exam: Present: normal appearance, PERRL ENT exam: Present: normal exam Neck exam: Absent: tenderness, meningismus Respiratory exam: Present: wheezes. Absent: respiratory distress Cardiovascular Exam: Present: regular rate, normal rhythm, systolic murmur GI/Abdominal exam: Present: soft. Absent: distended, tenderness, guarding Extremities exam: Absent: pedal edema Neurological exam: Present: alert, oriented X3 Psychiatric exam: Present: normal affect, normal mood Skin exam: Present: warm, dry, intact Course Vital Signs 07/30/21 07/30/21 08:43 10:03 Temperature 97.2 F L Pulse Rate 86 67 Respiratory 18 18 Rate Blood Pressure 122/69 108/89 O2 Sat by Pulse 92 L 99 Oximetry EKG Findings - EKG Comments: EKG Findings:: EKG: Normal sinus rhythm, possible atrial enlargement on the left, rightward axis, rate of 63, FL interval 180, QRS duration 114, no ST segment elevation. Medical Decision Making - Medical Decision Making 36-year-old female presenting for evaluation of chest pain. History of coronary artery disease status post bypass graft. Patient has significant comorbidities including Marfan's and aortic dissection. Previously had been on hospice and is obtaining Suboxone on the street. Patient did request laboratory evaluation although she admits that she would not want any intervention. She has a normal CBC, subtherapeutic INR 1.3, normal electrolytes. Her troponin is 0.2 which is elevated. I did inform the patient of this and the initial plan was to admit. I discussed the case with Dr. Martinez agrees that there would be no intervention and would not insulted. Ultimately the patient decided to be discharged home in the setting of no further dressing medical treatment for this patient. She does appear comfortable with stable vital signs. She is informed that there is a good possibility that this may worsen and even given this understanding she does not want any aggressive measures. - Lab Data Result diagrams: 07/30/21 09:11 07/30/21 09:11 Lab Results 07/30/21 07/30/21 07/30/21 Range/Units 09:11 09:11 09:11 WBC 9.4 (3.8-10.6) k/uL RBC 4.69 (3.80-5.40) m/uL Hgb 15.2 (11.4-16.0) gm/dL Hct 48.4 H (34.0-46.0) % MCV 103.1 H (80.0-100.0) fL MCH 32.4 (25.0-35.0) pg MCHC 31.4 (31.0-37.0) g/dL RDW 12.5 (11.5-15.5) % Plt Count 323 (150-450) k/uL MPV 7.9 Neutrophils % 67 % Lymphocytes % 19 % Monocytes % 5 % Eosinophils % 6 % Basophils % 2 % Neutrophils # 6.3 (1.3-7.7) k/uL Lymphocytes # 1.8 (1.0-4.8) k/uL Monocytes # 0.5 (0-1.0) k/uL Eosinophils # 0.6 (0-0.7) k/uL Basophils # 0.1 (0-0.2) k/uL Macrocytosis Slight PT 13.6 H (9.0-12.0) sec INR 1.3 H (<1.2) APTT 29.5 (22.0-30.0) sec Sodium 136 L (137-145) mmol/L Potassium 4.4 (3.5-5.1) mmol/L Chloride 106 (98-107) mmol/L Carbon Dioxide 23 (22-30) mmol/L Anion Gap 7 mmol/L BUN 15 (7-17) mg/dL Creatinine 0.54 (0.52-1.04) mg/dL Est GFR (CKD-EPI)AfAm >90 (>60 ml/min/1.73 sqM) Est GFR (CKD-EPI)NonAf >90 (>60 ml/min/1.73 sqM) Glucose 100 H (74-99) mg/dL Calcium 8.7 (8.4-10.2) mg/dL Magnesium 1.8 (1.6-2.3) mg/dL Total Bilirubin 0.3 (0.2-1.3) mg/dL AST 25 (14-36) U/L ALT 12 (4-34) U/L Alkaline Phosphatase 71 (38-126) U/L Troponin I (0.000-0.034) ng/mL Total Protein 7.5 (6.3-8.2) g/dL Albumin 3.9 (3.5-5.0) g/dL 07/30/21 Range/Units 09:11 WBC (3.8-10.6) k/uL RBC (3.80-5.40) m/uL Hgb (11.4-16.0) gm/dL Hct (34.0-46.0) % MCV (80.0-100.0) fL MCH (25.0-35.0) pg MCHC (31.0-37.0) g/dL RDW (11.5-15.5) % Plt Count (150-450) k/uL MPV Neutrophils % % Lymphocytes % % Monocytes % % Eosinophils % % Basophils % % Neutrophils # (1.3-7.7) k/uL Lymphocytes # (1.0-4.8) k/uL Monocytes # (0-1.0) k/uL Eosinophils # (0-0.7) k/uL Basophils # (0-0.2) k/uL Macrocytosis PT (9.0-12.0) sec INR (<1.2) APTT (22.0-30.0) sec Sodium (137-145) mmol/L Potassium (3.5-5.1) mmol/L Chloride (98-107) mmol/L Carbon Dioxide (22-30) mmol/L Anion Gap mmol/L BUN (7-17) mg/dL Creatinine (0.52-1.04) mg/dL Est GFR (CKD-EPI)AfAm (>60 ml/min/1.73 sqM) Est GFR (CKD-EPI)NonAf (>60 ml/min/1.73 sqM) Glucose (74-99) mg/dL Calcium (8.4-10.2) mg/dL Magnesium (1.6-2.3) mg/dL Total Bilirubin (0.2-1.3) mg/dL AST (14-36) U/L ALT (4-34) U/L Alkaline Phosphatase (38-126) U/L Troponin I 0.203 H* (0.000-0.034) ng/mL Total Protein (6.3-8.2) g/dL Albumin (3.5-5.0) g/dL Disposition Clinical Impression: Chest pain Disposition: HOME SELF-CARE Condition: Poor Instructions (If sedation given, give patient instructions): Chest Pain (ED) Is patient prescribed a controlled substance at d/c from ED?: No Referrals: [facility] [Primary Care Provider] - 1-2 days Time of Disposition: 11:30
--- NOTE | 2021-07-30 09:38 | XR ---
EXAMINATION TYPE: XR chest 2V DATE OF EXAM: 07/30/2021 COMPARISON: 02/06/2021 HISTORY: 36-year-old female with chest pain TECHNIQUE: Frontal and lateral views FINDINGS: Plate and screw fixation proximal right humerus. Median sternotomy wires are present. Nodules were li mike to be bilateral nipple shadows. Gibbus deformity thoracic lumbar junction. Heart remains enlarge d. Hyperinflation. Extensive scoliotic deformity redemonstrated. Stable blunting of the posterior cos tophrenic angle probably relating to pleural parenchymal scarring. IMPRESSION: Similar cardiomegaly, COPD, suspected basilar pleural parenchymal scarring, scoliosis, and gibbus def ormity. No acute change.
[2021-07-30 09:44] LABS: ALT 12 U/L (4-34); AST 25 U/L (14-36); African American GFR (CKD) >90 (>60 ml/min/1.73 sqM); Albumin 3.9 g/dL (3.5-5.0); Alkaline Phosphatase 71 U/L (38-126); Anion Gap 7 mmol/L; Blood Urea Nitrogen 15 mg/dL (7-17); Calcium 8.7 mg/dL (8.4-10.2); Carbon Dioxide 23 mmol/L (22-30); Chloride 106 mmol/L (98-107); Glucose 100 mg/dL (74-99); Magnesium 1.8 mg/dL (1.6-2.3); Non-African American GFR(CKD) >90 (>60 ml/min/1.73 sqM); Potassium 4.4 mmol/L (3.5-5.1); Sodium 136 mmol/L (137-145); Total Bilirubin 0.3 mg/dL (0.2-1.3); Total Protein 7.5 g/dL (6.3-8.2)
[2021-07-30 09:56] LABS: INR 1.3 (<1.2); Partial Thromboplastin Time 29.5 sec (22.0-30.0); Prothrombin Time 13.6 sec (9.0-12.0)
[2021-07-30] MEDS ORDERED: HEPARIN SODIUM 1,000 UN/ML (10ML VL) IV ONE (10:47)
[2021-07-30] MEDS ORDERED: HEPARIN SODIUM 1,000 UN/ML (10ML VL) IV PRN (10:47)
[2021-07-30] MEDS ORDERED: HEPARIN SOD,PORK IN 0.45% NACL 25,000 UNIT in 0.45% NACL 1 250ML.BAG IV SCH (11:00)
[2021-07-30 11:42] VITALS: BP 119/72; PULSE 69
== END 2021-07-30 12:07 | disposition home or self-care (01) ==
LOC: EC 08:34
DX: R07.89 Other chest pain (principal); I50.9 Heart failure, unspecified; F17.200 Nicotine dependence, unspecified, uncomplicated; Z88.0 Allergy status to penicillin; Z88.5 Allergy status to narcotic agent; Z88.8 Allergy status to other drugs, medicaments and biological substances; Z86.73 Personal history of transient ischemic attack (TIA), and cerebral infarction without residual deficits; Z79.01 Long term (current) use of anticoagulants; Z95.4 Presence of other heart-valve replacement
CPT/HCPCS: 36415; 93005; 80053; 83735; 84484; 85025; 85610; 85730; 71046; 96374; 96376; 99285; J1170

== ENCOUNTER 2021-07-31 13:25 | Emergency (ER) | payer OTHER ==
[2021-07-31 13:48] VITALS: BP 109/60; PULSE 73; RESP 18
--- NOTE | 2021-07-31 14:07 | ED ---
Chest Pain HPI - General Chief Complaint: Chest Pain Stated Complaint: Chest pain Time Seen by Provider: 07/31/21 13:44 Source: patient, EMS Mode of arrival: EMS Limitations: no limitations - History of Present Illness Initial Comments: This 36-year-old female presents with a complaint of chest pain. She states that it came on yesterday morning. It was gradual in onset. It is located in the midsternal region. She describes as a pressure and sharp type of pain. It is nonradiating. She denies any shortness of breath or diaphoresis or palpitations. She does have a slight cough but this is consistent with her regular smoker's cough. This is unchanged. She was seen in the emergency department yesterday for similar. She did not want to stay for elevated workup despite an elevated troponin. She does have a long significant history. She has a history of Marfan syndrome. She also has a history of multiple cardiac and valvular surgery. She states that she has had 4 surgeries on her heart. She has multiple comorbidities for her age. She denies any leg pain or swelling. No other complaints or modifying factors. She apparently was u tilizing Suboxone off the street but ran out of this couple of days ago. - Related Data Home Medications Medication Instructions Recorded Confirmed Warfarin [Coumadin] 5 mg PO HS 07/25/19 07/30/21 Metoprolol Tartrate [Lopressor] 25 mg PO HS 07/30/21 07/30/21 Ondansetron [Zofran] 4 mg PO DAILY PRN 07/30/21 07/30/21 Allergies Allergy/AdvReac Type Severity Reaction Status Date / Time chlordiazepoxide HCl Allergy SEE COMMENT Verified 07/30/21 10:37 [From Librium] Penicillins Allergy Rash/Hives Verified 07/30/21 10:37 ketorolac [From Toradol] AdvReac ANXIETY Verified 07/30/21 10:37 morphine AdvReac Unknown Verified 07/30/21 10:37 prochlorperazine edisylate AdvReac PANIC Verified 07/30/21 10:37 [From Compazine] ATTACK prochlorperazine maleate AdvReac PANIC Verified 07/30/21 10:37 [From Compazine] ATTACK Review of Systems ROS Statement: Those systems with pertinent positive or pertinent negative responses have been documented in the HPI. ROS Other: All systems not noted in ROS Statement are negative. Past Medical History Past Medical History: Heart Failure, CVA/TIA, Liver Disease, Neurologic Disorder, Osteoarthritis (OA), Pneumonia, Seizure Disorder Additional Past Medical History / Comment(s): Stroke with residual right-sided weakness 2017, TIAs, marfan's syndrome, ArnoldChiari malformation, spontaneous pneumothorax x 21, scoliosis and pectus excavatum secondary to Marfan's, chronic back pain, bilateral leg pain, gastric ulcers, sinus infections, STATED HAS POOR CIRCULATION, viral meningitis, HEP C. 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 spleenectomy 2018, L upper lobectomy d/t pneumothoraxs. Past Anesthesia/Blood Transfusion Reactions: No Reported Reaction Past Psychological History: Anxiety Smoking Status: Current every day smoker Past Alcohol Use History: None Reported Past Drug Use History: Marijuana - Past Family History Father Additional Family Medical History / Comment(s): Father is with history of AIDS. Mother Family Medical History: Diabetes Mellitus Additional Family Medical History / Comment(s): Mother at age 49 from liver cirrhosis secondary to alcohol abuse. Brother(s) Additional Family Medical History / Comment(s): Patient has one brother with no major medical problems. General Exam - General Exam Comments Initial Comments: GENERAL: The patient appears malnourished but well hydrated. VITAL SIGNS: Heart rate, blood pressure, respiratory rate reviewed as recorded in nurse's notes. EYES: Pupils are round and reactive. Extraocular movements are intact. No conjunctival / lid redness or swelling. ENT: No external evidence of injury, swelling, or ecchymosis. Airway is patent. Throat is clear. NECK: Nontender. No swelling or evidence of injury. No subcutaneous emphysema. Trachea is midline. No thyroid mass. HEART: Regular rate and rhythm. Good peripheral pulses. LUNGS/CHEST: Breath sounds clear and equal bilaterally. No rales, rhonchi, or wheezes. No ecchymosis, subcutaneous emphysema, or tenderness. ABDOMEN: Abdomen soft without tenderness. No palpable masses or organomegaly. No peritoneal signs. No abdominal wall swelling or ecchymosis. EXTREMITIES: No extremity tenderness. Normal muscle tone and function. No thoracolumbar tenderness. NEUROLOGIC: Sensation is grossly intact. Cranial nerve exam reveals face is symmetrical, tongue is midline, speech is clear. SKIN: No abrasions or ecchymosis is noted. No induration or masses noted. PSYCHIATRIC: Alert and oriented. Appropriate behavior and judgment. Limitations: no limitations Course Vital Signs 07/31/21 13:39 Pulse Rate 73 Respiratory 18 Rate Blood Pressure 109/60 O2 Sat by Pulse 98 Oximetry Chest Pain MDM - MDM The patient was seen and examined. All diagnostics were reviewed. EKG shows a normal sinus rhythm at a rate of 72. There is some T-wave inversions in V1 and V2. There is no ST elevation. The DE intervals 162, QRS duration is 108, and the QTC intervals 451. The initial laboratory is ordered and a CTA of the chest also is ordered. Old records are reviewed. It appears as though her troponin was elevated yesterday. Shortly after me evaluating the patient the nurse calls me and let me know that the patient left AGAINST MEDICAL ADVICE. She leaves prior to obtaining any testing for discharge instructions. The exact reason why he is not definitively determined. Nurse relates that it may be related to her not receiving any narcotic medications although the patient did not even asked me for any narcotic medications and did not appear to be in any distress. Disposition Clinical Impression: Chest pain, Marfan syndrome Disposition: Left Against Medical Advice Condition: Fair Is patient prescribed a controlled substance at d/c from ED?: No Referrals: [facility] [Primary Care Provider] - 1-2 days Time of Disposition: 14:41
[2021-07-31] MEDS: NITROGLYCERIN OINT 1 INCH/GM PACKET TOPICAL STA ×2 (14:13)
[2021-07-31 14:35] LABS: Basophils # (A) 0.2 k/uL (0-0.2); Basophils % (A) 2 %; Eosinophils # (A) 0.3 k/uL (0-0.7); Eosinophils % (A) 3 %; HCT 45.9 % (34.0-46.0); HGB 15.6 gm/dL (11.4-16.0); Lymphocytes # (A) 2.3 k/uL (1.0-4.8); Lymphocytes % (A) 22 %; MCH 33.7 pg (25.0-35.0); MCV 99.1 fL (80.0-100.0); Mean Platelet Volume 7.8; Monocytes # (A) 0.5 k/uL (0-1.0); Monocytes % (A) 5 %; Neutrophils # (A) 7.1 k/uL (1.3-7.7); Neutrophils % (A) 67 %; Platelet Count 370 k/uL (150-450); RBC 4.63 m/uL (3.80-5.40); RDW 13.3 % (11.5-15.5); WBC 10.6 k/uL (3.8-10.6)
[2021-07-31 14:44] LABS: HCG,Qualitative Serum Not Detected
[2021-07-31 14:55] LABS: ALT 11 U/L (4-34); AST 27 U/L (14-36); African American GFR (CKD) >90 (>60 ml/min/1.73 sqM); Albumin 4.2 g/dL (3.5-5.0); Alkaline Phosphatase 83 U/L (38-126); Anion Gap 6 mmol/L; Blood Urea Nitrogen 18 mg/dL (7-17); Calcium 9.3 mg/dL (8.4-10.2); Carbon Dioxide 27 mmol/L (22-30); Chloride 102 mmol/L (98-107); Glucose 83 mg/dL (74-99); Magnesium 2.1 mg/dL (1.6-2.3); Non-African American GFR(CKD) >90 (>60 ml/min/1.73 sqM); Potassium 4.7 mmol/L (3.5-5.1); Sodium 135 mmol/L (137-145); Total Bilirubin 0.4 mg/dL (0.2-1.3); Total Protein 7.9 g/dL (6.3-8.2)
[2021-07-31 14:56] LABS: INR 1.5 (<1.2); Prothrombin Time 14.7 sec (9.0-12.0)
== END 2021-07-31 14:30 | disposition left against medical advice (07) ==
LOC: EC 13:25
DX: R07.89 Other chest pain (principal); Q87.40 Marfan syndrome, unspecified; I50.9 Heart failure, unspecified; F17.200 Nicotine dependence, unspecified, uncomplicated; Z86.73 Personal history of transient ischemic attack (TIA), and cerebral infarction without residual deficits; Z79.01 Long term (current) use of anticoagulants
CPT/HCPCS: 36415; 80053; 83735; 83880; 84484; 84703; 85025; 85610; 85730; 93005; 99285

== ENCOUNTER 2021-08-15 06:55 | Emergency (ER) | payer OTHER ==
[2021-08-15 07:03] VITALS: BP 123/66; PULSE 70; RESP 17; TEMP 97.8
--- NOTE | 2021-08-15 07:43 | ED ---
General Adult HPI - General Chief complaint: Chest Pain Stated complaint: Chest Pain Time Seen by Provider: 08/15/21 07:05 Source: patient, EMS, RN notes reviewed Mode of arrival: EMS Limitations: no limitations - History of Present Illness Initial comments: Patient is a pleasant 36-year-old female presenting to the emergency Department with chronic chest pain. Patient states symptoms that bring her here today been present for the past 3 years. Patient does have history of heart valve and aorta problems. No change in symptoms. Patient states she is only here for pain medication.Please use medication as discussed. Please follow-up with family doctor in the next 2 days of symptoms have not improved. Please return to emergency room if the symptoms increase or worsen or for any other concerns. Upset because her provider will no longer give her narcotics. Discomfort is steady and chronic. No reported radiation. No dyspnea. Patient does also have history of pneumothorax. No leg pain or leg swelling. No vomiting or diaphoresis. - Related Data Home Medications Medication Instructions Recorded Confirmed Warfarin [Coumadin] 5 mg PO HS 07/25/19 07/30/21 Metoprolol Tartrate [Lopressor] 25 mg PO HS 07/30/21 07/30/21 Ondansetron [Zofran] 4 mg PO DAILY PRN 07/30/21 07/30/21 Allergies Allergy/AdvReac Type Severity Reaction Status Date / Time chlordiazepoxide HCl Allergy SEE COMMENT Verified 07/30/21 10:37 [From Librium] Penicillins Allergy Rash/Hives Verified 07/30/21 10:37 ketorolac [From Toradol] AdvReac ANXIETY Verified 07/30/21 10:37 morphine AdvReac Unknown Verified 07/30/21 10:37 prochlorperazine edisylate AdvReac PANIC Verified 07/30/21 10:37 [From Compazine] ATTACK prochlorperazine maleate AdvReac PANIC Verified 07/30/21 10:37 [From Compazine] ATTACK Review of Systems ROS Statement: Those systems with pertinent positive or pertinent negative responses have been documented in the HPI. ROS Other: All systems not noted in ROS Statement are negative. Constitutional: Denies: fever Eyes: Denies: eye pain ENT: Denies: ear pain Respiratory: Denies: cough, dyspnea Cardiovascular: Reports: chest pain Endocrine: Denies: fatigue Gastrointestinal: Denies: abdominal pain Genitourinary: Denies: dysuria Skin: Denies: rash Neurological: Denies: weakness Past Medical History Past Medical History: Heart Failure, CVA/TIA, Liver Disease, Neurologic Disorder, Osteoarthritis (OA), Pneumonia, Seizure Disorder Additional Past Medical History / Comment(s): Stroke with residual right-sided weakness 2017, TIAs, marfan's syndrome, ArnoldChiari malformation, spontaneous pneumothorax x 21, scoliosis and pectus excavatum secondary to Marfan's, chronic back pain, bilateral leg pain, gastric ulcers, sinus infections, STATED HAS POOR CIRCULATION, viral meningitis, HEP C. 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 spleenectomy 2018, L upper lobectomy d/t pneumothoraxs. Past Anesthesia/Blood Transfusion Reactions: No Reported Reaction Past Psychological History: Anxiety Smoking Status: Current every day smoker Past Alcohol Use History: None Reported Past Drug Use History: Heroin, Marijuana - Past Family History Father Additional Family Medical History / Comment(s): Father is with history of AIDS. Mother Family Medical History: Diabetes Mellitus Additional Family Medical History / Comment(s): Mother at age 49 from liver cirrhosis secondary to alcohol abuse. Brother(s) Additional Family Medical History / Comment(s): Patient has one brother with no major medical problems. General Exam Limitations: no limitations General appearance: alert, in no apparent distress, other (Marfan-like morphology) Head exam: Present: normocephalic Eye exam: Present: normal appearance Neck exam: Present: normal inspection Respiratory exam: Present: normal lung sounds bilaterally Cardiovascular Exam: Present: regular rate, normal rhythm, systolic murmur Expanded Peripheral pulses: 2+: Radial (R), Radial (L), Posterior Tibialis (R), Posterior Tibialis (L) GI/Abdominal exam: Present: soft. Absent: tenderness Extremities exam: Present: normal inspection Neurological exam: Present: alert Psychiatric exam: Present: normal affect, normal mood Skin exam: Present: normal color Course Vital Signs 08/15/21 06:57 Temperature 97.8 F Pulse Rate 70 Respiratory 17 Rate Blood Pressure 123/66 O2 Sat by Pulse 100 Oximetry EKG Findings - EKG Comments: EKG Findings:: Normal sinus rhythm with a rate of 69. IL 156. QRS 104. QT 434. QTC 465. Right axis. High QRS complex. Nonspecific ST-T. Medical Decision Making - Medical Decision Making Patient only wants narcotic medication and refuses further workup. Patient will leave AGAINST MEDICAL ADVICE. Patient is advised to have further evaluation including imaging and blood work however refuses. Disposition Clinical Impression: Chest pain, Chronic pain Disposition: Left Against Medical Advice Instructions (If sedation given, give patient instructions): Chest Pain (ED) Additional Instructions: You're leaving AGAINST MEDICAL ADVICE. It is recommended that you have further evaluation regarding her symptoms. Please do follow-up with your primary care physician as soon as possible, no later than tomorrow. Return for worsening or change in symptoms, or other concerns. Is patient prescribed a controlled substance at d/c from ED?: No Referrals: [facility] [Primary Care Provider] - 1-2 days Time of Disposition: 07:42
== END 2021-08-15 07:47 | disposition left against medical advice (07) ==
LOC: EC 06:55
DX: R07.89 Other chest pain (principal); G89.29 Other chronic pain; I50.9 Heart failure, unspecified; F17.200 Nicotine dependence, unspecified, uncomplicated; Z86.73 Personal history of transient ischemic attack (TIA), and cerebral infarction without residual deficits; Z88.8 Allergy status to other drugs, medicaments and biological substances; Z88.0 Allergy status to penicillin; Z88.5 Allergy status to narcotic agent; Z79.01 Long term (current) use of anticoagulants
CPT/HCPCS: 93005; 99285

== ENCOUNTER 2021-08-16 14:34 | Emergency (ER) | payer OTHER ==
[2021-08-16 15:30] VITALS: BP 126/84; PULSE 74; RESP 18; TEMP 98
[2021-08-16] MEDS ORDERED: traMADol 50 MG STARTER PACK 3 TAB BTL PO STA (16:04)
--- NOTE | 2021-08-16 16:05 | ED ---
Recheck HPI - General Chief Complaint: Recheck/Abnormal Lab/Rx Stated Complaint: Pain Time Seen by Provider: 08/16/21 15:44 Source: patient, RN notes reviewed Mode of arrival: ambulatory Limitations: no limitations - Related Data Home Medications Medication Instructions Recorded Confirmed Warfarin [Coumadin] 5 mg PO HS 07/25/19 07/30/21 Metoprolol Tartrate [Lopressor] 25 mg PO HS 07/30/21 07/30/21 Ondansetron [Zofran] 4 mg PO DAILY PRN 07/30/21 07/30/21 Allergies Allergy/AdvReac Type Severity Reaction Status Date / Time chlordiazepoxide HCl Allergy SEE COMMENT Verified 08/16/21 15:29 [From Librium] Penicillins Allergy Rash/Hives Verified 08/16/21 15:29 ketorolac [From Toradol] AdvReac ANXIETY Verified 08/16/21 15:29 morphine AdvReac Unknown Verified 08/16/21 15:29 prochlorperazine edisylate AdvReac PANIC Verified 08/16/21 15:29 [From Compazine] ATTACK prochlorperazine maleate AdvReac PANIC Verified 08/16/21 15:29 [From Compazine] ATTACK Review of Systems ROS Statement: Those systems with pertinent positive or pertinent negative responses have been documented in the HPI. ROS Other: All systems not noted in ROS Statement are negative. Past Medical History Past Medical History: Heart Failure, CVA/TIA, Liver Disease, Neurologic Disorder, Osteoarthritis (OA), Pneumonia, Seizure Disorder Additional Past Medical History / Comment(s): Stroke with residual right-sided weakness 2017, TIAs, marfan's syndrome, ArnoldChiari malformation, spontaneous pneumothorax x 21, scoliosis and pectus excavatum secondary to Marfan's, chronic back pain, bilateral leg pain, gastric ulcers, sinus infections, STATED HAS POOR CIRCULATION, viral meningitis, HEP C. 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 spleenectomy 2018, L upper lobectomy d/t pneumothoraxs. Past Anesthesia/Blood Transfusion Reactions: No Reported Reaction Past Psychological History: Anxiety Smoking Status: Current every day smoker Past Alcohol Use History: None Reported Past Drug Use History: Heroin, Marijuana - Past Family History Father Additional Family Medical History / Comment(s): Father is with history of AIDS. Mother Family Medical History: Diabetes Mellitus Additional Family Medical History / Comment(s): Mother at age 49 from liver cirrhosis secondary to alcohol abuse. Brother(s) Additional Family Medical History / Comment(s): Patient has one brother with no major medical problems. General Exam Limitations: no limitations General appearance: alert, in no apparent distress Head exam: Present: atraumatic, normocephalic, normal inspection Neck exam: Present: normal inspection. Absent: tenderness, meningismus, lym phadenopathy Respiratory exam: Present: normal lung sounds bilaterally. Absent: respiratory distress, wheezes, rales, rhonchi, stridor Cardiovascular Exam: Present: regular rate, normal rhythm, normal heart sounds. Absent: systolic murmur, diastolic murmur, rubs, gallop, clicks Back exam: Present: full ROM, tenderness. Absent: normal inspection Neurological exam: Present: alert, oriented X3 Course Vital Signs 08/16/21 15:27 Temperature 98 F Pulse Rate 74 Respiratory 18 Rate Blood Pressure 126/84 O2 Sat by Pulse 96 Oximetry Medical Decision Making - Medical Decision Making 36-year-old female presents emergency department for chronic pain. Patient is well-known emergency department. Patient states she's been on Suboxone but states she was admitted to another facility with see pain medications. She was cut off of her medication secondary breaking contract. Patient has had a history of drug abuse. Patient has no specific complaints other chronic pain. Patient denies chest pain shortness breath Disposition Clinical Impression: Chronic pain Disposition: HOME SELF-CARE Condition: Stable Additional Instructions: Please return to the Emergency Department if symptoms worsen or any other concerns. Is patient prescribed a controlled substance at d/c from ED?: No Referrals: [facility] [Primary Care Provider] - 1-2 days Time of Disposition: 16:05
== END 2021-08-16 16:20 | disposition home or self-care (01) ==
LOC: EC 14:34
DX: G89.29 Other chronic pain (principal); I50.9 Heart failure, unspecified; F17.200 Nicotine dependence, unspecified, uncomplicated; Z79.899 Other long term (current) drug therapy; Z86.73 Personal history of transient ischemic attack (TIA), and cerebral infarction without residual deficits; Z88.0 Allergy status to penicillin; Z88.5 Allergy status to narcotic agent; Z88.8 Allergy status to other drugs, medicaments and biological substances; Z88.6 Allergy status to analgesic agent
CPT/HCPCS: 99283

== ENCOUNTER → 2021-08-25 | Outpatient (CLI) | payer OTHER ==
--- NOTE | 2021-08-30 09:36 | USB ---
Reason for exam: clinical finding. History: Family history of breast cancer in maternal aunt. Physical Findings: Nurse did not find any significant physical abnormalities on exam. US Breast LT Left complete breast ultrasound includes all four quadrants, the retroareolar region and axilla. Finding demonstrates a 2.0 x 2.2 x 1.0cm oval, cystic cluster at 2 o'clock BB, a 0.7 x 0.6 x 0.5cm oval, cystic lesion at 5 o'clock, a 0.9 x 0.8 x 0.6cm oval, cystic lesion at 6 o'clock, a 1.6 x 2.4 x 1.0cm oval, cystic lesion at 9 o'clock, a 2.4 x 2.5 x 1.1cm oval, cystic cluster at 10 o'clock BB and a 1.3 x 0.6 x 0.3cm lymph node at the axilla. All Benign. These results were verbally communicated with the patient and result sheet given to the patient on 08/25/21. ASSESSMENT: Benign, BI-RAD 2 RECOMMENDATION: Routine screening mammogram of both breasts in 1 year. If patient unable to tolerate screening mammogram, consider annual screening ultrasound.
== END | disposition home or self-care (01) ==
LOC: RADUSWWP 14:47
PROVIDERS: ATTEND Internal Medicine
DX: N63.20 Unspecified lump in the left breast, unspecified quadrant (principal)

== ENCOUNTER 2021-09-01 11:18 | Emergency (ER) | payer OTHER ==
[2021-09-01 11:27] VITALS: RESP 16; TEMP 98.1
[2021-09-01] MEDS ORDERED: ALPRAZolam 0.25 MG TAB PO STA (12:28)
--- NOTE | 2021-09-01 12:35 | ED ---
General Adult HPI - General Source: patient, EMS, RN notes reviewed Mode of arrival: EMS <Gloria Taylor - Last Filed: 09/01/21 13:08> <Molly Casillas - Last Filed: 09/01/21 23:25> - General Chief complaint: Recheck/Abnormal Lab/Rx Stated complaint: Withdrawal Time Seen by Provider: 09/01/21 12:01 - History of Present Illness Initial comments: 36-year-old female presents to the emergency department complaining of withdrawal symptoms including restlessness and diaphoresis. Patient has been buying Suboxone off the street when she has money and has not been able to obtain any the past 2 days. States she often can manage her withdrawal symptoms at home, however states today she is feeling quite anxious. Patient is forthcoming with her past history of IV drug abuse. States she has an extensive cardiac history; denies any chest pain today. No fever, chills, chest pain, difficulty breathing, abdominal pain, nausea, vomiting, diarrhea, or dysuria. (Gloria Taylor) - Related Data Home Medications Medication Instructions Recorded Confirmed Warfarin [Coumadin] 5 mg PO HS 07/25/19 07/30/21 Metoprolol Tartrate [Lopressor] 25 mg PO HS 07/30/21 07/30/21 Ondansetron [Zofran] 4 mg PO DAILY PRN 07/30/21 07/30/21 Previous Rx's Medication Instructions Recorded ALPRAZolam [Xanax] 0.25 mg PO BID PRN 3 Days #6 tab 09/01/21 Allergies Allergy/AdvReac Type Severity Reaction Status Date / Time chlordiazepoxide HCl Allergy SEE COMMENT Verified 09/01/21 11:32 [From Librium] Penicillins Allergy Rash/Hives Verified 09/01/21 11:32 ketorolac [From Toradol] AdvReac ANXIETY Verified 09/01/21 11:32 morphine AdvReac Unknown Verified 09/01/21 11:32 prochlorperazine edisylate AdvReac PANIC Verified 09/01/21 11:32 [From Compazine] ATTACK prochlorperazine maleate AdvReac PANIC Verified 09/01/21 11:32 [From Compazine] ATTACK Review of Systems ROS Other: All systems not noted in ROS Statement are negative. <Gloria Taylor - Last Filed: 09/01/21 13:08> ROS Other: All systems not noted in ROS Statement are negative. <Molly Casillas January - Last Filed: 09/01/21 23:25> ROS Statement: Those systems with pertinent positive or pertinent negative responses have been documented in the HPI. Past Medical History Past Medical History: Heart Failure, CVA/TIA, Liver Disease, Neurologic Disorder, Osteoarthritis (OA), Pneumonia, Seizure Disorder Additional Past Medical History / Comment(s): Stroke with residual right-sided weakness 2017, TIAs, marfan's syndrome, ArnoldChiari malformation, spontaneous pneumothorax x 21, scoliosis and pectus excavatum secondary to Marfan's, chronic back pain, bilateral leg pain, gastric ulcers, sinus infections, STATED HAS POOR CIRCULATION, viral meningitis, HEP C. History of Any Multi-Drug Resistant Organisms: MRSA Date of last positivie culture/infection: 05/05/2010 MDRO Source:: back per patient Past Surgical History: Cardiac Valve Replacement, Coronary Bypass/CABG, Joint Replacement Additional Past Surgical History / Comment(s): right foot corrective surgery, R shoulder surgery following injury, CABG x4 vessel, aortic root graft, a ortic/mitral valve replaced as child (2 separate surgeries last 10 years old), tiffani lens removed. spleenectomy 2018, L upper lobectomy d/t pneumothoraxs. Past Anesthesia/Blood Transfusion Reactions: No Reported Reaction Past Psychological History: Anxiety Smoking Status: Current every day smoker Past Alcohol Use History: None Reported Past Drug Use History: Heroin, Marijuana - Past Family History Father Additional Family Medical History / Comment(s): Father is with history of AIDS. Mother Family Medical History: Diabetes Mellitus Additional Family Medical History / Comment(s): Mother at age 49 from liver cirrhosis secondary to alcohol abuse. Brother(s) Additional Family Medical History / Comment(s): Patient has one brother with no major medical problems. <Delilah Taylora - Last Filed: 09/01/21 13:08> General Exam Limitations: no limitations (Chronically poorly nourished female with a temperature 98.1, pulse 68, respiration 16, blood pressure 93/73, pulse ox 98% on room air) General appearance: alert, anxious, other (retless) Head exam: Present: atraumatic, normocephalic, normal inspection ENT exam: Present: normal oropharynx Respiratory exam: Present: normal lung sounds bilaterally. Absent: respiratory distress, wheezes, rales, rhonchi, stridor, chest wall tenderness Cardiovascular Exam: Present: regular rate, normal rhythm, normal heart sounds (associated with mechanical valve) GI/Abdominal exam: Present: soft, normal bowel sounds. Absent: distended, tenderness, guarding, rebound, rigid Neurological exam: Present: alert, oriented X3, CN II-XII intact, normal gait Psychiatric exam: Present: flat affect Skin exam: Present: warm, dry, intact, normal color <Gloria Taylor - Last Filed: 09/01/21 13:08> Course Vital Signs 09/01/21 09/01/21 11:21 13:40 Temperature 98.1 F 98.1 F Pulse Rate 68 85 Respiratory 16 16 Rate Blood Pressure 93/73 111/70 O2 Sat by Pulse 98 99 Oximetry Medical Decision Making <Gloria Taylor - Last Filed: 09/01/21 13:08> <Molly Casillas - Last Filed: 09/01/21 23:25> - Medical Decision Making This is a 36-year-old female with a past medical history of extensive heart disease secondary to Marfan syndrome and IV drug abuse presenting with complaints of withdrawal symptoms including restlessness and anxiety. Patient has been purchasing Suboxone off the street when she is able to afford it, but states she has not been able to obtain it the past 2 days and is experiencing some withdrawal. Upon exam, patient appears undernourished and somewhat unkempt, but is not in acute distress. Patient is observed pacing, but is able to rest calmly in bed to explain her situation and answer questions. Spoke with patient at length about the difficulty of treating her complaints with her past medical history and her continued misuse of medications not prescribed to her. Discussed option of limited quantity of Xanax; patient is agreeable to this. Encouraged to follow up with her PCP for recheck in the next 1-2 days. Discouraged from using or obtaining medications and substances not prescribed to her. Return parameters discussed in detail. Patient verbalizes understanding and agrees with this plan. (Gloria Taylor) Leatha was available for consultation in the emergency department. The history and physical exam were done by the midlevel provider. I was consulted for this patients care. I reviewed the case with the midlevel provider and based on their presentation of the patient, I agree with the assessment, medical decision making and plan of care as documented. Chart was dictated using [employer] dictation software. Attempts were made to correct any dictation errors however some typographical errors may persist. Patient was seen during a [facility] due to the Covid-19 pandemic. (Molly Casillas) Disposition Is patient prescribed a controlled substance at d/c from ED?: Yes When asked, does pt state using other controlled substances?: Yes If prescribed controlled substance>3 days was MAPS reviewed?: Prescribed <3 Days Time of Disposition: 13:03 <Gloria Taylor - Last Filed: 09/01/21 13:08> <Molly Casillas - Last Filed: 09/01/21 23:25> Clinical Impression: Drug withdrawal, Anxiety Disposition: HOME SELF-CARE Condition: Stable Instructions (If sedation given, give patient instructions): Opioid Withdrawal (ED) Additional Instructions: Follow-up with your PCP for further evaluation and treatment in the next 2 days. Please do not purchase or obtain medications that are not prescribed to you. Xanax may make you sleepy. Do not drive when you take this medication. Return to the emergency department with any new, worsening, or concerning symptoms. Prescriptions: ALPRAZolam [Xanax] 0.25 mg PO BID PRN 3 Days #6 tab PRN Reason: Anxiety Referrals: [facility] [Primary Care Provider] - 1-2 days
[2021-09-01 13:41] VITALS: BP 111/70; PULSE 85
== END 2021-09-01 13:40 | disposition home or self-care (01) ==
LOC: EC 11:18
DX: F11.23 Opioid dependence with withdrawal (principal); I50.9 Heart failure, unspecified; F17.200 Nicotine dependence, unspecified, uncomplicated; Z86.73 Personal history of transient ischemic attack (TIA), and cerebral infarction without residual deficits; Z88.0 Allergy status to penicillin; Z88.8 Allergy status to other drugs, medicaments and biological substances; Z88.6 Allergy status to analgesic agent; Z88.5 Allergy status to narcotic agent; Z79.01 Long term (current) use of anticoagulants; Z79.899 Other long term (current) drug therapy
CPT/HCPCS: 99284

== ENCOUNTER 2021-09-02 11:05 | Emergency (ER) | payer OTHER ==
[2021-09-02 11:12] VITALS: BP 107/70; PULSE 82; RESP 18; TEMP 98.7
--- NOTE | 2021-09-02 11:57 | ED ---
Chest Pain HPI - General Chief Complaint: Chest Pain Stated Complaint: Chest pain Time Seen by Provider: 09/02/21 11:10 Source: patient, EMS Mode of arrival: EMS Limitations: no limitations - History of Present Illness Initial Comments: 36-year-old female with past history of heroin use, CVA, Marfan syndrome presents to the emergency room for chest pain. She was seen yesterday in the emergency department for Suboxone withdrawals. States that she's been buying off the street and taking it however did not take it in 2 days. She presents today stating that she began having some chest pain starting yesterday. Denies any associated shortness of breath. No fevers or chills. Pain is located over the left side of her chest. Denies any numbness, tingling or weakness that is new in her extremities. No other alleviating, precipitating or modifying factors - Related Data Home Medications Medication Instructions Recorded Confirmed Warfarin [Coumadin] 5 mg PO HS 07/25/19 07/30/21 Metoprolol Tartrate [Lopressor] 25 mg PO HS 07/30/21 07/30/21 Ondansetron [Zofran] 4 mg PO DAILY PRN 07/30/21 07/30/21 Previous Rx's Medication Instructions Recorded ALPRAZolam [Xanax] 0.25 mg PO BID PRN 3 Days #6 tab 09/01/21 Allergies Allergy/AdvReac Type Severity Reaction Status Date / Time chlordiazepoxide HCl Allergy SEE COMMENT Verified 09/02/21 11:08 [From Librium] Penicillins Allergy Rash/Hives Verified 09/02/21 11:08 ketorolac [From Toradol] AdvReac ANXIETY Verified 09/02/21 11:08 morphine AdvReac Unknown Verified 09/02/21 11:08 prochlorperazine edisylate AdvReac PANIC Verified 09/02/21 11:08 [From Compazine] ATTACK prochlorperazine maleate AdvReac PANIC Verified 09/02/21 11:08 [From Compazine] ATTACK Review of Systems ROS Statement: Those systems with pertinent positive or pertinent negative responses have been documented in the HPI. ROS Other: All systems not noted in ROS Statement are negative. EKG Findings - EKG Comments: EKG Findings:: EKG demonstrates normal sinus rhythm with a rate of 71. AR interval 134. QRS 104. QTC of 458. No acute ST segment elevations or depressions Past Medical History Past Medical History: Heart Failure, CVA/TIA, Liver Disease, Neurologic Disorder, Osteoarthritis (OA), Pneumonia, Seizure Disorder Additional Past Medical History / Comment(s): Stroke with residual right-sided weakness 2017, TIAs, marfan's syndrome, ArnoldChiari malformation, spontaneous pneumothorax x 21, scoliosis and pectus excavatum secondary to Marfan's, chronic back pain, bilateral leg pain, gastric ulcers, sinus infections, STATED HAS POOR CIRCULATION, viral meningitis, HEP C. 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 spleenectomy 2018, L upper lobectomy d/t pneumothoraxs. Past Anesthesia/Blood Transfusion Reactions: No Reported Reaction Past Psychological History: Anxiety Smoking Status: Current every day smoker Past Alcohol Use History: None Reported Past Drug Use History: Heroin, Marijuana - Past Family History Father Additional Family Medical History / Comment(s): Father is with history of AIDS. Mother Family Medical History: Diabetes Mellitus Additional Family Medical History / Comment(s): Mother at age 49 from liver cirrhosis secondary to alcohol abuse. Brother(s) Additional Family Medical History / Comment(s): Patient has one brother with no major medical problems. General Exam Limitations: no limitations General appearance: alert, in no apparent distress Head exam: Present: atraumatic, normocephalic, normal inspection Neck exam: Present: normal inspection. Absent: tenderness, meningismus, lymphadenopathy Respiratory exam: Present: normal lung sounds bilaterally. Absent: respiratory distress, wheezes, rales, rhonchi, stridor Cardiovascular Exam: Present: regular rate, normal rhythm, normal heart sounds. Absent: systolic murmur, diastolic murmur, rubs, gallop, clicks Extremities exam: Present: other (contractures of RUE) Back exam: Present: other (scoliotic spine) Neurological exam: Present: alert, oriented X3 Course Vital Signs 09/02/21 11:08 Temperature 98.7 F Pulse Rate 82 Respiratory 18 Rate Blood Pressure 107/70 O2 Sat by Pulse 99 Oximetry Chest Pain MDM - MDM Upon arrival patient is placed into room 14. I recommended laboratory studies and a chest x-ray. 12-lead EKG was performed. Patient is requesting something for pain. She had just been seen yesterday in the emergency department for Suboxone withdrawal I did not recommend treatment with opioid pain medications. I offered treatment with motrin, tylenol, aspirin, nitro. Patient is refusing laboratory studies and imaging. States that she presented only for an EKG. Informed her that her workup is incomplete for her reported chest pain however she continues to refuse any other workup. Patient is informed that she will be leaving AGAINST MEDICAL ADVICE for which she understood and agreed to. Patient is aware of the risks including permanent disability and . Patient does sign AMA paperwork and leaves Disposition Clinical Impression: Chest pain Disposition: Left Against Medical Advice Condition: Undetermined Is patient prescribed a controlled substance at d/c from ED?: No Referrals: [facility] [Primary Care Provider] - 1-2 days Time of Disposition: 11:57
== END 2021-09-02 11:59 | disposition left against medical advice (07) ==
LOC: EC 11:05
DX: R07.9 Chest pain, unspecified (principal); F17.200 Nicotine dependence, unspecified, uncomplicated; I50.9 Heart failure, unspecified; Z86.73 Personal history of transient ischemic attack (TIA), and cerebral infarction without residual deficits; Z95.1 Presence of aortocoronary bypass graft; Z53.29 Procedure and treatment not carried out because of patient's decision for other reasons; Z88.0 Allergy status to penicillin; Z88.8 Allergy status to other drugs, medicaments and biological substances; Z88.5 Allergy status to narcotic agent; Z88.6 Allergy status to analgesic agent; Z79.899 Other long term (current) drug therapy; Z79.01 Long term (current) use of anticoagulants
CPT/HCPCS: 99284

== ENCOUNTER 2021-09-19 09:29 | Emergency (ER) | payer OTHER ==
[2021-09-19 09:39] VITALS: BP 122/59; PULSE 65; RESP 18; TEMP 98.1
[2021-09-19] MEDS ORDERED: LORazepam 1 MG TAB PO STA (09:56)
[2021-09-19] MEDS ORDERED: cloNIDine HCL 0.1 MG TAB PO STA (09:57)
--- NOTE | 2021-09-19 10:07 | ED ---
Anxiety HPI - General Chief Complaint: Anxiety Stated Complaint: withdrawals Time Seen by Provider: 09/19/21 09:33 Source: patient, EMS, RN notes reviewed Mode of arrival: EMS - History of Present Illness Initial Comments: This is a 36-year-old female who is well-known to the emergency department. Patient presents today stating that she is withdrawing from Suboxone. States he r last dose was yesterday. Patient admittedly has not been prescribed Suboxone for over one year. She states she actually gets it off the street illegally. She states she has not been able to find any. Patient was diagnosed with COVID- 19 last week but denies any chest pain, shortness of breath, fevers, or any other symptomology other than a mild cough. She states that she thinks she is doing good as far as COVID-19 is concerned. Patient states she does have some increased anxiety and agitation. Crease generalized muscle aching and myalgias. Patient has no changes to bowel movements. No problems with urination. No nausea or vomiting. MD Complaint: anxiety - Related Data Home Medications: Home Medications Medication Instructions Recorded Confirmed Warfarin [Coumadin] 5 mg PO HS 07/25/19 09/13/21 Metoprolol Tartrate [Lopressor] 25 mg PO HS 07/30/21 09/13/21 Ondansetron [Zofran] 4 mg PO DAILY PRN 07/30/21 09/13/21 Acetaminophen Tab [Tylenol Tab] 1,000 mg PO Q6HR PRN 09/13/21 09/13/21 Loperamide HCl [Imodium A-D] 2 mg PO DIRECTED 09/13/21 09/13/21 Previous Rx's Medication Instructions Recorded cloNIDine HCL [Kapvay] 0.1 mg PO Q12HR PRN #10 tab 09/19/21 Allergies/Adverse Reactions: Allergies Allergy/AdvReac Type Severity Reaction Status Date / Time chlordiazepoxide HCl Allergy SEE COMMENT Verified 09/13/21 17:00 [From Librium] Penicillins Allergy Rash/Hives Verified 09/13/21 17:00 ketorolac [From Toradol] AdvReac ANXIETY Verified 09/13/21 17:00 morphine AdvReac Unknown Verified 09/13/21 17:00 prochlorperazine edisylate AdvReac PANIC Verified 09/13/21 17:00 [From Compazine] ATTACK prochlorperazine maleate AdvReac PANIC Verified 09/13/21 17:00 [From Compazine] ATTACK Review of Systems ROS Statement: Those systems with pertinent positive or pertinent negative responses have been documented in the HPI. ROS Other: All systems not noted in ROS Statement are negative. Past Medical History Past Medical History: Heart Failure, CVA/TIA, Liver Disease, Neurologic Disorder, Osteoarthritis (OA), Pneumonia, Seizure Disorder Additional Past Medical History / Comment(s): Stroke with residual right-sided weakness 2017, TIAs, marfan's syndrome, ArnoldChiari malformation, spontaneous pneumothorax x 21, scoliosis and pectus excavatum secondary to Marfan's, chronic back pain, bilateral leg pain, gastric ulcers, sinus infections, STATED HAS POOR CIRCULATION, viral meningitis, HEP C. 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 spleenectomy 2018, L upper lobectomy d/t pneumothoraxs. Past Anesthesia/Blood Transfusion Reactions: No Reported Reaction Past Psychological History: Anxiety Smoking Status: Current every day smoker Past Alcohol Use History: None Reported Past Drug Use History: Heroin, Marijuana, Prescription Drug Abuse - Past Family History Father Additional Family Medical History / Comment(s): Father is with history of AIDS. Mother Family Medical History: Diabetes Mellitus Additional Family Medical History / Comment(s): Mother at age 49 from liver cirrhosis secondary to alcohol abuse. Brother(s) Additional Family Medical History / Comment(s): Patient has one brother with no major medical problems. General Exam - General Exam Comments Initial Comments: Cachectic appearing 36-year-old female in no acute distress. Patient does not appear to be ill or toxic. Limitations: no limitations General appearance: alert, anxious Head exam: Present: atraumatic, normocephalic, normal inspection Eye exam: Present: normal appearance, PERRL, EOMI. Absent: scleral icterus, conjunctival injection, periorbital swelling ENT exam: Present: normal exam, mucous membranes moist Neck exam: Present: normal inspection. Absent: tenderness, meningismus, lymphadenopathy Respiratory exam: Present: rhonchi, other (Mild rhonchi, no wheezing, severe kyphoscoliosis noted to chest wall). Absent: respiratory distress, wheezes, rales, stridor Cardiovascular Exam: Present: regular rate, normal rhythm, normal heart sounds. Absent: systolic murmur, diastolic murmur, rubs, gallop, clicks GI/Abdominal exam: Present: soft, normal bowel sounds. Absent: distended, tenderness, guarding, rebound, rigid Extremities exam: Present: normal inspection, full ROM, normal capillary refill. Absent: tenderness, pedal edema, joint swelling, calf tenderness Back exam: Present: normal inspection Neurological exam: Present: alert, oriented X3, CN II-XII intact Psychiatric exam: Present: normal affect, normal mood Skin exam: Present: warm, dry, intact, normal color. Absent: rash Course Vital Signs 09/19/21 09:31 Temperature 98.1 F Pulse Rate 65 Respiratory 18 Rate Blood Pressure 122/59 O2 Sat by Pulse 99 Oximetry Medical Decision Making - Medical Decision Making I did agree to give the patient a dose of Ativan here for anxiety. I will give her prescription for clonidine which be limited. Patient will need to follow-up with her regular physician for any further care. Patient, unfortunately, has poor relationships with many of the physicians here in town. Patient unable to obtain a pain management physician. Follow-up with your regular physician as directed. Return to the ER immediately if any symptoms worsen, new symptoms arise, or any other problems develop. The case was discussed in detail with ED attending physician. Presentation, findings, treatment plan discussed in detail. Disposition Clinical Impression: Acute anxiety, Opioid withdrawal without complication Disposition: HOME SELF-CARE Instructions (If sedation given, give patient instructions): Generalized Anxiety Disorder (ED), Narcotic Withdrawal (ED) Additional Instructions: Follow-up with your regular physician as directed. Return to the ER immediately if any symptoms worsen, new symptoms arise, or any other problems develop. Prescriptions: cloNIDine HCL [Kapvay] 0.1 mg PO Q12HR PRN #10 tab PRN Reason: Agitation Is patient prescribed a controlled substance at d/c from ED?: No Referrals: [facility] [Primary Care Provider] - 1-2 days Time of Disposition: 10:04
== END 2021-09-19 10:23 | disposition home or self-care (01) ==
LOC: EC 09:29
DX: F41.9 Anxiety disorder, unspecified (principal); F11.23 Opioid dependence with withdrawal; F17.200 Nicotine dependence, unspecified, uncomplicated; I50.9 Heart failure, unspecified; M19.90 Unspecified osteoarthritis, unspecified site; Z86.73 Personal history of transient ischemic attack (TIA), and cerebral infarction without residual deficits; Z88.5 Allergy status to narcotic agent; Z88.6 Allergy status to analgesic agent; Z88.8 Allergy status to other drugs, medicaments and biological substances; Z88.0 Allergy status to penicillin; Z79.899 Other long term (current) drug therapy; Z79.01 Long term (current) use of anticoagulants
CPT/HCPCS: 99283

== ENCOUNTER 2021-09-23 17:53 | Emergency (ER) | payer OTHER ==
[2021-09-23 18:28] VITALS: PULSE 94; RESP 18
[2021-09-23] MEDS ORDERED: HYDROmorphone 0.5 MG/0.5 ML SYRINGE IM STA (18:38)
--- NOTE | 2021-09-23 18:43 | ED ---
General Adult HPI - General Chief complaint: Recheck/Abnormal Lab/Rx Stated complaint: Withdrawal Time Seen by Provider: 09/23/21 18:21 Source: patient Mode of arrival: ambulatory Limitations: no limitations - History of Present Illness Initial comments: Dictation was produced using [employer] dictation software. please excuse any grammatical, word or spelling errors. Chief Complaint: 36-year-old female with past medical history of chronic aortic dissection, heart failure disease stroke. This emergency department for Suboxone withdrawal History of Present Illness: 36-year-old female she is well-known to emergency department. Patient has significant comorbidities. She is hospice care. She has a illicit drug use problem. States she stopped using heroin. She states she feels shaky over the last 24-48 hours. Patient has been obtaining Suboxone from random individuals from the streets. States that she ran out recently.She feels like she is withdrawing. She shaking as if she has total body pain. Patient states she stop using heroin. She has difficulty obtaining physicians here in the city because of her drug use disorder. Patient has no other complaints at this time. The ROS documented in this emergency department record has been reviewed and confirmed by me. Those systems with pertinent positive or negative responses have been documented in the HPI. All other systems are other negative and/or noncontributory. PHYSICAL EXAM: General Impression: Alert and oriented x3, not in acute distress, smiling at the bedside HEENT: Normocephalic atraumatic, extra-ocular movements intact, pupils equal and reactive to light bilaterally, mucous membranes moist, poor dentition Cardiovascular: Heart regular rate and rhythm Chest: Able to complete full sentences, no retractions, no tachypnea Abdomen: abdomen soft, non-tender, non-distended, no organomegaly Musculoskeletal: Pulses present and equal in all extremities, no peripheral edema Motor: no focal deficits noted Neurological: CN II-XII grossly intact, no focal motor or sensory deficits noted Skin: Intact with no visualized rashes Psych: Normal affect and mood ED course: 36-year-old female with reported Suboxone withdrawal. She does not have any features of Suboxone withdrawal or opiate withdrawal at this time. She is well-appearing and smiling at the bedside. She is in no acute distress. Vital signs upon arrival are within acceptable limits. Patient is hospice and has several comorbid conditions. I believe a small dose of opiates is a reas onable request for symptom control. Patient be discharged. Advised to follow- up with primary care physician. - Related Data Home Medications Medication Instructions Recorded Confirmed Warfarin [Coumadin] 5 mg PO HS 07/25/19 09/13/21 Metoprolol Tartrate [Lopressor] 25 mg PO HS 07/30/21 09/13/21 Ondansetron [Zofran] 4 mg PO DAILY PRN 07/30/21 09/13/21 Acetaminophen Tab [Tylenol Tab] 1,000 mg PO Q6HR PRN 09/13/21 09/13/21 Loperamide HCl [Imodium A-D] 2 mg PO DIRECTED 09/13/21 09/13/21 Previous Rx's Medication Instructions Recorded cloNIDine HCL [Kapvay] 0.1 mg PO Q12HR PRN #10 tab 09/19/21 Allergies Allergy/AdvReac Type Severity Reaction Status Date / Time chlordiazepoxide HCl Allergy SEE COMMENT Verified 09/23/21 18:19 [From Librium] Penicillins Allergy Rash/Hives Verified 09/23/21 18:19 ketorolac [From Toradol] AdvReac ANXIETY Verified 09/23/21 18:19 morphine AdvReac Unknown Verified 09/23/21 18:19 prochlorperazine edisylate AdvReac PANIC Verified 09/23/21 18:19 [From Compazine] ATTACK prochlorperazine maleate AdvReac PANIC Verified 09/23/21 18:19 [From Compazine] ATTACK Review of Systems ROS Statement: Those systems with pertinent positive or pertinent negative responses have been documented in the HPI. ROS Other: All systems not noted in ROS Statement are negative. Past Medical History Past Medical History: Heart Failure, CVA/TIA, Liver Disease, Neurologic Disorder, Osteoarthritis (OA), Pneumonia, Seizure Disorder Additional Past Medical History / Comment(s): Stroke with residual right-sided weakness 2017, TIAs, marfan's syndrome, ArnoldChiari malformation, spontaneous pneumothorax x 21, scoliosis and pectus excavatum secondary to Marfan's, chronic back pain, bilateral leg pain, gastric ulcers, sinus infections, STATED HAS POOR CIRCULATION, viral meningitis, HEP C. 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 spleenectomy 2018, L upper lobectomy d/t pneumothoraxs. Past Anesthesia/Blood Transfusion Reactions: No Reported Reaction Past Psychological History: Anxiety Smoking Status: Current every day smoker Past Alcohol Use History: None Reported Past Drug Use History: Heroin, Marijuana, Prescription Drug Abuse - Past Family History Father Additional Family Medical History / Comment(s): Father is with history of AIDS. Mother Family Medical History: Diabetes Mellitus Additional Family Medical History / Comment(s): Mother at age 49 from liver cirrhosis secondary to alcohol abuse. Brother(s) Additional Family Medical History / Comment(s): Patient has one brother with no major medical problems. General Exam Limitations: no limitations Course Vital Signs 09/23/21 18:13 Temperature 97.5 F L Pulse Rate 94 Respiratory 18 Rate Blood Pressure 103/44 O2 Sat by Pulse 97 Oximetry Disposition Clinical Impression: Opiate withdrawal Disposition: HOME SELF-CARE Condition: Fair Instructions (If sedation given, give patient instructions): Opioid Use Disorder (ED) Is patient prescribed a controlled substance at d/c from ED?: No Referrals: [facility] [Primary Care Provider] - 1-2 days
[2021-09-23 18:50] VITALS: BP 119/78; TEMP 97.8
== END 2021-09-23 18:52 | disposition home or self-care (01) ==
LOC: EC 17:53
DX: F11.23 Opioid dependence with withdrawal (principal); F17.200 Nicotine dependence, unspecified, uncomplicated; I50.9 Heart failure, unspecified; M19.90 Unspecified osteoarthritis, unspecified site; Z86.73 Personal history of transient ischemic attack (TIA), and cerebral infarction without residual deficits; Z88.8 Allergy status to other drugs, medicaments and biological substances; Z88.0 Allergy status to penicillin; Z88.6 Allergy status to analgesic agent; Z88.5 Allergy status to narcotic agent; Z79.899 Other long term (current) drug therapy; Z79.01 Long term (current) use of anticoagulants
CPT/HCPCS: 99284; 96372; J1170

== ENCOUNTER 2021-09-28 19:25 | Emergency (ER) | payer OTHER ==
[2021-09-28 19:34] VITALS: RESP 20; TEMP 98.6
[2021-09-28 21:45] VITALS: BP 125/85; PULSE 79
[2021-09-28 23:45] LABS: Basophils # (A) 0.1 k/uL (0-0.2); Basophils % (A) 1 %; Eosinophils # (A) 0.1 k/uL (0-0.7); Eosinophils % (A) 1 %; HCT 45.8 % (34.0-46.0); HGB 14.6 gm/dL (11.4-16.0); Lymphocytes % (A) 16 %; MCH 32.1 pg (25.0-35.0); MCHC 31.9 g/dL (31.0-37.0); MCV 100.8 fL (80.0-100.0); Mean Platelet Volume 8.3; Monocytes # (A) 0.8 k/uL (0-1.0); Monocytes % (A) 7 %; Neutrophils # (A) 9.5 k/uL (1.3-7.7); Neutrophils % (A) 75 %; Platelet Count 331 k/uL (150-450); RBC 4.54 m/uL (3.80-5.40); RDW 13.3 % (11.5-15.5); WBC 12.8 k/uL (3.8-10.6)
[2021-09-28 23:53] LABS: Appearance,Urine Cloudy (Clear); Bacteria,Urine Few /hpf; Bilirubin,Urine 1+ (Negative); Blood,Urine Negative (Negative); Cellular Casts,Urine 2 /lpf (0); Color,Urine Yellow; Glucose,Urine (UA) Negative (Negative); Granular Casts,Urine 35 /lpf (0); Hyaline Casts,Urine 10 /lpf (0-2); Ketones,Urine 2+ (Negative); Leukocyte Esterase,Urine Negative (Negative); Mucus,Urine Many /hpf; Nitrite,Urine Negative (Negative); PH, Urine 5.5 (5.0-8.0); Protein,Urine 1+ (Negative); RBC,Urine 2 /hpf (0-5); Squamous Epithelial Cell,Urine 10 /hpf (0-4); WBC,Urine 12 /hpf (0-5)
--- NOTE | 2021-09-28 23:57 | XR ---
EXAM: XR Chest, 2 Views CLINICAL HISTORY: Chest pain. TECHNIQUE: Frontal and lateral views of the chest. COMPARISON: 09/13/2021. FINDINGS: Lungs: Unremarkable. No consolidation. Pleural space: Unremarkable. No pneumothorax. Heart: There is cardiomegaly. Mediastinum: Unremarkable. Bones/joints: Sternotomy wires are noted in place. Osteopenia. Orthopedic hardware about the proximal right humerus. Marked scoliosis of the thoracic spine. IMPRESSION: 1. Cardiomegaly. Clinical correlation is advised to 2. Osteopenia.
[2021-09-28 23:58] LABS: INR 2.2 (<1.2); Partial Thromboplastin Time 36.8 sec (22.0-30.0); Prothrombin Time 22.1 sec (9.0-12.0)
[2021-09-29 00:02] LABS: ALT 13 U/L (4-34); AST 29 U/L (14-36); African American GFR (CKD) >90 (>60 ml/min/1.73 sqM); Albumin 4.6 g/dL (3.5-5.0); Alkaline Phosphatase 96 U/L (38-126); Anion Gap 11 mmol/L; Blood Urea Nitrogen 16 mg/dL (7-17); Calcium 9.9 mg/dL (8.4-10.2); Carbon Dioxide 28 mmol/L (22-30); Chloride 100 mmol/L (98-107); Glucose 87 mg/dL (74-99); Non-African American GFR(CKD) >90 (>60 ml/min/1.73 sqM); Sodium 139 mmol/L (137-145); Total Bilirubin 1.1 mg/dL (0.2-1.3); Total Protein 8.6 g/dL (6.3-8.2)
[2021-09-29 00:23] LABS: Amphetamine Screen,Urine Detected (NotDetected); Barbiturate Screen,Urine Not Detected (NotDetected); Benzodiazepines Screen,Urine Not Detected (NotDetected); Cocaine Screen,Urine Not Detected (NotDetected); Methadone Screen, Urine Not Detected (NotDetected); Opiate Screen,Urine Detected (NotDetected); Oxycodone Screen, Urine Not Detected (NotDetected); Phencyclidine Screen,Urine Not Detected (NotDetected); Tricyclic Antidepressant,Urine Not Detected (NotDetected); Urn Cannabinoid Scrn Detected (NotDetected)
--- NOTE | 2021-09-29 00:25 | ED ---
Nausea/Vomiting/Diarrhea HPI - General Chief complaint: Nausea/Vomiting/Diarrhea Stated complaint: Generalized weakness,anxiety Time Seen by Provider: 09/28/21 21:50 Source: patient Mode of arrival: ambulatory Limitations: no limitations - History of Present Illness Initial comments: 36 year-old female patient presents to the emergency department for evaluation of left upper chest pain and nausea. States symptoms started two days ago and have been constant. States this pain is different from her usual chest pain symptoms. Denies shortness of breath. States she has had worsening cough. Reports nausea with a few episodes of vomiting. She reports last methamphetamine use on Monday. States she smokes marijuana. Denies leg swelling or pain. Denies taking any medication for her symptoms. Does take coumadin, last INR was 4 weeks ago. - Related Data Home Medications Medication Instructions Recorded Confirmed Warfarin [Coumadin] 5 mg PO HS 07/25/19 09/13/21 Metoprolol Tartrate [Lopressor] 25 mg PO HS 07/30/21 09/13/21 Ondansetron [Zofran] 4 mg PO DAILY PRN 07/30/21 09/13/21 Acetaminophen Tab [Tylenol Tab] 1,000 mg PO Q6HR PRN 09/13/21 09/13/21 Loperamide HCl [Imodium A-D] 2 mg PO DIRECTED 09/13/21 09/13/21 Previous Rx's Medication Instructions Recorded cloNIDine HCL [Kapvay] 0.1 mg PO Q12HR PRN #10 tab 09/19/21 Allergies Allergy/AdvReac Type Severity Reaction Status Date / Time chlordiazepoxide HCl Allergy SEE COMMENT Verified 09/23/21 18:19 [From Librium] Penicillins Allergy Rash/Hives Verified 09/23/21 18:19 ketorolac [From Toradol] AdvReac ANXIETY Verified 09/23/21 18:19 morphine AdvReac Unknown Verified 09/23/21 18:19 prochlorperazine edisylate AdvReac PANIC Verified 09/23/21 18:19 [From Compazine] ATTACK prochlorperazine maleate AdvReac PANIC Verified 09/23/21 18:19 [From Compazine] ATTACK Review of Systems ROS Statement: Those systems with pertinent positive or pertinent negative responses have been documented in the HPI. ROS Other: All systems not noted in ROS Statement are negative. Past Medical History Past Medical History: Heart Failure, CVA/TIA, Liver Disease, Neurologic Disorder, Osteoarthritis (OA), Pneumonia, Seizure Disorder Additional Past Medical History / Comment(s): Stroke with residual right-sided weakness 2017, TIAs, marfan's syndrome, ArnoldChiari malformation, spontaneous pneumothorax x 21, scoliosis and pectus excavatum secondary to Marfan's, chronic back pain, bilateral leg pain, gastric ulcers, sinus infections, STATED HAS POOR CIRCULATION, viral meningitis, HEP C. 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 spleenectomy 2018, L upper lobectomy d/t pneumothoraxs. Past Anesthesia/Blood Transfusion Reactions: No Reported Reaction Past Psychological History: Anxiety Smoking Status: Current every day smoker Past Alcohol Use History: None Reported Past Drug Use History: Heroin, Marijuana, Prescription Drug Abuse - Past Family History Father Additional Family Medical History / Comment(s): Father is with history of AIDS. Mother Family Medical History: Diabetes Mellitus Additional Family Medical History / Comment(s): Mother at age 49 from liver cirrhosis secondary to alcohol abuse. Brother(s) Additional Family Medical History / Comment(s): Patient has one brother with no major medical problems. General Exam Limitations: no limitations General appearance: alert, in no apparent distress, other (This is a well developed, thin adult female in no acute distress.) ENT exam: Present: normal exam, normal oropharynx, mucous membranes moist Respiratory exam: Present: normal lung sounds bilaterally. Absent: respiratory distress, wheezes, rales, rhonchi, stridor Cardiovascular Exam: Present: regular rate, normal rhythm, normal heart sounds. Absent: systolic murmur, diastolic murmur, rubs, gallop, clicks GI/Abdominal exam: Present: soft, normal bowel sounds. Absent: distended, tenderness, guarding, rebound, rigid Neurological exam: Present: alert, oriented X3, CN II-XII intact Psychiatric exam: Present: normal affect, normal mood Skin exam: Present: warm, dry, intact, normal color. Absent: rash Course Vital Signs 09/28/21 09/28/21 19:31 21:42 Temperature 98.6 F Pulse Rate 62 79 Respiratory 20 20 Rate Blood Pressure 125/83 125/85 O2 Sat by Pulse 93 L 96 Oximetry Medical Decision Making - Medical Decision Making 36-year-old female patient presents to the emergency department today for evaluation of chest pain and nausea. Physical examination reveals clear equal lung sounds. Labs reviewed and did reveal 12.8 white blood cell count, INR 2.2. Urinalysis shows 12 white blood cells, this will be sent for culture. Drug screen was positive for opiates, methamphetamines, and marijuana. Chest x-ray is negative. EKG is unremarkable. She'll be discharged follow-up with her primary care physician for recheck in 1-2 days. Return parameters discussed in detail. She verbalizes understanding and agrees with this plan. My attending is Dr. Farah. - Lab Data Result diagrams: 09/28/21 23:26 09/28/21 23:26 Lab Results 09/28/21 09/28/21 09/28/21 Range/Units 23:23 23:23 23:26 WBC 12.8 H (3.8-10.6) k/uL RBC 4.54 (3.80-5.40) m/uL Hgb 14.6 (11.4-16.0) gm/dL Hct 45.8 (34.0-46.0) % MCV 100.8 H (80.0-100.0) fL MCH 32.1 (25.0-35.0) pg MCHC 31.9 (31.0-37.0) g/dL RDW 13.3 (11.5-15.5) % Plt Count 331 (150-450) k/uL MPV 8.3 Neutrophils % 75 % Lymphocytes % 16 % Monocytes % 7 % Eosinophils % 1 % Basophils % 1 % Neutrophils # 9.5 H (1.3-7.7) k/uL Lymphocytes # 2.0 (1.0-4.8) k/uL Monocytes # 0.8 (0-1.0) k/uL Eosinophils # 0.1 (0-0.7) k/uL Basophils # 0.1 (0-0.2) k/uL PT (9.0-12.0) sec INR (<1.2) APTT (22.0-30.0) sec Sodium (137-145) mmol/L Potassium (3.5-5.1) mmol/L Chloride (98-107) mmol/L Carbon Dioxide (22-30) mmol/L Anion Gap mmol/L BUN (7-17) mg/dL Creatinine (0.52-1.04) mg/dL Est GFR (CKD-EPI)AfAm (>60 ml/min/1.73 sqM) Est GFR (CKD-EPI)NonAf (>60 ml/min/1.73 sqM) Glucose (74-99) mg/dL Calcium (8.4-10.2) mg/dL Total Bilirubin (0.2-1.3) mg/dL AST (14-36) U/L ALT (4-34) U/L Alkaline Phosphatase (38-126) U/L Troponin I (0.000-0.034) ng/mL Total Protein (6.3-8.2) g/dL Albumin (3.5-5.0) g/dL Urine Color Yellow Urine Appearance Cloudy H (Clear) Urine pH 5.5 (5.0-8.0) Ur Specific [place] 1.030 (1.001-1.035) Urine Protein 1+ H (Negative) Urine Glucose (UA) Negative (Negative) Urine Ketones 2+ H (Negative) Urine Blood Negative (Negative) Urine Nitrite Negative (Negative) Urine Bilirubin 1+ H (Negative) Urine Urobilinogen 4.0 (<2.0) mg/dL Ur Leukocyte Esterase Negative (Negative) Urine RBC 2 (0-5) /hpf Urine WBC 12 H (0-5) /hpf Ur Squamous Epith Cells 10 H (0-4) /hpf Urine Bacteria Few H (None) /hpf Cellular Casts 2 (0) /lpf Hyaline Casts 10 H (0-2) /lpf Granular Casts 35 (0) /lpf Urine Mucus Many H (None) /hpf Urine Opiates Screen Detected H (NotDetected) Ur Oxycodone Screen Not Detected (NotDetected) Urine Methadone Screen Not Detected (NotDetected) Ur Propoxyphene Screen Not Detected (NotDetected) Ur Barbiturates Screen Not Detected (NotDetected) U Tricyclic Antidepress Not Detected (NotDetected) Ur Phencyclidine Scrn Not Detected (NotDetected) Ur Amphetamines Screen Detected H (NotDetected) U Methamphetamines Scrn Detected H (NotDetected) U Benzodiazepines Scrn Not Detected (NotDetected) Urine Cocaine Screen Not Detected (NotDetected) U Marijuana (THC) Screen Detected H (NotDetected) 09/28/21 09/28/21 09/28/21 Range/Units 23:26 23:26 23:26 WBC (3.8-10.6) k/uL RBC (3.80-5.40) m/uL Hgb (11.4-16.0) gm/dL Hct (34.0-46.0) % MCV (80.0-100.0) fL MCH (25.0-35.0) pg MCHC (31.0-37.0) g/dL RDW (11.5-15.5) % Plt Count (150-450) k/uL MPV Neutrophils % % Lymphocytes % % Monocytes % % Eosinophils % % Basophils % % Neutrophils # (1.3-7.7) k/uL Lymphocytes # (1.0-4.8) k/uL Monocytes # (0-1.0) k/uL Eosinophils # (0-0.7) k/uL Basophils # (0-0.2) k/uL PT 22.1 H (9.0-12.0) sec INR 2.2 H (<1.2) APTT 36.8 H (22.0-30.0) sec Sodium 139 (137-145) mmol/L Potassium 4.0 (3.5-5.1) mmol/L Chloride 100 (98-107) mmol/L Carbon Dioxide 28 (22-30) mmol/L Anion Gap 11 mmol/L BUN 16 (7-17) mg/dL Creatinine 0.47 L (0.52-1.04) mg/dL Est GFR (CKD-EPI)AfAm >90 (>60 ml/min/1.73 sqM) Est GFR (CKD-EPI)NonAf >90 (>60 ml/min/1.73 sqM) Glucose 87 (74-99) mg/dL Calcium 9.9 (8.4-10.2) mg/dL Total Bilirubin 1.1 (0.2-1.3) mg/dL AST 29 (14-36) U/L ALT 13 (4-34) U/L Alkaline Phosphatase 96 (38-126) U/L Troponin I <0.012 (0.000-0.034) ng/mL Total Protein 8.6 H (6.3-8.2) g/dL Albumin 4.6 (3.5-5.0) g/dL Urine Color Urine Appearance (Clear) Urine pH (5.0-8.0) Ur Specific [place] (1.001-1.035) Urine Protein (Negative) Urine Glucose (UA) (Negative) Urine Ketones (Negative) Urine Blood (Negative) Urine Nitrite (Negative) Urine Bilirubin (Negative) Urine Urobilinogen (<2.0) mg/dL Ur Leukocyte Esterase (Negative) Urine RBC (0-5) /hpf Urine WBC (0-5) /hpf Ur Squamous Epith Cells (0-4) /hpf Urine Bacteria (None) /hpf Cellular Casts (0) /lpf Hyaline Casts (0-2) /lpf Granular Casts (0) /lpf Urine Mucus (None) /hpf Urine Opiates Screen (NotDetected) Ur Oxycodone Screen (NotDetected) Urine Methadone Screen (NotDetected) Ur Propoxyphene Screen (NotDetected) Ur Barbiturates Screen (NotDetected) U Tricyclic Antidepress (NotDetected) Ur Phencyclidine Scrn (NotDetected) Ur Amphetamines Screen (NotDetected) U Methamphetamines Scrn (NotDetected) U Benzodiazepines Scrn (NotDetected) Urine Cocaine Screen (NotDetected) U Marijuana (THC) Screen (NotDetected) - EKG Data -: EKG Interpreted by Me EKG Comments: EKG obtained at 2215 shows sinus tachycardia with a rate of 103, NV interval 134, QRS duration 104, QT 374, QTC 489. No evidence of ST elevation or depression. - Radiology Data Radiology results: report reviewed, image reviewed 2 view of the chest is obtained. Report was reviewed in its entirety. Impression by Dr. Louie shows cardiomegaly. Clinical correlation advised. Osteopenia. Disposition Clinical Impression: Chest pain Disposition: HOME SELF-CARE Condition: Good Instructions (If sedation given, give patient instructions): Chest Pain (ED) Additional Instructions: Tips to help you feel better: -Maintain adequate fluid intake - especially water. -Rest, you are healing your body will require extra sleep. -Eat even if you do not feel like it - broth, jello, toast are fine if you cannot eat full meals. -Take tylenol and motrin alternating (if you have no allergies or have not been instructed to avoid these medications) to help with body aches and fevers. -Obtain over the counter vitamin C, zinc, and vitamin D3. -Take medications as prescribed. Follow-up with your primary care physician for recheck in 1-2 days. Return for any new, worsening, or concerning symptoms. Is patient prescribed a controlled substance at d/c from ED?: No Referrals: [facility] [Primary Care Provider] - 1-2 days Time of Disposition: 00:53
== END 2021-09-29 01:24 | disposition home or self-care (01) ==
LOC: EC 19:25
DX: R07.9 Chest pain, unspecified (principal); I50.9 Heart failure, unspecified; F17.200 Nicotine dependence, unspecified, uncomplicated; Z79.891 Long term (current) use of opiate analgesic; Z88.8 Allergy status to other drugs, medicaments and biological substances; Z88.0 Allergy status to penicillin; Z88.6 Allergy status to analgesic agent; Z88.9 Allergy status to unspecified drugs, medicaments and biological substances; Z86.73 Personal history of transient ischemic attack (TIA), and cerebral infarction without residual deficits
CPT/HCPCS: 36415; 71046; 80053; 80306; 81001; 84484; 85025; 85610; 85730; 87086; 93005; 99285

== ENCOUNTER 2021-10-08 10:58 | Emergency (ER) | payer OTHER ==
[2021-10-08 11:09] VITALS: BP 114/68; PULSE 68; RESP 18; TEMP 97.8
--- NOTE | 2021-10-08 11:21 | ED ---
General Adult HPI - General Chief complaint: Recheck/Abnormal Lab/Rx Stated complaint: Withdrawl symptoms Time Seen by Provider: 10/08/21 11:01 Source: patient, EMS, RN notes reviewed Mode of arrival: EMS Limitations: no limitations - History of Present Illness Initial comments: 36-year-old female presents to the emergency department via EMS for evaluation of withdrawal symptoms. Patient states she purchases Suboxone off the street and her last use was yesterday. Patient states she is not prescribed this medicine and is unable to find someone to prescribe it to her as she has a lengthy history of IV drug abuse and heart disease. Patient's withdrawal symptoms include alternating feeling flushed and chilled, nausea, urinary frequency, and diffuse pain. Patient denies fever, anxiety, chest pain, palpitations, shortness of breath, difficulty breathing, and diarrhea. - Related Data Home Medications Medication Instructions Recorded Confirmed Warfarin [Coumadin] 5 mg PO HS 07/25/19 09/13/21 Metoprolol Tartrate [Lopressor] 25 mg PO HS 07/30/21 09/13/21 Ondansetron [Zofran] 4 mg PO DAILY PRN 07/30/21 09/13/21 Acetaminophen Tab [Tylenol Tab] 1,000 mg PO Q6HR PRN 09/13/21 09/13/21 Loperamide HCl [Imodium A-D] 2 mg PO DIRECTED 09/13/21 09/13/21 Previous Rx's Medication Instructions Recorded cloNIDine HCL [Kapvay] 0.1 mg PO Q12HR PRN #10 tab 09/19/21 Allergies Allergy/AdvReac Type Severity Reaction Status Date / Time chlordiazepoxide HCl Allergy SEE COMMENT Verified 09/23/21 18:19 [From Librium] Penicillins Allergy Rash/Hives Verified 09/23/21 18:19 ketorolac [From Toradol] AdvReac ANXIETY Verified 09/23/21 18:19 morphine AdvReac Unknown Verified 09/23/21 18:19 prochlorperazine edisylate AdvReac PANIC Verified 09/23/21 18:19 [From Compazine] ATTACK prochlorperazine maleate AdvReac PANIC Verified 09/23/21 18:19 [From Compazine] ATTACK Review of Systems ROS Statement: Those systems with pertinent positive or pertinent negative responses have been documented in the HPI. ROS Other: All systems not noted in ROS Statement are negative. Past Medical History Past Medical History: Heart Failure, CVA/TIA, Liver Disease, Neurologic Disorder, Osteoarthritis (OA), Pneumonia, Seizure Disorder Additional Past Medical History / Comment(s): Stroke with residual right-sided weakness 2017, TIAs, marfan's syndrome, ArnoldChiari malformation, spontaneous pneumothorax x 21, scoliosis and pectus excavatum secondary to Marfan's, chronic back pain, bilateral leg pain, gastric ulcers, sinus infections, STATED HAS POOR CIRCULATION, viral meningitis, HEP C. History of Any Multi-Drug Resistant Organisms: MRSA Date of last positivie culture/infection: 05/05/2010 MDRO Source:: back per patient Past Surgical History: Cardiac Valve Replacement, Coronary Bypass/CABG, Joint Replacement Additional Past Surgical History / Comment(s): right foot corrective surgery, R shoulder surgery following injury, CABG x4 vessel, aortic root graft, aort ic/mitral valve replaced as child (2 separate surgeries last 10 years old), tiffani lens removed. spleenectomy 2018, L upper lobectomy d/t pneumothoraxs. Past Anesthesia/Blood Transfusion Reactions: No Reported Reaction Past Psychological History: Anxiety Smoking Status: Current every day smoker Past Alcohol Use History: None Reported Past Drug Use History: Heroin, Marijuana, Prescription Drug Abuse - Past Family History Father Additional Family Medical History / Comment(s): Father is with history of AIDS. Mother Family Medical History: Diabetes Mellitus Additional Family Medical History / Comment(s): Mother at age 49 from liver cirrhosis secondary to alcohol abuse. Brother(s) Additional Family Medical History / Comment(s): Patient has one brother with no major medical problems. General Exam Limitations: no limitations General appearance: alert, in no apparent distress, cachectic, other (Patient appears poorly nourished and unkempt, but in no acute distress. Initial temperature 97.8, pulse 68, respirations 18, blood pressure 114/68, pulse ox 98% on room air.) Head exam: Present: atraumatic, normocephalic, normal inspection Eye exam: Present: normal appearance, PERRL, EOMI. Absent: scleral icterus, conjunctival injection, periorbital swelling Respiratory exam: Present: normal lung sounds bilaterally, other (pectus excavatum). Absent: respiratory distress, wheezes, rales, rhonchi, stridor, accessory muscle use Cardiovascular Exam: Present: regular rate, normal rhythm, systolic murmur GI/Abdominal exam: Present: soft, normal bowel sounds. Absent: distended, tenderness, guarding, rebound, rigid Neurological exam: Present: alert, oriented X3, normal gait Psychiatric exam: Present: flat affect Skin exam: Present: warm, dry, intact, normal color Course Vital Signs 10/08/21 11:06 Temperature 97.8 F Pulse Rate 68 Respiratory 18 Rate Blood Pressure 114/68 O2 Sat by Pulse 98 Oximetry Medical Decision Making - Medical Decision Making This is a 36-year-old female in poor health with a past medical history significant for heart disease secondary to Marfan syndrome and IVDA, chronic pain, and current Suboxone use which is purchased off the street. She presents complaining of withdrawal symptoms that include alternating feeling flushed and chilled, mild nausea, total body pain, and urinary frequency. Upon exam, patient appears cachectic and poorly kempt, however is not ill or toxic appearing. Patient is able to move freely, converse easily, and ambulate without difficulty. There are no physical exam findings of acute withdrawal. Patient's last use was yesterday. Specifically states that she is not anxious, short of breath, or experiencing chest pain. Due to her complaint of frequency, urinalysis was obtained with no significant findings. Drug screen was positive for cannabis. Patient was given Zofran with some relief. She will be discharged home with a prescription for antiemetic and instructed to follow up with her PCP for recheck in the next few days. Encouraged to avoid purchasing or using medications or substances not prescribed to her. Instructed to return to the emergency department with any new, worsening, or concerning symptoms. This patient's care was discussed with my attending, Dr. Mercado. - Lab Data Lab Results 10/08/21 10/08/21 Range/Units 11:49 11:49 Urine Color Light Yellow Urine Appearance Clear (Clear) Urine pH 7.0 (5.0-8.0) Ur Specific [place] 1.007 (1.001-1.035) Urine Protein Negative (Negative) Urine Glucose (UA) Negative (Negative) Urine Ketones Negative (Negative) Urine Blood Small H (Negative) Urine Nitrite Negative (Negative) Urine Bilirubin Negative (Negative) Urine Urobilinogen <2.0 (<2.0) mg/dL Ur Leukocyte Esterase Negative (Negative) Urine RBC 1 (0-5) /hpf Urine WBC 1 (0-5) /hpf Ur Squamous Epith Cells 2 (0-4) /hpf Urine Bacteria Rare H (None) /hpf Urine Opiates Screen Not Detected (NotDetected) Ur Oxycodone Screen Not Detected (NotDetected) Urine Methadone Screen Not Detected (NotDetected) Ur Propoxyphene Screen Not Detected (NotDetected) Ur Barbiturates Screen Not Detected (NotDetected) U Tricyclic Antidepress Not Detected (NotDetected) Ur Phencyclidine Scrn Not Detected (NotDetected) Ur Amphetamines Screen Not Detected (NotDetected) U Methamphetamines Scrn Not Detected (NotDetected) U Benzodiazepines Scrn Not Detected (NotDetected) Urine Cocaine Screen Not Detected (NotDetected) U Marijuana (THC) Screen Detected H (NotDetected) Disposition Clinical Impression: Nausea, Illicit drug use, continuous, Marijuana use Disposition: HOME SELF-CARE Condition: Stable Instructions (If sedation given, give patient instructions): Acute Nausea and Vomiting (ED), Polysubstance Abuse (ED) Additional Instructions: Take Zofran as needed for nausea. Eat small frequent meals. Please do not purchase medications or substances not prescribed to you. Follow-up at the [facility] within the next 1-2 days. Return to the emergency department with any new, worsening, or concerning symptoms. Is patient prescribed a controlled substance at d/c from ED?: No Referrals: [facility] [Primary Care Provider] - 1-2 days Time of Disposition: 12:57
[2021-10-08] MEDS: ONDANSETRON ODT 4 MG TAB PO STA (11:29)
[2021-10-08 12:33] LABS: Appearance,Urine Clear (Clear); Bacteria,Urine Rare /hpf; Bilirubin,Urine Negative (Negative); Blood,Urine Small (Negative); Color,Urine Light Yellow; Glucose,Urine (UA) Negative (Negative); Ketones,Urine Negative (Negative); Leukocyte Esterase,Urine Negative (Negative); Nitrite,Urine Negative (Negative); Protein,Urine Negative (Negative); RBC,Urine 1 /hpf (0-5); Specific Gravity,Urine 1.007 (1.001-1.035); Squamous Epithelial Cell,Urine 2 /hpf (0-4); Urobilinogen,Urine <2.0 mg/dL (<2.0); WBC,Urine 1 /hpf (0-5)
[2021-10-08 12:36] LABS: Amphetamine Screen,Urine Not Detected (NotDetected); Barbiturate Screen,Urine Not Detected (NotDetected); Benzodiazepines Screen,Urine Not Detected (NotDetected); Cocaine Screen,Urine Not Detected (NotDetected); Methadone Screen, Urine Not Detected (NotDetected); Opiate Screen,Urine Not Detected (NotDetected); Oxycodone Screen, Urine Not Detected (NotDetected); Phencyclidine Screen,Urine Not Detected (NotDetected); Tricyclic Antidepressant,Urine Not Detected (NotDetected); Urn Cannabinoid Scrn Detected (NotDetected)
== END 2021-10-08 13:08 | disposition home or self-care (01) ==
LOC: EC 10:58
DX: F12.90 Cannabis use, unspecified, uncomplicated (principal); F17.200 Nicotine dependence, unspecified, uncomplicated; I50.9 Heart failure, unspecified; M19.90 Unspecified osteoarthritis, unspecified site; Z88.0 Allergy status to penicillin; Z86.73 Personal history of transient ischemic attack (TIA), and cerebral infarction without residual deficits; Z88.5 Allergy status to narcotic agent; Z88.6 Allergy status to analgesic agent; Z88.8 Allergy status to other drugs, medicaments and biological substances; Z79.899 Other long term (current) drug therapy; Z79.01 Long term (current) use of anticoagulants
CPT/HCPCS: 80306; 81001; 99283

== ENCOUNTER 2021-10-14 15:02 | Emergency (ER) | payer OTHER ==
[2021-10-14 15:45] VITALS: BP 132/60; PULSE 78; RESP 16; TEMP 97.9
--- NOTE | 2021-10-14 17:49 | ED ---
General Adult HPI - General Chief complaint: Recheck/Abnormal Lab/Rx Stated complaint: Generalized pain Time Seen by Provider: 10/14/21 17:18 Source: patient, RN notes reviewed Mode of arrival: ambulatory Limitations: no limitations - History of Present Illness Initial comments: 36-year-old female presents to the emergency Department with complaints of generalized pain that is not localized to one area nor triggered by any specific event. Patient states she has chronic pain and is hoping to get set up with hospice services via her PCP next week. Patient denies fever, chills, anxiety, dizziness, shortness of breath, difficulty ambulating, or any change from baseline aside from exacerbation of pain today. - Related Data Home Medications Medication Instructions Recorded Confirmed Warfarin [Coumadin] 5 mg PO HS 07/25/19 09/13/21 Metoprolol Tartrate [Lopressor] 25 mg PO HS 07/30/21 09/13/21 Ondansetron [Zofran] 4 mg PO DAILY PRN 07/30/21 09/13/21 Acetaminophen Tab [Tylenol Tab] 1,000 mg PO Q6HR PRN 09/13/21 09/13/21 Loperamide HCl [Imodium A-D] 2 mg PO DIRECTED 09/13/21 09/13/21 Previous Rx's Medication Instructions Recorded cloNIDine HCL [Kapvay] 0.1 mg PO Q12HR PRN #10 tab 09/19/21 Allergies Allergy/AdvReac Type Severity Reaction Status Date / Time chlordiazepoxide HCl Allergy SEE COMMENT Verified 10/14/21 15:45 [From Librium] Penicillins Allergy Rash/Hives Verified 10/14/21 15:45 ketorolac [From Toradol] AdvReac ANXIETY Verified 10/14/21 15:45 morphine AdvReac Unknown Verified 10/14/21 15:45 prochlorperazine edisylate AdvReac PANIC Verified 10/14/21 15:45 [From Compazine] ATTACK prochlorperazine maleate AdvReac PANIC Verified 10/14/21 15:45 [From Compazine] ATTACK Review of Systems ROS Statement: Those systems with pertinent positive or pertinent negative responses have been documented in the HPI. ROS Other: All systems not noted in ROS Statement are negative. Past Medical History Past Medical History: Heart Failure, CVA/TIA, Liver Disease, Neurologic Disorder, Osteoarthritis (OA), Pneumonia, Seizure Disorder Additional Past Medical History / Comment(s): Stroke with residual right-sided weakness 2017, TIAs, marfan's syndrome, ArnoldChiari malformation, spontaneous pneumothorax x 21, scoliosis and pectus excavatum secondary to Marfan's, chronic back pain, bilateral leg pain, gastric ulcers, sinus infections, STATED HAS POOR CIRCULATION, viral meningitis, HEP C. 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 spleenectomy 2018, L upper lobectomy d/t pneumothoraxs. Past Anesthesia/Blood Transfusion Reactions: No Reported Reaction Past Psychological History: Anxiety Smoking Status: Current every day smoker Past Alcohol Use History: None Reported Past Drug Use History: Marijuana, Prescription Drug Abuse - Past Family History Father Additional Family Medical History / Comment(s): Father is with history of AIDS. Mother Family Medical History: Diabetes Mellitus Additional Family Medical History / Comment(s): Mother at age 49 from liver cirrhosis secondary to alcohol abuse. Brother(s) Additional Family Medical History / Comment(s): Patient has one brother with no major medical problems. General Exam Limitations: no limitations General appearance: alert, in no apparent distress (This is a frail, poorly nourished female who presents to the emergency department in no acute distress. Initial temperature 97.9, pulse 78, respirations 16, blood pressure 132/60, pulse ox 99% on room air.) ENT exam: Present: normal exam, normal oropharynx, mucous membranes moist Respiratory exam: Present: normal lung sounds bilaterally, other. Absent: respiratory distress, wheezes, rales, rhonchi, stridor, chest wall tenderness, accessory muscle use Cardiovascular Exam: Present: regular rate, normal rhythm GI/Abdominal exam: Present: soft, normal bowel sounds. Absent: distended, tenderness, guarding Neurological exam: Present: alert, oriented X3, CN II-XII intact Psychiatric exam: Present: flat affect Skin exam: Present: warm, dry, intact, normal color Course Vital Signs 10/14/21 15:42 Temperature 97.9 F Pulse Rate 78 Respiratory 16 Rate Blood Pressure 132/60 O2 Sat by Pulse 99 Oximetry - Reevaluation(s) Reevaluation #1: 10/14/21 17:42 Called and spoke with public guardian's office, Maggie, regarding third-hand message of needing a full workup for half-way placement. Upon further clarification, the goal is to obtain fdc placement for this patient by means of hospital admission. Explained that this was not likely to happen as patient would not meet inpatient criteria as her complaints are vague and nonspecific. 10/14/21 17:45 Discussed history of heroin abuse and current use of Suboxone purchased off the street. Explained that these were factors concerning for prescribing any type of controlled substances. Offered a single [place] for pain while present in the emergency department but explained that I would not be willing to write her a prescription for medications that had the potential for abuse. Patient does have tramadol at home she is able to take. Medical Decision Making - Medical Decision Making 36-year-old female with a complicated past medical history including heart failure, liver disease, previous CVA, Marfan syndrome, Arnold-Chiari malformation, CABG, chronic pain, and drug abuse presents to the emergency department for evaluation. Upon arrival, patient is able to move freely and answer questions appropriately. Denies any use of Suboxone or illicit drugs other than marijuana since her last visit on the fourth. States she is hurting all over but is unable to localize any one area. Triage note articulates request from public guardian's office to have a full medical workup an effort to obtain fdc placement for patient. I did speak with the public guardian explaining that due to patient's disinterest in staying and lack of bed availability, this would not be the most appropriate means by which to do this. I also spoke with the patient about this prospect and she states that she is willing to follow up with her PCP on the as scheduled and is interested in initiating hospice care. I also discussed a plan for treating patient's pain as I was concerned about her recent use of Suboxone by purchasing off the street. Explained that he was willing to give her one [place] while present in the emergency department, but would want her to continue her home medication regimen for pain control and to follow-up as scheduled. Patient was agreeable with this plan. She was discharged home with return parameters. This patient's care was discussed with my attending Dr. Franco. Disposition Clinical Impression: Chronic pain Disposition: HOME SELF-CARE Condition: Stable Instructions (If sedation given, give patient instructions): Chronic Pain (ED) Additional Instructions: Continue your home medications as prescribed. Follow-up with Mony Limon as scheduled on the . Return to the emergency department with any new, worsening, or concerning symptoms. Is patient prescribed a controlled substance at d/c from ED?: No Referrals: [facility] [Primary Care Provider] - 1-2 days Time of Disposition: 18:15
[2021-10-14] MEDS ORDERED: HYDROcodone/APAP 7.5-325MG 1 EACH TAB PO ONE (18:12)
== END 2021-10-14 18:28 | disposition home or self-care (01) ==
LOC: EC 15:02
DX: G89.29 Other chronic pain (principal); R10.84 Generalized abdominal pain; F17.200 Nicotine dependence, unspecified, uncomplicated; I50.9 Heart failure, unspecified; M19.90 Unspecified osteoarthritis, unspecified site; Z95.1 Presence of aortocoronary bypass graft; Z88.8 Allergy status to other drugs, medicaments and biological substances; Z88.1 Allergy status to other antibiotic agents; Z88.0 Allergy status to penicillin; Z88.6 Allergy status to analgesic agent; Z88.5 Allergy status to narcotic agent; Z79.899 Other long term (current) drug therapy; Z86.73 Personal history of transient ischemic attack (TIA), and cerebral infarction without residual deficits
CPT/HCPCS: 99283

== ENCOUNTER 2021-10-19 05:26 | Emergency (ER) | payer OTHER ==
[2021-10-19 05:42] VITALS: PULSE 73; RESP 18
[2021-10-19] MEDS ORDERED: HYDROmorphone 1 MG/ML 1 ML SYRINGE IM STA (06:11)
--- NOTE | 2021-10-19 06:19 | ED ---
Back Pain HPI - General Chief Complaint: Back Pain/Injury Stated Complaint: Pain All Over Time Seen by Provider: 10/19/21 05:58 Source: patient Mode of arrival: ambulatory Limitations: no limitations - History of Present Illness Initial Comments: This is a 36 year old female who presents to the emergency department stating she has pain all over. This patient is well known to this emergency department for chronic pain associated with multiple comorbidities. States that this is constant and not any worse than usual. Denies any localization of pain or t riggering events. Denies any illicit drug use other than her chronic marijuana use. States that she plans to see her primary care provider today, and discuss hospice care. States that she just can't take this anymore. Denies any SOB or chest pressure. MD Complaint: other (Generalized pain) Similar Symptoms Previously: Yes - Related Data Home Medications Medication Instructions Recorded Confirmed Warfarin [Coumadin] 5 mg PO HS 07/25/19 09/13/21 Metoprolol Tartrate [Lopressor] 25 mg PO HS 07/30/21 09/13/21 Ondansetron [Zofran] 4 mg PO DAILY PRN 07/30/21 09/13/21 Acetaminophen Tab [Tylenol Tab] 1,000 mg PO Q6HR PRN 09/13/21 09/13/21 Loperamide HCl [Imodium A-D] 2 mg PO DIRECTED 09/13/21 09/13/21 Previous Rx's Medication Instructions Recorded cloNIDine HCL [Kapvay] 0.1 mg PO Q12HR PRN #10 tab 09/19/21 Allergies Allergy/AdvReac Type Severity Reaction Status Date / Time chlordiazepoxide HCl Allergy SEE COMMENT Verified 10/18/21 15:50 [From Librium] Penicillins Allergy Rash/Hives Verified 10/18/21 15:50 ketorolac [From Toradol] AdvReac ANXIETY Verified 10/18/21 15:50 morphine AdvReac Unknown Verified 10/18/21 15:50 prochlorperazine edisylate AdvReac PANIC Verified 10/18/21 15:50 [From Compazine] ATTACK prochlorperazine maleate AdvReac PANIC Verified 10/18/21 15:50 [From Compazine] ATTACK Review of Systems ROS Statement: Those systems with pertinent positive or pertinent negative responses have been documented in the HPI. ROS Other: All systems not noted in ROS Statement are negative. Constitutional: Denies: fever, chills Respiratory: Reports: cough (chronic) Cardiovascular: Denies: chest pain, dyspnea on exertion Gastrointestinal: Denies: abdominal pain, nausea, vomiting Genitourinary: Denies: urgency, dysuria Musculoskeletal: Reports: back pain Neurological: Denies: headache Past Medical History Past Medical History: Heart Failure, CVA/TIA, Liver Disease, Neurologic Disorder, Osteoarthritis (OA), Pneumonia, Seizure Disorder Additional Past Medical History / Comment(s): Stroke with residual right-sided weakness 2017, TIAs, marfan's syndrome, ArnoldChiari malformation, spontaneous pneumothorax x 21, scoliosis and pectus excavatum secondary to Marfan's, chronic back pain, bilateral leg pain, gastric ulcers, sinus infections, STATED HAS POOR CIRCULATION, viral meningitis, HEP C. History of Any Multi-Drug Resistant Organisms: MRSA Date of last positivie culture/infection: 05/05/2010 MDRO Source:: back per patient Past Surgical History: Cardiac Valve Replacement, Coronary Bypass/CABG, Joint Replacement Additional Past Surgical History / Comment(s): right foot corrective surgery, R shoulder surgery following injury, CABG x4 vessel, aortic root graft, aortic/mitral valve replaced as child (2 separate surgeries last 10 years old), b il lens removed. spleenectomy 2018, L upper lobectomy d/t pneumothoraxs. Past Anesthesia/Blood Transfusion Reactions: No Reported Reaction Past Psychological History: Anxiety Smoking Status: Current every day smoker Past Alcohol Use History: None Reported Past Drug Use History: Marijuana, Prescription Drug Abuse - Past Family History Father Additional Family Medical History / Comment(s): Father is with history of AIDS. Mother Family Medical History: Diabetes Mellitus Additional Family Medical History / Comment(s): Mother at age 49 from liver cirrhosis secondary to alcohol abuse. Brother(s) Additional Family Medical History / Comment(s): Patient has one brother with no major medical problems. General Exam Limitations: no limitations General appearance: alert, in distress, other (This is a frail and malnourished female.) Head exam: Present: atraumatic, normocephalic, normal inspection Respiratory exam: Present: other (Rales in the right upper and lower lobes. ). Absent: chest wall tenderness, accessory muscle use Cardiovascular Exam: Present: regular rate, normal rhythm, clicks (noted to be chronic from prior exams), other (S1 and S2 (noted to be chronic from prior exams), no chest wall tenderness. ) GI/Abdominal exam: Present: soft, normal bowel sounds. Absent: distended, tenderness Back exam: Present: other (Severe kyphosis and scoliosis). Absent: normal inspection, tenderness Neurological exam: Present: alert, oriented X3, CN II-XII intact Psychiatric exam: Present: flat affect Skin exam: Present: warm, dry, intact, normal color. Absent: rash Course Vital Signs 10/19/21 05:36 Temperature 97.8 F Pulse Rate 73 Respiratory 18 Rate Blood Pressure 150/77 O2 Sat by Pulse 99 Oximetry Medical Decision Making - Medical Decision Making Given the patient's chronic pain due to terminal condition and multiple comorbidities, Dilauded 1mg was provided. Patient also denied any recent ilicit drug use other than her chronic marijuana use. Physical exam findings did reveal right sided rales in the upper and lower lung lobes. Patient does have chronic cardiac and pulmonary conditions, however a CXR was obtained to rule out any acute changes and was found to be negative. Patient stable for discharge home. Instructed her to keep her appointment with her PCP to discuss hospice arrangements. Return precautions reviewed in depth, the patient is instructed to return to the emergency department if symptoms worsen or do not improve. Patient verbalized understanding. Disposition Clinical Impression: Chronic pain, Thoracic back pain Disposition: HOME SELF-CARE Condition: Stable Additional Instructions: Return to the emergency department if symptoms worsen or do not improve. Follow up with primary care provider as scheduled today to discuss hospice arrangement s. Continue to avoid illicit drug use. Is patient prescribed a controlled substance at d/c from ED?: No Referrals: [facility] [Primary Care Provider] - 1-2 days
--- NOTE | 2021-10-19 06:27 | XR ---
EXAMINATION TYPE: XR chest 2V DATE OF EXAM: 10/19/2021 COMPARISON: Chest x-ray September 28, 2021 and older studies HISTORY: Abnormal physical exam, Rales in right lung. TECHNIQUE: Frontal and lateral views of the chest are obtained. FINDINGS: Redemonstration of underlying S-shaped rotary scoliosis. Overlying sternal wires redemonstr ated. Partial visualization of surgical change right shoulder. Exaggerated thoracic kyphosis centered near the thoracolumbar junction with ossific fusion at this level redemonstrated. Distortion of normal anatomy again seen. No suspicious new focal airspace opacity, pleural effusion, or pneumothorax seen bilaterally. Persistent cardiomegaly with ectatic thoracic aorta. Surgical sutur es left upper lung redemonstrated. IMPRESSION: Chronic changes and cardiomegaly without acute pulmonary process. No significant change from prior.
[2021-10-19 07:27] VITALS: BP 120/80; TEMP 97.7
== END 2021-10-19 07:27 | disposition home or self-care (01) ==
LOC: EC 05:26
DX: G89.29 Other chronic pain (principal); M54.6 Pain in thoracic spine; F17.200 Nicotine dependence, unspecified, uncomplicated; M19.90 Unspecified osteoarthritis, unspecified site; I50.9 Heart failure, unspecified; Z86.73 Personal history of transient ischemic attack (TIA), and cerebral infarction without residual deficits; Z79.899 Other long term (current) drug therapy; Z88.0 Allergy status to penicillin; Z88.6 Allergy status to analgesic agent; Z88.8 Allergy status to other drugs, medicaments and biological substances; Z88.5 Allergy status to narcotic agent; Z79.01 Long term (current) use of anticoagulants
CPT/HCPCS: 71046; 99283; 96372; J1170

== ENCOUNTER 2021-10-22 13:15 | Emergency (ER) | payer OTHER ==
[2021-10-22 13:20] VITALS: BP 154/69; PULSE 74; RESP 18; TEMP 98
--- NOTE | 2021-10-22 13:40 | ED ---
General Adult HPI - General Chief complaint: Chest Pain Stated complaint: Chest pain Time Seen by Provider: 10/22/21 13:26 Source: patient, EMS, RN notes reviewed Mode of arrival: EMS Limitations: no limitations - History of Present Illness Initial comments: Patient is a 36-year-old female presenting to the emergency Department with chronic chest discomfort. Patient states this is her chronic chest pain, no different from normal. When questioned why patient came today she states she wants medications to be comfortable. Patient states this is chronic and unchanged. Patient unable to describe the type of discomfort that she has. No associated dyspnea. No vomiting. No sweating. - Related Data Home Medications Medication Instructions Recorded Confirmed Warfarin [Coumadin] 5 mg PO HS 07/25/19 09/13/21 Metoprolol Tartrate [Lopressor] 25 mg PO HS 07/30/21 09/13/21 Ondansetron [Zofran] 4 mg PO DAILY PRN 07/30/21 09/13/21 Acetaminophen Tab [Tylenol Tab] 1,000 mg PO Q6HR PRN 09/13/21 09/13/21 Loperamide HCl [Imodium A-D] 2 mg PO DIRECTED 09/13/21 09/13/21 Previous Rx's Medication Instructions Recorded cloNIDine HCL [Kapvay] 0.1 mg PO Q12HR PRN #10 tab 09/19/21 Allergies Allergy/AdvReac Type Severity Reaction Status Date / Time chlordiazepoxide HCl Allergy SEE COMMENT Verified 10/22/21 13:20 [From Librium] Penicillins Allergy Rash/Hives Verified 10/22/21 13:20 ketorolac [From Toradol] AdvReac ANXIETY Verified 10/22/21 13:20 morphine AdvReac Unknown Verified 10/22/21 13:20 prochlorperazine edisylate AdvReac PANIC Verified 10/22/21 13:20 [From Compazine] ATTACK prochlorperazine maleate AdvReac PANIC Verified 10/22/21 13:20 [From Compazine] ATTACK Review of Systems ROS Statement: Those systems with pertinent positive or pertinent negative responses have been documented in the HPI. ROS Other: All systems not noted in ROS Statement are negative. Constitutional: Denies: fever Eyes: Denies: eye pain ENT: Denies: ear pain Respiratory: Denies: cough Cardiovascular: Reports: as per HPI, chest pain Endocrine: Denies: fatigue Gastrointestinal: Denies: abdominal pain Genitourinary: Denies: dysuria Musculoskeletal: Denies: back pain Skin: Denies: rash Neurological: Denies: weakness Past Medical History Past Medical History: Heart Failure, CVA/TIA, Liver Disease, Neurologic Disorder, Osteoarthritis (OA), Pneumonia, Seizure Disorder Additional Past Medical History / Comment(s): Stroke with residual right-sided weakness 2017, TIAs, marfan's syndrome, ArnoldChiari malformation, spontaneous pneumothorax x 21, scoliosis and pectus excavatum secondary to Marfan's, chronic back pain, bilateral leg pain, gastric ulcers, sinus infections, STATED HAS POOR CIRCULATION, viral meningitis, HEP C. 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 spleenectomy 2018, L upper lobectomy d/t pneumothoraxs. Past Anesthesia/Blood Transfusion Reactions: No Reported Reaction Past Psychological History: Anxiety Smoking Status: Current every day smoker Past Alcohol Use History: None Reported Past Drug Use History: Marijuana, Prescription Drug Abuse - Past Family History Father Additional Family Medical History / Comment(s): Father is with history of AIDS. Mother Family Medical History: Diabetes Mellitus Additional Family Medical History / Comment(s): Mother at age 49 from liver cirrhosis secondary to alcohol abuse. Brother(s) Additional Family Medical History / Comment(s): Patient has one brother with no major medical problems. General Exam Limitations: no limitations General appearance: alert, in no apparent distress Head exam: Present: atraumatic Neck exam: Present: normal inspection Respiratory exam: Present: normal lung sounds bilaterally Cardiovascular Exam: Present: regular rate, normal rhythm, systolic murmur Expanded Peripheral pulses: 2+: Radial (R), Radial (L), Posterior Tibialis (R), Posterior Tibialis (L) GI/Abdominal exam: Present: soft. Absent: tenderness Extremities exam: Present: normal inspection. Absent: pedal edema, calf tenderness Neurological exam: Present: alert Psychiatric exam: Present: flat affect Skin exam: Present: normal color Course Vital Signs 10/22/21 13:17 Temperature 98 F Pulse Rate 74 Respiratory 18 Rate Blood Pressure 154/69 O2 Sat by Pulse 99 Oximetry Medical Decision Making - Medical Decision Making Patient refuses further evaluation and only wants narcotics. Patient will leave AGAINST MEDICAL ADVICE Disposition Clinical Impression: Chronic pain Disposition: Left Against Medical Advice Instructions (If sedation given, give patient instructions): Chest Pain (ED) Additional Instructions: Please follow-up with your primary care physician in the next day or 2 for recheck. Return for change in symptoms, worsening symptoms, difficulty breathing, fevers, or other concerns Is patient prescribed a controlled substance at d/c from ED?: No Referrals: [facility] [Primary Care Provider] - 1-2 days Time of Disposition: 13:39
== END 2021-10-22 14:01 | disposition left against medical advice (07) ==
LOC: EC 13:15
DX: R07.89 Other chest pain (principal); F17.200 Nicotine dependence, unspecified, uncomplicated; I50.9 Heart failure, unspecified; M19.90 Unspecified osteoarthritis, unspecified site; Z88.1 Allergy status to other antibiotic agents; Z53.29 Procedure and treatment not carried out because of patient's decision for other reasons; Z95.1 Presence of aortocoronary bypass graft; Z86.73 Personal history of transient ischemic attack (TIA), and cerebral infarction without residual deficits; Z88.0 Allergy status to penicillin; Z88.6 Allergy status to analgesic agent; Z88.5 Allergy status to narcotic agent; Z88.8 Allergy status to other drugs, medicaments and biological substances; Z79.1 Long term (current) use of non-steroidal anti-inflammatories (NSAID); Z79.899 Other long term (current) drug therapy; Z79.01 Long term (current) use of anticoagulants
CPT/HCPCS: 99284

== ENCOUNTER 2021-10-24 05:52 | Emergency (ER) | payer OTHER ==
[2021-10-24 06:01] VITALS: BP 120/59; PULSE 103; RESP 18; TEMP 97.6
--- NOTE | 2021-10-24 06:31 | XR ---
EXAMINATION TYPE: XR chest 2V DATE OF EXAM: 10/24/2021 COMPARISON: 10/20/2021 HISTORY: Chest pain TECHNIQUE: FINDINGS: Heart is normal. Lungs are clear of consolidation. There are sternal wires. Thoracic aorta is atheromatous. There is thoracolumbar kyphotic deformity. There is plate fixing old fracture of the right humerus. There is no pleural effusion. There is no heart failure. IMPRESSION: No active cardiopulmonary disease. No adverse change compared to recent exam.
--- NOTE | 2021-10-24 06:45 | ED ---
Chest Pain HPI - General Chief Complaint: Chest Pain Stated Complaint: Chest Pain Time Seen by Provider: 10/24/21 06:02 Source: patient, EMS, RN notes reviewed Mode of arrival: EMS Limitations: physical limitation - History of Present Illness Initial Comments: 36-year-old female presents emergency Department chief complaint of chest wall pain. Patient states she's been having pain for over 3 weeks. Patient states that she's been placed in hospice secondary to her multiple comorbidities. Patient denies any increasing shortness breath patient is minute that she currently smokes. Patient denies any palpitations no headache or dizziness patient denies any GI symptoms she states she has pain along her left ribs which is chronic in nature. - Related Data Home Medications Medication Instructions Recorded Confirmed Warfarin [Coumadin] 5 mg PO HS 07/25/19 09/13/21 Metoprolol Tartrate [Lopressor] 25 mg PO HS 07/30/21 09/13/21 Ondansetron [Zofran] 4 mg PO DAILY PRN 07/30/21 09/13/21 Acetaminophen Tab [Tylenol Tab] 1,000 mg PO Q6HR PRN 09/13/21 09/13/21 Loperamide HCl [Imodium A-D] 2 mg PO DIRECTED 09/13/21 09/13/21 Previous Rx's Medication Instructions Recorded cloNIDine HCL [Kapvay] 0.1 mg PO Q12HR PRN #10 tab 09/19/21 Allergies Allergy/AdvReac Type Severity Reaction Status Date / Time chlordiazepoxide HCl Allergy SEE COMMENT Verified 10/22/21 13:20 [From Librium] Penicillins Allergy Rash/Hives Verified 10/22/21 13:20 ketorolac [From Toradol] AdvReac ANXIETY Verified 10/22/21 13:20 morphine AdvReac Unknown Verified 10/22/21 13:20 prochlorperazine edisylate AdvReac PANIC Verified 10/22/21 13:20 [From Compazine] ATTACK prochlorperazine maleate AdvReac PANIC Verified 10/22/21 13:20 [From Compazine] ATTACK Review of Systems ROS Statement: Those systems with pertinent positive or pertinent negative responses have been documented in the HPI. ROS Other: All systems not noted in ROS Statement are negative. EKG Findings - EKG Comments: EKG Findings:: EKG performed at 6:20 sinus rhythm rate of 95 pr 143 qrs 109 qt/qtc 354/406 Past Medical History Past Medical History: Heart Failure, CVA/TIA, Liver Disease, Neurologic Disorder, Osteoarthritis (OA), Pneumonia, Seizure Disorder Additional Past Medical History / Comment(s): Stroke with residual right-sided weakness 2017, TIAs, marfan's syndrome, ArnoldChiari malformation, spontaneous pneumothorax x 21, scoliosis and pectus excavatum secondary to Marfan's, chronic back pain, bilateral leg pain, gastric ulcers, sinus infections, STATED HAS POOR CIRCULATION, viral meningitis, HEP C. 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 spleenectomy 2018, L upper lobectomy d/t pneumothoraxs. Past Anesthesia/Blood Transfusion Reactions: No Reported Reaction Past Psychological History: Anxiety Smoking Status: Current every day smoker Past Alcohol Use History: None Reported Past Drug Use History: Marijuana, Prescription Drug Abuse - Past Family History Father Additional Family Medical History / Comment(s): Father is with history of AIDS. Mother Family Medical History: Diabetes Mellitus Additional Family Medical History / Comment(s): Mother at age 49 from liver cirrhosis secondary to alcohol abuse. Brother(s) Additional Family Medical History / Comment(s): Patient has one brother with no major medical problems. General Exam Limitations: no limitations General appearance: alert, in no apparent distress Head exam: Present: atraumatic, normocephalic, normal inspection Eye exam: Present: normal appearance, PERRL, EOMI. Absent: scleral icterus, conjunctival injection, periorbital swelling ENT exam: Present: normal exam, normal oropharynx, mucous membranes moist Neck exam: Present: normal inspection, full ROM. Absent: tenderness, meningismus, lymphadenopathy Respiratory exam: Present: normal lung sounds bilaterally, chest wall tenderness. Absent: respiratory distress, wheezes, rales, rhonchi, stridor Cardiovascular Exam: Present: regular rate, normal rhythm, normal heart sounds. Absent: systolic murmur, diastolic murmur, rubs, gallop, clicks Back exam: Present: tenderness. Absent: normal inspection (Chronic deformities, scoliosis, kyphosis), full ROM Neurological exam: Present: alert Course Vital Signs 10/24/21 05:57 Temperature 97.6 F Pulse Rate 103 H Respiratory 18 Rate Blood Pressure 120/59 O2 Sat by Pulse 99 Oximetry Chest Pain MDM - MDM Patient's chest x-ray, EKG showed no acute changes. This chronic pain in nature. Patient discharged in stable condition discussed. Disposition Clinical Impression: Chronic pain, Chest wall pain Disposition: HOME SELF-CARE Condition: Stable Instructions (If sedation given, give patient instructions): Chest Pain (ED) Additional Instructions: Please return to the Emergency Department if symptoms worsen or any other concerns. Is patient prescribed a controlled substance at d/c from ED?: No Referrals: [facility] [Primary Care Provider] - 1-2 days Time of Disposition: 06:47
== END 2021-10-24 07:03 | disposition home or self-care (01) ==
LOC: EC 05:52
DX: G89.29 Other chronic pain (principal); R07.89 Other chest pain; F17.200 Nicotine dependence, unspecified, uncomplicated; Z88.8 Allergy status to other drugs, medicaments and biological substances; Z88.0 Allergy status to penicillin; Z88.6 Allergy status to analgesic agent; Z88.9 Allergy status to unspecified drugs, medicaments and biological substances
CPT/HCPCS: 71046; 93005

== ENCOUNTER 2021-11-01 10:19 | Emergency (ER) | payer OTHER ==
[2021-11-01 10:38] VITALS: RESP 18; TEMP 98.3
--- NOTE | 2021-11-01 11:04 | XR ---
EXAMINATION TYPE: XR chest 2V DATE OF EXAM: 11/01/2021 COMPARISON: 10/24/2021 INDICATION: Chest pain TECHNIQUE: Single frontal view of the chest is obtained. FINDINGS: The heart size is normal. The pulmonary vasculature is normal. The lungs are clear. Postsurgical changes at the left apex. Scoliosis is present. Sternotomy wires are present. Nipple shadows at the right lung base. No signifi cant change from comparison. Thoracic kyphosis present at the diaphragm. IMPRESSION: 1. No acute pulmonary process. 2. Senile emphysematous changes
--- NOTE | 2021-11-01 11:50 | ED ---
Chest Pain HPI - General Chief Complaint: Chest Pain Stated Complaint: Chest Pain Time Seen by Provider: 11/01/21 10:23 Source: patient, EMS, RN notes reviewed Mode of arrival: EMS Limitations: no limitations - History of Present Illness Initial Comments: 36-year-old female presents emergency Department with chief complaint of chest wall pain. This is been ongoing for several weeks to months now. This is unchanged from normal baseline. Patient states that she is still scheduled to go on hospice for chronic illnesses. She continues to smoke and states that she feels occasionally short of breath. Patient is requesting narcotic pain medications. Patient denies any nausea vomiting diarrhea constipation. Patient does have chronic pain issues. - Related Data Home Medications Medication Instructions Recorded Confirmed Warfarin [Coumadin] 5 mg PO HS 07/25/19 09/13/21 Metoprolol Tartrate [Lopressor] 25 mg PO HS 07/30/21 09/13/21 Ondansetron [Zofran] 4 mg PO DAILY PRN 07/30/21 09/13/21 Acetaminophen Tab [Tylenol Tab] 1,000 mg PO Q6HR PRN 09/13/21 09/13/21 Loperamide HCl [Imodium A-D] 2 mg PO DIRECTED 09/13/21 09/13/21 Previous Rx's Medication Instructions Recorded cloNIDine HCL [Kapvay] 0.1 mg PO Q12HR PRN #10 tab 09/19/21 Allergies Allergy/AdvReac Type Severity Reaction Status Date / Time chlordiazepoxide HCl Allergy SEE COMMENT Verified 10/25/21 15:00 [From Librium] Penicillins Allergy Rash/Hives Verified 10/25/21 15:00 ketorolac [From Toradol] AdvReac ANXIETY Verified 10/25/21 15:00 morphine AdvReac Unknown Verified 10/25/21 15:00 prochlorperazine edisylate AdvReac PANIC Verified 10/25/21 15:00 [From Compazine] ATTACK prochlorperazine maleate AdvReac PANIC Verified 10/25/21 15:00 [From Compazine] ATTACK Review of Systems ROS Statement: Those systems with pertinent positive or pertinent negative responses have been documented in the HPI. ROS Other: All systems not noted in ROS Statement are negative. EKG Findings - EKG Comments: EKG Findings:: EKG performed at time: 29 sinus rhythm with rate of 80 NM 151 QRS 112 QTC is QTC 395/4:30 Past Medical History Past Medical History: Heart Failure, CVA/TIA, Liver Disease, Neurologic Disorder, Osteoarthritis (OA), Pneumonia, Seizure Disorder Additional Past Medical History / Comment(s): Stroke with residual right-sided weakness 2017, TIAs, marfan's syndrome, ArnoldChiari malformation, spontaneous pneumothorax x 21, scoliosis and pectus excavatum secondary to Marfan's, chronic back pain, bilateral leg pain, gastric ulcers, sinus infections, STATED HAS POOR CIRCULATION, viral meningitis, HEP C. 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 spleenectomy 2018, L upper lobectomy d/t pneumothoraxs. Past Anesthesia/Blood Transfusion Reactions: No Reported Reaction Past Psychological History: Anxiety Smoking Status: Current every day smoker Past Alcohol Use History: None Reported Past Drug Use History: Marijuana, Prescription Drug Abuse - Past Family History Father Additional Family Medical History / Comment(s): Father is with history of AIDS. Mother Family Medical History: Diabetes Mellitus Additional Family Medical History / Comment(s): Mother at age 49 from liver cirrhosis secondary to alcohol abuse. Brother(s) Additional Family Medical History / Comment(s): Patient has one brother with no major medical problems. General Exam Limitations: no limitations General appearance: alert, in no apparent distress, cachectic Head exam: Present: atraumatic, normocephalic, normal inspection Eye exam: Present: normal appearance, PERRL, EOMI. Absent: scleral icterus, conjunctival injection, periorbital swelling ENT exam: Present: mucous membranes moist. Absent: normal exam, normal oropharynx (Poor dentition) Neck exam: Present: normal inspection. Absent: tenderness, meningismus, lymphadenopathy Respiratory exam: Present: wheezes. Absent: normal lung sounds bilaterally, respiratory distress, rales, rhonchi, stridor Cardiovascular Exam: Present: regular rate, normal rhythm, normal heart sounds. Absent: systolic murmur, diastolic murmur, rubs, gallop, clicks GI/Abdominal exam: Present: soft, normal bowel sounds. Absent: distended, ten derness, guarding, rebound, rigid Back exam: Absent: normal inspection, full ROM Course Vital Signs 11/01/21 10:35 Temperature 98.3 F Pulse Rate 84 Respiratory 18 Rate Blood Pressure 156/85 O2 Sat by Pulse 99 Oximetry Chest Pain MDM - MDM X-ray and EKG was performed patient symptoms are chronic in nature. She is requesting pain medications and states that she needs to be discharged has a ride is leaving. She does understand the risk of leaving return parameters were discussed. Disposition Clinical Impression: Chest wall pain, Chronic pain Disposition: HOME SELF-CARE Condition: Stable Instructions (If sedation given, give patient instructions): Chest Pain (ED) Additional Instructions: Please return to the Emergency Department if symptoms worsen or any other concerns. Is patient prescribed a controlled substance at d/c from ED?: No Referrals: None,Stated [Primary Care Provider] - 1-2 days Time of Disposition: 11:50
[2021-11-01 12:15] VITALS: BP 144/84; PULSE 80
== END 2021-11-01 12:14 | disposition home or self-care (01) ==
LOC: EC 10:19
DX: G89.29 Other chronic pain (principal); R07.89 Other chest pain; F17.200 Nicotine dependence, unspecified, uncomplicated; Z88.0 Allergy status to penicillin; Z88.8 Allergy status to other drugs, medicaments and biological substances; Z88.6 Allergy status to analgesic agent; Z88.9 Allergy status to unspecified drugs, medicaments and biological substances
CPT/HCPCS: 71046; 93005; 99285

== ENCOUNTER 2021-11-06 10:58 | Emergency (ER) | payer OTHER ==
[2021-11-06 11:06] VITALS: BP 129/71; PULSE 76; RESP 18; TEMP 98.6
--- NOTE | 2021-11-06 11:46 | ED ---
General Adult HPI - General Chief complaint: Chest Pain Stated complaint: Chest pain with cough Time Seen by Provider: 11/06/21 11:03 Source: patient, EMS, RN notes reviewed Mode of arrival: ambulatory Limitations: no limitations - History of Present Illness Initial comments: Patient is a 36-year-old female presenting to the emergency department for chr onic pain. Patient states she does have chest pain. Patient states this is daily and unchanged. Patient denies any recent cough. Patient denies any dyspnea. Patient hesitant to provide any further information. - Related Data Home Medications Medication Instructions Recorded Confirmed Warfarin [Coumadin] 5 mg PO HS 07/25/19 09/13/21 Metoprolol Tartrate [Lopressor] 25 mg PO HS 07/30/21 09/13/21 Ondansetron [Zofran] 4 mg PO DAILY PRN 07/30/21 09/13/21 Acetaminophen Tab [Tylenol Tab] 1,000 mg PO Q6HR PRN 09/13/21 09/13/21 Loperamide HCl [Imodium A-D] 2 mg PO DIRECTED 09/13/21 09/13/21 Previous Rx's Medication Instructions Recorded cloNIDine HCL [Kapvay] 0.1 mg PO Q12HR PRN #10 tab 09/19/21 Allergies Allergy/AdvReac Type Severity Reaction Status Date / Time chlordiazepoxide HCl Allergy SEE COMMENT Verified 11/06/21 11:06 [From Librium] Penicillins Allergy Rash/Hives Verified 11/06/21 11:06 ketorolac [From Toradol] AdvReac ANXIETY Verified 11/06/21 11:06 morphine AdvReac Unknown Verified 11/06/21 11:06 prochlorperazine edisylate AdvReac PANIC Verified 11/06/21 11:06 [From Compazine] ATTACK prochlorperazine maleate AdvReac PANIC Verified 11/06/21 11:06 [From Compazine] ATTACK Review of Systems ROS Statement: Those systems with pertinent positive or pertinent negative responses have been documented in the HPI. ROS Other: All systems not noted in ROS Statement are negative. Cardiovascular: Reports: as per HPI, chest pain Past Medical History Past Medical History: Heart Failure, CVA/TIA, Liver Disease, Neurologic Disorder, Osteoarthritis (OA), Pneumonia, Seizure Disorder Additional Past Medical History / Comment(s): Stroke with residual right-sided weakness 2016, TIAs, marfan's syndrome, ArnoldChiari malformation, spontaneous pneumothorax x 21, scoliosis and pectus excavatum secondary to Marfan's, chronic back pain, bilateral leg pain, gastric ulcers, sinus infections, STATED HAS POOR CIRCULATION, viral meningitis, HEP C. 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 spleenectomy 2018, L upper lobectomy d/t pneumothoraxs. Past Anesthesia/Blood Transfusion Reactions: No Reported Reaction Past Psychological History: Anxiety Smoking Status: Current every day smoker Past Alcohol Use History: None Reported Past Drug Use History: Marijuana, Prescription Drug Abuse - Past Family History Father Additional Family Medical History / Comment(s): Father is with history of AIDS. Mother Family Medical History: Diabetes Mellitus Additional Family Medical History / Comment(s): Mother at age 49 from liver cirrhosis secondary to alcohol abuse. Brother(s) Additional Family Medical History / Comment(s): Patient has one brother with no major medical problems. General Exam Limitations: no limitations General appearance: alert, in no apparent distress Head exam: Present: atraumatic Eye exam: Present: normal appearance Respiratory exam: Present: normal lung sounds bilaterally Cardiovascular Exam: Present: regular rate, normal rhythm, systolic murmur Expanded Peripheral pulses: 2+: Radial (R), Radial (L), Posterior Tibialis (R), Posterior Tibialis (L) Extremities exam: Present: normal inspection Neurological exam: Present: alert Psychiatric exam: Present: flat affect Skin exam: Present: normal color Course Vital Signs 11/06/21 11:03 Temperature 98.6 F Pulse Rate 76 Respiratory 18 Rate Blood Pressure 129/71 O2 Sat by Pulse 99 Oximetry Medical Decision Making - Medical Decision Making Patient refuses any further diagnostic testing or evaluation Disposition Clinical Impression: Chronic pain Disposition: Left Against Medical Advice Instructions (If sedation given, give patient instructions): Chest Pain (ED), Chronic Pain (ED) Additional Instructions: You are leaving AGAINST MEDICAL ADVICE. Please follow-up with your primary doctor within the next day or 2 for recheck. Return for worsening or change in symptoms. Is patient prescribed a controlled substance at d/c from ED?: No Referrals: [facility] [Primary Care Provider] - 1-2 days Time of Disposition: 11:45
== END 2021-11-06 12:03 | disposition left against medical advice (07) ==
LOC: EC 10:58
DX: G89.29 Other chronic pain (principal); Z88.0 Allergy status to penicillin; Z88.8 Allergy status to other drugs, medicaments and biological substances; Z88.6 Allergy status to analgesic agent; Z88.9 Allergy status to unspecified drugs, medicaments and biological substances

== ENCOUNTER 2021-11-09 09:12 | Emergency (ER) | payer OTHER ==
--- NOTE | 2021-11-09 09:20 | ED ---
General Adult HPI - General Stated complaint: Pain Time Seen by Provider: 11/09/21 09:13 Source: patient, EMS Mode of arrival: EMS Limitations: no limitations - History of Present Illness Initial comments: Patient is a 36-year-old female returning to the emergency Department with chronic pain complaints. Patient states everything hurts. Patient states at no patient's 4 U and I would like to leave. Patient does request paperwork. Patient denies any new symptoms. Patient is offered diagnostic testing however refuses. Patient is mildly agitated. - Related Data Home Medications Medication Instructions Recorded Confirmed Warfarin [Coumadin] 5 mg PO HS 07/25/19 09/13/21 Metoprolol Tartrate [Lopressor] 25 mg PO HS 07/30/21 09/13/21 Ondansetron [Zofran] 4 mg PO DAILY PRN 07/30/21 09/13/21 Acetaminophen Tab [Tylenol Tab] 1,000 mg PO Q6HR PRN 09/13/21 09/13/21 Loperamide HCl [Imodium A-D] 2 mg PO DIRECTED 09/13/21 09/13/21 Previous Rx's Medication Instructions Recorded cloNIDine HCL [Kapvay] 0.1 mg PO Q12HR PRN #10 tab 09/19/21 Allergies Allergy/AdvReac Type Severity Reaction Status Date / Time chlordiazepoxide HCl Allergy SEE COMMENT Verified 11/06/21 11:06 [From Librium] Penicillins Allergy Rash/Hives Verified 11/06/21 11:06 ketorolac [From Toradol] AdvReac ANXIETY Verified 11/06/21 11:06 morphine AdvReac Unknown Verified 11/06/21 11:06 prochlorperazine edisylate AdvReac PANIC Verified 11/06/21 11:06 [From Compazine] ATTACK prochlorperazine maleate AdvReac PANIC Verified 11/06/21 11:06 [From Compazine] ATTACK Review of Systems ROS Statement: Those systems with pertinent positive or pertinent negative responses have been documented in the HPI. ROS Other: All systems not noted in ROS Statement are negative. Past Medical History Past Medical History: Heart Failure, CVA/TIA, Liver Disease, Neurologic Disorder, Osteoarthritis (OA), Pneumonia, Seizure Disorder Additional Past Medical History / Comment(s): Stroke with residual right-sided weakness 2017, TIAs, marfan's syndrome, ArnoldChiari malformation, spontaneous pneumothorax x 21, scoliosis and pectus excavatum secondary to Marfan's, chronic back pain, bilateral leg pain, gastric ulcers, sinus infections, STATED HAS POOR CIRCULATION, viral meningitis, HEP C. 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 spleenectomy 2018, L upper lobectomy d/t pneumothoraxs. Past Anesthesia/Blood Transfusion Reactions: No Reported Reaction Past Psychological History: Anxiety Smoking Status: Current every day smoker Past Alcohol Use History: None Reported Past Drug Use History: Marijuana, Prescription Drug Abuse - Past Family History Father Additional Family Medical History / Comment(s): Father is with history of AIDS. Mother Family Medical History: Diabetes Mellitus Additional Family Medical History / Comment(s): Mother at age 49 from liver cirrhosis secondary to alcohol abuse. Brother(s) Additional Family Medical History / Comment(s): Patient has one brother with no major medical problems. General Exam Limitations: no limitations General appearance: alert, in no apparent distress Head exam: Present: atraumatic Eye exam: Present: normal appearance Neck exam: Present: normal inspection Respiratory exam: Present: normal lung sounds bilaterally Cardiovascular Exam: Present: regular rate, normal rhythm, systolic murmur Neurological exam: Present: alert Psychiatric exam: Present: agitated (Mildly agitated) Skin exam: Present: normal color Medical Decision Making - Medical Decision Making Patient refuses any further evaluation and would like to leave. Disposition Clinical Impression: Chronic pain Disposition: Left Against Medical Advice Instructions (If sedation given, give patient instructions): Chronic Pain (ED) Additional Instructions: Please do follow-up with your primary care physician as soon as possible, preferably today or tomorrow. Return for worsening or changing symptoms or other concerns or desire for further testing. Is patient prescribed a controlled substance at d/c from ED?: No Referrals: [facility] [Primary Care Provider] - 1-2 days Time of Disposition: 09:19
== END 2021-11-09 09:34 | disposition left against medical advice (07) ==
LOC: EC 09:12
DX: G89.29 Other chronic pain (principal); Z86.73 Personal history of transient ischemic attack (TIA), and cerebral infarction without residual deficits; Z88.0 Allergy status to penicillin; Z88.8 Allergy status to other drugs, medicaments and biological substances; Z88.6 Allergy status to analgesic agent
CPT/HCPCS: 99283

== ENCOUNTER 2021-11-14 19:56 | Emergency (ER) | payer OTHER ==
[2021-11-14] MEDS ORDERED: ORPHENADRINE 30 MG/ML 2 ML VIAL IM STA (20:17)
--- NOTE | 2021-11-14 20:21 | ED ---
General Adult HPI - General Chief complaint: Chest Pain Stated complaint: Chest Pain Time Seen by Provider: 11/14/21 20:10 Source: patient, RN notes reviewed Mode of arrival: EMS Limitations: no limitations - History of Present Illness Initial comments: This is a 36-year-old female who is well-known to the emergency department here. Patient presents with symptoms of chronic pain. Patient states she has chronic chest wall pain as well as chronic pain in other joints. Patient states this is actually unchanged from previous. Patient requesting a testing of her INR as she states that she is over 1 week late on didn't tested. She denies any bleeding. She denies any shortness of breath. No headache, no fever or chills, no changes in vision or hearing, no sore throat or difficulty with speech, no neck pain, no chest pain or shortness of breath, no abdominal pain, no nausea or vomiting, no changes in urination or bowel mo vements, no numbness or tingling, no extremity pain, no skin rashes or lesions. - Related Data Home Medications Medication Instructions Recorded Confirmed Warfarin [Coumadin] 5 mg PO HS 07/25/19 09/13/21 Metoprolol Tartrate [Lopressor] 25 mg PO HS 07/30/21 09/13/21 Ondansetron [Zofran] 4 mg PO DAILY PRN 07/30/21 09/13/21 Acetaminophen Tab [Tylenol Tab] 1,000 mg PO Q6HR PRN 09/13/21 09/13/21 Loperamide HCl [Imodium A-D] 2 mg PO DIRECTED 09/13/21 09/13/21 Previous Rx's Medication Instructions Recorded cloNIDine HCL [Kapvay] 0.1 mg PO Q12HR PRN #10 tab 09/19/21 Allergies Allergy/AdvReac Type Severity Reaction Status Date / Time chlordiazepoxide HCl Allergy SEE COMMENT Verified 11/14/21 20:13 [From Librium] Penicillins Allergy Rash/Hives Verified 11/14/21 20:13 ketorolac [From Toradol] AdvReac ANXIETY Verified 11/14/21 20:13 morphine AdvReac Unknown Verified 11/14/21 20:13 prochlorperazine edisylate AdvReac PANIC Verified 11/14/21 20:13 [From Compazine] ATTACK prochlorperazine maleate AdvReac PANIC Verified 11/14/21 20:13 [From Compazine] ATTACK Review of Systems ROS Statement: Those systems with pertinent positive or pertinent negative responses have been documented in the HPI. ROS Other: All systems not noted in ROS Statement are negative. Past Medical History Past Medical History: Heart Failure, CVA/TIA, Liver Disease, Neurologic Disorder, Osteoarthritis (OA), Pneumonia, Seizure Disorder Additional Past Medical History / Comment(s): Stroke with residual right-sided weakness 2017, TIAs, marfan's syndrome, ArnoldChiari malformation, spontaneous pneumothorax x 21, scoliosis and pectus excavatum secondary to Marfan's, chronic back pain, bilateral leg pain, gastric ulcers, sinus infections, STATED HAS POOR CIRCULATION, viral meningitis, HEP C. 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 spleenectomy 2018, L upper lobectomy d/t pneumothoraxs. Past Anesthesia/Blood Transfusion Reactions: No Reported Reaction Past Psychological History: Anxiety Smoking Status: Current every day smoker Past Alcohol Use History: None Reported Past Drug Use History: Marijuana, Prescription Drug Abuse - Past Family History Father Additional Family Medical History / Comment(s): Father is with history of AIDS. Mother Family Medical History: Diabetes Mellitus Additional Family Medical History / Comment(s): Mother at age 49 from liver cirrhosis secondary to alcohol abuse. Brother(s) Additional Family Medical History / Comment(s): Patient has one brother with no major medical problems. General Exam - General Exam Comments Initial Comments: Cachectic appearing 36-year-old female in no acute distress. Patient does not appear to be ill or toxic. Limitations: no limitations General appearance: alert, in no apparent distress Head exam: Present: atraumatic, normocephalic, normal inspection Eye exam: Present: normal appearance, PERRL, EOMI. Absent: scleral icterus, conjunctival injection, periorbital swelling ENT exam: Present: normal exam, mucous membranes moist Neck exam: Present: normal inspection. Absent: tenderness, meningismus, lymphadenopathy Respiratory exam: Present: normal lung sounds bilaterally, chest wall tenderness, other (Severe kyphoscoliosis). Absent: respiratory distress, wheezes, rales, rhonchi, stridor, accessory muscle use Cardiovascular Exam: Present: regular rate, normal rhythm, normal heart sounds. Absent: systolic murmur, diastolic murmur, rubs, gallop, clicks GI/Abdominal exam: Present: soft, normal bowel sounds. Absent: distended, tenderness, guarding, rebound, rigid Extremities exam: Present: normal inspection, full ROM, normal capillary refill. Absent: tenderness, pedal edema, joint swelling, calf tenderness Back exam: Present: normal inspection Neurological exam: Present: alert, oriented X3, CN II-XII intact Psychiatric exam: Present: normal affect, normal mood Skin exam: Present: warm, dry, intact, normal color. Absent: rash Course Vital Signs 11/14/21 20:10 Temperature 97.8 F Pulse Rate 74 Respiratory 18 Rate Blood Pressure 150/68 O2 Sat by Pulse 97 Oximetry EKG Findings - EKG Comments: EKG Findings:: EKG done at 2018 and read by the ED attending physician reveals no significant changes from the previous study. No evidence of acute ST or T- wave changes. Nonspecific ST changes are noted which were seen on the previous study. Patient does have a widened QRS minimally at 170 ms. Normal intervals otherwise. Borderline right axis deviation. Medical Decision Making - Medical Decision Making Patient presents with symptoms related to chronic pain. No change from baseline. The case was discussed in detail with ED attending physician. Presentation, findings, treatment plan discussed in detail. Patient's INR was 4.5. We'll instruct the patient to hold the next dose of warfarin and contact her prescribing physician for further guidance. She is to call tomorrow morning. Patient will need to have her INR rechecked. I did discuss this with the patient. Patient voiced understanding. - Lab Data Lab Results 11/14/21 Range/Units 20:47 PT 44.7 H (9.0-12.0) sec INR 4.5 H (<1.2) Disposition Clinical Impression: Chronic pain, Chronic chest pain, Warfarin-induced coagulopathy Disposition: HOME SELF-CARE Condition: Stable Instructions (If sedation given, give patient instructions): Chronic Pain (ED), Elevated INR (ED) Additional Instructions: Hold the next dose of your warfarin and contact your prescribing physician for further guidance. Make sure you call your doctor tomorrow without fail. Do not take in any risky behavior or he could sustain a fall or injury. Follow-up with your regular physician as directed. Return to the ER immediately if any symptoms worsen, new symptoms arise, or any other problems develop. You need to have your INR rechecked by your prescribing physician. Again, call tomorrow morning for guidance. Is patient prescribed a controlled substance at d/c from ED?: No Referrals: [facility] [Primary Care Provider] - 11/15/21 8:00 am Time of Disposition: 22:02
[2021-11-14 21:44] LABS: INR 4.5 (<1.2); Prothrombin Time 44.7 sec (9.0-12.0)
[2021-11-14 22:13] VITALS: BP 138/78; PULSE 78; RESP 16; TEMP 98
== END 2021-11-14 22:12 | disposition home or self-care (01) ==
LOC: EC 19:56
DX: D68.9 Coagulation defect, unspecified (principal); R07.9 Chest pain, unspecified; Z86.73 Personal history of transient ischemic attack (TIA), and cerebral infarction without residual deficits; Z88.0 Allergy status to penicillin; Z88.8 Allergy status to other drugs, medicaments and biological substances; Z88.6 Allergy status to analgesic agent
CPT/HCPCS: 36415; 93005; 85610; 99285; 96372; J2360

== ENCOUNTER 2021-11-27 07:27 | Emergency (ER) | payer OTHER ==
--- NOTE | 2021-11-27 07:39 | ED ---
General Adult HPI - General Chief complaint: Arrhythmia/Palpitations Stated complaint: palpitations Time Seen by Provider: 11/27/21 07:31 Source: patient, EMS Mode of arrival: EMS - History of Present Illness Initial comments: Dictation was produced using [employer] dictation software. please excuse any grammatical, word or spelling errors. Chief Complaint: 36-year-old female multiple Aditya's presents to the emergency department for palpitations after methamphetamine use History of Present Illness: 86-year-old female she has multiple comorbidities. Patient has a history of chronic aortic dissections, heart failure, liver disease, illicit drug abuse. She came from her aunt's house after having expressed palpitations per she states she did methamphetamine just prior to calling EMS today. Patient has any pain complaints. She was like her heart skipped a beat out of her chest. Patient is well-known to the emergency department for multiple visitations for chest pain and drug use. The ROS documented in this emergency department record has been reviewed and confirmed by me. Those systems with pertinent positive or negative responses have been documented in the HPI. All other systems are other negative and/or noncontributory. PHYSICAL EXAM: General Impression: Alert and oriented x3, not in acute distress, cachectic, restless HEENT: Normocephalic atraumatic, extra-ocular movements intact, pupils equal and reactive to light bilaterally, mucous membranes moist., Mild conjunctival injection Cardiovascular: Heart regular rate and rhythm Chest: Able to complete full sentences, no retractions, no tachypnea Abdomen: abdomen soft, non-tender, non-distended, no organomegaly Musculoskeletal: Pulses present and equal in all extremities, no peripheral edema Motor: no focal deficits noted Neurological: CN II-XII grossly intact, no focal motor or sensory deficits noted Skin: Intact with no visualized rashes Psych: Normal affect and mood ED course: 36-year-old male with multiple comorbidities presents emergency department for palpitations after methamphetamine use. Laboratory evaluation obtained. CBC and metabolic panels obtained. Slight hypokalemia with potassium 3.2. Patient given oral potassium. Patient observed in emergency department for 1 hour 35 minutes per she is reevaluated at 9:00 AM. Patient stable. Patient was on telemetry her manager monitoring was reviewed and analyzed for arrhythmias there is some incidences of sinus arrhythmia but no other concerning findings noted. Patient is agreeable for discharge. Patient is advised to stop using illicit drugs for the benefit of her health. EKG interpretation: Ventricular rate 105, sinus tachycardia,. Interval 167, QS 110, QTc 425. No HI prolongation, no QTC prolongation, no ST or T-wave changes noted. EKG compared to 11/14/2021 showing no changes. Overall, this EKG is unremarkable - Related Data Home Medications Medication Instructions Recorded Confirmed Warfarin [Coumadin] 5 mg PO HS 07/25/19 09/13/21 Metoprolol Tartrate [Lopressor] 25 mg PO HS 07/30/21 09/13/21 Ondansetron [Zofran] 4 mg PO DAILY PRN 07/30/21 09/13/21 Acetaminophen Tab [Tylenol Tab] 1,000 mg PO Q6HR PRN 09/13/21 09/13/21 Loperamide HCl [Imodium A-D] 2 mg PO DIRECTED 09/13/21 09/13/21 Previous Rx's Medication Instructions Recorded cloNIDine HCL [Kapvay] 0.1 mg PO Q12HR PRN #10 tab 09/19/21 Allergies Allergy/AdvReac Type Severity Reaction Status Date / Time chlordiazepoxide HCl Allergy SEE COMMENT Verified 11/27/21 07:33 [From Librium] Penicillins Allergy Rash/Hives Verified 11/27/21 07:33 ketorolac [From Toradol] AdvReac ANXIETY Verified 11/27/21 07:33 morphine AdvReac Unknown Verified 11/27/21 07:33 prochlorperazine edisylate AdvReac PANIC Verified 11/27/21 07:33 [From Compazine] ATTACK prochlorperazine maleate AdvReac PANIC Verified 11/27/21 07:33 [From Compazine] ATTACK Review of Systems ROS Statement: Those systems with pertinent positive or pertinent negative responses have been documented in the HPI. ROS Other: All systems not noted in ROS Statement are negative. Past Medical History Past Medical History: Heart Failure, CVA/TIA, Liver Disease, Neurologic Disorder, Osteoarthritis (OA), Pneumonia, Seizure Disorder Additional Past Medical History / Comment(s): Stroke with residual right-sided weakness 2017, TIAs, marfan's syndrome, ArnoldChiari malformation, spontaneous pneumothorax x 21, scoliosis and pectus excavatum secondary to Marfan's, chronic back pain, bilateral leg pain, gastric ulcers, sinus infections, STATED HAS POOR CIRCULATION, viral meningitis, HEP C. 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 spleenectomy 2018, L upper lobectomy d/t pneumothoraxs. Past Anesthesia/Blood Transfusion Reactions: No Reported Reaction Past Psychological History: Anxiety Smoking Status: Current every day smoker Past Alcohol Use History: None Reported Past Drug Use History: Marijuana, Methamphetamine, Prescription Drug Abuse - Past Family History Father Additional Family Medical History / Comment(s): Father is with history of AIDS. Mother Family Medical History: Diabetes Mellitus Additional Family Medical History / Comment(s): Mother at age 49 from liver cirrhosis secondary to alcohol abuse. Brother(s) Additional Family Medical History / Comment(s): Patient has one brother with no major medical problems. Course Vital Signs 11/27/21 11/27/21 07:28 07:52 Temperature 98.7 F Pulse Rate 106 H Pulse Rate [ 101 H Vulcanizer Rubber Plate ] Respiratory 18 Rate Blood Pressure 145/93 O2 Sat by Pulse 95 Oximetry Medical Decision Making - Lab Data Result diagrams: 11/27/21 07:53 11/27/21 08:13 Lab Results 11/27/21 11/27/21 Range/Units 07:53 08:13 WBC 11.9 H (3.8-10.6) k/uL RBC 4.47 (3.80-5.40) m/uL Hgb 14.9 (11.4-16.0) gm/dL Hct 44.6 (34.0-46.0) % MCV 99.8 (80.0-100.0) fL MCH 33.3 (25.0-35.0) pg MCHC 33.4 (31.0-37.0) g/dL RDW 13.6 (11.5-15.5) % Plt Count 321 (150-450) k/uL MPV 8.2 Neutrophils % 82 % Lymphocytes % 11 % Monocytes % 5 % Eosinophils % 1 % Basophils % 1 % Neutrophils # 9.7 H (1.3-7.7) k/uL Lymphocytes # 1.3 (1.0-4.8) k/uL Monocytes # 0.6 (0-1.0) k/uL Eosinophils # 0.1 (0-0.7) k/uL Basophils # 0.1 (0-0.2) k/uL Sodium 138 (137-145) mmol/L Potassium 3.2 L (3.5-5.1) mmol/L Chloride 103 (98-107) mmol/L Carbon Dioxide 28 (22-30) mmol/L Anion Gap 7 mmol/L BUN 8 (7-17) mg/dL Creatinine 0.48 L (0.52-1.04) mg/dL Est GFR (CKD-EPI)AfAm >90 (>60 ml/min/1.73 sqM) Est GFR (CKD-EPI)NonAf >90 (>60 ml/min/1.73 sqM) Glucose 104 H (74-99) mg/dL Calcium 8.7 (8.4-10.2) mg/dL Magnesium 1.7 (1.6-2.3) mg/dL Disposition Clinical Impression: Palpitations, Methamphetamine abuse Disposition: HOME SELF-CARE Condition: Good Instructions (If sedation given, give patient instructions): Heart Palpitations (ED) Is patient prescribed a controlled substance at d/c from ED?: No Referrals: [facility] [Primary Care Provider] - 1-2 days
[2021-11-27 07:50] VITALS: RESP 18
[2021-11-27 08:12] LABS: Basophils # (A) 0.1 k/uL (0-0.2); Basophils % (A) 1 %; Eosinophils # (A) 0.1 k/uL (0-0.7); Eosinophils % (A) 1 %; HCT 44.6 % (34.0-46.0); HGB 14.9 gm/dL (11.4-16.0); Lymphocytes # (A) 1.3 k/uL (1.0-4.8); Lymphocytes % (A) 11 %; MCH 33.3 pg (25.0-35.0); MCHC 33.4 g/dL (31.0-37.0); MCV 99.8 fL (80.0-100.0); Mean Platelet Volume 8.2; Monocytes # (A) 0.6 k/uL (0-1.0); Monocytes % (A) 5 %; Neutrophils # (A) 9.7 k/uL (1.3-7.7); Neutrophils % (A) 82 %; Platelet Count 321 k/uL (150-450); RBC 4.47 m/uL (3.80-5.40); RDW 13.6 % (11.5-15.5); WBC 11.9 k/uL (3.8-10.6)
[2021-11-27 08:48] LABS: African American GFR (CKD) >90 (>60 ml/min/1.73 sqM); Anion Gap 7 mmol/L; Blood Urea Nitrogen 8 mg/dL (7-17); Calcium 8.7 mg/dL (8.4-10.2); Carbon Dioxide 28 mmol/L (22-30); Chloride 103 mmol/L (98-107); Glucose 104 mg/dL (74-99); Magnesium 1.7 mg/dL (1.6-2.3); Non-African American GFR(CKD) >90 (>60 ml/min/1.73 sqM); Potassium 3.2 mmol/L (3.5-5.1); Sodium 138 mmol/L (137-145)
[2021-11-27] MEDS ORDERED: POTASSIUM CHLORIDE ER 20 MEQ TAB.ER PO STA (08:50)
[2021-11-27 09:16] VITALS: BP 120/69; PULSE 102; TEMP 97.6
== END 2021-11-27 09:18 | disposition home or self-care (01) ==
LOC: EC 07:27
DX: R00.2 Palpitations (principal); F15.10 Other stimulant abuse, uncomplicated; F17.200 Nicotine dependence, unspecified, uncomplicated; Z86.73 Personal history of transient ischemic attack (TIA), and cerebral infarction without residual deficits; Z88.0 Allergy status to penicillin; Z88.6 Allergy status to analgesic agent; Z88.9 Allergy status to unspecified drugs, medicaments and biological substances; Z88.8 Allergy status to other drugs, medicaments and biological substances
CPT/HCPCS: 36415; 80048; 83735; 85025; 93005; 99285

== ENCOUNTER 2022-01-01 09:11 | Emergency (ER) | payer OTHER ==
[2022-01-01 09:16] VITALS: BP 90/59; PULSE 81; RESP 22; TEMP 98
--- NOTE | 2022-01-01 09:32 | ED ---
General Adult HPI - General Chief complaint: Chest Pain Stated complaint: chest pain Time Seen by Provider: 01/01/22 09:13 Source: patient, EMS Mode of arrival: ambulatory Limitations: no limitations - History of Present Illness Initial comments: Dictation was produced using [employer] dictation software. please excuse any grammatical, word or spelling errors. Chief Complaint: 36-year-old female presents to the emergency department with chest pain History of Present Illness: 36-year-old female she is well-known to emergency department. She presents to the emergency department for left anterior chest pain. She states that it's sharp but sometimes dull. Nonradiating not associated with diaphoresis or nausea. Patient arrived via EMS. Patient is well-known to emergency department for multiple visitations for chest pain. Patient has history of chronic aortic dissection, extensive history of illicit drug abuse, heart failure and stroke. Patient reports that she continues to abuse illicit drugs. Patient denies any cough. States that over the last several days she has not been using crack in the set has been smoking more marijuana with her boyfriend. The ROS documented in this emergency department record has been reviewed and confirmed by me. Those systems with pertinent positive or negative responses have been documented in the HPI. All other systems are other negative and/or noncontributory. PHYSICAL EXAM: General Impression: Alert and oriented x3, not in acute distress, cachectic HEENT: Normocephalic atraumatic, extra-ocular movements intact, pupils equal and reactive to light bilaterally, mucous membranes moist. Cardiovascular: Heart regular rate and rhythm Chest: Able to complete full sentences, no retractions, no tachypnea Abdomen: abdomen soft, non-tender, non-distended, no organomegaly Musculoskeletal: Pulses present and equal in all extremities, no peripheral edema Motor: no focal deficits noted Neurological: CN II-XII grossly intact, no focal motor or sensory deficits noted Skin: Intact with no visualized rashes Psych: Normal affect and mood ED course: 36-year-old female well-known to emergency Department presents to the emergency department for atypical chest pain. Signs upon arrival are within acceptable limits. Patient's well-appearing. I'm familiar with the patient she appears to be at baseline. She is smiling and resting comfortably at the bedside. EKG interpretation: Ventricular rate 73, sinus rhythm, SC interval 159, QRS 114, QTc 426. No SC prolongation, no QTC prolongation, no ST or T-wave changes noted. Overall, this EKG is unremarkable Patient refusing x-rays and blood work. Approximately 10:00 AM patient was not seen around. Patient eloped prior to further workup and care. - Related Data Home Medications Medication Instructions Recorded Confirmed Warfarin [Coumadin] 5 mg PO HS 07/25/19 09/13/21 Metoprolol Tartrate [Lopressor] 25 mg PO HS 07/30/21 09/13/21 Ondansetron [Zofran] 4 mg PO DAILY PRN 07/30/21 09/13/21 Acetaminophen Tab [Tylenol Tab] 1,000 mg PO Q6HR PRN 09/13/21 09/13/21 Loperamide HCl [Imodium A-D] 2 mg PO DIRECTED 09/13/21 09/13/21 Previous Rx's Medication Instructions Recorded cloNIDine HCL [Kapvay] 0.1 mg PO Q12HR PRN #10 tab 09/19/21 Allergies Allergy/AdvReac Type Severity Reaction Status Date / Time chlordiazepoxide HCl Allergy SEE COMMENT Verified 01/01/22 09:12 [From Librium] Penicillins Allergy Rash/Hives Verified 01/01/22 09:12 ketorolac [From Toradol] AdvReac ANXIETY Verified 01/01/22 09:12 morphine AdvReac Unknown Verified 01/01/22 09:12 prochlorperazine edisylate AdvReac PANIC Verified 01/01/22 09:12 [From Compazine] ATTACK prochlorperazine maleate AdvReac PANIC Verified 01/01/22 09:12 [From Compazine] ATTACK Review of Systems ROS Statement: Those systems with pertinent positive or pertinent negative responses have been documented in the HPI. ROS Other: All systems not noted in ROS Statement are negative. Past Medical History Past Medical History: Heart Failure, CVA/TIA, Liver Disease, Neurologic Disorder, Osteoarthritis (OA), Pneumonia, Seizure Disorder Additional Past Medical History / Comment(s): Stroke with residual right-sided weakness 2017, TIAs, marfan's syndrome, ArnoldChiari malformation, spontaneous pneumothorax x 21, scoliosis and pectus excavatum secondary to Marfan's, chronic back pain, bilateral leg pain, gastric ulcers, sinus infections, STATED HAS POOR CIRCULATION, viral meningitis, HEP C. 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 spleenectomy 2018, L upper lobectomy d/t pneumothoraxs. Past Anesthesia/Blood Transfusion Reactions: No Reported Reaction Past Psychological History: Anxiety Smoking Status: Current every day smoker Past Alcohol Use History: None Reported Past Drug Use History: Marijuana, Prescription Drug Abuse - Past Family History Father Additional Family Medical History / Comment(s): Father is with history of AIDS. Mother Family Medical History: Diabetes Mellitus Additional Family Medical History / Comment(s): Mother at age 49 from liver cirrhosis secondary to alcohol abuse. Brother(s) Additional Family Medical History / Comment(s): Patient has one brother with no major medical problems. General Exam Limitations: no limitations Course Vital Signs 01/01/22 09:12 Temperature 98 F Pulse Rate 81 Respiratory 22 Rate Blood Pressure 90/59 O2 Sat by Pulse 97 Oximetry Disposition Clinical Impression: Chest pain Disposition: Left Against Medical Advice Referrals: [facility] [Primary Care Provider] - 1-2 days
== END 2022-01-01 09:57 | disposition left against medical advice (07) ==
LOC: EC 09:11
DX: R07.89 Other chest pain (principal); Z86.73 Personal history of transient ischemic attack (TIA), and cerebral infarction without residual deficits; F17.200 Nicotine dependence, unspecified, uncomplicated; Z88.0 Allergy status to penicillin; Z88.5 Allergy status to narcotic agent; Z88.8 Allergy status to other drugs, medicaments and biological substances; Z88.9 Allergy status to unspecified drugs, medicaments and biological substances
CPT/HCPCS: 99285

== ENCOUNTER 2022-01-20 10:23 | Emergency (ER) | payer OTHER ==
[2022-01-20 10:40] VITALS: BP 146/77; PULSE 92; RESP 18; TEMP 98.2
== END 2022-01-20 10:39 | disposition left against medical advice (07) ==
LOC: EC 10:23
DX: Z53.21 Procedure and treatment not carried out due to patient leaving prior to being seen by health care provider (principal)
CPT/HCPCS: 99499

== ENCOUNTER → 2022-07-18 | Outpatient (CLI) | payer OTHER | END | disposition home or self-care (01) | LOC: LABWHC1 16:00 | PROVIDERS: ATTEND Internal Medicine Pulmonary Disease | DX: I25.810 Atherosclerosis of coronary artery bypass graft(s) without angina pectoris (principal); Q87.418 Marfan syndrome with other cardiovascular manifestations; Z79.01 Long term (current) use of anticoagulants | CPT/HCPCS: 36415; 85610 ==

== ENCOUNTER 2022-07-20 18:32 | Observation (INO) | payer OTHER ==
--- NOTE | 2022-07-20 20:04 | XR ---
EXAMINATION TYPE: XR chest 2V DATE OF EXAM: 07/20/2022 7:56 PM COMPARISON: Chest radiographs from 10/24/2021, CT 10/20/2021. TECHNIQUE: XR chest 2V Frontal and lateral views of the chest. CLINICAL INDICATION:Female, 37 years old with history of Chest Pain; FINDINGS: Lungs/Pleura: There is no evidence of pleural effusion, focal consolidation, or pneumothorax. Increa sed lucency in the lung apices. Bilateral pulmonary nodule-like changes consistent with patient's nip ple on CT imaging. Pulmonary vascularity: Unremarkable. Heart/mediastinum: Cardiomediastinal silhouette is unremarkable. The aorta appears tortuous, a findi ng usually associated with either atherosclerosis or systemic hypertension. Musculoskeletal: No obvious significant acute pathology or significant degenerative changes of the sp ine. Sternotomy wires are present. Fixation hardware at the right proximal humerus. Other findings: None IMPRESSION: 1. No acute cardiopulmonary disease/process. 2. Scoliosis changes of the spine with degeneration.
--- NOTE | 2022-07-20 20:41 | ED ---
Chest Pain HPI - General Chief Complaint: Chest Pain Stated Complaint: chest pain Time Seen by Provider: 07/20/22 19:03 Source: patient, EMS Mode of arrival: EMS Limitations: no limitations - History of Present Illness Initial Comments: Patient is a 37-year-old female with history of illicit drug use, stroke, heart failure presenting with chief complaint of chest pain. Patient is well-known to our ER, visits frequently for chest pain. Patient states that the pain is sharp in nature, located mainly on the left side of the chest. She denies any pleu ritic nature, pain is worse with palpation. No shortness of breath. She admits to palpitations. She denies any abdominal pain, vomiting, numbness, tingling, weakness, headache, vision or hearing changes, neck pain or stiffness, fever, chills, cough, congestion. - Related Data Home Medications Medication Instructions Recorded Confirmed Warfarin [Coumadin] 5 mg PO HS 07/25/19 09/13/21 Metoprolol Tartrate [Lopressor] 25 mg PO HS 07/30/21 09/13/21 Ondansetron [Zofran] 4 mg PO DAILY PRN 07/30/21 09/13/21 Acetaminophen Tab [Tylenol Tab] 1,000 mg PO Q6HR PRN 09/13/21 09/13/21 Loperamide HCl [Imodium A-D] 2 mg PO DIRECTED 09/13/21 09/13/21 Previous Rx's Medication Instructions Recorded cloNIDine HCL [Kapvay] 0.1 mg PO Q12HR PRN #10 tab 09/19/21 Allergies Allergy/AdvReac Type Severity Reaction Status Date / Time chlordiazepoxide HCl Allergy SEE COMMENT Verified 01/08/22 11:21 [From Librium] Penicillins Allergy Rash/Hives Verified 01/08/22 11:21 ketorolac [From Toradol] AdvReac ANXIETY Verified 01/08/22 11:21 morphine AdvReac Unknown Verified 01/08/22 11:21 prochlorperazine edisylate AdvReac PANIC Verified 01/08/22 11:21 [From Compazine] ATTACK prochlorperazine maleate AdvReac PANIC Verified 01/08/22 11:21 [From Compazine] ATTACK Review of Systems ROS Statement: Those systems with pertinent positive or pertinent negative responses have been documented in the HPI. ROS Other: All systems not noted in ROS Statement are negative. EKG Findings - EKG Comments: EKG Findings:: Sinus rhythm rate of 97. OH 132. QRS 110. QT 376. QTC 430. ST depression in leads V4 and V5. This EKG was also interpreted by my attending Dr. Casillas. Past Medical History Past Medical History: Heart Failure, CVA/TIA, Liver Disease, Neurologic Disorder, Osteoarthritis (OA), Pneumonia, Seizure Disorder Additional Past Medical History / Comment(s): Stroke with residual right-sided weakness 2017, TIAs, marfan's syndrome, ArnoldChiari malformation, spontaneous pneumothorax x 21, scoliosis and pectus excavatum secondary to Marfan's, chronic back pain, bilateral leg pain, gastric ulcers, sinus infections, STATED HAS POOR CIRCULATION, viral meningitis, HEP C. 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 spleenectomy 2018, L upper lobectomy d/t pneumothoraxs. Past Anesthesia/Blood Transfusion Reactions: No Reported Reaction Past Psychological History: Anxiety Smoking Status: Current every day smoker Past Alcohol Use History: None Reported Past Drug Use History: Marijuana, Prescription Drug Abuse - Past Family History Father Additional Family Medical History / Comment(s): Father is with history of AIDS. Mother Family Medical History: Diabetes Mellitus Additional Family Medical History / Comment(s): Mother at age 49 from liver cirrhosis secondary to alcohol abuse. Brother(s) Additional Family Medical History / Comment(s): Patient has one brother with no major medical problems. General Exam Limitations: no limitations General appearance: alert, in no apparent distress Head exam: Present: atraumatic, normocephalic, normal inspection Eye exam: Present: normal appearance Neck exam: Present: normal inspection Respiratory exam: Present: normal lung sounds bilaterally. Absent: respiratory distress, wheezes, rales, rhonchi, stridor Cardiovascular Exam: Present: regular rate, normal rhythm, normal heart sounds. Absent: systolic murmur, diastolic murmur, rubs, gallop, clicks Neurological exam: Present: alert, oriented X3, CN II-XII intact Psychiatric exam: Present: normal affect, normal mood Skin exam: Present: warm, dry, intact, normal color. Absent: rash Course Vital Signs 07/20/22 07/20/22 18:42 21:56 Pulse Rate 101 H 61 Respiratory 18 18 Rate Blood Pressure 139/64 143/80 O2 Sat by Pulse 99 96 Oximetry Chest Pain [facility] Patient is a 37-year-old female presenting with chief complaint of chest pain and palpitations started today. Examination her lungs are clear to auscultation, pain is somewhat reproducible on palpation. EKG shows what appears to be new ST depression in leads V4 and V5, as well as T-wave inversion in lead V3. Patient's troponin is 0.032. Patient's pain responded well to pain medication. CBC shows no leukocytosis or anemia. Coags are WNL. CMP is unremarkable. She has negative for Covid. Chest x-ray shows no acute process. Urine is pending at this time. Patient will be admitted for observation and cardiology evaluation. I spoke with Dr. Roblero who accepted admission. I di scussed this case with my attending Disposition Clinical Impression: Chest pain Disposition: [facility]MITT[facility] TO [facility] Condition: Fair Time of Disposition: 22:45 Decision to Admit Reason: Admit from EC Decision Date: 07/20/22 Decision Time: 22:45
[2022-07-20 21:22] LABS: Basophils # (A) 0.1 k/uL (0-0.2); Basophils % (A) 1 %; Eosinophils # (A) 0.3 k/uL (0-0.7); Eosinophils % (A) 3 %; HCT 44.5 % (34.0-46.0); HGB 14.6 gm/dL (11.4-16.0); Lymphocytes # (A) 1.9 k/uL (1.0-4.8); Lymphocytes % (A) 21 %; MCH 32.6 pg (25.0-35.0); MCHC 32.9 g/dL (31.0-37.0); MCV 99.2 fL (80.0-100.0); Mean Platelet Volume 8.8; Monocytes # (A) 0.7 k/uL (0-1.0); Monocytes % (A) 7 %; Neutrophils # (A) 6.2 k/uL (1.3-7.7); Neutrophils % (A) 67 %; Platelet Count 350 k/uL (150-450); RBC 4.49 m/uL (3.80-5.40); RDW 12.4 % (11.5-15.5); WBC 9.4 k/uL (3.8-10.6)
[2022-07-20 21:58] LABS: Partial Thromboplastin Time 27.9 sec (22.0-30.0); Prothrombin Time 10.7 sec (9.0-12.0)
[2022-07-20] MEDS ORDERED: KETOROLAC 15 MG/ML 1 ML VIAL IVP STA (22:00)
[2022-07-20 22:03] LABS: ALT 15 U/L (4-34); AST 27 U/L (14-36); African American GFR (CKD) >90 (>60 ml/min/1.73 sqM); Albumin 4.6 g/dL (3.5-5.0); Alkaline Phosphatase 102 U/L (38-126); Amylase 45 U/L (30-110); Anion Gap 8 mmol/L; Blood Urea Nitrogen 10 mg/dL (7-17); Calcium 9.3 mg/dL (8.4-10.2); Carbon Dioxide 25 mmol/L (22-30); Chloride 107 mmol/L (98-107); Glucose 94 mg/dL (74-99); Lipase 122 U/L (23-300); Magnesium 2.1 mg/dL (1.6-2.3); Non-African American GFR(CKD) >90 (>60 ml/min/1.73 sqM); Potassium 4.2 mmol/L (3.5-5.1); Sodium 140 mmol/L (137-145); Total Bilirubin 0.5 mg/dL (0.2-1.3); Total Protein 8.2 g/dL (6.3-8.2)
[2022-07-20 22:09] LABS: Appearance,Urine Cloudy (Clear); Bacteria,Urine Rare /hpf; Bilirubin,Urine Negative (Negative); Blood,Urine Large (Negative); Color,Urine Yellow; Glucose,Urine (UA) Negative (Negative); Ketones,Urine Negative (Negative); Leukocyte Esterase,Urine Large (Negative); Mucus,Urine Rare /hpf; Nitrite,Urine Negative (Negative); PH, Urine 6.5 (5.0-8.0); Protein,Urine Trace (Negative); RBC,Urine 2 /hpf (0-5); Specific Gravity,Urine 1.024 (1.001-1.035); Squamous Epithelial Cell,Urine 10 /hpf (0-4); WBC,Urine 57 /hpf (0-5)
[2022-07-20] MEDS ORDERED: HYDROmorphone 1 MG/ML 1 ML SYRINGE IVP STA (22:22)
[2022-07-20 22:27] LABS: Amphetamine Screen,Urine Detected (NotDetected); Barbiturate Screen,Urine Not Detected (NotDetected); Benzodiazepines Screen,Urine Not Detected (NotDetected); Cocaine Screen,Urine Not Detected (NotDetected); Methadone Screen, Urine Not Detected (NotDetected); Opiate Screen,Urine Not Detected (NotDetected); Oxycodone Screen, Urine Not Detected (NotDetected); Phencyclidine Screen,Urine Not Detected (NotDetected); Tricyclic Antidepressant,Urine Not Detected (NotDetected); Urn Cannabinoid Scrn Detected (NotDetected)
[2022-07-20] MEDS ORDERED: ASPIRIN 81 MG PO STA (22:38)
[2022-07-20] MEDS ORDERED: NITROGLYCERIN SL TABS 0.4 MG TAB SUBLINGUAL STA (22:38)
[2022-07-20] MEDS ORDERED: NALOXONE 0.4 MG/ML 1 ML VIAL IV PRN (22:42)
[2022-07-20] MEDS ORDERED: SODIUM CHLORIDE 0.9% 1,000 ML IV SCH (22:45)
[2022-07-21] MEDS: HYDROmorphone 1 MG/ML 1 ML SYRINGE IVP PRN ×2 (02:51→06:16)
--- NOTE | 2022-07-21 03:51 | P.HPIM ---
History of Present Illness H&P Date: 07/20/22 Chief Complaint: chest pain 37 year old female with marfan syndrome, mechanical heart valve, stroke patient comes in with sudden onset left sided chest pain ,while she was sitting doing nothing, pain is sharp in nature 7/10 in severity , no associate nausea or vomiting, no dizziness, no shortness of breath, however, pain worse with deep breath. no fever, no chills, no cough, no URI symptoms. during my interview , she looked comfortable , walking around her room comf ortably she has history of drug abuse, she denies any current use, except for occasional marijuana, denies alcohol use, admits to smoking , patient on coumadin for mechanical heart valve, denies any GI bleeding workup in the ED over all unremarkable CXR no acute pathology EKG showed some lateral lead ST depression Review of Systems Pertinent positives as noted in HPI. All other systems were reviewed and are negative Past Medical History Past Medical History: Heart Failure, CVA/TIA, Liver Disease, Neurologic Disorder , Osteoarthritis (OA), Pneumonia, Seizure Disorder Additional Past Medical History / Comment(s): Stroke with residual right-sided weakness 2017, TIAs, marfan's syndrome, ArnoldChiari malformation, spontaneous pneumothorax x 21, scoliosis and pectus excavatum secondary to Marfan's, chronic back pain, bilateral leg pain, gastric ulcers, sinus infections, STATED HAS POOR CIRCULATION, viral meningitis, HEP C. 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 spleenectomy 2018, L upper lobectomy d/t pneumothoraxs. Past Anesthesia/Blood Transfusion Reactions: No Reported Reaction Past Psychological History: Anxiety Smoking Status: Current every day smoker Past Alcohol Use History: None Reported Past Drug Use History: Marijuana, Prescription Drug Abuse - Past Family History Father Additional Family Medical History / Comment(s): Father is with history of AIDS. Mother Family Medical History: Diabetes Mellitus Additional Family Medical History / Comment(s): Mother at age 49 from liver cirrhosis secondary to alcohol abuse. Brother(s) Additional Family Medical History / Comment(s): Patient has one brother with no major medical problems. Medications and Allergies Home Medications Medication Instructions Recorded Confirmed Type Warfarin [Coumadin] 5 mg PO HS 07/25/19 09/13/21 History Metoprolol Tartrate [Lopressor] 25 mg PO HS 07/30/21 09/13/21 History Ondansetron [Zofran] 4 mg PO DAILY PRN 07/30/21 09/13/21 History Acetaminophen Tab [Tylenol Tab] 1,000 mg PO Q6HR PRN 09/13/21 09/13/21 History Loperamide HCl [Imodium A-D] 2 mg PO DIRECTED 09/13/21 09/13/21 History cloNIDine HCL [Kapvay] 0.1 mg PO Q12HR PRN #10 tab 09/19/21 Rx Allergies Allergy/AdvReac Type Severity Reaction Status Date / Time chlordiazepoxide HCl Allergy SEE COMMENT Verified 01/08/22 11:21 [From Librium] Penicillins Allergy Rash/Hives Verified 01/08/22 11:21 ketorolac [From Toradol] AdvReac ANXIETY Verified 01/08/22 11:21 morphine AdvReac Unknown Verified 01/08/22 11:21 prochlorperazine edisylate AdvReac PANIC Verified 01/08/22 11:21 [From Compazine] ATTACK prochlorperazine maleate AdvReac PANIC Verified 01/08/22 11:21 [From Compazine] ATTACK Physical Exam Vitals: Vital Signs Pulse Resp BP Pulse Ox 07/20/22 21:56 61 18 143/80 96 07/20/22 18:42 101 H 18 139/64 99 Intake and Output 07/20/22 07/20/22 07/21/22 14:59 22:59 06:59 Other: Weight 45.359 kg Constitutional: No acute distress, conversant, pleasant, cachectic, scoliosis Eyes: Anicteric sclerae, moist conjunctiva, Pupils equal round reactive to light ENMT: Oropharynx clear, no erythema, or exudates Neck: Supple, no masses, or JVD No carotid bruits No thyromegaly Lungs: Clear to auscultation Clear to percussion Normal respiratory effort, no accessory muscle use Cardiovascular: Heart regular in rate and rhythm, mechanical heart valve clicks No murmurs, gallops, or rubs No peripheral edema Abdominal: Soft Nontender, no guarding, rebound or rigidity Abdomen moving with respiration Normoactive bowel sounds No hepatomegaly, No splenomegaly No palpable mass No abdominal wall hernia noted Skin: Normal temperature, tone, texture, turgor Extremities: No digital cyanosis No clubbing Pedal pulses intact and symmetrical Radial pulses intact and symmetrical No calf tenderness Psychiatric: Alert and oriented to person, place and time Appropriate affect fair judgement Neuro Muscles Strength 5/5 in all 4 extremities Sensation to light touch grossly present throughout Cranial nerves II-XII grossly intact Lymphatics: no palpable cervical or supraclavicular lymph nodes Results CBC & Chem 7: 07/20/22 19:41 07/20/22 21:46 Labs: Abnormal Lab Results - Last 24 Hours (Table) 07/20/22 07/20/22 Range/Units 21:58 21:58 Urine Appearance Cloudy H (Clear) Urine Protein Trace H (Negative) Urine Blood Large H (Negative) Ur Leukocyte Esterase Large H (Negative) Urine WBC 57 H (0-5) /hpf Ur Squamous Epith Cells 10 H (0-4) /hpf Urine Bacteria Rare H (None) /hpf Urine Mucus Rare H (None) /hpf Ur Amphetamines Screen Detected H (NotDetected) U Methamphetamines Scrn Detected H (NotDetected) U Marijuana (THC) Screen Detected H (NotDetected) Assessment and Plan Assessment: atypical chest pain rule out ACS EKG no acute changes CXR no acute pathology trops negative X2 manager machine monitor vital signs ASA, statin cardiology consult pain control chronic conditions marfan syndrom mechanical heart valve on coumadin , dosing by pharmacy history of CHF , compensated h/o stroke hypertension full code DVT On coumadin
[2022-07-21] MEDS ORDERED: ASPIRIN 81 MG PO SCH (09:00)
[2022-07-21] MEDS ORDERED: ATORVASTATIN 20 MG TAB PO SCH (09:00)
[2022-07-21 09:26] LABS: INR 1.1 (<1.2); Prothrombin Time 11.8 sec (9.0-12.0)
[2022-07-21 10:17] VITALS: BP 139/83; PULSE 57; RESP 18
--- NOTE | 2022-07-21 11:02 | P.CRDCN ---
History of Present Illness Consult date: 07/21/22 Requesting physician: Bruna Roblero Reason for Consult (text): chest pain Chief complaint: chest pain History of present illness: This is a 37-year-old female patient with past medical history Marfan syndrome, mechanical aortic valve replacement, CVA/TIA, endocarditis, hepatitis C, IV drug abuse and current smoker. Previously followed in the office with Dr. Briggs but has not been seen since 2018. [facility] and is currently on warfarin and metoprolol. Presented to the emergency department with complaints of chest discomfort. The chest discomfort is left-sided seems to be fairly constant at times. No clear aggravating or relieving factors. She's had no complaints of shortness of breath, dizziness or lightheadedness. She's had no complaint of palpitations, orthopnea or PND. EKG on admission showed sinus mechanism with ST depression in leads V4 through V6, different from last EKG however has been evident on EKGs intermittently in the past. Troponins came back at 0.032, 0.033, and 0.046. INR is subtherapeutic at 1.1 although she does say she is taking her warfarin at home. She is apparently refusing a gown on and is refusing to wear telemetry. Vital signs have been stable. Past Medical History Past Medical History: Heart Failure, CVA/TIA, Liver Disease, Neurologic Disorder, Osteoarthritis (OA), Pneumonia, Seizure Disorder Additional Past Medical History / Comment(s): Stroke with residual right-sided weakness 2017, TIAs, marfan's syndrome, ArnoldChiari malformation, spontaneous pneumothorax x 21, scoliosis and pectus excavatum secondary to Marfan's, chronic back pain, bilateral leg pain, gastric ulcers, sinus infections, STATED HAS POOR CIRCULATION, viral meningitis, HEP C. 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 spleenectomy 2018, L upper lobectomy d/t pneumothoraxs. Past Anesthesia/Blood Transfusion Reactions: No Reported Reaction Past Psychological History: Anxiety Smoking Status: Current every day smoker Past Alcohol Use History: None Reported Past Drug Use History: Marijuana, Prescription Drug Abuse - Past Family History Father Additional Family Medical History / Comment(s): Father is with history of AIDS. Mother Family Medical History: Diabetes Mellitus Additional Family Medical History / Comment(s): Mother at age 49 from liver cirrhosis secondary to alcohol abuse. Brother(s) Additional Family Medical History / Comment(s): Patient has one brother with no major medical problems. Medications and Allergies Home Medications Medication Instructions Recorded Confirmed Type Warfarin [Coumadin] 5 mg PO SUTUWESA 07/25/19 07/21/22 History Metoprolol Tartrate [Lopressor] 25 mg PO BID 07/30/21 07/21/22 History Warfarin Sodium 7.5 mg PO MOTHFR 07/21/22 07/21/22 History Allergies Allergy/AdvReac Type Severity Reaction Status Date / Time Penicillins Allergy Rash/Hives Verified 07/21/22 08:06 chlordiazepoxide HCl AdvReac SEE COMMENT Verified 07/21/22 08:06 [From Librium] ketorolac [From Toradol] AdvReac ANXIETY Verified 07/21/22 08:06 morphine AdvReac Unknown Verified 07/21/22 08:06 prochlorperazine edisylate AdvReac PANIC Verified 07/21/22 08:06 [From Compazine] ATTACK prochlorperazine maleate AdvReac PANIC Verified 07/21/22 08:06 [From Compazine] ATTACK Physical Exam Vitals: Vital Signs Pulse Resp BP Pulse Ox 07/21/22 10:17 57 L 18 139/83 98 07/21/22 06:00 94 16 140/87 98 07/20/22 21:56 61 18 143/80 96 07/20/22 18:42 101 H 18 139/64 99 Intake and Output 07/20/22 07/21/22 07/21/22 22:59 06:59 14:59 Other: Weight 45.359 kg PHYSICAL EXAMINATION: This is a 37-year-old cachectic female in no apparent distress at the time of my examination. HEENT: Head is atraumatic, normocephalic. Pupils are equal, round. Sclerae anicteric. Conjunctivae are clear. Mucous membranes of the mouth are moist. Neck is supple. There is no elevated jugular venous pressure. No carotid bruit is heard. CHEST EXAMINATION: Clear to auscultation bilaterally. No wheezes rales or rhonchi. Respirations even and nonlabored. HEART EXAMINATION: Heart regular, positive S1 and S2. No S3. No S4. Prosthetic sounds crisp. ABDOMEN: Soft, nontender. Bowel sounds are heard. No organomegaly noted. EXTREMITIES: 2+ peripheral pulses with no evidence of peripheral edema and no calf tenderness noted. NEUROLOGIC EXAMINATION: Patient is awake, alert and oriented x3. Results 07/20/22 19:41 07/20/22 21:46 Cardiac Enzymes 07/20/22 07/20/22 07/20/22 Range/Units 21:46 21:46 23:52 AST 27 (14-36) U/L Troponin I 0.032 0.033 (0.000-0.034) ng/mL 07/21/22 Range/Units 08:39 AST (14-36) U/L Troponin I 0.046 H* (0.000-0.034) ng/mL Coagulation 07/20/22 07/21/22 Range/Units 19:41 08:39 PT 10.7 11.8 (9.0-12.0) sec APTT 27.9 (22.0-30.0) sec CBC 07/20/22 Range/Units 19:41 WBC 9.4 (3.8-10.6) k/uL RBC 4.49 (3.80-5.40) m/uL Hgb 14.6 (11.4-16.0) gm/dL Hct 44.5 (34.0-46.0) % Plt Count 350 (150-450) k/uL Comprehensive Metabolic Panel 07/20/22 Range/Units 21:46 Sodium 140 (137-145) mmol/L Potassium 4.2 (3.5-5.1) mmol/L Chloride 107 (98-107) mmol/L Carbon Dioxide 25 (22-30) mmol/L BUN 10 (7-17) mg/dL Creatinine 0.52 (0.52-1.04) mg/dL Glucose 94 (74-99) mg/dL Calcium 9.3 (8.4-10.2) mg/dL AST 27 (14-36) U/L ALT 15 (4-34) U/L Alkaline Phosphatase 102 (38-126) U/L Total Protein 8.2 (6.3-8.2) g/dL Albumin 4.6 (3.5-5.0) g/dL Current Medications Generic Name Dose Route Start Last Admin Trade Name Freq PRN Reason Stop Dose Admin Aspirin 81 mg 07/21/22 09:00 07/21/22 08:03 Aspirin 81 Mg PO 81 mg DAILY DARION Administration Atorvastatin Calcium 20 mg 07/21/22 09:00 07/21/22 08:03 Atorvastatin 20 Mg Tab PO 20 mg DAILY DARION Administration Sodium Chloride 1,000 mls @ 20 mls/hr 07/20/22 22:45 07/20/22 23:49 Saline 0.9% IV Not Given .Q24H [facility] Metoprolol Tartrate 25 mg 07/21/22 21:00 Metoprolol Tartrate 25 Mg Tab PO [facility] Miscellaneous Information 1 each 07/21/22 03:45 Warfarin Per Pharmacy MISCELLANE DIRECTED PRN Per Protocol Protocol Naloxone HCl 0.2 mg 07/20/22 22:42 Naloxone 0.4 Mg/Ml 1 Ml Vial IV Q2M PRN Opioid Reversal Intake and Output 07/20/22 07/21/22 07/21/22 22:59 06:59 14:59 Other: Weight 45.359 kg 07/20/22 19:41 07/20/22 21:46 Assessment and Plan Assessment: #1 symptoms of chest pain, unclear etiology #2 history of Marfan's syndrome #3 prior mechanical aortic valve replacement supposedly on warfarin with subtherapeutic INR #4 history of endocarditis 5 history of IV drug abuse #6 nicotine dependence Plan: From cardiology's perspective at this time chest pain seems to be atypical for acute coronary syndrome. We will obtain a 2-D echo with Doppler study to assess cardiac structure and function. Resume patient's warfarin and monitor the INR should be between 2.5 and 3.5. We'll continue to follow the patient and provide further recommendations accordingly. NECKTIE TURNER note has been reviewed, I agree with a documented findings and plan of care. Patient was seen and examined.
[2022-07-21] MEDS ORDERED: ENOXAPARIN 40 MG/0.4 ML SYRINGE SQ SCH (12:15)
--- NOTE | 2022-07-21 12:39 | CA ---
Transthoracic Echo Report Name: Arlin Gilmore Age: 37 Gender: F : 1985 Exam Date: 07/21/2022 10:42 Exam Location: [facility] Ht (in): 71 Wt (lb): 100 Ordering Physician: Theresa Jackson Attending/Referring Phys: [id number], Manuel Product Marketing Intern Yuliana Milan, RD Procedure CPT: Indications: Chest Pain Cardiac Hx: Technical Quality: Good Contrast 1: Total Dose (mL): Contrast 2: Total Dose (mL): MEASUREMENTS (Male / Female) Normal Values 2D ECHO LV Diastolic Diameter PLAX 4.1 cm 4.2 - 5.9 / 3.9 - 5.3 cm LV Systolic Diameter PLAX 2.4 cm IVS Diastolic Thickness 1.5 cm 0.6 - 1.0 / 0.6 - 0.9 cm LVPW Diastolic Thickness 1.4 cm 0.6 - 1.0 / 0.6 - 0.9 cm LV Relative Wall Thickness 0.7 RV Internal Dim ED PLAX 3.0 cm LA Systolic Diameter LX 5.0 cm 3.0 - 4.0 / 2.7 - 3.8 cm LV Diastolic Volume MOD 4C 92.7 cm??? LV Systolic Volume MOD 4C 53.6 cm??? LV Ejection Fraction MOD 4C 42.2 % LV Diastolic Length 4C 7.0 cm LV Systolic Length 4C 6.2 cm LV Diastolic Volume MOD 2C 64.0 cm??? LV Systolic Volume MOD 2C 36.8 cm??? LV Ejection Fraction MOD 2C 42.4 % LV Diastolic Length 2C 6.6 cm LV Systolic Length 2C 6.0 cm LA Volume 103.2 cm??? 18 - 58 / 22 - 52 cm??? M-MODE Aortic Root Diameter MM 2.7 cm MV E Point Septal Separation 0.9 cm DOPPLER AV Peak Velocity 228.3 cm/s AV Peak Gradient 20.8 mmHg AV Mean Velocity 142.7 cm/s AV Mean Gradient 9.4 mmHg AV Velocity Time Integral 38.1 cm AI Peak Velocity 184.5 cm/s AI Peak Gradient 13.6 mmHg AI Pressure Half Time 223.2 ms MV Area PHT 4.1 cm??? Mitral E Point Velocity 117.7 cm/s Mitral A Point Velocity 127.9 cm/s Mitral E to A Ratio 0.9 MV Deceleration Time 183.9 ms MV E' Velocity 5.8 cm/s Mitral E to MV E' Ratio 20.2 TR Peak Velocity 283.6 cm/s TR Peak Gradient 32.2 mmHg Right Ventricular Systolic Press 36.0 mmHg PV Peak Velocity 79.2 cm/s PV Peak Gradient 2.5 mmHg PV Mean Velocity 53.6 cm/s PV Mean Gradient 1.3 mmHg PV Velocity Time Integral 15.8 cm PI Peak Gradient 23.4 mmHg FINDINGS Left Ventricle Left ventricular ejection fraction is estimated at 50-55 %. Left ventricular cavity size normal. Moderate left ventricle hypertrophy Right Ventricle Normal right ventricular size and function. Mild pulmonary hypertension. Right Atrium Normal right atrial size. Left Atrium Severely increased left atrial diameter. Severely increased left atrial volume. Mildly increased left atrial area. Mitral Valve Mitral valve thickened. Mitral annular calcification. Moderate to Severe mitral regurgitation. Aortic Valve Normal mechanical AOV valve with max gradient of 21 mmHg and mean gradient of 9 mmHg. Mild prosthetic aortic valve regurgitation. Tricuspid Valve Thickening of tricuspid valve. Moderate tricuspid regurgitation. Thickening of the tip of the tricuspid valve, cannot exclude a vegetation Pulmonic Valve Structurally normal pulmonic valve. Trace pulmonic regurgitation. Pericardium Normal pericardium. No pericardial effusion. Aorta Normal size aortic root and proximal ascending aorta. CONCLUSIONS 1. The ventricle systolic function borderline normal 2. Prostatic aortic valve with a mean gradient of 9 mmHg 3. Moderate to severe mitral regurgitation 4. Thickened tricuspid valve leaflet with focal thickening at the tip raising the possibility of vegetation with moderate regurgitation 4. Trace pulmonic regurgitation Previewed by: Dr. Jenny Morris MD (Electronically Signed) Final Date: 21 July 2022 12:38
--- NOTE | 2022-07-21 13:39 | P.DS ---
Providers Date of admission: 07/20/22 22:44 Attending physician: Bruna Roblero MD Consults: 07/20/22 22:42 Consult Physician Urgent Consulting Provider: [facility] Consult Reason/Comments: chest pain Do you want consulting provider notified?: Yes Primary care physician: [facility] Course: Discharge Diagnosis: Atypical chest pain Marfan syndrome Mechanical aortic valve on Coumadin Subtherapeutic INR History of CHF History of stroke Hypertension Hospital Course: 37 year old female with marfan syndrome, mechanical heart valve, stroke , history of drug abuse she denies current use except for occasional marijuana, denies alcohol use but admits to smoking. Patient comes in with sudden onset left sided chest pain ,while she was sitting doing nothing, pain is sharp in nature 7/10 in severity , no associate nausea or vomiting, no dizziness, no shortness of breath, however, pain worse with deep breath. no fever, no chills, no cough, no URI symptoms. Patient's troponins were negative 2. EKG with no acute changes. In the morning patient signed AMA paperwork and left AGAINST MEDICAL ADVICE. Patient did not wait to be seen by a physician. A total of [5] minutes of time were spent preparing this complex discharge summary . Patient Condition at Discharge: Poor Plan - Discharge Summary New Discharge Prescriptions: No Action Warfarin [Coumadin] 5 mg PO SUTUWESA Warfarin Sodium 7.5 mg PO MOTHFR Metoprolol Tartrate [Lopressor] 25 mg PO BID Discharge Medication List Warfarin [Coumadin] 5 mg PO SUTUWESA 07/25/19 [History] Metoprolol Tartrate [Lopressor] 25 mg PO BID 07/30/21 [History] Warfarin Sodium 7.5 mg PO MOTHFR 07/21/22 [History] Follow up Appointment(s)/Referral(s): [facility] [Primary Care Provider] - 1-2 days
[2022-07-21] MEDS ORDERED: WARFARIN 5 MG TAB PO ONE (18:00)
[2022-07-21 18:03] LABS: Chol/HDL Ratio 3.45 Ratio; LDL Cholesterol,Calculated 123.7 mg/dL (0.0-131.0); VLDL Calculation 15.46 mg/dL (5.00-40.00)
[2022-07-21] MEDS ORDERED: METOPROLOL TARTRATE 25 MG TAB PO SCH (21:00)
== END 2022-07-21 12:29 | disposition left against medical advice (07) ==
LOC: EC 18:32 → SUPCPDRO 18:32 → 6NMEDSUR 22:44
PROVIDERS: ADMIT Internal Medicine; ATTEND Internal Medicine
DX: R07.89 Other chest pain (principal); I11.0 Hypertensive heart disease with heart failure; I50.9 Heart failure, unspecified; I69.351 Hemiplegia and hemiparesis following cerebral infarction affecting right dominant side; G40.909 Epilepsy, unspecified, not intractable, without status epilepticus; B19.20 Unspecified viral hepatitis C without hepatic coma; Q07.00 Arnold-Chiari syndrome without spina bifida or hydrocephalus; Q87.40 Marfan syndrome, unspecified; M41.9 Scoliosis, unspecified; Q67.6 Pectus excavatum; M54.9 Dorsalgia, unspecified; M79.604 Pain in right leg; M79.605 Pain in left leg; F41.9 Anxiety disorder, unspecified; F17.200 Nicotine dependence, unspecified, uncomplicated; G89.29 Other chronic pain; F12.90 Cannabis use, unspecified, uncomplicated; I27.20 Pulmonary hypertension, unspecified; I37.1 Nonrheumatic pulmonary valve insufficiency; I08.3 Combined rheumatic disorders of mitral, aortic and tricuspid valves; Z95.1 Presence of aortocoronary bypass graft; Z79.01 Long term (current) use of anticoagulants; Z79.899 Other long term (current) drug therapy; Z88.0 Allergy status to penicillin; Z95.2 Presence of prosthetic heart valve; Z83.0 Family history of human immunodeficiency virus [HIV] disease; Z83.3 Family history of diabetes mellitus; Z20.822 Contact with and (suspected) exposure to COVID-19; Z81.1 Family history of alcohol abuse and dependence; Z83.79 Family history of other diseases of the digestive system; Z53.29 Procedure and treatment not carried out because of patient's decision for other reasons
CPT/HCPCS: 96372; 96374; 96375; 99285; 36415; 93005; 93306; 80061; 80053; 82150; 83690; 83735; 84484 ×2; 85025; 85610 ×2; 85730; 81001; 80306; 87086; 87077; 87186; 87635; 71046; G0378 ×2; J1170 ×2; J1885

== ENCOUNTER 2023-03-21 07:07 | Emergency (ER) | payer OTHER ==
[2023-03-21 07:21] VITALS: RESP 18
--- NOTE | 2023-03-21 07:54 | ED ---
General Adult HPI - General Chief complaint: Overdose Stated complaint: Fall Time Seen by Provider: 03/21/23 07:16 Source: patient, EMS, RN notes reviewed, old records reviewed Mode of arrival: EMS Limitations: no limitations - History of Present Illness Initial comments: 37-year-old female with significant past medical history including Marfan syndrome, polysubstance abuse. Presents after using methamphetamine throughout the night. She was found on a park bench. She was alert but shivering. Patient states she did not eat. She is not suicidal or homicidal. She states she did injure her right hip with a minor fall. - Related Data Home Medications Medication Instructions Recorded Confirmed Warfarin [Coumadin] 5 mg PO [id number]/25/19 10/09/22 Warfarin Sodium 7.5 mg PO [id number]/21/22 10/09/22 Previous Rx's Medication Instructions Recorded Acetaminophen Tab [Tylenol] 650 mg PO Q6HR PRN tab 10/12/22 Enoxaparin [Lovenox] 40 mg SQ DAILY 7 Days #7 each 10/12/22 HYDROcodone/APAP 7.5-325MG [Grundy 1 tab PO Q4H PRN #6 tab 10/12/22 7.5-325] Nicotine 21Mg/24Hr Patch [Habitrol] 1 patch TRANSDERM DAILY patch 10/12/22 Pantoprazole [Protonix] 40 mg PO AC-BRKFST tab 10/12/22 Sennosides-Docusate Sodium 2 each PO HS tab 10/12/22 [Senokot-S] Allergies Allergy/AdvReac Type Severity Reaction Status Date / Time Penicillins Allergy Rash/Hives Verified 03/21/23 07:21 chlordiazepoxide HCl AdvReac SEE COMMENT Verified 03/21/23 07:21 [From Librium] ketorolac [From Toradol] AdvReac ANXIETY Verified 03/21/23 07:21 morphine AdvReac Unknown Verified 03/21/23 07:21 prochlorperazine edisylate AdvReac PANIC Verified 03/21/23 07:21 [From Compazine] ATTACK prochlorperazine maleate AdvReac PANIC Verified 03/21/23 07:21 [From Compazine] ATTACK Review of Systems ROS Statement: Those systems with pertinent positive or pertinent negative responses have been documented in the HPI. ROS Other: All systems not noted in ROS Statement are negative. Past Medical History Past Medical History: Heart Failure, CVA/TIA, Liver Disease, Neurologic Disorder, Osteoarthritis (OA), Pneumonia, Seizure Disorder Additional Past Medical History / Comment(s): Stroke with residual right-sided weakness 2017, TIAs, marfan's syndrome, ArnoldChiari malformation, spontaneous pneumothorax x 21, scoliosis and pectus excavatum secondary to Marfan's, chronic back pain, bilateral leg pain, gastric ulcers, sinus infections, STATED HAS POOR CIRCULATION, viral meningitis, HEP C. 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 spleenectomy 2018, L upper lobectomy d/t pneumothoraxs. Past Anesthesia/Blood Transfusion Reactions: No Reported Reaction Past Psychological History: Anxiety Smoking Status: Current every day smoker Past Alcohol Use History: None Reported, Occasional Past Drug Use History: Marijuana, Methamphetamine, Prescription Drug Abuse - Past Family History Father Additional Family Medical History / Comment(s): Father is with history of AIDS. Mother Family Medical History: Diabetes Mellitus Additional Family Medical History / Comment(s): Mother at age 49 from liver cirrhosis secondary to alcohol abuse. Brother(s) Additional Family Medical History / Comment(s): Patient has one brother with no major medical problems. General Exam Limitations: no limitations General appearance: alert Head exam: Present: atraumatic, normocephalic Eye exam: Present: normal appearance, PERRL Neck exam: Present: normal inspection. Absent: tenderness, meningismus Respiratory exam: Present: normal lung sounds bilaterally. Absent: respiratory distress, wheezes Cardiovascular Exam: Present: regular rate, normal rhythm GI/Abdominal exam: Present: soft. Absent: distended, tenderness Extremities exam: Present: normal inspection, full ROM, tenderness (Social range of motion but there is pain in the right hip with flexion) Neurological exam: Present: alert, oriented X3, CN II-XII intact. Absent: motor sensory deficit Psychiatric exam: Present: flat affect Skin exam: Present: warm, dry, intact Course Vital Signs 03/21/23 03/21/23 07:15 08:07 Temperature 97.4 F L Pulse Rate 86 85 Respiratory 18 18 Rate Blood Pressure 144/85 121/66 O2 Sat by Pulse 97 95 Oximetry Medical Decision Making - Medical Decision Making Was pt. sent in by a medical professional or institution (, VERONICA, ROLL LINE OPERATOR, urgent care, hospital, or prison...) When possible be specific @ -No Did you speak to anyone other than the patient for history (EMS, parent, family, police, friend...)? What history was obtained from this source @Paramedics Did you review nursing and triage notes (agree or disagree)? Why? @ -I reviewed and agree with nursing and triage notes Were old charts reviewed (outside hosp., previous admission, EMS record, old EKG, old radiological studies, urgent care reports/EKG's, prison records)? Report findings @ -No old charts were reviewed Differential Diagnosis (chest pain, altered mental status, abdominal pain women, abdominal pain men, vaginal bleeding, weakness, fever, dyspnea, syncope, headache, dizziness, GI bleed, back pain, seizure, CVA, palpatations, mental health, musculoskeletal)? @Polysubstance abuse, methamphetamine abuse EKG interpreted by me (3pts min.). @ -As above X-rays interpreted by me (1pt min.). @Right hip x-ray reviewed, lucency in the greater trochanter. CT interpreted by me (1pt min.). @ -CT of right hip shows no fracture or acute abnormality U/S interpreted by me (1pt. min.). @ -None done What testing was considered but not performed or refused? (CT, X-rays, U/S, labs)? Why? @ -None What meds were considered but not given or refused? Why? @ -None Did you discuss the management of the patient with other professionals (professionals i.e. VERONICA Corona, ROLL LINE OPERATOR, lab, RT, psych nurse, social insurance specialist, php lamp developer, teacher, health officer, case filler)? Give summary @ -No Was smoking cessation discussed for >3mins.? @ -No Was critical care preformed (if so, how long)? @ -No Were there social determinants of health that impacted care today? How? (Homelessness, low income, unemployed, alcoholism, drug addiction, transpor tation, low edu. Level, literacy, decrease access to med. care, [place] [facility], rehab)? @ -No Was there de-escalation of care discussed even if they declined (Discuss DNR or withdrawal of care, Hospice)? DNR status @ -No What co-morbidities impacted this encounter? (DM, HTN, Smoking, COPD, CAD, Cancer, CVA, ARF, Chemo, Hep., AIDS, mental health diagnosis, sleep apnea, morbid obesity)? @ -[Marfan syndrome, coronary artery disease, Was patient admitted / discharged? Hospital course, mention meds given and route, prescriptions, significant lab abnormalities, going to OR and other pertinent info. @ -37-year-old female with methamphetamine abuse, found sleeping in a park. Patient alert and oriented, stable vitals, admits to methamphetamine use. She did have a fall x-ray was ordered which showed a lucency in the greater trochanter and CT was performed which was negative for fracture. Patient observed in the emergency department, ambulatory, eating and drinking. She is not suicidal. Discharged in stable condition. Undiagnosed new problem with uncertain prognosis? @ -No Drug Therapy requiring intensive monitoring for toxicity (Heparin, Nitro, Insulin, Cardizem)? @ -No Were any procedures done? @ -No Diagnosis/symptom? @ -Methamphetamine abuse Acute, or Chronic, or Acute on Chronic? @Acute Uncomplicated (without systemic symptoms) or Complicated (systemic symptoms)? @ -default Side effects of treatment? @ -No Exacerbation, Progression, or Severe Exacerbation? @ -No Poses a threat to life or bodily function? How? (Chest pain, [place], [place], pneumonia, PE, COPD, DKA, ARF, appy, cholecystitis, CVA, Diverticulitis, Homicidal, Suicidal, threat to staff... and all critical care pts) @ -[Yes, polysubstance abuse Disposition Clinical Impression: Methamphetamine abuse Disposition: HOME SELF-CARE Condition: Fair Instructions (If sedation given, give patient instructions): Adult Overdose (ED) Is patient prescribed a controlled substance at d/c from ED?: No Referrals: None,Stated [Primary Care Provider] - 1-2 days Barby King MD [REFERRING] - 1-2 days
--- NOTE | 2023-03-21 08:13 | XR ---
EXAMINATION TYPE: XR Hip Complete 2 views RT DATE OF EXAM: 03/21/2023 Comparison: 10/11/2022 Clinical History: 37-year-old female with pain after fall Findings: Images show placement of right hip hemiarthroplasty. The femoral stem component appears well-seated. 2 proximal cerclage wires are noted. There appears to be a vertically oriented lucency projecting at the greater trochanter on the frog-leg lateral view. No periprosthetic fracture seen along the femora l stem component. Impression: Previous right hip hemiarthroplasty. On the frog-leg lateral view, unable to exclude a nondisplaced f racture through the greater trochanter. No periprosthetic fracture along the femoral stem component.
--- NOTE | 2023-03-21 09:11 | CT ---
EXAMINATION TYPE: CT hip RT wo con DATE OF EXAM: 03/21/2023 COMPARISON: Plain films 03/21/2023 HISTORY: Found in park, right hip injury. CT DLP: 493.5 mGycm Automated exposure control for dose reduction was used. Contrast: None Technique: Axial images 3 mm thick sections. Reconstructed images in the coronal and sagittal planes. FINDINGS: Portion of the sacroiliac joint within the field of view appears unremarkable. There is a right hip prosthesis causing beam hardening artifact. No acute fractures are identified. Cerclage wires are present. Prosthesis appears to articulate clive lly with the acetabulum. There is some lucency within the greater trochanter. Sclerotic margins appear to be present and this does not appear to extend beyond the greater trochanter is likely old change accounting for the appea char on the plain films. Correlate with location of the patient's pain. IMPRESSION: 1. NO ACUTE OSSEOUS ABNORMALITY RADIOGRAPHICALLY EVIDENT.
[2023-03-21 10:13] VITALS: BP 135/64; PULSE 87; TEMP 97.8
== END 2023-03-21 10:05 | disposition home or self-care (01) ==
LOC: EC 07:07
DX: F15.10 Other stimulant abuse, uncomplicated (principal); M25.551 Pain in right hip; F12.90 Cannabis use, unspecified, uncomplicated; F17.200 Nicotine dependence, unspecified, uncomplicated; I50.9 Heart failure, unspecified; Z79.01 Long term (current) use of anticoagulants; Z88.0 Allergy status to penicillin; Z88.5 Allergy status to narcotic agent; Z88.8 Allergy status to other drugs, medicaments and biological substances; Z95.1 Presence of aortocoronary bypass graft; Z96.641 Presence of right artificial hip joint; Z86.73 Personal history of transient ischemic attack (TIA), and cerebral infarction without residual deficits; W19.XXXA Unspecified fall, initial encounter
CPT/HCPCS: 73502; 99285

== ENCOUNTER 2023-04-04 22:57 | Emergency (ER) | payer OTHER ==
[2023-04-04 23:03] VITALS: TEMP 98.4
[2023-04-04] MEDS ORDERED: HYDROmorphone 1 MG/ML 1 ML SYRINGE IVP STA (23:08)
--- NOTE | 2023-04-04 23:28 | ED ---
Chest Pain HPI - General Chief Complaint: Chest Pain Stated Complaint: Chest Pain Time Seen by Provider: 04/04/23 23:00 Source: patient, EMS Mode of arrival: EMS Limitations: no limitations - History of Present Illness Initial Comments: 37 year old female with past medical history of Marfan syndrome, CVA with residual right-sided deficits, spontaneous pneumothoraces, aortic dissection with acsending aortic root graft and mechanical aortic valve who presents to the emergency department with reported chest pain. History is difficult to obtain as the patient is erratic and yelling. EMS states that the patient began having chest pain just prior to calling EMS. She states the pain is located in the left side of her chest. She is supposed to be on Coumadin. Has not been taking her medications as directed. Aunt at bedside states that she has not taken the medications in greater than 2 weeks. She continues to abuse methamphetamines. Patient unwilling to participate in any further history and therefore HPI is difficult to obtain - Related Data Home Medications Medication Instructions Recorded Confirmed Warfarin [Coumadin] 5 mg PO [id number]/25/19 10/09/22 Warfarin Sodium 7.5 mg PO [id number]/21/22 10/09/22 Previous Rx's Medication Instructions Recorded Acetaminophen Tab [Tylenol] 650 mg PO Q6HR PRN tab 10/12/22 Enoxaparin [Lovenox] 40 mg SQ DAILY 7 Days #7 each 10/12/22 HYDROcodone/APAP 7.5-325MG [[place] 1 tab PO Q4H PRN #6 tab 10/12/22 7.5-325] Nicotine 21Mg/24Hr Patch [Habitrol] 1 patch TRANSDERM DAILY patch 10/12/22 Pantoprazole [Protonix] 40 mg PO AC-BRKFST tab 10/12/22 Sennosides-Docusate Sodium 2 each PO HS tab 10/12/22 [Senokot-S] Allergies Allergy/AdvReac Type Severity Reaction Status Date / Time Penicillins Allergy Rash/Hives Verified 04/04/23 23:03 chlordiazepoxide HCl AdvReac SEE COMMENT Verified 04/04/23 23:03 [From Librium] ketorolac [From Toradol] AdvReac ANXIETY Verified 04/04/23 23:03 morphine AdvReac Unknown Verified 04/04/23 23:03 prochlorperazine edisylate AdvReac PANIC Verified 04/04/23 23:03 [From Compazine] ATTACK prochlorperazine maleate AdvReac PANIC Verified 04/04/23 23:03 [From Compazine] ATTACK Review of Systems ROS Statement: Those systems with pertinent positive or pertinent negative responses have been documented in the HPI. ROS Other: All systems not noted in ROS Statement are negative. Past Medical History Past Medical History: Heart Failure, CVA/TIA, Liver Disease, Neurologic Disorder, Osteoarthritis (OA), Pneumonia, Seizure Disorder Additional Past Medical History / Comment(s): Stroke with residual right-sided weakness 2017, TIAs, marfan's syndrome, ArnoldChiari malformation, spontaneous pneumothorax x 21, scoliosis and pectus excavatum secondary to Marfan's, chronic back pain, bilateral leg pain, gastric ulcers, sinus infections, STATED HAS POOR CIRCULATION, viral meningitis, HEP C. 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 spleenectomy 2018, L upper lobectomy d/t pneumothoraxs. Past Anesthesia/Blood Transfusion Reactions: No Reported Reaction Past Psychological History: Anxiety Smoking Status: Current every day smoker Past Alcohol Use History: None Reported, Occasional Past Drug Use History: Marijuana, Methamphetamine, Prescription Drug Abuse - Past Family History Father Additional Family Medical History / Comment(s): Father is with history of AIDS. Mother Family Medical History: Diabetes Mellitus Additional Family Medical History / Comment(s): Mother at age 49 from liver cirrhosis secondary to alcohol abuse. Brother(s) Additional Family Medical History / Comment(s): Patient has one brother with no major medical problems. General Exam Limitations: altered mental status General appearance: alert, in distress, other (Yelling at staff) Head exam: Present: atraumatic, normocephalic, normal inspection Eye exam: Present: normal appearance, PERRL, EOMI. Absent: scleral icterus, conjunctival injection, periorbital swelling ENT exam: Present: normal exam, mucous membranes moist Respiratory exam: Present: normal lung sounds bilaterally, other (Significant scoliotic curve). Absent: respiratory distress, wheezes, rales, rhonchi, stridor Cardiovascular Exam: Present: clicks, other (Mechanical valve click appreciated) GI/Abdominal exam: Present: soft, normal bowel sounds. Absent: distended, tenderness, guarding, rebound, rigid Neurological exam: Present: alert, oriented X3 Psychiatric exam: Present: agitated Course Vital Signs 04/04/23 04/05/23 04/05/23 22:58 00:02 02:00 Temperature 98.4 F Pulse Rate 96 98 87 Respiratory 22 22 20 Rate Blood Pressure 175/82 176/88 155/75 O2 Sat by Pulse 100 99 98 Oximetry - Reevaluation(s) Reevaluation #1: Spoke with radiologist regarding read 04/05/23 0151 Reevaluation #2: Speaking with [facility] to transfer patient 04/05/23 02:20 Reevaluation #3: Have spoken with cardiothoracic surgeon Dr. Ni, ER doctor Dr. Mcclendon, and Dr. Berman vascular surgeon at [facility] who all accept the patient 04/05/23 02:51 Chest Pain MDM - MDM Was pt. sent in by a medical professional or institution (, PA, STEREOPTIC PROJECTION TOPOGRAPHER, urgent care, hospital, or alf...) When possible be specific @ -No Did you speak to anyone other than the patient for history (EMS, parent, family, police, friend...)? What history was obtained from this source @ -EMS help provide history Did you review nursing and triage notes (agree or disagree)? Why? @ -I reviewed and agree with nursing and triage notes Were old charts reviewed (outside hosp., previous admission, EMS record, old EKG, old radiological studies, urgent care reports/EKG's, alf records)? Report findings @ -Old charts were reviewed. CT imaging from October of this year Differential Diagnosis (chest pain, altered mental status, abdominal pain women, abdominal pain men, vaginal bleeding, weakness, fever, dyspnea, syncope, headache, dizziness, GI bleed, back pain, seizure, CVA, palpatations, mental health, musculoskeletal)? @ -Differential Chest Pain: Stable Angina, Unstable Angina, STEMI, NSTEMI Aortic Dissection, Pneumothorax, Musculoskeletal, Esophageal Spasm GERD, Cholecystitis, Pancreatitis, Zoster, this is not meant to be an all-inclusive list. EKG interpreted by me (3pts min.). @ -Yes and demonstrates sinus rhythm with a rate of 91. NC interval of 156. QRS 116. QTC of 448. ST depression V4 through V6. No acute ST segment elevation X-rays interpreted by me (1pt min.). @ -None done CT interpreted by me (1pt min.). @ -Yes and demonstrates extending aortic dissection U/S interpreted by me (1pt. min.). @ -None done What testing was considered but not performed or refused? (CT, X-rays, U/S, labs)? Why? @ -None What meds were considered but not given or refused? Why? @ -None Did you discuss the management of the patient with other professionals (professionals i.e. , PA, STEREOPTIC PROJECTION TOPOGRAPHER, lab, RT, psych nurse, social and political studies professor, provider service representative, teacher, artillery officer, geriatric case manager)? Give summary @ -Spoke with cardiothoracic's, vascular and ER physician at [facility] Was smoking cessation discussed for >3mins.? @ -No Was critical care preformed (if so, how long)? @ -Yes, 76 minutes Were there social determinants of health that impacted care today? How? (Homelessness, low income, unemployed, alcoholism, drug addiction, transportation, low edu. Level, literacy, decrease access to med. care, m[facility], rehab)? @ -Homelessness, drug addiction Was there de-escalation of care discussed even if they declined (Discuss DNR or withdrawal of care, Hospice)? DNR status @ -No What co-morbidities impacted this encounter? (DM, HTN, Smoking, COPD, CAD, Cancer, CVA, ARF, Chemo, Hep., AIDS, mental health diagnosis, sleep apnea, morbid obesity)? @ -Marfan syndrome, previous aortic dissection Was patient admitted / discharged? Hospital course, mention meds given and route, prescriptions, significant lab abnormalities, going to OR and other pertinent info. @ -Upon arrival patient was evaluated immediately with EMS at bedside. IV was established using ultrasound as patient is a very hard access. She did refuse IV access several times and needed coaxing in order to obtain the line. Patient was sent for CT because of known previous aortic history. Patient states she cannot tolerate the exam due to pain. She was given 1 mg of Dilaudid. Patient does attempt CT once again however refuses. I did speak with the patient on several occasions. Laboratory studies are within normal limits however cannot adequately manage patient without imaging. Patient is finally agreeable to go over to CAT scan for a third time. I do receive a call from the radiologist which demonstrates that the patient's aortic dissection has extended from her ascending aorta to the descending aorta. Ascending aorta appears stable in regards to repair however the abdominal aorta is completely involved extending down to the left common iliac. Patient was given 50 g of fentanyl and 2 mg of Ativan. Esmolol drip is ordered. Patient will be transferred to [facility]. I did speak with Dr. Ni - cardiothoracic surgery, Dr. Mcclendon - physician and Dr. Berman from vascular surgery. COBRA forms are signed. Patient is sent priority one with a guarded prognosis Undiagnosed new problem with uncertain prognosis? @ -Yes Drug Therapy requiring intensive monitoring for toxicity (Heparin, Nitro, Insulin, Cardizem)? @ -Yes, esmolol Were any procedures done? @ -No Diagnosis/symptom? @ -Acute chest pain, acute descending aortic dissection Acute, or Chronic, or Acute on Chronic? @ -Acute on chronic Uncomplicated (without systemic symptoms) or Complicated (systemic symptoms)? @ -Complicated Side effects of treatment? @ -No Exacerbation, Progression, or Severe Exacerbation? @ -No Poses a threat to life or bodily function? How? (Chest pain, [place], [place], pneumonia, PE, COPD, DKA, ARF, appy, cholecystitis, CVA, Diverticulitis, Homicidal, Suicidal, threat to staff... and all critical care pts) @ -Yes Disposition Clinical Impression: Chest pain, Aortic dissection Disposition: OTHER INSTITUTION NOT DEFINED Condition: Critical Is patient prescribed a controlled substance at d/c from ED?: No Referrals: None,Stated [Primary Care Provider] - 1-2 days Time of Disposition: 03:04 - Out of Hospital Transfer - Req. Specs Out of Hospital Transfer - Requested Specifics: Other Emergency Center ([facility])
[2023-04-05] MEDS ORDERED: HYDROmorphone 1 MG/ML 1 ML SYRINGE IM STA (00:06)
[2023-04-05 00:27] LABS: Basophils # (A) 0.1 k/uL (0-0.2); Basophils % (A) 1 %; Eosinophils # (A) 0.2 k/uL (0-0.7); Eosinophils % (A) 2 %; HCT 42.9 % (34.0-46.0); HGB 13.7 gm/dL (11.4-16.0); Lymphocytes # (A) 1.6 k/uL (1.0-4.8); Lymphocytes % (A) 15 %; MCH 30.9 pg (25.0-35.0); MCHC 31.9 g/dL (31.0-37.0); MCV 96.9 fL (80.0-100.0); Mean Platelet Volume 7.8; Monocytes # (A) 0.5 k/uL (0-1.0); Monocytes % (A) 5 %; Neutrophils # (A) 7.9 k/uL (1.3-7.7); Neutrophils % (A) 76 %; Platelet Count 265 k/uL (150-450); RBC 4.43 m/uL (3.80-5.40); RDW 15.2 % (11.5-15.5); WBC 10.5 k/uL (3.8-10.6)
[2023-04-05 00:36] LABS: ALT 15 U/L (4-34); AST 30 U/L (14-36); African American GFR (CKD) >90 (>60 ml/min/1.73 sqM); Albumin 4.2 g/dL (3.5-5.0); Alkaline Phosphatase 109 U/L (38-126); Anion Gap 9 mmol/L; Blood Urea Nitrogen 12 mg/dL (7-17); Calcium 8.7 mg/dL (8.4-10.2); Carbon Dioxide 25 mmol/L (22-30); Chloride 105 mmol/L (98-107); Glucose 101 mg/dL (74-99); Non-African American GFR(CKD) >90 (>60 ml/min/1.73 sqM); Partial Thromboplastin Time 24.9 sec (22.0-30.0); Potassium 3.9 mmol/L (3.5-5.1); Prothrombin Time 10.6 sec (9.0-12.0); Sodium 139 mmol/L (137-145); Total Bilirubin 0.8 mg/dL (0.2-1.3); Total Protein 8.4 g/dL (6.3-8.2)
[2023-04-05 00:44] LABS: NT-Pro-B-Type Natriuretic Pept 1740 pg/mL
--- NOTE | 2023-04-05 01:47 | CT ---
EXAM: CT Angiography Chest Without and With Intravenous Contrast CLINICAL HISTORY: dissection TECHNIQUE: Axial computed tomographic angiography images of the chest without and with intravenous contrast. CTDI is 16 mGy and DLP is 1153.1 mGy-cm. This CT exam was performed using one or more of the following dose reduction techniques: automated exposure control, adjustment of the mA and/or kV according to patient size, and/or use of iterative reconstruction technique. MIP reconstructed images were created and reviewed. COMPARISON: CTA chest dated 10/20/2021 FINDINGS: Pulmonary arteries: Unremarkable. No pulmonary embolism. Aorta: There is new extension of the dissection to involve the descending thoracic aorta and abdominal aorta the descending aorta is larger in size, measuring 3 cm in diameter proximally from 2.6 cm in diameter previously. The mid descending aorta measures 2.7 cm from 2.1 cm previously. Both the true lumen and the false lumen enhance with the false lumen slightly less hyperattenuating. No acute periaortic abnormality. Great vessels of aortic arch: The proximal great vessels are not included, limiting evaluation for potential dissection extension. Lungs: Unremarkable. No mass. No consolidation. Pleural space: Unremarkable. No significant effusion. No pneumothorax. Heart: Similar postsurgical changes with aortic valve replacement and repair of the ascending aorta. The aortic arch is incompletely included. However in the dissection involving the proximal to mid aortic arch remains. There is interval increase in size of the proximal aortic arch, now measuring 5.8 cm in diameter from 5.1 cm previously. No intimal wall abnormality noted on precontrast imaging. No acute periaortic abnormality. Global cardiomegaly. No pericardial effusion. Calcification anterior to the right ventricle and the presumed pericardium is noted. Bones/joints: Similar scoliosis and dysmorphic appearance of the osseous thorax. No acute osseous abnormality. Prior lateral plate and threaded screw fixation of the proximal humerus. No dislocation. Soft tissues: Unremarkable. Lymph nodes: Unremarkable. No enlarged lymph nodes. IMPRESSION: 1. Similar postsurgical changes with aortic valve replacement and repair of the ascending aorta. The aortic arch is incompletely included. However in the dissection involving the proximal to mid aortic arch remains. There is interval increase in size of the proximal aortic arch, now measuring 5.8 cm in diameter from 5.1 cm previously. No intimal wall abnormality noted on precontrast imaging. No acute periaortic abnormality. 2. There is new extension of the dissection to involve the descending thoracic aorta and abdominal aorta the descending aorta is larger in size, measuring 3 cm in diameter proximally from 2.6 cm in diameter previously. The mid descending aorta measures 2.7 cm from 2.1 cm previously. Both the true lumen and the false lumen enhance with the false lumen slightly less hyperattenuating. No acute periaortic abnormality. 3. The proximal great vessels are not included, limiting evaluation for potential dissection extension. Recommend imaging to include the proximal vessels, when appropriate. EXAM: CT Angiography Abdomen and Pelvis Without and With Intravenous Contrast CLINICAL HISTORY: dissection TECHNIQUE: Axial computed tomographic angiography images of the abdomen and pelvis without and with intravenous contrast. CTDI is 16.2 mGy and DLP is 1153. 1 mGy-cm. This CT exam was performed using one or more of the following dose reduction techniques: automated exposure control, adjustment of the mA and/or kV according to patient size, and/or use of iterative reconstruction technique. MIP reconstructed images were created and reviewed. COMPARISON: No relevant prior studies available. FINDINGS: Limitations: There is respiratory artifact, which degrades image quality on multiple image slices. VASCULATURE: Aorta: The thoracoabdominal aortic dissection extends to involve the entire abdominal aorta and extends into the proximal left common iliac artery. Both the true and false lumen enhance with the true lumen hyperattenuating in appearance. Precontrast imaging demonstrates no obvious intimal wall abnormality. However, evaluation is limited by respiratory artifact. Celiac trunk and mesenteric arteries: There is narrowing at the ostium of the celiac axis. The celiac artery, superior mesenteric artery and both renal arteries extending from the true lumen. There are two right renal arteries. Renal arteries: See above. Iliac arteries: The iliac arteries are otherwise patent without stenosis or occlusion. Lung bases: Unremarkable. No mass. No consolidation. ABDOMEN: Liver: Unremarkable. No mass. Gallbladder and bile ducts: Unremarkable. No calcified stones. No ductal dilation. Pancreas: Unremarkable. No ductal dilation. No mass. Spleen: Unremarkable. No splenomegaly. Adrenals: Unremarkable. No mass. Kidneys and ureters: The right kidney is noted in the pelvis. Both kidneys demonstrate normal enhancement. No obstructing stones. No hydronephrosis. Stomach and bowel: Evaluation of the bowel is somewhat limited by respiratory artifact. No evidence for bowel obstruction. No mucosal thickening. PELVIS: Appendix: No findings to suggest acute appendicitis. Bladder: Unremarkable. No stones. No mass. Reproductive: Unremarkable as visualized. ABDOMEN and PELVIS: Intraperitoneal space: Unremarkable. No significant fluid collection. No free air. Bones/joints: Ectasia at the central canal throughout the lumbar spine with prominence of the central canal at the sacrum with scalloping of the posterior vertebral bodies. No acute osseous abnormality. Prior ORIF of the proximal left femur. Prior right hip replacement. No dislocation. Soft tissues: Unremarkable. Lymph nodes: Unremarkable. No enlarged lymph nodes. IMPRESSION: 1. The thoracoabdominal aortic dissection extends to involve the entire abdominal aorta and extends into the proximal left common iliac artery. Both the true and false lumen enhance with the true lumen hyperattenuating in appearance. Precontrast imaging demonstrates no obvious intimal wall abnormality. However, evaluation is limited by respiratory artifact. 2. There is narrowing at the ostium of the celiac axis. The celiac artery, superior mesenteric artery and both renal arteries extending from the true lumen. There are two right renal arteries. <MYCVCSECTION> Communications: 04/05/23 01:51 Call Doctor Regarding Aortic Dissection, called Dr. Casillas on 04/05 01:51 (-04:00)
[2023-04-05] MEDS ORDERED: fentaNYL (PF) 50 MCG/ML 2 ML AMP IVP STA (01:54)
[2023-04-05] MEDS ORDERED: ESMOLOL IN SODIUM CHLORIDE PMX 2.5 GM in SALINE 1 250ML.BAG IV ONE (02:00)
[2023-04-05 02:01] VITALS: PULSE 87
[2023-04-05] MEDS ORDERED: LORazepam 2 MG/ML INJ IV STA (02:50)
[2023-04-05 03:07] VITALS: BP 158/89; RESP 16
== END 2023-04-05 03:33 | disposition other institution (70) ==
LOC: EC 22:57
DX: I71.00 Dissection of unspecified site of aorta (principal); R07.89 Other chest pain; I50.9 Heart failure, unspecified; F12.90 Cannabis use, unspecified, uncomplicated; F17.200 Nicotine dependence, unspecified, uncomplicated; Z86.59 Personal history of other mental and behavioral disorders; Z79.01 Long term (current) use of anticoagulants
CPT/HCPCS: 36415; 93005; 83880; 80053; 83735; 84484; 85025; 85610; 85730; 84703; 71275; 74174; 99291; 99292; 96365; 96375 ×2; 96372; J2060; J3010; J1170; Q9967

== ENCOUNTER 2023-04-24 17:59 | Emergency (ER) | payer OTHER ==
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
[2023-04-24 18:35] VITALS: BP 194/102; PULSE 71; RESP 20; TEMP 97.7
[2023-04-24 22:17] LABS: Amphetamine Screen,Urine Detected (NotDetected); Barbiturate Screen,Urine Not Detected (NotDetected); Benzodiazepines Screen,Urine Not Detected (NotDetected); Cocaine Screen,Urine Not Detected (NotDetected); Methadone Screen, Urine Not Detected (NotDetected); Opiate Screen,Urine Not Detected (NotDetected); Oxycodone Screen, Urine Not Detected (NotDetected); Phencyclidine Screen,Urine Not Detected (NotDetected); Tricyclic Antidepressant,Urine Not Detected (NotDetected); Urn Cannabinoid Scrn Detected (NotDetected)
== END 2023-04-25 03:29 | disposition home or self-care (01) ==
LOC: EC 17:59
DX: F23 Brief psychotic disorder (principal); I50.9 Heart failure, unspecified; F17.200 Nicotine dependence, unspecified, uncomplicated; Z88.0 Allergy status to penicillin; Z88.5 Allergy status to narcotic agent; Z88.8 Allergy status to other drugs, medicaments and biological substances; Z95.1 Presence of aortocoronary bypass graft; Z86.59 Personal history of other mental and behavioral disorders; Z20.822 Contact with and (suspected) exposure to COVID-19
CPT/HCPCS: 80306; 82075; 87635; 99284

== ENCOUNTER 2023-11-23 16:26 | Emergency (ER) | payer OTHER ==
[2023-11-23] MEDS: SODIUM CHLORIDE 0.9% 500 ML 500 ML IV STA (17:21)
[2023-11-23] MEDS: METOCLOPRAMIDE 5 MG/ML 2 ML VIAL IVP STA (17:23)
[2023-11-23] MEDS: diphenhydrAMINE 50 MG/ML 1 ML VIAL IVP STA (17:25)
[2023-11-23] MEDS: HYDROmorphone 1 MG/ML 1 ML SYRINGE IVP STA (17:25)
[2023-11-23 17:37] LABS: Basophils # (A) 0.1 k/uL (0-0.2); Basophils % (A) 1 %; Eosinophils # (A) 0.2 k/uL (0-0.7); Eosinophils % (A) 2 %; HCT 41.7 % (34.0-46.0); Hypochromasia Slight; Lymphocytes # (A) 2.2 k/uL (1.0-4.8); Lymphocytes % (A) 23 %; MCH 30.7 pg (25.0-35.0); MCHC 31.1 g/dL (31.0-37.0); MCV 98.6 fL (80.0-100.0); Mean Platelet Volume 8.6; Monocytes # (A) 0.6 k/uL (0-1.0); Monocytes % (A) 6 %; Neutrophils # (A) 6.2 k/uL (1.3-7.7); Neutrophils % (A) 66 %; Platelet Count 211 k/uL (150-450); RBC 4.23 m/uL (3.80-5.40); RDW 14.3 % (11.5-15.5); WBC 9.3 k/uL (3.8-10.6)
--- NOTE | 2023-11-23 17:53 | ED ---
Headache HPI - General Chief Complaint: Headache Stated Complaint: Migraines Time Seen by Provider: 11/23/23 16:40 Mode of arrival: EMS Limitations: physical limitation - History of Present Illness Initial Comments: 38-year-old female with past medical history of Marfan's, aortic dissection with valve repair who presents emergency department reporting migraine. States that she has a history of migraines. She took Aleve at home without any improvement in her symptoms. She denies photophobia. No numbness, tingling or weakness in her extremities. Denies any recent head trauma. No neck pain or stiffness. Denies any fevers. No visual disturbance. She denies nausea or vomiting. Denies concern for . No chest pain or shortness of breath. No other alleviating, precipitating modifying factors - Related Data Home Medications Medication Instructions Recorded Confirmed Warfarin [Coumadin] 5 mg PO HS 07/25/19 04/24/23 Unknown Blood Pressure Medication 1 dose PO DIRECTED PRN 04/24/23 04/24/23 Previous Rx's Medication Instructions Recorded Warfarin [Coumadin] 7.5 mg PO DAILY #30 tab 11/23/23 Allergies Allergy/AdvReac Type Severity Reaction Status Date / Time Penicillins Allergy Rash/Hives Verified 04/24/23 18:35 chlordiazepoxide HCl AdvReac SEE COMMENT Verified 04/24/23 18:35 [From Librium] ketorolac [From Toradol] AdvReac ANXIETY Verified 04/24/23 18:35 morphine AdvReac Unknown Verified 04/24/23 18:35 prochlorperazine edisylate AdvReac PANIC Verified 04/24/23 18:35 [From Compazine] ATTACK prochlorperazine maleate AdvReac PANIC Verified 04/24/23 18:35 [From Compazine] ATTACK Review of Systems ROS Statement: Those systems with pertinent positive or pertinent negative responses have been documented in the HPI. ROS Other: All systems not noted in ROS Statement are negative. Past Medical History Past Medical History: Heart Failure, CVA/TIA, Liver Disease, Neurologic Disorder, Osteoarthritis (OA), Pneumonia, Seizure Disorder Additional Past Medical History / Comment(s): Stroke with residual right-sided weakness 2017, TIAs, marfan's syndrome, ArnoldChiari malformation, spontaneous pneumothorax x 21, scoliosis and pectus excavatum secondary to Marfan's, chronic back pain, bilateral leg pain, gastric ulcers, sinus infections, STATED HAS POOR CIRCULATION, viral meningitis, HEP C. 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 spleenectomy 2018, L upper lobectomy d/t pneumothoraxs. Past Anesthesia/Blood Transfusion Reactions: No Reported Reaction Past Psychological History: Anxiety Smoking Status: Current every day smoker Past Alcohol Use History: None Reported, Occasional Past Drug Use History: Marijuana, Methamphetamine, Prescription Drug Abuse - Past Family History Father Additional Family Medical History / Comment(s): Father is with history of AIDS. Mother Family Medical History: Diabetes Mellitus Additional Family Medical History / Comment(s): Mother at age 49 from liver cirrhosis secondary to alcohol abuse. Brother(s) Additional Family Medical History / Comment(s): Patient has one brother with no major medical problems. General Exam Limitations: physical limitation General appearance: alert, in no apparent distress Head exam: Present: atraumatic, normocephalic, normal inspection Eye exam: Present: normal appearance, PERRL, EOMI. Absent: scleral icterus, conjunctival injection, periorbital swelling ENT exam: Present: normal exam, mucous membranes moist Respiratory exam: Present: normal lung sounds bilaterally, other (Significant scoliosis) Cardiovascular Exam: Present: regular rate, normal rhythm, normal heart sounds. Absent: systolic murmur, diastolic murmur, rubs, gallop, clicks Neurological exam: Present: alert Skin exam: Present: warm, dry, intact, normal color. Absent: rash Course Vital Signs 11/23/23 11/23/23 16:36 18:20 Temperature 97.9 F 98.1 F Pulse Rate 94 68 Respiratory 20 18 Rate Blood Pressure 97/70 105/68 O2 Sat by Pulse 96 97 Oximetry Medical Decision Making - Medical Decision Making Was pt. sent in by a medical professional or institution (, PA, RN PROCEDURES, urgent care, hospital, or [facility]...) When possible be specific @ -No Did you speak to anyone other than the patient for history (EMS, parent, family, police, friend...)? What history was obtained from this source @ -EMS Did you review nursing and triage notes (agree or disagree)? Why? @ -I reviewed and agree with nursing and triage notes Were old charts reviewed (outside hosp., previous admission, EMS record, old EKG, old radiological studies, urgent care reports/EKG's, [facility] records)? Report findings @ -No old charts were reviewed Differential Diagnosis (chest pain, altered mental status, abdominal pain women, abdominal pain men, vaginal bleeding, weakness, fever, dyspnea, syncope, headache, dizziness, GI bleed, back pain, seizure, CVA, palpatations, mental health, musculoskeletal)? @ -Differential Headache: Migraine, tension, cluster, carbon monoxide, central venous thrombosis, pension karma temporal arteritis, acute closure glaucoma, intercranial hemorrhage, mastoiditis, sinusitis, head injury, this is not meant to be an all-inclusive list. EKG interpreted by me (3pts min.). @ -Not done X-rays interpreted by me (1pt min.). @ -None done CT interpreted by me (1pt min.). @ -None done U/S interpreted by me (1pt. min.). @ -None done What testing was considered but not performed or refused? (CT, X-rays, U/S, labs)? Why? @ -None What meds were considered but not given or refused? Why? @ -None Did you discuss the management of the patient with other professionals (professionals i.e. , PA, RN PROCEDURES, lab, RT, psych nurse, social and political studies professor, dictaphone mechanic, teacher, consular officer, top case assembler)? Give summary @ -No Was smoking cessation discussed for >3mins.? @ -No Was critical care preformed (if so, how long)? @ -No Were there social determinants of health that impacted care today? How? (Homelessness, low income, unemployed, alcoholism, drug addiction, transportation, low edu. Level, literacy, decrease access to med. care, [facility], rehab)? @ -No Was there de-escalation of care discussed even if they declined (Discuss DNR or withdrawal of care, Hospice)? DNR status @ -No What co-morbidities impacted this encounter? (DM, HTN, Smoking, COPD, CAD, Cancer, CVA, ARF, Chemo, Hep., AIDS, mental health diagnosis, sleep apnea, morbid obesity)? @ -Zane's Was patient admitted / discharged? Hospital course, mention meds given and route, prescriptions, significant lab abnormalities, going to OR and other pertinent info. @ -Upon arrival patient was placed in room 31. Thorough history and physical exam was performed. Patient has no focal neurologic deficit. I did discuss treatment options. States that Dilaudid has previously helped her in the past. She has already received Toradol which slightly improved her headache. Patient was given pain and nausea medications. Reevaluated and reports that she is pain-free at this time. She did mention something to the nurse about her being off of her anticoagulation. Patient states that she is in between doctors at this time and has not been on her Coumadin in over a month. I did offer to write this prescription for the patient as she cannot be off of this medication. Patient needs to find a primary care doctor soon as possible and restart her medications. Patient was agreeable to this plan and she was discharged in stable condition Undiagnosed new problem with uncertain prognosis? @ -No Drug Therapy requiring intensive monitoring for toxicity (Heparin, Nitro, Insulin, Cardizem)? @ -No Were any procedures done? @ -No Diagnosis/symptom? @ -Acute migraine cephalgia, medical noncompliance Acute, or Chronic, or Acute on Chronic? @ -Acute Uncomplicated (without systemic symptoms) or Complicated (systemic symptoms)? @ -Complicated Side effects of treatment? @ -No Exacerbation, Progression, or Severe Exacerbation? @ -No Poses a threat to life or bodily function? How? (Chest pain, [place], [place], pneumonia, PE, COPD, DKA, ARF, appy, cholecystitis, CVA, Diverticulitis, Homicidal, Suicidal, threat to staff... and all critical care pts) @ -No - Lab Data Result diagrams: 11/23/23 17:12 11/23/23 18:30 Lab Results 11/23/23 11/23/23 11/23/23 Range/Units 17:12 17:12 18:30 WBC 9.3 (3.8-10.6) k/uL RBC 4.23 (3.80-5.40) m/uL Hgb 13.0 (11.4-16.0) gm/dL Hct 41.7 (34.0-46.0) % MCV 98.6 (80.0-100.0) fL MCH 30.7 (25.0-35.0) pg MCHC 31.1 (31.0-37.0) g/dL RDW 14.3 (11.5-15.5) % Plt Count 211 (150-450) k/uL MPV 8.6 Neutrophils % 66 % Lymphocytes % 23 % Monocytes % 6 % Eosinophils % 2 % Basophils % 1 % Neutrophils # 6.2 (1.3-7.7) k/uL Lymphocytes # 2.2 (1.0-4.8) k/uL Monocytes # 0.6 (0-1.0) k/uL Eosinophils # 0.2 (0-0.7) k/uL Basophils # 0.1 (0-0.2) k/uL Hypochromasia Slight PT 12.0 (10.0-12.5) sec INR 1.1 (<1.2) Sodium 137 (137-145) mmol/L Potassium 4.1 (3.5-5.1) mmol/L Chloride 108 H (98-107) mmol/L Carbon Dioxide 20 L (22-30) mmol/L Anion Gap 9 mmol/L BUN 7 (7-17) mg/dL Creatinine 0.40 L (0.52-1.04) mg/dL Est GFR (CKD-EPI)AfAm >90 (>60 ml/min/1.73 sqM) Est GFR (CKD-EPI)NonAf >90 (>60 ml/min/1.73 sqM) Glucose 58 L (74-99) mg/dL Calcium 8.6 (8.4-10.2) mg/dL Total Bilirubin 1.0 (0.2-1.3) mg/dL AST 30 (14-36) U/L ALT 13 (4-34) U/L Alkaline Phosphatase 115 (38-126) U/L Total Protein 8.2 (6.3-8.2) g/dL Albumin 4.3 (3.5-5.0) g/dL Disposition Clinical Impression: Headache Disposition: HOME SELF-CARE Condition: Stable Instructions (If sedation given, give patient instructions): Acute Headache (ED) Additional Instructions: Find a primary care doctor. You will have to have your INR tested. Return for any new or worsening symptoms Prescriptions: Warfarin [Coumadin] 7.5 mg PO DAILY #30 tab Is patient prescribed a controlled substance at d/c from ED?: No Referrals: None,Stated [Primary Care Provider] - 1-2 days Time of Disposition: 18:53
[2023-11-23 18:12] LABS: INR 1.1 (<1.2)
[2023-11-23] MEDS: WARFARIN 7.5 MG TAB PO STA (18:51)
[2023-11-23 19:05] LABS: ALT 13 U/L (4-34); AST 30 U/L (14-36); African American GFR (CKD) >90 (>60 ml/min/1.73 sqM); Albumin 4.3 g/dL (3.5-5.0); Alkaline Phosphatase 115 U/L (38-126); Anion Gap 9 mmol/L; Blood Urea Nitrogen 7 mg/dL (7-17); Calcium 8.6 mg/dL (8.4-10.2); Carbon Dioxide 20 mmol/L (22-30); Chloride 108 mmol/L (98-107); Glucose 58 mg/dL (74-99); Non-African American GFR(CKD) >90 (>60 ml/min/1.73 sqM); Potassium 4.1 mmol/L (3.5-5.1); Sodium 137 mmol/L (137-145); Total Protein 8.2 g/dL (6.3-8.2)
[2023-11-23 19:32] VITALS: BP 105/68; PULSE 68; RESP 18; TEMP 98.1
== END 2023-11-23 19:02 | disposition home or self-care (01) ==
LOC: EC 16:26
DX: G43.909 Migraine, unspecified, not intractable, without status migrainosus (principal); F17.200 Nicotine dependence, unspecified, uncomplicated; F15.90 Other stimulant use, unspecified, uncomplicated; F12.90 Cannabis use, unspecified, uncomplicated; Z88.0 Allergy status to penicillin; Z88.6 Allergy status to analgesic agent; Z88.5 Allergy status to narcotic agent; Z88.8 Allergy status to other drugs, medicaments and biological substances
CPT/HCPCS: 36415; 80053; 85025; 85610; 99284; 96374; 96375 ×2; 96361; J1200; J2765; J1170

== ENCOUNTER 2023-12-14 12:33 | Emergency (ER) | payer OTHER ==
--- NOTE | 2023-12-14 13:00 | ED ---
Extremity Problem HPI - General Chief complaint: Extremity Problem,Nontraumatic Stated complaint: Hip Pain Time Seen by Provider: 12/14/23 12:43 Source: patient, EMS, RN notes reviewed Mode of arrival: EMS Limitations: no limitations - History of Present Illness Initial comments: This is a 38-year-old female who presents to the emergency department for right hip pain. Pain started 2 days ago. Denies any known injuries. She does have a history of a right total hip arthroplasty, which she refractured 3 months following the initial surgery. [facility]. She is given 50 mcgs of fentanyl EMS on route with some improvement in pain. MD Complaint: extremity pain - Related Data Home Medications Medication Instructions Recorded Confirmed Warfarin [Coumadin] 5 mg PO HS 07/25/19 04/24/23 Unknown Blood Pressure Medication 1 dose PO DIRECTED PRN 04/24/23 04/24/23 Previous Rx's Medication Instructions Recorded Warfarin [Coumadin] 7.5 mg PO DAILY #30 tab 11/23/23 Allergies Allergy/AdvReac Type Severity Reaction Status Date / Time Penicillins Allergy Rash/Hives Verified 04/24/23 18:35 chlordiazepoxide HCl AdvReac SEE COMMENT Verified 04/24/23 18:35 [From Librium] ketorolac [From Toradol] AdvReac ANXIETY Verified 04/24/23 18:35 morphine AdvReac Unknown Verified 04/24/23 18:35 prochlorperazine edisylate AdvReac PANIC Verified 04/24/23 18:35 [From Compazine] ATTACK prochlorperazine maleate AdvReac PANIC Verified 04/24/23 18:35 [From Compazine] ATTACK Review of Systems ROS Statement: Those systems with pertinent positive or pertinent negative responses have been documented in the HPI. ROS Other: All systems not noted in ROS Statement are negative. Past Medical History Past Medical History: Heart Failure, CVA/TIA, Liver Disease, Neurologic Disorder, Osteoarthritis (OA), Pneumonia, Seizure Disorder Additional Past Medical History / Comment(s): Stroke with residual right-sided weakness 2017, TIAs, marfan's syndrome, ArnoldChiari malformation, spontaneous pneumothorax x 21, scoliosis and pectus excavatum secondary to Marfan's, chronic back pain, bilateral leg pain, gastric ulcers, sinus infections, STATED HAS POOR CIRCULATION, viral meningitis, HEP C. 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 spleenectomy 2018, L upper lobectomy d/t pneumothoraxs. Past Anesthesia/Blood Transfusion Reactions: No Reported Reaction Past Psychological History: Anxiety Smoking Status: Current every day smoker Past Alcohol Use History: None Reported, Occasional Past Drug Use History: Marijuana, Methamphetamine, Prescription Drug Abuse - Past Family History Father Additional Family Medical History / Comment(s): Father is with history of AIDS. Mother Family Medical History: Diabetes Mellitus Additional Family Medical History / Comment(s): Mother at age 49 from liver cirrhosis secondary to alcohol abuse. Brother(s) Additional Family Medical History / Comment(s): Patient has one brother with no major medical problems. General Exam Limitations: no limitations General appearance: alert, in no apparent distress Head exam: Present: atraumatic, normocephalic, normal inspection Respiratory exam: Present: normal lung sounds bilaterally. Absent: respiratory distress, wheezes, rales, rhonchi, stridor Cardiovascular Exam: Present: regular rate, normal rhythm, normal heart sounds. Absent: systolic murmur, diastolic murmur, rubs, gallop, clicks Extremities exam: Present: other (Tenderness to palpation over the right greater trochanter. Full range of motion. No deformities. 2+ DP and PT pulses.) Neurological exam: Present: alert, oriented X3, CN II-XII intact Psychiatric exam: Present: normal affect, normal mood Skin exam: Present: warm, dry, intact, normal color. Absent: rash Course Vital Signs 12/14/23 12/14/23 12:42 13:58 Pulse Rate 90 85 Respiratory 18 18 Rate Blood Pressure 148/78 107/73 O2 Sat by Pulse 98 97 Oximetry Medical Decision Making - Medical Decision Making This is a 38-year-old female who presents to the emergency department for right hip pain. Was pt. sent in by a medical professional or institution? @ -No Did you speak to anyone other than the patient for history? @ -No Did you review nursing and triage notes? @ -Yes, and I agree, it is accurate with regards to the patient's symptoms. Were old charts reviewed? @ -No Differential Diagnosis? @ -Differential Musculoskeletal: Muscular strain, contusion, ligament sprain, fracture, arthritis, septic arthritis, bursitis, cellulitis, muscle spasm, nerve compression, DVT, arterial occlusion, herpes zoster, electrolyte abnormality, tumor.... This is not meant to be in all inclusive list EKG interpreted by me (3pts min.)? @ -Not obtained X-rays interpreted by me (1pt min.)? @ -X-ray of the right hip obtained. My interpretation identifies no acute fractures. CT interpreted by me (1pt min.)? @ -Not obtained U/S interpreted by me (1pt. min.)? @ -Not obtained What testing was considered but not performed? (CT, X-rays, U/S, labs)? Why? @ -None What meds were considered but not given? Why? @ -None Did you discuss the management of the patient with other professionals? @ -No Did you reconcile home meds? @ -No Was smoking cessation discussed for >3mins.? @ -No Was critical care preformed (if so, how long)? @ -No Were there social determinants of health that impacted care today? How? (Homelessness, low income, unemployed, alcoholism, drug addiction, transportation, low edu. Level, literacy, decrease access to med. care, senior care, rehab)? @ -No Was there de-escalation of care discussed even if they declined? (Discuss DNR or withdrawal of care, Hospice)? @ -No What co-morbidities impacted this encounter? (DM, HTN, Smoking, COPD, CAD, Cancer, CVA, Hep., AIDS, mental health diagnosis, sleep apnea, morbid obesity)? @ -Osteoarthritis Was patient admitted / discharged? @ -Discharged. X-ray of the right hip obtained revealing no acute process. Pain controlled in the emergency department. Patient was able to ambulate around the room without difficulty. Patient discharged home in stable condition. Advised Tylenol as needed for pain relief. Undiagnosed new problem with uncertain prognosis? @ -None Drug Therapy requiring intensive monitoring for toxicity (Heparin, Nitro, Insulin, Cardizem)? @ -None Were any procedures done? @ -None Diagnosis/symptom? @ -Right hip pain Acute, or Chronic, or Acute on Chronic? @ -Acute Uncomplicated (without systemic symptoms) or Complicated (systemic symptoms)? @ -Uncomplicated Side effects of treatment? @ -None Exacerbation, Progression, or Severe Exacerbation] @ -Not applicable Poses a threat to life or bodily function? @ -No Return precautions reviewed in depth, the patient is instructed to return to the emergency department with any new, worsening, or concerning symptoms. Patient verbalized understanding. This case was discussed in detail with the attending ED physician, Dr. Mercado. Presentation, findings, and treatment plan discussed in detail as well. - Radiology Data Radiology results: report reviewed, image reviewed Disposition Clinical Impression: Right hip pain Disposition: HOME SELF-CARE Instructions (If sedation given, give patient instructions): Hip Pain (ED) Additional Instructions: Return to the emergency department with any new, worsening, or concerning symptoms. Follow up with your primary care provider in 1-2 days. Is patient prescribed a controlled substance at d/c from ED?: No Referrals: None,Stated [Primary Care Provider] - 1-2 days Time of Disposition: 13:49
[2023-12-14] MEDS: HYDROmorphone 1 MG/ML 1 ML SYRINGE IVP STA (13:10)
--- NOTE | 2023-12-14 13:14 | XR ---
EXAMINATION TYPE: XR Hip Complete RT DATE OF EXAM: 12/14/2023 CLINICAL HISTORY: pain TECHNIQUE: AP and frogleg views of the right hip are obtained. COMPARISON: 03/21/2023 FINDINGS: There is no acute fracture/dislocation evident. Total right hip arthroplasty is well seate d and in place. The overlying soft tissue appears unremarkable. IMPRESSION: 1. There is no acute fracture or dislocation. ICD 10 NO FRACTURE, INITIAL EVALUATION
[2023-12-14 13:39] VITALS: RESP 18
[2023-12-14] MEDS: CYCLOBENZAPRINE 10MG STARTER 3 TAB BTL PO STA (13:57)
[2023-12-14 14:21] VITALS: BP 107/73; PULSE 85
== END 2023-12-14 14:07 | disposition home or self-care (01) ==
LOC: EC 12:33
DX: M25.551 Pain in right hip (principal); F17.200 Nicotine dependence, unspecified, uncomplicated; F12.90 Cannabis use, unspecified, uncomplicated; F15.90 Other stimulant use, unspecified, uncomplicated; Z88.0 Allergy status to penicillin; Z88.5 Allergy status to narcotic agent; Z88.6 Allergy status to analgesic agent; Z88.8 Allergy status to other drugs, medicaments and biological substances
CPT/HCPCS: 73502; 99284; 96374; J1170

== ENCOUNTER 2024-01-30 14:28 | Emergency (ER) | payer OTHER ==
--- NOTE | 2024-01-30 14:40 | ED ---
General Adult HPI - General Chief complaint: Headache Stated complaint: headache Time Seen by Provider: 01/30/24 14:30 Source: patient, EMS, RN notes reviewed Mode of arrival: EMS Limitations: no limitations - History of Present Illness Initial comments: Patient is a 38-year-old female presenting to the emergency department with concern for headache. Patient has chronic headaches, worse the past few months. Headache is posterior. No trauma. No weakness or confusion. No visual change. No fevers. Headache is similar to previous headaches. No sudden onset. Patient has had previous imaging. Patient states the only nonnarcotic medication she can take for headaches is Toradol and she did receive that by EMS in route. - Related Data Home Medications Medication Instructions Recorded Confirmed Warfarin [Coumadin] 5 mg PO HS 07/25/19 04/24/23 Unknown Blood Pressure Medication 1 dose PO DIRECTED PRN 04/24/23 04/24/23 Previous Rx's Medication Instructions Recorded Warfarin [Coumadin] 7.5 mg PO DAILY #30 tab 11/23/23 Allergies Allergy/AdvReac Type Severity Reaction Status Date / Time Penicillins Allergy Rash/Hives Verified 01/30/24 14:33 chlordiazepoxide HCl AdvReac SEE COMMENT Verified 01/30/24 14:33 [From Librium] ketorolac [From Toradol] AdvReac ANXIETY Verified 01/30/24 14:33 morphine AdvReac Unknown Verified 01/30/24 14:33 prochlorperazine edisylate AdvReac PANIC Verified 01/30/24 14:33 [From Compazine] ATTACK prochlorperazine maleate AdvReac PANIC Verified 01/30/24 14:33 [From Compazine] ATTACK Review of Systems ROS Statement: Those systems with pertinent positive or pertinent negative responses have been documented in the HPI. ROS Other: All systems not noted in ROS Statement are negative. Constitutional: Denies: fever Eyes: Denies: eye pain ENT: Denies: ear pain Respiratory: Denies: cough Cardiovascular: Denies: chest pain Endocrine: Denies: fatigue Gastrointestinal: Denies: abdominal pain Musculoskeletal: Denies: back pain Skin: Denies: rash Neurological: Reports: as per HPI, headache. Denies: weakness, confusion Past Medical History Past Medical History: Heart Failure, CVA/TIA, Liver Disease, Neurologic Disorder, Osteoarthritis (OA), Pneumonia, Seizure Disorder Additional Past Medical History / Comment(s): Stroke with residual right-sided weakness 2017, TIAs, marfan's syndrome, ArnoldChiari malformation, spontaneous pneumothorax x 21, scoliosis and pectus excavatum secondary to Marfan's, chronic back pain, bilateral leg pain, gastric ulcers, sinus infections, STATED HAS POOR CIRCULATION, viral meningitis, HEP C. 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 spleenectomy 2018, L upper lobectomy d/t pneumothoraxs. Past Anesthesia/Blood Transfusion Reactions: No Reported Reaction Past Psychological History: Anxiety Smoking Status: Current every day smoker Past Alcohol Use History: None Reported, Occasional Past Drug Use History: Marijuana, Methamphetamine, Prescription Drug Abuse - Past Family History Father Additional Family Medical History / Comment(s): Father is with history of AIDS. Mother Family Medical History: Diabetes Mellitus Additional Family Medical History / Comment(s): Mother at age 49 from liver cirrhosis secondary to alcohol abuse. Brother(s) Additional Family Medical History / Comment(s): Patient has one brother with no major medical problems. General Exam Limitations: no limitations General appearance: alert, in no apparent distress Head exam: Present: atraumatic Eye exam: Present: normal appearance, PERRL, EOMI ENT exam: Present: normal oropharynx Neck exam: Present: normal inspection. Absent: tenderness Respiratory exam: Present: normal lung sounds bilaterally Cardiovascular Exam: Present: regular rate, normal rhythm GI/Abdominal exam: Present: soft. Absent: tenderness Extremities exam: Present: normal inspection Neurological exam: Present: alert, oriented X3, CN II-XII intact. Absent: motor sensory deficit Expanded Neurological exam: Present: protecting the airway Speech: Present: fluid speech Cranial nerves: EOM's Intact: Normal Motor strength exam: RUE: 5, LUE: 5, RLE: 5, LLE: 5 Eye Response: (4) open spontaneously Motor Response: (6) obeys commands Verbal Response: (5) oriented Psychiatric exam: Present: normal affect, normal mood Skin exam: Present: normal color Course Vital Signs 01/30/24 14:29 Temperature 97.7 F Pulse Rate 80 Respiratory 16 Rate Blood Pressure 170/89 O2 Sat by Pulse 96 Oximetry Medical Decision Making - Medical Decision Making Was pt. sent in by a medical professional or institution ([facility], [employer], urgent care, hospital, or assisted...) When possible be specific @ -No Did you speak to anyone other than the patient for history (EMS, parent, family, police, friend...)? What history was obtained from this source @ -EMS provides history of medications given Did you review nursing and triage notes (agree or disagree)? Why? @ -I reviewed and agree with nursing and triage notes Were old charts reviewed (outside hosp., previous admission, EMS record, old EKG, old radiological studies, urgent care reports/EKG's, assisted records)? Report findings @ -Previous visits for headaches Differential Diagnosis (chest pain, altered mental status, abdominal pain women, abdominal pain men, vaginal bleeding, weakness, fever, dyspnea, syncope, headache, dizziness, GI bleed, back pain, seizure, CVA, palpatations, mental health, musculoskeletal)? @ -Not applicable EKG interpreted by me (3pts min.). @ -As above X-rays interpreted by me (1pt min.). @ -None done CT interpreted by me (1pt min.). @ -None done U/S interpreted by me (1pt. min.). @ -None done What testing was considered but not performed or refused? (CT, X-rays, U/S, labs)? Why? @ -Considered imaging however patient's symptoms are chronic and has had previous image What meds were considered but not given or refused? Why? @ -None Did you discuss the management of the patient with other professionals (professionals i.e. [facility], [employer], lab, RT, psych nurse, long term care social worker, cephalometric technician, teacher, forest fire control officer, pillowcase cutter)? Give summary @ -No Was smoking cessation discussed for >3mins.? @ -No Was critical care preformed (if so, how long)? @ -No Were there social determinants of health that impacted care today? How? (Homelessness, low income, unemployed, alcoholism, drug addiction, transportation, low edu. Level, literacy, decrease access to med. care, correction, rehab)? @ -No Was there de-escalation of care discussed even if they declined (Discuss DNR or withdrawal of care, Hospice)? DNR status @ -No What co-morbidities impacted this encounter? (DM, HTN, Smoking, COPD, CAD, Cancer, CVA, ARF, Chemo, Hep., AIDS, mental health diagnosis, sleep apnea, morbid obesity)? @ -None Was patient admitted / discharged? Hospital course, mention meds given and route, prescriptions, significant lab abnormalities, going to OR and other pertinent info. @ -Patient presents with chronic pain. Patient does have history of substance abuse and drug-seeking behavior. Patient was given pain medication in route. Patient will be discharged recommend follow-up with primary care physician. Undiagnosed new problem with uncertain prognosis? @ -No Drug Therapy requiring intensive monitoring for toxicity (Heparin, Nitro, Insulin, Cardizem)? @ -No Were any procedures done? @ -No Diagnosis/symptom? @ -Cephalgia Acute, or Chronic, or Acute on Chronic? @ -Acute on chronic Uncomplicated (without systemic symptoms) or Complicated (systemic symptoms)? @ -Default Side effects of treatment? @ -No Exacerbation, Progression, or Severe Exacerbation? @ -No Poses a threat to life or bodily function? How? (Chest pain, [place], CA, pneumonia, PE, COPD, DKA, ARF, appy, cholecystitis, CVA, Diverticulitis, Homicidal, Suicidal, threat to staff... and all critical care pts) @ -No Disposition Clinical Impression: Headache Disposition: HOME SELF-CARE Condition: Stable Instructions (If sedation given, give patient instructions): Acute Headache (ED) Additional Instructions: Please do follow-up with primary care physician in the next day or 2 for recheck. Return for weakness, fever, visual change, confusion, worsening symptoms or other concerns Is patient prescribed a controlled substance at d/c from ED?: No Referrals: Ileana Alcantara MD [STAFF PHYSICIAN] - 1-2 days Time of Disposition: 14:40
[2024-01-30 15:40] VITALS: BP 170/89; PULSE 80; RESP 16; TEMP 97.7
== END 2024-01-30 14:55 | disposition home or self-care (01) ==
LOC: EC 14:28
DX: R51.9 Headache, unspecified (principal); F17.200 Nicotine dependence, unspecified, uncomplicated; Z86.73 Personal history of transient ischemic attack (TIA), and cerebral infarction without residual deficits; Z88.0 Allergy status to penicillin; Z88.5 Allergy status to narcotic agent; Z88.8 Allergy status to other drugs, medicaments and biological substances
CPT/HCPCS: 99283

== ENCOUNTER 2024-02-05 08:45 | Emergency (ER) | payer OTHER ==
[2024-02-05 13:22] VITALS: BP 142/70; PULSE 82; RESP 18; TEMP 98.1
--- NOTE | 2024-02-05 13:57 | ED ---
Chest Pain HPI - General Chief Complaint: Chest Pain Stated Complaint: Chest Pain Time Seen by Provider: 02/05/24 08:48 Source: patient, EMS, RN notes reviewed Mode of arrival: EMS Limitations: physical limitation - History of Present Illness Initial Comments: 38-year-old female presents the emergency department chief complaint of chest pain. Patient states that this is her typical chest wall pain. Patient is well-known to the emergency department with a history of Marfan syndrome. Patient denies any trauma denies any shortness of breath no other complaints. - Related Data Home Medications Medication Instructions Recorded Confirmed Warfarin [Coumadin] 5 mg PO HS 07/25/19 04/24/23 Unknown Blood Pressure Medication 1 dose PO DIRECTED PRN 04/24/23 04/24/23 Previous Rx's Medication Instructions Recorded Warfarin [Coumadin] 7.5 mg PO DAILY #30 tab 11/23/23 Allergies Allergy/AdvReac Type Severity Reaction Status Date / Time Penicillins Allergy Rash/Hives Verified 01/30/24 14:33 chlordiazepoxide HCl AdvReac SEE COMMENT Verified 01/30/24 14:33 [From Librium] ketorolac [From Toradol] AdvReac ANXIETY Verified 01/30/24 14:33 morphine AdvReac Unknown Verified 01/30/24 14:33 prochlorperazine edisylate AdvReac PANIC Verified 01/30/24 14:33 [From Compazine] ATTACK prochlorperazine maleate AdvReac PANIC Verified 01/30/24 14:33 [From Compazine] ATTACK Review of Systems ROS Statement: Those systems with pertinent positive or pertinent negative responses have been documented in the HPI. ROS Other: All systems not noted in ROS Statement are negative. Past Medical History Past Medical History: Heart Failure, CVA/TIA, Liver Disease, Neurologic Disorder, Osteoarthritis (OA), Pneumonia, Seizure Disorder Additional Past Medical History / Comment(s): Stroke with residual right-sided weakness 2017, TIAs, marfan's syndrome, ArnoldChiari malformation, spontaneous pneumothorax x 21, scoliosis and pectus excavatum secondary to Marfan's, chronic back pain, bilateral leg pain, gastric ulcers, sinus infections, STATED HAS POOR CIRCULATION, viral meningitis, HEP C. 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 spleenectomy 2018, L upper lobectomy d/t pneumothoraxs. Past Anesthesia/Blood Transfusion Reactions: No Reported Reaction Past Psychological History: Anxiety Smoking Status: Current every day smoker Past Alcohol Use History: None Reported, Occasional Past Drug Use History: Marijuana, Methamphetamine, Prescription Drug Abuse - Past Family History Father Additional Family Medical History / Comment(s): Father is with history of AIDS. Mother Family Medical History: Diabetes Mellitus Additional Family Medical History / Comment(s): Mother at age 49 from liver cirrhosis secondary to alcohol abuse. Brother(s) Additional Family Medical History / Comment(s): Patient has one brother with no major medical problems. General Exam Limitations: no limitations General appearance: alert, in no apparent distress Head exam: Present: atraumatic, normocephalic, normal inspection Respiratory exam: Present: wheezes. Absent: normal lung sounds bilaterally, respiratory distress, rales, rhonchi, stridor Cardiovascular Exam: Present: regular rate, normal rhythm, systolic murmur. Absent: normal heart sounds, diastolic murmur, rubs, gallop, clicks Extremities exam: Absent: normal inspection, full ROM Course Vital Signs 02/05/24 08:46 Temperature 98.1 F Pulse Rate 82 Respiratory 18 Rate Blood Pressure 142/70 O2 Sat by Pulse 98 Oximetry Chest Pain MDM - MDM Was pt. sent in by a medical professional or institution (, PA, [employer], urgent care, hospital, or [facility]...) When possible be specific @ -No Did you speak to anyone other than the patient for history (EMS, parent, family, police, friend...)? What history was obtained from this source @ -No Did you review nursing and triage notes (agree or disagree)? Why? @ -I reviewed and agree with nursing and triage notes Were old charts reviewed (outside hosp., previous admission, EMS record, old EKG, old radiological studies, urgent care reports/EKG's, [facility] records)? Report findings @ -No old charts were reviewed Differential Diagnosis (chest pain, altered mental status, abdominal pain women, abdominal pain men, vaginal bleeding, weakness, fever, dyspnea, syncope, headache, dizziness, GI bleed, back pain, seizure, CVA, palpatations, mental health, musculoskeletal)? @ -Differential Chest Pain: Stable Angina, Unstable Angina, STEMI, NSTEMI Aortic Dissection, Pneumothorax, Musculoskeletal, Esophageal Spasm GERD, Cholecystitis, Pancreatitis, Zoster, this is not meant to be an all-inclusive list. EKG interpreted by me (3pts min.). @ -Patient refused X-rays interpreted by me (1pt min.). @ -None done CT interpreted by me (1pt min.). @ -None done U/S interpreted by me (1pt. min.). @ -None done What testing was considered but not performed or refused? (CT, X-rays, U/S, labs)? Why? @ -None What meds were considered but not given or refused? Why? @ -None Did you discuss the management of the patient with other professionals (professionals i.e. , PA, [employer], lab, RT, psych nurse, social media coordinator, education program associate, teacher, railway patrol officer, piano case and bench assembler)? Give summary @ -No Was smoking cessation discussed for >3mins.? @ -No Was critical care preformed (if so, how long)? @ -No Were there social determinants of health that impacted care today? How? (Homelessness, low income, unemployed, alcoholism, drug addiction, transportation, low edu. Level, literacy, decrease access to med. care, senior living, rehab)? @ -No Was there de-escalation of care discussed even if they declined (Discuss DNR or withdrawal of care, Hospice)? DNR status @ -No What co-morbidities impacted this encounter? (DM, HTN, Smoking, COPD, CAD, Cancer, CVA, ARF, Chemo, Hep., AIDS, mental health diagnosis, sleep apnea, morbid obesity)? @ -None Was patient admitted / discharged? Hospital course, mention meds given and route, prescriptions, significant lab abnormalities, going to OR and other pertinent info. @ -[Patient left AGAINST MEDICAL ADVICE refusing all testing. Undiagnosed new problem with uncertain prognosis? @ -No Drug Therapy requiring intensive monitoring for toxicity (Heparin, Nitro, Insul in, Cardizem)? @ -No Were any procedures done? @ -No Diagnosis/symptom? @ -Chest pain Acute, or Chronic, or Acute on Chronic? @ -Chronic Uncomplicated (without systemic symptoms) or Complicated (systemic symptoms)? @ -Uncomplicated Side effects of treatment? @ -No Exacerbation, Progression, or Severe Exacerbation? @ -No Poses a threat to life or bodily function? How? (Chest pain, [place], [place], pneumonia, PE, COPD, DKA, ARF, appy, cholecystitis, CVA, Diverticulitis, Homicidal, Suicidal, threat to staff... and all critical care pts) @ -No Disposition Clinical Impression: Atypical chest pain Disposition: LEFT AGAINST MEDICAL ADVICE Referrals: None,Stated [Primary Care Provider] - 1-2 days
== END 2024-02-05 09:15 | disposition left against medical advice (07) ==
LOC: EC 08:45
DX: R07.89 Other chest pain (principal); F17.200 Nicotine dependence, unspecified, uncomplicated; F12.90 Cannabis use, unspecified, uncomplicated; F15.90 Other stimulant use, unspecified, uncomplicated; Z88.0 Allergy status to penicillin; Z88.1 Allergy status to other antibiotic agents; Z88.8 Allergy status to other drugs, medicaments and biological substances; Z53.29 Procedure and treatment not carried out because of patient's decision for other reasons
CPT/HCPCS: 99284

== ENCOUNTER 2024-02-06 10:38 | Emergency (ER) | payer OTHER ==
[2024-02-06 10:44] VITALS: BP 162/83; PULSE 83; RESP 20; TEMP 98.2
--- NOTE | 2024-02-06 11:17 | ED ---
Chest Pain HPI - General Chief Complaint: Chest Pain Stated Complaint: Chest pain Time Seen by Provider: 02/06/24 10:46 Source: patient, RN notes reviewed Mode of arrival: EMS Limitations: no limitations - History of Present Illness Initial Comments: 38-year-old female presents emergency room via EMS chief complaint of chest wall pain. This is a chronic thing and nature. She was seen here yesterday for similar complaints and left AGAINST MEDICAL ADVICE. Patient states that she has no injury no new symptoms he has no other complaints. Patient denies shortness of breath she states she is taking her Coumadin for her valve - Related Data Home Medications Medication Instructions Recorded Confirmed Warfarin [Coumadin] 5 mg PO HS 07/25/19 04/24/23 Unknown Blood Pressure Medication 1 dose PO DIRECTED PRN 04/24/23 04/24/23 Previous Rx's Medication Instructions Recorded Warfarin [Coumadin] 7.5 mg PO DAILY #30 tab 11/23/23 Allergies Allergy/AdvReac Type Severity Reaction Status Date / Time Penicillins Allergy Rash/Hives Verified 02/06/24 10:44 chlordiazepoxide HCl AdvReac SEE COMMENT Verified 02/06/24 10:44 [From Librium] ketorolac [From Toradol] AdvReac ANXIETY Verified 02/06/24 10:44 morphine AdvReac Unknown Verified 02/06/24 10:44 prochlorperazine edisylate AdvReac PANIC Verified 02/06/24 10:44 [From Compazine] ATTACK prochlorperazine maleate AdvReac PANIC Verified 02/06/24 10:44 [From Compazine] ATTACK Review of Systems ROS Statement: Those systems with pertinent positive or pertinent negative responses have been documented in the HPI. ROS Other: All systems not noted in ROS Statement are negative. EKG Findings - EKG Comments: EKG Findings:: EKG performed at 11: 04 sinus rhythm rate of 80 W[place] 143 QRS 113 QT/QTc 387/423 - EKG Results: EKG: interpreted by RAMIREZ Past Medical History Past Medical History: Heart Failure, CVA/TIA, Liver Disease, Neurologic Disorder, Osteoarthritis (OA), Pneumonia, Seizure Disorder Additional Past Medical History / Comment(s): Stroke with residual right-sided weakness 2017, TIAs, marfan's syndrome, ArnoldChiari malformation, spontaneous pneumothorax x 21, scoliosis and pectus excavatum secondary to Marfan's, chronic back pain, bilateral leg pain, gastric ulcers, sinus infections, STATED HAS POOR CIRCULATION, viral meningitis, HEP C. 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 spleenectomy 2018, L upper lobectomy d/t pneumothoraxs. Past Anesthesia/Blood Transfusion Reactions: No Reported Reaction Past Psychological History: Anxiety Smoking Status: Current every day smoker Past Alcohol Use History: None Reported, Occasional Past Drug Use History: Marijuana, Methamphetamine, Prescription Drug Abuse - Past Family History Father Additional Family Medical History / Comment(s): Father is with history of AIDS. Mother Family Medical History: Diabetes Mellitus Additional Family Medical History / Comment(s): Mother at age 49 from liver cirrhosis secondary to alcohol abuse. Brother(s) Additional Family Medical History / Comment(s): Patient has one brother with no major medical problems. General Exam Limitations: no limitations General appearance: alert, in no apparent distress Head exam: Present: atraumatic, normocephalic, normal inspection Neck exam: Present: normal inspection. Absent: tenderness, meningismus, lymphadenopathy Respiratory exam: Present: normal lung sounds bilaterally, chest wall tenderness. Absent: respiratory distress, wheezes, rales, rhonchi, stridor Cardiovascular Exam: Present: regular rate, normal rhythm, normal heart sounds. Absent: systolic murmur, diastolic murmur, rubs, gallop, clicks Extremities exam: Absent: normal inspection (Chronic deformity) Course Vital Signs 02/06/24 10:41 Temperature 98.2 F Pulse Rate 83 Respiratory 20 Rate Blood Pressure 162/83 O2 Sat by Pulse 98 Oximetry Chest Pain MDM - MDM Was pt. sent in by a medical professional or institution (, PA, CLINICAL NURSE EDUCATOR, urgent care, hospital, or residential...) When possible be specific @ -No Did you speak to anyone other than the patient for history (EMS, parent, family, police, friend...)? What history was obtained from this source @ -No Did you review nursing and triage notes (agree or disagree)? Why? @ -I reviewed and agree with nursing and triage notes Were old charts reviewed (outside hosp., previous admission, EMS record, old EKG, old radiological studies, urgent care reports/EKG's, residential records)? Report findings @ -[Reviewed her EKG Differential Diagnosis (chest pain, altered mental status, abdominal pain women, abdominal pain men, vaginal bleeding, weakness, fever, dyspnea, syncope, headache, dizziness, GI bleed, back pain, seizure, CVA, palpatations, mental health, musculoskeletal)? @ -Differential Chest Pain: Stable Angina, Unstable Angina, STEMI, NSTEMI Aortic Dissection, Pneumothorax, Musculoskeletal, Esophageal Spasm GERD, Cholecystitis, Pancreatitis, Zoster, this is not meant to be an all-inclusive list. EKG interpreted by me (3pts min.). @ -As above X-rays interpreted by me (1pt min.). @ -None done CT interpreted by me (1pt min.). @ -None done U/S interpreted by me (1pt. min.). @ -None done What testing was considered but not performed or refused? (CT, X-rays, U/S, labs)? Why? @ -None What meds were considered but not given or refused? Why? @ -None Did you discuss the management of the patient with other professionals (professionals i.e. , PA, CLINICAL NURSE EDUCATOR, lab, RT, psych nurse, social media analyst, preparation room manager, teacher, transit authority police officer, case management coordinator)? Give summary @ -No Was smoking cessation discussed for >3mins.? @ -No Was critical care preformed (if so, how long)? @ -No Were there social determinants of health that impacted care today? How? (Homelessness, low income, unemployed, alcoholism, drug addiction, transportation, low edu. Level, literacy, decrease access to med. care, long-term, rehab)? @ -No Was there de-escalation of care discussed even if they declined (Discuss DNR or withdrawal of care, Hospice)? DNR status @ -No What co-morbidities impacted this encounter? (DM, HTN, Smoking, COPD, CAD, Cancer, CVA, ARF, Chemo, Hep., AIDS, mental health diagnosis, sleep apnea, morbid obesity)? @ -Marfan's Was patient admitted / discharged? Hospital course, mention meds given and route, prescriptions, significant lab abnormalities, going to OR and other pertinent info. @ -Patient left against medical advice Undiagnosed new problem with uncertain prognosis? @ -No Drug Therapy requiring intensive monitoring for toxicity (Heparin, Nitro, Insulin, Cardizem)? @ -No Were any procedures done? @ -No Diagnosis/symptom? @ -Chronic pain, chest pain Acute, or Chronic, or Acute on Chronic? @ -Chronic Uncomplicated (without systemic symptoms) or Complicated (systemic symptoms)? @ -Uncomplicated Side effects of treatment? @ -No Exacerbation, Progression, or Severe Exacerbation? @ -No Poses a threat to life or bodily function? How? (Chest pain, [place], [place], pneumonia, PE, COPD, DKA, ARF, appy, cholecystitis, CVA, Diverticulitis, Homicidal, Suicidal, threat to staff... and all critical care pts) @ -No Disposition Clinical Impression: Chronic pain, Chest wall pain Disposition: LEFT AGAINST MEDICAL ADVICE Referrals: None,Stated [Primary Care Provider] - 1-2 days Time of Disposition: 11:17
== END 2024-02-06 11:44 | disposition left against medical advice (07) ==
LOC: EC 10:38
DX: G89.29 Other chronic pain (principal); R07.89 Other chest pain; F12.90 Cannabis use, unspecified, uncomplicated; F15.90 Other stimulant use, unspecified, uncomplicated; F17.200 Nicotine dependence, unspecified, uncomplicated; Z88.0 Allergy status to penicillin; Z88.5 Allergy status to narcotic agent; Z88.8 Allergy status to other drugs, medicaments and biological substances; Z53.29 Procedure and treatment not carried out because of patient's decision for other reasons
CPT/HCPCS: 93005; 99285

== ENCOUNTER 2024-02-06 16:58 | Emergency (ER) | payer OTHER ==
[2024-02-06 17:19] VITALS: TEMP 97.9
--- NOTE | 2024-02-06 22:12 | ED ---
Chest Pain HPI - General Chief Complaint: Chest Pain Stated Complaint: Chest Pain Time Seen by Provider: 02/06/24 22:11 Source: patient Mode of arrival: ambulatory Limitations: no limitations - History of Present Illness Initial Comments: Arlin is a 38-year-old female with extensive past medical history who was seen earlier in the day for chest wall pain. Patient states that her pain has resolved and she has no complaints now but she left earlier did not get a ride home and check back in so that we could call a cab for her. - Related Data Home Medications Medication Instructions Recorded Confirmed Warfarin [Coumadin] 5 mg PO HS 07/25/19 04/24/23 Unknown Blood Pressure Medication 1 dose PO DIRECTED PRN 04/24/23 04/24/23 Previous Rx's Medication Instructions Recorded Warfarin [Coumadin] 7.5 mg PO DAILY #30 tab 11/23/23 Allergies Allergy/AdvReac Type Severity Reaction Status Date / Time Penicillins Allergy Rash/Hives Verified 02/06/24 17:19 chlordiazepoxide HCl AdvReac SEE COMMENT Verified 02/06/24 17:19 [From Librium] ketorolac [From Toradol] AdvReac ANXIETY Verified 02/06/24 17:19 morphine AdvReac Unknown Verified 02/06/24 17:19 prochlorperazine edisylate AdvReac PANIC Verified 02/06/24 17:19 [From Compazine] ATTACK prochlorperazine maleate AdvReac PANIC Verified 02/06/24 17:19 [From Compazine] ATTACK Review of Systems ROS Statement: Those systems with pertinent positive or pertinent negative responses have been documented in the HPI. ROS Other: All systems not noted in ROS Statement are negative. Past Medical History Past Medical History: Heart Failure, CVA/TIA, Liver Disease, Neurologic Disorder, Osteoarthritis (OA), Pneumonia, Seizure Disorder Additional Past Medical History / Comment(s): Stroke with residual right-sided weakness 2017, TIAs, marfan's syndrome, ArnoldChiari malformation, spontaneous pneumothorax x 21, scoliosis and pectus excavatum secondary to Marfan's, chronic back pain, bilateral leg pain, gastric ulcers, sinus infections, STATED HAS POOR CIRCULATION, viral meningitis, HEP C. 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 spleenectomy 2018, L upper lobectomy d/t pneumothoraxs. Past Anesthesia/Blood Transfusion Reactions: No Reported Reaction Past Psychological History: Anxiety Smoking Status: Current every day smoker Past Alcohol Use History: None Reported, Occasional Past Drug Use History: Marijuana, Methamphetamine, Prescription Drug Abuse - Past Family History Father Additional Family Medical History / Comment(s): Father is with history of AIDS. Mother Family Medical History: Diabetes Mellitus Additional Family Medical History / Comment(s): Mother at age 49 from liver cirrhosis secondary to alcohol abuse. Brother(s) Additional Family Medical History / Comment(s): Patient has one brother with no major medical problems. General Exam - General Exam Comments Initial Comments: Physical Exam GENERAL: Chronically ill appearing, underweight HENT: Atraumatic. EYES: PERRL, EOMI PULMONARY: Unlabored respirations CARDIOVASCULAR: Warm and well perfused extremities Sternotomy scar ABDOMEN: Scaphoid SKIN: Pale : Deferred NEUROLOGIC: Alert and oriented MUSCULOSKELETAL: Moving all extremities with no apparent injury Scoliosis and kyphosis noted PSYCHIATRIC: No SI/HI Limitations: no limitations Course Vital Signs 02/06/24 17:16 Temperature 97.9 F Pulse Rate 99 Respiratory 18 Rate Blood Pressure 170/89 O2 Sat by Pulse 96 Oximetry Chest Pain MDM - MDM Was pt. sent in by a medical professional or institution (, PA, TUMBLER MACHINE OPERATOR HELPER, urgent care, hospital, or alf...) When possible be specific @ -No Did you speak to anyone other than the patient for history (EMS, parent, family, police, friend...)? What history was obtained from this source @ -No Did you review nursing and triage notes (agree or disagree)? Why? @ -I reviewed and agree with nursing and triage notes Were old charts reviewed (outside hosp., previous admission, EMS record, old EKG, old radiological studies, urgent care reports/EKG's, alf records)? Report findings @ -No old charts were reviewed Differential Diagnosis (chest pain, altered mental status, abdominal pain women, abdominal pain men, vaginal bleeding, weakness, fever, dyspnea, syncope, headache, dizziness, GI bleed, back pain, seizure, CVA, palpatations, mental health)? @ -Not applicable EKG interpreted by me (3pts min.). @ -As above X-rays interpreted by me (1pt min.). @ -None done CT interpreted by me (1pt min.). @ -None done U/S interpreted by me (1pt. min.). @ -None done What testing was considered but not performed or refused? (CT, X-rays, U/S, labs)? Why? @ -None What meds were considered but not given or refused? Why? @ -None Did you discuss the management of the patient with other professionals (professionals i.e. , PA, TUMBLER MACHINE OPERATOR HELPER, lab, RT, psych nurse, social services coordinator, cheese supervisor, t eacher, global chief creative officer, top case assembler)? Give summary @ -No Was smoking cessation discussed for >3mins.? @ -No Was critical care preformed (if so, how long)? @ -No Were there social determinants of health that impacted care today? How? (Homelessness, low income, unemployed, alcoholism, drug addiction, transportation, low edu. Level, literacy, decrease access to med. care, [facility], rehab)? @ -No Was there de-escalation of care discussed even if they declined (Discuss DNR or withdrawal of care, Hospice)? DNR status @ -No What co-morbidities impacted this encounter? (DM, HTN, Smoking, COPD, CAD, Cancer, CVA, ARF, Chemo, Hep., AIDS, mental health diagnosis, sleep apnea, morbid obesity)? @ -None Was patient admitted / discharged? Hospital course, mention meds given and route, prescriptions, significant lab abnormalities, going to OR and other pertinent info. @ -Discharge PAtient was seen, has no acute complaints. Will be discharged home. Undiagnosed new problem with uncertain prognosis? @ -No Drug Therapy requiring intensive monitoring for toxicity (Heparin, Nitro, Insulin, Cardizem)? @ -No Were any procedures done? @ -No Diagnosis/symptom? @ -Default Acute, or Chronic, or Acute on Chronic? @ -Default Uncomplicated (without systemic symptoms) or Complicated (systemic symptoms)? @ -Default Side effects of treatment? @ -No Exacerbation, Progression, or Severe Exacerbation? @ -No Poses a threat to life or bodily function? How? (Chest pain, [place], [place], pneumonia, PE, COPD, DKA, ARF, appy, cholecystitis, CVA, Diverticulitis, Homicidal, Suicidal, threat to staff... and all critical care pts) @ -No Disposition Clinical Impression: Chest wall pain, Transportation unavailable Disposition: HOME SELF-CARE Condition: Stable Is patient prescribed a controlled substance at d/c from ED?: No Referrals: None,Stated [Primary Care Provider] - 1-2 days
[2024-02-06 22:54] VITALS: BP 151/89; PULSE 87
[2024-02-06 23:10] VITALS: RESP 18
== END 2024-02-06 23:10 | disposition home or self-care (01) ==
LOC: EC 16:58
DX: R07.89 Other chest pain (principal); Z59.82 Transportation insecurity; F17.200 Nicotine dependence, unspecified, uncomplicated; Z88.0 Allergy status to penicillin; Z88.5 Allergy status to narcotic agent; Z88.8 Allergy status to other drugs, medicaments and biological substances; Z95.1 Presence of aortocoronary bypass graft; Z95.2 Presence of prosthetic heart valve; Z86.73 Personal history of transient ischemic attack (TIA), and cerebral infarction without residual deficits
CPT/HCPCS: 99284

== ENCOUNTER 2024-03-05 12:41 | Emergency (ER) | payer OTHER ==
--- NOTE | 2024-03-05 12:49 | ED ---
General Adult HPI - General Stated complaint: Chest pain Time Seen by Provider: 03/05/24 12:44 Source: patient, EMS, RN notes reviewed, old records reviewed Mode of arrival: EMS Limitations: no limitations - History of Present Illness Initial comments: 38-year-old female presents emergency department via EMS with chief complaint of chronic pain and needing medication refill. Patient states that she is out of her Coumadin and her last dose was yesterday. Patient denies any new symptoms patient states she does not want any testing refusing all testing. Patient states that she just needs her prescription refill. She has chronic chest wall pain. - Related Data Home Medications Medication Instructions Recorded Confirmed Warfarin [Coumadin] 5 mg PO HS 07/25/19 04/24/23 Unknown Blood Pressure Medication 1 dose PO DIRECTED PRN 04/24/23 04/24/23 Previous Rx's Medication Instructions Recorded Warfarin [Coumadin] 7.5 mg PO DAILY #30 tab 03/05/24 Allergies Allergy/AdvReac Type Severity Reaction Status Date / Time Penicillins Allergy Rash/Hives Verified 02/06/24 17:19 chlordiazepoxide HCl AdvReac SEE COMMENT Verified 02/06/24 17:19 [From Librium] ketorolac [From Toradol] AdvReac ANXIETY Verified 02/06/24 17:19 morphine AdvReac Unknown Verified 02/06/24 17:19 prochlorperazine edisylate AdvReac PANIC Verified 02/06/24 17:19 [From Compazine] ATTACK prochlorperazine maleate AdvReac PANIC Verified 02/06/24 17:19 [From Compazine] ATTACK Review of Systems ROS Statement: Those systems with pertinent positive or pertinent negative responses have been documented in the HPI. ROS Other: All systems not noted in ROS Statement are negative. Past Medical History Past Medical History: Heart Failure, CVA/TIA, Liver Disease, Neurologic Disorder, Osteoarthritis (OA), Pneumonia, Seizure Disorder Additional Past Medical History / Comment(s): Stroke with residual right-sided weakness 2017, TIAs, marfan's syndrome, ArnoldChiari malformation, spontaneous pneumothorax x 21, scoliosis and pectus excavatum secondary to Marfan's, chronic back pain, bilateral leg pain, gastric ulcers, sinus infections, STATED HAS POOR CIRCULATION, viral meningitis, HEP C. 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 spleenectomy 2018, L upper lobectomy d/t pneumothoraxs. Past Anesthesia/Blood Transfusion Reactions: No Reported Reaction Past Psychological History: Anxiety Smoking Status: Current every day smoker Past Alcohol Use History: None Reported, Occasional Past Drug Use History: Marijuana, Methamphetamine, Prescription Drug Abuse - Past Family History Father Additional Family Medical History / Comment(s): Father is with history of AIDS. Mother Family Medical History: Diabetes Mellitus Additional Family Medical History / Comment(s): Mother at age 49 from liver cirrhosis secondary to alcohol abuse. Brother(s) Additional Family Medical History / Comment(s): Patient has one brother with no major medical problems. General Exam Limitations: no limitations General appearance: alert, in no apparent distress ENT exam: Present: normal exam, mucous membranes moist Neck exam: Present: normal inspection. Absent: tenderness, meningismus, lymphadenopathy Respiratory exam: Present: wheezes. Absent: normal lung sounds bilaterally, respiratory distress, rales, rhonchi, stridor Cardiovascular Exam: Present: regular rate, normal rhythm, systolic murmur. Absent: normal heart sounds, diastolic murmur, rubs, gallop, clicks Course Vital Signs 03/05/24 12:42 Temperature 97.9 F Pulse Rate 91 Respiratory 18 Rate Blood Pressure 183/78 O2 Sat by Pulse 98 Oximetry Medical Decision Making - Medical Decision Making Was pt. sent in by a medical professional or institution (, PA, CUSTOMER CARE COORDINATOR, urgent care, hospital, or long term...) When possible be specific @ -No Did you speak to anyone other than the patient for history (EMS, parent, family, police, friend...)? What history was obtained from this source @ -EMS providing past medical history Did you review nursing and triage notes (agree or disagree)? Why? @ -I reviewed and agree with nursing and triage notes Were old charts reviewed (outside hosp., previous admission, EMS record, old EKG, old radiological studies, urgent care reports/EKG's, long term records)? Report findings @ -No old charts were reviewed Differential Diagnosis (chest pain, altered mental status, abdominal pain women, abdominal pain men, vaginal bleeding, weakness, fever, dyspnea, syncope, headache, dizziness, GI bleed, back pain, seizure, CVA, palpatations, mental health, musculoskeletal)? @ -Differential Chest Pain: Stable Angina, Unstable Angina, STEMI, NSTEMI Aortic Dissection, Pneumothorax, Musculoskeletal, Esophageal Spasm GERD, Cholecystitis, Pancreatitis, Zoster, this is not meant to be an all-inclusive list. EKG interpreted by me (3pts min.). @ -As above X-rays interpreted by me (1pt min.). @ -None done CT interpreted by me (1pt min.). @ -None done U/S interpreted by me (1pt. min.). @ -None done What testing was considered but not performed or refused? (CT, X-rays, U/S, labs)? Why? @ -Recommend labs, EKG and chest x-ray patient refuses What meds were considered but not given or refused? Why? @ -None Did you discuss the management of the patient with other professionals (professionals i.e. , PA, CUSTOMER CARE COORDINATOR, lab, RT, psych nurse, social media editor, manager program, teacher, chief learning officer, showcase maker)? Give summary @ -No Was smoking cessation discussed for >3mins.? @ -No Was critical care preformed (if so, how long)? @ -No Were there social determinants of health that impacted care today? How? (Homelessness, low income, unemployed, alcoholism, drug addiction, transportation, low edu. Level, literacy, decrease access to med. care, correction, rehab)? @ -No Was there de-escalation of care discussed even if they declined (Discuss DNR or withdrawal of care, Hospice)? DNR status @ -No What co-morbidities impacted this encounter? (DM, HTN, Smoking, COPD, CAD, Cancer, CVA, ARF, Chemo, Hep., AIDS, mental health diagnosis, sleep apnea, morbid obesity)? @ -Marfan's, CAD, chronic lung disease Was patient admitted / discharged? Hospital course, mention meds given and route, prescriptions, significant lab abnormalities, going to OR and other pertinent info. @ -Discharge patient refused all testing she was given a prescription for her Coumadin as prior to this for her mechanical valve. Undiagnosed new problem with uncertain prognosis? @ -No Drug Therapy requiring intensive monitoring for toxicity (Heparin, Nitro, Insulin, Cardizem)? @ -No Were any procedures done? @ -No Diagnosis/symptom? @ -Chronic pain, medication refill Acute, or Chronic, or Acute on Chronic? @ -Acute Uncomplicated (without systemic symptoms) or Complicated (systemic symptoms)? @ -Uncomplicated Side effects of treatment? @ -No Exacerbation, Progression, or Severe Exacerbation? @ -No Poses a threat to life or bodily function? How? (Chest pain, USA, CA, pneumonia, PE, COPD, DKA, ARF, appy, cholecystitis, CVA, Diverticulitis, Homicidal, Suicidal, threat to staff... and all critical care pts) @ -No Disposition Clinical Impression: Chronic pain, Medication refill Disposition: HOME SELF-CARE Condition: Stable Additional Instructions: Please return to the Emergency Department if symptoms worsen or any other concerns. Prescriptions: Warfarin [Coumadin] 7.5 mg PO DAILY #30 tab Is patient prescribed a controlled substance at d/c from ED?: No Referrals: None,Stated [Primary Care Provider] - 1-2 days Time of Disposition: 12:48
[2024-03-05 12:56] VITALS: BP 183/78; PULSE 91; RESP 18; TEMP 97.9
== END 2024-03-05 13:26 | disposition home or self-care (01) ==
LOC: EC 12:41
DX: Z76.0 Encounter for issue of repeat prescription (principal); G89.29 Other chronic pain; F17.200 Nicotine dependence, unspecified, uncomplicated; Z88.0 Allergy status to penicillin; Z88.5 Allergy status to narcotic agent; Z88.8 Allergy status to other drugs, medicaments and biological substances; Z95.1 Presence of aortocoronary bypass graft; Z95.2 Presence of prosthetic heart valve; Z86.73 Personal history of transient ischemic attack (TIA), and cerebral infarction without residual deficits
CPT/HCPCS: 99284

== ENCOUNTER 2024-03-12 08:20 | Emergency (ER) | payer OTHER ==
--- NOTE | 2024-03-12 08:26 | ED ---
General Adult HPI - General Stated complaint: Chest pain Time Seen by Provider: 03/12/24 08:24 Source: patient, EMS, RN notes reviewed, old records reviewed Mode of arrival: EMS Limitations: no limitations - History of Present Illness Initial comments: 38-year-old female presents emergency department via EMS for chest wall pain. This is chronic pain in nature she denies any trauma patient states that she believes she should be back on her [place]. Patient does have long history of chronic issues. She denies any palpitations shortness of breath fevers chills nausea vomiting. - Related Data Home Medications Medication Instructions Recorded Confirmed Warfarin [Coumadin] 5 mg PO HS 07/25/19 04/24/23 Unknown Blood Pressure Medication 1 dose PO DIRECTED PRN 04/24/23 04/24/23 Previous Rx's Medication Instructions Recorded Warfarin [Coumadin] 7.5 mg PO DAILY #30 tab 03/05/24 Allergies Allergy/AdvReac Type Severity Reaction Status Date / Time Penicillins Allergy Rash/Hives Verified 03/12/24 08:28 chlordiazepoxide HCl AdvReac SEE COMMENT Verified 03/12/24 08:28 [From Librium] ketorolac [From Toradol] AdvReac ANXIETY Verified 03/12/24 08:28 morphine AdvReac Unknown Verified 03/12/24 08:28 prochlorperazine edisylate AdvReac PANIC Verified 03/12/24 08:28 [From Compazine] ATTACK prochlorperazine maleate AdvReac PANIC Verified 03/12/24 08:28 [From Compazine] ATTACK Review of Systems ROS Statement: Those systems with pertinent positive or pertinent negative responses have been documented in the HPI. ROS Other: All systems not noted in ROS Statement are negative. Past Medical History Past Medical History: Heart Failure, CVA/TIA, Liver Disease, Neurologic Disorder, Osteoarthritis (OA), Pneumonia, Seizure Disorder Additional Past Medical History / Comment(s): Stroke with residual right-sided weakness 2017, TIAs, marfan's syndrome, ArnoldChiari malformation, spontaneous pneumothorax x 21, scoliosis and pectus excavatum secondary to Marfan's, chronic back pain, bilateral leg pain, gastric ulcers, sinus infections, STATED HAS POOR CIRCULATION, viral meningitis, HEP C. 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 spleenectomy 2018, L upper lobectomy d/t pneumothoraxs. Past Anesthesia/Blood Transfusion Reactions: No Reported Reaction Past Psychological History: Anxiety Smoking Status: Current every day smoker Past Alcohol Use History: None Reported, Occasional Past Drug Use History: Marijuana, Methamphetamine, Prescription Drug Abuse - Past Family History Father Additional Family Medical History / Comment(s): Father is with history of AIDS. Mother Family Medical History: Diabetes Mellitus Additional Family Medical History / Comment(s): Mother at age 49 from liver cirrhosis secondary to alcohol abuse. Brother(s) Additional Family Medical History / Comment(s): Patient has one brother with no major medical problems. General Exam Limitations: no limitations General appearance: alert, in no apparent distress Head exam: Present: atraumatic, normocephalic, normal inspection Eye exam: Present: normal appearance, PERRL, EOMI. Absent: scleral icterus, conjunctival injection, periorbital swelling Neck exam: Present: normal inspection. Absent: tenderness, meningismus, lymphadenopathy Respiratory exam: Present: wheezes, chest wall tenderness. Absent: normal lung sounds bilaterally, respiratory distress, rales, rhonchi, stridor Cardiovascular Exam: Present: regular rate, normal rhythm, systolic murmur. Absent: diastolic murmur, rubs, gallop, clicks Extremities exam: Absent: normal inspection Back exam: Absent: normal inspection (Deformity) Course Vital Signs 03/12/24 03/12/24 08:25 08:32 Temperature 98.6 F Pulse Rate 76 Pulse Rate [ 75 Pulse Oximetery ] Respiratory 17 Rate Blood Pressure 165/75 O2 Sat by Pulse 97 Oximetry Medical Decision Making - Medical Decision Making Was pt. sent in by a medical professional or institution (, PA, ELECTRICAL CAD TECHNICIAN, urgent care, hospital, or retirement...) When possible be specific @ -No Did you speak to anyone other than the patient for history (EMS, parent, family, police, friend...)? What history was obtained from this source @ -No Did you review nursing and triage notes (agree or disagree)? Why? @ -I reviewed and agree with nursing and triage notes Were old charts reviewed (outside hosp., previous admission, EMS record, old EKG, old radiological studies, urgent care reports/EKG's, retirement records)? Report findings @ -[Reviewed her charts including EKG, laboratory studies, chest x-ray Differential Diagnosis (chest pain, altered mental status, abdominal pain women, abdominal pain men, vaginal bleeding, weakness, fever, dyspnea, syncope, headache, dizziness, GI bleed, back pain, seizure, CVA, palpatations, mental health, musculoskeletal)? @ -Differential Chest Pain: Stable Angina, Unstable Angina, STEMI, NSTEMI Aortic Dissection, Pneumothorax, Musculoskeletal, Esophageal Spasm GERD, Cholecystitis, Pancreatitis, Zoster, this is not meant to be an all-inclusive list. EKG interpreted by me (3pts min.). @ -None X-rays interpreted by me (1pt min.). @ -None done CT interpreted by me (1pt min.). @ -None done U/S interpreted by me (1pt. min.). @ -None done What testing was considered but not performed or refused? (CT, X-rays, U/S, labs)? Why? @ -Considering labs, x-ray and EKG patient refuses all testing What meds were considered but not given or refused? Why? @ -None Did you discuss the management of the patient with other professionals (professionals i.e. DrRick, PA, ELECTRICAL CAD TECHNICIAN, lab, RT, psych nurse, licensed social worker, student career development specialist, teacher, corporate officer, case investigator)? Give summary @ -No Was smoking cessation discussed for >3mins.? @ -No Was critical care preformed (if so, how long)? @ -No Were there social determinants of health that impacted care today? How? (Homelessness, low income, unemployed, alcoholism, drug addiction, transportation, low edu. Level, literacy, decrease access to med. care, shelter, rehab)? @ -No Was there de-escalation of care discussed even if they declined (Discuss DNR or withdrawal of care, Hospice)? DNR status @ -No What co-morbidities impacted this encounter? (DM, HTN, Smoking, COPD, CAD, Cancer, CVA, ARF, Chemo, Hep., AIDS, mental health diagnosis, sleep apnea, morbid obesity)? @ -None Was patient admitted / discharged? Hospital course, mention meds given and route, prescriptions, significant lab abnormalities, going to OR and other pertinent info. @ -Discharge patient presented for chronic pain including chest wall pain. She refuses all testing was discharged in stable condition return parameters discussed. Undiagnosed new problem with uncertain prognosis? @ -No Drug Therapy requiring intensive monitoring for toxicity (Heparin, Nitro, Insulin, Cardizem)? @ -No Were any procedures done? @ -No Diagnosis/symptom? @Chest wall pain Acute, or Chronic, or Acute on Chronic? @ -Acute on chronic Uncomplicated (without systemic symptoms) or Complicated (systemic symptoms)? @ -Complicated Side effects of treatment? @ -No Exacerbation, Progression, or Severe Exacerbation? @ -No Poses a threat to life or bodily function? How? (Chest pain, [place], [place], pneumonia, PE, COPD, DKA, ARF, appy, cholecystitis, CVA, Diverticulitis, Homicidal, Suicidal, threat to staff... and all critical care pts) @ -No Disposition Clinical Impression: Chest wall pain, Chronic pain Disposition: HOME SELF-CARE Condition: Stable Instructions (If sedation given, give patient instructions): Chest Pain (ED) Additional Instructions: Please return to the Emergency Department if symptoms worsen or any other concerns. Is patient prescribed a controlled substance at d/c from ED?: No Referrals: None,Stated [Primary Care Provider] - 1-2 days Time of Disposition: 08:26
[2024-03-12 08:28] VITALS: BP 165/75; RESP 17; TEMP 98.6
[2024-03-12 08:33] VITALS: PULSE 75
[2024-03-12] MEDS: traMADol 50 MG TAB PO STA (08:33)
== END 2024-03-12 08:36 | disposition home or self-care (01) ==
LOC: EC 08:20
DX: G89.29 Other chronic pain (principal); R07.89 Other chest pain; R06.2 Wheezing; F17.200 Nicotine dependence, unspecified, uncomplicated; Z88.0 Allergy status to penicillin; Z88.5 Allergy status to narcotic agent; Z88.6 Allergy status to analgesic agent; Z88.8 Allergy status to other drugs, medicaments and biological substances; Z86.73 Personal history of transient ischemic attack (TIA), and cerebral infarction without residual deficits
CPT/HCPCS: 99285

== ENCOUNTER 2024-03-28 09:52 | Emergency (ER) | payer OTHER ==
[2024-03-28 09:56] VITALS: RESP 18
--- NOTE | 2024-03-28 10:05 | ED ---
Lower Extremity Injury HPI - General Chief Complaint: Extremity Injury, Lower Stated Complaint: leg pain Time Seen by Provider: 03/28/24 10:02 Source: patient, EMS, RN notes reviewed Mode of arrival: EMS Limitations: no limitations - History of Present Illness Initial Comments: 38-year-old female presented to the ER via EMS with a chief complaint of left thigh pain. Patient states this is chronic and has been ongoing for the past 3 to 4 months. She does report a remote history of left hip fracture which has fully healed. She denies any new injuries or traumas. Denies any paresthesias. Reporting pain over her greater trochanter and thigh. No fevers or chills. Patient is able to ambulate without difficulty. Denies any other complaints at this time. - Related Data Home Medications Medication Instructions Recorded Confirmed Warfarin [Coumadin] 5 mg PO HS 07/25/19 04/24/23 Unknown Blood Pressure Medication 1 dose PO DIRECTED PRN 04/24/23 04/24/23 Previous Rx's Medication Instructions Recorded Warfarin [Coumadin] 7.5 mg PO DAILY #30 tab 03/05/24 Allergies Allergy/AdvReac Type Severity Reaction Status Date / Time Penicillins Allergy Rash/Hives Verified 03/28/24 09:56 chlordiazepoxide HCl AdvReac SEE COMMENT Verified 03/28/24 09:56 [From Librium] ketorolac [From Toradol] AdvReac ANXIETY Verified 03/28/24 09:56 morphine AdvReac Unknown Verified 03/28/24 09:56 prochlorperazine edisylate AdvReac PANIC Verified 03/28/24 09:56 [From Compazine] ATTACK prochlorperazine maleate AdvReac PANIC Verified 03/28/24 09:56 [From Compazine] ATTACK Review of Systems ROS Statement: Those systems with pertinent positive or pertinent negative responses have been documented in the HPI. ROS Other: All systems not noted in ROS Statement are negative. Past Medical History Past Medical History: Heart Failure, CVA/TIA, Liver Disease, Neurologic Disorder, Osteoarthritis (OA), Pneumonia, Seizure Disorder Additional Past Medical History / Comment(s): Stroke with residual right-sided weakness 2017, TIAs, marfan's syndrome, ArnoldChiari malformation, spontaneous pneumothorax x 21, scoliosis and pectus excavatum secondary to Marfan's, chronic back pain, bilateral leg pain, gastric ulcers, sinus infections, STATED HAS POOR CIRCULATION, viral meningitis, HEP C. 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 spleenectomy 2018, L upper lobectomy d/t pneumothoraxs. Past Anesthesia/Blood Transfusion Reactions: No Reported Reaction Past Psychological History: Anxiety Smoking Status: Current every day smoker Past Alcohol Use History: None Reported, Occasional Past Drug Use History: Marijuana, Methamphetamine, Prescription Drug Abuse - Past Family History Father Additional Family Medical History / Comment(s): Father is with history of AIDS. Mother Family Medical History: Diabetes Mellitus Additional Family Medical History / Comment(s): Mother at age 49 from liver cirrhosis secondary to alcohol abuse. Brother(s) Additional Family Medical History / Comment(s): Patient has one brother with no major medical problems. General Exam Limitations: no limitations General appearance: alert, in no apparent distress Respiratory exam: Present: normal lung sounds bilaterally. Absent: respiratory distress, wheezes, rales, rhonchi, stridor Cardiovascular Exam: Present: regular rate, normal rhythm, normal heart sounds. Absent: systolic murmur, diastolic murmur, rubs, gallop, clicks Extremities exam: Present: tenderness (Left lateral thigh. 2+ left PT and DP pulse. no rash, erythema, bruising, or wounds. Bilateral strength equal.) Skin exam: Present: warm, dry, intact, normal color. Absent: rash Course Vital Signs 03/28/24 03/28/24 09:54 10:42 Temperature 97.4 F L 97.7 F Pulse Rate 76 74 Respiratory 18 18 Rate Blood Pressure 156/76 148/82 O2 Sat by Pulse 99 99 Oximetry Medical Decision Making - Medical Decision Making Was pt. sent in by a medical professional or institution (, PA, RECOVERY OPERATOR HELPER, urgent care, hospital, or detention...) When possible be specific @ -No Did you speak to anyone other than the patient for history (EMS, parent, family, police, friend...)? What history was obtained from this source @ -No Did you review nursing and triage notes (agree or disagree)? Why? @ -I reviewed and agree with nursing and triage notes Were old charts reviewed (outside hosp., previous admission, EMS record, old EKG, old radiological studies, urgent care reports/EKG's, detention records)? Report findings @ -No old charts were reviewed Differential Diagnosis (chest pain, altered mental status, abdominal pain women, abdominal pain men, vaginal bleeding, weakness, fever, dyspnea, syncope, headache, dizziness, GI bleed, back pain, seizure, CVA, palpatations, mental health, musculoskeletal)? @ -Differential Musculoskeletal: Muscular strain, contusion, ligament sprain, fracture, arthritis, septic arthritis, bursitis, cellulitis, muscle spasm, nerve compression, DVT, arterial occlusion, herpes zoster, electrolyte abnormality, tumor.... This is not meant to be in all inclusive list EKG interpreted by me (3pts min.). @ -None X-rays interpreted by me (1pt min.). @ -Left hip AP pelvis x-rays interpreted me negative for acute process. Hardware in place. CT interpreted by me (1pt min.). @ -None done U/S interpreted by me (1pt. min.). @ -None done What testing was considered but not performed or refused? (CT, X-rays, U/S, labs)? Why? @ -None What meds were considered but not given or refused? Why? @ -Patient refused Tylenol. Did you discuss the management of the patient with other professionals (professionals i.e. , PA, RECOVERY OPERATOR HELPER, lab, RT, psych nurse, child protective services social worker, director nursery school, teacher, fire control officer, shoe parts caser)? Give summary @ -No Was smoking cessation discussed for >3mins.? @ -No Was critical care preformed (if so, how long)? @ -No Were there social determinants of health that impacted care today? How? (Homelessness, low income, unemployed, alcoholism, drug addiction, transportation, low edu. Level, literacy, decrease access to med. care, long term, rehab)? @ -No Was there de-escalation of care discussed even if they declined (Discuss DNR or withdrawal of care, Hospice)? DNR status @ -No What co-morbidities impacted this encounter? (DM, HTN, Smoking, COPD, CAD, Cancer, CVA, ARF, Chemo, Hep., AIDS, mental health diagnosis, sleep apnea, morbid obesity)? @ -None Was patient admitted / discharged? Hospital course, mention meds given and route, prescriptions, significant lab abnormalities, going to OR and other pertinent info. @ -Discharge. 38-year-old female presented to the ER via EMS with a chief complaint of left hip pain. History and physical exam completed. Vitals stable. Patient in no signs of acute distress. Left lower extremity neurovascular intact. Patient has full active range of motion. No focal bony tenderness. No erythema, bruising, rashes or wounds. X-rays obtained negative for acute process. Patient refused analgesic medication. Upon reevaluation, patient eager for discharge and in no signs of acute distress. Results discussed with patient, all questions answered. Advise close follow-up with PCP, referral given. Return parameters discussed. Patient discharged in stable condition. Patient verbally expressed understanding and agreed with care plan. Case discussed with ED attending, . Undiagnosed new problem with uncertain prognosis? @ -No Drug Therapy requiring intensive monitoring for toxicity (Heparin, Nitro, Insulin, Cardizem)? @ -No Were any procedures done? @ -No Diagnosis/symptom? @ -Hip pain Acute, or Chronic, or Acute on Chronic? @ -Acute Uncomplicated (without systemic symptoms) or Complicated (systemic symptoms)? @ -Uncomplicated Side effects of treatment? @ -No Exacerbation, Progression, or Severe Exacerbation? @ -No Poses a threat to life or bodily function? How? (Chest pain, [place], [place], pneumonia, PE, COPD, DKA, ARF, appy, cholecystitis, CVA, Diverticulitis, Homicidal, Suicidal, threat to staff... and all critical care pts) @ -No - Radiology Data Radiology results: report reviewed, image reviewed Disposition Clinical Impression: Hip pain Disposition: HOME SELF-CARE Condition: Stable Instructions (If sedation given, give patient instructions): Hip Pain (ED) Additional Instructions: Follow-up with PCP. Return to the ER for any new or worsening concerns. Is patient prescribed a controlled substance at d/c from ED?: No Referrals: None,Stated [REFERRING] - 1-2 days Forms: Area PCPs Time of Disposition: 10:26
--- NOTE | 2024-03-28 10:21 | XR ---
EXAMINATION TYPE: XR Hip LT and AP Pelvis DATE OF EXAM: 03/28/2024 CLINICAL HISTORY: pain TECHNIQUE: AP and frogleg views of the left hip are obtained. Single view of the pelvis is also subm itted. COMPARISON: None. FINDINGS: There is no acute fracture/dislocation evident. Right hip hemiarthroplasty is noted to be in place. Dynamic compression screw and intramedullary lexx left femur.. The overlying soft tissue ap pears unremarkable. IMPRESSION: 1. There is no acute fracture or dislocation.ICD 10 NO FRACTURE, INITIAL EVALUATION
[2024-03-28] MEDS: ACETAMINOPHEN TAB 325 MG TAB PO STA (10:28)
[2024-03-28 10:43] VITALS: BP 148/82; PULSE 74; TEMP 97.7
== END 2024-03-28 10:43 | disposition home or self-care (01) ==
LOC: EC 09:52
DX: M25.552 Pain in left hip (principal); F17.200 Nicotine dependence, unspecified, uncomplicated; Z88.0 Allergy status to penicillin; Z88.6 Allergy status to analgesic agent; Z88.5 Allergy status to narcotic agent; Z88.8 Allergy status to other drugs, medicaments and biological substances
CPT/HCPCS: 73502; 99283

== ENCOUNTER 2024-06-25 06:30 | Emergency (ER) | payer OTHER ==
[2024-06-25 06:35] VITALS: BP 157/93; RESP 18; TEMP 98.2
[2024-06-25] MEDS: methylPREDNISolone SOD SUCCI 125 MG/2 ML VIAL IM ONE (06:43)
[2024-06-25] MEDS: IPRATROPIUM-ALBUTEROL 3 ML NEB INHALATION STA (06:47)
[2024-06-25 06:51] VITALS: PULSE 96
--- NOTE | 2024-06-25 06:55 | ED ---
SOB HPI - General Chief Complaint: Shortness of Breath Stated Complaint: SOB Time Seen by Provider: 06/25/24 06:31 Source: patient, EMS, RN notes reviewed Mode of arrival: EMS Limitations: no limitations - History of Present Illness Initial Comments: This is a 39-year-old female who presents to the emergency department for shortness of breath. Patient is well-known to this emergency department and has multiple medical problems. States that she woke up this morning feeling like she could not breathe. She called her boyfriend who subsequently called EMS. EMS gave her a breathing treatment en route and she states that she now feels substantially better. States that she does not want any sort of workup, states that she wants a refill on her rescue inhaler and then to be discharged home. Patient typically declines any sort of workup. Reports coughing that she states is chronic. Denies any chest pain, fevers, or chills. MD Complaint: shortness of breath - Related Data Home Medications Medication Instructions Recorded Confirmed Warfarin [Coumadin] 5 mg PO HS 07/25/19 04/24/23 Unknown Blood Pressure Medication 1 dose PO DIRECTED PRN 04/24/23 04/24/23 Previous Rx's Medication Instructions Recorded Warfarin [Coumadin] 7.5 mg PO DAILY #30 tab 03/05/24 Albuterol Sulfate [Albuterol 1 - 2 puff PO Q4-6H PRN #8.5 gm 06/25/24 Sulfate Hfa] predniSONE 50 mg PO DAILY 5 Days #5 tab 06/25/24 Allergies Allergy/AdvReac Type Severity Reaction Status Date / Time Penicillins Allergy Rash/Hives Verified 06/25/24 06:35 chlordiazepoxide HCl AdvReac SEE COMMENT Verified 06/25/24 06:35 [From Librium] ketorolac [From Toradol] AdvReac ANXIETY Verified 06/25/24 06:35 morphine AdvReac Unknown Verified 06/25/24 06:35 prochlorperazine edisylate AdvReac PANIC Verified 06/25/24 06:35 [From Compazine] ATTACK prochlorperazine maleate AdvReac PANIC Verified 06/25/24 06:35 [From Compazine] ATTACK Review of Systems ROS Statement: Those systems with pertinent positive or pertinent negative responses have been documented in the HPI. ROS Other: All systems not noted in ROS Statement are negative. Past Medical History Past Medical History: Heart Failure, CVA/TIA, Liver Disease, Neurologic Disorder, Osteoarthritis (OA), Pneumonia, Seizure Disorder Additional Past Medical History / Comment(s): Stroke with residual right-sided weakness 2017, TIAs, marfan's syndrome, ArnoldChiari malformation, spontaneous pneumothorax x 21, scoliosis and pectus excavatum secondary to Marfan's, chronic back pain, bilateral leg pain, gastric ulcers, sinus infections, STATED HAS POOR CIRCULATION, viral meningitis, HEP C. 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 spleenectomy 2018, L upper lobectomy d/t pneumothoraxs. Past Anesthesia/Blood Transfusion Reactions: No Reported Reaction Past Psychological History: Anxiety Smoking Status: Current every day smoker Past Alcohol Use History: None Reported, Occasional Past Drug Use History: Marijuana, Methamphetamine, Prescription Drug Abuse - Past Family History Father Additional Family Medical History / Comment(s): Father is with history of AIDS. Mother Family Medical History: Diabetes Mellitus Additional Family Medical History / Comment(s): Mother at age 49 from liver cirrhosis secondary to alcohol abuse. Brother(s) Additional Family Medical History / Comment(s): Patient has one brother with no major medical problems. General Exam Limitations: no limitations General appearance: alert, in no apparent distress Head exam: Present: atraumatic, normocephalic, normal inspection Respiratory exam: Present: decreased breath sounds, prolonged expiratory. Absent: wheezes, rales, rhonchi Cardiovascular Exam: Present: regular rate, normal rhythm, normal heart sounds. Absent: systolic murmur, diastolic murmur, rubs, gallop, clicks Neurological exam: Present: alert, oriented X3, CN II-XII intact Psychiatric exam: Present: normal affect, normal mood Skin exam: Present: warm, dry, intact, normal color. Absent: rash Course Vital Signs 06/25/24 06/25/24 06:32 06:49 Temperature 98.2 F Pulse Rate 99 96 Respiratory 18 Rate Blood Pressure 157/93 O2 Sat by Pulse 100 Oximetry Medical Decision Making - Medical Decision Making This is a 39 year old female who presents to the emergency department for shortness of breath. Was pt. sent in by a medical professional or institution? @ -No Did you speak to anyone other than the patient for history? @ -No Did you review nursing and triage notes? @ -Yes, and I agree, it is accurate with regards to the patient's symptoms. Were old charts reviewed? @ -No Differential Diagnosis? @ -Differential Dyspnea: Coronary syndrome, arrhythmia, tamponade, asthma, COPD, pulmonary embolism, pneumonia, pneumothorax, pulmonary effusion, anaphylaxis, diabetic ketoacidosis, flailed chest, pulmonary contusion, diaphragmatic rupture, anemia, neuromuscular, this is not meant to be an all-inclusive list. EKG interpreted by me (3pts min.)? @ -Not obtained X-rays interpreted by me (1pt min.)? @ -Not obtained CT interpreted by me (1pt min.)? @ -Not obtained U/S interpreted by me (1pt. min.)? @ -Not obtained What testing was considered but not performed? (CT, X-rays, U/S, labs)? Why? @ -EKG, lab work (CBC, CMP, PT, PTT, INR, mag, trop, BNP, cepheid 4-plex), and chest x-ray, however patient refused. What meds were considered but not given? Why? @ -None Did you discuss the management of the patient with other professionals? @ -No Did you reconcile home meds? @ -No Was smoking cessation discussed for >3mins.? @ -I discussed smoking cessation for greater than 3 minutes. The risk of smoking were discussed with the patient including but not limited to risks of cancer, stroke, coronary artery disease and COPD. Also discussed with patient were multiple methods of quitting smoking. Lastly we discussed the financial cost of smoking. Was critical care preformed (if so, how long)? @ -No Were there social determinants of health that impacted care today? How? (Homelessness, low income, unemployed, alcoholism, drug addiction, transportation, low edu. Level, literacy, decrease access to med. care, senior living, rehab)? @ -No Was there de-escalation of care discussed even if they declined? (Discuss DNR or withdrawal of care, Hospice)? @ -No What co-morbidities impacted this encounter? (DM, HTN, Smoking, COPD, CAD, Cancer, CVA, Hep., AIDS, mental health diagnosis, sleep apnea, morbid obesity)? @ -Heart failure, mechanical aortic valve replacement, CVA, Marfan syndrome, smoking Was patient admitted / discharged? @ -Discharged. On arrival patient had felt substantially better after receiving the breathing treatment from EMS. She was not in any visible respiratory distress and was maintaining adequate oxygen saturation. Patient declined any sort of workup, including an EKG, lab work, and chest x-ray. States that all she wants is a refill on her rescue inhaler and then to be discharged home. Patient typically refuses any sort of workup when presenting to the emergency department. She was given an additional DuoNeb breathing treatment while she was here as well as IM Solu-Medrol. Refill on albuterol inhaler provided as well as a prescription for a 5-day course of prednisone, which she states is also beneficial. Patient discharged home in stable condition. Case discussed with ED attending Dr. Farah. Return precautions reviewed in depth, the patient is instructed to return to the emergency department with any new, worsening, or concerning symptoms. Patient verbalized understanding. Undiagnosed new problem with uncertain prognosis? @ -None Drug Therapy requiring intensive monitoring for toxicity (Heparin, Nitro, Insulin, Cardizem)? @ -None Were any procedures done? @ -None Diagnosis/symptom? @ -Shortness of breath Acute, or Chronic, or Acute on Chronic? @ -Acute Uncomplicated (without systemic symptoms) or Complicated (systemic symptoms)? @ -Uncomplicated Side effects of treatment? @ -None Exacerbation, Progression, or Severe Exacerbation] @ -Not applicable Poses a threat to life or bodily function? @ -Unlikely Disposition Clinical Impression: Shortness of breath, Nicotine dependence Disposition: HOME SELF-CARE Instructions (If sedation given, give patient instructions): Dyspnea (ED), Shortness of Breath (ED) Additional Instructions: Return to the emergency department with any new, worsening, or concerning symptoms. Take the prednisone daily for 5 days. Use the albuterol inhaler every 4-6 hours as needed. Follow up with your primary care provider in 1-2 days. Prescriptions: Albuterol Sulfate [Albuterol Sulfate Hfa] 1 - 2 puff PO Q4-6H PRN #8.5 gm PRN Reason: Shortness Of Breath predniSONE 50 mg PO DAILY 5 Days #5 tab Is patient prescribed a controlled substance at d/c from ED?: No Referrals: Natividad Rios MD [Primary Care Provider] - 1-2 days Time of Disposition: 06:55
== END 2024-06-25 07:01 | disposition home or self-care (01) ==
LOC: EC 06:30
CPT/HCPCS: 94640; 96372; 99285; 99406

== ENCOUNTER 2024-07-09 08:46 | Emergency (ER) | payer OTHER ==
--- NOTE | 2024-07-09 08:56 | ED ---
General Adult HPI - General Stated complaint: SOB Time Seen by Provider: 07/09/24 08:49 Source: patient, RN notes reviewed, old records reviewed Limitations: no limitations - History of Present Illness Initial comments: 39-year-old female presents to emergency department with concerns for cough and dyspnea. Symptoms have been present for several days. Patient has cough that is nonproductive. Patient has congestion in her chest and upper airways. Patient feels she caught a bug. No leg pain or leg swelling. No new chest pain. No fevers at home. Patient does have history of both COPD and CHF. Patient states she has been taking her Coumadin. - Related Data Home Medications Medication Instructions Recorded Confirmed Warfarin [Coumadin] 7.5 mg PO HS 07/09/24 07/09/24 Previous Rx's Medication Instructions Recorded Albuterol Sulfate [Albuterol 2 puff INHALATION Q6H PRN #8.5 gm 07/09/24 Sulfate Hfa] predniSONE [Deltasone] 20 mg PO BID #8 tab 07/09/24 Allergies Allergy/AdvReac Type Severity Reaction Status Date / Time Penicillins Allergy Rash/Hives Verified 07/09/24 10:02 chlordiazepoxide HCl AdvReac SEE COMMENT Verified 07/09/24 10:02 [From Librium] ketorolac [From Toradol] AdvReac ANXIETY Verified 07/09/24 10:02 morphine AdvReac Unknown Verified 07/09/24 10:02 prochlorperazine edisylate AdvReac PANIC Verified 07/09/24 10:02 [From Compazine] ATTACK prochlorperazine maleate AdvReac PANIC Verified 07/09/24 10:02 [From Compazine] ATTACK Review of Systems ROS Statement: Those systems with pertinent positive or pertinent negative responses have been documented in the HPI. ROS Other: All systems not noted in ROS Statement are negative. Constitutional: Denies: fever Eyes: Denies: eye pain ENT: Denies: ear pain Respiratory: Reports: as per HPI, cough, dyspnea Cardiovascular: Denies: chest pain Endocrine: Reports: fatigue Gastrointestinal: Denies: abdominal pain Past Medical History Past Medical History: Heart Failure, CVA/TIA, Liver Disease, Neurologic Disorder, Osteoarthritis (OA), Pneumonia, Seizure Disorder Additional Past Medical History / Comment(s): Stroke with residual right-sided weakness 2017, TIAs, marfan's syndrome, ArnoldChiari malformation, spontaneous pneumothorax x 21, scoliosis and pectus excavatum secondary to Marfan's, chronic back pain, bilateral leg pain, gastric ulcers, sinus infections, STATED HAS POOR CIRCULATION, viral meningitis, HEP C. 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 spleenectomy 2018, L upper lobectomy d/t pneumothoraxs. Past Anesthesia/Blood Transfusion Reactions: No Reported Reaction Past Psychological History: Anxiety Smoking Status: Current every day smoker Past Alcohol Use History: None Reported, Occasional Past Drug Use History: Marijuana, Methamphetamine, Prescription Drug Abuse - Past Family History Father Additional Family Medical History / Comment(s): Father is with history of AIDS. Mother Family Medical History: Diabetes Mellitus Additional Family Medical History / Comment(s): Mother at age 49 from liver cirrhosis secondary to alcohol abuse. Brother(s) Additional Family Medical History / Comment(s): Patient has one brother with no major medical problems. General Exam Limitations: no limitations General appearance: alert Head exam: Present: normocephalic Eye exam: Present: normal appearance Neck exam: Present: normal inspection Respiratory exam: Present: wheezes, rhonchi Cardiovascular Exam: Present: regular rate, normal rhythm, systolic murmur GI/Abdominal exam: Present: soft. Absent: tenderness Extremities exam: Present: normal inspection. Absent: pedal edema, calf te nderness Back exam: Present: other (Severe scoliosis) Neurological exam: Present: alert Psychiatric exam: Present: normal affect, normal mood Skin exam: Present: normal color Course Vital Signs 07/09/24 07/09/24 07/09/24 08:52 09:41 10:04 Temperature 98.6 F Pulse Rate 91 80 Respiratory 24 24 Rate Blood Pressure 147/88 O2 Sat by Pulse 95 Oximetry 07/09/24 10:12 Temperature Pulse Rate 84 Respiratory Rate Blood Pressure O2 Sat by Pulse Oximetry EKG Findings - EKG Results: EKG: interpreted by ERMD (Right axis. Nonspecific T waves.), sinus rhythm, normal QRS Medical Decision Making - Medical Decision Making Was pt. sent in by a medical professional or institution ([facility]ONICA Corona, [facility], urgent care, hospital, or [facility]...) When possible be specific @ -No Did you speak to anyone other than the patient for history (EMS, parent, family, police, friend...)? What history was obtained from this source @ -No Did you review nursing and triage notes (agree or disagree)? Why? @ -I reviewed and agree with nursing and triage notes Were old charts reviewed (outside hosp., previous admission, EMS record, old EKG, old radiological studies, urgent care reports/EKG's, [facility] records)? Report findings @ -Multiple previous charts and x-rays reviewed Differential Diagnosis (chest pain, altered mental status, abdominal pain women, abdominal pain men, vaginal bleeding, weakness, fever, dyspnea, syncope, headache, dizziness, GI bleed, back pain, seizure, CVA, palpatations, mental health, musculoskeletal)? @ -Differential Dyspnea: Coronary syndrome, arrhythmia, tamponade, asthma, COPD, pulmonary embolism, pneumonia, pneumothorax, pulmonary effusion, anaphylaxis, diabetic ketoacidosis, flailed chest, pulmonary contusion, diaphragmatic rupture, anemia, neuromuscu lar, this is not meant to be an all-inclusive list. EKG interpreted by me (3pts min.). @ -As above X-rays interpreted by me (1pt min.). @ -Chest x-ray shows no acute abnormality. Prominent aorta CT interpreted by me (1pt min.). @ -None done U/S interpreted by me (1pt. min.). @ -None done What testing was considered but not performed or refused? (CT, X-rays, U/S, labs)? Why? @ -D-dimer however patient is already anticoagulated What meds were considered but not given or refused? Why? @ -None Did you discuss the management of the patient with other professionals (professionals i.e. VERONICA Corona, [facility] [facility], lab, RT, psych nurse, director of social media marketing, yarn dry room worker, teacher, chief technology officer, case advocate)? Give summary @ -No Was smoking cessation discussed for >3mins.? @ -No Was critical care preformed (if so, how long)? @ -No Were there social determinants of health that impacted care today? How? (Homelessness, low income, unemployed, alcoholism, drug addiction, transportation, low edu. Level, literacy, decrease access to med. care, half-way, rehab)? @ -No Was there de-escalation of care discussed even if they declined (Discuss DNR or withdrawal of care, Hospice)? DNR status @ -On reevaluation patient still had some wheezing. Discussion regarding admission however patient refused What co-morbidities impacted this encounter? (DM, HTN, Smoking, COPD, CAD, Cancer, CVA, ARF, Chemo, Hep., AIDS, mental health diagnosis, sleep apnea, morbid obesity)? @ -History of COPD Was patient admitted / discharged? Hospital course, mention meds given and route, prescriptions, significant lab abnormalities, going to OR and other pertinent info. @ -Patient presents with difficulty in breathing. Patient has cough and congestion. Evaluation unremarkable. Discussion with patient regarding admission however she refuses. Patient would like to be discharged and is receptive to inhaler and steroids. Patient states she does not have her inhaler anymore Undiagnosed new problem with uncertain prognosis? @ -No Drug Therapy requiring intensive monitoring for toxicity (Heparin, Nitro, Insulin, Cardizem)? @ -No Were any procedures done? @ -No Diagnosis/symptom? @ -COPD, bronchitis Acute, or Chronic, or Acute on Chronic? @ -Acute on chronic, acute Uncomplicated (without systemic symptoms) or Complicated (systemic symptoms)? @ -Default Side effects of treatment? @ -No Exacerbation, Progression, or Severe Exacerbation? @ -Exacerbation Poses a threat to life or bodily function? How? (Chest pain, [place], [place], pneumonia, PE, COPD, DKA, ARF, appy, cholecystitis, CVA, Diverticulitis, Homicidal, Suicidal, threat to staff... and all critical care pts) @ -No - Lab Data Result diagrams: 07/09/24 09:01 07/09/24 09: Lab Results 07/09/24 07/09/24 07/09/24 Range/Units 09:01 09: 09:01 WBC 4.7 (3.8-10.6) k/uL RBC 4.19 (3.80-5.40) m/uL Hgb 13.2 (11.4-16.0) gm/dL Hct 41.4 (34.0-46.0) % MCV 98.8 (80.0-100.0) fL MCH 31.6 (25.0-35.0) pg MCHC 32.0 (31.0-37.0) g/dL RDW 14.6 (11.5-15.5) % Plt Count 258 (150-450) k/uL MPV 8.4 Neutrophils % 65 % Lymphocytes % 23 % Monocytes % 8 % Eosinophils % 0 % Basophils % 2 % Neutrophils # 3.0 (1.3-7.7) k/uL Lymphocytes # 1.1 (1.0-4.8) k/uL Monocytes # 0.4 (0-1.0) k/uL Eosinophils # 0.0 (0-0.7) k/uL Basophils # 0.1 (0-0.2) k/uL PT 56.6 H (10.0-12.5) sec INR 5.8 H* (<1.2) APTT 48.4 H (22.0-30.0) sec Sodium 137 (137-145) mmol/L Potassium 4.0 (3.5-5.1) mmol/L Chloride 108 H (98-107) mmol/L Carbon Dioxide 25 (22-30) mmol/L Anion Gap 4 mmol/L BUN 4 L (7-17) mg/dL Creatinine 0.41 L (0.52-1.04) mg/dL Est GFR (CKD-EPI)AfAm >90 (>60 ml/min/1.73 sqM) Est GFR (CKD-EPI)NonAf >90 (>60 ml/min/1.73 sqM) Glucose 96 (74-99) mg/dL Plasma Lactic Acid Santino (0.7-2.0) mmol/L Calcium 8.5 (8.4-10.2) mg/dL Magnesium 1.9 (1.6-2.3) mg/dL Total Bilirubin 0.7 (0.2-1.3) mg/dL AST 32 (14-36) U/L ALT 12 (4-34) U/L Alkaline Phosphatase 101 (38-126) U/L NT-Pro-B Natriuret Pep 3180 pg/mL Total Protein 7.5 (6.3-8.2) g/dL Albumin 4.0 (3.5-5.0) g/dL Influenza Type A (PCR) (Not Detectd) Influenza Type B (PCR) (Not Detectd) RSV (PCR) (Not Detectd) SARS-CoV-2 (PCR) (Not Detectd) 07/09/24 07/09/24 Range/Units 09:01 09:01 WBC (3.8-10.6) k/uL RBC (3.80-5.40) m/uL Hgb (11.4-16.0) gm/dL Hct (34.0-46.0) % MCV (80.0-100.0) fL MCH (25.0-35.0) pg MCHC (31.0-37.0) g/dL RDW (11.5-15.5) % Plt Count (150-450) k/uL MPV Neutrophils % % Lymphocytes % % Monocytes % % Eosinophils % % Basophils % % Neutrophils # (1.3-7.7) k/uL Lymphocytes # (1.0-4.8) k/uL Monocytes # (0-1.0) k/uL Eosinophils # (0-0.7) k/uL Basophils # (0-0.2) k/uL PT (10.0-12.5) sec INR (<1.2) APTT (22.0-30.0) sec Sodium (137-145) mmol/L Potassium (3.5-5.1) mmol/L Chloride (98-107) mmol/L Carbon Dioxide (22-30) mmol/L Anion Gap mmol/L BUN (7-17) mg/dL Creatinine (0.52-1.04) mg/dL Est GFR (CKD-EPI)AfAm (>60 ml/min/1.73 sqM) Est GFR (CKD-EPI)NonAf (>60 ml/min/1.73 sqM) Glucose (74-99) mg/dL Plasma Lactic Acid Santino 1.2 (0.7-2.0) mmol/L Calcium (8.4-10.2) mg/dL Magnesium (1.6-2.3) mg/dL Total Bilirubin (0.2-1.3) mg/dL AST (14-36) U/L ALT (4-34) U/L Alkaline Phosphatase (38-126) U/L NT-Pro-B Natriuret Pep pg/mL Total Protein (6.3-8.2) g/dL Albumin (3.5-5.0) g/dL Influenza Type A (PCR) Not Detected (Not Detectd) Influenza Type B (PCR) Not Detected (Not Detectd) RSV (PCR) Not Detected (Not Detectd) SARS-CoV-2 (PCR) Not Detected (Not Detectd) Disposition Clinical Impression: Acute exacerbation of chronic obstructive pulmonary disease, Bronchitis Disposition: HOME SELF-CARE Condition: Stable Instructions (If sedation given, give patient instructions): Acute Bronchitis (ED) Additional Instructions: Prescriptions have been sent to pharmacy. Please do follow-up with your primary care physician in the next 1 or 2 days for recheck. Return for fever, increased difficulty breathing, worsening or changing symptoms or any other concerns. Please hold your Coumadin for 2 days and then have this rechecked with your primary care doctor. Prescriptions: Albuterol Sulfate [Albuterol Sulfate Hfa] 2 puff INHALATION Q6H PRN #8.5 gm PRN Reason: Shortness Of Breath predniSONE [Deltasone] 20 mg PO BID #8 tab Is patient prescribed a controlled substance at d/c from ED?: No Referrals: Natividad Rios MD [Primary Care Provider] - 1-2 days Time of Disposition: 11:35
[2024-07-09] MEDS: methylPREDNISolone SOD SUCCI 125 MG/2 ML VIAL IV STA (09:12)
[2024-07-09 09:22] LABS: Basophils # (A) 0.1 k/uL (0-0.2); Basophils % (A) 2 %; Eosinophils % (A) 0 %; HCT 41.4 % (34.0-46.0); HGB 13.2 gm/dL (11.4-16.0); Lymphocytes # (A) 1.1 k/uL (1.0-4.8); Lymphocytes % (A) 23 %; MCH 31.6 pg (25.0-35.0); MCV 98.8 fL (80.0-100.0); Mean Platelet Volume 8.4; Monocytes # (A) 0.4 k/uL (0-1.0); Monocytes % (A) 8 %; Neutrophils % (A) 65 %; Platelet Count 258 k/uL (150-450); RBC 4.19 m/uL (3.80-5.40); RDW 14.6 % (11.5-15.5); WBC 4.7 k/uL (3.8-10.6)
--- NOTE | 2024-07-09 09:30 | XR ---
EXAMINATION TYPE: XR chest 2V DATE OF EXAM: 07/09/2024 9:24 AM COMPARISON: 07/20/2022 , CT 223 CLINICAL INDICATION: Female, 39 years old with history of difficulty breathing, TECHNIQUE: XR chest 2V view(s) obtained. FINDINGS: The heart size is normal. There is aneurysmal dilatation of the thoracic aorta at the arch. The pulmonary vasculature is normal. The lungs are clear. Hyperinflation is present compatible with COPD. There is increase AP diameter at the lung base. Postsurgical changes are in the left lung apex. Scoliosis is present. IMPRESSION: 1. No acute pulmonary process. 2. Scoliosis. 3. Flattening of the diaphragms AP diameter. Correlate for COPD. 3. May be some aneurysmal dilatation of the aortic arch. [facility], , 07/09/2024 9:28 AM
[2024-07-09 09:38] LABS: Partial Thromboplastin Time 48.4 sec (22.0-30.0); Prothrombin Time 56.6 sec (10.0-12.5)
[2024-07-09 09:47] LABS: INR 5.8 (<1.2)
[2024-07-09 09:48] LABS: ALT 12 U/L (4-34); AST 32 U/L (14-36); African American GFR (CKD) >90 (>60 ml/min/1.73 sqM); Alkaline Phosphatase 101 U/L (38-126); Anion Gap 4 mmol/L; Blood Urea Nitrogen 4 mg/dL (7-17); Calcium 8.5 mg/dL (8.4-10.2); Carbon Dioxide 25 mmol/L (22-30); Chloride 108 mmol/L (98-107); Glucose 96 mg/dL (74-99); Magnesium 1.9 mg/dL (1.6-2.3); Non-African American GFR(CKD) >90 (>60 ml/min/1.73 sqM); Sodium 137 mmol/L (137-145); Total Bilirubin 0.7 mg/dL (0.2-1.3); Total Protein 7.5 g/dL (6.3-8.2)
[2024-07-09 09:57] LABS: NT-Pro-B-Type Natriuretic Pept 3180 pg/mL
[2024-07-09] MEDS: IPRATROPIUM-ALBUTEROL 3 ML NEB INHALATION STA (10:04)
[2024-07-09 12:01] VITALS: BP 147/79; PULSE 78; RESP 18; TEMP 98
== END 2024-07-09 12:02 | disposition home or self-care (01) ==
LOC: EC 08:46
DX: J44.1 Chronic obstructive pulmonary disease with (acute) exacerbation (principal); J40 Bronchitis, not specified as acute or chronic; F17.200 Nicotine dependence, unspecified, uncomplicated; Z88.0 Allergy status to penicillin; Z88.6 Allergy status to analgesic agent; Z88.5 Allergy status to narcotic agent; Z88.8 Allergy status to other drugs, medicaments and biological substances
CPT/HCPCS: 36415; 94640; 93005; 83880; 80053; 83605; 83735; 85025; 85610; 85730; 87636; 71046; 99285; 96374; J2919

== ENCOUNTER 2024-07-10 09:02 | Observation (INO) | payer OTHER ==
--- NOTE | 2024-07-10 09:31 | XR ---
EXAMINATION TYPE: XR chest 2V DATE OF EXAM: 07/10/2024 9:23 AM COMPARISON: None. CLINICAL INDICATION: Female, 39 years old with history of cough/sob, TECHNIQUE: XR c 4 scoliosis hest 2V view(s) obtained. FINDINGS: The heart size is normal. Prominence of the aortic arch remains present. The pulmonary vasculature is normal. The lungs are clear. There is a kyphosis in the lower thoracic spine. Scoliosis is present. IMPRESSION: 1. Stable from comparison. 2. No acute pulmonary process. 3. COPD 4. Scoliosis and kyphosis [facility], , 07/10/2024 9:28 AM
[2024-07-10] MEDS: AZITHROMYCIN 500 MG in SODIUM CHLORIDE 0.9% 250 ML IVPB STA (09:33)
[2024-07-10] MEDS: methylPREDNISolone SOD SUCCI 125 MG/2 ML VIAL IV SCH (09:34)
[2024-07-10] MEDS: ALBUTEROL NEBULIZED 2.5 MG/3 ML INHALATION STA (09:34)
[2024-07-10] MEDS: IPRATROPIUM-ALBUTEROL 3 ML NEB INHALATION STA (09:34)
[2024-07-10] MEDS: HYDROmorphone 1 MG/ML 1 ML SYRINGE IVP STA (09:35)
[2024-07-10 09:36] LABS: Basophils % (A) 0 %; Eosinophils % (A) 0 %; HCT 40.8 % (34.0-46.0); HGB 12.7 gm/dL (11.4-16.0); Hypochromasia Slight; Lymphocytes # (A) 0.8 k/uL (1.0-4.8); Lymphocytes % (A) 11 %; MCH 30.9 pg (25.0-35.0); MCV 99.6 fL (80.0-100.0); Mean Platelet Volume 7.7; Monocytes # (A) 0.4 k/uL (0-1.0); Monocytes % (A) 6 %; Neutrophils # (A) 5.8 k/uL (1.3-7.7); Neutrophils % (A) 81 %; Platelet Count 247 k/uL (150-450); RDW 14.2 % (11.5-15.5); WBC 7.2 k/uL (3.8-10.6)
[2024-07-10 09:56] LABS: ALT 15 U/L (4-34); AST 33 U/L (14-36); African American GFR (CKD) >90 (>60 ml/min/1.73 sqM); Albumin 4.6 g/dL (3.5-5.0); Alkaline Phosphatase 83 U/L (38-126); Anion Gap 7 mmol/L; Blood Urea Nitrogen 7 mg/dL (7-17); Calcium 9.2 mg/dL (8.4-10.2); Carbon Dioxide 27 mmol/L (22-30); Chloride 104 mmol/L (98-107); Glucose 125 mg/dL (74-99); Non-African American GFR(CKD) >90 (>60 ml/min/1.73 sqM); Potassium 3.6 mmol/L (3.5-5.1); Sodium 138 mmol/L (137-145); Total Bilirubin 0.5 mg/dL (0.2-1.3); Total Protein 8.3 g/dL (6.3-8.2)
--- NOTE | 2024-07-10 10:07 | ED ---
General Adult HPI - General Chief complaint: Shortness of Breath Stated complaint: NADIA Time Seen by Provider: 07/10/24 09:05 Source: patient, EMS, RN notes reviewed, old records reviewed Mode of arrival: EMS Limitations: no limitations - History of Present Illness Initial comments: 39-year-old female presenting for evaluation of cough and dyspnea. History of COPD, seen in the emergency department yesterday and was instructed that she would benefit from admission for further treatment. Patient declined at that time. She returns today with worsening cough and dyspnea as well as nausea. Patient has significant past medical history including Marfan's syndrome, asthma COPD, aortic dissection and polysubstance abuse. - Related Data Home Medications Medication Instructions Recorded Confirmed Warfarin [Coumadin] 7.5 mg PO HS 07/09/24 07/09/24 Previous Rx's Medication Instructions Recorded Albuterol Sulfate [Albuterol 2 puff INHALATION Q6H PRN #8.5 gm 07/09/24 Sulfate Hfa] predniSONE [Deltasone] 20 mg PO BID #8 tab 07/09/24 Allergies Allergy/AdvReac Type Severity Reaction Status Date / Time Penicillins Allergy Rash/Hives Verified 07/09/24 10:02 chlordiazepoxide HCl AdvReac SEE COMMENT Verified 07/09/24 10:02 [From Librium] ketorolac [From Toradol] AdvReac ANXIETY Verified 07/09/24 10:02 morphine AdvReac Unknown Verified 07/09/24 10:02 prochlorperazine edisylate AdvReac PANIC Verified 07/09/24 10:02 [From Compazine] ATTACK prochlorperazine maleate AdvReac PANIC Verified 07/09/24 10:02 [From Compazine] ATTACK Review of Systems ROS Statement: Those systems with pertinent positive or pertinent negative responses have been documented in the HPI. ROS Other: All systems not noted in ROS Statement are negative. Past Medical History Past Medical History: Heart Failure, CVA/TIA, Liver Disease, Neurologic Disorder, Osteoarthritis (OA), Pneumonia, Seizure Disorder Additional Past Medical History / Comment(s): Stroke with residual right-sided weakness 2017, TIAs, marfan's syndrome, ArnoldChiari malformation, spontaneous pneumothorax x 21, scoliosis and pectus excavatum secondary to Marfan's, chronic back pain, bilateral leg pain, gastric ulcers, sinus infections, STATED HAS POOR CIRCULATION, viral meningitis, HEP C. 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 spleenectomy 2018, L upper lobectomy d/t pneumothoraxs. Past Anesthesia/Blood Transfusion Reactions: No Reported Reaction Past Psychological History: Anxiety Smoking Status: Current every day smoker Past Alcohol Use History: None Reported, Occasional Past Drug Use History: Marijuana, Methamphetamine, Prescription Drug Abuse - Past Family History Father Additional Family Medical History / Comment(s): Father is with history of AIDS. Mother Family Medical History: Diabetes Mellitus Additional Family Medical History / Comment(s): Mother at age 49 from liver cirrhosis secondary to alcohol abuse. Brother(s) Additional Family Medical History / Comment(s): Patient has one brother with no major medical problems. General Exam Limitations: no limitations General appearance: alert, in no apparent distress, cachectic Head exam: Present: atraumatic, normocephalic Eye exam: Present: normal appearance, PERRL ENT exam: Present: mucous membranes dry Respiratory exam: Present: respiratory distress, wheezes, rhonchi, decreased breath sounds Cardiovascular Exam: Present: regular rate, normal rhythm, systolic murmur GI/Abdominal exam: Present: soft. Absent: distended, tenderness, guarding Extremities exam: Absent: pedal edema Neurological exam: Present: alert. Absent: motor sensory deficit Skin exam: Present: warm, dry Course Vital Signs 07/10/24 07/10/24 07/10/24 09:04 09:09 09:34 Temperature 98.3 F Pulse Rate 92 92 Respiratory 18 24 Rate Blood Pressure 169/78 O2 Sat by Pulse 95 Oximetry 07/10/24 09:38 Temperature Pulse Rate 90 Respiratory Rate Blood Pressure O2 Sat by Pulse Oximetry Medical Decision Making - Medical Decision Making Was pt. sent in by a medical professional or institution (, PA, HAND ALTERATIONS TAILOR, urgent care, hospital, or residential...) When possible be specific @ -No Did you speak to anyone other than the patient for history (EMS, parent, family, police, friend...)? What history was obtained from this source @ -No Did you review nursing and triage notes (agree or disagree)? Why? @ -I reviewed and agree with nursing and triage notes Were old charts reviewed (outside hosp., previous admission, EMS record, old EKG, old radiological studies, urgent care reports/EKG's, residential records)? Report findings @ -No old charts were reviewed Differential Diagnosis (chest pain, altered mental status, abdominal pain women, abdominal pain men, vaginal bleeding, weakness, fever, dyspnea, syncope, headache, dizziness, GI bleed, back pain, seizure, CVA, palpatations, mental health, musculoskeletal)? @ -Not applicable EKG interpreted by me (3pts min.). @ -As above X-rays interpreted by me (1pt min.). @Chest x-ray showing cardiomegaly, scoliosis, no consolidated pneumonia or pne umothorax CT interpreted by me (1pt min.). @ -None done U/S interpreted by me (1pt. min.). @ -None done What testing was considered but not performed or refused? (CT, X-rays, U/S, labs)? Why? @ -None What meds were considered but not given or refused? Why? @ -None Did you discuss the management of the patient with other professionals (professionals i.e. , PA, HAND ALTERATIONS TAILOR, lab, RT, psych nurse, certified social workers in health care, java front end web developer, teacher, professional security officer, home health care case manager)? Give summary @ -[facility] Was smoking cessation discussed for >3mins.? @ -No Was critical care preformed (if so, how long)? @ -No Were there social determinants of health that impacted care today? How? (Homelessness, low income, unemployed, alcoholism, drug addiction, transportation, low edu. Level, literacy, decrease access to med. care, shelter, rehab)? @ -No Was there de-escalation of care discussed even if they declined (Discuss DNR or withdrawal of care, Hospice)? DNR status @ -No What co-morbidities impacted this encounter? (DM, HTN, Smoking, COPD, CAD, Cancer, CVA, ARF, Chemo, Hep., AIDS, mental health diagnosis, sleep apnea, morbid obesity)? @ -Multiple comorbidities Was patient admitted / discharged? Hospital course, mention meds given and route, prescriptions, significant lab abnormalities, going to OR and other pertinent info. @ -Patient will be treated for COPD admitted for COPD exacerbation, admitted to [facility]. Undiagnosed new problem with uncertain prognosis? @ -No Drug Therapy requiring intensive monitoring for toxicity (Heparin, Nitro, Insulin, Cardizem)? @ -No Were any procedures done? @ -No Diagnosis/symptom? @ -[COPD exacerbation Acute, or Chronic, or Acute on Chronic? @ -Acute Uncomplicated (without systemic symptoms) or Complicated (systemic symptoms)? @ -[default Side effects of treatment? @ -No Exacerbation, Progression, or Severe Exacerbation? @ -No Poses a threat to life or bodily function? How? (Chest pain, [place], [place], pneumonia, PE, COPD, DKA, ARF, appy, cholecystitis, CVA, Diverticulitis, Homicidal, Suicidal, threat to staff... and all critical care pts) @ -Moderate risk, COPD - Lab Data Result diagrams: 07/10/24 09:17 07/10/24 09:17 Lab Results 07/10/24 07/10/24 07/10/24 Range/Units 09:17 09:17 09:17 WBC 7.2 (3.8-10.6) k/uL RBC 4.10 (3.80-5.40) m/uL Hgb 12.7 (11.4-16.0) gm/dL Hct 40.8 (34.0-46.0) % MCV 99.6 (80.0-100.0) fL MCH 30.9 (25.0-35.0) pg MCHC 31.0 (31.0-37.0) g/dL RDW 14.2 (11.5-15.5) % Plt Count 247 (150-450) k/uL MPV 7.7 Neutrophils % 81 % Lymphocytes % 11 % Monocytes % 6 % Eosinophils % 0 % Basophils % 0 % Neutrophils # 5.8 (1.3-7.7) k/uL Lymphocytes # 0.8 L (1.0-4.8) k/uL Monocytes # 0.4 (0-1.0) k/uL Eosinophils # 0.0 (0-0.7) k/uL Basophils # 0.0 (0-0.2) k/uL Hypochromasia Slight Sodium 138 (137-145) mmol/L Potassium 3.6 (3.5-5.1) mmol/L Chloride 104 (98-107) mmol/L Carbon Dioxide 27 (22-30) mmol/L Anion Gap 7 mmol/L BUN 7 (7-17) mg/dL Creatinine 0.40 L (0.52-1.04) mg/dL Est GFR (CKD-EPI)AfAm >90 (>60 ml/min/1.73 sqM) Est GFR (CKD-EPI)NonAf >90 (>60 ml/min/1.73 sqM) Glucose 125 H (74-99) mg/dL Plasma Lactic Acid Santino 2.3 H* (0.7-2.0) mmol/L Calcium 9.2 (8.4-10.2) mg/dL Total Bilirubin 0.5 (0.2-1.3) mg/dL AST 33 (14-36) U/L ALT 15 (4-34) U/L Alkaline Phosphatase 83 (38-126) U/L Total Protein 8.3 H (6.3-8.2) g/dL Albumin 4.6 (3.5-5.0) g/dL Disposition Clinical Impression: Acute exacerbation of chronic obstructive pulmonary disease Disposition: ADMITTED IP TO THIS HOSP Condition: Stable Is patient prescribed a controlled substance at d/c from ED?: No Referrals: None,Stated [Primary Care Provider] - 1-2 days Time of Disposition: 10:15
[2024-07-10] MEDS ORDERED: IPRATROPIUM-ALBUTEROL 3 ML NEB INHALATION PRN (10:12)
[2024-07-10] MEDS ORDERED: NALOXONE 0.4 MG/ML 1 ML VIAL IVP PRN (10:12)
[2024-07-10 10:24] LABS: Prothrombin Time 86.7 sec (10.0-12.5)
[2024-07-10 10:26] LABS: INR 8.8 (<1.2)
[2024-07-10 10:35] LABS: Partial Thromboplastin Time 49.8 sec (22.0-30.0)
[2024-07-10] MEDS: IPRATROPIUM-ALBUTEROL 3 ML NEB INHALATION SCH (11:11)
[2024-07-10] MEDS ORDERED: ONDANSETRON 4 MG/2 ML VIAL IVP PRN (13:36)
[2024-07-10] MEDS ORDERED: CALCIUM CARBONATE 500 MG CHEWABLE PO PRN (13:36)
[2024-07-10] MEDS ORDERED: ACETAMINOPHEN TAB 325 MG TAB PO PRN (13:36)
--- NOTE | 2024-07-10 14:12 | P.HPIM ---
History of Present Illness H&P Date: 07/10/24 39 year old F with PMH of Marfans, Scoliosis, COPD, Nicotine abuse, ROZINA lobectomy due to PTX, h/o polysubstance abuse, CABG, aortic dissection, Hep C, h/o CVA with right sided weakness, seizure disorder presents to the ED for SOB. She reports cough, shortness of breath and wheezing for the past week progressively getting worse. She denies any fever, chills, chest pain, palpitations, changes in urination or bowel habits. No changes in appetite or weight. She does not have a PCP. In the ED she underwent extensive evaluation. BP 145/74, HR 86, RR 20, T98.3F, 93% on RA. CBC, Coag panel, CMP significant for PT 86.7, INR 8.8, APTT 49.8, Cr 0.4, glu 125. Lactic acid 2.3. COVID, RSV, Flu neg. EKG sinus rhythm with nonspecific ST T wave changes. CXR showed no acute process. Patient is admitted for COPD exacerbation. General: non toxic, no distress, appears at stated age Derm: warm, dry Head: atraumatic, normocephalic, symmetric, poor dentition Eyes: EOMI, no lid lag, anicteric sclera Mouth: no lip lesion, mucus membranes moist Cardiovascular: S1S2 reg, no murmur, Sternal scar Lungs: Wheezing bilaterally, no rhonchi, no rales , no accessory muscle use Neuro: no focal neuro deficits Ext: Marfanoid features. Scoliosis. Psych: Alert, oriented, appropriate affect Based on my assessment of this patient, this patient meets a high complexity level of care. Acute COPD exacerbation due to acute bronchitis: Azithromycin 500 mg PO QD x 3 doses. DuoNeb QID scheduled and Q2H PRN for SOB/wheezing. SoluMedrol 60 mg IV TID. Telemetry monitoring. Pulmonary consult. Supratherapeutic INR: Coumadin dosed per pharmacy. No signs of active bleeding. Lactic acidosis: Trend until negative. Chronic conditions: Marfans, Scoliosis, COPD, Nicotine abuse, ROZINA lobectomy due to PTX, h/o polysubstance abuse, CABG, aortic dissection, Hep C, h/o CVA CODE STATUS: NO CODE but OK with intubation. DVT Prophylaxis: Warfarin. GI Prophylaxis: Protonix. Designated medical POA if patient is not able to make medical decisions for themselves: Brother I have reviewed the following retail sales consultant notes: ED note. I have reviewed the results of the following tests: As above. I have ordered the following tests: As above. I have discussed the care of this patient with the following independent historian: TANNA. I have independently interpreted the following test below: CXR I have discussed the management of this patient with the following physician: ER provider. Past Medical History Past Medical History: Heart Failure, CVA/TIA, Liver Disease, Neurologic Disorder, Osteoarthritis (OA), Pneumonia, Seizure Disorder Additional Past Medical History / Comment(s): Stroke with residual right-sided weakness 2017, TIAs, marfan's syndrome, ArnoldChiari malformation, spontaneous pneumothorax x 21, scoliosis and pectus excavatum secondary to Marfan's, chronic back pain, bilateral leg pain, gastric ulcers, sinus infections, STATED HAS POOR CIRCULATION, viral meningitis, HEP C. 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 spleenectomy 2018, L upper lobectomy d/t pneumothoraxs. Past Anesthesia/Blood Transfusion Reactions: No Reported Reaction Past Psychological History: Anxiety Smoking Status: Current every day smoker Past Alcohol Use History: None Reported, Occasional Past Drug Use History: Marijuana, Methamphetamine, Prescription Drug Abuse - Past Family History Father Additional Family Medical History / Comment(s): Father is with history of AIDS. Mother Family Medical History: Diabetes Mellitus Additional Family Medical History / Comment(s): Mother at age 49 from liver cirrhosis secondary to alcohol abuse. Brother(s) Additional Family Medical History / Comment(s): Patient has one brother with no major medical problems. Medications and Allergies Home Medications Medication Instructions Recorded Confirmed Type Warfarin [Coumadin] 7.5 mg PO HS 07/09/24 07/09/24 History predniSONE [Deltasone] 20 mg PO BID #8 tab 07/09/24 Rx Albuterol Sulfate [Albuterol 2 puff INHALATION RT-Q6H PRN 07/10/24 History Sulfate Hfa] Allergies Allergy/AdvReac Type Severity Reaction Status Date / Time Penicillins Allergy Rash/Hives Verified 07/10/24 10:21 chlordiazepoxide HCl AdvReac SEE COMMENT Verified 07/10/24 10:21 [From Librium] ketorolac [From Toradol] AdvReac ANXIETY Verified 07/10/24 10:21 morphine AdvReac Unknown Verified 07/10/24 10:21 prochlorperazine edisylate AdvReac PANIC Verified 07/10/24 10:21 [From Compazine] ATTACK prochlorperazine maleate AdvReac PANIC Verified 07/10/24 10:21 [From Compazine] ATTACK Physical Exam Vitals: Vital Signs Temp Pulse Resp BP Pulse Ox 07/10/24 13:02 86 20 145/74 93 L 07/10/24 11:21 84 07/10/24 11:11 80 07/10/24 09:38 90 07/10/24 09:34 92 07/10/24 09:09 24 07/10/24 09:04 98.3 F 92 18 169/78 95 Intake and Output 07/09/24 07/10/24 07/10/24 22:59 06:59 14:59 Other: Weight 45.359 kg Results CBC & Chem 7: 07/10/24 09:17 07/10/24 09:17 Labs: Abnormal Lab Results - Last 24 Hours (Table) 07/10/24 07/10/24 07/10/24 Range/Units 09:17 09:17 09:17 Lymphocytes # 0.8 L (1.0-4.8) k/uL PT (10.0-12.5) sec INR (<1.2) APTT (22.0-30.0) sec Creatinine 0.40 L (0.52-1.04) mg/dL Glucose 125 H (74-99) mg/dL Plasma Lactic Acid Santino 2.3 H* (0.7-2.0) mmol/L Total Protein 8.3 H (6.3-8.2) g/dL 07/10/24 Range/Units 09:17 Lymphocytes # (1.0-4.8) k/uL PT 86.7 H (10.0-12.5) sec INR 8.8 H* (<1.2) APTT 49.8 H (22.0-30.0) sec Creatinine (0.52-1.04) mg/dL Glucose (74-99) mg/dL Plasma Lactic Acid Santino (0.7-2.0) mmol/L Total Protein (6.3-8.2) g/dL
[2024-07-10] MEDS: HYDROcodone/APAP 5-325MG 1 EACH TAB PO PRN (14:50)
[2024-07-10] MEDS: HYDROmorphone 0.5 MG/0.5 ML SYRINGE IVP PRN (17:07)
[2024-07-10] MEDS: WARFARIN 0.5 MG TAB PO ONE (17:34)
[2024-07-10] MEDS: MELATONIN 3 MG TABLET PO PRN (20:33)
[2024-07-11] MEDS: PANTOPRAZOLE 40 MG TABLET PO SCH (05:30)
[2024-07-11] MEDS: ALPRAZolam 0.25 MG TAB PO ONE (05:41)
[2024-07-11 07:22] VITALS: BP 145/70; TEMP 97.4
[2024-07-11] MEDS: AZITHROMYCIN 500 MG TAB PO SCH (07:42)
[2024-07-11 07:53] VITALS: RESP 16
[2024-07-11 09:26] LABS: Blood Urea Nitrogen 11.4 mg/dL (9.0-27.0); Calcium 9.1 mg/dL (8.7-10.3); Carbon Dioxide 23.4 mmol/L (21.6-31.8); Chloride 102 mmol/L (96-109); Glucose 122 mg/dL (70-110); Potassium 4.5 mmol/L (3.5-5.5); Sodium 137 mmol/L (135-145)
[2024-07-11] MEDS: NICOTINE 21MG/24HR PATCH TRANSDERM SCH (10:26)
[2024-07-11 11:33] LABS: Basophils # (A) 0.02 X 10*3/uL (0.00-0.10); Basophils % (A) 0.1 %; Eosinophils # (A) 0 X 10*3/uL (0.04-0.35); Eosinophils % (A) 0 %; HCT 38.7 % (37.2-46.3); HGB 12.8 g/dL (12.0-15.0); Lymphocytes % (A) 6.2 %; MCH 31.6 pg (27.0-32.0); MCHC 33.1 g/dL (32.0-37.0); MCV 95.6 FL (80.0-97.0); Mean Platelet Volume 11.2 FL (9.5-12.2); Monocytes # (A) 0.32 X 10*3/uL (0.20-1.00); Monocytes % (A) 2.2 %; NRBC Per 100 WBC 0 X 10*3/uL (0.00-0.01); Neutrophils # (A) 13.19 X 10*3/uL (1.80-7.70); Neutrophils % (A) 91.2 %; Platelet Count 263 X 10*3/uL (140-440); RBC 4.05 X 10*6/uL (4.10-5.20); RDW 15.9 % (11.5-14.5); WBC 14.48 X 10*3/uL (4.50-10.00)
[2024-07-11 11:40] LABS: INR 7.46 sec (0.93-1.11); Prothrombin Time 70.6 sec (9.9-11.9)
[2024-07-11 12:02] VITALS: PULSE 76
--- NOTE | 2024-07-11 16:26 | P.DS ---
Providers Date of admission: 07/10/24 10:13 Expected date of discharge: 07/11/24 Attending physician: Reji Stearns MD Consults: 07/10/24 13:37 Consult Physician Routine Consulting Provider: Gloria Thakur Consult Reason/Comments: COPD exacerbation Do you want consulting provider notified?: Yes Primary care physician: Stated None Hospital Course: 39 year old F with PMH of Marfans, Scoliosis, COPD, Nicotine abuse, ROZINA lobectomy due to PTX, h/o polysubstance abuse, CABG, aortic dissection, Hep C, h/o CVA with right sided weakness, seizure disorder presents to the ED for SOB. She reports cough, shortness of breath and wheezing for the past week progressively getting worse. She denies any fever, chills, chest pain, palpitations, changes in urination or bowel habits. No changes in appetite or weight. She does not have a PCP. In the ED she underwent extensive evaluation. BP 145/74, HR 86, RR 20, T98.3F, 93% on RA. CBC, Coag panel, CMP significant for PT 86.7, INR 8.8, APTT 49.8, Cr 0.4, glu 125. Lactic acid 2.3. COVID, RSV, Flu neg. EKG sinus rhythm with nonspecific ST T wave changes. CXR showed no acute process. Patient is admitted for COPD exacerbation. Started on bronchodilators, SoluMedrol and Azithromycin. 07/11 Patient was seen and examined. She reports feeling better. Wanting to be discharged. CBC shows WBC 14.48 and RBC 4.5. INR is 7.46 today. BMP Cr 0.5, BUN/Cr 22.8, glu 122. Discharge Plan: Hold Coumadin for 2 days and restart usual dose. Check INR in 3 days. Information given for [facility] clinic since patient does not have a PCP. Meds prescribed: [place] PRN, Albuterol INH PRN, Symbicort, Azithromcyin, Warfarin, Protonix, Prednisone. General: non toxic, no distress, appears at stated age Derm: warm, dry Head: atraumatic, normocephalic, symmetric, poor dentition Eyes: EOMI, no lid lag, anicteric sclera Mouth: no lip lesion, mucus membranes moist Cardiovascular: S1S2 reg, no murmur, Sternal scar Lungs: Decreased BS bilaterally, no rhonchi, no rales , no accessory muscle use Neuro: no focal neuro deficits Ext: Marfanoid features. Scoliosis. Psych: Alert, oriented, appropriate affect Discharge Diagnosis: Acute COPD exacerbation due to acute bronchitis Supratherapeutic INR Lactic acidosis Chronic conditions: Marfans, Scoliosis, COPD, Nicotine abuse, ROZINA lobectomy due to PTX, h/o polysubstance abuse, CABG, aortic dissection, Hep C, h/o CVA This complex discharge took 35 minutes to complete. Patient Condition at Discharge: Stable Plan - Discharge Summary New Discharge Prescriptions: New Pantoprazole [Protonix] 40 mg PO AC-BRKFST #30 tab Budesonide-Formot 160-4.5 Mcg [Symbicort 160-4.5 Mcg Inhaler] 2 puff INHALATION BID #1 each Acetaminophen Tab [Tylenol] 650 mg PO Q6HR PRN tab PRN Reason: Mild Pain Or Fever > 100.5 Azithromycin [Zithromax] 500 mg PO DAILY #1 tab HYDROcodone/APAP 5-325MG [[place] 5-325] 1 each PO Q4HR PRN #18 tab PRN Reason: Pain Continue predniSONE [Deltasone] 20 mg PO BID #8 tab Warfarin [Coumadin] 7.5 mg PO HS #30 tab Changed Albuterol Sulfate [Albuterol Sulfate Hfa] 2 puff INHALATION RT-Q6H PRN #1 each PRN Reason: Shortness Of Breath Discharge Medication List Acetaminophen Tab [Tylenol] 650 mg PO Q6HR PRN tab 07/11/24 [Rx] Albuterol Sulfate [Albuterol Sulfate Hfa] 2 puff INHALATION RT-Q6H PRN #1 each 07/11/24 [Rx] Azithromycin [Zithromax] 500 mg PO DAILY #1 tab 07/11/24 [Rx] Budesonide-Formot 160-4.5 Mcg [Symbicort 160-4.5 Mcg Inhaler] 2 puff INHALATION BID #1 each 07/11/24 [Rx] HYDROcodone/APAP 5-325MG [[place] 5-325] 1 each PO Q4HR PRN #18 tab 07/11/24 [Rx] Pantoprazole [Protonix] 40 mg PO AC-BRKFST #30 tab 07/11/24 [Rx] Warfarin [Coumadin] 7.5 mg PO HS #30 tab 07/11/24 [Rx] predniSONE [Deltasone] 20 mg PO BID #8 tab 07/11/24 [Rx] Follow up Appointment(s)/Referral(s): Curly Neri MD [REFERRING] - 3 Days (Office is closed, please call and schedule appointment) None,Stated [Primary Care Provider] - 1-2 days Ambulatory/Diagnostic Orders: Prothrombin Time INR [LAB.AMB] Time Frame: 3 Days, Location: None Selected Patient Instructions/Handouts: How to Stop Smoking (DC), Cigarette Smoking and Your Health (GEN), COPD (Chronic Obstructive Pulmonary Disease) (DC) Activity/Diet/Wound Care/Special Instructions: Hold Coumadin for 2 more days and resume your regular dose after that. Repeat INR in 3 days to be followed up with PCP. If you are unable to follow up with your PCP, follow up with Dr. Neri within 3 days of discharge. Stop smoking. Discharge Disposition: HOME SELF-CARE
[2024-07-11] MEDS ORDERED: WARFARIN 0.5 MG TAB PO ONE (18:00)
== END 2024-07-11 15:32 | disposition home or self-care (01) ==
LOC: EC 09:02 → 6NMEDSUR 10:13
PROVIDERS: ADMIT Family Medicine; ATTEND Family Medicine
DX: J44.1 Chronic obstructive pulmonary disease with (acute) exacerbation (principal); J44.0 Chronic obstructive pulmonary disease with (acute) lower respiratory infection; J20.9 Acute bronchitis, unspecified; E87.29 Other acidosis; F17.200 Nicotine dependence, unspecified, uncomplicated; R79.1 Abnormal coagulation profile; I69.351 Hemiplegia and hemiparesis following cerebral infarction affecting right dominant side; M41.9 Scoliosis, unspecified; Q07.00 Arnold-Chiari syndrome without spina bifida or hydrocephalus; Q87.40 Marfan syndrome, unspecified; F19.11 Other psychoactive substance abuse, in remission; Z79.01 Long term (current) use of anticoagulants; Z79.899 Other long term (current) drug therapy; Z95.1 Presence of aortocoronary bypass graft; Z95.2 Presence of prosthetic heart valve; Z88.0 Allergy status to penicillin; Z88.6 Allergy status to analgesic agent; Z86.19 Personal history of other infectious and parasitic diseases; Z90.2 Acquired absence of lung [part of]; Z86.79 Personal history of other diseases of the circulatory system; Z79.52 Long term (current) use of systemic steroids
CPT/HCPCS: 96376 ×3; 96365; 96375; 99285; 36415; 94640 ×4; 80053; 80048; 83605; 85025 ×2; 85610 ×2; 85730; 87040; 71046; G0378 ×2; S4990; J0456; J1171 ×3; J2919 ×2

== ENCOUNTER 2024-07-13 22:09 | Emergency (ER) | payer OTHER ==
[2024-07-13 22:13] VITALS: TEMP 97.9
--- NOTE | 2024-07-13 22:51 | ED ---
SOB HPI - General Chief Complaint: Shortness of Breath Stated Complaint: SOB Time Seen by Provider: 07/13/24 22:49 Source: patient, EMS, RN notes reviewed Mode of arrival: EMS - History of Present Illness Initial Comments: 39-year-old female with history of COPD, Marfan syndrome, asthma, aortic dissection presenting to the ER for cough x 9 days with associated shortness of breath. Patient reports she was admitted to the hospital 3 days ago and was discharged 2 days ago. Patient states she has had shortness of breath and chest pain with inspiration since she has been discharged. She has been taking prednisone as prescribed But reports little improvement in her symptoms. Denies fevers, chills, vomiting. - Related Data Previous Rx's Medication Instructions Recorded Acetaminophen Tab [Tylenol] 650 mg PO Q6HR PRN tab 07/11/24 Albuterol Sulfate [Albuterol 2 puff INHALATION RT-Q6H PRN #1 07/11/24 Sulfate Hfa] each Azithromycin [Zithromax] 500 mg PO DAILY #1 tab 07/11/24 Budesonide-Formot 160-4.5 Mcg 2 puff INHALATION BID #1 each 07/11/24 [Symbicort 160-4.5 Mcg Inhaler] HYDROcodone/APAP 5-325MG [[place] 1 each PO Q4HR PRN #18 tab 07/11/24 5-325] Pantoprazole [Protonix] 40 mg PO AC-BRKFST #30 tab 07/11/24 Warfarin [Coumadin] 7.5 mg PO HS #30 tab 07/11/24 predniSONE [Deltasone] 20 mg PO BID #8 tab 07/11/24 Allergies Allergy/AdvReac Type Severity Reaction Status Date / Time Penicillins Allergy Rash/Hives Verified 07/13/24 22:13 chlordiazepoxide HCl AdvReac SEE COMMENT Verified 07/13/24 22:13 [From Librium] ketorolac [From Toradol] AdvReac ANXIETY Verified 07/13/24 22:13 morphine AdvReac Unknown Verified 07/13/24 22:13 prochlorperazine edisylate AdvReac PANIC Verified 07/13/24 22:13 [From Compazine] ATTACK prochlorperazine maleate AdvReac PANIC Verified 07/13/24 22:13 [From Compazine] ATTACK Review of Systems ROS Statement: Those systems with pertinent positive or pertinent negative responses have been documented in the HPI. ROS Other: All systems not noted in ROS Statement are negative. Past Medical History Past Medical History: Heart Failure, CVA/TIA, Liver Disease, Neurologic Disorder, Osteoarthritis (OA), Pneumonia, Seizure Disorder Additional Past Medical History / Comment(s): Stroke with residual right-sided weakness 2017, TIAs, marfan's syndrome, ArnoldChiari malformation, spontaneous pneumothorax x 21, scoliosis and pectus excavatum secondary to Marfan's, chronic back pain, bilateral leg pain, gastric ulcers, sinus infections, STATED HAS POOR CIRCULATION, viral meningitis, HEP C. 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 spleenectomy 2018, L upper lobectomy d/t pneumothoraxs. Past Anesthesia/Blood Transfusion Reactions: No Reported Reaction Past Psychological History: Anxiety Smoking Status: Current every day smoker Past Alcohol Use History: None Reported, Occasional Past Drug Use History: Marijuana, Methamphetamine, Prescription Drug Abuse - Past Family History Father Additional Family Medical History / Comment(s): Father is with history of AIDS. Mother Family Medical History: Diabetes Mellitus Additional Family Medical History / Comment(s): Mother at age 49 from liver cirrhosis secondary to alcohol abuse. Brother(s) Additional Family Medical History / Comment(s): Patient has one brother with no major medical problems. General Exam General appearance: alert, in no apparent distress Head exam: Present: atraumatic, normocephalic, normal inspection Eye exam: Present: normal appearance, PERRL, EOMI. Absent: scleral icterus, conjunctival injection, periorbital swelling ENT exam: Present: normal exam, mucous membranes moist Respiratory exam: Present: normal lung sounds bilaterally, wheezes (Diffuse expiratory wheezes in all lung lay), other (No retractions or cyanosis). Absent: respiratory distress, rales, rhonchi, stridor, accessory muscle use Cardiovascular Exam: Present: regular rate, normal rhythm, normal heart sounds. Absent: systolic murmur, diastolic murmur, rubs, gallop, clicks Neurological exam: Present: alert, oriented X3 Psychiatric exam: Present: normal affect, normal mood Skin exam: Present: warm, dry, intact, normal color. Absent: rash Course Vital Signs 07/13/24 07/14/24 07/14/24 22:10 00:05 00:19 Temperature 97.9 F Pulse Rate 86 84 80 Respiratory 19 Rate Blood Pressure 163/91 O2 Sat by Pulse 96 Oximetry Medical Decision Making - Medical Decision Making Was pt. sent in by a medical professional or institution (, PA, DIRECTOR DIETETICS DEPARTMENT, urgent care, hospital, or long term...) When possible be specific @ -No Did you speak to anyone other than the patient for history (EMS, parent, family, police, friend...)? What history was obtained from this source @ -No Did you review nursing and triage notes (agree or disagree)? Why? @ -I reviewed and agree with nursing and triage notes Were old charts reviewed (outside hosp., previous admission, EMS record, old EKG, old radiological studies, urgent care reports/EKG's, long term records)? Report findings @ -VS ER visit and recent admission reviewed including laboratory studies and chest x-ray Differential Diagnosis (chest pain, altered mental status, abdominal pain women, abdominal pain men, vaginal bleeding, weakness, fever, dyspnea, syncope, headache, dizziness, GI bleed, back pain, seizure, CVA, palpatations, mental health, musculoskeletal)? @ -Differential Dyspnea: Coronary syndrome, arrhythmia, tamponade, asthma, COPD, pulmonary embolism, pneumonia, pneumothorax, pulmonary effusion, anaphylaxis, diabetic ketoacidosis, flailed chest, pulmonary contusion, diaphragmatic rupture, anemia, neuromuscular, this is not meant to be an all-inclusive list. EKG interpreted by me (3pts min.). @ -As above X-rays interpreted by me (1pt min.). @ -Chest x-ray interpreted by me reveals no acute process, no change compared to previous CT interpreted by me (1pt min.). @ -None done U/S interpreted by me (1pt. min.). @ -None done What testing was considered but not performed or refused? (CT, X-rays, U/S, labs)? Why? @ -None What meds were considered but not given or refused? Why? @ -None Did you discuss the management of the patient with other professionals (professionals i.e. , PA, DIRECTOR DIETETICS DEPARTMENT, lab, RT, psych nurse, social insurance administrator, architecture internship, teacher, chief legal officer, case work aide)? Give summary @ -I spoke with Dr. Fermin from [facility] for admission for COPD exacerbation Was smoking cessation discussed for >3mins.? @ -No Was critical care preformed (if so, how long)? @ -No Were there social determinants of health that impacted care today? How? (Yossi elessness, low income, unemployed, alcoholism, drug addiction, transportation, low edu. Level, literacy, decrease access to med. care, retirement, rehab)? @ -No Was there de-escalation of care discussed even if they declined (Discuss DNR or withdrawal of care, Hospice)? DNR status @ -No What co-morbidities impacted this encounter? (DM, HTN, Smoking, COPD, CAD, Cancer, CVA, ARF, Chemo, Hep., AIDS, mental health diagnosis, sleep apnea, morbid obesity)? @ -COPD Was patient admitted / discharged? Hospital course, mention meds given and route, prescriptions, significant lab abnormalities, going to OR and other pertinent info. @ -Admitted. This is a 39-year-old female with history of COPD presenting to the ER with cough x 9 days with shortness of breath. Patient was recently admitted 3 days ago for COPD exacerbation and discharged 2 days ago. Patient reports symptoms have not been improving since discharge despite taking steroids. Vital signs are within acceptable limits, satting 96% on room air, afebrile, nontachycardic, respiratory rate 19. No signs of respiratory distress. There are expiratory wheezes in all lung lay bilaterally. Laboratory studies including CBC, CMP unremarkable. Cepheid negative. Chest x- ray interpreted by me reveals no acute process, no change compared to previous. Patient was given DuoNeb breathing treatment with mild improvement in symptoms, however patient continues to experience shortness of breath and wheezing. I spoke with Dr. Fermin from [facility] for admission for COPD exacerbation. Patient is agreeable to this plan. Case was discussed with my ED attending Dr. Farah. Undiagnosed new problem with uncertain prognosis? @ -No Drug Therapy requiring intensive monitoring for toxicity (Heparin, Nitro, Insulin, Cardizem)? @ -No Were any procedures done? @ -No Diagnosis/symptom? @ -COPD exacerbation Acute, or Chronic, or Acute on Chronic? @ -Acute Uncomplicated (without systemic symptoms) or Complicated (systemic symptoms)? @ -Complicated Side effects of treatment? @ -No Exacerbation, Progression, or Severe Exacerbation? @ -Exacerbation Poses a threat to life or bodily function? How? (Chest pain, [place], [place], pneumonia, PE, COPD, DKA, ARF, appy, cholecystitis, CVA, Diverticulitis, Homicidal, Suicidal, threat to staff... and all critical care pts) @ -Yes - Lab Data Result diagrams: 07/13/24 22:54 07/13/24 22:54 Lab Results 07/13/24 07/13/24 07/13/24 Range/Units 22:54 22:54 22:54 WBC 9.5 (3.8-10.6) k/uL RBC 4.34 (3.80-5.40) m/uL Hgb 13.5 (11.4-16.0) gm/dL Hct 42.6 (34.0-46.0) % MCV 98.2 (80.0-100.0) fL MCH 31.2 (25.0-35.0) pg MCHC 31.7 (31.0-37.0) g/dL RDW 14.3 (11.5-15.5) % Plt Count 252 (150-450) k/uL MPV 8.1 Neutrophils % 73 % Lymphocytes % 20 % Monocytes % 6 % Eosinophils % 1 % Basophils % 0 % Neutrophils # 6.9 (1.3-7.7) k/uL Lymphocytes # 1.9 (1.0-4.8) k/uL Monocytes # 0.5 (0-1.0) k/uL Eosinophils # 0.1 (0-0.7) k/uL Basophils # 0.0 (0-0.2) k/uL Hypochromasia Slight Sodium 139 (137-145) mmol/L Potassium 4.0 (3.5-5.1) mmol/L Chloride 109 H (98-107) mmol/L Carbon Dioxide 24 (22-30) mmol/L Anion Gap 6 mmol/L BUN 9 (7-17) mg/dL Creatinine 0.43 L (0.52-1.04) mg/dL Est GFR (CKD-EPI)AfAm >90 (>60 ml/min/1.73 sqM) Est GFR (CKD-EPI)NonAf >90 (>60 ml/min/1.73 sqM) Glucose 85 (74-99) mg/dL Calcium 8.6 (8.4-10.2) mg/dL Total Bilirubin 1.2 (0.2-1.3) mg/dL AST 36 (14-36) U/L ALT 16 (4-34) U/L Alkaline Phosphatase 75 (38-126) U/L Total Protein 7.0 (6.3-8.2) g/dL Albumin 3.8 (3.5-5.0) g/dL Influenza Type A (PCR) Not Detected (Not Detectd) Influenza Type B (PCR) Not Detected (Not Detectd) RSV (PCR) Not Detected (Not Detectd) SARS-CoV-2 (PCR) Not Detected (Not Detectd) - EKG Data -: EKG Interpreted by Mi EKG Comments: EKG reveals normal sinus rhythm with left ventricular hypertrophy unchanged from 4 days ago. Ventricular rate 82 bpm, MD interval 140, QRS duration 107, QT/QTc 394/432 Disposition Clinical Impression: COPD exacerbation Disposition: ADMITTED IP TO THIS HOSP Referrals: None,Stated [Primary Care Provider] - 1-2 days Time of Disposition: 00:43
[2024-07-13 23:03] LABS: Basophils % (A) 0 %; Eosinophils # (A) 0.1 k/uL (0-0.7); Eosinophils % (A) 1 %; HCT 42.6 % (34.0-46.0); HGB 13.5 gm/dL (11.4-16.0); Hypochromasia Slight; Lymphocytes # (A) 1.9 k/uL (1.0-4.8); Lymphocytes % (A) 20 %; MCH 31.2 pg (25.0-35.0); MCHC 31.7 g/dL (31.0-37.0); MCV 98.2 fL (80.0-100.0); Mean Platelet Volume 8.1; Monocytes # (A) 0.5 k/uL (0-1.0); Monocytes % (A) 6 %; Neutrophils # (A) 6.9 k/uL (1.3-7.7); Neutrophils % (A) 73 %; Platelet Count 252 k/uL (150-450); RBC 4.34 m/uL (3.80-5.40); RDW 14.3 % (11.5-15.5); WBC 9.5 k/uL (3.8-10.6)
[2024-07-13 23:25] LABS: ALT 16 U/L (4-34); AST 36 U/L (14-36); African American GFR (CKD) >90 (>60 ml/min/1.73 sqM); Albumin 3.8 g/dL (3.5-5.0); Alkaline Phosphatase 75 U/L (38-126); Anion Gap 6 mmol/L; Blood Urea Nitrogen 9 mg/dL (7-17); Calcium 8.6 mg/dL (8.4-10.2); Carbon Dioxide 24 mmol/L (22-30); Chloride 109 mmol/L (98-107); Glucose 85 mg/dL (74-99); Non-African American GFR(CKD) >90 (>60 ml/min/1.73 sqM); Sodium 139 mmol/L (137-145); Total Bilirubin 1.2 mg/dL (0.2-1.3)
[2024-07-13] MEDS: HYDROcodone/APAP 5-325MG 1 EACH TAB PO STA (23:52)
[2024-07-14] MEDS: IPRATROPIUM-ALBUTEROL 3 ML NEB INHALATION STA (00:04)
[2024-07-14] MEDS ORDERED: NALOXONE 0.4 MG/ML 1 ML VIAL IV PRN (00:41)
--- NOTE | 2024-07-14 00:57 | XR ---
EXAM: XR Chest, 2 Views CLINICAL HISTORY: ITS.REASON XR Reason: cough TECHNIQUE: Frontal and lateral views of the chest. COMPARISON: July 09, 2024. FINDINGS: Lungs: Increased AP diameter of the chest and flattening of the diaphragms. Correlate for COPD. No consolidation. Pleural space: Unremarkable. No pneumothorax. Heart: Unremarkable. No cardiomegaly. Mediastinum: Unremarkable. Normal mediastinal contour. Bones/joints: Unremarkable. No acute fracture. Vasculature: Tortuous aorta, which may be aneurysmal. Stable when compared to prior exam from July 09, 2024. IMPRESSION: 1. Tortuous aorta, which may be aneurysmal. Stable when compared to prior exam from July 09, 2024. 2. Increased AP diameter of the chest and flattening of the diaphragms. Correlate for COPD.
--- NOTE | 2024-07-14 02:56 | P.HPIM ---
History of Present Illness H&P Date: 07/14/24 History of present illness; 39-year-old female with a PMH of COPD, Marfan sy ndrome, asthma, aortic dissection, left upper lobectomy d/t pneumothorax, h/o polysubstance abuse, CABG, hepatitis C, h/o CVA with right-sided weakness and aortic valve replacement. She presented to the emergency department complaining of a cough for 6 days with associated back pain that she states is different from her chronic back pain. She was admitted to hospital 3 days ago and was discharged 2 days ago following a COPD exacerbation. She states that she has had shortness of breath and chest pain with inspiration since being discharged. She had been taking prednisone as prescribed however has reported little improvement in her symptoms. She states that since she has been discharged from the hospital she has been feeling increasing pain in her back that she describes as pleuritic and encompassing of her entire back. She rates the pain as a constant 9/10 and that nothing she has done helps. She denies any shortness of breath, cough, fevers, chills, nausea/vomiting. Labratory review: -WBCs 9.5, Hgb 13.5, hct 42.6, PLT 252; sodium 139, potassium 4.0, BUN 9, creatinine 0.43 -Respiratory viral panel all negative Imaging: -EKG done in the ER showed heart rate of 82, sinus rhythm with occasional PVCs, right axis deviation, left ventricular hypertrophy; QTc 432 -STAT CXR currently pending Vitals on arrival: -Temperature 97.9 F, blood pressure 163/91, heart rate 86, respiratory rate 19, oxygen saturation 96% on room air Patient admitted to internal medicine service REVIEW OF SYSTEMS: CONSTITUTIONAL: No fever, no malaise, no fatigue HEENT: No recent visual problems or hearing problems. Denied any sore throat. CARDIOVASCULAR: No chest pain, orthopnea, PND, no palpitations, no syncope. PULMONARY: No shortness of breath and or increased cough. Pleuritic chest pain, worse when coughing. GASTROINTESTINAL: No nausea, no vomiting, no abdominal pain. States she has been having diarrhea since she left the hospital 2 days ago. NEUROLOGICAL: No headaches, no weakness, no numbness. HEMATOLOGICAL: Denies any bleeding or petechiae. GENITOURINARY: Denies any burning micturition, frequency, or urgency. MUSCULOSKELETAL/RHEUMATOLOGICAL: Endorses worsening back pain ENDOCRINE: Denies any polyuria or polydipsia. The rest of the 14-point review of systems is negative. PHYSICAL EXAMINATION: GENERAL: The patient is alert and oriented x3, in some distress due to back p ain. Cachectic appearing HEENT: No scleral icterus. No conjunctival pallor. Normocephalic, atraumatic. CARDIOVASCULAR: S1 and S2 present. Noted click of mechanical aortic valve. PULMONARY: Clear breath sounds noted in all lung lay ABDOMEN: Soft, nontender, nondistended, normoactive bowel sounds. No palpable organomegaly. MUSCULOSKELETAL: No joint swelling or deformity. Hammertoe of the left foot. 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 EXTREMITIES: No cyanosis, clubbing, or pedal edema. NEUROLOGICAL: Gross neurological examination did not reveal any focal deficits. SKIN: No rashes. Assessment and plan #Atypical chest pain r/o ACS -Trend troponins -History of aortic valve replacement, maintained on Coumadin -Labs from 07/11 showed INR 7.46; fresh INR currently pending -Most recent echocardiogram in 07/21/2022 showed ejection fraction 50-55% -ASA and Statin -Cardiac monitoring -Echocardiogram -Cardiology consult #COPD with recent hospitalization for exacerbation #History of Marfan syndrome #History of mechanical valve replacement on Coumadin #History of endocarditis #History of heart failure with preserved ejection fraction #History of IV drug abuse #History of hepatitis C #Continued ongoing nicotine dependence Code Status: Full Code GI prohylaxis: Continue home Protonix 40 mg daily once verified by pharmacy DVT prophylaxis: On Coumadin at home, continue once verified by pharmacy Dictation was produced using [employer] dictation software. please excuse any grammatical, word or spelling errors. Past Medical History Past Medical History: Heart Failure, CVA/TIA, Liver Disease, Neurologic Disorder, Osteoarthritis (OA), Pneumonia, Seizure Disorder Additional Past Medical History / Comment(s): Stroke with residual right-sided weakness 2017, TIAs, marfan's syndrome, ArnoldChiari malformation, spontaneous pneumothorax x 21, scoliosis and pectus excavatum secondary to Marfan's, chronic back pain, bilateral leg pain, gastric ulcers, sinus infections, STATED HAS POOR CIRCULATION, viral meningitis, HEP C. 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 spleenectomy 2018, L upper lobectomy d/t pneumothoraxs. Past Anesthesia/Blood Transfusion Reactions: No Reported Reaction Past Psychological History: Anxiety Smoking Status: Current every day smoker Past Alcohol Use History: None Reported, Occasional Past Drug Use History: Marijuana, Methamphetamine, Prescription Drug Abuse - Past Family History Father Additional Family Medical History / Comment(s): Father is with history of AIDS. Mother Family Medical History: Diabetes Mellitus Additional Family Medical History / Comment(s): Mother at age 49 from liver cirrhosis secondary to alcohol abuse. Brother(s) Additional Family Medical History / Comment(s): Patient has one brother with no major medical problems. Medications and Allergies Home Medications Medication Instructions Recorded Confirmed Type Acetaminophen Tab [Tylenol] 650 mg PO Q6HR PRN tab 07/11/24 Rx Albuterol Sulfate [Albuterol 2 puff INHALATION RT-Q6H PRN #1 07/11/24 Rx Sulfate Hfa] each Azithromycin [Zithromax] 500 mg PO DAILY #1 tab 07/11/24 Rx Budesonide-Formot 160-4.5 Mcg 2 puff INHALATION BID #1 each 07/11/24 Rx [Symbicort 160-4.5 Mcg Inhaler] HYDROcodone/APAP 5-325MG [[place] 1 each PO Q4HR PRN #18 tab 07/11/24 Rx 5-325] Pantoprazole [Protonix] 40 mg PO AC-BRKFST #30 tab 07/11/24 Rx Warfarin [Coumadin] 7.5 mg PO HS #30 tab 07/11/24 Rx predniSONE [Deltasone] 20 mg PO BID #8 tab 07/11/24 Rx Allergies Allergy/AdvReac Type Severity Reaction Status Date / Time Penicillins Allergy Rash/Hives Verified 07/13/24 22:13 chlordiazepoxide HCl AdvReac SEE COMMENT Verified 07/13/24 22:13 [From Librium] ketorolac [From Toradol] AdvReac ANXIETY Verified 07/13/24 22:13 morphine AdvReac Unknown Verified 07/13/24 22:13 prochlorperazine edisylate AdvReac PANIC Verified 07/13/24 22:13 [From Compazine] ATTACK prochlorperazine maleate AdvReac PANIC Verified 07/13/24 22:13 [From Compazine] ATTACK Physical Exam Vitals: Vital Signs Temp Pulse Resp BP Pulse Ox 07/14/24 02:07 76 20 168/88 100 07/14/24 00:19 80 07/14/24 00:05 84 07/13/24 22:12 21 07/13/24 22:10 97.9 F 86 19 163/91 96 Intake and Output 07/13/24 07/13/24 07/14/24 14:59 22:59 06:59 Other: Weight 45.359 kg Results CBC & Chem 7: 07/13/24 22:54 07/13/24 22:54 Labs: Abnormal Lab Results - Last 24 Hours (Table) 07/13/24 Range/Units 22:54 Chloride 109 H (98-107) mmol/L Creatinine 0.43 L (0.52-1.04) mg/dL
[2024-07-14] MEDS ORDERED: IPRATROPIUM-ALBUTEROL 3 ML NEB INHALATION PRN (03:40)
[2024-07-14] MEDS: ATORVASTATIN 80 MG TAB PO STA (03:56)
[2024-07-14] MEDS: ASPIRIN 325 MG TAB PO STA (03:57)
[2024-07-14 04:12] LABS: INR 2.8 (<1.2); Prothrombin Time 27.8 sec (10.0-12.5)
[2024-07-14] MEDS: MORPHINE SULFATE 2 MG/ML SYRINGE IVP STA (04:31)
[2024-07-14 04:41] VITALS: BP 125/99; PULSE 96; RESP 19
[2024-07-14] MEDS ORDERED: IPRATROPIUM-ALBUTEROL 3 ML NEB INHALATION SCH (08:00)
--- NOTE | 2024-07-14 08:10 | P.DS ---
Providers Date of admission: 07/14/24 01:41 Expected date of discharge: 07/14/24 Attending physician: Ivette Fermin MD Consults: 07/14/24 03:35 Consult Physician Urgent Consulting Provider: Terry Briggs Consult Reason/Comments: chest pain Do you want consulting provider notified?: Yes Primary care physician: Stated None Hospital Course: Patient was admitted at 1:41 AM on 07/14/2024 and evaluated by overnight provider at 2:52 AM for atypical chest pain and to rule out ACS. Per documentation in chart patient left AGAINST MEDICAL ADVICE on 07/14/2024 at 6:56 AM. We were not notified by RN prior to patient leaving, I did not see, or speak with patient during this admission. Per documentation in chart patient signed AMA forms and was educated on risks of leaving prior to being cleared by provider. AGAINST MEDICAL ADVICE on 07/14/2024 at 6:56 AM Patient Condition at Discharge: Undetermined Plan - Discharge Summary New Discharge Prescriptions: No Action Pantoprazole [Protonix] 40 mg PO AC-BRKFST #30 tab Budesonide-Formot 160-4.5 Mcg [Symbicort 160-4.5 Mcg Inhaler] 2 puff INHALATION BID #1 each Acetaminophen Tab [Tylenol] 650 mg PO Q6HR PRN tab PRN Reason: Mild Pain Or Fever > 100.5 Azithromycin [Zithromax] 500 mg PO DAILY #1 tab Albuterol Sulfate [Albuterol Sulfate Hfa] 2 puff INHALATION RT-Q6H PRN #1 each PRN Reason: Shortness Of Breath HYDROcodone/APAP 5-325MG [[place] 5-325] 1 each PO Q4HR PRN #18 tab PRN Reason: Pain predniSONE [Deltasone] 20 mg PO BID #8 tab Warfarin [Coumadin] 7.5 mg PO HS #30 tab Discharge Medication List Acetaminophen Tab [Tylenol] 650 mg PO Q6HR PRN tab 07/11/24 [Rx] Albuterol Sulfate [Albuterol Sulfate Hfa] 2 puff INHALATION RT-Q6H PRN #1 each 07/11/24 [Rx] Azithromycin [Zithromax] 500 mg PO DAILY #1 tab 07/11/24 [Rx] Budesonide-Formot 160-4.5 Mcg [Symbicort 160-4.5 Mcg Inhaler] 2 puff INHALATION BID #1 each 07/11/24 [Rx] HYDROcodone/APAP 5-325MG [[place] 5-325] 1 each PO Q4HR PRN #18 tab 07/11/24 [Rx] Pantoprazole [Protonix] 40 mg PO AC-BRKFST #30 tab 07/11/24 [Rx] Warfarin [Coumadin] 7.5 mg PO HS #30 tab 07/11/24 [Rx] predniSONE [Deltasone] 20 mg PO BID #8 tab 07/11/24 [Rx] Follow up Appointment(s)/Referral(s): None,Stated [Primary Care Provider] - 1-2 days Discharge Disposition: LEFT AGAINST MEDICAL ADVICE
[2024-07-14] MEDS ORDERED: ENOXAPARIN 40 MG/0.4 ML SYRINGE SQ SCH (09:00)
[2024-07-14] MEDS ORDERED: ASPIRIN 81 MG PO SCH (09:00)
[2024-07-14] MEDS ORDERED: WARFARIN 7.5 MG TAB PO SCH (18:00)
[2024-07-14] MEDS ORDERED: ATORVASTATIN 80 MG TAB PO SCH (21:00)
--- NOTE | 2024-07-18 16:59 | CDI ---
Documentation Clarification Form Date: 07/18/2024 04:50:57 PM From: Carolyn King Phone: Admit Date: 07/14/2024 01:41:00 AM Patient Name: Arlin Gilmore Visit Number: [id number] Discharge Date: 07/14/2024 07:06:00 AM ATTENTION: The Clinical Documentation Specialists (CDI) and [facility] Coding Staff appreciate your assistance in clarifying documentation. Please respond to the clarification below the line at the bottom and electronically sign. The CDI & [facility] Coding staff will review the response and follow-up if needed. Please note: Queries are made part of the Legal Health Record. If you have any questions, please contact the author of this message via ITS. Doctor/Provider: Ivette Fermin Patient has a documented BMI of 13.9. Additional clarification is requested. History/Risk Factors: AECOPD, Marfan syndrome, ArnoldChiari malformation, CAD w CABG, AVR on Coumadin, CDHF, Hx endocarditis, TIAs w RT weakness, IVdrug abuse and hepatitis C Clinical Indicators: Patients weight is: 45.359 Patients height is: 511 Calculated BMI is: 13.9 Cachecticappearing Treatments: Pt left AMA Please clarify, is there is an additional diagnosis that is clinically appropriate for this patient? [ ] Cachexia [ ] Underweight [ ] Malnutrition, (further specify severity and type): [ ] No additional diagnosis/not clinically significant [ ] Other, please specify [ ] Unable to determine (Template Last Revised: October 2020) MTDD
== END 2024-07-14 07:06 | disposition left against medical advice (07) ==
LOC: EC 22:09 → UNDOADMIN 07-14 01:41 → 5NMEDONC 07-14 01:41 → EC 07-14 07:06 → UNDODISIN 07-14 07:06
DX: J44.1 Chronic obstructive pulmonary disease with (acute) exacerbation (principal); I51.7 Cardiomegaly; R06.02 Shortness of breath; Q87.40 Marfan syndrome, unspecified; I69.351 Hemiplegia and hemiparesis following cerebral infarction affecting right dominant side; I50.32 Chronic diastolic (congestive) heart failure; Z95.3 Presence of xenogenic heart valve; B19.20 Unspecified viral hepatitis C without hepatic coma; G89.29 Other chronic pain; F17.200 Nicotine dependence, unspecified, uncomplicated; Z95.1 Presence of aortocoronary bypass graft; Z79.02 Long term (current) use of antithrombotics/antiplatelets; Z86.14 Personal history of Methicillin resistant Staphylococcus aureus infection; Z68.1 Body mass index [BMI] 19.9 or less, adult; Z79.01 Long term (current) use of anticoagulants; Z86.79 Personal history of other diseases of the circulatory system; Z79.899 Other long term (current) drug therapy; Z79.51 Long term (current) use of inhaled steroids
CPT/HCPCS: 99285 ×2; 96374; 36415; 94640; 93005; 80053; 84484; 85025; 85610; 87636; 71046; J2270

== ENCOUNTER 2024-07-15 09:15 | Emergency (ER) | payer OTHER ==
[2024-07-15] MEDS: HYDROcodone/APAP 7.5-325MG 1 EACH TAB PO ONE (10:00)
--- NOTE | 2024-07-15 10:04 | ED ---
Chest Pain HPI - General Chief Complaint: Chest Pain Stated Complaint: Chest pain Time Seen by Provider: 07/15/24 09:32 Source: patient, RN notes reviewed Mode of arrival: EMS Limitations: no limitations - History of Present Illness Initial Comments: This is a 39-year-old female the history of COPD and Marfans was presented to the emergency room the chief complaint of left back pain. Patient was recently admitted to the hospital on 07/13/24 discharged yesterday for COPD exacerbation. Patient was sent home with steroids and [place] to take for pain. Patient states that she is out of the [place]. States that her shortness of breath has significantly improved after hospitalization. Currently she is denying chest pain, difficulty breathing, heart palpitations, dizziness lightheadedness. Patient states that the pain in her back is exacerbated upon inspiration. Denies fevers, chills, nausea, vomiting, abdominal pain. - Related Data Home Medications Medication Instructions Recorded Confirmed Budesonide-Formot 160-4.5 Mcg 2 puff INHALATION RT-BID 07/15/24 07/15/24 [Symbicort 160-4.5 Mcg Inhaler] Previous Rx's Medication Instructions Recorded Acetaminophen Tab [Tylenol] 650 mg PO Q6HR PRN tab 07/11/24 Albuterol Sulfate [Albuterol 2 puff INHALATION RT-Q6H PRN #1 07/11/24 Sulfate Hfa] each Pantoprazole [Protonix] 40 mg PO AC-BRKFST #30 tab 07/11/24 Warfarin [Coumadin] 7.5 mg PO HS #30 tab 07/11/24 predniSONE [Deltasone] 20 mg PO BID #8 tab 07/11/24 HYDROcodone/APAP 7.5-325MG [[place] 1 tab PO Q6HR PRN 3 Days #12 tab 07/15/24 7.5-325] Allergies Allergy/AdvReac Type Severity Reaction Status Date / Time Penicillins Allergy Rash/Hives Verified 07/15/24 10:39 chlordiazepoxide HCl AdvReac SEE COMMENT Verified 07/15/24 10:39 [From Librium] ketorolac [From Toradol] AdvReac ANXIETY Verified 07/15/24 10:39 morphine AdvReac Unknown Verified 07/15/24 10:39 prochlorperazine edisylate AdvReac PANIC Verified 07/15/24 10:39 [From Compazine] ATTACK prochlorperazine maleate AdvReac PANIC Verified 07/15/24 10:39 [From Compazine] ATTACK Review of Systems ROS Statement: Those systems with pertinent positive or pertinent negative responses have been documented in the HPI. ROS Other: All systems not noted in ROS Statement are negative. Past Medical History Past Medical History: Heart Failure, COPD, CVA/TIA, Liver Disease, Neurologic Disorder, Osteoarthritis (OA), Pneumonia, Seizure Disorder Additional Past Medical History / Comment(s): Stroke with residual right-sided weakness 2017, TIAs, marfan's syndrome, ArnoldChiari malformation, spontaneous pneumothorax x 21, scoliosis and pectus excavatum secondary to Marfan's, chronic back pain, bilateral leg pain, gastric ulcers, sinus infections, STATED HAS POOR CIRCULATION, viral meningitis, HEP C. 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 spleenectomy 2018, L upper lobectomy d/t pneumothoraxs. Past Anesthesia/Blood Transfusion Reactions: No Reported Reaction Past Psychological History: Anxiety Smoking Status: Current every day smoker Past Alcohol Use History: None Reported, Occasional Past Drug Use History: Marijuana, Methamphetamine, Prescription Drug Abuse - Past Family History Father Additional Family Medical History / Comment(s): Father is with history of AIDS. Mother Family Medical History: Diabetes Mellitus Additional Family Medical History / Comment(s): Mother at age 49 from liver cirrhosis secondary to alcohol abuse. Brother(s) Additional Family Medical History / Comment(s): Patient has one brother with no major medical problems. General Exam Limitations: no limitations General appearance: alert, in no apparent distress, cachectic Eye exam: Present: normal appearance, PERRL, EOMI. Absent: scleral icterus, conjunctival injection, periorbital swelling ENT exam: Present: normal exam, mucous membranes moist Neck exam: Present: normal inspection. Absent: tenderness, meningismus, lymphadenopathy Respiratory exam: Present: normal lung sounds bilaterally, wheezes, decreased breath sounds. Absent: respiratory distress, rales, rhonchi, stridor Cardiovascular Exam: Present: regular rate, normal rhythm, normal heart sounds. Absent: systolic murmur, diastolic murmur, rubs, gallop, clicks GI/Abdominal exam: Present: soft, normal bowel sounds. Absent: distended, tenderness, guarding, rebound, rigid Extremities exam: Present: normal inspection, full ROM, normal capillary refill. Absent: tenderness, pedal edema, joint swelling, calf tenderness Back exam: Present: normal inspection, tenderness (right thoracic spine) Neurological exam: Present: alert, oriented X3, CN II-XII intact Skin exam: Present: warm, dry, intact, normal color. Absent: rash Course Vital Signs 07/15/24 07/15/24 07/15/24 09:19 10:00 10:47 Temperature 97.7 F 97.8 F Pulse Rate 86 85 87 Respiratory 20 20 18 Rate Blood Pressure 173/90 165/98 164/97 O2 Sat by Pulse 95 96 96 Oximetry Chest Pain MDM - MDM Was pt. sent in by a medical professional or institution (, PA, ICT SALES REPRESENTATIVE, urgent care, hospital, or long-term...) When possible be specific @ -No Did you speak to anyone other than the patient for history (EMS, parent, family, police, friend...)? What history was obtained from this source @ -No Did you review nursing and triage notes (agree or disagree)? Why? @ -I reviewed and agree with nursing and triage notes Were old charts reviewed (outside hosp., previous admission, EMS record, old EKG, old radiological studies, urgent care reports/EKG's, long-term records)? Report findings @ -Reviewed patient's previous emergency department visit note where she was admitted to the hospital for COPD exacerbation and discharged in stable condition with steroids Differential Diagnosis (chest pain, altered mental status, abdominal pain women, abdominal pain men, vaginal bleeding, weakness, fever, dyspnea, syncope, headache, dizziness, GI bleed, back pain, seizure, CVA, palpatations, mental health, musculoskeletal)? @ -Differential Chest Pain: Stable Angina, Unstable Angina, STEMI, NSTEMI Aortic Dissection, Pneumothorax, Musculoskeletal, Esophageal Spasm GERD, Cholecystitis, Pancreatitis, Zoster, this is not meant to be an all-inclusive list. EKG interpreted by me (3pts min.). @ -Completed at 930 sinus rhythm with a ventricular of 89, WI interval 137, QRS 108, QTc 437. No acute signs of ischemia. X-rays interpreted by me (1pt min.). @ -None done CT interpreted by me (1pt min.). @ -None done U/S interpreted by me (1pt. min.). @ -None done What testing was considered but not performed or refused? (CT, X-rays, U/S, labs)? Why? @ -None What meds were considered but not given or refused? Why? @ -None Did you discuss the management of the patient with other professionals (professionals i.e. , PA, ICT SALES REPRESENTATIVE, lab, RT, psych nurse, clinical social worker, band attacher, teacher, special weapons unit officer, briefcase sewer)? Give summary @ -No Was smoking cessation discussed for >3mins.? @ -No Was critical care preformed (if so, how long)? @ -No Were there social determinants of health that impacted care today? How? (Homel essness, low income, unemployed, alcoholism, drug addiction, transportation, low edu. Level, literacy, decrease access to med. care, shelter, rehab)? @ -No Was there de-escalation of care discussed even if they declined (Discuss DNR or withdrawal of care, Hospice)? DNR status @ -No What co-morbidities impacted this encounter? (DM, HTN, Smoking, COPD, CAD, Cancer, CVA, ARF, Chemo, Hep., AIDS, mental health diagnosis, sleep apnea, morbid obesity)? @ -None Was patient admitted / discharged? Hospital course, mention meds given and route, prescriptions, significant lab abnormalities, going to OR and other pertinent info. @ -. 39-year-old female with chest pain. Patient is overall cachectic Noted to be mildly hypertensive with a blood pressure 173/90. Patient is denying shortness of breath, difficulty breathing, anterior chest pain, heart palpitations. Posterior back pain is reproducible on palpation. Patient is provided with dose of pain medication. On reevaluation states that she is feeling much better. Patient sent a prescription for [place] and instructed to follow-up outpatient with her primary care provider for further evaluation. There is minimal clinical concern for ACS at this time therefore laboratory testing and imaging is deferred. Additionally, patient recently had chest x-ray completed 07/14/2024 therefore repeat imaging is deferred. All questions have been answered at bedside and strict return parameters discussed with the patient she is verbalized understanding. Discussed with Dr. Casillas Undiagnosed new problem with uncertain prognosis? @ -No Drug Therapy requiring intensive monitoring for toxicity (Heparin, Nitro, Insulin, Cardizem)? @ -No Were any procedures done? @ -No Diagnosis/symptom? @ -Noncardiac chest pain, back pain Acute, or Chronic, or Acute on Chronic? @ -Acute Uncomplicated (without systemic symptoms) or Complicated (systemic symptoms)? @ -Uncomplicated Side effects of treatment? @ -No Exacerbation, Progression, or Severe Exacerbation? @ -No Poses a threat to life or bodily function? How? (Chest pain, [place], [place], pneumonia, PE, COPD, DKA, ARF, appy, cholecystitis, CVA, Diverticulitis, Homicidal, Suicidal, threat to staff... and all critical care pts) @ -No Disposition Clinical Impression: Chronic pain Disposition: HOME SELF-CARE Condition: Stable Additional Instructions: Please return to the Emergency Department if symptoms worsen or any other concerns. Follow-up as scheduled with x ray control equipment repairer for further evaluation. Take prescribed medication only as needed for severe pain. Prescriptions: HYDROcodone/APAP 7.5-325MG [[place] 7.5-325] 1 tab PO Q6HR PRN 3 Days #12 tab PRN Reason: Severe Pain (Scale 7 To 10) Is patient prescribed a controlled substance at d/c from ED?: Yes When asked, does pt state using other controlled substances?: No If prescribed controlled substance>3 days was MAPS reviewed?: Prescribed <3 Days [facility]errals: [facility] [NON-STAFF] - 1-2 days [facility] [NON-STAFF] - 1-2 days None,Stated [Primary Care Provider] - 1-2 days Forms: Area PCPs Time of Disposition: 10:42
[2024-07-15 10:52] VITALS: BP 164/97; PULSE 87; RESP 18; TEMP 97.8
== END 2024-07-15 10:51 | disposition home or self-care (01) ==
LOC: EC 09:15
DX: G89.29 Other chronic pain (principal); R07.89 Other chest pain; M54.6 Pain in thoracic spine; F17.200 Nicotine dependence, unspecified, uncomplicated; Z88.0 Allergy status to penicillin; Z88.5 Allergy status to narcotic agent; Z88.8 Allergy status to other drugs, medicaments and biological substances; Z86.73 Personal history of transient ischemic attack (TIA), and cerebral infarction without residual deficits
CPT/HCPCS: 99283

== ENCOUNTER 2024-09-02 15:35 | Emergency (ER) | payer OTHER ==
[2024-09-02] MEDS: HYDROmorphone 1 MG/ML 1 ML SYRINGE IM STA (16:18)
--- NOTE | 2024-09-02 16:39 | ED ---
Back Pain HPI - General Chief Complaint: Back Pain/Injury Stated Complaint: Back/leg pain Time Seen by Provider: 09/02/24 15:53 Source: EMS Limitations: no limitations - History of Present Illness Initial Comments: 39-year-old female presenting with chief complaint of lower back pain. Patient has chronic lower back pain. She is having radiation down her left leg. This is pain that she has had in the past. She has no new injury or trauma. There are no new qualities to this pain. No fevers or chills. No loss of bowel or bladder control or saddle paresthesia. - Related Data Home Medications Medication Instructions Recorded Confirmed Budesonide-Formot 160-4.5 Mcg 2 puff INHALATION RT-BID 07/15/24 07/15/24 [Symbicort 160-4.5 Mcg Inhaler] Previous Rx's Medication Instructions Recorded Acetaminophen Tab [Tylenol] 650 mg PO Q6HR PRN tab 07/11/24 Albuterol Sulfate [Albuterol 2 puff INHALATION RT-Q6H PRN #1 07/11/24 Sulfate Hfa] each Pantoprazole [Protonix] 40 mg PO AC-BRKFST #30 tab 07/11/24 Warfarin [Coumadin] 7.5 mg PO HS #30 tab 07/11/24 predniSONE [Deltasone] 20 mg PO BID #8 tab 07/11/24 HYDROcodone/APAP 7.5-325MG [[place] 1 tab PO Q6HR PRN 3 Days #12 tab 07/15/24 7.5-325] Allergies Allergy/AdvReac Type Severity Reaction Status Date / Time Penicillins Allergy Rash/Hives Verified 09/02/24 15:42 chlordiazepoxide HCl AdvReac SEE COMMENT Verified 09/02/24 15:42 [From Librium] ketorolac [From Toradol] AdvReac ANXIETY Verified 09/02/24 15:42 morphine AdvReac Unknown Verified 09/02/24 15:42 prochlorperazine edisylate AdvReac PANIC Verified 09/02/24 15:42 [From Compazine] ATTACK prochlorperazine maleate AdvReac PANIC Verified 09/02/24 15:42 [From Compazine] ATTACK Review of Systems ROS Statement: Those systems with pertinent positive or pertinent negative responses have been documented in the HPI. ROS Other: All systems not noted in ROS Statement are negative. Past Medical History Past Medical History: Heart Failure, COPD, CVA/TIA, Liver Disease, Neurologic Disorder, Osteoarthritis (OA), Pneumonia, Seizure Disorder Additional Past Medical History / Comment(s): Stroke with residual right-sided weakness 2017, TIAs, marfan's syndrome, ArnoldChiari malformation, spontaneous pneumothorax x 21, scoliosis and pectus excavatum secondary to Marfan's, chronic back pain, bilateral leg pain, gastric ulcers, sinus infections, STATED HAS POOR CIRCULATION, viral meningitis, HEP C. 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 spleenectomy 2018, L upper lobectomy d/t pneumothoraxs. Past Anesthesia/Blood Transfusion Reactions: No Reported Reaction Past Psychological History: Anxiety Smoking Status: Current every day smoker Past Alcohol Use History: None Reported, Occasional Past Drug Use History: Marijuana, Methamphetamine, Prescription Drug Abuse - Past Family History Father Additional Family Medical History / Comment(s): Father is with history of AIDS. Mother Family Medical History: Diabetes Mellitus Additional Family Medical History / Comment(s): Mother at age 49 from liver cirrhosis secondary to alcohol abuse. Brother(s) Additional Family Medical History / Comment(s): Patient has one brother with no major medical problems. General Exam Limitations: no limitations General appearance: alert, in no apparent distress Head exam: Present: atraumatic, normocephalic, normal inspection Eye exam: Present: normal appearance, EOMI Neck exam: Present: normal inspection. Absent: meningismus Respiratory exam: Absent: respiratory distress Cardiovascular Exam: Present: regular rate Back exam: Present: normal inspection, tenderness Neurological exam: Present: alert, oriented X3 Psychiatric exam: Present: normal affect, normal mood Skin exam: Present: warm, dry Course Vital Signs 09/02/24 15:41 Temperature 98.2 F Pulse Rate 73 Respiratory 18 Rate Blood Pressure 128/84 O2 Sat by Pulse 99 Oximetry Medical Decision Making - Medical Decision Making Was pt. sent in by a medical professional or institution (, [facility], [employer]K DR[employer], urgent care, hospital, or penitentiary...) When possible be specific @ -No Did you speak to anyone other than the patient for history (EMS, parent, family, police, friend...)? What history was obtained from this source @ -No Did you review nursing and triage notes (agree or disagree)? Why? @ -I reviewed and agree with nursing and triage notes Were old charts reviewed (outside hosp., previous admission, EMS record, old EKG, old radiological studies, urgent care reports/EKG's, penitentiary records)? Report findings @ -No old charts were reviewed Differential Diagnosis (chest pain, altered mental status, abdominal pain women, abdominal pain men, vaginal bleeding, weakness, fever, dyspnea, syncope, headache, dizziness, GI bleed, back pain, seizure, CVA, palpatations, mental health, musculoskeletal)? @ - MDM Differential Back Pain: Strain, zoster, cauda equina syndrome, epidural abscess, vertebral osteomyelitis, discitis, fracture, subluxation, disc herniation, DJD, spinal stenosis, dissection, AAA, pancreatitis, peptic ulcer disease, pyelonephritis, kidney stone this is not meant to be an all-inclusive list. EKG interpreted by me (3pts min.). @ -As above X-rays interpreted by me (1pt min.). @ -None done CT interpreted by me (1pt min.). @ -None done U/S interpreted by me (1pt. min.). @ -None done What testing was considered but not performed or refused? (CT, X-rays, U/S, labs)? Why? @ -None What meds were considered but not given or refused? Why? @ -None Did you discuss the management of the patient with other professionals (professionals i.e. , [facility], [employer]K DRIVER, lab, RT, psych nurse, social security specialist, rn field, teacher, supervisory cbp officer, nurse case manager)? Give summary @ -No Was smoking cessation discussed for >3mins.? @ -No Was critical care preformed (if so, how long)? @ -No Were there social determinants of health that impacted care today? How? (Home lessness, low income, unemployed, alcoholism, drug addiction, transportation, low edu. Level, literacy, decrease access to med. care, senior living, rehab)? @ -No Was there de-escalation of care discussed even if they declined (Discuss DNR or withdrawal of care, Hospice)? DNR status @ -No What co-morbidities impacted this encounter? (DM, HTN, Smoking, COPD, CAD, Cancer, CVA, ARF, Chemo, Hep., AIDS, mental health diagnosis, sleep apnea, morbid obesity)? @ -None Was patient admitted / discharged? Hospital course, mention meds given and route, prescriptions, significant lab abnormalities, going to OR and other pertinent info. @ -39-year-old female presenting with chief complaint of lower back pain. This is acute on chronic pain. No new injury or new qualities to this pain. No red flag symptoms. Patient is treated with pain medication. Follow-up with PCP. Report back to ER with any new or worsening symptoms. Discussed return parameters and answered all questions. Patient conveyed verbal understanding and agreed to the plan. I discussed this case in detail with my attending Dr. Lucas Undiagnosed new problem with uncertain prognosis? @ -No Drug Therapy requiring intensive monitoring for toxicity (Heparin, Nitro, Insulin, Cardizem)? @ -No Were any procedures done? @ -No Diagnosis/symptom? @ -Lower back pain Acute, or Chronic, or Acute on Chronic? @ -Acute on chronic Uncomplicated (without systemic symptoms) or Complicated (systemic symptoms)? @ -Uncomplicated Side effects of treatment? @ -No Exacerbation, Progression, or Severe Exacerbation? @ -No Poses a threat to life or bodily function? How? (Chest pain, [place], [place], pneumonia, PE, COPD, DKA, ARF, appy, cholecystitis, CVA, Diverticulitis, Homicidal, Suicidal, threat to staff... and all critical care pts) @ -No Disposition Clinical Impression: Chronic back pain Disposition: HOME SELF-CARE Condition: Good Instructions (If sedation given, give patient instructions): Chronic Back Pain (DC) Additional Instructions: Follow-up with PCP. Report back to ER with any new or worsening symptoms. Is patient prescribed a controlled substance at d/c from ED?: No Referrals: None,Stated [Primary Care Provider] - 1-2 days Natividad Rios MD [STAFF PHYSICIAN] - [facility] - [facility]-2 days Time of Disposition: 16:39
[2024-09-02 16:59] VITALS: BP 126/68; PULSE 68; RESP 20; TEMP 98.1
== END 2024-09-02 16:57 | disposition home or self-care (01) ==
LOC: EC 15:35
DX: G89.29 Other chronic pain (principal); M54.50 Low back pain, unspecified; F17.200 Nicotine dependence, unspecified, uncomplicated; Z88.0 Allergy status to penicillin; Z88.6 Allergy status to analgesic agent; Z88.5 Allergy status to narcotic agent; Z88.8 Allergy status to other drugs, medicaments and biological substances
CPT/HCPCS: 99283; 96372; J1171

== ENCOUNTER 2024-09-03 16:38 | Emergency (ER) | payer OTHER ==
--- NOTE | 2024-09-03 17:53 | ED ---
Recheck HPI - General Stated Complaint: Back Pain Time Seen by Provider: 09/03/24 17:31 Source: RN notes reviewed, old records reviewed Mode of arrival: EMS Limitations: no limitations - History of Present Illness Initial Comments: QN-[id number] female well-known to this facility presents by EMS. Patient complaining of back pain chest pain There is some thought that patient is using EMS to get ride into town - Related Data Home Medications Medication Instructions Recorded Confirmed Budesonide-Formot 160-4.5 Mcg 2 puff INHALATION RT-BID 07/15/24 07/15/24 [Symbicort 160-4.5 Mcg Inhaler] Previous Rx's Medication Instructions Recorded Acetaminophen Tab [Tylenol] 650 mg PO Q6HR PRN tab 07/11/24 Albuterol Sulfate [Albuterol 2 puff INHALATION RT-Q6H PRN #1 07/11/24 Sulfate Hfa] each Pantoprazole [Protonix] 40 mg PO AC-BRKFST #30 tab 07/11/24 Warfarin [Coumadin] 7.5 mg PO HS #30 tab 07/11/24 predniSONE [Deltasone] 20 mg PO BID #8 tab 07/11/24 HYDROcodone/APAP 7.5-325MG [[place] 1 tab PO Q6HR PRN 3 Days #12 tab 07/15/24 7.5-325] Allergies Allergy/AdvReac Type Severity Reaction Status Date / Time Penicillins Allergy Rash/Hives Verified 09/02/24 15:42 chlordiazepoxide HCl AdvReac SEE COMMENT Verified 09/02/24 15:42 [From Librium] ketorolac [From Toradol] AdvReac ANXIETY Verified 09/02/24 15:42 morphine AdvReac Unknown Verified 09/02/24 15:42 prochlorperazine edisylate AdvReac PANIC Verified 09/02/24 15:42 [From Compazine] ATTACK prochlorperazine maleate AdvReac PANIC Verified 09/02/24 15:42 [From Compazine] ATTACK Review of Systems ROS Statement: Those systems with pertinent positive or pertinent negative responses have been documented in the HPI. ROS Other: All systems not noted in ROS Statement are negative. Past Medical History Past Medical History: Heart Failure, COPD, CVA/TIA, Liver Disease, Neurologic Disorder, Osteoarthritis (OA), Pneumonia, Seizure Disorder Additional Past Medical History / Comment(s): Stroke with residual right-sided weakness 2017, TIAs, marfan's syndrome, ArnoldChiari malformation, spontaneous pneumothorax x 21, scoliosis and pectus excavatum secondary to Marfan's, chronic back pain, bilateral leg pain, gastric ulcers, sinus infections, STATED HAS POOR CIRCULATION, viral meningitis, HEP C. 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 spleenectomy 2018, L upper lobectomy d/t pneumothoraxs. Past Anesthesia/Blood Transfusion Reactions: No Reported Reaction Past Psychological History: Anxiety Smoking Status: Current every day smoker Past Alcohol Use History: None Reported, Occasional Past Drug Use History: Marijuana, Methamphetamine, Prescription Drug Abuse - Past Family History Father Additional Family Medical History / Comment(s): Father is with history of AIDS. Mother Family Medical History: Diabetes Mellitus Additional Family Medical History / Comment(s): Mother at age 49 from liver cirrhosis secondary to alcohol abuse. Brother(s) Additional Family Medical History / Comment(s): Patient has one brother with no major medical problems. General Exam Limitations: no limitations General appearance: alert Head exam: Present: atraumatic Eye exam: Present: normal appearance Rectal exam: Present: deferred Extremities exam: Present: normal inspection Back exam: Present: normal inspection Neurological exam: Present: alert Psychiatric exam: Present: normal affect Course - Reevaluation(s) Reevaluation #1: QN completed by myself Dr Acevedo Medical Decision Making - Medical Decision Making 39 female who signed out AGAINST MEDICAL ADVICE Disposition Clinical Impression: Left against medical advice Disposition: LEFT AGAINST MEDICAL ADVICE Condition: Undetermined Referrals: None,Stated [Primary Care Provider] - 1-2 days
== END 2024-09-03 17:32 | disposition left against medical advice (07) ==
LOC: EC 16:38
DX: M54.9 Dorsalgia, unspecified (principal); Z53.29 Procedure and treatment not carried out because of patient's decision for other reasons; F17.200 Nicotine dependence, unspecified, uncomplicated; Z86.73 Personal history of transient ischemic attack (TIA), and cerebral infarction without residual deficits; Z88.0 Allergy status to penicillin; Z88.5 Allergy status to narcotic agent; Z88.8 Allergy status to other drugs, medicaments and biological substances
CPT/HCPCS: 99283

== ENCOUNTER 2024-09-05 13:26 | Emergency (ER) | payer OTHER ==
--- NOTE | 2024-09-05 14:12 | ED ---
SOB HPI - General Source: patient, RN notes reviewed Mode of arrival: wheelchair Limitations: no limitations - History of Present Illness MD Complaint: shortness of breath, cough <María Lepe - Last Filed: 09/05/24 14:11> <Armando You - Last Filed: 09/05/24 15:50> - General Chief Complaint: Back Pain/Injury Stated Complaint: NADAI,Back pain Time Seen by Provider: 09/05/24 14:05 - History of Present Illness Initial Comments: Quick Note: This is a 39-year-old female who presents to the emergency department for shortness of breath and back pain. States that this is the same shortness of breath and back pain she has been dealing with for months. She does not do breathing treatments at home. States that the back pain is causing pain down both of her legs and makes it hard to walk. Denies any new injuries or loss of bowel/bladder control or saddle anesthesia. (María Lepe) Dictation was produced using [employer] dictation software. please excuse any grammatical, word or spelling errors. Chief Complaint: 39-year-old female well-known to the emergency department presents to the emergency department for acute on chronic back pain History of Present Illness: Patient is a 39-year-old female she has multiple comorbidities including treated acute aortic dissection, seizure disorder, heart failure COPD liver disease. Patient also has chronic pain history of opiate use disorder. Patient presents to the emergency department for acute on chronic back pain. Patient has severe scoliosis states that her back aches from her cervical spine all are down to her lumbar spine. Denies any trauma. Denies any cough runny nose or sore throat. Denies any fever or constitutional symptoms. The ROS documented in this emergency department record has been reviewed and confirmed by me. Those systems with pertinent positive or negative responses have been documented in the HPI. All other systems are other negative and/or noncontributory. (Armando You) - Related Data Home Medications Medication Instructions Recorded Confirmed Budesonide-Formot 160-4.5 Mcg 2 puff INHALATION RT-BID 07/15/24 07/15/24 [Symbicort 160-4.5 Mcg Inhaler] Previous Rx's Medication Instructions Recorded Acetaminophen Tab [Tylenol] 650 mg PO Q6HR PRN tab 07/11/24 Albuterol Sulfate [Albuterol 2 puff INHALATION RT-Q6H PRN #1 07/11/24 Sulfate Hfa] each Pantoprazole [Protonix] 40 mg PO AC-BRKFST #30 tab 07/11/24 Warfarin [Coumadin] 7.5 mg PO HS #30 tab 07/11/24 predniSONE [Deltasone] 20 mg PO BID #8 tab 07/11/24 HYDROcodone/APAP 7.5-325MG [[place] 1 tab PO Q6HR PRN 3 Days #12 tab 07/15/24 7.5-325] Allergies Allergy/AdvReac Type Severity Reaction Status Date / Time Penicillins Allergy Rash/Hives Verified 09/05/24 14:06 chlordiazepoxide HCl AdvReac SEE COMMENT Verified 09/05/24 14:06 [From Librium] ketorolac [From Toradol] AdvReac ANXIETY Verified 09/05/24 14:06 morphine AdvReac Unknown Verified 09/05/24 14:06 prochlorperazine edisylate AdvReac PANIC Verified 09/05/24 14:06 [From Compazine] ATTACK prochlorperazine maleate AdvReac PANIC Verified 09/05/24 14:06 [From Compazine] ATTACK Review of Systems ROS Other: All systems not noted in ROS Statement are negative. <María Lepe - Last Filed: 09/05/24 14:11> ROS Other: All systems not noted in ROS Statement are negative. <Armando You - Last Filed: 09/05/24 15:50> ROS Statement: Those systems with pertinent positive or pertinent negative responses have been documented in the HPI. Past Medical History Past Medical History: Heart Failure, COPD, CVA/TIA, Liver Disease, Neurologic Disorder, Osteoarthritis (OA), Pneumonia, Seizure Disorder Additional Past Medical History / Comment(s): Stroke with residual right-sided weakness 2017, TIAs, marfan's syndrome, ArnoldChiari malformation, spontaneous pneumothorax x 21, scoliosis and pectus excavatum secondary to Marfan's, chronic back pain, bilateral leg pain, gastric ulcers, sinus infections, STATED HAS POOR CIRCULATION, viral meningitis, HEP C. 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 spleenectomy 2018, L upper lobectomy d/t pneumothoraxs. Past Anesthesia/Blood Transfusion Reactions: No Reported Reaction Past Psychological History: Anxiety Smoking Status: Current every day smoker Past Alcohol Use History: None Reported, Occasional Past Drug Use History: Marijuana, Methamphetamine, Prescription Drug Abuse - Past Family History Father Additional Family Medical History / Comment(s): Father is with history of AIDS. Mother Family Medical History: Diabetes Mellitus Additional Family Medical History / Comment(s): Mother at age 49 from liver cirrhosis secondary to alcohol abuse. Brother(s) Additional Family Medical History / Comment(s): Patient has one brother with no major medical problems. <María Lepe - Last Filed: 09/05/24 14:11> General Exam Limitations: no limitations <María Lepe - Last Filed: 09/05/24 14:11> <Armando You - Last Filed: 09/05/24 15:50> - General Exam Comments Initial Comments: Visual Physical Exam Vital signs reviewed General: Well-appearing, nontoxic, no acute distress. Head: Normocephalic, atraumatic Eyes: PERRLA, EOMI ENT: Airway patent Chest: Nonlabored breathing Skin: No visual rash, normal skin tone Neuro: Alert and oriented 3 Musculoskeletal: No gross abnormalities (María Lepe) PHYSICAL EXAM: General Impression: Alert and oriented x3, not in acute distress HEENT: Normocephalic atraumatic, extra-ocular movements intact, pupils equal and reactive to light bilaterally, mucous membranes moist. Cardiovascular: Heart regular rate and rhythm Chest: Able to complete full sentences, no retractions, no tachypnea, lungs clear to auscultation bilaterally Abdomen: abdomen soft, non-tender, non-distended, no organomegaly Musculoskeletal: Pulses present and equal in all extremities, no peripheral edema, severe kyphoscoliosis Motor: no focal deficits noted Neurological: CN II-XII grossly intact, no focal motor or sensory deficits noted Skin: Intact with no visualized rashes Psych: Normal affect and mood (Armando You) Course Vital Signs 09/05/24 09/05/24 09/05/24 14:06 15:20 15:22 Temperature 97.2 F L 98.8 F Pulse Rate 110 H 67 Respiratory 16 24 Rate Blood Pressure 126/67 O2 Sat by Pulse 94 L 88 L 93 L Oximetry 09/05/24 15:48 Temperature Pulse Rate Respiratory Rate Blood Pressure O2 Sat by Pulse 93 L Oximetry Medical Decision Making <María Lepe - Last Filed: 09/05/24 14:11> <Armando You - Last Filed: 09/05/24 15:50> - Medical Decision Making I performed the QuickNote portion of this chart. Signed María Lepe PA-C. (María Lepe) Was pt. sent in by a medical professional or institution (VERONICA Corona, DELIVERY TECHNICIAN, urgent care, hospital, or penitentiary...) When possible be specific @ -No Did you speak to anyone other than the patient for history (EMS, parent, family, police, friend...)? What history was obtained from this source @ -No Did you review nursing and triage notes (agree or disagree)? Why? @ -I reviewed and agree with nursing and triage notes Were old charts reviewed (outside hosp., previous admission, EMS record, old EKG, old radiological studies, urgent care reports/EKG's, penitentiary records)? Report findings @ -No old charts were reviewed Differential Diagnosis (chest pain, altered mental status, abdominal pain women, abdominal pain men, vaginal bleeding, musculoskeletal, weakness, fever, dyspnea, syncope, headache, dizziness, GI bleed, back pain, seizure, CVA, palpatations, mental health)? @ -Differential Back Pain: Strain, zoster, cauda equina syndrome, epidural abscess, vertebral osteomyelitis, discitis, fracture, subluxation, disc herniation, DJD, spinal stenosis, dissection, AAA, pancreatitis, peptic ulcer disease, pyelonephritis, kidney stone, this is not meant to be an all-inclusive list. EKG interpreted by me (3pts min.). @ -None done X-rays interpreted by me (1pt min.). @ -Chest x-ray shows no acute processes CT interpreted by me (1pt min.). @ -None done U/S interpreted by me (1pt. min.). @ -None done What testing was considered but not performed or refused? (CT, X-rays, U/S, labs)? Why? @ -None What meds were considered but not given or refused? Why? @ -None Was smoking cessation discussed for >3mins.? @ -No Were there social determinants of health that impacted care today? How? (Homelessness, low income, unemployed, alcoholism, drug addiction, transportation, low edu. Level, literacy, decrease access to med. care, halfway, rehab)? @ -Poor social situation. Was there de-escalation of care discussed even if they declined (Discuss DNR or withdrawal of care, Hospice)? DNR status @ -No What co-morbidities impacted this encounter? (DM, HTN, Smoking, COPD, CAD, Cancer, CVA, ARF, Chemo, Hep., AIDS, mental health diagnosis, sleep apnea, morbid obesity)? @ -Severe kyphoscoliosis Was patient admitted / discharged? Hospital course, mention meds given and route, prescriptions, significant lab abnormalities, going to OR and other pertinent info. @ -39-year-old female well-known to the emergency department for multiple agitations for multitude of complaints. Patient here today for total spinal pain. Denies any trauma. Patient has no red flag symptoms. Vital signs upon arrival are within acceptable limits. When patient was brought to fast-track she did have a reading of 88% she was placed briefly on 2 L nasal cannula. Nasal cannula oxygen was removed patient's oxygen levels were rechecked found to be 93%. States she feels at baseline. Patient given analgesic intramuscular injection. Patient discharged told to follow-up with her primary care doctor. Did you discuss the management of the patient with other professionals (professionals i.e. , PA, DELIVERY TECHNICIAN, lab, RT, psych nurse, social media job titles, steam press operator, teacher, aviation ordnance officer, leather case finisher)? Give summary @ -No Was critical care preformed (if so, how long)? @ -No Undiagnosed new problem with uncertain prognosis? @ -No Drug Therapy requiring intensive monitoring for toxicity (Heparin, Nitro, Insulin, Cardizem)? @ -No Were any procedures done? @ -No Diagnosis/symptom? Acute, or Chronic, or Acute on Chronic? Uncomplicated (without systemic symptoms) or Complicated (systemic symptoms)? @ -Acute on chronic back pain Side effects of treatment? @ -No Exacerbation, Progression, or Severe Exacerbation? @ -No Poses a threat to life or bodily function? How? (Chest pain, [place], [place], pneumonia, PE, COPD, DKA, ARF, appy, cholecystitis, CVA, Diverticulitis, Homicidal, Suicidal, threat to staff... and all critical care pts) @ -yes (Armando You) Disposition <María Lepe - Last Filed: 09/05/24 14:11> Is patient prescribed a controlled substance at d/c from ED?: No Time of Disposition: 15:50 <Armando You - Last Filed: 09/05/24 15:50> Clinical Impression: Back pain Disposition: HOME SELF-CARE Condition: Fair Instructions (If sedation given, give patient instructions): Acute Low Back Pain (ED) Referrals: None,Stated [Primary Care Provider] - 1-2 days
--- NOTE | 2024-09-05 14:41 | XR ---
EXAMINATION TYPE: XR chest 2V DATE OF EXAM: 09/05/2024 2:27 PM COMPARISON: 1124 CLINICAL INDICATION: Female, 39 years old with history of NADIA, TECHNIQUE: XR chest 2V view(s) obtained. FINDINGS: The heart size is normal. The pulmonary vasculature is normal. The lungs are clear there is hyperinflation and flattening of the diaphragms compatible with COPD. T here is increased AP diameter with kyphosis in the lower thoracic spine. Scoliosis is present IMPRESSION: 1. No acute pulmonary process. 2. COPD [facility], , 09/05/2024 2:39 PM
[2024-09-05] MEDS: HYDROmorphone 1 MG/ML 1 ML SYRINGE IM STA (15:50)
[2024-09-05 16:04] VITALS: BP 157/99; PULSE 102; RESP 18; TEMP 98.5
== END 2024-09-05 16:05 | disposition home or self-care (01) ==
LOC: EC 13:26
DX: M54.9 Dorsalgia, unspecified (principal); F17.200 Nicotine dependence, unspecified, uncomplicated; Z88.0 Allergy status to penicillin; Z88.1 Allergy status to other antibiotic agents; Z88.6 Allergy status to analgesic agent; Z88.8 Allergy status to other drugs, medicaments and biological substances
CPT/HCPCS: 71046; 99283; 96372; J1171

== ENCOUNTER 2024-09-09 19:29 | Emergency (ER) | payer OTHER ==
[2024-09-09 19:47] VITALS: RESP 18
[2024-09-09] MEDS: HYDROcodone/APAP 5-325MG 1 EACH TAB PO STA (19:53)
--- NOTE | 2024-09-09 19:54 | ED ---
General Adult HPI - General Chief complaint: Back Pain/Injury Stated complaint: Back/Leg Pain Time Seen by Provider: 09/09/24 19:46 Source: patient, EMS, RN notes reviewed, old records reviewed Mode of arrival: EMS Limitations: no limitations - History of Present Illness Initial comments: 39-year-old female presenting for evaluation of generalized pain complaints. Patient states she does not currently have a doctor and is not taking anything other than Tylenol for pain. Patient has a complex medical history including Marfan syndrome, chronic aortic dissection, previous aortic valve replacement, chronic pain secondary to significant past medical history. Patient states she is not currently using any illicit drugs. She states she is trying to find a primary care doctor and the pain doctor. No recent trauma or fall. Pain complaints are chronic in nature. - Related Data Home Medications Medication Instructions Recorded Confirmed Budesonide-Formot 160-4.5 Mcg 2 puff INHALATION RT-BID 07/15/24 07/15/24 [Symbicort 160-4.5 Mcg Inhaler] Previous Rx's Medication Instructions Recorded Acetaminophen Tab [Tylenol] 650 mg PO Q6HR PRN tab 07/11/24 Albuterol Sulfate [Albuterol 2 puff INHALATION RT-Q6H PRN #1 07/11/24 Sulfate Hfa] each Pantoprazole [Protonix] 40 mg PO AC-BRKFST #30 tab 07/11/24 Warfarin [Coumadin] 7.5 mg PO HS #30 tab 07/11/24 predniSONE [Deltasone] 20 mg PO BID #8 tab 07/11/24 HYDROcodone/APAP 7.5-325MG [[place] 1 tab PO Q6HR PRN 3 Days #12 tab 07/15/24 7.5-325] HYDROcodone/APAP 5-325MG [[place] 1 tab PO Q6HR PRN #12 tab 09/09/24 5-325] Allergies Allergy/AdvReac Type Severity Reaction Status Date / Time Penicillins Allergy Rash/Hives Verified 09/09/24 19:47 chlordiazepoxide HCl AdvReac SEE COMMENT Verified 09/09/24 19:47 [From Librium] ketorolac [From Toradol] AdvReac ANXIETY Verified 09/09/24 19:47 morphine AdvReac Unknown Verified 09/09/24 19:47 prochlorperazine edisylate AdvReac PANIC Verified 09/09/24 19:47 [From Compazine] ATTACK prochlorperazine maleate AdvReac PANIC Verified 09/09/24 19:47 [From Compazine] ATTACK Review of Systems ROS Statement: Those systems with pertinent positive or pertinent negative responses have been documented in the HPI. ROS Other: All systems not noted in ROS Statement are negative. Past Medical History Past Medical History: Heart Failure, COPD, CVA/TIA, Liver Disease, Neurologic Disorder, Osteoarthritis (OA), Pneumonia, Seizure Disorder Additional Past Medical History / Comment(s): Stroke with residual right-sided weakness 2017, TIAs, marfan's syndrome, ArnoldChiari malformation, spontaneous pneumothorax x 21, scoliosis and pectus excavatum secondary to Marfan's, chronic back pain, bilateral leg pain, gastric ulcers, sinus infections, STATED HAS POOR CIRCULATION, viral meningitis, HEP C. 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 spleenectomy 2018, L upper lobectomy d/t pneumothoraxs. Past Anesthesia/Blood Transfusion Reactions: No Reported Reaction Past Psychological History: Anxiety Smoking Status: Current every day smoker Past Alcohol Use History: None Reported Past Drug Use History: Marijuana, Methamphetamine, Prescription Drug Abuse - Past Family History Father Additional Family Medical History / Comment(s): Father is with history of AIDS. Mother Family Medical History: Diabetes Mellitus Additional Family Medical History / Comment(s): Mother at age 49 from liver cirrhosis secondary to alcohol abuse. Brother(s) Additional Family Medical History / Comment(s): Patient has one brother with no major medical problems. General Exam Limitations: no limitations General appearance: alert, cachectic Head exam: Present: atraumatic, normocephalic Eye exam: Present: normal appearance, PERRL Respiratory exam: Present: rhonchi. Absent: respiratory distress, wheezes Cardiovascular Exam: Present: regular rate, normal rhythm, systolic murmur Neurological exam: Present: alert. Absent: motor sensory deficit Skin exam: Present: warm, dry, intact Course Vital Signs 09/09/24 19:41 Temperature 97.5 F L Pulse Rate 95 Respiratory 18 Rate Blood Pressure 182/100 O2 Sat by Pulse 100 Oximetry Medical Decision Making - Medical Decision Making Was pt. sent in by a medical professional or institution (VERONICA Corona, RN INTERVENTIONAL, urgent care, hospital, or intermediate...) When possible be specific @ -No Did you speak to anyone other than the patient for history (EMS, parent, family, police, friend...)? What history was obtained from this source @ -No Did you review nursing and triage notes (agree or disagree)? Why? @ -I reviewed and agree with nursing and triage notes Were old charts reviewed (outside hosp., previous admission, EMS record, old EKG, old radiological studies, urgent care reports/EKG's, intermediate records)? Report findings @ -No old charts were reviewed Differential Diagnosis chronic pain, secondary to significant chronic debility. EKG interpreted by me (3pts min.). @ -As above X-rays interpreted by me (1pt min.). @ -None done CT interpreted by me (1pt min.). @ -None done U/S interpreted by me (1pt. min.). @ -None done What testing was considered but not performed or refused? (CT, X-rays, U/S, labs)? Why? @ -None What meds were considered but not given or refused? Why? @ -None Did you discuss the management of the patient with other professionals (pr ofessionals i.e. VERONICA Corona, RN INTERVENTIONAL, lab, RT, psych nurse, forensic social worker, electric motor repair supervisor, teacher, cavalry officer, director of casework department)? Give summary @ -No Was smoking cessation discussed for >3mins.? @ -No Was critical care preformed (if so, how long)? @ -No Were there social determinants of health that impacted care today? How? (Homelessness, low income, unemployed, alcoholism, drug addiction, transportation, low edu. Level, literacy, decrease access to med. care, nursing home, rehab)? @ -No Was there de-escalation of care discussed even if they declined (Discuss DNR or withdrawal of care, Hospice)? DNR status @ -No What co-morbidities impacted this encounter? (DM, HTN, Smoking, COPD, CAD, Cancer, CVA, ARF, Chemo, Hep., AIDS, mental health diagnosis, sleep apnea, morbid obesity)? @Marfan syndrome, chronic aortic dissection, significant past medical history. Was patient admitted / discharged? Hospital course, mention meds given and route, prescriptions, significant lab abnormalities, going to OR and other per tinent info. @ -39-year-old female with significant past medical history. Patient has previously been on hospice and does have chronic pain. She states she is trying to obtain a doctor who will prescribe pain medication. She states she was previously on morphine but did not like the way it made her feel. I will prescribe Quitman for this patient. She will attempt to find a primary care provider. Undiagnosed new problem with uncertain prognosis? @ -No Drug Therapy requiring intensive monitoring for toxicity (Heparin, Nitro, Insulin, Cardizem)? @ -No Were any procedures done? @ -No Diagnosis/symptom? @ -Chronic pain Acute, or Chronic, or Acute on Chronic? @ -Chronic pain Uncomplicated (without systemic symptoms) or Complicated (systemic symptoms)? @ -Default Side effects of treatment? @ -No Exacerbation, Progression, or Severe Exacerbation? @ -No Poses a threat to life or bodily function? How? (Chest pain, [place], [place], pneumonia, PE, COPD, DKA, ARF, appy, cholecystitis, CVA, Diverticulitis, Homicidal, Suicidal, threat to staff... and all critical care pts) @ -Yes, significant risk due to comorbidities. Disposition Clinical Impression: Marfan syndrome, Chronic pain Disposition: HOME SELF-CARE Condition: Fair Instructions (If sedation given, give patient instructions): Chronic Pain (ED) Prescriptions: HYDROcodone/APAP 5-325MG [Q[place]man 5-325] 1 tab PO Q6HR PRN #12 tab PRN Reason: Pain Is patient prescribed a controlled substance at d/c from ED?: No Referrals: None,Stated [Primary Care Provider] - 1-2 days [facility] [NON-STAFF] - 1-2 days Time of Disposition: 19:52
[2024-09-09 20:13] VITALS: BP 175/91; PULSE 91; TEMP 97.6
== END 2024-09-09 20:13 | disposition home or self-care (01) ==
LOC: EC 19:29
DX: G89.29 Other chronic pain (principal); Q87.40 Marfan syndrome, unspecified; F17.200 Nicotine dependence, unspecified, uncomplicated; Z86.73 Personal history of transient ischemic attack (TIA), and cerebral infarction without residual deficits; Z88.0 Allergy status to penicillin; Z88.5 Allergy status to narcotic agent; Z88.8 Allergy status to other drugs, medicaments and biological substances
CPT/HCPCS: 99283

== ENCOUNTER 2024-09-14 18:22 | Emergency (ER) | payer OTHER ==
--- NOTE | 2024-09-14 18:57 | ED ---
Back Pain HPI - General Source: patient, RN notes reviewed Mode of arrival: wheelchair Limitations: physical limitation - History of Present Illness MD Complaint: back pain Onset/Timin -: week(s) <Gilbert Ibrahim - Last Filed: 09/14/24 18:57> <Deanna Storey - Last Filed: 09/15/24 22:18> - General Stated Complaint: head pain Time Seen by Provider: 09/14/24 18:37 - History of Present Illness Initial Comments: Quick note: This is a well-known 32-year-old female presenting with back pain x 2 weeks. Patient endorses history of spinal cord issues with complete, constant spinal pain with pain radiating into the bilateral thighs. States pain is worse when standing. Endorses use of Tylenol and Tylenol PM with minimal relief. States she is unable to take NSAIDs due to use of Coumadin. (Gilbert Ibrahim) 39-year-old female presenting chief complaint of back pain. Patient has history of chronic back pain, she states that this feels identical to her chronic pain. Has no new features. No loss of bowel or bladder control or saddle paresthesia. No injury or trauma. She has been taking Tylenol as needed for pain. No fevers or chills. No nausea or vomiting. No abdominal pain chest pain or difficulty breathing. (Deanna Storey) - Related Data Home Medications Medication Instructions Recorded Confirmed Budesonide-Formot 160-4.5 Mcg 2 puff INHALATION RT-BID 07/15/24 07/15/24 [Symbicort 160-4.5 Mcg Inhaler] Previous Rx's Medication Instructions Recorded Acetaminophen Tab [Tylenol] 650 mg PO Q6HR PRN tab 07/11/24 Albuterol Sulfate [Albuterol 2 puff INHALATION RT-Q6H PRN #1 07/11/24 Sulfate Hfa] each Pantoprazole [Protonix] 40 mg PO AC-BRKFST #30 tab 07/11/24 Warfarin [Coumadin] 7.5 mg PO HS #30 tab 07/11/24 predniSONE [Deltasone] 20 mg PO BID #8 tab 07/11/24 HYDROcodone/APAP 7.5-325MG [[place] 1 tab PO Q6HR PRN 3 Days #12 tab 07/15/24 7.5-325] HYDROcodone/APAP 5-325MG [[place] 1 tab PO Q6HR PRN #12 tab 09/09/24 5-325] Allergies Allergy/AdvReac Type Severity Reaction Status Date / Time Penicillins Allergy Rash/Hives Verified 09/14/24 19:00 chlordiazepoxide HCl AdvReac SEE COMMENT Verified 09/14/24 19:00 [From Librium] ketorolac [From Toradol] AdvReac ANXIETY Verified 09/14/24 19:00 morphine AdvReac Unknown Verified 09/14/24 19:00 prochlorperazine edisylate AdvReac PANIC Verified 09/14/24 19:00 [From Compazine] ATTACK prochlorperazine maleate AdvReac PANIC Verified 09/14/24 19:00 [From Compazine] ATTACK Review of Systems ROS Other: All systems not noted in ROS Statement are negative. <Gilbert Ibrahim - Last Filed: 09/14/24 18:57> ROS Other: All systems not noted in ROS Statement are negative. <Deanna Storey - Last Filed: 09/15/24 22:18> ROS Statement: Those systems with pertinent positive or pertinent negative responses have been documented in the HPI. Past Medical History Past Medical History: Heart Failure, COPD, CVA/TIA, Liver Disease, Neurologic Disorder, Osteoarthritis (OA), Pneumonia, Seizure Disorder Additional Past Medical History / Comment(s): Stroke with residual right-sided weakness 2017, TIAs, marfan's syndrome, ArnoldChiari malformation, spontaneous pneumothorax x 21, scoliosis and pectus excavatum secondary to Marfan's, chronic back pain, bilateral leg pain, gastric ulcers, sinus infections, STATED HAS POOR CIRCULATION, viral meningitis, HEP C. 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 spleenectomy 2018, L upper lobectomy d/t pneumothoraxs. Past Anesthesia/Blood Transfusion Reactions: No Reported Reaction Past Psychological History: Anxiety Smoking Status: Current every day smoker Past Alcohol Use History: None Reported Past Drug Use History: Marijuana, Methamphetamine, Prescription Drug Abuse - Past Family History Father Additional Family Medical History / Comment(s): Father is with history of AIDS. Mother Family Medical History: Diabetes Mellitus Additional Family Medical History / Comment(s): Mother at age 49 from liver cirrhosis secondary to alcohol abuse. Brother(s) Additional Family Medical History / Comment(s): Patient has one brother with no major medical problems. <Gilbert Ibrahim - Last Filed: 09/14/24 18:57> General Exam <Gilbert Ibrahim - Last Filed: 09/14/24 18:57> Limitations: no limitations General appearance: alert, in no apparent distress Head exam: Present: atraumatic, normocephalic, normal inspection Eye exam: Present: normal appearance, EOMI Neck exam: Present: normal inspection. Absent: meningismus Respiratory exam: Absent: respiratory distress Cardiovascular Exam: Present: regular rate Back exam: Present: normal inspection, tenderness Neurological exam: Present: alert, oriented X3 Psychiatric exam: Present: normal affect, normal mood Skin exam: Present: warm, dry <Deanna Storey - Last Filed: 09/15/24 22:18> - General Exam Comments Initial Comments: Visual Physical Exam Vital signs reviewed General: Patient appears extremely emaciated, seated in wheelchair. Nontoxic, no acute distress. Head: Normocephalic, atraumatic Eyes: PERRLA, EOMI ENT: Airway patent Chest: Nonlabored breathing Skin: No visual rash, normal skin tone Neuro: Alert and oriented 3 Musculoskeletal: No gross abnormalities (Gilbert Ibrahim) Course Vital Signs 09/14/24 09/14/24 19:02 20:06 Temperature 98 F Pulse Rate 93 Respiratory 18 17 Rate Blood Pressure 127/81 128/95 O2 Sat by Pulse 97 Oximetry Medical Decision Making <Gilbert Ibrahim - Last Filed: 09/14/24 18:57> <Deanna Storey - Last Filed: 09/15/24 22:18> - Medical Decision Making I completed the quick note portion of this chart signed IDALMIS Meade (Gilbert Ibrahim) Was pt. sent in by a medical professional or institution (VERONICA Corona, TYPEWRITER ASSEMBLER, urgent care, hospital, or [facility]...) When possible be specific @ -No Did you speak to anyone other than the patient for history (EMS, parent, family, police, friend...)? What history was obtained from this source @ -No Did you review nursing and triage notes (agree or disagree)? Why? @ -I reviewed and agree with nursing and triage notes Were old charts reviewed (outside hosp., previous admission, EMS record, old EKG, old radiological studies, urgent care reports/EKG's, [facility] records)? Report findings @ -No old charts were reviewed Differential Diagnosis (chest pain, altered mental status, abdominal pain women, abdominal pain men, vaginal bleeding, weakness, fever, dyspnea, syncope, headache, dizziness, GI bleed, back pain, seizure, CVA, palpatations, mental health, musculoskeletal)? @ - MDM Differential Back Pain: Strain, zoster, cauda equina syndrome, epidural abscess, vertebral osteomyelitis, discitis, fracture, subluxation, disc herniation, DJD, spinal stenosis, dissection, AAA, pancreatitis, peptic ulcer disease, pyelonephritis, kidney stone this is not meant to be an all-inclusive list. EKG interpreted by me (3pts min.). @ -As above X-rays interpreted by me (1pt min.). @ -None done CT interpreted by me (1pt min.). @ -None done U/S interpreted by me (1pt. min.). @ -None done What testing was considered but not performed or refused? (CT, X-rays, U/S, labs)? Why? @ -None What meds were considered but not given or refused? Why? @ -None Did you discuss the management of the patient with other professionals (professionals i.e. VERONICA Corona, TYPEWRITER ASSEMBLER, lab, RT, psych nurse, manager social, filling carrier, teacher, facilities officer, mental health case manager)? Give summary @ -No Was smoking cessation discussed for >3mins.? @ -No Was critical care preformed (if so, how long)? @ -No Were there social determinants of health that impacted care today? How? (Homelessness, low income, unemployed, alcoholism, drug addiction, transportation, low edu. Level, literacy, decrease access to med. care, senior care, rehab)? @ -No Was there de-escalation of care discussed even if they declined (Discuss DNR or withdrawal of care, Hospice)? DNR status @ -No What co-morbidities impacted this encounter? (DM, HTN, Smoking, COPD, CAD, Cancer, CVA, ARF, Chemo, Hep., AIDS, mental health diagnosis, sleep apnea, morbid obesity)? @ -None Was patient admitted / discharged? Hospital course, mention meds given and route, prescriptions, significant lab abnormalities, going to OR and other pertinent info. @ -39-year-old female presenting with chief complaint of chronic back pain. No new injury or trauma. No red flag symptoms. Patient is treated with pain medication and her pain is improved. Discharged. Follow-up with PCP. Report back to ER with any new or worsening symptoms. Discussed return parameters and answered all questions. Patient conveyed verbal understanding and agreed to the plan. I discussed this case in detail with my attending Dr. Farah Undiagnosed new problem with uncertain prognosis? @ -No Drug Therapy requiring intensive monitoring for toxicity (Heparin, Nitro, Insulin, Cardizem)? @ -No Were any procedures done? @ -No Diagnosis/symptom? @ -Back pain Acute, or Chronic, or Acute on Chronic? @ -Acute on chronic Uncomplicated (without systemic symptoms) or Complicated (systemic symptoms)? @ -Uncomplicated Side effects of treatment? @ -No Exacerbation, Progression, or Severe Exacerbation? @ -No Poses a threat to life or bodily function? How? (Chest pain, [place], [place], pneumonia, PE, COPD, DKA, ARF, appy, cholecystitis, CVA, Diverticulitis, Homicidal, [place] icidal, threat to staff... and all critical care pts) @ -Unlikely (Deanna Storey) Disposition <Gilbert Ibrahim - Last Filed: 09/14/24 18:57> Is patient prescribed a controlled substance at d/c from ED?: No Time of Disposition: 19:55 <Deanna Storey - Last Filed: 09/15/24 22:18> Clinical Impression: Chronic back pain Disposition: HOME SELF-CARE Condition: Good Instructions (If sedation given, give patient instructions): Chronic Pain (ED) Additional Instructions: Follow-up with PCP and pain management. Report back to ER with any new or worse salvador symptoms. Referrals: None,Stated [Primary Care Provider] - 1-2 days Senia Thompson MD [STAFF PHYSICIAN] - 1-2 days Forms: Area PCPs
[2024-09-14 19:06] VITALS: PULSE 93; TEMP 98
[2024-09-14] MEDS: HYDROmorphone 1 MG/ML 1 ML SYRINGE IM STA (20:05)
[2024-09-14 20:06] VITALS: BP 128/95; RESP 17
== END 2024-09-14 20:22 | disposition home or self-care (01) ==
LOC: EC 18:22
DX: M54.9 Dorsalgia, unspecified (principal); G89.29 Other chronic pain; F17.200 Nicotine dependence, unspecified, uncomplicated; Z88.0 Allergy status to penicillin; Z88.5 Allergy status to narcotic agent; Z88.8 Allergy status to other drugs, medicaments and biological substances; Z88.6 Allergy status to analgesic agent
CPT/HCPCS: 99283; 96372; J1171

== ENCOUNTER 2024-10-02 09:11 | Emergency (ER) | payer OTHER ==
[2024-10-02 09:19] VITALS: BP 161/89; PULSE 80; RESP 18; TEMP 96.8
--- NOTE | 2024-10-02 09:40 | ED ---
Headache HPI - General Chief Complaint: Headache Stated Complaint: Migraine Time Seen by Provider: 10/02/24 09:13 Source: patient, EMS, RN notes reviewed Mode of arrival: EMS Limitations: no limitations - History of Present Illness Initial Comments: 39-year-old female presents emergency department complaint of headache. Patient has chronic pain, chronic headaches this is ongoing issues she denies any trauma denies any focal weakness denies any visual disturbance. Patient states is her typical migraine she only took Tylenol. Patient denies any fevers or chills no neck pain or stiffness no other complaints. - Related Data Home Medications Medication Instructions Recorded Confirmed Budesonide-Formot 160-4.5 Mcg 2 puff INHALATION RT-BID 07/15/24 07/15/24 [Symbicort 160-4.5 Mcg Inhaler] Previous Rx's Medication Instructions Recorded Acetaminophen Tab [Tylenol] 650 mg PO Q6HR PRN tab 07/11/24 Albuterol Sulfate [Albuterol 2 puff INHALATION RT-Q6H PRN #1 07/11/24 Sulfate Hfa] each Pantoprazole [Protonix] 40 mg PO AC-BRKFST #30 tab 07/11/24 Warfarin [Coumadin] 7.5 mg PO HS #30 tab 07/11/24 predniSONE [Deltasone] 20 mg PO BID #8 tab 07/11/24 HYDROcodone/APAP 7.5-325MG [[place] 1 tab PO Q6HR PRN 3 Days #12 tab 07/15/24 7.5-325] HYDROcodone/APAP 5-325MG [[place] 1 tab PO Q6HR PRN #12 tab 09/09/24 5-325] Warfarin [Coumadin] 5 mg PO DAILY #8 tab 09/30/24 Allergies Allergy/AdvReac Type Severity Reaction Status Date / Time Penicillins Allergy Rash/Hives Verified 09/30/24 12:58 chlordiazepoxide HCl AdvReac SEE COMMENT Verified 09/30/24 12:58 [From Librium] ketorolac [From Toradol] AdvReac ANXIETY Verified 09/30/24 12:58 morphine AdvReac Unknown Verified 09/30/24 12:58 prochlorperazine edisylate AdvReac PANIC Verified 09/30/24 12:58 [From Compazine] ATTACK prochlorperazine maleate AdvReac PANIC Verified 09/30/24 12:58 [From Compazine] ATTACK Review of Systems ROS Statement: Those systems with pertinent positive or pertinent negative responses have been documented in the HPI. ROS Other: All systems not noted in ROS Statement are negative. Past Medical History Past Medical History: Heart Failure, COPD, CVA/TIA, Liver Disease, Neurologic Disorder, Osteoarthritis (OA), Pneumonia, Seizure Disorder Additional Past Medical History / Comment(s): Stroke with residual right-sided weakness 2017, TIAs, marfan's syndrome, ArnoldChiari malformation, spontaneous pneumothorax x 21, scoliosis and pectus excavatum secondary to Marfan's, chronic back pain, bilateral leg pain, gastric ulcers, sinus infections, STATED HAS POOR CIRCULATION, viral meningitis, HEP C. 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 spleenectomy 2018, L upper lobectomy d/t pneumothoraxs. Past Anesthesia/Blood Transfusion Reactions: No Reported Reaction Past Psychological History: Anxiety Smoking Status: Current every day smoker Past Alcohol Use History: None Reported Past Drug Use History: Marijuana, Methamphetamine, Prescription Drug Abuse - Past Family History Father Additional Family Medical History / Comment(s): Father is with history of AIDS. Mother Family Medical History: Diabetes Mellitus Additional Family Medical History / Comment(s): Mother at age 49 from liver cirrhosis secondary to alcohol abuse. Brother(s) Additional Family Medical History / Comment(s): Patient has one brother with no major medical problems. General Exam Limitations: no limitations General appearance: alert, in no apparent distress Head exam: Present: atraumatic, normocephalic, normal inspection Neck exam: Present: normal inspection, full ROM. Absent: tenderness, meningismus, lymphadenopathy Respiratory exam: Present: normal lung sounds bilaterally. Absent: respiratory distress, wheezes, rales, rhonchi, stridor Cardiovascular Exam: Present: regular rate, normal rhythm, normal heart sounds. Absent: systolic murmur, diastolic murmur, rubs, gallop, clicks Neurological exam: Present: alert, oriented X3, CN II-XII intact, reflexes normal. Absent: motor sensory deficit Course Vital Signs 10/02/24 09:13 Temperature 96.8 F L Pulse Rate 80 Respiratory 18 Rate Blood Pressure 161/89 O2 Sat by Pulse 100 Oximetry Medical Decision Making - Medical Decision Making Was pt. sent in by a medical professional or institution (VERONICA Corona, SENIOR DESIGNER, urgent care, hospital, or custodial...) When possible be specific @ -No Did you speak to anyone other than the patient for history (EMS, parent, family, police, friend...)? What history was obtained from this source @ -No Did you review nursing and triage notes (agree or disagree)? Why? @ -I reviewed and agree with nursing and triage notes Were old charts reviewed (outside hosp., previous admission, EMS record, old EKG, old radiological studies, urgent care reports/EKG's, custodial records)? Report findings @ -No old charts were reviewed Differential Diagnosis (chest pain, altered mental status, abdominal pain women, abdominal pain men, vaginal bleeding, weakness, fever, dyspnea, syncope, headache, dizziness, GI bleed, back pain, seizure, CVA, palpatations, mental health, musculoskeletal)? @ -Differential Headache: Migraine, tension, cluster, carbon monoxide, central venous thrombosis, pension karma temporal arteritis, acute closure glaucoma, intercranial hemorrhage, mastoiditis, sinusitis, head injury, this is not meant to be an all-inclusive list. EKG interpreted by me (3pts min.). @None X-rays interpreted by me (1pt min.). @ -None done CT interpreted by me (1pt min.). @ -None done U/S interpreted by me (1pt. min.). @ -None done What testing was considered but not performed or refused? (CT, X-rays, U/S, labs)? Why? @ -None What meds were considered but not given or refused? Why? @ -None Did you discuss the management of the patient with other professionals (professionals i.e. VERONICA Corona, SENIOR DESIGNER, lab, RT, psych nurse, social work administrator, cash office worker, teacher, aoc director combat operations officer, spring encaser)? Give summary @ -No Was smoking cessation discussed for >3mins.? @ -No Was critical care preformed (if so, how long)? @ -No Were there social determinants of health that impacted care today? How? (Homelessness, low income, unemployed, alcoholism, drug addiction, transport ation, low edu. Level, literacy, decrease access to med. care, senior living, rehab)? @ -No Was there de-escalation of care discussed even if they declined (Discuss DNR or withdrawal of care, Hospice)? DNR status @ -No What co-morbidities impacted this encounter? (DM, HTN, Smoking, COPD, CAD, Cancer, CVA, ARF, Chemo, Hep., AIDS, mental health diagnosis, sleep apnea, morbid obesity)? @ -None Was patient admitted / discharged? Hospital course, mention meds given and route, prescriptions, significant lab abnormalities, going to OR and other pertinent info. @ -Discharge patient has chronic pain, chronic headaches. This is an acute headache. Patient has no neurological deficits. Patient was discharged in stable condition return par discussed. Undiagnosed new problem with uncertain prognosis? @ -No Drug Therapy requiring intensive monitoring for toxicity (Heparin, Nitro, Insulin, Cardizem)? @ -No Were any procedures done? @ -No Diagnosis/symptom? @ -Headache Acute, or Chronic, or Acute on Chronic? @ -Acute on chronic Uncomplicated (without systemic symptoms) or Complicated (systemic symptoms)? @ -Uncomplicated Side effects of treatment? @ -No Exacerbation, Progression, or Severe Exacerbation? @ -No Poses a threat to life or bodily function? How? (Chest pain, [place], [place], pneumonia, PE, COPD, DKA, ARF, appy, cholecystitis, CVA, Diverticulitis, Homicidal, Suicidal, threat to staff... and all critical care pts) @ -No Disposition Clinical Impression: Headache Disposition: HOME SELF-CARE Condition: Stable Instructions (If sedation given, give patient instructions): Acute Headache (ED) Additional Instructions: Please return to the Emergency Department if symptoms worsen or any other concerns. Is patient prescribed a controlled substance at d/c from ED?: No Referrals: None,Stated [Primary Care Provider] - 1-2 days Time of Disposition: 09:40
[2024-10-02] MEDS: droPERidol 2.5 MG/ML VIAL IM ONE (09:50)
== END 2024-10-02 09:56 | disposition home or self-care (01) ==
LOC: EC 09:11
DX: G89.29 Other chronic pain (principal); G43.909 Migraine, unspecified, not intractable, without status migrainosus; F17.200 Nicotine dependence, unspecified, uncomplicated; Z88.0 Allergy status to penicillin; Z88.5 Allergy status to narcotic agent; Z88.8 Allergy status to other drugs, medicaments and biological substances; Z88.6 Allergy status to analgesic agent
CPT/HCPCS: 99283; 96372; J1790

== ENCOUNTER 2024-11-01 09:29 | Emergency (ER) | payer OTHER ==
[2024-11-01 09:42] VITALS: BP 81/54; PULSE 68; RESP 16; TEMP 97.8
--- NOTE | 2024-11-01 09:57 | ED ---
General Adult HPI - General Chief complaint: Headache Stated complaint: headache Time Seen by Provider: 11/01/24 09:36 Source: EMS, RN notes reviewed Mode of arrival: EMS Limitations: no limitations - History of Present Illness Initial comments: 39-year-old female presents to the emergency department for evaluation of headache. She states that this started 2 days ago. She notes that she has had headaches like this in the past. She notes that is radiating down her back. She admits to taking Tylenol this morning. Denies recent fever, chills. Denies urinary retention, bladder or bowel dysfunction. - Related Data Home Medications Medication Instructions Recorded Confirmed Budesonide-Formot 160-4.5 Mcg 2 puff INHALATION RT-BID 07/15/24 07/15/24 [Symbicort 160-4.5 Mcg Inhaler] Previous Rx's Medication Instructions Recorded Acetaminophen Tab [Tylenol] 650 mg PO Q6HR PRN tab 07/11/24 Albuterol Sulfate [Albuterol 2 puff INHALATION RT-Q6H PRN #1 07/11/24 Sulfate Hfa] each Pantoprazole [Protonix] 40 mg PO AC-BRKFST #30 tab 07/11/24 Warfarin [Coumadin] 7.5 mg PO HS #30 tab 07/11/24 predniSONE [Deltasone] 20 mg PO BID #8 tab 07/11/24 HYDROcodone/APAP 7.5-325MG [[place] 1 tab PO Q6HR PRN 3 Days #12 tab 07/15/24 7.5-325] HYDROcodone/APAP 5-325MG [[place] 1 tab PO Q6HR PRN #12 tab 09/09/24 5-325] Warfarin [Coumadin] 5 mg PO DAILY #8 tab 09/30/24 Allergies Allergy/AdvReac Type Severity Reaction Status Date / Time Penicillins Allergy Rash/Hives Verified 11/01/24 09:36 chlordiazepoxide HCl AdvReac SEE COMMENT Verified 11/01/24 09:36 [From Librium] ketorolac [From Toradol] AdvReac ANXIETY Verified 11/01/24 09:36 morphine AdvReac Unknown Verified 11/01/24 09:36 prochlorperazine edisylate AdvReac PANIC Verified 11/01/24 09:36 [From Compazine] ATTACK prochlorperazine maleate AdvReac PANIC Verified 11/01/24 09:36 [From Compazine] ATTACK Review of Systems ROS Statement: Those systems with pertinent positive or pertinent negative responses have been documented in the HPI. ROS Other: All systems not noted in ROS Statement are negative. Past Medical History Past Medical History: Heart Failure, COPD, CVA/TIA, Liver Disease, Neurologic Disorder, Osteoarthritis (OA), Pneumonia, Seizure Disorder Additional Past Medical History / Comment(s): Stroke with residual right-sided weakness 2017, TIAs, marfan's syndrome, ArnoldChiari malformation, spontaneous pneumothorax x 21, scoliosis and pectus excavatum secondary to Marfan's, chronic back pain, bilateral leg pain, gastric ulcers, sinus infections, STATED HAS POOR CIRCULATION, viral meningitis, HEP C. 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 spleenectomy 2018, L upper lobectomy d/t pneumothoraxs. Past Anesthesia/Blood Transfusion Reactions: No Reported Reaction Past Psychological History: Anxiety Smoking Status: Current every day smoker Past Alcohol Use History: None Reported Past Drug Use History: Marijuana, Methamphetamine, Prescription Drug Abuse - Past Family History Father Additional Family Medical History / Comment(s): Father is with history of AIDS. Mother Family Medical History: Diabetes Mellitus Additional Family Medical History / Comment(s): Mother at age 49 from liver cirrhosis secondary to alcohol abuse. Brother(s) Additional Family Medical History / Comment(s): Patient has one brother with no major medical problems. General Exam Limitations: no limitations General appearance: alert, in no apparent distress Head exam: Present: atraumatic, normocephalic, normal inspection Eye exam: Present: normal appearance, PERRL, EOMI. Absent: scleral icterus, conjunctival injection, periorbital swelling Respiratory exam: Present: wheezes. Absent: respiratory distress, rales, rhonchi, stridor Cardiovascular Exam: Present: regular rate, normal rhythm, normal heart sounds. Absent: systolic murmur, diastolic murmur, rubs, gallop, clicks GI/Abdominal exam: Present: soft. Absent: distended, tenderness, guarding, rebound, rigid Extremities exam: Present: normal inspection, full ROM, normal capillary refill. Absent: tenderness, pedal edema, joint swelling, calf tenderness Neurological exam: Present: alert, oriented X3 Psychiatric exam: Present: normal affect, normal mood Course Vital Signs 11/01/24 09:32 Temperature 97.8 F Pulse Rate 68 Respiratory 16 Rate Blood Pressure 81/54 O2 Sat by Pulse 98 Oximetry Medical Decision Making - Medical Decision Making Was pt. sent in by a medical professional or institution (, PA, [employer], urgent care, hospital, or half-way...) When possible be specific @ -No Did you speak to anyone other than the patient for history (EMS, parent, family, police, friend...)? What history was obtained from this source @ -No Did you review nursing and triage notes (agree or disagree)? Why? @ -I reviewed and agree with nursing and triage notes Were old charts reviewed (outside hosp., previous admission, EMS record, old EKG, old radiological studies, urgent care reports/EKG's, half-way records)? Report findings @ -No old charts were reviewed Differential Diagnosis (chest pain, altered mental status, abdominal pain women, abdominal pain men, vaginal bleeding, weakness, fever, dyspnea, syncope, headache, dizziness, GI bleed, back pain, seizure, CVA, palpatations, mental health, musculoskeletal)? @ -Differential Headache: Migraine, tension, cluster, carbon monoxide, central venous thrombosis, pension karma temporal arteritis, acute closure glaucoma, intercranial hemorrhage, mastoiditis, sinusitis, head injury, this is not meant to be an all-inclusive list. EKG interpreted by me (3pts min.). @ -None X-rays interpreted by me (1pt min.). @ -None done CT interpreted by me (1pt min.). @ -None done U/S interpreted by me (1pt. min.). @ -None done What testing was considered but not performed or refused? (CT, X-rays, U/S, labs)? Why? @ -None What meds were considered but not given or refused? Why? @ -None Did you discuss the management of the patient with other professionals (professionals i.e. , PA, [employer] JUSTICE [employer]IST, lab, RT, psych nurse, community mental health social worker, real estate director, teacher, conservation enforcement officer, immigration case manager)? Give summary @ -No Was smoking cessation discussed for >3mins.? @ -No Was critical care preformed (if so, how long)? @ -No Were there social determinants of health that impacted care today? How? (Homelessness, low income, unemployed, alcoholism, drug addiction, transportation, low edu. Level, literacy, decrease access to med. care, alf, rehab)? @ -No Was there de-escalation of care discussed even if they declined (Discuss DNR or withdrawal of care, Hospice)? DNR status @ -No What co-morbidities impacted this encounter? (DM, HTN, Smoking, COPD, CAD, Cancer, CVA, ARF, Chemo, Hep., AIDS, mental health diagnosis, sleep apnea, morbid obesity)? @ -None Was patient admitted / discharged? Hospital course, mention meds given and route, prescriptions, significant lab abnormalities, going to OR and other pertinent info. @ -Discharge. Patient presented emergency department for evaluation of headache. Patient states that this has been going on for 2 days. She notes having headaches across the past. Denies worst headache of her life. She does report some back pain as well. Denies any red flag symptoms. Patient provided medication for pain control in the ED. She will be discharged home. She is understanding agreeable plan. She left of discharge. Case discussed with Dr. Casillas. Undiagnosed new problem with uncertain prognosis? @ -No Drug Therapy requiring intensive monitoring for toxicity (Heparin, Nitro, Insulin, Cardizem)? @ -No Were any procedures done? @ -No Diagnosis/symptom? @ -Headache Acute, or Chronic, or Acute on Chronic? @ -Acute Uncomplicated (without systemic symptoms) or Complicated (systemic symptoms)? @ -Uncomplicated Side effects of treatment? @ -No Exacerbation, Progression, or Severe Exacerbation? @ -No Poses a threat to life or bodily function? How? (Chest pain, [place], [place], pneumonia, PE, COPD, DKA, ARF, appy, cholecystitis, CVA, Diverticulitis, Homicidal, Suicidal, threat to staff... and all critical care pts) @ -No Disposition Clinical Impression: Headache Disposition: HOME SELF-CARE Condition: Stable Instructions (If sedation given, give patient instructions): Acute Headache (ED) Is patient prescribed a controlled substance at d/c from ED?: No Referrals: Natividad Rios MD [Primary Care Provider] - 1-2 days
[2024-11-01] MEDS: droPERidol 5 MG/2 ML VIAL IM ONE (10:38)
[2024-11-01] MEDS: KETOROLAC 15 MG/ML 1 ML VIAL IM STA (11:02)
== END 2024-11-01 11:05 | disposition home or self-care (01) ==
LOC: EC 09:29
DX: R51.9 Headache, unspecified (principal); F17.200 Nicotine dependence, unspecified, uncomplicated; Z88.0 Allergy status to penicillin; Z88.5 Allergy status to narcotic agent; Z88.8 Allergy status to other drugs, medicaments and biological substances
CPT/HCPCS: 99284; 96372; J1885

== ENCOUNTER 2024-12-22 09:38 | Emergency (ER) | payer OTHER ==
--- NOTE | 2024-12-22 09:52 | ED ---
General Adult HPI - General Stated complaint: Headache, back pain Time Seen by Provider: 12/22/24 09:39 Source: patient, EMS, RN notes reviewed Mode of arrival: EMS Limitations: physical limitation - History of Present Illness Initial comments: 39-year-old female presents emergency department for chief complaint of chronic pain headache. Patient is well-known emergency department with significant past medical history. Patient has not tried anything for her headache. Patient states that she also ran out of her Coumadin last night. Patient denies any new symptoms patient offers no complaints. - Related Data Home Medications Medication Instructions Recorded Confirmed Budesonide-Formot 160-4.5 Mcg 2 puff INHALATION RT-BID 07/15/24 07/15/24 [Symbicort 160-4.5 Mcg Inhaler] Previous Rx's Medication Instructions Recorded Acetaminophen Tab [Tylenol] 650 mg PO Q6HR PRN tab 07/11/24 Albuterol Sulfate [Albuterol 2 puff INHALATION RT-Q6H PRN #1 07/11/24 Sulfate Hfa] each Pantoprazole [Protonix] 40 mg PO AC-BRKFST #30 tab 07/11/24 predniSONE [Deltasone] 20 mg PO BID #8 tab 07/11/24 HYDROcodone/APAP 7.5-325MG [[place] 1 tab PO Q6HR PRN 3 Days #12 tab 07/15/24 7.5-325] HYDROcodone/APAP 5-325MG [[place] 1 tab PO Q6HR PRN #12 tab 09/09/24 5-325] Warfarin [Coumadin] 5 mg PO DAILY #8 tab 09/30/24 Warfarin [Coumadin] 7.5 mg PO HS #30 tab 12/22/24 Allergies Allergy/AdvReac Type Severity Reaction Status Date / Time Penicillins Allergy Rash/Hives Verified 12/22/24 09:58 chlordiazepoxide HCl AdvReac SEE COMMENT Verified 12/22/24 09:58 [From Librium] ketorolac [From Toradol] AdvReac ANXIETY Verified 12/22/24 09:58 morphine AdvReac Unknown Verified 12/22/24 09:58 prochlorperazine edisylate AdvReac PANIC Verified 12/22/24 09:58 [From Compazine] ATTACK prochlorperazine maleate AdvReac PANIC Verified 12/22/24 09:58 [From Compazine] ATTACK Review of Systems ROS Statement: Those systems with pertinent positive or pertinent negative responses have been documented in the HPI. ROS Other: All systems not noted in ROS Statement are negative. Past Medical History Past Medical History: Heart Failure, COPD, CVA/TIA, Liver Disease, Neurologic Disorder, Osteoarthritis (OA), Pneumonia, Seizure Disorder Additional Past Medical History / Comment(s): Stroke with residual right-sided weakness 2017, TIAs, marfan's syndrome, ArnoldChiari malformation, spontaneous pneumothorax x 21, scoliosis and pectus excavatum secondary to Marfan's, chronic back pain, bilateral leg pain, gastric ulcers, sinus infections, STATED HAS POOR CIRCULATION, viral meningitis, HEP C. 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 spleenectomy 2018, L upper lobectomy d/t pneumothoraxs. Past Anesthesia/Blood Transfusion Reactions: No Reported Reaction Past Psychological History: Anxiety Smoking Status: Current every day smoker Past Alcohol Use History: None Reported Past Drug Use History: Marijuana, Methamphetamine, Prescription Drug Abuse - Past Family History Father Additional Family Medical History / Comment(s): Father is with history of AIDS. Mother Family Medical History: Diabetes Mellitus Additional Family Medical History / Comment(s): Mother at age 49 from liver cirrhosis secondary to alcohol abuse. Brother(s) Additional Family Medical History / Comment(s): Patient has one brother with no major medical problems. General Exam Limitations: no limitations General appearance: alert, in no apparent distress Head exam: Present: atraumatic, normocephalic, normal inspection Respiratory exam: Present: normal lung sounds bilaterally. Absent: respiratory distress, wheezes, rales, rhonchi, stridor Cardiovascular Exam: Present: regular rate, normal rhythm, normal heart sounds, systolic murmur. Absent: diastolic murmur, rubs, gallop, clicks GI/Abdominal exam: Present: soft, normal bowel sounds. Absent: distended, tenderness, guarding, rebound, rigid Neurological exam: Present: alert, oriented X3, CN II-XII intact, reflexes normal. Absent: motor sensory deficit Course Vital Signs 12/22/24 12/22/24 09:50 10:31 Temperature 98.4 F 98.7 F Pulse Rate 82 80 Respiratory 16 16 Rate Blood Pressure 99/52 100/53 O2 Sat by Pulse 97 97 Oximetry Medical Decision Making - Medical Decision Making Was pt. sent in by a medical professional or institution (, [facility], [employer], urgent care, hospital, or assisted...) When possible be specific @ -No Did you speak to anyone other than the patient for history (EMS, parent, family, police, friend...)? What history was obtained from this source @ -No Did you review nursing and triage notes (agree or disagree)? Why? @ -I reviewed and agree with nursing and triage notes Were old charts reviewed (outside hosp., previous admission, EMS record, old EKG, old radiological studies, urgent care reports/EKG's, assisted records)? Report findings @ -No old charts were reviewed Differential Diagnosis (chest pain, altered mental status, abdominal pain women, abdominal pain men, vaginal bleeding, weakness, fever, dyspnea, syncope, headache, dizziness, GI bleed, back pain, seizure, CVA, palpatations, mental health, musculoskeletal)? @ -Differential Back Pain: Strain, zoster, cauda equina syndrome, epidural abscess, vertebral osteomyelitis, discitis, fracture, subluxation, disc herniation, DJD, spinal stenosis, dissection, AAA, pancreatitis, peptic ulcer disease, pyelonephritis, kidney stone, this is not meant to be an all-inclusive list. EKG interpreted by me (3pts min.). @ -None X-rays interpreted by me (1pt min.). @ -None done CT interpreted by me (1pt min.). @ -None done U/S interpreted by me (1pt. min.). @ -None done What testing was considered but not performed or refused? (CT, X-rays, U/S, labs)? Why? @ -None What meds were considered but not given or refused? Why? @ -None Did you discuss the management of the patient with other professionals (professionals i.e. , PA, [employer], lab, RT, psych nurse, social services designee, genetic coordinator, teacher, protocol officer, complex case manager)? Give summary @ -No Was smoking cessation discussed for >3mins.? @ -No Was critical care preformed (if so, how long)? @ -No Were there social determinants of health that impacted care today? How? (Homelessness, low income, unemployed, alcoholism, drug addiction, transportation, low edu. Level, literacy, decrease access to med. care, retirement, rehab)? @ -No Was there de-escalation of care discussed even if they declined (Discuss DNR or withdrawal of care, Hospice)? DNR status @ -No What co-morbidities impacted this encounter? (DM, HTN, Smoking, COPD, CAD, Cancer, CVA, ARF, Chemo, Hep., AIDS, mental health diagnosis, sleep apnea, morbid obesity)? @ -None Was patient admitted / discharged? Hospital course, mention meds given and route, prescriptions, significant lab abnormalities, going to OR and other pertinent info. @ -Discharge patient has no acute symptoms patient symptoms are chronic in nature. Patient logically intact. Patient given refill of her warfarin. Undiagnosed new problem with uncertain prognosis? @ -No Drug Therapy requiring intensive monitoring for toxicity (Heparin, Nitro, Insulin, Cardizem)? @ -No Were any procedures done? @ -No Diagnosis/symptom? @ -Medication refill, headache, chronic pain Acute, or Chronic, or Acute on Chronic? @ -Acute Uncomplicated (without systemic symptoms) or Complicated (systemic symptoms)? @ -Uncomplicated Side effects of treatment? @ -No Exacerbation, Progression, or Severe Exacerbation? @ -No Poses a threat to life or bodily function? How? (Chest pain, [place], [place], pneumonia, PE, COPD, DKA, ARF, appy, cholecystitis, CVA, Diverticulitis, Homicidal, Suicidal, threat to staff... and all critical care pts) @ -No Disposition Clinical Impression: Chronic back pain, Headache, Medication refill Disposition: HOME SELF-CARE Condition: Stable Instructions (If sedation given, give patient instructions): Acute Headache (ED) Additional Instructions: Please return to the Emergency Department if symptoms worsen or any other concerns. Prescriptions: Warfarin [Coumadin] 7.5 mg PO HS #30 tab Is patient prescribed a controlled substance at d/c from ED?: No Referrals: Natividad Rios MD [Primary Care Provider] - 1-2 days Time of Disposition: 09:52
[2024-12-22] MEDS: BUTALB/APAP/CAFF 50-325-40MG TAB PO STA (10:05)
[2024-12-22] MEDS: WARFARIN 5 MG TAB PO STA ×2 (10:06→10:07)
[2024-12-22 10:07] VITALS: RESP 16
[2024-12-22 10:32] VITALS: BP 100/53; PULSE 80; TEMP 98.7
== END 2024-12-22 10:42 | disposition home or self-care (01) ==
LOC: EC 09:38
DX: G89.29 Other chronic pain (principal); M54.9 Dorsalgia, unspecified; R51.9 Headache, unspecified; Z76.0 Encounter for issue of repeat prescription; F17.200 Nicotine dependence, unspecified, uncomplicated; Z88.0 Allergy status to penicillin; Z88.5 Allergy status to narcotic agent; Z88.8 Allergy status to other drugs, medicaments and biological substances; Z86.73 Personal history of transient ischemic attack (TIA), and cerebral infarction without residual deficits
CPT/HCPCS: 99284

== ENCOUNTER 2024-12-28 18:23 | Inpatient (IN) | payer OTHER ==
--- NOTE | 2024-12-28 18:44 | ED ---
General Adult HPI - General Chief complaint: Chest Pain Stated complaint: chest pain Time Seen by Provider: 12/28/24 18:26 Source: patient, EMS, RN notes reviewed Mode of arrival: EMS Limitations: no limitations - History of Present Illness Initial comments: Patient is a 39-year-old female present to the emergency department with concerns with chest discomfort. Onset of symptoms was this morning. Patient does have history of chronic chest discomfort and used to have this daily however now she only gets it a few times per year. Patient has pressure in her chest without radiation. No dyspnea, nausea, or diaphoresis. Patient does have history of a leaky heart valve. Patient also has chronic thoracic dissection - Related Data Home Medications Medication Instructions Recorded Confirmed Warfarin [Coumadin] 7.5 mg PO DAILY 12/28/24 12/28/24 Allergies Allergy/AdvReac Type Severity Reaction Status Date / Time Penicillins Allergy Rash/Hives Verified 12/28/24 19:53 chlordiazepoxide HCl AdvReac SEE COMMENT Verified 12/28/24 19:53 [From Librium] ketorolac [From Toradol] AdvReac ANXIETY Verified 12/28/24 19:53 morphine AdvReac Unknown Verified 12/28/24 19:53 prochlorperazine edisylate AdvReac PANIC Verified 12/28/24 19:53 [From Compazine] ATTACK prochlorperazine maleate AdvReac PANIC Verified 12/28/24 19:53 [From Compazine] ATTACK Review of Systems ROS Statement: Those systems with pertinent positive or pertinent negative responses have been documented in the HPI. ROS Other: All systems not noted in ROS Statement are negative. Constitutional: Denies: fever Eyes: Denies: eye pain ENT: Denies: ear pain Respiratory: Denies: cough, dyspnea Cardiovascular: Reports: as per HPI, chest pain Endocrine: Denies: fatigue Gastrointestinal: Denies: abdominal pain Skin: Denies: rash Neurological: Denies: weakness Past Medical History Past Medical History: Heart Failure, COPD, CVA/TIA, Liver Disease, Neurologic Disorder, Osteoarthritis (OA), Pneumonia, Seizure Disorder Additional Past Medical History / Comment(s): Stroke with residual right-sided weakness 2017, TIAs, marfan's syndrome, ArnoldChiari malformation, spontaneous pneumothorax x 21, scoliosis and pectus excavatum secondary to Marfan's, chronic back pain, bilateral leg pain, gastric ulcers, sinus infections, STATED HAS POOR CIRCULATION, viral meningitis, HEP C. 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 spleenectomy 2018, L upper lobectomy d/t pneumothoraxs. Past Anesthesia/Blood Transfusion Reactions: No Reported Reaction Past Psychological History: Anxiety Smoking Status: Current every day smoker Past Alcohol Use History: None Reported Past Drug Use History: Marijuana, Methamphetamine, Prescription Drug Abuse - Past Family History Father Additional Family Medical History / Comment(s): Father is with history of AIDS. Mother Family Medical History: Diabetes Mellitus Additional Family Medical History / Comment(s): Mother at age 49 from liver cirrhosis secondary to alcohol abuse. Brother(s) Additional Family Medical History / Comment(s): Patient has one brother with no major medical problems. General Exam Limitations: no limitations General appearance: alert, in no apparent distress, other (Marfan like body habitus) Head exam: Present: normocephalic Eye exam: Present: normal appearance Neck exam: Present: normal inspection Respiratory exam: Present: normal lung sounds bilaterally. Absent: chest wall tenderness Cardiovascular Exam: Present: regular rate, normal rhythm, systolic murmur Expanded Peripheral pulses: 2+: Radial (R), Radial (L), Dorsalis Pedis (R), Dorsalis Pedis (L) GI/Abdominal exam: Present: soft. Absent: tenderness Extremities exam: Present: normal inspection. Absent: pedal edema, calf tenderness Neurological exam: Present: alert Psychiatric exam: Present: normal affect, normal mood Skin exam: Present: normal color Course Vital Signs 12/28/24 12/28/24 12/28/24 18:29 18:31 19:00 Temperature 98.4 F Pulse Rate 94 101 H 101 H Respiratory 20 16 15 Rate Blood Pressure 162/93 152/76 O2 Sat by Pulse 95 98 98 Oximetry EKG Findings - EKG Results: EKG: interpreted by ERMD (Irregular rhythm. Left axis. Lateral ST depression. Inferior Q waves. Multiple previous EKGs reviewed including 07/15/2024) Medical Decision Making - Medical Decision Making Was pt. sent in by a medical professional or institution (VERONICA Corona, LIBRARY TECHNICIAN, urgent care, hospital, or [facility]...) When possible be specific @ -No Did you speak to anyone other than the patient for history (EMS, parent, family, police, friend...)? What history was obtained from this source @ -No Did you review nursing and triage notes (agree or disagree)? Why? @ -I reviewed and agree with nursing and triage notes Were old charts reviewed (outside hosp., previous admission, EMS record, old EKG, old radiological studies, urgent care reports/EKG's, [facility] records)? Report findings @ -Multiple previous admissions and CT scan reviewed Differential Diagnosis (chest pain, altered mental status, abdominal pain women, abdominal pain men, vaginal bleeding, weakness, fever, dyspnea, syncope, headache, dizziness, GI bleed, back pain, seizure, CVA, palpatations, mental health, musculoskeletal)? @ -Differential Chest Pain: Stable Angina, Unstable Angina, STEMI, NSTEMI Aortic Dissection, Pneumothorax, Musculoskeletal, Esophageal Spasm GERD, Cholecystitis, Pancreatitis, Zoster, this is not meant to be an all-inclusive list. EKG interpreted by me (3pts min.). @ -As above X-rays interpreted by me (1pt min.). @ -Chest x-ray shows enlarged aortic arch CT interpreted by me (1pt min.). @ -CT scan shows chronic dissection of the aorta and aneurysm. 6.4 cm proximal aortic arch versus previous 5.8. Abdominal shows larger false lumen. U/S interpreted by me (1pt. min.). @ -None done What testing was considered but not performed or refused? (CT, X-rays, U/S, labs)? Why? @ -None What meds were considered but not given or refused? Why? @ -None Did you discuss the management of the patient with other professionals (professionals i.e. VERONICA Corona, LIBRARY TECHNICIAN, lab, RT, psych nurse, manager social media, crib tender, teacher, mortgage loan officer originator, rehabilitation case coordinator)? Give summary @ -Case discussed with Dr. Croft who will admit for medical care pending CT. Case discussed with Dr. Myrna Velasquez who recommends urgent consult with cardiothoracic surgery regarding proximal aortic arch. Case was discussed in detail with Dr. Aguilar who did review films. He states since patient refuses transfer to [facility] and states she is not a surgical candidate she can stay here with blood pressure control and decrease her INR. He agrees vitamin K 2 mg IV x 1. Patient states she is on no medication for her blood pressure. Was smoking cessation discussed for >3mins.? @ -No Was critical care preformed (if so, how long)? @ -40 minutes critical care time Were there social determinants of health that impacted care today? How? (Homelessness, low income, unemployed, alcoholism, drug addiction, transportation, low edu. Level, literacy, decrease access to med. care, long-term, rehab)? @ -No Was there de-escalation of care discussed even if they declined (Discuss DNR or withdrawal of care, Hospice)? DNR status @ -No What co-morbidities impacted this encounter? (DM, HTN, Smoking, COPD, CAD, Cancer, CVA, ARF, Chemo, Hep., AIDS, mental health diagnosis, sleep apnea, morbid obesity)? @ -History of chronic chest pain. History of Marfan's. History of aortic aneurysm and dissection Was patient admitted / discharged? Hospital course, mention meds given and route, prescriptions, significant lab abnormalities, going to OR and other pertinent info. @ -Patient presents with chest pain. Patient does have Q waves on her EKG with troponin of 0.3. CT scan of the chest shows chronic aneurysm and dissection. Increasing size of proximal aortic arch and a larger false lumen of the abdominal aorta. After discussion with specialist patient will be admitted with blood pressure control and decreasing INR. Cardiology will also be placed on consult. Admission orders written. Undiagnosed new problem with uncertain prognosis? @ -No Drug Therapy requiring intensive monitoring for toxicity (Heparin, Nitro, Insulin, Cardizem)? @ -No Were any procedures done? @ -No Diagnosis/symptom? @ -Chest pain Acute, or Chronic, or Acute on Chronic? @ -Acute Uncomplicated (without systemic symptoms) or Complicated (systemic symptoms)? @ -Complicated with aortic aneurysm/dissection Side effects of treatment? @ -No Exacerbation, Progression, or Severe Exacerbation? @ -No Poses a threat to life or bodily function? How? (Chest pain, [place], [place], pneumonia, PE, COPD, DKA, ARF, appy, cholecystitis, CVA, Diverticulitis, Homicidal, Suicidal, threat to staff... and all critical care pts) @ -Threat to life in cardiac and aortic function - Lab Data Result diagrams: 12/28/24 18:48 12/28/24 18:48 Lab Results 12/28/24 12/28/24 12/28/24 Range/Units 18:48 18:48 18:48 WBC 25.20 H (4.50-10.00) 10*3/uL RBC 4.57 (4.10-5.20) 10*6/uL Hgb 14.2 (12.0-15.0) g/dL Hct 41.4 (37.2-46.3) % MCV 90.6 (80.0-97.0) fL MCH 31.1 (27.0-32.0) pg MCHC 34.3 (32.0-37.0) g/dL Plt Count 328 (140-440) 10*3/uL MPV 9.9 (9.5-12.2) fL Immature Gran % (Auto) 0.5 % Neutrophils % 89.7 % Lymphocytes % 4.6 % Monocytes % 4.7 % Eosinophils % 0.0 % Basophils % 0.5 % Immature Gran # 0.12 H (0.00-0.04) 10*3/uL Neutrophils # 22.60 H (1.80-7.70) 10*3/uL Lymphocytes # 1.17 (0.90-5.00) 10*3/uL Monocytes # 1.18 H (0.20-1.00) 10*3/uL Eosinophils # 0.00 L (0.04-0.35) 10*3/uL Basophils # 0.13 H (0.00-0.10) 10*3/uL PT 57.9 H (10.0-12.5) sec INR 5.8 H* (<1.2) APTT 40.3 H (22.0-30.0) sec Sodium 136 L (137-145) mmol/L Potassium 4.3 (3.5-5.1) mmol/L Chloride 101 (98-107) mmol/L Carbon Dioxide 23 (22-30) mmol/L Anion Gap 12 mmol/L BUN 8 (7-17) mg/dL Creatinine 0.46 L (0.52-1.04) mg/dL Est GFR (CKD-EPI)AfAm >90 (>60 ml/min/1.73 sqM) Est GFR (CKD-EPI)NonAf >90 (>60 ml/min/1.73 sqM) Glucose 103 H (74-99) mg/dL Calcium 9.4 (8.4-10.2) mg/dL Magnesium 1.7 (1.6-2.3) mg/dL Total Bilirubin 1.3 (0.2-1.3) mg/dL AST 34 (14-36) U/L ALT 12 (4-34) U/L Alkaline Phosphatase 116 (38-126) U/L Troponin I (0.000-0.034) ng/mL Total Protein 8.1 (6.3-8.2) g/dL Albumin 4.4 (3.5-5.0) g/dL 04// Range/Units 18:48 WBC (4.50-10.00) 10*3/uL RBC (4.10-5.20) 10*6/uL Hgb (12.0-15.0) g/dL Hct (37.2-46.3) % MCV (80.0-97.0) fL MCH (27.0-32.0) pg MCHC (32.0-37.0) g/dL Plt Count (140-440) 10*3/uL MPV (9.5-12.2) fL Immature Gran % (Auto) % Neutrophils % % Lymphocytes % % Monocytes % % Eosinophils % % Basophils % % Immature Gran # (0.00-0.04) 10*3/uL Neutrophils # (1.80-7.70) 10*3/uL Lymphocytes # (0.90-5.00) 10*3/uL Monocytes # (0.20-1.00) 10*3/uL Eosinophils # (0.04-0.35) 10*3/uL Basophils # (0.00-0.10) 10*3/uL PT (10.0-12.5) sec INR (<1.2) APTT (22.0-30.0) sec Sodium (137-145) mmol/L Potassium (3.5-5.1) mmol/L Chloride (98-107) mmol/L Carbon Dioxide (22-30) mmol/L Anion Gap mmol/L BUN (7-17) mg/dL Creatinine (0.52-1.04) mg/dL Est GFR (CKD-EPI)AfAm (>60 ml/min/1.73 sqM) Est GFR (CKD-EPI)NonAf (>60 ml/min/1.73 sqM) Glucose (74-99) mg/dL Calcium (8.4-10.2) mg/dL Magnesium (1.6-2.3) mg/dL Total Bilirubin (0.2-1.3) mg/dL AST (14-36) U/L ALT (4-34) U/L Alkaline Phosphatase (38-126) U/L Troponin I 0.382 H* (0.000-0.034) ng/mL Total Protein (6.3-8.2) g/dL Albumin (3.5-5.0) g/dL Critical Care Time Critical Care Time: Yes Disposition Clinical Impression: Chest pain Disposition: ADMITTED IP TO THIS [facility] Condition: Serious Is patient prescribed a controlled substance at d/c from ED?: No Referrals: Natividad Rios MD [Primary Care Provider] - 1-2 days Time of Disposition: 21:16
[2024-12-28 18:54] LABS: Basophils # (A) 0.13 10*3/uL (0.00-0.10); Basophils % (A) 0.5 %; HCT 41.4 % (37.2-46.3); HGB 14.2 g/dL (12.0-15.0); Lymphocytes # (A) 1.17 10*3/uL (0.90-5.00); Lymphocytes % (A) 4.6 %; MCH 31.1 pg (27.0-32.0); MCHC 34.3 g/dL (32.0-37.0); MCV 90.6 fL (80.0-97.0); Mean Platelet Volume 9.9 fL (9.5-12.2); Monocytes # (A) 1.18 10*3/uL (0.20-1.00); Monocytes % (A) 4.7 %; Neutrophils % (A) 89.7 %; Platelet Count 328 10*3/uL (140-440); RBC 4.57 10*6/uL (4.10-5.20); RDW 15.6 % (11.5-14.5)
[2024-12-28] MEDS: NITROGLYCERIN OINT 1 INCH/GM PACKET TOPICAL STA (18:54)
[2024-12-28] MEDS: ASPIRIN 81 MG PO STA (18:55)
[2024-12-28 19:09] LABS: Partial Thromboplastin Time 40.3 sec (22.0-30.0)
--- NOTE | 2024-12-28 19:12 | XR ---
EXAMINATION TYPE: XR chest 2V DATE OF EXAM: 12/28/2024 7:06 PM COMPARISON: Chest radiographs from 09/05/2024 CLINICAL INDICATION: Female, 39 years old with history of Chest Pain; [facility] TECHNIQUE: XR chest 2V Frontal and lateral views of the chest. FINDINGS: Lungs/Pleura: There is no evidence of pleural effusion, focal consolidation, or pneumothorax. Pulmonary vascularity: Unremarkable. Heart/mediastinum: Enlarged aortic arch similar 1-20 25. Cardiomediastinal silhouette is unremarkable . Musculoskeletal: No acute osseous pathology. Right shoulder fixation hardware partially visualized. I ncreased kyphotic curvature the spine similar prior. IMPRESSION: No acute cardiopulmonary disease/process. Stable appearance of the aortic arch from 09/05/2024 [facility], , 12/28/2024 7:10 PM
[2024-12-28 19:14] LABS: ALT 12 U/L (4-34); AST 34 U/L (14-36); African American GFR (CKD) >90 (>60 ml/min/1.73 sqM); Albumin 4.4 g/dL (3.5-5.0); Alkaline Phosphatase 116 U/L (38-126); Anion Gap 12 mmol/L; Blood Urea Nitrogen 8 mg/dL (7-17); Calcium 9.4 mg/dL (8.4-10.2); Carbon Dioxide 23 mmol/L (22-30); Chloride 101 mmol/L (98-107); Glucose 103 mg/dL (74-99); Magnesium 1.7 mg/dL (1.6-2.3); Non-African American GFR(CKD) >90 (>60 ml/min/1.73 sqM); Potassium 4.3 mmol/L (3.5-5.1); Prothrombin Time 57.9 sec (10.0-12.5); Sodium 136 mmol/L (137-145); Total Bilirubin 1.3 mg/dL (0.2-1.3); Total Protein 8.1 g/dL (6.3-8.2)
[2024-12-28 19:20] LABS: INR 5.8 (<1.2)
[2024-12-28] MEDS: ONDANSETRON 4 MG/2 ML VIAL IVP STA (19:38)
--- NOTE | 2024-12-28 20:28 | CT ---
EXAMINATION TYPE: CT noncontrast chest abdomen pelvis. CT angio thor/abd pel aorta DATE OF EXAM: 12/28/2024 7:58 PM COMPARISON: 04/05/2023. CLINICAL INDICATION: Female, 39 years old with history of cp, chronic disection; PHH, CHEST PAIN X 1 DAY. HX OF IA, TIA CVA, MARFANS SYNDROME, CHRONIC DISSECTION, VIRAL MENEGITIS, HEP C, 21 PNEUMOTHORAX S. ISO 370 100ML TECHNIQUE: Noncontrast CT chest abdomen pelvis followed by CT angiogram chest abdomen pelvis. Multiple axial CT images of the chest, abdomen, and pelvis were obtained prior to and after the administration of IV co ntrast. 3-D reformats and maximum intensity projection format were performed on a separate workstatio n. . Contrast used:100 mL of Isovue 370 with IV Contrast, Oral contrast used: CT DLP: 867.6 mGycm, Automated exposure control for dose reduction was used. FINDINGS: ARTERIAL VASCULATURE: Interval increase in size of ascending thoracic aorta aneurysm measuring up to 6.4 cm previously 5.8 cm. There remains chronic dissection of the ascending aorta present in the neal r vessels of the aortic arch are open. The false lumen is larger compared to the true lumen interval collapse of the true lumen extending from the aortic arch into the abdomen. The true lumen is collaps ed with reconstitution near the level of the major vessels of the abdominal aorta. The left renal art nico and the celiac access extends off a the false lumen to the left side while the SMA and right jono l artery extending off the true lumen more to the right which is smaller in caliber. The false lumen terminates near the common iliac artery and the left. The false lumen has increased in size compared to prior on 04/05/2023. The common iliac arteries and common extrahepatic arteries are patent. Extensiv e mural thrombus seen throughout the patent lumen in the abdomen. PULMONARY ARTERIAL VASCULATURE: Normal caliber. No evidence of filling defect to suggest pulmonary em bolus. VENOUS SYSTEM: Unremarkable. LUNGS/ PLEURA: No focal consolidation, pneumothorax or pleural effusion. Few scattered groundglass op acities. centrilobular emphysema changes are present. AIRWAY: Patent and unremarkable. HEART: Postsurgical changes to the aortic valve. No significant atherosclerosis of the coronary arter ies. MEDIASTINUM: No gross evidence of adenopathy. MUSCULOSKELETAL: No acute osseous abnormalities. Scoliosis changes of the spine with degeneration. Th ere is increased kyphotic curvature with angulation in the lower thoracic/lumbar spine. Partially vis ualized right shoulder fixation hardware visualized. SOFT TISSUES/LYMPH NODES: Unremarkable. Sternotomy wires are present. LOWER NECK: No significant findings. Abdomen: LIVER: Unremarkable GALLBLADDER AND BILE DUCTS: Unremarkable. PANCREAS: Unremarkable. SPLEEN: Unremarkable. ADRENAL GLANDS: Unremarkable. KIDNEYS AND URETERS: No evidence of hydronephrosis or renal calculus. The ureters are unremarkable. PELVIS BLADDER: Unremarkable REPRODUCTIVE: Unremarkable. ABDOMEN & PELVIS STOMACH AND BOWEL: No evidence of bowel obstruction. PERITONEUM/RETROPERITONEUM: No evidence of pneumoperitoneum or free fluid. MUSCULOSKELETAL: No acute osseous abnormalities right hip arthroplasty and left hip fixation hardware limiting evaluation the pelvis. Perineural cysts again seen throughout the sacrum bilaterally. Exten sive degeneration changes of the spine with scoliosis changes. LYMPH NODES: No gross evidence for lymphadenopathy. SOFT TISSUE/ABDOMINAL WALL: Unremarkable IMPRESSION: 1. Redemonstration of chronic dissection. There is interval increase in size of ascending thoracic a raffy dilation up to 6.4 cm on today's exam which is thought to be a majority of false lumen. The neal r vessels of the aortic arch and abdomen are patent. The true lumen is thought to be collapsed extend ing just past the origin of the aortic arch extending into the abdomen which is new from 04/05/2023. Th e false lumen in the abdomen is much larger on today's exam.. The major vessels of the abdominal aort a do have contrast within them. 2. Few scattered groundglass opacities in the left lower lung for pneumonia. 3. Mild emphysema. 4. Degeneration changes of the spine with increased kyphosis near the thoracolumbar junction similar prior. No evidence of fracture. [facility], , 12/28/2024 8:25 PM
[2024-12-28] MEDS ORDERED: NITROGLYCERIN SL TABS 0.4 MG TAB SUBLINGUAL PRN (21:17)
[2024-12-28] MEDS ORDERED: ENALAPRILAT 1.25 MG/ML 1 ML VIAL IVP PRN (21:26)
[2024-12-28] MEDS: PHYTONADIONE 2 MG in SODIUM CHLORIDE 0.9% 50 ML IVPB ONE (21:45)
[2024-12-28] MEDS: METOPROLOL TARTRATE 25 MG TAB PO SCH (21:53)
[2024-12-29] MEDS: ASPIRIN 325 MG TAB PO SCH (08:11)
--- NOTE | 2024-12-29 08:28 | P.GSCN ---
History of Present Illness Consult date: 12/29/24 Reason for Consult: Aortic aneurysm/dissection Requesting physician: Joseph Mercado History of present illness: This is a 39-year-old female who follows outpatient with Dr. Carl Childers and who has a public guardian. She has a previous medical history of multiple medical problems including chronic aortic aneurysm with chronic dissection, coronary artery disease with four-vessel CABG, aortic and mitral valve replacements as a child, heart failure, stroke with residual right-sided weakness, Marfan syndrome as well as Arnold Chiari malformation, multiple spontaneous pneumothoraces status post left upper lobectomy, scoliosis and pectus excavatum, seizure disorder, splenectomy, current tobacco dependence as well as marijuana and methamphetamine use, suicide attempt by overdose in 2017, and noncompliance. She presented to [facility] emergency room last night with complaints of sudden onset of chest pain. Apparently she has had intermittent episodes of chest pain in the past. In the emergency room she denied any other symptoms. Her home medication list includes Coumadin. Chest x-ray in the emergency room revealed no acute cardiopulmonary process. Lab work revealed WBC 25.2, hemoglobin 14.2, INR 5.8, creatinine 0.46, and troponins were elevated with initial troponin 0.382 elevating as high as 0.754. CT of the chest was completed redemonstrating chronic dissection, however there was interval i ncrease in the size of the ascending thoracic aorta dilatation to 6.4 cm from 5.8 cm previously which was thought to be majority of the false lumen, true lumen thought to be collapsed extending just past the origin of the aortic arch and extending into the abdomen which was new from exam April 2023, groundglass opacities in the left lower lung, emphysema, and similar degenerative changes of the spine. Due to increase in size of the thoracic aortic dilatation Dr. Aguilar was contacted by the emergency room physicians for treatment recommendations. Dr. Aguilar reviewed the patient's films and recommended transfer to [facility] or [facility], unfortunately patient refused to go anywhere else. The patient was admitted here for blood pressure control and treatment of her elevated INR. Review of Systems Review of systems and history obtained from the chart, when going to interview and assessed the patient she was sleeping, when woken up she was irritated at being woken up and refused to answer any questions, attempting to fall back asleep - Cardiovascular Reports as per HPI, Reports chest pain Past Medical History Past Medical History: Coronary Artery Disease (CAD), Heart Failure, COPD, CVA/TIA, Liver Disease, Neurologic Disorder, Osteoarthritis (OA), Pneumonia, Seizure Disorder Additional Past Medical History / Comment(s): Stroke with residual right-sided weakness 2017, TIAs, marfan's syndrome, ArnoldChiari malformation, spontaneous pneumothorax x 21, scoliosis and pectus excavatum secondary to Marfan's, chronic back pain, bilateral leg pain, gastric ulcers, sinus infections, STATED HAS POOR CIRCULATION, viral meningitis, HEP C. History of Any Multi-Drug Resistant Organisms: MRSA Year Discovered:: 05/05/2010 MDRO Source:: back per patient Past Surgical History: Cardiac Valve Replacement, Coronary Bypass/CABG, Joint Replacement Additional Past Surgical History / Comment(s): right foot corrective surgery, R shoulder surgery following injury, CABG x4 vessel, aortic root graft, aortic/mitral valve replaced as child (2 separate surgeries last 10 years old), tiffani lens removed. spleenectomy 2018, L upper lobectomy d/t pneumothoraxs. Past Anesthesia/Blood Transfusion Reactions: No Reported Reaction Past Psychological History: Anxiety, Depression Additional Psychological History / Comment(s): Pt resides in an apartment. She has a public guardian. Pt uses no assistive device. She states she gets to appts by bus. Pt is disabled. Had a suicide attempt by overdose in August 2017 Smoking Status: Current every day smoker Past Alcohol Use History: None Reported Additional Past Alcohol Use History / Comment(s): Patient is smoker of two packs per day since she was 10 years of age. Past Drug Use History: Marijuana, Methamphetamine, Prescription Drug Abuse Additional Drug Use History / Comment(s): Pt states she has used heroin, triny lisa/crack and marijuana . Pt states she has not used heroin, cocaine or crack since leaving rehab 12/13/18. - Past Family History Father Additional Family Medical History / Comment(s): Father is with history of AIDS. Mother Family Medical History: Diabetes Mellitus Additional Family Medical History / Comment(s): Mother at age 49 from liver cirrhosis secondary to alcohol abuse. Brother(s) Additional Family Medical History / Comment(s): Patient has one brother with no major medical problems. Medications and Allergies Home Medications Medication Instructions Recorded Confirmed Type Warfarin [Coumadin] 7.5 mg PO DAILY 12/28/24 12/28/24 History Allergies Allergy/AdvReac Type Severity Reaction Status Date / Time Penicillins Allergy Rash/Hives Verified 12/28/24 19:53 chlordiazepoxide HCl AdvReac SEE COMMENT Verified 12/28/24 19:53 [From Librium] ketorolac [From Toradol] AdvReac ANXIETY Verified 12/28/24 19:53 morphine AdvReac Unknown Verified 12/28/24 19:53 prochlorperazine edisylate AdvReac PANIC Verified 12/28/24 19:53 [From Compazine] ATTACK prochlorperazine maleate AdvReac PANIC Verified 12/28/24 19:53 [From Compazine] ATTACK Surgical - Exam Vital Signs Temp Pulse Resp BP Pulse Ox 98.4 F 94 20 162/93 95 12/28/24 18:29 12/28/24 18:29 12/28/24 18:29 12/28/24 18:29 12/28/24 18:29 CONSTITUTIONAL: Sleeping but awoken briefly for exam, appears comfortable, appears very malnourished/cachectic, no acute distress EYES: Pupils equal, round, reactive to light, normal ocular movement ENT: Moist mucous membranes without oral lesions present, poor dentition NECK: No masses, no bruits, trachea midline RESPIRATORY: Lungs sounds diminished bilaterally. Respirations even, nonlabored. Currently on room air with oxygen saturation 92%. Strong cough. Pectus excavatum, scoliosis presents CARDIOVASCULAR: S1, S2 present. Regular rate and rhythm, sinus rhythm on telemetry. Palpable peripheral pulses bilaterally. No edema present. No calf pain or tenderness noted GASTROINTESTINAL: Abdomen soft, nontender, nondistended. Active bowel sounds present 4 quadrants. GENITOURINARY: Deferred INTEGUMENTARY: Skin is warm and dry NEUROLOGIC: Cranial nerves II through XII intact MUSKULOSKELETAL: Able to move all extremities PSYCHIATRIC: Unwilling to answer questions Results - Labs 12/28/24 18:48 12/28/24 18:48 Abnormal Lab Results - Last 24 Hours (Table) 12/28/24 12/28/24 12/28/24 Range/Units 18:48 18:48 18:48 WBC 25.20 H (4.50-10.00) 10*3/uL Immature Gran # 0.12 H (0.00-0.04) 10*3/uL Neutrophils # 22.60 H (1.80-7.70) 10*3/uL Monocytes # 1.18 H (0.20-1.00) 10*3/uL Eosinophils # 0.00 L (0.04-0.35) 10*3/uL Basophils # 0.13 H (0.00-0.10) 10*3/uL PT 57.9 H (10.0-12.5) sec INR 5.8 H* (<1.2) APTT 40.3 H (22.0-30.0) sec Sodium 136 L (137-145) mmol/L Creatinine 0.46 L (0.52-1.04) mg/dL Glucose 103 H (74-99) mg/dL Troponin I (0.000-0.034) ng/mL 12/28/24 12/28/24 12/29/24 Range/Units 18:48 21:56 00:54 WBC (4.50-10.00) 10*3/uL Immature Gran # (0.00-0.04) 10*3/uL Neutrophils # (1.80-7.70) 10*3/uL Monocytes # (0.20-1.00) 10*3/uL Eosinophils # (0.04-0.35) 10*3/uL Basophils # (0.00-0.10) 10*3/uL PT (10.0-12.5) sec INR (<1.2) APTT (22.0-30.0) sec Sodium (137-145) mmol/L Creatinine (0.52-1.04) mg/dL Glucose (74-99) mg/dL Troponin I 0.382 H* 0.545 H* 0.754 H* (0.000-0.034) ng/mL Diabetes panel 12/28/24 Range/Units 18:48 Sodium 136 L (137-145) mmol/L Potassium 4.3 (3.5-5.1) mmol/L Chloride 101 (98-107) mmol/L Carbon Dioxide 23 (22-30) mmol/L BUN 8 (7-17) mg/dL Creatinine 0.46 L (0.52-1.04) mg/dL Glucose 103 H (74-99) mg/dL Calcium 9.4 (8.4-10.2) mg/dL AST 34 (14-36) U/L ALT 12 (4-34) U/L Alkaline Phosphatase 116 (38-126) U/L Total Protein 8.1 (6.3-8.2) g/dL Albumin 4.4 (3.5-5.0) g/dL Calcium panel 12/28/24 Range/Units 18:48 Calcium 9.4 (8.4-10.2) mg/dL Albumin 4.4 (3.5-5.0) g/dL Pituitary panel 12/28/24 Range/Units 18:48 Sodium 136 L (137-145) mmol/L Potassium 4.3 (3.5-5.1) mmol/L Chloride 101 (98-107) mmol/L Carbon Dioxide 23 (22-30) mmol/L BUN 8 (7-17) mg/dL Creatinine 0.46 L (0.52-1.04) mg/dL Glucose 103 H (74-99) mg/dL Calcium 9.4 (8.4-10.2) mg/dL Adrenal panel 12/28/24 Range/Units 18:48 Sodium 136 L (137-145) mmol/L Potassium 4.3 (3.5-5.1) mmol/L Chloride 101 (98-107) mmol/L Carbon Dioxide 23 (22-30) mmol/L BUN 8 (7-17) mg/dL Creatinine 0.46 L (0.52-1.04) mg/dL Glucose 103 H (74-99) mg/dL Calcium 9.4 (8.4-10.2) mg/dL Total Bilirubin 1.3 (0.2-1.3) mg/dL AST 34 (14-36) U/L ALT 12 (4-34) U/L Alkaline Phosphatase 116 (38-126) U/L Total Protein 8.1 (6.3-8.2) g/dL Albumin 4.4 (3.5-5.0) g/dL - Imaging Chest x-ray: report reviewed, image reviewed CT scan - chest: report reviewed, image reviewed Assessment and Plan Assessment: Chest pain, troponin elevation Hypercoagulability, elevated INR Leukocytosis History of chronic aortic aneurysm with chronic dissection Coronary artery disease with four-vessel CABG Aortic and mitral valve replacements as a child Heart failure Stroke with residual right-sided weakness Marfan syndrome as well as Arnold Chiari malformation Multiple spontaneous pneumothoraces status post left upper lobectomy Scoliosis and pectus excavatum Seizure disorder Splenectomy Current tobacco dependence Marijuana and methamphetamine use Suicide attempt by overdose in 2017 Noncompliance Plan: The patient was seen and examined laying in bed on the cardiac stepdown unit in no acute distress. Patient was sleeping, woken up, irritated that she was woken up, refused to answer questions and attempted to go right back to sleep. Chart /diagnostics reviewed. The case was discussed with Dr. Aguilar. No surgical intervention planned from our standpoint. Was recommended that patient be transferred to [facility] or [facility], patient refused. Recommend controlling blood pressure, getting INR under control. Echocardiogram ordered for today. Medical management of other comorbidities per internal medicine, cardiology. Thank you for this consult. Please call us with any further questions. I have personally seen and examined the patient, performed the documentation and the assessment and plan as written. Number of minutes spent on the visit: 30. Milagros Wasserman NP-C
[2024-12-29] MEDS: HYDROmorphone 0.5 MG/0.5 ML SYRINGE IVP PRN ×2 (08:38→13:17)
[2024-12-29] MEDS: LOSARTAN 25 MG TAB PO SCH (08:38)
[2024-12-29 09:39] LABS: HCT 43.1 % (37.2-46.3); HGB 14.2 g/dL (12.0-15.0); MCH 30.8 pg (27.0-32.0); MCHC 32.9 g/dL (32.0-37.0); MCV 93.5 fL (80.0-97.0); Mean Platelet Volume 10.9 fL (9.5-12.2); Platelet Count 350 10*3/uL (140-440); RBC 4.61 10*6/uL (4.10-5.20); RDW 16.2 % (11.5-14.5); WBC 10.82 10*3/uL (4.50-10.00)
--- NOTE | 2024-12-29 09:44 | P.CRDCN ---
History of Present Illness Consult date: 12/29/24 History of present illness: - . 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 She used to follow at [facility] but has not been there in nearly 2 or even 3 years. She is here complaining of sharp pain in the left side of the chest. The quality of pain seems atypical troponin is up 2.7 and was 0.3 and 0.4. Cannot exclude this being related to her dissection of the aorta. CT angio shows that there is increase in the size of the false lumen. But there is no active tear that is evident. Patient was advised to be transferred to [facility] but she has adamantly refused. I talked to her at length today but she still refuses to go but she is willing to think about it we will speak to the legal guardian and initiate the transfer. I have personally spoken to the patient at length talk to Dr. Richardson her admitting doctor and the nurse Marie who will communicate with the public guardian and see if we can initiate the transfer to [facility]. This patient's pain in the chest seems to be very atypical at this time. I would not recommend any intervention here because we do not have in the facility to deal with such an extensive aortic dissection. I am recommending this patient to be transferred to [place] and I have stated this very clearly to her. Her INR was up to 5.8 she takes Coumadin. This has been reversed with vitamin K we are awaiting the result of it PT/INR that was drawn 15 minutes ago. We will optimize blood pressure control, reverse the Coumadin check the PT/INR and also her elevated white count is a concern I am recommending a septic workup including blood cultures send urine analysis and culture. Prognosis remains poor. RELEVANT PAST MEDICAL HISTORY: Marfan syndrome with aortic valve replacement, aortic root replacement as well probably and a chronic thoracoabdominal dissection. Details of her cardiac surgery are not available patient has other issues in the form of depression drug use previous suicide attempt. Seizure disorder spontaneous pneumothorax. She has scoliosis pectus excavated him and hepatitis C. She has history of endocarditis details unavailable history of IV drug abuse and tobacco abuse. MEDICATIONS: Coumadin but has not been taking any other medicines ALLERGIES: Penicillin chlordiazepoxide ketorolac morphine prochlorperazine please see the chart. REVIEW OF SYSTEMS: Complains of sharp pains in the chest randomly. Has not been taking any medications has not been to [facility] where she was following up at least in the last 2 to 3 years. She last saw Dr. Briggs in our office more than 6 years ago.. PHYSICIAL EXAM: Blood pressure is 114/70 earlier it was 140/80. No JVD, S1-S2 heard normally there is a short systolic murmur. Prosthetic valve clicks are not very well heard. Lungs reveal bilateral scattered rhonchi abdomen is soft lower extremities reveal diminished pulses no edema Central nervous system no focal deficits.. IMPRESSION: 1. Chronic thoracoabdominal dissection with some increase in false lumen size noted on the CT angiogram. 2. History of Marfan syndrome with aortic valve and root replacement on Coumadin but currently has coagulopathy with INR of 5.8.. 3. Coagulopathy secondary to Coumadin INR 5.8 received vitamin K awaiting repeat pro time INR. 4. Depression with history of suicidal ideation in the past. 5. History of drug abuse. 6. Chest pain atypical but elevated troponin could be related to aortic dissect ion also. RECOMMENDATIONS: I am recommending that we will check PT/INR, patient received vitamin K. Optimize BP control with addition of amlodipine and losartan. Continue beta-madelaine. I will also do a septic workup since white count is elevated with blood cultures and urine analysis and culture. Check echocardiogram I am recommending patient to be transferred to [facility] discussed my thoughts in detail with the patient and admitting doctor and nurse. Prognosis remains poor. Past Medical History Past Medical History: Heart Failure, COPD, CVA/TIA, Liver Disease, Neurologic Disorder, Osteoarthritis (OA), Pneumonia, Seizure Disorder Additional Past Medical History / Comment(s): Stroke with residual right-sided weakness 2017, TIAs, marfan's syndrome, ArnoldChiari malformation, spontaneous pneumothorax x 21, scoliosis and pectus excavatum secondary to Marfan's, chronic back pain, bilateral leg pain, gastric ulcers, sinus infections, STATED HAS POOR CIRCULATION, viral meningitis, HEP C. 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 spleenectomy 2018, L upper lobectomy d/t pneumothoraxs. Past Anesthesia/Blood Transfusion Reactions: No Reported Reaction Past Psychological History: Anxiety Additional Psychological History / Comment(s): Pt resides in an apartment. She has a public guardian. Pt uses no assistive device. She states she gets to appts by bus. Pt is disabled. Smoking Status: Current every day smoker Past Alcohol Use History: None Reported Additional Past Alcohol Use History / Comment(s): Patient is smoker of two packs per day since she was 10 years of age. Past Drug Use History: Marijuana, Methamphetamine, Prescription Drug Abuse Additional Drug Use History / Comment(s): Pt states she has used heroin, cocaine/crack and marijuana . Pt states she has not used heroin, cocaine or crack since leaving rehab 12/13/18. - Past Family History Father Additional Family Medical History / Comment(s): Father is with history of AIDS. Mother Family Medical History: Diabetes Mellitus Additional Family Medical History / Comment(s): Mother at age 49 from liver cirrhosis secondary to alcohol abuse. Brother(s) Additional Family Medical History / Comment(s): Patient has one brother with no major medical problems. Medications and Allergies Home Medications Medication Instructions Recorded Confirmed Type Warfarin [Coumadin] 7.5 mg PO DAILY 12/28/24 12/28/24 History Allergies Allergy/AdvReac Type Severity Reaction Status Date / Time Penicillins Allergy Rash/Hives Verified 12/28/24 19:53 chlordiazepoxide HCl AdvReac SEE COMMENT Verified 12/28/24 19:53 [From Librium] ketorolac [From Toradol] AdvReac ANXIETY Verified 12/28/24 19:53 morphine AdvReac Unknown Verified 12/28/24 19:53 prochlorperazine edisylate AdvReac PANIC Verified 12/28/24 19:53 [From Compazine] ATTACK prochlorperazine maleate AdvReac PANIC Verified 12/28/24 19:53 [From Compazine] ATTACK Physical Exam Vitals: Vital Signs Temp Pulse Pulse Resp BP BP Pulse Ox 12/29/24 03:51 68 18 112/71 92 L 12/29/24 00:44 97.3 F L 69 18 141/89 97 12/29/24 00:00 70 18 151/84 98 12/28/24 21:44 85 18 132/80 98 12/28/24 19:00 101 H 15 152/76 98 12/28/24 18:31 101 H 16 98 12/28/24 18:29 98.4 F 94 20 162/93 95 Intake and Output 12/28/24 12/29/24 12/29/24 22:59 06:59 14:59 Other: Voiding Method Toilet # Voids 1 Weight 45.359 kg 41.3 kg Results 12/28/24 18:48 12/28/24 18:48 Cardiac Enzymes 12/28/24 12/28/24 12/28/24 Range/Units 18:48 18:48 21:56 AST 34 (14-36) U/L Troponin I 0.382 H* 0.545 H* (0.000-0.034) ng/mL 12/29/24 Range/Units 00:54 AST (14-36) U/L Troponin I 0.754 H* (0.000-0.034) ng/mL Coagulation 12/28/24 Range/Units 18:48 PT 57.9 H (10.0-12.5) sec APTT 40.3 H (22.0-30.0) sec CBC 12/28/24 Range/Units 18:48 WBC 25.20 H (4.50-10.00) 10*3/uL RBC 4.57 (4.10-5.20) 10*6/uL Hgb 14.2 (12.0-15.0) g/dL Hct 41.4 (37.2-46.3) % Plt Count 328 (140-440) 10*3/uL Comprehensive Metabolic Panel 12/28/24 Range/Units 18:48 Sodium 136 L (137-145) mmol/L Potassium 4.3 (3.5-5.1) mmol/L Chloride 101 (98-107) mmol/L Carbon Dioxide 23 (22-30) mmol/L BUN 8 (7-17) mg/dL Creatinine 0.46 L (0.52-1.04) mg/dL Glucose 103 H (74-99) mg/dL Calcium 9.4 (8.4-10.2) mg/dL AST 34 (14-36) U/L ALT 12 (4-34) U/L Alkaline Phosphatase 116 (38-126) U/L Total Protein 8.1 (6.3-8.2) g/dL Albumin 4.4 (3.5-5.0) g/dL Current Medications Generic Name Dose Route Start Last Admin Trade Name Freq PRN Reason Stop Dose Admin Amlodipine Besylate 5 mg 12/29/24 21:00 Amlodipine 5 Mg Tab PO HS [facility] Aspirin 81 mg 12/30/24 09:00 Aspirin 81 Mg PO DAILY [facility] Enalaprilat 1.25 mg 12/28/24 21:26 Enalaprilat 1.25 Mg/Ml 1 Ml Vial IVP Q4HR PRN Blood Pressure - High Hydromorphone HCl 0.5 mg 12/29/24 08:22 12/29/24 08:38 Hydromorphone 0.5 Mg/0.5 Ml Syringe IVP 0.5 mg Q6HR PRN Administration Pain Losartan Potassium 25 mg 12/29/24 09:00 12/29/24 08:38 Losartan 25 Mg Tab PO 25 mg DAILY [facility] Administration Metoprolol Tartrate 25 mg 12/28/24 21:30 12/29/24 08:11 Metoprolol Tartrate 25 Mg Tab PO 25 mg BID [facility] Administration Nitroglycerin 0.4 mg 12/28/24 21:17 Nitroglycerin Sl Tabs 0.4 Mg Tab SUBLINGUAL Q5M PRN Chest Pain Intake and Output 12/28/24 12/29/24 12/29/24 22:59 06:59 14:59 Other: Voiding Method Toilet # Voids 1 Weight 45.359 kg 41.3 kg 12/28/24 18:48 12/28/24 18:48
[2024-12-29 09:52] LABS: ALT 12 U/L (4-34); African American GFR (CKD) >90 (>60 ml/min/1.73 sqM); Anion Gap 9 mmol/L; Blood Urea Nitrogen 9 mg/dL (7-17); Carbon Dioxide 27 mmol/L (22-30); Chloride 101 mmol/L (98-107); Glucose 94 mg/dL (74-99); Non-African American GFR(CKD) >90 (>60 ml/min/1.73 sqM); Sodium 137 mmol/L (137-145)
[2024-12-29 09:55] LABS: INR 1.6 (<1.2); Prothrombin Time 16.7 sec (10.0-12.5)
[2024-12-29 09:58] LABS: AST 40 U/L (14-36); Albumin 4.5 g/dL (3.5-5.0); Alkaline Phosphatase 96 U/L (38-126); Potassium 5.4 mmol/L (3.5-5.1); Total Bilirubin 1.2 mg/dL (0.2-1.3); Total Protein 8.4 g/dL (6.3-8.2)
[2024-12-29 10:04] LABS: Chol/HDL Ratio 3.01 Ratio; LDL Cholesterol,Calculated 75.9 mg/dL (0.0-131.0)
[2024-12-29 12:48] VITALS: RESP 16
[2024-12-29] MEDS: NICOTINE 21MG/24HR PATCH TRANSDERM SCH (14:47)
--- NOTE | 2024-12-29 19:28 | P.HPIM ---
History of Present Illness This is a pleasant 39 years old female with past medical history of multiple medical problems as below including history of Marfan syndrome, aortic and mitral valve replacement since childhood, IV drug abuse, hepatitis C endocarditi s and aortic valve replacement on Coumadin as she is on mechanical valve also she has history of coronary artery disease and four-vessel CABG. CHF stroke with right hemiparesis and Arnold-Chiari malformation. Presents because of chest pain. No other specific GI or urinary symptoms or headache or dizziness Blood pressure was slightly elevated overnight 151/84 currently 112/71 she is not tachycardic or febrile. Labs showing leukocytosis at 25,000 and rest of CBC is unremarkable INR is 5.8, she is on Coumadin and she received vitamin K BMP LFT were unremarkable Troponin elevated 0.3, 0.5 and 0.7. Chest x-ray showed no acute process. Aortic angiography with CT showing chronic dissection there is interval increase in size of the ascending thoracic aortic dilatation up to 6.4 cm which is thoug ht to be a majority of false lumen. The major vessels of the aortic arch and abdominal patent. The true lumen is thought to be collapsed extending just past the origin of the aortic arch extending into the abdomen which is new from 04/05/2023. There is also mild emphysema and few scattered groundglass opacity in the left lower lung for pneumonia Degenerative changes of the spine. I discussed the case with cardiology team in the morning who recommended to transfer the patient to [facility]. I talked to Dr. Guzman who is aortic surgeon at [facility] and I reviewed the case with him in details including the images of the CAT scan in details. After careful assessment and looking at the images he recommended to transfer the patient [facility] however he told me is not an emergency and patient can be transferred per transfer team tomorrow. Patient herself she did not want to go [facility] saying each time she goes they do not think I explained to the patient this time is different as it is more extensive of the lesion into abdominal aorta. This coincides with her presentation she states that she came because of chest pain in her lower a chest radiating to the upper abdomen which coincides with the area of the aortic tear. Patient now agreeable to be transferred. Also earlier I spoke to her guardian Mr. Juan Ramon Troy and he requested to transfer her [facility] per instructions. Currently she feels comfortable with no significant chest pain but she is requesting to increase the frequency of IV Dilaudid into 3 hours which she has done. No dyspnea. No abdominal symptoms like vomiting diarrhea. No urinary complaint. No headache dizziness weakness numbness. Patient vital stable, blood pressure slightly elevated on blood pressure medication was added by drink waiter, currently improved No fever and she has significant leukocytosis 25,000 came down to 10.2 K, the suspicion of infection is very low and no need for antibiotics Review of Systems Review of systems CONSTITUTIONAL: No fever, no malaise, no fatigue. HEENT: No recent visual problems or hearing problems. Denied any sore throat. CARDIOVASCULAR: No orthopnea, PND, no palpitations, no syncope. PULMONARY: No shortness of breath, no cough, no hemoptysis. GASTROINTESTINAL: No diarrhea, no nausea, no vomiting, no abdominal pain. Normoactive bowel sounds. NEUROLOGICAL: No headaches, no weakness, no numbness. HEMATOLOGICAL: Denies any bleeding or petechiae. GENITOURINARY: Denies any burning micturition, frequency, or urgency. MUSCULOSKELETAL/RHEUMATOLOGICAL: Denies any joint pain, swelling, or any muscle pain. ENDOCRINE: Denies any polyuria or polydipsia. Past Medical History Past Medical History: Heart Failure, COPD, CVA/TIA, Liver Disease, Neurologic Disorder, Osteoarthritis (OA), Pneumonia, Seizure Disorder Additional Past Medical History / Comment(s): Stroke with residual right-sided weakness 2017, TIAs, marfan's syndrome, ArnoldChiari malformation, spontaneous pneumothorax x 21, scoliosis and pectus excavatum secondary to Marfan's, chronic back pain, bilateral leg pain, gastric ulcers, sinus infections, STATED HAS POOR CIRCULATION, viral meningitis, HEP C. 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 spleenectomy 2018, L upper lobectomy d/t pneumothoraxs. Past Anesthesia/Blood Transfusion Reactions: No Reported Reaction Past Psychological History: Anxiety Additional Psychological History / Comment(s): Pt resides in an apartment. She has a public guardian. Pt uses no assistive device. [place]. Pt is disabled. Smoking Status: Current every day smoker Past Alcohol Use History: None Reported Additional Past Alcohol Use History / Comment(s): Patient is smoker of two packs per day since she was 10 years of age. Past Drug Use History: Marijuana, Methamphetamine, Prescription Drug Abuse Additional Drug Use History / Comment(s): Pt states she has used heroin, cocaine/crack and marijuana . Pt states she has not used heroin, cocaine or crac k since leaving rehab 12/13/18. - Past Family History Father Additional Family Medical History / Comment(s): Father is with history of AIDS. Mother Family Medical History: Diabetes Mellitus Additional Family Medical History / Comment(s): Mother at age 49 from liver cirrhosis secondary to alcohol abuse. Brother(s) Additional Family Medical History / Comment(s): Patient has one brother with no major medical problems. Medications and Allergies Home Medications Medication Instructions Recorded Confirmed Type Warfarin [Coumadin] 7.5 mg PO DAILY 12/28/24 12/28/24 History Allergies Allergy/AdvReac Type Severity Reaction Status Date / Time Penicillins Allergy Rash/Hives Verified 12/28/24 19:53 chlordiazepoxide HCl AdvReac SEE COMMENT Verified 12/28/24 19:53 [From Librium] ketorolac [From Toradol] AdvReac ANXIETY Verified 12/28/24 19:53 morphine AdvReac Unknown Verified 12/28/24 19:53 prochlorperazine edisylate AdvReac PANIC Verified 12/28/24 19:53 [From Compazine] ATTACK prochlorperazine maleate AdvReac PANIC Verified 12/28/24 19:53 [From Compazine] ATTACK Physical Exam Vitals: Vital Signs Temp Pulse Pulse Resp BP BP Pulse Ox 12/29/24 03:51 68 18 112/71 92 L 12/29/24 00:44 97.3 F L 69 18 141/89 97 12/29/24 00:00 70 18 151/84 98 12/28/24 21:44 85 18 132/80 98 12/28/24 19:00 101 H 15 152/76 98 12/28/24 18:31 101 H 16 98 12/28/24 18:29 98.4 F 94 20 162/93 95 Intake and Output 12/28/24 12/29/24 12/29/24 22:59 06:59 14:59 Other: Voiding Method Toilet # Voids 1 Weight 45.359 kg 41.3 kg GENERAL: The patient is alert and oriented x3, not in any acute distress. Well developed, well nourished. HEENT: Pupils are round and equally reacting to light. EOMI. No scleral icterus. No conjunctival pallor. Normocephalic, atraumatic. No pharyngeal erythema. No thyromegaly. CARDIOVASCULAR: S1 and S2 present. No murmurs, rubs, or gallops. PULMONARY: Chest is clear to auscultation, no wheezing , no crackles. ABDOMEN: Soft, nontender, nondistended, normoactive bowel sounds. No palpable organomegaly. MUSCULOSKELETAL: No joint swelling or deformity. EXTREMITIES: No cyanosis, clubbing, or pedal edema. NEUROLOGICAL: Gross neurological examination did not reveal any focal deficits. SKIN: No rashes. no petechiae. Results CBC & Chem 7: 12/29/24 08:44 12/29/24 08:44 Labs: Abnormal Lab Results - Last 24 Hours (Table) 12/28/24 12/28/24 12/28/24 Range/Units 18:48 18:48 18:48 WBC 25.20 H (4.50-10.00) 10*3/uL Immature Gran # 0.12 H (0.00-0.04) 10*3/uL Neutrophils # 22.60 H (1.80-7.70) 10*3/uL Monocytes # 1.18 H (0.20-1.00) 10*3/uL Eosinophils # 0.00 L (0.04-0.35) 10*3/uL Basophils # 0.13 H (0.00-0.10) 10*3/uL PT 57.9 H (10.0-12.5) sec INR 5.8 H* (<1.2) APTT 40.3 H (22.0-30.0) sec Sodium 136 L (137-145) mmol/L Creatinine 0.46 L (0.52-1.04) mg/dL Glucose 103 H (74-99) mg/dL Troponin I (0.000-0.034) ng/mL 12/28/24 12/28/24 12/29/24 Range/Units 18:48 21:56 00:54 WBC (4.50-10.00) 10*3/uL Immature Gran # (0.00-0.04) 10*3/uL Neutrophils # (1.80-7.70) 10*3/uL Monocytes # (0.20-1.00) 10*3/uL Eosinophils # (0.04-0.35) 10*3/uL Basophils # (0.00-0.10) 10*3/uL PT (10.0-12.5) sec INR (<1.2) APTT (22.0-30.0) sec Sodium (137-145) mmol/L Creatinine (0.52-1.04) mg/dL Glucose (74-99) mg/dL Troponin I 0.382 H* 0.545 H* 0.754 H* (0.000-0.034) ng/mL Thrombosis Risk Factor Assmnt - Choose All That Apply Any of the Below Risk Factors Present?: No Other Risk Factors: No Other congenital or acquired thrombophilia - If yes, enter type in comment: No Thrombosis Risk Factor Assessment Level: Very Low Risk Assessment and Plan Assessment: Dissecting aortic aneurysm, acute on chronic, currently the ascending thoracic aortic dilatation is 6.4 cm majority is false lumen with the true lumen is collapsed but patent branches of the thoracic antibiotic middle aorta. Possible left lower lobe pneumonia felt very unlikely most likely patient have some groundglass opacities versus atelectasis. No need for antibiotics Coagulopathy secondary to Coumadin status post vitamin K Elevated troponin Mildly elevated high blood pressure, currently improved Marfan syndrome Aortic and mitral valve replacement History of IV drug abuse, endocarditis and mechanical valve replacement Chronic CHF, unknown he ejection fraction History of stroke with right hemiparesis Arnold-Chiari malformation Plan: Continue the current antihypertensive medication per drink waiter, currently on Norvasc 5 mg metoprolol 25 mg and losartan 25 mg Coumadin on hold for high risk of bleeding from her dissecting aortic aneurysm. At the same time she is at risk of thrombosis given her mechanical valve however the risk of anticoagulation is more than the benefits at this point and it was held. Cardiology is also on the case Patient is accepted for transfer to [facility] pending bed availability. Most likely is going to be tomorrow. Monitor blood pressure and keep it on the low side INR improved, leukocytosis improved. No need for antibiotics Patient is on aspirin 81 mg per drink waiter Problem guardian is updated Cardiology, vascular surgery team are on consult GI prophylaxis: Pepcid DVT prophylaxis: Mechanical Prognosis definitely is guarded
[2024-12-29] MEDS: FAMOTIDINE 20 MG/2 ML VIAL IV SCH (20:07)
[2024-12-29] MEDS: amLODIPine 5 MG TAB PO SCH (20:07)
[2024-12-29 21:41] LABS: Appearance,Urine Clear (Clear); Bacteria,Urine Rare /hpf; Bilirubin,Urine Negative (Negative); Blood,Urine Negative (Negative); Color,Urine Colorless; Glucose,Urine (UA) Negative (Negative); Ketones,Urine Negative (Negative); Leukocyte Esterase,Urine Small (Negative); Mucus,Urine Rare /hpf; Nitrite,Urine Negative (Negative); PH, Urine 7.5 (5.0-8.0); Protein,Urine Negative (Negative); RBC,Urine 2 /hpf (0-5); Specific Gravity,Urine 1.006 (1.001-1.035); Squamous Epithelial Cell,Urine 4 /hpf (0-4); Urobilinogen,Urine <2.0 mg/dL (<2.0); WBC,Urine 6 /hpf (0-5)
[2024-12-30 07:38] LABS: Basophils # (A) 0.12 10*3/uL (0.00-0.10); Basophils % (A) 1.5 %; Eosinophils # (A) 0.32 10*3/uL (0.04-0.35); Eosinophils % (A) 4.1 %; HCT 40.2 % (37.2-46.3); HGB 13.2 g/dL (12.0-15.0); Lymphocytes # (A) 2.07 10*3/uL (0.90-5.00); Lymphocytes % (A) 26.7 %; MCH 30.4 pg (27.0-32.0); MCHC 32.8 g/dL (32.0-37.0); MCV 92.6 fL (80.0-97.0); Mean Platelet Volume 10.4 fL (9.5-12.2); Monocytes # (A) 0.75 10*3/uL (0.20-1.00); Monocytes % (A) 9.7 %; Neutrophils # (A) 4.48 10*3/uL (1.80-7.70); Neutrophils % (A) 57.7 %; Platelet Count 352 10*3/uL (140-440); RBC 4.34 10*6/uL (4.10-5.20); RDW 15.9 % (11.5-14.5); WBC 7.76 10*3/uL (4.50-10.00)
[2024-12-30 08:16] LABS: ALT 9 U/L (4-34); AST 23 U/L (14-36); African American GFR (CKD) >90 (>60 ml/min/1.73 sqM); Albumin 3.3 g/dL (3.5-5.0); Alkaline Phosphatase 77 U/L (38-126); Anion Gap 6 mmol/L; Bilirubin, Delta 0.4 mg/dL (0.0-0.2); Bilirubin,Unconjugated 0.3 mg/dL (0.0-1.1); Blood Urea Nitrogen 7 mg/dL (7-17); Calcium 8.8 mg/dL (8.4-10.2); Carbon Dioxide 27 mmol/L (22-30); Chloride 105 mmol/L (98-107); Glucose 82 mg/dL (74-99); Magnesium 1.8 mg/dL (1.6-2.3); Non-African American GFR(CKD) >90 (>60 ml/min/1.73 sqM); Potassium 4.6 mmol/L (3.5-5.1); Sodium 138 mmol/L (137-145); Total Bilirubin 0.7 mg/dL (0.2-1.3); Total Protein 6.6 g/dL (6.3-8.2)
[2024-12-30] MEDS: HYDROmorphone 2 MG/ML 1 ML SYRINGE IVP PRN (08:51)
[2024-12-30] MEDS: ASPIRIN 81 MG PO SCH (08:51)
--- NOTE | 2024-12-30 09:03 | P.GSCN ---
History of Present Illness Consult date: 12/30/24 Reason for Consult: Abdominal aortic aneurysm Requesting physician: Joseph Mercado History of present illness: This a pleasant 39-year-old female with multiple comorbidities, and who has a public guardian. She has a previous medical history of multiple medical problems including chronic aortic aneurysm with chronic dissection, coronary artery disease with four-vessel CABG, aortic and mitral valve replacements as a child, heart failure, stroke with residual right-sided weakness, Marfan syndrome as well as Arnold Chiari malformation, multiple spontaneous pneumothoraces status post left upper lobectomy, scoliosis and pectus excavatum, seizure disorder, splenectomy, current tobacco dependence as well as marijuana and methamphetamine use, suicide attempt by overdose in 2017, and noncompliance. She presented to [facility] emergency room day night with complaints of sudden onset of chest pain. She had multiple imaging done, vascular surgery was consulted for aortic aneurysm. Apparently she has had intermittent episodes of chest pain in the past. In the emergency room she denied any other symptoms. Her home medication list includes Coumadin. Chest x-ray in the emergency room revealed no acute cardiopulmonary process. Lab work revealed WBC 25.2, hemoglobin 14.2, INR 5.8, creatinine 0.46, and troponins were elevated with initial troponin 0.382 elevating as high as 0.754. CT of the chest was completed redemonstrating chronic dissection, however there was interval increase in the size of the ascending thoracic aorta dilatation to 6.4 cm from 5.8 cm previously which was thought to be majority of the false lumen, true lumen thought to be collapsed extending just past the origin of the aortic arch and extending into the abdomen which was new from exam April 2023, groundglass opacities in the left lower lung, emphysema, and similar degenerative changes of the spine. Due to increase in size of the thoracic aortic dilatation Dr. Aguilar was contacted by the emergency room physicians for treatment recommendations. Dr. Aguilar reviewed the patient's films and recommended transfer to [facility] or [facility], however patient had refused transfer yesterday. Patient currently states she continues to have chest pain mostly left side of chest and upper abdomen. She denies any shortness of breath at this time. No abdominal pain or back pain. Review of Systems A 14 point review systems was completed all pertinent positives and negatives as stated in the HPI. Past Medical History Past Medical History: Heart Failure, COPD, CVA/TIA, Liver Disease, Neurologic Disorder, Osteoarthritis (OA), Pneumonia, Seizure Disorder Additional Past Medical History / Comment(s): Stroke with residual right-sided weakness 2017, TIAs, marfan's syndrome, ArnoldChiari malformation, spontaneous pneumothorax x 21, scoliosis and pectus excavatum secondary to Marfan's, chronic back pain, bilateral leg pain, gastric ulcers, sinus infections, STATED HAS POOR CIRCULATION, viral meningitis, HEP C. History of Any Multi-Drug Resistant Organisms: MRSA Year Discovered:: 05/05/2010 MDRO Source:: back per patient Past Surgical History: Cardiac Valve Replacement, Coronary Bypass/CABG, Joint Replacement Additional Past Surgical History / Comment(s): right foot corrective surgery, R shoulder surgery following injury, CABG x4 vessel, aortic root graft, aortic/mitral valve replaced as child (2 separate surgeries last 10 years old), tiffani lens removed. spleenectomy 2018, L upper lobectomy d/t pneumothoraxs. Past Anesthesia/Blood Transfusion Reactions: No Reported Reaction Past Psychological History: Anxiety Additional Psychological History / Comment(s): Pt resides in an apartment. She has a public guardian. Pt uses no assistive device. She states she gets to [facility] by bus. Pt is disabled. Smoking Status: Current every day smoker Past Alcohol Use History: None Reported Additional Past Alcohol Use History / Comment(s): Patient is smoker of two packs per day since she was 10 years of age. Past Drug Use History: Marijuana, Methamphetamine, Prescription Drug Abuse Additional Drug Use History / Comment(s): Pt states she has used heroin, cocaine/crack and marijuana . Pt states she has not used heroin, cocaine or crack since leaving rehab 12/13/18. - Past Family History Father Additional Family Medical History / Comment(s): Father is with history of AIDS. Mother Family Medical History: Diabetes Mellitus Additional Family Medical History / Comment(s): Mother at age 49 from liver cirrhosis secondary to alcohol abuse. Brother(s) Additional Family Medical History / Comment(s): Patient has one brother with no major medical problems. Medications and Allergies Home Medications Medication Instructions Recorded Confirmed Type Warfarin [Coumadin] 7.5 mg PO DAILY 12/28/24 12/28/24 History Allergies Allergy/AdvReac Type Severity Reaction Status Date / Time Penicillins Allergy Rash/Hives Verified 12/28/24 19:53 chlordiazepoxide HCl AdvReac SEE COMMENT Verified 12/28/24 19:53 [From Librium] ketorolac [From Toradol] AdvReac ANXIETY Verified 12/28/24 19:53 morphine AdvReac Unknown Verified 12/28/24 19:53 prochlorperazine edisylate AdvReac PANIC Verified 12/28/24 19:53 [From Compazine] ATTACK prochlorperazine maleate AdvReac PANIC Verified 12/28/24 19:53 [From Compazine] ATTACK Surgical - Exam Vital Signs Temp Pulse Resp BP Pulse Ox 98.4 F 94 20 162/93 95 12/28/24 18:29 12/28/24 18:29 12/28/24 18:29 12/28/24 18:29 12/28/24 18:29 CONSTITUTIONAL: Sleeping but awoken briefly for exam, appears comfortable, appears very malnourished/cachectic, no acute distress EYES: Pupils equal, round, reactive to light, normal ocular movement ENT: Moist mucous membranes without oral lesions present, poor dentition NECK: No masses, no bruits, trachea midline RESPIRATORY: Lungs sounds diminished bilaterally. Respirations even, nonlabored. Currently on room air with oxygen saturation 92%. Pectus excavatum, scoliosis presents CARDIOVASCULAR: S1, S2 present. Regular rate and rhythm, sinus rhythm on telemetry. Palpable peripheral pulses bilaterally. No edema present. No calf pain or tenderness noted GASTROINTESTINAL: Abdomen soft, nontender, nondistended. Active bowel sounds present 4 quadrants. GENITOURINARY: Deferred INTEGUMENTARY: Skin is warm and dry NEUROLOGIC: Alert and oriented. MUSKULOSKELETAL: Able to move all extremities PSYCHIATRIC: Patient is cooperative, answers questions. However does seem very concerned with her guardian and her state aide. Results - Labs 12/30/24 07:13 12/30/24 07:13 Abnormal Lab Results - Last 24 Hours (Table) 12/29/24 12/29/24 12/29/24 Range/Units 08:44 08:44 08:44 WBC 10.82 H (4.50-10.00) 10*3/uL PT 16.7 H (10.0-12.5) sec INR 1.6 H (<1.2) Potassium 5.4 H (3.5-5.1) mmol/L Creatinine 0.43 L (0.52-1.04) mg/dL AST 40 H (14-36) U/L Total Protein 8.4 H (6.3-8.2) g/dL Ur Leukocyte Esterase (Negative) Urine WBC (0-5) /hpf Urine Bacteria (None) /hpf Urine Mucus (None) /hpf 12/29/24 Range/Units 20:15 WBC (4.50-10.00) 10*3/uL PT (10.0-12.5) sec INR (<1.2) Potassium (3.5-5.1) mmol/L Creatinine (0.52-1.04) mg/dL AST (14-36) U/L Total Protein (6.3-8.2) g/dL Ur Leukocyte Esterase Small H (Negative) Urine WBC 6 H (0-5) /hpf Urine Bacteria Rare H (None) /hpf Urine Mucus Rare H (None) /hpf Diabetes panel 12/29/24 12/29/24 Range/Units 05:48 08:44 Sodium 137 (137-145) mmol/L Potassium 5.4 H (3.5-5.1) mmol/L Chloride 101 (98-107) mmol/L Carbon Dioxide 27 (22-30) mmol/L BUN 9 (7-17) mg/dL Creatinine 0.43 L (0.52-1.04) mg/dL Glucose 94 (74-99) mg/dL Calcium 9.0 (8.4-10.2) mg/dL AST 40 H (14-36) U/L ALT 12 (4-34) U/L Alkaline Phosphatase 96 (38-126) U/L Total Protein 8.4 H (6.3-8.2) g/dL Albumin 4.5 (3.5-5.0) g/dL Triglycerides 78.00 (0.00-149.00) mg/dL HDL Cholesterol 45.50 (40.00-60.00) mg/dL Calcium panel 12/29/24 Range/Units 08:44 Calcium 9.0 (8.4-10.2) mg/dL Albumin 4.5 (3.5-5.0) g/dL Pituitary panel 12/29/24 Range/Units 08:44 Sodium 137 (137-145) mmol/L Potassium 5.4 H (3.5-5.1) mmol/L Chloride 101 (98-107) mmol/L Carbon Dioxide 27 (22-30) mmol/L BUN 9 (7-17) mg/dL Creatinine 0.43 L (0.52-1.04) mg/dL Glucose 94 (74-99) mg/dL Calcium 9.0 (8.4-10.2) mg/dL Adrenal panel 12/29/24 Range/Units 08:44 Sodium 137 (137-145) mmol/L Potassium 5.4 H (3.5-5.1) mmol/L Chloride 101 (98-107) mmol/L Carbon Dioxide 27 (22-30) mmol/L BUN 9 (7-17) mg/dL Creatinine 0.43 L (0.52-1.04) mg/dL Glucose 94 (74-99) mg/dL Calcium 9.0 (8.4-10.2) mg/dL Total Bilirubin 1.2 (0.2-1.3) mg/dL AST 40 H (14-36) U/L ALT 12 (4-34) U/L Alkaline Phosphatase 96 (38-126) U/L Total Protein 8.4 H (6.3-8.2) g/dL Albumin 4.5 (3.5-5.0) g/dL Assessment and Plan Assessment: 1. Chest pain, with troponin elevation 2. History of chronic thoracic aortic aneurysm with chronic dissection 3. Coronary artery disease with history of CABG 4. Aortic and mitral valve replacement as a child 5. Heart failure 6. Stroke with residual right sided weakness 7. Marfan syndrome 8. Arnold-Chiari syndrome Scoliosis 7. Seizure disorder 8. History of splenectomy 10. Chronic tobacco dependence 11. Marijuana and methamphetamine use Plan: The on-call vascular surgeon Dr. Calderon was called and had recommended transfer to tertiary center and consultation to cardiothoracic surgery, apparently patient had refused initially. Again recommendation would be to transfer to tertiary center for cardiothoracic evaluation and treatment. There is no indication for any vascular surgical intervention. Patient reports she is now willing to be transferred. Will notify patient's nurse. Continue with recommendations from cardiology and cardiothoracic surgery. Vascular surgery will sign off at this time. The impression and plan of care has been dictated as directed. I performed a history and examination of this patient, discussed the same with the dictator. I agree with the dictator's note ,documented as a scribe. Any additional findings or plans will be noted.
[2024-12-30] MEDS: ALPRAZolam 0.25 MG TAB PO PRN (09:24)
[2024-12-30 12:34] VITALS: BP 106/65; PULSE 59; TEMP 97.3
--- NOTE | 2024-12-30 12:50 | P.PN ---
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 She used to follow at [facility] but has not been there in nearly 2 or even 3 years. She is here complaining of sharp pain in the left side of the chest. The quality of pain seems atypical troponin is up 2.7 and was 0.3 and 0.4. Cannot exclude this being related to her dissection of the aorta. CT angio shows that there is increase in the size of the false lumen. But there is no active tear that is evident. Patient was advised to be transferred to [facility] but she has adamantly refused. I talked to her at length today but she still refuses to go but she is willing to think about it we will speak to the legal guardian and initiate the transfer. I have personally spoken to the patient at length talk to Dr. Richardson her admitting doc falguni and the nurse Marie who will communicate with the public guardian and see if we can initiate the transfer to [facility]. This patient's pain in the chest seems to be very atypical at this time. I would not recommend any intervention here because we do not have in the facility to deal with such an extensive aortic dissection. I am recommending this patient to be transferred to [place] and I have stated this very clearly to her. Her INR was up to 5.8 she takes Coumadin. This has been reversed with vitamin K we are awaiting the result of it PT/INR that was drawn 15 minutes ago. We will optimize blood pressure control, reverse the Coumadin check the PT/INR and also her elevated white count is a concern I am recommending a septic workup including blood cultures send urine analysis and culture. Prognosis remains poor. RELEVANT PAST MEDICAL HISTORY: Marfan syndrome with aortic valve replacement, aortic root replacement as well probably and a chronic thoracoabdominal disse ction. Details of her cardiac surgery are not available patient has other issues in the form of depression drug use previous suicide attempt. Seizure disorder spontaneous pneumothorax. She has scoliosis pectus excavated him and hepatitis C. She has history of endocarditis details unavailable history of IV drug abuse and tobacco abuse. 12/30/2024 Patient examined this morning at bedside. Patient does report feeling anxious this morning. She denies any shortness of breath. She reports ongoing left- sided chest discomfort. Plans are underway for transfer to [facility]. Vital signs are stable. Blood pressure 106/65. PHYSICAL EXAM: VITAL SIGNS: Reviewed. GENERAL: Well-developed in no acute distress. NECK: Supple. No JVD or thyromegaly LUNGS: Respirations even and unlabored. Lungs essentially clear to auscultation bilaterally. HEART: Regular rate and rhythm. S1 and S2 heard. EXTREMITIES: Normal range of motion. No clubbing or cyanosis. Peripheral pulses intact. No lower extremity edema ASSESSMENT: 1. Chronic thoracoabdominal dissection with some increase in false lumen size noted on the CT angiogram. 2. History of Marfan syndrome with aortic valve and root replacement on Coumadin but currently has coagulopathy with INR of 5.8.. 3. Coagulopathy secondary to Coumadin INR 5.8 received vitamin K awaiting repeat pro time INR. 4. Depression with history of suicidal ideation in the past. 5. History of drug abuse. 6. Chest pain atypical but elevated troponin could be related to aortic dissection also. PLAN: Continue current cardiac medications including amlodipine, aspirin, losartan, and metoprolol Patient to be transferred to [facility] Nurse practitioner note has been reviewed by physician. Signing provider agrees with the documented findings, assessment, and plan of care documented by [employer] [employer] as a scribe. Objective - Vital Signs Vital signs: Vital Signs Temp 97.3 F L 12/30/24 12:33 Pulse 59 L 12/30/24 12:33 Resp 16 12/30/24 12:33 BP 106/65 12/30/24 12:33 Pulse Ox 99 12/30/24 12:33 FiO2 Intake & Output 12/29/24 12/30/24 12/30/24 18:59 06:59 18:59 Intake Total 358 257 140 Output Total 100 Balance 358 157 140 Weight 41.2 kg Intake: IV 20 20 Invasive Line 1 10 10 Invasive Line 2 10 10 Oral 358 237 120 Output: Urine 100 Other: Voiding Method Toilet Toilet Toilet # Voids 1 0 # Bowel Movements 1 - Labs CBC & Chem 7: 12/30/24 07:13 12/30/24 07:13 Labs: Abnormal Lab Results - Last 24 Hours (Table) 12/29/24 12/30/2425 Range/Units 20:15 07:13 07:13 Basophils # 0.12 H (0.00-0.10) 10*3/uL Creatinine 0.45 L (0.52-1.04) mg/dL Delta Bilirubin 0.4 H (0.0-0.2) mg/dL Albumin 3.3 L (3.5-5.0) g/dL Ur Leukocyte Esterase Small H (Negative) Urine WBC 6 H (0-5) /hpf Urine Bacteria Rare H (None) /hpf Urine Mucus Rare H (None) /hpf
--- NOTE | 2024-12-30 15:42 | CA ---
Transthoracic Echo Report Name: Arlin Gilmore Age: 39 Gender: F : 1985 Exam Date: 12/30/2024 07:43 Exam Location: [facility] Ht (in): 71 Wt (lb): 100 Ordering Physician: Joseph Mercado DO Attending/Referring Phys: Major Donor Coordinator Rocio Somers, AMRIK Procedure CPT: Indications: CP Cardiac Hx: Discecting Aortic aneurysm, CHF, AV and MV replacement, CABG, Endocarditis, COPD, Marfan syndrome Technical Quality: Good Contrast 1: Total Dose (mL): Contrast 2: Total Dose (mL): MEASUREMENTS (Male / Female) Normal Values 2D ECHO LV Diastolic Diameter PLAX 5.4 cm 4.2 - 5.9 / 3.9 - 5.3 cm LV Systolic Diameter PLAX 4.2 cm IVS Diastolic Thickness 1.1 cm 0.6 - 1.0 / 0.6 - 0.9 cm LVPW Diastolic Thickness 1.0 cm 0.6 - 1.0 / 0.6 - 0.9 cm LV Relative Wall Thickness 0.4 RV Internal Dim ED PLAX 2.8 cm LVOT Diameter 1.4 cm LA Systolic Diameter LX 5.3 cm 3.0 - 4.0 / 2.7 - 3.8 cm LV Diastolic Volume MOD 4C 106.9 cm??? LV Systolic Volume MOD 4C 68.5 cm??? LV Ejection Fraction MOD 4C 36.0 % LV Diastolic Length 4C 7.1 cm LV Systolic Length 4C 6.3 cm LV Diastolic Volume MOD 2C 78.6 cm??? LV Systolic Volume MOD 2C 50.8 cm??? LV Ejection Fraction MOD 2C 35.4 % LV Diastolic Length 2C 7.3 cm LV Systolic Length 2C 6.4 cm LA Volume 143.4 cm??? 18 - 58 / 22 - 52 cm??? LA Volume Index 96.9 cm???/m??? 16 - 28 cm???/m??? DOPPLER AV Peak Velocity 225.5 cm/s AV Peak Gradient 20.3 mmHg AV Mean Velocity 174.9 cm/s AV Mean Gradient 13.0 mmHg AV Velocity Time Integral 43.6 cm AI Peak Velocity 568.7 cm/s AI Peak Gradient 129.4 mmHg AI Pressure Half Time 532.3 ms LVOT Peak Velocity 187.7 cm/s LVOT Peak Gradient 14.1 mmHg LVOT Velocity Time Integral 34.5 cm LVOT Stroke Volume 51.3 cm??? LVOT Stroke Volume Index 32.6 ml/m??? AV Area Cont Eq vti 1.2 cm??? AV Area Cont Eq pk 1.2 cm??? MV Peak Velocity 157.6 cm/s MV Peak Gradient 9.9 mmHg MV Mean Velocity 87.2 cm/s MV Mean Gradient 3.4 mmHg MV Velocity Time Integral 44.3 cm MV Area PHT 1.9 cm??? Mitral E Point Velocity 99.3 cm/s Mitral A Point Velocity 72.4 cm/s Mitral E to A Ratio 1.4 MV Deceleration Time 352.1 ms TR Peak Velocity 239.3 cm/s TR Peak Gradient 22.9 mmHg Right Atrial Pressure 5.0 mmHg Pulmonary Artery Systolic Pressu 27.9 mmHg Right Ventricular Systolic Press 27.9 mmHg FINDINGS Left Ventricle Left ventricular ejection fraction is estimated at 35-40 %. Mildly increased septal wall thickness. Global left ventricular hypokinesis. Right Ventricle Right ventricle not well visualized. Right Atrium Moderate right atrial dilatation. Left Atrium Severely increased left atrial diameter. Severely increased left atrial volume. Moderately increased left atrial area. Mitral Valve Mitral valve replacement. Mitral valve prolapse. No mitral stenosis. Mild mitral regurgitation. Aortic Valve Aortic valve replacement. Moderate aortic regurgitation. No aortic stenosis. Tricuspid Valve Tricuspid prolapse. No tricuspid stenosis. Mild tricuspid regurgitation. Pulmonic Valve Structurally normal pulmonic valve. No pulmonic stenosis. [id number] pulmonic regurgitation. Pericardium No pericardial effusion. Aorta Aortic annulus normal. Ascending aorta not well visualized. CONCLUSIONS Left ventricular ejection fraction 35 to 40% with global hypokinesis Mildly increased left ventricular thickness Moderate right atrial dilation Moderate to severe left atrial dilation Mild mitral regurgitation Mild tricuspid regurgitation RVSP 28 Previewed by: Dr. Bradley Collado DO (Electronically Signed) Final Date: 30 December 2024 15:42
[2024-12-30] MEDS ORDERED: FAMOTIDINE 20 MG TAB PO SCH (21:00)
--- NOTE | 2024-12-30 22:01 | P.DS ---
Providers Date of admission: 12/28/24 21:18 Attending physician: Pete Richardson MD Consults: 12/28/24 21:18 Consult Physician Urgent Consulting Provider: Terry Briggs Consult Reason/Comments: trop.3, aorta aneurysm and dissection Do you want consulting provider notified?: Yes 12/28/24 21:20 Consult Physician Urgent Consulting Provider: Nova Aguilar Consult Reason/Comments: aortic aneurysm/dissection Do you want consulting provider notified?: Already Contacted 12/28/24 21:21 Consult Physician Routine Consulting Provider: Geronimo Calderon Consult Reason/Comments: aortic anneurysm Do you want consulting provider notified?: Already Contacted Primary care physician: [facility] Hospital Course: Diagnoses: Dissecting aortic aneurysm, acute on chronic, currently the ascending thoracic aortic dilatation is 6.4 cm majority is false lumen with the true lumen is collapsed but patent branches of the thoracic antibiotic middle aorta. Possible left lower lobe pneumonia felt very unlikely most likely patient have some groundglass opacities versus atelectasis. No need for antibiotics Coagulopathy secondary to Coumadin status post vitamin K Elevated troponin Mildly elevated high blood pressure, currently improved Marfan syndrome Aortic and mitral valve replacement History of IV drug abuse, endocarditis and mechanical valve replacement Chronic CHF, unknown he ejection fraction History of stroke with right hemiparesis Arnold-Chiari malformation Hospital course: This is a pleasant 39 years old female with past medical history of multiple medical problems as below including history of Marfan syndrome, aortic and mitral valve replacement since childhood, IV drug abuse, hepatitis C endocarditis and aortic valve replacement on Coumadin as she is on mechanical valve also she has history of coronary artery disease and four-vessel CABG. CHF stroke with right hemiparesis and Arnold-Chiari malformation. Presents because of chest pain. she had Aortic angiography with CT showing chronic dissection there is interval increase in size of the ascending thoracic aortic dilatation up to 6.4 cm which is thought to be a majority of false lumen. The major vessels of the aortic arch and abdominal patent. The true lumen is thought to be collapsed extending just past the origin of the aortic arch extending into the abdomen which is new from 04/05/2023. There is also mild emphysema and few scattered groundglass opacity in the left lower lung for pneumonia I discussed the case with city treasurer Dr. Castro yesterday who recommended to transfer the patient [facility]. I called to the transfer center and Dr. Guzman who kindly accepted the patient. Today called as but was not available and patient was transferred in stable condition but guarded prognosis Her chest/upper abdomen pain was controlled with Dilaudid 1 mg. Hemodynamically stable Patient evaluated by all consultants who recommended to be transferred. Including cardiothoracic surgery team and vascular surgery team who discussed the case with me requesting patient to be transferred today. Physical exam Gen: patient is a AAOx3, no distress CVS: S1-S2, RRR, no murmur Lungs: B/L CTA, no wheezing -Abdomen: soft, no distention, epigastric tenderness, positive bowel sounds Extremity: no leg edema or induration Time spent more than 35 minutes Patient Condition at Discharge: Serious Plan - Discharge Summary New Discharge Prescriptions: No Action Warfarin [Coumadin] 7.5 mg PO DAILY Discharge Medication List Warfarin [Coumadin] 7.5 mg PO DAILY 12/28/24 [History] Follow up Appointment(s)/Referral(s): Natividad Rios MD [Primary Care Provider] - 1-2 days Discharge Disposition: TRANSFER TO [facility]
== END 2024-12-30 13:14 | disposition short-term general hospital (02) | DRG 197 ==
LOC: EC 18:23 → 3SCARD 21:18
PROVIDERS: ADMIT Internal Medicine; ATTEND Internal Medicine
DX: I71.019 Dissection of thoracic aorta, unspecified (principal); J18.9 Pneumonia, unspecified organism; I69.351 Hemiplegia and hemiparesis following cerebral infarction affecting right dominant side; Q87.40 Marfan syndrome, unspecified; D68.59 Other primary thrombophilia; I50.9 Heart failure, unspecified; F19.11 Other psychoactive substance abuse, in remission; F32.A Depression, unspecified; G40.909 Epilepsy, unspecified, not intractable, without status epilepticus; I71.40 Abdominal aortic aneurysm, without rupture, unspecified; J44.0 Chronic obstructive pulmonary disease with (acute) lower respiratory infection; J43.9 Emphysema, unspecified; F17.210 Nicotine dependence, cigarettes, uncomplicated; R03.0 Elevated blood-pressure reading, without diagnosis of hypertension; T45.515A Adverse effect of anticoagulants, initial encounter; I25.10 Atherosclerotic heart disease of native coronary artery without angina pectoris; Q07.00 Arnold-Chiari syndrome without spina bifida or hydrocephalus; Z95.2 Presence of prosthetic heart valve; Z95.3 Presence of xenogenic heart valve; Z79.01 Long term (current) use of anticoagulants; Z86.14 Personal history of Methicillin resistant Staphylococcus aureus infection; Z95.1 Presence of aortocoronary bypass graft; Z90.81 Acquired absence of spleen; Z90.2 Acquired absence of lung [part of]; Z91.51 Personal history of suicidal behavior; Z91.199 Patient's noncompliance with other medical treatment and regimen due to unspecified reason; Z86.79 Personal history of other diseases of the circulatory system; Z87.11 Personal history of peptic ulcer disease
CPT/HCPCS: 36415; 71046; 71275; 74174; 80048; 80053; 80061; 80076; 81001; 83735; 84484; 85025; 85027; 85610; 85730; 87040; 93005; 93306; 96365; 96375; 99291

== ENCOUNTER → 2025-03-21 | Outpatient (CLI) | payer OTHER ==
[2025-03-21 21:03] LABS: INR 3.04 sec (0.93-1.11); Prothrombin Time 31.4 sec (9.9-11.9)
== END | disposition home or self-care (01) ==
LOC: LABWHC1 12:43
PROVIDERS: ATTEND Internal Medicine
DX: Z95.2 Presence of prosthetic heart valve (principal); Z98.890 Other specified postprocedural states; Z86.79 Personal history of other diseases of the circulatory system
CPT/HCPCS: 36415; 85610

== ENCOUNTER → 2025-03-26 | Outpatient (CLI) | payer OTHER ==
[2025-03-26 16:19] LABS: INR 2.0 (<1.2); Prothrombin Time 20.0 sec (10.0-12.5)
== END | disposition home or self-care (01) ==
LOC: LABWHC1 15:44
PROVIDERS: ATTEND Internal Medicine
DX: Z95.2 Presence of prosthetic heart valve (principal); Z98.890 Other specified postprocedural states; Z86.79 Personal history of other diseases of the circulatory system
CPT/HCPCS: 36415; 85610